=== PATIENT | female | born 1960 | race Caucasian/White ===

== ENCOUNTER 2018-01-30 15:20 | Inpatient (IN) | payer MEDICARE, MEDICAID ==
--- NOTE | 2018-01-30 15:42 | ED Physician Chart ---
ED Chief Complaint/HPI - Patient Information Date Seen:: 01/30/18 Time Seen:: 15:30 Chief Complaint:: AMS History of Present Illness:: onset x 2 days of AMS with abnormal lab tests this am; no report of trauma, H/As , neck pain, C/P, SOB, Abd. Pain, A/N/V/D/C, fever, chills, or urinary s/s Allergies:: Allergies Allergy/AdvReac Type Severity Reaction Status Date / Time No Known Allergies Allergy Verified 01/30/18 15:37 Historian:: Patient, EMS Review:: Nurse's Note Reviewed, Old Chart Reviewed, EMS run form Reviewed ED Review of Systems - Review of Systems General/Constitutional: No fever, No chills, No weight loss, No weakness, No diaphoresis, No edema, No loss of appetite Skin: No skin lesions, No rash, No bruising Head: No headache, No light-headedness Eyes: No loss of vision, No pain, No diplopia ENT: No earache, No nasal drainage, No sore throat, No tinnitus Neck: No neck pain, No swelling, No thyromegaly, No stiffness, No mass noted Cardio Vascular: No chest pain, No palpitations, No PND, No orthopnea, No edema Pulmonary: No SOB, No cough, No sputum, No wheezing GI: No nausea, No vomiting, No diarrhea, No pain, No melena, No hematochezia, No constipation, No hematemesis G/U: No dysuria, No frequency, No hematuria, No nacturia Kit Assembler: No vaginal discharge, No abnormal vaginal bleed, No contraction Musculoskeletal: No bone or joint pain, No back pain, No muscle pain Endocrine: No polyuria, No polydipsia Psychiatric: No prior psych history, No depression, No anxiety, No suicidal ideation, No homicidal ideation, No auditory hallucination, No visual hallucination Hematopoietic: No bruising, No lymphadenopathy Allergic/Immuno: No urticaria, No angioedema Neurological: No syncope, No focal symptoms, No weakness, No paresthesia, No headache, No seizure, No dizziness, Confusion, No vertigo ED Past Medical History - Past Medical History Obtainable: Yes Past Medical History: HTN, CAD, Asthma/COPD, CVA/TIA, Dyslipidemia, PUD/GERD, Arthritis, Dementia Family History: Diabetes Melitus, HTN Social History: Non Smoker, No Alcohol, No Drug Use, Single, Care Facility Surgical History: PEG/GTube Psychiatricy History: Dementia Medication: Reviewed ED Physical Exam - Physical Examination General/Constitutional: Awake, Well-developed, well-nourished, Alert, No distress, GCS 15, Non-toxic appearing, Ambulatory Head: Atraumatic Eyes: Lids, conjuctiva normal, PERRL, EOMI Skin: Nl inspection, No rash, No skin lesions, No ecchymosis, Well hydrated, No lymphadenopathy Other Skin comments:: + Cellulitis with gangrene ENMT: External ears, nose nl, TM canals nl, Nasal exam nl, Lips, teeth, gums nl , Oropharynx nl, Tonsils nl Neck: Nontender, Full ROM w/o pain, No JVD, No nuchal rigidity, No bruit, No mass, No stridor Respiratory: Nl effort/Exclusion, Clear to Auscultation, No Wheeze/Rhonchi/Rales Cardio Vascular: RRR, No murmur, gallop, rubs, NL S1 S2, Carotid/Femoral/Distal pulses equal bilaterally GI: No tenderness/rebounding/guarding, No organomegaly, No hernia, Normal BS's, Nondistended, No mass/bruits, No McBurney tenderness : No CVA tenderness Extremities: No tenderness or effusion, Full ROM, normal strength in all extremities, No edema, Normal digits & nails Neuro/Psych: Alert/oriented, DTR's symmetric, Normal sensory exam, Normal motor strength, Judgement/insight normal, Mood normal, Normal gait, No focal deficits Misc: Normal back, No paraspinal tenderness ED Septic Shock - . Is Septic Shock (SBP<90, OR Lactate>4 mmol\L) present?: No
[2018-01-30 16:22] LABS: % BASOPHILS 1.5 % (0.0-2.0); % EOSINOPHILS 0.9 % (0.0-5.0); % LYMPHOCYTES 15.9 % (20.0-50.0); % MONOCYTES 5.5 % (2.0-10.0); % NEUTROPHILS 76.2 % (40.0-80.0); BASOPHILE ABSOLUTE 0.1 Th/cumm (0-0.2); HEMATOCRIT 23.4 % (41.0-60); LYMPHOCYTE ABSOLUTE 0.7 Th/cmm (1.5-3.0); MEAN CELL VOLUME 79.9 fl (81-100); MEAN CORPUSCULAR HEMOGLOBIN 25.7 pg (27.0-31.0); MEAN CORPUSCULAR HGB CONC 32.2 pg (28.0-36.0); MEAN PLATELET VOLUME 6.7 fl; MONOCYTE ABSOLUTE 0.2 Th/cmm (0.3-1.0); NEUTROPHILE ABSOLUTE 3.4 Th/cmm (1.8-8.0); PLATELET COUNT 310 Th/cmm (150-400); RED BLOOD COUNT 2.92 Mil/cmm (3.80-5.10); RED CELL DISTRIBUTION WIDTH 21.1 % (11.5-20.0); WHITE BLOOD COUNT 4.4 Th/cmm (4.8-10.8)
[2018-01-30 16:30] LABS: INR 1.06 (0.5-1.4)
[2018-01-30 17:09] LABS: TROP I 0.02 ng/mL (0.01-0.05)
[2018-01-30 17:21] LABS: ALB/GLOB RATIO 0.7 (1.0-1.8); ALBUMIN 2.5 gm/dL (3.7-5.3); ALKALINE PHOSPHATASE 109 U/L (34-104); ANION GAP 5.6 (7.0-16.0); BILIRUBIN,TOTAL 0.7 mg/dL (0.3-1.0); BUN - UREA NITROGEN 12 mg/dL (7-25); CALCIUM SERUM 8.4 mg/dL (8.6-10.3); CARBON DIOXIDE 40.5 mEq/L (21.0-31.0); CHLORIDE 94 mEq/L (98-107); CREATININE - SERUM 0.3 mg/dL (0.6-1.2); CREATININE KINASE 39 U/L (30-223); GFR AFRICAN-AMERICAN > 60.0 ml/min (>90); GFR NON AFRICAN-AMERICAN > 60.0 ml/min; GLUCOSE 85 mg/dL (70-105); POTASSIUM SERUM 3.1 mEq/L (3.5-5.1); SGOT 19 U/L (13-39); SGPT/ALT 26 U/L (7-52); SODIUM SERUM 137 mEq/L (136-145); TOTAL PROTEIN,SERUM 6.3 gm/dL (6.0-8.3)
[2018-01-30 17:25] LABS: HEMOGLOBIN 7.5 gm/dL (12-16)
[2018-01-30] MEDS ORDERED: Potassium Chloride Elixir 20 mEq /15 mL UDC GT ONE (18:03)
[2018-01-30] MEDS ORDERED: Potassium Chloride Elixir 20 mEq /15 mL UDC ONE (18:17)
[2018-01-30 18:23] LABS: URINE MICROSCOPIC INDICATED? YES; URINE SOURCE MIDSTREAM
[2018-01-30 18:32] LABS: URINE BILIRUBIN NEGATIVE (NEGATIVE); URINE BLOOD NEGATIVE (NEGATIVE); URINE GLUCOSE (UA) NEGATIVE (NEGATIVE); URINE KETONE NEGATIVE (NEGATIVE); URINE LEUKOCYTE ESTERASE NEGATIVE (NEGATIVE); URINE NITRATE NEGATIVE (NEGATIVE); URINE PH 8.5 (4.6 - 8.0); URINE PROTEIN NEGATIVE (NEGATIVE); URINE UROBILINOGEN >=8.0 E.U./dL (0.2 - 1.0)
[2018-01-30 19:00] LABS: URINE CLARITY CLEAR (CLEAR); URINE COLOR YELLOW
[2018-01-30 19:03] LABS: URINE BACTERIA NONE SEEN /hpf (NONE SEEN); URINE EPITHELIAL CELLS NONE SEEN /lpf (FEW); URINE RBC NONE SEEN /hpf (0-5); URINE WBC NONE SEEN /hpf (0-5)
[2018-01-30] MEDS ORDERED: Albuterol/Ipratropium Neb 3 ML AERS HHN PRN (21:11)
[2018-01-30] MEDS ORDERED: Acetaminophen 500 MG TAB PO PRN ×2 (21:16→22:03)
[2018-01-30] MEDS ORDERED: ONDANSETRON HCL GT PRN (22:03)
[2018-01-30] MEDS ORDERED: Magnesium Hydroxide (MOM) 30 mL UDC GT PRN (22:03)
[2018-01-30] MEDS ORDERED: Hydrocodone/APAP 10 mg/325 mg Tab GT PRN (22:03)
[2018-01-30] MEDS ORDERED: Acetaminophen 500 MG TAB GT PRN (22:03)
[2018-01-30] MEDS ORDERED: Lactulose 10 Gm/15 mL 30mL UDC PO PRN (22:03)
[2018-01-30 23:15] LABS: WHITE BLOOD COUNT 4.3 Th/cmm (4.8-10.8)
[2018-01-30] MEDS: Albuterol/Ipratropium Neb 3 ML AERS HHN SCH (23:18)
[2018-01-30 23:20] LABS: HEMATOCRIT 23.3 % (41.0-60); MEAN CORPUSCULAR HEMOGLOBIN 26.4 pg (27.0-31.0); MEAN PLATELET VOLUME 6.6 fl; PLATELET COUNT 324 Th/cmm (150-400); RED BLOOD COUNT 2.92 Mil/cmm (3.80-5.10); RED CELL DISTRIBUTION WIDTH 21.7 % (11.5-20.0)
[2018-01-30 23:22] LABS: HEMOGLOBIN 7.7 gm/dL (12-16); MANUAL DIFF REQUIRED? YES
[2018-01-30] MEDS: Hydrocodone/APAP 10 mg/325 mg Tab GT PRN (23:41)
[2018-01-31] MEDS: Chlorhexidine Gluconate 0.12% 480mL Bottle MM SCH ×3 (00:03→21:45)
[2018-01-31] MEDS: Albuterol/Ipratropium Neb 3 ML AERS HHN SCH ×4 (01:00→18:35)
[2018-01-31 03:05] LABS: BAND NEUTROPHILE 3 % (0-10); EOSINOPHIL 1 % (0-5); LYMPHOCYTE 10 % (20-50); MONOCYTE 6 % (2-10); NEUTROPHILS 80 % (40-80); PLATELET ESTIMATE ADEQUATE (NORMAL); TOTAL CELLS COUNTED 100
[2018-01-31 03:06] LABS: HYPOCHROMIA 1+; OVALOCYTES 1+
[2018-01-31 04:14] VITALS: BP 126/64
[2018-01-31] MEDS ORDERED: Pneumococcal Vaccine 0.5 mL Vial IM ONE (04:42)
[2018-01-31 07:19] LABS: ALB/GLOB RATIO 0.6 (1.0-1.8); ALBUMIN 2.4 gm/dL (3.7-5.3); ALKALINE PHOSPHATASE 105 U/L (34-104); ANION GAP 7.6 (7.0-16.0); BILIRUBIN,TOTAL 0.7 mg/dL (0.3-1.0); BUN - UREA NITROGEN 15 mg/dL (7-25); CALCIUM SERUM 8.4 mg/dL (8.6-10.3); CARBON DIOXIDE 38.1 mEq/L (21.0-31.0); CHLORIDE 93 mEq/L (98-107); CREATININE - SERUM 0.3 mg/dL (0.6-1.2); GFR AFRICAN-AMERICAN > 60.0 ml/min (>90); GFR NON AFRICAN-AMERICAN > 60.0 ml/min; GLUCOSE 104 mg/dL (70-105); POTASSIUM SERUM 3.7 mEq/L (3.5-5.1); SGOT 16 U/L (13-39); SGPT/ALT 23 U/L (7-52); SODIUM SERUM 135 mEq/L (136-145); TOTAL PROTEIN,SERUM 6.2 gm/dL (6.0-8.3)
[2018-01-31 07:34] LABS: % BASOPHILS 0.5 % (0.0-2.0); % LYMPHOCYTES 25.7 % (20.0-50.0); % NEUTROPHILS 66.8 % (40.0-80.0); HEMATOCRIT 22.6 % (41.0-60); HEMOGLOBIN 8.1 gm/dL (12-16); LYMPHOCYTE ABSOLUTE 1.2 Th/cmm (1.5-3.0); MEAN CELL VOLUME 85.5 fl (81-100); MEAN CORPUSCULAR HEMOGLOBIN 30.5 pg (27.0-31.0); MEAN CORPUSCULAR HGB CONC 35.7 pg (28.0-36.0); MEAN PLATELET VOLUME 7.2 fl; MONOCYTE ABSOLUTE 0.3 Th/cmm (0.3-1.0); NEUTROPHILE ABSOLUTE 3.2 Th/cmm (1.8-8.0); PLATELET COUNT 343 Th/cmm (150-400); RED BLOOD COUNT 2.64 Mil/cmm (3.80-5.10); RED CELL DISTRIBUTION WIDTH 22.3 % (11.5-20.0); WHITE BLOOD COUNT 4.7 Th/cmm (4.8-10.8)
--- NOTE | 2018-01-31 07:47 | Diagnostic Imaging Report ---
CHEST X-RAY: AP view INDICATION: pain COMPARISON: None FINDINGS: Chronic lung changes are seen with superimposed bilateral infiltrates greatest along the right mid lung zone. Small effusions are noted. Heart size is at the upper limits of normal. Tracheostomy tube is noted. Postsurgical changes of the neck are noted. Degenerative changes spine are noted with mild scoliosis. Old right sixth rib fracture is noted. IMPRESSION: Chronic lung changes with superimposed diffuse infiltrates, greatest along the right midlung with small bilateral effusions. Borderline prominent heart.
[2018-01-31] MEDS: Hydrocodone/APAP 10 mg/325 mg Tab GT PRN ×2 (08:30→18:41)
[2018-01-31] MEDS ORDERED: Fleet Enema 135 mL RC PRN (08:49)
[2018-01-31] MEDS ORDERED: Albuterol/Ipratropium Neb 3 ML AERS HHN SCH (09:00)
[2018-01-31] MEDS ORDERED: Ascorbic Acid 500 mg/5 mL UDC GT SCH (09:00)
[2018-01-31] MEDS ORDERED: [UNRECOGNIZED DRUG - OTHER] RC SCH (09:00)
[2018-01-31] MEDS: Pantoprazole 40 mg EC Tab PO SCH (10:01)
[2018-01-31] MEDS: Multivitamin w/ Minerals 15 mL UDC GT SCH (10:01)
[2018-01-31] MEDS: POLYETHYLENE GLYCOL 3350 17 GM PACK GT SCH (10:02)
--- NOTE | 2018-01-31 14:41 | Internal Medicine Prog Note ---
Internal Medicine Subjective - Subjective Service Date: 01/31/18 ([facility] DICTATED [id number]) Internal Medicine Objective - Results Result Diagrams: 01/31/18 06:00 01/31/18 06:00 Recent Labs: Laboratory Last Values WBC 4.7 Th/cmm (4.8-10.8) L 01/31/18 06:00 RBC 2.64 Mil/cmm (3.80-5.10) L 01/31/18 06:00 Hgb 8.1 gm/dL (12-16) L 01/31/18 06:00 Hct 22.6 % (41.0-60) L 01/31/18 06:00 MCV 85.5 fl (81-100) 01/31/18 06:00 MCH 30.5 pg (27.0-31.0) 01/31/18 06:00 MCHC Differential 35.7 pg (28.0-36.0) 01/31/18 06:00 RDW 22.3 % (11.5-20.0) H 01/31/18 06:00 Plt Count 343 Th/cmm (150-400) 01/31/18 06:00 MPV 7.2 fl 01/31/18 06:00 Neutrophils % 66.8 % (40.0-80.0) 01/31/18 06:00 Band Neutrophils % 3 % (0-10) 01/30/18 23:10 Lymphocytes % 25.7 % (20.0-50.0) 01/31/18 06:00 Monocytes % 6.0 % (2.0-10.0) 01/31/18 06:00 Eosinophils % 1.0 % (0.0-5.0) 01/31/18 06:00 Basophils % 0.5 % (0.0-2.0) 01/31/18 06:00 Neutrophils (Manual) 80 % (40-80) 01/30/18 23:10 Lymphocytes 10 % (20-50) L 01/30/18 23:10 Monocytes 6 % (2-10) 01/30/18 23:10 Eosinophils 1 % (0-5) 01/30/18 23:10 Hypochromia 1+ 01/30/18 23:10 Platelet Estimate ADEQUATE (NORMAL) 01/30/18 23:10 Ovalocytes 1+ 01/30/18 23:10 PT 11.0 SECONDS (9.5-11.5) 01/30/18 16:06 INR 1.06 (0.5-1.4) 01/30/18 16:06 PTT (Actin FS) 31.0 SECONDS (26.0-38.0) 01/30/18 16:06 Sodium 135 mEq/L (136-145) L 01/31/18 06:00 Potassium 3.7 mEq/L (3.5-5.1) 01/31/18 06:00 Chloride 93 mEq/L (98-107) L 01/31/18 06:00 Carbon Dioxide 38.1 mEq/L (21.0-31.0) H 01/31/18 06:00 Anion Gap 7.6 (7.0-16.0) 01/31/18 06:00 BUN 15 mg/dL (7-25) 01/31/18 06:00 Creatinine 0.3 mg/dL (0.6-1.2) L 01/31/18 06:00 Est GFR ( Amer) > 60.0 ml/min (>90) 01/31/18 06:00 Est GFR (Non-Af Amer) > 60.0 ml/min 01/31/18 06:00 BUN/Creatinine Ratio 50.0 01/31/18 06:00 Glucose 104 mg/dL (70-105) 01/31/18 06:00 Whole Bld Lactic Acid 0.86 mmol/L (0.60-1.99) 01/30/18 16:06 Calcium 8.4 mg/dL (8.6-10.3) L 01/31/18 06:00 Total Bilirubin 0.7 mg/dL (0.3-1.0) 01/31/18 06:00 AST 16 U/L (13-39) 01/31/18 06:00 ALT 23 U/L (7-52) 01/31/18 06:00 Alkaline Phosphatase 105 U/L (34-104) H 01/31/18 06:00 Creatine Kinase 39 U/L (30-223) 01/30/18 16:06 Troponin I 0.02 ng/mL (0.01-0.05) 01/30/18 16:06 Total Protein 6.2 gm/dL (6.0-8.3) 01/31/18 06:00 Albumin 2.4 gm/dL (3.7-5.3) L 01/31/18 06:00 Globulin 3.8 gm/dL 01/31/18 06:00 Albumin/Globulin Ratio 0.6 (1.0-1.8) L 01/31/18 06:00 Urine Source MIDSTREAM 01/30/18 18:13 Urine Color YELLOW 01/30/18 18:13 Urine Clarity CLEAR (CLEAR) 01/30/18 18:13 Urine pH 8.5 (4.6 - 8.0) 01/30/18 18:13 Ur Specific [place] 1.010 (1.005-1.030) 01/30/18 18:13 Urine Protein NEGATIVE mg/dL (NEGATIVE) 01/30/18 18:13 Urine Glucose (UA) NEGATIVE mg/dL (NEGATIVE) 01/30/18 18:13 Urine Ketones NEGATIVE mg/dL (NEGATIVE) 01/30/18 18:13 Urine Blood NEGATIVE (NEGATIVE) 01/30/18 18:13 Urine Nitrate NEGATIVE (NEGATIVE) 01/30/18 18:13 Urine Bilirubin NEGATIVE (NEGATIVE) 01/30/18 18:13 Urine Urobilinogen >=8.0 E.U./dL (0.2 - 1.0) H 01/30/18 18:13 Ur Leukocyte Esterase NEGATIVE (NEGATIVE) 01/30/18 18:13 Urine RBC NONE SEEN /hpf (0-5) 01/30/18 18:13 Urine WBC NONE SEEN /hpf (0-5) 01/30/18 18:13 Ur Epithelial Cells NONE SEEN /lpf (FEW) 01/30/18 18:13 Urine Bacteria NONE SEEN /hpf (NONE SEEN) 01/30/18 18:13 Blood Type O POSITIVE 01/30/18 16:06 Antibody Screen NEGATIVE 01/30/18 16:06 Crossmatch See Detail 01/30/18 16:06 - Physical Exam Vitals and I&O: Vital Signs Temp 98.4 F 01/31/18 11:58 Pulse 84 01/31/18 13:49 Resp 19 01/31/18 13:49 BP 95/60 01/31/18 11:58 Pulse Ox 94 01/31/18 13:49 Intake & Output 01/30/18 01/31/18 01/31/18 18:59 06:59 18:59 Intake Total 550 Balance 550 Weight (lbs) 126 lb Intake: Tube Feeding 350 Other 200 Other: # Voids 3 # Bowel Movements 0 Stool Characteristics Soft Weight Source Bedscale Active Medications: Current Medications Acetaminophen (Tylenol Extra Strength) 500 mg PO Q6H PRN PRN Reason: Pain (Mild)/Fever Above 101 Stop: 03/31/18 21:15 Acetaminophen (Tylenol Extra Strength) 500 mg GT Q6H PRN PRN Reason: Pain (Mild) Stop: 03/31/18 22:02 Acetaminophen (Tylenol Extra Strength) 500 mg PO Q6HR PRN PRN Reason: Fever > 101 Stop: 03/31/18 22:02 Acetaminophen/Hydrocodone Bitart ([place] 10 Mg/325 Mg) 1 tab GT Q6H PRN PRN Reason: Pain (Moderate) Stop: 03/31/18 21:14 Last Admin: 01/30/18 23:41 Dose: 1 tab Albuterol/Ipratropium (Duoneb Neb) 3 ml HHN Q6HRT COUNTS INCLUDE 234 BEDS AT THE [facility] Stop: 04/01/18 00:00 Last Admin: 01/31/18 13:49 Dose: 3 ml Albuterol/Ipratropium (Duoneb Neb) 3 ml HHN Q2H PRN PRN Reason: Wheezing Stop: 03/31/18 21:10 Albuterol/Ipratropium (Duoneb Neb) 3 ml HHN QIDRT COUNTS INCLUDE 234 BEDS AT THE [facility] Stop: 04/01/18 08:59 Ascorbic Acid (Vitamin C) 500 mg GT DAILY COUNTS INCLUDE 234 BEDS AT THE [facility] Stop: 04/01/18 08:59 Last Admin: 01/31/18 10:01 Dose: 500 mg Bisacodyl (Dulcolax 10 Mg Supp) 10 mg RC Q6H PRN PRN Reason: Constipation Stop: 03/31/18 22:02 Calcium Carbonate (Os-Vidal) 500 mg GT Q6H PRN PRN Reason: GI Upset Stop: 03/31/18 22:02 Last Admin: 01/31/18 10:01 Dose: 500 mg Chlorhexidine Gluconate (Peridex) 15 ml MM Q12H COUNTS INCLUDE 234 BEDS AT THE [facility] Stop: 03/31/18 21:59 Last Admin: 01/31/18 10:02 Dose: 15 ml Docusate Sodium (Colace) 100 mg PO BID PRN PRN Reason: Constipation Stop: 03/31/18 22:02 Lactulose (Cephulac) 20 gm PO DAILY PRN PRN Reason: Constipation Stop: 03/31/18 22:02 Magnesium Hydroxide (Milk Of Magnesia) 30 ml GT DAILY PRN PRN Reason: Constipation Stop: 03/31/18 22:02 Methadone HCl (Methadone) 10 mg PO DAILY MADHURI Stop: 04/01/18 11:14 Metoclopramide HCl (Reglan) 5 mg GT Q6H MADHURI Stop: 03/31/18 21:14 Last Admin: 01/31/18 09:59 Dose: 5 mg Multivitamins/Minerals (Theragran M) 15 ml GT DAILY MADHURI Stop: 04/01/18 08:59 Last Admin: 01/31/18 10:01 Dose: 15 ml Nitroglycerin (Nitrostat) 0.4 mg SL Q5MIN PRN PRN Reason: Chest Pain Stop: 03/31/18 22:02 Ondansetron HCl (Zofran Odt) 4 mg PO Q6H PRN PRN Reason: NAUSEA Stop: 04/01/18 08:47 Pantoprazole Sodium (Protonix) 40 mg PO DAILY MADHURI Stop: 04/01/18 08:59 Last Admin: 01/31/18 10:01 Dose: 40 mg Polyethylene Glycol (Miralax) 17 gm GT DAILY MADHURI Stop: 04/01/18 08:59 Last Admin: 01/31/18 10:02 Dose: 17 gm Sodium Phosphate (Fleet Enema) 135 ml RC DAILY PRN PRN Reason: CONSTIPATION Stop: 04/01/18 08:48 Zinc Sulfate (Zinc Sulfate) 220 mg GT DAILY MADHURI Stop: 04/01/18 08:59 Last Admin: 01/31/18 10:00 Dose: 220 mg Zolpidem Tartrate (Ambien) 5 mg GT HS PRN PRN Reason: Insomnia Stop: 03/31/18 21:11 Last Admin: 01/31/18 02:06 Dose: 5 mg Zolpidem Tartrate (Ambien) 5 mg GT HS PRN PRN Reason: Insomnia Stop: 03/31/18 22:02
--- NOTE | 2018-01-31 16:20 | History & Physical ---
ADMIT DATE: 01/30/2018 CHIEF COMPLAINT: Low hemoglobin and hematocrit. HISTORY OF PRESENT ILLNESS: This is a 57-year-old female who is a subacute resident who was admitted to the Telemetry Unit due to abnormal lab results. In the ER, patient was found to have a hemoglobin of 7.5, hematocrit 23.4. The patient was not transfused. The patient's H and H improved. The patient denies any fevers or any chills or any dizziness. PAST MEDICAL HISTORY: Acute respiratory failure, hypertension, CAD, asthma, COPD, history of CVA, TIA, dyslipidemia, GERD, arthritis, dementia. FAMILY HISTORY: Noncontributory. SOCIAL HISTORY: The patient is a subacute resident. SURGICAL HISTORY: PEG and tracheostomy. MEDICATIONS: Please see medication sheet. REVIEW OF SYSTEMS: GENERAL: Denies any fevers and chills. CARDIOVASCULAR: Denies chest pain. RESPIRATORY: Denies shortness of breath. GASTROINTESTINAL: Denies nausea, vomiting, abdominal pain. GENITOURINARY: Denies increased frequency or dysuria. NEUROLOGIC: No headaches, seizures, or syncope. All other systems are reviewed and are negative. PHYSICAL EXAMINATION: GENERAL: An elderly female, awake, alert, in no apparent distress. VITAL SIGNS: Temperature 99.4, heart rate 66, blood pressure 95/60, respirations 17, O2 99%. HEENT: Head; normocephalic, atraumatic. NECK: Supple. No mass. LUNGS: Rhonchi bilaterally. HEART: . ABDOMEN: Soft, nontender. LABORATORY DATA: WBC 4.7, H and H of 8.1 and 22.6, platelet of 343. Sodium 135, potassium 3.7, chloride 93, BUN 15, creatinine 0.3. ASSESSMENT: Anemia, acute respiratory failure, hypertension, coronary artery disease, dyslipidemia, gastroesophageal reflux disease, dementia. PLAN: We will get pulmonology on the case. Monitor the patient's H and H closely. We will get GI to see the patient. We will continue to follow this patient. JOB# [id number]
--- NOTE | 2018-01-31 17:07 | Consultation ---
DATE OF CONSULTATION: 01/31/2018 PATIENT OF: Dr. Kearns. Thank you very much Dr. Kearns for this consultation. HISTORY OF PRESENT ILLNESS: This is a 57-year-old female known to me from last admission to [facility]. The patient has history of pharyngeal cancer status post tracheostomy and history of COPD. The patient was treated for pneumonia, respiratory failure, ____ weaned off the ventilator. She did have swallow evaluation, but did not pass, so now she is in jail on trach collar, speaking valve, and on G-tube feeding. The patient was admitted for anemia and which has improved today up to 8.1. The patient denies any shortness of breath, no congestion, able to talk with a speaking valve through the trach T-bar. SOCIAL HISTORY: Smoking for many years, quit just recently after surgery. REVIEW OF SYSTEMS: GENERAL: Some weakness. No fatigue. CARDIOVASCULAR: No chest pain, no palpitation. RESPIRATORY: No shortness of breath. GASTROINTESTINAL: No nausea, no vomiting. PHYSICAL EXAMINATION: GENERAL: Awake, alert, not in acute distress. VITAL SIGNS: Temperature 97.8, pulse 70, respiration 20, blood pressure 94/54, and O2 saturation 100%. HEENT: Atraumatic, normocephalic. Pupils are equal and reactive to light and accommodation. Ears, nose and throat normal. NECK: Supple. No JVD. CHEST: There are good breath sounds, few rhonchi. HEART: Regular rate and rhythm. No murmurs. ABDOMEN: Soft. No tenderness. EXTREMITIES: No edema. LABORATORY DATA: WBC is 4.7, hemoglobin 8.1, hematocrit 22.6, and platelets 343. Sodium 135, potassium 3.7, BUN is 15, and creatinine 0.3. The chest x-ray showed some chronic COPD changes and has little bit of an infiltrate. IMPRESSION: 1. This is a 57-year-old female with chronic respiratory failure. 2. Chronic obstructive pulmonary disease. 3. Pharyngeal cancer, status post tracheostomy. 4. Anemia. PLAN: 1. Continue tracheostomy care. 2. Nebulizer. 3. Might benefit from a followup CT at one point for further evaluation. Thank you very much. We will follow the patient with you. JOB# [id number]
[2018-01-31 21:52] LABS: ABSOLUTE RETICULOCYTE 97.7 Th/cmm; CORRECTED RETICULOCYTE COUNT 1.9 % (0.5-1.5); HEMATOCRIT 22.6 % (33.0-45.0); RBC RETICULOCYTE COUNT 2.64 Mil/cmm; RETICULOCYTES % COUNTED 3.7 % (0.5-1.5)
[2018-02-01] MEDS: Albuterol/Ipratropium Neb 3 ML AERS HHN SCH ×4 (00:16→19:39)
[2018-02-01 06:53] LABS: % BASOPHILS 1.4 % (0.0-2.0); % EOSINOPHILS 1.1 % (0.0-5.0); % LYMPHOCYTES 27.2 % (20.0-50.0); % MONOCYTES 5.3 % (2.0-10.0); BASOPHILE ABSOLUTE 0.1 Th/cumm (0-0.2); HEMATOCRIT 22.8 % (41.0-60); MEAN CELL VOLUME 82.9 fl (81-100); MEAN CORPUSCULAR HEMOGLOBIN 27.6 pg (27.0-31.0); MEAN CORPUSCULAR HGB CONC 33.3 pg (28.0-36.0); MEAN PLATELET VOLUME 7.4 fl; MONOCYTE ABSOLUTE 0.2 Th/cmm (0.3-1.0); NEUTROPHILE ABSOLUTE 2.5 Th/cmm (1.8-8.0); PLATELET COUNT 347 Th/cmm (150-400); RED BLOOD COUNT 2.75 Mil/cmm (3.80-5.10); RED CELL DISTRIBUTION WIDTH 22.1 % (11.5-20.0); WHITE BLOOD COUNT 3.8 Th/cmm (4.8-10.8)
[2018-02-01 07:02] LABS: HEMOGLOBIN 7.6 gm/dL (12-16)
[2018-02-01 07:10] LABS: ALB/GLOB RATIO 0.6 (1.0-1.8); ALBUMIN 2.4 gm/dL (3.7-5.3); ALKALINE PHOSPHATASE 99 U/L (34-104); ANION GAP 9.5 (7.0-16.0); BILIRUBIN,TOTAL 0.6 mg/dL (0.3-1.0); BUN - UREA NITROGEN 17 mg/dL (7-25); CALCIUM SERUM 8.5 mg/dL (8.6-10.3); CARBON DIOXIDE 33.3 mEq/L (21.0-31.0); CHLORIDE 95 mEq/L (98-107); CREATININE - SERUM 0.3 mg/dL (0.6-1.2); GFR AFRICAN-AMERICAN > 60.0 ml/min (>90); GFR NON AFRICAN-AMERICAN > 60.0 ml/min; GLUCOSE 71 mg/dL (70-105); POTASSIUM SERUM 3.8 mEq/L (3.5-5.1); SGOT 18 U/L (13-39); SGPT/ALT 21 U/L (7-52); SODIUM SERUM 134 mEq/L (136-145); TOTAL PROTEIN,SERUM 6.5 gm/dL (6.0-8.3)
--- NOTE | 2018-02-01 07:37 | Diagnostic Imaging Report ---
CT Chest without IV contrast HISTORY: Mass COMPARISON: Chest x-ray performed on 01/30/2018. Technique: Axial images were obtained from the base of the neck to the upper abdomen without IV contrast. Reconstructions were made. Total DLP 201 CTD I 4.9 Findings: Exam is limited due to lack of IV contrast. A tracheostomy tube is noted. No definite evidence of mediastinal lymphadenopathy. Mild atherosclerotic vascular disease is noted. Heart size is normal.. No pericardial effusion identified. No evidence of an aortic aneurysm. Chronic COPD changes are seen throughout the lungs with multifocal bilateral pulmonary infiltrates and severe left lower lobe consolidative changes and air bronchograms. Small effusions are noted bilaterally. The upper abdomen demonstrates a partially visualized distended gallbladder. There appears to be ascites. Anasarca is noted. G-tube is noted. Degenerative changes of the spine are noted. IMPRESSION: Diffuse bilateral pulmonary infiltrates/pneumonia with severe left lower lobe consolidative changes and air bronchograms. Small bilateral effusions. COPD lung changes. Mild atherosclerotic vascular disease Anasarca. Partially visualized ascites. Distended gallbladder, consider follow-up ultrasound G-tube noted.
[2018-02-01 08:11] LABS: IRON LC 25 ug/dL (27-159); TIBC (LC) 117 ug/dL (250-450); UIBC 92 ug/dL (131-425)
[2018-02-01] MEDS: Pantoprazole 40 mg EC Tab PO SCH (08:51)
[2018-02-01] MEDS: POLYETHYLENE GLYCOL 3350 17 GM PACK GT SCH (08:51)
[2018-02-01] MEDS: Hydrocodone/APAP 10 mg/325 mg Tab GT PRN ×2 (10:35→23:32)
[2018-02-01] MEDS: Multivitamin w/ Minerals 15 mL UDC GT SCH (11:13)
[2018-02-01] MEDS: Chlorhexidine Gluconate 0.12% 480mL Bottle MM SCH ×2 (12:56→21:02)
[2018-02-01 16:18] LABS: HEMATOCRIT 25.6 % (41.0-60); HEMOGLOBIN 8.3 gm/dL (12-16)
[2018-02-02] MEDS: Albuterol/Ipratropium Neb 3 ML AERS HHN SCH ×3 (02:21→11:47)
[2018-02-02 05:10] LABS: FOLIC ACID 9.8 ng/mL (>3.0)
--- NOTE | 2018-02-02 08:26 | Consultation ---
DATE OF CONSULTATION: 01/31/2018 REASON FOR CONSULTATION: Anemia and dysphagia. HISTORY OF PRESENT ILLNESS: This consult was obtained through the courtesy of Dr. Kearns for this 57-year-old, lives in subacute unit, transferred to the hospital because of severe anemia. GI consult was called in for further evaluation. The patient denies any abdominal pain. No nausea, vomiting, diarrhea, constipation, overt GI bleed. She has a G-tube for a couple of years. She had GI workup in the form of endoscopy and colonoscopy 2 years ago. PAST MEDICAL HISTORY: Respiratory failure, status post tracheostomy, hypertension, COPD, CVA, TIA, hyperlipidemia, and arthritis. PAST SURGICAL HISTORY: She had tracheostomy. She has a G-tube done endoscopically. SOCIAL HISTORY: Ex-smoker. FAMILY HISTORY: Noncontributory. ALLERGIES: No known drug allergies. MEDICATIONS: The patient is on Tylenol, albuterol, DuoNeb, vitamin C, Colace, Oscal, lactulose, milk of magnesium, methadone, Reglan, Theragran, Bactroban, Nitrostat, Zofran, Protonix, MiraLax, enemas, zinc, and Ambien. REVIEW OF SYSTEMS: As stated above. No overt GI bleeding. No weight loss. PHYSICAL EXAMINATION: GENERAL: The patient is awake, oriented to self, place, and time, in moderate distress secondary to being on a vent. VITAL SIGNS: Blood pressure is 133/107, heart rate was 85, respiratory rate was 18, and temperature was 98.4. HEAD AND NECK: Pupils reactive to light. Extraocular muscles intact. Sclerae are anicteric, conjunctivae pale. Oral cavity, no lesion. Neck showed tracheostomy. Neck supple. LUNGS: Showed bilateral rhonchi. CARDIOVASCULAR: Regular rate and rhythm. No murmur or gallop. ABDOMEN: Soft, positive bowel sounds. There is a G-tube in place. EXTREMITIES: Lower extremities, no edema. CENTRAL NERVOUS SYSTEM: The patient is cachectic looking, emaciated. LABORATORY DATA: Hemoglobin 7.5, went up to 8.1; hematocrit 22.6; and white count 3.7. Iron is 25, TIBC is 117, saturation 21%, and ferritin is 918. IMPRESSION: A 57-year-old with dysphagia and severe anemia. ASSESSMENT AND PLAN: 1. Severe anemia. This seems to be anemia of chronic disease. There is no overt gastrointestinal bleeding. The patient declined GI workup for now, so we will await stool studies. We will check also B12 and folic acid and if there is occult blood positive stools, overt bleeding, she will consider endoscopy. So meanwhile, continue current management, transfuse as needed. 2. Dysphagia. Continue tube feeding. The patient is tolerating it and further recommendations to follow. Other medical problems such as hypertension, cerebrovascular accident, respiratory failure, dysphagia, etc., as per Dr. Kearns. Thank you, Dr. Kearns for allowing me to participate in the care of the patient. If you have any further questions, please let me know. JOB# [id number]
--- NOTE | 2018-02-02 08:38 | GI Progress Note ---
Subjective - Review of Systems Subjective: DENIES GI BLEEDING Objective - Results Result Diagrams: 02/01/18 16:15 02/01/18 06:10 Recent Labs: Laboratory Last Values WBC 3.8 Th/cmm (4.8-10.8) L 02/01/18 06:10 RBC 2.75 Mil/cmm (3.80-5.10) L 02/01/18 06:10 Hgb 8.3 gm/dL (12-16) L 02/01/18 16:15 Hct 25.6 % (41.0-60) L 02/01/18 16:15 MCV 82.9 fl (81-100) 02/01/18 06:10 MCH 27.6 pg (27.0-31.0) 02/01/18 06:10 MCHC Differential 33.3 pg (28.0-36.0) 02/01/18 06:10 RDW 22.1 % (11.5-20.0) H 02/01/18 06:10 Plt Count 347 Th/cmm (150-400) 02/01/18 06:10 MPV 7.4 fl 02/01/18 06:10 Neutrophils % 65.0 % (40.0-80.0) 02/01/18 06:10 Band Neutrophils % 3 % (0-10) 01/30/18 23:10 Lymphocytes % 27.2 % (20.0-50.0) 02/01/18 06:10 Monocytes % 5.3 % (2.0-10.0) 02/01/18 06:10 Eosinophils % 1.1 % (0.0-5.0) 02/01/18 06:10 Basophils % 1.4 % (0.0-2.0) 02/01/18 06:10 Neutrophils (Manual) 80 % (40-80) 01/30/18 23:10 Lymphocytes 10 % (20-50) L 01/30/18 23:10 Monocytes 6 % (2-10) 01/30/18 23:10 Eosinophils 1 % (0-5) 01/30/18 23:10 Hypochromia 1+ 01/30/18 23:10 Platelet Estimate ADEQUATE (NORMAL) 01/30/18 23:10 Ovalocytes 1+ 01/30/18 23:10 Total Retics Counted 3.7 % (0.5-1.5) H 01/31/18 06:00 Absolute Retic 97.7 Th/cmm 01/31/18 06:00 Corrected Retic Count 1.9 % (0.5-1.5) H 01/31/18 06:00 PT 11.0 SECONDS (9.5-11.5) 01/30/18 16:06 INR 1.06 (0.5-1.4) 01/30/18 16:06 PTT (Actin FS) 31.0 SECONDS (26.0-38.0) 01/30/18 16:06 Sodium 134 mEq/L (136-145) L 02/01/18 06:10 Potassium 3.8 mEq/L (3.5-5.1) 02/01/18 06:10 Chloride 95 mEq/L (98-107) L 02/01/18 06:10 Carbon Dioxide 33.3 mEq/L (21.0-31.0) H 02/01/18 06:10 Anion Gap 9.5 (7.0-16.0) 02/01/18 06:10 BUN 17 mg/dL (7-25) 02/01/18 06:10 Creatinine 0.3 mg/dL (0.6-1.2) L 02/01/18 06:10 Est GFR ( Amer) > 60.0 ml/min (>90) 02/01/18 06:10 Est GFR (Non-Af Amer) > 60.0 ml/min 02/01/18 06:10 BUN/Creatinine Ratio 56.7 02/01/18 06:10 Glucose 71 mg/dL (70-105) 02/01/18 06:10 Whole Bld Lactic Acid 0.86 mmol/L (0.60-1.99) 01/30/18 16:06 Calcium 8.5 mg/dL (8.6-10.3) L 02/01/18 06:10 Iron 25 ug/dL (27-159) L 01/31/18 06:00 TIBC 117 ug/dL (250-450) L 01/31/18 06:00 Iron Saturation 21 % (15-55) 01/31/18 06:00 Unsaturated IBC 92 ug/dL (131-425) L 01/31/18 06:00 Ferritin 918 ng/mL (15-150) H 01/31/18 06:00 Total Bilirubin 0.6 mg/dL (0.3-1.0) 02/01/18 06:10 AST 18 U/L (13-39) 02/01/18 06:10 ALT 21 U/L (7-52) 02/01/18 06:10 Alkaline Phosphatase 99 U/L (34-104) 02/01/18 06:10 Creatine Kinase 39 U/L (30-223) 01/30/18 16:06 Troponin I 0.02 ng/mL (0.01-0.05) 01/30/18 16:06 Total Protein 6.5 gm/dL (6.0-8.3) 02/01/18 06:10 Albumin 2.4 gm/dL (3.7-5.3) L 02/01/18 06:10 Globulin 4.1 gm/dL 02/01/18 06:10 Albumin/Globulin Ratio 0.6 (1.0-1.8) L 02/01/18 06:10 Vitamin B12 957 pg/mL (232-1245) 01/31/18 06:00 Folic Acid 9.8 ng/mL (>3.0) 01/31/18 06:00 Urine Source MID[place] 01/30/18 18:13 Urine Color YELLOW 01/30/18 18:13 Urine Clarity CLEAR (CLEAR) 01/30/18 18:13 Urine pH 8.5 (4.6 - 8.0) 01/30/18 18:13 Ur Specific [place] 1.010 (1.005-1.030) 01/30/18 18:13 Urine Protein NEGATIVE mg/dL (NEGATIVE) 01/30/18 18:13 Urine Glucose (UA) NEGATIVE mg/dL (NEGATIVE) 01/30/18 18:13 Urine Ketones NEGATIVE mg/dL (NEGATIVE) 01/30/18 18:13 Urine Blood NEGATIVE (NEGATIVE) 01/30/18 18:13 Urine Nitrate NEGATIVE (NEGATIVE) 01/30/18 18:13 Urine Bilirubin NEGATIVE (NEGATIVE) 01/30/18 18:13 Urine Urobilinogen >=8.0 E.U./dL (0.2 - 1.0) H 01/30/18 18:13 Ur Leukocyte Esterase NEGATIVE (NEGATIVE) 01/30/18 18:13 Urine RBC NONE SEEN /hpf (0-5) 01/30/18 18:13 Urine WBC NONE SEEN /hpf (0-5) 01/30/18 18:13 Ur Epithelial Cells NONE SEEN /lpf (FEW) 01/30/18 18:13 Urine Bacteria NONE SEEN /hpf (NONE SEEN) 01/30/18 18:13 Blood Type O POSITIVE 01/30/18 16:06 Antibody Screen NEGATIVE 01/30/18 16:06 Crossmatch See Detail 01/30/18 16:06 - Physical Exam Vitals and I&O: Vital Signs Temp 98.2 F 02/02/18 04:00 Pulse 75 02/02/18 07:22 Resp 16 02/02/18 07:22 BP 110/77 02/02/18 04:00 Pulse Ox 94 02/02/18 07:22 Intake & Output 02/01/18 02/02/18 02/02/18 18:59 06:59 18:59 Intake Total 50 240 Balance 50 240 Weight (lbs) 57.153 kg 56.716 kg Intake: Intake, IV Amount 50 Cefepime 1 gm In Dextrose 50 5% 50 ml @ 100 mls/hr IV Q12H [facility] Rx#:[id number] Oral 240 Other: # Voids 3 3 # Bowel Movements 0 Weight Source Estimated Bedscale Active Medications: Current Medications Acetaminophen (Tylenol Extra Strength) 500 mg PO Q6H PRN PRN Reason: Pain (Mild)/Fever Above 101 Stop: 03/31/18 21:15 Acetaminophen (Tylenol Extra Strength) 500 mg GT Q6H PRN PRN Reason: Pain (Mild) Stop: 03/31/18 22:02 Acetaminophen (Tylenol Extra Strength) 500 mg PO Q6HR PRN PRN Reason: Fever > 101 Stop: 03/31/18 22:02 Acetaminophen/Hydrocodone Bitart ([place] 10 Mg/325 Mg) 1 tab GT Q6H PRN PRN Reason: Pain (Moderate) Stop: 03/31/18 21:14 Last Admin: 02/01/18 23:32 Dose: 1 tab Albuterol/Ipratropium (Duoneb Neb) 3 ml HHN Q6HRT MADHURI Stop: 04/01/18 00:00 Last Admin: 02/02/18 07:18 Dose: 3 ml Albuterol/Ipratropium (Duoneb Neb) 3 ml HHN Q2H PRN PRN Reason: Wheezing Stop: 03/31/18 21:10 Ascorbic Acid (Vitamin C) 500 mg GT DAILY MADHURI Stop: 04/02/18 12:25 Last Admin: 02/01/18 12:56 Dose: 500 mg Bisacodyl (Dulcolax 10 Mg Supp) 10 mg RC Q6H PRN PRN Reason: Constipation Stop: 03/31/18 22:02 Calcium Carbonate (Os-[place]) 500 mg GT Q6H PRN PRN Reason: GI Upset Stop: 03/31/18 22:02 Last Admin: 01/31/18 10:01 Dose: 500 mg [place] Oil/[place] Balsam/Trypsin (Venelex) 1 appl TP DAILY MADHURI Stop: 04/03/18 08:59 Chlorhexidine Gluconate (Peridex) 15 ml MM Q12H MADHURI Stop: 03/31/18 21:59 Last Admin: 02/01/18 21:02 Dose: 15 ml Docusate Sodium (Colace) 100 mg PO BID PRN PRN Reason: Constipation Stop: 03/31/18 22:02 Cefepime HCl 1 gm/ Dextrose 50 mls @ 100 mls/hr IV Q12H MADHURI Stop: 04/02/18 16:59 Last Admin: 02/02/18 05:02 Dose: 100 mls/hr Lactulose (Cephulac) 20 gm PO DAILY PRN PRN Reason: Constipation Stop: 03/31/18 22:02 Magnesium Hydroxide (Milk Of Magnesia) 30 ml GT DAILY PRN PRN Reason: Constipation Stop: 03/31/18 22:02 Methadone HCl (Methadone) 10 mg PO DAILY MADHURI Stop: 04/01/18 11:14 Last Admin: 02/01/18 08:51 Dose: 10 mg Metoclopramide HCl (Reglan) 5 mg GT Q6H MADHURI Stop: 03/31/18 21:14 Last Admin: 02/02/18 03:43 Dose: 5 mg Mupirocin (Bactroban Oint) 1 appl NS Q12HR MADHURI Stop: 02/05/18 21:01 Last Admin: 02/01/18 20:59 Dose: 1 appl Nitroglycerin (Nitrostat) 0.4 mg SL Q5MIN PRN PRN Reason: Chest Pain Stop: 03/31/18 22:02 Ondansetron HCl (Zofran Odt) 4 mg PO Q6H PRN PRN Reason: NAUSEA Stop: 04/01/18 08:47 Pantoprazole Sodium (Protonix) 40 mg PO DAILY MADHURI Stop: 04/01/18 08:59 Last Admin: 02/01/18 08:51 Dose: 40 mg Polyethylene Glycol (Miralax) 17 gm GT DAILY MADHURI Stop: 04/01/18 08:59 Last Admin: 02/01/18 08:51 Dose: 17 gm Sodium Phosphate (Fleet Enema) 135 ml RC DAILY PRN PRN Reason: CONSTIPATION Stop: 04/01/18 08:48 Zinc Sulfate (Zinc Sulfate) 220 mg GT DAILY MADHURI Stop: 04/01/18 08:59 Last Admin: 02/01/18 08:51 Dose: 220 mg Zolpidem Tartrate (Ambien) 5 mg GT HS PRN PRN Reason: Insomnia Stop: 03/31/18 21:11 Last Admin: 01/31/18 02:06 Dose: 5 mg Zolpidem Tartrate (Ambien) 5 mg GT HS PRN PRN Reason: Insomnia Stop: 03/31/18 22:02 Assessment/Plan - Assessment Assessment: 57 YO FEMALE WITH ANEMIA NO OVERT GI BLEEDING HAS G TUBE - BETTINA TUBE FEEDS 1.CONT SUPP CARE AND TUBE FEEDS 2.CHECK STOOL OB
[2018-02-02] MEDS ORDERED: Venelex 60gm Tube TP SCH (09:00)
[2018-02-02] MEDS ORDERED: Multivitamin w/ Minerals Tab GT SCH (09:00)
[2018-02-02] MEDS: POLYETHYLENE GLYCOL 3350 17 GM PACK GT SCH ×2 (09:36→10:01)
[2018-02-02] MEDS: Pantoprazole 40 mg EC Tab PO SCH (09:36)
[2018-02-02] MEDS: Hydrocodone/APAP 10 mg/325 mg Tab GT PRN (09:45)
[2018-02-02] MEDS: Chlorhexidine Gluconate 0.12% 480mL Bottle MM SCH (10:01)
--- NOTE | 2018-02-02 17:18 | Progress Notes ---
DATE: 02/02/2018 SUBJECTIVE: The patient was seen in her room lying on the bed. Per patient, she is feeling better. She denies any pain or discomfort at this time and tolerating tube feeding. Denies any bleeding. Otherwise, the patient appears to be in no acute distress. OBJECTIVE: VITAL SIGNS: Temperature 97.2, heart rate 65, blood pressure 117/51, respiration of 18, 99% on 8 liters. HEENT: Head is atraumatic and normocephalic. Eyes: Bilateral conjunctivae are clear. Bilateral pupils equal, round and reactive. NECK: Supple. No JVD. The patient has a tracheostomy. CARDIOVASCULAR: S1 and S2, without murmur. PULMONARY: Fine scattered rhonchi noted. GASTROINTESTINAL: Soft and nontender without guarding. Positive bowel sounds. MUSCULOSKELETAL: No clubbing. No cyanosis noted. ASSESSMENT: 1. Anemia. 2. Dysphagia. 3. Chronic respiratory failure. 4. Osteoarthritis. 5. Insomnia. 6. Hyperlipidemia. 7. Coronary artery disease. 8. Gastroesophageal reflux disease. PLAN: We will continue to monitor the patient's hemoglobin level and we are still pending to check for the stool OB. We will follow up with the alkylation operator. Treatment plans were discussed with the patient's nurse. Treatment plans were discussed with Dr. Kearns. JOB# [id number]
== END 2018-02-02 16:28 | DRG 871 ==
LOC: ER 15:20 → TELE 17:56
PROVIDERS: ADMIT Internal Medicine; ATTEND Internal Medicine
DX: A41.9 Sepsis, unspecified organism (principal); J96.20 Acute and chronic respiratory failure, unspecified whether with hypoxia or hypercapnia; E41 Nutritional marasmus; L03.90 Cellulitis, unspecified; D64.9 Anemia, unspecified; I10 Essential (primary) hypertension; I25.10 Atherosclerotic heart disease of native coronary artery without angina pectoris; R13.10 Dysphagia, unspecified; M19.90 Unspecified osteoarthritis, unspecified site; G47.00 Insomnia, unspecified; I25.9 Chronic ischemic heart disease, unspecified; E78.5 Hyperlipidemia, unspecified; C14.0 Malignant neoplasm of pharynx, unspecified; K21.9 Gastro-esophageal reflux disease without esophagitis; F03.90 Unspecified dementia, unspecified severity, without behavioral disturbance, psychotic disturbance, mood disturbance, and anxiety; J44.9 Chronic obstructive pulmonary disease, unspecified; Z86.73 Personal history of transient ischemic attack (TIA), and cerebral infarction without residual deficits; Z85.819 Personal history of malignant neoplasm of unspecified site of lip, oral cavity, and pharynx; Z93.1 Gastrostomy status; Z68.20 Body mass index [BMI] 20.0-20.9, adult; Z83.3 Family history of diabetes mellitus; Z82.49 Family history of ischemic heart disease and other diseases of the circulatory system; Z93.0 Tracheostomy status; Z87.891 Personal history of nicotine dependence
CPT/HCPCS: 36415-UA; 71045-TC; 71250-TC; 80053-TC; 81001-TC; 82550-TC; 82607-90; 82728-90; 82746-90; 83010-90; 83540-90; 83550-90; 83605; 84484-TC; 85007-TC; 85014-TC; 85018-TC; 85025-TC; 85027-TC; 85044-TC; 85610-TC; 85730-TC; 86850-TC; 86900-TC; 86901-TC; 86922-TC; 87070; 93005; 94640; 94664; 94760; J0692; J3370; J7040; Q0162; Z7610

== ENCOUNTER 2018-04-07 11:32 | Inpatient (IN) | payer MEDICARE, MEDICAID ==
--- NOTE | 2018-04-07 11:54 | ED Physician Chart ---
ED Chief Complaint/HPI - Patient Information Date Seen:: 04/07/18 Time Seen:: 11:49 Chief Complaint:: abn labs potassium 2.9 History of Present Illness:: 57 yr old female from [facility] non verbal anoxic encepalopathy full code vent dependent g-tube miller fever congestion possible pneumonia sepsis Allergies:: Allergies Allergy/AdvReac Type Severity Reaction Status Date / Time No Known Allergies Allergy Verified 01/30/18 15:37 Historian:: EMS, Medical Records Review:: EMS run form Reviewed ED Review of Systems - Review of Systems General/Constitutional: Fever Skin: Skin lesions (pt non verbal unable to give hx) ED Past Medical History - Past Medical History Obtainable: No (acute resp failure anoxix encepalopaty persistent hypokalemia anemia uti fu) Past Medical History: HTN, Asthma/COPD, Other (acute resp failure with trach uti funguria hx of cardiopulmonary arrest anoxic encephalopathypersistent hypokalemia anemia) Family Medical History - Family Member Mother History Unknown: Yes Hx Family Hypertension: Yes Hx Family Diabetes: Yes ED Physical Exam - Physical Examination Other Gen/Cons comments:: cachectic muscle wasted eyes open continuosly with upward gaze not moving not responding to any stimuli Head: Atraumatic ENMT: Lips, teeth, gums nl Other Respiratory comments:: vent dependant Cardio Vascular: RRR, No murmur, gallop, rubs, NL S1 S2 GI: No organomegaly, No hernia, Nondistended, No mass/bruits Extremities: No edema Misc: Normal back Other:: decubiti sacral area rt ankle ED Assessment - Assessment General Assessment: vent dependent fever sepsis hypokalemia anemia anoxic encephalopathy ED Septic Shock - . Is Septic Shock (SBP<90, OR Lactate>4 mmol\L) present?: No
[2018-04-07 12:46] LABS: HEMATOCRIT 28.3 % (41.0-60); HEMOGLOBIN 9.8 gm/dL (12-16); LYMPHOCYTE ABSOLUTE 0.3 Th/cmm (1.5-3.0); MANUAL DIFF REQUIRED? YES; MEAN CELL VOLUME 91.9 fl (81-100); MEAN CORPUSCULAR HGB CONC 34.8 pg (28.0-36.0); MEAN PLATELET VOLUME 7.7 fl; MONOCYTE ABSOLUTE 0.3 Th/cmm (0.3-1.0); NEUTROPHILE ABSOLUTE 7.6 Th/cmm (1.8-8.0); PLATELET COUNT 226 Th/cmm (150-400); RED BLOOD COUNT 3.08 Mil/cmm (3.80-5.10); RED CELL DISTRIBUTION WIDTH 16.5 % (11.5-20.0); WHITE BLOOD COUNT 8.2 Th/cmm (4.8-10.8)
[2018-04-07 12:48] LABS: URINE MICROSCOPIC INDICATED? YES; URINE SOURCE FOLEY PORT
[2018-04-07 12:59] LABS: URINE BILIRUBIN NEGATIVE (NEGATIVE); URINE BLOOD LARGE (NEGATIVE); URINE GLUCOSE (UA) NEGATIVE (NEGATIVE); URINE KETONE NEGATIVE (NEGATIVE); URINE LEUKOCYTE ESTERASE MODERATE (NEGATIVE); URINE NITRATE POSITIVE (NEGATIVE); URINE PH 6.5 (4.6 - 8.0); URINE PROTEIN 30 mg/dL (NEGATIVE)
[2018-04-07 13:00] LABS: URINE CLARITY CLOUDY (CLEAR); URINE COLOR YELLOW
[2018-04-07 13:02] LABS: INR 1.21 (0.5-1.4); PROTHROMBIN TIME (TEST) 12.7 SECONDS (9.5-11.5)
[2018-04-07 13:06] LABS: ALB/GLOB RATIO 0.9 (1.0-1.8); ALKALINE PHOSPHATASE 131 U/L (34-104); ANION GAP 11.5 (7.0-16.0); BILIRUBIN,TOTAL 0.6 mg/dL (0.3-1.0); BUN - UREA NITROGEN 49 mg/dL (7-25); CALCIUM SERUM 9.1 mg/dL (8.6-10.3); CARBON DIOXIDE 28.9 mEq/L (21.0-31.0); CHLORIDE 110 mEq/L (98-107); CREATININE - SERUM 0.3 mg/dL (0.6-1.2); GFR AFRICAN-AMERICAN > 60.0 ml/min (>90); GFR NON AFRICAN-AMERICAN > 60.0 ml/min; GLUCOSE 126 mg/dL (70-105); SGOT 12 U/L (13-39); SGPT/ALT 29 U/L (7-52); TOTAL PROTEIN,SERUM 6.4 gm/dL (6.0-8.3)
[2018-04-07 13:10] LABS: URINE BACTERIA MODERATE /hpf (NONE SEEN); URINE EPITHELIAL CELLS MODERATE /lpf (FEW); URINE WBC 50-100 /hpf (0-5)
[2018-04-07 13:12] LABS: POTASSIUM SERUM 2.4 mEq/L (3.5-5.1); SODIUM SERUM 148 mEq/L (136-145)
[2018-04-07] MEDS ORDERED: Potassium Chloride Elixir 20 mEq /15 mL UDC ONE (13:17)
[2018-04-07] MEDS ORDERED: Potassium Chloride 20 mEq ER Tab PO ONE ×3 (13:19→13:24)
[2018-04-07 13:28] LABS: BAND NEUTROPHILE 2 % (0-10); LYMPHOCYTE 3 % (20-50); MONOCYTE 4 % (2-10); NEUTROPHILS 91 % (40-80); PLATELET ESTIMATE ADEQUATE (NORMAL); TOTAL CELLS COUNTED 100
[2018-04-07] MEDS ORDERED: Piperacillin Sodium/Tazobact 3.375 gm Vial IV ONE (22:01)
--- NOTE | 2018-04-07 23:34 | Consultation ---
Consult Note - Consult Note Service Date: 04/07/18 Referring Physician: Fanny Kearns Consult Note: PHYSICIAN Consultation Note: Date of Admission: 04/07/18 Purpose of Consultation: Sepsis Lactic acidosis. Chief Complaint: Patient SOCT MENA was admitted to location Intensive Care Unit with HYPOKALEMIA,SEPSIS. History of Present Illness: 57 year female with a past medical history of vent dependent respiratory failure , hypertension, carotid disease, asthma, COPD, history of CVA, dyslipidemia, GERD, arthritis, dementia brought in from a nursing facility for fever and chest congestion. On initial evaluation, her temperature was 100.9F and WBC count was 8200. Patient was admitted to ICU and ID consult was called for antibiotic management. Patient's lactic acid was also elevated. It was 2.38, it came down to 1.39. Past Medical History: vent dependent respiratory failure, hypertension, carotid disease, asthma, COPD, history of CVA, dyslipidemia, GERD, arthritis, dementia Allergies Allergy/AdvReac Type Severity Reaction Status Date / Time No Known Allergies Allergy Verified 01/30/18 15:37 Vital Signs Temp 98.9 F 04/07/18 16:00 Pulse 97 04/07/18 23:23 Resp 22 04/07/18 18:10 BP 92/65 04/07/18 18:10 Pulse Ox 98 04/07/18 23:23 Intake & Output 04/07/18 04/07/18 04/08/18 06:59 18:59 06:59 Weight (lbs) 52.163 kg Other: Weight Source Estimated Laboratory Results - last 24 hr 04/07/18 04/07/18 04/07/18 12:42 12:42 12:42 WBC 8.2 RBC 3.08 L Hgb 9.8 L Hct 28.3 L MCV 91.9 MCH 32.0 H MCHC Differential 34.8 RDW 16.5 Plt Count 226 MPV 7.7 Band Neutrophils % 2 Neutrophils (Manual) 91 H Lymphocytes 3 L Monocytes 4 Platelet Estimate ADEQUATE PT 12.7 H INR 1.21 PTT (Actin FS) 27.2 Sodium 148 H D Potassium 2.4 L* Chloride 110 H Carbon Dioxide 28.9 Anion Gap 11.5 BUN 49 H Creatinine 0.3 L Est GFR ( Amer) > 60.0 Est GFR (Non-Af Amer) > 60.0 BUN/Creatinine Ratio 163.3 Glucose 126 H Whole Bld Lactic Acid Calcium 9.1 Total Bilirubin 0.6 AST 12 L ALT 29 Alkaline Phosphatase 131 H Troponin I Total Protein 6.4 Albumin 3.0 L Globulin 3.4 Albumin/Globulin Ratio 0.9 L Urine Source Urine Color Urine Clarity Urine pH Ur Specific [place] Urine Protein Urine Glucose (UA) Urine Ketones Urine Blood Urine Nitrate Urine Bilirubin Urine Urobilinogen Ur Leukocyte Esterase Urine RBC Urine WBC Ur Epithelial Cells Calcium Oxalate Crystal Urine Bacteria Urine Mucus 04/07/18 04/07/18 04/07/18 12:42 12:45 15:06 WBC RBC Hgb Hct MCV MCH MCHC Differential RDW Plt Count MPV Band Neutrophils % Neutrophils (Manual) Lymphocytes Monocytes Platelet Estimate PT INR PTT (Actin FS) Sodium Potassium Chloride Carbon Dioxide Anion Gap BUN Creatinine Est GFR ( Amer) Est GFR (Non-Af Amer) BUN/Creatinine Ratio Glucose Whole Bld Lactic Acid 2.38 H* Calcium Total Bilirubin AST ALT Alkaline Phosphatase Troponin I 0.05 Total Protein Albumin Globulin Albumin/Globulin Ratio Urine Source [place] Urine Color YELLOW Urine Clarity CLOUDY H Urine pH 6.5 Ur Specific [place] 1.020 Urine Protein 30 H Urine Glucose (UA) NEGATIVE Urine Ketones NEGATIVE Urine Blood LARGE H Urine Nitrate POSITIVE H Urine Bilirubin NEGATIVE Urine Urobilinogen 1.0 Ur Leukocyte Esterase MODERATE H Urine RBC 10-25 H Urine WBC 50-100 H Ur Epithelial Cells MODERATE Calcium Oxalate Crystal FEW Urine Bacteria MODERATE H Urine Mucus FEW 04/07/18 17:45 WBC RBC Hgb Hct MCV MCH MCHC Differential RDW Plt Count MPV Band Neutrophils % Neutrophils (Manual) Lymphocytes Monocytes Platelet Estimate PT INR PTT (Actin FS) Sodium Potassium Chloride Carbon Dioxide Anion Gap BUN Creatinine Est GFR ( Amer) Est GFR (Non-Af Amer) BUN/Creatinine Ratio Glucose Whole Bld Lactic Acid 1.39 Calcium Total Bilirubin AST ALT Alkaline Phosphatase Troponin I Total Protein Albumin Globulin Albumin/Globulin Ratio Urine Source Urine Color Urine Clarity Urine pH Ur Specific [place] Urine Protein Urine Glucose (UA) Urine Ketones Urine Blood Urine Nitrate Urine Bilirubin Urine Urobilinogen Ur Leukocyte Esterase Urine RBC Urine WBC Ur Epithelial Cells Calcium Oxalate Crystal Urine Bacteria Urine Mucus Home Medication Medication Instructions Recorded Type Albuterol/Ipratropium Neb [Duoneb 1 vial HHN Q6H 01/30/18 History Neb] Ondansetron HCl 1 tab GT Q6H PRN 01/30/18 History Zinc Sulfate 1 cap GT DAILY 01/30/18 History Amino Acids/Protein Hydrolys 30 ml PO DAILY 04/07/18 History [Pro-Stat Sugar Free 887 ml] Amlodipine Besylate 5 mg PO DAILY 04/07/18 History Balsam [place] Oil [Venelex 30 gm TP DAILY 04/07/18 History Ointment] Clonidine HCl [Catapres] 0.1 mg PO Q6H PRN 04/07/18 History Collagenase Clostridium Hist. 1 appl TP DAILY 04/07/18 History [Santyl] Famotidine [Pepcid] 20 mg PO Q12H 04/07/18 History Spironolactone 25 mg GT DAILY 04/07/18 History Current Medications Generic Name Dose Route Start Last Admin Trade Name Freq PRN Reason Stop Dose Admin Albuterol/Ipratropium 3 ml 04/07/18 19:00 Duoneb Neb HHN 06/06/18 18:59 Q6HRT MADHURI Amlodipine Besylate 5 mg 04/08/18 09:00 Norvasc PO 06/07/18 08:59 DAILY MADHURI [place] Oil/[place] Balsam/Trypsin 1 appl 04/08/18 09:00 Venelex TP 06/07/18 08:59 DAILY MADHURI Chlorhexidine Gluconate 15 ml 04/07/18 20:00 Peridex MM 06/06/18 19:59 0800,2000 MADHURI Piperacillin Sod/Tazobactam 100 mls @ 200 mls/hr 04/07/18 21:00 04/07/18 22: 28 Sod 3.375 gm/ Sodium Chloride IV 06/06/18 20:59 200 mls/hr Q6H MADHURI Administration Miscellaneous 1 ea 04/07/18 17:41 Zosyn Iv Per Pharmacy MC 06/06/18 17:40 PRN PRN PROTOCOL Miscellaneous 30 ml 04/08/18 09:00 Amino Acids/Protein Hydrolys [Pro-Stat Sugar Free Liquid] PO 06/07/18 08:59 DAILY MADHURI Morphine Sulfate 1 mg 04/07/18 18:24 Morphine IVP 06/06/18 18:23 Q4HR PRN Severe Pain Review of Systems: A 12 point ROS was reviewed with the pertinent positive and negatives noted in the HPI. Social History Smoking Status Former smoker Lives at the Nursing facilty. Physical Exam: General: Comfortable, on the ventilator, status post extremity. HEENT: Head: Normocytic, atraumatic. Oral cavity: Moist, pink tongue. Eyes: Pallor is present icterus. PERRLA. Neck: Tracheostomy site has yellow frothy the secretion. Cardio: S1 and S2 within normal limits regular rhythm. Respiratory: Vesicular breath sound, no crackles no wheezing. Abdominal: Soft, nontender, nondistended bowel sounds present. G-tube site is clear Genital/Urinary: Extremities: No cyanosis, no clubbing, no edema. Neurological: Alert and awake. Assessment: 1. Sepsis, lactic acidosis. 2. Pneumonia. 3. Vent dependent respiratory failure. 4. Dysphagia. Plan: Start Zosyn. Sepsis workup. Thank you, Dr Kearns for involving me in taking care of this patient. Ran Xie Devesh N., M.D. [id number]
[2018-04-08] MEDS: Albuterol/Ipratropium Neb 3 ML AERS HHN SCH ×4 (00:49→18:33)
--- NOTE | 2018-04-08 02:07 | History & Physical ---
ADMIT DATE: HISTORY OF PRESENT ILLNESS: The patient is very well known to me. An unfortunate 57-year-old female patient known to have end-stage COPD, ____ anoxic encephalopathy, history of G-tube and Culp catheter as well. The patient developed fever, shortness of breath ____ white count was elevated, had infiltrate and was sent to [facility] Emergency Room where she was reviewed by ER doctor and was admitted. The patient unable to give any history. PAST MEDICAL HISTORY: Included history of persistent hypokalemia, UTI, respiratory failure, asthma, COPD and status post cardiopulmonary arrest in the past. PHYSICAL EXAMINATION: GENERAL: The patient looks very cachectic. Opens her eyes, but does not respond. HEAD: Atraumatic. HEENT: Normal. NECK: Supple, nontender. LUNGS: Bilateral rhonchi. CARDIOVASCULAR SYSTEM: S1, S2 heard. ABDOMEN: Soft. Bowel sounds are heard. CENTRAL NERVOUS SYSTEM: Decreased sensorium. DIAGNOSES: Pneumonia, acute respiratory failure, ventilator-dependent respiratory failure, status post trach, status post PEG, anoxic encephalopathy, anemia, history of chronic obstructive pulmonary disease. PLAN: The patient is going to get antibiotics, treat her hypokalemia, treat her infection, treat her pneumonia. I will have pulmonary doctor, Dr. Mayes, and ID doctor, Dr. Tong, see the patient. I will follow the patient. JOB# [id number]
[2018-04-08 04:38] LABS: ANION GAP 9.5 (7.0-16.0); BUN - UREA NITROGEN 48 mg/dL (7-25); CALCIUM SERUM 9.1 mg/dL (8.6-10.3); CHLORIDE 113 mEq/L (98-107); CREATININE - SERUM 0.3 mg/dL (0.6-1.2); GFR AFRICAN-AMERICAN > 60.0 ml/min (>90); GFR NON AFRICAN-AMERICAN > 60.0 ml/min; GLUCOSE 175 mg/dL (70-105); POTASSIUM SERUM 3.5 mEq/L (3.5-5.1); SODIUM SERUM 148 mEq/L (136-145)
[2018-04-08 04:41] LABS: HEMATOCRIT 27.3 % (41.0-60); HEMOGLOBIN 9.3 gm/dL (12-16); MEAN CELL VOLUME 93.5 fl (81-100); MEAN CORPUSCULAR HEMOGLOBIN 31.9 pg (27.0-31.0); MEAN CORPUSCULAR HGB CONC 34.1 pg (28.0-36.0); MEAN PLATELET VOLUME 8.8 fl; PLATELET COUNT 220 Th/cmm (150-400); RED BLOOD COUNT 2.92 Mil/cmm (3.80-5.10); RED CELL DISTRIBUTION WIDTH 16.7 % (11.5-20.0)
[2018-04-08 04:46] LABS: MANUAL DIFF REQUIRED? YES; WHITE BLOOD COUNT 6.3 Th/cmm (4.8-10.8)
[2018-04-08 05:30] LABS: BAND NEUTROPHILE 2 % (0-10); EOSINOPHIL 1 % (0-5); LYMPHOCYTE 7 % (20-50); MONOCYTE 6 % (2-10); NEUTROPHILS 84 % (40-80); PLATELET ESTIMATE ADEQUATE (NORMAL); TOTAL CELLS COUNTED 100
[2018-04-08] MEDS ORDERED: Piperacillin Sodium/Tazobact 3.375 gm Vial IV ONE (06:21)
[2018-04-08] MEDS: Morphine Sulfate 2 mg/mL 1mL Syr IVP PRN ×2 (08:20→14:07)
--- NOTE | 2018-04-08 08:23 | Diagnostic Imaging Report ---
CHEST X-RAY: AP view INDICATION: Respiratory failure COMPARISON: 01/30/2018 FINDINGS: Tracheostomy tube is stable. COPD lung changes are seen with bibasal pleural thickening versus small effusions. Improving right mid lung infiltrates are noted. Hazy left lung infiltrates are noted. Skinfolds are seen along left hemithorax. No definite pneumothorax identified. Heart size is normal. Degenerative changes of the spine are noted with scoliosis. Postsurgical changes of the base of the neck are noted. Old right rib fractures are noted. IMPRESSION: COPD lung changes Improving right midlung infiltrates. Persistent hazy left lung infiltrates. Small bilateral pleural effusions versus bibasilar pleural thickening.
[2018-04-08] MEDS: Chlorhexidine Gluconate 0.12% 15mL Mouthwash MM SCH ×3 (08:27→23:17)
[2018-04-08] MEDS: Venelex 60gm Tube TP SCH (08:46)
[2018-04-08] MEDS ORDERED: Non-Formulary Item 1 EA (Amino Acids/Protein Hydrolys [Pro-Stat Sugar Free Liquid] 30 ML) PO SCH (09:00)
--- NOTE | 2018-04-08 15:23 | General Progress Note ---
Subjective - Review of Systems Service Date: 04/08/18 Subjective: awake and alert no distress Objective - Results Result Diagrams: 04/08/18 04:05 04/08/18 04:05 Recent Labs: Laboratory Last Values WBC 6.3 Th/cmm (4.8-10.8) D 04/08/18 04:05 RBC 2.92 Mil/cmm (3.80-5.10) L 04/08/18 04:05 Hgb 9.3 gm/dL (12-16) L 04/08/18 04:05 Hct 27.3 % (41.0-60) L 04/08/18 04:05 MCV 93.5 fl (81-100) 04/08/18 04:05 MCH 31.9 pg (27.0-31.0) H 04/08/18 04:05 MCHC Differential 34.1 pg (28.0-36.0) 04/08/18 04:05 RDW 16.7 % (11.5-20.0) 04/08/18 04:05 Plt Count 220 Th/cmm (150-400) 04/08/18 04:05 MPV 8.8 fl 04/08/18 04:05 Band Neutrophils % 2 % (0-10) 04/08/18 04:05 Neutrophils (Manual) 84 % (40-80) H 04/08/18 04:05 Lymphocytes 7 % (20-50) L 04/08/18 04:05 Monocytes 6 % (2-10) 04/08/18 04:05 Eosinophils 1 % (0-5) 04/08/18 04:05 Platelet Estimate ADEQUATE (NORMAL) 04/08/18 04:05 PT 12.7 SECONDS (9.5-11.5) H 04/07/18 12:42 INR 1.21 (0.5-1.4) 04/07/18 12:42 PTT (Actin FS) 27.2 SECONDS (26.0-38.0) 04/07/18 12:42 Sodium 148 mEq/L (136-145) H 04/08/18 04:05 Potassium 3.5 mEq/L (3.5-5.1) 04/08/18 04:05 Chloride 113 mEq/L (98-107) H 04/08/18 04:05 Carbon Dioxide 29.0 mEq/L (21.0-31.0) 04/08/18 04:05 Anion Gap 9.5 (7.0-16.0) 04/08/18 04:05 BUN 48 mg/dL (7-25) H 04/08/18 04:05 Creatinine 0.3 mg/dL (0.6-1.2) L 04/08/18 04:05 Est GFR ( Amer) > 60.0 ml/min (>90) 04/08/18 04:05 Est GFR (Non-Af Amer) > 60.0 ml/min 04/08/18 04:05 BUN/Creatinine Ratio 160.0 04/08/18 04:05 Glucose 175 mg/dL (70-105) H 04/08/18 04:05 Whole Bld Lactic Acid 1.39 mmol/L (0.60-1.99) 04/07/18 17:45 Calcium 9.1 mg/dL (8.6-10.3) 04/08/18 04:05 Total Bilirubin 0.6 mg/dL (0.3-1.0) 04/07/18 12:42 AST 12 U/L (13-39) L 04/07/18 12:42 ALT 29 U/L (7-52) 04/07/18 12:42 Alkaline Phosphatase 131 U/L (34-104) H 04/07/18 12:42 Troponin I 0.05 ng/mL (0.01-0.05) 04/07/18 12:42 Total Protein 6.4 gm/dL (6.0-8.3) 04/07/18 12:42 Albumin 3.0 gm/dL (3.7-5.3) L 04/07/18 12:42 Globulin 3.4 gm/dL 04/07/18 12:42 Albumin/Globulin Ratio 0.9 (1.0-1.8) L 04/07/18 12:42 Urine Source [place] 04/07/18 12:45 Urine Color YELLOW 04/07/18 12:45 Urine Clarity CLOUDY (CLEAR) H 04/07/18 12:45 Urine pH 6.5 (4.6 - 8.0) 04/07/18 12:45 Ur Specific [place] 1.020 (1.005-1.030) 04/07/18 12:45 Urine Protein 30 mg/dL (NEGATIVE) H 04/07/18 12:45 Urine Glucose (UA) NEGATIVE mg/dL (NEGATIVE) 04/07/18 12:45 Urine Ketones NEGATIVE mg/dL (NEGATIVE) 04/07/18 12:45 Urine Blood LARGE (NEGATIVE) H 04/07/18 12:45 Urine Nitrate POSITIVE (NEGATIVE) H 04/07/18 12:45 Urine Bilirubin NEGATIVE (NEGATIVE) 04/07/18 12:45 Urine Urobilinogen 1.0 E.U./dL (0.2 - 1.0) 04/07/18 12:45 Ur Leukocyte Esterase MODERATE (NEGATIVE) H 04/07/18 12:45 Urine RBC 10-25 /hpf (0-5) H 04/07/18 12:45 Urine WBC 50-100 /hpf (0-5) H 04/07/18 12:45 Ur Epithelial Cells MODERATE /lpf (FEW) 04/07/18 12:45 Calcium Oxalate Crystal FEW /hpf 04/07/18 12:45 Urine Bacteria MODERATE /hpf (NONE SEEN) H 04/07/18 12:45 Urine Mucus FEW /lpf (FEW) 04/07/18 12:45 - Physical Exam Vitals and I&O: Vital Signs Temp 98.8 F 04/08/18 15:00 Pulse 96 04/08/18 15:00 Resp 28 04/08/18 15:00 BP 117/77 04/08/18 15:00 Pulse Ox 100 04/08/18 15:00 Intake & Output 04/07/18 04/08/18 04/08/18 18:59 06:59 18:59 Intake Total 880 50 Output Total 550 Balance 330 50 Weight (lbs) 52.163 kg 44.452 kg Intake: Intake, IV Amount 100 50 Piperacillin Sodium/ 100 Tazobact 3.375 gm In Sodium Chloride 0.9% 100 ml @ 200 mls/hr IV Q6H [facility] Rx#:[id number] Piperacillin Sodium/ 50 Tazobact 3.375 gm In Sodium Chloride 0.9% 50 ml @ 100 mls/hr IV Q6HR [facility] Rx#:[id number] Tube Feeding 660 Other 120 Output: Urine 550 Other: Weight Source Estimated Bedscale Active Medications: Current Medications Albuterol/Ipratropium (Duoneb Neb) 3 ml HHN Q6HRT [facility] Stop: 06/06/18 18:59 Last Admin: 04/08/18 13:13 Dose: 3 ml Amlodipine Besylate (Norvasc) 5 mg PO DAILY [facility] Stop: 06/07/18 08:59 Last Admin: 04/08/18 08:27 Dose: 5 mg [place] Oil/[place] Balsam/Trypsin (Venelex) 1 appl TP DAILY [facility] Stop: 06/07/18 08:59 Last Admin: 04/08/18 08:46 Dose: 1 appl Chlorhexidine Gluconate (Peridex) 15 ml MM 08,1999 [facility] Stop: 06/06/18 19:59 Last Admin: 04/08/18 08:27 Dose: 15 ml Piperacillin Sod/Tazobactam (Sod 3.375 gm/ Sodium Chloride) 50 mls @ 100 mls/ hr IV Q6HR [facility] Stop: 06/07/18 11:59 Last Infusion: 04/08/18 11:40 Dose: Infused Miscellaneous (Zosyn Iv Per Pharmacy) 1 ea MC PRN PRN PRN Reason: PROTOCOL Stop: 06/06/18 17:40 Morphine Sulfate (Morphine) 1 mg IVP Q4HR PRN PRN Reason: Severe Pain Stop: 06/06/18 18:23 Last Admin: 04/08/18 14:07 Dose: 1 mg General: Alert, No acute distress HEENT: no Atraumatic, no PERRLA, no 6, no EOMI, no 7, no Mucous membr. moist/ pink, no Other, no 8, no 9, no 10, no 11, no 12, no 13, no 14, no 15, no 16, no 22, no 17, no 23, no 18, no 24, no 19, no 20, no 21 Neck: no Supple, no JVD, no Thyromegaly, no +2 carotid pulse wo bruit, no LAD, no Other Cardiovascular: Normal S1 Lungs: Clear to auscultation - Procedures Procedures: Procedures Procedure Code Date RESPIRATORY VENTILATION, LESS THAN 24 CONSECUTIVE HOURS [id number] 04/07/18 Assessment/Plan - Problem List Patient Problems: All Active Problems ABNORMAL LABORATORY RESULTS (Acute) Nutritional Asmnt/Malnutr-PDOC - Dietary Evaluation Malnutrition Findings (Please click <Entered> for more info): Nutritional Asmnt/Malnutrition Start: 04/08/18 14: 07 Text: Status: Complete Freq: Protocol: Document 04/08/18 14:07 ULISES (Rec: 04/08/18 14:34 [email or web address]) Nutritional Asmnt/Malnutrition Patient General Information Nutritional Screening High Risk Diagnosis hypokalemia, sepsis Pertinent Medical Hx/Surgical Hx persistent hypokalemia, UTI, resp failure, asthma, COPD, s/ p cardiopulmonary arrest Subjective Information Pt seen on vent via trach. Verified tube feeding Isosource HN running at 55ml/ hr at time of visit (Isosource 1.5 1000ml bag currently not in stock). Per RN, pt tolerated TF well. Current Diet Order/ Nutrition Support Isosource 1.5 55ml/hr x 20hr Pertinent Medications zosyn, piperacillin Pertinent Labs 04/08 Na 148, K 3.5 (improved), Cl 113, BUN 49, Cr 0.3, glucose 175 (increasing) 04/07 Na 148, K 2.4, BUN 24, Cr 0.3, glucose 126 Nutritional Hx/Data Height 1.68 m Height (Calculated Centimeters) 167.6 Current Weight (lbs) 44.452 kg Weight (Calculated Kilograms) 44.5 Weight (Calculated Grams) 56113.1 [place] Body Weight 130 Body Mass Index (BMI) 15.7 Weight Status Underweight GI Symptoms GI Symptoms None Last BM not indicated Difficult in: None Skin Integrity/Comment: pressure ulcer to left lateral foot and sacrum, pressure area reddened to right foot Estimated Nutritional Goals BEE in Kcals: Using Current wt Calories/Kcals/Kg 27-32 based on IBW 59kg Kcals Calculated 9698-5030 Protein: Using Current wt Protein g/k.1-1.3 Protein Calculated 65-77 Fluid: ml 1350-1575ml (1ml/kcal) Nutritional Problem 1. Problem Problem altered nutrition related labs Etiology electrolyte imbalance, endocrine dysfunction Signs/Symptoms: Na 148, Cl 113, BUN 49, glucose 175 Intervention/Recommendation Comments 1. Contionue with current TF regimen (found Isosource 1.5 8oz carton available). It provides 1650kcal, 74g protien and 855ml free water. If glucose continue high, will consider Diabetisource. 2. Recommend adding Sadi BID via TF to help P/U wound healing. 3. Monitor TF rate, tolerance, wt, skin integrity and labs 4. F/U as high risk in 2-3 days, 04/10-04/11 Expected Outcomes/Goals Expected Outcomes/Goals 1. Pt to meet at least 75% of nutritional needs via nutrition support with tolerance 2. Wt stability, wound to heal , labs to approach WNL.
[2018-04-09] MEDS: Albuterol/Ipratropium Neb 3 ML AERS HHN SCH ×4 (00:54→18:17)
[2018-04-09 04:19] LABS: % BASOPHILS 0.1 % (0.0-2.0); MEAN CORPUSCULAR HGB CONC 33.9 pg (28.0-36.0); MONOCYTE ABSOLUTE 0.3 Th/cmm (0.3-1.0); RED CELL DISTRIBUTION WIDTH 16.6 % (11.5-20.0)
[2018-04-09 04:30] LABS: % EOSINOPHILS 0.2 % (0.0-5.0); % LYMPHOCYTES 12.2 % (20.0-50.0); % NEUTROPHILS 80.5 % (40.0-80.0); HEMATOCRIT 24.8 % (41.0-60); HEMOGLOBIN 8.4 gm/dL (12-16); LYMPHOCYTE ABSOLUTE 0.4 Th/cmm (1.5-3.0); MEAN CORPUSCULAR HEMOGLOBIN 31.5 pg (27.0-31.0); MEAN PLATELET VOLUME 8.5 fl; NEUTROPHILE ABSOLUTE 2.9 Th/cmm (1.8-8.0); PLATELET COUNT 198 Th/cmm (150-400); RED BLOOD COUNT 2.67 Mil/cmm (3.80-5.10)
[2018-04-09 04:41] LABS: WHITE BLOOD COUNT 3.6 Th/cmm (4.8-10.8)
[2018-04-09 04:46] LABS: ANION GAP 9.7 (7.0-16.0); BUN - UREA NITROGEN 46 mg/dL (7-25); CALCIUM SERUM 8.9 mg/dL (8.6-10.3); CARBON DIOXIDE 30.3 mEq/L (21.0-31.0); CHLORIDE 114 mEq/L (98-107); CREATININE - SERUM 0.2 mg/dL (0.6-1.2); GFR AFRICAN-AMERICAN > 60.0 ml/min (>90); GFR NON AFRICAN-AMERICAN > 60.0 ml/min; GLUCOSE 105 mg/dL (70-105); SODIUM SERUM 151 mEq/L (136-145)
[2018-04-09] MEDS ORDERED: Potassium Chloride 40 MEQ, Lidocaine 1% 20mL Vial 25 MG in Sodium Chloride 0.9% 250 ML IV ONE (06:57)
[2018-04-09] MEDS: KCL 20mEq/100mL Premix 20 MEQ/100 ML PIGGYBACK IV SCH ×2 (08:50→14:23)
[2018-04-09] MEDS: Venelex 60gm Tube TP SCH (08:51)
[2018-04-09] MEDS: Chlorhexidine Gluconate 0.12% 15mL Mouthwash MM SCH ×2 (08:51→21:23)
[2018-04-09] MEDS: Dextrose 5% 1,000 ML IV SCH (14:22)
[2018-04-09 16:54] LABS: EOSINOPHIL SMEAR SOURCE URINE; EOSINOPHILS SMEAR COUNT NONE SEEN (NONE SEEN)
--- NOTE | 2018-04-09 19:30 | Consultation ---
DATE OF CONSULTATION: 04/08/2018 REFERRING PHYSICIAN: Dr. Kearns Thank you very much for this consultation. HISTORY OF PRESENT ILLNESS: This is a 57-year-old female who has history of COPD, history of lung cancer. The patient apparently had undergone an episode of cardiopulmonary arrest last month and required to be intubated. The patient ended up with the tracheostomy, ventilator dependent, G-tube dependent. The patient was transferred for fever and leukocytosis as well as having persistent hypokalemia as well. SOCIAL HISTORY: History of smoking in the past, quit recently. REVIEW OF SYSTEMS: Unable to obtain because of the patient's condition. PHYSICAL EXAMINATION: GENERAL: The patient is on a vent, cachectic, not responsive. VITAL SIGNS: Temperature 98.3, pulse 93, respiration is 23, blood pressure 116/78, and saturation 98%. HEENT: Atraumatic, normocephalic. Pupils are equal to light and accommodation. Ears, nose, and throat normal. NECK: Supple. No JVD. CHEST: There are a few rhonchi in bases, fair air entry bilaterally. HEART: Regular rate and rhythm. ABDOMEN: Soft, nontender. EXTREMITIES: No edema. LABORATORY DATA: WBC 6.3, hemoglobin 9.3, hematocrit 27.3, platelets 220. Sodium is 140, potassium 3.5, BUN is 48, creatinine 0.3. UA is cloudy with large blood and positive nitrite and leukocyte esterase and wbc's. Chest x-ray showed COPD changes, ____ left side, with some nodule in the right upper lobe area. IMPRESSION: A 57-year-old female with; 1. [id number] respiratory failure. 2. Pneumonia. 3. Urinary tract infection. 4. Chronic obstructive pulmonary disease. 5. Hypokalemia. PLAN: 1. IV antibiotics. 2. IV fluids. 3. Nebulizer treatment. 4. Ventilator support. 5. Follow up chest x-ray. I will follow the patient with you. Thank you very much for this consultation. JOB# [id number]
--- NOTE | 2018-04-09 22:28 | General Progress Note ---
Subjective - Review of Systems Service Date: 04/09/18 Subjective: on vent no distress Objective - Results Result Diagrams: 04/09/18 04:10 04/09/18 04:10 Recent Labs: Laboratory Last Values WBC 3.6 Th/cmm (4.8-10.8) L 04/09/18 04:10 RBC 2.67 Mil/cmm (3.80-5.10) L 04/09/18 04:10 Hgb 8.4 gm/dL (12-16) L 04/09/18 04:10 Hct 24.8 % (41.0-60) L 04/09/18 04:10 MCV 93.0 fl (81-100) 04/09/18 04:10 MCH 31.5 pg (27.0-31.0) H 04/09/18 04:10 MCHC Differential 33.9 pg (28.0-36.0) 04/09/18 04:10 RDW 16.6 % (11.5-20.0) 04/09/18 04:10 Plt Count 198 Th/cmm (150-400) 04/09/18 04:10 MPV 8.5 fl 04/09/18 04:10 Neutrophils % 80.5 % (40.0-80.0) H 04/09/18 04:10 Band Neutrophils % 2 % (0-10) 04/08/18 04:05 Lymphocytes % 12.2 % (20.0-50.0) L 04/09/18 04:10 Monocytes % 7.0 % (2.0-10.0) 04/09/18 04:10 Eosinophils % 0.2 % (0.0-5.0) 04/09/18 04:10 Basophils % 0.1 % (0.0-2.0) 04/09/18 04:10 Neutrophils (Manual) 84 % (40-80) H 04/08/18 04:05 Lymphocytes 7 % (20-50) L 04/08/18 04:05 Monocytes 6 % (2-10) 04/08/18 04:05 Eosinophils 1 % (0-5) 04/08/18 04:05 Platelet Estimate ADEQUATE (NORMAL) 04/08/18 04:05 Eos Smear Source URINE 04/09/18 15:20 Eos Smear Total Cells NONE SEEN (NONE SEEN) 04/09/18 15:20 PT 12.7 SECONDS (9.5-11.5) H 04/07/18 12:42 INR 1.21 (0.5-1.4) 04/07/18 12:42 PTT (Actin FS) 27.2 SECONDS (26.0-38.0) 04/07/18 12:42 Sodium 151 mEq/L (136-145) H 04/09/18 04:10 Potassium 3.0 mEq/L (3.5-5.1) L 04/09/18 04:10 Chloride 114 mEq/L (98-107) H 04/09/18 04:10 Carbon Dioxide 30.3 mEq/L (21.0-31.0) 04/09/18 04:10 Anion Gap 9.7 (7.0-16.0) 04/09/18 04:10 BUN 46 mg/dL (7-25) H 04/09/18 04:10 Creatinine 0.2 mg/dL (0.6-1.2) L 04/09/18 04:10 Est GFR ( Amer) > 60.0 ml/min (>90) 04/09/18 04:10 Est GFR (Non-Af Amer) > 60.0 ml/min 04/09/18 04:10 BUN/Creatinine Ratio 230.0 04/09/18 04:10 Glucose 105 mg/dL (70-105) 04/09/18 04:10 Whole Bld Lactic Acid 1.39 mmol/L (0.60-1.99) 04/07/18 17:45 Calcium 8.9 mg/dL (8.6-10.3) 04/09/18 04:10 Total Bilirubin 0.6 mg/dL (0.3-1.0) 04/07/18 12:42 AST 12 U/L (13-39) L 04/07/18 12:42 ALT 29 U/L (7-52) 04/07/18 12:42 Alkaline Phosphatase 131 U/L (34-104) H 04/07/18 12:42 Troponin I 0.05 ng/mL (0.01-0.05) 04/07/18 12:42 Total Protein 6.4 gm/dL (6.0-8.3) 04/07/18 12:42 Albumin 3.0 gm/dL (3.7-5.3) L 04/07/18 12:42 Globulin 3.4 gm/dL 04/07/18 12:42 Albumin/Globulin Ratio 0.9 (1.0-1.8) L 04/07/18 12:42 Urine Source [place] 04/07/18 12:45 Urine Color YELLOW 04/07/18 12:45 Urine Clarity CLOUDY (CLEAR) H 04/07/18 12:45 Urine pH 6.5 (4.6 - 8.0) 04/07/18 12:45 Ur Specific [place] 1.020 (1.005-1.030) 04/07/18 12:45 Urine Protein 30 mg/dL (NEGATIVE) H 04/07/18 12:45 Urine Glucose (UA) NEGATIVE mg/dL (NEGATIVE) 04/07/18 12:45 Urine Ketones NEGATIVE mg/dL (NEGATIVE) 04/07/18 12:45 Urine Blood LARGE (NEGATIVE) H 04/07/18 12:45 Urine Nitrate POSITIVE (NEGATIVE) H 04/07/18 12:45 Urine Bilirubin NEGATIVE (NEGATIVE) 04/07/18 12:45 Urine Urobilinogen 1.0 E.U./dL (0.2 - 1.0) 04/07/18 12:45 Ur Leukocyte Esterase MODERATE (NEGATIVE) H 04/07/18 12:45 Urine RBC 10-25 /hpf (0-5) H 04/07/18 12:45 Urine WBC 50-100 /hpf (0-5) H 04/07/18 12:45 Ur Epithelial Cells MODERATE /lpf (FEW) 04/07/18 12:45 Calcium Oxalate Crystal FEW /hpf 04/07/18 12:45 Urine Bacteria MODERATE /hpf (NONE SEEN) H 04/07/18 12:45 Urine Mucus FEW /lpf (FEW) 04/07/18 12:45 Ur Random Sodium 40 mmol/L 04/09/18 15:20 Urine Creatinine 38.0 mg/dl (28.0-217.0) 04/09/18 15:20 - Physical Exam Vitals and I&O: Vital Signs Temp 99 F 04/09/18 19:00 Pulse 80 04/09/18 22:00 Resp 19 04/09/18 22:00 BP 107/74 04/09/18 22:00 Pulse Ox 100 04/09/18 22:00 Intake & Output 04/09/18 04/09/18 04/10/18 06:59 18:59 06:59 Intake Total 590 890 Output Total 350 395 Balance 240 495 Weight (lbs) 44.452 kg 44.452 kg Intake: Intake, IV Amount 100 200 KCL 20mEq/100mL Premix 20 100 meq In 100 ml @ 50 mls/ hr IV Q2H [facility] Rx#: [id number] Piperacillin Sodium/ 100 100 Tazobact 3.375 gm In Sodium Chloride 0.9% 50 ml @ 100 mls/hr IV Q6HR [facility] Rx#:[id number] Tube Feeding 440 660 Other 50 30 Output: Urine 350 395 Other: # Bowel Movements 1 Stool Characteristics Soft Weight Source Bedscale Bedscale Active Medications: Current Medications Albuterol/Ipratropium (Duoneb Neb) 3 ml HHN Q6HRT [facility] Stop: 06/06/18 18:59 Last Admin: 04/09/18 18:17 Dose: 3 ml [place] Oil/[place] Balsam/Trypsin (Venelex) 1 appl TP DAILY [facility] Stop: 06/07/18 08:59 Last Admin: 04/09/18 08:51 Dose: 1 appl Chlorhexidine Gluconate (Peridex) 15 ml MM 799,1999 [facility] Stop: 06/06/18 19:59 Last Admin: 04/09/18 21:23 Dose: 15 ml Piperacillin Sod/Tazobactam (Sod 3.375 gm/ Sodium Chloride) 50 mls @ 100 mls/ hr IV Q6HR [facility] Stop: 06/07/18 11:59 Last Infusion: 04/09/18 18:36 Dose: Infused Dextrose (D5w) 1,000 mls @ 100 mls/hr IV .Q10H [facility] Stop: 06/08/18 14:05 Last Admin: 04/09/18 14:22 Dose: 100 mls/hr Miscellaneous (Zosyn Iv Per Pharmacy) 1 ea MC PRN PRN PRN Reason: PROTOCOL Stop: 06/06/18 17:40 Morphine Sulfate (Morphine) 1 mg IVP Q4HR PRN PRN Reason: Severe Pain Stop: 06/06/18 18:23 Last Admin: 04/08/18 14:07 Dose: 1 mg General: Alert, No acute distress HEENT: no Atraumatic, no PERRLA, no 6, no EOMI, no 7, no Mucous membr. moist/ pink, no Other, no 8, no 9, no 10, no 11, no 12, no 13, no 14, no 15, no 16, no 22, no 17, no 23, no 18, no 24, no 19, no 20, no 21 Neck: no Supple, no JVD, no Thyromegaly, no +2 carotid pulse wo bruit, no LAD, no Other Cardiovascular: Normal S1 Lungs: Clear to auscultation - Procedures Procedures: Procedures Procedure Code Date RESPIRATORY VENTILATION, LESS THAN 24 CONSECUTIVE HOURS [id number] 04/07/18 Assessment/Plan - Problem List Patient Problems: All Active Problems ABNORMAL LABORATORY RESULTS (Acute) - Assessment Assessment: Sepsis, lactic acidosis. Pneumonia. Vent dependent respiratory failure. Dysphagia. - Plan Plan: ivabx as per id ventilator support cpm Nutritional Asmnt/Malnutr-PDOC - Dietary Evaluation Malnutrition Findings (Please click <Entered> for more info): Nutritional Asmnt/Malnutrition Start: 04/08/18 14: 07 Text: Status: Complete Freq: Protocol: Document 04/08/18 14:07 [email or web address] (Rec: 04/08/18 14:34 [email or web address]) Nutritional Asmnt/Malnutrition Patient General Information Nutritional Screening High Risk Diagnosis hypokalemia, sepsis Pertinent Medical Hx/Surgical Hx persistent hypokalemia, UTI, resp failure, asthma, COPD, s/ p cardiopulmonary arrest Subjective Information Pt seen on vent via trach. Verified tube feeding Isosource HN running at 55ml/ hr at time of visit (Isosource 1.5 1000ml bag currently not in stock). Per RN, pt tolerated TF well. Current Diet Order/ Nutrition Support Isosource 1.5 55ml/hr x 20hr Pertinent Medications zosyn, piperacillin Pertinent Labs 04/08 Na 148, K 3.5 (improved), Cl 113, BUN 49, Cr 0.3, glucose 175 (increasing) 04/07 Na 148, K 2.4, BUN 24, Cr 0.3, glucose 126 Nutritional Hx/Data Height 1.68 m Height (Calculated Centimeters) 167.6 Current Weight (lbs) 44.452 kg Weight (Calculated Kilograms) 44.5 Weight (Calculated Grams) 09634.1 [place] Body Weight 130 Body Mass Index (BMI) 15.7 Weight Status Underweight GI Symptoms GI Symptoms None Last BM not indicated Difficult in: None Skin Integrity/Comment: pressure ulcer to left lateral foot and sacrum, pressure area reddened to right foot Estimated Nutritional Goals BEE in Kcals: Using Current wt Calories/Kcals/Kg 27-32 based on IBW 59kg Kcals Calculated 7869-5673 Protein: Using Current wt Protein g/k.1-1.3 Protein Calculated 65-77 Fluid: ml 1350-1575ml (1ml/kcal) Nutritional Problem 1. Problem Problem altered nutrition related labs Etiology electrolyte imbalance, endocrine dysfunction Signs/Symptoms: Na 148, Cl 113, BUN 49, glucose 175 Intervention/Recommendation Comments 1. Contionue with current TF regimen (found Isosource 1.5 8oz carton available). It provides 1650kcal, 74g protien and 855ml free water. If glucose continue high, will consider Diabetisource. 2. Recommend adding Sadi BID via TF to help P/U wound healing. 3. Monitor TF rate, tolerance, wt, skin integrity and labs 4. F/U as high risk in 2-3 days, 04/10-04/11 Expected Outcomes/Goals Expected Outcomes/Goals 1. Pt to meet at least 75% of nutritional needs via nutrition support with tolerance 2. Wt stability, wound to heal , labs to approach WNL.
--- NOTE | 2018-04-09 22:31 | Infectious Disease Prog Note ---
Infectious Disease Subjective - Review of Systems Service Date: 04/08/18 Infectious Disease Objective - Results Result Diagrams: 04/09/18 04:10 04/09/18 04:10 Recent Labs: Laboratory Last Values WBC 3.6 Th/cmm (4.8-10.8) L 04/09/18 04:10 RBC 2.67 Mil/cmm (3.80-5.10) L 04/09/18 04:10 Hgb 8.4 gm/dL (12-16) L 04/09/18 04:10 Hct 24.8 % (41.0-60) L 04/09/18 04:10 MCV 93.0 fl (81-100) 04/09/18 04:10 MCH 31.5 pg (27.0-31.0) H 04/09/18 04:10 MCHC Differential 33.9 pg (28.0-36.0) 04/09/18 04:10 RDW 16.6 % (11.5-20.0) 04/09/18 04:10 Plt Count 198 Th/cmm (150-400) 04/09/18 04:10 MPV 8.5 fl 04/09/18 04:10 Neutrophils % 80.5 % (40.0-80.0) H 04/09/18 04:10 Band Neutrophils % 2 % (0-10) 04/08/18 04:05 Lymphocytes % 12.2 % (20.0-50.0) L 04/09/18 04:10 Monocytes % 7.0 % (2.0-10.0) 04/09/18 04:10 Eosinophils % 0.2 % (0.0-5.0) 04/09/18 04:10 Basophils % 0.1 % (0.0-2.0) 04/09/18 04:10 Neutrophils (Manual) 84 % (40-80) H 04/08/18 04:05 Lymphocytes 7 % (20-50) L 04/08/18 04:05 Monocytes 6 % (2-10) 04/08/18 04:05 Eosinophils 1 % (0-5) 04/08/18 04:05 Platelet Estimate ADEQUATE (NORMAL) 04/08/18 04:05 Eos Smear Source URINE 04/09/18 15:20 Eos Smear Total Cells NONE SEEN (NONE SEEN) 04/09/18 15:20 PT 12.7 SECONDS (9.5-11.5) H 04/07/18 12:42 INR 1.21 (0.5-1.4) 04/07/18 12:42 PTT (Actin FS) 27.2 SECONDS (26.0-38.0) 04/07/18 12:42 Sodium 151 mEq/L (136-145) H 04/09/18 04:10 Potassium 3.0 mEq/L (3.5-5.1) L 04/09/18 04:10 Chloride 114 mEq/L (98-107) H 04/09/18 04:10 Carbon Dioxide 30.3 mEq/L (21.0-31.0) 04/09/18 04:10 Anion Gap 9.7 (7.0-16.0) 04/09/18 04:10 BUN 46 mg/dL (7-25) H 04/09/18 04:10 Creatinine 0.2 mg/dL (0.6-1.2) L 04/09/18 04:10 Est GFR ( Amer) > 60.0 ml/min (>90) 04/09/18 04:10 Est GFR (Non-Af Amer) > 60.0 ml/min 04/09/18 04:10 BUN/Creatinine Ratio 230.0 04/09/18 04:10 Glucose 105 mg/dL (70-105) 04/09/18 04:10 Whole Bld Lactic Acid 1.39 mmol/L (0.60-1.99) 04/07/18 17:45 Calcium 8.9 mg/dL (8.6-10.3) 04/09/18 04:10 Total Bilirubin 0.6 mg/dL (0.3-1.0) 04/07/18 12:42 AST 12 U/L (13-39) L 04/07/18 12:42 ALT 29 U/L (7-52) 04/07/18 12:42 Alkaline Phosphatase 131 U/L (34-104) H 04/07/18 12:42 Troponin I 0.05 ng/mL (0.01-0.05) 04/07/18 12:42 Total Protein 6.4 gm/dL (6.0-8.3) 04/07/18 12:42 Albumin 3.0 gm/dL (3.7-5.3) L 04/07/18 12:42 Globulin 3.4 gm/dL 04/07/18 12:42 Albumin/Globulin Ratio 0.9 (1.0-1.8) L 04/07/18 12:42 Urine Source [place] 04/07/18 12:45 Urine Color YELLOW 04/07/18 12:45 Urine Clarity CLOUDY (CLEAR) H 04/07/18 12:45 Urine pH 6.5 (4.6 - 8.0) 04/07/18 12:45 Ur Specific [place] 1.020 (1.005-1.030) 04/07/18 12:45 Urine Protein 30 mg/dL (NEGATIVE) H 04/07/18 12:45 Urine Glucose (UA) NEGATIVE mg/dL (NEGATIVE) 04/07/18 12:45 Urine Ketones NEGATIVE mg/dL (NEGATIVE) 04/07/18 12:45 Urine Blood LARGE (NEGATIVE) H 04/07/18 12:45 Urine Nitrate POSITIVE (NEGATIVE) H 04/07/18 12:45 Urine Bilirubin NEGATIVE (NEGATIVE) 04/07/18 12:45 Urine Urobilinogen 1.0 E.U./dL (0.2 - 1.0) 04/07/18 12:45 Ur Leukocyte Esterase MODERATE (NEGATIVE) H 04/07/18 12:45 Urine RBC 10-25 /hpf (0-5) H 04/07/18 12:45 Urine WBC 50-100 /hpf (0-5) H 04/07/18 12:45 Ur Epithelial Cells MODERATE /lpf (FEW) 04/07/18 12:45 Calcium Oxalate Crystal FEW /hpf 04/07/18 12:45 Urine Bacteria MODERATE /hpf (NONE SEEN) H 04/07/18 12:45 Urine Mucus FEW /lpf (FEW) 04/07/18 12:45 Ur Random Sodium 40 mmol/L 04/09/18 15:20 Urine Creatinine 38.0 mg/dl (28.0-217.0) 04/09/18 15:20 - Physical Exam Vitals and I&O: Vital Signs Temp 99 F 04/09/18 19:00 Pulse 80 04/09/18 22:00 Resp 19 04/09/18 22:00 BP 107/74 04/09/18 22:00 Pulse Ox 100 04/09/18 22:00 Intake & Output 04/09/18 04/09/18 04/10/18 06:59 18:59 06:59 Intake Total 590 890 Output Total 350 395 Balance 240 495 Weight (lbs) 44.452 kg 44.452 kg Intake: Intake, IV Amount 100 200 KCL 20mEq/100mL Premix 20 100 meq In 100 ml @ 50 mls/ hr IV Q2H [facility] Rx#: [id number] Piperacillin Sodium/ 100 100 Tazobact 3.375 gm In Sodium Chloride 0.9% 50 ml @ 100 mls/hr IV Q6HR [facility] Rx#:[id number] Tube Feeding 440 660 Other 50 30 Output: Urine 350 395 Other: # Bowel Movements 1 Stool Characteristics Soft Weight Source Bedscale Bedscale Active Medications: Current Medications Albuterol/Ipratropium (Duoneb Neb) 3 ml HHN Q6HRT [facility] Stop: 06/06/18 18:59 Last Admin: 04/09/18 18:17 Dose: 3 ml [place] Oil/[place] Balsam/Trypsin (Venelex) 1 appl TP DAILY [facility] Stop: 06/07/18 08:59 Last Admin: 04/09/18 08:51 Dose: 1 appl Chlorhexidine Gluconate (Peridex) 15 ml MM 08,1999 [facility] Stop: 06/06/18 19:59 Last Admin: 04/09/18 21:23 Dose: 15 ml Piperacillin Sod/Tazobactam (Sod 3.375 gm/ Sodium Chloride) 50 mls @ 100 mls/ hr IV Q6HR [facility] Stop: 06/07/18 11:59 Last Infusion: 04/09/18 18:36 Dose: Infused Dextrose (D5w) 1,000 mls @ 100 mls/hr IV .Q10H [facility] Stop: 06/08/18 14:05 Last Admin: 04/09/18 14:22 Dose: 100 mls/hr Miscellaneous (Zosyn Iv Per Pharmacy) 1 ea MC PRN PRN PRN Reason: PROTOCOL Stop: 06/06/18 17:40 Morphine Sulfate (Morphine) 1 mg IVP Q4HR PRN PRN Reason: Severe Pain Stop: 06/06/18 18:23 Last Admin: 04/08/18 14:07 Dose: 1 mg General: no acute distress, well developed, well nourished HEENT: atraumatic, normocephalic, PERRLA, EOMI Neck: supple, tracheostomy Cardiovascular: S1S2, regular Lungs: clear to auscultation bilaterally, clear to percussion Abdomen: soft, no tender, no distended Extremities: no cyanosis, no clubbing, no edema Neurological: awake, alert - Procedures Procedures: Procedures Procedure Code Date RESPIRATORY VENTILATION, LESS THAN 24 CONSECUTIVE HOURS [id number] 04/07/18 Infectious Disease Assmt/Plan - Problem List Patient Problems: All Active Problems ABNORMAL LABORATORY RESULTS (Acute) Nutritional Asmnt/Malnutr-PDOC - Dietary Evaluation Malnutrition Findings (Please click <Entered> for more info): Nutritional Asmnt/Malnutrition Start: 04/08/18 14: 07 Text: Status: Complete Freq: Protocol: Document 04/08/18 14:07 [email or web address] (Rec: 04/08/18 14:34 LCHENG [email or web address]) Nutritional Asmnt/Malnutrition Patient General Information Nutritional Screening High Risk Diagnosis hypokalemia, sepsis Pertinent Medical Hx/Surgical Hx persistent hypokalemia, UTI, resp failure, asthma, COPD, s/ p cardiopulmonary arrest Subjective Information Pt seen on vent via trach. Verified tube feeding Isosource HN running at 55ml/ hr at time of visit (Isosource 1.5 1000ml bag currently not in stock). Per RN, pt tolerated TF well. Current Diet Order/ Nutrition Support Isosource 1.5 55ml/hr x 20hr Pertinent Medications zosyn, piperacillin Pertinent Labs 04/08 Na 148, K 3.5 (improved), Cl 113, BUN 49, Cr 0.3, glucose 175 (increasing) 04/07 Na 148, K 2.4, BUN 24, Cr 0.3, glucose 126 Nutritional Hx/Data Height 1.68 m Height (Calculated Centimeters) 167.6 Current Weight (lbs) 44.452 kg Weight (Calculated Kilograms) 44.5 Weight (Calculated Grams) 90441.1 [place] Body Weight 130 Body Mass Index (BMI) 15.7 Weight Status Underweight GI Symptoms GI Symptoms None Last BM not indicated Difficult in: None Skin Integrity/Comment: pressure ulcer to left lateral foot and sacrum, pressure area reddened to right foot Estimated Nutritional Goals BEE in Kcals: Using Current wt Calories/Kcals/Kg 27-32 based on IBW 59kg Kcals Calculated 4192-1186 Protein: Using Current wt Protein g/k.1-1.3 Protein Calculated 65-77 Fluid: ml 1350-1575ml (1ml/kcal) Nutritional Problem 1. Problem Problem altered nutrition related labs Etiology electrolyte imbalance, endocrine dysfunction Signs/Symptoms: Na 148, Cl 113, BUN 49, glucose 175 Intervention/Recommendation Comments 1. Contionue with current TF regimen (found Isosource 1.5 8oz carton available). It provides 1650kcal, 74g protien and 855ml free water. If glucose continue high, will consider Diabetisource. 2. Recommend adding Sadi BID via TF to help P/U wound healing. 3. Monitor TF rate, tolerance, wt, skin integrity and labs 4. F/U as high risk in 2-3 days, 04/10-04/11 Expected Outcomes/Goals Expected Outcomes/Goals 1. Pt to meet at least 75% of nutritional needs via nutrition support with tolerance 2. Wt stability, wound to heal , labs to approach WNL.
[2018-04-10] MEDS: Albuterol/Ipratropium Neb 3 ML AERS HHN SCH ×3 (00:52→14:02)
[2018-04-10] MEDS: Dextrose 5% 1,000 ML IV SCH ×2 (02:33→11:11)
[2018-04-10 04:34] LABS: % BASOPHILS 0.3 % (0.0-2.0); % EOSINOPHILS 0.3 % (0.0-5.0); % LYMPHOCYTES 8.6 % (20.0-50.0); % MONOCYTES 5.4 % (2.0-10.0); % NEUTROPHILS 85.4 % (40.0-80.0); HEMATOCRIT 24.9 % (41.0-60); HEMOGLOBIN 8.6 gm/dL (12-16); LYMPHOCYTE ABSOLUTE 0.5 Th/cmm (1.5-3.0); MEAN CELL VOLUME 93.2 fl (81-100); MEAN CORPUSCULAR HEMOGLOBIN 32.1 pg (27.0-31.0); MEAN CORPUSCULAR HGB CONC 34.4 pg (28.0-36.0); MEAN PLATELET VOLUME 7.7 fl; MONOCYTE ABSOLUTE 0.3 Th/cmm (0.3-1.0); NEUTROPHILE ABSOLUTE 5.1 Th/cmm (1.8-8.0); PLATELET COUNT 176 Th/cmm (150-400); RED BLOOD COUNT 2.67 Mil/cmm (3.80-5.10); RED CELL DISTRIBUTION WIDTH 16.2 % (11.5-20.0); WHITE BLOOD COUNT 5.9 Th/cmm (4.8-10.8)
[2018-04-10] MEDS: Morphine Sulfate 2 mg/mL 1mL Syr IVP PRN ×3 (05:12→16:15)
[2018-04-10 06:04] LABS: ALB/GLOB RATIO 0.9 (1.0-1.8); ALBUMIN 2.6 gm/dL (3.7-5.3); ALKALINE PHOSPHATASE 100 U/L (34-104); ANION GAP 9.1 (7.0-16.0); BILIRUBIN,TOTAL 0.5 mg/dL (0.3-1.0); BUN - UREA NITROGEN 42 mg/dL (7-25); CALCIUM SERUM 8.6 mg/dL (8.6-10.3); CARBON DIOXIDE 28.6 mEq/L (21.0-31.0); CHLORIDE 111 mEq/L (98-107); CREATININE - SERUM 0.2 mg/dL (0.6-1.2); GFR AFRICAN-AMERICAN > 60.0 ml/min (>90); GFR NON AFRICAN-AMERICAN > 60.0 ml/min; GLUCOSE 118 mg/dL (70-105); MAGNESIUM 2.2 mg/dL (1.9-2.7); PHOSPHOROUS 2.3 mg/dL (2.5-5.0); SGOT 13 U/L (13-39); SGPT/ALT 33 U/L (7-52); SODIUM SERUM 146 mEq/L (136-145); TOTAL PROTEIN,SERUM 5.6 gm/dL (6.0-8.3); URIC ACID 2.4 mg/dL (2.3-6.6)
[2018-04-10 06:10] LABS: POTASSIUM SERUM 2.7 mEq/L (3.5-5.1)
[2018-04-10] MEDS ORDERED: Potassium Chloride Elixir 20 mEq /15 mL UDC GT ONE (06:12)
[2018-04-10] MEDS: Chlorhexidine Gluconate 0.12% 15mL Mouthwash MM SCH (08:27)
[2018-04-10] MEDS: Venelex 60gm Tube TP SCH (08:27)
--- NOTE | 2018-04-10 08:45 | Consultation ---
DATE OF CONSULTATION: 04/09/2018 REASON FOR CONSULTATION: Worsening kidney function, electrolyte imbalance and fluid management. HISTORY OF PRESENT ILLNESS: This is a 57-year-old female with past medical history of respiratory failure, vent dependent, who was transferred to Emergency Room because of abnormal labs. A few hours prior to admission, labs drawn at [facility] revealed sodium of 148, potassium of 2.4. She was then brought to the Emergency Room. Her temperature was 100.9 degrees with a lactic acid of 2.38. Her urinalysis was suggestive of UTI. Chest x-ray revealed bilateral infiltrates. Her sodium level was 148 with potassium of 2.4. Her BUN/creatinine were 49/0.3. Her sodium gradually increased to 151 with a BUN/creatinine of 46/0.2. She did not have any history of nausea and vomiting, diarrhea, fever, chills, abdominal pain, shortness of breath or chest pain. PAST MEDICAL HISTORY: 1. Respiratory failure, vent dependent. 2. Anoxic encephalopathy. 3. Respiratory failure secondary to COPD/bronchial asthma. 4. History of cardiopulmonary arrest. 5. Status post CVA. 6. GERD. 7. DJD. 8. Alzheimer's dementia. 9. Anemia of chronic disease. 10. Moderate malnutrition. CURRENT MEDICATIONS: She is currently on albuterol/ipratropium, amlodipine, chlorhexidine, clonidine, morphine sulfate, Zosyn. ALLERGIES: No known drug allergies. SOCIAL AND FAMILY HISTORY: I was not able to obtain directly from the patient because she remains nonverbal. REVIEW OF SYSTEMS: Again, I was not able to decipher directly from the patient because of the same reason. PHYSICAL EXAMINATION: GENERAL: The patient remains stuporous on a ventilator, but comfortable. VITAL SIGNS: Blood pressure 102/70, pulse 80, temperature 99.4 degrees. SKIN: Poor turgor, warm. No rash. No jaundice appreciated. HEENT: Head normocephalic, atraumatic. Eyes, unable to assess her extraocular muscles. Pupils are equal, round, reactive to light and accommodates. Anicteric sclerae. Pale conjunctivae. Nose, midline nasal septum. Mouth; dry mucosa, adequate dentition. NECK: Supple, no adenopathy, no thyromegaly, no bruits. Trachea palpated in the midline. CHEST AND CARDIOVASCULAR SYSTEM: S1 and S2. No rub, murmur nor gallop appreciated. Point of maximal impulse fifth intercostal space, left midclavicular line. No abdominal or femoral bruits appreciated. LUNGS: Equal expansion, no use of accessory muscles. No supraclavicular retractions, few rhonchi, but no rales nor wheezes appreciated. BREASTS: Symmetrical without any discharge. ABDOMEN: Flat, soft, positive for bowel sounds. No bruits either diastolic or systolic. RECTAL: Deferred. GENITOURINARY: Normal-appearing female genitalia with indwelling Culp catheter. MUSCULOSKELETAL: No effusions present in her joints, but unable to assess her range of motion. EXTREMITIES: She has no evidence of edema in her lower extremities. She does have some dressing on the dorsum of both feet. She also has evidence of bilateral hand edema, left greater than right. NEUROLOGIC: As mentioned, the patient is stuporous, so I was not able to pursue further my neuro exam. LABORATORY DATA: Labs did reveal sodium 151, potassium 3, chloride 114, bicarb is 30, BUN 46, creatinine 0.2, glucose 105, calcium is 8.9. White count 3.6, hemoglobin 8.4, hematocrit 34.8, platelets 198, polys 80.5%. ASSESSMENT AND PLAN: 1. Acute kidney injury. MDRD GFR greater than 60 mL per minute. Based on her lab results, she had developed prerenal azotemia. She may have some gastrostomy tube feeding; however, this may not be enough to replenish both sensible and insensible fluid losses. This is supported by the fact that she continues to have hypernatremia. Physical exam showed poor skin turgor with dry oral mucosa. These are all suggestive of underlying dehydration. Her prerenal azotemia eventually progressed to acute tubular injury. 2. Hypokalemia, etiology at this point is unknown. 3. Hypernatremia more likely due to dehydration where you have an increase in free water loss compared to sodium. 4. Sepsis secondary to complicated urinary tract infection and possibly bilateral ventilator-associated pneumonia. 5. Respiratory failure, ventilator dependent. 6. Respiratory failure secondary to chronic obstructive pulmonary disease and bronchial asthma. 7. Functional quadriplegia. 8. Anoxic encephalopathy. 9. History of cardiopulmonary arrest. 10. Status post cerebrovascular accident. 11. Gastroesophageal reflux disease. 12. Degenerative joint disease. 13. Alzheimer's dementia. 14. Anemia of chronic disease. 15. Moderate malnutrition. PLAN: 1. Urine sodium and osmolarity. 2. Urine microalbumin to creatinine ratio. 3. Urine C and S. 4. Urinalysis. 5. Electrolytes, TSH and BNP level. 6. Start the patient on D5W. 7. Discontinue Norvasc because blood pressure is persistently on the low side. Thank you Dr. Kearns for this consult. We will follow the patient closely with you. JOB# [id number]
[2018-04-10 11:23] LABS: CREATININEURINE 24.3 mg/dl
[2018-04-10 11:24] LABS: MICROALBUMIN RANDOM RUINE 21.2
--- NOTE | 2018-04-10 12:58 | General Progress Note ---
Subjective - Review of Systems Service Date: 04/10/18 Subjective: sleeping, on vent Objective - Results Result Diagrams: 04/10/18 04:20 04/10/18 04:20 Recent Labs: Laboratory Last Values WBC 5.9 Th/cmm (4.8-10.8) 04/10/18 04:20 RBC 2.67 Mil/cmm (3.80-5.10) L 04/10/18 04:20 Hgb 8.6 gm/dL (12-16) L 04/10/18 04:20 Hct 24.9 % (41.0-60) L 04/10/18 04:20 MCV 93.2 fl (81-100) 04/10/18 04:20 MCH 32.1 pg (27.0-31.0) H 04/10/18 04:20 MCHC Differential 34.4 pg (28.0-36.0) 04/10/18 04:20 RDW 16.2 % (11.5-20.0) 04/10/18 04:20 Plt Count 176 Th/cmm (150-400) 04/10/18 04:20 MPV 7.7 fl 04/10/18 04:20 Neutrophils % 85.4 % (40.0-80.0) H 04/10/18 04:20 Band Neutrophils % 2 % (0-10) 04/08/18 04:05 Lymphocytes % 8.6 % (20.0-50.0) L 04/10/18 04:20 Monocytes % 5.4 % (2.0-10.0) 04/10/18 04:20 Eosinophils % 0.3 % (0.0-5.0) 04/10/18 04:20 Basophils % 0.3 % (0.0-2.0) 04/10/18 04:20 Neutrophils (Manual) 84 % (40-80) H 04/08/18 04:05 Lymphocytes 7 % (20-50) L 04/08/18 04:05 Monocytes 6 % (2-10) 04/08/18 04:05 Eosinophils 1 % (0-5) 04/08/18 04:05 Platelet Estimate ADEQUATE (NORMAL) 04/08/18 04:05 Eos Smear Source URINE 04/09/18 15:20 Eos Smear Total Cells NONE SEEN (NONE SEEN) 04/09/18 15:20 PT 12.7 SECONDS (9.5-11.5) H 04/07/18 12:42 INR 1.21 (0.5-1.4) 04/07/18 12:42 PTT (Actin FS) 27.2 SECONDS (26.0-38.0) 04/07/18 12:42 Sodium 146 mEq/L (136-145) H 04/10/18 04:20 Potassium 2.7 mEq/L (3.5-5.1) L* 04/10/18 04:20 Chloride 111 mEq/L (98-107) H 04/10/18 04:20 Carbon Dioxide 28.6 mEq/L (21.0-31.0) 04/10/18 04:20 Anion Gap 9.1 (7.0-16.0) 04/10/18 04:20 BUN 42 mg/dL (7-25) H 04/10/18 04:20 Creatinine 0.2 mg/dL (0.6-1.2) L 04/10/18 04:20 Est GFR ( Amer) > 60.0 ml/min (>90) 04/10/18 04:20 Est GFR (Non-Af Amer) > 60.0 ml/min 04/10/18 04:20 BUN/Creatinine Ratio 210.0 04/10/18 04:20 Glucose 118 mg/dL (70-105) H 04/10/18 04:20 Whole Bld Lactic Acid 1.39 mmol/L (0.60-1.99) 04/07/18 17:45 Uric Acid 2.4 mg/dL (2.3-6.6) 04/10/18 04:20 Calcium 8.6 mg/dL (8.6-10.3) 04/10/18 04:20 Phosphorus 2.3 mg/dL (2.5-5.0) L 04/10/18 04:20 Magnesium 2.2 mg/dL (1.9-2.7) 04/10/18 04:20 Total Bilirubin 0.5 mg/dL (0.3-1.0) 04/10/18 04:20 AST 13 U/L (13-39) 04/10/18 04:20 ALT 33 U/L (7-52) 04/10/18 04:20 Alkaline Phosphatase 100 U/L (34-104) 04/10/18 04:20 Troponin I 0.05 ng/mL (0.01-0.05) 04/07/18 12:42 B-Natriuretic Peptide 95.4 pg/mL (5.0-100.0) 04/10/18 04:20 Total Protein 5.6 gm/dL (6.0-8.3) L 04/10/18 04:20 Albumin 2.6 gm/dL (3.7-5.3) L 04/10/18 04:20 Globulin 3.0 gm/dL 04/10/18 04:20 Albumin/Globulin Ratio 0.9 (1.0-1.8) L 04/10/18 04:20 TSH 2.71 uIU/ml (0.34-5.60) 04/10/18 04:20 Urine Source [place] 04/07/18 12:45 Urine Color YELLOW 04/07/18 12:45 Urine Clarity CLOUDY (CLEAR) H 04/07/18 12:45 Urine pH 6.5 (4.6 - 8.0) 04/07/18 12:45 Ur Specific [place] 1.020 (1.005-1.030) 04/07/18 12:45 Urine Protein 30 mg/dL (NEGATIVE) H 04/07/18 12:45 Urine Glucose (UA) NEGATIVE mg/dL (NEGATIVE) 04/07/18 12:45 Urine Ketones NEGATIVE mg/dL (NEGATIVE) 04/07/18 12:45 Urine Blood LARGE (NEGATIVE) H 04/07/18 12:45 Urine Nitrate POSITIVE (NEGATIVE) H 04/07/18 12:45 Urine Bilirubin NEGATIVE (NEGATIVE) 04/07/18 12:45 Urine Urobilinogen 1.0 E.U./dL (0.2 - 1.0) 04/07/18 12:45 Ur Leukocyte Esterase MODERATE (NEGATIVE) H 04/07/18 12:45 Urine RBC 10-25 /hpf (0-5) H 04/07/18 12:45 Urine WBC 50-100 /hpf (0-5) H 04/07/18 12:45 Ur Epithelial Cells MODERATE /lpf (FEW) 04/07/18 12:45 Calcium Oxalate Crystal FEW /hpf 04/07/18 12:45 Urine Bacteria MODERATE /hpf (NONE SEEN) H 04/07/18 12:45 Urine Mucus FEW /lpf (FEW) 04/07/18 12:45 Ur Random Sodium 40 mmol/L 04/09/18 15:20 Urine Creatinine 24.3 mg/dl 04/09/18 18:05 Urine Microalbumin 21.2 04/09/18 18:05 Microalb/Creat Ratio 87.2 04/09/18 18:05 - Physical Exam Vitals and I&O: Vital Signs Temp 98.9 F 04/10/18 12:00 Pulse 75 04/10/18 12:00 Resp 23 04/10/18 12:00 BP 95/57 04/10/18 12:00 Pulse Ox 99 04/10/18 12:00 Intake & Output 04/09/18 04/10/18 04/10/18 18:59 06:59 18:59 Intake Total 890 1590 913.333 Output Total 395 350 Balance 495 1240 913.333 Weight (lbs) 44.452 kg 45.359 kg Intake: Intake, IV Amount 200 1100 913.333 Dextrose 5% 1,000 ml @ 1000 863.333 100 mls/hr IV .Q10H [facility] Rx#:[id number] KCL 20mEq/100mL Premix 20 100 meq In 100 ml @ 50 mls/ hr IV Q2H [facility] Rx#: [id number] Piperacillin Sodium/ 100 100 50 Tazobact 3.375 gm In Sodium Chloride 0.9% 50 ml @ 100 mls/hr IV Q6HR [facility] Rx#:[id number] Tube Feeding 660 440 Other 30 50 Output: Urine 395 350 Other: # Bowel Movements 1 1 Stool Characteristics Soft Soft Soft Liquid Brown Weight Source Bedscale Patient stated Active Medications: Current Medications Albuterol/Ipratropium (Duoneb Neb) 3 ml HHN Q6HRT [facility] Stop: 06/06/18 18:59 Last Admin: 04/10/18 06:22 Dose: 3 ml [place] Oil/[place] Balsam/Trypsin (Venelex) 1 appl TP DAILY [facility] Stop: 06/07/18 08:59 Last Admin: 04/10/18 08:27 Dose: 1 appl Chlorhexidine Gluconate (Peridex) 15 ml MM 799,1999 [facility] Stop: 06/06/18 19:59 Last Admin: 04/10/18 08:27 Dose: 15 ml Piperacillin Sod/Tazobactam (Sod 3.375 gm/ Sodium Chloride) 50 mls @ 100 mls/ hr IV Q6HR [facility] Stop: 06/07/18 11:59 Last Infusion: 04/10/18 11:45 Dose: Infused Dextrose (D5w) 1,000 mls @ 100 mls/hr IV .Q10H [facility] Stop: 06/08/18 14:05 Last Admin: 04/10/18 11:11 Dose: 100 mls/hr Miscellaneous (Zosyn Iv Per Pharmacy) 1 ea MC PRN PRN PRN Reason: PROTOCOL Stop: 06/06/18 17:40 Morphine Sulfate (Morphine) 1 mg IVP Q4HR PRN PRN Reason: Severe Pain Stop: 06/06/18 18:23 Last Admin: 04/10/18 11:14 Dose: 1 mg General: Alert, No acute distress HEENT: Atraumatic, Mucous membr. moist/pink, no PERRLA, no EOMI, no Other Neck: Supple, +2 carotid pulse wo bruit, no JVD, no Thyromegaly, no LAD, no Other Cardiovascular: Regular rate, Normal S1, Normal S2 Lungs: Clear to auscultation Abdomen: Bowel sounds, Soft Extremities: Edema, Other (B/L hands) Neurological: Sensation intact Skin: no Rash Psych/Mental Status: Mood NL - Procedures Procedures: Procedures Procedure Code Date RESPIRATORY VENTILATION, LESS THAN 24 CONSECUTIVE HOURS [id number] 04/07/18 Assessment/Plan - Problem List Patient Problems: All Active Problems ABNORMAL LABORATORY RESULTS (Acute) - Assessment Assessment: HOA Hypokalemia Hypernatremia Sepsis 2/2 Cx UTI RFVD RF 2/2 COPD Functional Quadriplegia Anoxic Enceph Anemia of CD - Plan Plan: Lab - Result Diagrams 04/10/18 04:20 04/10/18 04:20 Current Medications Albuterol/Ipratropium (Duoneb Neb) 3 ml HHN Q6HRT [facility] Stop: 06/06/18 18:59 Last Admin: 04/10/18 06:22 Dose: 3 ml [place] Oil/[place] Balsam/Trypsin (Venelex) 1 appl TP DAILY [facility] Stop: 06/07/18 08:59 Last Admin: 04/10/18 08:27 Dose: 1 appl Chlorhexidine Gluconate (Peridex) 15 ml MM 799,1999 [facility] Stop: 06/06/18 19:59 Last Admin: 04/10/18 08:27 Dose: 15 ml Piperacillin Sod/Tazobactam (Sod 3.375 gm/ Sodium Chloride) 50 mls @ 100 mls/ hr IV Q6HR [facility] Stop: 06/07/18 11:59 Last Infusion: 04/10/18 11:45 Dose: Infused Dextrose (D5w) 1,000 mls @ 100 mls/hr IV .Q10H [facility] Stop: 06/08/18 14:05 Last Admin: 04/10/18 11:11 Dose: 100 mls/hr Miscellaneous (Zosyn Iv Per Pharmacy) 1 ea MC PRN PRN PRN Reason: PROTOCOL Stop: 06/06/18 17:40 Morphine Sulfate (Morphine) 1 mg IVP Q4HR PRN PRN Reason: Severe Pain Stop: 06/06/18 18:23 Last Admin: 04/10/18 11:14 Dose: 1 mg Lab - Result Diagrams 04/10/18 04:20 04/10/18 04:20 Na down to 146 Kidney fnc continues to improve FENa 0.14% sugestive of pre renal etio BNP 95, continue D5W replace K, P04 Nutritional Asmnt/Malnutr-PDOC - Dietary Evaluation Malnutrition Findings (Please click <Entered> for more info): Nutritional Asmnt/Malnutrition Start: 04/08/18 14: 07 Text: Status: Complete Freq: Protocol: Document 04/08/18 14:07 ULISES (Rec: 04/08/18 14:34 LCKISHAN [email or web address]) Nutritional Asmnt/Malnutrition Patient General Information Nutritional Screening High Risk Diagnosis hypokalemia, sepsis Pertinent Medical Hx/Surgical Hx persistent hypokalemia, UTI, resp failure, asthma, COPD, s/ p cardiopulmonary arrest Subjective Information Pt seen on vent via trach. Verified tube feeding Isosource HN running at 55ml/ hr at time of visit (Isosource 1.5 1000ml bag currently not in stock). Per RN, pt tolerated TF well. Current Diet Order/ Nutrition Support Isosource 1.5 55ml/hr x 20hr Pertinent Medications zosyn, piperacillin Pertinent Labs 04/08 Na 148, K 3.5 (improved), Cl 113, BUN 49, Cr 0.3, glucose 175 (increasing) 04/07 Na 148, K 2.4, BUN 24, Cr 0.3, glucose 126 Nutritional Hx/Data Height 1.68 m Height (Calculated Centimeters) 167.6 Current Weight (lbs) 44.452 kg Weight (Calculated Kilograms) 44.5 Weight (Calculated Grams) 02876.1 [place] Body Weight 130 Body Mass Index (BMI) 15.7 Weight Status Underweight GI Symptoms GI Symptoms None Last BM not indicated Difficult in: None Skin Integrity/Comment: pressure ulcer to left lateral foot and sacrum, pressure area reddened to right foot Estimated Nutritional Goals BEE in Kcals: Using Current wt Calories/Kcals/Kg 27-32 based on IBW 59kg Kcals Calculated 1711-2226 Protein: Using Current wt Protein g/k.1-1.3 Protein Calculated 65-77 Fluid: ml 1350-1575ml (1ml/kcal) Nutritional Problem 1. Problem Problem altered nutrition related labs Etiology electrolyte imbalance, endocrine dysfunction Signs/Symptoms: Na 148, Cl 113, BUN 49, glucose 175 Intervention/Recommendation Comments 1. Contionue with current TF regimen (found Isosource 1.5 8oz carton available). It provides 1650kcal, 74g protien and 855ml free water. If glucose continue high, will consider Diabetisource. 2. Recommend adding Sadi BID via TF to help P/U wound healing. 3. Monitor TF rate, tolerance, wt, skin integrity and labs 4. F/U as high risk in 2-3 days, 04/10-04/11 Expected Outcomes/Goals Expected Outcomes/Goals 1. Pt to meet at least 75% of nutritional needs via nutrition support with tolerance 2. Wt stability, wound to heal , labs to approach WNL.
[2018-04-10] MEDS ORDERED: Potassium Phosphate 20 MMOLE in Sodium Chloride 0.9% 250 ML IV ONE (14:30)
--- NOTE | 2018-04-10 14:32 | General Progress Note ---
Subjective - Review of Systems Events since last encounter: on vent no distress Subjective: on vent no distress Objective - Results Result Diagrams: 04/10/18 04:20 04/10/18 04:20 Recent Labs: Laboratory Last Values WBC 5.9 Th/cmm (4.8-10.8) 04/10/18 04:20 RBC 2.67 Mil/cmm (3.80-5.10) L 04/10/18 04:20 Hgb 8.6 gm/dL (12-16) L 04/10/18 04:20 Hct 24.9 % (41.0-60) L 04/10/18 04:20 MCV 93.2 fl (81-100) 04/10/18 04:20 MCH 32.1 pg (27.0-31.0) H 04/10/18 04:20 MCHC Differential 34.4 pg (28.0-36.0) 04/10/18 04:20 RDW 16.2 % (11.5-20.0) 04/10/18 04:20 Plt Count 176 Th/cmm (150-400) 04/10/18 04:20 MPV 7.7 fl 04/10/18 04:20 Neutrophils % 85.4 % (40.0-80.0) H 04/10/18 04:20 Band Neutrophils % 2 % (0-10) 04/08/18 04:05 Lymphocytes % 8.6 % (20.0-50.0) L 04/10/18 04:20 Monocytes % 5.4 % (2.0-10.0) 04/10/18 04:20 Eosinophils % 0.3 % (0.0-5.0) 04/10/18 04:20 Basophils % 0.3 % (0.0-2.0) 04/10/18 04:20 Neutrophils (Manual) 84 % (40-80) H 04/08/18 04:05 Lymphocytes 7 % (20-50) L 04/08/18 04:05 Monocytes 6 % (2-10) 04/08/18 04:05 Eosinophils 1 % (0-5) 04/08/18 04:05 Platelet Estimate ADEQUATE (NORMAL) 04/08/18 04:05 Eos Smear Source URINE 04/09/18 15:20 Eos Smear Total Cells NONE SEEN (NONE SEEN) 04/09/18 15:20 PT 12.7 SECONDS (9.5-11.5) H 04/07/18 12:42 INR 1.21 (0.5-1.4) 04/07/18 12:42 PTT (Actin FS) 27.2 SECONDS (26.0-38.0) 04/07/18 12:42 Sodium 146 mEq/L (136-145) H 04/10/18 04:20 Potassium 2.7 mEq/L (3.5-5.1) L* 04/10/18 04:20 Chloride 111 mEq/L (98-107) H 04/10/18 04:20 Carbon Dioxide 28.6 mEq/L (21.0-31.0) 04/10/18 04:20 Anion Gap 9.1 (7.0-16.0) 04/10/18 04:20 BUN 42 mg/dL (7-25) H 04/10/18 04:20 Creatinine 0.2 mg/dL (0.6-1.2) L 04/10/18 04:20 Est GFR ( Amer) > 60.0 ml/min (>90) 04/10/18 04:20 Est GFR (Non-Af Amer) > 60.0 ml/min 04/10/18 04:20 BUN/Creatinine Ratio 210.0 04/10/18 04:20 Glucose 118 mg/dL (70-105) H 04/10/18 04:20 Whole Bld Lactic Acid 1.39 mmol/L (0.60-1.99) 04/07/18 17:45 Uric Acid 2.4 mg/dL (2.3-6.6) 04/10/18 04:20 Calcium 8.6 mg/dL (8.6-10.3) 04/10/18 04:20 Phosphorus 2.3 mg/dL (2.5-5.0) L 04/10/18 04:20 Magnesium 2.2 mg/dL (1.9-2.7) 04/10/18 04:20 Total Bilirubin 0.5 mg/dL (0.3-1.0) 04/10/18 04:20 AST 13 U/L (13-39) 04/10/18 04:20 ALT 33 U/L (7-52) 04/10/18 04:20 Alkaline Phosphatase 100 U/L (34-104) 04/10/18 04:20 Troponin I 0.05 ng/mL (0.01-0.05) 04/07/18 12:42 B-Natriuretic Peptide 95.4 pg/mL (5.0-100.0) 04/10/18 04:20 Total Protein 5.6 gm/dL (6.0-8.3) L 04/10/18 04:20 Albumin 2.6 gm/dL (3.7-5.3) L 04/10/18 04:20 Globulin 3.0 gm/dL 04/10/18 04:20 Albumin/Globulin Ratio 0.9 (1.0-1.8) L 04/10/18 04:20 TSH 2.71 uIU/ml (0.34-5.60) 04/10/18 04:20 Urine Source KENN[place]Y [place] 04/07/18 12:45 Urine Color YELLOW 04/07/18 12:45 Urine Clarity CLOUDY (CLEAR) H 04/07/18 12:45 Urine pH 6.5 (4.6 - 8.0) 04/07/18 12:45 Ur Specific Royal 1.020 (1.005-1.030) 04/07/18 12:45 Urine Protein 30 mg/dL (NEGATIVE) H 04/07/18 12:45 Urine Glucose (UA) NEGATIVE mg/dL (NEGATIVE) 04/07/18 12:45 Urine Ketones NEGATIVE mg/dL (NEGATIVE) 04/07/18 12:45 Urine Blood LARGE (NEGATIVE) H 04/07/18 12:45 Urine Nitrate POSITIVE (NEGATIVE) H 04/07/18 12:45 Urine Bilirubin NEGATIVE (NEGATIVE) 04/07/18 12:45 Urine Urobilinogen 1.0 E.U./dL (0.2 - 1.0) 04/07/18 12:45 Ur Leukocyte Esterase MODERATE (NEGATIVE) H 04/07/18 12:45 Urine RBC 10-25 /hpf (0-5) H 04/07/18 12:45 Urine WBC 50-100 /hpf (0-5) H 04/07/18 12:45 Ur Epithelial Cells MODERATE /lpf (FEW) 04/07/18 12:45 Calcium Oxalate Crystal FEW /hpf 04/07/18 12:45 Urine Bacteria MODERATE /hpf (NONE SEEN) H 04/07/18 12:45 Urine Mucus FEW /lpf (FEW) 04/07/18 12:45 Ur Random Sodium 40 mmol/L 04/09/18 15:20 Urine Creatinine 24.3 mg/dl 04/09/18 18:05 Urine Microalbumin 21.2 04/09/18 18:05 Microalb/Creat Ratio 87.2 04/09/18 18:05 - Physical Exam Vitals and I&O: Vital Signs Temp 98.9 F 04/10/18 14:00 Pulse 88 04/10/18 14:02 Resp 19 04/10/18 14:00 BP 112/75 04/10/18 14:00 Pulse Ox 100 04/10/18 14:02 Intake & Output 04/09/18 04/10/18 04/10/18 18:59 06:59 18:59 Intake Total 890 1590 913.333 Output Total 395 350 Balance 495 1240 913.333 Weight (lbs) 44.452 kg 45.359 kg Intake: Intake, IV Amount 200 1100 913.333 Dextrose 5% 1,000 ml @ 1000 863.333 100 mls/hr IV .Q10H MADHURI Rx#:[id number] KCL 20mEq/100mL Premix 20 100 meq In 100 ml @ 50 mls/ hr IV Q2H MADHURI Rx#: [id number] Piperacillin Sodium/ 100 100 50 Tazobact 3.375 gm In Sodium Chloride 0.9% 50 ml @ 100 mls/hr IV Q6HR MADHURI Rx#:[id number] Tube Feeding 660 440 Other 30 50 Output: Urine 395 350 Other: # Bowel Movements 1 1 Stool Characteristics Soft Soft Soft Liquid Brown Weight Source Bedscale Patient stated Active Medications: Current Medications Albuterol/Ipratropium (Duoneb Neb) 3 ml HHN Q6HRT MADHURI Stop: 06/06/18 18:59 Last Admin: 04/10/18 14:02 Dose: 3 ml Comins Oil/Malagasy Balsam/Trypsin (Venelex) 1 appl TP DAILY MADHURI Stop: 06/07/18 08:59 Last Admin: 04/10/18 08:27 Dose: 1 appl Chlorhexidine Gluconate (Peridex) 15 ml MM 799,1999 MADHURI Stop: 06/06/18 19:59 Last Admin: 04/10/18 08:27 Dose: 15 ml Piperacillin Sod/Tazobactam (Sod 3.375 gm/ Sodium Chloride) 50 mls @ 100 mls/ hr IV Q6HR MADHURI Stop: 06/07/18 11:59 Last Infusion: 04/10/18 11:45 Dose: Infused Dextrose (D5w) 1,000 mls @ 100 mls/hr IV .Q10H MADHURI Stop: 06/08/18 14:05 Last Admin: 04/10/18 11:11 Dose: 100 mls/hr Potassium Phosphate 20 mmole/ (Sodium Chloride) 256.6667 mls @ 42.5 mls/hr IV X1 ONE Stop: 04/10/18 20:32 Last Admin: 04/10/18 14:00 Dose: 42.5 mls/hr Miscellaneous (Zosyn Iv Per Pharmacy) 1 ea MC PRN PRN PRN Reason: PROTOCOL Stop: 06/06/18 17:40 Morphine Sulfate (Morphine) 1 mg IVP Q4HR PRN PRN Reason: Severe Pain Stop: 06/06/18 18:23 Last Admin: 04/10/18 11:14 Dose: 1 mg General: Alert, No acute distress HEENT: Atraumatic, Mucous membr. moist/pink, no PERRLA, no EOMI, no Other Neck: Supple, +2 carotid pulse wo bruit, no JVD, no Thyromegaly, no LAD, no Other Cardiovascular: Regular rate, Normal S1, Normal S2 Lungs: Clear to auscultation Abdomen: Bowel sounds, Soft Extremities: Edema, Other (B/L hands) Neurological: Sensation intact Skin: no Rash Psych/Mental Status: Mood NL - Procedures Procedures: Procedures Procedure Code Date RESPIRATORY VENTILATION, LESS THAN 24 CONSECUTIVE HOURS [id number] 04/07/18 Assessment/Plan - Problem List Patient Problems: All Active Problems ABNORMAL LABORATORY RESULTS (Acute) - Assessment Assessment: Sepsis, lactic acidosis. Pneumonia. Vent dependent respiratory failure. Dysphagia. - Plan Plan: ivabx as per id ventilator support cpm Nutritional Asmnt/Malnutr-PDOC - Dietary Evaluation Malnutrition Findings (Please click <Entered> for more info): Nutritional Asmnt/Malnutrition Start: 04/08/18 14: 07 Text: Status: Complete Freq: Protocol: Document 04/08/18 14:07 ANMOL (Rec: 04/08/18 14:34 [facility] [email or web address]) Nutritional Asmnt/Malnutrition Patient General Information Nutritional Screening High Risk Diagnosis hypokalemia, sepsis Pertinent Medical Hx/Surgical Hx persistent hypokalemia, UTI, resp failure, asthma, COPD, s/ p cardiopulmonary arrest Subjective Information Pt seen on vent via trach. Verified tube feeding Isosource HN running at 55ml/ hr at time of visit (Isosource 1.5 1000ml bag currently not in stock). Per RN, pt tolerated TF well. Current Diet Order/ Nutrition Support Isosource 1.5 55ml/hr x 20hr Pertinent Medications zosyn, piperacillin Pertinent Labs 04/08 Na 148, K 3.5 (improved), Cl 113, BUN 49, Cr 0.3, glucose 175 (increasing) 04/07 Na 148, K 2.4, BUN 24, Cr 0.3, glucose 126 Nutritional Hx/Data Height 1.68 m Height (Calculated Centimeters) 167.6 Current Weight (lbs) 44.452 kg Weight (Calculated Kilograms) 44.5 Weight (Calculated Grams) 02807.1 [place] Body Weight 130 Body Mass Index (BMI) 15.7 Weight Status Underweight GI Symptoms GI Symptoms None Last BM not indicated Difficult in: None Skin Integrity/Comment: pressure ulcer to left lateral foot and sacrum, pressure area reddened to right foot Estimated Nutritional Goals BEE in Kcals: Using Current wt Calories/Kcals/Kg 27-32 based on IBW 59kg Kcals Calculated 5306-6799 Protein: Using Current wt Protein g/k.1-1.3 Protein Calculated 65-77 Fluid: ml 1350-1575ml (1ml/kcal) Nutritional Problem 1. Problem Problem altered nutrition related labs Etiology electrolyte imbalance, endocrine dysfunction Signs/Symptoms: Na 148, Cl 113, BUN 49, glucose 175 Intervention/Recommendation Comments 1. Contionue with current TF regimen (found Isosource 1.5 8oz carton available). It provides 1650kcal, 74g protien and 855ml free water. If glucose continue high, will consider Diabetisource. 2. Recommend adding Sadi BID via TF to help P/U wound healing. 3. Monitor TF rate, tolerance, wt, skin integrity and labs 4. F/U as high risk in 2-3 days, 04/10-04/11 Expected Outcomes/Goals Expected Outcomes/Goals 1. Pt to meet at least 75% of nutritional needs via nutrition support with tolerance 2. Wt stability, wound to heal , labs to approach WNL.
== END 2018-04-10 18:15 | DRG 871 ==
LOC: ER 11:32 → ICU 15:03
PROVIDERS: ADMIT Internal Medicine; ATTEND Internal Medicine
PROC: 5A1935Z Respiratory Ventilation, Less than 24 Consecutive Hours (ICD-10-PCS; principal; 2018-04-07)
DX: A41.9 Sepsis, unspecified organism (principal); J18.9 Pneumonia, unspecified organism; J96.20 Acute and chronic respiratory failure, unspecified whether with hypoxia or hypercapnia; R53.2 Functional quadriplegia; G93.1 Anoxic brain damage, not elsewhere classified; Z99.11 Dependence on respirator [ventilator] status; N39.0 Urinary tract infection, site not specified; J44.0 Chronic obstructive pulmonary disease with (acute) lower respiratory infection; N17.9 Acute kidney failure, unspecified; E87.0 Hyperosmolality and hypernatremia; E44.0 Moderate protein-calorie malnutrition; E87.6 Hypokalemia; R13.10 Dysphagia, unspecified; Z93.0 Tracheostomy status; I10 Essential (primary) hypertension; Z82.49 Family history of ischemic heart disease and other diseases of the circulatory system; Z83.3 Family history of diabetes mellitus; L89.159 Pressure ulcer of sacral region, unspecified stage; L89.519 Pressure ulcer of right ankle, unspecified stage; K21.9 Gastro-esophageal reflux disease without esophagitis; M19.90 Unspecified osteoarthritis, unspecified site; Z86.73 Personal history of transient ischemic attack (TIA), and cerebral infarction without residual deficits; G30.9 Alzheimer's disease, unspecified; F02.80 Dementia in other diseases classified elsewhere, unspecified severity, without behavioral disturbance, psychotic disturbance, mood disturbance, and anxiety; D63.8 Anemia in other chronic diseases classified elsewhere
CPT/HCPCS: 36415-UA; 71045-TC; 80048-TC; 80053-TC; 81001-TC; 81015-TC; 82043-90; 82570-TC; 83605; 83735-TC; 83880-TC; 83935-90; 84100-TC; 84300-TC; 84443-TC; 84484-TC; 84550-TC; 85007-TC; 85025-TC; 85027-TC; 85610-TC; 87070; 87086-90; 90799; 94002; 94003; 94640; 96374; J0696; J2270; J2543; J3480; J7040; J7070; Z7610

== ENCOUNTER 2018-11-17 14:48 | Inpatient (IN) | payer MEDICARE, MEDICAID ==
[2018-11-17 15:18] LABS: HEMATOCRIT 30.3 % (41.0-60); HEMOGLOBIN 10.2 gm/dL (12-16); MEAN CELL VOLUME 91.3 fl (81-100); MEAN CORPUSCULAR HEMOGLOBIN 30.7 pg (27.0-31.0); MEAN CORPUSCULAR HGB CONC 33.6 pg (28.0-36.0); MEAN PLATELET VOLUME 7.3 fl; PLATELET COUNT 374 Th/cmm (150-400); RED BLOOD COUNT 3.32 Mil/cmm (3.80-5.10); RED CELL DISTRIBUTION WIDTH 14.2 % (11.5-20.0); WHITE BLOOD COUNT 7.9 Th/cmm (4.8-10.8)
[2018-11-17 15:29] LABS: INR 1.11 (0.5-1.4); PROTHROMBIN TIME (TEST) 11.4 SECONDS (9.5-11.5)
[2018-11-17 15:34] LABS: ALB/GLOB RATIO 0.7 (1.0-1.8); ALBUMIN 3.3 gm/dL (3.7-5.3); ALKALINE PHOSPHATASE 148 U/L (34-104); ANION GAP 11.3 (7.0-16.0); BILIRUBIN,TOTAL 0.6 mg/dL (0.3-1.0); BUN - UREA NITROGEN 24 mg/dL (7-25); CARBON DIOXIDE 29.9 mEq/L (21.0-31.0); CHLORIDE 99 mEq/L (98-107); CHOLESTEROL 106 mg/dL (<200); CREATININE - SERUM 0.5 mg/dL (0.6-1.2); CREATININE KINASE 33 U/L (30-223); GFR AFRICAN-AMERICAN > 60.0 ml/min (>90); GFR NON AFRICAN-AMERICAN > 60.0 ml/min; GLUCOSE 95 mg/dL (70-105); HDL -HIGH DENSITY LIPOPROTEIN 21 mg/dL (23-92); POTASSIUM SERUM 4.2 mEq/L (3.5-5.1); SGOT 14 U/L (13-39); SGPT/ALT 29 U/L (7-52); SODIUM SERUM 136 mEq/L (136-145); TOTAL PROTEIN,SERUM 7.8 gm/dL (6.0-8.3); TRIGLYCERIDES 152 mg/dL (<150)
[2018-11-17 16:05] LABS: BAND NEUTROPHILE 0 % (0-10); BASOPHIL 0 % (0-3); EOSINOPHIL 2 % (0-5); LYMPHOCYTE 8 % (20-50); MONOCYTE 5 % (2-10); NEUTROPHILS 85 % (40-80)
[2018-11-17] MEDS ORDERED: cefTRIAXone 1 GM in Sodium Chloride 0.9% 50 ML IV ONE (16:55)
--- NOTE | 2018-11-17 17:02 | ED Physician Chart ---
ED Chief Complaint/HPI - Patient Information Date Seen:: 11/17/18 Time Seen:: 15:00 Chief Complaint:: Syncope History of Present Illness:: onset x 2 days of syncope resulting in a fall with abnormal labs reported today ; no report of H/As, neck pain, C/P, SOB, Abd. Pain, A/N/V/D/C, fever, chills, or urinary s/s; pt's last tetanus shot: < 5 years; UTD; pt is 10 years post- menopausal Allergies:: Allergies Allergy/AdvReac Type Severity Reaction Status Date / Time No Known Allergies Allergy Verified 01/30/18 15:37 Vitals:: Vital Signs - 8 hr 11/17/18 14:59 Temp 98.8 F HR 67 RR 20 BP 103/58 O2 Sat % 98 Historian:: Patient, EMS Review:: Nurse's Note Reviewed, Old Chart Reviewed, EMS run form Reviewed ED Review of Systems - Review of Systems General/Constitutional: Fever, No chills, No weight loss, Weakness, No diaphoresis, No edema, No loss of appetite Skin: No skin lesions, No rash, No bruising Head: No headache, No light-headedness Eyes: No loss of vision, No pain, No diplopia ENT: No earache, Nasal drainage, No sore throat, No tinnitus Neck: No neck pain, No swelling, No thyromegaly, No stiffness, No mass noted Cardio Vascular: No chest pain, No palpitations, No PND, No orthopnea, No edema Pulmonary: SOB, Cough, No sputum, Wheezing GI: No nausea, No vomiting, No diarrhea, No pain, No melena, No hematochezia, No constipation, No hematemesis G/U: No dysuria, No frequency, No hematuria, No nacturia Manager Business Information: No vaginal discharge, No abnormal vaginal bleed, No contraction Musculoskeletal: No bone or joint pain, No back pain, No muscle pain Endocrine: No polyuria, No polydipsia Psychiatric: No prior psych history, No depression, No anxiety, No suicidal ideation, No homicidal ideation, No auditory hallucination, No visual hallucination Hematopoietic: No bruising, No lymphadenopathy Allergic/Immuno: No urticaria, No angioedema Neurological: Syncope, No focal symptoms, Weakness, No paresthesia, No headache , No seizure, No dizziness, Confusion, No vertigo ED Past Medical History - Past Medical History Obtainable: Yes Past Medical History: HTN, Asthma/COPD, Dyslipidemia, Arthritis, Dementia Family History: HTN Social History: Non Smoker, No Alcohol, No Drug Use, Single, Care Facility Surgical History: other (Tracheostomy) Psychiatricy History: Dementia Medication: Reviewed Family Medical History - Family Member Mother History Unknown: Yes Hx Family Hypertension: Yes Hx Family Diabetes: Yes ED Physical Exam - Physical Examination General/Constitutional: Awake, Well-developed, well-nourished, Alert, No distress, GCS 15, Non-toxic appearing, Ambulatory Head: Atraumatic Eyes: Lids, conjuctiva normal, PERRL, EOMI Skin: Nl inspection, No rash, No skin lesions, No ecchymosis, Well hydrated, No lymphadenopathy ENMT: External ears, nose nl, TM canals nl, Nasal exam nl, Lips, teeth, gums nl , Oropharynx nl, Tonsils nl Neck: Nontender, Full ROM w/o pain, No JVD, No nuchal rigidity, No bruit, No mass, No stridor Respiratory: Nl effort/Exclusion, Clear to Auscultation, No Wheeze/Rhonchi/Rales Cardio Vascular: RRR, No murmur, gallop, rubs, NL S1 S2, Carotid/Femoral/Distal pulses equal bilaterally GI: No tenderness/rebounding/guarding, No organomegaly, No hernia, Normal BS's, Nondistended, No mass/bruits, No McBurney tenderness, Rectum exam nl : No CVA tenderness Extremities: No tenderness or effusion, Full ROM, normal strength in all extremities, No edema, Normal digits & nails Neuro/Psych: Alert/oriented, DTR's symmetric, Normal sensory exam, Normal motor strength, Judgement/insight normal, Mood normal, Normal gait, No focal deficits Misc: Normal back, No paraspinal tenderness ED Labs/Radiology/EKG Results - Lab Results Results: Laboratory Tests 11/17/18 11/17/18 11/17/18 15:07 15:07 15:07 WBC 7.9 RBC 3.32 L Hgb 10.2 L Hct 30.3 L MCV 91.3 MCH 30.7 MCHC Differential 33.6 RDW 14.2 Plt Count 374 MPV 7.3 Add Manual Diff YES Band Neutrophils % 0 Neutrophils (Manual) 85 H Lymphocytes 8 L Monocytes 5 Eosinophils 2 Basophils 0 PT 11.4 INR 1.11 Sodium 136 Potassium 4.2 Chloride 99 Carbon Dioxide 29.9 Anion Gap 11.3 BUN 24 Creatinine 0.5 L Est GFR ( Amer) > 60.0 Est GFR (Non-Af Amer) > 60.0 BUN/Creatinine Ratio 48.0 Glucose 95 Calcium 10.0 Total Bilirubin 0.6 AST 14 ALT 29 Alkaline Phosphatase 148 H Creatine Kinase 33 Troponin I B-Natriuretic Peptide Total Protein 7.8 Albumin 3.3 L Globulin 4.5 Albumin/Globulin Ratio 0.7 L Triglycerides 152 H Cholesterol 106 LDL Cholesterol Direct 68 L HDL Cholesterol 21 L 11/17/18 11/17/18 15:07 15:07 WBC RBC Hgb Hct MCV MCH MCHC Differential RDW Plt Count MPV Add Manual Diff Band Neutrophils % Neutrophils (Manual) Lymphocytes Monocytes Eosinophils Basophils PT INR Sodium Potassium Chloride Carbon Dioxide Anion Gap BUN Creatinine Est GFR ( Amer) Est GFR (Non-Af Amer) BUN/Creatinine Ratio Glucose Calcium Total Bilirubin AST ALT Alkaline Phosphatase Creatine Kinase Troponin I 0.01 B-Natriuretic Peptide 73.4 Total Protein Albumin Globulin Albumin/Globulin Ratio Triglycerides Cholesterol LDL Cholesterol Direct HDL Cholesterol Comments:: Reviewed - Radiology Results Comments:: + Sinusitis; DJD - EKG Interpretations EKG Time:: 14:57 Rate & Rhythm: 68; NSR Comments:: old ASMI; non-specific st-t changes ED Septic Shock - . Is Septic Shock (SBP<90, OR Lactate>4 mmol\L) present?: No - <6hrs of presentation: Vital Signs: Vital Signs - 8 hr 11/17/18 14:59 Temp 98.8 F HR 67 RR 20 BP 103/58 O2 Sat % 98 ED Reassessment (Disposition) - Reassessment Reassessment Condition:: Improved - Diagnosis Diagnosis:: Syncope; Fall; Osteoarthritis; Sinusitis; Anemia; Hypoalbuminemia; Hyperlipidemia - Aftercare/Follow up Instructions Aftercare/Follow-Up Instructions:: Counseled pt regarding lab results/diagnosis & need follow up, Counseled pt & family regarding lab results/diagnosis & need follow up - Patient Disposition Discharge/Transfer:: Acute Care w/in this hosp Accepting Physician:: Dr. Kearns Time Called:: [phone] Time Responded:: 16:45 Admitted to:: Telemetry Spoke to:: Dr. Kearns Admitting Medical Physician:: Dr. Kearns Condition at Disposition:: Stable, Improved
[2018-11-17 19:06] VITALS: BP 106/63
--- NOTE | 2018-11-18 08:21 | Diagnostic Imaging Report ---
CT scan of the brain without intravenous contrast HISTORY: Headache, trauma Total DLP equals 603 CTDI equals 33.3 Axial sections were obtained from the base of the skull the vertex. There is a normal ventricular system size for age. Mild prominence of cerebral sulci and subarachnoid consistent reflect a degree of atrophy. Hypodensity is noted within the supratentorial white matter regions without mass effect. Findings may be associated with chronic small vessel ischemic disease. No acute parenchymal abnormalities. No intracerebral hemorrhage. No mass effect or shift of midline structures. No extra-axial masses or abnormal fluid collections. There is complete opacification of the visualized portion of the left maxillary sinus. Mild mucosal thickening noted within the left ethmoid and sphenoid sinus regions. Findings consistent with inflammatory change. There is fluid within the mastoid air cells bilaterally also consistent with inflammatory change. IMPRESSION: 1. No definite acute intracerebral abnormalities 2. Mild cerebral atrophy 3. Hypodensity within the supratentorial white matter regions. The findings may be associated with chronic small vessel ischemic disease. If indicated, a follow-up MRI exam would provide additional assessment and evaluation. 4. Complete opacification of the visualized portion of the left maxillary sinus with evidence of mucosal thickening in the left ethmoid and sphenoid sinus regions. Evidence of fluid within the mastoid air cells bilaterally. Changes consistent with an inflammatory etiology.
--- NOTE | 2018-11-18 08:25 | Diagnostic Imaging Report ---
CT scan cervical spine HISTORY: Pain, trauma Total DLP equals 228 CTDI equals 12.1 Axial sections were obtained to the cervical spine. Additional sagittal and coronal reformatted images are provided. The exam demonstrates relatively severe degenerative changes with hypertrophic spur formation noted about the endplates of C5, C6, and C7. Narrowing of the C5-6 interspace. Spur formation results in a mild extradural indentation on the anterior spinal canal at C5-6. No acute abnormalities. No fractures. The prevertebral soft tissues appear normal. Extensive atherosclerotic vascular changes are seen. Metallic densities noted in the right neck area. Surgical clips noted in the right paratracheal area. IMPRESSION: 1. No acute bony abnormalities 2. Degenerative changes most pronounced at C5-6 3. Atherosclerotic vascular changes 4. Surgical changes along with additional metallic densities within the right neck area.
--- NOTE | 2018-11-18 08:31 | Diagnostic Imaging Report ---
Portable chest x-ray HISTORY: Pain Compared with prior exam of April 07, 2018, the overall heart size appears normal. There is generalized accentuation of the interstitial lung markings unchanged from the prior study. No acute focal processes are seen. Tracheostomy noted. Surgical changes seen within the soft tissues of the neck. IMPRESSION: 1. Generalized accentuation of the interstitial lung markings which appear chronic and unchanged from April 07, 2018.
[2018-11-18] MEDS: D5-0.45NS 1,000 ML IV SCH (09:02)
[2018-11-18] MEDS: Metoclopramide 5 mg/mL 2mL Vial IVP PRN ×2 (09:11→16:51)
--- NOTE | 2018-11-18 09:34 | Diagnostic Imaging Report ---
KUB abdominal film (portable) HISTORY: Pain There is a nonspecific gas pattern of nondilated bowel. Balloontipped catheter projects over the stomach. No free intraperitoneal air. IMPRESSION: Nonspecific bowel gas pattern
[2018-11-18 09:58] LABS: AMYLASE SERUM 11 U/L (29-103); LIPASE 12 U/L (11-82)
[2018-11-18] MEDS ORDERED: IOHEXOL 300mgI/mL 100 ML VIAL PO ONE (10:20)
[2018-11-18] MEDS ORDERED: Diatrizoate Meglumine/Diatri 30 mL Sol PO ONE (10:20)
[2018-11-18 13:52] LABS: % BASOPHILS 0.5 % (0.0-2.0); % EOSINOPHILS 2.5 % (0.0-5.0); % LYMPHOCYTES 11.6 % (20.0-50.0); % NEUTROPHILS 79.4 % (40.0-80.0); EOSINOPHILE ABSOLUTE 0.2 Th/cmm (0.1-0.4); HEMATOCRIT 29.9 % (41.0-60); HEMOGLOBIN 10.3 gm/dL (12-16); MEAN CELL VOLUME 92.1 fl (81-100); MEAN CORPUSCULAR HEMOGLOBIN 31.6 pg (27.0-31.0); MEAN CORPUSCULAR HGB CONC 34.3 pg (28.0-36.0); MONOCYTE ABSOLUTE 0.5 Th/cmm (0.3-1.0); PLATELET COUNT 367 Th/cmm (150-400); RED BLOOD COUNT 3.25 Mil/cmm (3.80-5.10); RED CELL DISTRIBUTION WIDTH 14.5 % (11.5-20.0); WHITE BLOOD COUNT 8.7 Th/cmm (4.8-10.8)
[2018-11-18] MEDS ORDERED: Heparin 25,000 Units In D5W 25,000 UNITS/250 ML BAG IV PRN (14:00)
[2018-11-18] MEDS ORDERED: Docusate Sodium 100 mg/10 mL UD GT PRN (16:38)
[2018-11-18] MEDS ORDERED: Albuterol Nebulizer 2.5mg/3mL HHN PRN (16:38)
[2018-11-18] MEDS ORDERED: CHLORHEXIDINE PO SCH (16:45)
--- NOTE | 2018-11-18 18:13 | History & Physical ---
ADMIT DATE: 11/17/2018 HISTORY OF PRESENT ILLNESS: The patient is well known to me. The patient is known to have a history of end-stage emphysema. She is status post trach, status post PEG, and also has a history of several sepsis and septic shock in the past. Apparently, the patient is at [facility]. They called me. The patient has fell down, hit her head and she was little confused and was sent to Emergency Room, [facility] evaluated for syncope and the patient has prior history of hypertension, asthma, COPD, arthritis, dementia, and hyperlipidemia, was admitted for a concussion, syncope, history of fall, history of osteoarthritis, anemia, hypoalbuminemia, malnutrition, hyperlipidemia. PHYSICAL EXAMINATION: GENERAL: Awake, alert, not in no acute distress. VITAL SIGNS: Stable. HEAD: Normal. ENT: Normal. LUNGS: Bilateral rales. CARDIOVASCULAR SYSTEM: S1, S2 heard. ABDOMEN: Soft. Bowel sounds are heard. CENTRAL NERVOUS SYSTEM: Slightly decreased sensorium. LABORATORY DATA: Hemoglobin 10.2, hematocrit was okay. Electrolytes were okay. EKG showed normal sinus rhythm, nonspecific ST-T changes. Vital signs are stable. Heart rate of 67, respiratory rate 20, blood pressure is 103/58. DIAGNOSES: Syncopal episode, rule out cardiac arrhythmia, history of fall, history of head trauma with several compression, osteoarthritis, sinusitis, anemia, hypoalbuminemia, hyperlipidemia, malnutrition, and dementia. PLAN: The patient is being admitted. I will go ahead and I will have Dr. Mayes for Pulmonary see the patient. Dr. Kimball, for Neuro see the patient and I will follow the patient. I will have neuro checks as well as breathing treatment. JOB# [id number]
[2018-11-18] MEDS: Chlorhexidine Gluconate 0.12% 15mL Mouthwash MM SCH (18:47)
[2018-11-18] MEDS: Albuterol/Ipratropium Neb 3 ML AERS HHN SCH ×2 (18:51→22:23)
[2018-11-18] MEDS: Nitrofurantoin, Macrocrystals 50 mg Cap GT SCH (20:55)
[2018-11-19] MEDS: Nitrofurantoin, Macrocrystals 50 mg Cap GT SCH ×4 (00:38→19:09)
[2018-11-19] MEDS: Albuterol/Ipratropium Neb 3 ML AERS HHN SCH ×6 (02:23→23:58)
--- NOTE | 2018-11-19 02:41 | Consultation ---
DATE OF CONSULTATION: 11/18/2018 INFECTIOUS DISEASE CONSULTATION REFERRING PHYSICIAN: Dr. Kearns. REASON FOR CONSULTATION: Sacral wound. HISTORY OF PRESENT ILLNESS: The patient is a 58-year-old female with a past medical history of hypertension, respiratory failure on T-bar oxygen, coronary artery disease, asthma, COPD, history of CVA, dyslipidemia, GERD, arthritis, dementia, brought in from nursing facility for witness fall. The patient hit her head and got confused. She was brought to the ER for further evaluation and management. On initial evaluation, the patient's temperature was 98.8 degree Fahrenheit and WBC count was 7900. Chest x-ray, chronic changes. No new infiltrate. The patient found to have sacral decubitus ulcer, stage 4 and ID consult was called for further evaluation. PAST MEDICAL HISTORY: As mentioned above. The patient has a history of respiratory failure on T-bar oxygen, COPD, asthma, hypertension, arthritis, dementia, dyslipidemia, chronic sacral decubitus ulcer. ALLERGIES: NKDA. MEDICATIONS: See medication reconciliation sheet. ANTIBIOTICS: Include colistin nebulizer, nitrofurantoin. SOCIAL HISTORY: The patient lives in a nursing facility. No history of smoking, alcohol or drug use. FAMILY HISTORY: Hypertension. SOCIAL HISTORY: The patient has no smoking, no alcohol, no drug use. The patient is single and lives at care facility. FAMILY HISTORY: Hypertension. REVIEW OF SYSTEMS: GENERAL: The patient has no fever, no chills, no weight loss, no weakness. Bedridden. HEENT: No diplopia, no photophobia, no sore throat. RESPIRATORY: No cough, no shortness of breath. The patient is on T-bar oxygen. CARDIOVASCULAR: No chest pain or palpitation. GASTROINTESTINAL: No nausea, no vomiting, no diarrhea, no constipation. GENITOURINARY: No dysuria. NEUROLOGIC: No headache, no dizziness, no focal weakness. SKIN: The patient has sacral decubitus ulcer, stage 4. PHYSICAL EXAMINATION: VITAL SIGNS: Currently shows temperature is 97.9, pulse 87, respirations 17, blood pressure 108/72. GENERAL: The patient is comfortable lying in bed, not in acute distress. HEENT: Head is normocephalic, atraumatic. Oral cavity moist and pink. NECK: Supple. No JVD. Trach site is clear. CHEST: Bilateral breath sounds. Crackles present. HEART: S1, S2 within normal limits. Regular rhythm. No murmur, no gallop. ABDOMEN: Soft, nontender, nondistended. Bowel sounds present. G-tube site is clear. EXTREMITIES: No cyanosis, no clubbing, no edema. NEUROLOGIC: Alert, awake. BACK: The patient has sacral stage 4 ulcer with no slough very clean base. No discharge, well defined border. No surrounding erythema, no induration. LABORATORY DATA: WBC count 8700, hemoglobin 10.3, platelets are 367,000, neutrophil is 79.4%. Sodium 136, potassium 4.2, chloride 99, bicarbonate is 29.9, BUN is 24, creatinine 0.5, glucose is 95. Chest x-ray showed chronic interstitial changes. IMPRESSION: 1. Sacral decubitus ulcer, stage 4. No sign of infection. 2. Chronic obstructive pulmonary disease. 3. Respiratory failure on T-bar oxygen. 4. May have history of urinary tract infection as the patient receiving nitrofurantoin. 5. Acinetobacter baumannii complex colonization. 6. History of cerebrovascular accident. 7. Carotid disease. 8. Protein-calorie malnutrition. 9. History of fall. PLAN AND RECOMMENDATIONS: We will continue wound care. Discontinue colistin nebulizer and check the urine culture. If it is negative, may discontinue nitrofurantoin also. Thank you, Dr. Kearns for involving me in taking care of this patient. JOB# [id number]
--- NOTE | 2018-11-19 03:36 | Consultation ---
DATE OF CONSULTATION: 11/18/2018 NEUROLOGY CONSULT HISTORY OF PRESENT ILLNESS: The patient is 58 years old. The patient admitted because of passing out. The patient is lying in bed. She has a tracheostomy, T-Bar. G-tube. Reason unclear to me from the records. The patient is awake, alert. She will interact with gestures. She seems to follow instructions. She will move upper extremity, no movement of the lower extremities. PAST MEDICAL HISTORY: Hypertension, asthma, COPD, dyslipidemia, arthritis, dementia. SURGERIES: Tracheostomy, G-tube. MEDICATIONS: As per reconciliation. Here, the patient on lorazepam p.r.n. REVIEW OF SYSTEMS: The patient lying in bed. Tracheostomy T-Bar. Moving upper extremity. No moving of the lower extremity. There is a lot of atrophy of the lower extremities. No seizures here noted. No episode of passing out here. No chest pain. PHYSICAL EXAMINATION: VITAL SIGNS: Temperature 99.0, blood pressure 94/58, pulse is 90. NECK: Supple. No neck bruits. Bilateral crepitations. ABDOMEN: Soft. G-tube. NEUROLOGIC: The patient is awake, alert. She will interact with gestures. Follows instructions. She will open and close her eyes. EXTREMITIES: The patient lift both arms up. Good strength about 4/5. Legs, really no movement, lot of atrophy of the legs. Reflexes about 1 upper extremity, absent in the knees and ankles. ASSESSMENT: 1. Loss of consciousness, syncope. 2. The patient with respiratory failure, chronic. 3. Dysphagia. 4. Paraplegia. 5. Dementia. 6. Hypertension. 7. Asthma. 8. Chronic obstructive pulmonary disease. PLAN: CT scan of the head, carotid Doppler studies. JOB# [id number]
--- NOTE | 2018-11-19 03:53 | Consultation ---
DATE OF CONSULTATION: 11/18/2018 INPATIENT GASTROINTESTINAL CONSULTATION REFERRING PHYSICIAN: Dr. Kearns. REASON FOR CONSULTATION: Generalized abdominal pain. HISTORY OF PRESENT ILLNESS: A 58-year-old female who came to the hospital initially because of a syncopal event and a fall. The patient has some nausea, but no vomiting. Has heartburn, has abdominal pain, diffuse. Denies diarrhea or constipation. Denies melena, hematochezia, hematemesis, or coffee ground emesis. PAST MEDICAL HISTORY: Hypertension, asthma, COPD, hyperlipidemia, arthritis, dementia. PAST SURGICAL HISTORY: Tracheostomy and PEG tube placement. FAMILY HISTORY: Noncontributory. SOCIAL HISTORY: No tobacco, alcohol or IV drug usage. ALLERGIES: None. CURRENT MEDICATIONS: Ativan, Reglan, Protonix. REVIEW OF SYSTEMS: Ten point review of system was performed and was notable for the nausea, abdominal pain, and syncope. All the systems were otherwise negative. PHYSICAL EXAMINATION: VITAL SIGNS: Temperature 98.3, breathing 20, pulse of 92, blood pressure 97/64, satting 98%. GENERAL: In no apparent distress, thin. EYES: Anicteric. Normal conjunctivae. HEENT: Normocephalic, atraumatic. Moist mucous membranes. NECK: Soft, supple. CHEST: Clear, normal effort. CARDIOVASCULAR: Regular rate and rhythm. ABDOMEN: Soft, nondistended, mildly tender. No rebound, no guarding, G-tube. SKIN: Warm, dry. EXTREMITIES: Reveal no cyanosis. PSYCHOLOGICAL: Awake and alert. KUB was nonspecific gas pattern. LABORATORY DATA: Show white count 7.9, hemoglobin 10.2, platelets of 374. INR 1.11, creatinine 0.5, total bilirubin 0.6, AST 14, ALT 19, alkaline phosphatase 148, lipase 12, amylase 211. IMPRESSION: A 58-year-old female with generalized abdominal pain of unclear etiology, could be due to constipation versus gastroesophageal reflux disease, gastritis, dyspepsia, ileus, etc. There is no imaging tests so far, so we will order a CT scan. The LFTs are only showing elevated alkaline phosphatase, which could be from liver or nonhepatic source. Amylase and lipase being normal and makes pancreatitis less likely. PLAN: 1. Check a CT abdomen and pelvis. 2. Check GGT to determine the origin of the alkaline phosphatase. 3. Continue Protonix. 4. Additional ____ to follow. Thank you for allowing me to participate. Please call me if any questions. JOB# [id number]
[2018-11-19 04:10] LABS: URINE SOURCE FOLEY PORT
[2018-11-19] MEDS: Hydrocodone/APAP 10 mg/325 mg Tab GT PRN (04:16)
[2018-11-19 04:18] LABS: URINE BILIRUBIN NEGATIVE (NEGATIVE); URINE BLOOD TRACE (NEGATIVE); URINE GLUCOSE (UA) NEGATIVE (NEGATIVE); URINE KETONE NEGATIVE (NEGATIVE); URINE LEUKOCYTE ESTERASE NEGATIVE (NEGATIVE); URINE MICROSCOPIC INDICATED? YES; URINE NITRATE NEGATIVE (NEGATIVE); URINE PROTEIN NEGATIVE (NEGATIVE)
[2018-11-19] MEDS: D5-0.45NS 1,000 ML IV SCH (04:22)
[2018-11-19 04:50] LABS: URINE COLOR YELLOW
[2018-11-19 04:51] LABS: URINE BACTERIA NONE SEEN /hpf (NONE SEEN); URINE CLARITY CLEAR (CLEAR); URINE EPITHELIAL CELLS RARE /lpf (FEW); URINE RBC 0-2 /hpf (0-5); URINE WBC 0-2 /hpf (0-5)
[2018-11-19 04:55] LABS: URINE OTHER CRYSTALS MODERATE /hpf
[2018-11-19] MEDS: Budesonide 0.5 Mg/2 mL Ud HHN SCH ×2 (06:43→19:40)
--- NOTE | 2018-11-19 08:19 | Consultation ---
DATE OF CONSULTATION: 11/18/[address] Kearns for this consultation. HISTORY OF PRESENT ILLNESS: This is a 58-year-old female with history of chronic respiratory failure, history of advanced emphysema, dysphagia, status post sepsis, assisted resident, tracheostomy. She presented with this fall and confusion, brought in and admitted for further treatment and management. The patient has a significant amount of secretions from the tracheostomy, not in distress, she is very weak. OTHER PAST MEDICAL HISTORY: As above. SOCIAL HISTORY: History of smoking in the past. REVIEW OF SYSTEMS: Unable to obtain because of the patient's condition. PHYSICAL EXAMINATION: GENERAL: The patient is arousable, not in any acute distress. VITAL SIGNS: Temperature is 98.2, pulse 79, respiration is 18, blood pressure 100/58, saturation 98%. HEENT: Atraumatic, normocephalic. Pupils reactive to light and accommodation. Ears, nose, and throat normal. NECK: Supple. No JVD. CHEST: There are few rhonchi in bases. HEART: Regular rate and rhythm. ABDOMEN: Soft. EXTREMITIES: No edema. LABORATORY DATA: WBC is 8.7, hemoglobin 10.3, hematocrit 29.9, platelets 367. Sodium 136, potassium 4.2, BUN 24, creatinine 0.5. Chest x-ray showed infiltrate in the right side and some chronic changes. IMPRESSION: 1. This is a 58-year-old female with some chronic respiratory failure. 2. Acute bronchitis. 3. Early pneumonia. 4. Chronic obstructive pulmonary disease. 5. Dysphagia. 6. Dementia. PLAN: 1. Continue nebulized treatment. 2. Antibiotics. 3. Supportive care. 4. Sputum cultures. 5. Follow up chest x-ray. I will follow the patient with you. Thank you very much for this consultation. JOB# [id number]
[2018-11-19 08:27] LABS: HEMATOCRIT 27.8 % (41.0-60); HEMOGLOBIN 9.2 gm/dL (12-16); MEAN CELL VOLUME 91.9 fl (81-100); MEAN CORPUSCULAR HEMOGLOBIN 30.4 pg (27.0-31.0); MEAN CORPUSCULAR HGB CONC 33.1 pg (28.0-36.0); PLATELET COUNT 335 Th/cmm (150-400); RED BLOOD COUNT 3.02 Mil/cmm (3.80-5.10); RED CELL DISTRIBUTION WIDTH 14.1 % (11.5-20.0)
[2018-11-19 08:48] LABS: ALB/GLOB RATIO 0.8 (1.0-1.8); ALKALINE PHOSPHATASE 130 U/L (34-104); ANION GAP 11.3 (7.0-16.0); BILIRUBIN,TOTAL 0.3 mg/dL (0.3-1.0); BUN - UREA NITROGEN 19 mg/dL (7-25); CALCIUM SERUM 9.5 mg/dL (8.6-10.3); CARBON DIOXIDE 28.4 mEq/L (21.0-31.0); CHLORIDE 104 mEq/L (98-107); CREATININE - SERUM 0.5 mg/dL (0.6-1.2); GFR AFRICAN-AMERICAN > 60.0 ml/min (>90); GFR NON AFRICAN-AMERICAN > 60.0 ml/min; GLUCOSE 130 mg/dL (70-105); POTASSIUM SERUM 4.7 mEq/L (3.5-5.1); SGOT 12 U/L (13-39); SGPT/ALT 20 U/L (7-52); SODIUM SERUM 139 mEq/L (136-145); TOTAL PROTEIN,SERUM 6.9 gm/dL (6.0-8.3)
[2018-11-19 08:57] LABS: BAND NEUTROPHILE 2 % (0-10); BASOPHIL 0 % (0-3); EOSINOPHIL 6 % (0-5); LYMPHOCYTE 28 % (20-50); MONOCYTE 9 % (2-10); NEUTROPHILS 55 % (40-80)
[2018-11-19] MEDS: Multivitamin w/ Minerals 15 mL UDC GT SCH (09:09)
[2018-11-19] MEDS: Magnesium Hydroxide (MOM) 30 mL UDC GT SCH (09:10)
--- NOTE | 2018-11-19 09:23 | Diagnostic Imaging Report ---
CT abdomen and pelvis with intravenous contrast Indication: Abdominal pain, G-tube placement Comparison: None, Technique: Axial images were obtained from the lung bases to the bilateral proximal femurs without IV and enteric contrast. Multiplanar reconstructions were made. total DLP: 322, CTDI6.5 FINDINGS: Exam is limited due to motion. Chronic emphysematous changes bases are seen with left basal consolidation and trace left pleural fluid. Minimal right basal passive atelectasis is also noted. No obvious focal hepatic lesions. No focal splenic lesions. The pancreas is suboptimally visualized on this exam. The Adrenal glands also poorly visualized. No evidence of hydronephrosis or focal renal lesions. Culp catheter seen within collapsed urinary bladder with probable tiny air pocket. A percutaneous gastric feeding tube is noted with generalized gas filled loops of bowel. There is progression of oral contrast to the large bowel without evidence of obstruction. No obvious leak is identified. Appendix is not visualized. There may be trace fluid in the free fluid in the pelvis. No free air. Degenerative changes of the spine and pelvis are noted with probable scoliosis. Mild atherosclerosis noted. IMPRESSION: Percutaneous gastric feeding tube noted. There is enteric contrast opacification of the stomach and small and large bowel loops without evidence of obstruction. No gross leak identified. Gas-filled loops of bowel are noted which may be due to a mild ileus. Questionable trace free fluid in the pelvis. Culp catheter within collapsed in the bladder. Tiny air pocket in the urinary bladder cannot be excluded, significance doubtful. Left lower lobe consolidation/pneumonia and trace left effusion. Mild atherosclerosis. Cachexia.
[2018-11-19] MEDS: Chlorhexidine Gluconate 0.12% 15mL Mouthwash MM SCH ×2 (09:24→17:30)
[2018-11-19] MEDS ORDERED: IOHEXOL 300mgI/mL 100 ML VIAL PO ONE (11:17)
--- NOTE | 2018-11-19 13:26 | Infectious Disease Prog Note ---
Infectious Disease Subjective - Review of Systems Service Date: 11/19/18 Infectious Disease Objective - Results Result Diagrams: 11/19/18 08:18 11/19/18 08:18 Recent Labs: Laboratory Last Values WBC 4.0 Th/cmm (4.8-10.8) L D 11/19/18 08:18 RBC 3.02 Mil/cmm (3.80-5.10) L 11/19/18 08:18 Hgb 9.2 gm/dL (12-16) L 11/19/18 08:18 Hct 27.8 % (41.0-60) L 11/19/18 08:18 MCV 91.9 fl (81-100) 11/19/18 08:18 MCH 30.4 pg (27.0-31.0) 11/19/18 08:18 MCHC Differential 33.1 pg (28.0-36.0) 11/19/18 08:18 RDW 14.1 % (11.5-20.0) 11/19/18 08:18 Plt Count 335 Th/cmm (150-400) 11/19/18 08:18 MPV 7.0 fl 11/19/18 08:18 Add Manual Diff YES 11/19/18 08:18 Neutrophils % 79.4 % (40.0-80.0) 11/18/18 09:06 Band Neutrophils % 2 % (0-10) 11/19/18 08:18 Lymphocytes % 11.6 % (20.0-50.0) L 11/18/18 09:06 Monocytes % 6.0 % (2.0-10.0) 11/18/18 09:06 Eosinophils % 2.5 % (0.0-5.0) 11/18/18 09:06 Basophils % 0.5 % (0.0-2.0) 11/18/18 09:06 Neutrophils (Manual) 55 % (40-80) 11/19/18 08:18 Lymphocytes 28 % (20-50) 11/19/18 08:18 Monocytes 9 % (2-10) 11/19/18 08:18 Eosinophils 6 % (0-5) H 11/19/18 08:18 Basophils 0 % (0-3) 11/19/18 08:18 PT 11.4 SECONDS (9.5-11.5) 11/17/18 15:07 INR 1.11 (0.5-1.4) 11/17/18 15:07 Sodium 139 mEq/L (136-145) 11/19/18 08:18 Potassium 4.7 mEq/L (3.5-5.1) 11/19/18 08:18 Chloride 104 mEq/L (98-107) 11/19/18 08:18 Carbon Dioxide 28.4 mEq/L (21.0-31.0) 11/19/18 08:18 Anion Gap 11.3 (7.0-16.0) 11/19/18 08:18 BUN 19 mg/dL (7-25) 11/19/18 08:18 Creatinine 0.5 mg/dL (0.6-1.2) L 11/19/18 08:18 Est GFR ( Amer) > 60.0 ml/min (>90) 11/19/18 08:18 Est GFR (Non-Af Amer) > 60.0 ml/min 11/19/18 08:18 BUN/Creatinine Ratio 38.0 11/19/18 08:18 Glucose 130 mg/dL (70-105) H 11/19/18 08:18 Calcium 9.5 mg/dL (8.6-10.3) 11/19/18 08:18 Total Bilirubin 0.3 mg/dL (0.3-1.0) 11/19/18 08:18 GGTP 24 IU/L (0-60) 11/18/18 09:06 AST 12 U/L (13-39) L 11/19/18 08:18 ALT 20 U/L (7-52) 11/19/18 08:18 Alkaline Phosphatase 130 U/L (34-104) H 11/19/18 08:18 Creatine Kinase 33 U/L (30-223) 11/17/18 15:07 Troponin I 0.01 ng/mL (0.01-0.05) 11/17/18 15:07 B-Natriuretic Peptide 73.4 pg/mL (5.0-100.0) 11/17/18 15:07 Total Protein 6.9 gm/dL (6.0-8.3) 11/19/18 08:18 Albumin 3.0 gm/dL (3.7-5.3) L 11/19/18 08:18 Globulin 3.9 gm/dL 11/19/18 08:18 Albumin/Globulin Ratio 0.8 (1.0-1.8) L 11/19/18 08:18 Triglycerides 152 mg/dL (<150) H 11/17/18 15:07 Cholesterol 106 mg/dL (<200) 11/17/18 15:07 LDL Cholesterol Direct 68 mg/dL (75-193) L 11/17/18 15:07 HDL Cholesterol 21 mg/dL (23-92) L 11/17/18 15:07 Amylase 11 U/L (29-103) L 11/18/18 09:06 Lipase 12 U/L (11-82) 11/18/18 09:06 Urine Source [place] 11/19/18 04:00 Urine Color YELLOW 11/19/18 04:00 Urine Clarity CLEAR (CLEAR) 11/19/18 04:00 Urine pH 8.0 (4.6 - 8.0) 11/19/18 04:00 Ur Specific [place] 1.010 (1.005-1.030) 11/19/18 04:00 Urine Protein NEGATIVE mg/dL (NEGATIVE) 11/19/18 04:00 Urine Glucose (UA) NEGATIVE mg/dL (NEGATIVE) 11/19/18 04:00 Urine Ketones NEGATIVE mg/dL (NEGATIVE) 11/19/18 04:00 Urine Blood TRACE (NEGATIVE) 11/19/18 04:00 Urine Nitrate NEGATIVE (NEGATIVE) 11/19/18 04:00 Urine Bilirubin NEGATIVE (NEGATIVE) 11/19/18 04:00 Urine Urobilinogen 1.0 E.U./dL (0.2 - 1.0) 11/19/18 04:00 Ur Leukocyte Esterase NEGATIVE (NEGATIVE) 11/19/18 04:00 Urine RBC 0-2 /hpf (0-5) 11/19/18 04:00 Urine WBC 0-2 /hpf (0-5) 11/19/18 04:00 Ur Epithelial Cells RARE /lpf (FEW) 11/19/18 04:00 Other Crystals MODERATE /hpf 11/19/18 04:00 Urine Bacteria NONE SEEN /hpf (NONE SEEN) 11/19/18 04:00 Other Casts /LPF (NONE SEEN) 11/19/18 04:00 - Physical Exam Vitals and I&O: Vital Signs Temp 96.8 F 11/19/18 11:47 Pulse 75 11/19/18 11:47 Resp 18 11/19/18 11:47 BP 100/71 11/19/18 11:47 Pulse Ox 95 11/19/18 11:47 Intake & Output 11/18/18 11/19/18 11/19/18 18:59 06:59 18:59 Intake Total 700 1966.667 Output Total 350 Balance 350 1966.667 Weight (lbs) 43.545 kg 43.545 kg 43.545 kg Intake: Intake, IV Amount 966.667 D5-0.45NS 1,000 ml @ 50 966.667 mls/hr IV .Q20H [facility] Rx#: [id number] Tube Feeding 500 600 Other 200 400 Output: Urine 350 Other: # Bowel Movements 0 Weight Source Bedscale Bedscale Bedscale Active Medications: Current Medications Acetaminophen/Hydrocodone Bitart ([place] 10 Mg/325 Mg) 1 tab GT Q6H PRN PRN Reason: Pain (Moderate) Stop: 01/17/19 16:37 Last Admin: 11/19/18 04:16 Dose: 1 tab Albuterol Sulfate (Albuterol 2.5mg/3ml Neb Ud) 2.5 mg HHN Q2H PRN PRN Reason: Shortness of Breath Stop: 01/17/19 16:37 Albuterol/Ipratropium (Duoneb Neb) 3 ml HHN Q4HRT [facility] Stop: 01/17/19 18:59 Last Admin: 11/19/18 10:38 Dose: 3 ml Ascorbic Acid (Vitamin C) 500 mg GT Q12HR [facility] Stop: 01/17/19 20:59 Last Admin: 11/19/18 09:09 Dose: 500 mg Budesonide (Pulmicort) 0.5 mg HHN BIDRT [facility] Stop: 01/18/19 06:59 Last Admin: 11/19/18 06:43 Dose: 0.5 mg Carvedilol (Coreg) 6.25 mg GT Q12H [facility] Stop: 01/17/19 16:44 Last Admin: 11/19/18 04:16 Dose: 6.25 mg [place] Oil/Libyan Balsam/Trypsin (Venelex) 1 appl TP MWF@DAILY [facility] Stop: 01/19/19 08:59 Chlorhexidine Gluconate (Peridex) 15 ml MM BID [facility] Stop: 01/17/19 16:59 Last Admin: 11/19/18 09:24 Dose: Not Given Diphenhydramine HCl (Benadryl) 25 mg GT Q8H PRN PRN Reason: Itching Stop: 01/17/19 16:37 Last Admin: 11/18/18 20:54 Dose: 25 mg Docusate Sodium (Colace) 200 mg GT Q12H PRN PRN Reason: Stool softener Dextrose/Sodium Chloride (D5-0.45ns) 1,000 mls @ 50 mls/hr IV .Q20H [facility] Stop: 01/17/19 08:51 Last Admin: 11/19/18 04:22 Dose: 50 mls/hr Lorazepam (Ativan) 1 mg IVP Q4HR PRN; Protocol PRN Reason: Agitation Stop: 01/17/19 03:19 Last Admin: 11/19/18 00:39 Dose: 1 mg Lorazepam (Ativan) 1 mg GT Q6H PRN; Protocol PRN Reason: Anxiety Stop: 01/17/19 16:37 Last Admin: 11/19/18 06:21 Dose: 1 mg Magnesium Hydroxide (Milk Of Magnesia) 30 ml GT DAILY [facility] Stop: 01/18/19 08:59 Last Admin: 11/19/18 09:10 Dose: 30 ml Magnesium Oxide (Mag-Oxide) 400 mg GT BID [facility] Stop: 01/17/19 16:59 Last Admin: 11/19/18 09:10 Dose: 400 mg Metoclopramide HCl (Reglan) 10 mg IVP Q8HR PRN PRN Reason: Abdominal Pain Stop: 01/17/19 08:47 Last Admin: 11/18/18 16:51 Dose: 10 mg Multivitamins/Minerals (Theragran M) 15 ml GT DAILY [facility] Stop: 01/18/19 08:59 Last Admin: 11/19/18 09:09 Dose: 15 ml Nitrofurantoin Macrocrystals (Macrodantin) 100 mg GT Q6HRT [facility] Stop: 01/17/19 18:59 Last Admin: 11/19/18 12:37 Dose: 100 mg Nystatin/Triamcinolone Acetonide (Mycolog Ii Cream) appl TP Q12H [facility] Stop: 01/17/19 16:44 Pantoprazole Sodium (Protonix) 40 mg IVP DAILY [facility] Stop: 01/17/19 08:59 Last Admin: 11/19/18 09:10 Dose: 40 mg Zinc Sulfate (Zinc Sulfate) 220 mg GT DAILY [facility] Stop: 01/18/19 08:59 Last Admin: 11/19/18 09:10 Dose: 220 mg - Procedures Procedures: Procedures Procedure Code Date RESPIRATORY VENTILATION, LESS THAN 24 CONSECUTIVE HOURS [id number] 04/07/18 Infectious Disease Assmt/Plan - Assessment Assessment: 1. Sacral decubitus ulcer, stage 4. No sign of infection. 2. Chronic obstructive pulmonary disease. 3. Respiratory failure on T-bar oxygen. 4. May have history of urinary tract infection as the patient receiving nitrofurantoin. 5. Acinetobacter baumannii complex colonization. 6. History of cerebrovascular accident. 7. Carotid disease. 8. Protein-calorie malnutrition. 9. History of fall. - Plan Plan: dc nitrofurantoin Nutritional Asmnt/Malnutr-PDOC - Dietary Evaluation Malnutrition Findings (Please click <Entered> for more info): Nutritional Asmnt/Malnutrition Start: 11/18/18 14: 42 Text: Status: Complete Freq: Protocol: Document 11/18/18 14:43 [email or web address] (Rec: 11/18/18 15:03 [email or web address]) Nutritional Asmnt/Malnutrition Patient General Information Nutritional Screening High Risk Consult Diagnosis syncope/fall Pertinent Medical Hx/Surgical Hx HTN, asthma/COPD, dyslipidemia , arthritis, dementia, tracheostomy Subjective Information 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 Pt was seen in bed at time of visit, trach to vent. Jevity 1.2 was running at 54ml/hr. Pt appeared fat and muscle wasting. Current Diet Order/ Nutrition Support jevity 1.2 54ml/hr x 20hrs, providing 1296kcal and 60g protein Pertinent Medications d5-0.45ns, reglan, protonix Pertinent Labs 11/17 cr 0.5, alb 3.3, triglycerides 152, LDL 68, HDL 21 Nutritional Hx/Data Height 1.63 m Height (Calculated Centimeters) 162.6 Current Weight (lbs) 43.545 kg Weight (Calculated Kilograms) 43.5 Weight (Calculated Grams) 75924.9 Welch Body Weight 120 Body Mass Index (BMI) 16.5 Weight Status Underweight GI Symptoms GI Symptoms None Last BM not indicated Difficult in: None Food Allergies No Usual diet at home per pt chart, Jevity 1.5 at 54 ml/hr for 20hr to provide 1620kcal/day at care facility Skin Integrity/Comment: rash to left hand, reddened left foot, discoloration to lower legs, ulceration to coccyx Estimated Nutritional Goals BEE in Kcals: Using Current wt Calories/Kcals/Kg 30-35 Kcals Calculated 1602-7098 Protein: Using Current wt Protein g/k.2-1.4 Protein Calculated 52-61 Fluid: ml 3890-2667 (1ml/kcal) Nutritional Problem 2. Problem Problem increased energy needs Etiology muscle wasting and wound healing Signs/Symptoms: BMI 16.5, stage 4 coccyx wound 1. Problem Problem inadequate energy/protein intake Etiology increased metabolic demand for wound healing Signs/Symptoms: stage 4 coccyx wound Malnutrition Alert Body Fat Depletion (Severe) Mod to Severe Depletion Muscle Mass (Severe) Mod to Severe Depletion Is there a minimum of two criteria Yes selected? Query Text:Check all the applicable criteria. A minimum of two criteria are recommended for diagnosis of either severe or non-severe malnutrition. Malnutrition Related to Morbid Obesity Malnutrition related to morbid obesity No Intervention/Recommendation Comments 1. Recommend Jevity 1.2 at 54ml/hr continuous, providing 1555kcal, 72g protein, 1045ml free water, meeting 100% of nutritional needs. Tried to reach RN about the TF recommendaction but not available at this time. Will follow up again. 2. Monitor TF rate, tolerance, wt, skin integrity and labs 3. F/U as high risk in 2-3 days Expected Outcomes/Goals Expected Outcomes/Goals 1. Pt to meet at least 90% of nutritional needs via nutrition support 2. Wt stability, skin to remain intact, labs to approach WNL. Reviewed by Tiffanie Guaman RD
--- NOTE | 2018-11-19 13:27 | Infectious Disease Prog Note ---
Infectious Disease Subjective - Review of Systems Service Date: 11/19/18 Subjective: There is no new change, no fever,. On t bar oxygen. Infectious Disease Objective - Results Result Diagrams: 11/19/18 08:18 11/19/18 08:18 Recent Labs: Laboratory Last Values WBC 4.0 Th/cmm (4.8-10.8) L D 11/19/18 08:18 RBC 3.02 Mil/cmm (3.80-5.10) L 11/19/18 08:18 Hgb 9.2 gm/dL (12-16) L 11/19/18 08:18 Hct 27.8 % (41.0-60) L 11/19/18 08:18 MCV 91.9 fl (81-100) 11/19/18 08:18 MCH 30.4 pg (27.0-31.0) 11/19/18 08:18 MCHC Differential 33.1 pg (28.0-36.0) 11/19/18 08:18 RDW 14.1 % (11.5-20.0) 11/19/18 08:18 Plt Count 335 Th/cmm (150-400) 11/19/18 08:18 MPV 7.0 fl 11/19/18 08:18 Add Manual Diff YES 11/19/18 08:18 Neutrophils % 79.4 % (40.0-80.0) 11/18/18 09:06 Band Neutrophils % 2 % (0-10) 11/19/18 08:18 Lymphocytes % 11.6 % (20.0-50.0) L 11/18/18 09:06 Monocytes % 6.0 % (2.0-10.0) 11/18/18 09:06 Eosinophils % 2.5 % (0.0-5.0) 11/18/18 09:06 Basophils % 0.5 % (0.0-2.0) 11/18/18 09:06 Neutrophils (Manual) 55 % (40-80) 11/19/18 08:18 Lymphocytes 28 % (20-50) 11/19/18 08:18 Monocytes 9 % (2-10) 11/19/18 08:18 Eosinophils 6 % (0-5) H 11/19/18 08:18 Basophils 0 % (0-3) 11/19/18 08:18 PT 11.4 SECONDS (9.5-11.5) 11/17/18 15:07 INR 1.11 (0.5-1.4) 11/17/18 15:07 Sodium 139 mEq/L (136-145) 11/19/18 08:18 Potassium 4.7 mEq/L (3.5-5.1) 11/19/18 08:18 Chloride 104 mEq/L (98-107) 11/19/18 08:18 Carbon Dioxide 28.4 mEq/L (21.0-31.0) 11/19/18 08:18 Anion Gap 11.3 (7.0-16.0) 11/19/18 08:18 BUN 19 mg/dL (7-25) 11/19/18 08:18 Creatinine 0.5 mg/dL (0.6-1.2) L 11/19/18 08:18 Est GFR ( Amer) > 60.0 ml/min (>90) 11/19/18 08:18 Est GFR (Non-Af Amer) > 60.0 ml/min 11/19/18 08:18 BUN/Creatinine Ratio 38.0 11/19/18 08:18 Glucose 130 mg/dL (70-105) H 11/19/18 08:18 Calcium 9.5 mg/dL (8.6-10.3) 11/19/18 08:18 Total Bilirubin 0.3 mg/dL (0.3-1.0) 11/19/18 08:18 GGTP 24 IU/L (0-60) 11/18/18 09:06 AST 12 U/L (13-39) L 11/19/18 08:18 ALT 20 U/L (7-52) 11/19/18 08:18 Alkaline Phosphatase 130 U/L (34-104) H 11/19/18 08:18 Creatine Kinase 33 U/L (30-223) 11/17/18 15:07 Troponin I 0.01 ng/mL (0.01-0.05) 11/17/18 15:07 B-Natriuretic Peptide 73.4 pg/mL (5.0-100.0) 11/17/18 15:07 Total Protein 6.9 gm/dL (6.0-8.3) 11/19/18 08:18 Albumin 3.0 gm/dL (3.7-5.3) L 11/19/18 08:18 Globulin 3.9 gm/dL 11/19/18 08:18 Albumin/Globulin Ratio 0.8 (1.0-1.8) L 11/19/18 08:18 Triglycerides 152 mg/dL (<150) H 11/17/18 15:07 Cholesterol 106 mg/dL (<200) 11/17/18 15:07 LDL Cholesterol Direct 68 mg/dL (75-193) L 11/17/18 15:07 HDL Cholesterol 21 mg/dL (23-92) L 11/17/18 15:07 Amylase 11 U/L (29-103) L 11/18/18 09:06 Lipase 12 U/L (11-82) 11/18/18 09:06 Urine Source [place] 11/19/18 04:00 Urine Color YELLOW 11/19/18 04:00 Urine Clarity CLEAR (CLEAR) 11/19/18 04:00 Urine pH 8.0 (4.6 - 8.0) 11/19/18 04:00 Ur Specific [place] 1.010 (1.005-1.030) 11/19/18 04:00 Urine Protein NEGATIVE mg/dL (NEGATIVE) 11/19/18 04:00 Urine Glucose (UA) NEGATIVE mg/dL (NEGATIVE) 11/19/18 04:00 Urine Ketones NEGATIVE mg/dL (NEGATIVE) 11/19/18 04:00 Urine Blood TRACE (NEGATIVE) 11/19/18 04:00 Urine Nitrate NEGATIVE (NEGATIVE) 11/19/18 04:00 Urine Bilirubin NEGATIVE (NEGATIVE) 11/19/18 04:00 Urine Urobilinogen 1.0 E.U./dL (0.2 - 1.0) 11/19/18 04:00 Ur Leukocyte Esterase NEGATIVE (NEGATIVE) 11/19/18 04:00 Urine RBC 0-2 /hpf (0-5) 11/19/18 04:00 Urine WBC 0-2 /hpf (0-5) 11/19/18 04:00 Ur Epithelial Cells RARE /lpf (FEW) 11/19/18 04:00 Other Crystals MODERATE /hpf 11/19/18 04:00 Urine Bacteria NONE SEEN /hpf (NONE SEEN) 11/19/18 04:00 Other Casts /LPF (NONE SEEN) 11/19/18 04:00 - Physical Exam Vitals and I&O: Vital Signs Temp 96.8 F 11/19/18 11:47 Pulse 75 11/19/18 11:47 Resp 18 11/19/18 11:47 BP 100/71 11/19/18 11:47 Pulse Ox 95 11/19/18 11:47 Intake & Output 11/18/18 11/19/18 11/19/18 18:59 06:59 18:59 Intake Total 700 1966.667 Output Total 350 Balance 350 1966.667 Weight (lbs) 43.545 kg 43.545 kg 43.545 kg Intake: Intake, IV Amount 966.667 D5-0.45NS 1,000 ml @ 50 966.667 mls/hr IV .Q20H [facility] Rx#: [id number] Tube Feeding 500 600 Other 200 400 Output: Urine 350 Other: # Bowel Movements 0 Weight Source Bedscale Bedscale Bedscale Active Medications: Current Medications Acetaminophen/Hydrocodone Bitart ([place] 10 Mg/325 Mg) 1 tab GT Q6H PRN PRN Reason: Pain (Moderate) Stop: 01/17/19 16:37 Last Admin: 11/19/18 04:16 Dose: 1 tab Albuterol Sulfate (Albuterol 2.5mg/3ml Neb Ud) 2.5 mg HHN Q2H PRN PRN Reason: Shortness of Breath Stop: 01/17/19 16:37 Albuterol/Ipratropium (Duoneb Neb) 3 ml HHN Q4HRT [facility] Stop: 01/17/19 18:59 Last Admin: 11/19/18 10:38 Dose: 3 ml Ascorbic Acid (Vitamin C) 500 mg GT Q12HR [facility] Stop: 01/17/19 20:59 Last Admin: 11/19/18 09:09 Dose: 500 mg Budesonide (Pulmicort) 0.5 mg HHN BIDRT [facility] Stop: 01/18/19 06:59 Last Admin: 11/19/18 06:43 Dose: 0.5 mg Carvedilol (Coreg) 6.25 mg GT Q12H [facility] Stop: 01/17/19 16:44 Last Admin: 11/19/18 04:16 Dose: 6.25 mg [place] Oil/[place] Balsam/Trypsin (Venelex) 1 appl TP MWF@DAILY [facility] Stop: 01/19/19 08:59 Chlorhexidine Gluconate (Peridex) 15 ml MM BID [facility] Stop: 01/17/19 16:59 Last Admin: 11/19/18 09:24 Dose: Not Given Diphenhydramine HCl (Benadryl) 25 mg GT Q8H PRN PRN Reason: Itching Stop: 01/17/19 16:37 Last Admin: 11/18/18 20:54 Dose: 25 mg Docusate Sodium (Colace) 200 mg GT Q12H PRN PRN Reason: Stool softener Dextrose/Sodium Chloride (D5-0.45ns) 1,000 mls @ 50 mls/hr IV .Q20H [facility] Stop: 01/17/19 08:51 Last Admin: 11/19/18 04:22 Dose: 50 mls/hr Lorazepam (Ativan) 1 mg IVP Q4HR PRN; Protocol PRN Reason: Agitation Stop: 01/17/19 03:19 Last Admin: 11/19/18 00:39 Dose: 1 mg Lorazepam (Ativan) 1 mg GT Q6H PRN; Protocol PRN Reason: Anxiety Stop: 01/17/19 16:37 Last Admin: 11/19/18 06:21 Dose: 1 mg Magnesium Hydroxide (Milk Of Magnesia) 30 ml GT DAILY [facility] Stop: 01/18/19 08:59 Last Admin: 11/19/18 09:10 Dose: 30 ml Magnesium Oxide (Mag-Oxide) 400 mg GT BID [facility] Stop: 01/17/19 16:59 Last Admin: 11/19/18 09:10 Dose: 400 mg Metoclopramide HCl (Reglan) 10 mg IVP Q8HR PRN PRN Reason: Abdominal Pain Stop: 01/17/19 08:47 Last Admin: 11/18/18 16:51 Dose: 10 mg Multivitamins/Minerals (Theragran M) 15 ml GT DAILY [facility] Stop: 01/18/19 08:59 Last Admin: 11/19/18 09:09 Dose: 15 ml Nitrofurantoin Macrocrystals (Macrodantin) 100 mg GT Q6HRT [facility] Stop: 01/17/19 18:59 Last Admin: 11/19/18 12:37 Dose: 100 mg Nystatin/Triamcinolone Acetonide (Mycolog Ii Cream) appl TP Q12H [facility] Stop: 01/17/19 16:44 Pantoprazole Sodium (Protonix) 40 mg IVP DAILY [facility] Stop: 01/17/19 08:59 Last Admin: 11/19/18 09:10 Dose: 40 mg Zinc Sulfate (Zinc Sulfate) 220 mg GT DAILY [facility] Stop: 01/18/19 08:59 Last Admin: 11/19/18 09:10 Dose: 220 mg General: no acute distress, well developed, well nourished HEENT: atraumatic, normocephalic, PERRLA, EOMI Neck: supple, tracheostomy, no thyromegaly, no lymphadenopathy Cardiovascular: S1S2, regular Lungs: clear to auscultation bilaterally, clear to percussion Abdomen: soft, no tender, no distended Extremities: no cyanosis, no clubbing, no edema Neurological: awake, alert, oriented Skin: intact - Procedures Procedures: Procedures Procedure Code Date RESPIRATORY VENTILATION, LESS THAN 24 CONSECUTIVE HOURS [id number] 04/07/18 Infectious Disease Assmt/Plan - Assessment Assessment: 1. Sacral decubitus ulcer, stage 4. No sign of infection. 2. Chronic obstructive pulmonary disease. 3. Respiratory failure on T-bar oxygen. 4. May have history of urinary tract infection as the patient receiving nitrofurantoin. UA is clear. 5. Acinetobacter baumannii complex colonization. 6. History of cerebrovascular accident. 7. Carotid disease. 8. Protein-calorie malnutrition. 9. History of fall. - Plan Plan: dc nitrofurantoin Nutritional Asmnt/Malnutr-PDOC - Dietary Evaluation Malnutrition Findings (Please click <Entered> for more info): Nutritional Asmnt/Malnutrition Start: 11/18/18 14: 42 Text: Status: Complete Freq: Protocol: Document 11/18/18 14:43 [email or web address] (Rec: 11/18/18 15:03 [email or web address]) Nutritional Asmnt/Malnutrition Patient General Information Nutritional Screening High Risk Consult Diagnosis syncope/fall Pertinent Medical Hx/Surgical Hx HTN, asthma/COPD, dyslipidemia , arthritis, dementia, tracheostomy Subjective Information 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 Pt was seen in bed at time of visit, trach to vent. [facility] 1.2 was running at 54ml/hr. Pt appeared fat and muscle wasting. Current Diet Order/ Nutrition Support jevity 1.2 54ml/hr x 20hrs, providing 1296kcal and 60g protein Pertinent Medications d5-0.45ns, reglan, protonix Pertinent Labs 11/17 cr 0.5, alb 3.3, triglycerides 152, LDL 68, HDL 21 Nutritional Hx/Data Height 1.63 m Height (Calculated Centimeters) 162.6 Current Weight (lbs) 43.545 kg Weight (Calculated Kilograms) 43.5 Weight (Calculated Grams) 92521.9 [place] Body Weight 120 Body Mass Index (BMI) 16.5 Weight Status Underweight GI Symptoms GI Symptoms None Last BM not indicated Difficult in: None Food Allergies No Usual diet at home per pt chart, Jevity 1.5 at 54 ml/hr for 20hr to provide 1620kcal/day at care facility Skin Integrity/Comment: rash to left hand, reddened left foot, discoloration to lower legs, ulceration to coccyx Estimated Nutritional Goals BEE in Kcals: Using Current wt Calories/Kcals/Kg 30-35 Kcals Calculated 3416-8309 Protein: Using Current wt Protein g/k.2-1.4 Protein Calculated 52-61 Fluid: ml 6725-4897 (1ml/kcal) Nutritional Problem 2. Problem Problem increased energy needs Etiology muscle wasting and wound healing Signs/Symptoms: BMI 16.5, stage 4 coccyx wound 1. Problem Problem inadequate energy/protein intake Etiology increased metabolic demand for wound healing Signs/Symptoms: stage 4 coccyx wound Malnutrition Alert Body Fat Depletion (Severe) Mod to Severe Depletion Muscle Mass (Severe) Mod to Severe Depletion Is there a minimum of two criteria Yes selected? Query Text:Check all the applicable criteria. A minimum of two criteria are recommended for diagnosis of either severe or non-severe malnutrition. Malnutrition Related to Morbid Obesity Malnutrition related to morbid obesity No Intervention/Recommendation Comments 1. Recommend Jevity 1.2 at 54ml/hr continuous, providing 1555kcal, 72g protein, 1045ml free water, meeting 100% of nutritional needs. Tried to reach RN about the TF recommendaction but not available at this time. Will follow up again. 2. Monitor TF rate, tolerance, wt, skin integrity and labs 3. F/U as high risk in 2-3 days Expected Outcomes/Goals Expected Outcomes/Goals 1. Pt to meet at least 90% of nutritional needs via nutrition support 2. Wt stability, skin to remain intact, labs to approach WNL. Reviewed by Tiffanie Guaman RD
--- NOTE | 2018-11-19 13:47 | GI Progress Note ---
Subjective - Review of Systems Subjective: STILL HAS UPPER ABD PAIN Objective - Results Result Diagrams: 11/19/18 08:18 11/19/18 08:18 Recent Labs: Laboratory Last Values WBC 4.0 Th/cmm (4.8-10.8) L D 11/19/18 08:18 RBC 3.02 Mil/cmm (3.80-5.10) L 11/19/18 08:18 Hgb 9.2 gm/dL (12-16) L 11/19/18 08:18 Hct 27.8 % (41.0-60) L 11/19/18 08:18 MCV 91.9 fl (81-100) 11/19/18 08:18 MCH 30.4 pg (27.0-31.0) 11/19/18 08:18 MCHC Differential 33.1 pg (28.0-36.0) 11/19/18 08:18 RDW 14.1 % (11.5-20.0) 11/19/18 08:18 Plt Count 335 Th/cmm (150-400) 11/19/18 08:18 MPV 7.0 fl 11/19/18 08:18 Add Manual Diff YES 11/19/18 08:18 Neutrophils % 79.4 % (40.0-80.0) 11/18/18 09:06 Band Neutrophils % 2 % (0-10) 11/19/18 08:18 Lymphocytes % 11.6 % (20.0-50.0) L 11/18/18 09:06 Monocytes % 6.0 % (2.0-10.0) 11/18/18 09:06 Eosinophils % 2.5 % (0.0-5.0) 11/18/18 09:06 Basophils % 0.5 % (0.0-2.0) 11/18/18 09:06 Neutrophils (Manual) 55 % (40-80) 11/19/18 08:18 Lymphocytes 28 % (20-50) 11/19/18 08:18 Monocytes 9 % (2-10) 11/19/18 08:18 Eosinophils 6 % (0-5) H 11/19/18 08:18 Basophils 0 % (0-3) 11/19/18 08:18 PT 11.4 SECONDS (9.5-11.5) 11/17/18 15:07 INR 1.11 (0.5-1.4) 11/17/18 15:07 Sodium 139 mEq/L (136-145) 11/19/18 08:18 Potassium 4.7 mEq/L (3.5-5.1) 11/19/18 08:18 Chloride 104 mEq/L (98-107) 11/19/18 08:18 Carbon Dioxide 28.4 mEq/L (21.0-31.0) 11/19/18 08:18 Anion Gap 11.3 (7.0-16.0) 11/19/18 08:18 BUN 19 mg/dL (7-25) 11/19/18 08:18 Creatinine 0.5 mg/dL (0.6-1.2) L 11/19/18 08:18 Est GFR ( Amer) > 60.0 ml/min (>90) 11/19/18 08:18 Est GFR (Non-Af Amer) > 60.0 ml/min 11/19/18 08:18 BUN/Creatinine Ratio 38.0 11/19/18 08:18 Glucose 130 mg/dL (70-105) H 11/19/18 08:18 Calcium 9.5 mg/dL (8.6-10.3) 11/19/18 08:18 Total Bilirubin 0.3 mg/dL (0.3-1.0) 11/19/18 08:18 GGTP 24 IU/L (0-60) 11/18/18 09:06 AST 12 U/L (13-39) L 11/19/18 08:18 ALT 20 U/L (7-52) 11/19/18 08:18 Alkaline Phosphatase 130 U/L (34-104) H 11/19/18 08:18 Creatine Kinase 33 U/L (30-223) 11/17/18 15:07 Troponin I 0.01 ng/mL (0.01-0.05) 11/17/18 15:07 B-Natriuretic Peptide 73.4 pg/mL (5.0-100.0) 11/17/18 15:07 Total Protein 6.9 gm/dL (6.0-8.3) 11/19/18 08:18 Albumin 3.0 gm/dL (3.7-5.3) L 11/19/18 08:18 Globulin 3.9 gm/dL 11/19/18 08:18 Albumin/Globulin Ratio 0.8 (1.0-1.8) L 11/19/18 08:18 Triglycerides 152 mg/dL (<150) H 11/17/18 15:07 Cholesterol 106 mg/dL (<200) 11/17/18 15:07 LDL Cholesterol Direct 68 mg/dL (75-193) L 11/17/18 15:07 HDL Cholesterol 21 mg/dL (23-92) L 11/17/18 15:07 Amylase 11 U/L (29-103) L 11/18/18 09:06 Lipase 12 U/L (11-82) 11/18/18 09:06 Urine Source [place] 11/19/18 04:00 Urine Color YELLOW 11/19/18 04:00 Urine Clarity CLEAR (CLEAR) 11/19/18 04:00 Urine pH 8.0 (4.6 - 8.0) 11/19/18 04:00 Ur Specific [place] 1.010 (1.005-1.030) 11/19/18 04:00 Urine Protein NEGATIVE mg/dL (NEGATIVE) 11/19/18 04:00 Urine Glucose (UA) NEGATIVE mg/dL (NEGATIVE) 11/19/18 04:00 Urine Ketones NEGATIVE mg/dL (NEGATIVE) 11/19/18 04:00 Urine Blood TRACE (NEGATIVE) 11/19/18 04:00 Urine Nitrate NEGATIVE (NEGATIVE) 11/19/18 04:00 Urine Bilirubin NEGATIVE (NEGATIVE) 11/19/18 04:00 Urine Urobilinogen 1.0 E.U./dL (0.2 - 1.0) 11/19/18 04:00 Ur Leukocyte Esterase NEGATIVE (NEGATIVE) 11/19/18 04:00 Urine RBC 0-2 /hpf (0-5) 11/19/18 04:00 Urine WBC 0-2 /hpf (0-5) 11/19/18 04:00 Ur Epithelial Cells RARE /lpf (FEW) 11/19/18 04:00 Other Crystals MODERATE /hpf 11/19/18 04:00 Urine Bacteria NONE SEEN /hpf (NONE SEEN) 11/19/18 04:00 Other Casts /LPF (NONE SEEN) 11/19/18 04:00 - Physical Exam Vitals and I&O: Vital Signs Temp 96.8 F 11/19/18 11:47 Pulse 75 11/19/18 11:47 Resp 18 11/19/18 11:47 BP 100/71 11/19/18 11:47 Pulse Ox 95 11/19/18 11:47 Intake & Output 11/18/18 11/19/18 11/19/18 18:59 06:59 18:59 Intake Total 700 1966.667 Output Total 350 Balance 350 1966.667 Weight (lbs) 43.545 kg 43.545 kg 43.545 kg Intake: Intake, IV Amount 966.667 D5-0.45NS 1,000 ml @ 50 966.667 mls/hr IV .Q20H [facility] Rx#: [id number] Tube Feeding 500 600 Other 200 400 Output: Urine 350 Other: # Bowel Movements 0 Weight Source Bedscale Bedscale Bedscale Active Medications: Current Medications Acetaminophen/Hydrocodone Bitart ([place] 10 Mg/325 Mg) 1 tab GT Q6H PRN PRN Reason: Pain (Moderate) Stop: 01/17/19 16:37 Last Admin: 11/19/18 04:16 Dose: 1 tab Albuterol Sulfate (Albuterol 2.5mg/3ml Neb Ud) 2.5 mg HHN Q2H PRN PRN Reason: Shortness of Breath Stop: 01/17/19 16:37 Albuterol/Ipratropium (Duoneb Neb) 3 ml HHN Q4HRT [facility] Stop: 01/17/19 18:59 Last Admin: 11/19/18 10:38 Dose: 3 ml Ascorbic Acid (Vitamin C) 500 mg GT Q12HR [facility] Stop: 01/17/19 20:59 Last Admin: 11/19/18 09:09 Dose: 500 mg Budesonide (Pulmicort) 0.5 mg HHN BIDRT [facility] Stop: 01/18/19 06:59 Last Admin: 11/19/18 06:43 Dose: 0.5 mg Carvedilol (Coreg) 6.25 mg GT Q12H [facility] Stop: 01/17/19 16:44 Last Admin: 11/19/18 04:16 Dose: 6.25 mg [place] Oil/[place] Balsam/Trypsin (Venelex) 1 appl TP MWF@DAILY [facility] Stop: 01/19/19 08:59 Chlorhexidine Gluconate (Peridex) 15 ml MM BID [facility] Stop: 01/17/19 16:59 Last Admin: 11/19/18 09:24 Dose: Not Given Diphenhydramine HCl (Benadryl) 25 mg GT Q8H PRN PRN Reason: Itching Stop: 01/17/19 16:37 Last Admin: 11/18/18 20:54 Dose: 25 mg Docusate Sodium (Colace) 200 mg GT Q12H PRN PRN Reason: Stool softener Dextrose/Sodium Chloride (D5-0.45ns) 1,000 mls @ 50 mls/hr IV .Q20H [facility] Stop: 01/17/19 08:51 Last Admin: 11/19/18 04:22 Dose: 50 mls/hr Lorazepam (Ativan) 1 mg IVP Q4HR PRN; Protocol PRN Reason: Agitation Stop: 01/17/19 03:19 Last Admin: 11/19/18 00:39 Dose: 1 mg Lorazepam (Ativan) 1 mg GT Q6H PRN; Protocol PRN Reason: Anxiety Stop: 01/17/19 16:37 Last Admin: 11/19/18 06:21 Dose: 1 mg Magnesium Hydroxide (Milk Of Magnesia) 30 ml GT DAILY [facility] Stop: 01/18/19 08:59 Last Admin: 11/19/18 09:10 Dose: 30 ml Magnesium Oxide (Mag-Oxide) 400 mg GT BID [facility] Stop: 01/17/19 16:59 Last Admin: 11/19/18 09:10 Dose: 400 mg Metoclopramide HCl (Reglan) 10 mg IVP Q8HR PRN PRN Reason: Abdominal Pain Stop: 01/17/19 08:47 Last Admin: 11/18/18 16:51 Dose: 10 mg Multivitamins/Minerals (Theragran M) 15 ml GT DAILY [facility] Stop: 01/18/19 08:59 Last Admin: 11/19/18 09:09 Dose: 15 ml Nitrofurantoin Macrocrystals (Macrodantin) 100 mg GT Q6HRT [facility] Stop: 01/17/19 18:59 Last Admin: 11/19/18 12:37 Dose: 100 mg Nystatin/Triamcinolone Acetonide (Mycolog Ii Cream) appl TP Q12H [facility] Stop: 01/17/19 16:44 Pantoprazole Sodium (Protonix) 40 mg IVP DAILY [facility] Stop: 01/17/19 08:59 Last Admin: 11/19/18 09:10 Dose: 40 mg Zinc Sulfate (Zinc Sulfate) 220 mg GT DAILY [facility] Stop: 01/18/19 08:59 Last Admin: 11/19/18 09:10 Dose: 220 mg - Procedures Procedures: Procedures Procedure Code Date RESPIRATORY VENTILATION, LESS THAN 24 CONSECUTIVE HOURS [id number] 04/07/18 Assessment/Plan - Assessment Assessment: 58 YO FEMALE WITH UPPER ABD PAIN WHICH COULD BE DUE TO PNEUMONIA CT SHOWED ILEUS AND GT ALK PHOS ELEVATED WITH NORMAL GGT SUGGEST NO HEPATIC SOURCE 1.OFFERED PT EGD TO EVALUATE THE UPPER ABD PAIN AND SHE REFUSED; SHE UNDERSTANDS THAT FAILURE TO HAVE PROPER WORK UP COULD LEAD TO MISSED DIAGNOSIS, CANCER, CURE, TREATMENT OPPORTUNITY LEADING TO EARLY AND UNFORSEABLE DISABILITY 2.CONT PROTONIX 3.TREAT PNA
--- NOTE | 2018-11-19 17:23 | Internal Medicine Prog Note ---
Internal Medicine Subjective - Subjective Service Date: 11/19/18 (on tbar) Patient seen and examined:: with staff Patient is:: awake Per staff patient has:: tolerating meds Internal Medicine Objective - Results Result Diagrams: 11/19/18 08:18 11/19/18 08:18 Recent Labs: Laboratory Last Values WBC 4.0 Th/cmm (4.8-10.8) L D 11/19/18 08:18 RBC 3.02 Mil/cmm (3.80-5.10) L 11/19/18 08:18 Hgb 9.2 gm/dL (12-16) L 11/19/18 08:18 Hct 27.8 % (41.0-60) L 11/19/18 08:18 MCV 91.9 fl (81-100) 11/19/18 08:18 MCH 30.4 pg (27.0-31.0) 11/19/18 08:18 MCHC Differential 33.1 pg (28.0-36.0) 11/19/18 08:18 RDW 14.1 % (11.5-20.0) 11/19/18 08:18 Plt Count 335 Th/cmm (150-400) 11/19/18 08:18 MPV 7.0 fl 11/19/18 08:18 Add Manual Diff YES 11/19/18 08:18 Neutrophils % 79.4 % (40.0-80.0) 11/18/18 09:06 Band Neutrophils % 2 % (0-10) 11/19/18 08:18 Lymphocytes % 11.6 % (20.0-50.0) L 11/18/18 09:06 Monocytes % 6.0 % (2.0-10.0) 11/18/18 09:06 Eosinophils % 2.5 % (0.0-5.0) 11/18/18 09:06 Basophils % 0.5 % (0.0-2.0) 11/18/18 09:06 Neutrophils (Manual) 55 % (40-80) 11/19/18 08:18 Lymphocytes 28 % (20-50) 11/19/18 08:18 Monocytes 9 % (2-10) 11/19/18 08:18 Eosinophils 6 % (0-5) H 11/19/18 08:18 Basophils 0 % (0-3) 11/19/18 08:18 PT 11.4 SECONDS (9.5-11.5) 11/17/18 15:07 INR 1.11 (0.5-1.4) 11/17/18 15:07 Sodium 139 mEq/L (136-145) 11/19/18 08:18 Potassium 4.7 mEq/L (3.5-5.1) 11/19/18 08:18 Chloride 104 mEq/L (98-107) 11/19/18 08:18 Carbon Dioxide 28.4 mEq/L (21.0-31.0) 11/19/18 08:18 Anion Gap 11.3 (7.0-16.0) 11/19/18 08:18 BUN 19 mg/dL (7-25) 11/19/18 08:18 Creatinine 0.5 mg/dL (0.6-1.2) L 11/19/18 08:18 Est GFR ( Amer) > 60.0 ml/min (>90) 11/19/18 08:18 Est GFR (Non-Af Amer) > 60.0 ml/min 11/19/18 08:18 BUN/Creatinine Ratio 38.0 11/19/18 08:18 Glucose 130 mg/dL (70-105) H 11/19/18 08:18 Calcium 9.5 mg/dL (8.6-10.3) 11/19/18 08:18 Total Bilirubin 0.3 mg/dL (0.3-1.0) 11/19/18 08:18 GGTP 24 IU/L (0-60) 11/18/18 09:06 AST 12 U/L (13-39) L 11/19/18 08:18 ALT 20 U/L (7-52) 11/19/18 08:18 Alkaline Phosphatase 130 U/L (34-104) H 11/19/18 08:18 Creatine Kinase 33 U/L (30-223) 11/17/18 15:07 Troponin I 0.01 ng/mL (0.01-0.05) 11/17/18 15:07 B-Natriuretic Peptide 73.4 pg/mL (5.0-100.0) 11/17/18 15:07 Total Protein 6.9 gm/dL (6.0-8.3) 11/19/18 08:18 Albumin 3.0 gm/dL (3.7-5.3) L 11/19/18 08:18 Globulin 3.9 gm/dL 11/19/18 08:18 Albumin/Globulin Ratio 0.8 (1.0-1.8) L 11/19/18 08:18 Triglycerides 152 mg/dL (<150) H 11/17/18 15:07 Cholesterol 106 mg/dL (<200) 11/17/18 15:07 LDL Cholesterol Direct 68 mg/dL (75-193) L 11/17/18 15:07 HDL Cholesterol 21 mg/dL (23-92) L 11/17/18 15:07 Amylase 11 U/L (29-103) L 11/18/18 09:06 Lipase 12 U/L (11-82) 11/18/18 09:06 Urine Source [place] 11/19/18 04:00 Urine Color YELLOW 11/19/18 04:00 Urine Clarity CLEAR (CLEAR) 11/19/18 04:00 Urine pH 8.0 (4.6 - 8.0) 11/19/18 04:00 Ur Specific [place] 1.010 (1.005-1.030) 11/19/18 04:00 Urine Protein NEGATIVE mg/dL (NEGATIVE) 11/19/18 04:00 Urine Glucose (UA) NEGATIVE mg/dL (NEGATIVE) 11/19/18 04:00 Urine Ketones NEGATIVE mg/dL (NEGATIVE) 11/19/18 04:00 Urine Blood TRACE (NEGATIVE) 11/19/18 04:00 Urine Nitrate NEGATIVE (NEGATIVE) 11/19/18 04:00 Urine Bilirubin NEGATIVE (NEGATIVE) 11/19/18 04:00 Urine Urobilinogen 1.0 E.U./dL (0.2 - 1.0) 11/19/18 04:00 Ur Leukocyte Esterase NEGATIVE (NEGATIVE) 11/19/18 04:00 Urine RBC 0-2 /hpf (0-5) 11/19/18 04:00 Urine WBC 0-2 /hpf (0-5) 11/19/18 04:00 Ur Epithelial Cells RARE /lpf (FEW) 11/19/18 04:00 Other Crystals MODERATE /hpf 11/19/18 04:00 Urine Bacteria NONE SEEN /hpf (NONE SEEN) 11/19/18 04:00 Other Casts /LPF (NONE SEEN) 11/19/18 04:00 - Physical Exam Vitals and I&O: Vital Signs Temp 97.4 F 11/19/18 15:44 Pulse 71 11/19/18 15:44 Resp 18 11/19/18 15:44 BP 107/68 11/19/18 15:44 Pulse Ox 96 11/19/18 15:44 Intake & Output 11/18/18 11/19/18 11/19/18 18:59 06:59 18:59 Intake Total 700 1966.667 Output Total 350 Balance 350 1966.667 Weight (lbs) 96 lb 96 lb 96 lb Intake: Intake, IV Amount 966.667 D5-0.45NS 1,000 ml @ 50 966.667 mls/hr IV .Q20H [facility] Rx#: [id number] Tube Feeding 500 600 Other 200 400 Output: Urine 350 Other: # Bowel Movements 0 Weight Source Bedscale Bedscale Bedscale Active Medications: Current Medications Acetaminophen/Hydrocodone Bitart ([place] 10 Mg/325 Mg) 1 tab GT Q6H PRN PRN Reason: Pain (Moderate) Stop: 01/17/19 16:37 Last Admin: 11/19/18 04:16 Dose: 1 tab Albuterol Sulfate (Albuterol 2.5mg/3ml Neb Ud) 2.5 mg HHN Q2H PRN PRN Reason: Shortness of Breath Stop: 01/17/19 16:37 Albuterol/Ipratropium (Duoneb Neb) 3 ml HHN Q4HRT [facility] Stop: 01/17/19 18:59 Last Admin: 11/19/18 14:03 Dose: 3 ml Ascorbic Acid (Vitamin C) 500 mg GT Q12HR [facility] Stop: 01/17/19 20:59 Last Admin: 11/19/18 09:09 Dose: 500 mg Budesonide (Pulmicort) 0.5 mg HHN BIDRT [facility] Stop: 01/18/19 06:59 Last Admin: 11/19/18 06:43 Dose: 0.5 mg Carvedilol (Coreg) 6.25 mg GT Q12H [facility] Stop: 01/17/19 16:44 Last Admin: 11/19/18 04:16 Dose: 6.25 mg [place] Oil/[place] Balsam/Trypsin (Venelex) 1 appl TP DAILY [facility] Stop: 01/19/19 08:59 Chlorhexidine Gluconate (Peridex) 15 ml MM BID [facility] Stop: 01/17/19 16:59 Last Admin: 11/19/18 09:24 Dose: Not Given Diphenhydramine HCl (Benadryl) 25 mg GT Q8H PRN PRN Reason: Itching Stop: 01/17/19 16:37 Last Admin: 11/18/18 20:54 Dose: 25 mg Docusate Sodium (Colace) 200 mg GT Q12H PRN PRN Reason: Stool softener Dextrose/Sodium Chloride (D5-0.45ns) 1,000 mls @ 50 mls/hr IV .Q20H [facility] Stop: 01/17/19 08:51 Last Admin: 11/19/18 04:22 Dose: 50 mls/hr Lorazepam (Ativan) 1 mg IVP Q4HR PRN; Protocol PRN Reason: Agitation Stop: 01/17/19 03:19 Last Admin: 11/19/18 00:39 Dose: 1 mg Lorazepam (Ativan) 1 mg GT Q6H PRN; Protocol PRN Reason: Anxiety Stop: 01/17/19 16:37 Last Admin: 11/19/18 06:21 Dose: 1 mg Magnesium Hydroxide (Milk Of Magnesia) 30 ml GT DAILY [facility] Stop: 01/18/19 08:59 Last Admin: 11/19/18 09:10 Dose: 30 ml Magnesium Oxide (Mag-Oxide) 400 mg GT BID [facility] Stop: 01/17/19 16:59 Last Admin: 11/19/18 09:10 Dose: 400 mg Metoclopramide HCl (Reglan) 10 mg IVP Q8HR PRN PRN Reason: Abdominal Pain Stop: 01/17/19 08:47 Last Admin: 11/18/18 16:51 Dose: 10 mg Multivitamins/Minerals (Theragran M) 15 ml GT DAILY [facility] Stop: 01/18/19 08:59 Last Admin: 11/19/18 09:09 Dose: 15 ml Nitrofurantoin Macrocrystals (Macrodantin) 100 mg GT Q6HRT [facility] Stop: 01/17/19 18:59 Last Admin: 11/19/18 12:37 Dose: 100 mg Nystatin/Triamcinolone Acetonide (Mycolog Ii Cream) appl TP Q12H [facility] Stop: 01/17/19 16:44 Pantoprazole Sodium (Protonix) 40 mg IVP DAILY [facility] Stop: 01/17/19 08:59 Last Admin: 11/19/18 09:10 Dose: 40 mg Zinc Sulfate (Zinc Sulfate) 220 mg GT DAILY [facility] Stop: 01/18/19 08:59 Last Admin: 11/19/18 09:10 Dose: 220 mg General: weak, alert HEENT: NC/AT, PERRLA Neck: + trach Lungs: ronchi Cardiovascular: RRR, Normal S1, Normal S2 Abdomen: soft, non-tender, non-distended Extremities: excoriation - Procedures Procedures: Procedures Procedure Code Date RESPIRATORY VENTILATION, LESS THAN 24 CONSECUTIVE HOURS [id number] 04/07/18 Internal Medicine Assmt/Plan - Assessment Assessment: acute on chronic resp failure copd acute uti hx cva hx fall - Plan Plan: may need ltac eval will follow pulm/ID am labs Nutritional Asmnt/Malnutr-PDOC - Dietary Evaluation Malnutrition Findings (Please click <Entered> for more info): Nutritional Asmnt/Malnutrition Start: 11/18/18 14: 42 Text: Status: Complete Freq: Protocol: Document 11/18/18 14:43 [email or web address] (Rec: 11/18/18 15:03 [email or web address]) Nutritional Asmnt/Malnutrition Patient General Information Nutritional Screening High Risk Consult Diagnosis syncope/fall Pertinent Medical Hx/Surgical Hx HTN, asthma/COPD, dyslipidemia , arthritis, dementia, tracheostomy Subjective Information 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 Pt was seen in bed at time of visit, trach to vent. Jevity 1.2 was running at 54ml/hr. Pt appeared fat and muscle wasting. Current Diet Order/ Nutrition Support jevity 1.2 54ml/hr x 20hrs, providing 1296kcal and 60g protein Pertinent Medications d5-0.45ns, reglan, protonix Pertinent Labs 11/17 cr 0.5, alb 3.3, triglycerides 152, LDL 68, HDL 21 Nutritional Hx/Data Height 5 ft 4 in Height (Calculated Centimeters) 162.6 Current Weight (lbs) 96 lb Weight (Calculated Kilograms) 43.5 Weight (Calculated Grams) 58367.9 [place] Body Weight 120 Body Mass Index (BMI) 16.5 Weight Status Underweight GI Symptoms GI Symptoms None Last BM not indicated Difficult in: None Food Allergies No Usual diet at home per pt chart, Jevity 1.5 at 54 ml/hr for 20hr to provide 1620kcal/day at care facility Skin Integrity/Comment: rash to left hand, reddened left foot, discoloration to lower legs, ulceration to coccyx Estimated Nutritional Goals BEE in Kcals: Using Current wt Calories/Kcals/Kg 30-35 Kcals Calculated 3454-8944 Protein: Using Current wt Protein g/k.2-1.4 Protein Calculated 52-61 Fluid: ml 8519-0631 (1ml/kcal) Nutritional Problem 2. Problem Problem increased energy needs Etiology muscle wasting and wound healing Signs/Symptoms: BMI 16.5, stage 4 coccyx wound 1. Problem Problem inadequate energy/protein intake Etiology increased metabolic demand for wound healing Signs/Symptoms: stage 4 coccyx wound Malnutrition Alert Body Fat Depletion (Severe) Mod to Severe Depletion Muscle Mass (Severe) Mod to Severe Depletion Is there a minimum of two criteria Yes selected? Query Text:Check all the applicable criteria. A minimum of two criteria are recommended for diagnosis of either severe or non-severe malnutrition. Malnutrition Related to Morbid Obesity Malnutrition related to morbid obesity No Intervention/Recommendation Comments 1. Recommend Jevity 1.2 at 54ml/hr continuous, providing 1555kcal, 72g protein, 1045ml free water, meeting 100% of nutritional needs. Tried to reach RN about the TF recommendaction but not available at this time. Will follow up again. 2. Monitor TF rate, tolerance, wt, skin integrity and labs 3. F/U as high risk in 2-3 days Expected Outcomes/Goals Expected Outcomes/Goals 1. Pt to meet at least 90% of nutritional needs via nutrition support 2. Wt stability, skin to remain intact, labs to approach WNL. Reviewed by Tiffanie Guaman RD
--- NOTE | 2018-11-19 20:40 | Progress Notes ---
DATE: 11/19/2018 SUBJECTIVE: The patient lying in bed, tracheostomy vent. Awake, alert, will interact with gestures. Follows instruction. No seizures. OBJECTIVE: VITAL SIGNS: Temperature 97.2, blood pressure 110/80, pulse is 70. NECK: Supple. No neck bruits. CARDIOVASCULAR: Heart sounds S1, S2. LUNGS: Clear. NEUROLOGIC: The patient is awake. The patient follows instructions. Tracheostomy vent. He lifts both arms up. Very weak in the lower extremities with essentially lot of atrophy in the legs. ASSESSMENT: 1. Loss of consciousness, syncope. 2. Respiratory failure, [id number]. 3. Dysphagia. 4. Paraplegia. 5. Dementia. 6. Hypertension. 7. Asthma. PLAN: 1. The patient's CT scan of the head and carotid Doppler studies. CT scan done on 11/17/2018 shows a hypodense supratentorial consistent with small vessel disease roughly. 2. Carotid Doppler is pending. JOB# [id number]
[2018-11-20] MEDS: Nitrofurantoin, Macrocrystals 50 mg Cap GT SCH (01:03)
[2018-11-20] MEDS: D5-0.45NS 1,000 ML IV SCH ×2 (02:16→21:06)
[2018-11-20] MEDS: Albuterol/Ipratropium Neb 3 ML AERS HHN SCH ×6 (02:36→23:26)
[2018-11-20 06:25] LABS: % BASOPHILS 0.4 % (0.0-2.0); % EOSINOPHILS 3.3 % (0.0-5.0); % LYMPHOCYTES 17.9 % (20.0-50.0); % MONOCYTES 8.4 % (2.0-10.0); EOSINOPHILE ABSOLUTE 0.2 Th/cmm (0.1-0.4); HEMATOCRIT 30.4 % (41.0-60); HEMOGLOBIN 10.3 gm/dL (12-16); MEAN CELL VOLUME 92.2 fl (81-100); MEAN CORPUSCULAR HEMOGLOBIN 31.2 pg (27.0-31.0); MEAN CORPUSCULAR HGB CONC 33.9 pg (28.0-36.0); MEAN PLATELET VOLUME 7.4 fl; MONOCYTE ABSOLUTE 0.5 Th/cmm (0.3-1.0); PLATELET COUNT 352 Th/cmm (150-400); RED CELL DISTRIBUTION WIDTH 14.1 % (11.5-20.0)
[2018-11-20 06:40] LABS: WHITE BLOOD COUNT 5.7 Th/cmm (4.8-10.8)
[2018-11-20 06:51] LABS: ANION GAP 11.4 (7.0-16.0); BUN - UREA NITROGEN 18 mg/dL (7-25); CALCIUM SERUM 9.5 mg/dL (8.6-10.3); CARBON DIOXIDE 29.6 mEq/L (21.0-31.0); CHLORIDE 102 mEq/L (98-107); CREATININE - SERUM 0.4 mg/dL (0.6-1.2); GFR AFRICAN-AMERICAN > 60.0 ml/min (>90); GFR NON AFRICAN-AMERICAN > 60.0 ml/min; GLUCOSE 97 mg/dL (70-105); SODIUM SERUM 139 mEq/L (136-145)
[2018-11-20] MEDS: Budesonide 0.5 Mg/2 mL Ud HHN SCH ×2 (07:19→19:38)
[2018-11-20] MEDS: Venelex 60gm Tube TP SCH (08:59)
[2018-11-20] MEDS ORDERED: Venelex 60gm Tube TP SCH ×2 (09:00)
[2018-11-20] MEDS: Chlorhexidine Gluconate 0.12% 15mL Mouthwash MM SCH ×2 (09:12→17:00)
--- NOTE | 2018-11-20 11:58 | GI Progress Note ---
Subjective - Review of Systems Subjective: DENIES ABD PAIN Objective - Results Result Diagrams: 11/20/18 05:50 11/20/18 05:50 Recent Labs: Laboratory Last Values WBC 5.7 Th/cmm (4.8-10.8) D 11/20/18 05:50 RBC 3.30 Mil/cmm (3.80-5.10) L 11/20/18 05:50 Hgb 10.3 gm/dL (12-16) L 11/20/18 05:50 Hct 30.4 % (41.0-60) L 11/20/18 05:50 MCV 92.2 fl (81-100) 11/20/18 05:50 MCH 31.2 pg (27.0-31.0) H 11/20/18 05:50 MCHC Differential 33.9 pg (28.0-36.0) 11/20/18 05:50 RDW 14.1 % (11.5-20.0) 11/20/18 05:50 Plt Count 352 Th/cmm (150-400) 11/20/18 05:50 MPV 7.4 fl 11/20/18 05:50 Add Manual Diff YES 11/19/18 08:18 Neutrophils % 70.0 % (40.0-80.0) 11/20/18 05:50 Band Neutrophils % 2 % (0-10) 11/19/18 08:18 Lymphocytes % 17.9 % (20.0-50.0) L 11/20/18 05:50 Monocytes % 8.4 % (2.0-10.0) 11/20/18 05:50 Eosinophils % 3.3 % (0.0-5.0) 11/20/18 05:50 Basophils % 0.4 % (0.0-2.0) 11/20/18 05:50 Neutrophils (Manual) 55 % (40-80) 11/19/18 08:18 Lymphocytes 28 % (20-50) 11/19/18 08:18 Monocytes 9 % (2-10) 11/19/18 08:18 Eosinophils 6 % (0-5) H 11/19/18 08:18 Basophils 0 % (0-3) 11/19/18 08:18 PT 11.4 SECONDS (9.5-11.5) 11/17/18 15:07 INR 1.11 (0.5-1.4) 11/17/18 15:07 Sodium 139 mEq/L (136-145) 11/20/18 05:50 Potassium 4.0 mEq/L (3.5-5.1) 11/20/18 05:50 Chloride 102 mEq/L (98-107) 11/20/18 05:50 Carbon Dioxide 29.6 mEq/L (21.0-31.0) 11/20/18 05:50 Anion Gap 11.4 (7.0-16.0) 11/20/18 05:50 BUN 18 mg/dL (7-25) 11/20/18 05:50 Creatinine 0.4 mg/dL (0.6-1.2) L 11/20/18 05:50 Est GFR ( Amer) > 60.0 ml/min (>90) 11/20/18 05:50 Est GFR (Non-Af Amer) > 60.0 ml/min 11/20/18 05:50 BUN/Creatinine Ratio 45.0 11/20/18 05:50 Glucose 97 mg/dL (70-105) 11/20/18 05:50 Calcium 9.5 mg/dL (8.6-10.3) 11/20/18 05:50 Total Bilirubin 0.3 mg/dL (0.3-1.0) 11/19/18 08:18 GGTP 24 IU/L (0-60) 11/18/18 09:06 AST 12 U/L (13-39) L 11/19/18 08:18 ALT 20 U/L (7-52) 11/19/18 08:18 Alkaline Phosphatase 130 U/L (34-104) H 11/19/18 08:18 Creatine Kinase 33 U/L (30-223) 11/17/18 15:07 Troponin I 0.01 ng/mL (0.01-0.05) 11/17/18 15:07 B-Natriuretic Peptide 73.4 pg/mL (5.0-100.0) 11/17/18 15:07 Total Protein 6.9 gm/dL (6.0-8.3) 11/19/18 08:18 Albumin 3.0 gm/dL (3.7-5.3) L 11/19/18 08:18 Globulin 3.9 gm/dL 11/19/18 08:18 Albumin/Globulin Ratio 0.8 (1.0-1.8) L 11/19/18 08:18 Triglycerides 152 mg/dL (<150) H 11/17/18 15:07 Cholesterol 106 mg/dL (<200) 11/17/18 15:07 LDL Cholesterol Direct 68 mg/dL (75-193) L 11/17/18 15:07 HDL Cholesterol 21 mg/dL (23-92) L 11/17/18 15:07 Amylase 11 U/L (29-103) L 11/18/18 09:06 Lipase 12 U/L (11-82) 11/18/18 09:06 Urine Source [place] 11/19/18 04:00 Urine Color YELLOW 11/19/18 04:00 Urine Clarity CLEAR (CLEAR) 11/19/18 04:00 Urine pH 8.0 (4.6 - 8.0) 11/19/18 04:00 Ur Specific [place] 1.010 (1.005-1.030) 11/19/18 04:00 Urine Protein NEGATIVE mg/dL (NEGATIVE) 11/19/18 04:00 Urine Glucose (UA) NEGATIVE mg/dL (NEGATIVE) 11/19/18 04:00 Urine Ketones NEGATIVE mg/dL (NEGATIVE) 11/19/18 04:00 Urine Blood TRACE (NEGATIVE) 11/19/18 04:00 Urine Nitrate NEGATIVE (NEGATIVE) 11/19/18 04:00 Urine Bilirubin NEGATIVE (NEGATIVE) 11/19/18 04:00 Urine Urobilinogen 1.0 E.U./dL (0.2 - 1.0) 11/19/18 04:00 Ur Leukocyte Esterase NEGATIVE (NEGATIVE) 11/19/18 04:00 Urine RBC 0-2 /hpf (0-5) 11/19/18 04:00 Urine WBC 0-2 /hpf (0-5) 11/19/18 04:00 Ur Epithelial Cells RARE /lpf (FEW) 11/19/18 04:00 Other Crystals MODERATE /hpf 11/19/18 04:00 Urine Bacteria NONE SEEN /hpf (NONE SEEN) 11/19/18 04:00 Other Casts /LPF (NONE SEEN) 11/19/18 04:00 - Physical Exam Vitals and I&O: Vital Signs Temp 98.5 F 11/20/18 08:00 Pulse 82 11/20/18 10:47 Resp 20 11/20/18 10:47 BP 120/83 11/20/18 08:00 Pulse Ox 97 11/20/18 10:47 Intake & Output 11/19/18 11/20/18 11/20/18 18:59 06:59 18:59 Intake Total 1248 1000 Output Total 600 Balance 648 1000 Weight (lbs) 43.545 kg 43.545 kg Intake: Intake, IV Amount 1000 D5-0.45NS 1,000 ml @ 50 1000 mls/hr IV .Q20H [facility] Rx#: [id number] Tube Feeding 648 Other 600 Output: Urine 600 Other: # Bowel Movements 0 Weight Source Bedscale Bedscale Active Medications: Current Medications Acetaminophen/Hydrocodone Bitart ([place] 10 Mg/325 Mg) 1 tab GT Q6H PRN PRN Reason: Pain (Moderate) Stop: 01/17/19 16:37 Last Admin: 11/19/18 04:16 Dose: 1 tab Albuterol Sulfate (Albuterol 2.5mg/3ml Neb Ud) 2.5 mg HHN Q2H PRN PRN Reason: Shortness of Breath Stop: 01/17/19 16:37 Albuterol/Ipratropium (Duoneb Neb) 3 ml HHN Q4HRT [facility] Stop: 01/17/19 18:59 Last Admin: 11/20/18 10:47 Dose: 3 ml Ascorbic Acid (Vitamin C) 500 mg GT Q12HR [facility] Stop: 01/17/19 20:59 Last Admin: 11/20/18 09:04 Dose: Not Given Budesonide (Pulmicort) 0.5 mg HHN BIDRT [facility] Stop: 01/18/19 06:59 Last Admin: 11/20/18 07:19 Dose: 0.5 mg Carvedilol (Coreg) 6.25 mg GT Q12H [facility] Stop: 01/17/19 16:44 Last Admin: 11/20/18 04:24 Dose: Not Given [place] Oil/[place] Balsam/Trypsin (Venelex) 1 appl TP DAILY [facility] Stop: 01/19/19 08:59 Last Admin: 11/20/18 08:59 Dose: 1 appl Chlorhexidine Gluconate (Peridex) 15 ml MM BID [facility] Stop: 01/17/19 16:59 Last Admin: 11/20/18 09:12 Dose: 15 ml Diphenhydramine HCl (Benadryl) 25 mg GT Q8H PRN PRN Reason: Itching Stop: 01/17/19 16:37 Last Admin: 11/18/18 20:54 Dose: 25 mg Docusate Sodium (Colace) 200 mg GT Q12H PRN PRN Reason: Stool softener Dextrose/Sodium Chloride (D5-0.45ns) 1,000 mls @ 50 mls/hr IV .Q20H [facility] Stop: 01/17/19 08:51 Last Admin: 11/20/18 02:16 Dose: 50 mls/hr Lorazepam (Ativan) 1 mg IVP Q4HR PRN; Protocol PRN Reason: Agitation Stop: 01/17/19 03:19 Last Admin: 11/20/18 03:42 Dose: 1 mg Lorazepam (Ativan) 1 mg GT Q6H PRN; Protocol PRN Reason: Anxiety Stop: 01/17/19 16:37 Last Admin: 11/19/18 20:25 Dose: 1 mg Magnesium Hydroxide (Milk Of Magnesia) 30 ml GT DAILY [facility] Stop: 01/18/19 08:59 Last Admin: 11/19/18 09:10 Dose: 30 ml Magnesium Oxide (Mag-Oxide) 400 mg GT BID [facility] Stop: 01/17/19 16:59 Last Admin: 11/20/18 09:04 Dose: Not Given Metoclopramide HCl (Reglan) 10 mg IVP Q8HR PRN PRN Reason: Abdominal Pain Stop: 01/17/19 08:47 Last Admin: 11/18/18 16:51 Dose: 10 mg Multivitamins/Minerals (Theragran M) 15 ml GT DAILY [facility] Stop: 01/18/19 08:59 Last Admin: 11/19/18 09:09 Dose: 15 ml Nystatin/Triamcinolone Acetonide (Mycolog Ii Cream) appl TP Q12H [facility] Stop: 01/17/19 16:44 Pantoprazole Sodium (Protonix) 40 mg IVP DAILY [facility] Stop: 01/17/19 08:59 Last Admin: 11/20/18 08:33 Dose: 40 mg Zinc Sulfate (Zinc Sulfate) 220 mg GT DAILY [facility] Stop: 01/18/19 08:59 Last Admin: 11/19/18 09:10 Dose: 220 mg - Procedures Procedures: Procedures Procedure Code Date RESPIRATORY VENTILATION, LESS THAN 24 CONSECUTIVE HOURS [id number] 04/07/18 Assessment/Plan - Assessment Assessment: 58 YO FEMALE WITH UPPER ABD PAIN WHICH COULD BE DUE TO PNEUMONIA CT SHOWED ILEUS AND GT ALK PHOS ELEVATED WITH NORMAL GGT SUGGEST NON HEPATIC SOURCE 1.OFFERED PT EGD TO EVALUATE THE UPPER ABD PAIN AND SHE REFUSED; SHE UNDERSTANDS THAT FAILURE TO HAVE PROPER WORK UP COULD LEAD TO MISSED DIAGNOSIS, CANCER, CURE, TREATMENT OPPORTUNITY LEADING TO EARLY AND UNFORSEABLE DISABILITY 2.CONT PROTONIX 3.VALERIA PENDING
[2018-11-20] MEDS: Multivitamin w/ Minerals 15 mL UDC GT SCH (15:28)
[2018-11-20] MEDS: Magnesium Hydroxide (MOM) 30 mL UDC GT SCH (15:30)
--- NOTE | 2018-11-20 16:03 | Internal Medicine Prog Note ---
Internal Medicine Subjective - Subjective Patient seen and examined:: chart reviewed Patient is:: awake, other (alert, lying in bed, on vent. via trach., will intertact with gestures) Per staff patient has:: tolerating meds Internal Medicine Objective - Results Result Diagrams: 11/20/18 05:50 11/20/18 05:50 Recent Labs: Laboratory Last Values WBC 5.7 Th/cmm (4.8-10.8) D 11/20/18 05:50 RBC 3.30 Mil/cmm (3.80-5.10) L 11/20/18 05:50 Hgb 10.3 gm/dL (12-16) L 11/20/18 05:50 Hct 30.4 % (41.0-60) L 11/20/18 05:50 MCV 92.2 fl (81-100) 11/20/18 05:50 MCH 31.2 pg (27.0-31.0) H 11/20/18 05:50 MCHC Differential 33.9 pg (28.0-36.0) 11/20/18 05:50 RDW 14.1 % (11.5-20.0) 11/20/18 05:50 Plt Count 352 Th/cmm (150-400) 11/20/18 05:50 MPV 7.4 fl 11/20/18 05:50 Add Manual Diff YES 11/19/18 08:18 Neutrophils % 70.0 % (40.0-80.0) 11/20/18 05:50 Band Neutrophils % 2 % (0-10) 11/19/18 08:18 Lymphocytes % 17.9 % (20.0-50.0) L 11/20/18 05:50 Monocytes % 8.4 % (2.0-10.0) 11/20/18 05:50 Eosinophils % 3.3 % (0.0-5.0) 11/20/18 05:50 Basophils % 0.4 % (0.0-2.0) 11/20/18 05:50 Neutrophils (Manual) 55 % (40-80) 11/19/18 08:18 Lymphocytes 28 % (20-50) 11/19/18 08:18 Monocytes 9 % (2-10) 11/19/18 08:18 Eosinophils 6 % (0-5) H 11/19/18 08:18 Basophils 0 % (0-3) 11/19/18 08:18 PT 11.4 SECONDS (9.5-11.5) 11/17/18 15:07 INR 1.11 (0.5-1.4) 11/17/18 15:07 Sodium 139 mEq/L (136-145) 11/20/18 05:50 Potassium 4.0 mEq/L (3.5-5.1) 11/20/18 05:50 Chloride 102 mEq/L (98-107) 11/20/18 05:50 Carbon Dioxide 29.6 mEq/L (21.0-31.0) 11/20/18 05:50 Anion Gap 11.4 (7.0-16.0) 11/20/18 05:50 BUN 18 mg/dL (7-25) 11/20/18 05:50 Creatinine 0.4 mg/dL (0.6-1.2) L 11/20/18 05:50 Est GFR ( Amer) > 60.0 ml/min (>90) 11/20/18 05:50 Est GFR (Non-Af Amer) > 60.0 ml/min 11/20/18 05:50 BUN/Creatinine Ratio 45.0 11/20/18 05:50 Glucose 97 mg/dL (70-105) 11/20/18 05:50 Calcium 9.5 mg/dL (8.6-10.3) 11/20/18 05:50 Total Bilirubin 0.3 mg/dL (0.3-1.0) 11/19/18 08:18 GGTP 24 IU/L (0-60) 11/18/18 09:06 AST 12 U/L (13-39) L 11/19/18 08:18 ALT 20 U/L (7-52) 11/19/18 08:18 Alkaline Phosphatase 130 U/L (34-104) H 11/19/18 08:18 Creatine Kinase 33 U/L (30-223) 11/17/18 15:07 Troponin I 0.01 ng/mL (0.01-0.05) 11/17/18 15:07 B-Natriuretic Peptide 73.4 pg/mL (5.0-100.0) 11/17/18 15:07 Total Protein 6.9 gm/dL (6.0-8.3) 11/19/18 08:18 Albumin 3.0 gm/dL (3.7-5.3) L 11/19/18 08:18 Globulin 3.9 gm/dL 11/19/18 08:18 Albumin/Globulin Ratio 0.8 (1.0-1.8) L 11/19/18 08:18 Triglycerides 152 mg/dL (<150) H 11/17/18 15:07 Cholesterol 106 mg/dL (<200) 11/17/18 15:07 LDL Cholesterol Direct 68 mg/dL (75-193) L 11/17/18 15:07 HDL Cholesterol 21 mg/dL (23-92) L 11/17/18 15:07 Amylase 11 U/L (29-103) L 11/18/18 09:06 Lipase 12 U/L (11-82) 11/18/18 09:06 Urine Source [place] 11/19/18 04:00 Urine Color YELLOW 11/19/18 04:00 Urine Clarity CLEAR (CLEAR) 11/19/18 04:00 Urine pH 8.0 (4.6 - 8.0) 11/19/18 04:00 Ur Specific [place] 1.010 (1.005-1.030) 11/19/18 04:00 Urine Protein NEGATIVE mg/dL (NEGATIVE) 11/19/18 04:00 Urine Glucose (UA) NEGATIVE mg/dL (NEGATIVE) 11/19/18 04:00 Urine Ketones NEGATIVE mg/dL (NEGATIVE) 11/19/18 04:00 Urine Blood TRACE (NEGATIVE) 11/19/18 04:00 Urine Nitrate NEGATIVE (NEGATIVE) 11/19/18 04:00 Urine Bilirubin NEGATIVE (NEGATIVE) 11/19/18 04:00 Urine Urobilinogen 1.0 E.U./dL (0.2 - 1.0) 11/19/18 04:00 Ur Leukocyte Esterase NEGATIVE (NEGATIVE) 11/19/18 04:00 Urine RBC 0-2 /hpf (0-5) 11/19/18 04:00 Urine WBC 0-2 /hpf (0-5) 11/19/18 04:00 Ur Epithelial Cells RARE /lpf (FEW) 11/19/18 04:00 Other Crystals MODERATE /hpf 11/19/18 04:00 Urine Bacteria NONE SEEN /hpf (NONE SEEN) 11/19/18 04:00 Other Casts /LPF (NONE SEEN) 11/19/18 04:00 - Physical Exam Vitals and I&O: Vital Signs Temp 97.9 F 11/20/18 12:00 Pulse 85 11/20/18 15:30 Resp 20 11/20/18 15:30 BP 122/75 11/20/18 12:00 Pulse Ox 97 11/20/18 15:30 Intake & Output 11/19/18 11/20/18 11/20/18 18:59 06:59 18:59 Intake Total 1248 1000 Output Total 600 Balance 648 1000 Weight (lbs) 43.545 kg 43.545 kg Intake: Intake, IV Amount 1000 D5-0.45NS 1,000 ml @ 50 1000 mls/hr IV .Q20H [facility] Rx#: [id number] Tube Feeding 648 Other 600 Output: Urine 600 Other: # Bowel Movements 0 Weight Source Bedscale Bedscale Active Medications: Current Medications Acetaminophen/Hydrocodone Bitart ([place] 10 Mg/325 Mg) 1 tab GT Q6H PRN PRN Reason: Pain (Moderate) Stop: 01/17/19 16:37 Last Admin: 11/19/18 04:16 Dose: 1 tab Albuterol Sulfate (Albuterol 2.5mg/3ml Neb Ud) 2.5 mg HHN Q2H PRN PRN Reason: Shortness of Breath Stop: 01/17/19 16:37 Albuterol/Ipratropium (Duoneb Neb) 3 ml HHN Q4HRT [facility] Stop: 01/17/19 18:59 Last Admin: 11/20/18 15:30 Dose: 3 ml Ascorbic Acid (Vitamin C) 500 mg GT Q12HR [facility] Stop: 01/17/19 20:59 Last Admin: 11/20/18 09:04 Dose: Not Given Budesonide (Pulmicort) 0.5 mg HHN BIDRT [facility] Stop: 01/18/19 06:59 Last Admin: 11/20/18 07:19 Dose: 0.5 mg Carvedilol (Coreg) 6.25 mg GT Q12H [facility] Stop: 01/17/19 16:44 Last Admin: 11/20/18 04:24 Dose: Not Given [place] Oil/[place] Balsam/Trypsin (Venelex) 1 appl TP DAILY [facility] Stop: 01/19/19 08:59 Last Admin: 11/20/18 08:59 Dose: 1 appl Chlorhexidine Gluconate (Peridex) 15 ml MM BID [facility] Stop: 01/17/19 16:59 Last Admin: 11/20/18 09:12 Dose: 15 ml Diphenhydramine HCl (Benadryl) 25 mg GT Q8H PRN PRN Reason: Itching Stop: 01/17/19 16:37 Last Admin: 11/18/18 20:54 Dose: 25 mg Docusate Sodium (Colace) 200 mg GT Q12H PRN PRN Reason: Stool softener Dextrose/Sodium Chloride (D5-0.45ns) 1,000 mls @ 50 mls/hr IV .Q20H [facility] Stop: 01/17/19 08:51 Last Admin: 11/20/18 02:16 Dose: 50 mls/hr Lorazepam (Ativan) 1 mg IVP Q4HR PRN; Protocol PRN Reason: Agitation Stop: 01/17/19 03:19 Last Admin: 11/20/18 15:19 Dose: 1 mg Lorazepam (Ativan) 1 mg GT Q6H PRN; Protocol PRN Reason: Anxiety Stop: 01/17/19 16:37 Last Admin: 11/20/18 15:28 Dose: 1 mg Magnesium Hydroxide (Milk Of Magnesia) 30 ml GT DAILY [facility] Stop: 01/18/19 08:59 Last Admin: 11/20/18 15:30 Dose: 30 ml Magnesium Oxide (Mag-Oxide) 400 mg GT BID [facility] Stop: 01/17/19 16:59 Last Admin: 11/20/18 09:04 Dose: Not Given Metoclopramide HCl (Reglan) 10 mg IVP Q8HR PRN PRN Reason: Abdominal Pain Stop: 01/17/19 08:47 Last Admin: 11/18/18 16:51 Dose: 10 mg Multivitamins/Minerals (Theragran M) 15 ml GT DAILY [facility] Stop: 01/18/19 08:59 Last Admin: 11/20/18 15:28 Dose: 15 ml Nystatin/Triamcinolone Acetonide (Mycolog Ii Cream) appl TP Q12H [facility] Stop: 01/17/19 16:44 Pantoprazole Sodium (Protonix) 40 mg IVP DAILY [facility] Stop: 01/17/19 08:59 Last Admin: 11/20/18 08:33 Dose: 40 mg Zinc Sulfate (Zinc Sulfate) 220 mg GT DAILY [facility] Stop: 01/18/19 08:59 Last Admin: 11/20/18 15:28 Dose: 220 mg General: weak, alert HEENT: NC/AT, PERRLA Neck: + trach Lungs: ronchi Cardiovascular: RRR, Normal S1, Normal S2 Abdomen: soft, non-tender, non-distended Extremities: excoriation - Procedures Procedures: Procedures Procedure Code Date RESPIRATORY VENTILATION, LESS THAN 24 CONSECUTIVE HOURS [id number] 04/07/18 Internal Medicine Assmt/Plan - Assessment Assessment: loss of consciousness, syncope resp. failure, acute on chronic dysphagia paraplegia dementia acute uti HTN asthma upper abd pain due to pna? CT showed ileus and GT h/o cva h/o fall - Plan Plan: pulm. support vitals labs as per order sheet f/u with consultants may need itac. eval. Nutritional Asmnt/Malnutr-PDOC - Dietary Evaluation Malnutrition Findings (Please click <Entered> for more info): Nutritional Asmnt/Malnutrition Start: 11/18/18 14: 42 Text: Status: Complete Freq: Protocol: Document 11/18/18 14:43 [email or web address] (Rec: 11/18/18 15:03 [email or web address]) Nutritional Asmnt/Malnutrition Patient General Information Nutritional Screening High Risk Consult Diagnosis syncope/fall Pertinent Medical Hx/Surgical Hx HTN, asthma/COPD, dyslipidemia , arthritis, dementia, tracheostomy Subjective Information 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 Pt was seen in bed at time of visit, trach to vent. Jevity 1.2 was running at 54ml/hr. Pt appeared fat and muscle wasting. Current Diet Order/ Nutrition Support jevity 1.2 54ml/hr x 20hrs, providing 1296kcal and 60g protein Pertinent Medications d5-0.45ns, reglan, protonix Pertinent Labs 11/17 cr 0.5, alb 3.3, triglycerides 152, LDL 68, HDL 21 Nutritional Hx/Data Height 1.63 m Height (Calculated Centimeters) 162.6 Current Weight (lbs) 43.545 kg Weight (Calculated Kilograms) 43.5 Weight (Calculated Grams) 15016.9 [place] Body Weight 120 Body Mass Index (BMI) 16.5 Weight Status Underweight GI Symptoms GI Symptoms None Last BM not indicated Difficult in: None Food Allergies No Usual diet at home per pt chart, Jevity 1.5 at 54 ml/hr for 20hr to provide 1620kcal/day at care facility Skin Integrity/Comment: rash to left hand, reddened left foot, discoloration to lower legs, ulceration to coccyx Estimated Nutritional Goals BEE in Kcals: Using Current wt Calories/Kcals/Kg 30-35 Kcals Calculated 0923-2606 Protein: Using Current wt Protein g/k.2-1.4 Protein Calculated 52-61 Fluid: ml 9138-8874 (1ml/kcal) Nutritional Problem 2. Problem Problem increased energy needs Etiology muscle wasting and wound healing Signs/Symptoms: BMI 16.5, stage 4 coccyx wound 1. Problem Problem inadequate energy/protein intake Etiology increased metabolic demand for wound healing Signs/Symptoms: stage 4 coccyx wound Malnutrition Alert Body Fat Depletion (Severe) Mod to Severe Depletion Muscle Mass (Severe) Mod to Severe Depletion Is there a minimum of two criteria Yes selected? Query Text:Check all the applicable criteria. A minimum of two criteria are recommended for diagnosis of either severe or non-severe malnutrition. Malnutrition Related to Morbid Obesity Malnutrition related to morbid obesity No Intervention/Recommendation Comments 1. Recommend Jevity 1.2 at 54ml/hr continuous, providing 1555kcal, 72g protein, 1045ml free water, meeting 100% of nutritional needs. Tried to reach RN about the TF recommendaction but not available at this time. Will follow up again. 2. Monitor TF rate, tolerance, wt, skin integrity and labs 3. F/U as high risk in 2-3 days Expected Outcomes/Goals Expected Outcomes/Goals 1. Pt to meet at least 90% of nutritional needs via nutrition support 2. Wt stability, skin to remain intact, labs to approach WNL. Reviewed by Tiffanie Guaman RD
[2018-11-21] MEDS: Albuterol/Ipratropium Neb 3 ML AERS HHN SCH ×4 (02:35→14:57)
[2018-11-21] MEDS: Budesonide 0.5 Mg/2 mL Ud HHN SCH (07:10)
[2018-11-21] MEDS: Magnesium Hydroxide (MOM) 30 mL UDC GT SCH (08:58)
[2018-11-21] MEDS: Multivitamin w/ Minerals 15 mL UDC GT SCH (08:58)
[2018-11-21] MEDS: Venelex 60gm Tube TP SCH (08:59)
[2018-11-21] MEDS: Chlorhexidine Gluconate 0.12% 15mL Mouthwash MM SCH ×2 (08:59→16:59)
[2018-11-21] MEDS: Hydrocodone/APAP 10 mg/325 mg Tab GT PRN (09:27)
--- NOTE | 2018-11-21 10:07 | Diagnostic Imaging Report ---
Abdominal ultrasound HISTORY: Pain, abnormal liver function test No focal hepatic lesions are seen. The gallbladder appears normal. No calculi are seen. Common bile duct measures 6 mm in diameter. Incomplete visualization of the pancreas. The right kidney appears normal. The left kidney is normal in size. A subcentimeter sonolucent lesion noted in the lower pole consistent with a cyst. No hydronephrosis. The spleen is normal in size. Evidence of atherosclerotic calcification seen in the aorta. No other definite retroperitoneal or intra-abdominal abnormalities. IMPRESSION: 1. Findings consistent with a subcentimeter left renal cyst 2. Evidence of atherosclerotic vascular changes
--- NOTE | 2018-11-21 10:57 | Infectious Disease Prog Note ---
Infectious Disease Subjective - Review of Systems Service Date: 11/21/18 Subjective: There is no new change, no fever,. On t bar oxygen. Infectious Disease Objective - Results Result Diagrams: 11/20/18 05:50 11/20/18 05:50 Recent Labs: Laboratory Last Values WBC 5.7 Th/cmm (4.8-10.8) D 11/20/18 05:50 RBC 3.30 Mil/cmm (3.80-5.10) L 11/20/18 05:50 Hgb 10.3 gm/dL (12-16) L 11/20/18 05:50 Hct 30.4 % (41.0-60) L 11/20/18 05:50 MCV 92.2 fl (81-100) 11/20/18 05:50 MCH 31.2 pg (27.0-31.0) H 11/20/18 05:50 MCHC Differential 33.9 pg (28.0-36.0) 11/20/18 05:50 RDW 14.1 % (11.5-20.0) 11/20/18 05:50 Plt Count 352 Th/cmm (150-400) 11/20/18 05:50 MPV 7.4 fl 11/20/18 05:50 Add Manual Diff YES 11/19/18 08:18 Neutrophils % 70.0 % (40.0-80.0) 11/20/18 05:50 Band Neutrophils % 2 % (0-10) 11/19/18 08:18 Lymphocytes % 17.9 % (20.0-50.0) L 11/20/18 05:50 Monocytes % 8.4 % (2.0-10.0) 11/20/18 05:50 Eosinophils % 3.3 % (0.0-5.0) 11/20/18 05:50 Basophils % 0.4 % (0.0-2.0) 11/20/18 05:50 Neutrophils (Manual) 55 % (40-80) 11/19/18 08:18 Lymphocytes 28 % (20-50) 11/19/18 08:18 Monocytes 9 % (2-10) 11/19/18 08:18 Eosinophils 6 % (0-5) H 11/19/18 08:18 Basophils 0 % (0-3) 11/19/18 08:18 PT 11.4 SECONDS (9.5-11.5) 11/17/18 15:07 INR 1.11 (0.5-1.4) 11/17/18 15:07 Sodium 139 mEq/L (136-145) 11/20/18 05:50 Potassium 4.0 mEq/L (3.5-5.1) 11/20/18 05:50 Chloride 102 mEq/L (98-107) 11/20/18 05:50 Carbon Dioxide 29.6 mEq/L (21.0-31.0) 11/20/18 05:50 Anion Gap 11.4 (7.0-16.0) 11/20/18 05:50 BUN 18 mg/dL (7-25) 11/20/18 05:50 Creatinine 0.4 mg/dL (0.6-1.2) L 11/20/18 05:50 Est GFR ( Amer) > 60.0 ml/min (>90) 11/20/18 05:50 Est GFR (Non-Af Amer) > 60.0 ml/min 11/20/18 05:50 BUN/Creatinine Ratio 45.0 11/20/18 05:50 Glucose 97 mg/dL (70-105) 11/20/18 05:50 Calcium 9.5 mg/dL (8.6-10.3) 11/20/18 05:50 Total Bilirubin 0.3 mg/dL (0.3-1.0) 11/19/18 08:18 GGTP 24 IU/L (0-60) 11/18/18 09:06 AST 12 U/L (13-39) L 11/19/18 08:18 ALT 20 U/L (7-52) 11/19/18 08:18 Alkaline Phosphatase 130 U/L (34-104) H 11/19/18 08:18 Creatine Kinase 33 U/L (30-223) 11/17/18 15:07 Troponin I 0.01 ng/mL (0.01-0.05) 11/17/18 15:07 B-Natriuretic Peptide 73.4 pg/mL (5.0-100.0) 11/17/18 15:07 Total Protein 6.9 gm/dL (6.0-8.3) 11/19/18 08:18 Albumin 3.0 gm/dL (3.7-5.3) L 11/19/18 08:18 Globulin 3.9 gm/dL 11/19/18 08:18 Albumin/Globulin Ratio 0.8 (1.0-1.8) L 11/19/18 08:18 Triglycerides 152 mg/dL (<150) H 11/17/18 15:07 Cholesterol 106 mg/dL (<200) 11/17/18 15:07 LDL Cholesterol Direct 68 mg/dL (75-193) L 11/17/18 15:07 HDL Cholesterol 21 mg/dL (23-92) L 11/17/18 15:07 Amylase 11 U/L (29-103) L 11/18/18 09:06 Lipase 12 U/L (11-82) 11/18/18 09:06 Urine Source [place] 11/19/18 04:00 Urine Color YELLOW 11/19/18 04:00 Urine Clarity CLEAR (CLEAR) 11/19/18 04:00 Urine pH 8.0 (4.6 - 8.0) 11/19/18 04:00 Ur Specific [place] 1.010 (1.005-1.030) 11/19/18 04:00 Urine Protein NEGATIVE mg/dL (NEGATIVE) 11/19/18 04:00 Urine Glucose (UA) NEGATIVE mg/dL (NEGATIVE) 11/19/18 04:00 Urine Ketones NEGATIVE mg/dL (NEGATIVE) 11/19/18 04:00 Urine Blood TRACE (NEGATIVE) 11/19/18 04:00 Urine Nitrate NEGATIVE (NEGATIVE) 11/19/18 04:00 Urine Bilirubin NEGATIVE (NEGATIVE) 11/19/18 04:00 Urine Urobilinogen 1.0 E.U./dL (0.2 - 1.0) 11/19/18 04:00 Ur Leukocyte Esterase NEGATIVE (NEGATIVE) 11/19/18 04:00 Urine RBC 0-2 /hpf (0-5) 11/19/18 04:00 Urine WBC 0-2 /hpf (0-5) 11/19/18 04:00 Ur Epithelial Cells RARE /lpf (FEW) 11/19/18 04:00 Other Crystals MODERATE /hpf 11/19/18 04:00 Urine Bacteria NONE SEEN /hpf (NONE SEEN) 11/19/18 04:00 Other Casts /LPF (NONE SEEN) 11/19/18 04:00 - Physical Exam Vitals and I&O: Vital Signs Temp 97.5 F 11/21/18 08:00 Pulse 79 11/21/18 10:33 Resp 20 11/21/18 10:33 BP 98/69 11/21/18 08:00 Pulse Ox 98 11/21/18 10:33 Intake & Output 11/20/18 11/21/18 11/21/18 18:59 06:59 18:59 Intake Total 497 1441.667 Output Total 900 600 Balance -403 841.667 Weight (lbs) 43.545 kg 44.089 kg Intake: Intake, IV Amount 941.667 D5-0.45NS 1,000 ml @ 50 941.667 mls/hr IV .Q20H [facility] Rx#: [id number] Tube Feeding 297 500 Other 200 Output: Urine 900 600 Other: # Bowel Movements 0 0 Stool Characteristics Soft Formed Weight Source Bedscale Bedscale Active Medications: Current Medications Acetaminophen/Hydrocodone Bitart ([place] 10 Mg/325 Mg) 1 tab GT Q6H PRN PRN Reason: Pain (Moderate) Stop: 01/17/19 16:37 Last Admin: 11/21/18 09:27 Dose: 1 tab Albuterol Sulfate (Albuterol 2.5mg/3ml Neb Ud) 2.5 mg HHN Q2H PRN PRN Reason: Shortness of Breath Stop: 01/17/19 16:37 Albuterol/Ipratropium (Duoneb Neb) 3 ml HHN Q4HRT [facility] Stop: 01/17/19 18:59 Last Admin: 11/21/18 10:33 Dose: 3 ml Ascorbic Acid (Vitamin C) 500 mg GT Q12HR [facility] Stop: 01/17/19 20:59 Last Admin: 11/21/18 08:58 Dose: 500 mg Budesonide (Pulmicort) 0.5 mg HHN BIDRT [facility] Stop: 01/18/19 06:59 Last Admin: 11/21/18 07:10 Dose: 0.5 mg Carvedilol (Coreg) 6.25 mg GT Q12H [facility] Stop: 01/17/19 16:44 Last Admin: 11/21/18 04:36 Dose: 6.25 mg [place] Oil/[place] Balsam/Trypsin (Venelex) 1 appl TP DAILY [facility] Stop: 01/19/19 08:59 Last Admin: 11/21/18 08:59 Dose: 1 appl Chlorhexidine Gluconate (Peridex) 15 ml MM BID [facility] Stop: 01/17/19 16:59 Last Admin: 11/21/18 08:59 Dose: 15 ml Diphenhydramine HCl (Benadryl) 25 mg GT Q8H PRN PRN Reason: Itching Stop: 01/17/19 16:37 Last Admin: 11/18/18 20:54 Dose: 25 mg Docusate Sodium (Colace) 200 mg GT Q12H PRN PRN Reason: Stool softener Dextrose/Sodium Chloride (D5-0.45ns) 1,000 mls @ 50 mls/hr IV .Q20H [facility] Stop: 01/17/19 08:51 Last Admin: 11/20/18 21:06 Dose: 50 mls/hr Lorazepam (Ativan) 1 mg IVP Q4HR PRN; Protocol PRN Reason: Agitation Stop: 01/17/19 03:19 Last Admin: 11/20/18 15:19 Dose: 1 mg Lorazepam (Ativan) 1 mg GT Q6H PRN; Protocol PRN Reason: Anxiety Stop: 01/17/19 16:37 Last Admin: 11/20/18 15:28 Dose: 1 mg Magnesium Hydroxide (Milk Of Magnesia) 30 ml GT DAILY [facility] Stop: 01/18/19 08:59 Last Admin: 11/21/18 08:58 Dose: 30 ml Magnesium Oxide (Mag-Oxide) 400 mg GT BID [facility] Stop: 01/17/19 16:59 Last Admin: 11/21/18 08:58 Dose: 400 mg Metoclopramide HCl (Reglan) 10 mg IVP Q8HR PRN PRN Reason: Abdominal Pain Stop: 01/17/19 08:47 Last Admin: 11/18/18 16:51 Dose: 10 mg Multivitamins/Minerals (Theragran M) 15 ml GT DAILY [facility] Stop: 01/18/19 08:59 Last Admin: 11/21/18 08:58 Dose: 15 ml Nystatin/Triamcinolone Acetonide (Mycolog Ii Cream) 1 appl TP BID [facility] Stop: 01/20/19 08:59 Last Admin: 11/21/18 09:51 Dose: 1 appl Pantoprazole Sodium (Protonix) 40 mg IVP DAILY [facility] Stop: 01/17/19 08:59 Last Admin: 11/21/18 08:58 Dose: 40 mg Zinc Sulfate (Zinc Sulfate) 220 mg GT DAILY [facility] Stop: 01/18/19 08:59 Last Admin: 11/21/18 08:58 Dose: 220 mg General: no acute distress, well developed, well nourished HEENT: atraumatic, normocephalic, PERRLA, EOMI Neck: supple, no thyromegaly Cardiovascular: S1S2, regular Lungs: clear to auscultation bilaterally, clear to percussion Abdomen: soft, no tender, no distended Extremities: no cyanosis, no clubbing, no edema Neurological: awake, alert, oriented Skin: intact - Procedures Procedures: Procedures Procedure Code Date RESPIRATORY VENTILATION, LESS THAN 24 CONSECUTIVE HOURS [id number] 04/07/18 Infectious Disease Assmt/Plan - Assessment Assessment: 1. Pneumonia (on CT A/P), and recent history of Acinetobacter in sputum, currently sputum cs is growing GNR. 2. Sacral decubitus ulcer, stage 4. No sign of infection. 3. Respiratory failure on T-bar oxygen. 4. Chronic obstructive pulmonary disease. 5. H/o Acinetobacter baumannii complex colonization. 6. History of cerebrovascular accident. 7. Carotid disease. 8. Protein-calorie malnutrition. 9. History of fall. 10. May have history of urinary tract infection as the patient receiving nitrofurantoin. UA is clear. - Plan Plan: Start Colistin IV. Nutritional Asmnt/Malnutr-PDOC - Dietary Evaluation Malnutrition Findings (Please click <Entered> for more info): Nutritional Asmnt/Malnutrition Start: 11/18/18 14: 42 Text: Status: Complete Freq: Protocol: Document 11/18/18 14:43 [email or web address] (Rec: 11/18/18 15:03 [email or web address] AMBER) Nutritional Asmnt/Malnutrition Patient General Information Nutritional Screening High Risk Consult Diagnosis syncope/fall Pertinent Medical Hx/Surgical Hx HTN, asthma/COPD, dyslipidemia , arthritis, dementia, tracheostomy Subjective Information 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 Pt was seen in bed at time of visit, trach to vent. [employer] 1.2 was running at 54ml/hr. Pt appeared fat and muscle wasting. Current Diet Order/ Nutrition Support jevity 1.2 54ml/hr x 20hrs, providing 1296kcal and 60g protein Pertinent Medications d5-0.45ns, reglan, protonix Pertinent Labs 11/17 cr 0.5, alb 3.3, triglycerides 152, LDL 68, HDL 21 Nutritional Hx/Data Height 1.63 m Height (Calculated Centimeters) 162.6 Current Weight (lbs) 43.545 kg Weight (Calculated Kilograms) 43.5 Weight (Calculated Grams) 10745.9 [place] Body Weight 120 Body Mass Index (BMI) 16.5 Weight Status Underweight GI Symptoms GI Symptoms None Last BM not indicated Difficult in: None Food Allergies No Usual diet at home per pt chart, Jevity 1.5 at 54 ml/hr for 20hr to provide 1620kcal/day at care facility Skin Integrity/Comment: rash to left hand, reddened left foot, discoloration to lower legs, ulceration to coccyx Estimated Nutritional Goals BEE in Kcals: Using Current wt Calories/Kcals/Kg 30-35 Kcals Calculated 4810-1682 Protein: Using Current wt Protein g/k.2-1.4 Protein Calculated 52-61 Fluid: ml 3857-4810 (1ml/kcal) Nutritional Problem 2. Problem Problem increased energy needs Etiology muscle wasting and wound healing Signs/Symptoms: BMI 16.5, stage 4 coccyx wound 1. Problem Problem inadequate energy/protein intake Etiology increased metabolic demand for wound healing Signs/Symptoms: stage 4 coccyx wound Malnutrition Alert Body Fat Depletion (Severe) Mod to Severe Depletion Muscle Mass (Severe) Mod to Severe Depletion Is there a minimum of two criteria Yes selected? Query Text:Check all the applicable criteria. A minimum of two criteria are recommended for diagnosis of either severe or non-severe malnutrition. Malnutrition Related to Morbid Obesity Malnutrition related to morbid obesity No Intervention/Recommendation Comments 1. Recommend Jevity 1.2 at 54ml/hr continuous, providing 1555kcal, 72g protein, 1045ml free water, meeting 100% of nutritional needs. Tried to reach RN about the TF recommendaction but not available at this time. Will follow up again. 2. Monitor TF rate, tolerance, wt, skin integrity and labs 3. F/U as high risk in 2-3 days Expected Outcomes/Goals Expected Outcomes/Goals 1. Pt to meet at least 90% of nutritional needs via nutrition support 2. Wt stability, skin to remain intact, labs to approach WNL. Reviewed by Tiffanie Guaman RD
--- NOTE | 2018-11-21 11:05 | Infectious Disease Prog Note ---
Infectious Disease Subjective - Review of Systems Service Date: 11/21/18 Subjective: There is no new change, no fever,. On t bar oxygen. Infectious Disease Objective - Results Result Diagrams: 11/20/18 05:50 11/20/18 05:50 Recent Labs: Laboratory Last Values WBC 5.7 Th/cmm (4.8-10.8) D 11/20/18 05:50 RBC 3.30 Mil/cmm (3.80-5.10) L 11/20/18 05:50 Hgb 10.3 gm/dL (12-16) L 11/20/18 05:50 Hct 30.4 % (41.0-60) L 11/20/18 05:50 MCV 92.2 fl (81-100) 11/20/18 05:50 MCH 31.2 pg (27.0-31.0) H 11/20/18 05:50 MCHC Differential 33.9 pg (28.0-36.0) 11/20/18 05:50 RDW 14.1 % (11.5-20.0) 11/20/18 05:50 Plt Count 352 Th/cmm (150-400) 11/20/18 05:50 MPV 7.4 fl 11/20/18 05:50 Add Manual Diff YES 11/19/18 08:18 Neutrophils % 70.0 % (40.0-80.0) 11/20/18 05:50 Band Neutrophils % 2 % (0-10) 11/19/18 08:18 Lymphocytes % 17.9 % (20.0-50.0) L 11/20/18 05:50 Monocytes % 8.4 % (2.0-10.0) 11/20/18 05:50 Eosinophils % 3.3 % (0.0-5.0) 11/20/18 05:50 Basophils % 0.4 % (0.0-2.0) 11/20/18 05:50 Neutrophils (Manual) 55 % (40-80) 11/19/18 08:18 Lymphocytes 28 % (20-50) 11/19/18 08:18 Monocytes 9 % (2-10) 11/19/18 08:18 Eosinophils 6 % (0-5) H 11/19/18 08:18 Basophils 0 % (0-3) 11/19/18 08:18 PT 11.4 SECONDS (9.5-11.5) 11/17/18 15:07 INR 1.11 (0.5-1.4) 11/17/18 15:07 Sodium 139 mEq/L (136-145) 11/20/18 05:50 Potassium 4.0 mEq/L (3.5-5.1) 11/20/18 05:50 Chloride 102 mEq/L (98-107) 11/20/18 05:50 Carbon Dioxide 29.6 mEq/L (21.0-31.0) 11/20/18 05:50 Anion Gap 11.4 (7.0-16.0) 11/20/18 05:50 BUN 18 mg/dL (7-25) 11/20/18 05:50 Creatinine 0.4 mg/dL (0.6-1.2) L 11/20/18 05:50 Est GFR ( Amer) > 60.0 ml/min (>90) 11/20/18 05:50 Est GFR (Non-Af Amer) > 60.0 ml/min 11/20/18 05:50 BUN/Creatinine Ratio 45.0 11/20/18 05:50 Glucose 97 mg/dL (70-105) 11/20/18 05:50 Calcium 9.5 mg/dL (8.6-10.3) 11/20/18 05:50 Total Bilirubin 0.3 mg/dL (0.3-1.0) 11/19/18 08:18 GGTP 24 IU/L (0-60) 11/18/18 09:06 AST 12 U/L (13-39) L 11/19/18 08:18 ALT 20 U/L (7-52) 11/19/18 08:18 Alkaline Phosphatase 130 U/L (34-104) H 11/19/18 08:18 Creatine Kinase 33 U/L (30-223) 11/17/18 15:07 Troponin I 0.01 ng/mL (0.01-0.05) 11/17/18 15:07 B-Natriuretic Peptide 73.4 pg/mL (5.0-100.0) 11/17/18 15:07 Total Protein 6.9 gm/dL (6.0-8.3) 11/19/18 08:18 Albumin 3.0 gm/dL (3.7-5.3) L 11/19/18 08:18 Globulin 3.9 gm/dL 11/19/18 08:18 Albumin/Globulin Ratio 0.8 (1.0-1.8) L 11/19/18 08:18 Triglycerides 152 mg/dL (<150) H 11/17/18 15:07 Cholesterol 106 mg/dL (<200) 11/17/18 15:07 LDL Cholesterol Direct 68 mg/dL (75-193) L 11/17/18 15:07 HDL Cholesterol 21 mg/dL (23-92) L 11/17/18 15:07 Amylase 11 U/L (29-103) L 11/18/18 09:06 Lipase 12 U/L (11-82) 11/18/18 09:06 Urine Source [place] 11/19/18 04:00 Urine Color YELLOW 11/19/18 04:00 Urine Clarity CLEAR (CLEAR) 11/19/18 04:00 Urine pH 8.0 (4.6 - 8.0) 11/19/18 04:00 Ur Specific [place] 1.010 (1.005-1.030) 11/19/18 04:00 Urine Protein NEGATIVE mg/dL (NEGATIVE) 11/19/18 04:00 Urine Glucose (UA) NEGATIVE mg/dL (NEGATIVE) 11/19/18 04:00 Urine Ketones NEGATIVE mg/dL (NEGATIVE) 11/19/18 04:00 Urine Blood TRACE (NEGATIVE) 11/19/18 04:00 Urine Nitrate NEGATIVE (NEGATIVE) 11/19/18 04:00 Urine Bilirubin NEGATIVE (NEGATIVE) 11/19/18 04:00 Urine Urobilinogen 1.0 E.U./dL (0.2 - 1.0) 11/19/18 04:00 Ur Leukocyte Esterase NEGATIVE (NEGATIVE) 11/19/18 04:00 Urine RBC 0-2 /hpf (0-5) 11/19/18 04:00 Urine WBC 0-2 /hpf (0-5) 11/19/18 04:00 Ur Epithelial Cells RARE /lpf (FEW) 11/19/18 04:00 Other Crystals MODERATE /hpf 11/19/18 04:00 Urine Bacteria NONE SEEN /hpf (NONE SEEN) 11/19/18 04:00 Other Casts /LPF (NONE SEEN) 11/19/18 04:00 - Physical Exam Vitals and I&O: Vital Signs Temp 97.5 F 11/21/18 08:00 Pulse 79 11/21/18 10:33 Resp 20 11/21/18 10:33 BP 98/69 11/21/18 08:00 Pulse Ox 98 11/21/18 10:33 Intake & Output 11/20/18 11/21/18 11/21/18 18:59 06:59 18:59 Intake Total 497 1441.667 Output Total 900 600 Balance -403 841.667 Weight (lbs) 43.545 kg 44.089 kg Intake: Intake, IV Amount 941.667 D5-0.45NS 1,000 ml @ 50 941.667 mls/hr IV .Q20H [facility] Rx#: [id number] Tube Feeding 297 500 Other 200 Output: Urine 900 600 Other: # Bowel Movements 0 0 Stool Characteristics Soft Formed Weight Source Bedscale Bedscale Active Medications: Current Medications Acetaminophen/Hydrocodone Bitart ([place] 10 Mg/325 Mg) 1 tab GT Q6H PRN PRN Reason: Pain (Moderate) Stop: 01/17/19 16:37 Last Admin: 11/21/18 09:27 Dose: 1 tab Albuterol Sulfate (Albuterol 2.5mg/3ml Neb Ud) 2.5 mg HHN Q2H PRN PRN Reason: Shortness of Breath Stop: 01/17/19 16:37 Albuterol/Ipratropium (Duoneb Neb) 3 ml HHN Q4HRT [facility] Stop: 01/17/19 18:59 Last Admin: 11/21/18 10:33 Dose: 3 ml Ascorbic Acid (Vitamin C) 500 mg GT Q12HR [facility] Stop: 01/17/19 20:59 Last Admin: 11/21/18 08:58 Dose: 500 mg Budesonide (Pulmicort) 0.5 mg HHN BIDRT [facility] Stop: 01/18/19 06:59 Last Admin: 11/21/18 07:10 Dose: 0.5 mg Carvedilol (Coreg) 6.25 mg GT Q12H [facility] Stop: 01/17/19 16:44 Last Admin: 11/21/18 04:36 Dose: 6.25 mg [place] Oil/[place] Balsam/Trypsin (Venelex) 1 appl TP DAILY [facility] Stop: 01/19/19 08:59 Last Admin: 11/21/18 08:59 Dose: 1 appl Chlorhexidine Gluconate (Peridex) 15 ml MM BID [facility] Stop: 01/17/19 16:59 Last Admin: 11/21/18 08:59 Dose: 15 ml Diphenhydramine HCl (Benadryl) 25 mg GT Q8H PRN PRN Reason: Itching Stop: 01/17/19 16:37 Last Admin: 11/18/18 20:54 Dose: 25 mg Docusate Sodium (Colace) 200 mg GT Q12H PRN PRN Reason: Stool softener Dextrose/Sodium Chloride (D5-0.45ns) 1,000 mls @ 50 mls/hr IV .Q20H [facility] Stop: 01/17/19 08:51 Last Admin: 11/20/18 21:06 Dose: 50 mls/hr Colistimethate Sodium 150 mg/ (Sodium Chloride) 100 mls @ 100 mls/hr IV Q12HR [facility] Stop: 01/20/19 20:59 Lorazepam (Ativan) 1 mg IVP Q4HR PRN; Protocol PRN Reason: Agitation Stop: 01/17/19 03:19 Last Admin: 11/20/18 15:19 Dose: 1 mg Lorazepam (Ativan) 1 mg GT Q6H PRN; Protocol PRN Reason: Anxiety Stop: 01/17/19 16:37 Last Admin: 11/20/18 15:28 Dose: 1 mg Magnesium Hydroxide (Milk Of Magnesia) 30 ml GT DAILY [facility] Stop: 01/18/19 08:59 Last Admin: 11/21/18 08:58 Dose: 30 ml Magnesium Oxide (Mag-Oxide) 400 mg GT BID [facility] Stop: 01/17/19 16:59 Last Admin: 11/21/18 08:58 Dose: 400 mg Metoclopramide HCl (Reglan) 10 mg IVP Q8HR PRN PRN Reason: Abdominal Pain Stop: 01/17/19 08:47 Last Admin: 11/18/18 16:51 Dose: 10 mg Multivitamins/Minerals (Theragran M) 15 ml GT DAILY [facility] Stop: 01/18/19 08:59 Last Admin: 11/21/18 08:58 Dose: 15 ml Nystatin/Triamcinolone Acetonide (Mycolog Ii Cream) 1 appl TP BID [facility] Stop: 01/20/19 08:59 Last Admin: 11/21/18 09:51 Dose: 1 appl Pantoprazole Sodium (Protonix) 40 mg IVP DAILY [facility] Stop: 01/17/19 08:59 Last Admin: 11/21/18 08:58 Dose: 40 mg Zinc Sulfate (Zinc Sulfate) 220 mg GT DAILY [facility] Stop: 01/18/19 08:59 Last Admin: 11/21/18 08:58 Dose: 220 mg General: no acute distress, cachectic HEENT: atraumatic, normocephalic, PERRLA, EOMI Neck: supple, tracheostomy Cardiovascular: S1S2, regular Lungs: clear to auscultation bilaterally, clear to percussion Abdomen: soft, no tender, no distended, no rebound Extremities: no cyanosis, no clubbing, no edema Neurological: awake, alert Skin: other (sacral wound) - Procedures Procedures: Procedures Procedure Code Date RESPIRATORY VENTILATION, LESS THAN 24 CONSECUTIVE HOURS 4E0995Y 04/07/18 Infectious Disease Assmt/Plan - Assessment Assessment: 1. Pneumonia (on CT A/P), and recent history of Acinetobacter in sputum, currently sputum cs is growing GNR. 2. Sacral decubitus ulcer, stage 4. No sign of infection. 3. Respiratory failure on T-bar oxygen. 4. Chronic obstructive pulmonary disease. 5. H/o Acinetobacter baumannii complex colonization. 6. History of cerebrovascular accident. 7. Carotid disease. 8. Protein-calorie malnutrition. 9. History of fall. 10. May have history of urinary tract infection as the patient receiving nitrofurantoin. UA is clear. - Plan Plan: Start Colistin IV. Nutritional Asmnt/Malnutr-PDOC - Dietary Evaluation Malnutrition Findings (Please click <Entered> for more info): Nutritional Asmnt/Malnutrition Start: 11/18/18 14: 42 Text: Status: Complete Freq: Protocol: Document 11/18/18 14:43 [email or web address] (Rec: 11/18/18 15:03 [email or web address]) Nutritional Asmnt/Malnutrition Patient General Information Nutritional Screening High Risk Consult Diagnosis syncope/fall Pertinent Medical Hx/Surgical Hx HTN, asthma/COPD, dyslipidemia , arthritis, dementia, tracheostomy Subjective Information 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 Pt was seen in bed at time of visit, trach to vent. Jevity 1.2 was running at 54ml/hr. Pt appeared fat and muscle wasting. Current Diet Order/ Nutrition Support jevity 1.2 54ml/hr x 20hrs, providing 1296kcal and 60g protein Pertinent Medications d5-0.45ns, reglan, protonix Pertinent Labs 11/17 cr 0.5, alb 3.3, triglycerides 152, LDL 68, HDL 21 Nutritional Hx/Data Height 1.63 m Height (Calculated Centimeters) 162.6 Current Weight (lbs) 43.545 kg Weight (Calculated Kilograms) 43.5 Weight (Calculated Grams) 83611.9 [place] Body Weight 120 Body Mass Index (BMI) 16.5 Weight Status Underweight GI Symptoms GI Symptoms None Last BM not indicated Difficult in: None Food Allergies No Usual diet at home per pt chart, Jevity 1.5 at 54 ml/hr for 20hr to provide 1620kcal/day at care facility Skin Integrity/Comment: rash to left hand, reddened left foot, discoloration to lower legs, ulceration to coccyx Estimated Nutritional Goals BEE in Kcals: Using Current wt Calories/Kcals/Kg 30-35 Kcals Calculated 0293-1579 Protein: Using Current wt Protein g/k.2-1.4 Protein Calculated 52-61 Fluid: ml 2931-4800 (1ml/kcal) Nutritional Problem 2. Problem Problem increased energy needs Etiology muscle wasting and wound healing Signs/Symptoms: BMI 16.5, stage 4 coccyx wound 1. Problem Problem inadequate energy/protein intake Etiology increased metabolic demand for wound healing Signs/Symptoms: stage 4 coccyx wound Malnutrition Alert Body Fat Depletion (Severe) Mod to Severe Depletion Muscle Mass (Severe) Mod to Severe Depletion Is there a minimum of two criteria Yes selected? Query Text:Check all the applicable criteria. A minimum of two criteria are recommended for diagnosis of either severe or non-severe malnutrition. Malnutrition Related to Morbid Obesity Malnutrition related to morbid obesity No Intervention/Recommendation Comments 1. Recommend Jevity 1.2 at 54ml/hr continuous, providing 1555kcal, 72g protein, 1045ml free water, meeting 100% of nutritional needs. Tried to reach RN about the TF recommendaction but not available at this time. Will follow up again. 2. Monitor TF rate, tolerance, wt, skin integrity and labs 3. F/U as high risk in 2-3 days Expected Outcomes/Goals Expected Outcomes/Goals 1. Pt to meet at least 90% of nutritional needs via nutrition support 2. Wt stability, skin to remain intact, labs to approach WNL. Reviewed by Tiffanie Guaman RD
--- NOTE | 2018-11-21 12:59 | GI Progress Note ---
Subjective - Review of Systems Subjective: DENIES ABD PAIN Objective - Results Result Diagrams: 11/20/18 05:50 11/20/18 05:50 Recent Labs: Laboratory Last Values WBC 5.7 Th/cmm (4.8-10.8) D 11/20/18 05:50 RBC 3.30 Mil/cmm (3.80-5.10) L 11/20/18 05:50 Hgb 10.3 gm/dL (12-16) L 11/20/18 05:50 Hct 30.4 % (41.0-60) L 11/20/18 05:50 MCV 92.2 fl (81-100) 11/20/18 05:50 MCH 31.2 pg (27.0-31.0) H 11/20/18 05:50 MCHC Differential 33.9 pg (28.0-36.0) 11/20/18 05:50 RDW 14.1 % (11.5-20.0) 11/20/18 05:50 Plt Count 352 Th/cmm (150-400) 11/20/18 05:50 MPV 7.4 fl 11/20/18 05:50 Add Manual Diff YES 11/19/18 08:18 Neutrophils % 70.0 % (40.0-80.0) 11/20/18 05:50 Band Neutrophils % 2 % (0-10) 11/19/18 08:18 Lymphocytes % 17.9 % (20.0-50.0) L 11/20/18 05:50 Monocytes % 8.4 % (2.0-10.0) 11/20/18 05:50 Eosinophils % 3.3 % (0.0-5.0) 11/20/18 05:50 Basophils % 0.4 % (0.0-2.0) 11/20/18 05:50 Neutrophils (Manual) 55 % (40-80) 11/19/18 08:18 Lymphocytes 28 % (20-50) 11/19/18 08:18 Monocytes 9 % (2-10) 11/19/18 08:18 Eosinophils 6 % (0-5) H 11/19/18 08:18 Basophils 0 % (0-3) 11/19/18 08:18 PT 11.4 SECONDS (9.5-11.5) 11/17/18 15:07 INR 1.11 (0.5-1.4) 11/17/18 15:07 Sodium 139 mEq/L (136-145) 11/20/18 05:50 Potassium 4.0 mEq/L (3.5-5.1) 11/20/18 05:50 Chloride 102 mEq/L (98-107) 11/20/18 05:50 Carbon Dioxide 29.6 mEq/L (21.0-31.0) 11/20/18 05:50 Anion Gap 11.4 (7.0-16.0) 11/20/18 05:50 BUN 18 mg/dL (7-25) 11/20/18 05:50 Creatinine 0.4 mg/dL (0.6-1.2) L 11/20/18 05:50 Est GFR ( Amer) > 60.0 ml/min (>90) 11/20/18 05:50 Est GFR (Non-Af Amer) > 60.0 ml/min 11/20/18 05:50 BUN/Creatinine Ratio 45.0 11/20/18 05:50 Glucose 97 mg/dL (70-105) 11/20/18 05:50 Calcium 9.5 mg/dL (8.6-10.3) 11/20/18 05:50 Total Bilirubin 0.3 mg/dL (0.3-1.0) 11/19/18 08:18 GGTP 24 IU/L (0-60) 11/18/18 09:06 AST 12 U/L (13-39) L 11/19/18 08:18 ALT 20 U/L (7-52) 11/19/18 08:18 Alkaline Phosphatase 130 U/L (34-104) H 11/19/18 08:18 Creatine Kinase 33 U/L (30-223) 11/17/18 15:07 Troponin I 0.01 ng/mL (0.01-0.05) 11/17/18 15:07 B-Natriuretic Peptide 73.4 pg/mL (5.0-100.0) 11/17/18 15:07 Total Protein 6.9 gm/dL (6.0-8.3) 11/19/18 08:18 Albumin 3.0 gm/dL (3.7-5.3) L 11/19/18 08:18 Globulin 3.9 gm/dL 11/19/18 08:18 Albumin/Globulin Ratio 0.8 (1.0-1.8) L 11/19/18 08:18 Triglycerides 152 mg/dL (<150) H 11/17/18 15:07 Cholesterol 106 mg/dL (<200) 11/17/18 15:07 LDL Cholesterol Direct 68 mg/dL (75-193) L 11/17/18 15:07 HDL Cholesterol 21 mg/dL (23-92) L 11/17/18 15:07 Amylase 11 U/L (29-103) L 11/18/18 09:06 Lipase 12 U/L (11-82) 11/18/18 09:06 Urine Source [place] 11/19/18 04:00 Urine Color YELLOW 11/19/18 04:00 Urine Clarity CLEAR (CLEAR) 11/19/18 04:00 Urine pH 8.0 (4.6 - 8.0) 11/19/18 04:00 Ur Specific [place] 1.010 (1.005-1.030) 11/19/18 04:00 Urine Protein NEGATIVE mg/dL (NEGATIVE) 11/19/18 04:00 Urine Glucose (UA) NEGATIVE mg/dL (NEGATIVE) 11/19/18 04:00 Urine Ketones NEGATIVE mg/dL (NEGATIVE) 11/19/18 04:00 Urine Blood TRACE (NEGATIVE) 11/19/18 04:00 Urine Nitrate NEGATIVE (NEGATIVE) 11/19/18 04:00 Urine Bilirubin NEGATIVE (NEGATIVE) 11/19/18 04:00 Urine Urobilinogen 1.0 E.U./dL (0.2 - 1.0) 11/19/18 04:00 Ur Leukocyte Esterase NEGATIVE (NEGATIVE) 11/19/18 04:00 Urine RBC 0-2 /hpf (0-5) 11/19/18 04:00 Urine WBC 0-2 /hpf (0-5) 11/19/18 04:00 Ur Epithelial Cells RARE /lpf (FEW) 11/19/18 04:00 Other Crystals MODERATE /hpf 11/19/18 04:00 Urine Bacteria NONE SEEN /hpf (NONE SEEN) 11/19/18 04:00 Other Casts /LPF (NONE SEEN) 11/19/18 04:00 - Physical Exam Vitals and I&O: Vital Signs Temp 98.4 F 11/21/18 12:00 Pulse 81 11/21/18 12:00 Resp 19 11/21/18 12:00 BP 102/68 11/21/18 12:00 Pulse Ox 93 11/21/18 12:00 Intake & Output 11/20/18 11/21/18 11/21/18 18:59 06:59 18:59 Intake Total 497 1441.667 Output Total 900 600 Balance -403 841.667 Weight (lbs) 43.545 kg 44.089 kg Intake: Intake, IV Amount 941.667 D5-0.45NS 1,000 ml @ 50 941.667 mls/hr IV .Q20H [facility] Rx#: [id number] Tube Feeding 297 500 Other 200 Output: Urine 900 600 Other: # Bowel Movements 0 0 Stool Characteristics Soft Formed Weight Source Bedscale Bedscale Active Medications: Current Medications Acetaminophen/Hydrocodone Bitart ([place] 10 Mg/325 Mg) 1 tab GT Q6H PRN PRN Reason: Pain (Moderate) Stop: 01/17/19 16:37 Last Admin: 11/21/18 09:27 Dose: 1 tab Albuterol Sulfate (Albuterol 2.5mg/3ml Neb Ud) 2.5 mg HHN Q2H PRN PRN Reason: Shortness of Breath Stop: 01/17/19 16:37 Albuterol/Ipratropium (Duoneb Neb) 3 ml HHN Q4HRT [facility] Stop: 01/17/19 18:59 Last Admin: 11/21/18 10:33 Dose: 3 ml Ascorbic Acid (Vitamin C) 500 mg GT Q12HR [facility] Stop: 01/17/19 20:59 Last Admin: 11/21/18 08:58 Dose: 500 mg Budesonide (Pulmicort) 0.5 mg HHN BIDRT [facility] Stop: 01/18/19 06:59 Last Admin: 11/21/18 07:10 Dose: 0.5 mg Carvedilol (Coreg) 6.25 mg GT Q12H [facility] Stop: 01/17/19 16:44 Last Admin: 11/21/18 04:36 Dose: 6.25 mg [place] Oil/[place]izen [place] Balsam/Trypsin (Venelex) 1 appl TP DAILY [facility] Stop: 01/19/19 08:59 Last Admin: 11/21/18 08:59 Dose: 1 appl Chlorhexidine Gluconate (Peridex) 15 ml MM BID [facility] Stop: 01/17/19 16:59 Last Admin: 11/21/18 08:59 Dose: 15 ml Diphenhydramine HCl (Benadryl) 25 mg GT Q8H PRN PRN Reason: Itching Stop: 01/17/19 16:37 Last Admin: 11/18/18 20:54 Dose: 25 mg Docusate Sodium (Colace) 200 mg GT Q12H PRN PRN Reason: Stool softener Dextrose/Sodium Chloride (D5-0.45ns) 1,000 mls @ 50 mls/hr IV .Q20H [facility] Stop: 01/17/19 08:51 Last Admin: 11/20/18 21:06 Dose: 50 mls/hr Colistimethate Sodium 150 mg/ (Sodium Chloride) 100 mls @ 100 mls/hr IV Q12HR [facility] Stop: 01/20/19 20:59 Lorazepam (Ativan) 1 mg IVP Q4HR PRN; Protocol PRN Reason: Agitation Stop: 01/17/19 03:19 Last Admin: 11/20/18 15:19 Dose: 1 mg Lorazepam (Ativan) 1 mg GT Q6H PRN; Protocol PRN Reason: Anxiety Stop: 01/17/19 16:37 Last Admin: 11/20/18 15:28 Dose: 1 mg Magnesium Hydroxide (Milk Of Magnesia) 30 ml GT DAILY [facility] Stop: 01/18/19 08:59 Last Admin: 11/21/18 08:58 Dose: 30 ml Magnesium Oxide (Mag-Oxide) 400 mg GT BID [facility] Stop: 01/17/19 16:59 Last Admin: 11/21/18 08:58 Dose: 400 mg Metoclopramide HCl (Reglan) 10 mg IVP Q8HR PRN PRN Reason: Abdominal Pain Stop: 01/17/19 08:47 Last Admin: 11/18/18 16:51 Dose: 10 mg Multivitamins/Minerals (Theragran M) 15 ml GT DAILY [facility] Stop: 01/18/19 08:59 Last Admin: 11/21/18 08:58 Dose: 15 ml Nystatin/Triamcinolone Acetonide (Mycolog Ii Cream) 1 appl TP BID [facility] Stop: 01/20/19 08:59 Last Admin: 11/21/18 09:51 Dose: 1 appl Pantoprazole Sodium (Protonix) 40 mg IVP DAILY [facility] Stop: 01/17/19 08:59 Last Admin: 11/21/18 08:58 Dose: 40 mg Zinc Sulfate (Zinc Sulfate) 220 mg GT DAILY [facility] Stop: 01/18/19 08:59 Last Admin: 11/21/18 08:58 Dose: 220 mg - Procedures Procedures: Procedures Procedure Code Date RESPIRATORY VENTILATION, LESS THAN 24 CONSECUTIVE HOURS [id number] 04/07/18 Assessment/Plan - Assessment Assessment: 58 YO FEMALE WITH UPPER ABD PAIN WHICH COULD BE DUE TO PNEUMONIA CT SHOWED ILEUS AND GT ALK PHOS ELEVATED WITH NORMAL GGT SUGGEST NON HEPATIC SOURCE VALERIA UNREMARKABLE 1.OFFERED PT EGD TO EVALUATE THE UPPER ABD PAIN AND SHE REFUSED; SHE UNDERSTANDS THAT FAILURE TO HAVE PROPER WORK UP COULD LEAD TO MISSED DIAGNOSIS, CANCER, CURE, TREATMENT OPPORTUNITY LEADING TO EARLY AND UNFORSEABLE DISABILITY 2.CONT PROTONIX 3.CONT SUPP CARE 4.WILL SEE NEEDED; CALL IF QUESTIONS
--- NOTE | 2018-11-21 14:06 | Diagnostic Imaging Report ---
Bilateral carotid Doppler ultrasound exam HISTORY: Syncope Sonographic sector images were obtained through the carotid bifurcation regions bilaterally. Associated Doppler data was obtained. The exam the right side demonstrates mild intimal thickening in the common carotid artery. No significant focal atherosclerotic plaque is seen. Antegrade vertebral artery flow. Velocities and flow ratios are normal (ICC/CCA equals 1.2). The exam of the left side demonstrates generalized intimal thickening through the common carotid artery. No significant focal plaque. Antegrade vertebral artery flow. Velocities and flow ratios are normal (ICC/CCA equals 0.8). IMPRESSION: 1. No evidence of hemodynamically significant atherosclerotic vascular disease
--- NOTE | 2018-11-21 18:43 | Progress Notes ---
DATE: 11/20/2018 SUBJECTIVE: The patient is in bed, awake, tracheostomy vent. Moving upper extremity and actually even moving lower extremity today more. No loss of consciousness. The patient has no seizures. OBJECTIVE: VITAL SIGNS: Temperature 98.5, blood pressure 114/75, pulse rate 85. NECK: Supple. No neck bruits. HEART: Sounds S1, S2. LUNGS: Clear. NEUROLOGIC: The patient is awake. The patient will follow instructions. She will squeeze with the right hand and left. Moving lower extremity somewhat more, but very . Reflexes 1. ASSESSMENT: 1. Loss of consciousness, syncope. 2. Respiratory failure, acute on chronic. 3. Dysphagia 4. Paraplegia. 5. Dementia. 6. Hypertension. 7. Asthma. DIAGNOSTIC DATA: The patient CT scan of the head, hypodense supratentorial consistent with small vessel disease. The patient's carotid Doppler is pending. PLAN: Carotid Doppler. JOB# [id number]
--- NOTE | 2018-11-21 19:16 | Internal Medicine Prog Note ---
Internal Medicine Subjective - Subjective Service Date: 11/21/18 Patient is:: awake, other (alert, lying in bed, on vent. via trach., will intertact with gestures) Per staff patient has:: tolerating meds Internal Medicine Objective - Results Result Diagrams: 11/20/18 05:50 11/20/18 05:50 Recent Labs: Laboratory Last Values WBC 5.7 Th/cmm (4.8-10.8) D 11/20/18 05:50 RBC 3.30 Mil/cmm (3.80-5.10) L 11/20/18 05:50 Hgb 10.3 gm/dL (12-16) L 11/20/18 05:50 Hct 30.4 % (41.0-60) L 11/20/18 05:50 MCV 92.2 fl (81-100) 11/20/18 05:50 MCH 31.2 pg (27.0-31.0) H 11/20/18 05:50 MCHC Differential 33.9 pg (28.0-36.0) 11/20/18 05:50 RDW 14.1 % (11.5-20.0) 11/20/18 05:50 Plt Count 352 Th/cmm (150-400) 11/20/18 05:50 MPV 7.4 fl 11/20/18 05:50 Add Manual Diff YES 11/19/18 08:18 Neutrophils % 70.0 % (40.0-80.0) 11/20/18 05:50 Band Neutrophils % 2 % (0-10) 11/19/18 08:18 Lymphocytes % 17.9 % (20.0-50.0) L 11/20/18 05:50 Monocytes % 8.4 % (2.0-10.0) 11/20/18 05:50 Eosinophils % 3.3 % (0.0-5.0) 11/20/18 05:50 Basophils % 0.4 % (0.0-2.0) 11/20/18 05:50 Neutrophils (Manual) 55 % (40-80) 11/19/18 08:18 Lymphocytes 28 % (20-50) 11/19/18 08:18 Monocytes 9 % (2-10) 11/19/18 08:18 Eosinophils 6 % (0-5) H 11/19/18 08:18 Basophils 0 % (0-3) 11/19/18 08:18 PT 11.4 SECONDS (9.5-11.5) 11/17/18 15:07 INR 1.11 (0.5-1.4) 11/17/18 15:07 Sodium 139 mEq/L (136-145) 11/20/18 05:50 Potassium 4.0 mEq/L (3.5-5.1) 11/20/18 05:50 Chloride 102 mEq/L (98-107) 11/20/18 05:50 Carbon Dioxide 29.6 mEq/L (21.0-31.0) 11/20/18 05:50 Anion Gap 11.4 (7.0-16.0) 11/20/18 05:50 BUN 18 mg/dL (7-25) 11/20/18 05:50 Creatinine 0.4 mg/dL (0.6-1.2) L 11/20/18 05:50 Est GFR ( Amer) > 60.0 ml/min (>90) 11/20/18 05:50 Est GFR (Non-Af Amer) > 60.0 ml/min 11/20/18 05:50 BUN/Creatinine Ratio 45.0 11/20/18 05:50 Glucose 97 mg/dL (70-105) 11/20/18 05:50 Calcium 9.5 mg/dL (8.6-10.3) 11/20/18 05:50 Total Bilirubin 0.3 mg/dL (0.3-1.0) 11/19/18 08:18 GGTP 24 IU/L (0-60) 11/18/18 09:06 AST 12 U/L (13-39) L 11/19/18 08:18 ALT 20 U/L (7-52) 11/19/18 08:18 Alkaline Phosphatase 130 U/L (34-104) H 11/19/18 08:18 Creatine Kinase 33 U/L (30-223) 11/17/18 15:07 Troponin I 0.01 ng/mL (0.01-0.05) 11/17/18 15:07 B-Natriuretic Peptide 73.4 pg/mL (5.0-100.0) 11/17/18 15:07 Total Protein 6.9 gm/dL (6.0-8.3) 11/19/18 08:18 Albumin 3.0 gm/dL (3.7-5.3) L 11/19/18 08:18 Globulin 3.9 gm/dL 11/19/18 08:18 Albumin/Globulin Ratio 0.8 (1.0-1.8) L 11/19/18 08:18 Triglycerides 152 mg/dL (<150) H 11/17/18 15:07 Cholesterol 106 mg/dL (<200) 11/17/18 15:07 LDL Cholesterol Direct 68 mg/dL (75-193) L 11/17/18 15:07 HDL Cholesterol 21 mg/dL (23-92) L 11/17/18 15:07 Amylase 11 U/L (29-103) L 11/18/18 09:06 Lipase 12 U/L (11-82) 11/18/18 09:06 Urine Source [place] 11/19/18 04:00 Urine Color YELLOW 11/19/18 04:00 Urine Clarity CLEAR (CLEAR) 11/19/18 04:00 Urine pH 8.0 (4.6 - 8.0) 11/19/18 04:00 Ur Specific [place] 1.010 (1.005-1.030) 11/19/18 04:00 Urine Protein NEGATIVE mg/dL (NEGATIVE) 11/19/18 04:00 Urine Glucose (UA) NEGATIVE mg/dL (NEGATIVE) 11/19/18 04:00 Urine Ketones NEGATIVE mg/dL (NEGATIVE) 11/19/18 04:00 Urine Blood TRACE (NEGATIVE) 11/19/18 04:00 Urine Nitrate NEGATIVE (NEGATIVE) 11/19/18 04:00 Urine Bilirubin NEGATIVE (NEGATIVE) 11/19/18 04:00 Urine Urobilinogen 1.0 E.U./dL (0.2 - 1.0) 11/19/18 04:00 Ur Leukocyte Esterase NEGATIVE (NEGATIVE) 11/19/18 04:00 Urine RBC 0-2 /hpf (0-5) 11/19/18 04:00 Urine WBC 0-2 /hpf (0-5) 11/19/18 04:00 Ur Epithelial Cells RARE /lpf (FEW) 11/19/18 04:00 Other Crystals MODERATE /hpf 11/19/18 04:00 Urine Bacteria NONE SEEN /hpf (NONE SEEN) 11/19/18 04:00 Other Casts /LPF (NONE SEEN) 11/19/18 04:00 - Physical Exam Vitals and I&O: Vital Signs Temp 97.9 F 11/21/18 16:36 Pulse 65 11/21/18 16:36 Resp 18 11/21/18 16:36 BP 105/68 11/21/18 16:36 Pulse Ox 99 11/21/18 16:36 Intake & Output 11/21/18 11/21/18 11/22/18 06:59 18:59 06:59 Intake Total 4476.399 4337 Output Total 600 800 Balance 841.667 200 Weight (lbs) 97 lb 3.2 oz 97 lb 3.2 oz Intake: Intake, IV Amount 941.667 D5-0.45NS 1,000 ml @ 50 941.667 mls/hr IV .Q20H [facility] Rx#: [id number] Tube Feeding 500 600 Other 400 Output: Urine 600 800 Other: # Bowel Movements 0 2 Stool Characteristics Soft Formed Weight Source Bedscale Bedscale Active Medications: Current Medications Acetaminophen/Hydrocodone Bitart ([place] 10 Mg/325 Mg) 1 tab GT Q6H PRN PRN Reason: Pain (Moderate) Stop: 01/17/19 16:37 Last Admin: 11/21/18 09:27 Dose: 1 tab Albuterol Sulfate (Albuterol 2.5mg/3ml Neb Ud) 2.5 mg HHN Q2H PRN PRN Reason: Shortness of Breath Stop: 01/17/19 16:37 Albuterol/Ipratropium (Duoneb Neb) 3 ml HHN Q4HRT [facility] Stop: 01/17/19 18:59 Last Admin: 11/21/18 14:57 Dose: 3 ml Ascorbic Acid (Vitamin C) 500 mg GT Q12HR [facility] Stop: 01/17/19 20:59 Last Admin: 11/21/18 08:58 Dose: 500 mg Budesonide (Pulmicort) 0.5 mg HHN BIDRT [facility] Stop: 01/18/19 06:59 Last Admin: 11/21/18 07:10 Dose: 0.5 mg Carvedilol (Coreg) 6.25 mg GT Q12H [facility] Stop: 01/17/19 16:44 Last Admin: 11/21/18 16:19 Dose: Not Given [place] Oil/[place] Balsam/Trypsin (Venelex) 1 appl TP DAILY [facility] Stop: 01/19/19 08:59 Last Admin: 11/21/18 08:59 Dose: 1 appl Chlorhexidine Gluconate (Peridex) 15 ml MM BID [facility] Stop: 01/17/19 16:59 Last Admin: 11/21/18 16:59 Dose: 15 ml Diphenhydramine HCl (Benadryl) 25 mg GT Q8H PRN PRN Reason: Itching Stop: 01/17/19 16:37 Last Admin: 11/18/18 20:54 Dose: 25 mg Docusate Sodium (Colace) 200 mg GT Q12H PRN PRN Reason: Stool softener Dextrose/Sodium Chloride (D5-0.45ns) 1,000 mls @ 50 mls/hr IV .Q20H [facility] Stop: 01/17/19 08:51 Last Admin: 11/20/18 21:06 Dose: 50 mls/hr Meropenem 1 gm/ Sodium (Chloride) 100 mls @ 100 mls/hr IV Q8H [facility] Stop: 01/20/19 20:59 Lorazepam (Ativan) 1 mg IVP Q4HR PRN; Protocol PRN Reason: Agitation Stop: 01/17/19 03:19 Last Admin: 11/21/18 16:58 Dose: 1 mg Lorazepam (Ativan) 1 mg GT Q6H PRN; Protocol PRN Reason: Anxiety Stop: 01/17/19 16:37 Last Admin: 11/21/18 17:52 Dose: 1 mg Magnesium Hydroxide (Milk Of Magnesia) 30 ml GT DAILY [facility] Stop: 01/18/19 08:59 Last Admin: 11/21/18 08:58 Dose: 30 ml Magnesium Oxide (Mag-Oxide) 400 mg GT BID [facility] Stop: 01/17/19 16:59 Last Admin: 11/21/18 16:59 Dose: 400 mg Metoclopramide HCl (Reglan) 10 mg IVP Q8HR PRN PRN Reason: Abdominal Pain Stop: 01/17/19 08:47 Last Admin: 11/18/18 16:51 Dose: 10 mg Multivitamins/Minerals (Theragran M) 15 ml GT DAILY [facility] Stop: 01/18/19 08:59 Last Admin: 11/21/18 08:58 Dose: 15 ml Nystatin/Triamcinolone Acetonide (Mycolog Ii Cream) 1 appl TP BID [facility] Stop: 01/20/19 08:59 Last Admin: 11/21/18 16:59 Dose: 1 appl Pantoprazole Sodium (Protonix) 40 mg IVP DAILY [facility] Stop: 01/17/19 08:59 Last Admin: 11/21/18 08:58 Dose: 40 mg Zinc Sulfate (Zinc Sulfate) 220 mg GT DAILY [facility] Stop: 01/18/19 08:59 Last Admin: 11/21/18 08:58 Dose: 220 mg General: weak, alert HEENT: NC/AT, PERRLA Neck: + trach Lungs: ronchi Cardiovascular: RRR, Normal S1, Normal S2 Abdomen: soft, non-tender, non-distended Extremities: excoriation - Procedures Procedures: Procedures Procedure Code Date RESPIRATORY VENTILATION, LESS THAN 24 CONSECUTIVE HOURS [id number] 04/07/18 Internal Medicine Assmt/Plan - Assessment Assessment: acute on chronic resp failure copd acute uti hx cva hx fall - Plan Plan: may need ltac eval will follow pulm/ID am labs Nutritional Asmnt/Malnutr-PDOC - Dietary Evaluation Malnutrition Findings (Please click <Entered> for more info): Nutritional Asmnt/Malnutrition Start: 11/18/18 14: 42 Text: Status: Complete Freq: Protocol: Document 11/18/18 14:43 [email or web address] (Rec: 11/18/18 15:03 [email or web address]) Nutritional Asmnt/Malnutrition Patient General Information Nutritional Screening High Risk Consult Diagnosis syncope/fall Pertinent Medical Hx/Surgical Hx HTN, asthma/COPD, dyslipidemia , arthritis, dementia, tracheostomy Subjective Information 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 Pt was seen in bed at time of visit, trach to vent. Jevity 1.2 was running at 54ml/hr. Pt appeared fat and muscle wasting. Current Diet Order/ Nutrition Support jevity 1.2 54ml/hr x 20hrs, providing 1296kcal and 60g protein Pertinent Medications d5-0.45ns, reglan, protonix Pertinent Labs 11/17 cr 0.5, alb 3.3, triglycerides 152, LDL 68, HDL 21 Nutritional Hx/Data Height 5 ft 4 in Height (Calculated Centimeters) 162.6 Current Weight (lbs) 96 lb Weight (Calculated Kilograms) 43.5 Weight (Calculated Grams) 86224.9 [place] Body Weight 120 Body Mass Index (BMI) 16.5 Weight Status Underweight GI Symptoms GI Symptoms None Last BM not indicated Difficult in: None Food Allergies No Usual diet at home per pt chart, Jevity 1.5 at 54 ml/hr for 20hr to provide 1620kcal/day at care facility Skin Integrity/Comment: rash to left hand, reddened left foot, discoloration to lower legs, ulceration to coccyx Estimated Nutritional Goals BEE in Kcals: Using Current wt Calories/Kcals/Kg 30-35 Kcals Calculated 8494-6336 Protein: Using Current wt Protein g/k.2-1.4 Protein Calculated 52-61 Fluid: ml 1600-7879 (1ml/kcal) Nutritional Problem 2. Problem Problem increased energy needs Etiology muscle wasting and wound healing Signs/Symptoms: BMI 16.5, stage 4 coccyx wound 1. Problem Problem inadequate energy/protein intake Etiology increased metabolic demand for wound healing Signs/Symptoms: stage 4 coccyx wound Malnutrition Alert Body Fat Depletion (Severe) Mod to Severe Depletion Muscle Mass (Severe) Mod to Severe Depletion Is there a minimum of two criteria Yes selected? Query Text:Check all the applicable criteria. A minimum of two criteria are recommended for diagnosis of either severe or non-severe malnutrition. Malnutrition Related to Morbid Obesity Malnutrition related to morbid obesity No Intervention/Recommendation Comments 1. Recommend Jevity 1.2 at 54ml/hr continuous, providing 1555kcal, 72g protein, 1045ml free water, meeting 100% of nutritional needs. Tried to reach RN about the TF recommendaction but not available at this time. Will follow up again. 2. Monitor TF rate, tolerance, wt, skin integrity and labs 3. F/U as high risk in 2-3 days Expected Outcomes/Goals Expected Outcomes/Goals 1. Pt to meet at least 90% of nutritional needs via nutrition support 2. Wt stability, skin to remain intact, labs to approach WNL. Reviewed by Tiffanie Guaman RD
[2018-11-21] MEDS ORDERED: Meropenem 1 GM in Sodium Chloride 0.9% 100 ML IV SCH (21:00)
--- NOTE | 2018-11-25 17:24 | Discharge Summary ---
DATE OF DISCHARGE: 11/21/2018 HISTORY AND HOSPITAL COURSE: The patient was admitted on 11/17/2018 and the patient was discharged 11/21/2018 and is to continue with ____. The patient is very well known to me. The patient is status post trach and PEG. Apparently, the patient had episodes of desaturation, also history of several falls, syncopal episodes and for those reasons, she was admitted at [facility] and the patient had a CAT scan, was seen by Dr. Kimball and seen by Pulmonary doctor, Dr. Mayes and ID doctor. The patient was given antibiotics and the patient was observed. CAT scan negative. Neurologically, the patient improved. The patient with the final diagnoses of: 1. Syncopal episode, etiology weakness. 2. History of hypertension, asthma, chronic obstructive pulmonary disease, arthritis, dementia, hyperlipidemia, status post trach ____. The patient was in stable condition on 11/21/2017 and the patient was discharged to ____ where I will follow the patient. MEDICATIONS: See the reconciliation sheet. ACTIVITY: As tolerated. ____. JOB# [id number]
== END 2018-11-21 19:43 | DRG 871 ==
LOC: ER 14:48 → MSI 18:00 → TELE 18:41
PROVIDERS: ADMIT Internal Medicine; ATTEND Internal Medicine
DX: A41.9 Sepsis, unspecified organism (principal); J18.9 Pneumonia, unspecified organism; L89.154 Pressure ulcer of sacral region, stage 4; E41 Nutritional marasmus; J96.20 Acute and chronic respiratory failure, unspecified whether with hypoxia or hypercapnia; R53.2 Functional quadriplegia; E46 Unspecified protein-calorie malnutrition; Z68.1 Body mass index [BMI] 19.9 or less, adult; J44.0 Chronic obstructive pulmonary disease with (acute) lower respiratory infection; K56.7 Ileus, unspecified; N39.0 Urinary tract infection, site not specified; R13.10 Dysphagia, unspecified; F03.90 Unspecified dementia, unspecified severity, without behavioral disturbance, psychotic disturbance, mood disturbance, and anxiety; R53.1 Weakness; W18.30XA Fall on same level, unspecified, initial encounter; I10 Essential (primary) hypertension; E78.5 Hyperlipidemia, unspecified; M19.90 Unspecified osteoarthritis, unspecified site; J32.9 Chronic sinusitis, unspecified; D64.9 Anemia, unspecified; J20.9 Acute bronchitis, unspecified; I25.10 Atherosclerotic heart disease of native coronary artery without angina pectoris; K21.9 Gastro-esophageal reflux disease without esophagitis; Y93.89 Activity, other specified; Y92.89 Other specified places as the place of occurrence of the external cause; Y99.8 Other external cause status; Z82.49 Family history of ischemic heart disease and other diseases of the circulatory system; Z93.0 Tracheostomy status; Z83.3 Family history of diabetes mellitus
CPT/HCPCS: 36415-UA; 70450-TC; 71045-TC; 72125-TC; 74000-TC; 76700-TC; 80048-TC; 80053-TC; 80061-TC; 81001-TC; 82150-TC; 82550-TC; 82977-90; 83690-TC; 83880-TC; 84484-TC; 85007-TC; 85025-TC; 85610-TC; 87070; 87086-90; 93005; 93880-TC; 94640; 94760; C9113; J0696; J0770; J2060; J2185; J2765; Q9967; Z7610

== ENCOUNTER 2019-01-23 01:14 | Inpatient (IN) | payer MEDICARE, MEDICAID ==
[2019-01-23 02:08] LABS: % EOSINOPHILS 4.7 % (0.0-5.0); % LYMPHOCYTES 25.6 % (20.0-50.0); % MONOCYTES 7.1 % (2.0-10.0); % NEUTROPHILS 61.6 % (40.0-80.0); EOSINOPHILE ABSOLUTE 0.2 Th/cmm (0.1-0.4); HEMATOCRIT 24.2 % (41.0-60); HEMOGLOBIN 8.1 gm/dL (12-16); LYMPHOCYTE ABSOLUTE 0.9 Th/cmm (1.5-3.0); MEAN CELL VOLUME 95.3 fl (81-100); MEAN CORPUSCULAR HEMOGLOBIN 31.8 pg (27.0-31.0); MEAN CORPUSCULAR HGB CONC 33.3 pg (28.0-36.0); MEAN PLATELET VOLUME 7.4 fl; MONOCYTE ABSOLUTE 0.3 Th/cmm (0.3-1.0); NEUTROPHILE ABSOLUTE 2.2 Th/cmm (1.8-8.0); PLATELET COUNT 229 Th/cmm (150-400); RED BLOOD COUNT 2.54 Mil/cmm (3.80-5.10); RED CELL DISTRIBUTION WIDTH 15.6 % (11.5-20.0)
[2019-01-23 02:12] LABS: WHITE BLOOD COUNT 3.6 Th/cmm (4.8-10.8)
[2019-01-23 02:21] LABS: INR 0.97 (0.5-1.4); PROTHROMBIN TIME (TEST) 10.1 SECONDS (9.5-11.5)
--- NOTE | 2019-01-23 02:22 | ED Physician Chart ---
ED Chief Complaint/HPI - Patient Information Date Seen:: 01/23/19 Time Seen:: 01:15 Chief Complaint:: Fall History of Present Illness:: onset x one hour [employer] of syncope resulting in a fall; no report of H/As, neck pain, C/P, SOB, Abd. Pain, A/N/V/D/C, fever, chills, or urinary s/s; pt's last tetanus shot: > 5 years Allergies:: Allergies Allergy/AdvReac Type Severity Reaction Status Date / Time No Known Allergies Allergy Verified 01/02/19 13:30 Vitals:: Vital Signs - 8 hr 01/23/19 01:14 Temp 98.2 F HR 75 RR 18 BP 146/85 O2 Sat % 98 Historian:: Patient, EMS Review:: Old Chart Reviewed, EMS run form Reviewed ED Review of Systems - Review of Systems General/Constitutional: No fever, No chills, No weight loss, No weakness, No diaphoresis, No edema, No loss of appetite Skin: No skin lesions, No rash, No bruising Head: No headache, No light-headedness Eyes: No loss of vision, No pain, No diplopia ENT: No earache, No nasal drainage, No sore throat, No tinnitus Neck: No neck pain, No swelling, No thyromegaly, No stiffness, No mass noted Cardio Vascular: No chest pain, No palpitations, No PND, No orthopnea, No edema Pulmonary: No SOB, No cough, No sputum, No wheezing GI: No nausea, No vomiting, No diarrhea, No pain, No melena, No hematochezia, No constipation, No hematemesis G/U: No dysuria, No frequency, No hematuria, No nacturia Web Producer: No vaginal discharge, No abnormal vaginal bleed, No contraction Musculoskeletal: No bone or joint pain, No back pain, No muscle pain Endocrine: No polyuria, No polydipsia Psychiatric: No prior psych history, No depression, No anxiety, No suicidal ideation, No homicidal ideation, No auditory hallucination, No visual hallucination Hematopoietic: No bruising, No lymphadenopathy Allergic/Immuno: No urticaria, No angioedema Neurological: Syncope, No focal symptoms, Weakness, No paresthesia, No headache , No seizure, Dizziness, Confusion, Vertigo ED Past Medical History - Past Medical History Obtainable: Yes Past Medical History: HTN, DM, CAD, Asthma/COPD, Dyslipidemia, PUD/GERD Family History: Diabetes Melitus, HTN Social History: Non Smoker, No Alcohol, No Drug Use, Single, Care Facility Surgical History: PEG/GTube Psychiatricy History: None Medication: Reviewed Family Medical History - Family Member Mother History Unknown: Yes Ethnicity: Unknown Living Status: Unknown Hx Family Cancer: No Hx Family Coronary Artery Disease: No Hx Family Congestive Heart Failure: No Hx Family Hypertension: Yes Hx Family Stroke: No Hx Family Diabetes: Yes Hx Family Seizures: No Hx Family Dementia: No Hx Family AIDS: No Hx Family HIV: No Hx Family COPD: No Hx Family Hepatitis: No Hx Family Psychiatric Problems: No Hx Family Tuberculosis: No ED Physical Exam - Physical Examination General/Constitutional: Awake, Well-developed, well-nourished, Alert, No distress, GCS 15, Non-toxic appearing, Ambulatory Head: Atraumatic Eyes: Lids, conjuctiva normal, PERRL, EOMI Skin: Nl inspection, No rash, No skin lesions, No ecchymosis, Well hydrated, No lymphadenopathy Other Skin comments:: scattered contusions and abrasions; no FBs; + Ulcers ENMT: External ears, nose nl, TM canals nl, Nasal exam nl, Lips, teeth, gums nl , Oropharynx nl, Tonsils nl Neck: Nontender, Full ROM w/o pain, No JVD, No nuchal rigidity, No bruit, No mass, No stridor Other Neck comments:: supple; no meningeal signs; no cervical tenderness; no bruits Respiratory: Nl effort/Exclusion, Clear to Auscultation, No Wheeze/Rhonchi/Rales Cardio Vascular: RRR, No murmur, gallop, rubs, NL S1 S2, Carotid/Femoral/Distal pulses equal bilaterally GI: No tenderness/rebounding/guarding, No organomegaly, No hernia, Normal BS's, Nondistended, No mass/bruits, No McBurney tenderness Other GI comments:: no pulsatile masses : No CVA tenderness Extremities: No tenderness or effusion, Full ROM, normal strength in all extremities, No edema, Normal digits & nails Neuro/Psych: Alert/oriented, DTR's symmetric, Normal sensory exam, Normal motor strength, Judgement/insight normal, Mood normal, Normal gait, No focal deficits Misc: Normal back, No paraspinal tenderness ED Labs/Radiology/EKG Results - Lab Results Results: Laboratory Tests 01/23/19 02:00 WBC 3.6 L RBC 2.54 L Hgb 8.1 L Hct 24.2 L MCV 95.3 MCH 31.8 H MCHC Differential 33.3 RDW 15.6 Plt Count 229 MPV 7.4 Neutrophils % 61.6 Lymphocytes % 25.6 Monocytes % 7.1 Eosinophils % 4.7 Basophils % 1.0 Comments:: Reviewed - Radiology Results Comments:: NAD - EKG Interpretations EKG Time:: 02:07 Rate & Rhythm: 68; JR Comments:: non-specific st-t changes ED Septic Shock - . Is Septic Shock (SBP<90, OR Lactate>4 mmol\L) present?: No - <6hrs of presentation: Vital Signs: Vital Signs - 8 hr 01/23/19 01:14 Temp 98.2 F HR 75 RR 18 BP 146/85 O2 Sat % 98 ED Reassessment (Disposition) - Reassessment Reassessment Condition:: Improved - Diagnosis Diagnosis:: Leukopenia; Anemia; Fall; Syncope; HTN; DM; Contusions; Abrasions; Ulcers
[2019-01-23 02:24] LABS: ALB/GLOB RATIO 0.8 (1.0-1.8); ALBUMIN 2.9 gm/dL (3.7-5.3); ALKALINE PHOSPHATASE 135 U/L (34-104); ANION GAP 11.8 (7.0-16.0); BILIRUBIN,TOTAL 0.4 mg/dL (0.3-1.0); BUN - UREA NITROGEN 15 mg/dL (7-25); CALCIUM SERUM 8.9 mg/dL (8.6-10.3); CARBON DIOXIDE 28.2 mEq/L (21.0-31.0); CHLORIDE 102 mEq/L (98-107); CHOLESTEROL 107 mg/dL (<200); CREATININE - SERUM 0.4 mg/dL (0.6-1.2); CREATININE KINASE 36 U/L (30-223); GFR AFRICAN-AMERICAN > 60.0 ml/min (>90); GFR NON AFRICAN-AMERICAN > 60.0 ml/min; GLUCOSE 73 mg/dL (70-105); HDL -HIGH DENSITY LIPOPROTEIN 29 mg/dL (23-92); SGOT 18 U/L (13-39); SGPT/ALT 40 U/L (7-52); SODIUM SERUM 138 mEq/L (136-145); TOTAL PROTEIN,SERUM 6.5 gm/dL (6.0-8.3); TRIGLYCERIDES 120 mg/dL (<150)
[2019-01-23 04:06] LABS: URINE SOURCE CATH
[2019-01-23 04:07] LABS: URINE BILIRUBIN NEGATIVE (NEGATIVE); URINE BLOOD NEGATIVE (NEGATIVE); URINE GLUCOSE (UA) NEGATIVE (NEGATIVE); URINE KETONE NEGATIVE (NEGATIVE); URINE LEUKOCYTE ESTERASE NEGATIVE (NEGATIVE); URINE NITRATE NEGATIVE (NEGATIVE); URINE PROTEIN NEGATIVE (NEGATIVE); URINE UROBILINOGEN 0.2 E.U./dL (0.2 - 1.0)
[2019-01-23 04:17] LABS: URINE CLARITY CLEAR (CLEAR); URINE COLOR YELLOW; URINE MICROSCOPIC INDICATED? NO
--- NOTE | 2019-01-23 09:00 | Diagnostic Imaging Report ---
Exam: Portable chest x-ray HISTORY: Status post fall Portable supine examination of chest at the 0 350 reviewed. The study demonstrates no acute pulmonic infiltrates or effusions. Left-sided PICC line terminates in left axillary vein. Mediastinal structures midline the aortic arch calcified. IMPRESSION: No acute disease.
--- NOTE | 2019-01-23 09:52 | Diagnostic Imaging Report ---
Exam: CT examination of brain. HISTORY: Status post fall Total DLP equals 611 CTDI equals 31.7 Findings: Multiple contiguous thin section of brain were obtained from the base of skull to the vertex without administration of contrast material, correlated with the prior exam of 11/17/2018. The study demonstrates again atrophy with periventricular ischemic white matter changes of long-standing etiology. The findings are more prominent the patient's age group. There is no evidence for hemorrhage midline shift or edema. Opacification mastoid air cells Mild mucosal thickening max is sinuses and left sphenoid sinus. Atherosclerotic vascular calcifications. IMPRESSION: Atrophy, particularly ischemic white changes The findings unchanged upper prior examination 11/17/2018.
--- NOTE | 2019-01-23 09:57 | Diagnostic Imaging Report ---
Exam: Right shoulder joint HISTORY: Pain Findings: Multiple views of right shoulder joint demonstrate no evidence of fracture dislocation. Acromioclavicular joint is intact . IMPRESSION: unremarkable examination right shoulder joint.
--- NOTE | 2019-01-23 09:58 | Diagnostic Imaging Report ---
Exam: Left shoulder joint HISTORY: Pain Findings: Multiple views of left shoulder joint demonstrate no evidence for acute fracture dislocation. Acromion clinically joint is intact. IMPRESSION: Essentially unremarkable examination left shoulder joint.
--- NOTE | 2019-01-23 10:03 | Diagnostic Imaging Report ---
Pelvis (single view) HISTORY: Pain No acute abnormalities are seen. No definite fractures. Hip joints appear normal. The femoral heads are seen normal contours. Degenerative changes noted in the lower lumbar spine. IMPRESSION: 1. Limited exam associated with a single view 2. No definite acute abnormalities
[2019-01-23] MEDS: Azithromycin 500 MG in Sodium Chloride 0.9% 250 ML IV SCH (10:13)
--- NOTE | 2019-01-23 10:25 | Diagnostic Imaging Report ---
CT scan cervical spine HISTORY: Pain, trauma Total DLP equals 330 CTDI equals 22.0 Axial sections are obtained to the cervical spine. Additional sagittal and coronal reformatted images are provided. Exam is limited due to patient motion artifact. There are degenerative changes with hypertrophic spur formation noted about the endplates of all vertebrae. Findings most pronounced at C5-6 and C6-7. Narrowing of the C5-6 and C6-7 interspaces. No acute abnormalities. No fractures identified. Surgical clips noted in the anterior soft tissues of the neck. There is deformity of the airway. IMPRESSION: 1. No acute bony abnormalities 2. Degenerative changes 3. Surgical changes and marked deformity about the airway with
[2019-01-23] MEDS: cefTRIAXone 1 GM in Sodium Chloride 0.9% 50 ML IV SCH (10:43)
[2019-01-23] MEDS ORDERED: Docusate Sodium 100 mg/10 mL UD GT PRN (13:10)
[2019-01-23] MEDS ORDERED: Fleet Enema 135 mL RC PRN (13:10)
[2019-01-23] MEDS ORDERED: GLUCAGON HCl 1 MG KIT IM PRN (13:10)
[2019-01-23] MEDS ORDERED: Magnesium Hydroxide (MOM) 30 mL UDC GT PRN (13:10)
[2019-01-23] MEDS ORDERED: Maalox 30 mL Cup GT PRN (13:10)
[2019-01-23] MEDS ORDERED: Albuterol Nebulizer 2.5mg/3mL HHN PRN (13:10)
--- NOTE | 2019-01-23 13:34 | History & Physical ---
ADMIT DATE: 01/23/2019 COVERING FOR: Dr. Kearns. CHIEF COMPLAINT: Status post fall. HISTORY OF PRESENT ILLNESS: This is a 58-year-old female who is a prison resident, admitted to the telemetry unit due to status post fall. No reports of any fevers at the prison. The patient was just recently discharged from this hospital. PAST MEDICAL HISTORY: Chronic respiratory failure, hypertension, diabetes, CAD, COPD, dyslipidemia, GERD. FAMILY HISTORY: Noncontributory. SOCIAL HISTORY: The patient is a subacute resident, requiring 24-hour nursing care. PAST SURGICAL HISTORY: PEG and tracheostomy. MEDICATIONS: See medication list. REVIEW OF SYSTEMS: Reviewed. PHYSICAL EXAMINATION: GENERAL: Thin female, awake, alert, no apparent distress. VITAL SIGNS: Temperature 99.2, heart rate 60, blood pressure 126/79, respirations 22. HEENT: Head is normocephalic, atraumatic. NECK: Old tracheostomy site in place. HEART: Regular rate and rhythm. No murmurs, no gallops. ABDOMEN: Soft, nontender, nondistended. LABORATORY DATA: WBC 3.6, H and H 8.1 and 24.2, platelets of 229. Sodium 138, potassium 4.2, chloride 102, BUN 15, creatinine 0.4. DIAGNOSTIC STUDIES: The patient had a shoulder x-ray; impression is no acute fractures. ASSESSMENT: Status post fall; possible syncope; acute respiratory failure, currently stable, status post decannulation; hypertension; diabetes; coronary artery disease; asthma; chronic obstructive pulmonary disease; dyslipidemia; gastroesophageal reflux disease. PLAN: The patient to be admitted to the telemetry unit. We will get ID and pulmonology consult. Treat the patient with IV Zithromax and vancomycin as per ID. AM labs will be ordered. We will continue to monitor this patient. JOB# [id number]
[2019-01-23] MEDS: Albuterol Nebulizer 2.5mg/3mL HHN SCH ×2 (15:29→20:26)
[2019-01-23] MEDS ORDERED: MAGNESIUM OXIDE 400 MG GT SCH (17:00)
[2019-01-23] MEDS: Budesonide 0.5 Mg/2 mL Ud HHN SCH (20:26)
[2019-01-23] MEDS: INSULIN LISPRO SLIDING SCALE 100 UNITS/ML UNIT SUBQ SCH (21:56)
--- NOTE | 2019-01-24 04:50 | Consultation ---
DATE OF CONSULTATION: 01/23/2019 INFECTIOUS DISEASE CONSULTATION REFERRING PHYSICIAN: Dr. Kearns. REASON FOR CONSULTATION: Management of lumbar osteomyelitis SVA. HISTORY OF PRESENT ILLNESS: The patient is a 58-year-old with past medical history of dementia, dysphagia, protein-calorie malnutrition, failure to thrive, history of pneumonitis, throat cancer, anemia, ____ recently admitted for G-tube placement. During the admission for CT scan of the abdomen and pelvis revealed lumbar osteomyelitis and diskitis. MRI of the head confirmed osteomyelitis of the lumbar spine. The patient was also found to have blood culture growing MRSA. The patient was discharged on Vancomycin IV. The patient comes back in with a syncopal episode today and admitted to the hospital. On initial evaluation, the patient's temperature was 98.2 degree Fahrenheit. Blood cultures are done. The patient is ____. SOCIAL HISTORY: The patient will start vancomycin, Rocephin and Zithromax. ALLERGIES: NKDA. MEDICATIONS: As per medication reconciliation sheet. Antibiotic feliciano, the patient is on Rocephin, and azithromycin. REVIEW OF SYSTEMS: The patient is a poor historian. No fever. PHYSICAL EXAMINATION: VITAL SIGNS: Shows temperature is 98.2, pulse 60, respiration 22, and blood pressure 126/79. GENERAL: The patient is comfortable, cachectic. HEENT: Head is normocephalic, atraumatic. Oral cavity moist, pink tongue. NECK: Supple. No JVD, no bruit. Trachea midline. CHEST: Bilateral breath sounds. No crackles or wheezing. HEART: S1, S2 within normal limits. Regular rhythm. No murmur, no gallop. ABDOMEN: Soft, nontender, nondistended. Bowel sounds present. EXTREMITIES: No cyanosis, no clubbing, no edema. NEUROLOGIC: Alert, awake. LABORATORY DATA: Current lab shows WBC count is 3600, hemoglobin 8.1, hematocrit 34.2, platelets are 229,000, neutrophils 61.6%. Sodium 138, potassium 4.1, chloride 102, bicarbonate is 28, BUN is 15, creatinine 0.4. IMPRESSION: 1. Vertebral lumbar osteomyelitis, diskitis. 2. Vertebral osteomyelitis with diskitis. 3. Fecal impaction. 4. Syncope. 5. Consider neurological consultation. RECOMMENDATIONS: Continue vancomycin IV for 6 weeks total. Blood cultures. Thank you, Dr. Kearns for involving me in taking care of this patient. JOB# [id number]
[2019-01-24 06:36] LABS: % BASOPHILS 1.1 % (0.0-2.0); % EOSINOPHILS 3.8 % (0.0-5.0); % LYMPHOCYTES 34.8 % (20.0-50.0); % MONOCYTES 7.3 % (2.0-10.0); EOSINOPHILE ABSOLUTE 0.1 Th/cmm (0.1-0.4); HEMATOCRIT 29.8 % (41.0-60); HEMOGLOBIN 9.9 gm/dL (12-16); LYMPHOCYTE ABSOLUTE 1.2 Th/cmm (1.5-3.0); MEAN CELL VOLUME 95.1 fl (81-100); MEAN CORPUSCULAR HEMOGLOBIN 31.5 pg (27.0-31.0); MEAN CORPUSCULAR HGB CONC 33.1 pg (28.0-36.0); MEAN PLATELET VOLUME 7.5 fl; MONOCYTE ABSOLUTE 0.2 Th/cmm (0.3-1.0); NEUTROPHILE ABSOLUTE 1.9 Th/cmm (1.8-8.0); PLATELET COUNT 250 Th/cmm (150-400); RED BLOOD COUNT 3.14 Mil/cmm (3.80-5.10); RED CELL DISTRIBUTION WIDTH 15.3 % (11.5-20.0)
[2019-01-24 06:51] LABS: ANION GAP 10.7 (7.0-16.0); BUN - UREA NITROGEN 17 mg/dL (7-25); CALCIUM SERUM 9.4 mg/dL (8.6-10.3); CARBON DIOXIDE 28.6 mEq/L (21.0-31.0); CHLORIDE 104 mEq/L (98-107); CREATININE - SERUM 0.4 mg/dL (0.6-1.2); GFR AFRICAN-AMERICAN > 60.0 ml/min (>90); GFR NON AFRICAN-AMERICAN > 60.0 ml/min; GLUCOSE 99 mg/dL (70-105); POTASSIUM SERUM 4.3 mEq/L (3.5-5.1); SODIUM SERUM 139 mEq/L (136-145)
[2019-01-24 07:24] LABS: WHITE BLOOD COUNT 3.4 Th/cmm (4.8-10.8)
[2019-01-24] MEDS: Albuterol Nebulizer 2.5mg/3mL HHN SCH ×4 (07:48→19:21)
[2019-01-24] MEDS: Budesonide 0.5 Mg/2 mL Ud HHN SCH ×3 (07:48→19:21)
[2019-01-24] MEDS: Multivitamin w/ Minerals Tab GT SCH (08:47)
[2019-01-24] MEDS: Lactobacillus Rhamnosus GG 15 Billion CFU CAP.SPRINK PO SCH (08:47)
[2019-01-24] MEDS: Ferrous Sulfate 325 MG TAB PO SCH (08:47)
[2019-01-24] MEDS: cefTRIAXone 1 GM in Sodium Chloride 0.9% 50 ML IV SCH (08:47)
[2019-01-24] MEDS: Venelex 60gm Tube TP SCH (09:12)
[2019-01-24] MEDS: INSULIN LISPRO SLIDING SCALE 100 UNITS/ML UNIT SUBQ SCH ×2 (09:13→21:29)
[2019-01-24] MEDS: Azithromycin 500 MG in Sodium Chloride 0.9% 250 ML IV SCH (09:50)
--- NOTE | 2019-01-24 12:14 | Internal Medicine Prog Note ---
Internal Medicine Subjective - Subjective Service Date: 01/24/19 Patient seen and examined:: with staff, chart reviewed Patient is:: awake, talking, other (S/p Fall.) Patient Complaints of:: other (respiratory failure, stable, s/p decannulation.) Per staff patient has:: no adverse event Internal Medicine Objective - Results Result Diagrams: 01/24/19 06:10 01/24/19 06:10 Recent Labs: Laboratory Last Values WBC 3.4 Th/cmm (4.8-10.8) L 01/24/19 06:10 RBC 3.14 Mil/cmm (3.80-5.10) L 01/24/19 06:10 Hgb 9.9 gm/dL (12-16) L 01/24/19 06:10 Hct 29.8 % (41.0-60) L 01/24/19 06:10 MCV 95.1 fl (81-100) 01/24/19 06:10 MCH 31.5 pg (27.0-31.0) H 01/24/19 06:10 MCHC Differential 33.1 pg (28.0-36.0) 01/24/19 06:10 RDW 15.3 % (11.5-20.0) 01/24/19 06:10 Plt Count 250 Th/cmm (150-400) 01/24/19 06:10 MPV 7.5 fl 01/24/19 06:10 Neutrophils % 53.0 % (40.0-80.0) 01/24/19 06:10 Lymphocytes % 34.8 % (20.0-50.0) 01/24/19 06:10 Monocytes % 7.3 % (2.0-10.0) 01/24/19 06:10 Eosinophils % 3.8 % (0.0-5.0) 01/24/19 06:10 Basophils % 1.1 % (0.0-2.0) 01/24/19 06:10 PT 10.1 SECONDS (9.5-11.5) 01/23/19 02:00 INR 0.97 (0.5-1.4) 01/23/19 02:00 Sodium 139 mEq/L (136-145) 01/24/19 06:10 Potassium 4.3 mEq/L (3.5-5.1) 01/24/19 06:10 Chloride 104 mEq/L (98-107) 01/24/19 06:10 Carbon Dioxide 28.6 mEq/L (21.0-31.0) 01/24/19 06:10 Anion Gap 10.7 (7.0-16.0) 01/24/19 06:10 BUN 17 mg/dL (7-25) 01/24/19 06:10 Creatinine 0.4 mg/dL (0.6-1.2) L 01/24/19 06:10 Est GFR ( Amer) > 60.0 ml/min (>90) 01/24/19 06:10 Est GFR (Non-Af Amer) > 60.0 ml/min 01/24/19 06:10 BUN/Creatinine Ratio 42.5 01/24/19 06:10 Glucose 99 mg/dL (70-105) 01/24/19 06:10 POC Glucose 83 MG/DL (70 - 105) 01/24/19 09:10 Whole Bld Lactic Acid 1.42 mmol/L (0.60-1.99) 01/23/19 02:00 Calcium 9.4 mg/dL (8.6-10.3) 01/24/19 06:10 Total Bilirubin 0.4 mg/dL (0.3-1.0) 01/23/19 02:00 AST 18 U/L (13-39) 01/23/19 02:00 ALT 40 U/L (7-52) 01/23/19 02:00 Alkaline Phosphatase 135 U/L (34-104) H 01/23/19 02:00 Creatine Kinase 36 U/L (30-223) 01/23/19 02:00 Troponin I < 0.01 ng/mL (0.01-0.05) L 01/23/19 02:00 B-Natriuretic Peptide 215.0 pg/mL (5.0-100.0) H 01/23/19 02:00 Total Protein 6.5 gm/dL (6.0-8.3) 01/23/19 02:00 Albumin 2.9 gm/dL (3.7-5.3) L 01/23/19 02:00 Globulin 3.6 gm/dL 01/23/19 02:00 Albumin/Globulin Ratio 0.8 (1.0-1.8) L 01/23/19 02:00 Triglycerides 120 mg/dL (<150) 01/23/19 02:00 Cholesterol 107 mg/dL (<200) 01/23/19 02:00 LDL Cholesterol Direct 66 mg/dL (75-193) L 01/23/19 02:00 HDL Cholesterol 29 mg/dL (23-92) 01/23/19 02:00 Urine Source CATH 01/23/19 02:20 Urine Color YELLOW 01/23/19 02:20 Urine Clarity CLEAR (CLEAR) 01/23/19 02:20 Urine pH 7.0 (4.6 - 8.0) 01/23/19 02:20 Ur Specific [place] 1.010 (1.005-1.030) 01/23/19 02:20 Urine Protein NEGATIVE mg/dL (NEGATIVE) 01/23/19 02:20 Urine Glucose (UA) NEGATIVE mg/dL (NEGATIVE) 01/23/19 02:20 Urine Ketones NEGATIVE mg/dL (NEGATIVE) 01/23/19 02:20 Urine Blood NEGATIVE (NEGATIVE) 01/23/19 02:20 Urine Nitrate NEGATIVE (NEGATIVE) 01/23/19 02:20 Urine Bilirubin NEGATIVE (NEGATIVE) 01/23/19 02:20 Urine Urobilinogen 0.2 E.U./dL (0.2 - 1.0) 01/23/19 02:20 Ur Leukocyte Esterase NEGATIVE (NEGATIVE) 01/23/19 02:20 - Physical Exam Vitals and I&O: Vital Signs Temp 97.6 F 01/24/19 08:00 Pulse 90 01/24/19 11:15 Resp 18 01/24/19 11:15 BP 122/71 01/24/19 08:00 Pulse Ox 95 01/24/19 11:15 Intake & Output 01/23/19 01/24/19 01/24/19 18:59 06:59 18:59 Intake Total 660 1020 Output Total 0 Balance 660 1020 Weight (lbs) 41.277 kg 41.277 kg Intake: Intake, IV Amount 300 Azithromycin 500 mg In 250 Sodium Chloride 0.9% 250 ml @ 250 mls/hr IV Q24HR [facility] Rx#:[id number] cefTRIAXone 1 gm In 50 Sodium Chloride 0.9% 50 ml @ 100 mls/hr IV Q24HR [facility] Rx#:[id number] Tube Feeding 360 720 Albumin 300 Output: Stool 0 Other: # Voids 2 2 # Bowel Movements 0 Stool Characteristics Soft Soft Soft Weight Source Bedscale Bedscale Active Medications: Current Medications Acetaminophen (Tylenol) 650 mg GT Q6H PRN PRN Reason: mild pain Stop: 03/24/19 13:09 Last Admin: 01/23/19 22:20 Dose: 650 mg Al Hydrox/Mg Hydrox/Simethicone (Maalox) 30 ml GT Q6HR PRN PRN Reason: Abdominal Pain Stop: 03/24/19 13:09 Albuterol Sulfate (Albuterol 2.5mg/3ml Neb Ud) 2.5 mg HHN Q2HR PRN PRN Reason: Shortness of Breath Stop: 03/24/19 13:09 Albuterol Sulfate (Albuterol 2.5mg/3ml Neb Ud) 2.5 mg HHN [id number] [facility] Stop: 03/24/19 14:59 Last Admin: 01/24/19 11:15 Dose: 2.5 mg Ascorbic Acid (Vitamin C) 500 mg GT Q12HR [facility] Stop: 03/24/19 20:59 Last Admin: 01/24/19 08:47 Dose: 500 mg Bisacodyl (Dulcolax 10 Mg Supp) 10 mg RC DAILY PRN PRN Reason: Constipation Stop: 03/24/19 13:09 Budesonide (Pulmicort) 0.5 mg HHN BID [facility] Stop: 03/24/19 16:59 Last Admin: 01/24/19 11:17 Dose: Not Given Carvedilol (Coreg) 6.25 mg GT Q12H [facility] Stop: 03/24/19 13:14 Last Admin: 01/24/19 00:53 Dose: 6.25 mg [place] Oil/Cymraes Balsam/Trypsin (Venelex) 1 appl TP DAILY [facility] Stop: 03/25/19 08:59 Last Admin: 01/24/19 09:12 Dose: 1 appl Dextrose (Glutose 40%) 18.75 gm PO UD PRN PRN Reason: Blood Glucose less than 70 Stop: 03/24/19 13:09 Docusate Sodium (Colace) 200 mg GT Q12H PRN PRN Reason: Constipation Stop: 03/24/19 13:09 Ferrous Sulfate (Iron) 325 mg PO DAILY [facility] Stop: 03/25/19 08:59 Last Admin: 01/24/19 08:47 Dose: 325 mg Glucagon (Glucagen) 1 mg IM PRN PRN PRN Reason: Blood Glucose less than 70 Stop: 03/24/19 13:09 Heparin Sodium (Porcine) (Heparin) 5,000 units SUBQ Q12H [facility] Stop: 03/24/19 13:14 Last Admin: 01/24/19 00:54 Dose: 5,000 units Azithromycin 500 mg/ Sodium (Chloride) 250 mls @ 250 mls/hr IV Q24HR [facility] Stop: 03/24/19 09:44 Last Admin: 01/24/19 09:50 Dose: 250 mls/hr Ceftriaxone Sodium 1 gm/ (Sodium Chloride) 50 mls @ 100 mls/hr IV Q24HR [facility] Stop: 03/24/19 09:44 Last Admin: 01/24/19 08:47 Dose: 100 mls/hr Vancomycin HCl 1 gm/ Sodium (Chloride) 250 mls @ 165 mls/hr IV Q24H [facility] Stop: 03/24/19 12:59 Last Admin: 01/23/19 12:35 Dose: 165 mls/hr Insulin Human Lispro (Humalog Insulin Sliding Scale) 0 units SUBQ Q12HR [facility]; Protocol Stop: 03/24/19 20:59 Last Admin: 01/24/19 09:13 Dose: Not Given Lactobacillus Rhamnosus (Culturelle 15b) 1 each PO DAILY [facility] Stop: 03/25/19 08:59 Last Admin: 01/24/19 08:47 Dose: 1 each Lorazepam (Ativan) 1 mg GT Q6H PRN; Protocol PRN Reason: Anxiety Stop: 03/24/19 13:09 Last Admin: 01/24/19 00:54 Dose: 1 mg Magnesium Hydroxide (Milk Of Magnesia) 30 ml GT HS PRN PRN Reason: Constipation Stop: 03/24/19 13:09 Miscellaneous (Vancomycin Iv Per Pharmacy) 1 ea MC PRN PRN PRN Reason: PROTOCOL Stop: 03/24/19 10:40 Pantoprazole Sodium (Protonix) 40 mg IVP DAILY [facility] Stop: 03/25/19 08:59 Last Admin: 01/24/19 08:47 Dose: 40 mg Sodium Phosphate (Fleet Enema) 135 ml RC Q48HR PRN PRN Reason: Constipation Stop: 03/24/19 13:09 Physical Exam: 58 y/o female patient recently had a fall, possible syncope. General: weak, alert HEENT: NC/AT Neck: + trach Lungs: other (Respiratory failure, stable.) Cardiovascular: RRR, Normal S1 Abdomen: +GT Extremities: clear Neurological: muscle weakness, unsteady - Procedures Procedures: Procedures Procedure Code Date INSERTION OF FEEDING DEVICE INTO STOMACH, PERC APPROACH [id number] 01/02/19 INSERTION OF INFUSION DEVICE INTO R LOW ARM, PERC APPROACH [id number] 01/02/19 INTRODUCTION OF NUTRITIONAL INTO PERIPH VEIN, PERC APPROACH [id number] 01/02/19 RESPIRATORY VENTILATION, LESS THAN 24 CONSECUTIVE HOURS [id number] 04/07/18 Internal Medicine Assmt/Plan - Assessment Assessment: S/p fall. Chronic Respiratory Failure. Hypertension. Diabetes. CAD. Copd. Dyslipidemia. Gerd. S/p trach and PEG.
[2019-01-24] MEDS ORDERED: Probiotic Screen MC PRN (14:20)
--- NOTE | 2019-01-24 14:33 | Consultation ---
DATE OF CONSULTATION: 01/23/2019 PULMONARY CONSULTATION REFERRING PHYSICIAN: Kacey Kearns M.D. Thank you very much for this consultation. HISTORY OF PRESENT ILLNESS: This is a 58-year-old female known to me from previous admission, history of advanced COPD, lung cancer, who presented with fall. She was admitted for treatment and management, has a history of severe chronic respiratory failure, had a tracheostomy which apparently was removed recently. SOCIAL HISTORY: Smoking in the past. REVIEW OF SYSTEMS: GENERAL: Some weakness and fatigue. CARDIOVASCULAR: No chest pain or palpations. RESPIRATORY: Shortness of breath. GASTROINTESTINAL: No nausea or vomiting. PHYSICAL EXAMINATION: GENERAL: Awake, alert, not in acute distress. VITAL SIGNS: Temperature 98.2, pulse is 81, respiration 18, blood pressure 104/75, saturation 93% on room air. HEENT: Atraumatic, normocephalic. Pupils equal and reactive to light and accommodation. Ears, nose and throat normal. NECK: Tracheostomy site is still open. CHEST: Good breath sounds. No wheezing or crackles. HEART: Regular rate and rhythm. ABDOMEN: Soft. EXTREMITIES: No edema. LABORATORY DATA: WBC 3.6, hemoglobin 8.1, hematocrit 24.2, platelets of 229. Sodium 138, potassium 4.0, BUN 15, creatinine 0.4. Chest x-ray was clear, no active disease. IMPRESSION: 1. Chronic respiratory failure. 2. Chronic obstructive pulmonary disease. 3. Status post fall. PLAN: Continue nebulizer, continue to observe and hopefully can be discharged back to nursing facility soon. Thank you very much for this consultation. We will follow the patient with you. JOB# [id number]
[2019-01-25] MEDS: Albuterol Nebulizer 2.5mg/3mL HHN SCH ×4 (07:16→19:03)
[2019-01-25] MEDS: Budesonide 0.5 Mg/2 mL Ud HHN SCH ×2 (09:07→19:04)
[2019-01-25] MEDS: Lactobacillus Rhamnosus GG 15 Billion CFU CAP.SPRINK PO SCH (09:33)
[2019-01-25] MEDS: Multivitamin w/ Minerals Tab GT SCH (09:33)
[2019-01-25] MEDS: Ferrous Sulfate 325 MG TAB PO SCH (09:33)
[2019-01-25] MEDS: cefTRIAXone 1 GM in Sodium Chloride 0.9% 50 ML IV SCH (09:34)
[2019-01-25] MEDS: INSULIN LISPRO SLIDING SCALE 100 UNITS/ML UNIT SUBQ SCH ×2 (09:57→22:56)
[2019-01-25] MEDS: Venelex 60gm Tube TP SCH (09:58)
[2019-01-25] MEDS: Azithromycin 500 MG in Sodium Chloride 0.9% 250 ML IV SCH (10:52)
--- NOTE | 2019-01-25 13:11 | Progress Notes ---
DATE: 01/24/2019 SUBJECTIVE: The patient appears to be doing okay. OBJECTIVE: GENERAL: No distress. VITAL SIGNS: Temperature 97.6, pulse 69, respirations 20, blood pressure 135/70, saturation 99%. CHEST: Good breath sounds. No wheezing or crackles. HEART: Regular rhythm. ABDOMEN: Soft. EXTREMITIES: No edema. LABORATORY DATA: WBC is 3.4, hemoglobin 9.9, hematocrit 29.8, platelets 250. Sodium is 139, potassium 4.3, BUN 17, creatinine 0.4. IMPRESSION: 1. Respiratory failure. 2. Pneumonia. 3. Dysphagia. 4. Chronic obstructive pulmonary disease. PLAN: Continue nebulizer treatment, antibiotics, supportive care and discharge planning. [facility]# [id number]
--- NOTE | 2019-01-25 14:50 | Internal Medicine Prog Note ---
Internal Medicine Subjective - Subjective Service Date: 01/25/19 Patient is:: awake, talking, other (S/p Fall.) Patient Complaints of:: other (respiratory failure, stable, s/p decannulation.) Per staff patient has:: no adverse event Internal Medicine Objective - Results Result Diagrams: 01/24/19 06:10 01/24/19 06:10 Recent Labs: Laboratory Last Values WBC 3.4 Th/cmm (4.8-10.8) L 01/24/19 06:10 RBC 3.14 Mil/cmm (3.80-5.10) L 01/24/19 06:10 Hgb 9.9 gm/dL (12-16) L 01/24/19 06:10 Hct 29.8 % (41.0-60) L 01/24/19 06:10 MCV 95.1 fl (81-100) 01/24/19 06:10 MCH 31.5 pg (27.0-31.0) H 01/24/19 06:10 MCHC Differential 33.1 pg (28.0-36.0) 01/24/19 06:10 RDW 15.3 % (11.5-20.0) 01/24/19 06:10 Plt Count 250 Th/cmm (150-400) 01/24/19 06:10 MPV 7.5 fl 01/24/19 06:10 Neutrophils % 53.0 % (40.0-80.0) 01/24/19 06:10 Lymphocytes % 34.8 % (20.0-50.0) 01/24/19 06:10 Monocytes % 7.3 % (2.0-10.0) 01/24/19 06:10 Eosinophils % 3.8 % (0.0-5.0) 01/24/19 06:10 Basophils % 1.1 % (0.0-2.0) 01/24/19 06:10 PT 10.1 SECONDS (9.5-11.5) 01/23/19 02:00 INR 0.97 (0.5-1.4) 01/23/19 02:00 Sodium 139 mEq/L (136-145) 01/24/19 06:10 Potassium 4.3 mEq/L (3.5-5.1) 01/24/19 06:10 Chloride 104 mEq/L (98-107) 01/24/19 06:10 Carbon Dioxide 28.6 mEq/L (21.0-31.0) 01/24/19 06:10 Anion Gap 10.7 (7.0-16.0) 01/24/19 06:10 BUN 17 mg/dL (7-25) 01/24/19 06:10 Creatinine 0.4 mg/dL (0.6-1.2) L 01/24/19 06:10 Est GFR ( Amer) > 60.0 ml/min (>90) 01/24/19 06:10 Est GFR (Non-Af Amer) > 60.0 ml/min 01/24/19 06:10 BUN/Creatinine Ratio 42.5 01/24/19 06:10 Glucose 99 mg/dL (70-105) 01/24/19 06:10 POC Glucose 92 MG/DL (70 - 105) 01/25/19 09:54 Whole Bld Lactic Acid 1.42 mmol/L (0.60-1.99) 01/23/19 02:00 Calcium 9.4 mg/dL (8.6-10.3) 01/24/19 06:10 Total Bilirubin 0.4 mg/dL (0.3-1.0) 01/23/19 02:00 AST 18 U/L (13-39) 01/23/19 02:00 ALT 40 U/L (7-52) 01/23/19 02:00 Alkaline Phosphatase 135 U/L (34-104) H 01/23/19 02:00 Creatine Kinase 36 U/L (30-223) 01/23/19 02:00 Troponin I < 0.01 ng/mL (0.01-0.05) L 01/23/19 02:00 B-Natriuretic Peptide 215.0 pg/mL (5.0-100.0) H 01/23/19 02:00 Total Protein 6.5 gm/dL (6.0-8.3) 01/23/19 02:00 Albumin 2.9 gm/dL (3.7-5.3) L 01/23/19 02:00 Globulin 3.6 gm/dL 01/23/19 02:00 Albumin/Globulin Ratio 0.8 (1.0-1.8) L 01/23/19 02:00 Triglycerides 120 mg/dL (<150) 01/23/19 02:00 Cholesterol 107 mg/dL (<200) 01/23/19 02:00 LDL Cholesterol Direct 66 mg/dL (75-193) L 01/23/19 02:00 HDL Cholesterol 29 mg/dL (23-92) 01/23/19 02:00 Urine Source CATH 01/23/19 02:20 Urine Color YELLOW 01/23/19 02:20 Urine Clarity CLEAR (CLEAR) 01/23/19 02:20 Urine pH 7.0 (4.6 - 8.0) 01/23/19 02:20 Ur Specific [place] 1.010 (1.005-1.030) 01/23/19 02:20 Urine Protein NEGATIVE mg/dL (NEGATIVE) 01/23/19 02:20 Urine Glucose (UA) NEGATIVE mg/dL (NEGATIVE) 01/23/19 02:20 Urine Ketones NEGATIVE mg/dL (NEGATIVE) 01/23/19 02:20 Urine Blood NEGATIVE (NEGATIVE) 01/23/19 02:20 Urine Nitrate NEGATIVE (NEGATIVE) 01/23/19 02:20 Urine Bilirubin NEGATIVE (NEGATIVE) 01/23/19 02:20 Urine Urobilinogen 0.2 E.U./dL (0.2 - 1.0) 01/23/19 02:20 Ur Leukocyte Esterase NEGATIVE (NEGATIVE) 01/23/19 02:20 - Physical Exam Vitals and I&O: Vital Signs Temp 97.3 F 01/25/19 11:24 Pulse 62 01/25/19 13:49 Resp 18 01/25/19 14:00 BP 124/71 01/25/19 13:49 Pulse Ox 96 01/25/19 11:24 Intake & Output 01/24/19 01/25/19 01/25/19 18:59 06:59 18:59 Intake Total 300 970 Balance 300 970 Weight (lbs) 91 lb 91 lb Intake: Intake, IV Amount 300 250 Azithromycin 500 mg In 250 Sodium Chloride 0.9% 250 ml @ 250 mls/hr IV Q24HR [facility] Rx#:[id number] Vancomycin HCl 0.75 gm In 250 Sodium Chloride 0.9% 250 ml @ 165 mls/hr IV Q12H [facility] Rx#:[id number] cefTRIAXone 1 gm In 50 Sodium Chloride 0.9% 50 ml @ 100 mls/hr IV Q24HR [facility] Rx#:[id number] Tube Feeding 720 Other: # Voids 3 2 Stool Characteristics Soft Soft Soft Weight Source Bedscale Bedscale Active Medications: Current Medications Acetaminophen (Tylenol) 650 mg GT Q6H PRN PRN Reason: mild pain Stop: 03/24/19 13:09 Last Admin: 01/23/19 22:20 Dose: 650 mg Al Hydrox/Mg Hydrox/Simethicone (Maalox) 30 ml GT Q6HR PRN PRN Reason: Abdominal Pain Stop: 03/24/19 13:09 Albuterol Sulfate (Albuterol 2.5mg/3ml Neb Ud) 2.5 mg HHN Q2HR PRN PRN Reason: Shortness of Breath Stop: 03/24/19 13:09 Albuterol Sulfate (Albuterol 2.5mg/3ml Neb Ud) 2.5 mg HHN [id number] Stop: 03/24/19 14:59 Last Admin: 01/25/19 11:07 Dose: 2.5 mg Ascorbic Acid (Vitamin C) 500 mg GT Q12HR [facility] Stop: 03/24/19 20:59 Last Admin: 01/25/19 09:34 Dose: 500 mg Bisacodyl (Dulcolax 10 Mg Supp) 10 mg RC DAILY PRN PRN Reason: Constipation Stop: 03/24/19 13:09 Budesonide (Pulmicort) 0.5 mg HHN BID [facility] Stop: 03/24/19 16:59 Last Admin: 01/25/19 09:07 Dose: 0.5 mg Carvedilol (Coreg) 6.25 mg GT Q12H [facility] Stop: 03/24/19 13:14 Last Admin: 01/25/19 13:49 Dose: 6.25 mg [place] Oil/[place] Balsam/Trypsin (Venelex) 1 appl TP DAILY [facility] Stop: 03/25/19 08:59 Last Admin: 01/25/19 09:58 Dose: 1 appl Dextrose (Glutose 40%) 18.75 gm PO UD PRN PRN Reason: Blood Glucose less than 70 Stop: 03/24/19 13:09 Docusate Sodium (Colace) 200 mg GT Q12H PRN PRN Reason: Constipation Stop: 03/24/19 13:09 Ferrous Sulfate (Iron) 325 mg PO DAILY [facility] Stop: 03/25/19 08:59 Last Admin: 01/25/19 09:33 Dose: 325 mg Glucagon (Glucagen) 1 mg IM PRN PRN PRN Reason: Blood Glucose less than 70 Stop: 03/24/19 13:09 Heparin Sodium (Porcine) (Heparin) 5,000 units SUBQ Q12H [facility] Stop: 03/24/19 13:14 Last Admin: 01/25/19 13:49 Dose: 5,000 units Azithromycin 500 mg/ Sodium (Chloride) 250 mls @ 250 mls/hr IV Q24HR [facility] Stop: 03/24/19 09:44 Last Admin: 01/25/19 10:52 Dose: 250 mls/hr Ceftriaxone Sodium 1 gm/ (Sodium Chloride) 50 mls @ 100 mls/hr IV Q24HR [facility] Stop: 03/24/19 09:44 Last Admin: 01/25/19 09:34 Dose: 100 mls/hr Vancomycin HCl 0.75 gm/ Sodium (Chloride) 250 mls @ 165 mls/hr IV Q12H [facility] Stop: 03/26/19 00:59 Last Admin: 01/25/19 13:49 Dose: 165 mls/hr Insulin Human Lispro (Humalog Insulin Sliding Scale) 0 units SUBQ Q12HR [facility]; Protocol Stop: 03/24/19 20:59 Last Admin: 01/25/19 09:57 Dose: Not Given Lactobacillus Rhamnosus (Culturelle 15b) 1 each PO DAILY [facility] Stop: 03/25/19 08:59 Last Admin: 01/25/19 09:33 Dose: 1 each Lorazepam (Ativan) 1 mg GT Q6H PRN; Protocol PRN Reason: Anxiety Stop: 03/24/19 13:09 Last Admin: 01/25/19 05:53 Dose: 1 mg Magnesium Hydroxide (Milk Of Magnesia) 30 ml GT HS PRN PRN Reason: Constipation Stop: 03/24/19 13:09 Miscellaneous (Vancomycin Iv Per Pharmacy) 1 ea MC PRN PRN PRN Reason: PROTOCOL Stop: 03/24/19 10:40 Miscellaneous (Probiotic Screen) 1 ea MC PRN PRN PRN Reason: PROTOCOL Stop: 03/25/19 14:19 Pantoprazole Sodium (Protonix) 40 mg IVP DAILY [facility] Stop: 03/25/19 08:59 Last Admin: 01/25/19 09:33 Dose: 40 mg Sodium Phosphate (Fleet Enema) 135 ml RC Q48HR PRN PRN Reason: Constipation Stop: 03/24/19 13:09 General: weak, alert HEENT: NC/AT Neck: + trach Lungs: other (Respiratory failure, stable.) Cardiovascular: RRR, Normal S1 Abdomen: +GT Extremities: clear Neurological: muscle weakness, unsteady - Procedures Procedures: Procedures Procedure Code Date INSERTION OF FEEDING DEVICE INTO STOMACH, PERC APPROACH [id number] 01/02/19 INSERTION OF INFUSION DEVICE INTO R LOW ARM, PERC APPROACH [id number] 01/02/19 INTRODUCTION OF NUTRITIONAL INTO PERIPH VEIN, PERC APPROACH [id number] 01/02/19 RESPIRATORY VENTILATION, LESS THAN 24 CONSECUTIVE HOURS [id number] 04/07/18 Internal Medicine Assmt/Plan - Assessment Assessment: S/p fall. Chronic Respiratory Failure. Hypertension. Diabetes. CAD. Copd. Dyslipidemia. Gerd. S/p trach and PEG. - Plan Plan: placement issues am labs continue current plan of care Nutritional Asmnt/Malnutr-PDOC - Dietary Evaluation Malnutrition Findings (Please click <Entered> for more info): Nutritional Asmnt/Malnutrition Start: 01/24/19 17: 26 Text: Status: Complete Freq: Protocol: Document 01/24/19 17:27 LCHENG (Rec: 01/24/19 17:49 [id number]) Nutritional Asmnt/Malnutrition Patient General Information Nutritional Screening High Risk Consult Diagnosis falls and weakness Pertinent Medical Hx/Surgical Hx HTN, DM, CAD, asthma/COPD, dyslipidemia, PUD/GERD, PEG/ Gtube Subjective Information Pt seen resting in bed at time of visit. Spoke with RN yesterday regarding TF regimen . Current Diet Order/ Nutrition Support Jevity 1.2 at 60ml/hr x 20hr Pertinent Medications vitC, colace, iron, heparin, humalog, culturelle Pertinent Labs 01/24 Cr 0.4, Glucose 99, POC 67-83 Nutritional Hx/Data Height 5 ft 4 in Height (Calculated Centimeters) 162.6 Current Weight (lbs) 91 lb Weight (Calculated Kilograms) 41.3 Weight (Calculated Grams) 34155.9 [place] Body Weight 120 Body Mass Index (BMI) 15.6 Weight Status Underweight GI Symptoms GI Symptoms None Last BM none Difficult in: None Estimated Nutritional Goals Calories/Kcals/Kg 25-30 IBW 55kg Kcals Calculated 2897-2913 Protein g/k-1.2 Protein Calculated 55-66 Fluid: ml 1265-1485ml (1ml/kcal) Nutritional Problem No current Nutrition Prob Problem N/A Intervention/Recommendation Comments 1. Continue with current TF regimen Jevity 1.2 at 60ml/hr x 20hr. It provides 1440kcal, 67g protein, 968ml free water, meeting 100% of nutritional needs 2. Monitor TF rate, tolerance, wt, skin integrity and labs 3. F/U as low risk in 7 days Expected Outcomes/Goals Expected Outcomes/Goals 1. Pt to meet at least 90% of nutritional needs via nutrition support with tolerance 2. Wt stability, skin to remain intact, labs to approach WNL.
[2019-01-25] MEDS: D5-0.45NS 1,000 ML IV SCH (22:11)
--- NOTE | 2019-01-25 22:47 | Infectious Disease Prog Note ---
Infectious Disease Subjective - Review of Systems Service Date: 01/25/19 Subjective: There is no new change, no fever. Infectious Disease Objective - Results Result Diagrams: 01/24/19 06:10 01/24/19 06:10 Recent Labs: Laboratory Last Values WBC 3.4 Th/cmm (4.8-10.8) L 01/24/19 06:10 RBC 3.14 Mil/cmm (3.80-5.10) L 01/24/19 06:10 Hgb 9.9 gm/dL (12-16) L 01/24/19 06:10 Hct 29.8 % (41.0-60) L 01/24/19 06:10 MCV 95.1 fl (81-100) 01/24/19 06:10 MCH 31.5 pg (27.0-31.0) H 01/24/19 06:10 MCHC Differential 33.1 pg (28.0-36.0) 01/24/19 06:10 RDW 15.3 % (11.5-20.0) 01/24/19 06:10 Plt Count 250 Th/cmm (150-400) 01/24/19 06:10 MPV 7.5 fl 01/24/19 06:10 Neutrophils % 53.0 % (40.0-80.0) 01/24/19 06:10 Lymphocytes % 34.8 % (20.0-50.0) 01/24/19 06:10 Monocytes % 7.3 % (2.0-10.0) 01/24/19 06:10 Eosinophils % 3.8 % (0.0-5.0) 01/24/19 06:10 Basophils % 1.1 % (0.0-2.0) 01/24/19 06:10 PT 10.1 SECONDS (9.5-11.5) 01/23/19 02:00 INR 0.97 (0.5-1.4) 01/23/19 02:00 Sodium 139 mEq/L (136-145) 01/24/19 06:10 Potassium 4.3 mEq/L (3.5-5.1) 01/24/19 06:10 Chloride 104 mEq/L (98-107) 01/24/19 06:10 Carbon Dioxide 28.6 mEq/L (21.0-31.0) 01/24/19 06:10 Anion Gap 10.7 (7.0-16.0) 01/24/19 06:10 BUN 17 mg/dL (7-25) 01/24/19 06:10 Creatinine 0.4 mg/dL (0.6-1.2) L 01/24/19 06:10 Est GFR ( Amer) > 60.0 ml/min (>90) 01/24/19 06:10 Est GFR (Non-Af Amer) > 60.0 ml/min 01/24/19 06:10 BUN/Creatinine Ratio 42.5 01/24/19 06:10 Glucose 99 mg/dL (70-105) 01/24/19 06:10 POC Glucose 92 MG/DL (70 - 105) 01/25/19 09:54 Whole Bld Lactic Acid 1.42 mmol/L (0.60-1.99) 01/23/19 02:00 Calcium 9.4 mg/dL (8.6-10.3) 01/24/19 06:10 Total Bilirubin 0.4 mg/dL (0.3-1.0) 01/23/19 02:00 AST 18 U/L (13-39) 01/23/19 02:00 ALT 40 U/L (7-52) 01/23/19 02:00 Alkaline Phosphatase 135 U/L (34-104) H 01/23/19 02:00 Creatine Kinase 36 U/L (30-223) 01/23/19 02:00 Troponin I < 0.01 ng/mL (0.01-0.05) L 01/23/19 02:00 B-Natriuretic Peptide 215.0 pg/mL (5.0-100.0) H 01/23/19 02:00 Total Protein 6.5 gm/dL (6.0-8.3) 01/23/19 02:00 Albumin 2.9 gm/dL (3.7-5.3) L 01/23/19 02:00 Globulin 3.6 gm/dL 01/23/19 02:00 Albumin/Globulin Ratio 0.8 (1.0-1.8) L 01/23/19 02:00 Triglycerides 120 mg/dL (<150) 01/23/19 02:00 Cholesterol 107 mg/dL (<200) 01/23/19 02:00 LDL Cholesterol Direct 66 mg/dL (75-193) L 01/23/19 02:00 HDL Cholesterol 29 mg/dL (23-92) 01/23/19 02:00 Urine Source CATH 01/23/19 02:20 Urine Color YELLOW 01/23/19 02:20 Urine Clarity CLEAR (CLEAR) 01/23/19 02:20 Urine pH 7.0 (4.6 - 8.0) 01/23/19 02:20 Ur Specific [place] 1.010 (1.005-1.030) 01/23/19 02:20 Urine Protein NEGATIVE mg/dL (NEGATIVE) 01/23/19 02:20 Urine Glucose (UA) NEGATIVE mg/dL (NEGATIVE) 01/23/19 02:20 Urine Ketones NEGATIVE mg/dL (NEGATIVE) 01/23/19 02:20 Urine Blood NEGATIVE (NEGATIVE) 01/23/19 02:20 Urine Nitrate NEGATIVE (NEGATIVE) 01/23/19 02:20 Urine Bilirubin NEGATIVE (NEGATIVE) 01/23/19 02:20 Urine Urobilinogen 0.2 E.U./dL (0.2 - 1.0) 01/23/19 02:20 Ur Leukocyte Esterase NEGATIVE (NEGATIVE) 01/23/19 02:20 - Physical Exam Vitals and I&O: Vital Signs Temp 98 F 01/25/19 19:59 Pulse 64 01/25/19 19:59 Resp 18 01/25/19 19:59 BP 130/82 01/25/19 19:59 Pulse Ox 96 01/25/19 19:59 Intake & Output 01/25/19 01/25/19 01/26/19 06:59 18:59 06:59 Intake Total 970 600 Balance 970 600 Weight (lbs) 41.277 kg 41.277 kg Intake: Intake, IV Amount 250 Vancomycin HCl 0.75 gm In 250 Sodium Chloride 0.9% 250 ml @ 165 mls/hr IV Q12H [facility] Rx#:[id number] Tube Feeding 720 600 Other: # Voids 2 2 # Bowel Movements 0 Stool Characteristics Soft Soft Weight Source Bedscale Bedscale Active Medications: Current Medications Acetaminophen (Tylenol) 650 mg GT Q6H PRN PRN Reason: mild pain Stop: 03/24/19 13:09 Last Admin: 03/28/19 22:20 Dose: 650 mg Al Hydrox/Mg Hydrox/Simethicone (Maalox) 30 ml GT Q6HR PRN PRN Reason: Abdominal Pain Stop: 03/24/19 13:09 Albuterol Sulfate (Albuterol 2.5mg/3ml Neb Ud) 2.5 mg HHN Q2HR PRN PRN Reason: Shortness of Breath Stop: 03/24/19 13:09 Albuterol Sulfate (Albuterol 2.5mg/3ml Neb Ud) 2.5 mg HHN [id number] [facility] Stop: 03/24/19 14:59 Last Admin: 01/25/19 19:03 Dose: 2.5 mg Ascorbic Acid (Vitamin C) 500 mg GT Q12HR [facility] Stop: 03/24/19 20:59 Last Admin: 01/25/19 21:50 Dose: Not Given Bisacodyl (Dulcolax 10 Mg Supp) 10 mg RC DAILY PRN PRN Reason: Constipation Stop: 03/24/19 13:09 Budesonide (Pulmicort) 0.5 mg HHN BID [facility] Stop: 03/24/19 16:59 Last Admin: 01/25/19 19:04 Dose: 0.5 mg Carvedilol (Coreg) 6.25 mg GT Q12H [facility] Stop: 03/24/19 13:14 Last Admin: 01/25/19 13:49 Dose: 6.25 mg [place] Oil/[place] Balsam/Trypsin (Venelex) 1 appl TP DAILY [facility] Stop: 03/25/19 08:59 Last Admin: 01/25/19 09:58 Dose: 1 appl Dextrose (Glutose 40%) 18.75 gm PO UD PRN PRN Reason: Blood Glucose less than 70 Stop: 03/24/19 13:09 Docusate Sodium (Colace) 200 mg GT Q12H PRN PRN Reason: Constipation Stop: 03/24/19 13:09 Ferrous Sulfate (Iron) 325 mg PO DAILY [facility] Stop: 03/25/19 08:59 Last Admin: 01/25/19 09:33 Dose: 325 mg Glucagon (Glucagen) 1 mg IM PRN PRN PRN Reason: Blood Glucose less than 70 Stop: 03/24/19 13:09 Heparin Sodium (Porcine) (Heparin) 5,000 units SUBQ Q12H [facility] Stop: 03/24/19 13:14 Last Admin: 01/25/19 13:49 Dose: 5,000 units Azithromycin 500 mg/ Sodium (Chloride) 250 mls @ 250 mls/hr IV Q24HR [facility] Stop: 03/24/19 09:44 Last Admin: 01/25/19 10:52 Dose: 250 mls/hr Ceftriaxone Sodium 1 gm/ (Sodium Chloride) 50 mls @ 100 mls/hr IV Q24HR [facility] Stop: 03/24/19 09:44 Last Admin: 01/25/19 09:34 Dose: 100 mls/hr Vancomycin HCl 0.75 gm/ Sodium (Chloride) 250 mls @ 165 mls/hr IV Q12H [facility] Stop: 03/26/19 00:59 Last Admin: 01/25/19 13:49 Dose: 165 mls/hr Dextrose/Sodium Chloride (D5-0.45ns) 1,000 mls @ 50 mls/hr IV .Q20H [facility] Stop: 03/26/19 22:14 Last Admin: 01/25/19 22:11 Dose: 50 mls/hr Insulin Human Lispro (Humalog Insulin Sliding Scale) 0 units SUBQ Q12HR [facility]; Protocol Stop: 03/24/19 20:59 Last Admin: 01/25/19 09:57 Dose: Not Given Lactobacillus Rhamnosus (Culturelle 15b) 1 each PO DAILY [facility] Stop: 03/25/19 08:59 Last Admin: 01/25/19 09:33 Dose: 1 each Lorazepam (Ativan) 1 mg GT Q6H PRN; Protocol PRN Reason: Anxiety Stop: 03/24/19 13:09 Last Admin: 01/25/19 05:53 Dose: 1 mg Magnesium Hydroxide (Milk Of Magnesia) 30 ml GT HS PRN PRN Reason: Constipation Stop: 03/24/19 13:09 Miscellaneous (Vancomycin Iv Per Pharmacy) 1 ea [facility] PRN PRN PRN Reason: PROTOCOL Stop: 03/24/19 10:40 Miscellaneous (Probiotic Screen) 1 ea MC PRN PRN PRN Reason: PROTOCOL Stop: 03/25/19 14:19 Pantoprazole Sodium (Protonix) 40 mg IVP DAILY [facility] Stop: 03/25/19 08:59 Last Admin: 01/25/19 09:33 Dose: 40 mg Sodium Phosphate (Fleet Enema) 135 ml RC Q48HR PRN PRN Reason: Constipation Stop: 03/24/19 13:09 General: no acute distress, cachectic HEENT: atraumatic, normocephalic, PERRLA, EOMI Neck: supple, no thyromegaly, no lymphadenopathy Cardiovascular: S1S2, regular Lungs: clear to auscultation bilaterally, clear to percussion Abdomen: soft, no tender, no distended Extremities: no cyanosis, no clubbing, no edema Neurological: awake, alert - Procedures Procedures: Procedures Procedure Code Date INSERTION OF FEEDING DEVICE INTO STOMACH, PERC APPROACH [id number] 01/02/19 INSERTION OF INFUSION DEVICE INTO R LOW ARM, PERC APPROACH [id number] 01/02/19 INTRODUCTION OF NUTRITIONAL INTO PERIPH VEIN, PERC APPROACH [id number] 01/02/19 RESPIRATORY VENTILATION, LESS THAN 24 CONSECUTIVE HOURS [id number] 04/07/18 Infectious Disease Assmt/Plan - Assessment Assessment: 1. MRSA sepsis. treated 2. discitis/osteomyelitis of lumbar spine. 3. Dementia. 4. Dysphagia requiring G-tube placement, but she has pulled out G-tube 3 times already. 5. Dementia. 6. Protein-calorie malnutrition and failure to thrive. 7. Psychosis. 8. Chronic obstructive pulmonary disease. 9. Leukopenia. - Plan Plan: Continue vanco iv for 6 to 8 weeks with trough level 12 - 20. MRI after 2 weeks. Nutritional Asmnt/Malnutr-PDOC - Dietary Evaluation Malnutrition Findings (Please click <Entered> for more info): Nutritional Asmnt/Malnutrition Start: 01/24/19 17: 26 Text: Status: Complete Freq: Protocol: Document 01/24/19 17:27 LCHENG (Rec: 01/24/19 17:49 [email or web address]) Nutritional Asmnt/Malnutrition Patient General Information Nutritional Screening High Risk Consult Diagnosis falls and weakness Pertinent Medical Hx/Surgical Hx HTN, DM, CAD, asthma/COPD, dyslipidemia, PUD/GERD, PEG/ Gtube Subjective Information Pt seen resting in bed at time of visit. Spoke with RN yesterday regarding TF regimen . Current Diet Order/ Nutrition Support Jevity 1.2 at 60ml/hr x 20hr Pertinent Medications vitC, colace, iron, heparin, humalog, culturelle Pertinent Labs 01/24 Cr 0.4, Glucose 99, POC 67-83 Nutritional Hx/Data Height 1.63 m Height (Calculated Centimeters) 162.6 Current Weight (lbs) 41.277 kg Weight (Calculated Kilograms) 41.3 Weight (Calculated Grams) 59997.9 [place] Body Weight 120 Body Mass Index (BMI) 15.6 Weight Status Underweight GI Symptoms GI Symptoms None Last BM none Difficult in: None Estimated Nutritional Goals Calories/Kcals/Kg 25-30 IBW 55kg Kcals Calculated 8931-5012 Protein g/k-1.2 Protein Calculated 55-66 Fluid: ml 1265-1485ml (1ml/kcal) Nutritional Problem No current Nutrition Prob Problem N/A Intervention/Recommendation Comments 1. Continue with current TF regimen Jevity 1.2 at 60ml/hr x 20hr. It provides 1440kcal, 67g protein, 968ml free water, meeting 100% of nutritional needs 2. Monitor TF rate, tolerance, wt, skin integrity and labs 3. F/U as low risk in 7 days Expected Outcomes/Goals Expected Outcomes/Goals 1. Pt to meet at least 90% of nutritional needs via nutrition support with tolerance 2. Wt stability, skin to remain intact, labs to approach WNL.
[2019-01-26 06:12] LABS: ANION GAP 12.8 (7.0-16.0); BUN - UREA NITROGEN 15 mg/dL (7-25); CALCIUM SERUM 9.1 mg/dL (8.6-10.3); CARBON DIOXIDE 23.4 mEq/L (21.0-31.0); CHLORIDE 106 mEq/L (98-107); CREATININE - SERUM 0.3 mg/dL (0.6-1.2); GFR AFRICAN-AMERICAN > 60.0 ml/min (>90); GFR NON AFRICAN-AMERICAN > 60.0 ml/min; GLUCOSE 79 mg/dL (70-105); POTASSIUM SERUM 4.2 mEq/L (3.5-5.1); SODIUM SERUM 138 mEq/L (136-145)
[2019-01-26 06:13] LABS: % BASOPHILS 0.5 % (0.0-2.0); % EOSINOPHILS 2.5 % (0.0-5.0); % LYMPHOCYTES 22.3 % (20.0-50.0); % NEUTROPHILS 66.7 % (40.0-80.0); EOSINOPHILE ABSOLUTE 0.1 Th/cmm (0.1-0.4); HEMATOCRIT 30.6 % (41.0-60); HEMOGLOBIN 10.2 gm/dL (12-16); MEAN CELL VOLUME 95.1 fl (81-100); MEAN CORPUSCULAR HEMOGLOBIN 31.7 pg (27.0-31.0); MEAN CORPUSCULAR HGB CONC 33.3 pg (28.0-36.0); MEAN PLATELET VOLUME 7.7 fl; MONOCYTE ABSOLUTE 0.4 Th/cmm (0.3-1.0); PLATELET COUNT 234 Th/cmm (150-400); RED BLOOD COUNT 3.22 Mil/cmm (3.80-5.10); WHITE BLOOD COUNT 4.5 Th/cmm (4.8-10.8)
[2019-01-26] MEDS: Albuterol Nebulizer 2.5mg/3mL HHN SCH ×4 (07:10→19:08)
[2019-01-26] MEDS: Budesonide 0.5 Mg/2 mL Ud HHN SCH ×2 (07:24→19:08)
--- NOTE | 2019-01-26 08:15 | Diagnostic Imaging Report ---
Upper GI (Limited) HISTORY: Gastrostomy tube placement Water-soluble contrast was instilled into gastrostomy tube. The exam demonstrates opacification of the gastric lumen. Flow contrast into the small bowel. IMPRESSION: 1. Confirmation of gastrostomy tube within the gastric lumen.
[2019-01-26] MEDS: Ferrous Sulfate 325 MG TAB PO SCH (08:50)
[2019-01-26] MEDS: Venelex 60gm Tube TP SCH (08:50)
[2019-01-26] MEDS: Lactobacillus Rhamnosus GG 15 Billion CFU CAP.SPRINK PO SCH (08:50)
[2019-01-26] MEDS: Multivitamin w/ Minerals Tab GT SCH (08:51)
[2019-01-26] MEDS: Azithromycin 500 MG in Sodium Chloride 0.9% 250 ML IV SCH (09:25)
[2019-01-26] MEDS: cefTRIAXone 1 GM in Sodium Chloride 0.9% 50 ML IV SCH (09:25)
[2019-01-26] MEDS: INSULIN LISPRO SLIDING SCALE 100 UNITS/ML UNIT SUBQ SCH ×2 (11:07→21:34)
--- NOTE | 2019-01-26 12:16 | Internal Medicine Prog Note ---
Internal Medicine Subjective - Subjective Patient seen and examined:: chart reviewed Patient is:: awake, other (S/p Fall. no events) Patient Complaints of:: other (respiratory failure, stable, s/p decannulation.) Per staff patient has:: no adverse event Internal Medicine Objective - Results Result Diagrams: 01/26/19 05:40 01/26/19 05:40 Recent Labs: Laboratory Last Values WBC 4.5 Th/cmm (4.8-10.8) L 01/26/19 05:40 RBC 3.22 Mil/cmm (3.80-5.10) L 01/26/19 05:40 Hgb 10.2 gm/dL (12-16) L 01/26/19 05:40 Hct 30.6 % (41.0-60) L 01/26/19 05:40 MCV 95.1 fl (81-100) 01/26/19 05:40 MCH 31.7 pg (27.0-31.0) H 01/26/19 05:40 MCHC Differential 33.3 pg (28.0-36.0) 01/26/19 05:40 RDW 15.0 % (11.5-20.0) 01/26/19 05:40 Plt Count 234 Th/cmm (150-400) 01/26/19 05:40 MPV 7.7 fl 01/26/19 05:40 Neutrophils % 66.7 % (40.0-80.0) 01/26/19 05:40 Lymphocytes % 22.3 % (20.0-50.0) 01/26/19 05:40 Monocytes % 8.0 % (2.0-10.0) 01/26/19 05:40 Eosinophils % 2.5 % (0.0-5.0) 01/26/19 05:40 Basophils % 0.5 % (0.0-2.0) 01/26/19 05:40 PT 10.1 SECONDS (9.5-11.5) 01/23/19 02:00 INR 0.97 (0.5-1.4) 01/23/19 02:00 Sodium 138 mEq/L (136-145) 01/26/19 05:40 Potassium 4.2 mEq/L (3.5-5.1) 01/26/19 05:40 Chloride 106 mEq/L (98-107) 01/26/19 05:40 Carbon Dioxide 23.4 mEq/L (21.0-31.0) 01/26/19 05:40 Anion Gap 12.8 (7.0-16.0) 01/26/19 05:40 BUN 15 mg/dL (7-25) 01/26/19 05:40 Creatinine 0.3 mg/dL (0.6-1.2) L 01/26/19 05:40 Est GFR ( Amer) > 60.0 ml/min (>90) 01/26/19 05:40 Est GFR (Non-Af Amer) > 60.0 ml/min 01/26/19 05:40 BUN/Creatinine Ratio 50.0 01/26/19 05:40 Glucose 79 mg/dL (70-105) 01/26/19 05:40 POC Glucose 108 MG/DL (70 - 105) H 01/26/19 10:38 Whole Bld Lactic Acid 1.42 mmol/L (0.60-1.99) 01/23/19 02:00 Calcium 9.1 mg/dL (8.6-10.3) 01/26/19 05:40 Total Bilirubin 0.4 mg/dL (0.3-1.0) 01/23/19 02:00 AST 18 U/L (13-39) 01/23/19 02:00 ALT 40 U/L (7-52) 01/23/19 02:00 Alkaline Phosphatase 135 U/L (34-104) H 01/23/19 02:00 Creatine Kinase 36 U/L (30-223) 01/23/19 02:00 Troponin I < 0.01 ng/mL (0.01-0.05) L 01/23/19 02:00 B-Natriuretic Peptide 215.0 pg/mL (5.0-100.0) H 01/23/19 02:00 Total Protein 6.5 gm/dL (6.0-8.3) 01/23/19 02:00 Albumin 2.9 gm/dL (3.7-5.3) L 01/23/19 02:00 Globulin 3.6 gm/dL 01/23/19 02:00 Albumin/Globulin Ratio 0.8 (1.0-1.8) L 01/23/19 02:00 Triglycerides 120 mg/dL (<150) 01/23/19 02:00 Cholesterol 107 mg/dL (<200) 01/23/19 02:00 LDL Cholesterol Direct 66 mg/dL (75-193) L 01/23/19 02:00 HDL Cholesterol 29 mg/dL (23-92) 01/23/19 02:00 Urine Source CATH 01/23/19 02:20 Urine Color YELLOW 01/23/19 02:20 Urine Clarity CLEAR (CLEAR) 01/23/19 02:20 Urine pH 7.0 (4.6 - 8.0) 01/23/19 02:20 Ur Specific [place] 1.010 (1.005-1.030) 01/23/19 02:20 Urine Protein NEGATIVE mg/dL (NEGATIVE) 01/23/19 02:20 Urine Glucose (UA) NEGATIVE mg/dL (NEGATIVE) 01/23/19 02:20 Urine Ketones NEGATIVE mg/dL (NEGATIVE) 01/23/19 02:20 Urine Blood NEGATIVE (NEGATIVE) 01/23/19 02:20 Urine Nitrate NEGATIVE (NEGATIVE) 01/23/19 02:20 Urine Bilirubin NEGATIVE (NEGATIVE) 01/23/19 02:20 Urine Urobilinogen 0.2 E.U./dL (0.2 - 1.0) 01/23/19 02:20 Ur Leukocyte Esterase NEGATIVE (NEGATIVE) 01/23/19 02:20 - Physical Exam Vitals and I&O: Vital Signs Temp 97.8 F 01/26/19 08:00 Pulse 71 01/26/19 10:57 Resp 18 01/26/19 10:57 BP 153/76 01/26/19 08:00 Pulse Ox 96 01/26/19 10:57 Intake & Output 01/25/19 01/26/19 01/26/19 18:59 06:59 18:59 Intake Total 1150 250 Balance 1150 250 Weight (lbs) 41.277 kg 41.277 kg Intake: Intake, IV Amount 550 250 Azithromycin 500 mg In 250 Sodium Chloride 0.9% 250 ml @ 250 mls/hr IV Q24HR [facility] Rx#:[id number] Vancomycin HCl 0.75 gm In 250 250 Sodium Chloride 0.9% 250 ml @ 165 mls/hr IV Q12H [facility] Rx#:[id number] 1 gm In 50 Sodium Chloride 0.9% 50 ml @ 100 mls/hr IV Q24HR [facility] Rx#:[id number] Tube Feeding 600 Other: # Voids 2 2 # Bowel Movements 0 Stool Characteristics Soft Soft Weight Source Bedscale Bedscale Active Medications: Current Medications Acetaminophen (Tylenol) 650 mg GT Q6H PRN PRN Reason: mild pain Stop: 03/24/19 13:09 Last Admin: 01/23/19 22:20 Dose: 650 mg Al Hydrox/Mg Hydrox/Simethicone (Maalox) 30 ml GT Q6HR PRN PRN Reason: Abdominal Pain Stop: 03/24/19 13:09 Albuterol Sulfate (Albuterol 2.5mg/3ml Neb Ud) 2.5 mg HHN Q2HR PRN PRN Reason: Shortness of Breath Stop: 03/24/19 13:09 Albuterol Sulfate (Albuterol 2.5mg/3ml Neb Ud) 2.5 mg HHN [id number] [facility] Stop: 03/24/19 14:59 Last Admin: 01/26/19 10:54 Dose: 2.5 mg Ascorbic Acid (Vitamin C) 500 mg GT Q12HR [facility] Stop: 03/24/19 20:59 Last Admin: 01/26/19 08:50 Dose: 500 mg Bisacodyl (Dulcolax 10 Mg Supp) 10 mg RC DAILY PRN PRN Reason: Constipation Stop: 03/24/19 13:09 Budesonide (Pulmicort) 0.5 mg HHN BID [facility] Stop: 03/24/19 16:59 Last Admin: 01/26/19 07:24 Dose: 0.5 mg Carvedilol (Coreg) 6.25 mg GT Q12H [facility] Stop: 03/24/19 13:14 Last Admin: 01/26/19 01:23 Dose: Not Given [place] Oil/[place] Balsam/Trypsin (Venelex) 1 appl TP DAILY [facility] Stop: 03/25/19 08:59 Last Admin: 01/26/19 08:50 Dose: 1 appl Dextrose (Glutose 40%) 18.75 gm PO UD PRN PRN Reason: Blood Glucose less than 70 Stop: 03/24/19 13:09 Docusate Sodium (Colace) 200 mg GT Q12H PRN PRN Reason: Constipation Stop: 03/24/19 13:09 Ferrous Sulfate (Iron) 325 mg PO DAILY [facility] Stop: 03/25/19 08:59 Last Admin: 01/26/19 08:50 Dose: 325 mg Glucagon (Glucagen) 1 mg IM PRN PRN PRN Reason: Blood Glucose less than 70 Stop: 03/24/19 13:09 Heparin Sodium (Porcine) (Heparin) 5,000 units SUBQ Q12H [facility] Stop: 03/24/19 13:14 Last Admin: 01/26/19 01:10 Dose: 5,000 units Azithromycin 500 mg/ Sodium (Chloride) 250 mls @ 250 mls/hr IV Q24HR [facility] Stop: 03/24/19 09:44 Last Admin: 01/26/19 09:25 Dose: 250 mls/hr Ceftriaxone Sodium 1 gm/ (Sodium Chloride) 50 mls @ 100 mls/hr IV Q24HR [facility] Stop: 03/24/19 09:44 Last Admin: 01/26/19 09:25 Dose: 100 mls/hr Vancomycin HCl 0.75 gm/ Sodium (Chloride) 250 mls @ 165 mls/hr IV Q12H [facility] Stop: 03/26/19 00:59 Last Infusion: 01/26/19 02:57 Dose: Infused Dextrose/Sodium Chloride (D5-0.45ns) 1,000 mls @ 50 mls/hr IV .Q20H [facility] Stop: 03/26/19 22:14 Last Admin: 01/25/19 22:11 Dose: 50 mls/hr Insulin Human Lispro (Humalog Insulin Sliding Scale) 0 units SUBQ Q12HR [facility]; Protocol Stop: 03/24/19 20:59 Last Admin: 01/26/19 11:07 Dose: Not Given Lactobacillus Rhamnosus (Culturelle 15b) 1 each PO DAILY [facility] Stop: 03/25/19 08:59 Last Admin: 01/26/19 08:50 Dose: 1 each Lorazepam (Ativan) 1 mg GT Q6H PRN; Protocol PRN Reason: Anxiety Stop: 03/24/19 13:09 Last Admin: 01/25/19 05:53 Dose: 1 mg Magnesium Hydroxide (Milk Of Magnesia) 30 ml GT HS PRN PRN Reason: Constipation Stop: 03/24/19 13:09 Miscellaneous (Vancomycin Iv Per Pharmacy) 1 ea MC PRN PRN PRN Reason: PROTOCOL Stop: 03/24/19 10:40 Miscellaneous (Probiotic Screen) 1 ea PRN PRN PRN Reason: PROTOCOL Stop: 03/25/19 14:19 Pantoprazole Sodium (Protonix) 40 mg IVP DAILY [facility] Stop: 03/25/19 08:59 Last Admin: 01/26/19 08:51 Dose: 40 mg Sodium Phosphate (Fleet Enema) 135 ml RC Q48HR PRN PRN Reason: Constipation Stop: 03/24/19 13:09 Physical Exam: 58 y/o female patient recently had a fall, possible syncope. General: weak, alert HEENT: NC/AT Neck: + trach Lungs: other (Respiratory failure, stable.) Cardiovascular: RRR, Normal S1 Abdomen: +GT Extremities: clear Neurological: muscle weakness, unsteady - Procedures Procedures: Procedures Procedure Code Date INSERTION OF FEEDING DEVICE INTO STOMACH, PERC APPROACH [id number] 01/02/19 INSERTION OF INFUSION DEVICE INTO R LOW ARM, PERC APPROACH [id number] 01/02/19 INTRODUCTION OF NUTRITIONAL INTO PERIPH VEIN, PERC APPROACH [id number] 01/02/19 RESPIRATORY VENTILATION, LESS THAN 24 CONSECUTIVE HOURS [id number] 04/07/18 Internal Medicine Assmt/Plan - Assessment Assessment: S/p fall. Chronic Respiratory Failure. Hypertension. Diabetes. CAD. Copd. Dyslipidemia. Gerd. S/p trach and PEG. Nutritional Asmnt/Malnutr-PDOC - Dietary Evaluation Malnutrition Findings (Please click <Entered> for more info): Nutritional Asmnt/Malnutrition Start: 01/24/19 17: 26 Text: Status: Complete Freq: Protocol: Document 01/24/19 17:27 LCHENG (Rec: 01/24/19 17:49 [email or web address]) Nutritional Asmnt/Malnutrition Patient General Information Nutritional Screening High Risk Consult Diagnosis falls and weakness Pertinent Medical Hx/Surgical Hx HTN, DM, CAD, asthma/COPD, dyslipidemia, PUD/GERD, PEG/ Gtube Subjective Information Pt seen resting in bed at time of visit. Spoke with RN yesterday regarding TF regimen . Current Diet Order/ Nutrition Support Jevity 1.2 at 60ml/hr x 20hr Pertinent Medications vitC, colace, iron, heparin, humalog, culturelle Pertinent Labs 01/24 Cr 0.4, Glucose 99, POC 67-83 Nutritional Hx/Data Height 1.63 m Height (Calculated Centimeters) 162.6 Current Weight (lbs) 41.277 kg Weight (Calculated Kilograms) 41.3 Weight (Calculated Grams) 07926.9 [place] Body Weight 120 Body Mass Index (BMI) 15.6 Weight Status Underweight GI Symptoms GI Symptoms None Last BM none Difficult in: None Estimated Nutritional Goals Calories/Kcals/Kg 25-30 IBW 55kg Kcals Calculated 3875-1542 Protein g/k-1.2 Protein Calculated 55-66 Fluid: ml 1265-1485ml (1ml/kcal) Nutritional Problem No current Nutrition Prob Problem N/A Intervention/Recommendation Comments 1. Continue with current TF regimen Jevity 1.2 at 60ml/hr x 20hr. It provides 1440kcal, 67g protein, 968ml free water, meeting 100% of nutritional needs 2. Monitor TF rate, tolerance, wt, skin integrity and labs 3. F/U as low risk in 7 days Expected Outcomes/Goals Expected Outcomes/Goals 1. Pt to meet at least 90% of nutritional needs via nutrition support with tolerance 2. Wt stability, skin to remain intact, labs to approach WNL.
[2019-01-27] MEDS: D5-0.45NS 1,000 ML IV SCH (06:50)
[2019-01-27 06:55] LABS: % BASOPHILS 0.8 % (0.0-2.0); % EOSINOPHILS 1.5 % (0.0-5.0); % LYMPHOCYTES 16.6 % (20.0-50.0); % MONOCYTES 7.4 % (2.0-10.0); % NEUTROPHILS 73.7 % (40.0-80.0); EOSINOPHILE ABSOLUTE 0.1 Th/cmm (0.1-0.4); HEMATOCRIT 28.5 % (41.0-60); HEMOGLOBIN 9.6 gm/dL (12-16); LYMPHOCYTE ABSOLUTE 0.9 Th/cmm (1.5-3.0); MEAN CELL VOLUME 94.7 fl (81-100); MEAN CORPUSCULAR HGB CONC 33.8 pg (28.0-36.0); MEAN PLATELET VOLUME 8.1 fl; MONOCYTE ABSOLUTE 0.4 Th/cmm (0.3-1.0); NEUTROPHILE ABSOLUTE 4.2 Th/cmm (1.8-8.0); PLATELET COUNT 250 Th/cmm (150-400); RED BLOOD COUNT 3.01 Mil/cmm (3.80-5.10); RED CELL DISTRIBUTION WIDTH 14.9 % (11.5-20.0); WHITE BLOOD COUNT 5.6 Th/cmm (4.8-10.8)
[2019-01-27] MEDS: Albuterol Nebulizer 2.5mg/3mL HHN SCH ×4 (07:10→19:15)
[2019-01-27 07:13] LABS: ALB/GLOB RATIO 0.8 (1.0-1.8); ALBUMIN 2.8 gm/dL (3.7-5.3); ALKALINE PHOSPHATASE 129 U/L (34-104); ANION GAP 11.6 (7.0-16.0); BILIRUBIN,TOTAL 0.3 mg/dL (0.3-1.0); BUN - UREA NITROGEN 14 mg/dL (7-25); CARBON DIOXIDE 27.2 mEq/L (21.0-31.0); CHLORIDE 105 mEq/L (98-107); CREATININE - SERUM 0.3 mg/dL (0.6-1.2); GFR AFRICAN-AMERICAN > 60.0 ml/min (>90); GFR NON AFRICAN-AMERICAN > 60.0 ml/min; GLUCOSE 107 mg/dL (70-105); POTASSIUM SERUM 3.8 mEq/L (3.5-5.1); SGOT 24 U/L (13-39); SGPT/ALT 37 U/L (7-52); SODIUM SERUM 140 mEq/L (136-145); TOTAL PROTEIN,SERUM 6.5 gm/dL (6.0-8.3)
[2019-01-27] MEDS: Budesonide 0.5 Mg/2 mL Ud HHN SCH ×3 (08:44→19:22)
[2019-01-27] MEDS: Venelex 60gm Tube TP SCH (09:14)
[2019-01-27] MEDS: Lactobacillus Rhamnosus GG 15 Billion CFU CAP.SPRINK PO SCH (09:14)
[2019-01-27] MEDS: Ferrous Sulfate 325 MG TAB PO SCH (09:14)
[2019-01-27] MEDS: Multivitamin w/ Minerals Tab GT SCH (09:14)
[2019-01-27] MEDS: INSULIN LISPRO SLIDING SCALE 100 UNITS/ML UNIT SUBQ SCH ×2 (09:19→21:45)
--- NOTE | 2019-01-27 09:23 | Progress Notes ---
DATE: 01/26/2019 PULMONARY PROGRESS NOTE SUBJECTIVE: The patient appears to be doing okay. OBJECTIVE: GENERAL: No distress. VITAL SIGNS: Temperature is 97.3, pulse 67, respiration 18, blood pressure 128/72, saturation 99%. CHEST: Good breath sounds. No wheezing or crackles. HEART: Regular rate and rhythm. ABDOMEN: Soft. No tenderness. EXTREMITIES: There is no edema. LABORATORY AND DIAGNOSTIC DATA: WBC is 4.5, hemoglobin 10.2, hematocrit 30.6, platelets are 234. Sodium 138, potassium 4.2, BUN 17, creatinine 0.3. IMPRESSION: 1. Respiratory failure. 2. Pneumonia. 3. Dysphagia and weakness. 4. Chronic obstructive pulmonary disease. PLAN: Continue nebulizer treatment, pulmonary toilet, supportive care and nutritional support. JOB# [id number]
[2019-01-27] MEDS: cefTRIAXone 1 GM in Sodium Chloride 0.9% 50 ML IV SCH (09:47)
[2019-01-27] MEDS: Azithromycin 500 MG in Sodium Chloride 0.9% 250 ML IV SCH (09:47)
--- NOTE | 2019-01-27 10:08 | Internal Medicine Prog Note ---
Internal Medicine Subjective - Subjective Service Date: 01/27/19 Patient seen and examined:: chart reviewed Patient is:: awake, in bed Patient Complaints of:: other (generalized pain (3) , respiratory failure, stable, s/p decannulation.) Per staff patient has:: no adverse event Internal Medicine Objective - Results Result Diagrams: 01/27/19 06:00 01/27/19 06:00 Recent Labs: Laboratory Last Values WBC 5.6 Th/cmm (4.8-10.8) 01/27/19 06:00 RBC 3.01 Mil/cmm (3.80-5.10) L 01/27/19 06:00 Hgb 9.6 gm/dL (12-16) L 01/27/19 06:00 Hct 28.5 % (41.0-60) L 01/27/19 06:00 MCV 94.7 fl (81-100) 01/27/19 06:00 MCH 32.0 pg (27.0-31.0) H 01/27/19 06:00 MCHC Differential 33.8 pg (28.0-36.0) 01/27/19 06:00 RDW 14.9 % (11.5-20.0) 01/27/19 06:00 Plt Count 250 Th/cmm (150-400) 01/27/19 06:00 MPV 8.1 fl 01/27/19 06:00 Neutrophils % 73.7 % (40.0-80.0) 01/27/19 06:00 Lymphocytes % 16.6 % (20.0-50.0) L 01/27/19 06:00 Monocytes % 7.4 % (2.0-10.0) 01/27/19 06:00 Eosinophils % 1.5 % (0.0-5.0) 01/27/19 06:00 Basophils % 0.8 % (0.0-2.0) 01/27/19 06:00 PT 10.1 SECONDS (9.5-11.5) 01/23/19 02:00 INR 0.97 (0.5-1.4) 01/23/19 02:00 Sodium 140 mEq/L (136-145) 01/27/19 06:00 Potassium 3.8 mEq/L (3.5-5.1) 01/27/19 06:00 Chloride 105 mEq/L (98-107) 01/27/19 06:00 Carbon Dioxide 27.2 mEq/L (21.0-31.0) 01/27/19 06:00 Anion Gap 11.6 (7.0-16.0) 01/27/19 06:00 BUN 14 mg/dL (7-25) 01/27/19 06:00 Creatinine 0.3 mg/dL (0.6-1.2) L 01/27/19 06:00 Est GFR ( Amer) > 60.0 ml/min (>90) 01/27/19 06:00 Est GFR (Non-Af Amer) > 60.0 ml/min 01/27/19 06:00 BUN/Creatinine Ratio 46.7 01/27/19 06:00 Glucose 107 mg/dL (70-105) H 01/27/19 06:00 POC Glucose 105 MG/DL (70 - 105) 01/27/19 09:16 Whole Bld Lactic Acid 1.42 mmol/L (0.60-1.99) 01/23/19 02:00 Calcium 9.0 mg/dL (8.6-10.3) 01/27/19 06:00 Total Bilirubin 0.3 mg/dL (0.3-1.0) 01/27/19 06:00 AST 24 U/L (13-39) 01/27/19 06:00 ALT 37 U/L (7-52) 01/27/19 06:00 Alkaline Phosphatase 129 U/L (34-104) H 01/27/19 06:00 Creatine Kinase 36 U/L (30-223) 01/23/19 02:00 Troponin I < 0.01 ng/mL (0.01-0.05) L 01/23/19 02:00 B-Natriuretic Peptide 215.0 pg/mL (5.0-100.0) H 01/23/19 02:00 Total Protein 6.5 gm/dL (6.0-8.3) 01/27/19 06:00 Albumin 2.8 gm/dL (3.7-5.3) L 01/27/19 06:00 Globulin 3.7 gm/dL 01/27/19 06:00 Albumin/Globulin Ratio 0.8 (1.0-1.8) L 01/27/19 06:00 Triglycerides 120 mg/dL (<150) 01/23/19 02:00 Cholesterol 107 mg/dL (<200) 01/23/19 02:00 LDL Cholesterol Direct 66 mg/dL (75-193) L 01/23/19 02:00 HDL Cholesterol 29 mg/dL (23-92) 01/23/19 02:00 Urine Source CATH 01/23/19 02:20 Urine Color YELLOW 01/23/19 02:20 Urine Clarity CLEAR (CLEAR) 01/23/19 02:20 Urine pH 7.0 (4.6 - 8.0) 01/23/19 02:20 Ur Specific [place] 1.010 (1.005-1.030) 01/23/19 02:20 Urine Protein NEGATIVE mg/dL (NEGATIVE) 01/23/19 02:20 Urine Glucose (UA) NEGATIVE mg/dL (NEGATIVE) 01/23/19 02:20 Urine Ketones NEGATIVE mg/dL (NEGATIVE) 01/23/19 02:20 Urine Blood NEGATIVE (NEGATIVE) 01/23/19 02:20 Urine Nitrate NEGATIVE (NEGATIVE) 01/23/19 02:20 Urine Bilirubin NEGATIVE (NEGATIVE) 01/23/19 02:20 Urine Urobilinogen 0.2 E.U./dL (0.2 - 1.0) 01/23/19 02:20 Ur Leukocyte Esterase NEGATIVE (NEGATIVE) 01/23/19 02:20 Vancomycin Trough 17.1 ug/mL (5-10) H 01/26/19 12:05 - Physical Exam Vitals and I&O: Vital Signs Temp 97.3 F 01/27/19 08:00 Pulse 82 01/27/19 08:44 Resp 18 01/27/19 08:44 BP 128/82 01/27/19 08:00 Pulse Ox 95 01/27/19 08:44 Intake & Output 01/26/19 01/27/19 01/27/19 18:59 06:59 18:59 Intake Total 2089 1029 Balance 2089 1029 Weight (lbs) 41.277 kg 41.277 kg Intake: Intake, IV Amount 1550 250 Azithromycin 500 mg In 250 Sodium Chloride 0.9% 250 ml @ 250 mls/hr IV Q24HR [facility] Rx#:[id number] D5-0.45NS 1,000 ml @ 50 1000 mls/hr IV .Q20H [facility] Rx#: [id number] Vancomycin HCl 0.75 gm In 250 250 Sodium Chloride 0.9% 250 ml @ 165 mls/hr IV Q12H [facility] Rx#:[id number] cefTRIAXone 1 gm In 50 Sodium Chloride 0.9% 50 ml @ 100 mls/hr IV Q24HR [facility] Rx#:[id number] Tube Feeding 540 780 Other: # Voids 2 2 Stool Characteristics Soft Soft Weight Source Bedscale Bedscale Active Medications: Current Medications Acetaminophen (Tylenol) 650 mg GT Q6H PRN PRN Reason: mild pain Stop: 03/24/19 13:09 Last Admin: 01/27/19 09:14 Dose: 650 mg Al Hydrox/Mg Hydrox/Simethicone (Maalox) 30 ml GT Q6HR PRN PRN Reason: Abdominal Pain Stop: 03/24/19 13:09 Albuterol Sulfate (Albuterol 2.5mg/3ml Neb Ud) 2.5 mg HHN Q2HR PRN PRN Reason: Shortness of Breath Stop: 03/24/19 13:09 Albuterol Sulfate (Albuterol 2.5mg/3ml Neb Ud) 2.5 mg HHN [id number] [facility] Stop: 03/24/19 14:59 Last Admin: 01/27/19 07:10 Dose: 2.5 mg Ascorbic Acid (Vitamin C) 500 mg GT Q12HR [facility] Stop: 03/24/19 20:59 Last Admin: 01/27/19 09:13 Dose: 500 mg Bisacodyl (Dulcolax 10 Mg Supp) 10 mg RC DAILY PRN PRN Reason: Constipation Stop: 03/24/19 13:09 Budesonide (Pulmicort) 0.5 mg HHN BID [facility] Stop: 03/24/19 16:59 Last Admin: 01/27/19 08:44 Dose: 0.5 mg Carvedilol (Coreg) 6.25 mg GT Q12H [facility] Stop: 03/24/19 13:14 Last Admin: 01/27/19 01:40 Dose: 6.25 mg [place] Oil/[place] Balsam/Trypsin (Venelex) 1 appl TP DAILY [facility] Stop: 03/25/19 08:59 Last Admin: 01/27/19 09:14 Dose: 1 appl Dextrose (Glutose 40%) 18.75 gm PO UD PRN PRN Reason: Blood Glucose less than 70 Stop: 03/24/19 13:09 Docusate Sodium (Colace) 200 mg GT Q12H PRN PRN Reason: Constipation Stop: 03/24/19 13:09 Ferrous Sulfate (Iron) 325 mg PO DAILY [facility] Stop: 03/25/19 08:59 Last Admin: 01/27/19 09:14 Dose: 325 mg Glucagon (Glucagen) 1 mg IM PRN PRN PRN Reason: Blood Glucose less than 70 Stop: 03/24/19 13:09 Heparin Sodium (Porcine) (Heparin) 5,000 units SUBQ Q12H [facility] Stop: 03/24/19 13:14 Last Admin: 01/27/19 01:39 Dose: 5,000 units Azithromycin 500 mg/ Sodium (Chloride) 250 mls @ 250 mls/hr IV Q24HR [facility] Stop: 03/24/19 09:44 Last Admin: 01/27/19 09:47 Dose: 250 mls/hr Ceftriaxone Sodium 1 gm/ (Sodium Chloride) 50 mls @ 100 mls/hr IV Q24HR [facility] Stop: 03/24/19 09:44 Last Admin: 01/27/19 09:47 Dose: 100 mls/hr Vancomycin HCl 0.75 gm/ Sodium (Chloride) 250 mls @ 165 mls/hr IV Q12H [facility] Stop: 03/26/19 00:59 Last Infusion: 01/27/19 03:30 Dose: Infused Dextrose/Sodium Chloride (D5-0.45ns) 1,000 mls @ 50 mls/hr IV .Q20H [facility] Stop: 03/26/19 22:14 Last Admin: 01/27/19 06:50 Dose: 50 mls/hr Insulin Human Lispro (Humalog Insulin Sliding Scale) 0 units SUBQ Q12HR [facility]; Protocol Stop: 03/24/19 20:59 Last Admin: 01/27/19 09:19 Dose: Not Given Lactobacillus Rhamnosus (Culturelle 15b) 1 each PO DAILY [facility] Stop: 03/25/19 08:59 Last Admin: 01/27/19 09:14 Dose: 1 each Lorazepam (Ativan) 1 mg GT Q6H PRN; Protocol PRN Reason: Anxiety Stop: 03/24/19 13:09 Last Admin: 01/27/19 06:49 Dose: 1 mg Magnesium Hydroxide (Milk Of Magnesia) 30 ml GT HS PRN PRN Reason: Constipation Stop: 03/24/19 13:09 Miscellaneous (Vancomycin Iv Per Pharmacy) 1 ea MC PRN PRN PRN Reason: PROTOCOL Stop: 03/24/19 10:40 Miscellaneous (Probiotic Screen) 1 ea MC PRN PRN PRN Reason: PROTOCOL Stop: 03/25/19 14:19 Pantoprazole Sodium (Protonix) 40 mg IVP DAILY [facility] Stop: 03/25/19 08:59 Last Admin: 01/27/19 09:14 Dose: 40 mg Sodium Phosphate (Fleet Enema) 135 ml RC Q48HR PRN PRN Reason: Constipation Stop: 03/24/19 13:09 Physical Exam: 58 y/o female patient recently had a fall, possible syncope. General: weak, alert HEENT: NC/AT Neck: + trach Lungs: other (Respiratory failure, stable.) Cardiovascular: RRR, Normal S1 Abdomen: +GT Extremities: clear Neurological: muscle weakness, unsteady - Procedures Procedures: Procedures Procedure Code Date INSERTION OF FEEDING DEVICE INTO STOMACH, PERC APPROACH [id number] 01/02/19 INSERTION OF INFUSION DEVICE INTO R LOW ARM, PERC APPROACH [id number] 01/02/19 INTRODUCTION OF NUTRITIONAL INTO PERIPH VEIN, PERC APPROACH [id number] 01/02/19 RESPIRATORY VENTILATION, LESS THAN 24 CONSECUTIVE HOURS [id number] 04/07/18 Internal Medicine Assmt/Plan - Assessment Assessment: S/p fall. Chronic Respiratory Failure. Hypertension. Diabetes. CAD. Copd. Dyslipidemia. Gerd. S/p trach and PEG. Nutritional Asmnt/Malnutr-PDOC - Dietary Evaluation Malnutrition Findings (Please click <Entered> for more info): Nutritional Asmnt/Malnutrition Start: 01/24/19 17: 26 Text: Status: Complete Freq: Protocol: Document 01/24/19 17:27 LCANMOLG (Rec: 01/24/19 17:49 [email or web address]) Nutritional Asmnt/Malnutrition Patient General Information Nutritional Screening High Risk Consult Diagnosis falls and weakness Pertinent Medical Hx/Surgical Hx HTN, DM, CAD, asthma/COPD, dyslipidemia, PUD/GERD, PEG/ Gtube Subjective Information Pt seen resting in bed at time of visit. Spoke with RN yesterday regarding TF regimen . Current Diet Order/ Nutrition Support Jevity 1.2 at 60ml/hr x 20hr Pertinent Medications vitC, colace, iron, heparin, humalog, culturelle Pertinent Labs 01/24 Cr 0.4, Glucose 99, POC 67-83 Nutritional Hx/Data Height 1.63 m Height (Calculated Centimeters) 162.6 Current Weight (lbs) 41.277 kg Weight (Calculated Kilograms) 41.3 Weight (Calculated Grams) 82594.9 [place] Body Weight 120 Body Mass Index (BMI) 15.6 Weight Status Underweight GI Symptoms GI Symptoms None Last BM none Difficult in: None Estimated Nutritional Goals Calories/Kcals/Kg 25-30 IBW 55kg Kcals Calculated 4521-9576 Protein g/k-1.2 Protein Calculated 55-66 Fluid: ml 1265-1485ml (1ml/kcal) Nutritional Problem No current Nutrition Prob Problem N/A Intervention/Recommendation Comments 1. Continue with current TF regimen Jevity 1.2 at 60ml/hr x 20hr. It provides 1440kcal, 67g protein, 968ml free water, meeting 100% of nutritional needs 2. Monitor TF rate, tolerance, wt, skin integrity and labs 3. F/U as low risk in 7 days Expected Outcomes/Goals Expected Outcomes/Goals 1. Pt to meet at least 90% of nutritional needs via nutrition support with tolerance 2. Wt stability, skin to remain intact, labs to approach WNL.
[2019-01-28] MEDS: Budesonide 0.5 Mg/2 mL Ud HHN SCH ×3 (07:08→18:56)
[2019-01-28] MEDS: Albuterol Nebulizer 2.5mg/3mL HHN SCH ×4 (07:08→19:00)
--- NOTE | 2019-01-28 07:10 | Infectious Disease Prog Note ---
Infectious Disease Subjective - Review of Systems Service Date: 01/28/19 Subjective: There is no new change, no fever. Infectious Disease Objective - Results Result Diagrams: 01/27/19 06:00 01/27/19 06:00 Recent Labs: Laboratory Last Values WBC 5.6 Th/cmm (4.8-10.8) 01/27/19 06:00 RBC 3.01 Mil/cmm (3.80-5.10) L 01/27/19 06:00 Hgb 9.6 gm/dL (12-16) L 01/27/19 06:00 Hct 28.5 % (41.0-60) L 01/27/19 06:00 MCV 94.7 fl (81-100) 01/27/19 06:00 MCH 32.0 pg (27.0-31.0) H 01/27/19 06:00 MCHC Differential 33.8 pg (28.0-36.0) 01/27/19 06:00 RDW 14.9 % (11.5-20.0) 01/27/19 06:00 Plt Count 250 Th/cmm (150-400) 01/27/19 06:00 MPV 8.1 fl 01/27/19 06:00 Neutrophils % 73.7 % (40.0-80.0) 01/27/19 06:00 Lymphocytes % 16.6 % (20.0-50.0) L 01/27/19 06:00 Monocytes % 7.4 % (2.0-10.0) 01/27/19 06:00 Eosinophils % 1.5 % (0.0-5.0) 01/27/19 06:00 Basophils % 0.8 % (0.0-2.0) 01/27/19 06:00 PT 10.1 SECONDS (9.5-11.5) 01/23/19 02:00 INR 0.97 (0.5-1.4) 01/23/19 02:00 Sodium 140 mEq/L (136-145) 01/27/19 06:00 Potassium 3.8 mEq/L (3.5-5.1) 01/27/19 06:00 Chloride 105 mEq/L (98-107) 01/27/19 06:00 Carbon Dioxide 27.2 mEq/L (21.0-31.0) 01/27/19 06:00 Anion Gap 11.6 (7.0-16.0) 01/27/19 06:00 BUN 14 mg/dL (7-25) 01/27/19 06:00 Creatinine 0.3 mg/dL (0.6-1.2) L 01/27/19 06:00 Est GFR ( Amer) > 60.0 ml/min (>90) 01/27/19 06:00 Est GFR (Non-Af Amer) > 60.0 ml/min 01/27/19 06:00 BUN/Creatinine Ratio 46.7 01/27/19 06:00 Glucose 107 mg/dL (70-105) H 01/27/19 06:00 POC Glucose 80 MG/DL (70 - 105) 01/27/19 21:58 Whole Bld Lactic Acid 1.42 mmol/L (0.60-1.99) 01/23/19 02:00 Calcium 9.0 mg/dL (8.6-10.3) 01/27/19 06:00 Total Bilirubin 0.3 mg/dL (0.3-1.0) 01/27/19 06:00 AST 24 U/L (13-39) 01/27/19 06:00 ALT 37 U/L (7-52) 01/27/19 06:00 Alkaline Phosphatase 129 U/L (34-104) H 01/27/19 06:00 Creatine Kinase 36 U/L (30-223) 01/23/19 02:00 Troponin I < 0.01 ng/mL (0.01-0.05) L 01/23/19 02:00 B-Natriuretic Peptide 215.0 pg/mL (5.0-100.0) H 01/23/19 02:00 Total Protein 6.5 gm/dL (6.0-8.3) 01/27/19 06:00 Albumin 2.8 gm/dL (3.7-5.3) L 01/27/19 06:00 Globulin 3.7 gm/dL 01/27/19 06:00 Albumin/Globulin Ratio 0.8 (1.0-1.8) L 01/27/19 06:00 Triglycerides 120 mg/dL (<150) 01/23/19 02:00 Cholesterol 107 mg/dL (<200) 01/23/19 02:00 LDL Cholesterol Direct 66 mg/dL (75-193) L 01/23/19 02:00 HDL Cholesterol 29 mg/dL (23-92) 01/23/19 02:00 Urine Source CATH 01/23/19 02:20 Urine Color YELLOW 01/23/19 02:20 Urine Clarity CLEAR (CLEAR) 01/23/19 02:20 Urine pH 7.0 (4.6 - 8.0) 01/23/19 02:20 Ur Specific [place] 1.010 (1.005-1.030) 01/23/19 02:20 Urine Protein NEGATIVE mg/dL (NEGATIVE) 01/23/19 02:20 Urine Glucose (UA) NEGATIVE mg/dL (NEGATIVE) 01/23/19 02:20 Urine Ketones NEGATIVE mg/dL (NEGATIVE) 01/23/19 02:20 Urine Blood NEGATIVE (NEGATIVE) 01/23/19 02:20 Urine Nitrate NEGATIVE (NEGATIVE) 01/23/19 02:20 Urine Bilirubin NEGATIVE (NEGATIVE) 01/23/19 02:20 Urine Urobilinogen 0.2 E.U./dL (0.2 - 1.0) 01/23/19 02:20 Ur Leukocyte Esterase NEGATIVE (NEGATIVE) 01/23/19 02:20 Vancomycin Trough 17.1 ug/mL (5-10) H 01/26/19 12:05 - Physical Exam Vitals and I&O: Vital Signs Temp 98.3 F 01/28/19 04:00 Pulse 61 01/28/19 04:00 Resp 18 01/28/19 06:00 BP 130/74 01/28/19 04:00 Pulse Ox 99 01/28/19 04:00 Intake & Output 01/27/19 01/28/19 01/28/19 18:59 06:59 18:59 Intake Total 880 720 Balance 880 720 Weight (lbs) 41.957 kg 41.73 kg Intake: Intake, IV Amount 250 Vancomycin HCl 0.75 gm In 250 Sodium Chloride 0.9% 250 ml @ 165 mls/hr IV Q12H [facility] Rx#:[id number] Oral 0 0 Tube Feeding 360 720 Other 270 Other: # Voids 3 4 # Bowel Movements 1 0 Stool Characteristics Soft Soft Brown Brown Black Black Weight Source Bedscale Bedscale Active Medications: Current Medications Acetaminophen (Tylenol) 650 mg GT Q6H PRN PRN Reason: mild pain Stop: 03/24/19 13:09 Last Admin: 01/27/19 23:15 Dose: 650 mg Al Hydrox/Mg Hydrox/Simethicone (Maalox) 30 ml GT Q6HR PRN PRN Reason: Abdominal Pain Stop: 03/24/19 13:09 Albuterol Sulfate (Albuterol 2.5mg/3ml Neb Ud) 2.5 mg HHN Q2HR PRN PRN Reason: Shortness of Breath Stop: 03/24/19 13:09 Albuterol Sulfate (Albuterol 2.5mg/3ml Neb Ud) 2.5 mg HHN [id number] [facility] Stop: 03/24/19 14:59 Last Admin: 01/27/19 19:15 Dose: 2.5 mg Ascorbic Acid (Vitamin C) 500 mg GT Q12HR [facility] Stop: 03/24/19 20:59 Last Admin: 01/28/19 01:41 Dose: 500 mg Bisacodyl (Dulcolax 10 Mg Supp) 10 mg RC DAILY PRN PRN Reason: Constipation Stop: 03/24/19 13:09 Budesonide (Pulmicort) 0.5 mg HHN BID [facility] Stop: 03/24/19 16:59 Last Admin: 01/27/19 19:20 Dose: 0.5 mg Carvedilol (Coreg) 6.25 mg GT Q12H [facility] Stop: 03/24/19 13:14 Last Admin: 01/28/19 01:17 Dose: 6.25 mg [place] Oil/[place] Balsam/Trypsin (Venelex) 1 appl TP DAILY [facility] Stop: 03/25/19 08:59 Last Admin: 01/27/19 09:14 Dose: 1 appl Dextrose (Glutose 40%) 18.75 gm PO UD PRN PRN Reason: Blood Glucose less than 70 Stop: 03/24/19 13:09 Docusate Sodium (Colace) 200 mg GT Q12H PRN PRN Reason: Constipation Stop: 03/24/19 13:09 Ferrous Sulfate (Iron) 325 mg PO DAILY [facility] Stop: 03/25/19 08:59 Last Admin: 01/27/19 09:14 Dose: 325 mg Glucagon (Glucagen) 1 mg IM PRN PRN PRN Reason: Blood Glucose less than 70 Stop: 03/24/19 13:09 Heparin Sodium (Porcine) (Heparin) 5,000 units SUBQ Q12H [facility] Stop: 03/24/19 13:14 Last Admin: 01/28/19 01:16 Dose: 5,000 units Azithromycin 500 mg/ Sodium (Chloride) 250 mls @ 250 mls/hr IV Q24HR [facility] Stop: 03/24/19 09:44 Last Admin: 01/27/19 09:47 Dose: 250 mls/hr Ceftriaxone Sodium 1 gm/ (Sodium Chloride) 50 mls @ 100 mls/hr IV Q24HR [facility] Stop: 03/24/19 09:44 Last Admin: 01/27/19 09:47 Dose: 100 mls/hr Vancomycin HCl 0.75 gm/ Sodium (Chloride) 250 mls @ 165 mls/hr IV Q12H [facility] Stop: 03/26/19 00:59 Last Admin: 01/28/19 01:17 Dose: 165 mls/hr Dextrose/Sodium Chloride (D5-0.45ns) 1,000 mls @ 50 mls/hr IV .Q20H [facility] Stop: 03/26/19 22:14 Last Admin: 01/27/19 06:50 Dose: 50 mls/hr Insulin Human Lispro (Humalog Insulin Sliding Scale) 0 units SUBQ Q12HR [facility]; Protocol Stop: 03/24/19 20:59 Last Admin: 01/27/19 21:45 Dose: Not Given Lactobacillus Rhamnosus (Culturelle 15b) 1 each PO DAILY [facility] Stop: 03/25/19 08:59 Last Admin: 01/27/19 09:14 Dose: 1 each Lorazepam (Ativan) 1 mg GT Q6H PRN; Protocol PRN Reason: Anxiety Stop: 03/24/19 13:09 Last Admin: 01/27/19 15:54 Dose: 1 mg Magnesium Hydroxide (Milk Of Magnesia) 30 ml GT HS PRN PRN Reason: Constipation Stop: 03/24/19 13:09 Miscellaneous (Vancomycin Iv Per Pharmacy) 1 ea MC PRN PRN PRN Reason: PROTOCOL Stop: 03/24/19 10:40 Miscellaneous (Probiotic Screen) 1 ea MC PRN PRN PRN Reason: PROTOCOL Stop: 03/25/19 14:19 Pantoprazole Sodium (Protonix) 40 mg IVP DAILY [facility] Stop: 03/25/19 08:59 Last Admin: 01/27/19 09:14 Dose: 40 mg Sodium Phosphate (Fleet Enema) 135 ml RC Q48HR PRN PRN Reason: Constipation Stop: 03/24/19 13:09 General: no acute distress, cachectic HEENT: atraumatic, normocephalic, PERRLA, EOMI Neck: supple, no thyromegaly, no lymphadenopathy Cardiovascular: S1S2, regular Lungs: clear to auscultation bilaterally, clear to percussion Abdomen: soft, no tender, no distended, no mass, no hepatomegaly, no splenomegaly, no ascites Extremities: no cyanosis, no clubbing, no edema Neurological: awake, alert, other (confused.) - Procedures Procedures: Procedures Procedure Code Date INSERTION OF FEEDING DEVICE INTO STOMACH, PERC APPROACH [id number] 01/02/19 INSERTION OF INFUSION DEVICE INTO R LOW ARM, PERC APPROACH [id number] 01/02/19 INTRODUCTION OF NUTRITIONAL INTO PERIPH VEIN, PERC APPROACH [id number] 01/02/19 RESPIRATORY VENTILATION, LESS THAN 24 CONSECUTIVE HOURS [id number] 04/07/18 Infectious Disease Assmt/Plan - Assessment Assessment: 1. MRSA sepsis. treated 2. discitis/osteomyelitis of lumbar spine. 3. Dementia. 4. Dysphagia requiring G-tube placement, but she has pulled out G-tube 3 times already. 5. Dementia. 6. Protein-calorie malnutrition and failure to thrive. 7. Psychosis. 8. Chronic obstructive pulmonary disease. 9. Leukopenia. - Plan Plan: Continue vanco iv for 6 to 8 weeks with trough level 12 - 20. MRI after 2 weeks. Nutritional Asmnt/Malnutr-PDOC - Dietary Evaluation Malnutrition Findings (Please click <Entered> for more info): Nutritional Asmnt/Malnutrition Start: 01/24/19 17: 26 Text: Status: Complete Freq: Protocol: Document 01/24/19 17:27 LCANMOLG (Rec: 01/24/19 17:49 [email or web address]) Nutritional Asmnt/Malnutrition Patient General Information Nutritional Screening High Risk Consult Diagnosis falls and weakness Pertinent Medical Hx/Surgical Hx HTN, DM, CAD, asthma/COPD, dyslipidemia, PUD/GERD, PEG/ Gtube Subjective Information Pt seen resting in bed at time of visit. Spoke with RN yesterday regarding TF regimen . Current Diet Order/ Nutrition Support Jevity 1.2 at 60ml/hr x 20hr Pertinent Medications vitC, colace, iron, heparin, humalog, culturelle Pertinent Labs 01/24 Cr 0.4, Glucose 99, POC 67-83 Nutritional Hx/Data Height 1.63 m Height (Calculated Centimeters) 162.6 Current Weight (lbs) 41.277 kg Weight (Calculated Kilograms) 41.3 Weight (Calculated Grams) 06961.9 [place] Body Weight 120 Body Mass Index (BMI) 15.6 Weight Status Underweight GI Symptoms GI Symptoms None Last BM none Difficult in: None Estimated Nutritional Goals Calories/Kcals/Kg 25-30 IBW 55kg Kcals Calculated 7207-6222 Protein g/k-1.2 Protein Calculated 55-66 Fluid: ml 1265-1485ml (1ml/kcal) Nutritional Problem No current Nutrition Prob Problem N/A Intervention/Recommendation Comments 1. Continue with current TF regimen Jevity 1.2 at 60ml/hr x 20hr. It provides 1440kcal, 67g protein, 968ml free water, meeting 100% of nutritional needs 2. Monitor TF rate, tolerance, wt, skin integrity and labs 3. F/U as low risk in 7 days Expected Outcomes/Goals Expected Outcomes/Goals 1. Pt to meet at least 90% of nutritional needs via nutrition support with tolerance 2. Wt stability, skin to remain intact, labs to approach WNL.
[2019-01-28] MEDS: cefTRIAXone 1 GM in Sodium Chloride 0.9% 50 ML IV SCH (09:25)
[2019-01-28] MEDS: Lactobacillus Rhamnosus GG 15 Billion CFU CAP.SPRINK PO SCH (09:25)
[2019-01-28] MEDS: Ferrous Sulfate 325 MG TAB PO SCH (09:25)
[2019-01-28] MEDS: Multivitamin w/ Minerals Tab GT SCH (09:25)
[2019-01-28] MEDS: Azithromycin 500 MG in Sodium Chloride 0.9% 250 ML IV SCH (09:26)
[2019-01-28] MEDS: Venelex 60gm Tube TP SCH (09:27)
[2019-01-28] MEDS: D5-0.45NS 1,000 ML IV SCH (09:33)
[2019-01-28] MEDS: INSULIN LISPRO SLIDING SCALE 100 UNITS/ML UNIT SUBQ SCH ×2 (10:36→21:25)
--- NOTE | 2019-01-28 16:13 | Progress Notes ---
DATE: 01/27/2019 SUBJECTIVE: The patient is doing well. No distress. OBJECTIVE: VITAL SIGNS: Temperature 97.3, pulse 70, respirations 18, blood pressure 126/74, saturation is 94%. CHEST: Good breath sounds, no wheezing, no crackles. HEART: Regular rate and rhythm. No murmurs. ABDOMEN: Soft. EXTREMITIES: No edema. LABORATORY DATA: WBC is 5.6, hemoglobin 9.6. Sodium 140, potassium 3.8, BUN is 14, creatinine 0.3. IMPRESSION: 1. Respiratory failure. 2. Chronic obstructive pulmonary disease. 3. Weakness. 4. Status post tracheostomy and decannulation. PLAN: 1. Continue nebulizer. 2. Supportive care and discharge planning. JOB# [id number]
--- NOTE | 2019-01-28 16:46 | Internal Medicine Prog Note ---
Internal Medicine Subjective - Subjective Service Date: 01/28/19 Patient is:: awake, in bed Patient Complaints of:: other Per staff patient has:: no adverse event Internal Medicine Objective - Results Result Diagrams: 01/27/19 06:00 01/27/19 06:00 Recent Labs: Laboratory Last Values WBC 5.6 Th/cmm (4.8-10.8) 01/27/19 06:00 RBC 3.01 Mil/cmm (3.80-5.10) L 01/27/19 06:00 Hgb 9.6 gm/dL (12-16) L 01/27/19 06:00 Hct 28.5 % (41.0-60) L 01/27/19 06:00 MCV 94.7 fl (81-100) 01/27/19 06:00 MCH 32.0 pg (27.0-31.0) H 01/27/19 06:00 MCHC Differential 33.8 pg (28.0-36.0) 01/27/19 06:00 RDW 14.9 % (11.5-20.0) 01/27/19 06:00 Plt Count 250 Th/cmm (150-400) 01/27/19 06:00 MPV 8.1 fl 01/27/19 06:00 Neutrophils % 73.7 % (40.0-80.0) 01/27/19 06:00 Lymphocytes % 16.6 % (20.0-50.0) L 01/27/19 06:00 Monocytes % 7.4 % (2.0-10.0) 01/27/19 06:00 Eosinophils % 1.5 % (0.0-5.0) 01/27/19 06:00 Basophils % 0.8 % (0.0-2.0) 01/27/19 06:00 PT 10.1 SECONDS (9.5-11.5) 01/23/19 02:00 INR 0.97 (0.5-1.4) 01/23/19 02:00 Sodium 140 mEq/L (136-145) 01/27/19 06:00 Potassium 3.8 mEq/L (3.5-5.1) 01/27/19 06:00 Chloride 105 mEq/L (98-107) 01/27/19 06:00 Carbon Dioxide 27.2 mEq/L (21.0-31.0) 01/27/19 06:00 Anion Gap 11.6 (7.0-16.0) 01/27/19 06:00 BUN 14 mg/dL (7-25) 01/27/19 06:00 Creatinine 0.3 mg/dL (0.6-1.2) L 01/27/19 06:00 Est GFR ( Amer) > 60.0 ml/min (>90) 01/27/19 06:00 Est GFR (Non-Af Amer) > 60.0 ml/min 01/27/19 06:00 BUN/Creatinine Ratio 46.7 01/27/19 06:00 Glucose 107 mg/dL (70-105) H 01/27/19 06:00 POC Glucose 104 MG/DL (70 - 105) 01/28/19 09:42 Whole Bld Lactic Acid 1.42 mmol/L (0.60-1.99) 01/23/19 02:00 Calcium 9.0 mg/dL (8.6-10.3) 01/27/19 06:00 Total Bilirubin 0.3 mg/dL (0.3-1.0) 01/27/19 06:00 AST 24 U/L (13-39) 01/27/19 06:00 ALT 37 U/L (7-52) 01/27/19 06:00 Alkaline Phosphatase 129 U/L (34-104) H 01/27/19 06:00 Creatine Kinase 36 U/L (30-223) 01/23/19 02:00 Troponin I < 0.01 ng/mL (0.01-0.05) L 01/23/19 02:00 B-Natriuretic Peptide 215.0 pg/mL (5.0-100.0) H 01/23/19 02:00 Total Protein 6.5 gm/dL (6.0-8.3) 01/27/19 06:00 Albumin 2.8 gm/dL (3.7-5.3) L 01/27/19 06:00 Globulin 3.7 gm/dL 01/27/19 06:00 Albumin/Globulin Ratio 0.8 (1.0-1.8) L 01/27/19 06:00 Triglycerides 120 mg/dL (<150) 01/23/19 02:00 Cholesterol 107 mg/dL (<200) 01/23/19 02:00 LDL Cholesterol Direct 66 mg/dL (75-193) L 01/23/19 02:00 HDL Cholesterol 29 mg/dL (23-92) 01/23/19 02:00 Urine Source CATH 01/23/19 02:20 Urine Color YELLOW 01/23/19 02:20 Urine Clarity CLEAR (CLEAR) 01/23/19 02:20 Urine pH 7.0 (4.6 - 8.0) 01/23/19 02:20 Ur Specific [place] 1.010 (1.005-1.030) 01/23/19 02:20 Urine Protein NEGATIVE mg/dL (NEGATIVE) 01/23/19 02:20 Urine Glucose (UA) NEGATIVE mg/dL (NEGATIVE) 01/23/19 02:20 Urine Ketones NEGATIVE mg/dL (NEGATIVE) 01/23/19 02:20 Urine Blood NEGATIVE (NEGATIVE) 01/23/19 02:20 Urine Nitrate NEGATIVE (NEGATIVE) 01/23/19 02:20 Urine Bilirubin NEGATIVE (NEGATIVE) 01/23/19 02:20 Urine Urobilinogen 0.2 E.U./dL (0.2 - 1.0) 01/23/19 02:20 Ur Leukocyte Esterase NEGATIVE (NEGATIVE) 01/23/19 02:20 Vancomycin Trough 17.1 ug/mL (5-10) H 01/26/19 12:05 - Physical Exam Vitals and I&O: Vital Signs Temp 97.8 F 01/28/19 15:59 Pulse 69 01/28/19 16:23 Resp 18 01/28/19 16:23 BP 138/87 01/28/19 15:59 Pulse Ox 100 01/28/19 15:59 Intake & Output 01/27/19 01/28/19 01/28/19 18:59 06:59 18:59 Intake Total 1180 1250 1200 Balance 1180 1250 1200 Weight (lbs) 92 lb 8 oz 92 lb Intake: Intake, IV Amount 550 1250 Azithromycin 500 mg In 250 Sodium Chloride 0.9% 250 ml @ 250 mls/hr IV Q24HR [facility] Rx#:[id number] D5-0.45NS 1,000 ml @ 50 1000 mls/hr IV .Q20H [facility] Rx#: [id number] Vancomycin HCl 0.75 gm In 250 250 Sodium Chloride 0.9% 250 ml @ 165 mls/hr IV Q12H [facility] Rx#:[id number] cefTRIAXone 1 gm In 50 Sodium Chloride 0.9% 50 ml @ 100 mls/hr IV Q24HR [facility] Rx#:[id number] Oral 0 0 Tube Feeding 360 960 Other 270 240 Other: # Voids 3 4 # Bowel Movements 1 0 Stool Characteristics Soft Soft Soft Brown Brown Brown Black Black Black Weight Source Bedscale Bedscale Active Medications: Current Medications Acetaminophen (Tylenol) 650 mg GT Q6H PRN PRN Reason: mild pain Stop: 03/24/19 13:09 Last Admin: 01/28/19 09:25 Dose: 650 mg Al Hydrox/Mg Hydrox/Simethicone (Maalox) 30 ml GT Q6HR PRN PRN Reason: Abdominal Pain Stop: 03/24/19 13:09 Albuterol Sulfate (Albuterol 2.5mg/3ml Neb Ud) 2.5 mg HHN Q2HR PRN PRN Reason: Shortness of Breath Stop: 03/24/19 13:09 Albuterol Sulfate (Albuterol 2.5mg/3ml Neb Ud) 2.5 mg HHN [id number] [facility] Stop: 03/24/19 14:59 Last Admin: 01/28/19 14:01 Dose: 2.5 mg Ascorbic Acid (Vitamin C) 500 mg GT Q12HR [facility] Stop: 03/24/19 20:59 Last Admin: 01/28/19 09:25 Dose: 500 mg Bisacodyl (Dulcolax 10 Mg Supp) 10 mg RC DAILY PRN PRN Reason: Constipation Stop: 03/24/19 13:09 Budesonide (Pulmicort) 0.5 mg HHN BID [facility] Stop: 03/24/19 16:59 Last Admin: 01/28/19 07:08 Dose: 0.5 mg Carvedilol (Coreg) 6.25 mg GT Q12H [facility] Stop: 03/24/19 13:14 Last Admin: 01/28/19 12:57 Dose: 6.25 mg [place] Oil/Honduran Balsam/Trypsin (Venelex) 1 appl TP DAILY [facility] Stop: 03/25/19 08:59 Last Admin: 01/28/19 09:27 Dose: 1 appl Dextrose (Glutose 40%) 18.75 gm PO UD PRN PRN Reason: Blood Glucose less than 70 Stop: 03/24/19 13:09 Docusate Sodium (Colace) 200 mg GT Q12H PRN PRN Reason: Constipation Stop: 03/24/19 13:09 Ferrous Sulfate (Iron) 325 mg PO DAILY [facility] Stop: 03/25/19 08:59 Last Admin: 01/28/19 09:25 Dose: 325 mg Glucagon (Glucagen) 1 mg IM PRN PRN PRN Reason: Blood Glucose less than 70 Stop: 03/24/19 13:09 Heparin Sodium (Porcine) (Heparin) 5,000 units SUBQ Q12H [facility] Stop: 03/24/19 13:14 Last Admin: 01/28/19 12:57 Dose: 5,000 units Azithromycin 500 mg/ Sodium (Chloride) 250 mls @ 250 mls/hr IV Q24HR [facility] Stop: 03/24/19 09:44 Last Admin: 01/28/19 09:26 Dose: 250 mls/hr Ceftriaxone Sodium 1 gm/ (Sodium Chloride) 50 mls @ 100 mls/hr IV Q24HR [facility] Stop: 03/24/19 09:44 Last Admin: 01/28/19 09:25 Dose: 100 mls/hr Vancomycin HCl 0.75 gm/ Sodium (Chloride) 250 mls @ 165 mls/hr IV Q12H [facility] Stop: 03/26/19 00:59 Last Admin: 01/28/19 12:58 Dose: 165 mls/hr Dextrose/Sodium Chloride (D5-0.45ns) 1,000 mls @ 50 mls/hr IV .Q20H [facility] Stop: 03/26/19 22:14 Last Admin: 01/28/19 09:33 Dose: 50 mls/hr Insulin Human Lispro (Humalog Insulin Sliding Scale) 0 units SUBQ Q12HR [facility]; Protocol Stop: 03/24/19 20:59 Last Admin: 01/28/19 10:36 Dose: Not Given Lactobacillus Rhamnosus (Culturelle 15b) 1 each PO DAILY [facility] Stop: 03/25/19 08:59 Last Admin: 01/28/19 09:25 Dose: 1 each Lorazepam (Ativan) 1 mg GT Q6H PRN; Protocol PRN Reason: Anxiety Stop: 03/24/19 13:09 Last Admin: 01/28/19 09:48 Dose: 1 mg Magnesium Hydroxide (Milk Of Magnesia) 30 ml GT HS PRN PRN Reason: Constipation Stop: 03/24/19 13:09 Miscellaneous (Vancomycin Iv Per Pharmacy) 1 ea MC PRN PRN PRN Reason: PROTOCOL Stop: 03/24/19 10:40 Miscellaneous (Probiotic Screen) 1 ea MC PRN PRN PRN Reason: PROTOCOL Stop: 03/25/19 14:19 Pantoprazole Sodium (Protonix) 40 mg IVP DAILY [facility] Stop: 03/25/19 08:59 Last Admin: 01/28/19 09:25 Dose: 40 mg Sodium Phosphate (Fleet Enema) 135 ml RC Q48HR PRN PRN Reason: Constipation Stop: 03/24/19 13:09 General: weak, alert HEENT: NC/AT Neck: + trach Lungs: other (Respiratory failure, stable.) Cardiovascular: RRR, Normal S1 Abdomen: +GT Extremities: clear Neurological: muscle weakness, unsteady - Procedures Procedures: Procedures Procedure Code Date INSERTION OF FEEDING DEVICE INTO STOMACH, PERC APPROACH [id number] 01/02/19 INSERTION OF INFUSION DEVICE INTO R LOW ARM, PERC APPROACH [id number] 01/02/19 INTRODUCTION OF NUTRITIONAL INTO PERIPH VEIN, PERC APPROACH [id number] 01/02/19 RESPIRATORY VENTILATION, LESS THAN 24 CONSECUTIVE HOURS [id number] 04/07/18 Internal Medicine Assmt/Plan - Assessment Assessment: S/p fall. Chronic Respiratory Failure. Hypertension. Diabetes. CAD. Copd. Dyslipidemia. Gerd. S/p trach and PEG. - Plan Plan: placement issues am labs continue current plan of care Nutritional Asmnt/Malnutr-PDOC - Dietary Evaluation Malnutrition Findings (Please click <Entered> for more info): Nutritional Asmnt/Malnutrition Start: 01/24/19 17: 26 Text: Status: Complete Freq: Protocol: Document 01/24/19 17:27 [email or web address] (Rec: 01/24/19 17:49 [email or web address]) Nutritional Asmnt/Malnutrition Patient General Information Nutritional Screening High Risk Consult Diagnosis falls and weakness Pertinent Medical Hx/Surgical Hx HTN, DM, CAD, asthma/COPD, dyslipidemia, PUD/GERD, PEG/ Gtube Subjective Information Pt seen resting in bed at time of visit. Spoke with RN yesterday regarding TF regimen . Current Diet Order/ Nutrition Support Jevity 1.2 at 60ml/hr x 20hr Pertinent Medications vitC, colace, iron, heparin, humalog, culturelle Pertinent Labs 01/24 Cr 0.4, Glucose 99, POC 67-83 Nutritional Hx/Data Height 5 ft 4 in Height (Calculated Centimeters) 162.6 Current Weight (lbs) 91 lb Weight (Calculated Kilograms) 41.3 Weight (Calculated Grams) 60406.9 [place] Body Weight 120 Body Mass Index (BMI) 15.6 Weight Status Underweight GI Symptoms GI Symptoms None Last BM none Difficult in: None Estimated Nutritional Goals Calories/Kcals/Kg 25-30 IBW 55kg Kcals Calculated 2940-8127 Protein g/k-1.2 Protein Calculated 55-66 Fluid: ml 1265-1485ml (1ml/kcal) Nutritional Problem No current Nutrition Prob Problem N/A Intervention/Recommendation Comments 1. Continue with current TF regimen Jevity 1.2 at 60ml/hr x 20hr. It provides 1440kcal, 67g protein, 968ml free water, meeting 100% of nutritional needs 2. Monitor TF rate, tolerance, wt, skin integrity and labs 3. F/U as low risk in 7 days Expected Outcomes/Goals Expected Outcomes/Goals 1. Pt to meet at least 90% of nutritional needs via nutrition support with tolerance 2. Wt stability, skin to remain intact, labs to approach WNL.
[2019-01-29 05:57] LABS: % EOSINOPHILS 2.6 % (0.0-5.0); % LYMPHOCYTES 23.6 % (20.0-50.0); % MONOCYTES 9.2 % (2.0-10.0); % NEUTROPHILS 63.6 % (40.0-80.0); EOSINOPHILE ABSOLUTE 0.1 Th/cmm (0.1-0.4); HEMATOCRIT 29.6 % (41.0-60); HEMOGLOBIN 10.1 gm/dL (12-16); MEAN CELL VOLUME 94.4 fl (81-100); MEAN CORPUSCULAR HEMOGLOBIN 32.3 pg (27.0-31.0); MEAN CORPUSCULAR HGB CONC 34.2 pg (28.0-36.0); MEAN PLATELET VOLUME 7.5 fl; MONOCYTE ABSOLUTE 0.4 Th/cmm (0.3-1.0); NEUTROPHILE ABSOLUTE 2.6 Th/cmm (1.8-8.0); PLATELET COUNT 268 Th/cmm (150-400); RED BLOOD COUNT 3.14 Mil/cmm (3.80-5.10); RED CELL DISTRIBUTION WIDTH 15.3 % (11.5-20.0); WHITE BLOOD COUNT 4.1 Th/cmm (4.8-10.8)
[2019-01-29 06:11] LABS: ANION GAP 11.6 (7.0-16.0); BUN - UREA NITROGEN 11 mg/dL (7-25); CARBON DIOXIDE 27.3 mEq/L (21.0-31.0); CHLORIDE 104 mEq/L (98-107); CREATININE - SERUM 0.3 mg/dL (0.6-1.2); GFR AFRICAN-AMERICAN > 60.0 ml/min (>90); GFR NON AFRICAN-AMERICAN > 60.0 ml/min; GLUCOSE 104 mg/dL (70-105); SODIUM SERUM 140 mEq/L (136-145)
[2019-01-29 06:16] LABS: POTASSIUM SERUM 2.9 mEq/L (3.5-5.1)
[2019-01-29] MEDS: Budesonide 0.5 Mg/2 mL Ud HHN SCH (07:10)
[2019-01-29] MEDS: Albuterol Nebulizer 2.5mg/3mL HHN SCH ×4 (07:10→19:20)
[2019-01-29] MEDS ORDERED: Potassium Chloride Elixir 20 mEq /15 mL UDC GT ONE (07:15)
[2019-01-29] MEDS: Ferrous Sulfate 325 MG TAB PO SCH (08:30)
[2019-01-29] MEDS: Lactobacillus Rhamnosus GG 15 Billion CFU CAP.SPRINK PO SCH (08:30)
[2019-01-29] MEDS: Venelex 60gm Tube TP SCH (08:30)
[2019-01-29] MEDS: Multivitamin w/ Minerals Tab GT SCH (08:31)
[2019-01-29] MEDS: cefTRIAXone 1 GM in Sodium Chloride 0.9% 50 ML IV SCH (08:44)
[2019-01-29] MEDS: INSULIN LISPRO SLIDING SCALE 100 UNITS/ML UNIT SUBQ SCH ×2 (08:46→21:50)
--- NOTE | 2019-01-29 08:53 | Internal Medicine Prog Note ---
Internal Medicine Subjective - Subjective Service Date: 01/29/19 Patient seen and examined:: chart reviewed Patient is:: awake, in bed, confused (oriented x person only) Patient Complaints of:: other Per staff patient has:: no adverse event Internal Medicine Objective - Results Result Diagrams: 01/29/19 05:40 01/29/19 05:40 Recent Labs: Laboratory Last Values WBC 4.1 Th/cmm (4.8-10.8) L 01/29/19 05:40 RBC 3.14 Mil/cmm (3.80-5.10) L 01/29/19 05:40 Hgb 10.1 gm/dL (12-16) L 01/29/19 05:40 Hct 29.6 % (41.0-60) L 01/29/19 05:40 MCV 94.4 fl (81-100) 01/29/19 05:40 MCH 32.3 pg (27.0-31.0) H 01/29/19 05:40 MCHC Differential 34.2 pg (28.0-36.0) 01/29/19 05:40 RDW 15.3 % (11.5-20.0) 01/29/19 05:40 Plt Count 268 Th/cmm (150-400) 01/29/19 05:40 MPV 7.5 fl 01/29/19 05:40 Neutrophils % 63.6 % (40.0-80.0) 01/29/19 05:40 Lymphocytes % 23.6 % (20.0-50.0) 01/29/19 05:40 Monocytes % 9.2 % (2.0-10.0) 01/29/19 05:40 Eosinophils % 2.6 % (0.0-5.0) 01/29/19 05:40 Basophils % 1.0 % (0.0-2.0) 01/29/19 05:40 PT 10.1 SECONDS (9.5-11.5) 01/23/19 02:00 INR 0.97 (0.5-1.4) 01/23/19 02:00 Sodium 140 mEq/L (136-145) 01/29/19 05:40 Potassium 2.9 mEq/L (3.5-5.1) L* 01/29/19 05:40 Chloride 104 mEq/L (98-107) 01/29/19 05:40 Carbon Dioxide 27.3 mEq/L (21.0-31.0) 01/29/19 05:40 Anion Gap 11.6 (7.0-16.0) 01/29/19 05:40 BUN 11 mg/dL (7-25) 01/29/19 05:40 Creatinine 0.3 mg/dL (0.6-1.2) L 01/29/19 05:40 Est GFR ( Amer) > 60.0 ml/min (>90) 01/29/19 05:40 Est GFR (Non-Af Amer) > 60.0 ml/min 01/29/19 05:40 BUN/Creatinine Ratio 36.7 01/29/19 05:40 Glucose 104 mg/dL (70-105) 01/29/19 05:40 POC Glucose 93 MG/DL (70 - 105) 01/29/19 08:23 Whole Bld Lactic Acid 1.42 mmol/L (0.60-1.99) 01/23/19 02:00 Calcium 9.0 mg/dL (8.6-10.3) 01/29/19 05:40 Total Bilirubin 0.3 mg/dL (0.3-1.0) 01/27/19 06:00 AST 24 U/L (13-39) 01/27/19 06:00 ALT 37 U/L (7-52) 01/27/19 06:00 Alkaline Phosphatase 129 U/L (34-104) H 01/27/19 06:00 Creatine Kinase 36 U/L (30-223) 01/23/19 02:00 Troponin I < 0.01 ng/mL (0.01-0.05) L 01/23/19 02:00 B-Natriuretic Peptide 215.0 pg/mL (5.0-100.0) H 01/23/19 02:00 Total Protein 6.5 gm/dL (6.0-8.3) 01/27/19 06:00 Albumin 2.8 gm/dL (3.7-5.3) L 01/27/19 06:00 Globulin 3.7 gm/dL 01/27/19 06:00 Albumin/Globulin Ratio 0.8 (1.0-1.8) L 01/27/19 06:00 Triglycerides 120 mg/dL (<150) 01/23/19 02:00 Cholesterol 107 mg/dL (<200) 01/23/19 02:00 LDL Cholesterol Direct 66 mg/dL (75-193) L 01/23/19 02:00 HDL Cholesterol 29 mg/dL (23-92) 01/23/19 02:00 Urine Source CATH 01/23/19 02:20 Urine Color YELLOW 01/23/19 02:20 Urine Clarity CLEAR (CLEAR) 01/23/19 02:20 Urine pH 7.0 (4.6 - 8.0) 01/23/19 02:20 Ur Specific [place] 1.010 (1.005-1.030) 01/23/19 02:20 Urine Protein NEGATIVE mg/dL (NEGATIVE) 01/23/19 02:20 Urine Glucose (UA) NEGATIVE mg/dL (NEGATIVE) 01/23/19 02:20 Urine Ketones NEGATIVE mg/dL (NEGATIVE) 01/23/19 02:20 Urine Blood NEGATIVE (NEGATIVE) 01/23/19 02:20 Urine Nitrate NEGATIVE (NEGATIVE) 01/23/19 02:20 Urine Bilirubin NEGATIVE (NEGATIVE) 01/23/19 02:20 Urine Urobilinogen 0.2 E.U./dL (0.2 - 1.0) 01/23/19 02:20 Ur Leukocyte Esterase NEGATIVE (NEGATIVE) 01/23/19 02:20 Vancomycin Trough 17.1 ug/mL (5-10) H 01/26/19 12:05 - Physical Exam Vitals and I&O: Vital Signs Temp 98.2 F 01/29/19 08:00 Pulse 67 01/29/19 08:00 Resp 19 01/29/19 08:00 BP 147/83 01/29/19 08:00 Pulse Ox 97 01/29/19 08:00 Intake & Output 01/28/19 01/29/19 01/29/19 18:59 06:59 18:59 Intake Total 1500 0 Balance 1500 0 Weight (lbs) 41.73 kg 41.73 kg Intake: Intake, IV Amount 300 Vancomycin HCl 0.75 gm In 250 Sodium Chloride 0.9% 250 ml @ 165 mls/hr IV Q12H [facility] Rx#:[id number] cefTRIAXone 1 gm In 50 Sodium Chloride 0.9% 50 ml @ 100 mls/hr IV Q24HR [facility] Rx#:[id number] Oral 0 0 Tube Feeding 960 Other 240 Other: # Voids 4 # Bowel Movements 0 0 Stool Characteristics Soft Soft Brown Brown Black Black Weight Source Bedscale Bedscale Active Medications: Current Medications Acetaminophen (Tylenol) 650 mg GT Q6H PRN PRN Reason: mild pain Stop: 03/24/19 13:09 Last Admin: 01/28/19 21:59 Dose: 650 mg Al Hydrox/Mg Hydrox/Simethicone (Maalox) 30 ml GT Q6HR PRN PRN Reason: Abdominal Pain Stop: 03/24/19 13:09 Albuterol Sulfate (Albuterol 2.5mg/3ml Neb Ud) 2.5 mg HHN Q2HR PRN PRN Reason: Shortness of Breath Stop: 03/24/19 13:09 Albuterol Sulfate (Albuterol 2.5mg/3ml Neb Ud) 2.5 mg HHN [id number] [facility] Stop: 03/24/19 14:59 Last Admin: 01/29/19 07:10 Dose: 2.5 mg Ascorbic Acid (Vitamin C) 500 mg GT Q12HR [facility] Stop: 03/24/19 20:59 Last Admin: 01/29/19 08:30 Dose: 500 mg Bisacodyl (Dulcolax 10 Mg Supp) 10 mg RC DAILY PRN PRN Reason: Constipation Stop: 03/24/19 13:09 Budesonide (Pulmicort) 0.5 mg HHN BID [facility] Stop: 03/24/19 16:59 Last Admin: 01/29/19 07:10 Dose: 0.5 mg Carvedilol (Coreg) 6.25 mg GT Q12H [facility] Stop: 03/24/19 13:14 Last Admin: 01/29/19 01:36 Dose: 6.25 mg [place] Oil/[place] Balsam/Trypsin (Venelex) 1 appl TP DAILY [facility] Stop: 03/25/19 08:59 Last Admin: 01/29/19 08:30 Dose: 1 appl Dextrose (Glutose 40%) 18.75 gm PO UD PRN PRN Reason: Blood Glucose less than 70 Stop: 03/24/19 13:09 Docusate Sodium (Colace) 200 mg GT Q12H PRN PRN Reason: Constipation Stop: 03/24/19 13:09 Ferrous Sulfate (Iron) 325 mg PO DAILY [facility] Stop: 03/25/19 08:59 Last Admin: 01/29/19 08:30 Dose: 325 mg Glucagon (Glucagen) 1 mg IM PRN PRN PRN Reason: Blood Glucose less than 70 Stop: 03/24/19 13:09 Heparin Sodium (Porcine) (Heparin) 5,000 units SUBQ Q12H [facility] Stop: 03/24/19 13:14 Last Admin: 01/29/19 01:36 Dose: 5,000 units Azithromycin 500 mg/ Sodium (Chloride) 250 mls @ 250 mls/hr IV Q24HR [facility] Stop: 03/24/19 09:44 Last Admin: 01/28/19 09:26 Dose: 250 mls/hr Ceftriaxone Sodium 1 gm/ (Sodium Chloride) 50 mls @ 100 mls/hr IV Q24HR [facility] Stop: 03/24/19 09:44 Last Admin: 01/29/19 08:44 Dose: 100 mls/hr Vancomycin HCl 0.75 gm/ Sodium (Chloride) 250 mls @ 165 mls/hr IV Q12H [facility] Stop: 03/26/19 00:59 Last Admin: 01/29/19 01:36 Dose: 165 mls/hr Dextrose/Sodium Chloride (D5-0.45ns) 1,000 mls @ 50 mls/hr IV .Q20H [facility] Stop: 03/26/19 22:14 Last Admin: 01/28/19 09:33 Dose: 50 mls/hr Insulin Human Lispro (Humalog Insulin Sliding Scale) 0 units SUBQ Q12HR [facility]; Protocol Stop: 03/24/19 20:59 Last Admin: 01/29/19 08:46 Dose: Not Given Lactobacillus Rhamnosus (Culturelle 15b) 1 each PO DAILY [facility] Stop: 03/25/19 08:59 Last Admin: 01/29/19 08:30 Dose: 1 each Lorazepam (Ativan) 1 mg GT Q6H PRN; Protocol PRN Reason: Anxiety Stop: 03/24/19 13:09 Last Admin: 01/28/19 22:03 Dose: 1 mg Magnesium Hydroxide (Milk Of Magnesia) 30 ml GT HS PRN PRN Reason: Constipation Stop: 03/24/19 13:09 Miscellaneous (Vancomycin Iv Per Pharmacy) 1 ea MC PRN PRN PRN Reason: PROTOCOL Stop: 03/24/19 10:40 Miscellaneous (Probiotic Screen) 1 ea PRN PRN PRN Reason: PROTOCOL Stop: 03/25/19 14:19 Pantoprazole Sodium (Protonix) 40 mg IVP DAILY [facility] Stop: 03/25/19 08:59 Last Admin: 01/29/19 08:30 Dose: 40 mg Sodium Phosphate (Fleet Enema) 135 ml RC Q48HR PRN PRN Reason: Constipation Stop: 03/24/19 13:09 Physical Exam: 58 y/o female patient recently had a fall, possible syncope. General: weak, alert HEENT: NC/AT Neck: + trach Lungs: other (Respiratory failure, stable.) Cardiovascular: RRR, Normal S1 Abdomen: +GT Extremities: clear Neurological: muscle weakness, unsteady - Procedures Procedures: Procedures Procedure Code Date INSERTION OF FEEDING DEVICE INTO STOMACH, PERC APPROACH [id number] 01/02/19 INSERTION OF INFUSION DEVICE INTO R LOW ARM, PERC APPROACH [id number] 01/02/19 INTRODUCTION OF NUTRITIONAL INTO PERIPH VEIN, PERC APPROACH [id number] 01/02/19 RESPIRATORY VENTILATION, LESS THAN 24 CONSECUTIVE HOURS [id number] 04/07/18 Internal Medicine Assmt/Plan - Assessment Assessment: S/p fall. Chronic Respiratory Failure. Hypertension. Diabetes. CAD. Copd. Dyslipidemia. Gerd. S/p trach and PEG. Nutritional Asmnt/Malnutr-PDOC - Dietary Evaluation Malnutrition Findings (Please click <Entered> for more info): Nutritional Asmnt/Malnutrition Start: 01/24/19 17: 26 Text: Status: Complete Freq: Protocol: Document 01/24/19 17:27 [email or web address] (Rec: 01/24/19 17:49 [email or web address]) Nutritional Asmnt/Malnutrition Patient General Information Nutritional Screening High Risk Consult Diagnosis falls and weakness Pertinent Medical Hx/Surgical Hx HTN, DM, CAD, asthma/COPD, dyslipidemia, PUD/GERD, PEG/ Gtube Subjective Information Pt seen resting in bed at time of visit. Spoke with RN yesterday regarding TF regimen . Current Diet Order/ Nutrition Support Jevity 1.2 at 60ml/hr x 20hr Pertinent Medications vitC, colace, iron, heparin, humalog, culturelle Pertinent Labs 01/24 Cr 0.4, Glucose 99, POC 67-83 Nutritional Hx/Data Height 1.63 m Height (Calculated Centimeters) 162.6 Current Weight (lbs) 41.277 kg Weight (Calculated Kilograms) 41.3 Weight (Calculated Grams) 55152.9 [place] Body Weight 120 Body Mass Index (BMI) 15.6 Weight Status Underweight GI Symptoms GI Symptoms None Last BM none Difficult in: None Estimated Nutritional Goals Calories/Kcals/Kg 25-30 IBW 55kg Kcals Calculated 0636-8399 Protein g/k-1.2 Protein Calculated 55-66 Fluid: ml 1265-1485ml (1ml/kcal) Nutritional Problem No current Nutrition Prob Problem N/A Intervention/Recommendation Comments 1. Continue with current TF regimen Jevity 1.2 at 60ml/hr x 20hr. It provides 1440kcal, 67g protein, 968ml free water, meeting 100% of nutritional needs 2. Monitor TF rate, tolerance, wt, skin integrity and labs 3. F/U as low risk in 7 days Expected Outcomes/Goals Expected Outcomes/Goals 1. Pt to meet at least 90% of nutritional needs via nutrition support with tolerance 2. Wt stability, skin to remain intact, labs to approach WNL.
[2019-01-29] MEDS: Azithromycin 500 MG in Sodium Chloride 0.9% 250 ML IV SCH (09:57)
--- NOTE | 2019-01-29 23:23 | Infectious Disease Prog Note ---
Infectious Disease Subjective - Review of Systems Service Date: 01/29/19 Subjective: There is no new change, no fever. Infectious Disease Objective - Results Result Diagrams: 01/29/19 05:40 01/29/19 05:40 Recent Labs: Laboratory Last Values WBC 4.1 Th/cmm (4.8-10.8) L 01/29/19 05:40 RBC 3.14 Mil/cmm (3.80-5.10) L 01/29/19 05:40 Hgb 10.1 gm/dL (12-16) L 01/29/19 05:40 Hct 29.6 % (41.0-60) L 01/29/19 05:40 MCV 94.4 fl (81-100) 01/29/19 05:40 MCH 32.3 pg (27.0-31.0) H 01/29/19 05:40 MCHC Differential 34.2 pg (28.0-36.0) 01/29/19 05:40 RDW 15.3 % (11.5-20.0) 01/29/19 05:40 Plt Count 268 Th/cmm (150-400) 01/29/19 05:40 MPV 7.5 fl 01/29/19 05:40 Neutrophils % 63.6 % (40.0-80.0) 01/29/19 05:40 Lymphocytes % 23.6 % (20.0-50.0) 01/29/19 05:40 Monocytes % 9.2 % (2.0-10.0) 01/29/19 05:40 Eosinophils % 2.6 % (0.0-5.0) 01/29/19 05:40 Basophils % 1.0 % (0.0-2.0) 01/29/19 05:40 PT 10.1 SECONDS (9.5-11.5) 01/23/19 02:00 INR 0.97 (0.5-1.4) 01/23/19 02:00 Sodium 140 mEq/L (136-145) 01/29/19 05:40 Potassium 2.9 mEq/L (3.5-5.1) L* 01/29/19 05:40 Chloride 104 mEq/L (98-107) 01/29/19 05:40 Carbon Dioxide 27.3 mEq/L (21.0-31.0) 01/29/19 05:40 Anion Gap 11.6 (7.0-16.0) 01/29/19 05:40 BUN 11 mg/dL (7-25) 01/29/19 05:40 Creatinine 0.3 mg/dL (0.6-1.2) L 01/29/19 05:40 Est GFR ( Amer) > 60.0 ml/min (>90) 01/29/19 05:40 Est GFR (Non-Af Amer) > 60.0 ml/min 01/29/19 05:40 BUN/Creatinine Ratio 36.7 01/29/19 05:40 Glucose 104 mg/dL (70-105) 01/29/19 05:40 POC Glucose 84 MG/DL (70 - 105) 01/29/19 21:53 Whole Bld Lactic Acid 1.42 mmol/L (0.60-1.99) 01/23/19 02:00 Calcium 9.0 mg/dL (8.6-10.3) 01/29/19 05:40 Total Bilirubin 0.3 mg/dL (0.3-1.0) 01/27/19 06:00 AST 24 U/L (13-39) 01/27/19 06:00 ALT 37 U/L (7-52) 01/27/19 06:00 Alkaline Phosphatase 129 U/L (34-104) H 01/27/19 06:00 Creatine Kinase 36 U/L (30-223) 01/23/19 02:00 Troponin I < 0.01 ng/mL (0.01-0.05) L 01/23/19 02:00 B-Natriuretic Peptide 215.0 pg/mL (5.0-100.0) H 01/23/19 02:00 Total Protein 6.5 gm/dL (6.0-8.3) 01/27/19 06:00 Albumin 2.8 gm/dL (3.7-5.3) L 01/27/19 06:00 Globulin 3.7 gm/dL 01/27/19 06:00 Albumin/Globulin Ratio 0.8 (1.0-1.8) L 01/27/19 06:00 Triglycerides 120 mg/dL (<150) 01/23/19 02:00 Cholesterol 107 mg/dL (<200) 01/23/19 02:00 LDL Cholesterol Direct 66 mg/dL (75-193) L 01/23/19 02:00 HDL Cholesterol 29 mg/dL (23-92) 01/23/19 02:00 Urine Source CATH 01/23/19 02:20 Urine Color YELLOW 01/23/19 02:20 Urine Clarity CLEAR (CLEAR) 01/23/19 02:20 Urine pH 7.0 (4.6 - 8.0) 01/23/19 02:20 Ur Specific [place] 1.010 (1.005-1.030) 01/23/19 02:20 Urine Protein NEGATIVE mg/dL (NEGATIVE) 01/23/19 02:20 Urine Glucose (UA) NEGATIVE mg/dL (NEGATIVE) 01/23/19 02:20 Urine Ketones NEGATIVE mg/dL (NEGATIVE) 01/23/19 02:20 Urine Blood NEGATIVE (NEGATIVE) 01/23/19 02:20 Urine Nitrate NEGATIVE (NEGATIVE) 01/23/19 02:20 Urine Bilirubin NEGATIVE (NEGATIVE) 01/23/19 02:20 Urine Urobilinogen 0.2 E.U./dL (0.2 - 1.0) 01/23/19 02:20 Ur Leukocyte Esterase NEGATIVE (NEGATIVE) 01/23/19 02:20 Vancomycin Trough 19.4 ug/mL (5-10) H 01/29/19 12:00 - Physical Exam Vitals and I&O: Vital Signs Temp 98.7 F 01/29/19 20:00 Pulse 59 01/29/19 20:00 Resp 19 01/29/19 20:00 BP 117/78 01/29/19 20:00 Pulse Ox 100 01/29/19 20:00 Intake & Output 01/29/19 01/29/19 01/30/19 06:59 18:59 06:59 Intake Total 250 340 Balance 250 340 Weight (lbs) 41.73 kg Intake: Intake, IV Amount 250 Vancomycin HCl 0.75 gm In 250 Sodium Chloride 0.9% 250 ml @ 165 mls/hr IV Q12H [facility] Rx#:[id number] Oral 0 Tube Feeding 240 Other 100 Other: # Voids 3 # Bowel Movements 1 Stool Characteristics Soft Soft Brown Brown Black Weight Source Bedscale Active Medications: Current Medications Acetaminophen (Tylenol) 650 mg GT Q6H PRN PRN Reason: mild pain Stop: 03/24/19 13:09 Last Admin: 01/28/19 21:59 Dose: 650 mg Al Hydrox/Mg Hydrox/Simethicone (Maalox) 30 ml GT Q6HR PRN PRN Reason: Abdominal Pain Stop: 03/24/19 13:09 Albuterol Sulfate (Albuterol 2.5mg/3ml Neb Ud) 2.5 mg HHN Q2HR PRN PRN Reason: Shortness of Breath Stop: 03/24/19 13:09 Albuterol Sulfate (Albuterol 2.5mg/3ml Neb Ud) 2.5 mg HHN [id number] [facility] Stop: 03/24/19 14:59 Last Admin: 01/29/19 19:20 Dose: 2.5 mg Ascorbic Acid (Vitamin C) 500 mg GT Q12HR [facility] Stop: 03/24/19 20:59 Last Admin: 01/29/19 21:44 Dose: 500 mg Bisacodyl (Dulcolax 10 Mg Supp) 10 mg RC DAILY PRN PRN Reason: Constipation Stop: 03/24/19 13:09 Budesonide (Pulmicort) 0.5 mg HHN BID [facility] Stop: 03/24/19 16:59 Last Admin: 01/29/19 07:10 Dose: 0.5 mg Carvedilol (Coreg) 6.25 mg GT Q12H [facility] Stop: 03/24/19 13:14 Last Admin: 01/29/19 12:37 Dose: 6.25 mg [place] Oil/[place] Balsam/Trypsin (Venelex) 1 appl TP DAILY [facility] Stop: 03/25/19 08:59 Last Admin: 01/29/19 08:30 Dose: 1 appl Dextrose (Glutose 40%) 18.75 gm PO UD PRN PRN Reason: Blood Glucose less than 70 Stop: 03/24/19 13:09 Docusate Sodium (Colace) 200 mg GT Q12H PRN PRN Reason: Constipation Stop: 03/24/19 13:09 Ferrous Sulfate (Iron) 325 mg PO DAILY [facility] Stop: 03/25/19 08:59 Last Admin: 01/29/19 08:30 Dose: 325 mg Glucagon (Glucagen) 1 mg IM PRN PRN PRN Reason: Blood Glucose less than 70 Stop: 03/24/19 13:09 Heparin Sodium (Porcine) (Heparin) 5,000 units SUBQ Q12H [facility] Stop: 03/24/19 13:14 Last Admin: 01/29/19 12:37 Dose: 5,000 units Azithromycin 500 mg/ Sodium (Chloride) 250 mls @ 250 mls/hr IV Q24HR [facility] Stop: 03/24/19 09:44 Last Admin: 01/29/19 09:57 Dose: 250 mls/hr Ceftriaxone Sodium 1 gm/ (Sodium Chloride) 50 mls @ 100 mls/hr IV Q24HR [facility] Stop: 03/24/19 09:44 Last Admin: 01/29/19 08:44 Dose: 100 mls/hr Vancomycin HCl 0.75 gm/ Sodium (Chloride) 250 mls @ 165 mls/hr IV Q12H [facility] Stop: 03/26/19 00:59 Last Admin: 01/29/19 12:32 Dose: 165 mls/hr Dextrose/Sodium Chloride (D5-0.45ns) 1,000 mls @ 50 mls/hr IV .Q20H [facility] Stop: 03/26/19 22:14 Last Admin: 01/28/19 09:33 Dose: 50 mls/hr Vancomycin HCl 750 mg/ Sodium (Chloride) 250 mls @ 165 mls/hr IV Q12H [facility] Stop: 03/31/19 05:59 Insulin Human Lispro (Humalog Insulin Sliding Scale) 0 units SUBQ Q12HR [facility]; Protocol Stop: 03/24/19 20:59 Last Admin: 01/29/19 08:46 Dose: Not Given Lactobacillus Rhamnosus (Culturelle 15b) 1 each PO DAILY [facility] Stop: 03/25/19 08:59 Last Admin: 01/29/19 08:30 Dose: 1 each Lorazepam (Ativan) 1 mg GT Q6H PRN; Protocol PRN Reason: Anxiety Stop: 03/24/19 13:09 Last Admin: 01/29/19 21:44 Dose: 1 mg Magnesium Hydroxide (Milk Of Magnesia) 30 ml GT HS PRN PRN Reason: Constipation Stop: 03/24/19 13:09 Miscellaneous (Vancomycin Iv Per Pharmacy) 1 ea PRN PRN PRN Reason: PROTOCOL Stop: 03/24/19 10:40 Miscellaneous (Probiotic Screen) 1 ea PRN PRN PRN Reason: PROTOCOL Stop: 03/25/19 14:19 Pantoprazole Sodium (Protonix) 40 mg IVP DAILY [facility] Stop: 03/25/19 08:59 Last Admin: 01/29/19 08:30 Dose: 40 mg Sodium Phosphate (Fleet Enema) 135 ml RC Q48HR PRN PRN Reason: Constipation Stop: 03/24/19 13:09 General: no acute distress, cachectic HEENT: atraumatic, normocephalic, PERRLA, EOMI, moist mucous membrane Neck: supple, no thyromegaly Cardiovascular: S1S2, regular Lungs: clear to auscultation bilaterally, clear to percussion Abdomen: soft, no tender, no distended Extremities: no cyanosis, no clubbing, no edema Neurological: awake, alert, oriented Skin: intact - Procedures Procedures: Procedures Procedure Code Date INSERTION OF FEEDING DEVICE INTO STOMACH, PERC APPROACH [id number] 01/02/19 INSERTION OF INFUSION DEVICE INTO R LOW ARM, PERC APPROACH [id number] 01/02/19 INTRODUCTION OF NUTRITIONAL INTO PERIPH VEIN, PERC APPROACH [id number] 01/02/19 RESPIRATORY VENTILATION, LESS THAN 24 CONSECUTIVE HOURS [id number] 04/07/18 Infectious Disease Assmt/Plan - Assessment Assessment: 1. MRSA sepsis. treated 2. discitis/osteomyelitis of lumbar spine. 3. Dementia. 4. Dysphagia requiring G-tube placement, but she has pulled out G-tube 3 times already. 5. Dementia. 6. Protein-calorie malnutrition and failure to thrive. 7. Psychosis. 8. Chronic obstructive pulmonary disease. 9. Leukopenia. - Plan Plan: Continue vanco iv for 6 to 8 weeks with trough level 12 - 20. MRI after 2 weeks. Nutritional Asmnt/Malnutr-PDOC - Dietary Evaluation Malnutrition Findings (Please click <Entered> for more info): Nutritional Asmnt/Malnutrition Start: 01/24/19 17: 26 Text: Status: Complete Freq: Protocol: Document 01/24/19 17:27 LCHENG (Rec: 01/24/19 17:49 [email or web address]) Nutritional Asmnt/Malnutrition Patient General Information Nutritional Screening High Risk Consult Diagnosis falls and weakness Pertinent Medical Hx/Surgical Hx HTN, DM, CAD, asthma/COPD, dyslipidemia, PUD/GERD, PEG/ Gtube Subjective Information Pt seen resting in bed at time of visit. Spoke with RN yesterday regarding TF regimen . Current Diet Order/ Nutrition Support Jevity 1.2 at 60ml/hr x 20hr Pertinent Medications vitC, colace, iron, heparin, humalog, culturelle Pertinent Labs 01/24 Cr 0.4, Glucose 99, POC 67-83 Nutritional Hx/Data Height 1.63 m Height (Calculated Centimeters) 162.6 Current Weight (lbs) 41.277 kg Weight (Calculated Kilograms) 41.3 Weight (Calculated Grams) 40815.9 [place] Body Weight 120 Body Mass Index (BMI) 15.6 Weight Status Underweight GI Symptoms GI Symptoms None Last BM none Difficult in: None Estimated Nutritional Goals Calories/Kcals/Kg 25-30 IBW 55kg Kcals Calculated 4547-5460 Protein g/k-1.2 Protein Calculated 55-66 Fluid: ml 1265-1485ml (1ml/kcal) Nutritional Problem No current Nutrition Prob Problem N/A Intervention/Recommendation Comments 1. Continue with current TF regimen Jevity 1.2 at 60ml/hr x 20hr. It provides 1440kcal, 67g protein, 968ml free water, meeting 100% of nutritional needs 2. Monitor TF rate, tolerance, wt, skin integrity and labs 3. F/U as low risk in 7 days Expected Outcomes/Goals Expected Outcomes/Goals 1. Pt to meet at least 90% of nutritional needs via nutrition support with tolerance 2. Wt stability, skin to remain intact, labs to approach WNL.
--- NOTE | 2019-01-30 03:22 | Progress Notes ---
DATE: 01/29/2019 SUBJECTIVE: The patient appears in no acute distress. OBJECTIVE: VITAL SIGNS: Temperature is 97.8, pulse 70, respiration 18, blood pressure 152/85, saturation 94%. CHEST: Good breath sounds. No wheezing or crackles. HEART: Regular rate and rhythm. ABDOMEN: Soft. EXTREMITIES: No edema. LABORATORY DATA: WBC is 4.1, hemoglobin 10.1, platelets 268. Sodium is 140, , 3.9, BUN 11, creatinine 0.3. ASSESSMENT: 1. Respiratory failure. 2. Pneumonia. 3. Weakness. 4. Dysphagia. 5. Chronic obstructive pulmonary disease. 6. Hypokalemia. PLAN: 1. Continue supportive care. 2. Replace potassium. 3. Nebulizer treatment. 4. Antibiotics. 4. Discharge planning. JOB# [id number]
[2019-01-30 06:15] LABS: % BASOPHILS 0.8 % (0.0-2.0); % EOSINOPHILS 2.5 % (0.0-5.0); % LYMPHOCYTES 18.6 % (20.0-50.0); % MONOCYTES 8.8 % (2.0-10.0); % NEUTROPHILS 69.3 % (40.0-80.0); EOSINOPHILE ABSOLUTE 0.1 Th/cmm (0.1-0.4); HEMATOCRIT 28.9 % (41.0-60); HEMOGLOBIN 9.8 gm/dL (12-16); MEAN CELL VOLUME 93.4 fl (81-100); MEAN CORPUSCULAR HEMOGLOBIN 31.7 pg (27.0-31.0); MEAN PLATELET VOLUME 7.3 fl; MONOCYTE ABSOLUTE 0.5 Th/cmm (0.3-1.0); NEUTROPHILE ABSOLUTE 3.9 Th/cmm (1.8-8.0); PLATELET COUNT 267 Th/cmm (150-400); RED CELL DISTRIBUTION WIDTH 15.1 % (11.5-20.0); WHITE BLOOD COUNT 5.5 Th/cmm (4.8-10.8)
[2019-01-30 06:33] LABS: ALB/GLOB RATIO 0.8 (1.0-1.8); ALBUMIN 2.8 gm/dL (3.7-5.3); ALKALINE PHOSPHATASE 110 U/L (34-104); BILIRUBIN,TOTAL 0.3 mg/dL (0.3-1.0); BUN - UREA NITROGEN 12 mg/dL (7-25); CALCIUM SERUM 8.8 mg/dL (8.6-10.3); CARBON DIOXIDE 28.4 mEq/L (21.0-31.0); CHLORIDE 104 mEq/L (98-107); CREATININE - SERUM 0.3 mg/dL (0.6-1.2); GFR AFRICAN-AMERICAN > 60.0 ml/min (>90); GFR NON AFRICAN-AMERICAN > 60.0 ml/min; GLUCOSE 111 mg/dL (70-105); POTASSIUM SERUM 3.4 mEq/L (3.5-5.1); SGOT 21 U/L (13-39); SGPT/ALT 31 U/L (7-52); SODIUM SERUM 139 mEq/L (136-145); TOTAL PROTEIN,SERUM 6.2 gm/dL (6.0-8.3)
[2019-01-30] MEDS: Budesonide 0.5 Mg/2 mL Ud HHN SCH ×2 (07:03→19:45)
[2019-01-30] MEDS ORDERED: Potassium Chloride Elixir 20 mEq /15 mL UDC GT ONE (08:55)
[2019-01-30] MEDS: Lactobacillus Rhamnosus GG 15 Billion CFU CAP.SPRINK PO SCH (09:18)
[2019-01-30] MEDS: Ferrous Sulfate 325 MG TAB PO SCH (09:18)
[2019-01-30] MEDS: Multivitamin w/ Minerals Tab GT SCH (09:18)
[2019-01-30] MEDS: Venelex 60gm Tube TP SCH (09:19)
[2019-01-30] MEDS: INSULIN LISPRO SLIDING SCALE 100 UNITS/ML UNIT SUBQ SCH ×2 (09:20→23:39)
[2019-01-30] MEDS: cefTRIAXone 1 GM in Sodium Chloride 0.9% 50 ML IV SCH (09:33)
[2019-01-30] MEDS: Azithromycin 500 MG in Sodium Chloride 0.9% 250 ML IV SCH (10:06)
[2019-01-30] MEDS: Albuterol Nebulizer 2.5mg/3mL HHN SCH ×4 (10:08→19:40)
--- NOTE | 2019-01-30 13:26 | Infectious Disease Prog Note ---
Infectious Disease Subjective - Review of Systems Service Date: 01/30/19 Subjective: There is no new change, no fever. Infectious Disease Objective - Results Result Diagrams: 01/30/19 05:45 01/30/19 05:45 Recent Labs: Laboratory Last Values WBC 5.5 Th/cmm (4.8-10.8) 01/30/19 05:45 RBC 3.10 Mil/cmm (3.80-5.10) L 01/30/19 05:45 Hgb 9.8 gm/dL (12-16) L 01/30/19 05:45 Hct 28.9 % (41.0-60) L 01/30/19 05:45 MCV 93.4 fl (81-100) 01/30/19 05:45 MCH 31.7 pg (27.0-31.0) H 01/30/19 05:45 MCHC Differential 34.0 pg (28.0-36.0) 01/30/19 05:45 RDW 15.1 % (11.5-20.0) 01/30/19 05:45 Plt Count 267 Th/cmm (150-400) 01/30/19 05:45 MPV 7.3 fl 01/30/19 05:45 Neutrophils % 69.3 % (40.0-80.0) 01/30/19 05:45 Lymphocytes % 18.6 % (20.0-50.0) L 01/30/19 05:45 Monocytes % 8.8 % (2.0-10.0) 01/30/19 05:45 Eosinophils % 2.5 % (0.0-5.0) 01/30/19 05:45 Basophils % 0.8 % (0.0-2.0) 01/30/19 05:45 PT 10.1 SECONDS (9.5-11.5) 01/23/19 02:00 INR 0.97 (0.5-1.4) 01/23/19 02:00 Sodium 139 mEq/L (136-145) 01/30/19 05:45 Potassium 3.4 mEq/L (3.5-5.1) L 01/30/19 05:45 Chloride 104 mEq/L (98-107) 01/30/19 05:45 Carbon Dioxide 28.4 mEq/L (21.0-31.0) 01/30/19 05:45 Anion Gap 10.0 (7.0-16.0) 01/30/19 05:45 BUN 12 mg/dL (7-25) 01/30/19 05:45 Creatinine 0.3 mg/dL (0.6-1.2) L 01/30/19 05:45 Est GFR ( Amer) > 60.0 ml/min (>90) 01/30/19 05:45 Est GFR (Non-Af Amer) > 60.0 ml/min 01/30/19 05:45 BUN/Creatinine Ratio 40.0 01/30/19 05:45 Glucose 111 mg/dL (70-105) H 01/30/19 05:45 POC Glucose 52 MG/DL (70 - 105) L 01/30/19 12:41 Whole Bld Lactic Acid 1.42 mmol/L (0.60-1.99) 01/23/19 02:00 Calcium 8.8 mg/dL (8.6-10.3) 01/30/19 05:45 Total Bilirubin 0.3 mg/dL (0.3-1.0) 01/30/19 05:45 AST 21 U/L (13-39) 01/30/19 05:45 ALT 31 U/L (7-52) 01/30/19 05:45 Alkaline Phosphatase 110 U/L (34-104) H 01/30/19 05:45 Creatine Kinase 36 U/L (30-223) 01/23/19 02:00 Troponin I < 0.01 ng/mL (0.01-0.05) L 01/23/19 02:00 B-Natriuretic Peptide 215.0 pg/mL (5.0-100.0) H 01/23/19 02:00 Total Protein 6.2 gm/dL (6.0-8.3) 01/30/19 05:45 Albumin 2.8 gm/dL (3.7-5.3) L 01/30/19 05:45 Globulin 3.4 gm/dL 01/30/19 05:45 Albumin/Globulin Ratio 0.8 (1.0-1.8) L 01/30/19 05:45 Triglycerides 120 mg/dL (<150) 01/23/19 02:00 Cholesterol 107 mg/dL (<200) 01/23/19 02:00 LDL Cholesterol Direct 66 mg/dL (75-193) L 01/23/19 02:00 HDL Cholesterol 29 mg/dL (23-92) 01/23/19 02:00 Urine Source CATH 01/23/19 02:20 Urine Color YELLOW 01/23/19 02:20 Urine Clarity CLEAR (CLEAR) 01/23/19 02:20 Urine pH 7.0 (4.6 - 8.0) 01/23/19 02:20 Ur Specific [place] 1.010 (1.005-1.030) 01/23/19 02:20 Urine Protein NEGATIVE mg/dL (NEGATIVE) 01/23/19 02:20 Urine Glucose (UA) NEGATIVE mg/dL (NEGATIVE) 01/23/19 02:20 Urine Ketones NEGATIVE mg/dL (NEGATIVE) 01/23/19 02:20 Urine Blood NEGATIVE (NEGATIVE) 01/23/19 02:20 Urine Nitrate NEGATIVE (NEGATIVE) 01/23/19 02:20 Urine Bilirubin NEGATIVE (NEGATIVE) 01/23/19 02:20 Urine Urobilinogen 0.2 E.U./dL (0.2 - 1.0) 01/23/19 02:20 Ur Leukocyte Esterase NEGATIVE (NEGATIVE) 01/23/19 02:20 Vancomycin Trough 19.4 ug/mL (5-10) H 01/29/19 12:00 - Physical Exam Vitals and I&O: Vital Signs Temp 97.8 F 01/30/19 12:00 Pulse 60 01/30/19 12:47 Resp 18 01/30/19 13:08 BP 132/80 01/30/19 12:47 Pulse Ox 100 01/30/19 11:41 Intake & Output 01/29/19 01/30/19 01/30/19 18:59 06:59 18:59 Intake Total 890 Balance 890 Weight (lbs) 41.73 kg Intake: Intake, IV Amount 550 Azithromycin 500 mg In 250 Sodium Chloride 0.9% 250 ml @ 250 mls/hr IV Q24HR [facility] Rx#:[id number] Vancomycin HCl 0.75 gm In 250 Sodium Chloride 0.9% 250 ml @ 165 mls/hr IV Q12H [facility] Rx#:[id number] 1 gm In 50 Sodium Chloride 0.9% 50 ml @ 100 mls/hr IV Q24HR [facility] Rx#:[id number] Oral 0 Tube Feeding 240 Other 100 Other: # Voids 3 # Bowel Movements 1 Stool Characteristics Soft Soft Soft Brown Brown Brown Weight Source Bedscale Active Medications: Current Medications Acetaminophen (Tylenol) 650 mg GT Q6H PRN PRN Reason: mild pain Stop: 03/24/19 13:09 Last Admin: 01/28/19 21:59 Dose: 650 mg Al Hydrox/Mg Hydrox/Simethicone (Maalox) 30 ml GT Q6HR PRN PRN Reason: Abdominal Pain Stop: 03/24/19 13:09 Albuterol Sulfate (Albuterol 2.5mg/3ml Neb Ud) 2.5 mg HHN Q2HR PRN PRN Reason: Shortness of Breath Stop: 03/24/19 13:09 Albuterol Sulfate (Albuterol 2.5mg/3ml Neb Ud) 2.5 mg HHN [id number] [facility] Stop: 03/24/19 14:59 Last Admin: 01/30/19 10:08 Dose: 2.5 mg Ascorbic Acid (Vitamin C) 500 mg GT Q12HR [facility] Stop: 03/24/19 20:59 Last Admin: 01/30/19 09:18 Dose: 500 mg Bisacodyl (Dulcolax 10 Mg Supp) 10 mg RC DAILY PRN PRN Reason: Constipation Stop: 03/24/19 13:09 Budesonide (Pulmicort) 0.5 mg HHN BID [facility] Stop: 03/24/19 16:59 Last Admin: 01/30/19 07:03 Dose: 0.5 mg Carvedilol (Coreg) 6.25 mg GT Q12H [facility] Stop: 03/24/19 13:14 Last Admin: 01/30/19 12:47 Dose: 6.25 mg [place] Oil/[place] Balsam/Trypsin (Venelex) 1 appl TP DAILY [facility] Stop: 03/25/19 08:59 Last Admin: 01/30/19 09:19 Dose: 1 appl Dextrose (Glutose 40%) 18.75 gm PO UD PRN PRN Reason: Blood Glucose less than 70 Stop: 03/24/19 13:09 Docusate Sodium (Colace) 200 mg GT Q12H PRN PRN Reason: Constipation Stop: 03/24/19 13:09 Ferrous Sulfate (Iron) 325 mg PO DAILY [facility] Stop: 03/25/19 08:59 Last Admin: 01/30/19 09:18 Dose: 325 mg Glucagon (Glucagen) 1 mg IM PRN PRN PRN Reason: Blood Glucose less than 70 Stop: 03/24/19 13:09 Heparin Sodium (Porcine) (Heparin) 5,000 units SUBQ Q12H [facility] Stop: 03/24/19 13:14 Last Admin: 01/30/19 12:47 Dose: 5,000 units Azithromycin 500 mg/ Sodium (Chloride) 250 mls @ 250 mls/hr IV Q24HR [facility] Stop: 03/24/19 09:44 Last Admin: 01/30/19 10:06 Dose: 250 mls/hr Ceftriaxone Sodium 1 gm/ (Sodium Chloride) 50 mls @ 100 mls/hr IV Q24HR [facility] Stop: 03/24/19 09:44 Last Admin: 01/30/19 09:33 Dose: 100 mls/hr Vancomycin HCl 0.75 gm/ Sodium (Chloride) 250 mls @ 165 mls/hr IV Q12H [facility] Stop: 03/26/19 00:59 Last Admin: 01/30/19 01:17 Dose: 165 mls/hr Dextrose/Sodium Chloride (D5-0.45ns) 1,000 mls @ 50 mls/hr IV .Q20H [facility] Stop: 03/26/19 22:14 Last Admin: 01/28/19 09:33 Dose: 50 mls/hr Insulin Human Lispro (Humalog Insulin Sliding Scale) 0 units SUBQ Q12HR [facility]; Protocol Stop: 03/24/19 20:59 Last Admin: 01/30/19 09:20 Dose: Not Given Lactobacillus Rhamnosus (Culturelle 15b) 1 each PO DAILY [facility] Stop: 03/25/19 08:59 Last Admin: 01/30/19 09:18 Dose: 1 each Lorazepam (Ativan) 1 mg GT Q6H PRN; Protocol PRN Reason: Anxiety Stop: 03/24/19 13:09 Last Admin: 01/29/19 21:44 Dose: 1 mg Magnesium Hydroxide (Milk Of Magnesia) 30 ml GT HS PRN PRN Reason: Constipation Stop: 03/24/19 13:09 Miscellaneous (Vancomycin Iv Per Pharmacy) 1 ea MC PRN PRN PRN Reason: PROTOCOL Stop: 03/24/19 10:40 Miscellaneous (Probiotic Screen) 1 ea MC PRN PRN PRN Reason: PROTOCOL Stop: 03/25/19 14:19 Pantoprazole Sodium (Protonix) 40 mg IVP DAILY [facility] Stop: 03/25/19 08:59 Last Admin: 01/30/19 09:00 Dose: 40 mg Sodium Phosphate (Fleet Enema) 135 ml RC Q48HR PRN PRN Reason: Constipation Stop: 03/24/19 13:09 General: no acute distress, cachectic HEENT: atraumatic, normocephalic, PERRLA, EOMI Neck: supple, no thyromegaly Cardiovascular: S1S2, regular Lungs: clear to auscultation bilaterally, clear to percussion Abdomen: soft, no tender, no distended, no rebound Extremities: no cyanosis, no clubbing, no edema Neurological: awake, alert, oriented Skin: intact - Procedures Procedures: Procedures Procedure Code Date INSERTION OF FEEDING DEVICE INTO STOMACH, PERC APPROACH [id number] 01/02/19 INSERTION OF INFUSION DEVICE INTO R LOW ARM, PERC APPROACH [id number] 01/02/19 INTRODUCTION OF NUTRITIONAL INTO PERIPH VEIN, PERC APPROACH [id number] 01/02/19 RESPIRATORY VENTILATION, LESS THAN 24 CONSECUTIVE HOURS [id number] 04/07/18 Infectious Disease Assmt/Plan - Assessment Assessment: 1. MRSA sepsis. treated 2. discitis/osteomyelitis of lumbar spine. 3. Dementia. 4. Dysphagia requiring G-tube placement, but she has pulled out G-tube 3 times already. 5. Dementia. 6. Protein-calorie malnutrition and failure to thrive. 7. Psychosis. 8. Chronic obstructive pulmonary disease. 9. Leukopenia. - Plan Plan: Continue vanco iv for 6 to 8 weeks with trough level 12 - 20. MRI after 1 weeks. Nutritional Asmnt/Malnutr-PDOC - Dietary Evaluation Malnutrition Findings (Please click <Entered> for more info): Nutritional Asmnt/Malnutrition Start: 01/24/19 17: 26 Text: Status: Complete Freq: Protocol: Document 01/24/19 17:27 LCHENG (Rec: 01/24/19 17:49 [email or web address] [email or web address]) Nutritional Asmnt/Malnutrition Patient General Information Nutritional Screening High Risk Consult Diagnosis falls and weakness Pertinent Medical Hx/Surgical Hx HTN, DM, CAD, asthma/COPD, dyslipidemia, PUD/GERD, PEG/ Gtube Subjective Information Pt seen resting in bed at time of visit. Spoke with RN yesterday regarding TF regimen . Current Diet Order/ Nutrition Support Jevity 1.2 at 60ml/hr x 20hr Pertinent Medications vitC, colace, iron, heparin, humalog, culturelle Pertinent Labs 01/24 Cr 0.4, Glucose 99, POC 67-83 Nutritional Hx/Data Height 1.63 m Height (Calculated Centimeters) 162.6 Current Weight (lbs) 41.277 kg Weight (Calculated Kilograms) 41.3 Weight (Calculated Grams) 66660.9 [place] Body Weight 120 Body Mass Index (BMI) 15.6 Weight Status Underweight GI Symptoms GI Symptoms None Last BM none Difficult in: None Estimated Nutritional Goals Calories/Kcals/Kg 25-30 IBW 55kg Kcals Calculated 2494-5546 Protein g/k-1.2 Protein Calculated 55-66 Fluid: ml 1265-1485ml (1ml/kcal) Nutritional Problem No current Nutrition Prob Problem N/A Intervention/Recommendation Comments 1. Continue with current TF regimen Jevity 1.2 at 60ml/hr x 20hr. It provides 1440kcal, 67g protein, 968ml free water, meeting 100% of nutritional needs 2. Monitor TF rate, tolerance, wt, skin integrity and labs 3. F/U as low risk in 7 days Expected Outcomes/Goals Expected Outcomes/Goals 1. Pt to meet at least 90% of nutritional needs via nutrition support with tolerance 2. Wt stability, skin to remain intact, labs to approach WNL.
[2019-01-30] MEDS: D5-0.45NS 1,000 ML IV SCH (13:33)
--- NOTE | 2019-01-30 18:35 | Internal Medicine Prog Note ---
Internal Medicine Subjective - Subjective Service Date: 01/30/19 Patient is:: awake, in bed, confused (oriented x person only) Patient Complaints of:: other Per staff patient has:: no adverse event Internal Medicine Objective - Results Result Diagrams: 01/30/19 05:45 01/30/19 05:45 Recent Labs: Laboratory Last Values WBC 5.5 Th/cmm (4.8-10.8) 01/30/19 05:45 RBC 3.10 Mil/cmm (3.80-5.10) L 01/30/19 05:45 Hgb 9.8 gm/dL (12-16) L 01/30/19 05:45 Hct 28.9 % (41.0-60) L 01/30/19 05:45 MCV 93.4 fl (81-100) 01/30/19 05:45 MCH 31.7 pg (27.0-31.0) H 01/30/19 05:45 MCHC Differential 34.0 pg (28.0-36.0) 01/30/19 05:45 RDW 15.1 % (11.5-20.0) 01/30/19 05:45 Plt Count 267 Th/cmm (150-400) 01/30/19 05:45 MPV 7.3 fl 01/30/19 05:45 Neutrophils % 69.3 % (40.0-80.0) 01/30/19 05:45 Lymphocytes % 18.6 % (20.0-50.0) L 01/30/19 05:45 Monocytes % 8.8 % (2.0-10.0) 01/30/19 05:45 Eosinophils % 2.5 % (0.0-5.0) 01/30/19 05:45 Basophils % 0.8 % (0.0-2.0) 01/30/19 05:45 PT 10.1 SECONDS (9.5-11.5) 01/23/19 02:00 INR 0.97 (0.5-1.4) 01/23/19 02:00 Sodium 139 mEq/L (136-145) 01/30/19 05:45 Potassium 3.4 mEq/L (3.5-5.1) L 01/30/19 05:45 Chloride 104 mEq/L (98-107) 01/30/19 05:45 Carbon Dioxide 28.4 mEq/L (21.0-31.0) 01/30/19 05:45 Anion Gap 10.0 (7.0-16.0) 01/30/19 05:45 BUN 12 mg/dL (7-25) 01/30/19 05:45 Creatinine 0.3 mg/dL (0.6-1.2) L 01/30/19 05:45 Est GFR ( Amer) > 60.0 ml/min (>90) 01/30/19 05:45 Est GFR (Non-Af Amer) > 60.0 ml/min 01/30/19 05:45 BUN/Creatinine Ratio 40.0 01/30/19 05:45 Glucose 111 mg/dL (70-105) H 01/30/19 05:45 POC Glucose 104 MG/DL (70 - 105) 01/30/19 17:05 Whole Bld Lactic Acid 1.42 mmol/L (0.60-1.99) 01/23/19 02:00 Calcium 8.8 mg/dL (8.6-10.3) 01/30/19 05:45 Total Bilirubin 0.3 mg/dL (0.3-1.0) 01/30/19 05:45 AST 21 U/L (13-39) 01/30/19 05:45 ALT 31 U/L (7-52) 01/30/19 05:45 Alkaline Phosphatase 110 U/L (34-104) H 01/30/19 05:45 Creatine Kinase 36 U/L (30-223) 01/23/19 02:00 Troponin I < 0.01 ng/mL (0.01-0.05) L 01/23/19 02:00 B-Natriuretic Peptide 215.0 pg/mL (5.0-100.0) H 01/23/19 02:00 Total Protein 6.2 gm/dL (6.0-8.3) 01/30/19 05:45 Albumin 2.8 gm/dL (3.7-5.3) L 01/30/19 05:45 Globulin 3.4 gm/dL 01/30/19 05:45 Albumin/Globulin Ratio 0.8 (1.0-1.8) L 01/30/19 05:45 Triglycerides 120 mg/dL (<150) 01/23/19 02:00 Cholesterol 107 mg/dL (<200) 01/23/19 02:00 LDL Cholesterol Direct 66 mg/dL (75-193) L 01/23/19 02:00 HDL Cholesterol 29 mg/dL (23-92) 01/23/19 02:00 Urine Source CATH 01/23/19 02:20 Urine Color YELLOW 01/23/19 02:20 Urine Clarity CLEAR (CLEAR) 01/23/19 02:20 Urine pH 7.0 (4.6 - 8.0) 01/23/19 02:20 Ur Specific [place] 1.010 (1.005-1.030) 01/23/19 02:20 Urine Protein NEGATIVE mg/dL (NEGATIVE) 01/23/19 02:20 Urine Glucose (UA) NEGATIVE mg/dL (NEGATIVE) 01/23/19 02:20 Urine Ketones NEGATIVE mg/dL (NEGATIVE) 01/23/19 02:20 Urine Blood NEGATIVE (NEGATIVE) 01/23/19 02:20 Urine Nitrate NEGATIVE (NEGATIVE) 01/23/19 02:20 Urine Bilirubin NEGATIVE (NEGATIVE) 01/23/19 02:20 Urine Urobilinogen 0.2 E.U./dL (0.2 - 1.0) 01/23/19 02:20 Ur Leukocyte Esterase NEGATIVE (NEGATIVE) 01/23/19 02:20 Vancomycin Trough 19.4 ug/mL (5-10) H 01/29/19 12:00 - Physical Exam Vitals and I&O: Vital Signs Temp 98 F 01/30/19 18:00 Pulse 72 01/30/19 18:00 Resp 18 01/30/19 18:00 BP 131/88 01/30/19 18:00 Pulse Ox 98 01/30/19 16:00 Intake & Output 01/29/19 01/30/19 01/30/19 18:59 06:59 18:59 Intake Total 890 250 240 Balance 890 250 240 Weight (lbs) 92 lb 92 lb Intake: Intake, IV Amount 550 250 Azithromycin 500 mg In 250 Sodium Chloride 0.9% 250 ml @ 250 mls/hr IV Q24HR [facility] Rx#:[id number] Vancomycin HCl 0.75 gm In 250 250 Sodium Chloride 0.9% 250 ml @ 165 mls/hr IV Q12H [facility] Rx#:[id number] cefTRIAXone 1 gm In 50 Sodium Chloride 0.9% 50 ml @ 100 mls/hr IV Q24HR [facility] Rx#:[id number] Oral 0 Tube Feeding 240 240 Other 100 Other: # Voids 3 3 # Bowel Movements 1 1 Stool Characteristics Soft Soft Soft Brown Brown Brown Weight Source Bedscale Bedscale Active Medications: Current Medications Acetaminophen (Tylenol) 650 mg GT Q6H PRN PRN Reason: mild pain Stop: 03/24/19 13:09 Last Admin: 01/28/19 21:59 Dose: 650 mg Al Hydrox/Mg Hydrox/Simethicone (Maalox) 30 ml GT Q6HR PRN PRN Reason: Abdominal Pain Stop: 03/24/19 13:09 Albuterol Sulfate (Albuterol 2.5mg/3ml Neb Ud) 2.5 mg HHN Q2HR PRN PRN Reason: Shortness of Breath Stop: 03/24/19 13:09 Albuterol Sulfate (Albuterol 2.5mg/3ml Neb Ud) 2.5 mg HHN [id number] [facility] Stop: 03/24/19 14:59 Last Admin: 01/30/19 14:18 Dose: 2.5 mg Ascorbic Acid (Vitamin C) 500 mg GT Q12HR [facility] Stop: 03/24/19 20:59 Last Admin: 01/30/19 09:18 Dose: 500 mg Bisacodyl (Dulcolax 10 Mg Supp) 10 mg RC DAILY PRN PRN Reason: Constipation Stop: 03/24/19 13:09 Budesonide (Pulmicort) 0.5 mg HHN BID [facility] Stop: 03/24/19 16:59 Last Admin: 01/30/19 07:03 Dose: 0.5 mg Carvedilol (Coreg) 6.25 mg GT Q12H [facility] Stop: 03/24/19 13:14 Last Admin: 01/30/19 12:47 Dose: 6.25 mg [place] Oil/[place]izen [place] Balsam/Trypsin (Venelex) 1 appl TP DAILY [facility] Stop: 03/25/19 08:59 Last Admin: 01/30/19 09:19 Dose: 1 appl Dextrose (Glutose 40%) 18.75 gm PO UD PRN PRN Reason: Blood Glucose less than 70 Stop: 03/24/19 13:09 Docusate Sodium (Colace) 200 mg GT Q12H PRN PRN Reason: Constipation Stop: 03/24/19 13:09 Ferrous Sulfate (Iron) 325 mg PO DAILY [facility] Stop: 03/25/19 08:59 Last Admin: 01/30/19 09:18 Dose: 325 mg Glucagon (Glucagen) 1 mg IM PRN PRN PRN Reason: Blood Glucose less than 70 Stop: 03/24/19 13:09 Heparin Sodium (Porcine) (Heparin) 5,000 units SUBQ Q12H [facility] Stop: 03/24/19 13:14 Last Admin: 01/30/19 12:47 Dose: 5,000 units Azithromycin 500 mg/ Sodium (Chloride) 250 mls @ 250 mls/hr IV Q24HR [facility] Stop: 03/24/19 09:44 Last Admin: 01/30/19 10:06 Dose: 250 mls/hr Ceftriaxone Sodium 1 gm/ (Sodium Chloride) 50 mls @ 100 mls/hr IV Q24HR [facility] Stop: 03/24/19 09:44 Last Admin: 01/30/19 09:33 Dose: 100 mls/hr Dextrose/Sodium Chloride (D5-0.45ns) 1,000 mls @ 50 mls/hr IV .Q20H [facility] Stop: 03/26/19 22:14 Last Admin: 01/30/19 13:33 Dose: 50 mls/hr Vancomycin HCl 750 mg/ Sodium (Chloride) 250 mls @ 165 mls/hr IV Q12H [facility] Stop: 04/01/19 05:59 Insulin Human Lispro (Humalog Insulin Sliding Scale) 0 units SUBQ Q12HR [facility]; Protocol Stop: 03/24/19 20:59 Last Admin: 01/30/19 09:20 Dose: Not Given Lactobacillus Rhamnosus (Culturelle 15b) 1 each PO DAILY [facility] Stop: 03/25/19 08:59 Last Admin: 01/30/19 09:18 Dose: 1 each Lorazepam (Ativan) 1 mg GT Q6H PRN; Protocol PRN Reason: Anxiety Stop: 03/24/19 13:09 Last Admin: 01/29/19 21:44 Dose: 1 mg Magnesium Hydroxide (Milk Of Magnesia) 30 ml GT HS PRN PRN Reason: Constipation Stop: 03/24/19 13:09 Miscellaneous (Vancomycin Iv Per Pharmacy) 1 ea MC PRN PRN PRN Reason: PROTOCOL Stop: 03/24/19 10:40 Miscellaneous (Probiotic Screen) 1 ea PRN PRN PRN Reason: PROTOCOL Stop: 03/25/19 14:19 Pantoprazole Sodium (Protonix) 40 mg IVP DAILY [facility] Stop: 03/25/19 08:59 Last Admin: 01/30/19 09:00 Dose: 40 mg Sodium Phosphate (Fleet Enema) 135 ml RC Q48HR PRN PRN Reason: Constipation Stop: 03/24/19 13:09 General: weak, alert HEENT: NC/AT Neck: + trach Lungs: other (Respiratory failure, stable.) Cardiovascular: RRR, Normal S1 Abdomen: +GT Extremities: clear Neurological: muscle weakness, unsteady - Procedures Procedures: Procedures Procedure Code Date INSERTION OF FEEDING DEVICE INTO STOMACH, PERC APPROACH [id number] 01/02/19 INSERTION OF INFUSION DEVICE INTO R LOW ARM, PERC APPROACH [id number] 01/02/19 INTRODUCTION OF NUTRITIONAL INTO PERIPH VEIN, PERC APPROACH [id number] 01/02/19 RESPIRATORY VENTILATION, LESS THAN 24 CONSECUTIVE HOURS [id number] 04/07/18 Internal Medicine Assmt/Plan - Assessment Assessment: S/p fall. Chronic Respiratory Failure. Hypertension. Diabetes. CAD. Copd. Dyslipidemia. Gerd. S/p trach and PEG. - Plan Plan: continue vanco as per ID placement issues am labs continue current plan of care Nutritional Asmnt/Malnutr-PDOC - Dietary Evaluation Malnutrition Findings (Please click <Entered> for more info): Nutritional Asmnt/Malnutrition Start: 01/24/19 17: 26 Text: Status: Complete Freq: Protocol: Document 01/24/19 17:27 LCHENG (Rec: 01/24/19 17:49 [email or web address]) Nutritional Asmnt/Malnutrition Patient General Information Nutritional Screening High Risk Consult Diagnosis falls and weakness Pertinent Medical Hx/Surgical Hx HTN, DM, CAD, asthma/COPD, dyslipidemia, PUD/GERD, PEG/ Gtube Subjective Information Pt seen resting in bed at time of visit. Spoke with RN yesterday regarding TF regimen . Current Diet Order/ Nutrition Support Jevity 1.2 at 60ml/hr x 20hr Pertinent Medications vitC, colace, iron, heparin, humalog, culturelle Pertinent Labs 01/24 Cr 0.4, Glucose 99, POC 67-83 Nutritional Hx/Data Height 5 ft 4 in Height (Calculated Centimeters) 162.6 Current Weight (lbs) 91 lb Weight (Calculated Kilograms) 41.3 Weight (Calculated Grams) [address]7828.9 [place] Body Weight 120 Body Mass Index (BMI) 15.6 Weight Status Underweight GI Symptoms GI Symptoms None Last BM none Difficult in: None Estimated Nutritional Goals Calories/Kcals/Kg 25-30 IBW 55kg Kcals Calculated 7278-7152 Protein g/k-1.2 Protein Calculated 55-66 Fluid: ml 1265-1485ml (1ml/kcal) Nutritional Problem No current Nutrition Prob Problem N/A Intervention/Recommendation Comments 1. Continue with current TF regimen Jevity 1.2 at 60ml/hr x 20hr. It provides 1440kcal, 67g protein, 968ml free water, meeting 100% of nutritional needs 2. Monitor TF rate, tolerance, wt, skin integrity and labs 3. F/U as low risk in 7 days Expected Outcomes/Goals Expected Outcomes/Goals 1. Pt to meet at least 90% of nutritional needs via nutrition support with tolerance 2. Wt stability, skin to remain intact, labs to approach WNL.
--- NOTE | 2019-01-31 04:32 | Progress Notes ---
DATE: 01/30/2019 PULMONARY PROGRESS NOTE SUBJECTIVE: The patient appears to be doing okay, comfortable, in no distress. OBJECTIVE: VITAL SIGNS: Temperature 98.4, pulse 54, respirations 18, blood pressure 124/77, and saturation 98% on room air. CHEST: Good breath sounds. No wheezing, no crackles. HEART: Regular rate and rhythm. ABDOMEN: Soft. EXTREMITIES: No edema. LABORATORY DATA: WBC is 5.5, hemoglobin 9.8, hematocrit 28.9, and platelets 267. Sodium is 139, potassium 3.4, BUN 12, and creatinine 0.3. IMPRESSION: 1. Respiratory failure. 2. Pneumonia. 3. Chronic obstructive pulmonary disease. 4. Weakness. 5. Dysphagia. PLAN: 1. Continue nebulizer treatment. 2. Antibiotics. 3. Pulmonary toilet. 4. Supportive care. 5. Discharge planning. JOB# [id number]
[2019-01-31 06:10] LABS: HEMATOCRIT 28.9 % (41.0-60); MEAN CELL VOLUME 93.8 fl (81-100); MEAN CORPUSCULAR HEMOGLOBIN 32.3 pg (27.0-31.0); MEAN CORPUSCULAR HGB CONC 34.4 pg (28.0-36.0); MEAN PLATELET VOLUME 8.3 fl; PLATELET COUNT 214 Th/cmm (150-400); RED BLOOD COUNT 3.08 Mil/cmm (3.80-5.10); RED CELL DISTRIBUTION WIDTH 15.1 % (11.5-20.0)
[2019-01-31 06:19] LABS: ANION GAP 10.2 (7.0-16.0); BUN - UREA NITROGEN 13 mg/dL (7-25); CALCIUM SERUM 9.1 mg/dL (8.6-10.3); CARBON DIOXIDE 28.7 mEq/L (21.0-31.0); CHLORIDE 105 mEq/L (98-107); CREATININE - SERUM 0.4 mg/dL (0.6-1.2); GFR AFRICAN-AMERICAN > 60.0 ml/min (>90); GFR NON AFRICAN-AMERICAN > 60.0 ml/min; GLUCOSE 104 mg/dL (70-105); POTASSIUM SERUM 3.9 mEq/L (3.5-5.1); SODIUM SERUM 140 mEq/L (136-145)
[2019-01-31] MEDS: Albuterol Nebulizer 2.5mg/3mL HHN SCH ×4 (07:23→18:50)
[2019-01-31] MEDS: Budesonide 0.5 Mg/2 mL Ud HHN SCH ×2 (07:23→18:51)
[2019-01-31 07:46] LABS: BAND NEUTROPHILE 0 % (0-10); BASOPHIL 0 % (0-3); EOSINOPHIL 1 % (0-5); LYMPHOCYTE 21 % (20-50); MONOCYTE 5 % (2-10); NEUTROPHILS 73 % (40-80)
[2019-01-31 07:47] LABS: WHITE BLOOD COUNT 5.2 Th/cmm (4.8-10.8)
[2019-01-31] MEDS: INSULIN LISPRO SLIDING SCALE 100 UNITS/ML UNIT SUBQ SCH ×2 (08:57→22:11)
[2019-01-31] MEDS: Azithromycin 500 MG in Sodium Chloride 0.9% 250 ML IV SCH (09:06)
[2019-01-31] MEDS: Venelex 60gm Tube TP SCH (09:07)
[2019-01-31] MEDS: Multivitamin w/ Minerals Tab GT SCH (09:07)
[2019-01-31] MEDS: Lactobacillus Rhamnosus GG 15 Billion CFU CAP.SPRINK PO SCH (09:07)
[2019-01-31] MEDS: Ferrous Sulfate 325 MG TAB PO SCH (09:07)
[2019-01-31] MEDS: cefTRIAXone 1 GM in Sodium Chloride 0.9% 50 ML IV SCH (10:13)
--- NOTE | 2019-01-31 14:07 | Internal Medicine Prog Note ---
Internal Medicine Subjective - Subjective Patient is:: awake, interactive, in bed, confused (oriented x person only) Patient Complaints of:: other Per staff patient has:: no adverse event Internal Medicine Objective - Results Result Diagrams: 01/31/19 05:15 01/31/19 05:15 Recent Labs: Laboratory Last Values WBC 5.2 Th/cmm (4.8-10.8) 01/31/19 05:15 RBC 3.08 Mil/cmm (3.80-5.10) L 01/31/19 05:15 Hgb 10.0 gm/dL (12-16) L 01/31/19 05:15 Hct 28.9 % (41.0-60) L 01/31/19 05:15 MCV 93.8 fl (81-100) 01/31/19 05:15 MCH 32.3 pg (27.0-31.0) H 01/31/19 05:15 MCHC Differential 34.4 pg (28.0-36.0) 01/31/19 05:15 RDW 15.1 % (11.5-20.0) 01/31/19 05:15 Plt Count 214 Th/cmm (150-400) 01/31/19 05:15 MPV 8.3 fl 01/31/19 05:15 Add Manual Diff YES 01/31/19 05:15 Neutrophils % 69.3 % (40.0-80.0) 01/30/19 05:45 Band Neutrophils % 0 % (0-10) 01/31/19 05:15 Lymphocytes % 18.6 % (20.0-50.0) L 01/30/19 05:45 Monocytes % 8.8 % (2.0-10.0) 01/30/19 05:45 Eosinophils % 2.5 % (0.0-5.0) 01/30/19 05:45 Basophils % 0.8 % (0.0-2.0) 01/30/19 05:45 Neutrophils (Manual) 73 % (40-80) 01/31/19 05:15 Lymphocytes 21 % (20-50) 01/31/19 05:15 Monocytes 5 % (2-10) 01/31/19 05:15 Eosinophils 1 % (0-5) 01/31/19 05:15 Basophils 0 % (0-3) 01/31/19 05:15 PT 10.1 SECONDS (9.5-11.5) 01/23/19 02:00 INR 0.97 (0.5-1.4) 01/23/19 02:00 Sodium 140 mEq/L (136-145) 01/31/19 05:15 Potassium 3.9 mEq/L (3.5-5.1) 01/31/19 05:15 Chloride 105 mEq/L (98-107) 01/31/19 05:15 Carbon Dioxide 28.7 mEq/L (21.0-31.0) 01/31/19 05:15 Anion Gap 10.2 (7.0-16.0) 01/31/19 05:15 BUN 13 mg/dL (7-25) 01/31/19 05:15 Creatinine 0.4 mg/dL (0.6-1.2) L 01/31/19 05:15 Est GFR ( Amer) > 60.0 ml/min (>90) 01/31/19 05:15 Est GFR (Non-Af Amer) > 60.0 ml/min 01/31/19 05:15 BUN/Creatinine Ratio 32.5 01/31/19 05:15 Glucose 104 mg/dL (70-105) 01/31/19 05:15 POC Glucose 50 MG/DL (70 - 105) L 01/31/19 08:51 Whole Bld Lactic Acid 1.42 mmol/L (0.60-1.99) 01/23/19 02:00 Calcium 9.1 mg/dL (8.6-10.3) 01/31/19 05:15 Total Bilirubin 0.3 mg/dL (0.3-1.0) 01/30/19 05:45 AST 21 U/L (13-39) 01/30/19 05:45 ALT 31 U/L (7-52) 01/30/19 05:45 Alkaline Phosphatase 110 U/L (34-104) H 01/30/19 05:45 Creatine Kinase 36 U/L (30-223) 01/23/19 02:00 Troponin I < 0.01 ng/mL (0.01-0.05) L 01/23/19 02:00 B-Natriuretic Peptide 215.0 pg/mL (5.0-100.0) H 01/23/19 02:00 Total Protein 6.2 gm/dL (6.0-8.3) 01/30/19 05:45 Albumin 2.8 gm/dL (3.7-5.3) L 01/30/19 05:45 Globulin 3.4 gm/dL 01/30/19 05:45 Albumin/Globulin Ratio 0.8 (1.0-1.8) L 01/30/19 05:45 Triglycerides 120 mg/dL (<150) 01/23/19 02:00 Cholesterol 107 mg/dL (<200) 01/23/19 02:00 LDL Cholesterol Direct 66 mg/dL (75-193) L 01/23/19 02:00 HDL Cholesterol 29 mg/dL (23-92) 01/23/19 02:00 Urine Source CATH 01/23/19 02:20 Urine Color YELLOW 01/23/19 02:20 Urine Clarity CLEAR (CLEAR) 01/23/19 02:20 Urine pH 7.0 (4.6 - 8.0) 01/23/19 02:20 Ur Specific [place] 1.010 (1.005-1.030) 01/23/19 02:20 Urine Protein NEGATIVE mg/dL (NEGATIVE) 01/23/19 02:20 Urine Glucose (UA) NEGATIVE mg/dL (NEGATIVE) 01/23/19 02:20 Urine Ketones NEGATIVE mg/dL (NEGATIVE) 01/23/19 02:20 Urine Blood NEGATIVE (NEGATIVE) 01/23/19 02:20 Urine Nitrate NEGATIVE (NEGATIVE) 01/23/19 02:20 Urine Bilirubin NEGATIVE (NEGATIVE) 01/23/19 02:20 Urine Urobilinogen 0.2 E.U./dL (0.2 - 1.0) 01/23/19 02:20 Ur Leukocyte Esterase NEGATIVE (NEGATIVE) 01/23/19 02:20 Vancomycin Trough 19.4 ug/mL (5-10) H 01/29/19 12:00 - Physical Exam Vitals and I&O: Vital Signs Temp 97 F 01/31/19 12:00 Pulse 61 01/31/19 12:00 Resp 20 01/31/19 12:00 BP 140/45 01/31/19 12:00 Pulse Ox 100 01/31/19 11:38 Intake & Output 01/30/19 01/31/1919 18:59 06:59 18:59 Intake Total 540 240 Balance 540 240 Weight (lbs) 41.73 kg 41.73 kg Intake: Intake, IV Amount 300 Azithromycin 500 mg In 250 Sodium Chloride 0.9% 250 ml @ 250 mls/hr IV Q24HR [facility] Rx#:[id number] cefTRIAXone 1 gm In 50 Sodium Chloride 0.9% 50 ml @ 100 mls/hr IV Q24HR [facility] Rx#:[id number] Tube Feeding 240 240 Other: # Voids 3 1 # Bowel Movements 1 1 Stool Characteristics Soft Soft Soft Brown Brown Brown Weight Source Bedscale Bedscale Active Medications: Current Medications Acetaminophen (Tylenol) 650 mg GT Q6H PRN PRN Reason: mild pain Stop: 03/24/19 13:09 Last Admin: 01/28/19 21:59 Dose: 650 mg Al Hydrox/Mg Hydrox/Simethicone (Maalox) 30 ml GT Q6HR PRN PRN Reason: Abdominal Pain Stop: 03/24/19 13:09 Albuterol Sulfate (Albuterol 2.5mg/3ml Neb Ud) 2.5 mg HHN Q2HR PRN PRN Reason: Shortness of Breath Stop: 03/24/19 13:09 Albuterol Sulfate (Albuterol 2.5mg/3ml Neb Ud) 2.5 mg HHN [id number] [facility] Stop: 03/24/19 14:59 Last Admin: 01/31/19 10:14 Dose: 2.5 mg Ascorbic Acid (Vitamin C) 500 mg GT Q12HR [facility] Stop: 03/24/19 20:59 Last Admin: 01/31/19 09:07 Dose: 500 mg Bisacodyl (Dulcolax 10 Mg Supp) 10 mg RC DAILY PRN PRN Reason: Constipation Stop: 03/24/19 13:09 Budesonide (Pulmicort) 0.5 mg HHN BID [facility] Stop: 03/24/19 16:59 Last Admin: 01/31/19 07:23 Dose: 0.5 mg Carvedilol (Coreg) 6.25 mg GT Q12H [facility] Stop: 03/24/19 13:14 Last Admin: 01/31/19 02:02 Dose: 6.25 mg [place] Oil/[place] Balsam/Trypsin (Venelex) 1 appl TP DAILY [facility] Stop: 03/25/19 08:59 Last Admin: 01/31/19 09:07 Dose: 1 appl Dextrose (Glutose 40%) 18.75 gm PO UD PRN PRN Reason: Blood Glucose less than 70 Stop: 03/24/19 13:09 Docusate Sodium (Colace) 200 mg GT Q12H PRN PRN Reason: Constipation Stop: 03/24/19 13:09 Ferrous Sulfate (Iron) 325 mg PO DAILY [facility] Stop: 03/25/19 08:59 Last Admin: 01/31/19 09:07 Dose: 325 mg Glucagon (Glucagen) 1 mg IM PRN PRN PRN Reason: Blood Glucose less than 70 Stop: 03/24/19 13:09 Heparin Sodium (Porcine) (Heparin) 5,000 units SUBQ Q12H [facility] Stop: 03/24/19 13:14 Last Admin: 01/31/19 02:02 Dose: 5,000 units Azithromycin 500 mg/ Sodium (Chloride) 250 mls @ 250 mls/hr IV Q24HR [facility] Stop: 03/24/19 09:44 Last Admin: 01/31/19 09:06 Dose: 250 mls/hr Ceftriaxone Sodium 1 gm/ (Sodium Chloride) 50 mls @ 100 mls/hr IV Q24HR [facility] Stop: 03/24/19 09:44 Last Admin: 01/31/19 10:13 Dose: 100 mls/hr Dextrose/Sodium Chloride (D5-0.45ns) 1,000 mls @ 50 mls/hr IV .Q20H [facility] Stop: 03/26/19 22:14 Last Admin: 01/30/19 13:33 Dose: 50 mls/hr Vancomycin HCl 750 mg/ Sodium (Chloride) 250 mls @ 165 mls/hr IV Q12H [facility] Stop: 04/01/19 05:59 Last Admin: 01/31/19 05:49 Dose: 165 mls/hr Insulin Human Lispro (Humalog Insulin Sliding Scale) 0 units SUBQ Q12HR [facility]; Protocol Stop: 03/24/19 20:59 Last Admin: 01/31/19 08:57 Dose: Not Given Lactobacillus Rhamnosus (Culturelle 15b) 1 each PO DAILY [facility] Stop: 03/25/19 08:59 Last Admin: 01/31/19 09:07 Dose: 1 each Lorazepam (Ativan) 1 mg GT Q6H [facility]; Protocol PRN Reason: Anxiety Stop: 03/24/19 13:09 Last Admin: 01/31/19 10:04 Dose: 1 mg Magnesium Hydroxide (Milk Of Magnesia) 30 ml GT HS PRN PRN Reason: Constipation Stop: 03/24/19 13:09 Miscellaneous (Vancomycin Iv Per Pharmacy) 1 ea MC PRN PRN PRN Reason: PROTOCOL Stop: 03/24/19 10:40 Miscellaneous (Probiotic Screen) 1 ea MC PRN PRN PRN Reason: PROTOCOL Stop: 03/25/19 14:19 Pantoprazole Sodium (Protonix) 40 mg IVP DAILY [facility] Stop: 03/25/19 08:59 Last Admin: 01/31/19 09:06 Dose: 40 mg Sodium Phosphate (Fleet Enema) 135 ml RC Q48HR PRN PRN Reason: Constipation Stop: 03/24/19 13:09 Physical Exam: 58 y/o female patient recently had a fall, possible syncope. General: weak, alert HEENT: NC/AT Neck: + trach Lungs: other (Respiratory failure, stable.) Cardiovascular: RRR, Normal S1 Abdomen: +GT Extremities: clear Neurological: muscle weakness, unsteady - Procedures Procedures: Procedures Procedure Code Date INSERTION OF FEEDING DEVICE INTO STOMACH, PERC APPROACH [id number] 01/02/19 INSERTION OF INFUSION DEVICE INTO R LOW ARM, PERC APPROACH [id number] 01/02/19 INTRODUCTION OF NUTRITIONAL INTO PERIPH VEIN, PERC APPROACH [id number] 01/02/19 RESPIRATORY VENTILATION, LESS THAN 24 CONSECUTIVE HOURS [id number] 04/07/18 Internal Medicine Assmt/Plan - Assessment Assessment: S/p fall. Chronic Respiratory Failure. Hypertension. Diabetes. CAD. Copd. Dyslipidemia. Gerd. S/p trach and PEG. Nutritional Asmnt/Malnutr-PDOC - Dietary Evaluation Malnutrition Findings (Please click <Entered> for more info): Nutritional Asmnt/Malnutrition Start: 01/24/19 17: 26 Text: Status: Complete Freq: Protocol: Document 01/24/19 17:27 LCHENG (Rec: 01/24/19 17:49 [email or web address]) Nutritional Asmnt/Malnutrition Patient General Information Nutritional Screening High Risk Consult Diagnosis falls and weakness Pertinent Medical Hx/Surgical Hx HTN, DM, CAD, asthma/COPD, dyslipidemia, PUD/GERD, PEG/ Gtube Subjective Information Pt seen resting in bed at time of visit. Spoke with RN yesterday regarding TF regimen . Current Diet Order/ Nutrition Support Jevity 1.2 at 60ml/hr x 20hr Pertinent Medications vitC, colace, iron, heparin, humalog, culturelle Pertinent Labs 01/24 Cr 0.4, Glucose 99, POC 67-83 Nutritional Hx/Data Height 1.63 m Height (Calculated Centimeters) 162.6 Current Weight (lbs) 41.277 kg Weight (Calculated Kilograms) 41.3 Weight (Calculated Grams) [address]65.[address] Body Weight 120 Body Mass Index (BMI) 15.6 Weight Status Underweight GI Symptoms GI Symptoms None Last BM none Difficult in: None Estimated Nutritional Goals Calories/Kcals/Kg 25-30 IBW 55kg Kcals Calculated 4388-5684 Protein g/k-1.2 Protein Calculated 55-66 Fluid: ml 1265-1485ml (1ml/kcal) Nutritional Problem No current Nutrition Prob Problem N/A Intervention/Recommendation Comments 1. Continue with current TF regimen Jevity 1.2 at 60ml/hr x 20hr. It provides 1440kcal, 67g protein, 968ml free water, meeting 100% of nutritional needs 2. Monitor TF rate, tolerance, wt, skin integrity and labs 3. F/U as low risk in 7 days Expected Outcomes/Goals Expected Outcomes/Goals 1. Pt to meet at least 90% of nutritional needs via nutrition support with tolerance 2. Wt stability, skin to remain intact, labs to approach WNL.
--- NOTE | 2019-02-01 00:54 | Infectious Disease Prog Note ---
Infectious Disease Subjective - Review of Systems Service Date: 01/31/19 Subjective: There is no new change, no fever. Infectious Disease Objective - Results Result Diagrams: 01/31/19 05:15 01/31/19 05:15 Recent Labs: Laboratory Last Values WBC 5.2 Th/cmm (4.8-10.8) 01/31/19 05:15 RBC 3.08 Mil/cmm (3.80-5.10) L 01/31/19 05:15 Hgb 10.0 gm/dL (12-16) L 01/31/19 05:15 Hct 28.9 % (41.0-60) L 01/31/19 05:15 MCV 93.8 fl (81-100) 01/31/19 05:15 MCH 32.3 pg (27.0-31.0) H 01/31/19 05:15 MCHC Differential 34.4 pg (28.0-36.0) 01/31/19 05:15 RDW 15.1 % (11.5-20.0) 01/31/19 05:15 Plt Count 214 Th/cmm (150-400) 01/31/19 05:15 MPV 8.3 fl 01/31/19 05:15 Add Manual Diff YES 01/31/19 05:15 Neutrophils % 69.3 % (40.0-80.0) 01/30/19 05:45 Band Neutrophils % 0 % (0-10) 01/31/19 05:15 Lymphocytes % 18.6 % (20.0-50.0) L 01/30/19 05:45 Monocytes % 8.8 % (2.0-10.0) 01/30/19 05:45 Eosinophils % 2.5 % (0.0-5.0) 01/30/19 05:45 Basophils % 0.8 % (0.0-2.0) 01/30/19 05:45 Neutrophils (Manual) 73 % (40-80) 01/31/19 05:15 Lymphocytes 21 % (20-50) 01/31/19 05:15 Monocytes 5 % (2-10) 01/31/19 05:15 Eosinophils 1 % (0-5) 01/31/19 05:15 Basophils 0 % (0-3) 01/31/19 05:15 PT 10.1 SECONDS (9.5-11.5) 01/23/19 02:00 INR 0.97 (0.5-1.4) 01/23/19 02:00 Sodium 140 mEq/L (136-145) 01/31/19 05:15 Potassium 3.9 mEq/L (3.5-5.1) 01/31/19 05:15 Chloride 105 mEq/L (98-107) 01/31/19 05:15 Carbon Dioxide 28.7 mEq/L (21.0-31.0) 01/31/19 05:15 Anion Gap 10.2 (7.0-16.0) 01/31/19 05:15 BUN 13 mg/dL (7-25) 01/31/19 05:15 Creatinine 0.4 mg/dL (0.6-1.2) L 01/31/19 05:15 Est GFR ( Amer) > 60.0 ml/min (>90) 01/31/19 05:15 Est GFR (Non-Af Amer) > 60.0 ml/min 01/31/19 05:15 BUN/Creatinine Ratio 32.5 01/31/19 05:15 Glucose 104 mg/dL (70-105) 01/31/19 05:15 POC Glucose 112 MG/DL (70 - 105) H 01/31/19 22:55 Whole Bld Lactic Acid 1.42 mmol/L (0.60-1.99) 01/23/19 02:00 Calcium 9.1 mg/dL (8.6-10.3) 01/31/19 05:15 Total Bilirubin 0.3 mg/dL (0.3-1.0) 01/30/19 05:45 AST 21 U/L (13-39) 01/30/19 05:45 ALT 31 U/L (7-52) 01/30/19 05:45 Alkaline Phosphatase 110 U/L (34-104) H 01/30/19 05:45 Creatine Kinase 36 U/L (30-223) 01/23/19 02:00 Troponin I < 0.01 ng/mL (0.01-0.05) L 01/23/19 02:00 B-Natriuretic Peptide 215.0 pg/mL (5.0-100.0) H 01/23/19 02:00 Total Protein 6.2 gm/dL (6.0-8.3) 01/30/19 05:45 Albumin 2.8 gm/dL (3.7-5.3) L 01/30/19 05:45 Globulin 3.4 gm/dL 01/30/19 05:45 Albumin/Globulin Ratio 0.8 (1.0-1.8) L 01/30/19 05:45 Triglycerides 120 mg/dL (<150) 01/23/19 02:00 Cholesterol 107 mg/dL (<200) 01/23/19 02:00 LDL Cholesterol Direct 66 mg/dL (75-193) L 01/23/19 02:00 HDL Cholesterol 29 mg/dL (23-92) 01/23/19 02:00 Urine Source CATH 01/23/19 02:20 Urine Color YELLOW 01/23/19 02:20 Urine Clarity CLEAR (CLEAR) 01/23/19 02:20 Urine pH 7.0 (4.6 - 8.0) 01/23/19 02:20 Ur Specific [place] 1.010 (1.005-1.030) 01/23/19 02:20 Urine Protein NEGATIVE mg/dL (NEGATIVE) 01/23/19 02:20 Urine Glucose (UA) NEGATIVE mg/dL (NEGATIVE) 01/23/19 02:20 Urine Ketones NEGATIVE mg/dL (NEGATIVE) 01/23/19 02:20 Urine Blood NEGATIVE (NEGATIVE) 01/23/19 02:20 Urine Nitrate NEGATIVE (NEGATIVE) 01/23/19 02:20 Urine Bilirubin NEGATIVE (NEGATIVE) 01/23/19 02:20 Urine Urobilinogen 0.2 E.U./dL (0.2 - 1.0) 01/23/19 02:20 Ur Leukocyte Esterase NEGATIVE (NEGATIVE) 01/23/19 02:20 Vancomycin Trough 19.4 ug/mL (5-10) H 01/29/19 12:00 - Physical Exam Vitals and I&O: Vital Signs Temp 98.3 F 02/01/19 00:04 Pulse 85 02/01/19 00:04 Resp 19 02/01/19 00:04 BP 128/71 02/01/19 00:04 Pulse Ox 96 02/01/19 00:04 Intake & Output 04/05/19 04/05/19 04/06/19 06:59 18:59 06:59 Intake Total 240 450 Balance 240 450 Weight (lbs) 41.73 kg 41.73 kg Intake: Intake, IV Amount 250 Vancomycin HCl 750 mg In 250 Sodium Chloride 0.9% 250 ml @ 165 mls/hr IV Q12H [facility] Rx#:[id number] Tube Feeding 240 200 Other: # Voids 1 3 # Bowel Movements 1 1 Stool Characteristics Soft Soft Soft Brown Brown Brown Weight Source Bedscale Bedscale Active Medications: Current Medications Acetaminophen (Tylenol) 650 mg GT Q6H PRN PRN Reason: mild pain Stop: 03/24/19 13:09 Last Admin: 01/28/19 21:59 Dose: 650 mg Al Hydrox/Mg Hydrox/Simethicone (Maalox) 30 ml GT Q6HR PRN PRN Reason: Abdominal Pain Stop: 03/24/19 13:09 Albuterol Sulfate (Albuterol 2.5mg/3ml Neb Ud) 2.5 mg HHN Q2HR PRN PRN Reason: Shortness of Breath Stop: 03/24/19 13:09 Albuterol Sulfate (Albuterol 2.5mg/3ml Neb Ud) 2.5 mg HHN [id number] [facility] Stop: 03/24/19 14:59 Last Admin: 01/31/19 18:50 Dose: 2.5 mg Ascorbic Acid (Vitamin C) 500 mg GT Q12HR [facility] Stop: 03/24/19 20:59 Last Admin: 01/31/19 21:41 Dose: 500 mg Bisacodyl (Dulcolax 10 Mg Supp) 10 mg RC DAILY PRN PRN Reason: Constipation Stop: 03/24/19 13:09 Budesonide (Pulmicort) 0.5 mg HHN BID [facility] Stop: 03/24/19 16:59 Last Admin: 01/31/19 18:51 Dose: 0.5 mg Carvedilol (Coreg) 6.25 mg GT Q12H [facility] Stop: 03/24/19 13:14 Last Admin: 01/31/19 13:30 Dose: Not Given [place] Oil/[place] Balsam/Trypsin (Venelex) 1 appl TP DAILY [facility] Stop: 03/25/19 08:59 Last Admin: 01/31/19 09:07 Dose: 1 appl Dextrose (Glutose 40%) 18.75 gm PO UD PRN PRN Reason: Blood Glucose less than 70 Stop: 03/24/19 13:09 Docusate Sodium (Colace) 200 mg GT Q12H PRN PRN Reason: Constipation Stop: 03/24/19 13:09 Ferrous Sulfate (Iron) 325 mg PO DAILY [facility] Stop: 03/25/19 08:59 Last Admin: 01/31/19 09:07 Dose: 325 mg Glucagon (Glucagen) 1 mg IM PRN PRN PRN Reason: Blood Glucose less than 70 Stop: 03/24/19 13:09 Heparin Sodium (Porcine) (Heparin) 5,000 units SUBQ Q12H [facility] Stop: 03/24/19 13:14 Last Admin: 01/31/19 14:09 Dose: 5,000 units Azithromycin 500 mg/ Sodium (Chloride) 250 mls @ 250 mls/hr IV Q24HR [facility] Stop: 03/24/19 09:44 Last Admin: 01/31/19 09:06 Dose: 250 mls/hr Ceftriaxone Sodium 1 gm/ (Sodium Chloride) 50 mls @ 100 mls/hr IV Q24HR [facility] Stop: 03/24/19 09:44 Last Admin: 01/31/19 10:13 Dose: 100 mls/hr Dextrose/Sodium Chloride (D5-0.45ns) 1,000 mls @ 50 mls/hr IV .Q20H [facility] Stop: 03/26/19 22:14 Last Admin: 01/30/19 13:33 Dose: 50 mls/hr Vancomycin HCl 750 mg/ Sodium (Chloride) 250 mls @ 165 mls/hr IV Q12H [facility] Stop: 04/01/19 05:59 Last Admin: 01/31/19 16:59 Dose: 165 mls/hr Insulin Human Lispro (Humalog Insulin Sliding Scale) 0 units SUBQ Q12HR [facility]; Protocol Stop: 03/24/19 20:59 Last Admin: 01/31/19 22:11 Dose: Not Given Lactobacillus Rhamnosus (Culturelle 15b) 1 each PO DAILY [facility] Stop: 03/25/19 08:59 Last Admin: 01/31/19 09:07 Dose: 1 each Lorazepam (Ativan) 1 mg GT Q6H PRN; Protocol PRN Reason: Anxiety Stop: 03/24/19 13:09 Last Admin: 01/31/19 16:47 Dose: 1 mg Magnesium Hydroxide (Milk Of Magnesia) 30 ml GT HS PRN PRN Reason: Constipation Stop: 03/24/19 13:09 Miscellaneous (Vancomycin Iv Per Pharmacy) 1 ea MC PRN PRN PRN Reason: PROTOCOL Stop: 03/24/19 10:40 Miscellaneous (Probiotic Screen) 1 ea MC PRN PRN PRN Reason: PROTOCOL Stop: 03/25/19 14:19 Pantoprazole Sodium (Protonix) 40 mg IVP DAILY [facility] Stop: 03/25/19 08:59 Last Admin: 01/31/19 09:06 Dose: 40 mg Sodium Phosphate (Fleet Enema) 135 ml RC Q48HR PRN PRN Reason: Constipation Stop: 03/24/19 13:09 General: no acute distress, well developed, well nourished HEENT: atraumatic, normocephalic, PERRLA, EOMI Neck: supple, no thyromegaly Cardiovascular: S1S2, regular Lungs: clear to auscultation bilaterally, clear to percussion Abdomen: soft, no tender, no distended, no mass, no rebound Extremities: no cyanosis, no clubbing, no edema Neurological: awake, alert Skin: intact - Procedures Procedures: Procedures Procedure Code Date INSERTION OF FEEDING DEVICE INTO STOMACH, PERC APPROACH [id number] 01/02/19 INSERTION OF INFUSION DEVICE INTO R LOW ARM, PERC APPROACH [id number] 01/02/19 INTRODUCTION OF NUTRITIONAL INTO PERIPH VEIN, PERC APPROACH [id number] 01/02/19 RESPIRATORY VENTILATION, LESS THAN 24 CONSECUTIVE HOURS [id number] 04/07/18 Infectious Disease Assmt/Plan - Assessment Assessment: 1. MRSA sepsis. treated 2. discitis/osteomyelitis of lumbar spine. 3. Dementia. 4. Dysphagia requiring G-tube placement, but she has pulled out G-tube 3 times already. 5. Dementia. 6. Protein-calorie malnutrition and failure to thrive. 7. Psychosis. 8. Chronic obstructive pulmonary disease. 9. Leukopenia. - Plan Plan: Continue vanco iv for 6 to 8 weeks with trough level 12 - 20. MRI in 1 weeks. Nutritional Asmnt/Malnutr-PDOC - Dietary Evaluation Malnutrition Findings (Please click <Entered> for more info): Nutritional Asmnt/Malnutrition Start: 01/24/19 17: 26 Text: Status: Complete Freq: Protocol: Document 01/24/19 17:27 LCHENG (Rec: 01/24/19 17:49 [id number] [id number]) Nutritional Asmnt/Malnutrition Patient General Information Nutritional Screening High Risk Consult Diagnosis falls and weakness Pertinent Medical Hx/Surgical Hx HTN, DM, CAD, asthma/COPD, dyslipidemia, PUD/GERD, PEG/ Gtube Subjective Information Pt seen resting in bed at time of visit. Spoke with RN yesterday regarding TF regimen . Current Diet Order/ Nutrition Support Jevity 1.2 at 60ml/hr x 20hr Pertinent Medications vitC, colace, iron, heparin, humalog, culturelle Pertinent Labs 01/24 Cr 0.4, Glucose 99, POC 67-83 Nutritional Hx/Data Height 1.63 m Height (Calculated Centimeters) 162.6 Current Weight (lbs) 41.277 kg Weight (Calculated Kilograms) 41.3 Weight (Calculated Grams) 24448.9 [place] Body Weight 120 Body Mass Index (BMI) 15.6 Weight Status Underweight GI Symptoms GI Symptoms None Last BM none Difficult in: None Estimated Nutritional Goals Calories/Kcals/Kg 25-30 IBW 55kg Kcals Calculated 9231-0885 Protein g/k-1.2 Protein Calculated 55-66 Fluid: ml 1265-1485ml (1ml/kcal) Nutritional Problem No current Nutrition Prob Problem N/A Intervention/Recommendation Comments 1. Continue with current TF regimen Jevity 1.2 at 60ml/hr x 20hr. It provides 1440kcal, 67g protein, 968ml free water, meeting 100% of nutritional needs 2. Monitor TF rate, tolerance, wt, skin integrity and labs 3. F/U as low risk in 7 days Expected Outcomes/Goals Expected Outcomes/Goals 1. Pt to meet at least 90% of nutritional needs via nutrition support with tolerance 2. Wt stability, skin to remain intact, labs to approach WNL.
[2019-02-01 06:34] LABS: ANION GAP 13.8 (7.0-16.0); BUN - UREA NITROGEN 15 mg/dL (7-25); CARBON DIOXIDE 23.9 mEq/L (21.0-31.0); CHLORIDE 105 mEq/L (98-107); CREATININE - SERUM 0.4 mg/dL (0.6-1.2); GFR AFRICAN-AMERICAN > 60.0 ml/min (>90); GFR NON AFRICAN-AMERICAN > 60.0 ml/min; GLUCOSE 103 mg/dL (70-105); POTASSIUM SERUM 3.7 mEq/L (3.5-5.1); SODIUM SERUM 139 mEq/L (136-145)
[2019-02-01] MEDS: Albuterol Nebulizer 2.5mg/3mL HHN SCH ×4 (06:44→18:39)
[2019-02-01] MEDS: Budesonide 0.5 Mg/2 mL Ud HHN SCH ×2 (06:50→18:39)
[2019-02-01] MEDS: Lactobacillus Rhamnosus GG 15 Billion CFU CAP.SPRINK PO SCH (09:19)
[2019-02-01] MEDS: Multivitamin w/ Minerals Tab GT SCH (09:19)
[2019-02-01] MEDS: Ferrous Sulfate 325 MG TAB PO SCH (09:19)
[2019-02-01] MEDS: INSULIN LISPRO SLIDING SCALE 100 UNITS/ML UNIT SUBQ SCH ×2 (09:19→21:10)
[2019-02-01] MEDS: cefTRIAXone 1 GM in Sodium Chloride 0.9% 50 ML IV SCH (09:23)
[2019-02-01] MEDS: Azithromycin 500 MG in Sodium Chloride 0.9% 250 ML IV SCH (10:31)
[2019-02-01] MEDS: D5-0.45NS 1,000 ML IV SCH (15:27)
[2019-02-01] MEDS: Venelex 60gm Tube TP SCH (16:45)
--- NOTE | 2019-02-01 19:36 | Progress Notes ---
DATE: 01/31/2019 PULMONARY PROGRESS NOTE SUBJECTIVE: The patient appears to be doing okay, comfortable, in no distress. OBJECTIVE: VITAL SIGNS: Temperature 98.7, pulse 53 to 80, respirations 20, blood pressure is 147/88, saturation 99%. CHEST: Good breath sounds. No wheezing. Few rhonchi. HEART: Regular rate and rhythm. ABDOMEN: Soft. EXTREMITIES: No edema. LABORATORY DATA: WBC 5.2, hemoglobin 10.0, hematocrit 28.9, platelets 214. Sodium is 140, potassium 3.9, BUN 13, creatinine 0.4. IMPRESSION: 1. 1. Respiratory failure. 2. 2. Pneumonia. 3. 3. Dysphagia. 4. 4. Weakness. 5. 5. Chronic obstructive pulmonary disease. 6. PLAN: Continue nebulizer treatment, pulmonary toilet and supportive care. Discharge plan in progress. JOB# [id number]
--- NOTE | 2019-02-01 23:29 | Progress Notes ---
DATE: 02/01/2019 SUBJECTIVE: The patient was seen in her room. The patient is a poor historian due to medical condition, appears to be confused and episodes of trying to get out from the bed. The patient currently on bilateral soft wrist restraints for safety. Otherwise, the patient appears to be in no acute distress. OBJECTIVE: VITAL SIGNS: Temperature 97.2, heart rate 81, blood pressure 127/72, respirations 18, and 99% on room air. HEENT: Head is atraumatic and normocephalic. Eyes: Bilateral conjunctivae are clear. Bilateral pupils are equally round and reactive. NECK: Supple. No JVD. The patient has a tracheostomy tube in place. CARDIOVASCULAR: S1 and S2, without murmur. PULMONARY: Clear to auscultation. GASTROINTESTINAL: Soft and nontender without guarding. Positive bowel sounds, positive gastrostomy tube in place. MUSCULOSKELETAL: No clubbing. No cyanosis noted. ASSESSMENT: 1. Respiratory failure. 2. Dysphagia. 3. Hypertension. 4. Diabetes. 5. Coronary artery disease. 6. Hyperlipidemia. PLAN: We will continue antibiotics and follow up us with the ID doctor. The patient has been on discharge planning pending for placement. Treatment plans were discussed with the patient's nurse. Treatment plans were discussed with Dr. Kearns. JOB# [id number]
[2019-02-02] MEDS: Budesonide 0.5 Mg/2 mL Ud HHN SCH (06:58)
[2019-02-02] MEDS: Albuterol Nebulizer 2.5mg/3mL HHN SCH ×4 (06:59→19:12)
[2019-02-02] MEDS: INSULIN LISPRO SLIDING SCALE 100 UNITS/ML UNIT SUBQ SCH ×2 (09:05→21:02)
[2019-02-02] MEDS: Multivitamin w/ Minerals Tab GT SCH (09:09)
[2019-02-02] MEDS: Ferrous Sulfate 325 MG TAB PO SCH (09:09)
[2019-02-02] MEDS: Lactobacillus Rhamnosus GG 15 Billion CFU CAP.SPRINK PO SCH (09:09)
[2019-02-02] MEDS: D5-0.45NS 1,000 ML IV SCH (09:25)
[2019-02-02] MEDS: cefTRIAXone 1 GM in Sodium Chloride 0.9% 50 ML IV SCH (10:45)
[2019-02-02] MEDS: Azithromycin 500 MG in Sodium Chloride 0.9% 250 ML IV SCH (11:27)
--- NOTE | 2019-02-02 13:50 | Internal Medicine Prog Note ---
Internal Medicine Subjective - Subjective Service Date: 02/02/19 Patient is:: awake, interactive, in bed, confused (oriented x person only) Patient Complaints of:: other Per staff patient has:: no adverse event Internal Medicine Objective - Results Result Diagrams: 01/31/19 05:15 02/01/19 05:30 Recent Labs: Laboratory Last Values WBC 5.2 Th/cmm (4.8-10.8) 01/31/19 05:15 RBC 3.08 Mil/cmm (3.80-5.10) L 01/31/19 05:15 Hgb 10.0 gm/dL (12-16) L 01/31/19 05:15 Hct 28.9 % (41.0-60) L 01/31/19 05:15 MCV 93.8 fl (81-100) 01/31/19 05:15 MCH 32.3 pg (27.0-31.0) H 01/31/19 05:15 MCHC Differential 34.4 pg (28.0-36.0) 01/31/19 05:15 RDW 15.1 % (11.5-20.0) 01/31/19 05:15 Plt Count 214 Th/cmm (150-400) 01/31/19 05:15 MPV 8.3 fl 01/31/19 05:15 Add Manual Diff YES 01/31/19 05:15 Neutrophils % 69.3 % (40.0-80.0) 01/30/19 05:45 Band Neutrophils % 0 % (0-10) 01/31/19 05:15 Lymphocytes % 18.6 % (20.0-50.0) L 01/30/19 05:45 Monocytes % 8.8 % (2.0-10.0) 01/30/19 05:45 Eosinophils % 2.5 % (0.0-5.0) 01/30/19 05:45 Basophils % 0.8 % (0.0-2.0) 01/30/19 05:45 Neutrophils (Manual) 73 % (40-80) 01/31/19 05:15 Lymphocytes 21 % (20-50) 01/31/19 05:15 Monocytes 5 % (2-10) 01/31/19 05:15 Eosinophils 1 % (0-5) 01/31/19 05:15 Basophils 0 % (0-3) 01/31/19 05:15 PT 10.1 SECONDS (9.5-11.5) 01/23/19 02:00 INR 0.97 (0.5-1.4) 01/23/19 02:00 Sodium 139 mEq/L (136-145) 02/01/19 05:30 Potassium 3.7 mEq/L (3.5-5.1) 02/01/19 05:30 Chloride 105 mEq/L (98-107) 02/01/19 05:30 Carbon Dioxide 23.9 mEq/L (21.0-31.0) 02/01/19 05:30 Anion Gap 13.8 (7.0-16.0) 02/01/19 05:30 BUN 15 mg/dL (7-25) 02/01/19 05:30 Creatinine 0.4 mg/dL (0.6-1.2) L 02/01/19 05:30 Est GFR ( Amer) > 60.0 ml/min (>90) 02/01/19 05:30 Est GFR (Non-Af Amer) > 60.0 ml/min 02/01/19 05:30 BUN/Creatinine Ratio 37.5 02/01/19 05:30 Glucose 103 mg/dL (70-105) 02/01/19 05:30 POC Glucose 89 MG/DL (70 - 105) 02/02/19 05:59 Whole Bld Lactic Acid 1.42 mmol/L (0.60-1.99) 01/23/19 02:00 Calcium 9.0 mg/dL (8.6-10.3) 02/01/19 05:30 Total Bilirubin 0.3 mg/dL (0.3-1.0) 01/30/19 05:45 AST 21 U/L (13-39) 01/30/19 05:45 ALT 31 U/L (7-52) 01/30/19 05:45 Alkaline Phosphatase 110 U/L (34-104) H 01/30/19 05:45 Creatine Kinase 36 U/L (30-223) 01/23/19 02:00 Troponin I < 0.01 ng/mL (0.01-0.05) L 01/23/19 02:00 B-Natriuretic Peptide 215.0 pg/mL (5.0-100.0) H 01/23/19 02:00 Total Protein 6.2 gm/dL (6.0-8.3) 01/30/19 05:45 Albumin 2.8 gm/dL (3.7-5.3) L 01/30/19 05:45 Globulin 3.4 gm/dL 01/30/19 05:45 Albumin/Globulin Ratio 0.8 (1.0-1.8) L 01/30/19 05:45 Triglycerides 120 mg/dL (<150) 01/23/19 02:00 Cholesterol 107 mg/dL (<200) 01/23/19 02:00 LDL Cholesterol Direct 66 mg/dL (75-193) L 01/23/19 02:00 HDL Cholesterol 29 mg/dL (23-92) 01/23/19 02:00 Urine Source CATH 01/23/19 02:20 Urine Color YELLOW 01/23/19 02:20 Urine Clarity CLEAR (CLEAR) 01/23/19 02:20 Urine pH 7.0 (4.6 - 8.0) 01/23/19 02:20 Ur Specific [place] 1.010 (1.005-1.030) 01/23/19 02:20 Urine Protein NEGATIVE mg/dL (NEGATIVE) 01/23/19 02:20 Urine Glucose (UA) NEGATIVE mg/dL (NEGATIVE) 01/23/19 02:20 Urine Ketones NEGATIVE mg/dL (NEGATIVE) 01/23/19 02:20 Urine Blood NEGATIVE (NEGATIVE) 01/23/19 02:20 Urine Nitrate NEGATIVE (NEGATIVE) 01/23/19 02:20 Urine Bilirubin NEGATIVE (NEGATIVE) 01/23/19 02:20 Urine Urobilinogen 0.2 E.U./dL (0.2 - 1.0) 01/23/19 02:20 Ur Leukocyte Esterase NEGATIVE (NEGATIVE) 01/23/19 02:20 Vancomycin Trough 17.1 ug/mL (5-10) H 02/01/19 05:30 - Physical Exam Vitals and I&O: Vital Signs Temp 98.3 F 02/02/19 08:00 Pulse 105 02/02/19 12:48 Resp 18 02/02/19 12:00 BP 144/92 02/02/19 12:48 Pulse Ox 97 02/02/19 10:58 Intake & Output 02/01/19 02/02/19 02/02/19 18:59 06:59 18:59 Intake Total 147 845 2393.333 Balance 455 632 6846.333 Weight (lbs) 92 lb 92 lb Intake: Intake, IV Amount 465 654 1314.333 Azithromycin 500 mg In 250 250 Sodium Chloride 0.9% 250 ml @ 250 mls/hr IV Q24HR [facility] Rx#:[id number] D5-0.45NS 1,000 ml @ 50 898.333 mls/hr IV .Q20H [facility] Rx#: [id number] Vancomycin HCl 750 mg In 250 250 Sodium Chloride 0.9% 250 ml @ 165 mls/hr IV Q12HR [facility] Rx#:[id number] cefTRIAXone 1 gm In 50 50 Sodium Chloride 0.9% 50 ml @ 100 mls/hr IV Q24HR [facility] Rx#:[id number] Tube Feeding 480 Other 200 Other: # Voids 3 3 # Bowel Movements 0 0 Weight Source Bedscale Bedscale Active Medications: Current Medications Acetaminophen (Tylenol) 650 mg GT Q6H PRN PRN Reason: mild pain Stop: 03/24/19 13:09 Last Admin: 01/28/19 21:59 Dose: 650 mg Al Hydrox/Mg Hydrox/Simethicone (Maalox) 30 ml GT Q6HR PRN PRN Reason: Abdominal Pain Stop: 03/24/19 13:09 Albuterol Sulfate (Albuterol 2.5mg/3ml Neb Ud) 2.5 mg HHN Q2HR PRN PRN Reason: Shortness of Breath Stop: 03/24/19 13:09 Albuterol Sulfate (Albuterol 2.5mg/3ml Neb Ud) 2.5 mg HHN [id number] [facility] Stop: 03/24/19 14:59 Last Admin: 02/02/19 10:53 Dose: 2.5 mg Ascorbic Acid (Vitamin C) 500 mg GT Q12HR [facility] Stop: 03/24/19 20:59 Last Admin: 02/02/19 09:09 Dose: 500 mg Bisacodyl (Dulcolax 10 Mg Supp) 10 mg RC DAILY PRN PRN Reason: Constipation Stop: 03/24/19 13:09 Budesonide (Pulmicort) 0.5 mg HHN BID [facility] Stop: 03/24/19 16:59 Last Admin: 02/02/19 06:58 Dose: 0.5 mg Carvedilol (Coreg) 6.25 mg GT Q12H [facility] Stop: 03/24/19 13:14 Last Admin: 02/02/19 12:48 Dose: 6.25 mg [place] Oil/[place] Balsam/Trypsin (Venelex) 1 appl TP DAILY [facility] Stop: 03/25/19 08:59 Last Admin: 02/01/19 16:45 Dose: Not Given Dextrose (Glutose 40%) 18.75 gm PO UD PRN PRN Reason: Blood Glucose less than 70 Stop: 03/24/19 13:09 Docusate Sodium (Colace) 200 mg GT Q12H PRN PRN Reason: Constipation Stop: 03/24/19 13:09 Ferrous Sulfate (Iron) 325 mg PO DAILY [facility] Stop: 03/25/19 08:59 Last Admin: 02/02/19 09:09 Dose: 325 mg Glucagon (Glucagen) 1 mg IM PRN PRN PRN Reason: Blood Glucose less than 70 Stop: 03/24/19 13:09 Heparin Sodium (Porcine) (Heparin) 5,000 units SUBQ Q12H [facility] Stop: 03/24/19 13:14 Last Admin: 02/02/19 12:49 Dose: 5,000 units Azithromycin 500 mg/ Sodium (Chloride) 250 mls @ 250 mls/hr IV Q24HR [facility] Stop: 03/24/19 09:44 Last Infusion: 02/02/19 12:27 Dose: Infused Ceftriaxone Sodium 1 gm/ (Sodium Chloride) 50 mls @ 100 mls/hr IV Q24HR [facility] Stop: 03/24/19 09:44 Last Infusion: 02/02/19 11:15 Dose: Infused Dextrose/Sodium Chloride (D5-0.45ns) 1,000 mls @ 50 mls/hr IV .Q20H [facility] Stop: 03/26/19 22:14 Last Admin: 02/02/19 09:25 Dose: 50 mls/hr Vancomycin HCl 750 mg/ Sodium (Chloride) 250 mls @ 165 mls/hr IV Q12HR [facility] Stop: 04/01/19 05:59 Last Infusion: 02/02/19 10:40 Dose: Infused Insulin Human Lispro (Humalog Insulin Sliding Scale) 0 units SUBQ Q12HR [facility]; Protocol Stop: 03/24/19 20:59 Last Admin: 02/02/19 09:05 Dose: Not Given Lactobacillus Rhamnosus (Culturelle 15b) 1 each PO DAILY [facility] Stop: 03/25/19 08:59 Last Admin: 02/02/19 09:09 Dose: 1 each Lorazepam (Ativan) 1 mg GT Q6H PRN; Protocol PRN Reason: Anxiety Stop: 03/24/19 13:09 Last Admin: 02/01/19 20:49 Dose: 1 mg Magnesium Hydroxide (Milk Of Magnesia) 30 ml GT HS PRN PRN Reason: Constipation Stop: 03/24/19 13:09 Miscellaneous (Vancomycin Iv Per Pharmacy) 1 ea MC PRN PRN PRN Reason: PROTOCOL Stop: 03/24/19 10:40 Miscellaneous (Probiotic Screen) 1 ea MC PRN PRN PRN Reason: PROTOCOL Stop: 03/25/19 14:19 Pantoprazole Sodium (Protonix) 40 mg IVP DAILY [facility] Stop: 03/25/19 08:59 Last Admin: 02/02/19 09:09 Dose: 40 mg Sodium Phosphate (Fleet Enema) 135 ml RC Q48HR PRN PRN Reason: Constipation Stop: 03/24/19 13:09 General: weak, alert HEENT: NC/AT Neck: + trach Lungs: other (Respiratory failure, stable.) Cardiovascular: RRR, Normal S1 Abdomen: +GT Extremities: clear Neurological: muscle weakness, unsteady - Procedures Procedures: Procedures Procedure Code Date INSERTION OF FEEDING DEVICE INTO STOMACH, PERC APPROACH [id number] 01/02/19 INSERTION OF INFUSION DEVICE INTO R LOW ARM, PERC APPROACH [id number] 01/02/19 INTRODUCTION OF NUTRITIONAL INTO PERIPH VEIN, PERC APPROACH [id number] 01/02/19 RESPIRATORY VENTILATION, LESS THAN 24 CONSECUTIVE HOURS [id number] 04/07/18 Internal Medicine Assmt/Plan - Assessment Assessment: S/p fall. Chronic Respiratory Failure. Hypertension. Diabetes. CAD. Copd. Dyslipidemia. Gerd. S/p trach and PEG. - Plan Plan: continue vanco as per ID placement issues am labs continue current plan of care Nutritional Asmnt/Malnutr-PDOC - Dietary Evaluation Malnutrition Findings (Please click <Entered> for more info): Nutritional Asmnt/Malnutrition Start: 01/24/19 17: 26 Text: Status: Complete Freq: Protocol: Document 01/24/19 17:27 LCHENG (Rec: 01/24/19 17:49 [email or web address]) Nutritional Asmnt/Malnutrition Patient General Information Nutritional Screening High Risk Consult Diagnosis falls and weakness Pertinent Medical Hx/Surgical Hx HTN, DM, CAD, asthma/COPD, dyslipidemia, PUD/GERD, PEG/ Gtube Subjective Information Pt seen resting in bed at time of visit. Spoke with RN yesterday regarding TF regimen . Current Diet Order/ Nutrition Support Jevity 1.2 at 60ml/hr x 20hr Pertinent Medications vitC, colace, iron, heparin, humalog, culturelle Pertinent Labs 01/24 Cr 0.4, Glucose 99, POC 67-83 Nutritional Hx/Data Height 5 ft 4 in Height (Calculated Centimeters) 162.6 Current Weight (lbs) 91 lb Weight (Calculated Kilograms) 41.3 Weight (Calculated Grams) 23604.9 [place] Body Weight 120 Body Mass Index (BMI) 15.6 Weight Status Underweight GI Symptoms GI Symptoms None Last BM none Difficult in: None Estimated Nutritional Goals Calories/Kcals/Kg 25-30 IBW 55kg Kcals Calculated 4522-4631 Protein g/k-1.2 Protein Calculated 55-66 Fluid: ml 1265-1485ml (1ml/kcal) Nutritional Problem No current Nutrition Prob Problem N/A Intervention/Recommendation Comments 1. Continue with current TF regimen Jevity 1.2 at 60ml/hr x 20hr. It provides 1440kcal, 67g protein, 968ml free water, meeting 100% of nutritional needs 2. Monitor TF rate, tolerance, wt, skin integrity and labs 3. F/U as low risk in 7 days Expected Outcomes/Goals Expected Outcomes/Goals 1. Pt to meet at least 90% of nutritional needs via nutrition support with tolerance 2. Wt stability, skin to remain intact, labs to approach WNL.
[2019-02-02] MEDS: Venelex 60gm Tube TP SCH (19:18)
--- NOTE | 2019-02-02 21:49 | Infectious Disease Prog Note ---
Infectious Disease Subjective - Review of Systems Service Date: 02/02/19 Subjective: There is no new change, no fever. Infectious Disease Objective - Results Result Diagrams: 01/31/19 05:15 02/01/19 05:30 Recent Labs: Laboratory Last Values WBC 5.2 Th/cmm (4.8-10.8) 01/31/19 05:15 RBC 3.08 Mil/cmm (3.80-5.10) L 01/31/19 05:15 Hgb 10.0 gm/dL (12-16) L 01/31/19 05:15 Hct 28.9 % (41.0-60) L 01/31/19 05:15 MCV 93.8 fl (81-100) 01/31/19 05:15 MCH 32.3 pg (27.0-31.0) H 01/31/19 05:15 MCHC Differential 34.4 pg (28.0-36.0) 01/31/19 05:15 RDW 15.1 % (11.5-20.0) 01/31/19 05:15 Plt Count 214 Th/cmm (150-400) 01/31/19 05:15 MPV 8.3 fl 01/31/19 05:15 Add Manual Diff YES 01/31/19 05:15 Neutrophils % 69.3 % (40.0-80.0) 01/30/19 05:45 Band Neutrophils % 0 % (0-10) 01/31/19 05:15 Lymphocytes % 18.6 % (20.0-50.0) L 01/30/19 05:45 Monocytes % 8.8 % (2.0-10.0) 01/30/19 05:45 Eosinophils % 2.5 % (0.0-5.0) 01/30/19 05:45 Basophils % 0.8 % (0.0-2.0) 01/30/19 05:45 Neutrophils (Manual) 73 % (40-80) 01/31/19 05:15 Lymphocytes 21 % (20-50) 01/31/19 05:15 Monocytes 5 % (2-10) 01/31/19 05:15 Eosinophils 1 % (0-5) 01/31/19 05:15 Basophils 0 % (0-3) 01/31/19 05:15 PT 10.1 SECONDS (9.5-11.5) 01/23/19 02:00 INR 0.97 (0.5-1.4) 01/23/19 02:00 Sodium 139 mEq/L (136-145) 02/01/19 05:30 Potassium 3.7 mEq/L (3.5-5.1) 02/01/19 05:30 Chloride 105 mEq/L (98-107) 02/01/19 05:30 Carbon Dioxide 23.9 mEq/L (21.0-31.0) 02/01/19 05:30 Anion Gap 13.8 (7.0-16.0) 02/01/19 05:30 BUN 15 mg/dL (7-25) 02/01/19 05:30 Creatinine 0.4 mg/dL (0.6-1.2) L 02/01/19 05:30 Est GFR ( Amer) > 60.0 ml/min (>90) 02/01/19 05:30 Est GFR (Non-Af Amer) > 60.0 ml/min 02/01/19 05:30 BUN/Creatinine Ratio 37.5 02/01/19 05:30 Glucose 103 mg/dL (70-105) 02/01/19 05:30 POC Glucose 89 MG/DL (70 - 105) 02/02/19 05:59 Whole Bld Lactic Acid 1.42 mmol/L (0.60-1.99) 01/23/19 02:00 Calcium 9.0 mg/dL (8.6-10.3) 02/01/19 05:30 Total Bilirubin 0.3 mg/dL (0.3-1.0) 01/30/19 05:45 AST 21 U/L (13-39) 01/30/19 05:45 ALT 31 U/L (7-52) 01/30/19 05:45 Alkaline Phosphatase 110 U/L (34-104) H 01/30/19 05:45 Creatine Kinase 36 U/L (30-223) 01/23/19 02:00 Troponin I < 0.01 ng/mL (0.01-0.05) L 01/23/19 02:00 B-Natriuretic Peptide 215.0 pg/mL (5.0-100.0) H 01/23/19 02:00 Total Protein 6.2 gm/dL (6.0-8.3) 01/30/19 05:45 Albumin 2.8 gm/dL (3.7-5.3) L 01/30/19 05:45 Globulin 3.4 gm/dL 01/30/19 05:45 Albumin/Globulin Ratio 0.8 (1.0-1.8) L 01/30/19 05:45 Triglycerides 120 mg/dL (<150) 01/23/19 02:00 Cholesterol 107 mg/dL (<200) 01/23/19 02:00 LDL Cholesterol Direct 66 mg/dL (75-193) L 01/23/19 02:00 HDL Cholesterol 29 mg/dL (23-92) 01/23/19 02:00 Urine Source CATH 01/23/19 02:20 Urine Color YELLOW 01/23/19 02:20 Urine Clarity CLEAR (CLEAR) 01/23/19 02:20 Urine pH 7.0 (4.6 - 8.0) 01/23/19 02:20 Ur Specific [place] 1.010 (1.005-1.030) 01/23/19 02:20 Urine Protein NEGATIVE mg/dL (NEGATIVE) 01/23/19 02:20 Urine Glucose (UA) NEGATIVE mg/dL (NEGATIVE) 01/23/19 02:20 Urine Ketones NEGATIVE mg/dL (NEGATIVE) 01/23/19 02:20 Urine Blood NEGATIVE (NEGATIVE) 01/23/19 02:20 Urine Nitrate NEGATIVE (NEGATIVE) 01/23/19 02:20 Urine Bilirubin NEGATIVE (NEGATIVE) 01/23/19 02:20 Urine Urobilinogen 0.2 E.U./dL (0.2 - 1.0) 01/23/19 02:20 Ur Leukocyte Esterase NEGATIVE (NEGATIVE) 01/23/19 02:20 Vancomycin Trough 17.1 ug/mL (5-10) H 02/01/19 05:30 - Physical Exam Vitals and I&O: Vital Signs Temp 98.8 F 02/02/19 20:00 Pulse 68 02/02/19 20:00 Resp 18 02/02/19 20:00 BP 137/78 02/02/19 20:00 Pulse Ox 97 02/02/19 20:00 Intake & Output 02/02/19 02/02/19 02/03/19 06:59 18:59 06:59 Intake Total 450 1448.333 Balance 450 1448.333 Weight (lbs) 41.73 kg 41.73 kg Intake: Intake, IV Amount 250 1448.333 Azithromycin 500 mg In 250 Sodium Chloride 0.9% 250 ml @ 250 mls/hr IV Q24HR [facility] Rx#:[id number] D5-0.45NS 1,000 ml @ 50 898.333 mls/hr IV .Q20H [facility] Rx#: [id number] Vancomycin HCl 750 mg In 250 250 Sodium Chloride 0.9% 250 ml @ 165 mls/hr IV Q12HR [facility] Rx#:[id number] cefTRIAXone 1 gm In 50 Sodium Chloride 0.9% 50 ml @ 100 mls/hr IV Q24HR [facility] Rx#:[id number] Other 200 Other: # Voids 3 3 # Bowel Movements 0 0 Weight Source Bedscale Bedscale Active Medications: Current Medications Acetaminophen (Tylenol) 650 mg GT Q6H PRN PRN Reason: mild pain Stop: 03/24/19 13:09 Last Admin: 01/28/19 21:59 Dose: 650 mg Al Hydrox/Mg Hydrox/Simethicone (Maalox) 30 ml GT Q6HR PRN PRN Reason: Abdominal Pain Stop: 03/24/19 13:09 Last Admin: 02/02/19 19:21 Dose: 30 ml Albuterol Sulfate (Albuterol 2.5mg/3ml Neb Ud) 2.5 mg HHN Q2HR PRN PRN Reason: Shortness of Breath Stop: 03/24/19 13:09 Albuterol Sulfate (Albuterol 2.5mg/3ml Neb Ud) 2.5 mg HHN [id number] [facility] Stop: 03/24/19 14:59 Last Admin: 02/02/19 19:12 Dose: 2.5 mg Ascorbic Acid (Vitamin C) 500 mg GT Q12HR [facility] Stop: 03/24/19 20:59 Last Admin: 02/02/19 20:54 Dose: 500 mg Bisacodyl (Dulcolax 10 Mg Supp) 10 mg RC DAILY PRN PRN Reason: Constipation Stop: 03/24/19 13:09 Budesonide (Pulmicort) 0.5 mg HHN BID [facility] Stop: 03/24/19 16:59 Last Admin: 02/02/19 06:58 Dose: 0.5 mg Carvedilol (Coreg) 6.25 mg GT Q12H [facility] Stop: 03/24/19 13:14 Last Admin: 02/02/19 12:48 Dose: 6.25 mg [place] Oil/[place] Balsam/Trypsin (Venelex) 1 appl TP DAILY [facility] Stop: 03/25/19 08:59 Last Admin: 02/02/19 19:18 Dose: 1 appl Dextrose (Glutose 40%) 18.75 gm PO UD PRN PRN Reason: Blood Glucose less than 70 Stop: 03/24/19 13:09 Docusate Sodium (Colace) 200 mg GT Q12H PRN PRN Reason: Constipation Stop: 03/24/19 13:09 Ferrous Sulfate (Iron) 325 mg PO DAILY [facility] Stop: 03/25/19 08:59 Last Admin: 02/02/19 09:09 Dose: 325 mg Glucagon (Glucagen) 1 mg IM PRN PRN PRN Reason: Blood Glucose less than 70 Stop: 03/24/19 13:09 Heparin Sodium (Porcine) (Heparin) 5,000 units SUBQ Q12H [facility] Stop: 03/24/19 13:14 Last Admin: 02/02/19 12:49 Dose: 5,000 units Azithromycin 500 mg/ Sodium (Chloride) 250 mls @ 250 mls/hr IV Q24HR [facility] Stop: 03/24/19 09:44 Last Infusion: 02/02/19 12:27 Dose: Infused Ceftriaxone Sodium 1 gm/ (Sodium Chloride) 50 mls @ 100 mls/hr IV Q24HR [facility] Stop: 03/24/19 09:44 Last Infusion: 02/02/19 11:15 Dose: Infused Dextrose/Sodium Chloride (D5-0.45ns) 1,000 mls @ 50 mls/hr IV .Q20H [facility] Stop: 03/26/19 22:14 Last Admin: 02/02/19 09:25 Dose: 50 mls/hr Vancomycin HCl 750 mg/ Sodium (Chloride) 250 mls @ 165 mls/hr IV Q12HR [facility] Stop: 04/01/19 05:59 Last Admin: 02/02/19 20:54 Dose: 165 mls/hr Insulin Human Lispro (Humalog Insulin Sliding Scale) 0 units SUBQ Q12HR [facility]; Protocol Stop: 03/24/19 20:59 Last Admin: 02/02/19 21:02 Dose: Not Given Lactobacillus Rhamnosus (Culturelle 15b) 1 each PO DAILY [facility] Stop: 03/25/19 08:59 Last Admin: 02/02/19 09:09 Dose: 1 each Lorazepam (Ativan) 1 mg GT Q6H PRN; Protocol PRN Reason: Anxiety Stop: 03/24/19 13:09 Last Admin: 02/01/19 20:49 Dose: 1 mg Magnesium Hydroxide (Milk Of Magnesia) 30 ml GT HS PRN PRN Reason: Constipation Stop: 03/24/19 13:09 Miscellaneous (Vancomycin Iv Per Pharmacy) 1 ea MC PRN PRN PRN Reason: PROTOCOL Stop: 03/24/19 10:40 Miscellaneous (Probiotic Screen) 1 ea MC PRN PRN PRN Reason: PROTOCOL Stop: 03/25/19 14:19 Pantoprazole Sodium (Protonix) 40 mg IVP DAILY [facility] Stop: 03/25/19 08:59 Last Admin: 02/02/19 09:09 Dose: 40 mg Sodium Phosphate (Fleet Enema) 135 ml RC Q48HR PRN PRN Reason: Constipation Stop: 03/24/19 13:09 General: no acute distress, cachectic HEENT: atraumatic, normocephalic, PERRLA Neck: supple, no thyromegaly Cardiovascular: S1S2, regular Lungs: clear to auscultation bilaterally, clear to percussion Abdomen: soft, no tender, no distended Extremities: no cyanosis, no clubbing, no edema Neurological: awake, other (confused.) - Procedures Procedures: Procedures Procedure Code Date INSERTION OF FEEDING DEVICE INTO STOMACH, PERC APPROACH [id number] 01/02/19 INSERTION OF INFUSION DEVICE INTO R LOW ARM, PERC APPROACH [id number] 01/02/19 INTRODUCTION OF NUTRITIONAL INTO PERIPH VEIN, PERC APPROACH [id number] 01/02/19 RESPIRATORY VENTILATION, LESS THAN 24 CONSECUTIVE HOURS [id number] 04/07/18 Infectious Disease Assmt/Plan - Assessment Assessment: 1. MRSA sepsis. treated 2. discitis/osteomyelitis of lumbar spine. 3. Dementia. 4. Dysphagia requiring G-tube placement, but she has pulled out G-tube 3 times already. 5. Dementia. 6. Protein-calorie malnutrition and failure to thrive. 7. Psychosis. 8. Chronic obstructive pulmonary disease. 9. Leukopenia. - Plan Plan: Continue vanco iv for 6 to 8 weeks with trough level 12 - 20. MRI in 1 weeks. Nutritional Asmnt/Malnutr-PDOC - Dietary Evaluation Malnutrition Findings (Please click <Entered> for more info): Nutritional Asmnt/Malnutrition Start: 01/24/19 17: 26 Text: Status: Complete Freq: Protocol: Document 01/24/19 17:27 [email or web address] (Rec: 01/24/19 17:49 [email or web address]) Nutritional Asmnt/Malnutrition Patient General Information Nutritional Screening High Risk Consult Diagnosis falls and weakness Pertinent Medical Hx/Surgical Hx HTN, DM, CAD, asthma/COPD, dyslipidemia, PUD/GERD, PEG/ Gtube Subjective Information Pt seen resting in bed at time of visit. Spoke with RN yesterday regarding TF regimen . Current Diet Order/ Nutrition Support Jevity 1.2 at 60ml/hr x 20hr Pertinent Medications vitC, colace, iron, heparin, humalog, culturelle Pertinent Labs 01/24 Cr 0.4, Glucose 99, POC 67-83 Nutritional Hx/Data Height 1.63 m Height (Calculated Centimeters) 162.6 Current Weight (lbs) 41.277 kg Weight (Calculated Kilograms) 41.3 Weight (Calculated Grams) [address].9 [place] Body Weight 120 Body Mass Index (BMI) 15.6 Weight Status Underweight GI Symptoms GI Symptoms None Last BM none Difficult in: None Estimated Nutritional Goals Calories/Kcals/Kg 25-30 IBW 55kg Kcals Calculated 3893-7942 Protein g/k-1.2 Protein Calculated 55-66 Fluid: ml 1265-1485ml (1ml/kcal) Nutritional Problem No current Nutrition Prob Problem N/A Intervention/Recommendation Comments 1. Continue with current TF regimen Jevity 1.2 at 60ml/hr x 20hr. It provides 1440kcal, 67g protein, 968ml free water, meeting 100% of nutritional needs 2. Monitor TF rate, tolerance, wt, skin integrity and labs 3. F/U as low risk in 7 days Expected Outcomes/Goals Expected Outcomes/Goals 1. Pt to meet at least 90% of nutritional needs via nutrition support with tolerance 2. Wt stability, skin to remain intact, labs to approach WNL.
--- NOTE | 2019-02-03 03:46 | Progress Notes ---
DATE: 02/02/2019 PULMONARY PROGRESS NOTE SUBJECTIVE: The patient appears to be doing okay, comfortable, in no distress. PHYSICAL EXAMINATION: VITAL SIGNS: Temperature is 98.3, pulse 70, respiration 18, blood pressure is 144/90 and saturation 97%. HEENT: Atraumatic and normocephalic. Pupils react to light and accommodation. Ears, nose and throat normal. NECK: Supple. No JVD. CHEST: There are few rhonchi bilaterally. HEART: Regular rate and rhythm. ABDOMEN: Soft. EXTREMITIES: No edema. LABORATORY DATA: Sodium 137, potassium 3.9, BUN 15 and creatinine 0.4. IMPRESSION: 1. Respiratory failure. 2. Chronic obstructive pulmonary disease. 3. Pneumonia. 4. Weakness. 5. Dysphagia. PLAN: Continue nebulized treatments and supportive care. Follow up chest x-ray and discharge planning in progress. JOB# [id number]
[2019-02-03] MEDS: D5-0.45NS 1,000 ML IV SCH (04:39)
[2019-02-03 06:42] LABS: % BASOPHILS 1.9 % (0.0-2.0); % EOSINOPHILS 2.4 % (0.0-5.0); % LYMPHOCYTES 16.3 % (20.0-50.0); % MONOCYTES 7.2 % (2.0-10.0); % NEUTROPHILS 72.2 % (40.0-80.0); BASOPHILE ABSOLUTE 0.1 Th/cumm (0-0.2); EOSINOPHILE ABSOLUTE 0.1 Th/cmm (0.1-0.4); HEMATOCRIT 28.6 % (41.0-60); HEMOGLOBIN 9.8 gm/dL (12-16); LYMPHOCYTE ABSOLUTE 0.9 Th/cmm (1.5-3.0); MEAN CORPUSCULAR HEMOGLOBIN 32.3 pg (27.0-31.0); MEAN CORPUSCULAR HGB CONC 34.3 pg (28.0-36.0); MEAN PLATELET VOLUME 7.7 fl; MONOCYTE ABSOLUTE 0.4 Th/cmm (0.3-1.0); NEUTROPHILE ABSOLUTE 3.8 Th/cmm (1.8-8.0); PLATELET COUNT 264 Th/cmm (150-400); RED BLOOD COUNT 3.04 Mil/cmm (3.80-5.10); RED CELL DISTRIBUTION WIDTH 15.1 % (11.5-20.0); WHITE BLOOD COUNT 5.3 Th/cmm (4.8-10.8)
[2019-02-03] MEDS: Albuterol Nebulizer 2.5mg/3mL HHN SCH ×4 (07:05→19:49)
[2019-02-03] MEDS: Budesonide 0.5 Mg/2 mL Ud HHN SCH ×2 (07:10→19:49)
[2019-02-03 07:14] LABS: ANION GAP 9.2 (7.0-16.0); BUN - UREA NITROGEN 12 mg/dL (7-25); CALCIUM SERUM 8.9 mg/dL (8.6-10.3); CARBON DIOXIDE 29.6 mEq/L (21.0-31.0); CHLORIDE 102 mEq/L (98-107); CREATININE - SERUM 0.3 mg/dL (0.6-1.2); GFR AFRICAN-AMERICAN > 60.0 ml/min (>90); GFR NON AFRICAN-AMERICAN > 60.0 ml/min; GLUCOSE 105 mg/dL (70-105); SODIUM SERUM 138 mEq/L (136-145)
[2019-02-03 07:52] LABS: POTASSIUM SERUM 2.8 mEq/L (3.5-5.1)
[2019-02-03] MEDS: Multivitamin w/ Minerals Tab GT SCH (08:54)
[2019-02-03] MEDS: Ferrous Sulfate 325 MG TAB PO SCH (08:54)
[2019-02-03] MEDS: Lactobacillus Rhamnosus GG 15 Billion CFU CAP.SPRINK PO SCH (08:54)
[2019-02-03] MEDS: INSULIN LISPRO SLIDING SCALE 100 UNITS/ML UNIT SUBQ SCH ×2 (09:24→21:58)
[2019-02-03] MEDS: Venelex 60gm Tube TP SCH (09:26)
[2019-02-03] MEDS ORDERED: Potassium Chloride 20 mEq ER Tab PO ONE (12:25)
--- NOTE | 2019-02-03 12:25 | Internal Medicine Prog Note ---
Internal Medicine Subjective - Subjective Service Date: 02/03/19 Patient is:: awake, interactive, in bed, confused (oriented x person only) Patient Complaints of:: other Per staff patient has:: no adverse event Internal Medicine Objective - Results Result Diagrams: 02/03/19 06:00 02/03/19 06:00 Recent Labs: Laboratory Last Values WBC 5.3 Th/cmm (4.8-10.8) 02/03/19 06:00 RBC 3.04 Mil/cmm (3.80-5.10) L 02/03/19 06:00 Hgb 9.8 gm/dL (12-16) L 02/03/19 06:00 Hct 28.6 % (41.0-60) L 02/03/19 06:00 MCV 94.0 fl (81-100) 02/03/19 06:00 MCH 32.3 pg (27.0-31.0) H 02/03/19 06:00 MCHC Differential 34.3 pg (28.0-36.0) 02/03/19 06:00 RDW 15.1 % (11.5-20.0) 02/03/19 06:00 Plt Count 264 Th/cmm (150-400) 02/03/19 06:00 MPV 7.7 fl 02/03/19 06:00 Add Manual Diff YES 01/31/19 05:15 Neutrophils % 72.2 % (40.0-80.0) 02/03/19 06:00 Band Neutrophils % 0 % (0-10) 01/31/19 05:15 Lymphocytes % 16.3 % (20.0-50.0) L 02/03/19 06:00 Monocytes % 7.2 % (2.0-10.0) 02/03/19 06:00 Eosinophils % 2.4 % (0.0-5.0) 02/03/19 06:00 Basophils % 1.9 % (0.0-2.0) 02/03/19 06:00 Neutrophils (Manual) 73 % (40-80) 01/31/19 05:15 Lymphocytes 21 % (20-50) 01/31/19 05:15 Monocytes 5 % (2-10) 01/31/19 05:15 Eosinophils 1 % (0-5) 01/31/19 05:15 Basophils 0 % (0-3) 01/31/19 05:15 PT 10.1 SECONDS (9.5-11.5) 01/23/19 02:00 INR 0.97 (0.5-1.4) 01/23/19 02:00 Sodium 138 mEq/L (136-145) 02/03/19 06:00 Potassium 2.8 mEq/L (3.5-5.1) L* 02/03/19 06:00 Chloride 102 mEq/L (98-107) 02/03/19 06:00 Carbon Dioxide 29.6 mEq/L (21.0-31.0) 02/03/19 06:00 Anion Gap 9.2 (7.0-16.0) 02/03/19 06:00 BUN 12 mg/dL (7-25) 02/03/19 06:00 Creatinine 0.3 mg/dL (0.6-1.2) L 02/03/19 06:00 Est GFR ( Amer) > 60.0 ml/min (>90) 02/03/19 06:00 Est GFR (Non-Af Amer) > 60.0 ml/min 02/03/19 06:00 BUN/Creatinine Ratio 40.0 02/03/19 06:00 Glucose 105 mg/dL (70-105) 02/03/19 06:00 POC Glucose 116 MG/DL (70 - 105) H 02/03/19 09:16 Whole Bld Lactic Acid 1.42 mmol/L (0.60-1.99) 01/23/19 02:00 Calcium 8.9 mg/dL (8.6-10.3) 02/03/19 06:00 Total Bilirubin 0.3 mg/dL (0.3-1.0) 01/30/19 05:45 AST 21 U/L (13-39) 01/30/19 05:45 ALT 31 U/L (7-52) 01/30/19 05:45 Alkaline Phosphatase 110 U/L (34-104) H 01/30/19 05:45 Creatine Kinase 36 U/L (30-223) 01/23/19 02:00 Troponin I < 0.01 ng/mL (0.01-0.05) L 01/23/19 02:00 B-Natriuretic Peptide 215.0 pg/mL (5.0-100.0) H 01/23/19 02:00 Total Protein 6.2 gm/dL (6.0-8.3) 01/30/19 05:45 Albumin 2.8 gm/dL (3.7-5.3) L 01/30/19 05:45 Globulin 3.4 gm/dL 01/30/19 05:45 Albumin/Globulin Ratio 0.8 (1.0-1.8) L 01/30/19 05:45 Triglycerides 120 mg/dL (<150) 01/23/19 02:00 Cholesterol 107 mg/dL (<200) 01/23/19 02:00 LDL Cholesterol Direct 66 mg/dL (75-193) L 01/23/19 02:00 HDL Cholesterol 29 mg/dL (23-92) 01/23/19 02:00 Urine Source CATH 01/23/19 02:20 Urine Color YELLOW 01/23/19 02:20 Urine Clarity CLEAR (CLEAR) 01/23/19 02:20 Urine pH 7.0 (4.6 - 8.0) 01/23/19 02:20 Ur Specific [place] 1.010 (1.005-1.030) 01/23/19 02:20 Urine Protein NEGATIVE mg/dL (NEGATIVE) 01/23/19 02:20 Urine Glucose (UA) NEGATIVE mg/dL (NEGATIVE) 01/23/19 02:20 Urine Ketones NEGATIVE mg/dL (NEGATIVE) 01/23/19 02:20 Urine Blood NEGATIVE (NEGATIVE) 01/23/19 02:20 Urine Nitrate NEGATIVE (NEGATIVE) 01/23/19 02:20 Urine Bilirubin NEGATIVE (NEGATIVE) 01/23/19 02:20 Urine Urobilinogen 0.2 E.U./dL (0.2 - 1.0) 01/23/19 02:20 Ur Leukocyte Esterase NEGATIVE (NEGATIVE) 01/23/19 02:20 Vancomycin Trough 17.1 ug/mL (5-10) H 02/01/19 05:30 - Physical Exam Vitals and I&O: Vital Signs Temp 97.3 F 02/03/19 11:19 Pulse 72 02/03/19 11:23 Resp 18 02/03/19 11:23 BP 155/81 02/03/19 11:19 Pulse Ox 94 02/03/19 11:23 Intake & Output 02/02/19 02/03/19 02/03/19 18:59 06:59 18:59 Intake Total 7727.402 7464.667 Balance 0585.401 8795.667 Weight (lbs) 92 lb 92 lb Intake: Intake, IV Amount 7611.743 1563.667 Azithromycin 500 mg In 250 Sodium Chloride 0.9% 250 ml @ 250 mls/hr IV Q24HR [facility] Rx#:[id number] D5-0.45NS 1,000 ml @ 50 898.333 961.667 mls/hr IV .Q20H [facility] Rx#: [id number] Vancomycin HCl 750 mg In 250 250 Sodium Chloride 0.9% 250 ml @ 165 mls/hr IV Q12HR [facility] Rx#:[id number] cefTRIAXone 1 gm In 50 Sodium Chloride 0.9% 50 ml @ 100 mls/hr IV Q24HR [facility] Rx#:[id number] Tube Feeding 720 Other: # Voids 3 2 # Bowel Movements 0 Weight Source Bedscale Bedscale Active Medications: Current Medications Acetaminophen (Tylenol) 650 mg GT Q6H PRN PRN Reason: mild pain Stop: 03/24/19 13:09 Last Admin: 01/28/19 21:59 Dose: 650 mg Al Hydrox/Mg Hydrox/Simethicone (Maalox) 30 ml GT Q6HR PRN PRN Reason: Abdominal Pain Stop: 03/24/19 13:09 Last Admin: 02/02/19 19:21 Dose: 30 ml Albuterol Sulfate (Albuterol 2.5mg/3ml Neb Ud) 2.5 mg HHN Q2HR PRN PRN Reason: Shortness of Breath Stop: 03/24/19 13:09 Albuterol Sulfate (Albuterol 2.5mg/3ml Neb Ud) 2.5 mg HHN [id number] [facility] Stop: 03/24/19 14:59 Last Admin: 02/03/19 11:23 Dose: 2.5 mg Ascorbic Acid (Vitamin C) 500 mg GT Q12HR [facility] Stop: 03/24/19 20:59 Last Admin: 02/03/19 08:54 Dose: 500 mg Bisacodyl (Dulcolax 10 Mg Supp) 10 mg RC DAILY PRN PRN Reason: Constipation Stop: 03/24/19 13:09 Budesonide (Pulmicort) 0.5 mg HHN BID [facility] Stop: 03/24/19 16:59 Last Admin: 02/03/19 07:10 Dose: 0.5 mg Carvedilol (Coreg) 6.25 mg GT Q12H [facility] Stop: 03/24/19 13:14 Last Admin: 02/03/19 01:56 Dose: 6.25 mg [place] Oil/[place]izen [place] Balsam/Trypsin (Venelex) 1 appl TP DAILY [facility] Stop: 03/25/19 08:59 Last Admin: 02/03/19 09:26 Dose: 1 appl Dextrose (Glutose 40%) 18.75 gm PO UD PRN PRN Reason: Blood Glucose less than 70 Stop: 03/24/19 13:09 Docusate Sodium (Colace) 200 mg GT Q12H PRN PRN Reason: Constipation Stop: 03/24/19 13:09 Ferrous Sulfate (Iron) 325 mg PO DAILY [facility] Stop: 03/25/19 08:59 Last Admin: 02/03/19 08:54 Dose: 325 mg Glucagon (Glucagen) 1 mg IM PRN PRN PRN Reason: Blood Glucose less than 70 Stop: 03/24/19 13:09 Heparin Sodium (Porcine) (Heparin) 5,000 units SUBQ Q12H [facility] Stop: 03/24/19 13:14 Last Admin: 02/03/19 01:55 Dose: 5,000 units Dextrose/Sodium Chloride (D5-0.45ns) 1,000 mls @ 50 mls/hr IV .Q20H [facility] Stop: 03/26/19 22:14 Last Admin: 02/03/19 04:39 Dose: 50 mls/hr Vancomycin HCl 750 mg/ Sodium (Chloride) 250 mls @ 165 mls/hr IV Q12HR [facility] Stop: 04/01/19 05:59 Last Admin: 02/03/19 08:54 Dose: 165 mls/hr Insulin Human Lispro (Humalog Insulin Sliding Scale) 0 units SUBQ Q12HR [facility]; Protocol Stop: 03/24/19 20:59 Last Admin: 02/03/19 09:24 Dose: Not Given Lactobacillus Rhamnosus (Culturelle 15b) 1 each PO DAILY [facility] Stop: 03/25/19 08:59 Last Admin: 02/03/19 08:54 Dose: 1 each Lorazepam (Ativan) 1 mg GT Q6H PRN; Protocol PRN Reason: Anxiety Stop: 03/24/19 13:09 Last Admin: 02/03/19 04:39 Dose: 1 mg Magnesium Hydroxide (Milk Of Magnesia) 30 ml GT HS PRN PRN Reason: Constipation Stop: 03/24/19 13:09 Miscellaneous (Vancomycin Iv Per Pharmacy) 1 ea MC PRN PRN PRN Reason: PROTOCOL Stop: 03/24/19 10:40 Miscellaneous (Probiotic Screen) 1 ea MC PRN PRN PRN Reason: PROTOCOL Stop: 03/25/19 14:19 Pantoprazole Sodium (Protonix) 40 mg IVP DAILY [facility] Stop: 03/25/19 08:59 Last Admin: 02/03/19 08:55 Dose: 40 mg Sodium Phosphate (Fleet Enema) 135 ml RC Q48HR PRN PRN Reason: Constipation Stop: 03/24/19 13:09 General: weak, alert HEENT: NC/AT Neck: + trach Lungs: other (Respiratory failure, stable.) Cardiovascular: RRR, Normal S1 Abdomen: +GT Extremities: clear Neurological: muscle weakness, unsteady - Procedures Procedures: Procedures Procedure Code Date INSERTION OF FEEDING DEVICE INTO STOMACH, PERC APPROACH [id number] 01/02/19 INSERTION OF INFUSION DEVICE INTO R LOW ARM, PERC APPROACH [id number] 01/02/19 INTRODUCTION OF NUTRITIONAL INTO PERIPH VEIN, PERC APPROACH [id number] 01/02/19 RESPIRATORY VENTILATION, LESS THAN 24 CONSECUTIVE HOURS [id number] 04/07/18 Internal Medicine Assmt/Plan - Assessment Assessment: S/p fall. Chronic Respiratory Failure. Hypertension. Diabetes. CAD. Copd. Dyslipidemia. Gerd. S/p trach and PEG. - Plan Plan: continue vanco as per ID placement issues am labs continue current plan of care Nutritional Asmnt/Malnutr-PDOC - Dietary Evaluation Malnutrition Findings (Please click <Entered> for more info): Nutritional Asmnt/Malnutrition Start: 01/24/19 17: 26 Text: Status: Complete Freq: Protocol: Document 01/24/19 17:27 [email or web address] (Rec: 01/24/19 17:49 [email or web address]) Nutritional Asmnt/Malnutrition Patient General Information Nutritional Screening High Risk Consult Diagnosis falls and weakness Pertinent Medical Hx/Surgical Hx HTN, DM, CAD, asthma/COPD, dyslipidemia, PUD/GERD, PEG/ Gtube Subjective Information Pt seen resting in bed at time of visit. Spoke with RN yesterday regarding TF regimen . Current Diet Order/ Nutrition Support Jevity 1.2 at 60ml/hr x 20hr Pertinent Medications vitC, colace, iron, heparin, humalog, culturelle Pertinent Labs 01/24 Cr 0.4, Glucose 99, POC 67-83 Nutritional Hx/Data Height 5 ft 4 in Height (Calculated Centimeters) 162.6 Current Weight (lbs) 91 lb Weight (Calculated Kilograms) 41.3 Weight (Calculated Grams) [address].9 [place] Body Weight 120 Body Mass Index (BMI) 15.6 Weight Status Underweight GI Symptoms GI Symptoms None Last BM none Difficult in: None Estimated Nutritional Goals Calories/Kcals/Kg 25-30 IBW 55kg Kcals Calculated 9709-0126 Protein g/k-1.2 Protein Calculated 55-66 Fluid: ml 1265-1485ml (1ml/kcal) Nutritional Problem No current Nutrition Prob Problem N/A Intervention/Recommendation Comments 1. Continue with current TF regimen Jevity 1.2 at 60ml/hr x 20hr. It provides 1440kcal, 67g protein, 968ml free water, meeting 100% of nutritional needs 2. Monitor TF rate, tolerance, wt, skin integrity and labs 3. F/U as low risk in 7 days Expected Outcomes/Goals Expected Outcomes/Goals 1. Pt to meet at least 90% of nutritional needs via nutrition support with tolerance 2. Wt stability, skin to remain intact, labs to approach WNL.
--- NOTE | 2019-02-03 12:58 | Diagnostic Imaging Report ---
Portable chest x-ray HISTORY: Shortness of breath The overall heart size appears normal. Accentuation of the interstitial markings within the right lower lobe which appears chronic. Improved visualization of the left lower lobe since the prior exam of January 15, 2019. No definite acute focal processes are seen. No hilar or mediastinal abnormalities. Vascular catheter tip is seen in the left axillary region. IMPRESSION: 1. Pulmonary parenchymal changes in the right lower lobe which appear chronic. No other focal or acute abnormalities.
[2019-02-03] MEDS: KCL 20mEq/100mL Premix 20 MEQ/100 ML PIGGYBACK IV SCH ×2 (12:59→15:22)
[2019-02-04 06:16] LABS: % BASOPHILS 1.1 % (0.0-2.0); % EOSINOPHILS 2.9 % (0.0-5.0); % LYMPHOCYTES 26.3 % (20.0-50.0); % MONOCYTES 8.7 % (2.0-10.0); EOSINOPHILE ABSOLUTE 0.1 Th/cmm (0.1-0.4); HEMATOCRIT 28.4 % (41.0-60); HEMOGLOBIN 9.7 gm/dL (12-16); MEAN CELL VOLUME 95.5 fl (81-100); MEAN CORPUSCULAR HEMOGLOBIN 32.5 pg (27.0-31.0); MEAN PLATELET VOLUME 7.6 fl; MONOCYTE ABSOLUTE 0.3 Th/cmm (0.3-1.0); NEUTROPHILE ABSOLUTE 2.4 Th/cmm (1.8-8.0); PLATELET COUNT 248 Th/cmm (150-400); RED BLOOD COUNT 2.98 Mil/cmm (3.80-5.10); RED CELL DISTRIBUTION WIDTH 15.4 % (11.5-20.0)
[2019-02-04 06:20] LABS: WHITE BLOOD COUNT 3.8 Th/cmm (4.8-10.8)
[2019-02-04] MEDS: Budesonide 0.5 Mg/2 mL Ud HHN SCH ×2 (07:10→18:43)
[2019-02-04] MEDS: Albuterol Nebulizer 2.5mg/3mL HHN SCH ×4 (07:10→18:43)
[2019-02-04] MEDS: D5-0.45NS 1,000 ML IV SCH (09:34)
[2019-02-04] MEDS: Lactobacillus Rhamnosus GG 15 Billion CFU CAP.SPRINK PO SCH (09:34)
[2019-02-04] MEDS: Multivitamin w/ Minerals Tab GT SCH (09:34)
[2019-02-04] MEDS: Ferrous Sulfate 325 MG TAB PO SCH (09:34)
[2019-02-04] MEDS: Venelex 60gm Tube TP SCH (09:35)
[2019-02-04] MEDS: INSULIN LISPRO SLIDING SCALE 100 UNITS/ML UNIT SUBQ SCH ×2 (09:58→23:24)
[2019-02-04 11:14] LABS: ANION GAP 11.2 (7.0-16.0); BUN - UREA NITROGEN 12 mg/dL (7-25); CALCIUM SERUM 8.9 mg/dL (8.6-10.3); CARBON DIOXIDE 28.3 mEq/L (21.0-31.0); CHLORIDE 104 mEq/L (98-107); CREATININE - SERUM 0.4 mg/dL (0.6-1.2); GFR AFRICAN-AMERICAN > 60.0 ml/min (>90); GFR NON AFRICAN-AMERICAN > 60.0 ml/min; GLUCOSE 114 mg/dL (70-105); POTASSIUM SERUM 3.5 mEq/L (3.5-5.1); SODIUM SERUM 140 mEq/L (136-145)
[2019-02-05] MEDS: Albuterol Nebulizer 2.5mg/3mL HHN SCH ×4 (08:04→18:42)
[2019-02-05] MEDS: Budesonide 0.5 Mg/2 mL Ud HHN SCH ×2 (08:05→18:41)
--- NOTE | 2019-02-05 08:20 | Infectious Disease Prog Note ---
Infectious Disease Subjective - Review of Systems Service Date: 02/05/19 Subjective: There is no new change, no fever. Infectious Disease Objective - Results Result Diagrams: 02/04/19 05:35 02/04/19 05:35 Recent Labs: Laboratory Last Values WBC 3.8 Th/cmm (4.8-10.8) L 02/04/19 05:35 RBC 2.98 Mil/cmm (3.80-5.10) L 02/04/19 05:35 Hgb 9.7 gm/dL (12-16) L 02/04/19 05:35 Hct 28.4 % (41.0-60) L 02/04/19 05:35 MCV 95.5 fl (81-100) 02/04/19 05:35 MCH 32.5 pg (27.0-31.0) H 02/04/19 05:35 MCHC Differential 34.0 pg (28.0-36.0) 02/04/19 05:35 RDW 15.4 % (11.5-20.0) 02/04/19 05:35 Plt Count 248 Th/cmm (150-400) 02/04/19 05:35 MPV 7.6 fl 02/04/19 05:35 Add Manual Diff YES 01/31/19 05:15 Neutrophils % 61.0 % (40.0-80.0) 02/04/19 05:35 Band Neutrophils % 0 % (0-10) 01/31/19 05:15 Lymphocytes % 26.3 % (20.0-50.0) 02/04/19 05:35 Monocytes % 8.7 % (2.0-10.0) 02/04/19 05:35 Eosinophils % 2.9 % (0.0-5.0) 02/04/19 05:35 Basophils % 1.1 % (0.0-2.0) 02/04/19 05:35 Neutrophils (Manual) 73 % (40-80) 01/31/19 05:15 Lymphocytes 21 % (20-50) 01/31/19 05:15 Monocytes 5 % (2-10) 01/31/19 05:15 Eosinophils 1 % (0-5) 01/31/19 05:15 Basophils 0 % (0-3) 01/31/19 05:15 PT 10.1 SECONDS (9.5-11.5) 01/23/19 02:00 INR 0.97 (0.5-1.4) 01/23/19 02:00 Sodium 140 mEq/L (136-145) 02/04/19 05:35 Potassium 3.5 mEq/L (3.5-5.1) 02/04/19 05:35 Chloride 104 mEq/L (98-107) 02/04/19 05:35 Carbon Dioxide 28.3 mEq/L (21.0-31.0) 02/04/19 05:35 Anion Gap 11.2 (7.0-16.0) 02/04/19 05:35 BUN 12 mg/dL (7-25) 02/04/19 05:35 Creatinine 0.4 mg/dL (0.6-1.2) L 02/04/19 05:35 Est GFR ( Amer) > 60.0 ml/min (>90) 02/04/19 05:35 Est GFR (Non-Af Amer) > 60.0 ml/min 02/04/19 05:35 BUN/Creatinine Ratio 30.0 02/04/19 05:35 Glucose 114 mg/dL (70-105) H 02/04/19 05:35 POC Glucose 86 MG/DL (70 - 105) 02/04/19 21:39 Whole Bld Lactic Acid 1.42 mmol/L (0.60-1.99) 01/23/19 02:00 Calcium 8.9 mg/dL (8.6-10.3) 02/04/19 05:35 Total Bilirubin 0.3 mg/dL (0.3-1.0) 01/30/19 05:45 AST 21 U/L (13-39) 01/30/19 05:45 ALT 31 U/L (7-52) 01/30/19 05:45 Alkaline Phosphatase 110 U/L (34-104) H 01/30/19 05:45 Creatine Kinase 36 U/L (30-223) 01/23/19 02:00 Troponin I < 0.01 ng/mL (0.01-0.05) L 01/23/19 02:00 B-Natriuretic Peptide 372.0 pg/mL (5.0-100.0) H 02/04/19 05:35 Total Protein 6.2 gm/dL (6.0-8.3) 01/30/19 05:45 Albumin 2.8 gm/dL (3.7-5.3) L 01/30/19 05:45 Globulin 3.4 gm/dL 01/30/19 05:45 Albumin/Globulin Ratio 0.8 (1.0-1.8) L 01/30/19 05:45 Triglycerides 120 mg/dL (<150) 01/23/19 02:00 Cholesterol 107 mg/dL (<200) 01/23/19 02:00 LDL Cholesterol Direct 66 mg/dL (75-193) L 01/23/19 02:00 HDL Cholesterol 29 mg/dL (23-92) 01/23/19 02:00 Urine Source CATH 01/23/19 02:20 Urine Color YELLOW 01/23/19 02:20 Urine Clarity CLEAR (CLEAR) 01/23/19 02:20 Urine pH 7.0 (4.6 - 8.0) 01/23/19 02:20 Ur Specific [place] 1.010 (1.005-1.030) 01/23/19 02:20 Urine Protein NEGATIVE mg/dL (NEGATIVE) 01/23/19 02:20 Urine Glucose (UA) NEGATIVE mg/dL (NEGATIVE) 01/23/19 02:20 Urine Ketones NEGATIVE mg/dL (NEGATIVE) 01/23/19 02:20 Urine Blood NEGATIVE (NEGATIVE) 01/23/19 02:20 Urine Nitrate NEGATIVE (NEGATIVE) 01/23/19 02:20 Urine Bilirubin NEGATIVE (NEGATIVE) 01/23/19 02:20 Urine Urobilinogen 0.2 E.U./dL (0.2 - 1.0) 01/23/19 02:20 Ur Leukocyte Esterase NEGATIVE (NEGATIVE) 01/23/19 02:20 Vancomycin Trough 17.1 ug/mL (5-10) H 02/01/19 05:30 - Physical Exam Vitals and I&O: Vital Signs Temp 98 F 02/05/19 07:53 Pulse 86 02/05/19 08:05 Resp 18 02/05/19 08:05 BP 131/86 02/05/19 07:53 Pulse Ox 96 02/05/19 08:05 Intake & Output 02/04/19 02/05/19 02/05/19 18:59 06:59 18:59 Intake Total 250 Balance 250 Intake: Intake, IV Amount 250 Vancomycin HCl 750 mg In 250 Sodium Chloride 0.9% 250 ml @ 165 mls/hr IV Q12HR [facility] Rx#:[id number] Active Medications: Current Medications Acetaminophen (Tylenol) 650 mg GT Q6H PRN PRN Reason: mild pain Stop: 03/24/19 13:09 Last Admin: 01/28/19 21:59 Dose: 650 mg Al Hydrox/Mg Hydrox/Simethicone (Maalox) 30 ml GT Q6HR PRN PRN Reason: Abdominal Pain Stop: 03/24/19 13:09 Last Admin: 02/02/19 19:21 Dose: 30 ml Albuterol Sulfate (Albuterol 2.5mg/3ml Neb Ud) 2.5 mg HHN Q2HR PRN PRN Reason: Shortness of Breath Stop: 03/24/19 13:09 Albuterol Sulfate (Albuterol 2.5mg/3ml Neb Ud) 2.5 mg HHN [id number] [facility] Stop: 03/24/19 14:59 Last Admin: 02/05/19 08:04 Dose: 2.5 mg Ascorbic Acid (Vitamin C) 500 mg GT Q12HR [facility] Stop: 03/24/19 20:59 Last Admin: 02/04/19 23:11 Dose: 500 mg Bisacodyl (Dulcolax 10 Mg Supp) 10 mg RC DAILY PRN PRN Reason: Constipation Stop: 03/24/19 13:09 Budesonide (Pulmicort) 0.5 mg HHN BID [facility] Stop: 03/24/19 16:59 Last Admin: 02/05/19 08:05 Dose: 0.5 mg Carvedilol (Coreg) 6.25 mg GT Q12H [facility] Stop: 03/24/19 13:14 Last Admin: 02/05/19 00:27 Dose: 6.25 mg [place] Oil/[place] Balsam/Trypsin (Venelex) 1 appl TP DAILY [facility] Stop: 03/25/19 08:59 Last Admin: 02/04/19 09:35 Dose: 1 appl Dextrose (Glutose 40%) 18.75 gm PO UD PRN PRN Reason: Blood Glucose less than 70 Stop: 03/24/19 13:09 Docusate Sodium (Colace) 200 mg GT Q12H PRN PRN Reason: Constipation Stop: 03/24/19 13:09 Ferrous Sulfate (Iron) 325 mg PO DAILY [facility] Stop: 03/25/19 08:59 Last Admin: 02/04/19 09:34 Dose: 325 mg Glucagon (Glucagen) 1 mg IM PRN PRN PRN Reason: Blood Glucose less than 70 Stop: 03/24/19 13:09 Heparin Sodium (Porcine) (Heparin) 5,000 units SUBQ Q12H [facility] Stop: 03/24/19 13:14 Last Admin: 02/05/19 00:27 Dose: 5,000 units Dextrose/Sodium Chloride (D5-0.45ns) 1,000 mls @ 50 mls/hr IV .Q20H [facility] Stop: 03/26/19 22:14 Last Admin: 02/04/19 09:34 Dose: 50 mls/hr Vancomycin HCl 750 mg/ Sodium (Chloride) 250 mls @ 165 mls/hr IV Q12HR [facility] Stop: 04/01/19 05:59 Last Admin: 02/04/19 23:11 Dose: 165 mls/hr Insulin Human Lispro (Humalog Insulin Sliding Scale) 0 units SUBQ Q12HR [facility]; Protocol Stop: 03/24/19 20:59 Last Admin: 02/04/19 23:24 Dose: Not Given Lactobacillus Rhamnosus (Culturelle 15b) 1 each PO DAILY [facility] Stop: 03/25/19 08:59 Last Admin: 02/04/19 09:34 Dose: 1 each Lorazepam (Ativan) 1 mg GT Q6H PRN; Protocol PRN Reason: Anxiety Stop: 03/24/19 13:09 Last Admin: 02/04/19 23:13 Dose: 1 mg Magnesium Hydroxide (Milk Of Magnesia) 30 ml GT HS PRN PRN Reason: Constipation Stop: 03/24/19 13:09 Miscellaneous (Vancomycin Iv Per Pharmacy) 1 ea MC PRN PRN PRN Reason: PROTOCOL Stop: 03/24/19 10:40 Miscellaneous (Probiotic Screen) 1 ea MC PRN PRN PRN Reason: PROTOCOL Stop: 03/25/19 14:19 Pantoprazole Sodium (Protonix) 40 mg IVP DAILY [facility] Stop: 03/25/19 08:59 Last Admin: 02/04/19 09:35 Dose: 40 mg Sodium Phosphate (Fleet Enema) 135 ml RC Q48HR PRN PRN Reason: Constipation Stop: 03/24/19 13:09 General: no acute distress, cachectic HEENT: atraumatic, normocephalic, PERRLA Neck: supple, no thyromegaly Cardiovascular: S1S2, regular Lungs: clear to auscultation bilaterally, clear to percussion Abdomen: soft, no tender, no distended, no hepatomegaly Extremities: no cyanosis, no clubbing Neurological: awake, alert Skin: intact - Procedures Procedures: Procedures Procedure Code Date INSERTION OF FEEDING DEVICE INTO STOMACH, PERC APPROACH [id number] 01/02/19 INSERTION OF INFUSION DEVICE INTO R LOW ARM, PERC APPROACH [id number] 01/02/19 INTRODUCTION OF NUTRITIONAL INTO PERIPH VEIN, PERC APPROACH [id number] 01/02/19 RESPIRATORY VENTILATION, LESS THAN 24 CONSECUTIVE HOURS [id number] 04/07/18 Infectious Disease Assmt/Plan - Assessment Assessment: 1. MRSA sepsis. treated 2. discitis/osteomyelitis of lumbar spine. 3. Dementia. 4. Dysphagia requiring G-tube placement, but she has pulled out G-tube 3 times already. 5. Dementia. 6. Protein-calorie malnutrition and failure to thrive. 7. Psychosis. 8. Chronic obstructive pulmonary disease. 9. Leukopenia. - Plan Plan: Continue vanco iv for 6 to 8 weeks with trough level 12 - 20. MRI of LS spine to see the response to the therapy. Nutritional Asmnt/Malnutr-PDOC - Dietary Evaluation Malnutrition Findings (Please click <Entered> for more info): Nutritional Asmnt/Malnutrition Start: 01/24/19 17: 26 Text: Status: Complete Freq: Protocol: Document 01/24/19 17:27 LCHENG (Rec: 01/24/19 17:49 [email or web address]) Nutritional Asmnt/Malnutrition Patient General Information Nutritional Screening High Risk Consult Diagnosis falls and weakness Pertinent Medical Hx/Surgical Hx HTN, DM, CAD, asthma/COPD, dyslipidemia, PUD/GERD, PEG/ Gtube Subjective Information Pt seen resting in bed at time of visit. Spoke with RN yesterday regarding TF regimen . Current Diet Order/ Nutrition Support Jevity 1.2 at 60ml/hr x 20hr Pertinent Medications vitC, colace, iron, heparin, humalog, culturelle Pertinent Labs 01/24 Cr 0.4, Glucose 99, POC 67-83 Nutritional Hx/Data Height 1.63 m Height (Calculated Centimeters) 162.6 Current Weight (lbs) 41.277 kg Weight (Calculated Kilograms) 41.3 Weight (Calculated Grams) 37028.9 [place] Body Weight 120 Body Mass Index (BMI) 15.6 Weight Status Underweight GI Symptoms GI Symptoms None Last BM none Difficult in: None Estimated Nutritional Goals Calories/Kcals/Kg 25-30 IBW 55kg Kcals Calculated 0335-5204 Protein g/k-1.2 Protein Calculated 55-66 Fluid: ml 1265-1485ml (1ml/kcal) Nutritional Problem No current Nutrition Prob Problem N/A Intervention/Recommendation Comments 1. Continue with current TF regimen Jevity 1.2 at 60ml/hr x 20hr. It provides 1440kcal, 67g protein, 968ml free water, meeting 100% of nutritional needs 2. Monitor TF rate, tolerance, wt, skin integrity and labs 3. F/U as low risk in 7 days Expected Outcomes/Goals Expected Outcomes/Goals 1. Pt to meet at least 90% of nutritional needs via nutrition support with tolerance 2. Wt stability, skin to remain intact, labs to approach WNL.
--- NOTE | 2019-02-05 09:27 | Progress Notes ---
DATE: 02/04/2019 SUBJECTIVE: The patient appears to be doing okay, comfortable, in no distress. OBJECTIVE: VITAL SIGNS: Temperature is 97.4, pulse 82, blood pressure is 112/66, respirations 18, saturation 98%. CHEST: Good breath sounds. No wheezing, no crackles. HEART: Regular rate and rhythm. No murmurs. ABDOMEN: Soft. No tenderness. EXTREMITIES: No edema. LABORATORY DATA: WBC is 3.9, hemoglobin 9.7, hematocrit 28.4, platelets 248. Sodium 140, potassium 3.5, BUN is 12, creatinine 0.4. BNP was 372. IMPRESSION: 1. Respiratory failure. 2. Pneumonia. 3. Dysphagia. 4. Weakness. 5. Status post tracheostomy. 6. Dysphagia. PLAN: 1. Continue nebulizer treatment. 2. Antibiotics. 3. Supportive care. 4. Pulmicort. 5. Awaiting discharge planning and placement. JOB# [id number]
[2019-02-05] MEDS: Lactobacillus Rhamnosus GG 15 Billion CFU CAP.SPRINK PO SCH (10:10)
[2019-02-05] MEDS: Multivitamin w/ Minerals Tab GT SCH (10:10)
[2019-02-05] MEDS: Ferrous Sulfate 325 MG TAB PO SCH (10:10)
[2019-02-05] MEDS: Venelex 60gm Tube TP SCH (10:14)
[2019-02-05] MEDS: INSULIN LISPRO SLIDING SCALE 100 UNITS/ML UNIT SUBQ SCH ×2 (10:23→23:17)
--- NOTE | 2019-02-05 11:22 | Internal Medicine Prog Note ---
Internal Medicine Subjective - Subjective Service Date: 02/04/19 Patient seen and examined:: with staff Patient is:: awake, interactive, in bed, confused (oriented x person only) Patient Complaints of:: other (Remains on nebulizer treatment.) Per staff patient has:: no adverse event, no episodes of fall Internal Medicine Objective - Results Result Diagrams: 02/04/19 05:35 02/04/19 05:35 Recent Labs: Laboratory Last Values WBC 3.8 Th/cmm (4.8-10.8) L 02/04/19 05:35 RBC 2.98 Mil/cmm (3.80-5.10) L 02/04/19 05:35 Hgb 9.7 gm/dL (12-16) L 02/04/19 05:35 Hct 28.4 % (41.0-60) L 02/04/19 05:35 MCV 95.5 fl (81-100) 02/04/19 05:35 MCH 32.5 pg (27.0-31.0) H 02/04/19 05:35 MCHC Differential 34.0 pg (28.0-36.0) 02/04/19 05:35 RDW 15.4 % (11.5-20.0) 02/04/19 05:35 Plt Count 248 Th/cmm (150-400) 02/04/19 05:35 MPV 7.6 fl 02/04/19 05:35 Add Manual Diff YES 01/31/19 05:15 Neutrophils % 61.0 % (40.0-80.0) 02/04/19 05:35 Band Neutrophils % 0 % (0-10) 01/31/19 05:15 Lymphocytes % 26.3 % (20.0-50.0) 02/04/19 05:35 Monocytes % 8.7 % (2.0-10.0) 02/04/19 05:35 Eosinophils % 2.9 % (0.0-5.0) 02/04/19 05:35 Basophils % 1.1 % (0.0-2.0) 02/04/19 05:35 Neutrophils (Manual) 73 % (40-80) 01/31/19 05:15 Lymphocytes 21 % (20-50) 01/31/19 05:15 Monocytes 5 % (2-10) 01/31/19 05:15 Eosinophils 1 % (0-5) 01/31/19 05:15 Basophils 0 % (0-3) 01/31/19 05:15 PT 10.1 SECONDS (9.5-11.5) 01/23/19 02:00 INR 0.97 (0.5-1.4) 01/23/19 02:00 Sodium 140 mEq/L (136-145) 02/04/19 05:35 Potassium 3.5 mEq/L (3.5-5.1) 02/04/19 05:35 Chloride 104 mEq/L (98-107) 02/04/19 05:35 Carbon Dioxide 28.3 mEq/L (21.0-31.0) 02/04/19 05:35 Anion Gap 11.2 (7.0-16.0) 02/04/19 05:35 BUN 12 mg/dL (7-25) 02/04/19 05:35 Creatinine 0.4 mg/dL (0.6-1.2) L 02/04/19 05:35 Est GFR ( Amer) > 60.0 ml/min (>90) 02/04/19 05:35 Est GFR (Non-Af Amer) > 60.0 ml/min 02/04/19 05:35 BUN/Creatinine Ratio 30.0 02/04/19 05:35 Glucose 114 mg/dL (70-105) H 02/04/19 05:35 POC Glucose 96 MG/DL (70 - 105) 02/05/19 10:20 Whole Bld Lactic Acid 1.42 mmol/L (0.60-1.99) 01/23/19 02:00 Calcium 8.9 mg/dL (8.6-10.3) 02/04/19 05:35 Total Bilirubin 0.3 mg/dL (0.3-1.0) 01/30/19 05:45 AST 21 U/L (13-39) 01/30/19 05:45 ALT 31 U/L (7-52) 01/30/19 05:45 Alkaline Phosphatase 110 U/L (34-104) H 01/30/19 05:45 Creatine Kinase 36 U/L (30-223) 01/23/19 02:00 Troponin I < 0.01 ng/mL (0.01-0.05) L 01/23/19 02:00 B-Natriuretic Peptide 372.0 pg/mL (5.0-100.0) H 02/04/19 05:35 Total Protein 6.2 gm/dL (6.0-8.3) 01/30/19 05:45 Albumin 2.8 gm/dL (3.7-5.3) L 01/30/19 05:45 Globulin 3.4 gm/dL 01/30/19 05:45 Albumin/Globulin Ratio 0.8 (1.0-1.8) L 01/30/19 05:45 Triglycerides 120 mg/dL (<150) 01/23/19 02:00 Cholesterol 107 mg/dL (<200) 01/23/19 02:00 LDL Cholesterol Direct 66 mg/dL (75-193) L 01/23/19 02:00 HDL Cholesterol 29 mg/dL (23-92) 01/23/19 02:00 Urine Source CATH 01/23/19 02:20 Urine Color YELLOW 01/23/19 02:20 Urine Clarity CLEAR (CLEAR) 01/23/19 02:20 Urine pH 7.0 (4.6 - 8.0) 01/23/19 02:20 Ur Specific [place] 1.010 (1.005-1.030) 01/23/19 02:20 Urine Protein NEGATIVE mg/dL (NEGATIVE) 01/23/19 02:20 Urine Glucose (UA) NEGATIVE mg/dL (NEGATIVE) 01/23/19 02:20 Urine Ketones NEGATIVE mg/dL (NEGATIVE) 01/23/19 02:20 Urine Blood NEGATIVE (NEGATIVE) 01/23/19 02:20 Urine Nitrate NEGATIVE (NEGATIVE) 01/23/19 02:20 Urine Bilirubin NEGATIVE (NEGATIVE) 01/23/19 02:20 Urine Urobilinogen 0.2 E.U./dL (0.2 - 1.0) 01/23/19 02:20 Ur Leukocyte Esterase NEGATIVE (NEGATIVE) 01/23/19 02:20 Vancomycin Trough 21.1 ug/mL (5-10) H 02/05/19 08:20 - Physical Exam Vitals and I&O: Vital Signs Temp 98 F 02/05/19 07:53 Pulse 90 02/05/19 10:43 Resp 18 02/05/19 10:43 BP 131/86 02/05/19 07:53 Pulse Ox 95 02/05/19 10:43 Intake & Output 02/04/19 02/05/19 02/05/19 18:59 06:59 18:59 Intake Total 250 250 Balance 250 250 Intake: Intake, IV Amount 250 250 Vancomycin HCl 750 mg In 250 250 Sodium Chloride 0.9% 250 ml @ 165 mls/hr IV Q12HR [facility] Rx#:[id number] Active Medications: Current Medications Acetaminophen (Tylenol) 650 mg GT Q6H PRN PRN Reason: mild pain Stop: 03/24/19 13:09 Last Admin: 02/05/19 10:08 Dose: 650 mg Al Hydrox/Mg Hydrox/Simethicone (Maalox) 30 ml GT Q6HR PRN PRN Reason: Abdominal Pain Stop: 03/24/19 13:09 Last Admin: 02/02/19 19:21 Dose: 30 ml Albuterol Sulfate (Albuterol 2.5mg/3ml Neb Ud) 2.5 mg HHN Q2HR PRN PRN Reason: Shortness of Breath Stop: 03/24/19 13:09 Albuterol Sulfate (Albuterol 2.5mg/3ml Neb Ud) 2.5 mg HHN [id number] [facility] Stop: 03/24/19 14:59 Last Admin: 02/05/19 10:43 Dose: 2.5 mg Ascorbic Acid (Vitamin C) 500 mg GT Q12HR [facility] Stop: 03/24/19 20:59 Last Admin: 02/05/19 10:09 Dose: 500 mg Bisacodyl (Dulcolax 10 Mg Supp) 10 mg RC DAILY PRN PRN Reason: Constipation Stop: 03/24/19 13:09 Budesonide (Pulmicort) 0.5 mg HHN BID [facility] Stop: 03/24/19 16:59 Last Admin: 02/05/19 08:05 Dose: 0.5 mg Carvedilol (Coreg) 6.25 mg GT Q12H [facility] Stop: 03/24/19 13:14 Last Admin: 02/05/19 00:27 Dose: 6.25 mg [place] Oil/[place] Balsam/Trypsin (Venelex) 1 appl TP DAILY [facility] Stop: 03/25/19 08:59 Last Admin: 02/05/19 10:14 Dose: 1 appl Dextrose (Glutose 40%) 18.75 gm PO UD PRN PRN Reason: Blood Glucose less than 70 Stop: 03/24/19 13:09 Docusate Sodium (Colace) 200 mg GT Q12H PRN PRN Reason: Constipation Stop: 03/24/19 13:09 Ferrous Sulfate (Iron) 325 mg PO DAILY [facility] Stop: 03/25/19 08:59 Last Admin: 02/05/19 10:10 Dose: 325 mg Glucagon (Glucagen) 1 mg IM PRN PRN PRN Reason: Blood Glucose less than 70 Stop: 03/24/19 13:09 Heparin Sodium (Porcine) (Heparin) 5,000 units SUBQ Q12H [facility] Stop: 03/24/19 13:14 Last Admin: 02/05/19 00:27 Dose: 5,000 units Dextrose/Sodium Chloride (D5-0.45ns) 1,000 mls @ 50 mls/hr IV .Q20H [facility] Stop: 03/26/19 22:14 Last Admin: 02/04/19 09:34 Dose: 50 mls/hr Vancomycin HCl 750 mg/ Sodium (Chloride) 250 mls @ 165 mls/hr IV Q12HR [facility] Stop: 04/01/19 05:59 Last Admin: 02/05/19 10:12 Dose: 165 mls/hr Insulin Human Lispro (Humalog Insulin Sliding Scale) 0 units SUBQ Q12HR [facility]; Protocol Stop: 03/24/19 20:59 Last Admin: 02/05/19 10:23 Dose: Not Given Lactobacillus Rhamnosus (Culturelle 15b) 1 each PO DAILY [facility] Stop: 03/25/19 08:59 Last Admin: 02/05/19 10:10 Dose: 1 each Lorazepam (Ativan) 1 mg GT Q6H PRN; Protocol PRN Reason: Anxiety Stop: 03/24/19 13:09 Last Admin: 02/05/19 10:09 Dose: 1 mg Magnesium Hydroxide (Milk Of Magnesia) 30 ml GT HS PRN PRN Reason: Constipation Stop: 03/24/19 13:09 Miscellaneous (Vancomycin Iv Per Pharmacy) 1 ea MC PRN PRN PRN Reason: PROTOCOL Stop: 03/24/19 10:40 Miscellaneous (Probiotic Screen) 1 ea MC PRN PRN PRN Reason: PROTOCOL Stop: 03/25/19 14:19 Pantoprazole Sodium (Protonix) 40 mg IVP DAILY [facility] Stop: 03/25/19 08:59 Last Admin: 02/05/19 10:10 Dose: 40 mg Sodium Phosphate (Fleet Enema) 135 ml RC Q48HR PRN PRN Reason: Constipation Stop: 03/24/19 13:09 Physical Exam: 58 y/o female patient recently had a fall, possible syncope. patient has weakness and dysphagia. General: weak, alert HEENT: NC/AT Neck: + trach Lungs: other (Respiratory failure, stable.) Cardiovascular: RRR, Normal S1 Abdomen: +GT Extremities: clear Neurological: muscle weakness, unsteady - Procedures Procedures: Procedures Procedure Code Date INSERTION OF FEEDING DEVICE INTO STOMACH, PERC APPROACH [id number] 01/02/19 INSERTION OF INFUSION DEVICE INTO R LOW ARM, PERC APPROACH [id number] 01/02/19 INTRODUCTION OF NUTRITIONAL INTO PERIPH VEIN, PERC APPROACH [id number] 01/02/19 RESPIRATORY VENTILATION, LESS THAN 24 CONSECUTIVE HOURS [id number] 04/07/18 Internal Medicine Assmt/Plan - Assessment Assessment: S/p fall. Chronic Respiratory Failure. Pneumonia. Weakness. Hypertension. Diabetes. CAD. Copd. Dyslipidemia. Gerd. S/p trach and PEG. - Plan Plan: Continuation of care Continue present antibiotics and meds as directed Fall precaution. Continue nebulizer treatment and pulmonary support. Aspiration precaution. Supportive care. Discharge planning/awaiting placement. Continue present care management. Nutritional Asmnt/Malnutr-PDOC - Dietary Evaluation Malnutrition Findings (Please click <Entered> for more info): Nutritional Asmnt/Malnutrition Start: 01/24/19 17: 26 Text: Status: Complete Freq: Protocol: Document 01/24/19 17:27 LCHENG (Rec: 01/24/19 17:49 LCHENG [email or web address]) Nutritional Asmnt/Malnutrition Patient General Information Nutritional Screening High Risk Consult Diagnosis falls and weakness Pertinent Medical Hx/Surgical Hx HTN, DM, CAD, asthma/COPD, dyslipidemia, PUD/GERD, PEG/ Gtube Subjective Information Pt seen resting in bed at time of visit. Spoke with RN yesterday regarding TF regimen . Current Diet Order/ Nutrition Support Jevity 1.2 at 60ml/hr x 20hr Pertinent Medications vitC, colace, iron, heparin, humalog, culturelle Pertinent Labs 01/24 Cr 0.4, Glucose 99, POC 67-83 Nutritional Hx/Data Height 1.63 m Height (Calculated Centimeters) 162.6 Current Weight (lbs) 41.277 kg Weight (Calculated Kilograms) 41.3 Weight (Calculated Grams) 92451.9 [place] Body Weight 120 Body Mass Index (BMI) 15.6 Weight Status Underweight GI Symptoms GI Symptoms None Last BM none Difficult in: None Estimated Nutritional Goals Calories/Kcals/Kg 25-30 IBW 55kg Kcals Calculated 0397-9558 Protein g/k-1.2 Protein Calculated 55-66 Fluid: ml 1265-1485ml (1ml/kcal) Nutritional Problem No current Nutrition Prob Problem N/A Intervention/Recommendation Comments 1. Continue with current TF regimen Jevity 1.2 at 60ml/hr x 20hr. It provides 1440kcal, 67g protein, 968ml free water, meeting 100% of nutritional needs 2. Monitor TF rate, tolerance, wt, skin integrity and labs 3. F/U as low risk in 7 days Expected Outcomes/Goals Expected Outcomes/Goals 1. Pt to meet at least 90% of nutritional needs via nutrition support with tolerance 2. Wt stability, skin to remain intact, labs to approach WNL.
--- NOTE | 2019-02-05 14:44 | Internal Medicine Prog Note ---
Internal Medicine Subjective - Subjective Service Date: 02/05/19 Patient is:: awake, interactive, in bed, confused (oriented x person only) Patient Complaints of:: other (Remains on nebulizer treatment.) Per staff patient has:: no adverse event, no episodes of fall Internal Medicine Objective - Results Result Diagrams: 02/04/19 05:35 02/04/19 05:35 Recent Labs: Laboratory Last Values WBC 3.8 Th/cmm (4.8-10.8) L 02/04/19 05:35 RBC 2.98 Mil/cmm (3.80-5.10) L 02/04/19 05:35 Hgb 9.7 gm/dL (12-16) L 02/04/19 05:35 Hct 28.4 % (41.0-60) L 02/04/19 05:35 MCV 95.5 fl (81-100) 02/04/19 05:35 MCH 32.5 pg (27.0-31.0) H 02/04/19 05:35 MCHC Differential 34.0 pg (28.0-36.0) 02/04/19 05:35 RDW 15.4 % (11.5-20.0) 02/04/19 05:35 Plt Count 248 Th/cmm (150-400) 02/04/19 05:35 MPV 7.6 fl 02/04/19 05:35 Add Manual Diff YES 01/31/19 05:15 Neutrophils % 61.0 % (40.0-80.0) 02/04/19 05:35 Band Neutrophils % 0 % (0-10) 01/31/19 05:15 Lymphocytes % 26.3 % (20.0-50.0) 02/04/19 05:35 Monocytes % 8.7 % (2.0-10.0) 02/04/19 05:35 Eosinophils % 2.9 % (0.0-5.0) 02/04/19 05:35 Basophils % 1.1 % (0.0-2.0) 02/04/19 05:35 Neutrophils (Manual) 73 % (40-80) 01/31/19 05:15 Lymphocytes 21 % (20-50) 01/31/19 05:15 Monocytes 5 % (2-10) 01/31/19 05:15 Eosinophils 1 % (0-5) 01/31/19 05:15 Basophils 0 % (0-3) 01/31/19 05:15 PT 10.1 SECONDS (9.5-11.5) 01/23/19 02:00 INR 0.97 (0.5-1.4) 01/23/19 02:00 Sodium 140 mEq/L (136-145) 02/04/19 05:35 Potassium 3.5 mEq/L (3.5-5.1) 02/04/19 05:35 Chloride 104 mEq/L (98-107) 02/04/19 05:35 Carbon Dioxide 28.3 mEq/L (21.0-31.0) 02/04/19 05:35 Anion Gap 11.2 (7.0-16.0) 02/04/19 05:35 BUN 12 mg/dL (7-25) 02/04/19 05:35 Creatinine 0.4 mg/dL (0.6-1.2) L 02/04/19 05:35 Est GFR ( Amer) > 60.0 ml/min (>90) 02/04/19 05:35 Est GFR (Non-Af Amer) > 60.0 ml/min 02/04/19 05:35 BUN/Creatinine Ratio 30.0 02/04/19 05:35 Glucose 114 mg/dL (70-105) H 02/04/19 05:35 POC Glucose 96 MG/DL (70 - 105) 02/05/19 10:20 Whole Bld Lactic Acid 1.42 mmol/L (0.60-1.99) 01/23/19 02:00 Calcium 8.9 mg/dL (8.6-10.3) 02/04/19 05:35 Total Bilirubin 0.3 mg/dL (0.3-1.0) 01/30/19 05:45 AST 21 U/L (13-39) 01/30/19 05:45 ALT 31 U/L (7-52) 01/30/19 05:45 Alkaline Phosphatase 110 U/L (34-104) H 01/30/19 05:45 Creatine Kinase 36 U/L (30-223) 01/23/19 02:00 Troponin I < 0.01 ng/mL (0.01-0.05) L 01/23/19 02:00 B-Natriuretic Peptide 372.0 pg/mL (5.0-100.0) H 02/04/19 05:35 Total Protein 6.2 gm/dL (6.0-8.3) 01/30/19 05:45 Albumin 2.8 gm/dL (3.7-5.3) L 01/30/19 05:45 Globulin 3.4 gm/dL 01/30/19 05:45 Albumin/Globulin Ratio 0.8 (1.0-1.8) L 01/30/19 05:45 Triglycerides 120 mg/dL (<150) 01/23/19 02:00 Cholesterol 107 mg/dL (<200) 01/23/19 02:00 LDL Cholesterol Direct 66 mg/dL (75-193) L 01/23/19 02:00 HDL Cholesterol 29 mg/dL (23-92) 01/23/19 02:00 Urine Source CATH 01/23/19 02:20 Urine Color YELLOW 01/23/19 02:20 Urine Clarity CLEAR (CLEAR) 01/23/19 02:20 Urine pH 7.0 (4.6 - 8.0) 01/23/19 02:20 Ur Specific [place] 1.010 (1.005-1.030) 01/23/19 02:20 Urine Protein NEGATIVE mg/dL (NEGATIVE) 01/23/19 02:20 Urine Glucose (UA) NEGATIVE mg/dL (NEGATIVE) 01/23/19 02:20 Urine Ketones NEGATIVE mg/dL (NEGATIVE) 01/23/19 02:20 Urine Blood NEGATIVE (NEGATIVE) 01/23/19 02:20 Urine Nitrate NEGATIVE (NEGATIVE) 01/23/19 02:20 Urine Bilirubin NEGATIVE (NEGATIVE) 01/23/19 02:20 Urine Urobilinogen 0.2 E.U./dL (0.2 - 1.0) 01/23/19 02:20 Ur Leukocyte Esterase NEGATIVE (NEGATIVE) 01/23/19 02:20 Vancomycin Trough 21.1 ug/mL (5-10) H 02/05/19 08:20 - Physical Exam Vitals and I&O: Vital Signs Temp 98.3 F 02/05/19 11:36 Pulse 89 02/05/19 14:06 Resp 18 02/05/19 14:06 BP 150/90 02/05/19 13:23 Pulse Ox 95 02/05/19 14:06 Intake & Output 02/04/19 02/05/19 02/05/19 18:59 06:59 18:59 Intake Total 250 250 Balance 250 250 Intake: Intake, IV Amount 250 250 Vancomycin HCl 750 mg In 250 250 Sodium Chloride 0.9% 250 ml @ 165 mls/hr IV Q12HR [facility] Rx#:[id number] Active Medications: Current Medications Acetaminophen (Tylenol) 650 mg GT Q6H PRN PRN Reason: mild pain Stop: 03/24/19 13:09 Last Admin: 02/05/19 10:08 Dose: 650 mg Al Hydrox/Mg Hydrox/Simethicone (Maalox) 30 ml GT Q6HR PRN PRN Reason: Abdominal Pain Stop: 03/24/19 13:09 Last Admin: 02/02/19 19:21 Dose: 30 ml Albuterol Sulfate (Albuterol 2.5mg/3ml Neb Ud) 2.5 mg HHN Q2HR PRN PRN Reason: Shortness of Breath Stop: 03/24/19 13:09 Albuterol Sulfate (Albuterol 2.5mg/3ml Neb Ud) 2.5 mg HHN [id number] [facility] Stop: 03/24/19 14:59 Last Admin: 02/05/19 14:06 Dose: 2.5 mg Ascorbic Acid (Vitamin C) 500 mg GT Q12HR [facility] Stop: 03/24/19 20:59 Last Admin: 02/05/19 10:09 Dose: 500 mg Bisacodyl (Dulcolax 10 Mg Supp) 10 mg RC DAILY PRN PRN Reason: Constipation Stop: 03/24/19 13:09 Budesonide (Pulmicort) 0.5 mg HHN BID [facility] Stop: 03/24/19 16:59 Last Admin: 02/05/19 08:05 Dose: 0.5 mg Carvedilol (Coreg) 6.25 mg GT Q12H [facility] Stop: 03/24/19 13:14 Last Admin: 02/05/19 13:23 Dose: 6.25 mg [place] Oil/[place] Balsam/Trypsin (Venelex) 1 appl TP DAILY [facility] Stop: 03/25/19 08:59 Last Admin: 02/05/19 10:14 Dose: 1 appl Dextrose (Glutose 40%) 18.75 gm PO UD PRN PRN Reason: Blood Glucose less than 70 Stop: 03/24/19 13:09 Docusate Sodium (Colace) 200 mg GT Q12H PRN PRN Reason: Constipation Stop: 03/24/19 13:09 Ferrous Sulfate (Iron) 325 mg PO DAILY [facility] Stop: 03/25/19 08:59 Last Admin: 02/05/19 10:10 Dose: 325 mg Glucagon (Glucagen) 1 mg IM PRN PRN PRN Reason: Blood Glucose less than 70 Stop: 03/24/19 13:09 Heparin Sodium (Porcine) (Heparin) 5,000 units SUBQ Q12H [facility] Stop: 03/24/19 13:14 Last Admin: 02/05/19 13:22 Dose: 5,000 units Dextrose/Sodium Chloride (D5-0.45ns) 1,000 mls @ 50 mls/hr IV .Q20H [facility] Stop: 03/26/19 22:14 Last Admin: 02/04/19 09:34 Dose: 50 mls/hr Vancomycin HCl 750 mg/ Sodium (Chloride) 250 mls @ 165 mls/hr IV Q12HR [facility] Stop: 04/01/19 05:59 Last Admin: 02/05/19 10:12 Dose: 165 mls/hr Insulin Human Lispro (Humalog Insulin Sliding Scale) 0 units SUBQ Q12HR [facility]; Protocol Stop: 03/24/19 20:59 Last Admin: 02/05/19 10:23 Dose: Not Given Lactobacillus Rhamnosus (Culturelle 15b) 1 each PO DAILY [facility] Stop: 03/25/19 08:59 Last Admin: 02/05/19 10:10 Dose: 1 each Lorazepam (Ativan) 1 mg GT Q6H PRN; Protocol PRN Reason: Anxiety Stop: 03/24/19 13:09 Last Admin: 02/05/19 10:09 Dose: 1 mg Magnesium Hydroxide (Milk Of Magnesia) 30 ml GT HS PRN PRN Reason: Constipation Stop: 03/24/19 13:09 Miscellaneous (Vancomycin Iv Per Pharmacy) 1 ea MC PRN PRN PRN Reason: PROTOCOL Stop: 03/24/19 10:40 Miscellaneous (Probiotic Screen) 1 ea MC PRN PRN PRN Reason: PROTOCOL Stop: 05/28/19 14:19 Pantoprazole Sodium (Protonix) 40 mg IVP DAILY [facility] Stop: 03/25/19 08:59 Last Admin: 02/05/19 10:10 Dose: 40 mg Sodium Phosphate (Fleet Enema) 135 ml RC Q48HR PRN PRN Reason: Constipation Stop: 03/24/19 13:09 General: weak, alert HEENT: NC/AT Neck: + trach Lungs: other (Respiratory failure, stable.) Cardiovascular: RRR, Normal S1 Abdomen: +GT Extremities: clear Neurological: muscle weakness, unsteady - Procedures Procedures: Procedures Procedure Code Date INSERTION OF FEEDING DEVICE INTO STOMACH, PERC APPROACH [id number] 01/02/19 INSERTION OF INFUSION DEVICE INTO R LOW ARM, PERC APPROACH [id number] 01/02/19 INTRODUCTION OF NUTRITIONAL INTO PERIPH VEIN, PERC APPROACH [id number] 01/02/19 RESPIRATORY VENTILATION, LESS THAN 24 CONSECUTIVE HOURS [id number] 04/07/18 Internal Medicine Assmt/Plan - Assessment Assessment: S/p fall. Chronic Respiratory Failure. Hypertension. Diabetes. CAD. Copd. Dyslipidemia. Gerd. S/p trach and PEG. - Plan Plan: continue vanco as per ID placement issues am labs continue current plan of care Nutritional Asmnt/Malnutr-PDOC - Dietary Evaluation Malnutrition Findings (Please click <Entered> for more info): Nutritional Asmnt/Malnutrition Start: 01/24/19 17: 26 Text: Status: Complete Freq: Protocol: Document 01/24/19 17:27 LCHENG (Rec: 01/24/19 17:49 [email or web address]) Nutritional Asmnt/Malnutrition Patient General Information Nutritional Screening High Risk Consult Diagnosis falls and weakness Pertinent Medical Hx/Surgical Hx HTN, DM, CAD, asthma/COPD, dyslipidemia, PUD/GERD, PEG/ Gtube Subjective Information Pt seen resting in bed at time of visit. Spoke with RN yesterday regarding TF regimen . Current Diet Order/ Nutrition Support Jevity 1.2 at 60ml/hr x 20hr Pertinent Medications vitC, colace, iron, heparin, humalog, culturelle Pertinent Labs 01/24 Cr 0.4, Glucose 99, POC 67-83 Nutritional Hx/Data Height 5 ft 4 in Height (Calculated Centimeters) 162.6 Current Weight (lbs) 91 lb Weight (Calculated Kilograms) 41.3 Weight (Calculated Grams) 91751.9 [place] Body Weight 120 Body Mass Index (BMI) 15.6 Weight Status Underweight GI Symptoms GI Symptoms None Last BM none Difficult in: None Estimated Nutritional Goals Calories/Kcals/Kg 25-30 IBW 55kg Kcals Calculated 1160-1501 Protein g/k-1.2 Protein Calculated 55-66 Fluid: ml 1265-1485ml (1ml/kcal) Nutritional Problem No current Nutrition Prob Problem N/A Intervention/Recommendation Comments 1. Continue with current TF regimen Jevity 1.2 at 60ml/hr x 20hr. It provides 1440kcal, 67g protein, 968ml free water, meeting 100% of nutritional needs 2. Monitor TF rate, tolerance, wt, skin integrity and labs 3. F/U as low risk in 7 days Expected Outcomes/Goals Expected Outcomes/Goals 1. Pt to meet at least 90% of nutritional needs via nutrition support with tolerance 2. Wt stability, skin to remain intact, labs to approach WNL.
[2019-02-06] MEDS: Albuterol Nebulizer 2.5mg/3mL HHN SCH ×4 (07:15→19:02)
[2019-02-06] MEDS: Budesonide 0.5 Mg/2 mL Ud HHN SCH ×2 (07:15→19:01)
[2019-02-06] MEDS: Lactobacillus Rhamnosus GG 15 Billion CFU CAP.SPRINK PO SCH (08:57)
[2019-02-06] MEDS: Multivitamin w/ Minerals Tab GT SCH (08:57)
[2019-02-06] MEDS: Ferrous Sulfate 325 MG TAB PO SCH (08:57)
--- NOTE | 2019-02-06 09:58 | Progress Notes ---
DATE: 02/05/2019 SUBJECTIVE: The patient appears to be doing okay, in no distress. OBJECTIVE: VITAL SIGNS: Temperature is 98.3, pulse 80, respiration 18, blood pressure 150/90, saturation 98%. CHEST: Good breath sounds. No wheezing. Few rhonchi. HEART: Regular rate and rhythm. ABDOMEN: Soft. EXTREMITIES: No edema. LABORATORY DATA: WBC 3.8, hemoglobin 9.7, platelets 248. Sodium 140, potassium 3.5, BUN is 12, creatinine 0.4. IMPRESSION: 1. Respiratory failure. 2. Chronic obstructive pulmonary disease. 3. Weakness. 4. Status post tracheostomy. PLAN: 1. Continue supportive care. 2. Nebulizer treatment. 3. Oxygen supplementation. 4. Awaiting discharge planning in progress. JOB# [id number]
[2019-02-06] MEDS: INSULIN LISPRO SLIDING SCALE 100 UNITS/ML UNIT SUBQ SCH ×2 (09:59→21:00)
--- NOTE | 2019-02-06 13:24 | Infectious Disease Prog Note ---
Infectious Disease Subjective - Review of Systems Service Date: 02/06/19 Subjective: There is no new change, no fever. Infectious Disease Objective - Results Result Diagrams: 02/04/19 05:35 02/04/19 05:35 Recent Labs: Laboratory Last Values WBC 3.8 Th/cmm (4.8-10.8) L 02/04/19 05:35 RBC 2.98 Mil/cmm (3.80-5.10) L 02/04/19 05:35 Hgb 9.7 gm/dL (12-16) L 02/04/19 05:35 Hct 28.4 % (41.0-60) L 02/04/19 05:35 MCV 95.5 fl (81-100) 02/04/19 05:35 MCH 32.5 pg (27.0-31.0) H 02/04/19 05:35 MCHC Differential 34.0 pg (28.0-36.0) 02/04/19 05:35 RDW 15.4 % (11.5-20.0) 02/04/19 05:35 Plt Count 248 Th/cmm (150-400) 02/04/19 05:35 MPV 7.6 fl 02/04/19 05:35 Add Manual Diff YES 01/31/19 05:15 Neutrophils % 61.0 % (40.0-80.0) 02/04/19 05:35 Band Neutrophils % 0 % (0-10) 01/31/19 05:15 Lymphocytes % 26.3 % (20.0-50.0) 02/04/19 05:35 Monocytes % 8.7 % (2.0-10.0) 02/04/19 05:35 Eosinophils % 2.9 % (0.0-5.0) 02/04/19 05:35 Basophils % 1.1 % (0.0-2.0) 02/04/19 05:35 Neutrophils (Manual) 73 % (40-80) 01/31/19 05:15 Lymphocytes 21 % (20-50) 01/31/19 05:15 Monocytes 5 % (2-10) 01/31/19 05:15 Eosinophils 1 % (0-5) 01/31/19 05:15 Basophils 0 % (0-3) 01/31/19 05:15 PT 10.1 SECONDS (9.5-11.5) 01/23/19 02:00 INR 0.97 (0.5-1.4) 01/23/19 02:00 Sodium 140 mEq/L (136-145) 02/04/19 05:35 Potassium 3.5 mEq/L (3.5-5.1) 02/04/19 05:35 Chloride 104 mEq/L (98-107) 02/04/19 05:35 Carbon Dioxide 28.3 mEq/L (21.0-31.0) 02/04/19 05:35 Anion Gap 11.2 (7.0-16.0) 02/04/19 05:35 BUN 12 mg/dL (7-25) 02/04/19 05:35 Creatinine 0.4 mg/dL (0.6-1.2) L 02/04/19 05:35 Est GFR ( Amer) > 60.0 ml/min (>90) 02/04/19 05:35 Est GFR (Non-Af Amer) > 60.0 ml/min 02/04/19 05:35 BUN/Creatinine Ratio 30.0 02/04/19 05:35 Glucose 114 mg/dL (70-105) H 02/04/19 05:35 POC Glucose 69 MG/DL (70 - 105) L 02/06/19 09:05 Whole Bld Lactic Acid 1.42 mmol/L (0.60-1.99) 01/23/19 02:00 Calcium 8.9 mg/dL (8.6-10.3) 02/04/19 05:35 Total Bilirubin 0.3 mg/dL (0.3-1.0) 01/30/19 05:45 AST 21 U/L (13-39) 01/30/19 05:45 ALT 31 U/L (7-52) 01/30/19 05:45 Alkaline Phosphatase 110 U/L (34-104) H 01/30/19 05:45 Creatine Kinase 36 U/L (30-223) 01/23/19 02:00 Troponin I < 0.01 ng/mL (0.01-0.05) L 01/23/19 02:00 B-Natriuretic Peptide 372.0 pg/mL (5.0-100.0) H 02/04/19 05:35 Total Protein 6.2 gm/dL (6.0-8.3) 01/30/19 05:45 Albumin 2.8 gm/dL (3.7-5.3) L 01/30/19 05:45 Globulin 3.4 gm/dL 01/30/19 05:45 Albumin/Globulin Ratio 0.8 (1.0-1.8) L 01/30/19 05:45 Triglycerides 120 mg/dL (<150) 01/23/19 02:00 Cholesterol 107 mg/dL (<200) 01/23/19 02:00 LDL Cholesterol Direct 66 mg/dL (75-193) L 01/23/19 02:00 HDL Cholesterol 29 mg/dL (23-92) 01/23/19 02:00 Urine Source CATH 01/23/19 02:20 Urine Color YELLOW 01/23/19 02:20 Urine Clarity CLEAR (CLEAR) 01/23/19 02:20 Urine pH 7.0 (4.6 - 8.0) 01/23/19 02:20 Ur Specific [place] 1.010 (1.005-1.030) 01/23/19 02:20 Urine Protein NEGATIVE mg/dL (NEGATIVE) 01/23/19 02:20 Urine Glucose (UA) NEGATIVE mg/dL (NEGATIVE) 01/23/19 02:20 Urine Ketones NEGATIVE mg/dL (NEGATIVE) 01/23/19 02:20 Urine Blood NEGATIVE (NEGATIVE) 01/23/19 02:20 Urine Nitrate NEGATIVE (NEGATIVE) 01/23/19 02:20 Urine Bilirubin NEGATIVE (NEGATIVE) 01/23/19 02:20 Urine Urobilinogen 0.2 E.U./dL (0.2 - 1.0) 01/23/19 02:20 Ur Leukocyte Esterase NEGATIVE (NEGATIVE) 01/23/19 02:20 Vancomycin Trough 21.1 ug/mL (5-10) H 02/05/19 08:20 - Physical Exam Vitals and I&O: Vital Signs Temp 97.0 F 02/06/19 12:22 Pulse 70 02/06/19 12:22 Resp 18 02/06/19 12:22 BP 128/82 02/06/19 12:22 Pulse Ox 98 02/06/19 12:22 Intake & Output 02/05/19 02/06/19 02/06/19 18:59 06:59 18:59 Intake Total 250 1170 Output Total 3 Balance 250 1167 Weight (lbs) 50.258 kg Intake: Intake, IV Amount 250 250 Vancomycin HCl 750 mg In 250 250 Sodium Chloride 0.9% 250 ml @ 165 mls/hr IV Q12HR [facility] Rx#:[id number] Oral 0 Tube Feeding 420 Other 500 Output: Urine 3 Other: # Voids 4 # Bowel Movements 0 Weight Source Bedscale Active Medications: Current Medications Acetaminophen (Tylenol) 650 mg GT Q6H PRN PRN Reason: mild pain Stop: 03/24/19 13:09 Last Admin: 02/05/19 10:08 Dose: 650 mg Al Hydrox/Mg Hydrox/Simethicone (Maalox) 30 ml GT Q6HR PRN PRN Reason: Abdominal Pain Stop: 03/24/19 13:09 Last Admin: 02/02/19 19:21 Dose: 30 ml Albuterol Sulfate (Albuterol 2.5mg/3ml Neb Ud) 2.5 mg HHN Q2HR PRN PRN Reason: Shortness of Breath Stop: 03/24/19 13:09 Albuterol Sulfate (Albuterol 2.5mg/3ml Neb Ud) 2.5 mg HHN [id number] [facility] Stop: 03/24/19 14:59 Last Admin: 02/06/19 10:50 Dose: 2.5 mg Ascorbic Acid (Vitamin C) 500 mg GT Q12HR [facility] Stop: 03/24/19 20:59 Last Admin: 02/06/19 08:57 Dose: 500 mg Bisacodyl (Dulcolax 10 Mg Supp) 10 mg RC DAILY PRN PRN Reason: Constipation Stop: 03/24/19 13:09 Budesonide (Pulmicort) 0.5 mg HHN BID [facility] Stop: 03/24/19 16:59 Last Admin: 02/06/19 07:15 Dose: 0.5 mg Carvedilol (Coreg) 6.25 mg GT Q12H [facility] Stop: 03/24/19 13:14 Last Admin: 02/06/19 02:36 Dose: 6.25 mg [place] Oil/[place] Balsam/Trypsin (Venelex) 1 appl TP DAILY [facility] Stop: 03/25/19 08:59 Last Admin: 02/05/19 10:14 Dose: 1 appl Dextrose (Glutose 40%) 18.75 gm PO UD PRN PRN Reason: Blood Glucose less than 70 Stop: 03/24/19 13:09 Docusate Sodium (Colace) 200 mg GT Q12H PRN PRN Reason: Constipation Stop: 03/24/19 13:09 Ferrous Sulfate (Iron) 325 mg PO DAILY [facility] Stop: 03/25/19 08:59 Last Admin: 02/06/19 08:57 Dose: 325 mg Glucagon (Glucagen) 1 mg IM PRN PRN PRN Reason: Blood Glucose less than 70 Stop: 03/24/19 13:09 Heparin Sodium (Porcine) (Heparin) 5,000 units SUBQ Q12H [facility] Stop: 03/24/19 13:14 Last Admin: 02/06/19 02:46 Dose: 5,000 units Dextrose/Sodium Chloride (D5-0.45ns) 1,000 mls @ 50 mls/hr IV .Q20H [facility] Stop: 03/26/19 22:14 Last Admin: 02/04/19 09:34 Dose: 50 mls/hr Vancomycin HCl 750 mg/ Sodium (Chloride) 250 mls @ 165 mls/hr IV Q12HR [facility] Stop: 04/01/19 05:59 Last Admin: 02/06/19 10:14 Dose: 165 mls/hr Insulin Human Lispro (Humalog Insulin Sliding Scale) 0 units SUBQ Q12HR [facility]; Protocol Stop: 03/24/19 20:59 Last Admin: 02/06/19 09:59 Dose: Not Given Lactobacillus Rhamnosus (Culturelle 15b) 1 each PO DAILY [facility] Stop: 03/25/19 08:59 Last Admin: 02/06/19 08:57 Dose: 1 each Lorazepam (Ativan) 1 mg GT Q6H PRN; Protocol PRN Reason: Anxiety Stop: 03/24/19 13:09 Last Admin: 02/05/19 10:09 Dose: 1 mg Magnesium Hydroxide (Milk Of Magnesia) 30 ml GT HS PRN PRN Reason: Constipation Stop: 03/24/19 13:09 Miscellaneous (Probiotic Screen) 1 ea MC PRN PRN PRN Reason: PROTOCOL Stop: 03/25/19 14:19 Pantoprazole Sodium (Protonix) 40 mg IVP DAILY [facility] Stop: 03/25/19 08:59 Last Admin: 02/06/19 08:57 Dose: 40 mg Sodium Phosphate (Fleet Enema) 135 ml RC Q48HR PRN PRN Reason: Constipation Stop: 03/24/19 13:09 General: no acute distress, well developed, well nourished HEENT: atraumatic, normocephalic, PERRLA, EOMI Neck: supple, no thyromegaly Cardiovascular: S1S2, regular Lungs: clear to auscultation bilaterally, clear to percussion Abdomen: soft, no tender, no distended Extremities: no cyanosis, no clubbing, no edema Neurological: awake Skin: intact - Procedures Procedures: Procedures Procedure Code Date INSERTION OF FEEDING DEVICE INTO STOMACH, PERC APPROACH [id number] 01/02/19 INSERTION OF INFUSION DEVICE INTO R LOW ARM, PERC APPROACH [id number] 01/02/19 INTRODUCTION OF NUTRITIONAL INTO PERIPH VEIN, PERC APPROACH [id number] 01/02/19 RESPIRATORY VENTILATION, LESS THAN 24 CONSECUTIVE HOURS [id number] 04/07/18 Infectious Disease Assmt/Plan - Assessment Assessment: 1. MRSA sepsis. treated 2. discitis/osteomyelitis of lumbar spine. 3. Dementia. 4. Dysphagia requiring G-tube placement, but she has pulled out G-tube 3 times already. 5. Dementia. 6. Protein-calorie malnutrition and failure to thrive. 7. Psychosis. 8. Chronic obstructive pulmonary disease. 9. Leukopenia. - Plan Plan: Continue vanco iv for 6 to 8 weeks with trough level 12 - 20. MRI of LS spine to see the response to the therapy. MIRTA Harris, [employer], but it was cancelled. Nutritional Asmnt/Malnutr-PDOC - Dietary Evaluation Malnutrition Findings (Please click <Entered> for more info): Nutritional Asmnt/Malnutrition Start: 01/24/19 17: 26 Text: Status: Complete Freq: Protocol: Document 01/24/19 17:27 LCHENG (Rec: 01/24/19 17:49 [email or web address]) Nutritional Asmnt/Malnutrition Patient General Information Nutritional Screening High Risk Consult Diagnosis falls and weakness Pertinent Medical Hx/Surgical Hx HTN, DM, CAD, asthma/COPD, dyslipidemia, PUD/GERD, PEG/ Gtube Subjective Information Pt seen resting in bed at time of visit. Spoke with RN yesterday regarding TF regimen . Current Diet Order/ Nutrition Support Jevity 1.2 at 60ml/hr x 20hr Pertinent Medications vitC, colace, iron, heparin, humalog, culturelle Pertinent Labs 01/24 Cr 0.4, Glucose 99, POC 67-83 Nutritional Hx/Data Height 1.63 m Height (Calculated Centimeters) 162.6 Current Weight (lbs) 41.277 kg Weight (Calculated Kilograms) 41.3 Weight (Calculated Grams) 13703.9 [place] Body Weight 120 Body Mass Index (BMI) 15.6 Weight Status Underweight GI Symptoms GI Symptoms None Last BM none Difficult in: None Estimated Nutritional Goals Calories/Kcals/Kg 25-30 IBW 55kg Kcals Calculated 1571-2448 Protein g/k-1.2 Protein Calculated 55-66 Fluid: ml 1265-1485ml (1ml/kcal) Nutritional Problem No current Nutrition Prob Problem N/A Intervention/Recommendation Comments 1. Continue with current TF regimen Jevity 1.2 at 60ml/hr x 20hr. It provides 1440kcal, 67g protein, 968ml free water, meeting 100% of nutritional needs 2. Monitor TF rate, tolerance, wt, skin integrity and labs 3. F/U as low risk in 7 days Expected Outcomes/Goals Expected Outcomes/Goals 1. Pt to meet at least 90% of nutritional needs via nutrition support with tolerance 2. Wt stability, skin to remain intact, labs to approach WNL.
[2019-02-06] MEDS: D5-0.45NS 1,000 ML IV SCH (16:41)
[2019-02-06] MEDS: Venelex 60gm Tube TP SCH (16:42)
--- NOTE | 2019-02-06 22:26 | Internal Medicine Prog Note ---
Internal Medicine Subjective - Subjective Service Date: 02/06/19 Patient is:: awake, interactive, in bed, confused (oriented x person only) Patient Complaints of:: other (Remains on nebulizer treatment.) Per staff patient has:: no adverse event, no episodes of fall Internal Medicine Objective - Results Result Diagrams: 02/04/19 05:35 02/04/19 05:35 Recent Labs: Laboratory Last Values WBC 3.8 Th/cmm (4.8-10.8) L 02/04/19 05:35 RBC 2.98 Mil/cmm (3.80-5.10) L 02/04/19 05:35 Hgb 9.7 gm/dL (12-16) L 02/04/19 05:35 Hct 28.4 % (41.0-60) L 02/04/19 05:35 MCV 95.5 fl (81-100) 02/04/19 05:35 MCH 32.5 pg (27.0-31.0) H 02/04/19 05:35 MCHC Differential 34.0 pg (28.0-36.0) 02/04/19 05:35 RDW 15.4 % (11.5-20.0) 02/04/19 05:35 Plt Count 248 Th/cmm (150-400) 02/04/19 05:35 MPV 7.6 fl 02/04/19 05:35 Add Manual Diff YES 01/31/19 05:15 Neutrophils % 61.0 % (40.0-80.0) 02/04/19 05:35 Band Neutrophils % 0 % (0-10) 01/31/19 05:15 Lymphocytes % 26.3 % (20.0-50.0) 02/04/19 05:35 Monocytes % 8.7 % (2.0-10.0) 02/04/19 05:35 Eosinophils % 2.9 % (0.0-5.0) 02/04/19 05:35 Basophils % 1.1 % (0.0-2.0) 02/04/19 05:35 Neutrophils (Manual) 73 % (40-80) 01/31/19 05:15 Lymphocytes 21 % (20-50) 01/31/19 05:15 Monocytes 5 % (2-10) 01/31/19 05:15 Eosinophils 1 % (0-5) 01/31/19 05:15 Basophils 0 % (0-3) 01/31/19 05:15 PT 10.1 SECONDS (9.5-11.5) 01/23/19 02:00 INR 0.97 (0.5-1.4) 01/23/19 02:00 Sodium 140 mEq/L (136-145) 02/04/19 05:35 Potassium 3.5 mEq/L (3.5-5.1) 02/04/19 05:35 Chloride 104 mEq/L (98-107) 02/04/19 05:35 Carbon Dioxide 28.3 mEq/L (21.0-31.0) 02/04/19 05:35 Anion Gap 11.2 (7.0-16.0) 02/04/19 05:35 BUN 12 mg/dL (7-25) 02/04/19 05:35 Creatinine 0.4 mg/dL (0.6-1.2) L 02/04/19 05:35 Est GFR ( Amer) > 60.0 ml/min (>90) 02/04/19 05:35 Est GFR (Non-Af Amer) > 60.0 ml/min 02/04/19 05:35 BUN/Creatinine Ratio 30.0 02/04/19 05:35 Glucose 114 mg/dL (70-105) H 02/04/19 05:35 POC Glucose 87 MG/DL (70 - 105) 02/06/19 19:03 Whole Bld Lactic Acid 1.42 mmol/L (0.60-1.99) 01/23/19 02:00 Calcium 8.9 mg/dL (8.6-10.3) 02/04/19 05:35 Total Bilirubin 0.3 mg/dL (0.3-1.0) 01/30/19 05:45 AST 21 U/L (13-39) 01/30/19 05:45 ALT 31 U/L (7-52) 01/30/19 05:45 Alkaline Phosphatase 110 U/L (34-104) H 01/30/19 05:45 Creatine Kinase 36 U/L (30-223) 01/23/19 02:00 Troponin I < 0.01 ng/mL (0.01-0.05) L 01/23/19 02:00 B-Natriuretic Peptide 372.0 pg/mL (5.0-100.0) H 02/04/19 05:35 Total Protein 6.2 gm/dL (6.0-8.3) 01/30/19 05:45 Albumin 2.8 gm/dL (3.7-5.3) L 01/30/19 05:45 Globulin 3.4 gm/dL 01/30/19 05:45 Albumin/Globulin Ratio 0.8 (1.0-1.8) L 01/30/19 05:45 Triglycerides 120 mg/dL (<150) 01/23/19 02:00 Cholesterol 107 mg/dL (<200) 01/23/19 02:00 LDL Cholesterol Direct 66 mg/dL (75-193) L 01/23/19 02:00 HDL Cholesterol 29 mg/dL (23-92) 01/23/19 02:00 Urine Source CATH 01/23/19 02:20 Urine Color YELLOW 01/23/19 02:20 Urine Clarity CLEAR (CLEAR) 01/23/19 02:20 Urine pH 7.0 (4.6 - 8.0) 01/23/19 02:20 Ur Specific [place] 1.010 (1.005-1.030) 01/23/19 02:20 Urine Protein NEGATIVE mg/dL (NEGATIVE) 01/23/19 02:20 Urine Glucose (UA) NEGATIVE mg/dL (NEGATIVE) 01/23/19 02:20 Urine Ketones NEGATIVE mg/dL (NEGATIVE) 01/23/19 02:20 Urine Blood NEGATIVE (NEGATIVE) 01/23/19 02:20 Urine Nitrate NEGATIVE (NEGATIVE) 01/23/19 02:20 Urine Bilirubin NEGATIVE (NEGATIVE) 01/23/19 02:20 Urine Urobilinogen 0.2 E.U./dL (0.2 - 1.0) 01/23/19 02:20 Ur Leukocyte Esterase NEGATIVE (NEGATIVE) 01/23/19 02:20 Vancomycin Trough 21.1 ug/mL (5-10) H 02/05/19 08:20 - Physical Exam Vitals and I&O: Vital Signs Temp 98.6 F 02/06/19 20:00 Pulse 63 02/06/19 20:00 Resp 18 02/06/19 20:00 BP 147/78 02/06/19 20:00 Pulse Ox 100 02/06/19 20:00 Intake & Output 02/06/19 02/06/19 02/07/19 06:59 18:59 06:59 Intake Total 1170 730 Output Total 3 Balance 1167 730 Weight (lbs) 50.258 kg 50.258 kg Intake: Intake, IV Amount 250 250 Vancomycin HCl 750 mg In 250 250 Sodium Chloride 0.9% 250 ml @ 165 mls/hr IV Q12HR [facility] Rx#:[id number] Oral 0 Tube Feeding 420 480 Other 500 Output: Urine 3 Other: # Voids 4 3 # Bowel Movements 0 2 Weight Source Bedscale Bedscale Active Medications: Current Medications Acetaminophen (Tylenol) 650 mg GT Q6H PRN PRN Reason: mild pain Stop: 03/24/19 13:09 Last Admin: 02/05/19 10:08 Dose: 650 mg Al Hydrox/Mg Hydrox/Simethicone (Maalox) 30 ml GT Q6HR PRN PRN Reason: Abdominal Pain Stop: 03/24/19 13:09 Last Admin: 02/02/19 19:21 Dose: 30 ml Albuterol Sulfate (Albuterol 2.5mg/3ml Neb Ud) 2.5 mg HHN Q2HR PRN PRN Reason: Shortness of Breath Stop: 03/24/19 13:09 Albuterol Sulfate (Albuterol 2.5mg/3ml Neb Ud) 2.5 mg HHN [id number] [facility] Stop: 03/24/19 14:59 Last Admin: 02/06/19 19:02 Dose: 2.5 mg Ascorbic Acid (Vitamin C) 500 mg GT Q12HR [facility] Stop: 03/24/19 20:59 Last Admin: 02/06/19 21:58 Dose: 500 mg Bisacodyl (Dulcolax 10 Mg Supp) 10 mg RC DAILY PRN PRN Reason: Constipation Stop: 03/24/19 13:09 Budesonide (Pulmicort) 0.5 mg HHN BID [facility] Stop: 03/24/19 16:59 Last Admin: 02/06/19 19:01 Dose: 0.5 mg Carvedilol (Coreg) 6.25 mg GT Q12H [facility] Stop: 03/24/19 13:14 Last Admin: 02/06/19 14:58 Dose: Not Given [place] Oil/[place] Balsam/Trypsin (Venelex) 1 appl TP DAILY [facility] Stop: 03/25/19 08:59 Last Admin: 02/06/19 16:42 Dose: 1 appl Dextrose (Glutose 40%) 18.75 gm PO UD PRN PRN Reason: Blood Glucose less than 70 Stop: 03/24/19 13:09 Docusate Sodium (Colace) 200 mg GT Q12H PRN PRN Reason: Constipation Stop: 03/24/19 13:09 Ferrous Sulfate (Iron) 325 mg PO DAILY [facility] Stop: 03/25/19 08:59 Last Admin: 02/06/19 08:57 Dose: 325 mg Glucagon (Glucagen) 1 mg IM PRN PRN PRN Reason: Blood Glucose less than 70 Stop: 03/24/19 13:09 Dextrose/Sodium Chloride (D5-0.45ns) 1,000 mls @ 50 mls/hr IV .Q20H [facility] Stop: 03/26/19 22:14 Last Admin: 02/06/19 16:41 Dose: 50 mls/hr Vancomycin HCl 750 mg/ Sodium (Chloride) 250 mls @ 165 mls/hr IV Q12HR [facility] Stop: 04/01/19 05:59 Last Admin: 02/06/19 21:58 Dose: 165 mls/hr Insulin Human Lispro (Humalog Insulin Sliding Scale) 0 units SUBQ Q12HR [facility]; Protocol Stop: 03/24/19 20:59 Last Admin: 02/06/19 09:59 Dose: Not Given Lactobacillus Rhamnosus (Culturelle 15b) 1 each PO DAILY [facility] Stop: 03/25/19 08:59 Last Admin: 02/06/19 08:57 Dose: 1 each Magnesium Hydroxide (Milk Of Magnesia) 30 ml GT HS PRN PRN Reason: Constipation Stop: 03/24/19 13:09 Miscellaneous (Probiotic Screen) 1 ea MC PRN PRN PRN Reason: PROTOCOL Stop: 03/25/19 14:19 Pantoprazole Sodium (Protonix) 40 mg IVP DAILY [facility] Stop: 03/25/19 08:59 Last Admin: 02/06/19 08:57 Dose: 40 mg Sodium Phosphate (Fleet Enema) 135 ml RC Q48HR PRN PRN Reason: Constipation Stop: 03/24/19 13:09 Physical Exam: 58 y/o female patient recently had a fall, possible syncope. patient has weakness and dysphagia. General: weak, alert HEENT: NC/AT Neck: + trach Lungs: other (Respiratory failure, stable.) Cardiovascular: RRR, Normal S1 Abdomen: +GT Extremities: clear Neurological: muscle weakness, unsteady - Procedures Procedures: Procedures Procedure Code Date INSERTION OF FEEDING DEVICE INTO STOMACH, PERC APPROACH [id number] 01/02/19 INSERTION OF INFUSION DEVICE INTO R LOW ARM, PERC APPROACH [id number] 01/02/19 INTRODUCTION OF NUTRITIONAL INTO PERIPH VEIN, PERC APPROACH [id number] 01/02/19 RESPIRATORY VENTILATION, LESS THAN 24 CONSECUTIVE HOURS [id number] 04/07/18 Internal Medicine Assmt/Plan - Assessment Assessment: S/p fall. Chronic Respiratory Failure. Pneumonia. Weakness. Hypertension. Diabetes. CAD. Copd. Dyslipidemia. Gerd. S/p trach and PEG. - Plan Plan: Continuation of care Continue present antibiotics and meds as directed Fall precaution. Continue nebulizer treatment and pulmonary support. Aspiration precaution. Supportive care. Discharge planning/awaiting placement. Continue present care management. Nutritional Asmnt/Malnutr-PDOC - Dietary Evaluation Malnutrition Findings (Please click <Entered> for more info): Nutritional Asmnt/Malnutrition Start: 01/24/19 17: 26 Text: Status: Complete Freq: Protocol: Document 01/24/19 17:27 LCHENG (Rec: 01/24/19 17:49 [email or web address]) Nutritional Asmnt/Malnutrition Patient General Information Nutritional Screening High Risk Consult Diagnosis falls and weakness Pertinent Medical Hx/Surgical Hx HTN, DM, CAD, asthma/COPD, dyslipidemia, PUD/GERD, PEG/ Gtube Subjective Information Pt seen resting in bed at time of visit. Spoke with RN yesterday regarding TF regimen . Current Diet Order/ Nutrition Support Jevity 1.2 at 60ml/hr x 20hr Pertinent Medications vitC, colace, iron, heparin, humalog, culturelle Pertinent Labs 01/24 Cr 0.4, Glucose 99, POC 67-83 Nutritional Hx/Data Height 1.63 m Height (Calculated Centimeters) 162.6 Current Weight (lbs) 41.277 kg Weight (Calculated Kilograms) 41.3 Weight (Calculated Grams) 57932.9 [place] Body Weight 120 Body Mass Index (BMI) 15.6 Weight Status Underweight GI Symptoms GI Symptoms None Last BM none Difficult in: None Estimated Nutritional Goals Calories/Kcals/Kg 25-30 IBW 55kg Kcals Calculated 6344-0086 Protein g/k-1.2 Protein Calculated 55-66 Fluid: ml 1265-1485ml (1ml/kcal) Nutritional Problem No current Nutrition Prob Problem N/A Intervention/Recommendation Comments 1. Continue with current TF regimen Jevity 1.2 at 60ml/hr x 20hr. It provides 1440kcal, 67g protein, 968ml free water, meeting 100% of nutritional needs 2. Monitor TF rate, tolerance, wt, skin integrity and labs 3. F/U as low risk in 7 days Expected Outcomes/Goals Expected Outcomes/Goals 1. Pt to meet at least 90% of nutritional needs via nutrition support with tolerance 2. Wt stability, skin to remain intact, labs to approach WNL.
--- NOTE | 2019-02-07 04:20 | Progress Notes ---
DATE: 02/06/2019 SUBJECTIVE: The patient appears to be doing okay, in no distress. OBJECTIVE: VITAL SIGNS: Temperature is 97.0, pulse 74, respirations 20, blood pressure 114/73, saturation is 97%. CHEST: Good breath sounds, no wheezing, no crackles. HEART: Regular rate and rhythm. ABDOMEN: Soft. EXTREMITIES: No edema. IMPRESSION: 1. Respiratory failure. 2. Chronic obstructive pulmonary disease. 3. Weakness. 4. Malnutrition. PLAN: 1. Continue supportive care. 2. Nebulizer treatment. 3. Tracheostomy site care. 4. Pulmicort nebulizer. 5. Discharge planning in progress. JOB# [id number]
[2019-02-07] MEDS: Budesonide 0.5 Mg/2 mL Ud HHN SCH ×2 (07:10→20:00)
[2019-02-07] MEDS: Albuterol Nebulizer 2.5mg/3mL HHN SCH ×4 (07:10→19:59)
[2019-02-07] MEDS: INSULIN LISPRO SLIDING SCALE 100 UNITS/ML UNIT SUBQ SCH ×2 (08:36→22:28)
[2019-02-07] MEDS: Ferrous Sulfate 325 MG TAB PO SCH (10:49)
[2019-02-07] MEDS: Lactobacillus Rhamnosus GG 15 Billion CFU CAP.SPRINK PO SCH (10:49)
[2019-02-07] MEDS: Multivitamin w/ Minerals Tab GT SCH (10:49)
[2019-02-07] MEDS: Venelex 60gm Tube TP SCH (11:06)
--- NOTE | 2019-02-07 14:52 | Internal Medicine Prog Note ---
Internal Medicine Subjective - Subjective Service Date: 02/07/19 Patient seen and examined:: with staff Patient is:: awake, interactive, in bed, confused (oriented x person only) Patient Complaints of:: other (Remains on nebulizer treatment.) Per staff patient has:: no adverse event, no episodes of fall Internal Medicine Objective - Results Result Diagrams: 02/04/19 05:35 02/04/19 05:35 Recent Labs: Laboratory Last Values WBC 3.8 Th/cmm (4.8-10.8) L 02/04/19 05:35 RBC 2.98 Mil/cmm (3.80-5.10) L 02/04/19 05:35 Hgb 9.7 gm/dL (12-16) L 02/04/19 05:35 Hct 28.4 % (41.0-60) L 02/04/19 05:35 MCV 95.5 fl (81-100) 02/04/19 05:35 MCH 32.5 pg (27.0-31.0) H 02/04/19 05:35 MCHC Differential 34.0 pg (28.0-36.0) 02/04/19 05:35 RDW 15.4 % (11.5-20.0) 02/04/19 05:35 Plt Count 248 Th/cmm (150-400) 02/04/19 05:35 MPV 7.6 fl 02/04/19 05:35 Add Manual Diff YES 01/31/19 05:15 Neutrophils % 61.0 % (40.0-80.0) 02/04/19 05:35 Band Neutrophils % 0 % (0-10) 01/31/19 05:15 Lymphocytes % 26.3 % (20.0-50.0) 02/04/19 05:35 Monocytes % 8.7 % (2.0-10.0) 02/04/19 05:35 Eosinophils % 2.9 % (0.0-5.0) 02/04/19 05:35 Basophils % 1.1 % (0.0-2.0) 02/04/19 05:35 Neutrophils (Manual) 73 % (40-80) 01/31/19 05:15 Lymphocytes 21 % (20-50) 01/31/19 05:15 Monocytes 5 % (2-10) 01/31/19 05:15 Eosinophils 1 % (0-5) 01/31/19 05:15 Basophils 0 % (0-3) 01/31/19 05:15 PT 10.1 SECONDS (9.5-11.5) 01/23/19 02:00 INR 0.97 (0.5-1.4) 01/23/19 02:00 Sodium 140 mEq/L (136-145) 02/04/19 05:35 Potassium 3.5 mEq/L (3.5-5.1) 02/04/19 05:35 Chloride 104 mEq/L (98-107) 02/04/19 05:35 Carbon Dioxide 28.3 mEq/L (21.0-31.0) 02/04/19 05:35 Anion Gap 11.2 (7.0-16.0) 02/04/19 05:35 BUN 12 mg/dL (7-25) 02/04/19 05:35 Creatinine 0.4 mg/dL (0.6-1.2) L 02/04/19 05:35 Est GFR ( Amer) > 60.0 ml/min (>90) 02/04/19 05:35 Est GFR (Non-Af Amer) > 60.0 ml/min 02/04/19 05:35 BUN/Creatinine Ratio 30.0 02/04/19 05:35 Glucose 114 mg/dL (70-105) H 02/04/19 05:35 POC Glucose 99 MG/DL (70 - 105) 02/07/19 08:33 Whole Bld Lactic Acid 1.42 mmol/L (0.60-1.99) 01/23/19 02:00 Calcium 8.9 mg/dL (8.6-10.3) 02/04/19 05:35 Total Bilirubin 0.3 mg/dL (0.3-1.0) 01/30/19 05:45 AST 21 U/L (13-39) 01/30/19 05:45 ALT 31 U/L (7-52) 01/30/19 05:45 Alkaline Phosphatase 110 U/L (34-104) H 01/30/19 05:45 Creatine Kinase 36 U/L (30-223) 01/23/19 02:00 Troponin I < 0.01 ng/mL (0.01-0.05) L 01/23/19 02:00 B-Natriuretic Peptide 372.0 pg/mL (5.0-100.0) H 02/04/19 05:35 Total Protein 6.2 gm/dL (6.0-8.3) 01/30/19 05:45 Albumin 2.8 gm/dL (3.7-5.3) L 01/30/19 05:45 Globulin 3.4 gm/dL 01/30/19 05:45 Albumin/Globulin Ratio 0.8 (1.0-1.8) L 01/30/19 05:45 Triglycerides 120 mg/dL (<150) 01/23/19 02:00 Cholesterol 107 mg/dL (<200) 01/23/19 02:00 LDL Cholesterol Direct 66 mg/dL (75-193) L 01/23/19 02:00 HDL Cholesterol 29 mg/dL (23-92) 01/23/19 02:00 Urine Source CATH 01/23/19 02:20 Urine Color YELLOW 01/23/19 02:20 Urine Clarity CLEAR (CLEAR) 01/23/19 02:20 Urine pH 7.0 (4.6 - 8.0) 01/23/19 02:20 Ur Specific [place] 1.010 (1.005-1.030) 01/23/19 02:20 Urine Protein NEGATIVE mg/dL (NEGATIVE) 01/23/19 02:20 Urine Glucose (UA) NEGATIVE mg/dL (NEGATIVE) 01/23/19 02:20 Urine Ketones NEGATIVE mg/dL (NEGATIVE) 01/23/19 02:20 Urine Blood NEGATIVE (NEGATIVE) 01/23/19 02:20 Urine Nitrate NEGATIVE (NEGATIVE) 01/23/19 02:20 Urine Bilirubin NEGATIVE (NEGATIVE) 01/23/19 02:20 Urine Urobilinogen 0.2 E.U./dL (0.2 - 1.0) 01/23/19 02:20 Ur Leukocyte Esterase NEGATIVE (NEGATIVE) 01/23/19 02:20 Vancomycin Trough 21.1 ug/mL (5-10) H 02/05/19 08:20 - Physical Exam Vitals and I&O: Vital Signs Temp 97.6 F 02/07/19 12:12 Pulse 90 02/07/19 14:49 Resp 20 02/07/19 14:49 BP 128/80 02/07/19 14:13 Pulse Ox 98 02/07/19 14:49 Intake & Output 02/06/19 02/07/19 02/07/19 18:59 06:59 18:59 Intake Total 730 1270 Balance 730 1270 Weight (lbs) 50.258 kg 38.329 kg Intake: Intake, IV Amount 250 250 Vancomycin HCl 750 mg In 250 250 Sodium Chloride 0.9% 250 ml @ 165 mls/hr IV Q12HR [facility] Rx#:[id number] Oral 0 Tube Feeding 480 720 Other 300 Other: # Voids 3 3 # Bowel Movements 2 0 Weight Source Bedscale Bedscale Active Medications: Current Medications Acetaminophen (Tylenol) 650 mg GT Q6H PRN PRN Reason: mild pain Stop: 03/24/19 13:09 Last Admin: 02/07/19 04:36 Dose: 650 mg Al Hydrox/Mg Hydrox/Simethicone (Maalox) 30 ml GT Q6HR PRN PRN Reason: Abdominal Pain Stop: 03/24/19 13:09 Last Admin: 02/02/19 19:21 Dose: 30 ml Albuterol Sulfate (Albuterol 2.5mg/3ml Neb Ud) 2.5 mg HHN Q2HR PRN PRN Reason: Shortness of Breath Stop: 03/24/19 13:09 Albuterol Sulfate (Albuterol 2.5mg/3ml Neb Ud) 2.5 mg HHN [id number] [facility] Stop: 03/24/19 14:59 Last Admin: 02/07/19 14:49 Dose: 2.5 mg Ascorbic Acid (Vitamin C) 500 mg GT Q12HR [facility] Stop: 03/24/19 20:59 Last Admin: 02/07/19 10:49 Dose: 500 mg Bisacodyl (Dulcolax 10 Mg Supp) 10 mg RC DAILY PRN PRN Reason: Constipation Stop: 03/24/19 13:09 Budesonide (Pulmicort) 0.5 mg HHN BID [facility] Stop: 03/24/19 16:59 Last Admin: 02/07/19 07:10 Dose: 0.5 mg Carvedilol (Coreg) 6.25 mg GT Q12H [facility] Stop: 03/24/19 13:14 Last Admin: 02/07/19 14:13 Dose: Not Given [place] Oil/[place] Balsam/Trypsin (Venelex) 1 appl TP DAILY [facility] Stop: 03/25/19 08:59 Last Admin: 02/07/19 11:06 Dose: 1 appl Dextrose (Glutose 40%) 18.75 gm PO UD PRN PRN Reason: Blood Glucose less than 70 Stop: 03/24/19 13:09 Docusate Sodium (Colace) 200 mg GT Q12H PRN PRN Reason: Constipation Stop: 03/24/19 13:09 Ferrous Sulfate (Iron) 325 mg PO DAILY [facility] Stop: 03/25/19 08:59 Last Admin: 02/07/19 10:49 Dose: 325 mg Glucagon (Glucagen) 1 mg IM PRN PRN PRN Reason: Blood Glucose less than 70 Stop: 03/24/19 13:09 Dextrose/Sodium Chloride (D5-0.45ns) 1,000 mls @ 50 mls/hr IV .Q20H [facility] Stop: 03/26/19 22:14 Last Admin: 02/06/19 16:41 Dose: 50 mls/hr Vancomycin HCl 1 gm/ Sodium (Chloride) 250 mls @ 165 mls/hr IV Q18H [facility] Stop: 04/08/19 15:59 Insulin Human Lispro (Humalog Insulin Sliding Scale) 0 units SUBQ Q12HR [facility]; Protocol Stop: 03/24/19 20:59 Last Admin: 02/07/19 08:36 Dose: Not Given Lactobacillus Rhamnosus (Culturelle 15b) 1 each PO DAILY [facility] Stop: 03/25/19 08:59 Last Admin: 02/07/19 10:49 Dose: 1 each Magnesium Hydroxide (Milk Of Magnesia) 30 ml GT HS PRN PRN Reason: Constipation Stop: 03/24/19 13:09 Miscellaneous (Probiotic Screen) 1 ea MC PRN PRN PRN Reason: PROTOCOL Stop: 03/25/19 14:19 Pantoprazole Sodium (Protonix) 40 mg IVP DAILY [facility] Stop: 03/25/19 08:59 Last Admin: 02/07/19 10:50 Dose: 40 mg Sodium Phosphate (Fleet Enema) 135 ml RC Q48HR PRN PRN Reason: Constipation Stop: 03/24/19 13:09 Physical Exam: 58 y/o female patient recently had a fall, possible syncope. patient has weakness and dysphagia. General: weak, alert HEENT: NC/AT Neck: + trach Lungs: other (Respiratory failure, stable.) Cardiovascular: RRR, Normal S1 Abdomen: +GT Extremities: clear Neurological: muscle weakness, unsteady - Procedures Procedures: Procedures Procedure Code Date INSERTION OF FEEDING DEVICE INTO STOMACH, PERC APPROACH [id number] 01/02/19 INSERTION OF INFUSION DEVICE INTO R LOW ARM, PERC APPROACH [id number] 01/02/19 INTRODUCTION OF NUTRITIONAL INTO PERIPH VEIN, PERC APPROACH [id number] 01/02/19 RESPIRATORY VENTILATION, LESS THAN 24 CONSECUTIVE HOURS [id number] 04/07/18 Internal Medicine Assmt/Plan - Assessment Assessment: S/p fall. Chronic Respiratory Failure. Pneumonia. Weakness. Hypertension. Diabetes. CAD. Copd. Dyslipidemia. Gerd. S/p trach and PEG. - Plan Plan: Continuation of care Continue present antibiotics and meds as directed Fall precaution. Continue nebulizer treatment and pulmonary support. Aspiration precaution. Supportive care. Discharge planning/awaiting placement. Continue present care management. Nutritional Asmnt/Malnutr-PDOC - Dietary Evaluation Malnutrition Findings (Please click <Entered> for more info): Nutritional Asmnt/Malnutrition Start: 01/24/19 17: 26 Text: Status: Complete Freq: Protocol: Document 01/24/19 17:27 LCHENG (Rec: 01/24/19 17:49 [email or web address]) Nutritional Asmnt/Malnutrition Patient General Information Nutritional Screening High Risk Consult Diagnosis falls and weakness Pertinent Medical Hx/Surgical Hx HTN, DM, CAD, asthma/COPD, dyslipidemia, PUD/GERD, PEG/ Gtube Subjective Information Pt seen resting in bed at time of visit. Spoke with RN yesterday regarding TF regimen . Current Diet Order/ Nutrition Support Jevity 1.2 at 60ml/hr x 20hr Pertinent Medications vitC, colace, iron, heparin, humalog, culturelle Pertinent Labs 01/24 Cr 0.4, Glucose 99, POC 67-83 Nutritional Hx/Data Height 1.63 m Height (Calculated Centimeters) 162.6 Current Weight (lbs) 41.277 kg Weight (Calculated Kilograms) 41.3 Weight (Calculated Grams) 50914.9 [place] Body Weight 120 Body Mass Index (BMI) 15.6 Weight Status Underweight GI Symptoms GI Symptoms None Last BM none Difficult in: None Estimated Nutritional Goals Calories/Kcals/Kg 25-30 IBW 55kg Kcals Calculated 6947-6489 Protein g/k-1.2 Protein Calculated 55-66 Fluid: ml 1265-1485ml (1ml/kcal) Nutritional Problem No current Nutrition Prob Problem N/A Intervention/Recommendation Comments 1. Continue with current TF regimen Jevity 1.2 at 60ml/hr x 20hr. It provides 1440kcal, 67g protein, 968ml free water, meeting 100% of nutritional needs 2. Monitor TF rate, tolerance, wt, skin integrity and labs 3. F/U as low risk in 7 days Expected Outcomes/Goals Expected Outcomes/Goals 1. Pt to meet at least 90% of nutritional needs via nutrition support with tolerance 2. Wt stability, skin to remain intact, labs to approach WNL.
[2019-02-08] MEDS: D5-0.45NS 1,000 ML IV SCH (01:17)
[2019-02-08] MEDS: Budesonide 0.5 Mg/2 mL Ud HHN SCH ×2 (06:40→20:03)
[2019-02-08] MEDS: Albuterol Nebulizer 2.5mg/3mL HHN SCH ×4 (06:40→20:04)
[2019-02-08] MEDS: INSULIN LISPRO SLIDING SCALE 100 UNITS/ML UNIT SUBQ SCH ×2 (08:54→23:42)
[2019-02-08 09:20] LABS: ANION GAP 11.8 (7.0-16.0); BUN - UREA NITROGEN 18 mg/dL (7-25); CARBON DIOXIDE 28.9 mEq/L (21.0-31.0); CHLORIDE 106 mEq/L (98-107); CREATININE - SERUM 0.4 mg/dL (0.6-1.2); GFR AFRICAN-AMERICAN > 60.0 ml/min (>90); GFR NON AFRICAN-AMERICAN > 60.0 ml/min; GLUCOSE 109 mg/dL (70-105); POTASSIUM SERUM 4.7 mEq/L (3.5-5.1); SODIUM SERUM 142 mEq/L (136-145)
[2019-02-08] MEDS: Multivitamin w/ Minerals Tab GT SCH (09:27)
[2019-02-08] MEDS: Ferrous Sulfate 325 MG TAB PO SCH (09:27)
[2019-02-08] MEDS: Lactobacillus Rhamnosus GG 15 Billion CFU CAP.SPRINK PO SCH (09:27)
[2019-02-08] MEDS: Venelex 60gm Tube TP SCH (11:13)
--- NOTE | 2019-02-08 13:21 | Progress Notes ---
DATE: 02/07/2019 PULMONARY PROGRESS NOTE SUBJECTIVE: The patient appears to be doing okay, comfortable, in no distress. OBJECTIVE: VITAL SIGNS: Temperature 98.9, pulse 50 to 90, blood pressure 120/76, saturation 98%. CHEST: Good breath sounds. No wheezing. No crackles. HEART: Regular rate and rhythm. ABDOMEN: Soft. EXTREMITIES: No edema. IMPRESSION: 1. Respiratory failure. 2. Pneumonia. 3. Dysphagia. 4. Chronic obstructive pulmonary disease. 5. Weakness. PLAN: 1. Continue nebulized treatment. 2. Pulmonary toilet. 3. Supportive care, oxygen supplementation and discharge planning in progress. JOB# [id number]
--- NOTE | 2019-02-09 04:00 | Progress Notes ---
DATE: 02/08/2019 SUBJECTIVE: The patient appears to doing okay, in no distress. OBJECTIVE: VITAL SIGNS: Temperature 97.6, pulse 52, respirations 16, blood pressure 148/86, saturation 100%. CHEST: Good breath sounds. No wheezing or crackles. HEART: Regular rate and rhythm. No murmurs. ABDOMEN: Soft. No tenderness. EXTREMITIES: No edema. LABORATORY DATA: Sodium 140, potassium 4.7, BUN is 18, creatinine 0.4. IMPRESSION: 1. Respiratory failure. 2. Status post pneumonia. 3. Chronic obstructive pulmonary disease. 4. Status post tracheostomy. PLAN: 1. Continue supportive care. 2. Nebulizer treatment. 3. Tracheostomy site stoma care and discharge planning in progress. Awaiting placement. JOB# [id number]
[2019-02-09] MEDS: Albuterol Nebulizer 2.5mg/3mL HHN SCH ×4 (06:29→19:15)
[2019-02-09] MEDS: Budesonide 0.5 Mg/2 mL Ud HHN SCH ×2 (06:30→19:15)
[2019-02-09] MEDS: Ferrous Sulfate 325 MG TAB PO SCH (08:29)
[2019-02-09] MEDS: Multivitamin w/ Minerals Tab GT SCH (08:30)
[2019-02-09] MEDS: Lactobacillus Rhamnosus GG 15 Billion CFU CAP.SPRINK PO SCH (08:30)
[2019-02-09] MEDS: Venelex 60gm Tube TP SCH (08:30)
[2019-02-09] MEDS: INSULIN LISPRO SLIDING SCALE 100 UNITS/ML UNIT SUBQ SCH ×2 (09:53→21:00)
--- NOTE | 2019-02-09 11:50 | Internal Medicine Prog Note ---
Internal Medicine Subjective - Subjective Patient seen and examined:: chart reviewed Patient is:: awake, in bed, confused (patient doing okay, in no distress) Patient Complaints of:: other (Remains on nebulizer treatment.) Per staff patient has:: no adverse event, no episodes of fall Internal Medicine Objective - Results Result Diagrams: 02/04/19 05:35 02/08/19 08:53 Recent Labs: Laboratory Last Values WBC 3.8 Th/cmm (4.8-10.8) L 02/04/19 05:35 RBC 2.98 Mil/cmm (3.80-5.10) L 02/04/19 05:35 Hgb 9.7 gm/dL (12-16) L 02/04/19 05:35 Hct 28.4 % (41.0-60) L 02/04/19 05:35 MCV 95.5 fl (81-100) 02/04/19 05:35 MCH 32.5 pg (27.0-31.0) H 02/04/19 05:35 MCHC Differential 34.0 pg (28.0-36.0) 02/04/19 05:35 RDW 15.4 % (11.5-20.0) 02/04/19 05:35 Plt Count 248 Th/cmm (150-400) 02/04/19 05:35 MPV 7.6 fl 02/04/19 05:35 Add Manual Diff YES 01/31/19 05:15 Neutrophils % 61.0 % (40.0-80.0) 02/04/19 05:35 Band Neutrophils % 0 % (0-10) 01/31/19 05:15 Lymphocytes % 26.3 % (20.0-50.0) 02/04/19 05:35 Monocytes % 8.7 % (2.0-10.0) 02/04/19 05:35 Eosinophils % 2.9 % (0.0-5.0) 02/04/19 05:35 Basophils % 1.1 % (0.0-2.0) 02/04/19 05:35 Neutrophils (Manual) 73 % (40-80) 01/31/19 05:15 Lymphocytes 21 % (20-50) 01/31/19 05:15 Monocytes 5 % (2-10) 01/31/19 05:15 Eosinophils 1 % (0-5) 01/31/19 05:15 Basophils 0 % (0-3) 01/31/19 05:15 PT 10.1 SECONDS (9.5-11.5) 01/23/19 02:00 INR 0.97 (0.5-1.4) 01/23/19 02:00 Sodium 142 mEq/L (136-145) 02/08/19 08:53 Potassium 4.7 mEq/L (3.5-5.1) 02/08/19 08:53 Chloride 106 mEq/L (98-107) 02/08/19 08:53 Carbon Dioxide 28.9 mEq/L (21.0-31.0) 02/08/19 08:53 Anion Gap 11.8 (7.0-16.0) 02/08/19 08:53 BUN 18 mg/dL (7-25) 02/08/19 08:53 Creatinine 0.4 mg/dL (0.6-1.2) L 02/08/19 08:53 Est GFR ( Amer) > 60.0 ml/min (>90) 02/08/19 08:53 Est GFR (Non-Af Amer) > 60.0 ml/min 02/08/19 08:53 BUN/Creatinine Ratio 45.0 02/08/19 08:53 Glucose 109 mg/dL (70-105) H 02/08/19 08:53 POC Glucose 69 MG/DL (70 - 105) L 02/09/19 11:09 Whole Bld Lactic Acid 1.42 mmol/L (0.60-1.99) 01/23/19 02:00 Calcium 9.0 mg/dL (8.6-10.3) 02/08/19 08:53 Total Bilirubin 0.3 mg/dL (0.3-1.0) 01/30/19 05:45 AST 21 U/L (13-39) 01/30/19 05:45 ALT 31 U/L (7-52) 01/30/19 05:45 Alkaline Phosphatase 110 U/L (34-104) H 01/30/19 05:45 Creatine Kinase 36 U/L (30-223) 01/23/19 02:00 Troponin I < 0.01 ng/mL (0.01-0.05) L 01/23/19 02:00 B-Natriuretic Peptide 372.0 pg/mL (5.0-100.0) H 02/04/19 05:35 Total Protein 6.2 gm/dL (6.0-8.3) 01/30/19 05:45 Albumin 2.8 gm/dL (3.7-5.3) L 01/30/19 05:45 Globulin 3.4 gm/dL 01/30/19 05:45 Albumin/Globulin Ratio 0.8 (1.0-1.8) L 01/30/19 05:45 Triglycerides 120 mg/dL (<150) 01/23/19 02:00 Cholesterol 107 mg/dL (<200) 01/23/19 02:00 LDL Cholesterol Direct 66 mg/dL (75-193) L 01/23/19 02:00 HDL Cholesterol 29 mg/dL (23-92) 01/23/19 02:00 Urine Source CATH 01/23/19 02:20 Urine Color YELLOW 01/23/19 02:20 Urine Clarity CLEAR (CLEAR) 01/23/19 02:20 Urine pH 7.0 (4.6 - 8.0) 01/23/19 02:20 Ur Specific [place] 1.010 (1.005-1.030) 01/23/19 02:20 Urine Protein NEGATIVE mg/dL (NEGATIVE) 01/23/19 02:20 Urine Glucose (UA) NEGATIVE mg/dL (NEGATIVE) 01/23/19 02:20 Urine Ketones NEGATIVE mg/dL (NEGATIVE) 01/23/19 02:20 Urine Blood NEGATIVE (NEGATIVE) 01/23/19 02:20 Urine Nitrate NEGATIVE (NEGATIVE) 01/23/19 02:20 Urine Bilirubin NEGATIVE (NEGATIVE) 01/23/19 02:20 Urine Urobilinogen 0.2 E.U./dL (0.2 - 1.0) 01/23/19 02:20 Ur Leukocyte Esterase NEGATIVE (NEGATIVE) 01/23/19 02:20 Vancomycin Trough 19.5 ug/mL (5-10) H 02/08/19 08:53 - Physical Exam Vitals and I&O: Vital Signs Temp 97.6 F 02/09/19 08:00 Pulse 59 02/09/19 10:35 Resp 20 02/09/19 10:35 BP 164/99 02/09/19 08:00 Pulse Ox 97 02/09/19 10:35 Intake & Output 02/08/19 02/09/19 02/09/19 18:59 06:59 18:59 Intake Total 460 495 Balance 460 495 Weight (lbs) 41.322 kg 41.322 kg Intake: Intake, IV Amount 250 Vancomycin HCl 1 gm In 250 Sodium Chloride 0.9% 250 ml @ 165 mls/hr IV Q18H [facility] Rx#:[id number] Tube Feeding 210 420 Other 75 Other: # Voids 2 1 # Bowel Movements 1 0 Weight Source Bedscale Bedscale Active Medications: Current Medications Acetaminophen (Tylenol) 650 mg GT Q6H PRN PRN Reason: mild pain Stop: 03/24/19 13:09 Last Admin: 02/07/19 22:07 Dose: 650 mg Al Hydrox/Mg Hydrox/Simethicone (Maalox) 30 ml GT Q6HR PRN PRN Reason: Abdominal Pain Stop: 03/24/19 13:09 Last Admin: 02/02/19 19:21 Dose: 30 ml Albuterol Sulfate (Albuterol 2.5mg/3ml Neb Ud) 2.5 mg HHN Q2HR PRN PRN Reason: Shortness of Breath Stop: 03/24/19 13:09 Albuterol Sulfate (Albuterol 2.5mg/3ml Neb Ud) 2.5 mg HHN [id number] [facility] Stop: 03/24/19 14:59 Last Admin: 02/09/19 10:33 Dose: 2.5 mg Ascorbic Acid (Vitamin C) 500 mg GT Q12HR [facility] Stop: 03/24/19 20:59 Last Admin: 02/09/19 08:29 Dose: 500 mg Bisacodyl (Dulcolax 10 Mg Supp) 10 mg RC DAILY PRN PRN Reason: Constipation Stop: 03/24/19 13:09 Budesonide (Pulmicort) 0.5 mg HHN BID [facility] Stop: 03/24/19 16:59 Last Admin: 02/09/19 06:30 Dose: 0.5 mg Carvedilol (Coreg) 6.25 mg GT Q12H [facility] Stop: 03/24/19 13:14 Last Admin: 02/09/19 04:57 Dose: Not Given [place] Oil/[place] Balsam/Trypsin (Venelex) 1 appl TP DAILY [facility] Stop: 03/25/19 08:59 Last Admin: 02/09/19 08:30 Dose: 1 appl Dextrose (Glutose 40%) 18.75 gm PO UD PRN PRN Reason: Blood Glucose less than 70 Stop: 03/24/19 13:09 Last Admin: 02/09/19 09:44 Dose: 18.75 gm Docusate Sodium (Colace) 200 mg GT Q12H PRN PRN Reason: Constipation Stop: 03/24/19 13:09 Last Admin: 02/07/19 22:29 Dose: 200 mg Ferrous Sulfate (Iron) 325 mg PO DAILY [facility] Stop: 03/25/19 08:59 Last Admin: 02/09/19 08:29 Dose: 325 mg Glucagon (Glucagen) 1 mg IM PRN PRN PRN Reason: Blood Glucose less than 70 Stop: 03/24/19 13:09 Heparin Sodium (Porcine) (Heparin) 5,000 units SUBQ Q12HR [facility] Stop: 04/08/19 20:59 Last Admin: 02/09/19 08:30 Dose: 5,000 units Dextrose/Sodium Chloride (D5-0.45ns) 1,000 mls @ 50 mls/hr IV .Q20H [facility] Stop: 03/26/19 22:14 Last Admin: 02/08/19 01:17 Dose: 50 mls/hr Vancomycin HCl 1 gm/ Sodium (Chloride) 250 mls @ 165 mls/hr IV Q18H [facility] Stop: 04/08/19 15:59 Last Admin: 02/09/19 05:11 Dose: 165 mls/hr Insulin Human Lispro (Humalog Insulin Sliding Scale) 0 units SUBQ Q12HR [facility]; Protocol Stop: 03/24/19 20:59 Last Admin: 02/09/19 09:53 Dose: Not Given Lactobacillus Rhamnosus (Culturelle 15b) 1 each PO DAILY [facility] Stop: 03/25/19 08:59 Last Admin: 02/09/19 08:30 Dose: 1 each Lorazepam (Ativan) 1 mg GT Q6HR PRN; Protocol PRN Reason: Anxiety Stop: 04/08/19 19:37 Last Admin: 02/09/19 05:11 Dose: 1 mg Magnesium Hydroxide (Milk Of Magnesia) 30 ml GT HS PRN PRN Reason: Constipation Stop: 03/24/19 13:09 Miscellaneous (Probiotic Screen) 1 ea MC PRN PRN PRN Reason: PROTOCOL Stop: 03/25/19 14:19 Pantoprazole Sodium (Protonix) 40 mg IVP DAILY [facility] Stop: 03/25/19 08:59 Last Admin: 02/09/19 08:30 Dose: 40 mg Sodium Phosphate (Fleet Enema) 135 ml RC Q48HR PRN PRN Reason: Constipation Stop: 03/24/19 13:09 Physical Exam: 58 y/o female patient recently had a fall, possible syncope. patient has weakness and dysphagia. General: weak, alert HEENT: NC/AT Neck: + trach Lungs: other (Respiratory failure, stable.) Cardiovascular: RRR, Normal S1 Abdomen: +GT Extremities: clear Neurological: muscle weakness, unsteady - Procedures Procedures: Procedures Procedure Code Date INSERTION OF FEEDING DEVICE INTO STOMACH, PERC APPROACH [id number] 01/02/19 INSERTION OF INFUSION DEVICE INTO R LOW ARM, PERC APPROACH [id number] 01/02/19 INTRODUCTION OF NUTRITIONAL INTO PERIPH VEIN, PERC APPROACH [id number] 01/02/19 RESPIRATORY VENTILATION, LESS THAN 24 CONSECUTIVE HOURS [id number] 04/07/18 Internal Medicine Assmt/Plan - Assessment Assessment: S/p fall. Chronic Respiratory Failure. Pneumonia. Weakness. Hypertension. Diabetes. CAD. Copd. Dyslipidemia. Gerd. S/p trach and PEG. - Plan Plan: CPM Fall precaution. Continue nebulizer treatment and pulmonary support. Aspiration precaution. Supportive care. Discharge planning/awaiting placement. Continue present care management. Nutritional Asmnt/Malnutr-PDOC - Dietary Evaluation Malnutrition Findings (Please click <Entered> for more info): Nutritional Asmnt/Malnutrition Start: 01/24/19 17: 26 Text: Status: Complete Freq: Protocol: Document 01/24/19 17:27 LCHENG (Rec: 01/24/19 17:49 [email or web address]) Nutritional Asmnt/Malnutrition Patient General Information Nutritional Screening High Risk Consult Diagnosis falls and weakness Pertinent Medical Hx/Surgical Hx HTN, DM, CAD, asthma/COPD, dyslipidemia, PUD/GERD, PEG/ Gtube Subjective Information Pt seen resting in bed at time of visit. Spoke with RN yesterday regarding TF regimen . Current Diet Order/ Nutrition Support Jevity 1.2 at 60ml/hr x 20hr Pertinent Medications vitC, colace, iron, heparin, humalog, culturelle Pertinent Labs 01/24 Cr 0.4, Glucose 99, POC 67-83 Nutritional Hx/Data Height 1.63 m Height (Calculated Centimeters) 162.6 Current Weight (lbs) 41.277 kg Weight (Calculated Kilograms) 41.3 Weight (Calculated Grams) 64956.9 [place] Body Weight 120 Body Mass Index (BMI) 15.6 Weight Status Underweight GI Symptoms GI Symptoms None Last BM none Difficult in: None Estimated Nutritional Goals Calories/Kcals/Kg 25-30 IBW 55kg Kcals Calculated 9546-8552 Protein g/k-1.2 Protein Calculated 55-66 Fluid: ml 1265-1485ml (1ml/kcal) Nutritional Problem No current Nutrition Prob Problem N/A Intervention/Recommendation Comments 1. Continue with current TF regimen Jevity 1.2 at 60ml/hr x 20hr. It provides 1440kcal, 67g protein, 968ml free water, meeting 100% of nutritional needs 2. Monitor TF rate, tolerance, wt, skin integrity and labs 3. F/U as low risk in 7 days Expected Outcomes/Goals Expected Outcomes/Goals 1. Pt to meet at least 90% of nutritional needs via nutrition support with tolerance 2. Wt stability, skin to remain intact, labs to approach WNL.
--- NOTE | 2019-02-09 19:17 | Infectious Disease Prog Note ---
Infectious Disease Subjective - Review of Systems Service Date: 02/09/19 Subjective: There is no new change, no fever. MRI was not done as patient was very agitated at the [facility]. Infectious Disease Objective - Results Result Diagrams: 02/04/19 05:35 02/08/19 08:53 Recent Labs: Laboratory Last Values WBC 3.8 Th/cmm (4.8-10.8) L 02/04/19 05:35 RBC 2.98 Mil/cmm (3.80-5.10) L 02/04/19 05:35 Hgb 9.7 gm/dL (12-16) L 02/04/19 05:35 Hct 28.4 % (41.0-60) L 02/04/19 05:35 MCV 95.5 fl (81-100) 02/04/19 05:35 MCH 32.5 pg (27.0-31.0) H 02/04/19 05:35 MCHC Differential 34.0 pg (28.0-36.0) 02/04/19 05:35 RDW 15.4 % (11.5-20.0) 02/04/19 05:35 Plt Count 248 Th/cmm (150-400) 02/04/19 05:35 MPV 7.6 fl 02/04/19 05:35 Add Manual Diff YES 01/31/19 05:15 Neutrophils % 61.0 % (40.0-80.0) 02/04/19 05:35 Band Neutrophils % 0 % (0-10) 01/31/19 05:15 Lymphocytes % 26.3 % (20.0-50.0) 02/04/19 05:35 Monocytes % 8.7 % (2.0-10.0) 02/04/19 05:35 Eosinophils % 2.9 % (0.0-5.0) 02/04/19 05:35 Basophils % 1.1 % (0.0-2.0) 02/04/19 05:35 Neutrophils (Manual) 73 % (40-80) 01/31/19 05:15 Lymphocytes 21 % (20-50) 01/31/19 05:15 Monocytes 5 % (2-10) 01/31/19 05:15 Eosinophils 1 % (0-5) 01/31/19 05:15 Basophils 0 % (0-3) 01/31/19 05:15 PT 10.1 SECONDS (9.5-11.5) 01/23/19 02:00 INR 0.97 (0.5-1.4) 01/23/19 02:00 Sodium 142 mEq/L (136-145) 02/08/19 08:53 Potassium 4.7 mEq/L (3.5-5.1) 02/08/19 08:53 Chloride 106 mEq/L (98-107) 02/08/19 08:53 Carbon Dioxide 28.9 mEq/L (21.0-31.0) 02/08/19 08:53 Anion Gap 11.8 (7.0-16.0) 02/08/19 08:53 BUN 18 mg/dL (7-25) 02/08/19 08:53 Creatinine 0.4 mg/dL (0.6-1.2) L 02/08/19 08:53 Est GFR ( Amer) > 60.0 ml/min (>90) 02/08/19 08:53 Est GFR (Non-Af Amer) > 60.0 ml/min 02/08/19 08:53 BUN/Creatinine Ratio 45.0 02/08/19 08:53 Glucose 109 mg/dL (70-105) H 02/08/19 08:53 POC Glucose 69 MG/DL (70 - 105) L 02/09/19 11:09 Whole Bld Lactic Acid 1.42 mmol/L (0.60-1.99) 01/23/19 02:00 Calcium 9.0 mg/dL (8.6-10.3) 02/08/19 08:53 Total Bilirubin 0.3 mg/dL (0.3-1.0) 01/30/19 05:45 AST 21 U/L (13-39) 01/30/19 05:45 ALT 31 U/L (7-52) 01/30/19 05:45 Alkaline Phosphatase 110 U/L (34-104) H 01/30/19 05:45 Creatine Kinase 36 U/L (30-223) 01/23/19 02:00 Troponin I < 0.01 ng/mL (0.01-0.05) L 01/23/19 02:00 B-Natriuretic Peptide 372.0 pg/mL (5.0-100.0) H 02/04/19 05:35 Total Protein 6.2 gm/dL (6.0-8.3) 01/30/19 05:45 Albumin 2.8 gm/dL (3.7-5.3) L 01/30/19 05:45 Globulin 3.4 gm/dL 01/30/19 05:45 Albumin/Globulin Ratio 0.8 (1.0-1.8) L 01/30/19 05:45 Triglycerides 120 mg/dL (<150) 01/23/19 02:00 Cholesterol 107 mg/dL (<200) 01/23/19 02:00 LDL Cholesterol Direct 66 mg/dL (75-193) L 01/23/19 02:00 HDL Cholesterol 29 mg/dL (23-92) 01/23/19 02:00 Urine Source CATH 01/23/19 02:20 Urine Color YELLOW 01/23/19 02:20 Urine Clarity CLEAR (CLEAR) 01/23/19 02:20 Urine pH 7.0 (4.6 - 8.0) 01/23/19 02:20 Ur Specific [place] 1.010 (1.005-1.030) 01/23/19 02:20 Urine Protein NEGATIVE mg/dL (NEGATIVE) 01/23/19 02:20 Urine Glucose (UA) NEGATIVE mg/dL (NEGATIVE) 01/23/19 02:20 Urine Ketones NEGATIVE mg/dL (NEGATIVE) 01/23/19 02:20 Urine Blood NEGATIVE (NEGATIVE) 01/23/19 02:20 Urine Nitrate NEGATIVE (NEGATIVE) 01/23/19 02:20 Urine Bilirubin NEGATIVE (NEGATIVE) 01/23/19 02:20 Urine Urobilinogen 0.2 E.U./dL (0.2 - 1.0) 01/23/19 02:20 Ur Leukocyte Esterase NEGATIVE (NEGATIVE) 01/23/19 02:20 Vancomycin Trough 19.5 ug/mL (5-10) H 02/08/19 08:53 - Physical Exam Vitals and I&O: Vital Signs Temp 97.4 F 02/09/19 17:02 Pulse 60 02/09/19 17:02 Resp 20 02/09/19 17:02 BP 151/81 02/09/19 17:02 Pulse Ox 98 02/09/19 16:00 Intake & Output 02/09/19 02/09/19 02/10/19 06:59 18:59 06:59 Intake Total 495 Balance 495 Weight (lbs) 41.322 kg 41.322 kg Intake: Tube Feeding 420 Other 75 Other: # Voids 1 2 # Bowel Movements 0 1 Weight Source Bedscale Bedscale Active Medications: Current Medications Acetaminophen (Tylenol) 650 mg GT Q6H PRN PRN Reason: mild pain Stop: 03/24/19 13:09 Last Admin: 02/07/19 22:07 Dose: 650 mg Al Hydrox/Mg Hydrox/Simethicone (Maalox) 30 ml GT Q6HR PRN PRN Reason: Abdominal Pain Stop: 03/24/19 13:09 Last Admin: 02/02/19 19:21 Dose: 30 ml Albuterol Sulfate (Albuterol 2.5mg/3ml Neb Ud) 2.5 mg HHN Q2HR PRN PRN Reason: Shortness of Breath Stop: 03/24/19 13:09 Albuterol Sulfate (Albuterol 2.5mg/3ml Neb Ud) 2.5 mg HHN [id number] [facility] Stop: 03/24/19 14:59 Last Admin: 02/09/19 19:15 Dose: 2.5 mg Ascorbic Acid (Vitamin C) 500 mg GT Q12HR [facility] Stop: 03/24/19 20:59 Last Admin: 02/09/19 08:29 Dose: 500 mg Bisacodyl (Dulcolax 10 Mg Supp) 10 mg RC DAILY PRN PRN Reason: Constipation Stop: 03/24/19 13:09 Budesonide (Pulmicort) 0.5 mg HHN BID [facility] Stop: 03/24/19 16:59 Last Admin: 02/09/19 19:15 Dose: 0.5 mg Carvedilol (Coreg) 6.25 mg GT Q12H [facility] Stop: 03/24/19 13:14 Last Admin: 02/09/19 13:03 Dose: Not Given [place] Oil/[place] Balsam/Trypsin (Venelex) 1 appl TP DAILY [facility] Stop: 03/25/19 08:59 Last Admin: 02/09/19 08:30 Dose: 1 appl Dextrose (Glutose 40%) 18.75 gm PO UD PRN PRN Reason: Blood Glucose less than 70 Stop: 03/24/19 13:09 Last Admin: 02/09/19 09:44 Dose: 18.75 gm Docusate Sodium (Colace) 200 mg GT Q12H PRN PRN Reason: Constipation Stop: 03/24/19 13:09 Last Admin: 02/07/19 22:29 Dose: 200 mg Ferrous Sulfate (Iron) 325 mg PO DAILY [facility] Stop: 03/25/19 08:59 Last Admin: 02/09/19 08:29 Dose: 325 mg Glucagon (Glucagen) 1 mg IM PRN PRN PRN Reason: Blood Glucose less than 70 Stop: 03/24/19 13:09 Heparin Sodium (Porcine) (Heparin) 5,000 units SUBQ Q12HR [facility] Stop: 04/08/19 20:59 Last Admin: 02/09/19 08:30 Dose: 5,000 units Dextrose/Sodium Chloride (D5-0.45ns) 1,000 mls @ 50 mls/hr IV .Q20H [facility] Stop: 03/26/19 22:14 Last Admin: 02/08/19 01:17 Dose: 50 mls/hr Vancomycin HCl 1 gm/ Sodium (Chloride) 250 mls @ 165 mls/hr IV Q18H [facility] Stop: 04/08/19 15:59 Last Admin: 02/09/19 05:11 Dose: 165 mls/hr Insulin Human Lispro (Humalog Insulin Sliding Scale) 0 units SUBQ Q12HR [facility]; Protocol Stop: 03/24/19 20:59 Last Admin: 02/09/19 09:53 Dose: Not Given Lactobacillus Rhamnosus (Culturelle 15b) 1 each PO DAILY [facility] Stop: 03/25/19 08:59 Last Admin: 02/09/19 08:30 Dose: 1 each Lorazepam (Ativan) 1 mg GT Q6HR PRN; Protocol PRN Reason: Anxiety Stop: 04/08/19 19:37 Last Admin: 02/09/19 05:11 Dose: 1 mg Magnesium Hydroxide (Milk Of Magnesia) 30 ml GT HS PRN PRN Reason: Constipation Stop: 03/24/19 13:09 Miscellaneous (Probiotic Screen) 1 ea MC PRN PRN PRN Reason: PROTOCOL Stop: 03/25/19 14:19 Pantoprazole Sodium (Protonix) 40 mg IVP DAILY [facility] Stop: 03/25/19 08:59 Last Admin: 02/09/19 08:30 Dose: 40 mg Sodium Phosphate (Fleet Enema) 135 ml RC Q48HR PRN PRN Reason: Constipation Stop: 03/24/19 13:09 General: no acute distress, cachectic HEENT: atraumatic, normocephalic, PERRLA, EOMI Neck: supple, no thyromegaly Cardiovascular: S1S2, regular Lungs: clear to auscultation bilaterally, clear to percussion Abdomen: soft, no tender, no distended, no mass, no rebound, no guarding Extremities: no cyanosis, no clubbing, no edema Neurological: other (Confuused.) - Procedures Procedures: Procedures Procedure Code Date INSERTION OF FEEDING DEVICE INTO STOMACH, PERC APPROACH [id number] 01/02/19 INSERTION OF INFUSION DEVICE INTO R LOW ARM, PERC APPROACH [id number] 01/02/19 INTRODUCTION OF NUTRITIONAL INTO PERIPH VEIN, PERC APPROACH [id number] 01/02/19 RESPIRATORY VENTILATION, LESS THAN 24 CONSECUTIVE HOURS [id number] 04/07/18 Infectious Disease Assmt/Plan - Assessment Assessment: 1. MRSA sepsis. treated 2. discitis/osteomyelitis of lumbar spine. 3. Dementia. 4. Dysphagia requiring G-tube placement, but she has pulled out G-tube 3 times already. 5. Dementia. 6. Protein-calorie malnutrition and failure to thrive. 7. Psychosis. 8. Chronic obstructive pulmonary disease. 9. Leukopenia. - Plan Plan: Continue vanco iv for 6 to 8 weeks with trough level 12 - 20. Nutritional Asmnt/Malnutr-PDOC - Dietary Evaluation Malnutrition Findings (Please click <Entered> for more info): Nutritional Asmnt/Malnutrition Start: 01/24/19 17: 26 Text: Status: Complete Freq: Protocol: Document 01/24/19 17:27 LCHENG (Rec: 01/24/19 17:49 [email or web address]) Nutritional Asmnt/Malnutrition Patient General Information Nutritional Screening High Risk Consult Diagnosis falls and weakness Pertinent Medical Hx/Surgical Hx HTN, DM, CAD, asthma/COPD, dyslipidemia, PUD/GERD, PEG/ Gtube Subjective Information Pt seen resting in bed at time of visit. Spoke with RN yesterday regarding TF regimen . Current Diet Order/ Nutrition Support Jevity 1.2 at 60ml/hr x 20hr Pertinent Medications vitC, colace, iron, heparin, humalog, culturelle Pertinent Labs 01/24 Cr 0.4, Glucose 99, POC 67-83 Nutritional Hx/Data Height 1.63 m Height (Calculated Centimeters) 162.6 Current Weight (lbs) 41.277 kg Weight (Calculated Kilograms) 41.3 Weight (Calculated Grams) 58668.9 [place] Body Weight 120 Body Mass Index (BMI) 15.6 Weight Status Underweight GI Symptoms GI Symptoms None Last BM none Difficult in: None Estimated Nutritional Goals Calories/Kcals/Kg 25-30 IBW 55kg Kcals Calculated 7613-5331 Protein g/k-1.2 Protein Calculated 55-66 Fluid: ml 1265-1485ml (1ml/kcal) Nutritional Problem No current Nutrition Prob Problem N/A Intervention/Recommendation Comments 1. Continue with current TF regimen Jevity 1.2 at 60ml/hr x 20hr. It provides 1440kcal, 67g protein, 968ml free water, meeting 100% of nutritional needs 2. Monitor TF rate, tolerance, wt, skin integrity and labs 3. F/U as low risk in 7 days Expected Outcomes/Goals Expected Outcomes/Goals 1. Pt to meet at least 90% of nutritional needs via nutrition support with tolerance 2. Wt stability, skin to remain intact, labs to approach WNL.
[2019-02-10] MEDS: Albuterol Nebulizer 2.5mg/3mL HHN SCH ×4 (07:14→19:18)
[2019-02-10] MEDS: Budesonide 0.5 Mg/2 mL Ud HHN SCH ×2 (07:24→19:18)
[2019-02-10] MEDS: Multivitamin w/ Minerals Tab GT SCH (09:47)
[2019-02-10] MEDS: Lactobacillus Rhamnosus GG 15 Billion CFU CAP.SPRINK PO SCH (09:48)
[2019-02-10] MEDS: Ferrous Sulfate 325 MG TAB PO SCH (09:48)
--- NOTE | 2019-02-10 10:55 | Internal Medicine Prog Note ---
Internal Medicine Subjective - Subjective Service Date: 02/10/19 Patient seen and examined:: with staff Patient is:: awake, in bed, confused (Easily agitated.) Patient Complaints of:: other (Remains on nebulizer treatment.) Per staff patient has:: no adverse event, no episodes of fall Internal Medicine Objective - Results Result Diagrams: 02/04/19 05:35 02/08/19 08:53 Recent Labs: Laboratory Last Values WBC 3.8 Th/cmm (4.8-10.8) L 02/04/19 05:35 RBC 2.98 Mil/cmm (3.80-5.10) L 02/04/19 05:35 Hgb 9.7 gm/dL (12-16) L 02/04/19 05:35 Hct 28.4 % (41.0-60) L 02/04/19 05:35 MCV 95.5 fl (81-100) 02/04/19 05:35 MCH 32.5 pg (27.0-31.0) H 02/04/19 05:35 MCHC Differential 34.0 pg (28.0-36.0) 02/04/19 05:35 RDW 15.4 % (11.5-20.0) 02/04/19 05:35 Plt Count 248 Th/cmm (150-400) 02/04/19 05:35 MPV 7.6 fl 02/04/19 05:35 Add Manual Diff YES 01/31/19 05:15 Neutrophils % 61.0 % (40.0-80.0) 02/04/19 05:35 Band Neutrophils % 0 % (0-10) 01/31/19 05:15 Lymphocytes % 26.3 % (20.0-50.0) 02/04/19 05:35 Monocytes % 8.7 % (2.0-10.0) 02/04/19 05:35 Eosinophils % 2.9 % (0.0-5.0) 02/04/19 05:35 Basophils % 1.1 % (0.0-2.0) 02/04/19 05:35 Neutrophils (Manual) 73 % (40-80) 01/31/19 05:15 Lymphocytes 21 % (20-50) 01/31/19 05:15 Monocytes 5 % (2-10) 01/31/19 05:15 Eosinophils 1 % (0-5) 01/31/19 05:15 Basophils 0 % (0-3) 01/31/19 05:15 PT 10.1 SECONDS (9.5-11.5) 01/23/19 02:00 INR 0.97 (0.5-1.4) 01/23/19 02:00 Sodium 142 mEq/L (136-145) 02/08/19 08:53 Potassium 4.7 mEq/L (3.5-5.1) 02/08/19 08:53 Chloride 106 mEq/L (98-107) 02/08/19 08:53 Carbon Dioxide 28.9 mEq/L (21.0-31.0) 02/08/19 08:53 Anion Gap 11.8 (7.0-16.0) 02/08/19 08:53 BUN 18 mg/dL (7-25) 02/08/19 08:53 Creatinine 0.4 mg/dL (0.6-1.2) L 02/08/19 08:53 Est GFR ( Amer) > 60.0 ml/min (>90) 02/08/19 08:53 Est GFR (Non-Af Amer) > 60.0 ml/min 02/08/19 08:53 BUN/Creatinine Ratio 45.0 02/08/19 08:53 Glucose 109 mg/dL (70-105) H 02/08/19 08:53 POC Glucose 69 MG/DL (70 - 105) L 02/09/19 11:09 Whole Bld Lactic Acid 1.42 mmol/L (0.60-1.99) 01/23/19 02:00 Calcium 9.0 mg/dL (8.6-10.3) 02/08/19 08:53 Total Bilirubin 0.3 mg/dL (0.3-1.0) 01/30/19 05:45 AST 21 U/L (13-39) 01/30/19 05:45 ALT 31 U/L (7-52) 01/30/19 05:45 Alkaline Phosphatase 110 U/L (34-104) H 01/30/19 05:45 Creatine Kinase 36 U/L (30-223) 01/23/19 02:00 Troponin I < 0.01 ng/mL (0.01-0.05) L 01/23/19 02:00 B-Natriuretic Peptide 372.0 pg/mL (5.0-100.0) H 02/04/19 05:35 Total Protein 6.2 gm/dL (6.0-8.3) 01/30/19 05:45 Albumin 2.8 gm/dL (3.7-5.3) L 01/30/19 05:45 Globulin 3.4 gm/dL 01/30/19 05:45 Albumin/Globulin Ratio 0.8 (1.0-1.8) L 01/30/19 05:45 Triglycerides 120 mg/dL (<150) 01/23/19 02:00 Cholesterol 107 mg/dL (<200) 01/23/19 02:00 LDL Cholesterol Direct 66 mg/dL (75-193) L 01/23/19 02:00 HDL Cholesterol 29 mg/dL (23-92) 01/23/19 02:00 Urine Source CATH 01/23/19 02:20 Urine Color YELLOW 01/23/19 02:20 Urine Clarity CLEAR (CLEAR) 01/23/19 02:20 Urine pH 7.0 (4.6 - 8.0) 01/23/19 02:20 Ur Specific [place] 1.010 (1.005-1.030) 01/23/19 02:20 Urine Protein NEGATIVE mg/dL (NEGATIVE) 01/23/19 02:20 Urine Glucose (UA) NEGATIVE mg/dL (NEGATIVE) 01/23/19 02:20 Urine Ketones NEGATIVE mg/dL (NEGATIVE) 01/23/19 02:20 Urine Blood NEGATIVE (NEGATIVE) 01/23/19 02:20 Urine Nitrate NEGATIVE (NEGATIVE) 01/23/19 02:20 Urine Bilirubin NEGATIVE (NEGATIVE) 01/23/19 02:20 Urine Urobilinogen 0.2 E.U./dL (0.2 - 1.0) 01/23/19 02:20 Ur Leukocyte Esterase NEGATIVE (NEGATIVE) 01/23/19 02:20 Vancomycin Trough 19.5 ug/mL (5-10) H 02/08/19 08:53 - Physical Exam Vitals and I&O: Vital Signs Temp 97.5 F 02/10/19 08:00 Pulse 56 02/10/19 08:00 Resp 18 02/10/19 08:00 BP 137/85 02/10/19 08:00 Pulse Ox 100 02/10/19 08:00 Intake & Output 02/09/19 02/10/19 02/10/19 18:59 06:59 18:59 Intake Total 720 Balance 720 Weight (lbs) 41.322 kg 40.823 kg Intake: Tube Feeding 720 Other: # Voids 2 2 # Bowel Movements 1 0 Weight Source Bedscale Patient stated Active Medications: Current Medications Acetaminophen (Tylenol) 650 mg GT Q6H PRN PRN Reason: mild pain Stop: 03/24/19 13:09 Last Admin: 02/07/19 22:07 Dose: 650 mg Al Hydrox/Mg Hydrox/Simethicone (Maalox) 30 ml GT Q6HR PRN PRN Reason: Abdominal Pain Stop: 03/24/19 13:09 Last Admin: 02/02/19 19:21 Dose: 30 ml Albuterol Sulfate (Albuterol 2.5mg/3ml Neb Ud) 2.5 mg HHN Q2HR PRN PRN Reason: Shortness of Breath Stop: 03/24/19 13:09 Albuterol Sulfate (Albuterol 2.5mg/3ml Neb Ud) 2.5 mg HHN [id number] MADHURI Stop: 03/24/19 14:59 Last Admin: 02/10/19 07:14 Dose: 2.5 mg Ascorbic Acid (Vitamin C) 500 mg GT Q12HR MADHURI Stop: 03/24/19 20:59 Last Admin: 02/10/19 09:48 Dose: 500 mg Bisacodyl (Dulcolax 10 Mg Supp) 10 mg RC DAILY PRN PRN Reason: Constipation Stop: 03/24/19 13:09 Budesonide (Pulmicort) 0.5 mg HHN BID MADHURI Stop: 03/24/19 16:59 Last Admin: 02/10/19 07:24 Dose: 0.5 mg Carvedilol (Coreg) 6.25 mg GT Q12H MADHURI Stop: 03/24/19 13:14 Last Admin: 02/10/19 03:31 Dose: 6.25 mg [place] Oil/[place] Balsam/Trypsin (Venelex) 1 appl TP DAILY MADHURI Stop: 03/25/19 08:59 Last Admin: 02/09/19 08:30 Dose: 1 appl Dextrose (Glutose 40%) 18.75 gm PO UD PRN PRN Reason: Blood Glucose less than 70 Stop: 03/24/19 13:09 Last Admin: 02/09/19 09:44 Dose: 18.75 gm Docusate Sodium (Colace) 200 mg GT Q12H PRN PRN Reason: Constipation Stop: 03/24/19 13:09 Last Admin: 02/07/19 22:29 Dose: 200 mg Ferrous Sulfate (Iron) 325 mg PO DAILY MADHURI Stop: 03/25/19 08:59 Last Admin: 02/10/19 09:48 Dose: 325 mg Glucagon (Glucagen) 1 mg IM PRN PRN PRN Reason: Blood Glucose less than 70 Stop: 03/24/19 13:09 Heparin Sodium (Porcine) (Heparin) 5,000 units SUBQ Q12HR MADHURI Stop: 04/08/19 20:59 Last Admin: 02/10/19 09:49 Dose: 5,000 units Dextrose/Sodium Chloride (D5-0.45ns) 1,000 mls @ 50 mls/hr IV .Q20H [facility] Stop: 03/26/19 22:14 Last Admin: 02/08/19 01:17 Dose: 50 mls/hr Vancomycin HCl 1 gm/ Sodium (Chloride) 250 mls @ 165 mls/hr IV Q18H MADHURI Stop: 04/08/19 15:59 Last Admin: 02/09/19 23:11 Dose: 165 mls/hr Insulin Human Lispro (Humalog Insulin Sliding Scale) 0 units SUBQ Q12HR MADHURI; Protocol Stop: 03/24/19 20:59 Last Admin: 02/09/19 21:00 Dose: Not Given Lactobacillus Rhamnosus (Culturelle 15b) 1 each PO DAILY [facility] Stop: 03/25/19 08:59 Last Admin: 02/10/19 09:48 Dose: 1 each Lorazepam (Ativan) 1 mg GT Q6HR PRN; Protocol PRN Reason: Anxiety Stop: 04/08/19 19:37 Last Admin: 02/10/19 05:32 Dose: 1 mg Magnesium Hydroxide (Milk Of Magnesia) 30 ml GT HS PRN PRN Reason: Constipation Stop: 03/24/19 13:09 Miscellaneous (Probiotic Screen) 1 ea MC PRN PRN PRN Reason: PROTOCOL Stop: 03/25/19 14:19 Pantoprazole Sodium (Protonix) 40 mg IVP DAILY MADHURI Stop: 03/25/19 08:59 Last Admin: 02/09/19 08:30 Dose: 40 mg Sodium Phosphate (Fleet Enema) 135 ml RC Q48HR PRN PRN Reason: Constipation Stop: 03/24/19 13:09 Physical Exam: 58 y/o female patient recently had a fall, possible syncope. patient has weakness and dysphagia. General: weak, alert HEENT: NC/AT Neck: + trach Lungs: other (Respiratory failure, stable.) Cardiovascular: RRR, Normal S1 Abdomen: +GT Extremities: clear Neurological: muscle weakness, unsteady - Procedures Procedures: Procedures Procedure Code Date INSERTION OF FEEDING DEVICE INTO STOMACH, PERC APPROACH [id number] 01/02/19 INSERTION OF INFUSION DEVICE INTO R LOW ARM, PERC APPROACH [id number] 01/02/19 INTRODUCTION OF NUTRITIONAL INTO PERIPH VEIN, PERC APPROACH [id number] 01/02/19 RESPIRATORY VENTILATION, LESS THAN 24 CONSECUTIVE HOURS [id number] 04/07/18 Internal Medicine Assmt/Plan - Assessment Assessment: S/p fall. Confused. Chronic Respiratory Failure. Pneumonia. Weakness. Hypertension. Diabetes. CAD. Copd. Dyslipidemia. Gerd. S/p trach and PEG. - Plan Plan: CPM Fall precaution. Continue nebulizer treatment and pulmonary support. Aspiration precaution. Supportive care. Discharge planning/awaiting placement. Continue present care management. Nutritional Asmnt/Malnutr-PDOC - Dietary Evaluation Malnutrition Findings (Please click <Entered> for more info): Nutritional Asmnt/Malnutrition Start: 01/24/19 17: 26 Text: Status: Complete Freq: Protocol: Document 01/24/19 17:27 LCHENG (Rec: 01/24/19 17:49 [email or web address]) Nutritional Asmnt/Malnutrition Patient General Information Nutritional Screening High Risk Consult Diagnosis falls and weakness Pertinent Medical Hx/Surgical Hx HTN, DM, CAD, asthma/COPD, dyslipidemia, PUD/GERD, PEG/ Gtube Subjective Information Pt seen resting in bed at time of visit. Spoke with RN yesterday regarding TF regimen . Current Diet Order/ Nutrition Support Jevity 1.2 at 60ml/hr x 20hr Pertinent Medications vitC, colace, iron, heparin, humalog, culturelle Pertinent Labs 01/24 Cr 0.4, Glucose 99, POC 67-83 Nutritional Hx/Data Height 1.63 m Height (Calculated Centimeters) 162.6 Current Weight (lbs) 41.277 kg Weight (Calculated Kilograms) 41.3 Weight (Calculated Grams) 19152.9 [place] Body Weight 120 Body Mass Index (BMI) 15.6 Weight Status Underweight GI Symptoms GI Symptoms None Last BM none Difficult in: None Estimated Nutritional Goals Calories/Kcals/Kg 25-30 IBW 55kg Kcals Calculated 0408-4181 Protein g/k-1.2 Protein Calculated 55-66 Fluid: ml 1265-1485ml (1ml/kcal) Nutritional Problem No current Nutrition Prob Problem N/A Intervention/Recommendation Comments 1. Continue with current TF regimen Jevity 1.2 at 60ml/hr x 20hr. It provides 1440kcal, 67g protein, 968ml free water, meeting 100% of nutritional needs 2. Monitor TF rate, tolerance, wt, skin integrity and labs 3. F/U as low risk in 7 days Expected Outcomes/Goals Expected Outcomes/Goals 1. Pt to meet at least 90% of nutritional needs via nutrition support with tolerance 2. Wt stability, skin to remain intact, labs to approach WNL.
[2019-02-10] MEDS: Venelex 60gm Tube TP SCH (11:10)
[2019-02-10] MEDS: INSULIN LISPRO SLIDING SCALE 100 UNITS/ML UNIT SUBQ SCH (11:10)
--- NOTE | 2019-02-10 11:38 | Infectious Disease Prog Note ---
Infectious Disease Subjective - Review of Systems Service Date: 02/10/19 Subjective: There is no new change, no fever. MRI was not done as patient was very agitated at the [facility]. Infectious Disease Objective - Results Result Diagrams: 02/04/19 05:35 02/08/19 08:53 Recent Labs: Laboratory Last Values WBC 3.8 Th/cmm (4.8-10.8) L 02/04/19 05:35 RBC 2.98 Mil/cmm (3.80-5.10) L 02/04/19 05:35 Hgb 9.7 gm/dL (12-16) L 02/04/19 05:35 Hct 28.4 % (41.0-60) L 02/04/19 05:35 MCV 95.5 fl (81-100) 02/04/19 05:35 MCH 32.5 pg (27.0-31.0) H 02/04/19 05:35 MCHC Differential 34.0 pg (28.0-36.0) 02/04/19 05:35 RDW 15.4 % (11.5-20.0) 02/04/19 05:35 Plt Count 248 Th/cmm (150-400) 02/04/19 05:35 MPV 7.6 fl 02/04/19 05:35 Add Manual Diff YES 01/31/19 05:15 Neutrophils % 61.0 % (40.0-80.0) 02/04/19 05:35 Band Neutrophils % 0 % (0-10) 01/31/19 05:15 Lymphocytes % 26.3 % (20.0-50.0) 02/04/19 05:35 Monocytes % 8.7 % (2.0-10.0) 02/04/19 05:35 Eosinophils % 2.9 % (0.0-5.0) 02/04/19 05:35 Basophils % 1.1 % (0.0-2.0) 02/04/19 05:35 Neutrophils (Manual) 73 % (40-80) 01/31/19 05:15 Lymphocytes 21 % (20-50) 01/31/19 05:15 Monocytes 5 % (2-10) 01/31/19 05:15 Eosinophils 1 % (0-5) 01/31/19 05:15 Basophils 0 % (0-3) 01/31/19 05:15 PT 10.1 SECONDS (9.5-11.5) 01/23/19 02:00 INR 0.97 (0.5-1.4) 01/23/19 02:00 Sodium 142 mEq/L (136-145) 02/08/19 08:53 Potassium 4.7 mEq/L (3.5-5.1) 02/08/19 08:53 Chloride 106 mEq/L (98-107) 02/08/19 08:53 Carbon Dioxide 28.9 mEq/L (21.0-31.0) 02/08/19 08:53 Anion Gap 11.8 (7.0-16.0) 02/08/19 08:53 BUN 18 mg/dL (7-25) 02/08/19 08:53 Creatinine 0.4 mg/dL (0.6-1.2) L 02/08/19 08:53 Est GFR ( Amer) > 60.0 ml/min (>90) 02/08/19 08:53 Est GFR (Non-Af Amer) > 60.0 ml/min 02/08/19 08:53 BUN/Creatinine Ratio 45.0 02/08/19 08:53 Glucose 109 mg/dL (70-105) H 02/08/19 08:53 POC Glucose 69 MG/DL (70 - 105) L 02/09/19 11:09 Whole Bld Lactic Acid 1.42 mmol/L (0.60-1.99) 01/23/19 02:00 Calcium 9.0 mg/dL (8.6-10.3) 02/08/19 08:53 Total Bilirubin 0.3 mg/dL (0.3-1.0) 01/30/19 05:45 AST 21 U/L (13-39) 01/30/19 05:45 ALT 31 U/L (7-52) 01/30/19 05:45 Alkaline Phosphatase 110 U/L (34-104) H 01/30/19 05:45 Creatine Kinase 36 U/L (30-223) 01/23/19 02:00 Troponin I < 0.01 ng/mL (0.01-0.05) L 01/23/19 02:00 B-Natriuretic Peptide 372.0 pg/mL (5.0-100.0) H 02/04/19 05:35 Total Protein 6.2 gm/dL (6.0-8.3) 01/30/19 05:45 Albumin 2.8 gm/dL (3.7-5.3) L 01/30/19 05:45 Globulin 3.4 gm/dL 01/30/19 05:45 Albumin/Globulin Ratio 0.8 (1.0-1.8) L 01/30/19 05:45 Triglycerides 120 mg/dL (<150) 01/23/19 02:00 Cholesterol 107 mg/dL (<200) 01/23/19 02:00 LDL Cholesterol Direct 66 mg/dL (75-193) L 01/23/19 02:00 HDL Cholesterol 29 mg/dL (23-92) 01/23/19 02:00 Urine Source CATH 01/23/19 02:20 Urine Color YELLOW 01/23/19 02:20 Urine Clarity CLEAR (CLEAR) 01/23/19 02:20 Urine pH 7.0 (4.6 - 8.0) 01/23/19 02:20 Ur Specific [place] 1.010 (1.005-1.030) 01/23/19 02:20 Urine Protein NEGATIVE mg/dL (NEGATIVE) 01/23/19 02:20 Urine Glucose (UA) NEGATIVE mg/dL (NEGATIVE) 01/23/19 02:20 Urine Ketones NEGATIVE mg/dL (NEGATIVE) 01/23/19 02:20 Urine Blood NEGATIVE (NEGATIVE) 01/23/19 02:20 Urine Nitrate NEGATIVE (NEGATIVE) 01/23/19 02:20 Urine Bilirubin NEGATIVE (NEGATIVE) 01/23/19 02:20 Urine Urobilinogen 0.2 E.U./dL (0.2 - 1.0) 01/23/19 02:20 Ur Leukocyte Esterase NEGATIVE (NEGATIVE) 01/23/19 02:20 Vancomycin Trough 19.5 ug/mL (5-10) H 02/08/19 08:53 - Physical Exam Vitals and I&O: Vital Signs Temp 97.6 F 02/10/19 10:00 Pulse 60 02/10/19 11:15 Resp 18 02/10/19 11:15 BP 136/74 02/10/19 10:00 Pulse Ox 100 02/10/19 11:15 Intake & Output 02/09/19 02/10/19 02/10/19 18:59 06:59 18:59 Intake Total 720 Balance 720 Weight (lbs) 41.322 kg 40.823 kg Intake: Tube Feeding 720 Other: # Voids 2 2 # Bowel Movements 1 0 Weight Source Bedscale Patient stated Active Medications: Current Medications Acetaminophen (Tylenol) 650 mg GT Q6H PRN PRN Reason: mild pain Stop: 03/24/19 13:09 Last Admin: 02/07/19 22:07 Dose: 650 mg Al Hydrox/Mg Hydrox/Simethicone (Maalox) 30 ml GT Q6HR PRN PRN Reason: Abdominal Pain Stop: 03/24/19 13:09 Last Admin: 02/02/19 19:21 Dose: 30 ml Albuterol Sulfate (Albuterol 2.5mg/3ml Neb Ud) 2.5 mg HHN Q2HR PRN PRN Reason: Shortness of Breath Stop: 03/24/19 13:09 Albuterol Sulfate (Albuterol 2.5mg/3ml Neb Ud) 2.5 mg HHN [id number] [facility] Stop: 03/24/19 14:59 Last Admin: 02/10/19 11:14 Dose: 2.5 mg Ascorbic Acid (Vitamin C) 500 mg GT Q12HR [facility] Stop: 03/24/19 20:59 Last Admin: 02/10/19 09:48 Dose: 500 mg Bisacodyl (Dulcolax 10 Mg Supp) 10 mg RC DAILY PRN PRN Reason: Constipation Stop: 03/24/19 13:09 Budesonide (Pulmicort) 0.5 mg HHN BID [facility] Stop: 03/24/19 16:59 Last Admin: 02/10/19 07:24 Dose: 0.5 mg Carvedilol (Coreg) 6.25 mg GT Q12H MADHURI Stop: 03/24/19 13:14 Last Admin: 02/10/19 03:31 Dose: 6.25 mg [place] Oil/[place] Balsam/Trypsin (Venelex) 1 appl TP DAILY [facility] Stop: 03/25/19 08:59 Last Admin: 02/10/19 11:10 Dose: 1 appl Dextrose (Glutose 40%) 18.75 gm PO UD PRN PRN Reason: Blood Glucose less than 70 Stop: 03/24/19 13:09 Last Admin: 02/09/19 09:44 Dose: 18.75 gm Docusate Sodium (Colace) 200 mg GT Q12H PRN PRN Reason: Constipation Stop: 03/24/19 13:09 Last Admin: 02/07/19 22:29 Dose: 200 mg Ferrous Sulfate (Iron) 325 mg PO DAILY MADHURI Stop: 03/25/19 08:59 Last Admin: 02/10/19 09:48 Dose: 325 mg Glucagon (Glucagen) 1 mg IM PRN PRN PRN Reason: Blood Glucose less than 70 Stop: 03/24/19 13:09 Heparin Sodium (Porcine) (Heparin) 5,000 units SUBQ Q12HR [facility] Stop: 04/08/19 20:59 Last Admin: 02/10/19 09:49 Dose: 5,000 units Dextrose/Sodium Chloride (D5-0.45ns) 1,000 mls @ 50 mls/hr IV .Q20H [facility] Stop: 03/26/19 22:14 Last Admin: 02/08/19 01:17 Dose: 50 mls/hr Vancomycin HCl 1 gm/ Sodium (Chloride) 250 mls @ 165 mls/hr IV Q18H [facility] Stop: 04/08/19 15:59 Last Admin: 02/09/19 23:11 Dose: 165 mls/hr Insulin Human Lispro (Humalog Insulin Sliding Scale) 0 units SUBQ Q12HR MADHURI; Protocol Stop: 03/24/19 20:59 Last Admin: 02/10/19 11:10 Dose: Not Given Lactobacillus Rhamnosus (Culturelle 15b) 1 each PO DAILY [facility] Stop: 03/25/19 08:59 Last Admin: 02/10/19 09:48 Dose: 1 each Lorazepam (Ativan) 1 mg GT Q6HR PRN; Protocol PRN Reason: Anxiety Stop: 04/08/19 19:37 Last Admin: 02/10/19 05:32 Dose: 1 mg Magnesium Hydroxide (Milk Of Magnesia) 30 ml GT HS PRN PRN Reason: Constipation Stop: 03/24/19 13:09 Miscellaneous (Probiotic Screen) 1 ea MC PRN PRN PRN Reason: PROTOCOL Stop: 03/25/19 14:19 Pantoprazole Sodium (Protonix) 40 mg IVP DAILY [facility] Stop: 03/25/19 08:59 Last Admin: 02/09/19 08:30 Dose: 40 mg Sodium Phosphate (Fleet Enema) 135 ml RC Q48HR PRN PRN Reason: Constipation Stop: 03/24/19 13:09 General: no acute distress, cachectic HEENT: atraumatic, normocephalic, PERRLA Neck: supple, no thyromegaly Cardiovascular: S1S2, regular Lungs: clear to auscultation bilaterally, clear to percussion Abdomen: soft, no tender, no rebound Extremities: no cyanosis, no clubbing, no edema Neurological: awake, alert, other (Confused) Skin: intact - Procedures Procedures: Procedures Procedure Code Date INSERTION OF FEEDING DEVICE INTO STOMACH, PERC APPROACH [id number] 01/02/19 INSERTION OF INFUSION DEVICE INTO R LOW ARM, PERC APPROACH [id number] 01/02/19 INTRODUCTION OF NUTRITIONAL INTO PERIPH VEIN, PERC APPROACH [id number] 01/02/19 RESPIRATORY VENTILATION, LESS THAN 24 CONSECUTIVE HOURS [id number] 04/07/18 Infectious Disease Assmt/Plan - Assessment Assessment: 1. MRSA sepsis. treated 2. discitis/osteomyelitis of lumbar spine. 3. Dementia. 4. Dysphagia requiring G-tube placement, but she has pulled out G-tube 3 times already. 5. Dementia. 6. Protein-calorie malnutrition and failure to thrive. 7. Psychosis. 8. Chronic obstructive pulmonary disease. 9. Leukopenia. - Plan Plan: Continue vanco iv for 6 to 8 weeks with trough level 12 - 20. ( End date: 02/2019). Nutritional Asmnt/Malnutr-PDOC - Dietary Evaluation Malnutrition Findings (Please click <Entered> for more info): Nutritional Asmnt/Malnutrition Start: 01/24/19 17: 26 Text: Status: Complete Freq: Protocol: Document 01/24/19 17:27 LCHENG (Rec: 01/24/19 17:49 [email or web address]) Nutritional Asmnt/Malnutrition Patient General Information Nutritional Screening High Risk Consult Diagnosis falls and weakness Pertinent Medical Hx/Surgical Hx HTN, DM, CAD, asthma/COPD, dyslipidemia, PUD/GERD, PEG/ Gtube Subjective Information Pt seen resting in bed at time of visit. Spoke with RN yesterday regarding TF regimen . Current Diet Order/ Nutrition Support Jevity 1.2 at 60ml/hr x 20hr Pertinent Medications vitC, colace, iron, heparin, humalog, culturelle Pertinent Labs 01/24 Cr 0.4, Glucose 99, POC 67-83 Nutritional Hx/Data Height 1.63 m Height (Calculated Centimeters) 162.6 Current Weight (lbs) 41.277 kg Weight (Calculated Kilograms) 41.3 Weight (Calculated Grams) 62088.9 [place] Body Weight 120 Body Mass Index (BMI) 15.6 Weight Status Underweight GI Symptoms GI Symptoms None Last BM none Difficult in: None Estimated Nutritional Goals Calories/Kcals/Kg 25-30 IBW 55kg Kcals Calculated 3473-1971 Protein g/k-1.2 Protein Calculated 55-66 Fluid: ml 1265-1485ml (1ml/kcal) Nutritional Problem No current Nutrition Prob Problem N/A Intervention/Recommendation Comments 1. Continue with current TF regimen Jevity 1.2 at 60ml/hr x 20hr. It provides 1440kcal, 67g protein, 968ml free water, meeting 100% of nutritional needs 2. Monitor TF rate, tolerance, wt, skin integrity and labs 3. F/U as low risk in 7 days Expected Outcomes/Goals Expected Outcomes/Goals 1. Pt to meet at least 90% of nutritional needs via nutrition support with tolerance 2. Wt stability, skin to remain intact, labs to approach WNL.
[2019-02-10] MEDS: D5-0.45NS 1,000 ML IV SCH (13:54)
[2019-02-11] MEDS: Albuterol Nebulizer 2.5mg/3mL HHN SCH ×4 (07:02→19:22)
[2019-02-11] MEDS: Budesonide 0.5 Mg/2 mL Ud HHN SCH ×2 (07:02→19:22)
[2019-02-11 09:33] LABS: ANION GAP 9.7 (7.0-16.0); BUN - UREA NITROGEN 15 mg/dL (7-25); CARBON DIOXIDE 29.6 mEq/L (21.0-31.0); CHLORIDE 104 mEq/L (98-107); CREATININE - SERUM 0.5 mg/dL (0.6-1.2); GFR AFRICAN-AMERICAN > 60.0 ml/min (>90); GFR NON AFRICAN-AMERICAN > 60.0 ml/min; GLUCOSE 128 mg/dL (70-105); POTASSIUM SERUM 3.3 mEq/L (3.5-5.1); SODIUM SERUM 140 mEq/L (136-145)
[2019-02-11] MEDS: Multivitamin w/ Minerals Tab GT SCH (09:48)
[2019-02-11] MEDS: Lactobacillus Rhamnosus GG 15 Billion CFU CAP.SPRINK PO SCH (09:48)
[2019-02-11] MEDS: Ferrous Sulfate 325 MG TAB PO SCH (09:48)
[2019-02-11] MEDS: D5-0.45NS 1,000 ML IV SCH (11:31)
--- NOTE | 2019-02-11 11:45 | Infectious Disease Prog Note ---
Infectious Disease Subjective - Review of Systems Service Date: 02/11/19 Subjective: There is no new change, no fever. Infectious Disease Objective - Results Result Diagrams: 02/04/19 05:35 02/11/19 09:00 Recent Labs: Laboratory Last Values WBC 3.8 Th/cmm (4.8-10.8) L 02/04/19 05:35 RBC 2.98 Mil/cmm (3.80-5.10) L 02/04/19 05:35 Hgb 9.7 gm/dL (12-16) L 02/04/19 05:35 Hct 28.4 % (41.0-60) L 02/04/19 05:35 MCV 95.5 fl (81-100) 02/04/19 05:35 MCH 32.5 pg (27.0-31.0) H 02/04/19 05:35 MCHC Differential 34.0 pg (28.0-36.0) 02/04/19 05:35 RDW 15.4 % (11.5-20.0) 02/04/19 05:35 Plt Count 248 Th/cmm (150-400) 02/04/19 05:35 MPV 7.6 fl 02/04/19 05:35 Add Manual Diff YES 01/31/19 05:15 Neutrophils % 61.0 % (40.0-80.0) 02/04/19 05:35 Band Neutrophils % 0 % (0-10) 01/31/19 05:15 Lymphocytes % 26.3 % (20.0-50.0) 02/04/19 05:35 Monocytes % 8.7 % (2.0-10.0) 02/04/19 05:35 Eosinophils % 2.9 % (0.0-5.0) 02/04/19 05:35 Basophils % 1.1 % (0.0-2.0) 02/04/19 05:35 Neutrophils (Manual) 73 % (40-80) 01/31/19 05:15 Lymphocytes 21 % (20-50) 01/31/19 05:15 Monocytes 5 % (2-10) 01/31/19 05:15 Eosinophils 1 % (0-5) 01/31/19 05:15 Basophils 0 % (0-3) 01/31/19 05:15 PT 10.1 SECONDS (9.5-11.5) 01/23/19 02:00 INR 0.97 (0.5-1.4) 01/23/19 02:00 Sodium 140 mEq/L (136-145) 02/11/19 09:00 Potassium 3.3 mEq/L (3.5-5.1) L 02/11/19 09:00 Chloride 104 mEq/L (98-107) 02/11/19 09:00 Carbon Dioxide 29.6 mEq/L (21.0-31.0) 02/11/19 09:00 Anion Gap 9.7 (7.0-16.0) 02/11/19 09:00 BUN 15 mg/dL (7-25) 02/11/19 09:00 Creatinine 0.5 mg/dL (0.6-1.2) L 02/11/19 09:00 Est GFR ( Amer) > 60.0 ml/min (>90) 02/11/19 09:00 Est GFR (Non-Af Amer) > 60.0 ml/min 02/11/19 09:00 BUN/Creatinine Ratio 30.0 02/11/19 09:00 Glucose 128 mg/dL (70-105) H 02/11/19 09:00 POC Glucose 100 MG/DL (70 - 105) 02/10/19 20:28 Whole Bld Lactic Acid 1.42 mmol/L (0.60-1.99) 01/23/19 02:00 Calcium 9.0 mg/dL (8.6-10.3) 02/11/19 09:00 Total Bilirubin 0.3 mg/dL (0.3-1.0) 01/30/19 05:45 AST 21 U/L (13-39) 01/30/19 05:45 ALT 31 U/L (7-52) 01/30/19 05:45 Alkaline Phosphatase 110 U/L (34-104) H 01/30/19 05:45 Creatine Kinase 36 U/L (30-223) 01/23/19 02:00 Troponin I < 0.01 ng/mL (0.01-0.05) L 01/23/19 02:00 B-Natriuretic Peptide 372.0 pg/mL (5.0-100.0) H 02/04/19 05:35 Total Protein 6.2 gm/dL (6.0-8.3) 01/30/19 05:45 Albumin 2.8 gm/dL (3.7-5.3) L 01/30/19 05:45 Globulin 3.4 gm/dL 01/30/19 05:45 Albumin/Globulin Ratio 0.8 (1.0-1.8) L 01/30/19 05:45 Triglycerides 120 mg/dL (<150) 01/23/19 02:00 Cholesterol 107 mg/dL (<200) 01/23/19 02:00 LDL Cholesterol Direct 66 mg/dL (75-193) L 01/23/19 02:00 HDL Cholesterol 29 mg/dL (23-92) 01/23/19 02:00 Urine Source CATH 01/23/19 02:20 Urine Color YELLOW 01/23/19 02:20 Urine Clarity CLEAR (CLEAR) 01/23/19 02:20 Urine pH 7.0 (4.6 - 8.0) 01/23/19 02:20 Ur Specific [place] 1.010 (1.005-1.030) 01/23/19 02:20 Urine Protein NEGATIVE mg/dL (NEGATIVE) 01/23/19 02:20 Urine Glucose (UA) NEGATIVE mg/dL (NEGATIVE) 01/23/19 02:20 Urine Ketones NEGATIVE mg/dL (NEGATIVE) 01/23/19 02:20 Urine Blood NEGATIVE (NEGATIVE) 01/23/19 02:20 Urine Nitrate NEGATIVE (NEGATIVE) 01/23/19 02:20 Urine Bilirubin NEGATIVE (NEGATIVE) 01/23/19 02:20 Urine Urobilinogen 0.2 E.U./dL (0.2 - 1.0) 01/23/19 02:20 Ur Leukocyte Esterase NEGATIVE (NEGATIVE) 01/23/19 02:20 Vancomycin Trough 19.8 ug/mL (5-10) H 02/11/19 09:00 - Physical Exam Vitals and I&O: Vital Signs Temp 98 F 02/11/19 11:39 Pulse 57 02/11/19 11:39 Resp 18 02/11/19 11:39 BP 146/75 02/11/19 11:39 Pulse Ox 98 02/11/19 11:39 Intake & Output 02/10/19 02/11/19 02/11/19 18:59 06:59 18:59 Intake Total 970 1000 Balance 970 1000 Weight (lbs) 40.37 kg Intake: Intake, IV Amount 250 1000 D5-0.45NS 1,000 ml @ 50 1000 mls/hr IV .Q20H [facility] Rx#: [id number] Vancomycin HCl 1 gm In 250 Sodium Chloride 0.9% 250 ml @ 165 mls/hr IV Q18H [facility] Rx#:[id number] Tube Feeding 720 Other: # Voids 2 # Bowel Movements 0 Weight Source Bedscale Active Medications: Current Medications Acetaminophen (Tylenol) 650 mg GT Q6H PRN PRN Reason: mild pain Stop: 03/24/19 13:09 Last Admin: 02/07/19 22:07 Dose: 650 mg Al Hydrox/Mg Hydrox/Simethicone (Maalox) 30 ml GT Q6HR PRN PRN Reason: Abdominal Pain Stop: 03/24/19 13:09 Last Admin: 02/02/19 19:21 Dose: 30 ml Albuterol Sulfate (Albuterol 2.5mg/3ml Neb Ud) 2.5 mg HHN Q2HR PRN PRN Reason: Shortness of Breath Stop: 03/24/19 13:09 Albuterol Sulfate (Albuterol 2.5mg/3ml Neb Ud) 2.5 mg HHN [id number] [facility] Stop: 03/24/19 14:59 Last Admin: 02/11/19 10:59 Dose: 2.5 mg Ascorbic Acid (Vitamin C) 500 mg GT Q12HR [facility] Stop: 03/24/19 20:59 Last Admin: 02/11/19 09:48 Dose: 500 mg Bisacodyl (Dulcolax 10 Mg Supp) 10 mg RC DAILY PRN PRN Reason: Constipation Stop: 03/24/19 13:09 Budesonide (Pulmicort) 0.5 mg HHN BID [facility] Stop: 03/24/19 16:59 Last Admin: 02/11/19 07:02 Dose: 0.5 mg Carvedilol (Coreg) 6.25 mg GT Q12H [facility] Stop: 03/24/19 13:14 Last Admin: 02/11/19 03:40 Dose: 6.25 mg [place] Oil/[place] Balsam/Trypsin (Venelex) 1 appl TP DAILY [facility] Stop: 03/25/19 08:59 Last Admin: 02/10/19 11:10 Dose: 1 appl Dextrose (Glutose 40%) 18.75 gm PO UD PRN PRN Reason: Blood Glucose less than 70 Stop: 03/24/19 13:09 Last Admin: 02/09/19 09:44 Dose: 18.75 gm Docusate Sodium (Colace) 200 mg GT Q12H PRN PRN Reason: Constipation Stop: 03/24/19 13:09 Last Admin: 02/07/19 22:29 Dose: 200 mg Ferrous Sulfate (Iron) 325 mg PO DAILY [facility] Stop: 03/25/19 08:59 Last Admin: 02/11/19 09:48 Dose: 325 mg Glucagon (Glucagen) 1 mg IM PRN PRN PRN Reason: Blood Glucose less than 70 Stop: 03/24/19 13:09 Heparin Sodium (Porcine) (Heparin) 5,000 units SUBQ Q12HR [facility] Stop: 04/08/19 20:59 Last Admin: 02/11/19 09:48 Dose: 5,000 units Dextrose/Sodium Chloride (D5-0.45ns) 1,000 mls @ 50 mls/hr IV .Q20H [facility] Stop: 03/26/19 22:14 Last Admin: 02/11/19 11:31 Dose: 50 mls/hr Vancomycin HCl 1 gm/ Sodium (Chloride) 250 mls @ 165 mls/hr IV Q18H [facility] Stop: 04/08/19 15:59 Last Admin: 02/11/19 11:27 Dose: 165 mls/hr Lactobacillus Rhamnosus (Culturelle 15b) 1 each PO DAILY [facility] Stop: 03/25/19 08:59 Last Admin: 02/11/19 09:48 Dose: 1 each Lorazepam (Ativan) 1 mg GT Q6HR PRN; Protocol PRN Reason: Anxiety Stop: 04/08/19 19:37 Last Admin: 02/11/19 09:48 Dose: 1 mg Magnesium Hydroxide (Milk Of Magnesia) 30 ml GT HS PRN PRN Reason: Constipation Stop: 03/24/19 13:09 Miscellaneous (Probiotic Screen) 1 ea MC PRN PRN PRN Reason: PROTOCOL Stop: 03/25/19 14:19 Pantoprazole Sodium (Protonix) 40 mg IVP DAILY [facility] Stop: 03/25/19 08:59 Last Admin: 02/11/19 09:48 Dose: 40 mg Sodium Phosphate (Fleet Enema) 135 ml RC Q48HR PRN PRN Reason: Constipation Stop: 03/24/19 13:09 General: no acute distress, cachectic HEENT: atraumatic, normocephalic, PERRLA, EOMI Neck: supple, no thyromegaly, no lymphadenopathy, no rigid Cardiovascular: S1S2, regular Lungs: clear to auscultation bilaterally, clear to percussion Abdomen: soft, no tender, no distended, no hepatomegaly Extremities: no cyanosis, no clubbing, no edema Neurological: awake, alert, other (confused) Skin: intact - Procedures Procedures: Procedures Procedure Code Date INSERTION OF FEEDING DEVICE INTO STOMACH, PERC APPROACH [id number] 01/02/19 INSERTION OF INFUSION DEVICE INTO R LOW ARM, PERC APPROACH [id number] 01/02/19 INTRODUCTION OF NUTRITIONAL INTO PERIPH VEIN, PERC APPROACH [id number] 01/02/19 RESPIRATORY VENTILATION, LESS THAN 24 CONSECUTIVE HOURS [id number] 04/07/18 Infectious Disease Assmt/Plan - Assessment Assessment: 1. MRSA sepsis. treated 2. discitis/osteomyelitis of lumbar spine. 3. Dementia. 4. Dysphagia requiring G-tube placement, but she has pulled out G-tube 3 times already. 5. Dementia. 6. Protein-calorie malnutrition and failure to thrive. 7. Psychosis. 8. Chronic obstructive pulmonary disease. 9. Leukopenia. - Plan Plan: Continue vanco iv for 8 weeks with trough level 12 - 20. ( End date: 2018). Nutritional Asmnt/Malnutr-PDOC - Dietary Evaluation Malnutrition Findings (Please click <Entered> for more info): Nutritional Asmnt/Malnutrition Start: 01/24/19 17: 26 Text: Status: Complete Freq: Protocol: Document 01/24/19 17:27 MARLYG (Rec: 01/24/19 17:49 [email or web address]) Nutritional Asmnt/Malnutrition Patient General Information Nutritional Screening High Risk Consult Diagnosis falls and weakness Pertinent Medical Hx/Surgical Hx HTN, DM, CAD, asthma/COPD, dyslipidemia, PUD/GERD, PEG/ Gtube Subjective Information Pt seen resting in bed at time of visit. Spoke with RN yesterday regarding TF regimen . Current Diet Order/ Nutrition Support Jevity 1.2 at 60ml/hr x 20hr Pertinent Medications vitC, colace, iron, heparin, humalog, culturelle Pertinent Labs 01/24 Cr 0.4, Glucose 99, POC 67-83 Nutritional Hx/Data Height 1.63 m Height (Calculated Centimeters) 162.6 Current Weight (lbs) 41.277 kg Weight (Calculated Kilograms) 41.3 Weight (Calculated Grams) 42551.9 [place] Body Weight 120 Body Mass Index (BMI) 15.6 Weight Status Underweight GI Symptoms GI Symptoms None Last BM none Difficult in: None Estimated Nutritional Goals Calories/Kcals/Kg 25-30 IBW 55kg Kcals Calculated 2710-4865 Protein g/k-1.2 Protein Calculated 55-66 Fluid: ml 1265-1485ml (1ml/kcal) Nutritional Problem No current Nutrition Prob Problem N/A Intervention/Recommendation Comments 1. Continue with current TF regimen Jevity 1.2 at 60ml/hr x 20hr. It provides 1440kcal, 67g protein, 968ml free water, meeting 100% of nutritional needs 2. Monitor TF rate, tolerance, wt, skin integrity and labs 3. F/U as low risk in 7 days Expected Outcomes/Goals Expected Outcomes/Goals 1. Pt to meet at least 90% of nutritional needs via nutrition support with tolerance 2. Wt stability, skin to remain intact, labs to approach WNL.
[2019-02-11 12:07] LABS: HEMATOCRIT 32.6 % (41.0-60); HEMOGLOBIN 10.9 gm/dL (12-16); MEAN CORPUSCULAR HEMOGLOBIN 32.9 pg (27.0-31.0); MEAN CORPUSCULAR HGB CONC 33.6 pg (28.0-36.0); RED BLOOD COUNT 3.33 Mil/cmm (3.80-5.10); WHITE BLOOD COUNT 4.6 Th/cmm (4.8-10.8)
[2019-02-11 12:08] LABS: MEAN PLATELET VOLUME 8.6 fl; PLATELET COUNT 181 Th/cmm (150-400); RED CELL DISTRIBUTION WIDTH 15.7 % (11.5-20.0)
[2019-02-11 12:10] LABS: EOSINOPHIL 2.7 % (0-5); LYMPHOCYTE 17.1 % (20-50); MONOCYTE 7.9 % (2-10); NEUTROPHILS 71.5 % (40-80)
[2019-02-11 12:11] LABS: BAND NEUTROPHILE 0 % (0-10); BASOPHIL 0.8 % (0-3)
[2019-02-12] MEDS: D5-0.45NS 1,000 ML IV SCH (04:09)
[2019-02-12] MEDS: Albuterol Nebulizer 2.5mg/3mL HHN SCH ×3 (07:23→14:28)
[2019-02-12] MEDS: Budesonide 0.5 Mg/2 mL Ud HHN SCH (07:23)
[2019-02-12] MEDS: Multivitamin w/ Minerals Tab GT SCH (09:48)
[2019-02-12] MEDS: Ferrous Sulfate 325 MG TAB PO SCH (09:48)
[2019-02-12] MEDS: Lactobacillus Rhamnosus GG 15 Billion CFU CAP.SPRINK PO SCH (09:48)
[2019-02-12] MEDS: Venelex 60gm Tube TP SCH (09:48)
--- NOTE | 2019-02-12 11:23 | Internal Medicine Prog Note ---
Internal Medicine Subjective - Subjective Service Date: 02/12/19 Patient seen and examined:: with staff, chart reviewed Patient is:: awake, in bed, confused (Easily agitated.) Patient Complaints of:: other (Remains on nebulizer treatment.) Per staff patient has:: no adverse event, no episodes of fall, other (Dysphagia reuiring G-tube placement, but she has pulled out G-tube 3 times already.) Internal Medicine Objective - Results Result Diagrams: 02/11/19 09:00 02/11/19 09:00 Recent Labs: Laboratory Last Values WBC 4.6 Th/cmm (4.8-10.8) L 02/11/19 09:00 RBC 3.33 Mil/cmm (3.80-5.10) L 02/11/19 09:00 Hgb 10.9 gm/dL (12-16) L 02/11/19 09:00 Hct 32.6 % (41.0-60) L 02/11/19 09:00 MCV 98.0 fl (81-100) 02/11/19 09:00 MCH 32.9 pg (27.0-31.0) H 02/11/19 09:00 MCHC Differential 33.6 pg (28.0-36.0) 02/11/19 09:00 RDW 15.7 % (11.5-20.0) 02/11/19 09:00 Plt Count 181 Th/cmm (150-400) 02/11/19 09:00 MPV 8.6 fl 02/11/19 09:00 Add Manual Diff YES 02/11/19 09:00 Neutrophils % 61.0 % (40.0-80.0) 02/04/19 05:35 Band Neutrophils % 0 % (0-10) 02/11/19 09:00 Lymphocytes % 26.3 % (20.0-50.0) 02/04/19 05:35 Monocytes % 8.7 % (2.0-10.0) 02/04/19 05:35 Eosinophils % 2.9 % (0.0-5.0) 02/04/19 05:35 Basophils % 1.1 % (0.0-2.0) 02/04/19 05:35 Neutrophils (Manual) 71.5 % (40-80) 02/11/19 09:00 Lymphocytes 17.1 % (20-50) L 02/11/19 09:00 Monocytes 7.9 % (2-10) 02/11/19 09:00 Eosinophils 2.7 % (0-5) 02/11/19 09:00 Basophils 0.8 % (0-3) 02/11/19 09:00 PT 10.1 SECONDS (9.5-11.5) 01/23/19 02:00 INR 0.97 (0.5-1.4) 01/23/19 02:00 Sodium 140 mEq/L (136-145) 02/11/19 09:00 Potassium 3.3 mEq/L (3.5-5.1) L 02/11/19 09:00 Chloride 104 mEq/L (98-107) 02/11/19 09:00 Carbon Dioxide 29.6 mEq/L (21.0-31.0) 02/11/19 09:00 Anion Gap 9.7 (7.0-16.0) 02/11/19 09:00 BUN 15 mg/dL (7-25) 02/11/19 09:00 Creatinine 0.5 mg/dL (0.6-1.2) L 02/11/19 09:00 Est GFR ( Amer) > 60.0 ml/min (>90) 02/11/19 09:00 Est GFR (Non-Af Amer) > 60.0 ml/min 02/11/19 09:00 BUN/Creatinine Ratio 30.0 02/11/19 09:00 Glucose 128 mg/dL (70-105) H 02/11/19 09:00 POC Glucose 100 MG/DL (70 - 105) 02/10/19 20:28 Whole Bld Lactic Acid 1.42 mmol/L (0.60-1.99) 01/23/19 02:00 Calcium 9.0 mg/dL (8.6-10.3) 02/11/19 09:00 Total Bilirubin 0.3 mg/dL (0.3-1.0) 01/30/19 05:45 AST 21 U/L (13-39) 01/30/19 05:45 ALT 31 U/L (7-52) 01/30/19 05:45 Alkaline Phosphatase 110 U/L (34-104) H 01/30/19 05:45 Creatine Kinase 36 U/L (30-223) 01/23/19 02:00 Troponin I < 0.01 ng/mL (0.01-0.05) L 01/23/19 02:00 B-Natriuretic Peptide 372.0 pg/mL (5.0-100.0) H 02/04/19 05:35 Total Protein 6.2 gm/dL (6.0-8.3) 01/30/19 05:45 Albumin 2.8 gm/dL (3.7-5.3) L 01/30/19 05:45 Globulin 3.4 gm/dL 01/30/19 05:45 Albumin/Globulin Ratio 0.8 (1.0-1.8) L 01/30/19 05:45 Triglycerides 120 mg/dL (<150) 01/23/19 02:00 Cholesterol 107 mg/dL (<200) 01/23/19 02:00 LDL Cholesterol Direct 66 mg/dL (75-193) L 01/23/19 02:00 HDL Cholesterol 29 mg/dL (23-92) 01/23/19 02:00 Urine Source CATH 01/23/19 02:20 Urine Color YELLOW 01/23/19 02:20 Urine Clarity CLEAR (CLEAR) 01/23/19 02:20 Urine pH 7.0 (4.6 - 8.0) 01/23/19 02:20 Ur Specific [place] 1.010 (1.005-1.030) 01/23/19 02:20 Urine Protein NEGATIVE mg/dL (NEGATIVE) 01/23/19 02:20 Urine Glucose (UA) NEGATIVE mg/dL (NEGATIVE) 01/23/19 02:20 Urine Ketones NEGATIVE mg/dL (NEGATIVE) 01/23/19 02:20 Urine Blood NEGATIVE (NEGATIVE) 01/23/19 02:20 Urine Nitrate NEGATIVE (NEGATIVE) 01/23/19 02:20 Urine Bilirubin NEGATIVE (NEGATIVE) 01/23/19 02:20 Urine Urobilinogen 0.2 E.U./dL (0.2 - 1.0) 01/23/19 02:20 Ur Leukocyte Esterase NEGATIVE (NEGATIVE) 01/23/19 02:20 Vancomycin Trough 19.8 ug/mL (5-10) H 02/11/19 09:00 - Physical Exam Vitals and I&O: Vital Signs Temp 96.7 F 02/12/19 07:42 Pulse 67 02/12/19 10:17 Resp 18 02/12/19 10:17 BP 138/64 02/12/19 07:42 Pulse Ox 94 02/12/19 10:17 Intake & Output 02/11/19 02/12/19 02/12/19 18:59 06:59 18:59 Intake Total 1250 831.667 Balance 1250 831.667 Weight (lbs) 40.37 kg 40.37 kg Intake: Intake, IV Amount 1250 831.667 D5-0.45NS 1,000 ml @ 50 1000 831.667 mls/hr IV .Q20H [facility] Rx#: [id number] Vancomycin HCl 1 gm In 250 Sodium Chloride 0.9% 250 ml @ 165 mls/hr IV Q18H [facility] Rx#:[id number] Other: # Voids 3 3 # Bowel Movements 1 2 Stool Characteristics Soft Liquid Brown Weight Source Bedscale Bedscale Active Medications: Current Medications Acetaminophen (Tylenol) 650 mg GT Q6H PRN PRN Reason: mild pain Stop: 03/24/19 13:09 Last Admin: 02/07/19 22:07 Dose: 650 mg Al Hydrox/Mg Hydrox/Simethicone (Maalox) 30 ml GT Q6HR PRN PRN Reason: Abdominal Pain Stop: 03/24/19 13:09 Last Admin: 02/02/19 19:21 Dose: 30 ml Albuterol Sulfate (Albuterol 2.5mg/3ml Neb Ud) 2.5 mg HHN Q2HR PRN PRN Reason: Shortness of Breath Stop: 03/24/19 13:09 Albuterol Sulfate (Albuterol 2.5mg/3ml Neb Ud) 2.5 mg HHN [id number] [facility] Stop: 03/24/19 14:59 Last Admin: 02/12/19 10:16 Dose: 2.5 mg Ascorbic Acid (Vitamin C) 500 mg GT Q12HR [facility] Stop: 03/24/19 20:59 Last Admin: 02/12/19 09:48 Dose: 500 mg Bisacodyl (Dulcolax 10 Mg Supp) 10 mg RC DAILY PRN PRN Reason: Constipation Stop: 03/24/19 13:09 Budesonide (Pulmicort) 0.5 mg HHN BID [facility] Stop: 03/24/19 16:59 Last Admin: 02/12/19 07:23 Dose: 0.5 mg Carvedilol (Coreg) 6.25 mg GT Q12H [facility] Stop: 03/24/19 13:14 Last Admin: 02/12/19 01:28 Dose: 6.25 mg [place] Oil/[place] Balsam/Trypsin (Venelex) 1 appl TP DAILY [facility] Stop: 03/25/19 08:59 Last Admin: 02/12/19 09:48 Dose: 1 appl Dextrose (Glutose 40%) 18.75 gm PO UD PRN PRN Reason: Blood Glucose less than 70 Stop: 03/24/19 13:09 Last Admin: 02/09/19 09:44 Dose: 18.75 gm Docusate Sodium (Colace) 200 mg GT Q12H PRN PRN Reason: Constipation Stop: 03/24/19 13:09 Last Admin: 02/07/19 22:29 Dose: 200 mg Ferrous Sulfate (Iron) 325 mg PO DAILY [facility] Stop: 03/25/19 08:59 Last Admin: 02/12/19 09:48 Dose: 325 mg Glucagon (Glucagen) 1 mg IM PRN PRN PRN Reason: Blood Glucose less than 70 Stop: 03/24/19 13:09 Heparin Sodium (Porcine) (Heparin) 5,000 units SUBQ Q12HR [facility] Stop: 04/08/19 20:59 Last Admin: 02/12/19 10:05 Dose: Not Given Dextrose/Sodium Chloride (D5-0.45ns) 1,000 mls @ 50 mls/hr IV .Q20H [facility] Stop: 03/26/19 22:14 Last Admin: 02/12/19 04:09 Dose: 50 mls/hr Vancomycin HCl 1 gm/ Sodium (Chloride) 250 mls @ 165 mls/hr IV Q18H [facility] Stop: 04/08/19 15:59 Last Admin: 02/12/19 04:07 Dose: 165 mls/hr Lactobacillus Rhamnosus (Culturelle 15b) 1 each PO DAILY [facility] Stop: 03/25/19 08:59 Last Admin: 02/12/19 09:48 Dose: 1 each Lorazepam (Ativan) 1 mg GT Q6HR PRN; Protocol PRN Reason: Anxiety Stop: 04/08/19 19:37 Last Admin: 02/12/19 01:29 Dose: 1 mg Magnesium Hydroxide (Milk Of Magnesia) 30 ml GT HS PRN PRN Reason: Constipation Stop: 03/24/19 13:09 Miscellaneous (Probiotic Screen) 1 ea MC PRN PRN PRN Reason: PROTOCOL Stop: 03/25/19 14:19 Pantoprazole Sodium (Protonix) 40 mg IVP DAILY [facility] Stop: 03/25/19 08:59 Last Admin: 02/12/19 10:05 Dose: Not Given Sodium Phosphate (Fleet Enema) 135 ml RC Q48HR PRN PRN Reason: Constipation Stop: 03/24/19 13:09 Physical Exam: 58 y/o female patient history of recurrent falls. patient has weakness and dysphagia. General: weak, alert HEENT: NC/AT Neck: + trach Lungs: other (Respiratory failure, stable.) Cardiovascular: RRR, Normal S1 Abdomen: +GT Extremities: clear Neurological: muscle weakness, unsteady - Procedures Procedures: Procedures Procedure Code Date INSERTION OF FEEDING DEVICE INTO STOMACH, PERC APPROACH [id number] 01/02/19 INSERTION OF INFUSION DEVICE INTO R LOW ARM, PERC APPROACH [id number] 01/02/19 INTRODUCTION OF NUTRITIONAL INTO PERIPH VEIN, PERC APPROACH [id number] 01/02/19 RESPIRATORY VENTILATION, LESS THAN 24 CONSECUTIVE HOURS [id number] 04/07/18 Internal Medicine Assmt/Plan - Assessment Assessment: S/p fall. Confused. Chronic Respiratory Failure. Pneumonia. Weakness. Hypertension. Diabetes. CAD. Copd. Dyslipidemia. Gerd. S/p trach and PEG. - Plan Plan: CPM Fall precaution. Continue nebulizer treatment and pulmonary support. G-tube placement required, pt. keeps pulling it out. Aspiration precaution. Supportive care. Discharge planning/awaiting placement. Continue present care management. Nutritional Asmnt/Malnutr-PDOC - Dietary Evaluation Malnutrition Findings (Please click <Entered> for more info): Nutritional Asmnt/Malnutrition Start: 01/24/19 17: 26 Text: Status: Complete Freq: Protocol: Document 01/24/19 17:27 LCHENG (Rec: 01/24/19 17:49 ANMOL [email or web address]) Nutritional Asmnt/Malnutrition Patient General Information Nutritional Screening High Risk Consult Diagnosis falls and weakness Pertinent Medical Hx/Surgical Hx HTN, DM, CAD, asthma/COPD, dyslipidemia, PUD/GERD, PEG/ Gtube Subjective Information Pt seen resting in bed at time of visit. Spoke with RN yesterday regarding TF regimen . Current Diet Order/ Nutrition Support Jevity 1.2 at 60ml/hr x 20hr Pertinent Medications vitC, colace, iron, heparin, humalog, culturelle Pertinent Labs 01/24 Cr 0.4, Glucose 99, POC 67-83 Nutritional Hx/Data Height 1.63 m Height (Calculated Centimeters) 162.6 Current Weight (lbs) 41.277 kg Weight (Calculated Kilograms) 41.3 Weight (Calculated Grams) 91324.9 [place] Body Weight 120 Body Mass Index (BMI) 15.6 Weight Status Underweight GI Symptoms GI Symptoms None Last BM none Difficult in: None Estimated Nutritional Goals Calories/Kcals/Kg 25-30 IBW 55kg Kcals Calculated 0006-4247 Protein g/k-1.2 Protein Calculated 55-66 Fluid: ml 1265-1485ml (1ml/kcal) Nutritional Problem No current Nutrition Prob Problem N/A Intervention/Recommendation Comments 1. Continue with current TF regimen Jevity 1.2 at 60ml/hr x 20hr. It provides 1440kcal, 67g protein, 968ml free water, meeting 100% of nutritional needs 2. Monitor TF rate, tolerance, wt, skin integrity and labs 3. F/U as low risk in 7 days Expected Outcomes/Goals Expected Outcomes/Goals 1. Pt to meet at least 90% of nutritional needs via nutrition support with tolerance 2. Wt stability, skin to remain intact, labs to approach WNL.
--- NOTE | 2019-02-12 14:46 | Progress Notes ---
DATE: 02/11/2019 SUBJECTIVE: The patient appears to be doing okay. No distress. OBJECTIVE: VITAL SIGNS: Temperature 98.2, pulse 76, respiration 18, blood pressure 151/ , and saturation 99%. CHEST: Good breath sounds. No wheezing. Few rhonchi heard. HEART: Regular rate. ABDOMEN: Soft. EXTREMITIES: No edema. LABORATORY DATA: WBC is 4.6, hemoglobin 10.5, platelets 181. Sodium 140, potassium 3.3, BUN is 15, creatinine 0.5. ASSESSMENT: 1. Respiratory failure. 2. Status post tracheostomy. 3. Chronic obstructive pulmonary disease. 4. Weakness. 5. Dysphagia. PLAN: 1. Continue supportive care. 2. Pulmonary toilet. 3. Discharge planning in progress. JOB# [id number]
== END 2019-02-12 18:28 | DRG 871 ==
LOC: ER 01:14 → MSI 05:22 → TELE 07:55 → MSI 02-05 14:29
PROVIDERS: ADMIT Internal Medicine; ATTEND Internal Medicine
DX: A41.02 Sepsis due to Methicillin resistant Staphylococcus aureus (principal); J18.9 Pneumonia, unspecified organism; J96.20 Acute and chronic respiratory failure, unspecified whether with hypoxia or hypercapnia; E46 Unspecified protein-calorie malnutrition; Z68.1 Body mass index [BMI] 19.9 or less, adult; J44.0 Chronic obstructive pulmonary disease with (acute) lower respiratory infection; M46.26 Osteomyelitis of vertebra, lumbar region; D72.819 Decreased white blood cell count, unspecified; R29.6 Repeated falls; K56.41 Fecal impaction; R62.7 Adult failure to thrive; R55 Syncope and collapse; I25.10 Atherosclerotic heart disease of native coronary artery without angina pectoris; I10 Essential (primary) hypertension; W18.39XA Other fall on same level, initial encounter; Y93.89 Activity, other specified; Y92.128 Other place in nursing home as the place of occurrence of the external cause; Y99.8 Other external cause status; E11.9 Type 2 diabetes mellitus without complications; E78.5 Hyperlipidemia, unspecified; K21.9 Gastro-esophageal reflux disease without esophagitis; R13.10 Dysphagia, unspecified; E87.6 Hypokalemia; Z93.0 Tracheostomy status; F03.90 Unspecified dementia, unspecified severity, without behavioral disturbance, psychotic disturbance, mood disturbance, and anxiety; F29 Unspecified psychosis not due to a substance or known physiological condition
CPT/HCPCS: 36415-UA; 70450-TC; 71045-TC; 72125-TC; 72170-TC; 73030-TC-LT; 73030-TC-RT; 80048-TC; 80053-TC; 80061-TC; 80202-TC; 81003-TC; 82550-TC; 82948-90; 83605; 83880-TC; 84484-TC; 85007-TC; 85025-TC; 85610-TC; 93005; 94640; 94760; C9113; J0456; J0696; J1644; J2060; J3370; J3480; J7040; J7613; X7704; Z7610

== ENCOUNTER 2019-02-15 22:06 | Inpatient (IN) | payer MEDICARE, MEDICAID ==
--- NOTE | 2019-02-15 22:44 | ED Physician Chart ---
ED Chief Complaint/HPI - Patient Information Date Seen:: 02/15/19 Time Seen:: 22:28 Chief Complaint:: needs a pic line placement History of Present Illness:: this is a chronically ill 58 yo female sent from the custodial for hospitalization and treatment for a chronic infection. she is also very uncooperative and combative. Allergies:: Allergies Allergy/AdvReac Type Severity Reaction Status Date / Time No Known Allergies Allergy Verified 02/15/19 22:14 Vitals:: Vital Signs - 8 hr 02/15/19 22:07 Temp 98.1 F HR 67 RR 18 BP 141/74 O2 Sat % 96 Historian:: Medical Records Review:: Nurse's Note Reviewed, Old Chart Reviewed, Transfer documents Reviewed ED Review of Systems - Review of Systems General/Constitutional: No fever, No chills, No weight loss, No weakness, No diaphoresis, No edema, No loss of appetite, Other (this patient is unable to give a review of systems.) Skin: No skin lesions, No rash, No bruising Head: No headache, No light-headedness Eyes: No loss of vision, No pain, No diplopia ENT: No earache, No nasal drainage, No sore throat, No tinnitus Neck: No neck pain, No swelling, No thyromegaly, No stiffness, No mass noted Cardio Vascular: No chest pain, No palpitations, No PND, No orthopnea, No edema Pulmonary: No SOB, No cough, No sputum, No wheezing GI: No nausea, No vomiting, No diarrhea, No pain, No melena, No hematochezia, No constipation, No hematemesis G/U: No dysuria, No frequency, No hematuria Musculoskeletal: No bone or joint pain, No back pain, No muscle pain Endocrine: No polyuria, No polydipsia Psychiatric: No prior psych history, No depression, No anxiety, No suicidal ideation Hematopoietic: No bruising, No lymphadenopathy Allergic/Immuno: No urticaria, No angioedema Neurological: No syncope, No focal symptoms, No weakness, No paresthesia, No headache, No seizure, No dizziness, No confusion, No vertigo ED Past Medical History - Past Medical History Past Medical History: HTN, Asthma/COPD, PUD/GERD, Other (osteomylitis, anemia) Family History: None Social History: Non Smoker, No Alcohol, No Drug Use, Care Facility Surgical History: PEG/GTube Psychiatricy History: Schizophrenia, Bipolar Family Medical History - Family Member Mother History Unknown: Yes Ethnicity: Unknown Living Status: Unknown Hx Family Cancer: No Hx Family Coronary Artery Disease: No Hx Family Congestive Heart Failure: No Hx Family Hypertension: Yes Hx Family Stroke: No Hx Family Diabetes: Yes Hx Family Seizures: No Hx Family Dementia: No Hx Family AIDS: No Hx Family HIV: No Hx Family COPD: No Hx Family Hepatitis: No Hx Family Psychiatric Problems: No Hx Family Tuberculosis: No ED Physical Exam - Physical Examination General/Constitutional: Awake, Well-developed, well-nourished, Alert, No distress, GCS 15, Non-toxic appearing, Ambulatory Other Gen/Cons comments:: non verbal fighting and combative with extreme cachexia. Head: Atraumatic Eyes: Lids, conjuctiva normal, PERRL, EOMI Skin: Nl inspection, No rash, No skin lesions, No ecchymosis, Well hydrated, No lymphadenopathy ENMT: External ears, nose nl, Nasal exam nl, Lips, teeth, gums nl Neck: Nontender, Full ROM w/o pain, No JVD, No nuchal rigidity, No bruit, No mass, No stridor Respiratory: Nl effort/Exclusion, Clear to Auscultation, No Wheeze/Rhonchi/Rales Cardio Vascular: RRR, No murmur, gallop, rubs, NL S1 S2 GI: No tenderness/rebounding/guarding, No organomegaly, No hernia, Normal BS's, Nondistended, No mass/bruits, No McBurney tenderness Other GI comments:: g-tube in place : No CVA tenderness Extremities: No tenderness or effusion, Full ROM, normal strength in all extremities, No edema, Normal digits & nails Other Extremities comments:: ALL FOUR EXTREMITIES HAVE SEVERE MUSCLE WASTING WITH THE LEFT LOWER EXTREMITY BONE TENDERNESS. Neuro/Psych: Alert/oriented, DTR's symmetric, Normal sensory exam, Normal motor strength, Judgement/insight normal, Mood normal, Normal gait, No focal deficits Other Neuro/Psych comments:: IN THE POSITION WITH SPASTIC CONTRACTURES Misc: Normal back, No paraspinal tenderness ED Assessment - Assessment General Assessment: BACK AND LEG OSTEO ED Septic Shock - . Is Septic Shock (SBP<90, OR Lactate>4 mmol\L) present?: No - <6hrs of presentation: Vital Signs: Vital Signs - 8 hr 02/15/19 22:07 Temp 98.1 F HR 67 RR 18 BP 141/74 O2 Sat % 96 ED Reassessment (Disposition) - Reassessment Reassessment Condition:: Unchanged - Diagnosis Diagnosis:: BONE INFECTION OF THE BACK AND LEFT LEG ANEMIA DEMENTIA - Patient Disposition Discharge/Transfer:: Acute Care w/in this hosp Admitted to:: Med/Surg Admitting Medical Physician:: Fanny Kearns Condition at Disposition:: Unchanged
[2019-02-15] MEDS ORDERED: Haloperidol Lactate 5 mg/mL 1mL Vial IM STA (23:03)
[2019-02-16 00:10] LABS: INR 1.13 (0.5-1.4); PROTHROMBIN TIME (TEST) 11.6 SECONDS (9.5-11.5)
[2019-02-16 00:16] LABS: % EOSINOPHILS 4.9 % (0.0-5.0); % MONOCYTES 7.4 % (2.0-10.0); % NEUTROPHILS 57.7 % (40.0-80.0); EOSINOPHILE ABSOLUTE 0.2 Th/cmm (0.1-0.4); HEMATOCRIT 33.3 % (41.0-60); HEMOGLOBIN 11.3 gm/dL (12-16); LYMPHOCYTE ABSOLUTE 1.1 Th/cmm (1.5-3.0); MEAN CELL VOLUME 94.9 fl (81-100); MEAN CORPUSCULAR HEMOGLOBIN 32.1 pg (27.0-31.0); MEAN CORPUSCULAR HGB CONC 33.8 pg (28.0-36.0); MONOCYTE ABSOLUTE 0.3 Th/cmm (0.3-1.0); NEUTROPHILE ABSOLUTE 2.1 Th/cmm (1.8-8.0); PLATELET COUNT 190 Th/cmm (150-400); RED BLOOD COUNT 3.51 Mil/cmm (3.80-5.10); RED CELL DISTRIBUTION WIDTH 14.6 % (11.5-20.0)
[2019-02-16 00:26] LABS: ALBUMIN 3.3 gm/dL (3.7-5.3); ALKALINE PHOSPHATASE 114 U/L (34-104); ANION GAP 12.8 (7.0-16.0); BILIRUBIN,TOTAL 0.6 mg/dL (0.3-1.0); BUN - UREA NITROGEN 18 mg/dL (7-25); CALCIUM SERUM 9.2 mg/dL (8.6-10.3); CARBON DIOXIDE 31.3 mEq/L (21.0-31.0); CHLORIDE 102 mEq/L (98-107); CREATININE - SERUM 0.5 mg/dL (0.6-1.2); GFR AFRICAN-AMERICAN > 60.0 ml/min (>90); GFR NON AFRICAN-AMERICAN > 60.0 ml/min; GLUCOSE 77 mg/dL (70-105); POTASSIUM SERUM 3.1 mEq/L (3.5-5.1); SGOT 26 U/L (13-39); SGPT/ALT 40 U/L (7-52); SODIUM SERUM 143 mEq/L (136-145); TOTAL PROTEIN,SERUM 6.5 gm/dL (6.0-8.3)
[2019-02-16 00:35] LABS: WHITE BLOOD COUNT 3.7 Th/cmm (4.8-10.8)
[2019-02-16] MEDS ORDERED: Potassium Chloride Elixir 20 mEq /15 mL UDC PO ONE (01:01)
[2019-02-16] MEDS ORDERED: Potassium Chloride Elixir 20 mEq /15 mL UDC ONE (01:07)
[2019-02-16] MEDS ORDERED: Magnesium Hydroxide (MOM) 30 mL UDC GT PRN (18:43)
[2019-02-16] MEDS ORDERED: Albuterol Nebulizer 2.5mg/3mL HHN PRN (18:43)
[2019-02-16] MEDS ORDERED: Maalox 30 mL Cup GT PRN (18:43)
[2019-02-16] MEDS: Albuterol Nebulizer 2.5mg/3mL HHN SCH (19:19)
[2019-02-16] MEDS ORDERED: Fleet Enema 135 mL RC PRN (20:15)
[2019-02-16] MEDS ORDERED: VANCOMYCIN HCL 500 MG IV SCH (20:15)
[2019-02-16] MEDS ORDERED: Morphine Sulfate 2 mg/mL 1mL Syr IVP PRN (20:23)
--- NOTE | 2019-02-16 20:24 | History & Physical ---
ADMIT DATE: 02/16/2019 HISTORY OF PRESENT ILLNESS: The patient is very well known to me. The patient has been here a couple of occasions. The patient is known to have history of COPD, history of laryngeal CA, status post trach, status post PEG and the patient has malnutrition. The patient has diskitis and osteomyelitis for which she was getting vancomycin IV. Apparently, she pulled out her PICC line and she was sent over here to do the PICC line and the patient complains of weakness, tremors, very agitated and anxious. PAST MEDICAL HISTORY: As enumerated above. PAST SURGICAL HISTORY: As enumerated above. The patient is losing a lot of weight, history of COPD, asthma, history of peptic ulcer disease, osteomyelitis and anemia. PHYSICAL EXAMINATION: GENERAL: The patient is very, very malnourished. HEAD: Normal. ENT: Normal. LUNGS: Bilaterally decreased. CARDIOVASCULAR SYSTEM: S1, S2 heard. ABDOMEN: Soft. Bowel sounds are heard. The patient is skin and bones. DIAGNOSES: Diskitis, osteomyelitis, anemia, malnutrition, status post trach collar. The patient is status post percutaneous endoscopic gastrostomy. PLAN: The patient is going to get the PICC line and we will continue on IV antibiotic, vancomycin. I will have Dr. Pancho Tong, ID doctor, consult. I will follow with the patient. JOB# [id number]
[2019-02-16] MEDS: INSULIN LISPRO SLIDING SCALE 100 UNITS/ML UNIT SUBQ SCH (22:04)
[2019-02-16] MEDS: Heparin Sod 5,000Units/ML 5,000 UNITS/ML VIAL SUBQ SCH (22:08)
[2019-02-16] MEDS: Morphine Sulfate 2 mg/mL 1mL Syr IVP PRN (22:38)
[2019-02-17] MEDS: Vancomycin HCl 500 MG in Sodium Chloride 0.9% 100 ML IV SCH ×4 (01:13→21:00)
[2019-02-17 05:09] LABS: % BASOPHILS 0.8 % (0.0-2.0); % EOSINOPHILS 2.6 % (0.0-5.0); % LYMPHOCYTES 17.9 % (20.0-50.0); % MONOCYTES 7.6 % (2.0-10.0); % NEUTROPHILS 71.1 % (40.0-80.0); EOSINOPHILE ABSOLUTE 0.1 Th/cmm (0.1-0.4); HEMATOCRIT 34.3 % (41.0-60); HEMOGLOBIN 11.6 gm/dL (12-16); MEAN CELL VOLUME 95.1 fl (81-100); MEAN CORPUSCULAR HEMOGLOBIN 32.3 pg (27.0-31.0); MEAN CORPUSCULAR HGB CONC 33.9 pg (28.0-36.0); MEAN PLATELET VOLUME 8.2 fl; MONOCYTE ABSOLUTE 0.4 Th/cmm (0.3-1.0); PLATELET COUNT 193 Th/cmm (150-400); RED BLOOD COUNT 3.61 Mil/cmm (3.80-5.10); RED CELL DISTRIBUTION WIDTH 14.4 % (11.5-20.0); WHITE BLOOD COUNT 5.5 Th/cmm (4.8-10.8)
[2019-02-17 05:33] LABS: ANION GAP 10.4 (7.0-16.0); BUN - UREA NITROGEN 19 mg/dL (7-25); CALCIUM SERUM 9.2 mg/dL (8.6-10.3); CHLORIDE 101 mEq/L (98-107); CREATININE - SERUM 0.5 mg/dL (0.6-1.2); GFR AFRICAN-AMERICAN > 60.0 ml/min (>90); GFR NON AFRICAN-AMERICAN > 60.0 ml/min; GLUCOSE 94 mg/dL (70-105); POTASSIUM SERUM 3.4 mEq/L (3.5-5.1); SODIUM SERUM 138 mEq/L (136-145)
[2019-02-17] MEDS: Morphine Sulfate 2 mg/mL 1mL Syr IVP PRN (06:08)
[2019-02-17] MEDS: Albuterol Nebulizer 2.5mg/3mL HHN SCH ×4 (07:26→18:47)
[2019-02-17] MEDS: Budesonide 0.5 Mg/2 mL Ud HHN SCH ×2 (07:30→18:47)
[2019-02-17] MEDS: Venelex 60gm Tube TP SCH (09:30)
[2019-02-17] MEDS: Multivitamin w/ Minerals Tab GT SCH (09:48)
[2019-02-17] MEDS: Lactobacillus Rhamnosus GG 15 Billion CFU CAP.SPRINK GT SCH (09:48)
[2019-02-17] MEDS: INSULIN LISPRO SLIDING SCALE 100 UNITS/ML UNIT SUBQ SCH (09:53)
[2019-02-17] MEDS: Heparin Sod 5,000Units/ML 5,000 UNITS/ML VIAL SUBQ SCH ×2 (09:54→22:00)
--- NOTE | 2019-02-17 12:03 | Consultation ---
Consult Note - Consult Note Service Date: 02/17/19 Referring Physician: Fanny Kearns Consult Note: PHYSICIAN Consultation Note: Date of Admission: 02/16/19 Purpose of Consultation: Chief Complaint: Patient SCOT MENA was admitted to [facility] with OSTEOMYELITIS,CENTRAL LINE PLACEMENT. History of Present Illness: 58 year old female with history of osteomyelitis of lumbar vertebrae receiving treatment, psychosis, brought to the Ed for noncooperation and aggressive behaviour. Mid line was placed in and ID consult was called for antibiotic management. Past Medical History: Anemia, dementia, dysphagia, Protein calorie malnutrition. Diagnoses ANEMIA, UNSPECIFIED (02/16/19) UNSPECIFIED PROTEIN-CALORIE MALNUTRITION (02/16/19) DISCITIS, UNSPECIFIED, SITE UNSPECIFIED (02/16/19) OSTEOMYELITIS, UNSPECIFIED (02/16/19) WEAKNESS (02/16/19) Allergies Allergy/AdvReac Type Severity Reaction Status Date / Time No Known Allergies Allergy Verified 02/15/19 22:14 Vital Signs Temp 98 F 02/17/19 11:43 Pulse 70 02/17/19 11:43 Resp 20 02/17/19 11:43 BP 151/95 02/17/19 11:43 Pulse Ox 98 02/17/19 11:43 Intake & Output 02/16/19 02/17/19 02/17/19 18:59 06:59 18:59 Intake Total 920 1020 Balance 920 1020 Weight (lbs) 36.423 kg 36.741 kg 36.741 kg Intake: Intake, IV Amount 100 Vancomycin HCl 500 mg In 100 Sodium Chloride 0.9% 100 ml @ 100 mls/hr IV Q8HR [facility] Rx#:[id number] Tube Feeding 720 720 Other 200 200 Other: # Voids 3 3 # Bowel Movements 0 0 Stool Characteristics Soft Formed Weight Source Bedscale Bedscale Bedscale Laboratory Results - last 24 hr 02/16/19 02/16/19 02/17/19 21:15 22:03 00:44 WBC RBC Hgb Hct MCV MCH MCHC Differential RDW Plt Count MPV Neutrophils % Lymphocytes % Monocytes % Eosinophils % Basophils % Sodium Potassium Chloride Carbon Dioxide Anion Gap BUN Creatinine Est GFR ( Amer) Est GFR (Non-Af Amer) BUN/Creatinine Ratio Glucose POC Glucose 54 L 71 Calcium Random Vancomycin 4.7 L 02/17/19 02/17/19 02/17/19 04:35 04:35 06:14 WBC 5.5 RBC 3.61 L Hgb 11.6 L Hct 34.3 L MCV 95.1 MCH 32.3 H MCHC Differential 33.9 RDW 14.4 Plt Count 193 MPV 8.2 Neutrophils % 71.1 Lymphocytes % 17.9 L Monocytes % 7.6 Eosinophils % 2.6 Basophils % 0.8 Sodium 138 Potassium 3.4 L Chloride 101 Carbon Dioxide 30.0 Anion Gap 10.4 BUN 19 Creatinine 0.5 L Est GFR ( Amer) > 60.0 Est GFR (Non-Af Amer) > 60.0 BUN/Creatinine Ratio 38.0 Glucose 94 POC Glucose 71 Calcium 9.2 Random Vancomycin Home Medication Medication Instructions Recorded Type Albuterol Nebulizer 2.5mg/3mL 2.5 mg NEB Q2H PRN 11/17/18 History [Albuterol Neb UD*] Ascorbic Acid [Vitamin C] 500 mg GT Q12HR 11/17/18 History Carvedilol [Coreg] 6.25 mg GT Q12H 11/17/18 History Docusate Sodium [Colace] 200 mg GT Q12H PRN 11/17/18 History Lorazepam [Ativan] 1 mg GT Q6H PRN 11/17/18 History Magnesium Oxide 400 mg GT BID 11/17/18 History Multivitamin w/ Minerals 1 tab GT DAILY 11/17/18 History [Theragran M] Budesonide [Pulmicort] 0.5 mg HHN BID 01/02/19 History Ferrous Sulfate [Iron] 7.5 ml GT DAILY 01/02/19 History Pantoprazole [Protonix] 40 mg GT DAILY 01/02/19 History Acetaminophen [Tylenol] 650 mg GT Q6H PRN tab 01/17/19 Rx Albuterol Nebulizer 2.5mg/3mL 2.5 mg HHN Q2HR PRN each 01/17/19 Rx [Albuterol Neb UD*] Albuterol Nebulizer 2.5mg/3mL 2.5 mg HHN [id number] each 01/17/19 Rx [Albuterol Neb UD*] Balsam [place] Oil [Venelex] 1 appl TP DAILY appl 01/17/19 Rx GLUCAGON HCl [Glucagen] 1 mg IM PRN PRN kit 01/17/19 Rx Heparin Sodium [Heparin*] 5,000 units SUBQ Q12H vial 01/17/19 Rx Vancomycin HCl [Vancomycin] 500 mg IV Q8H vial 01/17/19 Rx Bisacodyl [Dulcolax 10 Mg Supp] 10 mg RC DAILY PRN 01/23/19 History Fleet Enema 135 ml RC Q48HR PRN 01/23/19 History Insulin Lispro Sliding Scale See Protocol SUBQ Q12HR 01/23/19 History [humaLOG INSULIN SLIDING SCALE] Magnesium Hydroxide [Milk of 30 ml GT HS PRN 01/23/19 History Magnesia] Lactobacillus Rhamnosus GG 15B 1 each GT DAILY 02/15/19 History [Culturelle 15B] Mag Hydrox/Al Hydrox/Simeth 30 ml GT Q6HR PRN 02/15/19 History [[place] 355 ml] Current Medications Generic Name Dose Route Start Last Admin Trade Name Freq PRN Reason Stop Dose Admin Acetaminophen 650 mg 02/16/19 18:43 Tylenol GT 04/17/19 18:42 Q6H PRN mild pain Acetaminophen/Hydrocodone Bitart 1 tab 02/16/19 20:21 [place] 10 Mg/325 Mg PO 04/17/19 20:20 Q6H PRN Pain (Moderate) Al Hydrox/Mg Hydrox/Simethicone 30 ml 02/16/19 18:43 Maalox GT 04/17/19 18:42 Q6HR PRN GI DISTRESS Albuterol Sulfate 2.5 mg 02/16/19 18:43 Albuterol 2.5mg/3ml Neb Ud HHN 04/17/19 18:42 Q2HR PRN Shortness of Breath Albuterol Sulfate 2.5 mg 02/16/19 19:00 02/17/19 11:15 Albuterol 2.5mg/3ml Neb Ud HHN 04/17/19 18:59 2.5 mg [id number] MADHURI Administration Ascorbic Acid 500 mg 02/16/19 21:00 02/17/19 09:48 Vitamin C GT 04/17/19 20:59 500 mg Q12HR MADHURI Administration Bisacodyl 10 mg 02/16/19 20:15 Dulcolax 10 Mg Supp RC 04/17/19 20:14 DAILY PRN Constipation Budesonide 0.5 mg 02/17/19 07:00 02/17/19 07:30 Pulmicort HHN 04/18/19 06:59 0.5 mg BIDRT MADHURI Administration Carvedilol 6.25 mg 02/16/19 22:00 02/17/19 09:48 Coreg GT 04/17/19 21:59 6.25 mg Q12H MADHURI Administration [place] Oil/[place]iss Balsam/Trypsin 1 appl 02/17/19 09:00 02/17/19 09:30 Venelex TP 04/18/19 08:59 1 appl DAILY MADHURI Administration Docusate Sodium 200 mg 02/16/19 20:15 Colace GT 04/17/19 20:14 Q12H PRN Constipation Glucagon 1 mg 02/16/19 20:15 Glucagen IM 04/17/19 20:14 PRN PRN Blood Glucose less than 70 Heparin Sodium (Porcine) 5,000 units 02/16/19 22:00 02/17/19 09:54 Heparin SUBQ 04/17/19 21:59 5,000 units Q12H MADHURI Administration Vancomycin HCl 500 mg/ Sodium 100 mls @ 100 mls/hr 02/17/19 00:00 02/17/19 06 :05 Chloride IV 04/18/19 00:00 100 mls/hr Q8HR MADHURI Administration Insulin Human Lispro 0 units 02/16/19 21:00 02/17/19 09:53 Humalog Insulin Sliding Scale SUBQ 04/17/19 20:59 Not Given Q12HR MADHURI Protocol Lactobacillus Rhamnosus 1 each 02/17/19 09:00 02/17/19 09:48 Culturelle 15b GT 04/18/19 08:59 1 each DAILY MADHURI Administration Lorazepam 1 mg 02/16/19 02:50 02/16/19 20:21 Ativan IM 04/17/19 02:49 1 mg Q6HR PRN Administration Agitation Protocol Magnesium Hydroxide 30 ml 02/16/19 18:43 Milk Of Magnesia GT 04/17/19 18:42 HS PRN Constipation Magnesium Oxide 400 mg 02/17/19 09:00 02/17/19 09:48 Mag-Oxide GT 04/18/19 08:59 400 mg BID MADHURI Administration Miscellaneous 1 ea 02/17/19 09:00 Vancomycin Iv Per Pharmacy 04/18/19 08:59 DAILY MADHURI Morphine Sulfate 2 mg 02/16/19 20:24 02/17/19 06:08 Morphine IVP 04/17/19 20:22 2 mg Q4HR PRN Administration Pain (Severe) Sodium Phosphate 135 ml 02/16/19 20:15 Fleet Enema RC 04/17/19 20:14 Q48HR PRN Constipation Review of Systems: Poor historian. Social History lives at SNF, no history of smoking, alcohol or drug use. Family Medical History Not known. Physical Exam: General: comfortable, cachectic. not in distress. HEENT: HEADL NC NT. ORAL CAVITY: Moist, pink tongue. EYES: Pallor present, no icterus. Pupil PERRLA. Neck: Supple, no JVD, no Carotid bruit. No use of accessory neck muscle use. Cardio: S1 and S2 WNL. No murmur, no gallop. Respiratory: CTAP Abdominal: Soft NT ND BS present. Genital/Urinary: deferred Extremities: NCCE Neurological: Alert and awake. Assessment: 1. MRSA sepsis. treated 2. discitis/osteomyelitis of lumbar spine. 3. Dementia. 4. Dysphagia requiring G-tube placement, but she has pulled out G-tube 3 times already. 5. Dementia. 6. Protein-calorie malnutrition and failure to thrive. 7. Psychosis. 8. Chronic obstructive pulmonary disease. 9. Leukopenia. Plan: Continue vanco iv to keep trough level 12 - 20. ( End date: 04/02/2019). Thank you, Dr Kearns for invovling me in taking care of this patient. Signed, Pancho Tong M.D. 158
--- NOTE | 2019-02-17 20:17 | Internal Medicine Prog Note ---
Internal Medicine Subjective - Subjective Service Date: 02/17/19 Patient seen and examined:: with staff Patient is:: awake, agitated, other (combative.) Patient Complaints of:: other (Weight loss.) Per staff patient has:: no adverse event, no episodes of fall, agitated, combative Internal Medicine Objective - Results Result Diagrams: 02/17/19 04:35 02/17/19 04:35 Recent Labs: Laboratory Last Values WBC 5.5 Th/cmm (4.8-10.8) 02/17/19 04:35 RBC 3.61 Mil/cmm (3.80-5.10) L 02/17/19 04:35 Hgb 11.6 gm/dL (12-16) L 02/17/19 04:35 Hct 34.3 % (41.0-60) L 02/17/19 04:35 MCV 95.1 fl (81-100) 02/17/19 04:35 MCH 32.3 pg (27.0-31.0) H 02/17/19 04:35 MCHC Differential 33.9 pg (28.0-36.0) 02/17/19 04:35 RDW 14.4 % (11.5-20.0) 02/17/19 04:35 Plt Count 193 Th/cmm (150-400) 02/17/19 04:35 MPV 8.2 fl 02/17/19 04:35 Neutrophils % 71.1 % (40.0-80.0) 02/17/19 04:35 Lymphocytes % 17.9 % (20.0-50.0) L 02/17/19 04:35 Monocytes % 7.6 % (2.0-10.0) 02/17/19 04:35 Eosinophils % 2.6 % (0.0-5.0) 02/17/19 04:35 Basophils % 0.8 % (0.0-2.0) 02/17/19 04:35 PT 11.6 SECONDS (9.5-11.5) H 02/15/19 23:40 INR 1.13 (0.5-1.4) 02/15/19 23:40 PTT (Actin FS) 44.0 SECONDS (26.0-38.0) H 02/15/19 23:40 Sodium 138 mEq/L (136-145) 02/17/19 04:35 Potassium 3.4 mEq/L (3.5-5.1) L 02/17/19 04:35 Chloride 101 mEq/L (98-107) 02/17/19 04:35 Carbon Dioxide 30.0 mEq/L (21.0-31.0) 02/17/19 04:35 Anion Gap 10.4 (7.0-16.0) 02/17/19 04:35 BUN 19 mg/dL (7-25) 02/17/19 04:35 Creatinine 0.5 mg/dL (0.6-1.2) L 02/17/19 04:35 Est GFR ( Amer) > 60.0 ml/min (>90) 02/17/19 04:35 Est GFR (Non-Af Amer) > 60.0 ml/min 02/17/19 04:35 BUN/Creatinine Ratio 38.0 02/17/19 04:35 Glucose 94 mg/dL (70-105) 02/17/19 04:35 POC Glucose 71 MG/DL (70 - 105) 02/17/19 06:14 Whole Bld Lactic Acid 0.56 mmol/L (0.60-1.99) L 02/16/19 00:00 Calcium 9.2 mg/dL (8.6-10.3) 02/17/19 04:35 Total Bilirubin 0.6 mg/dL (0.3-1.0) 02/15/19 23:40 AST 26 U/L (13-39) 02/15/19 23:40 ALT 40 U/L (7-52) 02/15/19 23:40 Alkaline Phosphatase 114 U/L (34-104) H 02/15/19 23:40 Troponin I 0.01 ng/mL (0.01-0.05) 02/15/19 23:40 Total Protein 6.5 gm/dL (6.0-8.3) 02/15/19 23:40 Albumin 3.3 gm/dL (3.7-5.3) L 02/15/19 23:40 Globulin 3.2 gm/dL 02/15/19 23:40 Albumin/Globulin Ratio 1.0 (1.0-1.8) 02/15/19 23:40 TSH 4.06 uIU/ml (0.34-5.60) 02/15/19 23:40 Random Vancomycin 4.7 ug/mL (5.0-40.0) L 02/16/19 21:15 - Physical Exam Vitals and I&O: Vital Signs Temp 98.2 F 02/17/19 15:40 Pulse 72 02/17/19 15:40 Resp 18 02/17/19 18:47 BP 138/87 02/17/19 15:40 Pulse Ox 97 02/17/19 15:40 Intake & Output 02/17/19 02/17/19 02/18/19 06:59 18:59 06:59 Intake Total 1020 100 Balance 1020 100 Weight (lbs) 36.741 kg 36.741 kg Intake: Intake, IV Amount 100 100 Vancomycin HCl 500 mg In 100 100 Sodium Chloride 0.9% 100 ml @ 100 mls/hr IV Q8HR [facility] Rx#:[id number] Tube Feeding 720 Other 200 Other: # Voids 3 # Bowel Movements 0 Weight Source Bedscale Bedscale Active Medications: Current Medications Acetaminophen (Tylenol) 650 mg GT Q6H PRN PRN Reason: mild pain Stop: 04/17/19 18:42 Acetaminophen/Hydrocodone Bitart ([place] 10 Mg/325 Mg) 1 tab PO Q6H PRN PRN Reason: Pain (Moderate) Stop: 04/17/19 20:20 Al Hydrox/Mg Hydrox/Simethicone (Maalox) 30 ml GT Q6HR PRN PRN Reason: GI DISTRESS Stop: 04/17/19 18:42 Albuterol Sulfate (Albuterol 2.5mg/3ml Neb Ud) 2.5 mg HHN Q2HR PRN PRN Reason: Shortness of Breath Stop: 04/17/19 18:42 Albuterol Sulfate (Albuterol 2.5mg/3ml Neb Ud) 2.5 mg HHN [id number] [facility] Stop: 04/17/19 18:59 Last Admin: 02/17/19 18:47 Dose: 2.5 mg Ascorbic Acid (Vitamin C) 500 mg GT Q12HR [facility] Stop: 04/17/19 20:59 Last Admin: 02/17/19 09:48 Dose: 500 mg Bisacodyl (Dulcolax 10 Mg Supp) 10 mg RC DAILY PRN PRN Reason: Constipation Stop: 04/17/19 20:14 Budesonide (Pulmicort) 0.5 mg HHN BIDRT MADHURI Stop: 04/18/19 06:59 Last Admin: 02/17/19 18:47 Dose: 0.5 mg Carvedilol (Coreg) 6.25 mg GT Q12H MADHURI Stop: 04/17/19 21:59 Last Admin: 02/17/19 09:48 Dose: 6.25 mg [place] Oil/[place] Balsam/Trypsin (Venelex) 1 appl TP DAILY MADHURI Stop: 04/18/19 08:59 Last Admin: 02/17/19 09:30 Dose: 1 appl Docusate Sodium (Colace) 200 mg GT Q12H PRN PRN Reason: Constipation Stop: 04/17/19 20:14 Glucagon (Glucagen) 1 mg IM PRN PRN PRN Reason: Blood Glucose less than 70 Stop: 04/17/19 20:14 Heparin Sodium (Porcine) (Heparin) 5,000 units SUBQ Q12H MADHURI Stop: 04/17/19 21:59 Last Admin: 02/17/19 09:54 Dose: 5,000 units Vancomycin HCl 500 mg/ Sodium (Chloride) 100 mls @ 100 mls/hr IV Q8HR MADHURI Stop: 04/18/19 00:00 Last Admin: 02/17/19 13:50 Dose: 100 mls/hr Insulin Human Lispro (Humalog Insulin Sliding Scale) 0 units SUBQ Q12HR MADHURI; Protocol Stop: 04/17/19 20:59 Last Admin: 02/17/19 09:53 Dose: Not Given Lactobacillus Rhamnosus (Culturelle 15b) 1 each GT DAILY MADHURI Stop: 04/18/19 08:59 Last Admin: 02/17/19 09:48 Dose: 1 each Lorazepam (Ativan) 1 mg IM Q6HR PRN; Protocol PRN Reason: Agitation Stop: 04/17/19 02:49 Last Admin: 02/16/19 20:21 Dose: 1 mg Magnesium Hydroxide (Milk Of Magnesia) 30 ml GT HS PRN PRN Reason: Constipation Stop: 04/17/19 18:42 Magnesium Oxide (Mag-Oxide) 400 mg GT BID MADHURI Stop: 04/18/19 08:59 Last Admin: 02/17/19 16:51 Dose: 400 mg Miscellaneous (Vancomycin Iv Per Pharmacy) 1 ea MC DAILY MADHURI Stop: 04/18/19 08:59 Morphine Sulfate (Morphine) 2 mg IVP Q4HR PRN PRN Reason: Pain (Severe) Stop: 04/17/19 20:22 Last Admin: 02/17/19 06:08 Dose: 2 mg Sodium Phosphate (Fleet Enema) 135 ml RC Q48HR PRN PRN Reason: Constipation Stop: 04/17/19 20:14 Physical Exam: 58 y/ female patient has been very combative and uncooperative. General: weak, demented HEENT: NC/AT, PERRLA Neck: Supple, No JVD Lungs: CTAB Cardiovascular: RRR, Normal S1 Abdomen: soft, non-tender Extremities: clear Neurological: no change - Procedures Procedures: Procedures Procedure Code Date INSERTION OF FEEDING DEVICE INTO STOMACH, PERC APPROACH [id number] 01/02/19 INSERTION OF INFUSION DEVICE INTO R LOW ARM, PERC APPROACH [id number] 01/02/19 INTRODUCTION OF NUTRITIONAL INTO PERIPH VEIN, PERC APPROACH [id number] 01/02/19 RESPIRATORY VENTILATION, LESS THAN 24 CONSECUTIVE HOURS [id number] 04/07/18 Internal Medicine Assmt/Plan - Assessment Assessment: Diskitis. Osteomyelitis. Anemia. Malnutrition. S/p Trach collar. S/p Percutaneous Endoscopic gastrostomy. Combative. - Plan Plan: Continuation of care Continue present meds as directed Monitor Vitals, Labs and Pain management Fall precaution Continue present care management Nutritional Asmnt/Malnutr-PDOC - Dietary Evaluation Malnutrition Findings (Please click <Entered> for more info): Nutritional Asmnt/Malnutrition Start: 02/17/19 17: 23 Text: Status: Complete Freq: Protocol: Document 02/17/19 17:23 LCHENG (Rec: 02/17/19 17:28 [email or web address] [id number]) Nutritional Asmnt/Malnutrition Patient General Information Nutritional Screening High Risk Consult Diagnosis osteomyelitis, central line placement Pertinent Medical Hx/Surgical Hx HTN, asthma/COPD, PUD/GERd, osteomylitis, anemia, PEG/ Gtube, schizophrenia, bipolar Subjective Information Consult received for ricky 12 and open wound. Pt seen resting in bed at time of visit. TF off at this time. Current Diet Order/ Nutrition Support Glucerna 1.2 at 60ml/hr x 20hr Pertinent Medications vit C, colace, heperin, humalog, culturelle, mag-oxide , vancomycin Pertinent Labs 02/17 K 3.4, Cr 0.5, glucose 94 Nutritional Hx/Data Height 1.65 m Height (Calculated Centimeters) 165.1 Current Weight (lbs) 36.741 kg Weight (Calculated Kilograms) 36.7 Weight (Calculated Grams) 57114.0 [place] Body Weight 125 Body Mass Index (BMI) 13.4 Weight Status Underweight GI Symptoms GI Symptoms None Last BM none Difficult in: None Skin Integrity/Comment: left foot and bilat arms bruises pressure area Complex - Includes bone to sacrum, skin tear to right foot ricky 12 Estimated Nutritional Goals Calories/Kcals/Kg 25-30 Kcals Calculated 5859-9870 Protein g/k.2-1.4 Protein Calculated 68-80 Fluid: ml 1425-1710ml (1ml/kcal) Nutritional Problem 1. Problem Problem increased nutrition needs Etiology impaired skin integrity Signs/Symptoms: open wound to sacrum Intervention/Recommendation Comments 1. Continue with current TF regimen with Glucerna 1.2 at 60ml/hr x 20hr. It provides 1440kcal, 72g protein, 966ml free water, meeting 100% of nutritional needs. Add Sadi BID for wound healing. 2. Monitor TF rate, tolerance, wt, skin integrity and labs 3. F/U as high risk in 2-3 days Expected Outcomes/Goals Expected Outcomes/Goals 1. Pt to meet at least 90% of nutritional needs via nutrition support with tolerance 2. Wt stability, skin to remain intact, labs to approach WNL.
[2019-02-18] MEDS: INSULIN LISPRO SLIDING SCALE 100 UNITS/ML UNIT SUBQ SCH ×3 (01:22→20:44)
[2019-02-18] MEDS: Vancomycin HCl 500 MG in Sodium Chloride 0.9% 100 ML IV SCH ×3 (04:33→20:26)
[2019-02-18] MEDS: Albuterol Nebulizer 2.5mg/3mL HHN SCH ×4 (07:26→19:44)
[2019-02-18] MEDS: Budesonide 0.5 Mg/2 mL Ud HHN SCH ×2 (07:32→19:44)
[2019-02-18] MEDS: Multivitamin w/ Minerals Tab GT SCH (09:08)
[2019-02-18] MEDS: Lactobacillus Rhamnosus GG 15 Billion CFU CAP.SPRINK GT SCH (09:08)
[2019-02-18] MEDS: Heparin Sod 5,000Units/ML 5,000 UNITS/ML VIAL SUBQ SCH ×2 (09:09→21:20)
--- NOTE | 2019-02-18 11:54 | Infectious Disease Prog Note ---
Infectious Disease Subjective - Review of Systems Service Date: 02/18/19 Subjective: There is no new change, no fever./ Infectious Disease Objective - Results Result Diagrams: 02/17/19 04:35 02/17/19 04:35 Recent Labs: Laboratory Last Values WBC 5.5 Th/cmm (4.8-10.8) 02/17/19 04:35 RBC 3.61 Mil/cmm (3.80-5.10) L 02/17/19 04:35 Hgb 11.6 gm/dL (12-16) L 02/17/19 04:35 Hct 34.3 % (41.0-60) L 02/17/19 04:35 MCV 95.1 fl (81-100) 02/17/19 04:35 MCH 32.3 pg (27.0-31.0) H 02/17/19 04:35 MCHC Differential 33.9 pg (28.0-36.0) 02/17/19 04:35 RDW 14.4 % (11.5-20.0) 02/17/19 04:35 Plt Count 193 Th/cmm (150-400) 02/17/19 04:35 MPV 8.2 fl 02/17/19 04:35 Neutrophils % 71.1 % (40.0-80.0) 02/17/19 04:35 Lymphocytes % 17.9 % (20.0-50.0) L 02/17/19 04:35 Monocytes % 7.6 % (2.0-10.0) 02/17/19 04:35 Eosinophils % 2.6 % (0.0-5.0) 02/17/19 04:35 Basophils % 0.8 % (0.0-2.0) 02/17/19 04:35 PT 11.6 SECONDS (9.5-11.5) H 02/15/19 23:40 INR 1.13 (0.5-1.4) 02/15/19 23:40 PTT (Actin FS) 44.0 SECONDS (26.0-38.0) H 02/15/19 23:40 Sodium 138 mEq/L (136-145) 02/17/19 04:35 Potassium 3.4 mEq/L (3.5-5.1) L 02/17/19 04:35 Chloride 101 mEq/L (98-107) 02/17/19 04:35 Carbon Dioxide 30.0 mEq/L (21.0-31.0) 02/17/19 04:35 Anion Gap 10.4 (7.0-16.0) 02/17/19 04:35 BUN 19 mg/dL (7-25) 02/17/19 04:35 Creatinine 0.5 mg/dL (0.6-1.2) L 02/17/19 04:35 Est GFR ( Amer) > 60.0 ml/min (>90) 02/17/19 04:35 Est GFR (Non-Af Amer) > 60.0 ml/min 02/17/19 04:35 BUN/Creatinine Ratio 38.0 02/17/19 04:35 Glucose 94 mg/dL (70-105) 02/17/19 04:35 POC Glucose 89 MG/DL (70 - 105) 02/18/19 09:45 Whole Bld Lactic Acid 0.56 mmol/L (0.60-1.99) L 02/16/19 00:00 Calcium 9.2 mg/dL (8.6-10.3) 02/17/19 04:35 Total Bilirubin 0.6 mg/dL (0.3-1.0) 02/15/19 23:40 AST 26 U/L (13-39) 02/15/19 23:40 ALT 40 U/L (7-52) 02/15/19 23:40 Alkaline Phosphatase 114 U/L (34-104) H 02/15/19 23:40 Troponin I 0.01 ng/mL (0.01-0.05) 02/15/19 23:40 Total Protein 6.5 gm/dL (6.0-8.3) 02/15/19 23:40 Albumin 3.3 gm/dL (3.7-5.3) L 02/15/19 23:40 Globulin 3.2 gm/dL 02/15/19 23:40 Albumin/Globulin Ratio 1.0 (1.0-1.8) 02/15/19 23:40 TSH 4.06 uIU/ml (0.34-5.60) 02/15/19 23:40 Vancomycin Trough 19.5 ug/mL (5-10) H 02/18/19 06:00 Random Vancomycin 4.7 ug/mL (5.0-40.0) L 02/16/19 21:15 - Physical Exam Vitals and I&O: Vital Signs Temp 97.1 F 02/18/19 09:00 Pulse 72 02/18/19 11:36 Resp 18 02/18/19 11:50 BP 137/90 02/18/19 09:08 Pulse Ox 98 02/18/19 11:36 Intake & Output 02/17/19 02/18/19 02/18/19 18:59 06:59 18:59 Intake Total 200 1200 Balance 200 1200 Weight (lbs) 36.741 kg 36.741 kg Intake: Intake, IV Amount 200 100 Vancomycin HCl 500 mg In 200 100 Sodium Chloride 0.9% 100 ml @ 100 mls/hr IV Q8HR [facility] Rx#:[id number] Tube Feeding 860 Other 240 Other: # Voids 4 # Bowel Movements 2 Stool Characteristics Soft Weight Source Bedscale Estimated Active Medications: Current Medications Acetaminophen (Tylenol) 650 mg GT Q6H PRN PRN Reason: mild pain Stop: 04/17/19 18:42 Last Admin: 02/18/19 09:07 Dose: 650 mg Acetaminophen/Hydrocodone Bitart ([place] 10 Mg/325 Mg) 1 tab PO Q6H PRN PRN Reason: Pain (Moderate) Stop: 04/17/19 20:20 Al Hydrox/Mg Hydrox/Simethicone (Maalox) 30 ml GT Q6HR PRN PRN Reason: GI DISTRESS Stop: 04/17/19 18:42 Albuterol Sulfate (Albuterol 2.5mg/3ml Neb Ud) 2.5 mg HHN Q2HR PRN PRN Reason: Shortness of Breath Stop: 04/17/19 18:42 Albuterol Sulfate (Albuterol 2.5mg/3ml Neb Ud) 2.5 mg HHN [id number] [facility] Stop: 04/17/19 18:59 Last Admin: 02/18/19 11:36 Dose: 2.5 mg Ascorbic Acid (Vitamin C) 500 mg GT Q12HR [facility] Stop: 04/17/19 20:59 Last Admin: 02/18/19 09:08 Dose: 500 mg Bisacodyl (Dulcolax 10 Mg Supp) 10 mg RC DAILY PRN PRN Reason: Constipation Stop: 04/17/19 20:14 Budesonide (Pulmicort) 0.5 mg HHN BIDRT MADHURI Stop: 04/18/19 06:59 Last Admin: 02/18/19 07:32 Dose: 0.5 mg Carvedilol (Coreg) 6.25 mg GT Q12H MADHURI Stop: 04/17/19 21:59 Last Admin: 02/18/19 09:08 Dose: 6.25 mg [place] Oil/[place] Balsam/Trypsin (Venelex) 1 appl TP DAILY MADHURI Stop: 04/18/19 08:59 Last Admin: 02/17/19 09:30 Dose: 1 appl Docusate Sodium (Colace) 200 mg GT Q12H PRN PRN Reason: Constipation Stop: 04/17/19 20:14 Glucagon (Glucagen) 1 mg IM PRN PRN PRN Reason: Blood Glucose less than 70 Stop: 04/17/19 20:14 Heparin Sodium (Porcine) (Heparin) 5,000 units SUBQ Q12H MADHURI Stop: 04/17/19 21:59 Last Admin: 02/18/19 09:09 Dose: 5,000 units Vancomycin HCl 500 mg/ Sodium (Chloride) 100 mls @ 100 mls/hr IV Q8HR MADHURI Stop: 04/18/19 00:00 Last Admin: 02/18/19 04:33 Dose: 100 mls/hr Insulin Human Lispro (Humalog Insulin Sliding Scale) 0 units SUBQ Q12HR MADHURI; Protocol Stop: 04/17/19 20:59 Last Admin: 02/18/19 09:57 Dose: Not Given Lactobacillus Rhamnosus (Culturelle 15b) 1 each GT DAILY MADHURI Stop: 04/18/19 08:59 Last Admin: 02/18/19 09:08 Dose: 1 each Lorazepam (Ativan) 1 mg IM Q6HR PRN; Protocol PRN Reason: Agitation Stop: 04/17/19 02:49 Last Admin: 02/17/19 23:56 Dose: 1 mg Magnesium Hydroxide (Milk Of Magnesia) 30 ml GT HS PRN PRN Reason: Constipation Stop: 04/17/19 18:42 Magnesium Oxide (Mag-Oxide) 400 mg GT BID MADHURI Stop: 04/18/19 08:59 Last Admin: 04/23/19 09:08 Dose: 400 mg Miscellaneous (Vancomycin Iv Per Pharmacy) 1 ea MC DAILY MADHURI Stop: 04/18/19 08:59 Morphine Sulfate (Morphine) 2 mg IVP Q4HR PRN PRN Reason: Pain (Severe) Stop: 04/17/19 20:22 Last Admin: 02/17/19 06:08 Dose: 2 mg Sodium Phosphate (Fleet Enema) 135 ml RC Q48HR PRN PRN Reason: Constipation Stop: 04/17/19 20:14 General: no acute distress, cachectic HEENT: atraumatic, normocephalic, PERRLA, EOMI Neck: supple, no thyromegaly Cardiovascular: S1S2, regular Lungs: clear to auscultation bilaterally, clear to percussion Abdomen: soft, bowel sounds, no tender, no distended - Procedures Procedures: Procedures Procedure Code Date INSERTION OF FEEDING DEVICE INTO STOMACH, PERC APPROACH [id number] 01/02/19 INSERTION OF INFUSION DEVICE INTO R LOW ARM, PERC APPROACH [id number] 01/02/19 INTRODUCTION OF NUTRITIONAL INTO PERIPH VEIN, PERC APPROACH [id number] 01/02/19 RESPIRATORY VENTILATION, LESS THAN 24 CONSECUTIVE HOURS [id number] 04/07/18 Infectious Disease Assmt/Plan - Assessment Assessment: 1. MRSA sepsis. treated 2. discitis/osteomyelitis of lumbar spine. 3. Dementia. 4. Dysphagia requiring G-tube placement, but she has pulled out G-tube 3 times already. 5. Dementia. 6. Protein-calorie malnutrition and failure to thrive. 7. Psychosis. 8. Chronic obstructive pulmonary disease. 9. Leukopenia. - Plan Plan: Continue vanco iv to keep trough level 12 - 20. ( End date: 04/02/2019). Nutritional Asmnt/Malnutr-PDOC - Dietary Evaluation Malnutrition Findings (Please click <Entered> for more info): Nutritional Asmnt/Malnutrition Start: 02/17/19 17: 23 Text: Status: Complete Freq: Protocol: Document 02/17/19 17:23 LCHENG (Rec: 02/17/19 17:28 [email or web address]) Nutritional Asmnt/Malnutrition Patient General Information Nutritional Screening High Risk Consult Diagnosis osteomyelitis, central line placement Pertinent Medical Hx/Surgical Hx HTN, asthma/COPD, PUD/GERd, osteomylitis, anemia, PEG/ Gtube, schizophrenia, bipolar Subjective Information Consult received for ricky 12 and open wound. Pt seen resting in bed at time of visit. TF off at this time. Current Diet Order/ Nutrition Support Glucerna 1.2 at 60ml/hr x 20hr Pertinent Medications vit C, colace, heperin, humalog, culturelle, mag-oxide , vancomycin Pertinent Labs 02/17 K 3.4, Cr 0.5, glucose 94 Nutritional Hx/Data Height 1.65 m Height (Calculated Centimeters) 165.1 Current Weight (lbs) 36.741 kg Weight (Calculated Kilograms) 36.7 Weight (Calculated Grams) 33849.0 [place] Body Weight 125 Body Mass Index (BMI) 13.4 Weight Status Underweight GI Symptoms GI Symptoms None Last BM none Difficult in: None Skin Integrity/Comment: left foot and bilat arms bruises pressure area Complex - Includes bone to sacrum, skin tear to right foot ricky 12 Estimated Nutritional Goals Calories/Kcals/Kg 25-30 Kcals Calculated 2182-2289 Protein g/k.2-1.4 Protein Calculated 68-80 Fluid: ml 1425-1710ml (1ml/kcal) Nutritional Problem 1. Problem Problem increased nutrition needs Etiology impaired skin integrity Signs/Symptoms: open wound to sacrum Intervention/Recommendation Comments 1. Continue with current TF regimen with Glucerna 1.2 at 60ml/hr x 20hr. It provides 1440kcal, 72g protein, 966ml free water, meeting 100% of nutritional needs. Add Sadi BID for wound healing. 2. Monitor TF rate, tolerance, wt, skin integrity and labs 3. F/U as high risk in 2-3 days Expected Outcomes/Goals Expected Outcomes/Goals 1. Pt to meet at least 90% of nutritional needs via nutrition support with tolerance 2. Wt stability, skin to remain intact, labs to approach WNL.
[2019-02-18] MEDS: Venelex 60gm Tube TP SCH (12:56)
[2019-02-19] MEDS: Vancomycin HCl 500 MG in Sodium Chloride 0.9% 100 ML IV SCH ×4 (04:21→21:07)
[2019-02-19 05:34] LABS: % BASOPHILS 0.6 % (0.0-2.0); % EOSINOPHILS 2.3 % (0.0-5.0); % LYMPHOCYTES 20.3 % (20.0-50.0); % MONOCYTES 6.9 % (2.0-10.0); % NEUTROPHILS 69.9 % (40.0-80.0); EOSINOPHILE ABSOLUTE 0.1 Th/cmm (0.1-0.4); HEMATOCRIT 32.7 % (41.0-60); HEMOGLOBIN 11.1 gm/dL (12-16); LYMPHOCYTE ABSOLUTE 1.2 Th/cmm (1.5-3.0); MEAN CORPUSCULAR HEMOGLOBIN 32.3 pg (27.0-31.0); MEAN PLATELET VOLUME 8.5 fl; MONOCYTE ABSOLUTE 0.4 Th/cmm (0.3-1.0); PLATELET COUNT 180 Th/cmm (150-400); RED BLOOD COUNT 3.44 Mil/cmm (3.80-5.10); RED CELL DISTRIBUTION WIDTH 14.2 % (11.5-20.0); WHITE BLOOD COUNT 5.7 Th/cmm (4.8-10.8)
[2019-02-19 05:42] LABS: BUN - UREA NITROGEN 19 mg/dL (7-25); CALCIUM SERUM 9.3 mg/dL (8.6-10.3); CARBON DIOXIDE 30.5 mEq/L (21.0-31.0); CHLORIDE 103 mEq/L (98-107); CREATININE - SERUM 0.6 mg/dL (0.6-1.2); GFR AFRICAN-AMERICAN > 60.0 ml/min (>90); GFR NON AFRICAN-AMERICAN > 60.0 ml/min; GLUCOSE 88 mg/dL (70-105); POTASSIUM SERUM 3.5 mEq/L (3.5-5.1); SODIUM SERUM 142 mEq/L (136-145)
[2019-02-19] MEDS: Budesonide 0.5 Mg/2 mL Ud HHN SCH ×2 (07:29→19:47)
[2019-02-19] MEDS: Albuterol Nebulizer 2.5mg/3mL HHN SCH ×4 (07:29→19:47)
[2019-02-19] MEDS: Venelex 60gm Tube TP SCH (10:22)
[2019-02-19] MEDS: Multivitamin w/ Minerals Tab GT SCH (10:22)
[2019-02-19] MEDS: Heparin Sod 5,000Units/ML 5,000 UNITS/ML VIAL SUBQ SCH ×2 (10:22→21:11)
[2019-02-19] MEDS: Lactobacillus Rhamnosus GG 15 Billion CFU CAP.SPRINK GT SCH (10:23)
[2019-02-19] MEDS: INSULIN LISPRO SLIDING SCALE 100 UNITS/ML UNIT SUBQ SCH ×2 (11:15→21:59)
--- NOTE | 2019-02-19 16:40 | Internal Medicine Prog Note ---
Internal Medicine Subjective - Subjective Patient seen and examined:: chart reviewed (HB low 11.1) Patient is:: awake, agitated, other (combative.) Patient Complaints of:: other (Weight loss.) Per staff patient has:: no adverse event, no episodes of fall, agitated, combative Internal Medicine Objective - Results Result Diagrams: 02/19/19 04:45 02/19/19 04:45 Recent Labs: Laboratory Last Values WBC 5.7 Th/cmm (4.8-10.8) 02/19/19 04:45 RBC 3.44 Mil/cmm (3.80-5.10) L 02/19/19 04:45 Hgb 11.1 gm/dL (12-16) L 02/19/19 04:45 Hct 32.7 % (41.0-60) L 02/19/19 04:45 MCV 95.0 fl (81-100) 02/19/19 04:45 MCH 32.3 pg (27.0-31.0) H 02/19/19 04:45 MCHC Differential 34.0 pg (28.0-36.0) 02/19/19 04:45 RDW 14.2 % (11.5-20.0) 02/19/19 04:45 Plt Count 180 Th/cmm (150-400) 02/19/19 04:45 MPV 8.5 fl 02/19/19 04:45 Neutrophils % 69.9 % (40.0-80.0) 02/19/19 04:45 Lymphocytes % 20.3 % (20.0-50.0) 02/19/19 04:45 Monocytes % 6.9 % (2.0-10.0) 02/19/19 04:45 Eosinophils % 2.3 % (0.0-5.0) 02/19/19 04:45 Basophils % 0.6 % (0.0-2.0) 02/19/19 04:45 PT 11.6 SECONDS (9.5-11.5) H 02/15/19 23:40 INR 1.13 (0.5-1.4) 02/15/19 23:40 PTT (Actin FS) 44.0 SECONDS (26.0-38.0) H 02/15/19 23:40 Sodium 142 mEq/L (136-145) 02/19/19 04:45 Potassium 3.5 mEq/L (3.5-5.1) 02/19/19 04:45 Chloride 103 mEq/L (98-107) 02/19/19 04:45 Carbon Dioxide 30.5 mEq/L (21.0-31.0) 02/19/19 04:45 Anion Gap 12.0 (7.0-16.0) 02/19/19 04:45 BUN 19 mg/dL (7-25) 02/19/19 04:45 Creatinine 0.6 mg/dL (0.6-1.2) 02/19/19 04:45 Est GFR ( Amer) > 60.0 ml/min (>90) 02/19/19 04:45 Est GFR (Non-Af Amer) > 60.0 ml/min 02/19/19 04:45 BUN/Creatinine Ratio 31.7 02/19/19 04:45 Glucose 88 mg/dL (70-105) 02/19/19 04:45 POC Glucose 104 MG/DL (70 - 105) 02/18/19 20:41 Whole Bld Lactic Acid 0.56 mmol/L (0.60-1.99) L 02/16/19 00:00 Calcium 9.3 mg/dL (8.6-10.3) 02/19/19 04:45 Total Bilirubin 0.6 mg/dL (0.3-1.0) 02/15/19 23:40 AST 26 U/L (13-39) 02/15/19 23:40 ALT 40 U/L (7-52) 02/15/19 23:40 Alkaline Phosphatase 114 U/L (34-104) H 02/15/19 23:40 Troponin I 0.01 ng/mL (0.01-0.05) 02/15/19 23:40 Total Protein 6.5 gm/dL (6.0-8.3) 02/15/19 23:40 Albumin 3.3 gm/dL (3.7-5.3) L 02/15/19 23:40 Globulin 3.2 gm/dL 02/15/19 23:40 Albumin/Globulin Ratio 1.0 (1.0-1.8) 02/15/19 23:40 TSH 4.06 uIU/ml (0.34-5.60) 02/15/19 23:40 Vancomycin Trough 19.5 ug/mL (5-10) H 02/18/19 06:00 Random Vancomycin 4.7 ug/mL (5.0-40.0) L 02/16/19 21:15 - Physical Exam Vitals and I&O: Vital Signs Temp 98.6 F 02/19/19 15:48 Pulse 70 02/19/19 15:48 Resp 18 02/19/19 15:48 BP 140/94 02/19/19 15:48 Pulse Ox 92 02/19/19 15:48 Intake & Output 02/18/19 02/19/19 02/19/19 18:59 06:59 18:59 Intake Total 820 800 Balance 820 800 Weight (lbs) 42.456 kg 42.184 kg Intake: Intake, IV Amount 100 100 Vancomycin HCl 500 mg In 100 100 Sodium Chloride 0.9% 100 ml @ 100 mls/hr IV Q8HR [facility] Rx#:[id number] Tube Feeding 700 TPN/PPN 720 Other: # Voids 3 # Bowel Movements 0 Weight Source Bedscale Bedscale Active Medications: Current Medications Acetaminophen (Tylenol) 650 mg GT Q6H PRN PRN Reason: mild pain Stop: 04/17/19 18:42 Last Admin: 02/18/19 18:06 Dose: 650 mg Acetaminophen/Hydrocodone Bitart ([place] 10 Mg/325 Mg) 1 tab PO Q6H PRN PRN Reason: Pain (Moderate) Stop: 04/17/19 20:20 Al Hydrox/Mg Hydrox/Simethicone (Maalox) 30 ml GT Q6HR PRN PRN Reason: GI DISTRESS Stop: 04/17/19 18:42 Albuterol Sulfate (Albuterol 2.5mg/3ml Neb Ud) 2.5 mg HHN Q2HR PRN PRN Reason: Shortness of Breath Stop: 04/17/19 18:42 Albuterol Sulfate (Albuterol 2.5mg/3ml Neb Ud) 2.5 mg HHN [id number] [facility] Stop: 04/17/19 18:59 Last Admin: 02/19/19 15:45 Dose: 2.5 mg Ascorbic Acid (Vitamin C) 500 mg GT Q12HR MADHURI Stop: 04/17/19 20:59 Last Admin: 02/19/19 11:15 Dose: 500 mg Bisacodyl (Dulcolax 10 Mg Supp) 10 mg RC DAILY PRN PRN Reason: Constipation Stop: 04/17/19 20:14 Budesonide (Pulmicort) 0.5 mg HHN BIDRT MADHURI Stop: 04/18/19 06:59 Last Admin: 02/19/19 07:29 Dose: 0.5 mg Carvedilol (Coreg) 6.25 mg GT Q12H MADH[facility] Stop: 04/17/19 21:59 Last Admin: 02/19/19 10:23 Dose: 6.25 mg [place] Oil/[place] Balsam/Trypsin (Venelex) 1 appl TP DAILY MADHURI Stop: 04/18/19 08:59 Last Admin: 02/19/19 10:22 Dose: 1 appl Docusate Sodium (Colace) 200 mg GT Q12H PRN PRN Reason: Constipation Stop: 04/17/19 20:14 Glucagon (Glucagen) 1 mg IM PRN PRN PRN Reason: Blood Glucose less than 70 Stop: 04/17/19 20:14 Heparin Sodium (Porcine) (Heparin) 5,000 units SUBQ Q12H MADH[facility] Stop: 04/17/19 21:59 Last Admin: 02/19/19 10:22 Dose: 5,000 units Vancomycin HCl 500 mg/ Sodium (Chloride) 100 mls @ 100 mls/hr IV Q8HR [facility]AD[facility] Stop: 04/18/19 00:00 Last Admin: 02/19/19 14:17 Dose: Not Given Insulin Human Lispro (Humalog Insulin Sliding Scale) 0 units SUBQ Q12HR MADHURI; Protocol Stop: 04/17/19 20:59 Last Admin: 02/19/19 11:15 Dose: Not Given Lactobacillus Rhamnosus (Culturelle 15b) 1 each GT DAILY MADHURI Stop: 04/18/19 08:59 Last Admin: 02/19/19 10:23 Dose: 1 each Lorazepam (Ativan) 1 mg IM Q6HR PRN; Protocol PRN Reason: Agitation Stop: 04/17/19 02:49 Last Admin: 02/17/19 23:56 Dose: 1 mg Magnesium Hydroxide (Milk Of Magnesia) 30 ml GT HS PRN PRN Reason: Constipation Stop: 04/17/19 18:42 Magnesium Oxide (Mag-Oxide) 400 mg GT BID MADHURI Stop: 04/18/19 08:59 Last Admin: 02/19/19 10:22 Dose: 400 mg Miscellaneous (Vancomycin Iv Per Pharmacy) 1 ea MC DAILY MADHURI Stop: 04/18/19 08:59 Morphine Sulfate (Morphine) 2 mg IVP Q4HR PRN PRN Reason: Pain (Severe) Stop: 04/17/19 20:22 Last Admin: 02/17/19 06:08 Dose: 2 mg Sodium Phosphate (Fleet Enema) 135 ml RC Q48HR PRN PRN Reason: Constipation Stop: 04/17/19 20:14 Physical Exam: 58 y/ female patient has been very combative and uncooperative. General: weak, demented HEENT: NC/AT, PERRLA Neck: Supple, No JVD Lungs: CTAB Cardiovascular: RRR, Normal S1 Abdomen: soft, non-tender Extremities: clear Neurological: no change - Procedures Procedures: Procedures Procedure Code Date INSERTION OF FEEDING DEVICE INTO STOMACH, PERC APPROACH [id number] 01/02/19 INSERTION OF INFUSION DEVICE INTO R LOW ARM, PERC APPROACH [id number] 01/02/19 INTRODUCTION OF NUTRITIONAL INTO PERIPH VEIN, PERC APPROACH [id number] 01/02/19 RESPIRATORY VENTILATION, LESS THAN 24 CONSECUTIVE HOURS [id number] 04/07/18 Internal Medicine Assmt/Plan - Assessment Assessment: Diskitis. Osteomyelitis. Anemia. Malnutrition. S/p Trach collar. S/p Percutaneous Endoscopic gastrostomy. Combative. - Plan Plan: Continuation of care Continue present meds as directed Monitor Vitals, Labs and Pain management Fall precaution Continue present care management Nutritional Asmnt/Malnutr-PDOC - Dietary Evaluation Malnutrition Findings (Please click <Entered> for more info): Nutritional Asmnt/Malnutrition Start: 02/17/19 17: 23 Text: Status: Complete Freq: Protocol: Document 02/17/19 17:23 LCHENG (Rec: 02/17/19 17:28 [email or web address]) Nutritional Asmnt/Malnutrition Patient General Information Nutritional Screening High Risk Consult Diagnosis osteomyelitis, central line placement Pertinent Medical Hx/Surgical Hx HTN, asthma/COPD, PUD/GERd, osteomylitis, anemia, PEG/ Gtube, schizophrenia, bipolar Subjective Information Consult received for ricky 12 and open wound. Pt seen resting in bed at time of visit. TF off at this time. Current Diet Order/ Nutrition Support Glucerna 1.2 at 60ml/hr x 20hr Pertinent Medications vit C, colace, heperin, humalog, culturelle, mag-oxide , vancomycin Pertinent Labs 02/17 K 3.4, Cr 0.5, glucose 94 Nutritional Hx/Data Height 1.65 m Height (Calculated Centimeters) 165.1 Current Weight (lbs) 36.741 kg Weight (Calculated Kilograms) 36.7 Weight (Calculated Grams) 73418.0 [place] Body Weight 125 Body Mass Index (BMI) 13.4 Weight Status Underweight GI Symptoms GI Symptoms None Last BM none Difficult in: None Skin Integrity/Comment: left foot and bilat arms bruises pressure area Complex - Includes bone to sacrum, skin tear to right foot ricky 12 Estimated Nutritional Goals Calories/Kcals/Kg 25-30 Kcals Calculated 7636-7791 Protein g/k.2-1.4 Protein Calculated 68-80 Fluid: ml 1425-1710ml (1ml/kcal) Nutritional Problem 1. Problem Problem increased nutrition needs Etiology impaired skin integrity Signs/Symptoms: open wound to sacrum Intervention/Recommendation Comments 1. Continue with current TF regimen with Glucerna 1.2 at 60ml/hr x 20hr. It provides 1440kcal, 72g protein, 966ml free water, meeting 100% of nutritional needs. Add Sadi BID for wound healing. 2. Monitor TF rate, tolerance, wt, skin integrity and labs 3. F/U as high risk in 2-3 days Expected Outcomes/Goals Expected Outcomes/Goals 1. Pt to meet at least 90% of nutritional needs via nutrition support with tolerance 2. Wt stability, skin to remain intact, labs to approach WNL.
--- NOTE | 2019-02-20 01:24 | Infectious Disease Prog Note ---
Infectious Disease Subjective - Review of Systems Service Date: 02/19/19 Subjective: There is no new change, no fever./ Infectious Disease Objective - Results Result Diagrams: 02/19/19 04:45 02/19/19 04:45 Recent Labs: Laboratory Last Values WBC 5.7 Th/cmm (4.8-10.8) 02/19/19 04:45 RBC 3.44 Mil/cmm (3.80-5.10) L 02/19/19 04:45 Hgb 11.1 gm/dL (12-16) L 02/19/19 04:45 Hct 32.7 % (41.0-60) L 02/19/19 04:45 MCV 95.0 fl (81-100) 02/19/19 04:45 MCH 32.3 pg (27.0-31.0) H 02/19/19 04:45 MCHC Differential 34.0 pg (28.0-36.0) 02/19/19 04:45 RDW 14.2 % (11.5-20.0) 02/19/19 04:45 Plt Count 180 Th/cmm (150-400) 02/19/19 04:45 MPV 8.5 fl 02/19/19 04:45 Neutrophils % 69.9 % (40.0-80.0) 02/19/19 04:45 Lymphocytes % 20.3 % (20.0-50.0) 02/19/19 04:45 Monocytes % 6.9 % (2.0-10.0) 02/19/19 04:45 Eosinophils % 2.3 % (0.0-5.0) 02/19/19 04:45 Basophils % 0.6 % (0.0-2.0) 02/19/19 04:45 PT 11.6 SECONDS (9.5-11.5) H 02/15/19 23:40 INR 1.13 (0.5-1.4) 02/15/19 23:40 PTT (Actin FS) 44.0 SECONDS (26.0-38.0) H 02/15/19 23:40 Sodium 142 mEq/L (136-145) 02/19/19 04:45 Potassium 3.5 mEq/L (3.5-5.1) 02/19/19 04:45 Chloride 103 mEq/L (98-107) 02/19/19 04:45 Carbon Dioxide 30.5 mEq/L (21.0-31.0) 02/19/19 04:45 Anion Gap 12.0 (7.0-16.0) 02/19/19 04:45 BUN 19 mg/dL (7-25) 02/19/19 04:45 Creatinine 0.6 mg/dL (0.6-1.2) 02/19/19 04:45 Est GFR ( Amer) > 60.0 ml/min (>90) 02/19/19 04:45 Est GFR (Non-Af Amer) > 60.0 ml/min 02/19/19 04:45 BUN/Creatinine Ratio 31.7 02/19/19 04:45 Glucose 88 mg/dL (70-105) 02/19/19 04:45 POC Glucose 98 MG/DL (70 - 105) 02/19/19 21:00 Whole Bld Lactic Acid 0.56 mmol/L (0.60-1.99) L 02/16/19 00:00 Calcium 9.3 mg/dL (8.6-10.3) 02/19/19 04:45 Total Bilirubin 0.6 mg/dL (0.3-1.0) 02/15/19 23:40 AST 26 U/L (13-39) 02/15/19 23:40 ALT 40 U/L (7-52) 02/15/19 23:40 Alkaline Phosphatase 114 U/L (34-104) H 02/15/19 23:40 Troponin I 0.01 ng/mL (0.01-0.05) 02/15/19 23:40 Total Protein 6.5 gm/dL (6.0-8.3) 02/15/19 23:40 Albumin 3.3 gm/dL (3.7-5.3) L 02/15/19 23:40 Globulin 3.2 gm/dL 02/15/19 23:40 Albumin/Globulin Ratio 1.0 (1.0-1.8) 02/15/19 23:40 TSH 4.06 uIU/ml (0.34-5.60) 02/15/19 23:40 Vancomycin Trough 19.5 ug/mL (5-10) H 02/18/19 06:00 Random Vancomycin 4.7 ug/mL (5.0-40.0) L 02/16/19 21:15 - Physical Exam Vitals and I&O: Vital Signs Temp 98.8 F 02/20/19 01:00 Pulse 70 02/20/19 01:00 Resp 19 02/20/19 01:00 BP 153/90 02/20/19 01:00 Pulse Ox 94 02/20/19 00:00 Intake & Output 02/19/19 02/19/19 02/20/19 06:59 18:59 06:59 Intake Total 900 480 100 Balance 900 480 100 Weight (lbs) 42.184 kg 42.184 kg Intake: Intake, IV Amount 200 100 Vancomycin HCl 500 mg In 200 100 Sodium Chloride 0.9% 100 ml @ 100 mls/hr IV Q8HR [facility] Rx#:[id number] Tube Feeding 700 480 Other: # Voids 3 # Bowel Movements 0 2 Weight Source Bedscale Bedscale Active Medications: Current Medications Acetaminophen (Tylenol) 650 mg GT Q6H PRN PRN Reason: mild pain Stop: 04/17/19 18:42 Last Admin: 02/18/19 18:06 Dose: 650 mg Acetaminophen/Hydrocodone Bitart ([place] 10 Mg/325 Mg) 1 tab PO Q6H PRN PRN Reason: Pain (Moderate) Stop: 04/17/19 20:20 Al Hydrox/Mg Hydrox/Simethicone (Maalox) 30 ml GT Q6HR PRN PRN Reason: GI DISTRESS Stop: 04/17/19 18:42 Albuterol Sulfate (Albuterol 2.5mg/3ml Neb Ud) 2.5 mg HHN Q2HR PRN PRN Reason: Shortness of Breath Stop: 04/17/19 18:42 Albuterol Sulfate (Albuterol 2.5mg/3ml Neb Ud) 2.5 mg HHN [id number] MADHURI Stop: 04/17/19 18:59 Last Admin: 02/19/19 19:47 Dose: 2.5 mg Ascorbic Acid (Vitamin C) 500 mg GT Q12HR MADHURI Stop: 04/17/19 20:59 Last Admin: 02/19/19 21:10 Dose: 500 mg Bisacodyl (Dulcolax 10 Mg Supp) 10 mg RC DAILY PRN PRN Reason: Constipation Stop: 04/17/19 20:14 Budesonide (Pulmicort) 0.5 mg HHN BIDRT MADHURI Stop: 04/18/19 06:59 Last Admin: 02/19/19 19:47 Dose: 0.5 mg Carvedilol (Coreg) 6.25 mg GT Q12H MADHURI Stop: 04/17/19 21:59 Last Admin: 02/19/19 21:09 Dose: 6.25 mg [place] Oil/[place] Balsam/Trypsin (Venelex) 1 appl TP DAILY MADHURI Stop: 04/18/19 08:59 Last Admin: 02/19/19 10:22 Dose: 1 appl Docusate Sodium (Colace) 200 mg GT Q12H PRN PRN Reason: Constipation Stop: 04/17/19 20:14 Glucagon (Glucagen) 1 mg IM PRN PRN PRN Reason: Blood Glucose less than 70 Stop: 04/17/19 20:14 Heparin Sodium (Porcine) (Heparin) 5,000 units SUBQ Q12H MADHURI Stop: 04/17/19 21:59 Last Admin: 02/19/19 21:11 Dose: 5,000 units Vancomycin HCl 500 mg/ Sodium (Chloride) 100 mls @ 100 mls/hr IV Q8HR MADHURI Stop: 04/18/19 00:00 Last Admin: 02/19/19 21:07 Dose: 100 mls/hr Insulin Human Lispro (Humalog Insulin Sliding Scale) 0 units SUBQ Q12HR MADHURI; Protocol Stop: 04/17/19 20:59 Last Admin: 02/19/19 21:59 Dose: Not Given Lactobacillus Rhamnosus (Culturelle 15b) 1 each GT DAILY MADHURI Stop: 04/18/19 08:59 Last Admin: 02/19/19 10:23 Dose: 1 each Lorazepam (Ativan) 1 mg IM Q6HR PRN; Protocol PRN Reason: Agitation Stop: 04/17/19 02:49 Last Admin: 02/17/19 23:56 Dose: 1 mg Magnesium Hydroxide (Milk Of Magnesia) 30 ml GT HS PRN PRN Reason: Constipation Stop: 04/17/19 18:42 Magnesium Oxide (Mag-Oxide) 400 mg GT BID MADHURI Stop: 04/18/19 08:59 Last Admin: 02/19/19 17:56 Dose: 400 mg Miscellaneous (Vancomycin Iv Per Pharmacy) 1 ea MC DAILY MADHURI Stop: 04/18/19 08:59 Morphine Sulfate (Morphine) 2 mg IVP Q4HR PRN PRN Reason: Pain (Severe) Stop: 04/17/19 20:22 Last Admin: 02/17/19 06:08 Dose: 2 mg Sodium Phosphate (Fleet Enema) 135 ml RC Q48HR PRN PRN Reason: Constipation Stop: 04/17/19 20:14 General: no acute distress, cachectic HEENT: atraumatic, normocephalic, PERRLA, EOMI Neck: supple, no thyromegaly Cardiovascular: S1S2, regular Lungs: clear to auscultation bilaterally, clear to percussion Abdomen: soft, no tender, no distended Extremities: no cyanosis, no clubbing, no edema Neurological: awake, alert Skin: intact - Procedures Procedures: Procedures Procedure Code Date INSERTION OF FEEDING DEVICE INTO STOMACH, PERC APPROACH [id number] 01/02/19 INSERTION OF INFUSION DEVICE INTO R LOW ARM, PERC APPROACH [id number] 01/02/19 INTRODUCTION OF NUTRITIONAL INTO PERIPH VEIN, PERC APPROACH [id number] 01/02/19 RESPIRATORY VENTILATION, LESS THAN 24 CONSECUTIVE HOURS [id number] 04/07/18 Infectious Disease Assmt/Plan - Assessment Assessment: 1. MRSA sepsis. treated 2. discitis/osteomyelitis of lumbar spine. 3. Dementia. 4. Dysphagia requiring G-tube placement, but she has pulled out G-tube 3 times already. 5. Dementia. 6. Protein-calorie malnutrition and failure to thrive. 7. Psychosis. 8. Chronic obstructive pulmonary disease. 9. Leukopenia. - Plan Plan: Continue vanco iv to keep trough level 12 - 20. ( End date: 04/02/2019). Nutritional Asmnt/Malnutr-PDOC - Dietary Evaluation Malnutrition Findings (Please click <Entered> for more info): Nutritional Asmnt/Malnutrition Start: 02/17/19 17: 23 Text: Status: Complete Freq: Protocol: Document 02/17/19 17:23 LCHENG (Rec: 02/17/19 17:28 [email or web address] [email or web address]) Nutritional Asmnt/Malnutrition Patient General Information Nutritional Screening High Risk Consult Diagnosis osteomyelitis, central line placement Pertinent Medical Hx/Surgical Hx HTN, asthma/COPD, PUD/GERd, osteomylitis, anemia, PEG/ Gtube, schizophrenia, bipolar Subjective Information Consult received for rciky 12 and open wound. Pt seen resting in bed at time of visit. TF off at this time. Current Diet Order/ Nutrition Support Glucerna 1.2 at 60ml/hr x 20hr Pertinent Medications vit C, colace, heperin, humalog, culturelle, mag-oxide , vancomycin Pertinent Labs 02/17 K 3.4, Cr 0.5, glucose 94 Nutritional Hx/Data Height 1.65 m Height (Calculated Centimeters) 165.1 Current Weight (lbs) 36.741 kg Weight (Calculated Kilograms) 36.7 Weight (Calculated Grams) 21824.0 [place] Body Weight 125 Body Mass Index (BMI) 13.4 Weight Status Underweight GI Symptoms GI Symptoms None Last BM none Difficult in: None Skin Integrity/Comment: left foot and bilat arms bruises pressure area Complex - Includes bone to sacrum, skin tear to right foot ricky 12 Estimated Nutritional Goals Calories/Kcals/Kg 25-30 Kcals Calculated 4167-4631 Protein g/k.2-1.4 Protein Calculated 68-80 Fluid: ml 1425-1710ml (1ml/kcal) Nutritional Problem 1. Problem Problem increased nutrition needs Etiology impaired skin integrity Signs/Symptoms: open wound to sacrum Intervention/Recommendation Comments 1. Continue with current TF regimen with Glucerna 1.2 at 60ml/hr x 20hr. It provides 1440kcal, 72g protein, 966ml free water, meeting 100% of nutritional needs. Add Sadi BID for wound healing. 2. Monitor TF rate, tolerance, wt, skin integrity and labs 3. F/U as high risk in 2-3 days Expected Outcomes/Goals Expected Outcomes/Goals 1. Pt to meet at least 90% of nutritional needs via nutrition support with tolerance 2. Wt stability, skin to remain intact, labs to approach WNL.
[2019-02-20] MEDS: Albuterol Nebulizer 2.5mg/3mL HHN SCH ×4 (06:41→18:38)
[2019-02-20] MEDS: Budesonide 0.5 Mg/2 mL Ud HHN SCH ×2 (06:51→18:38)
[2019-02-20] MEDS: Vancomycin HCl 500 MG in Sodium Chloride 0.9% 100 ML IV SCH ×3 (07:05→22:33)
[2019-02-20] MEDS: INSULIN LISPRO SLIDING SCALE 100 UNITS/ML UNIT SUBQ SCH ×2 (09:04→21:32)
[2019-02-20] MEDS: Lactobacillus Rhamnosus GG 15 Billion CFU CAP.SPRINK GT SCH (09:08)
[2019-02-20] MEDS: Multivitamin w/ Minerals Tab GT SCH (09:08)
[2019-02-20] MEDS: Venelex 60gm Tube TP SCH (09:09)
[2019-02-20] MEDS: Heparin Sod 5,000Units/ML 5,000 UNITS/ML VIAL SUBQ SCH ×2 (09:13→21:50)
--- NOTE | 2019-02-20 12:02 | Internal Medicine Prog Note ---
Internal Medicine Subjective - Subjective Service Date: 02/20/19 Patient is:: awake, interactive Patient Complaints of:: other Per staff patient has:: no adverse event, no episodes of fall Internal Medicine Objective - Results Result Diagrams: 02/19/19 04:45 02/19/19 04:45 Recent Labs: Laboratory Last Values WBC 5.7 Th/cmm (4.8-10.8) 02/19/19 04:45 RBC 3.44 Mil/cmm (3.80-5.10) L 02/19/19 04:45 Hgb 11.1 gm/dL (12-16) L 02/19/19 04:45 Hct 32.7 % (41.0-60) L 02/19/19 04:45 MCV 95.0 fl (81-100) 02/19/19 04:45 MCH 32.3 pg (27.0-31.0) H 02/19/19 04:45 MCHC Differential 34.0 pg (28.0-36.0) 02/19/19 04:45 RDW 14.2 % (11.5-20.0) 02/19/19 04:45 Plt Count 180 Th/cmm (150-400) 02/19/19 04:45 MPV 8.5 fl 02/19/19 04:45 Neutrophils % 69.9 % (40.0-80.0) 02/19/19 04:45 Lymphocytes % 20.3 % (20.0-50.0) 02/19/19 04:45 Monocytes % 6.9 % (2.0-10.0) 02/19/19 04:45 Eosinophils % 2.3 % (0.0-5.0) 02/19/19 04:45 Basophils % 0.6 % (0.0-2.0) 02/19/19 04:45 PT 11.6 SECONDS (9.5-11.5) H 02/15/19 23:40 INR 1.13 (0.5-1.4) 02/15/19 23:40 PTT (Actin FS) 44.0 SECONDS (26.0-38.0) H 02/15/19 23:40 Sodium 142 mEq/L (136-145) 02/19/19 04:45 Potassium 3.5 mEq/L (3.5-5.1) 02/19/19 04:45 Chloride 103 mEq/L (98-107) 02/19/19 04:45 Carbon Dioxide 30.5 mEq/L (21.0-31.0) 02/19/19 04:45 Anion Gap 12.0 (7.0-16.0) 02/19/19 04:45 BUN 19 mg/dL (7-25) 02/19/19 04:45 Creatinine 0.6 mg/dL (0.6-1.2) 02/19/19 04:45 Est GFR ( Amer) > 60.0 ml/min (>90) 02/19/19 04:45 Est GFR (Non-Af Amer) > 60.0 ml/min 02/19/19 04:45 BUN/Creatinine Ratio 31.7 02/19/19 04:45 Glucose 88 mg/dL (70-105) 02/19/19 04:45 POC Glucose 98 MG/DL (70 - 105) 02/19/19 21:00 Whole Bld Lactic Acid 0.56 mmol/L (0.60-1.99) L 02/16/19 00:00 Calcium 9.3 mg/dL (8.6-10.3) 02/19/19 04:45 Total Bilirubin 0.6 mg/dL (0.3-1.0) 02/15/19 23:40 AST 26 U/L (13-39) 02/15/19 23:40 ALT 40 U/L (7-52) 02/15/19 23:40 Alkaline Phosphatase 114 U/L (34-104) H 02/15/19 23:40 Troponin I 0.01 ng/mL (0.01-0.05) 02/15/19 23:40 Total Protein 6.5 gm/dL (6.0-8.3) 02/15/19 23:40 Albumin 3.3 gm/dL (3.7-5.3) L 02/15/19 23:40 Globulin 3.2 gm/dL 02/15/19 23:40 Albumin/Globulin Ratio 1.0 (1.0-1.8) 02/15/19 23:40 TSH 4.06 uIU/ml (0.34-5.60) 02/15/19 23:40 Vancomycin Trough 19.5 ug/mL (5-10) H 02/18/19 06:00 Random Vancomycin 4.7 ug/mL (5.0-40.0) L 02/16/19 21:15 - Physical Exam Vitals and I&O: Vital Signs Temp 96.6 F 02/20/19 08:00 Pulse 68 02/20/19 09:13 Resp 20 02/20/19 08:00 BP 146/86 02/20/19 09:13 Pulse Ox 97 02/20/19 08:00 Intake & Output 02/19/19 02/20/19 02/20/19 18:59 06:59 18:59 Intake Total 480 680 Balance 480 680 Weight (lbs) 93 lb 94 lb Intake: Intake, IV Amount 200 Vancomycin HCl 500 mg In 200 Sodium Chloride 0.9% 100 ml @ 100 mls/hr IV Q8HR [facility] Rx#:[id number] Tube Feeding 480 480 Other: # Voids 3 4 # Bowel Movements 2 2 Weight Source Bedscale Bedscale Active Medications: Current Medications Acetaminophen (Tylenol) 650 mg GT Q6H PRN PRN Reason: mild pain Stop: 04/17/19 18:42 Last Admin: 02/18/19 18:06 Dose: 650 mg Acetaminophen/Hydrocodone Bitart ([place] 10 Mg/325 Mg) 1 tab PO Q6H PRN PRN Reason: Pain (Moderate) Stop: 04/17/19 20:20 Al Hydrox/Mg Hydrox/Simethicone (Maalox) 30 ml GT Q6HR PRN PRN Reason: GI DISTRESS Stop: 04/17/19 18:42 Albuterol Sulfate (Albuterol 2.5mg/3ml Neb Ud) 2.5 mg HHN Q2HR PRN PRN Reason: Shortness of Breath Stop: 04/17/19 18:42 Albuterol Sulfate (Albuterol 2.5mg/3ml Neb Ud) 2.5 mg HHN [id number] [facility] Stop: 04/17/19 18:59 Last Admin: 02/20/19 11:48 Dose: 2.5 mg Ascorbic Acid (Vitamin C) 500 mg GT Q12HR [facility] Stop: 04/17/19 20:59 Last Admin: 02/20/19 09:08 Dose: 500 mg Bisacodyl (Dulcolax 10 Mg Supp) 10 mg RC DAILY PRN PRN Reason: Constipation Stop: 04/17/19 20:14 Budesonide (Pulmicort) 0.5 mg HHN BIDRT MADHURI Stop: 04/18/19 06:59 Last Admin: 02/20/19 06:51 Dose: 0.5 mg Carvedilol (Coreg) 6.25 mg GT Q12H MADHURI Stop: 04/17/19 21:59 Last Admin: 02/20/19 09:13 Dose: 6.25 mg [place] Oil/[place] Balsam/Trypsin (Venelex) 1 appl TP DAILY MADHURI Stop: 04/18/19 08:59 Last Admin: 02/20/19 09:09 Dose: Not Given Docusate Sodium (Colace) 200 mg GT Q12H PRN PRN Reason: Constipation Stop: 04/17/19 20:14 Glucagon (Glucagen) 1 mg IM PRN PRN PRN Reason: Blood Glucose less than 70 Stop: 04/17/19 20:14 Heparin Sodium (Porcine) (Heparin) 5,000 units SUBQ Q12H MADHURI Stop: 04/17/19 21:59 Last Admin: 02/20/19 09:13 Dose: 5,000 units Vancomycin HCl 500 mg/ Sodium (Chloride) 100 mls @ 100 mls/hr IV Q8HR MADHURI Stop: 04/18/19 00:00 Last Admin: 02/20/19 07:05 Dose: 100 mls/hr Insulin Human Lispro (Humalog Insulin Sliding Scale) 0 units SUBQ Q12HR MADHURI; Protocol Stop: 04/17/19 20:59 Last Admin: 02/20/19 09:04 Dose: Not Given Lactobacillus Rhamnosus (Culturelle 15b) 1 each GT DAILY MADHURI Stop: 04/18/19 08:59 Last Admin: 02/20/19 09:08 Dose: 1 each Lorazepam (Ativan) 1 mg IM Q6HR PRN; Protocol PRN Reason: Agitation Stop: 04/17/19 02:49 Last Admin: 02/17/19 23:56 Dose: 1 mg Magnesium Hydroxide (Milk Of Magnesia) 30 ml GT HS PRN PRN Reason: Constipation Stop: 04/17/19 18:42 Magnesium Oxide (Mag-Oxide) 400 mg GT BID MADHURI Stop: 04/18/19 08:59 Last Admin: 02/20/19 09:08 Dose: 400 mg Miscellaneous (Vancomycin Iv Per Pharmacy) 1 ea MC DAILY MADHURI Stop: 04/18/19 08:59 Morphine Sulfate (Morphine) 2 mg IVP Q4HR PRN PRN Reason: Pain (Severe) Stop: 04/17/19 20:22 Last Admin: 02/17/19 06:08 Dose: 2 mg Sodium Phosphate (Fleet Enema) 135 ml RC Q48HR PRN PRN Reason: Constipation Stop: 04/17/19 20:14 General: weak, demented HEENT: NC/AT, PERRLA Neck: Supple, No JVD Lungs: CTAB Cardiovascular: RRR, Normal S1 Abdomen: soft, non-tender Extremities: clear Neurological: no change - Procedures Procedures: Procedures Procedure Code Date INSERTION OF FEEDING DEVICE INTO STOMACH, PERC APPROACH [id number] 01/02/19 INSERTION OF INFUSION DEVICE INTO R LOW ARM, PERC APPROACH [id number] 01/02/19 INTRODUCTION OF NUTRITIONAL INTO PERIPH VEIN, PERC APPROACH [id number] 01/02/19 RESPIRATORY VENTILATION, LESS THAN 24 CONSECUTIVE HOURS [id number] 04/07/18 Internal Medicine Assmt/Plan - Assessment Assessment: OSTEOMYELITIS OF LUMBAR SPINE MRSA SEPSIS DYSPHAGIA DEMENTIA MODERATE PROTEIN CALORIE MALNUTRITION COPD S/P DECCANULATION - Plan Plan: cotinue ivabx as per id am labs placement issues Nutritional Asmnt/Malnutr-PDOC - Dietary Evaluation Malnutrition Findings (Please click <Entered> for more info): Nutritional Asmnt/Malnutrition Start: 02/17/19 17: 23 Text: Status: Complete Freq: Protocol: Document 02/17/19 17:23 LCHENG (Rec: 02/17/19 17:28 LCHENG [email or web address]) Nutritional Asmnt/Malnutrition Patient General Information Nutritional Screening High Risk Consult Diagnosis osteomyelitis, central line placement Pertinent Medical Hx/Surgical Hx HTN, asthma/COPD, PUD/GERd, osteomylitis, anemia, PEG/ Gtube, schizophrenia, bipolar Subjective Information Consult received for ricky 12 and open wound. Pt seen resting in bed at time of visit. TF off at this time. Current Diet Order/ Nutrition Support Glucerna 1.2 at 60ml/hr x 20hr Pertinent Medications vit C, colace, heperin, humalog, culturelle, mag-oxide , vancomycin Pertinent Labs 02/17 K 3.4, Cr 0.5, glucose 94 Nutritional Hx/Data Height 5 ft 5 in Height (Calculated Centimeters) 165.1 Current Weight (lbs) 81 lb Weight (Calculated Kilograms) 36.7 Weight (Calculated Grams) 89913.0 [place] Body Weight 125 Body Mass Index (BMI) 13.4 Weight Status Underweight GI Symptoms GI Symptoms None Last BM none Difficult in: None Skin Integrity/Comment: left foot and bilat arms bruises pressure area Complex - Includes bone to sacrum, skin tear to right foot ricky 12 Estimated Nutritional Goals Calories/Kcals/Kg 25-30 Kcals Calculated 5096-4035 Protein g/k.2-1.4 Protein Calculated 68-80 Fluid: ml 1425-1710ml (1ml/kcal) Nutritional Problem 1. Problem Problem increased nutrition needs Etiology impaired skin integrity Signs/Symptoms: open wound to sacrum Intervention/Recommendation Comments 1. Continue with current TF regimen with Glucerna 1.2 at 60ml/hr x 20hr. It provides 1440kcal, 72g protein, 966ml free water, meeting 100% of nutritional needs. Add Sadi BID for wound healing. 2. Monitor TF rate, tolerance, wt, skin integrity and labs 3. F/U as high risk in 2-3 days Expected Outcomes/Goals Expected Outcomes/Goals 1. Pt to meet at least 90% of nutritional needs via nutrition support with tolerance 2. Wt stability, skin to remain intact, labs to approach WNL.
--- NOTE | 2019-02-20 14:15 | Infectious Disease Prog Note ---
Infectious Disease Subjective - Review of Systems Service Date: 02/20/19 Subjective: There is no new change, no fever./ Infectious Disease Objective - Results Result Diagrams: 02/19/19 04:45 02/19/19 04:45 Recent Labs: Laboratory Last Values WBC 5.7 Th/cmm (4.8-10.8) 02/19/19 04:45 RBC 3.44 Mil/cmm (3.80-5.10) L 02/19/19 04:45 Hgb 11.1 gm/dL (12-16) L 02/19/19 04:45 Hct 32.7 % (41.0-60) L 02/19/19 04:45 MCV 95.0 fl (81-100) 02/19/19 04:45 MCH 32.3 pg (27.0-31.0) H 02/19/19 04:45 MCHC Differential 34.0 pg (28.0-36.0) 02/19/19 04:45 RDW 14.2 % (11.5-20.0) 02/19/19 04:45 Plt Count 180 Th/cmm (150-400) 02/19/19 04:45 MPV 8.5 fl 02/19/19 04:45 Neutrophils % 69.9 % (40.0-80.0) 02/19/19 04:45 Lymphocytes % 20.3 % (20.0-50.0) 02/19/19 04:45 Monocytes % 6.9 % (2.0-10.0) 02/19/19 04:45 Eosinophils % 2.3 % (0.0-5.0) 02/19/19 04:45 Basophils % 0.6 % (0.0-2.0) 02/19/19 04:45 PT 11.6 SECONDS (9.5-11.5) H 02/15/19 23:40 INR 1.13 (0.5-1.4) 02/15/19 23:40 PTT (Actin FS) 44.0 SECONDS (26.0-38.0) H 02/15/19 23:40 Sodium 142 mEq/L (136-145) 02/19/19 04:45 Potassium 3.5 mEq/L (3.5-5.1) 02/19/19 04:45 Chloride 103 mEq/L (98-107) 02/19/19 04:45 Carbon Dioxide 30.5 mEq/L (21.0-31.0) 02/19/19 04:45 Anion Gap 12.0 (7.0-16.0) 02/19/19 04:45 BUN 19 mg/dL (7-25) 02/19/19 04:45 Creatinine 0.6 mg/dL (0.6-1.2) 02/19/19 04:45 Est GFR ( Amer) > 60.0 ml/min (>90) 02/19/19 04:45 Est GFR (Non-Af Amer) > 60.0 ml/min 02/19/19 04:45 BUN/Creatinine Ratio 31.7 02/19/19 04:45 Glucose 88 mg/dL (70-105) 02/19/19 04:45 POC Glucose 98 MG/DL (70 - 105) 02/19/19 21:00 Whole Bld Lactic Acid 0.56 mmol/L (0.60-1.99) L 02/16/19 00:00 Calcium 9.3 mg/dL (8.6-10.3) 02/19/19 04:45 Total Bilirubin 0.6 mg/dL (0.3-1.0) 02/15/19 23:40 AST 26 U/L (13-39) 02/15/19 23:40 ALT 40 U/L (7-52) 02/15/19 23:40 Alkaline Phosphatase 114 U/L (34-104) H 02/15/19 23:40 Troponin I 0.01 ng/mL (0.01-0.05) 02/15/19 23:40 Total Protein 6.5 gm/dL (6.0-8.3) 02/15/19 23:40 Albumin 3.3 gm/dL (3.7-5.3) L 02/15/19 23:40 Globulin 3.2 gm/dL 02/15/19 23:40 Albumin/Globulin Ratio 1.0 (1.0-1.8) 02/15/19 23:40 TSH 4.06 uIU/ml (0.34-5.60) 02/15/19 23:40 Vancomycin Trough 19.5 ug/mL (5-10) H 02/18/19 06:00 Random Vancomycin 4.7 ug/mL (5.0-40.0) L 02/16/19 21:15 - Physical Exam Vitals and I&O: Vital Signs Temp 96.6 F 02/20/19 08:00 Pulse 69 02/20/19 11:48 Resp 18 02/20/19 11:48 BP 146/86 02/20/19 09:13 Pulse Ox 97 02/20/19 11:48 Intake & Output 02/19/19 02/20/19 02/20/19 18:59 06:59 18:59 Intake Total 480 680 100 Balance 480 680 100 Weight (lbs) 42.184 kg 42.638 kg Intake: Intake, IV Amount 200 100 Vancomycin HCl 500 mg In 200 100 Sodium Chloride 0.9% 100 ml @ 100 mls/hr IV Q8HR [facility] Rx#:[id number] Tube Feeding 480 480 Other: # Voids 3 4 # Bowel Movements 2 2 Weight Source Bedscale Bedscale Active Medications: Current Medications Acetaminophen (Tylenol) 650 mg GT Q6H PRN PRN Reason: mild pain Stop: 04/17/19 18:42 Last Admin: 02/18/19 18:06 Dose: 650 mg Acetaminophen/Hydrocodone Bitart ([place] 10 Mg/325 Mg) 1 tab PO Q6H PRN PRN Reason: Pain (Moderate) Stop: 04/17/19 20:20 Al Hydrox/Mg Hydrox/Simethicone (Maalox) 30 ml GT Q6HR PRN PRN Reason: GI DISTRESS Stop: 04/17/19 18:42 Albuterol Sulfate (Albuterol 2.5mg/3ml Neb Ud) 2.5 mg HHN Q2HR PRN PRN Reason: Shortness of Breath Stop: 04/17/19 18:42 Albuterol Sulfate (Albuterol 2.5mg/3ml Neb Ud) 2.5 mg HHN [id number] [facility] Stop: 04/17/19 18:59 Last Admin: 02/20/19 11:48 Dose: 2.5 mg Ascorbic Acid (Vitamin C) 500 mg GT Q12HR MADH[facility] Stop: 04/17/19 20:59 Last Admin: 02/20/19 09:08 Dose: 500 mg Bisacodyl (Dulcolax 10 Mg Supp) 10 mg RC DAILY PRN PRN Reason: Constipation Stop: 04/17/19 20:14 Budesonide (Pulmicort) 0.5 mg HHN BIDRT MADHURI Stop: 04/18/19 06:59 Last Admin: 02/20/19 06:51 Dose: 0.5 mg Carvedilol (Coreg) 6.25 mg GT Q12H MADHURI Stop: 04/17/19 21:59 Last Admin: 02/20/19 09:13 Dose: 6.25 mg [place] Oil/[place] Balsam/Trypsin (Venelex) 1 appl TP DAILY MADHURI Stop: 04/18/19 08:59 Last Admin: 02/20/19 09:09 Dose: Not Given Docusate Sodium (Colace) 200 mg GT Q12H PRN PRN Reason: Constipation Stop: 04/17/19 20:14 Glucagon (Glucagen) 1 mg IM PRN PRN PRN Reason: Blood Glucose less than 70 Stop: 04/17/19 20:14 Heparin Sodium (Porcine) (Heparin) 5,000 units SUBQ Q12H [facility]ADH[facility] Stop: 04/17/19 21:59 Last Admin: 02/20/19 09:13 Dose: 5,000 units Vancomycin HCl 500 mg/ Sodium (Chloride) 100 mls @ 100 mls/hr IV Q8HR MADH[facility] Stop: 04/18/19 00:00 Last Admin: 02/20/19 13:50 Dose: 100 mls/hr Insulin Human Lispro (Humalog Insulin Sliding Scale) 0 units SUBQ Q12HR MADH[facility]; Protocol Stop: 04/17/19 20:59 Last Admin: 02/20/19 09:04 Dose: Not Given Lactobacillus Rhamnosus (Culturelle 15b) 1 each GT DAILY MADHURI Stop: 04/18/19 08:59 Last Admin: 02/20/19 09:08 Dose: 1 each Lorazepam (Ativan) 1 mg IM Q6HR PRN; Protocol PRN Reason: Agitation Stop: 04/17/19 02:49 Last Admin: 02/17/19 23:56 Dose: 1 mg Magnesium Hydroxide (Milk Of Magnesia) 30 ml GT HS PRN PRN Reason: Constipation Stop: 04/17/19 18:42 Magnesium Oxide (Mag-Oxide) 400 mg GT BID MADHURI Stop: 04/18/19 08:59 Last Admin: 02/20/19 09:08 Dose: 400 mg Miscellaneous (Vancomycin Iv Per Pharmacy) 1 ea MC DAILY MADHURI Stop: 04/18/19 08:59 Morphine Sulfate (Morphine) 2 mg IVP Q4HR PRN PRN Reason: Pain (Severe) Stop: 04/17/19 20:22 Last Admin: 02/17/19 06:08 Dose: 2 mg Sodium Phosphate (Fleet Enema) 135 ml RC Q48HR PRN PRN Reason: Constipation Stop: 04/17/19 20:14 General: no acute distress, cachectic HEENT: atraumatic, normocephalic, PERRLA Neck: supple, no thyromegaly Cardiovascular: S1S2, regular Lungs: clear to auscultation bilaterally, clear to percussion Abdomen: soft, no tender, no distended Extremities: no cyanosis, no clubbing, no edema Neurological: other (confused.) - Procedures Procedures: Procedures Procedure Code Date INSERTION OF FEEDING DEVICE INTO STOMACH, PERC APPROACH [id number] 01/02/19 INSERTION OF INFUSION DEVICE INTO R LOW ARM, PERC APPROACH [id number] 01/02/19 INTRODUCTION OF NUTRITIONAL INTO PERIPH VEIN, PERC APPROACH [id number] 01/02/19 RESPIRATORY VENTILATION, LESS THAN 24 CONSECUTIVE HOURS [id number] 04/07/18 Infectious Disease Assmt/Plan - Assessment Assessment: 1. MRSA sepsis. treated 2. discitis/osteomyelitis of lumbar spine. 3. Dementia. 4. Dysphagia requiring G-tube placement, but she has pulled out G-tube 3 times already. 5. Dementia. 6. Protein-calorie malnutrition and failure to thrive. 7. Psychosis. 8. Chronic obstructive pulmonary disease. 9. Leukopenia. - Plan Plan: Continue vanco iv to keep trough level 12 - 20. ( End date: 04/02/2019). Nutritional Asmnt/Malnutr-PDOC - Dietary Evaluation Malnutrition Findings (Please click <Entered> for more info): Nutritional Asmnt/Malnutrition Start: 02/17/19 17: 23 Text: Status: Complete Freq: Protocol: Document 02/17/19 17:23 LCHENG (Rec: 02/17/19 17:28 [email or web address]) Nutritional Asmnt/Malnutrition Patient General Information Nutritional Screening High Risk Consult Diagnosis osteomyelitis, central line placement Pertinent Medical Hx/Surgical Hx HTN, asthma/COPD, PUD/GERd, osteomylitis, anemia, PEG/ Gtube, schizophrenia, bipolar Subjective Information Consult received for ricky 12 and open wound. Pt seen resting in bed at time of visit. TF off at this time. Current Diet Order/ Nutrition Support Glucerna 1.2 at 60ml/hr x 20hr Pertinent Medications vit C, colace, heperin, humalog, culturelle, mag-oxide , vancomycin Pertinent Labs 02/17 K 3.4, Cr 0.5, glucose 94 Nutritional Hx/Data Height 1.65 m Height (Calculated Centimeters) 165.1 Current Weight (lbs) 36.741 kg Weight (Calculated Kilograms) 36.7 Weight (Calculated Grams) 14905.0 [place] Body Weight 125 Body Mass Index (BMI) 13.4 Weight Status Underweight GI Symptoms GI Symptoms None Last BM none Difficult in: None Skin Integrity/Comment: left foot and bilat arms bruises pressure area Complex - Includes bone to sacrum, skin tear to right foot ricky 12 Estimated Nutritional Goals Calories/Kcals/Kg 25-30 Kcals Calculated 5290-7981 Protein g/k.2-1.4 Protein Calculated 68-80 Fluid: ml 1425-1710ml (1ml/kcal) Nutritional Problem 1. Problem Problem increased nutrition needs Etiology impaired skin integrity Signs/Symptoms: open wound to sacrum Intervention/Recommendation Comments 1. Continue with current TF regimen with Glucerna 1.2 at 60ml/hr x 20hr. It provides 1440kcal, 72g protein, 966ml free water, meeting 100% of nutritional needs. Add Sadi BID for wound healing. 2. Monitor TF rate, tolerance, wt, skin integrity and labs 3. F/U as high risk in 2-3 days Expected Outcomes/Goals Expected Outcomes/Goals 1. Pt to meet at least 90% of nutritional needs via nutrition support with tolerance 2. Wt stability, skin to remain intact, labs to approach WNL.
[2019-02-20] MEDS: Hydrocodone/APAP 10 mg/325 mg Tab PO PRN (21:26)
[2019-02-21] MEDS: Vancomycin HCl 500 MG in Sodium Chloride 0.9% 100 ML IV SCH ×3 (04:50→22:44)
[2019-02-21 06:42] LABS: % BASOPHILS 0.7 % (0.0-2.0); % EOSINOPHILS 2.2 % (0.0-5.0); % LYMPHOCYTES 25.9 % (20.0-50.0); % MONOCYTES 12.8 % (2.0-10.0); % NEUTROPHILS 58.4 % (40.0-80.0); EOSINOPHILE ABSOLUTE 0.1 Th/cmm (0.1-0.4); HEMATOCRIT 34.1 % (41.0-60); HEMOGLOBIN 11.6 gm/dL (12-16); LYMPHOCYTE ABSOLUTE 1.5 Th/cmm (1.5-3.0); MEAN CELL VOLUME 95.8 fl (81-100); MEAN CORPUSCULAR HEMOGLOBIN 32.5 pg (27.0-31.0); MEAN CORPUSCULAR HGB CONC 33.9 pg (28.0-36.0); MEAN PLATELET VOLUME 8.1 fl; MONOCYTE ABSOLUTE 0.7 Th/cmm (0.3-1.0); NEUTROPHILE ABSOLUTE 3.4 Th/cmm (1.8-8.0); PLATELET COUNT 176 Th/cmm (150-400); RED BLOOD COUNT 3.56 Mil/cmm (3.80-5.10); RED CELL DISTRIBUTION WIDTH 13.7 % (11.5-20.0); WHITE BLOOD COUNT 5.7 Th/cmm (4.8-10.8)
[2019-02-21 07:04] LABS: ANION GAP 11.5 (7.0-16.0); BUN - UREA NITROGEN 22 mg/dL (7-25); CALCIUM SERUM 9.2 mg/dL (8.6-10.3); CARBON DIOXIDE 29.9 mEq/L (21.0-31.0); CHLORIDE 104 mEq/L (98-107); CREATININE - SERUM 0.5 mg/dL (0.6-1.2); GFR AFRICAN-AMERICAN > 60.0 ml/min (>90); GFR NON AFRICAN-AMERICAN > 60.0 ml/min; GLUCOSE 79 mg/dL (70-105); POTASSIUM SERUM 3.4 mEq/L (3.5-5.1); SODIUM SERUM 142 mEq/L (136-145)
[2019-02-21] MEDS: Albuterol Nebulizer 2.5mg/3mL HHN SCH ×4 (07:25→19:35)
[2019-02-21] MEDS: Budesonide 0.5 Mg/2 mL Ud HHN SCH ×2 (07:25→19:35)
[2019-02-21] MEDS: Lactobacillus Rhamnosus GG 15 Billion CFU CAP.SPRINK GT SCH (09:31)
[2019-02-21] MEDS: Multivitamin w/ Minerals Tab GT SCH (09:31)
[2019-02-21] MEDS: INSULIN LISPRO SLIDING SCALE 100 UNITS/ML UNIT SUBQ SCH ×2 (09:32→21:04)
[2019-02-21] MEDS: Venelex 60gm Tube TP SCH (09:32)
[2019-02-21] MEDS: Heparin Sod 5,000Units/ML 5,000 UNITS/ML VIAL SUBQ SCH ×2 (10:00→21:11)
--- NOTE | 2019-02-21 10:03 | Infectious Disease Prog Note ---
Infectious Disease Subjective - Review of Systems Service Date: 02/21/19 Subjective: There is no new change, no fever./ Infectious Disease Objective - Results Result Diagrams: 02/21/19 06:10 02/21/19 06:10 Recent Labs: Laboratory Last Values WBC 5.7 Th/cmm (4.8-10.8) 02/21/19 06:10 RBC 3.56 Mil/cmm (3.80-5.10) L 02/21/19 06:10 Hgb 11.6 gm/dL (12-16) L 02/21/19 06:10 Hct 34.1 % (41.0-60) L 02/21/19 06:10 MCV 95.8 fl (81-100) 02/21/19 06:10 MCH 32.5 pg (27.0-31.0) H 02/21/19 06:10 MCHC Differential 33.9 pg (28.0-36.0) 02/21/19 06:10 RDW 13.7 % (11.5-20.0) 02/21/19 06:10 Plt Count 176 Th/cmm (150-400) 02/21/19 06:10 MPV 8.1 fl 02/21/19 06:10 Neutrophils % 58.4 % (40.0-80.0) 02/21/19 06:10 Lymphocytes % 25.9 % (20.0-50.0) 02/21/19 06:10 Monocytes % 12.8 % (2.0-10.0) H 02/21/19 06:10 Eosinophils % 2.2 % (0.0-5.0) 02/21/19 06:10 Basophils % 0.7 % (0.0-2.0) 02/21/19 06:10 PT 11.6 SECONDS (9.5-11.5) H 02/15/19 23:40 INR 1.13 (0.5-1.4) 02/15/19 23:40 PTT (Actin FS) 44.0 SECONDS (26.0-38.0) H 02/15/19 23:40 Sodium 142 mEq/L (136-145) 02/21/19 06:10 Potassium 3.4 mEq/L (3.5-5.1) L 02/21/19 06:10 Chloride 104 mEq/L (98-107) 02/21/19 06:10 Carbon Dioxide 29.9 mEq/L (21.0-31.0) 02/21/19 06:10 Anion Gap 11.5 (7.0-16.0) 02/21/19 06:10 BUN 22 mg/dL (7-25) 02/21/19 06:10 Creatinine 0.5 mg/dL (0.6-1.2) L 02/21/19 06:10 Est GFR ( Amer) > 60.0 ml/min (>90) 02/21/19 06:10 Est GFR (Non-Af Amer) > 60.0 ml/min 02/21/19 06:10 BUN/Creatinine Ratio 44.0 02/21/19 06:10 Glucose 79 mg/dL (70-105) 02/21/19 06:10 POC Glucose 79 MG/DL (70 - 105) 02/20/19 21:31 Whole Bld Lactic Acid 0.56 mmol/L (0.60-1.99) L 02/16/19 00:00 Calcium 9.2 mg/dL (8.6-10.3) 02/21/19 06:10 Total Bilirubin 0.6 mg/dL (0.3-1.0) 02/15/19 23:40 AST 26 U/L (13-39) 02/15/19 23:40 ALT 40 U/L (7-52) 02/15/19 23:40 Alkaline Phosphatase 114 U/L (34-104) H 02/15/19 23:40 Troponin I 0.01 ng/mL (0.01-0.05) 02/15/19 23:40 Total Protein 6.5 gm/dL (6.0-8.3) 02/15/19 23:40 Albumin 3.3 gm/dL (3.7-5.3) L 02/15/19 23:40 Globulin 3.2 gm/dL 02/15/19 23:40 Albumin/Globulin Ratio 1.0 (1.0-1.8) 02/15/19 23:40 TSH 4.06 uIU/ml (0.34-5.60) 02/15/19 23:40 Vancomycin Trough 19.5 ug/mL (5-10) H 02/18/19 06:00 Random Vancomycin 4.7 ug/mL (5.0-40.0) L 02/16/19 21:15 - Physical Exam Vitals and I&O: Vital Signs Temp 98.0 F 02/21/19 04:00 Pulse 55 02/21/19 09:37 Resp 19 02/21/19 04:00 BP 144/92 02/21/19 09:37 Pulse Ox 96 02/21/19 04:00 Intake & Output 02/20/19 02/21/19 02/21/19 18:59 06:59 18:59 Intake Total 200 100 Balance 200 100 Weight (lbs) 42.638 kg Intake: Intake, IV Amount 200 100 Vancomycin HCl 500 mg In 200 100 Sodium Chloride 0.9% 100 ml @ 100 mls/hr IV Q8HR [facility] Rx#:[id number] Other: # Voids 3 # Bowel Movements 1 Weight Source Bedscale Active Medications: Current Medications Acetaminophen (Tylenol) 650 mg GT Q6H PRN PRN Reason: mild pain Stop: 04/17/19 18:42 Last Admin: 02/18/19 18:06 Dose: 650 mg Acetaminophen/Hydrocodone Bitart ([place] 10 Mg/325 Mg) 1 tab PO Q6H PRN PRN Reason: Pain (Moderate) Stop: 04/17/19 20:20 Last Admin: 02/20/19 21:26 Dose: 1 tab Al Hydrox/Mg Hydrox/Simethicone (Maalox) 30 ml GT Q6HR PRN PRN Reason: GI DISTRESS Stop: 04/17/19 18:42 Albuterol Sulfate (Albuterol 2.5mg/3ml Neb Ud) 2.5 mg HHN Q2HR PRN PRN Reason: Shortness of Breath Stop: 04/17/19 18:42 Albuterol Sulfate (Albuterol 2.5mg/3ml Neb Ud) 2.5 mg HHN [id number] [facility] Stop: 04/17/19 18:59 Last Admin: 02/21/19 07:25 Dose: 2.5 mg Ascorbic Acid (Vitamin C) 500 mg GT Q12HR [facility] Stop: 04/17/19 20:59 Last Admin: 02/21/19 09:31 Dose: 500 mg Bisacodyl (Dulcolax 10 Mg Supp) 10 mg RC DAILY PRN PRN Reason: Constipation Stop: 04/17/19 20:14 Budesonide (Pulmicort) 0.5 mg HHN BIDRT MADHURI Stop: 04/18/19 06:59 Last Admin: 02/21/19 07:25 Dose: 0.5 mg Carvedilol (Coreg) 6.25 mg GT Q12H [facility]AD[facility] Stop: 04/17/19 21:59 Last Admin: 02/21/19 09:37 Dose: Not Given [place] Oil/[place] Balsam/Trypsin (Venelex) 1 appl TP DAILY MADHURI Stop: 04/18/19 08:59 Last Admin: 02/21/19 09:32 Dose: 1 appl Docusate Sodium (Colace) 200 mg GT Q12H PRN PRN Reason: Constipation Stop: 04/17/19 20:14 Glucagon (Glucagen) 1 mg IM PRN PRN PRN Reason: Blood Glucose less than 70 Stop: 04/17/19 20:14 Heparin Sodium (Porcine) (Heparin) 5,000 units SUBQ Q12H [facility] Stop: 04/17/19 21:59 Last Admin: 02/20/19 21:50 Dose: 5,000 units Vancomycin HCl 500 mg/ Sodium (Chloride) 100 mls @ 100 mls/hr IV Q8HR [facility] Stop: 04/18/19 00:00 Last Admin: 02/21/19 04:50 Dose: 100 mls/hr Insulin Human Lispro (Humalog Insulin Sliding Scale) 0 units SUBQ Q12HR [facility]AD[facility]; Protocol Stop: 04/17/19 20:59 Last Admin: 02/21/19 09:32 Dose: Not Given Lactobacillus Rhamnosus (Culturelle 15b) 1 each GT DAILY MADHURI Stop: 04/18/19 08:59 Last Admin: 02/21/19 09:31 Dose: 1 each Lorazepam (Ativan) 1 mg IM Q6HR PRN; Protocol PRN Reason: Agitation Stop: 04/17/19 02:49 Last Admin: 02/17/19 23:56 Dose: 1 mg Magnesium Hydroxide (Milk Of Magnesia) 30 ml GT HS PRN PRN Reason: Constipation Stop: 04/17/19 18:42 Magnesium Oxide (Mag-Oxide) 400 mg GT BID MADHURI Stop: 04/18/19 08:59 Last Admin: 02/21/19 09:31 Dose: 400 mg Miscellaneous (Vancomycin Iv Per Pharmacy) 1 ea MC DAILY MADHURI Stop: 04/18/19 08:59 Morphine Sulfate (Morphine) 2 mg IVP Q4HR PRN PRN Reason: Pain (Severe) Stop: 04/17/19 20:22 Last Admin: 02/17/19 06:08 Dose: 2 mg Sodium Phosphate (Fleet Enema) 135 ml RC Q48HR PRN PRN Reason: Constipation Stop: 04/17/19 20:14 General: no acute distress, cachectic HEENT: atraumatic, normocephalic, PERRLA, EOMI Neck: supple, no thyromegaly Cardiovascular: S1S2, regular Lungs: clear to auscultation bilaterally, clear to percussion Abdomen: soft, no tender, no distended Extremities: no cyanosis, no clubbing, no edema Neurological: awake, other (Confused.) - Procedures Procedures: Procedures Procedure Code Date INSERTION OF FEEDING DEVICE INTO STOMACH, PERC APPROACH [id number] 01/02/19 INSERTION OF INFUSION DEVICE INTO R LOW ARM, PERC APPROACH [id number] 01/02/19 INTRODUCTION OF NUTRITIONAL INTO PERIPH VEIN, PERC APPROACH [id number] 01/02/19 RESPIRATORY VENTILATION, LESS THAN 24 CONSECUTIVE HOURS [id number] 04/07/18 Infectious Disease Assmt/Plan - Assessment Assessment: 1. MRSA sepsis. treated 2. discitis/osteomyelitis of lumbar spine. 3. Dementia. 4. Dysphagia requiring G-tube placement, but she has pulled out G-tube 3 times already. 5. Dementia. 6. Protein-calorie malnutrition and failure to thrive. 7. Psychosis. 8. Chronic obstructive pulmonary disease. 9. Leukopenia. improved. - Plan Plan: Continue vanco iv to keep trough level 12 - 20. ( End date: 03/02/2019). corrected date Nutritional Asmnt/Malnutr-PDOC - Dietary Evaluation Malnutrition Findings (Please click <Entered> for more info): Nutritional Asmnt/Malnutrition Start: 02/17/19 17: 23 Text: Status: Complete Freq: Protocol: Document 02/17/19 17:23 LCHENG (Rec: 02/17/19 17:28 [email or web address]) Nutritional Asmnt/Malnutrition Patient General Information Nutritional Screening High Risk Consult Diagnosis osteomyelitis, central line placement Pertinent Medical Hx/Surgical Hx HTN, asthma/COPD, PUD/GERd, osteomylitis, anemia, PEG/ Gtube, schizophrenia, bipolar Subjective Information Consult received for ricky 12 and open wound. Pt seen resting in bed at time of visit. TF off at this time. Current Diet Order/ Nutrition Support Glucerna 1.2 at 60ml/hr x 20hr Pertinent Medications vit C, colace, heperin, humalog, culturelle, mag-oxide , vancomycin Pertinent Labs 02/17 K 3.4, Cr 0.5, glucose 94 Nutritional Hx/Data Height 1.65 m Height (Calculated Centimeters) 165.1 Current Weight (lbs) 36.741 kg Weight (Calculated Kilograms) 36.7 Weight (Calculated Grams) 05968.0 [place] Body Weight 125 Body Mass Index (BMI) 13.4 Weight Status Underweight GI Symptoms GI Symptoms None Last BM none Difficult in: None Skin Integrity/Comment: left foot and bilat arms bruises pressure area Complex - Includes bone to sacrum, skin tear to right foot ricky 12 Estimated Nutritional Goals Calories/Kcals/Kg 25-30 Kcals Calculated 4456-5572 Protein g/k.2-1.4 Protein Calculated 68-80 Fluid: ml 1425-1710ml (1ml/kcal) Nutritional Problem 1. Problem Problem increased nutrition needs Etiology impaired skin integrity Signs/Symptoms: open wound to sacrum Intervention/Recommendation Comments 1. Continue with current TF regimen with Glucerna 1.2 at 60ml/hr x 20hr. It provides 1440kcal, 72g protein, 966ml free water, meeting 100% of nutritional needs. Add Sadi BID for wound healing. 2. Monitor TF rate, tolerance, wt, skin integrity and labs 3. F/U as high risk in 2-3 days Expected Outcomes/Goals Expected Outcomes/Goals 1. Pt to meet at least 90% of nutritional needs via nutrition support with tolerance 2. Wt stability, skin to remain intact, labs to approach WNL.
--- NOTE | 2019-02-21 12:05 | Internal Medicine Prog Note ---
Internal Medicine Subjective - Subjective Patient seen and examined:: chart reviewed (pt. stable, no acute changes, on antibiotics, pain well controlled ) Patient is:: awake, interactive, confused Patient Complaints of:: other Per staff patient has:: no adverse event, no episodes of fall Internal Medicine Objective - Results Result Diagrams: 02/21/19 06:10 02/21/19 06:10 Recent Labs: Laboratory Last Values WBC 5.7 Th/cmm (4.8-10.8) 02/21/19 06:10 RBC 3.56 Mil/cmm (3.80-5.10) L 02/21/19 06:10 Hgb 11.6 gm/dL (12-16) L 02/21/19 06:10 Hct 34.1 % (41.0-60) L 02/21/19 06:10 MCV 95.8 fl (81-100) 02/21/19 06:10 MCH 32.5 pg (27.0-31.0) H 02/21/19 06:10 MCHC Differential 33.9 pg (28.0-36.0) 02/21/19 06:10 RDW 13.7 % (11.5-20.0) 02/21/19 06:10 Plt Count 176 Th/cmm (150-400) 02/21/19 06:10 MPV 8.1 fl 02/21/19 06:10 Neutrophils % 58.4 % (40.0-80.0) 02/21/19 06:10 Lymphocytes % 25.9 % (20.0-50.0) 02/21/19 06:10 Monocytes % 12.8 % (2.0-10.0) H 02/21/19 06:10 Eosinophils % 2.2 % (0.0-5.0) 02/21/19 06:10 Basophils % 0.7 % (0.0-2.0) 02/21/19 06:10 PT 11.6 SECONDS (9.5-11.5) H 02/15/19 23:40 INR 1.13 (0.5-1.4) 02/15/19 23:40 PTT (Actin FS) 44.0 SECONDS (26.0-38.0) H 02/15/19 23:40 Sodium 142 mEq/L (136-145) 02/21/19 06:10 Potassium 3.4 mEq/L (3.5-5.1) L 02/21/19 06:10 Chloride 104 mEq/L (98-107) 02/21/19 06:10 Carbon Dioxide 29.9 mEq/L (21.0-31.0) 02/21/19 06:10 Anion Gap 11.5 (7.0-16.0) 02/21/19 06:10 BUN 22 mg/dL (7-25) 02/21/19 06:10 Creatinine 0.5 mg/dL (0.6-1.2) L 02/21/19 06:10 Est GFR ( Amer) > 60.0 ml/min (>90) 02/21/19 06:10 Est GFR (Non-Af Amer) > 60.0 ml/min 02/21/19 06:10 BUN/Creatinine Ratio 44.0 02/21/19 06:10 Glucose 79 mg/dL (70-105) 02/21/19 06:10 POC Glucose 79 MG/DL (70 - 105) 02/20/19 21:31 Whole Bld Lactic Acid 0.56 mmol/L (0.60-1.99) L 02/16/19 00:00 Calcium 9.2 mg/dL (8.6-10.3) 02/21/19 06:10 Total Bilirubin 0.6 mg/dL (0.3-1.0) 02/15/19 23:40 AST 26 U/L (13-39) 02/15/19 23:40 ALT 40 U/L (7-52) 02/15/19 23:40 Alkaline Phosphatase 114 U/L (34-104) H 02/15/19 23:40 Troponin I 0.01 ng/mL (0.01-0.05) 02/15/19 23:40 Total Protein 6.5 gm/dL (6.0-8.3) 02/15/19 23:40 Albumin 3.3 gm/dL (3.7-5.3) L 02/15/19 23:40 Globulin 3.2 gm/dL 02/15/19 23:40 Albumin/Globulin Ratio 1.0 (1.0-1.8) 02/15/19 23:40 TSH 4.06 uIU/ml (0.34-5.60) 02/15/19 23:40 Vancomycin Trough 19.5 ug/mL (5-10) H 02/18/19 06:00 Random Vancomycin 4.7 ug/mL (5.0-40.0) L 02/16/19 21:15 - Physical Exam Vitals and I&O: Vital Signs Temp 98.0 F 02/21/19 04:00 Pulse 72 02/21/19 11:50 Resp 20 02/21/19 11:50 BP 144/92 02/21/19 09:37 Pulse Ox 97 02/21/19 11:50 Intake & Output 02/20/19 02/21/19 02/21/19 18:59 06:59 18:59 Intake Total 200 100 Balance 200 100 Weight (lbs) 42.638 kg Intake: Intake, IV Amount 200 100 Vancomycin HCl 500 mg In 200 100 Sodium Chloride 0.9% 100 ml @ 100 mls/hr IV Q8HR [facility] Rx#:[id number] Other: # Voids 3 # Bowel Movements 1 Weight Source Bedscale Active Medications: Current Medications Acetaminophen (Tylenol) 650 mg GT Q6H PRN PRN Reason: mild pain Stop: 04/17/19 18:42 Last Admin: 02/18/19 18:06 Dose: 650 mg Acetaminophen/Hydrocodone Bitart ([place] 10 Mg/325 Mg) 1 tab PO Q6H PRN PRN Reason: Pain (Moderate) Stop: 04/17/19 20:20 Last Admin: 02/20/19 21:26 Dose: 1 tab Al Hydrox/Mg Hydrox/Simethicone (Maalox) 30 ml GT Q6HR PRN PRN Reason: GI DISTRESS Stop: 04/17/19 18:42 Albuterol Sulfate (Albuterol 2.5mg/3ml Neb Ud) 2.5 mg HHN Q2HR PRN PRN Reason: Shortness of Breath Stop: 04/17/19 18:42 Albuterol Sulfate (Albuterol 2.5mg/3ml Neb Ud) 2.5 mg HHN [id number] [facility] Stop: 04/17/19 18:59 Last Admin: 02/21/19 11:48 Dose: 2.5 mg Ascorbic Acid (Vitamin C) 500 mg GT Q12HR [facility] Stop: 04/17/19 20:59 Last Admin: 02/21/19 09:31 Dose: 500 mg Bisacodyl (Dulcolax 10 Mg Supp) 10 mg RC DAILY PRN PRN Reason: Constipation Stop: 04/17/19 20:14 Budesonide (Pulmicort) 0.5 mg HHN BIDRT [facility] Stop: 04/18/19 06:59 Last Admin: 02/21/19 07:25 Dose: 0.5 mg Carvedilol (Coreg) 6.25 mg GT Q12H [facility] Stop: 04/17/19 21:59 Last Admin: 02/21/19 09:37 Dose: Not Given [place] Oil/[place] Balsam/Trypsin (Venelex) 1 appl TP DAILY [facility] Stop: 04/18/19 08:59 Last Admin: 02/21/19 09:32 Dose: 1 appl Docusate Sodium (Colace) 200 mg GT Q12H PRN PRN Reason: Constipation Stop: 04/17/19 20:14 Glucagon (Glucagen) 1 mg IM PRN PRN PRN Reason: Blood Glucose less than 70 Stop: 04/17/19 20:14 Heparin Sodium (Porcine) (Heparin) 5,000 units SUBQ Q12H [facility] Stop: 04/17/19 21:59 Last Admin: 02/20/19 21:50 Dose: 5,000 units Vancomycin HCl 500 mg/ Sodium (Chloride) 100 mls @ 100 mls/hr IV Q8HR [facility] Stop: 04/18/19 00:00 Last Admin: 02/21/19 04:50 Dose: 100 mls/hr Insulin Human Lispro (Humalog Insulin Sliding Scale) 0 units SUBQ Q12HR [facility]; Protocol Stop: 04/17/19 20:59 Last Admin: 02/21/19 09:32 Dose: Not Given Lactobacillus Rhamnosus (Culturelle 15b) 1 each GT DAILY [facility] Stop: 04/18/19 08:59 Last Admin: 02/21/19 09:31 Dose: 1 each Lorazepam (Ativan) 1 mg IM Q6HR PRN; Protocol PRN Reason: Agitation Stop: 04/17/19 02:49 Last Admin: 02/17/19 23:56 Dose: 1 mg Magnesium Hydroxide (Milk Of Magnesia) 30 ml GT HS PRN PRN Reason: Constipation Stop: 04/17/19 18:42 Magnesium Oxide (Mag-Oxide) 400 mg GT BID [facility] Stop: 04/18/19 08:59 Last Admin: 02/21/19 09:31 Dose: 400 mg Miscellaneous (Vancomycin Iv Per Pharmacy) 1 ea MC DAILY [facility] Stop: 04/18/19 08:59 Morphine Sulfate (Morphine) 2 mg IVP Q4HR PRN PRN Reason: Pain (Severe) Stop: 04/17/19 20:22 Last Admin: 02/17/19 06:08 Dose: 2 mg Sodium Phosphate (Fleet Enema) 135 ml RC Q48HR PRN PRN Reason: Constipation Stop: 04/17/19 20:14 Physical Exam: 58 y/ female patient has been very combative and uncooperative. General: weak, demented HEENT: NC/AT, PERRLA Neck: Supple, No JVD Lungs: CTAB Cardiovascular: RRR, Normal S1 Abdomen: soft, non-tender Extremities: clear Neurological: no change - Procedures Procedures: Procedures Procedure Code Date INSERTION OF FEEDING DEVICE INTO STOMACH, PERC APPROACH [id number] 01/02/19 INSERTION OF INFUSION DEVICE INTO R LOW ARM, PERC APPROACH [id number] 01/02/19 INTRODUCTION OF NUTRITIONAL INTO PERIPH VEIN, PERC APPROACH [id number] 01/02/19 RESPIRATORY VENTILATION, LESS THAN 24 CONSECUTIVE HOURS [id number] 04/07/18 Internal Medicine Assmt/Plan - Assessment Assessment: MRSA sepsis, treated Diskitis. Osteomyelitis of lumbar spine Anemia. Malnutrition. S/p Trach collar. S/p Percutaneous Endoscopic gastrostomy. Combative dementia Dysphagia psychosis h/o copd protein-calorie malnutrition failure to thrive - Plan Plan: Continuation of care On antibiotics as per ID Continue present meds as directed Monitor Vitals, Labs and Pain management Fall precaution Continue present care management Nutritional Asmnt/Malnutr-PDOC - Dietary Evaluation Malnutrition Findings (Please click <Entered> for more info): Nutritional Asmnt/Malnutrition Start: 02/17/19 17: 23 Text: Status: Complete Freq: Protocol: Document 02/17/19 17:23 LCHENG (Rec: 02/17/19 17:28 [email or web address]) Nutritional Asmnt/Malnutrition Patient General Information Nutritional Screening High Risk Consult Diagnosis osteomyelitis, central line placement Pertinent Medical Hx/Surgical Hx HTN, asthma/COPD, PUD/GERd, osteomylitis, anemia, PEG/ Gtube, schizophrenia, bipolar Subjective Information Consult received for ricky 12 and open wound. Pt seen resting in bed at time of visit. TF off at this time. Current Diet Order/ Nutrition Support Glucerna 1.2 at 60ml/hr x 20hr Pertinent Medications vit C, colace, heperin, humalog, culturelle, mag-oxide , vancomycin Pertinent Labs 02/17 K 3.4, Cr 0.5, glucose 94 Nutritional Hx/Data Height 1.65 m Height (Calculated Centimeters) 165.1 Current Weight (lbs) 36.741 kg Weight (Calculated Kilograms) 36.7 Weight (Calculated Grams) 69194.0 [place] Body Weight 125 Body Mass Index (BMI) 13.4 Weight Status Underweight GI Symptoms GI Symptoms None Last BM none Difficult in: None Skin Integrity/Comment: left foot and bilat arms bruises pressure area Complex - Includes bone to sacrum, skin tear to right foot ricky 12 Estimated Nutritional Goals Calories/Kcals/Kg 25-30 Kcals Calculated 3023-4426 Protein g/k.2-1.4 Protein Calculated 68-80 Fluid: ml 1425-1710ml (1ml/kcal) Nutritional Problem 1. Problem Problem increased nutrition needs Etiology impaired skin integrity Signs/Symptoms: open wound to sacrum Intervention/Recommendation Comments 1. Continue with current TF regimen with Glucerna 1.2 at 60ml/hr x 20hr. It provides 1440kcal, 72g protein, 966ml free water, meeting 100% of nutritional needs. Add Sadi BID for wound healing. 2. Monitor TF rate, tolerance, wt, skin integrity and labs 3. F/U as high risk in 2-3 days Expected Outcomes/Goals Expected Outcomes/Goals 1. Pt to meet at least 90% of nutritional needs via nutrition support with tolerance 2. Wt stability, skin to remain intact, labs to approach WNL.
[2019-02-21] MEDS: Hydrocodone/APAP 10 mg/325 mg Tab PO PRN ×2 (16:29→22:57)
[2019-02-22] MEDS: Vancomycin HCl 500 MG in Sodium Chloride 0.9% 100 ML IV SCH ×3 (04:47→21:16)
[2019-02-22] MEDS: Albuterol Nebulizer 2.5mg/3mL HHN SCH ×4 (07:40→19:39)
[2019-02-22] MEDS: Budesonide 0.5 Mg/2 mL Ud HHN SCH ×2 (07:52→19:39)
[2019-02-22] MEDS: Multivitamin w/ Minerals Tab GT SCH (08:58)
[2019-02-22] MEDS: Lactobacillus Rhamnosus GG 15 Billion CFU CAP.SPRINK GT SCH (08:58)
[2019-02-22] MEDS: INSULIN LISPRO SLIDING SCALE 100 UNITS/ML UNIT SUBQ SCH ×2 (08:59→22:57)
[2019-02-22] MEDS: Venelex 60gm Tube TP SCH (09:03)
[2019-02-22] MEDS: Heparin Sod 5,000Units/ML 5,000 UNITS/ML VIAL SUBQ SCH ×2 (10:51→21:29)
--- NOTE | 2019-02-22 19:50 | Progress Notes ---
DATE: 02/22/2019 SUBJECTIVE: The patient was seen in her room. The patient appears to be confused, poor historian. Otherwise, the patient is in no acute distress. OBJECTIVE: VITAL SIGNS: Temperature 98.4, heart rate 79, blood pressure 137/62, respirations 18, 96% on room air. HEENT: Head is atraumatic and normocephalic. Eyes: Bilateral conjunctivae are clear. Bilateral pupils are equally round and reactive. NECK: Supple. No JVD. CARDIOVASCULAR: S1 and S2 without murmur. PULMONARY: Decreased breath sounds. GASTROINTESTINAL: Soft and nontender without guarding. Positive bowel sounds. MUSCULOSKELETAL: No clubbing. No cyanosis noted. ASSESSMENT: 1. Osteomyelitis of the spine. 2. Dementia. 3. Psychosis. 4. Chronic obstructive pulmonary disease. PLAN: We will continue current treatment. We will continue current antibiotics and follow up with the ID doctor. We will monitor the patient's behavior. Treatment plans were discussed with the patient's nurse. Treatment plans were discussed with Dr. Kearns. JOB# [id number]
[2019-02-22] MEDS: Hydrocodone/APAP 10 mg/325 mg Tab PO PRN (21:50)
[2019-02-23] MEDS: Vancomycin HCl 500 MG in Sodium Chloride 0.9% 100 ML IV SCH ×3 (04:05→20:14)
[2019-02-23] MEDS: Albuterol Nebulizer 2.5mg/3mL HHN SCH ×4 (07:20→19:42)
[2019-02-23] MEDS: Budesonide 0.5 Mg/2 mL Ud HHN SCH ×2 (07:27→19:42)
[2019-02-23] MEDS: Heparin Sod 5,000Units/ML 5,000 UNITS/ML VIAL SUBQ SCH ×2 (09:31→20:30)
[2019-02-23] MEDS: Lactobacillus Rhamnosus GG 15 Billion CFU CAP.SPRINK GT SCH (09:32)
[2019-02-23] MEDS: Multivitamin w/ Minerals Tab GT SCH (09:32)
[2019-02-23] MEDS: Venelex 60gm Tube TP SCH (09:33)
[2019-02-23] MEDS: INSULIN LISPRO SLIDING SCALE 100 UNITS/ML UNIT SUBQ SCH ×2 (09:42→21:26)
--- NOTE | 2019-02-23 10:31 | Internal Medicine Prog Note ---
Internal Medicine Subjective - Subjective Patient seen and examined:: chart reviewed Patient is:: awake, interactive, confused, other (still very confused, but in no distress) Patient Complaints of:: other Per staff patient has:: no adverse event, no episodes of fall Internal Medicine Objective - Results Result Diagrams: 02/21/19 06:10 02/21/19 06:10 Recent Labs: Laboratory Last Values WBC 5.7 Th/cmm (4.8-10.8) 02/21/19 06:10 RBC 3.56 Mil/cmm (3.80-5.10) L 02/21/19 06:10 Hgb 11.6 gm/dL (12-16) L 02/21/19 06:10 Hct 34.1 % (41.0-60) L 02/21/19 06:10 MCV 95.8 fl (81-100) 02/21/19 06:10 MCH 32.5 pg (27.0-31.0) H 02/21/19 06:10 MCHC Differential 33.9 pg (28.0-36.0) 02/21/19 06:10 RDW 13.7 % (11.5-20.0) 02/21/19 06:10 Plt Count 176 Th/cmm (150-400) 02/21/19 06:10 MPV 8.1 fl 02/21/19 06:10 Neutrophils % 58.4 % (40.0-80.0) 02/21/19 06:10 Lymphocytes % 25.9 % (20.0-50.0) 02/21/19 06:10 Monocytes % 12.8 % (2.0-10.0) H 02/21/19 06:10 Eosinophils % 2.2 % (0.0-5.0) 02/21/19 06:10 Basophils % 0.7 % (0.0-2.0) 02/21/19 06:10 PT 11.6 SECONDS (9.5-11.5) H 02/15/19 23:40 INR 1.13 (0.5-1.4) 02/15/19 23:40 PTT (Actin FS) 44.0 SECONDS (26.0-38.0) H 02/15/19 23:40 Sodium 142 mEq/L (136-145) 02/21/19 06:10 Potassium 3.4 mEq/L (3.5-5.1) L 02/21/19 06:10 Chloride 104 mEq/L (98-107) 02/21/19 06:10 Carbon Dioxide 29.9 mEq/L (21.0-31.0) 02/21/19 06:10 Anion Gap 11.5 (7.0-16.0) 02/21/19 06:10 BUN 22 mg/dL (7-25) 02/21/19 06:10 Creatinine 0.5 mg/dL (0.6-1.2) L 02/21/19 06:10 Est GFR ( Amer) > 60.0 ml/min (>90) 02/21/19 06:10 Est GFR (Non-Af Amer) > 60.0 ml/min 02/21/19 06:10 BUN/Creatinine Ratio 44.0 02/21/19 06:10 Glucose 79 mg/dL (70-105) 02/21/19 06:10 POC Glucose 92 MG/DL (70 - 105) 02/23/19 09:41 Whole Bld Lactic Acid 0.56 mmol/L (0.60-1.99) L 02/16/19 00:00 Calcium 9.2 mg/dL (8.6-10.3) 02/21/19 06:10 Total Bilirubin 0.6 mg/dL (0.3-1.0) 02/15/19 23:40 AST 26 U/L (13-39) 02/15/19 23:40 ALT 40 U/L (7-52) 02/15/19 23:40 Alkaline Phosphatase 114 U/L (34-104) H 02/15/19 23:40 Troponin I 0.01 ng/mL (0.01-0.05) 02/15/19 23:40 Total Protein 6.5 gm/dL (6.0-8.3) 02/15/19 23:40 Albumin 3.3 gm/dL (3.7-5.3) L 02/15/19 23:40 Globulin 3.2 gm/dL 02/15/19 23:40 Albumin/Globulin Ratio 1.0 (1.0-1.8) 02/15/19 23:40 TSH 4.06 uIU/ml (0.34-5.60) 02/15/19 23:40 Vancomycin Trough 19.4 ug/mL (5-10) H 02/21/19 20:00 Random Vancomycin 4.7 ug/mL (5.0-40.0) L 02/16/19 21:15 - Physical Exam Vitals and I&O: Vital Signs Temp 98.5 F 02/23/19 09:00 Pulse 65 02/23/19 09:33 Resp 18 02/23/19 09:00 BP 128/81 02/23/19 09:33 Pulse Ox 98 02/23/19 08:00 Intake & Output 02/22/19 02/23/19 02/23/19 18:59 06:59 18:59 Intake Total 300 300 Balance 300 300 Weight (lbs) 42.638 kg 42.638 kg Intake: Intake, IV Amount 100 100 Vancomycin HCl 500 mg In 100 100 Sodium Chloride 0.9% 100 ml @ 100 mls/hr IV Q8HR [facility] Rx#:[id number] Tube Feeding 200 200 Other: Weight Source Bedscale Bedscale Active Medications: Current Medications Acetaminophen (Tylenol) 650 mg GT Q6H PRN PRN Reason: mild pain Stop: 04/17/19 18:42 Last Admin: 02/18/19 18:06 Dose: 650 mg Acetaminophen/Hydrocodone Bitart ([place] 10 Mg/325 Mg) 1 tab PO Q6H PRN PRN Reason: Pain (Moderate) Stop: 04/17/19 20:20 Last Admin: 02/22/19 21:50 Dose: 1 tab Al Hydrox/Mg Hydrox/Simethicone (Maalox) 30 ml GT Q6HR PRN PRN Reason: GI DISTRESS Stop: 04/17/19 18:42 Albuterol Sulfate (Albuterol 2.5mg/3ml Neb Ud) 2.5 mg HHN Q2HR PRN PRN Reason: Shortness of Breath Stop: 04/17/19 18:42 Albuterol Sulfate (Albuterol 2.5mg/3ml Neb Ud) 2.5 mg HHN [id number] [facility] Stop: 04/17/19 18:59 Last Admin: 02/23/19 07:20 Dose: 2.5 mg Ascorbic Acid (Vitamin C) 500 mg GT Q12HR [facility] Stop: 04/17/19 20:59 Last Admin: 02/23/19 09:33 Dose: 500 mg Bisacodyl (Dulcolax 10 Mg Supp) 10 mg RC DAILY PRN PRN Reason: Constipation Stop: 04/17/19 20:14 Budesonide (Pulmicort) 0.5 mg HHN BIDRT [facility] Stop: 04/18/19 06:59 Last Admin: 02/23/19 07:27 Dose: 0.5 mg Carvedilol (Coreg) 6.25 mg GT Q12H [facility] Stop: 04/17/19 21:59 Last Admin: 02/23/19 09:33 Dose: 6.25 mg [place] Oil/[place] Balsam/Trypsin (Venelex) 1 appl TP DAILY [facility] Stop: 04/18/19 08:59 Last Admin: 02/23/19 09:33 Dose: 1 appl Docusate Sodium (Colace) 200 mg GT Q12H PRN PRN Reason: Constipation Stop: 04/17/19 20:14 Glucagon (Glucagen) 1 mg IM PRN PRN PRN Reason: Blood Glucose less than 70 Stop: 04/17/19 20:14 Heparin Sodium (Porcine) (Heparin) 5,000 units SUBQ Q12H [facility] Stop: 04/17/19 21:59 Last Admin: 02/23/19 09:31 Dose: 5,000 units Vancomycin HCl 500 mg/ Sodium (Chloride) 100 mls @ 100 mls/hr IV Q8HR [facility] Stop: 04/18/19 00:00 Last Admin: 02/23/19 04:05 Dose: 100 mls/hr Insulin Human Lispro (Humalog Insulin Sliding Scale) 0 units SUBQ Q12HR [facility]; Protocol Stop: 04/17/19 20:59 Last Admin: 02/23/19 09:42 Dose: Not Given Lactobacillus Rhamnosus (Culturelle 15b) 1 each GT DAILY [facility] Stop: 04/18/19 08:59 Last Admin: 02/23/19 09:32 Dose: 1 each Lorazepam (Ativan) 1 mg IM Q6HR PRN; Protocol PRN Reason: Agitation Stop: 04/17/19 02:49 Last Admin: 02/23/19 04:08 Dose: 1 mg Magnesium Hydroxide (Milk Of Magnesia) 30 ml GT HS PRN PRN Reason: Constipation Stop: 04/17/19 18:42 Magnesium Oxide (Mag-Oxide) 400 mg GT BID [facility] Stop: 04/18/19 08:59 Last Admin: 02/23/19 09:32 Dose: 400 mg Miscellaneous (Vancomycin Iv Per Pharmacy) 1 ea [facility] DAILY [facility] Stop: 04/18/19 08:59 Morphine Sulfate (Morphine) 2 mg IVP Q4HR PRN PRN Reason: Pain (Severe) Stop: 04/17/19 20:22 Last Admin: 02/17/19 06:08 Dose: 2 mg Sodium Phosphate (Fleet Enema) 135 ml RC Q48HR PRN PRN Reason: Constipation Stop: 04/17/19 20:14 Physical Exam: 58 y/ female patient has been very combative and uncooperative. General: weak, demented, other (confused) HEENT: NC/AT, PERRLA Neck: Supple, No JVD Lungs: CTAB Cardiovascular: RRR, Normal S1 Abdomen: soft, non-tender Extremities: clear Neurological: no change - Procedures Procedures: Procedures Procedure Code Date INSERTION OF FEEDING DEVICE INTO STOMACH, PERC APPROACH [id number] 01/02/19 INSERTION OF INFUSION DEVICE INTO R LOW ARM, PERC APPROACH [id number] 01/02/19 INTRODUCTION OF NUTRITIONAL INTO PERIPH VEIN, PERC APPROACH [id number] 01/02/19 RESPIRATORY VENTILATION, LESS THAN 24 CONSECUTIVE HOURS [id number] 04/07/18 Internal Medicine Assmt/Plan - Assessment Assessment: MRSA sepsis, treated Diskitis. Osteomyelitis of lumbar spine Anemia. Malnutrition. S/p Trach collar. S/p Percutaneous Endoscopic gastrostomy. Combative dementia Dysphagia psychosis h/o copd protein-calorie malnutrition failure to thrive - Plan Plan: Continuation of care On antibiotics as per ID Continue present meds as directed Monitor Vitals, Labs and Pain management Fall precaution Continue present care management Nutritional Asmnt/Malnutr-PDOC - Dietary Evaluation Malnutrition Findings (Please click <Entered> for more info): Nutritional Asmnt/Malnutrition Start: 02/17/19 17: 23 Text: Status: Complete Freq: Protocol: Document 02/17/19 17:23 LCHENG (Rec: 02/17/19 17:28 [email or web address]) Nutritional Asmnt/Malnutrition Patient General Information Nutritional Screening High Risk Consult Diagnosis osteomyelitis, central line placement Pertinent Medical Hx/Surgical Hx HTN, asthma/COPD, PUD/GERd, osteomylitis, anemia, PEG/ Gtube, schizophrenia, bipolar Subjective Information Consult received for ricky 12 and open wound. Pt seen resting in bed at time of visit. TF off at this time. Current Diet Order/ Nutrition Support Glucerna 1.2 at 60ml/hr x 20hr Pertinent Medications vit C, colace, heperin, humalog, culturelle, mag-oxide , vancomycin Pertinent Labs 02/17 K 3.4, Cr 0.5, glucose 94 Nutritional Hx/Data Height 1.65 m Height (Calculated Centimeters) 165.1 Current Weight (lbs) 36.741 kg Weight (Calculated Kilograms) 36.7 Weight (Calculated Grams) 34113.0 [place] Body Weight 125 Body Mass Index (BMI) 13.4 Weight Status Underweight GI Symptoms GI Symptoms None Last BM none Difficult in: None Skin Integrity/Comment: left foot and bilat arms bruises pressure area Complex - Includes bone to sacrum, skin tear to right foot ricky 12 Estimated Nutritional Goals Calories/Kcals/Kg 25-30 Kcals Calculated 3495-8673 Protein g/k.2-1.4 Protein Calculated 68-80 Fluid: ml 1425-1710ml (1ml/kcal) Nutritional Problem 1. Problem Problem increased nutrition needs Etiology impaired skin integrity Signs/Symptoms: open wound to sacrum Intervention/Recommendation Comments 1. Continue with current TF regimen with Glucerna 1.2 at 60ml/hr x 20hr. It provides 1440kcal, 72g protein, 966ml free water, meeting 100% of nutritional needs. Add Sadi BID for wound healing. 2. Monitor TF rate, tolerance, wt, skin integrity and labs 3. F/U as high risk in 2-3 days Expected Outcomes/Goals Expected Outcomes/Goals 1. Pt to meet at least 90% of nutritional needs via nutrition support with tolerance 2. Wt stability, skin to remain intact, labs to approach WNL.
[2019-02-23] MEDS: Hydrocodone/APAP 10 mg/325 mg Tab PO PRN ×2 (13:15→23:22)
--- NOTE | 2019-02-24 01:42 | Infectious Disease Prog Note ---
Infectious Disease Subjective - Review of Systems Service Date: 02/23/19 Subjective: There is no new change, no fever./ Infectious Disease Objective - Results Result Diagrams: 02/21/19 06:10 02/21/19 06:10 Recent Labs: Laboratory Last Values WBC 5.7 Th/cmm (4.8-10.8) 02/21/19 06:10 RBC 3.56 Mil/cmm (3.80-5.10) L 02/21/19 06:10 Hgb 11.6 gm/dL (12-16) L 02/21/19 06:10 Hct 34.1 % (41.0-60) L 02/21/19 06:10 MCV 95.8 fl (81-100) 02/21/19 06:10 MCH 32.5 pg (27.0-31.0) H 02/21/19 06:10 MCHC Differential 33.9 pg (28.0-36.0) 02/21/19 06:10 RDW 13.7 % (11.5-20.0) 02/21/19 06:10 Plt Count 176 Th/cmm (150-400) 02/21/19 06:10 MPV 8.1 fl 02/21/19 06:10 Neutrophils % 58.4 % (40.0-80.0) 02/21/19 06:10 Lymphocytes % 25.9 % (20.0-50.0) 02/21/19 06:10 Monocytes % 12.8 % (2.0-10.0) H 02/21/19 06:10 Eosinophils % 2.2 % (0.0-5.0) 02/21/19 06:10 Basophils % 0.7 % (0.0-2.0) 02/21/19 06:10 PT 11.6 SECONDS (9.5-11.5) H 02/15/19 23:40 INR 1.13 (0.5-1.4) 02/15/19 23:40 PTT (Actin FS) 44.0 SECONDS (26.0-38.0) H 02/15/19 23:40 Sodium 142 mEq/L (136-145) 02/21/19 06:10 Potassium 3.4 mEq/L (3.5-5.1) L 02/21/19 06:10 Chloride 104 mEq/L (98-107) 02/21/19 06:10 Carbon Dioxide 29.9 mEq/L (21.0-31.0) 02/21/19 06:10 Anion Gap 11.5 (7.0-16.0) 02/21/19 06:10 BUN 22 mg/dL (7-25) 02/21/19 06:10 Creatinine 0.5 mg/dL (0.6-1.2) L 02/21/19 06:10 Est GFR ( Amer) > 60.0 ml/min (>90) 02/21/19 06:10 Est GFR (Non-Af Amer) > 60.0 ml/min 02/21/19 06:10 BUN/Creatinine Ratio 44.0 02/21/19 06:10 Glucose 79 mg/dL (70-105) 02/21/19 06:10 POC Glucose 92 MG/DL (70 - 105) 02/23/19 09:41 Whole Bld Lactic Acid 0.56 mmol/L (0.60-1.99) L 02/16/19 00:00 Calcium 9.2 mg/dL (8.6-10.3) 02/21/19 06:10 Total Bilirubin 0.6 mg/dL (0.3-1.0) 02/15/19 23:40 AST 26 U/L (13-39) 02/15/19 23:40 ALT 40 U/L (7-52) 02/15/19 23:40 Alkaline Phosphatase 114 U/L (34-104) H 02/15/19 23:40 Troponin I 0.01 ng/mL (0.01-0.05) 02/15/19 23:40 Total Protein 6.5 gm/dL (6.0-8.3) 02/15/19 23:40 Albumin 3.3 gm/dL (3.7-5.3) L 02/15/19 23:40 Globulin 3.2 gm/dL 02/15/19 23:40 Albumin/Globulin Ratio 1.0 (1.0-1.8) 02/15/19 23:40 TSH 4.06 uIU/ml (0.34-5.60) 02/15/19 23:40 Vancomycin Trough 19.4 ug/mL (5-10) H 02/21/19 20:00 Random Vancomycin 4.7 ug/mL (5.0-40.0) L 02/16/19 21:15 - Physical Exam Vitals and I&O: Vital Signs Temp 98.2 F 02/24/19 01:00 Pulse 64 02/24/19 01:00 Resp 17 02/24/19 01:00 BP 129/72 02/24/19 01:00 Pulse Ox 98 02/24/19 00:00 Intake & Output 02/23/19 02/23/19 02/24/19 06:59 18:59 06:59 Intake Total 400 360 Balance 400 360 Weight (lbs) 42.638 kg 42.638 kg Intake: Intake, IV Amount 200 100 Vancomycin HCl 500 mg In 200 100 Sodium Chloride 0.9% 100 ml @ 100 mls/hr IV Q8HR [facility] Rx#:[id number] Tube Feeding 200 260 Other: # Voids 3 # Bowel Movements 0 Weight Source Bedscale Bedscale Active Medications: Current Medications Acetaminophen (Tylenol) 650 mg GT Q6H PRN PRN Reason: mild pain Stop: 04/17/19 18:42 Last Admin: 02/18/19 18:06 Dose: 650 mg Acetaminophen/Hydrocodone Bitart ([place] 10 Mg/325 Mg) 1 tab PO Q6H PRN PRN Reason: Pain (Moderate) Stop: 04/17/19 20:20 Last Admin: 02/23/19 23:22 Dose: 1 tab Al Hydrox/Mg Hydrox/Simethicone (Maalox) 30 ml GT Q6HR PRN PRN Reason: GI DISTRESS Stop: 04/17/19 18:42 Albuterol Sulfate (Albuterol 2.5mg/3ml Neb Ud) 2.5 mg HHN Q2HR PRN PRN Reason: Shortness of Breath Stop: 04/17/19 18:42 Albuterol Sulfate (Albuterol 2.5mg/3ml Neb Ud) 2.5 mg HHN [id number] [facility] Stop: 04/17/19 18:59 Last Admin: 02/23/19 19:42 Dose: 2.5 mg Ascorbic Acid (Vitamin C) 500 mg GT Q12HR [facility] Stop: 04/17/19 20:59 Last Admin: 02/23/19 20:30 Dose: 500 mg Bisacodyl (Dulcolax 10 Mg Supp) 10 mg RC DAILY PRN PRN Reason: Constipation Stop: 04/17/19 20:14 Budesonide (Pulmicort) 0.5 mg HHN BIDRT [facility] Stop: 04/18/19 06:59 Last Admin: 02/23/19 19:42 Dose: 0.5 mg Carvedilol (Coreg) 6.25 mg GT Q12H [facility] Stop: 04/17/19 21:59 Last Admin: 02/23/19 20:31 Dose: 6.25 mg [place] Oil/[place] Balsam/Trypsin (Venelex) 1 appl TP DAILY [facility] Stop: 04/18/19 08:59 Last Admin: 02/23/19 09:33 Dose: 1 appl Docusate Sodium (Colace) 200 mg GT Q12H PRN PRN Reason: Constipation Stop: 04/17/19 20:14 Glucagon (Glucagen) 1 mg IM PRN PRN PRN Reason: Blood Glucose less than 70 Stop: 04/17/19 20:14 Heparin Sodium (Porcine) (Heparin) 5,000 units SUBQ Q12H [facility] Stop: 04/17/19 21:59 Last Admin: 02/23/19 20:30 Dose: 5,000 units Vancomycin HCl 500 mg/ Sodium (Chloride) 100 mls @ 100 mls/hr IV Q8HR [facility] Stop: 04/18/19 00:00 Last Admin: 02/23/19 20:14 Dose: 100 mls/hr Insulin Human Lispro (Humalog Insulin Sliding Scale) 0 units SUBQ Q12HR [facility]; Protocol Stop: 04/17/19 20:59 Last Admin: 02/23/19 21:26 Dose: Not Given Lactobacillus Rhamnosus (Culturelle 15b) 1 each GT DAILY [facility] Stop: 04/18/19 08:59 Last Admin: 02/23/19 09:32 Dose: 1 each Lorazepam (Ativan) 1 mg IM Q6HR PRN; Protocol PRN Reason: Agitation Stop: 04/17/19 02:49 Last Admin: 02/23/19 23:21 Dose: 1 mg Magnesium Hydroxide (Milk Of Magnesia) 30 ml GT HS PRN PRN Reason: Constipation Stop: 04/17/19 18:42 Magnesium Oxide (Mag-Oxide) 400 mg GT BID [facility] Stop: 04/18/19 08:59 Last Admin: 02/23/19 16:09 Dose: 400 mg Miscellaneous (Vancomycin Iv Per Pharmacy) 1 ea MC DAILY [facility] Stop: 04/18/19 08:59 Morphine Sulfate (Morphine) 2 mg IVP Q4HR PRN PRN Reason: Pain (Severe) Stop: 04/17/19 20:22 Last Admin: 02/17/19 06:08 Dose: 2 mg Sodium Phosphate (Fleet Enema) 135 ml RC Q48HR PRN PRN Reason: Constipation Stop: 04/17/19 20:14 General: no acute distress, cachectic HEENT: atraumatic, normocephalic, PERRLA, EOMI Neck: supple, no thyromegaly Cardiovascular: S1S2, regular Lungs: clear to auscultation bilaterally, clear to percussion Abdomen: soft, no tender, no distended Extremities: no cyanosis, no clubbing, no edema Neurological: awake, alert, oriented Skin: intact - Procedures Procedures: Procedures Procedure Code Date INSERTION OF FEEDING DEVICE INTO STOMACH, PERC APPROACH [id number] 01/02/19 INSERTION OF INFUSION DEVICE INTO R LOW ARM, PERC APPROACH [id number] 01/02/19 INTRODUCTION OF NUTRITIONAL INTO PERIPH VEIN, PERC APPROACH [id number] 01/02/19 RESPIRATORY VENTILATION, LESS THAN 24 CONSECUTIVE HOURS [id number] 04/07/18 Infectious Disease Assmt/Plan - Assessment Assessment: 1. MRSA sepsis. treated 2. discitis/osteomyelitis of lumbar spine. 3. Dementia. 4. Dysphagia requiring G-tube placement, but she has pulled out G-tube 3 times already. 5. Dementia. 6. Protein-calorie malnutrition and failure to thrive. 7. Psychosis. 8. Chronic obstructive pulmonary disease. 9. Leukopenia. improved. - Plan Plan: Continue vanco iv to keep trough level 12 - 20. ( End date: 03/02/2019). corrected date Nutritional Asmnt/Malnutr-PDOC - Dietary Evaluation Malnutrition Findings (Please click <Entered> for more info): Nutritional Asmnt/Malnutrition Start: 02/17/19 17: 23 Text: Status: Complete Freq: Protocol: Document 02/17/19 17:23 LCHENG (Rec: 02/17/19 17:28 [email or web address]) Nutritional Asmnt/Malnutrition Patient General Information Nutritional Screening High Risk Consult Diagnosis osteomyelitis, central line placement Pertinent Medical Hx/Surgical Hx HTN, asthma/COPD, PUD/GERd, osteomylitis, anemia, PEG/ Gtube, schizophrenia, bipolar Subjective Information Consult received for ricky 12 and open wound. Pt seen resting in bed at time of visit. TF off at this time. Current Diet Order/ Nutrition Support Glucerna 1.2 at 60ml/hr x 20hr Pertinent Medications vit C, colace, heperin, humalog, culturelle, mag-oxide , vancomycin Pertinent Labs 02/17 K 3.4, Cr 0.5, glucose 94 Nutritional Hx/Data Height 1.65 m Height (Calculated Centimeters) 165.1 Current Weight (lbs) 36.741 kg Weight (Calculated Kilograms) 36.7 Weight (Calculated Grams) 39308.0 [place] Body Weight 125 Body Mass Index (BMI) 13.4 Weight Status Underweight GI Symptoms GI Symptoms None Last BM none Difficult in: None Skin Integrity/Comment: left foot and bilat arms bruises pressure area Complex - Includes bone to sacrum, skin tear to right foot ricky 12 Estimated Nutritional Goals Calories/Kcals/Kg 25-30 Kcals Calculated 9757-5276 Protein g/k.2-1.4 Protein Calculated 68-80 Fluid: ml 1425-1710ml (1ml/kcal) Nutritional Problem 1. Problem Problem increased nutrition needs Etiology impaired skin integrity Signs/Symptoms: open wound to sacrum Intervention/Recommendation Comments 1. Continue with current TF regimen with Glucerna 1.2 at 60ml/hr x 20hr. It provides 1440kcal, 72g protein, 966ml free water, meeting 100% of nutritional needs. Add Sadi BID for wound healing. 2. Monitor TF rate, tolerance, wt, skin integrity and labs 3. F/U as high risk in 2-3 days Expected Outcomes/Goals Expected Outcomes/Goals 1. Pt to meet at least 90% of nutritional needs via nutrition support with tolerance 2. Wt stability, skin to remain intact, labs to approach WNL.
[2019-02-24] MEDS: Vancomycin HCl 500 MG in Sodium Chloride 0.9% 100 ML IV SCH ×3 (04:26→20:51)
[2019-02-24 05:30] LABS: % BASOPHILS 0.3 % (0.0-2.0); % EOSINOPHILS 2.9 % (0.0-5.0); % NEUTROPHILS 76.8 % (40.0-80.0); EOSINOPHILE ABSOLUTE 0.2 Th/cmm (0.1-0.4); HEMATOCRIT 34.4 % (41.0-60); HEMOGLOBIN 11.7 gm/dL (12-16); LYMPHOCYTE ABSOLUTE 0.7 Th/cmm (1.5-3.0); MEAN CELL VOLUME 95.1 fl (81-100); MEAN CORPUSCULAR HEMOGLOBIN 32.2 pg (27.0-31.0); MEAN CORPUSCULAR HGB CONC 33.9 pg (28.0-36.0); MONOCYTE ABSOLUTE 0.3 Th/cmm (0.3-1.0); PLATELET COUNT 171 Th/cmm (150-400); RED BLOOD COUNT 3.62 Mil/cmm (3.80-5.10); RED CELL DISTRIBUTION WIDTH 13.8 % (11.5-20.0); WHITE BLOOD COUNT 5.2 Th/cmm (4.8-10.8)
[2019-02-24 05:47] LABS: ANION GAP 11.9 (7.0-16.0); BUN - UREA NITROGEN 21 mg/dL (7-25); CALCIUM SERUM 9.2 mg/dL (8.6-10.3); CARBON DIOXIDE 28.9 mEq/L (21.0-31.0); CHLORIDE 103 mEq/L (98-107); CREATININE - SERUM 0.4 mg/dL (0.6-1.2); GFR AFRICAN-AMERICAN > 60.0 ml/min (>90); GFR NON AFRICAN-AMERICAN > 60.0 ml/min; GLUCOSE 88 mg/dL (70-105); POTASSIUM SERUM 3.8 mEq/L (3.5-5.1); SODIUM SERUM 140 mEq/L (136-145)
[2019-02-24] MEDS: Albuterol Nebulizer 2.5mg/3mL HHN SCH ×4 (07:32→19:32)
[2019-02-24] MEDS: Budesonide 0.5 Mg/2 mL Ud HHN SCH ×2 (07:43→19:32)
[2019-02-24] MEDS: Lactobacillus Rhamnosus GG 15 Billion CFU CAP.SPRINK GT SCH (08:56)
[2019-02-24] MEDS: Multivitamin w/ Minerals Tab GT SCH (08:56)
[2019-02-24] MEDS: Venelex 60gm Tube TP SCH (08:58)
[2019-02-24] MEDS: Heparin Sod 5,000Units/ML 5,000 UNITS/ML VIAL SUBQ SCH ×2 (09:01→21:04)
[2019-02-24] MEDS: INSULIN LISPRO SLIDING SCALE 100 UNITS/ML UNIT SUBQ SCH ×2 (09:08→21:13)
--- NOTE | 2019-02-24 10:36 | Internal Medicine Prog Note ---
Internal Medicine Subjective - Subjective Service Date: 02/24/19 Patient seen and examined:: with staff Patient is:: awake, interactive, confused, other (still dis-oriented but in no distress) Patient Complaints of:: other Per staff patient has:: no adverse event, no episodes of fall Internal Medicine Objective - Results Result Diagrams: 02/24/19 04:35 02/24/19 04:35 Recent Labs: Laboratory Last Values WBC 5.2 Th/cmm (4.8-10.8) 02/24/19 04:35 RBC 3.62 Mil/cmm (3.80-5.10) L 02/24/19 04:35 Hgb 11.7 gm/dL (12-16) L 02/24/19 04:35 Hct 34.4 % (41.0-60) L 02/24/19 04:35 MCV 95.1 fl (81-100) 02/24/19 04:35 MCH 32.2 pg (27.0-31.0) H 02/24/19 04:35 MCHC Differential 33.9 pg (28.0-36.0) 02/24/19 04:35 RDW 13.8 % (11.5-20.0) 02/24/19 04:35 Plt Count 171 Th/cmm (150-400) 02/24/19 04:35 MPV 8.0 fl 02/24/19 04:35 Neutrophils % 76.8 % (40.0-80.0) 02/24/19 04:35 Lymphocytes % 14.0 % (20.0-50.0) L 02/24/19 04:35 Monocytes % 6.0 % (2.0-10.0) 02/24/19 04:35 Eosinophils % 2.9 % (0.0-5.0) 02/24/19 04:35 Basophils % 0.3 % (0.0-2.0) 02/24/19 04:35 PT 11.6 SECONDS (9.5-11.5) H 02/15/19 23:40 INR 1.13 (0.5-1.4) 02/15/19 23:40 PTT (Actin FS) 44.0 SECONDS (26.0-38.0) H 02/15/19 23:40 Sodium 140 mEq/L (136-145) 02/24/19 04:35 Potassium 3.8 mEq/L (3.5-5.1) 02/24/19 04:35 Chloride 103 mEq/L (98-107) 02/24/19 04:35 Carbon Dioxide 28.9 mEq/L (21.0-31.0) 02/24/19 04:35 Anion Gap 11.9 (7.0-16.0) 02/24/19 04:35 BUN 21 mg/dL (7-25) 02/24/19 04:35 Creatinine 0.4 mg/dL (0.6-1.2) L 02/24/19 04:35 Est GFR ( Amer) > 60.0 ml/min (>90) 02/24/19 04:35 Est GFR (Non-Af Amer) > 60.0 ml/min 02/24/19 04:35 BUN/Creatinine Ratio 52.5 02/24/19 04:35 Glucose 88 mg/dL (70-105) 02/24/19 04:35 POC Glucose 76 MG/DL (70 - 105) 02/24/19 09:07 Whole Bld Lactic Acid 0.56 mmol/L (0.60-1.99) L 02/16/19 00:00 Calcium 9.2 mg/dL (8.6-10.3) 02/24/19 04:35 Total Bilirubin 0.6 mg/dL (0.3-1.0) 02/15/19 23:40 AST 26 U/L (13-39) 02/15/19 23:40 ALT 40 U/L (7-52) 02/15/19 23:40 Alkaline Phosphatase 114 U/L (34-104) H 02/15/19 23:40 Troponin I 0.01 ng/mL (0.01-0.05) 02/15/19 23:40 Total Protein 6.5 gm/dL (6.0-8.3) 02/15/19 23:40 Albumin 3.3 gm/dL (3.7-5.3) L 02/15/19 23:40 Globulin 3.2 gm/dL 02/15/19 23:40 Albumin/Globulin Ratio 1.0 (1.0-1.8) 02/15/19 23:40 TSH 4.06 uIU/ml (0.34-5.60) 02/15/19 23:40 Vancomycin Trough 19.4 ug/mL (5-10) H 02/21/19 20:00 Random Vancomycin 4.7 ug/mL (5.0-40.0) L 02/16/19 21:15 - Physical Exam Vitals and I&O: Vital Signs Temp 96.5 F 02/24/19 07:49 Pulse 70 02/24/19 09:01 Resp 18 02/24/19 08:00 BP 157/87 02/24/19 09:01 Pulse Ox 96 02/24/19 07:49 Intake & Output 02/23/19 02/24/19 02/24/19 18:59 06:59 18:59 Intake Total 360 100 Balance 360 100 Weight (lbs) 42.638 kg Intake: Intake, IV Amount 100 100 Vancomycin HCl 500 mg In 100 100 Sodium Chloride 0.9% 100 ml @ 100 mls/hr IV Q8HR [facility] Rx#:[id number] Tube Feeding 260 Other: # Voids 3 # Bowel Movements 0 Weight Source Bedscale Active Medications: Current Medications Acetaminophen (Tylenol) 650 mg GT Q6H PRN PRN Reason: mild pain Stop: 04/17/19 18:42 Last Admin: 02/24/19 09:00 Dose: 650 mg Al Hydrox/Mg Hydrox/Simethicone (Maalox) 30 ml GT Q6HR PRN PRN Reason: GI DISTRESS Stop: 04/17/19 18:42 Albuterol Sulfate (Albuterol 2.5mg/3ml Neb Ud) 2.5 mg HHN Q2HR PRN PRN Reason: Shortness of Breath Stop: 04/17/19 18:42 Albuterol Sulfate (Albuterol 2.5mg/3ml Neb Ud) 2.5 mg HHN [id number] [facility] Stop: 04/17/19 18:59 Last Admin: 02/24/19 07:32 Dose: 2.5 mg Ascorbic Acid (Vitamin C) 500 mg GT Q12HR [facility] Stop: 04/17/19 20:59 Last Admin: 02/24/19 08:56 Dose: 500 mg Bisacodyl (Dulcolax 10 Mg Supp) 10 mg RC DAILY PRN PRN Reason: Constipation Stop: 04/17/19 20:14 Budesonide (Pulmicort) 0.5 mg HHN BIDRT [facility] Stop: 04/18/19 06:59 Last Admin: 02/24/19 07:43 Dose: 0.5 mg Carvedilol (Coreg) 6.25 mg GT Q12H [facility] Stop: 04/17/19 21:59 Last Admin: 02/24/19 09:01 Dose: 6.25 mg [place] Oil/[place] Balsam/Trypsin (Venelex) 1 appl TP DAILY [facility] Stop: 04/18/19 08:59 Last Admin: 02/24/19 08:58 Dose: 1 appl Docusate Sodium (Colace) 200 mg GT Q12H PRN PRN Reason: Constipation Stop: 04/17/19 20:14 Glucagon (Glucagen) 1 mg IM PRN PRN PRN Reason: Blood Glucose less than 70 Stop: 04/17/19 20:14 Heparin Sodium (Porcine) (Heparin) 5,000 units SUBQ Q12H [facility] Stop: 04/17/19 21:59 Last Admin: 02/24/19 09:01 Dose: 5,000 units Vancomycin HCl 500 mg/ Sodium (Chloride) 100 mls @ 100 mls/hr IV Q8HR [facility] Stop: 04/18/19 00:00 Last Admin: 02/24/19 04:26 Dose: 100 mls/hr Insulin Human Lispro (Humalog Insulin Sliding Scale) 0 units SUBQ Q12HR [facility]; Protocol Stop: 04/17/19 20:59 Last Admin: 02/24/19 09:08 Dose: Not Given Lactobacillus Rhamnosus (Culturelle 15b) 1 each GT DAILY [facility] Stop: 04/18/19 08:59 Last Admin: 02/24/19 08:56 Dose: 1 each Lorazepam (Ativan) 1 mg IM Q6HR PRN; Protocol PRN Reason: Agitation Stop: 04/17/19 02:49 Last Admin: 02/23/19 23:21 Dose: 1 mg Magnesium Hydroxide (Milk Of Magnesia) 30 ml GT HS PRN PRN Reason: Constipation Stop: 04/17/19 18:42 Magnesium Oxide (Mag-Oxide) 400 mg GT BID [facility] Stop: 04/18/19 08:59 Last Admin: 02/24/19 08:56 Dose: 400 mg Miscellaneous (Vancomycin Iv Per Pharmacy) 1 ea MC DAILY [facility] Stop: 04/18/19 08:59 Sodium Phosphate (Fleet Enema) 135 ml RC Q48HR PRN PRN Reason: Constipation Stop: 04/17/19 20:14 Physical Exam: 58 y/o female patient is still combative and uncooperative. General: weak, demented, other (confused) HEENT: NC/AT, PERRLA Neck: Supple, No JVD Lungs: CTAB Cardiovascular: RRR, Normal S1 Abdomen: soft, non-tender Extremities: clear Neurological: no change - Procedures Procedures: Procedures Procedure Code Date INSERTION OF FEEDING DEVICE INTO STOMACH, PERC APPROACH [id number] 01/02/19 INSERTION OF INFUSION DEVICE INTO R LOW ARM, PERC APPROACH [id number] 01/02/19 INTRODUCTION OF NUTRITIONAL INTO PERIPH VEIN, PERC APPROACH [id number] 01/02/19 RESPIRATORY VENTILATION, LESS THAN 24 CONSECUTIVE HOURS [id number] 04/07/18 Internal Medicine Assmt/Plan - Assessment Assessment: MRSA sepsis, treated Diskitis. Osteomyelitis of lumbar spine Anemia. Malnutrition. S/p Trach collar. S/p Percutaneous Endoscopic gastrostomy. Combative Dementia Dysphagia Psychosis H/o copd Protein-calorie malnutrition Failure to thrive - Plan Plan: Continuation of care On antibiotics as per ID Continue present meds as directed Monitor Vitals, Labs and Pain management Fall precaution Continue present care management Nutritional Asmnt/Malnutr-PDOC - Dietary Evaluation Malnutrition Findings (Please click <Entered> for more info): Nutritional Asmnt/Malnutrition Start: 02/17/19 17: 23 Text: Status: Complete Freq: Protocol: Document 02/17/19 17:23 LCHENG (Rec: 02/17/19 17:28 [email or web address]) Nutritional Asmnt/Malnutrition Patient General Information Nutritional Screening High Risk Consult Diagnosis osteomyelitis, central line placement Pertinent Medical Hx/Surgical Hx HTN, asthma/COPD, PUD/GERd, osteomylitis, anemia, PEG/ Gtube, schizophrenia, bipolar Subjective Information Consult received for ricky 12 and open wound. Pt seen resting in bed at time of visit. TF off at this time. Current Diet Order/ Nutrition Support Glucerna 1.2 at 60ml/hr x 20hr Pertinent Medications vit C, colace, heperin, humalog, culturelle, mag-oxide , vancomycin Pertinent Labs 02/17 K 3.4, Cr 0.5, glucose 94 Nutritional Hx/Data Height 1.65 m Height (Calculated Centimeters) 165.1 Current Weight (lbs) 36.741 kg Weight (Calculated Kilograms) 36.7 Weight (Calculated Grams) 93502.0 [place] Body Weight 125 Body Mass Index (BMI) 13.4 Weight Status Underweight GI Symptoms GI Symptoms None Last BM none Difficult in: None Skin Integrity/Comment: left foot and bilat arms bruises pressure area Complex - Includes bone to sacrum, skin tear to right foot ricky 12 Estimated Nutritional Goals Calories/Kcals/Kg 25-30 Kcals Calculated 9473-0866 Protein g/k.2-1.4 Protein Calculated 68-80 Fluid: ml 1425-1710ml (1ml/kcal) Nutritional Problem 1. Problem Problem increased nutrition needs Etiology impaired skin integrity Signs/Symptoms: open wound to sacrum Intervention/Recommendation Comments 1. Continue with current TF regimen with Glucerna 1.2 at 60ml/hr x 20hr. It provides 1440kcal, 72g protein, 966ml free water, meeting 100% of nutritional needs. Add Sadi BID for wound healing. 2. Monitor TF rate, tolerance, wt, skin integrity and labs 3. F/U as high risk in 2-3 days Expected Outcomes/Goals Expected Outcomes/Goals 1. Pt to meet at least 90% of nutritional needs via nutrition support with tolerance 2. Wt stability, skin to remain intact, labs to approach WNL.
[2019-02-25] MEDS: Vancomycin HCl 500 MG in Sodium Chloride 0.9% 100 ML IV SCH ×3 (05:10→21:13)
[2019-02-25] MEDS: Albuterol Nebulizer 2.5mg/3mL HHN SCH ×4 (07:03→19:03)
[2019-02-25] MEDS: Budesonide 0.5 Mg/2 mL Ud HHN SCH ×2 (07:03→19:03)
[2019-02-25] MEDS: Lactobacillus Rhamnosus GG 15 Billion CFU CAP.SPRINK GT SCH (08:50)
[2019-02-25] MEDS: Multivitamin w/ Minerals Tab GT SCH (08:50)
[2019-02-25] MEDS: INSULIN LISPRO SLIDING SCALE 100 UNITS/ML UNIT SUBQ SCH ×2 (08:51→22:58)
[2019-02-25] MEDS: Venelex 60gm Tube TP SCH (08:51)
[2019-02-25] MEDS: Heparin Sod 5,000Units/ML 5,000 UNITS/ML VIAL SUBQ SCH ×2 (09:00→21:14)
--- NOTE | 2019-02-25 09:32 | Infectious Disease Prog Note ---
Infectious Disease Subjective - Review of Systems Service Date: 02/25/19 Subjective: There is no new change, no fever./ Infectious Disease Objective - Results Result Diagrams: 02/24/19 04:35 02/24/19 04:35 Recent Labs: Laboratory Last Values WBC 5.2 Th/cmm (4.8-10.8) 02/24/19 04:35 RBC 3.62 Mil/cmm (3.80-5.10) L 02/24/19 04:35 Hgb 11.7 gm/dL (12-16) L 02/24/19 04:35 Hct 34.4 % (41.0-60) L 02/24/19 04:35 MCV 95.1 fl (81-100) 02/24/19 04:35 MCH 32.2 pg (27.0-31.0) H 02/24/19 04:35 MCHC Differential 33.9 pg (28.0-36.0) 02/24/19 04:35 RDW 13.8 % (11.5-20.0) 02/24/19 04:35 Plt Count 171 Th/cmm (150-400) 02/24/19 04:35 MPV 8.0 fl 02/24/19 04:35 Neutrophils % 76.8 % (40.0-80.0) 02/24/19 04:35 Lymphocytes % 14.0 % (20.0-50.0) L 02/24/19 04:35 Monocytes % 6.0 % (2.0-10.0) 02/24/19 04:35 Eosinophils % 2.9 % (0.0-5.0) 02/24/19 04:35 Basophils % 0.3 % (0.0-2.0) 02/24/19 04:35 PT 11.6 SECONDS (9.5-11.5) H 02/15/19 23:40 INR 1.13 (0.5-1.4) 02/15/19 23:40 PTT (Actin FS) 44.0 SECONDS (26.0-38.0) H 02/15/19 23:40 Sodium 140 mEq/L (136-145) 02/24/19 04:35 Potassium 3.8 mEq/L (3.5-5.1) 02/24/19 04:35 Chloride 103 mEq/L (98-107) 02/24/19 04:35 Carbon Dioxide 28.9 mEq/L (21.0-31.0) 02/24/19 04:35 Anion Gap 11.9 (7.0-16.0) 02/24/19 04:35 BUN 21 mg/dL (7-25) 02/24/19 04:35 Creatinine 0.4 mg/dL (0.6-1.2) L 02/24/19 04:35 Est GFR ( Amer) > 60.0 ml/min (>90) 02/24/19 04:35 Est GFR (Non-Af Amer) > 60.0 ml/min 02/24/19 04:35 BUN/Creatinine Ratio 52.5 02/24/19 04:35 Glucose 88 mg/dL (70-105) 02/24/19 04:35 POC Glucose 66 MG/DL (70 - 105) L 02/25/19 08:48 Whole Bld Lactic Acid 0.56 mmol/L (0.60-1.99) L 02/16/19 00:00 Calcium 9.2 mg/dL (8.6-10.3) 02/24/19 04:35 Total Bilirubin 0.6 mg/dL (0.3-1.0) 02/15/19 23:40 AST 26 U/L (13-39) 02/15/19 23:40 ALT 40 U/L (7-52) 02/15/19 23:40 Alkaline Phosphatase 114 U/L (34-104) H 02/15/19 23:40 Troponin I 0.01 ng/mL (0.01-0.05) 02/15/19 23:40 Total Protein 6.5 gm/dL (6.0-8.3) 02/15/19 23:40 Albumin 3.3 gm/dL (3.7-5.3) L 02/15/19 23:40 Globulin 3.2 gm/dL 02/15/19 23:40 Albumin/Globulin Ratio 1.0 (1.0-1.8) 02/15/19 23:40 TSH 4.06 uIU/ml (0.34-5.60) 02/15/19 23:40 Vancomycin Trough 19.4 ug/mL (5-10) H 02/21/19 20:00 Random Vancomycin 4.7 ug/mL (5.0-40.0) L 02/16/19 21:15 - Physical Exam Vitals and I&O: Vital Signs Temp 96.5 F 02/25/19 09:00 Pulse 71 02/25/19 09:00 Resp 18 02/25/19 09:00 BP 164/96 02/25/19 09:00 Pulse Ox 96 02/25/19 08:00 Intake & Output 02/24/19 02/25/19 02/25/19 18:59 06:59 18:59 Intake Total 600 100 Balance 600 100 Weight (lbs) 42.638 kg Intake: Intake, IV Amount 100 100 Vancomycin HCl 500 mg In 100 100 Sodium Chloride 0.9% 100 ml @ 100 mls/hr IV Q8HR [facility] Rx#:[id number] Tube Feeding 500 Other: # Voids 2 # Bowel Movements 0 Weight Source Bedscale Active Medications: Current Medications Acetaminophen (Tylenol) 650 mg GT Q6H PRN PRN Reason: mild pain Stop: 04/17/19 18:42 Last Admin: 02/24/19 09:00 Dose: 650 mg Al Hydrox/Mg Hydrox/Simethicone (Maalox) 30 ml GT Q6HR PRN PRN Reason: GI DISTRESS Stop: 04/17/19 18:42 Albuterol Sulfate (Albuterol 2.5mg/3ml Neb Ud) 2.5 mg HHN Q2HR PRN PRN Reason: Shortness of Breath Stop: 04/17/19 18:42 Albuterol Sulfate (Albuterol 2.5mg/3ml Neb Ud) 2.5 mg HHN [id number] [facility] Stop: 04/17/19 18:59 Last Admin: 02/25/19 07:03 Dose: 2.5 mg Ascorbic Acid (Vitamin C) 500 mg GT Q12HR [facility] Stop: 04/17/19 20:59 Last Admin: 02/25/19 08:50 Dose: 500 mg Bisacodyl (Dulcolax 10 Mg Supp) 10 mg RC DAILY PRN PRN Reason: Constipation Stop: 04/17/19 20:14 Budesonide (Pulmicort) 0.5 mg HHN BIDRT [facility] Stop: 04/18/19 06:59 Last Admin: 02/25/19 07:03 Dose: 0.5 mg Carvedilol (Coreg) 6.25 mg GT Q12H [facility] Stop: 04/17/19 21:59 Last Admin: 02/25/19 09:00 Dose: 6.25 mg [place] Oil/[place] Balsam/Trypsin (Venelex) 1 appl TP DAILY [facility] Stop: 04/18/19 08:59 Last Admin: 02/25/19 08:51 Dose: 1 appl Docusate Sodium (Colace) 200 mg GT Q12H PRN PRN Reason: Constipation Stop: 04/17/19 20:14 Glucagon (Glucagen) 1 mg IM PRN PRN PRN Reason: Blood Glucose less than 70 Stop: 04/17/19 20:14 Heparin Sodium (Porcine) (Heparin) 5,000 units SUBQ Q12H [facility] Stop: 04/17/19 21:59 Last Admin: 02/25/19 09:00 Dose: Not Given Vancomycin HCl 500 mg/ Sodium (Chloride) 100 mls @ 100 mls/hr IV Q8HR [facility] Stop: 04/18/19 00:00 Last Admin: 02/25/19 05:10 Dose: 100 mls/hr Insulin Human Lispro (Humalog Insulin Sliding Scale) 0 units SUBQ Q12HR [facility]; Protocol Stop: 04/17/19 20:59 Last Admin: 02/25/19 08:51 Dose: Not Given Lactobacillus Rhamnosus (Culturelle 15b) 1 each GT DAILY [facility] Stop: 04/18/19 08:59 Last Admin: 02/25/19 08:50 Dose: 1 each Lorazepam (Ativan) 1 mg IM Q6HR PRN; Protocol PRN Reason: Agitation Stop: 04/17/19 02:49 Last Admin: 02/25/19 08:24 Dose: 1 mg Magnesium Hydroxide (Milk Of Magnesia) 30 ml GT HS PRN PRN Reason: Constipation Stop: 04/17/19 18:42 Magnesium Oxide (Mag-Oxide) 400 mg GT BID [facility] Stop: 04/18/19 08:59 Last Admin: 02/25/19 08:50 Dose: 400 mg Miscellaneous (Vancomycin Iv Per Pharmacy) 1 ea MC DAILY [facility] Stop: 04/18/19 08:59 Sodium Phosphate (Fleet Enema) 135 ml RC Q48HR PRN PRN Reason: Constipation Stop: 04/17/19 20:14 General: no acute distress, well developed, well nourished HEENT: atraumatic, normocephalic, PERRLA, EOMI Neck: supple, no thyromegaly Cardiovascular: S1S2, regular Lungs: clear to auscultation bilaterally, clear to percussion Abdomen: soft, no tender, no distended Extremities: no cyanosis, no clubbing Neurological: awake, alert Skin: intact - Procedures Procedures: Procedures Procedure Code Date INSERTION OF FEEDING DEVICE INTO STOMACH, PERC APPROACH [id number] 01/02/19 INSERTION OF INFUSION DEVICE INTO R LOW ARM, PERC APPROACH [id number] 01/02/19 INTRODUCTION OF NUTRITIONAL INTO PERIPH VEIN, PERC APPROACH 7G0146B 01/02/19 RESPIRATORY VENTILATION, LESS THAN 24 CONSECUTIVE HOURS [id number] 04/07/18 Infectious Disease Assmt/Plan - Assessment Assessment: 1. MRSA sepsis. treated 2. discitis/osteomyelitis of lumbar spine. 3. Dementia. 4. Dysphagia requiring G-tube placement, but she has pulled out G-tube 3 times already. 5. Dementia. 6. Protein-calorie malnutrition and failure to thrive. 7. Psychosis. 8. Chronic obstructive pulmonary disease. 9. Leukopenia. improved. - Plan Plan: Continue vanco iv to keep trough level 12 - 20. may dc antibiotic on discharge or in next 5 days. ( End date: 03/02/2019). corrected date Nutritional Asmnt/Malnutr-PDOC - Dietary Evaluation Malnutrition Findings (Please click <Entered> for more info): Nutritional Asmnt/Malnutrition Start: 02/17/19 17: 23 Text: Status: Complete Freq: Protocol: Document 02/17/19 17:23 LCHENG (Rec: 02/17/19 17:28 [email or web address] [email or web address]) Nutritional Asmnt/Malnutrition Patient General Information Nutritional Screening High Risk Consult Diagnosis osteomyelitis, central line placement Pertinent Medical Hx/Surgical Hx HTN, asthma/COPD, PUD/GERd, osteomylitis, anemia, PEG/ Gtube, schizophrenia, bipolar Subjective Information Consult received for ricky 12 and open wound. Pt seen resting in bed at time of visit. TF off at this time. Current Diet Order/ Nutrition Support Glucerna 1.2 at 60ml/hr x 20hr Pertinent Medications vit C, colace, heperin, humalog, culturelle, mag-oxide , vancomycin Pertinent Labs 02/17 K 3.4, Cr 0.5, glucose 94 Nutritional Hx/Data Height 1.65 m Height (Calculated Centimeters) 165.1 Current Weight (lbs) 36.741 kg Weight (Calculated Kilograms) 36.7 Weight (Calculated Grams) 40318.0 [place] Body Weight 125 Body Mass Index (BMI) 13.4 Weight Status Underweight GI Symptoms GI Symptoms None Last BM none Difficult in: None Skin Integrity/Comment: left foot and bilat arms bruises pressure area Complex - Includes bone to sacrum, skin tear to right foot ricky 12 Estimated Nutritional Goals Calories/Kcals/Kg 25-30 Kcals Calculated 5069-4637 Protein g/k.2-1.4 Protein Calculated 68-80 Fluid: ml 1425-1710ml (1ml/kcal) Nutritional Problem 1. Problem Problem increased nutrition needs Etiology impaired skin integrity Signs/Symptoms: open wound to sacrum Intervention/Recommendation Comments 1. Continue with current TF regimen with Glucerna 1.2 at 60ml/hr x 20hr. It provides 1440kcal, 72g protein, 966ml free water, meeting 100% of nutritional needs. Add Sadi BID for wound healing. 2. Monitor TF rate, tolerance, wt, skin integrity and labs 3. F/U as high risk in 2-3 days Expected Outcomes/Goals Expected Outcomes/Goals 1. Pt to meet at least 90% of nutritional needs via nutrition support with tolerance 2. Wt stability, skin to remain intact, labs to approach WNL.
--- NOTE | 2019-02-25 13:31 | Internal Medicine Prog Note ---
Internal Medicine Subjective - Subjective Service Date: 02/25/19 Patient is:: awake, interactive, confused, other (still dis-oriented but in no distress) Patient Complaints of:: other Per staff patient has:: no adverse event, no episodes of fall Internal Medicine Objective - Results Result Diagrams: 02/24/19 04:35 02/24/19 04:35 Recent Labs: Laboratory Last Values WBC 5.2 Th/cmm (4.8-10.8) 02/24/19 04:35 RBC 3.62 Mil/cmm (3.80-5.10) L 02/24/19 04:35 Hgb 11.7 gm/dL (12-16) L 02/24/19 04:35 Hct 34.4 % (41.0-60) L 02/24/19 04:35 MCV 95.1 fl (81-100) 02/24/19 04:35 MCH 32.2 pg (27.0-31.0) H 02/24/19 04:35 MCHC Differential 33.9 pg (28.0-36.0) 02/24/19 04:35 RDW 13.8 % (11.5-20.0) 02/24/19 04:35 Plt Count 171 Th/cmm (150-400) 02/24/19 04:35 MPV 8.0 fl 02/24/19 04:35 Neutrophils % 76.8 % (40.0-80.0) 02/24/19 04:35 Lymphocytes % 14.0 % (20.0-50.0) L 02/24/19 04:35 Monocytes % 6.0 % (2.0-10.0) 02/24/19 04:35 Eosinophils % 2.9 % (0.0-5.0) 02/24/19 04:35 Basophils % 0.3 % (0.0-2.0) 02/24/19 04:35 PT 11.6 SECONDS (9.5-11.5) H 02/15/19 23:40 INR 1.13 (0.5-1.4) 02/15/19 23:40 PTT (Actin FS) 44.0 SECONDS (26.0-38.0) H 02/15/19 23:40 Sodium 140 mEq/L (136-145) 02/24/19 04:35 Potassium 3.8 mEq/L (3.5-5.1) 02/24/19 04:35 Chloride 103 mEq/L (98-107) 02/24/19 04:35 Carbon Dioxide 28.9 mEq/L (21.0-31.0) 02/24/19 04:35 Anion Gap 11.9 (7.0-16.0) 02/24/19 04:35 BUN 21 mg/dL (7-25) 02/24/19 04:35 Creatinine 0.4 mg/dL (0.6-1.2) L 02/24/19 04:35 Est GFR ( Amer) > 60.0 ml/min (>90) 02/24/19 04:35 Est GFR (Non-Af Amer) > 60.0 ml/min 02/24/19 04:35 BUN/Creatinine Ratio 52.5 02/24/19 04:35 Glucose 88 mg/dL (70-105) 02/24/19 04:35 POC Glucose 66 MG/DL (70 - 105) L 02/25/19 08:48 Whole Bld Lactic Acid 0.56 mmol/L (0.60-1.99) L 02/16/19 00:00 Calcium 9.2 mg/dL (8.6-10.3) 02/24/19 04:35 Total Bilirubin 0.6 mg/dL (0.3-1.0) 02/15/19 23:40 AST 26 U/L (13-39) 02/15/19 23:40 ALT 40 U/L (7-52) 02/15/19 23:40 Alkaline Phosphatase 114 U/L (34-104) H 02/15/19 23:40 Troponin I 0.01 ng/mL (0.01-0.05) 02/15/19 23:40 Total Protein 6.5 gm/dL (6.0-8.3) 02/15/19 23:40 Albumin 3.3 gm/dL (3.7-5.3) L 02/15/19 23:40 Globulin 3.2 gm/dL 02/15/19 23:40 Albumin/Globulin Ratio 1.0 (1.0-1.8) 02/15/19 23:40 TSH 4.06 uIU/ml (0.34-5.60) 02/15/19 23:40 Vancomycin Trough 19.4 ug/mL (5-10) H 02/21/19 20:00 Random Vancomycin 4.7 ug/mL (5.0-40.0) L 02/16/19 21:15 - Physical Exam Vitals and I&O: Vital Signs Temp 97.1 F 02/25/19 12:00 Pulse 60 02/25/19 13:25 Resp 18 02/25/19 12:00 BP 182/103 02/25/19 13:25 Pulse Ox 97 02/25/19 12:00 Intake & Output 02/24/19 02/25/19 02/25/19 18:59 06:59 18:59 Intake Total 600 200 Balance 600 200 Weight (lbs) 94 lb Intake: Intake, IV Amount 100 200 Vancomycin HCl 500 mg In 100 200 Sodium Chloride 0.9% 100 ml @ 100 mls/hr IV Q8HR [facility] Rx#:[id number] Tube Feeding 500 Other: # Voids 2 # Bowel Movements 0 Weight Source Bedscale Active Medications: Current Medications Acetaminophen (Tylenol) 650 mg GT Q6H PRN PRN Reason: mild pain Stop: 04/17/19 18:42 Last Admin: 02/25/19 11:55 Dose: 650 mg Al Hydrox/Mg Hydrox/Simethicone (Maalox) 30 ml GT Q6HR PRN PRN Reason: GI DISTRESS Stop: 04/17/19 18:42 Albuterol Sulfate (Albuterol 2.5mg/3ml Neb Ud) 2.5 mg HHN Q2HR PRN PRN Reason: Shortness of Breath Stop: 04/17/19 18:42 Albuterol Sulfate (Albuterol 2.5mg/3ml Neb Ud) 2.5 mg HHN [id number] [facility] Stop: 04/17/19 18:59 Last Admin: 02/25/19 10:53 Dose: 2.5 mg Ascorbic Acid (Vitamin C) 500 mg GT Q12HR [facility] Stop: 04/17/19 20:59 Last Admin: 02/25/19 08:50 Dose: 500 mg Bisacodyl (Dulcolax 10 Mg Supp) 10 mg RC DAILY PRN PRN Reason: Constipation Stop: 04/17/19 20:14 Budesonide (Pulmicort) 0.5 mg HHN BIDRT [facility] Stop: 04/18/19 06:59 Last Admin: 02/25/19 07:03 Dose: 0.5 mg Carvedilol (Coreg) 6.25 mg GT Q12H [facility] Stop: 04/17/19 21:59 Last Admin: 02/25/19 09:00 Dose: 6.25 mg [place] Oil/[place] Balsam/Trypsin (Venelex) 1 appl TP DAILY [facility] Stop: 04/18/19 08:59 Last Admin: 02/25/19 08:51 Dose: 1 appl Docusate Sodium (Colace) 200 mg GT Q12H PRN PRN Reason: Constipation Stop: 04/17/19 20:14 Enalapril Maleate (Vasotec) 2.5 mg PO BID [facility] Stop: 04/26/19 12:24 Last Admin: 02/25/19 13:25 Dose: 2.5 mg Glucagon (Glucagen) 1 mg IM PRN PRN PRN Reason: Blood Glucose less than 70 Stop: 04/17/19 20:14 Heparin Sodium (Porcine) (Heparin) 5,000 units SUBQ Q12H [facility] Stop: 04/17/19 21:59 Last Admin: 02/25/19 09:00 Dose: Not Given Vancomycin HCl 500 mg/ Sodium (Chloride) 100 mls @ 100 mls/hr IV Q8HR [facility] Stop: 04/18/19 00:00 Last Admin: 02/25/19 12:30 Dose: 100 mls/hr Insulin Human Lispro (Humalog Insulin Sliding Scale) 0 units SUBQ Q12HR [facility]; Protocol Stop: 04/17/19 20:59 Last Admin: 02/25/19 08:51 Dose: Not Given Lactobacillus Rhamnosus (Culturelle 15b) 1 each GT DAILY [facility] Stop: 04/18/19 08:59 Last Admin: 02/25/19 08:50 Dose: 1 each Lorazepam (Ativan) 1 mg IM Q6HR PRN; Protocol PRN Reason: Agitation Stop: 04/17/19 02:49 Last Admin: 02/25/19 08:24 Dose: 1 mg Magnesium Hydroxide (Milk Of Magnesia) 30 ml GT HS PRN PRN Reason: Constipation Stop: 04/17/19 18:42 Magnesium Oxide (Mag-Oxide) 400 mg GT BID [facility] Stop: 04/18/19 08:59 Last Admin: 02/25/19 08:50 Dose: 400 mg Miscellaneous (Vancomycin Iv Per Pharmacy) 1 ea MC DAILY [facility] Stop: 04/18/19 08:59 Sodium Phosphate (Fleet Enema) 135 ml RC Q48HR PRN PRN Reason: Constipation Stop: 04/17/19 20:14 General: weak, demented, other (confused) HEENT: NC/AT, PERRLA Neck: Supple, No JVD Lungs: CTAB Cardiovascular: RRR, Normal S1 Abdomen: soft, non-tender Extremities: clear Neurological: no change - Procedures Procedures: Procedures Procedure Code Date INSERTION OF FEEDING DEVICE INTO STOMACH, PERC APPROACH [id number] 01/02/19 INSERTION OF INFUSION DEVICE INTO R LOW ARM, PERC APPROACH [id number] 01/02/19 INTRODUCTION OF NUTRITIONAL INTO PERIPH VEIN, PERC APPROACH [id number] 01/02/19 RESPIRATORY VENTILATION, LESS THAN 24 CONSECUTIVE HOURS [id number] 04/07/18 Internal Medicine Assmt/Plan - Assessment Assessment: OSTEOMYELITIS OF LUMBAR SPINE MRSA SEPSIS DYSPHAGIA DEMENTIA MODERATE PROTEIN CALORIE MALNUTRITION COPD S/P DECCANULATION - Plan Plan: cotinue ivabx as per id am labs placement issues Nutritional Asmnt/Malnutr-PDOC - Dietary Evaluation Malnutrition Findings (Please click <Entered> for more info): Nutritional Asmnt/Malnutrition Start: 02/17/19 17: 23 Text: Status: Complete Freq: Protocol: Document 02/17/19 17:23 LCHENG (Rec: 02/17/19 17:28 LCHENG [email or web address]) Nutritional Asmnt/Malnutrition Patient General Information Nutritional Screening High Risk Consult Diagnosis osteomyelitis, central line placement Pertinent Medical Hx/Surgical Hx HTN, asthma/COPD, PUD/GERd, osteomylitis, anemia, PEG/ Gtube, schizophrenia, bipolar Subjective Information Consult received for ricky 12 and open wound. Pt seen resting in bed at time of visit. TF off at this time. Current Diet Order/ Nutrition Support Glucerna 1.2 at 60ml/hr x 20hr Pertinent Medications vit C, colace, heperin, humalog, culturelle, mag-oxide , vancomycin Pertinent Labs 02/17 K 3.4, Cr 0.5, glucose 94 Nutritional Hx/Data Height 5 ft 5 in Height (Calculated Centimeters) 165.1 Current Weight (lbs) 81 lb Weight (Calculated Kilograms) 36.7 Weight (Calculated Grams) 44046.0 [place] Body Weight 125 Body Mass Index (BMI) 13.4 Weight Status Underweight GI Symptoms GI Symptoms None Last BM none Difficult in: None Skin Integrity/Comment: left foot and bilat arms bruises pressure area Complex - Includes bone to sacrum, skin tear to right foot ricky 12 Estimated Nutritional Goals Calories/Kcals/Kg 25-30 Kcals Calculated 8975-6777 Protein g/k.2-1.4 Protein Calculated 68-80 Fluid: ml 1425-1710ml (1ml/kcal) Nutritional Problem 1. Problem Problem increased nutrition needs Etiology impaired skin integrity Signs/Symptoms: open wound to sacrum Intervention/Recommendation Comments 1. Continue with current TF regimen with Glucerna 1.2 at 60ml/hr x 20hr. It provides 1440kcal, 72g protein, 966ml free water, meeting 100% of nutritional needs. Add Sadi BID for wound healing. 2. Monitor TF rate, tolerance, wt, skin integrity and labs 3. F/U as high risk in 2-3 days Expected Outcomes/Goals Expected Outcomes/Goals 1. Pt to meet at least 90% of nutritional needs via nutrition support with tolerance 2. Wt stability, skin to remain intact, labs to approach WNL.
[2019-02-26 05:22] LABS: ANION GAP 13.7 (7.0-16.0); BUN - UREA NITROGEN 18 mg/dL (7-25); CALCIUM SERUM 9.1 mg/dL (8.6-10.3); CARBON DIOXIDE 25.2 mEq/L (21.0-31.0); CHLORIDE 104 mEq/L (98-107); CREATININE - SERUM 0.4 mg/dL (0.6-1.2); GFR AFRICAN-AMERICAN > 60.0 ml/min (>90); GFR NON AFRICAN-AMERICAN > 60.0 ml/min; GLUCOSE 103 mg/dL (70-105); POTASSIUM SERUM 3.9 mEq/L (3.5-5.1); SODIUM SERUM 139 mEq/L (136-145)
[2019-02-26] MEDS: Vancomycin HCl 500 MG in Sodium Chloride 0.9% 100 ML IV SCH (05:43)
[2019-02-26] MEDS: Albuterol Nebulizer 2.5mg/3mL HHN SCH ×4 (07:16→18:17)
[2019-02-26] MEDS: Budesonide 0.5 Mg/2 mL Ud HHN SCH ×2 (07:16→18:17)
[2019-02-26] MEDS: INSULIN LISPRO SLIDING SCALE 100 UNITS/ML UNIT SUBQ SCH ×2 (09:30→22:45)
[2019-02-26] MEDS: Multivitamin w/ Minerals Tab GT SCH (09:37)
[2019-02-26] MEDS: Lactobacillus Rhamnosus GG 15 Billion CFU CAP.SPRINK GT SCH (09:38)
[2019-02-26] MEDS: Heparin Sod 5,000Units/ML 5,000 UNITS/ML VIAL SUBQ SCH ×3 (09:40→22:01)
--- NOTE | 2019-02-26 10:39 | Internal Medicine Prog Note ---
Internal Medicine Subjective - Subjective Service Date: 02/26/19 Patient seen and examined:: with staff, chart reviewed Patient is:: awake, interactive, confused, other (still dis-oriented, hx of Dementia, in no distress) Patient Complaints of:: other (copd.) Per staff patient has:: no adverse event, no episodes of fall Internal Medicine Objective - Results Result Diagrams: 02/24/19 04:35 02/26/19 04:40 Recent Labs: Laboratory Last Values WBC 5.2 Th/cmm (4.8-10.8) 02/24/19 04:35 RBC 3.62 Mil/cmm (3.80-5.10) L 02/24/19 04:35 Hgb 11.7 gm/dL (12-16) L 02/24/19 04:35 Hct 34.4 % (41.0-60) L 02/24/19 04:35 MCV 95.1 fl (81-100) 02/24/19 04:35 MCH 32.2 pg (27.0-31.0) H 02/24/19 04:35 MCHC Differential 33.9 pg (28.0-36.0) 02/24/19 04:35 RDW 13.8 % (11.5-20.0) 02/24/19 04:35 Plt Count 171 Th/cmm (150-400) 02/24/19 04:35 MPV 8.0 fl 02/24/19 04:35 Neutrophils % 76.8 % (40.0-80.0) 02/24/19 04:35 Lymphocytes % 14.0 % (20.0-50.0) L 02/24/19 04:35 Monocytes % 6.0 % (2.0-10.0) 02/24/19 04:35 Eosinophils % 2.9 % (0.0-5.0) 02/24/19 04:35 Basophils % 0.3 % (0.0-2.0) 02/24/19 04:35 PT 11.6 SECONDS (9.5-11.5) H 02/15/19 23:40 INR 1.13 (0.5-1.4) 02/15/19 23:40 PTT (Actin FS) 44.0 SECONDS (26.0-38.0) H 02/15/19 23:40 Sodium 139 mEq/L (136-145) 02/26/19 04:40 Potassium 3.9 mEq/L (3.5-5.1) 02/26/19 04:40 Chloride 104 mEq/L (98-107) 02/26/19 04:40 Carbon Dioxide 25.2 mEq/L (21.0-31.0) 02/26/19 04:40 Anion Gap 13.7 (7.0-16.0) 02/26/19 04:40 BUN 18 mg/dL (7-25) 02/26/19 04:40 Creatinine 0.4 mg/dL (0.6-1.2) L 02/26/19 04:40 Est GFR ( Amer) > 60.0 ml/min (>90) 02/26/19 04:40 Est GFR (Non-Af Amer) > 60.0 ml/min 02/26/19 04:40 BUN/Creatinine Ratio 45.0 02/26/19 04:40 Glucose 103 mg/dL (70-105) 02/26/19 04:40 POC Glucose 98 MG/DL (70 - 105) 02/26/19 09:51 Whole Bld Lactic Acid 0.56 mmol/L (0.60-1.99) L 02/16/19 00:00 Calcium 9.1 mg/dL (8.6-10.3) 02/26/19 04:40 Total Bilirubin 0.6 mg/dL (0.3-1.0) 02/15/19 23:40 AST 26 U/L (13-39) 02/15/19 23:40 ALT 40 U/L (7-52) 02/15/19 23:40 Alkaline Phosphatase 114 U/L (34-104) H 02/15/19 23:40 Troponin I 0.01 ng/mL (0.01-0.05) 02/15/19 23:40 Total Protein 6.5 gm/dL (6.0-8.3) 02/15/19 23:40 Albumin 3.3 gm/dL (3.7-5.3) L 02/15/19 23:40 Globulin 3.2 gm/dL 02/15/19 23:40 Albumin/Globulin Ratio 1.0 (1.0-1.8) 02/15/19 23:40 TSH 4.06 uIU/ml (0.34-5.60) 02/15/19 23:40 Vancomycin Trough 24.1 ug/mL (5-10) H 02/26/19 04:40 Random Vancomycin 4.7 ug/mL (5.0-40.0) L 02/16/19 21:15 - Physical Exam Vitals and I&O: Vital Signs Temp 97.5 F 02/26/19 09:13 Pulse 111 02/26/19 09:38 Resp 18 02/26/19 09:13 BP 134/95 02/26/19 09:38 Pulse Ox 100 02/26/19 09:13 Intake & Output 02/25/19 02/26/19 02/26/19 18:59 06:59 18:59 Intake Total 700 100 Balance 700 100 Weight (lbs) 42.638 kg Intake: Intake, IV Amount 100 100 Vancomycin HCl 500 mg In 100 100 Sodium Chloride 0.9% 100 ml @ 100 mls/hr IV Q8HR [facility] Rx#:[id number] Tube Feeding 600 Other: # Voids 3 # Bowel Movements 0 Weight Source Bedscale Active Medications: Current Medications Acetaminophen (Tylenol) 650 mg GT Q6H PRN PRN Reason: mild pain Stop: 04/17/19 18:42 Last Admin: 02/25/19 11:55 Dose: 650 mg Al Hydrox/Mg Hydrox/Simethicone (Maalox) 30 ml GT Q6HR PRN PRN Reason: GI DISTRESS Stop: 04/17/19 18:42 Albuterol Sulfate (Albuterol 2.5mg/3ml Neb Ud) 2.5 mg HHN Q2HR PRN PRN Reason: Shortness of Breath Stop: 04/17/19 18:42 Albuterol Sulfate (Albuterol 2.5mg/3ml Neb Ud) 2.5 mg HHN [id number] [facility] Stop: 04/17/19 18:59 Last Admin: 02/26/19 07:16 Dose: 2.5 mg Ascorbic Acid (Vitamin C) 500 mg GT Q12HR [facility] Stop: 04/17/19 20:59 Last Admin: 02/26/19 09:38 Dose: 500 mg Bisacodyl (Dulcolax 10 Mg Supp) 10 mg RC DAILY PRN PRN Reason: Constipation Stop: 04/17/19 20:14 Budesonide (Pulmicort) 0.5 mg HHN BIDRT [facility] Stop: 04/18/19 06:59 Last Admin: 02/26/19 07:16 Dose: 0.5 mg Carvedilol (Coreg) 6.25 mg GT Q12H [facility] Stop: 04/17/19 21:59 Last Admin: 02/26/19 09:38 Dose: 6.25 mg [place] Oil/[place] Balsam/Trypsin (Venelex) 1 appl TP DAILY [facility] Stop: 04/18/19 08:59 Last Admin: 02/25/19 08:51 Dose: 1 appl Docusate Sodium (Colace) 200 mg GT Q12H PRN PRN Reason: Constipation Stop: 04/17/19 20:14 Enalapril Maleate (Vasotec) 2.5 mg PO BID [facility] Stop: 04/26/19 12:24 Last Admin: 02/26/19 09:37 Dose: 2.5 mg Glucagon (Glucagen) 1 mg IM PRN PRN PRN Reason: Blood Glucose less than 70 Stop: 04/17/19 20:14 Heparin Sodium (Porcine) (Heparin) 5,000 units SUBQ Q12H [facility] Stop: 04/17/19 21:59 Last Admin: 02/26/19 09:40 Dose: 5,000 units Vancomycin HCl 750 mg/ Sodium (Chloride) 250 mls @ 165 mls/hr IV Q12H [facility] Stop: 04/27/19 16:59 Insulin Human Lispro (Humalog Insulin Sliding Scale) 0 units SUBQ Q12HR [facility]; Protocol Stop: 04/17/19 20:59 Last Admin: 02/25/19 22:58 Dose: Not Given Lactobacillus Rhamnosus (Culturelle 15b) 1 each GT DAILY [facility] Stop: 04/18/19 08:59 Last Admin: 02/26/19 09:38 Dose: 1 each Lorazepam (Ativan) 1 mg IM Q6HR PRN; Protocol PRN Reason: Agitation Stop: 04/17/19 02:49 Last Admin: 02/25/19 21:14 Dose: 1 mg Magnesium Hydroxide (Milk Of Magnesia) 30 ml GT HS PRN PRN Reason: Constipation Stop: 04/17/19 18:42 Magnesium Oxide (Mag-Oxide) 400 mg GT BID [facility] Stop: 04/18/19 08:59 Last Admin: 02/26/19 09:37 Dose: 400 mg Miscellaneous (Vancomycin Iv Per Pharmacy) 1 ea MC DAILY [facility] Stop: 04/18/19 08:59 Sodium Phosphate (Fleet Enema) 135 ml RC Q48HR PRN PRN Reason: Constipation Stop: 04/17/19 20:14 Physical Exam: 58 y/o female patient is still combative and uncooperative. Patient has Dysphagia, Requiring G-tube placement, has pulled out G-tube x 3 times already. General: weak, demented, other (very confused.) HEENT: NC/AT, PERRLA Neck: Supple, No JVD Lungs: CTAB, other (Hx of COPD.) Cardiovascular: RRR, Normal S1 Abdomen: soft, non-tender Extremities: clear Neurological: no change - Procedures Procedures: Procedures Procedure Code Date INSERTION OF FEEDING DEVICE INTO STOMACH, PERC APPROACH [id number] 01/02/19 INSERTION OF INFUSION DEVICE INTO R LOW ARM, PERC APPROACH [id number] 01/02/19 INTRODUCTION OF NUTRITIONAL INTO PERIPH VEIN, PERC APPROACH 2S6205B 01/02/19 RESPIRATORY VENTILATION, LESS THAN 24 CONSECUTIVE HOURS [id number] 04/07/18 Internal Medicine Assmt/Plan - Assessment Assessment: MRSA sepsis, treated Diskitis. Osteomyelitis of lumbar spine Anemia. Malnutrition. S/p Trach collar. S/p Percutaneous Endoscopic gastrostomy. Combative Dementia Dysphagia, Requiring G-tube placement, has pulled out g-tube x 3 times already. Psychosis H/o Copd Protein-calorie malnutrition Failure to thrive - Plan Plan: Continuation of care On antibiotics as per ID Continue present meds as directed Monitor Vitals, Labs and Pain management Fall precaution Continue present care management Nutritional Asmnt/Malnutr-PDOC - Dietary Evaluation Malnutrition Findings (Please click <Entered> for more info): Nutritional Asmnt/Malnutrition Start: 02/17/19 17: 23 Text: Status: Complete Freq: Protocol: Document 02/17/19 17:23 LCHENG (Rec: 02/17/19 17:28 [email or web address]) Nutritional Asmnt/Malnutrition Patient General Information Nutritional Screening High Risk Consult Diagnosis osteomyelitis, central line placement Pertinent Medical Hx/Surgical Hx HTN, asthma/COPD, PUD/GERd, osteomylitis, anemia, PEG/ Gtube, schizophrenia, bipolar Subjective Information Consult received for ricky 12 and open wound. Pt seen resting in bed at time of visit. TF off at this time. Current Diet Order/ Nutrition Support Glucerna 1.2 at 60ml/hr x 20hr Pertinent Medications vit C, colace, heperin, humalog, culturelle, mag-oxide , vancomycin Pertinent Labs 02/17 K 3.4, Cr 0.5, glucose 94 Nutritional Hx/Data Height 1.65 m Height (Calculated Centimeters) 165.1 Current Weight (lbs) 36.741 kg Weight (Calculated Kilograms) 36.7 Weight (Calculated Grams) 62567.0 [place] Body Weight 125 Body Mass Index (BMI) 13.4 Weight Status Underweight GI Symptoms GI Symptoms None Last BM none Difficult in: None Skin Integrity/Comment: left foot and bilat arms bruises pressure area Complex - Includes bone to sacrum, skin tear to right foot ricky 12 Estimated Nutritional Goals Calories/Kcals/Kg 25-30 Kcals Calculated 5046-8112 Protein g/k.2-1.4 Protein Calculated 68-80 Fluid: ml 1425-1710ml (1ml/kcal) Nutritional Problem 1. Problem Problem increased nutrition needs Etiology impaired skin integrity Signs/Symptoms: open wound to sacrum Intervention/Recommendation Comments 1. Continue with current TF regimen with Glucerna 1.2 at 60ml/hr x 20hr. It provides 1440kcal, 72g protein, 966ml free water, meeting 100% of nutritional needs. Add Sadi BID for wound healing. 2. Monitor TF rate, tolerance, wt, skin integrity and labs 3. F/U as high risk in 2-3 days Expected Outcomes/Goals Expected Outcomes/Goals 1. Pt to meet at least 90% of nutritional needs via nutrition support with tolerance 2. Wt stability, skin to remain intact, labs to approach WNL.
[2019-02-26] MEDS: Venelex 60gm Tube TP SCH (11:10)
--- NOTE | 2019-02-26 13:11 | General Progress Note ---
Subjective - Review of Systems Service Date: 02/26/19 Subjective: Patient exam aimed discussed with the nurse chart reviewed patient's clinically unchanged Objective - Results Result Diagrams: 02/24/19 04:35 02/26/19 04:40 Recent Labs: Laboratory Last Values WBC 5.2 Th/cmm (4.8-10.8) 02/24/19 04:35 RBC 3.62 Mil/cmm (3.80-5.10) L 02/24/19 04:35 Hgb 11.7 gm/dL (12-16) L 02/24/19 04:35 Hct 34.4 % (41.0-60) L 02/24/19 04:35 MCV 95.1 fl (81-100) 02/24/19 04:35 MCH 32.2 pg (27.0-31.0) H 02/24/19 04:35 MCHC Differential 33.9 pg (28.0-36.0) 02/24/19 04:35 RDW 13.8 % (11.5-20.0) 02/24/19 04:35 Plt Count 171 Th/cmm (150-400) 02/24/19 04:35 MPV 8.0 fl 02/24/19 04:35 Neutrophils % 76.8 % (40.0-80.0) 02/24/19 04:35 Lymphocytes % 14.0 % (20.0-50.0) L 02/24/19 04:35 Monocytes % 6.0 % (2.0-10.0) 02/24/19 04:35 Eosinophils % 2.9 % (0.0-5.0) 02/24/19 04:35 Basophils % 0.3 % (0.0-2.0) 02/24/19 04:35 PT 11.6 SECONDS (9.5-11.5) H 02/15/19 23:40 INR 1.13 (0.5-1.4) 02/15/19 23:40 PTT (Actin FS) 44.0 SECONDS (26.0-38.0) H 02/15/19 23:40 Sodium 139 mEq/L (136-145) 02/26/19 04:40 Potassium 3.9 mEq/L (3.5-5.1) 02/26/19 04:40 Chloride 104 mEq/L (98-107) 02/26/19 04:40 Carbon Dioxide 25.2 mEq/L (21.0-31.0) 02/26/19 04:40 Anion Gap 13.7 (7.0-16.0) 02/26/19 04:40 BUN 18 mg/dL (7-25) 02/26/19 04:40 Creatinine 0.4 mg/dL (0.6-1.2) L 02/26/19 04:40 Est GFR ( Amer) > 60.0 ml/min (>90) 02/26/19 04:40 Est GFR (Non-Af Amer) > 60.0 ml/min 02/26/19 04:40 BUN/Creatinine Ratio 45.0 02/26/19 04:40 Glucose 103 mg/dL (70-105) 02/26/19 04:40 POC Glucose 98 MG/DL (70 - 105) 02/26/19 09:51 Whole Bld Lactic Acid 0.56 mmol/L (0.60-1.99) L 02/16/19 00:00 Calcium 9.1 mg/dL (8.6-10.3) 02/26/19 04:40 Total Bilirubin 0.6 mg/dL (0.3-1.0) 02/15/19 23:40 AST 26 U/L (13-39) 02/15/19 23:40 ALT 40 U/L (7-52) 02/15/19 23:40 Alkaline Phosphatase 114 U/L (34-104) H 02/15/19 23:40 Troponin I 0.01 ng/mL (0.01-0.05) 02/15/19 23:40 Total Protein 6.5 gm/dL (6.0-8.3) 02/15/19 23:40 Albumin 3.3 gm/dL (3.7-5.3) L 02/15/19 23:40 Globulin 3.2 gm/dL 02/15/19 23:40 Albumin/Globulin Ratio 1.0 (1.0-1.8) 02/15/19 23:40 TSH 4.06 uIU/ml (0.34-5.60) 02/15/19 23:40 Vancomycin Trough 24.1 ug/mL (5-10) H 02/26/19 04:40 Random Vancomycin 4.7 ug/mL (5.0-40.0) L 02/16/19 21:15 - Physical Exam Vitals and I&O: Vital Signs Temp 97.5 F 02/26/19 09:13 Pulse 77 02/26/19 10:42 Resp 18 02/26/19 10:42 BP 134/95 02/26/19 09:38 Pulse Ox 99 02/26/19 10:42 Intake & Output 02/25/19 02/26/19 02/26/19 18:59 06:59 18:59 Intake Total 700 100 Balance 700 100 Weight (lbs) 42.638 kg Intake: Intake, IV Amount 100 100 Vancomycin HCl 500 mg In 100 100 Sodium Chloride 0.9% 100 ml @ 100 mls/hr IV Q8HR [facility] Rx#:[id number] Tube Feeding 600 Other: # Voids 3 # Bowel Movements 0 Weight Source Bedscale Active Medications: Current Medications Acetaminophen (Tylenol) 650 mg GT Q6H PRN PRN Reason: mild pain Stop: 04/17/19 18:42 Last Admin: 02/25/19 11:55 Dose: 650 mg Al Hydrox/Mg Hydrox/Simethicone (Maalox) 30 ml GT Q6HR PRN PRN Reason: GI DISTRESS Stop: 04/17/19 18:42 Albuterol Sulfate (Albuterol 2.5mg/3ml Neb Ud) 2.5 mg HHN Q2HR PRN PRN Reason: Shortness of Breath Stop: 04/17/19 18:42 Albuterol Sulfate (Albuterol 2.5mg/3ml Neb Ud) 2.5 mg HHN [id number] [facility] Stop: 04/17/19 18:59 Last Admin: 02/26/19 10:42 Dose: 2.5 mg Ascorbic Acid (Vitamin C) 500 mg GT Q12HR [facility] Stop: 04/17/19 20:59 Last Admin: 02/26/19 09:38 Dose: 500 mg Bisacodyl (Dulcolax 10 Mg Supp) 10 mg RC DAILY PRN PRN Reason: Constipation Stop: 04/17/19 20:14 Budesonide (Pulmicort) 0.5 mg HHN BIDRT [facility] Stop: 04/18/19 06:59 Last Admin: 02/26/19 07:16 Dose: 0.5 mg Carvedilol (Coreg) 6.25 mg GT Q12H [facility] Stop: 04/17/19 21:59 Last Admin: 02/26/19 09:38 Dose: 6.25 mg [place] Oil/[place] Balsam/Trypsin (Venelex) 1 appl TP DAILY [facility] Stop: 04/18/19 08:59 Last Admin: 02/26/19 11:10 Dose: 1 appl Docusate Sodium (Colace) 200 mg GT Q12H PRN PRN Reason: Constipation Stop: 04/17/19 20:14 Enalapril Maleate (Vasotec) 2.5 mg PO BID [facility] Stop: 04/26/19 12:24 Last Admin: 02/26/19 09:37 Dose: 2.5 mg Glucagon (Glucagen) 1 mg IM PRN PRN PRN Reason: Blood Glucose less than 70 Stop: 04/17/19 20:14 Heparin Sodium (Porcine) (Heparin) 5,000 units SUBQ Q12H [facility] Stop: 04/17/19 21:59 Last Admin: 02/26/19 09:40 Dose: 5,000 units Vancomycin HCl 750 mg/ Sodium (Chloride) 250 mls @ 165 mls/hr IV Q12H [facility] Stop: 04/27/19 16:59 Insulin Human Lispro (Humalog Insulin Sliding Scale) 0 units SUBQ Q12HR [facility]; Protocol Stop: 04/17/19 20:59 Last Admin: 02/26/19 09:30 Dose: Not Given Lactobacillus Rhamnosus (Culturelle 15b) 1 each GT DAILY [facility] Stop: 04/18/19 08:59 Last Admin: 02/26/19 09:38 Dose: 1 each Lorazepam (Ativan) 1 mg IM Q6HR PRN; Protocol PRN Reason: Agitation Stop: 04/17/19 02:49 Last Admin: 02/25/19 21:14 Dose: 1 mg Magnesium Hydroxide (Milk Of Magnesia) 30 ml GT HS PRN PRN Reason: Constipation Stop: 04/17/19 18:42 Magnesium Oxide (Mag-Oxide) 400 mg GT BID [facility] Stop: 04/18/19 08:59 Last Admin: 02/26/19 09:37 Dose: 400 mg Miscellaneous (Vancomycin Iv Per Pharmacy) 1 ea MC DAILY [facility] Stop: 04/18/19 08:59 Sodium Phosphate (Fleet Enema) 135 ml RC Q48HR PRN PRN Reason: Constipation Stop: 04/17/19 20:14 General: No acute distress HEENT: Mucous membr. moist/pink Neck: Supple, JVD, +2 carotid pulse wo bruit (flat) Cardiovascular: Regular rate, Normal S1, Normal S2, Systolic murmurs Lungs: Clear to auscultation, Normal air movement Abdomen: Bowel sounds, Soft, Other (G-tube) - Procedures Procedures: Procedures Procedure Code Date INSERTION OF FEEDING DEVICE INTO STOMACH, PERC APPROACH [id number] 01/02/19 INSERTION OF INFUSION DEVICE INTO R LOW ARM, PERC APPROACH [id number] 01/02/19 INTRODUCTION OF NUTRITIONAL INTO PERIPH VEIN, PERC APPROACH [id number] 01/02/19 RESPIRATORY VENTILATION, LESS THAN 24 CONSECUTIVE HOURS [id number] 04/07/18 Assessment/Plan - Assessment Assessment: Uncontrolled hypertension MRSA sepsis Osteomyelitis of the lumbosacral spine Discitis lumbosacral spine Dementia Dysphagia with PEG placement Protein calorie malnutrition Psychosis COPD - Plan Plan: Continue antihypertensive treatment continue antibiotics Nutritional Asmnt/Malnutr-PDOC - Dietary Evaluation Malnutrition Findings (Please click <Entered> for more info): Nutritional Asmnt/Malnutrition Start: 02/17/19 17: 23 Text: Status: Complete Freq: Protocol: Document 02/17/19 17:23 LCHENG (Rec: 02/17/19 17:28 [email or web address]) Nutritional Asmnt/Malnutrition Patient General Information Nutritional Screening High Risk Consult Diagnosis osteomyelitis, central line placement Pertinent Medical Hx/Surgical Hx HTN, asthma/COPD, PUD/GERd, osteomylitis, anemia, PEG/ Gtube, schizophrenia, bipolar Subjective Information Consult received for ricky 12 and open wound. Pt seen resting in bed at time of visit. TF off at this time. Current Diet Order/ Nutrition Support Glucerna 1.2 at 60ml/hr x 20hr Pertinent Medications vit C, colace, heperin, humalog, culturelle, mag-oxide , vancomycin Pertinent Labs 02/17 K 3.4, Cr 0.5, glucose 94 Nutritional Hx/Data Height 1.65 m Height (Calculated Centimeters) 165.1 Current Weight (lbs) 36.741 kg Weight (Calculated Kilograms) 36.7 Weight (Calculated Grams) 05366.0 [place] Body Weight 125 Body Mass Index (BMI) 13.4 Weight Status Underweight GI Symptoms GI Symptoms None Last BM none Difficult in: None Skin Integrity/Comment: left foot and bilat arms bruises pressure area Complex - Includes bone to sacrum, skin tear to right foot ricky 12 Estimated Nutritional Goals Calories/Kcals/Kg 25-30 Kcals Calculated 3205-7201 Protein g/k.2-1.4 Protein Calculated 68-80 Fluid: ml 1425-1710ml (1ml/kcal) Nutritional Problem 1. Problem Problem increased nutrition needs Etiology impaired skin integrity Signs/Symptoms: open wound to sacrum Intervention/Recommendation Comments 1. Continue with current TF regimen with Glucerna 1.2 at 60ml/hr x 20hr. It provides 1440kcal, 72g protein, 966ml free water, meeting 100% of nutritional needs. Add Sadi BID for wound healing. 2. Monitor TF rate, tolerance, wt, skin integrity and labs 3. F/U as high risk in 2-3 days Expected Outcomes/Goals Expected Outcomes/Goals 1. Pt to meet at least 90% of nutritional needs via nutrition support with tolerance 2. Wt stability, skin to remain intact, labs to approach WNL.
[2019-02-26] MEDS ORDERED: Dextrose 50% 50 mL Abboject IVP ONE (22:36)
--- NOTE | 2019-02-26 23:26 | Consultation ---
DATE OF CONSULTATION: 02/26/2019 DATE OF SERVICE: 02/26/2019 HISTORY OF PRESENT ILLNESS: This is a 58-year-old male patient with sepsis as well as diskitis and osteomyelitis of the lumbosacral spine. The patient had uncontrolled hypertension and hence Cardiology consult is requested. PAST MEDICAL HISTORY: Hypertension, MRSA sepsis, diskitis, lumbosacral spine, osteomyelitis of the lumbosacral spine, dementia, dysphagia with PEG placement, protein-calorie malnutrition, psychosis, COPD. FAMILY HISTORY: Unremarkable. SOCIAL HISTORY: No history of smoking, alcohol abuse. ALLERGIES: No known allergies. PHYSICAL EXAMINATION: VITAL SIGNS: Blood pressure 124/95 at the present time, before it was 160/90. HEAD: Normocephalic. No lumps or bumps. EYES: Pupils equal, reactive to light. Fundi show AV nicking, sclerae white, conjunctivae pink. NECK: Carotid 2+. Normal upstroke. JVD flat. Thyroid not palpable. Lymph nodes not palpable. CHEST: Shows increased AP diameter. No kyphosis or scoliosis. LUNGS: Bilateral bronchovesicular breath sounds. HEART: PMI fifth intercostal space with lateral to midclavicular line. S1, S2. No S3, S4, soft systolic murmur. ABDOMEN: Soft. Liver, spleen not palpable. No organomegaly. Bowel sounds active. NEUROLOGIC: No focal neurological deficit. The patient has contractures. The patient has a G-tube and neck collar for tracheostomy. CLINICAL IMPRESSION: Uncontrolled hypertension, MRSA sepsis, diskitis of the lumbosacral spine, osteomyelitis of lumbosacral spine, dementia, dysphagia with PEG placement, protein-calorie malnutrition, psychosis, chronic obstructive pulmonary disease. PLAN: The patient is cachectic. Antihypertensive treatment. Echocardiogram. Continue IV antibiotics with vancomycin. [facility]# [id number]
[2019-02-27] MEDS: Albuterol Nebulizer 2.5mg/3mL HHN SCH ×4 (06:55→19:26)
[2019-02-27] MEDS: Budesonide 0.5 Mg/2 mL Ud HHN SCH ×2 (06:55→19:24)
[2019-02-27] MEDS: Lactobacillus Rhamnosus GG 15 Billion CFU CAP.SPRINK GT SCH (08:26)
[2019-02-27] MEDS: Multivitamin w/ Minerals Tab GT SCH (08:26)
[2019-02-27] MEDS: INSULIN LISPRO SLIDING SCALE 100 UNITS/ML UNIT SUBQ SCH ×2 (09:24→23:13)
[2019-02-27 09:37] LABS: % BASOPHILS 0.6 % (0.0-2.0); % EOSINOPHILS 1.3 % (0.0-5.0); % LYMPHOCYTES 10.9 % (20.0-50.0); % MONOCYTES 6.2 % (2.0-10.0); EOSINOPHILE ABSOLUTE 0.1 Th/cmm (0.1-0.4); HEMATOCRIT 36.6 % (41.0-60); HEMOGLOBIN 12.5 gm/dL (12-16); LYMPHOCYTE ABSOLUTE 0.8 Th/cmm (1.5-3.0); MEAN CELL VOLUME 94.8 fl (81-100); MEAN CORPUSCULAR HEMOGLOBIN 32.3 pg (27.0-31.0); MEAN CORPUSCULAR HGB CONC 34.1 pg (28.0-36.0); MEAN PLATELET VOLUME 7.4 fl; MONOCYTE ABSOLUTE 0.5 Th/cmm (0.3-1.0); NEUTROPHILE ABSOLUTE 6.2 Th/cmm (1.8-8.0); PLATELET COUNT 244 Th/cmm (150-400); RED BLOOD COUNT 3.86 Mil/cmm (3.80-5.10); RED CELL DISTRIBUTION WIDTH 13.3 % (11.5-20.0); WHITE BLOOD COUNT 7.6 Th/cmm (4.8-10.8)
[2019-02-27] MEDS: Venelex 60gm Tube TP SCH (09:42)
[2019-02-27] MEDS: Heparin Sod 5,000Units/ML 5,000 UNITS/ML VIAL SUBQ SCH ×3 (09:42→22:23)
[2019-02-27 09:58] LABS: ALBUMIN 3.6 gm/dL (3.7-5.3); ALKALINE PHOSPHATASE 97 U/L (34-104); ANION GAP 13.4 (7.0-16.0); BILIRUBIN,TOTAL 0.7 mg/dL (0.3-1.0); BUN - UREA NITROGEN 19 mg/dL (7-25); CALCIUM SERUM 9.5 mg/dL (8.6-10.3); CARBON DIOXIDE 26.8 mEq/L (21.0-31.0); CHLORIDE 103 mEq/L (98-107); CREATININE - SERUM 0.5 mg/dL (0.6-1.2); GFR AFRICAN-AMERICAN > 60.0 ml/min (>90); GFR NON AFRICAN-AMERICAN > 60.0 ml/min; GLUCOSE 90 mg/dL (70-105); POTASSIUM SERUM 3.2 mEq/L (3.5-5.1); SGOT 23 U/L (13-39); SGPT/ALT 27 U/L (7-52); SODIUM SERUM 140 mEq/L (136-145); TOTAL PROTEIN,SERUM 7.3 gm/dL (6.0-8.3)
[2019-02-27] MEDS ORDERED: Potassium Chloride Elixir 20 mEq /15 mL UDC GT ONE (11:06)
--- NOTE | 2019-02-27 12:38 | General Progress Note ---
Subjective - Review of Systems Events since last encounter: No back pain Subjective: Patient exam aimed discussed with the nurse chart reviewed patient's clinically unchanged Objective - Results Result Diagrams: 02/27/19 09:30 02/27/19 09:30 Recent Labs: Laboratory Last Values WBC 7.6 Th/cmm (4.8-10.8) 02/27/19 09:30 RBC 3.86 Mil/cmm (3.80-5.10) 02/27/19 09:30 Hgb 12.5 gm/dL (12-16) 02/27/19 09:30 Hct 36.6 % (41.0-60) L 02/27/19 09:30 MCV 94.8 fl (81-100) 02/27/19 09:30 MCH 32.3 pg (27.0-31.0) H 02/27/19 09:30 MCHC Differential 34.1 pg (28.0-36.0) 02/27/19 09:30 RDW 13.3 % (11.5-20.0) 02/27/19 09:30 Plt Count 244 Th/cmm (150-400) 02/27/19 09:30 MPV 7.4 fl 02/27/19 09:30 Neutrophils % 81.0 % (40.0-80.0) H 02/27/19 09:30 Lymphocytes % 10.9 % (20.0-50.0) L 02/27/19 09:30 Monocytes % 6.2 % (2.0-10.0) 02/27/19 09:30 Eosinophils % 1.3 % (0.0-5.0) 02/27/19 09:30 Basophils % 0.6 % (0.0-2.0) 02/27/19 09:30 PT 11.6 SECONDS (9.5-11.5) H 02/15/19 23:40 INR 1.13 (0.5-1.4) 02/15/19 23:40 PTT (Actin FS) 44.0 SECONDS (26.0-38.0) H 02/15/19 23:40 Sodium 140 mEq/L (136-145) 02/27/19 09:30 Potassium 3.2 mEq/L (3.5-5.1) L 02/27/19 09:30 Chloride 103 mEq/L (98-107) 02/27/19 09:30 Carbon Dioxide 26.8 mEq/L (21.0-31.0) 02/27/19 09:30 Anion Gap 13.4 (7.0-16.0) 02/27/19 09:30 BUN 19 mg/dL (7-25) 02/27/19 09:30 Creatinine 0.5 mg/dL (0.6-1.2) L 02/27/19 09:30 Est GFR ( Amer) > 60.0 ml/min (>90) 02/27/19 09:30 Est GFR (Non-Af Amer) > 60.0 ml/min 02/27/19 09:30 BUN/Creatinine Ratio 38.0 02/27/19 09:30 Glucose 90 mg/dL (70-105) 02/27/19 09:30 POC Glucose 83 MG/DL (70 - 105) 02/27/19 09:14 Whole Bld Lactic Acid 0.56 mmol/L (0.60-1.99) L 02/16/19 00:00 Calcium 9.5 mg/dL (8.6-10.3) 02/27/19 09:30 Total Bilirubin 0.7 mg/dL (0.3-1.0) 02/27/19 09:30 AST 23 U/L (13-39) 02/27/19 09:30 ALT 27 U/L (7-52) 02/27/19 09:30 Alkaline Phosphatase 97 U/L (34-104) 02/27/19 09:30 Troponin I 0.01 ng/mL (0.01-0.05) 02/15/19 23:40 Total Protein 7.3 gm/dL (6.0-8.3) 02/27/19 09:30 Albumin 3.6 gm/dL (3.7-5.3) L 02/27/19 09:30 Globulin 3.7 gm/dL 02/27/19 09:30 Albumin/Globulin Ratio 1.0 (1.0-1.8) 02/27/19 09:30 TSH 4.06 uIU/ml (0.34-5.60) 02/15/19 23:40 Vancomycin Trough 24.1 ug/mL (5-10) H 02/26/19 04:40 Random Vancomycin 4.7 ug/mL (5.0-40.0) L 02/16/19 21:15 - Physical Exam Vitals and I&O: Vital Signs Temp 97.3 F 02/27/19 11:52 Pulse 62 02/27/19 11:52 Resp 18 02/27/19 11:52 BP 129/71 02/27/19 11:52 Pulse Ox 95 02/27/19 11:52 Intake & Output 02/26/19 02/27/19 02/27/19 18:59 06:59 18:59 Intake Total 500 250 Balance 500 250 Weight (lbs) 42.638 kg Intake: Intake, IV Amount 250 Vancomycin HCl 750 mg In 250 Sodium Chloride 0.9% 250 ml @ 165 mls/hr IV Q12H [facility] Rx#:[id number] Tube Feeding 500 Other: # Voids 3 # Bowel Movements 1 Weight Source Bedscale Active Medications: Current Medications Acetaminophen (Tylenol) 650 mg GT Q6H PRN PRN Reason: mild pain Stop: 04/17/19 18:42 Last Admin: 02/25/19 11:55 Dose: 650 mg Al Hydrox/Mg Hydrox/Simethicone (Maalox) 30 ml GT Q6HR PRN PRN Reason: GI DISTRESS Stop: 04/17/19 18:42 Albuterol Sulfate (Albuterol 2.5mg/3ml Neb Ud) 2.5 mg HHN Q2HR PRN PRN Reason: Shortness of Breath Stop: 04/17/19 18:42 Albuterol Sulfate (Albuterol 2.5mg/3ml Neb Ud) 2.5 mg HHN [id number] [facility] Stop: 04/17/19 18:59 Last Admin: 02/27/19 10:32 Dose: 2.5 mg Ascorbic Acid (Vitamin C) 500 mg GT Q12HR [facility] Stop: 04/17/19 20:59 Last Admin: 02/27/19 08:26 Dose: 500 mg Bisacodyl (Dulcolax 10 Mg Supp) 10 mg RC DAILY PRN PRN Reason: Constipation Stop: 04/17/19 20:14 Budesonide (Pulmicort) 0.5 mg HHN BIDRT [facility] Stop: 04/18/19 06:59 Last Admin: 02/27/19 06:55 Dose: 0.5 mg Carvedilol (Coreg) 6.25 mg GT Q12H [facility] Stop: 04/17/19 21:59 Last Admin: 02/27/19 09:09 Dose: 6.25 mg [place] Oil/[place]ij[place] Balsam/Trypsin (Venelex) 1 appl TP DAILY [facility] Stop: 04/18/19 08:59 Last Admin: 02/27/19 09:42 Dose: 1 appl Docusate Sodium (Colace) 200 mg GT Q12H PRN PRN Reason: Constipation Stop: 04/17/19 20:14 Enalapril Maleate (Vasotec) 2.5 mg PO BID [facility] Stop: 04/26/19 12:24 Last Admin: 02/27/19 08:26 Dose: 2.5 mg Glucagon (Glucagen) 1 mg IM PRN PRN PRN Reason: Blood Glucose less than 70 Stop: 04/17/19 20:14 Heparin Sodium (Porcine) (Heparin) 5,000 units SUBQ Q12H [facility] Stop: 04/17/19 21:59 Last Admin: 02/27/19 09:42 Dose: 5,000 units Vancomycin HCl 750 mg/ Sodium (Chloride) 250 mls @ 165 mls/hr IV Q12H [facility] Stop: 04/27/19 16:59 Last Admin: 02/27/19 05:00 Dose: 165 mls/hr Insulin Human Lispro (Humalog Insulin Sliding Scale) 0 units SUBQ Q12HR [facility]; Protocol Stop: 04/17/19 20:59 Last Admin: 02/27/19 09:24 Dose: Not Given Lactobacillus Rhamnosus (Culturelle 15b) 1 each GT DAILY [facility] Stop: 04/18/19 08:59 Last Admin: 02/27/19 08:26 Dose: 1 each Lorazepam (Ativan) 1 mg IM Q6HR PRN; Protocol PRN Reason: Agitation Stop: 04/17/19 02:49 Last Admin: 02/26/19 21:23 Dose: 1 mg Magnesium Hydroxide (Milk Of Magnesia) 30 ml GT HS PRN PRN Reason: Constipation Stop: 04/17/19 18:42 Magnesium Oxide (Mag-Oxide) 400 mg GT BID [facility] Stop: 04/18/19 08:59 Last Admin: 02/27/19 08:26 Dose: 400 mg Miscellaneous (Vancomycin Iv Per Pharmacy) 1 ea MC DAILY [facility] Stop: 04/18/19 08:59 Ondansetron HCl (Zofran) 4 mg IV Q6H PRN PRN Reason: Nausea / Vomiting Stop: 04/28/19 06:20 Sodium Phosphate (Fleet Enema) 135 ml RC Q48HR PRN PRN Reason: Constipation Stop: 04/17/19 20:14 General: No acute distress HEENT: Mucous membr. moist/pink Neck: Supple, JVD, +2 carotid pulse wo bruit (flat) Cardiovascular: Regular rate, Normal S1, Normal S2, Systolic murmurs Lungs: Clear to auscultation, Normal air movement Abdomen: Bowel sounds, Soft, Other (G-tube) - Procedures Procedures: Procedures Procedure Code Date INSERTION OF FEEDING DEVICE INTO STOMACH, PERC APPROACH [id number] 01/02/19 INSERTION OF INFUSION DEVICE INTO R LOW ARM, PERC APPROACH [id number] 01/02/19 INTRODUCTION OF NUTRITIONAL INTO PERIPH VEIN, PERC APPROACH [id number] 01/02/19 RESPIRATORY VENTILATION, LESS THAN 24 CONSECUTIVE HOURS [id number] 04/07/18 Assessment/Plan - Assessment Assessment: Uncontrolled hypertension MRSA sepsis Osteomyelitis of the lumbosacral spine Discitis lumbosacral spine Dementia Dysphagia with PEG placement Protein calorie malnutrition Psychosis COPD - Plan Plan: Continue antihypertensive treatment continue antibiotics Nutritional Asmnt/Malnutr-PDOC - Dietary Evaluation Malnutrition Findings (Please click <Entered> for more info): Nutritional Asmnt/Malnutrition Start: 02/17/19 17: 23 Text: Status: Complete Freq: Protocol: Document 02/17/19 17:23 LCHENG (Rec: 02/17/19 17:28 [email or web address]) Nutritional Asmnt/Malnutrition Patient General Information Nutritional Screening High Risk Consult Diagnosis osteomyelitis, central line placement Pertinent Medical Hx/Surgical Hx HTN, asthma/COPD, PUD/GERd, osteomylitis, anemia, PEG/ Gtube, schizophrenia, bipolar Subjective Information Consult received for ricky 12 and open wound. Pt seen resting in bed at time of visit. TF off at this time. Current Diet Order/ Nutrition Support Glucerna 1.2 at 60ml/hr x 20hr Pertinent Medications vit C, colace, heperin, humalog, culturelle, mag-oxide , vancomycin Pertinent Labs 02/17 K 3.4, Cr 0.5, glucose 94 Nutritional Hx/Data Height 1.65 m Height (Calculated Centimeters) 165.1 Current Weight (lbs) 36.741 kg Weight (Calculated Kilograms) 36.7 Weight (Calculated Grams) 79653.0 [place] Body Weight 125 Body Mass Index (BMI) 13.4 Weight Status Underweight GI Symptoms GI Symptoms None Last BM none Difficult in: None Skin Integrity/Comment: left foot and bilat arms bruises pressure area Complex - Includes bone to sacrum, skin tear to right foot ricky 12 Estimated Nutritional Goals Calories/Kcals/Kg 25-30 Kcals Calculated 9799-1830 Protein g/k.2-1.4 Protein Calculated 68-80 Fluid: ml 1425-1710ml (1ml/kcal) Nutritional Problem 1. Problem Problem increased nutrition needs Etiology impaired skin integrity Signs/Symptoms: open wound to sacrum Intervention/Recommendation Comments 1. Continue with current TF regimen with Glucerna 1.2 at 60ml/hr x 20hr. It provides 1440kcal, 72g protein, 966ml free water, meeting 100% of nutritional needs. Add Sadi BID for wound healing. 2. Monitor TF rate, tolerance, wt, skin integrity and labs 3. F/U as high risk in 2-3 days Expected Outcomes/Goals Expected Outcomes/Goals 1. Pt to meet at least 90% of nutritional needs via nutrition support with tolerance 2. Wt stability, skin to remain intact, labs to approach WNL.
[2019-02-27] MEDS: GLUCAGON HCl 1 MG KIT IM PRN (21:45)
[2019-02-28 05:17] LABS: % BASOPHILS 0.6 % (0.0-2.0); % EOSINOPHILS 1.4 % (0.0-5.0); % LYMPHOCYTES 19.4 % (20.0-50.0); % MONOCYTES 5.8 % (2.0-10.0); % NEUTROPHILS 72.8 % (40.0-80.0); EOSINOPHILE ABSOLUTE 0.1 Th/cmm (0.1-0.4); HEMATOCRIT 34.5 % (41.0-60); HEMOGLOBIN 11.7 gm/dL (12-16); LYMPHOCYTE ABSOLUTE 1.3 Th/cmm (1.5-3.0); MEAN CELL VOLUME 95.1 fl (81-100); MEAN CORPUSCULAR HEMOGLOBIN 32.2 pg (27.0-31.0); MEAN CORPUSCULAR HGB CONC 33.8 pg (28.0-36.0); MEAN PLATELET VOLUME 7.7 fl; MONOCYTE ABSOLUTE 0.4 Th/cmm (0.3-1.0); NEUTROPHILE ABSOLUTE 4.8 Th/cmm (1.8-8.0); PLATELET COUNT 266 Th/cmm (150-400); RED BLOOD COUNT 3.62 Mil/cmm (3.80-5.10); RED CELL DISTRIBUTION WIDTH 13.3 % (11.5-20.0); WHITE BLOOD COUNT 6.6 Th/cmm (4.8-10.8)
[2019-02-28 05:53] LABS: BUN - UREA NITROGEN 24 mg/dL (7-25); CALCIUM SERUM 9.4 mg/dL (8.6-10.3); CARBON DIOXIDE 24.9 mEq/L (21.0-31.0); CHLORIDE 105 mEq/L (98-107); CREATININE - SERUM 0.4 mg/dL (0.6-1.2); GFR AFRICAN-AMERICAN > 60.0 ml/min (>90); GFR NON AFRICAN-AMERICAN > 60.0 ml/min; GLUCOSE 69 mg/dL (70-105); POTASSIUM SERUM 3.9 mEq/L (3.5-5.1); SODIUM SERUM 139 mEq/L (136-145)
[2019-02-28] MEDS: Albuterol Nebulizer 2.5mg/3mL HHN SCH ×4 (07:44→19:51)
[2019-02-28] MEDS: Budesonide 0.5 Mg/2 mL Ud HHN SCH ×2 (07:52→19:51)
[2019-02-28] MEDS: Heparin Sod 5,000Units/ML 5,000 UNITS/ML VIAL SUBQ SCH ×2 (09:43→21:11)
[2019-02-28] MEDS: Lactobacillus Rhamnosus GG 15 Billion CFU CAP.SPRINK GT SCH (09:55)
[2019-02-28] MEDS: Multivitamin w/ Minerals Tab GT SCH (09:55)
[2019-02-28] MEDS: INSULIN LISPRO SLIDING SCALE 100 UNITS/ML UNIT SUBQ SCH ×2 (09:56→22:28)
--- NOTE | 2019-02-28 11:14 | Infectious Disease Prog Note ---
Infectious Disease Subjective - Review of Systems Service Date: 02/28/19 Subjective: There is no new change, no fever./ Infectious Disease Objective - Results Result Diagrams: 02/28/19 04:25 02/28/19 04:25 Recent Labs: Laboratory Last Values WBC 6.6 Th/cmm (4.8-10.8) 02/28/19 04:25 RBC 3.62 Mil/cmm (3.80-5.10) L 02/28/19 04:25 Hgb 11.7 gm/dL (12-16) L 02/28/19 04:25 Hct 34.5 % (41.0-60) L 02/28/19 04:25 MCV 95.1 fl (81-100) 02/28/19 04:25 MCH 32.2 pg (27.0-31.0) H 02/28/19 04:25 MCHC Differential 33.8 pg (28.0-36.0) 02/28/19 04:25 RDW 13.3 % (11.5-20.0) 02/28/19 04:25 Plt Count 266 Th/cmm (150-400) 02/28/19 04:25 MPV 7.7 fl 02/28/19 04:25 Neutrophils % 72.8 % (40.0-80.0) 02/28/19 04:25 Lymphocytes % 19.4 % (20.0-50.0) L 02/28/19 04:25 Monocytes % 5.8 % (2.0-10.0) 02/28/19 04:25 Eosinophils % 1.4 % (0.0-5.0) 02/28/19 04:25 Basophils % 0.6 % (0.0-2.0) 02/28/19 04:25 PT 11.6 SECONDS (9.5-11.5) H 02/15/19 23:40 INR 1.13 (0.5-1.4) 02/15/19 23:40 PTT (Actin FS) 44.0 SECONDS (26.0-38.0) H 02/15/19 23:40 Sodium 139 mEq/L (136-145) 02/28/19 04:25 Potassium 3.9 mEq/L (3.5-5.1) 02/28/19 04:25 Chloride 105 mEq/L (98-107) 02/28/19 04:25 Carbon Dioxide 24.9 mEq/L (21.0-31.0) 02/28/19 04:25 Anion Gap 13.0 (7.0-16.0) 02/28/19 04:25 BUN 24 mg/dL (7-25) 02/28/19 04:25 Creatinine 0.4 mg/dL (0.6-1.2) L 02/28/19 04:25 Est GFR ( Amer) > 60.0 ml/min (>90) 02/28/19 04:25 Est GFR (Non-Af Amer) > 60.0 ml/min 02/28/19 04:25 BUN/Creatinine Ratio 60.0 02/28/19 04:25 Glucose 69 mg/dL (70-105) L 02/28/19 04:25 POC Glucose 148 MG/DL (70 - 105) H 02/27/19 23:05 Whole Bld Lactic Acid 0.56 mmol/L (0.60-1.99) L 02/16/19 00:00 Calcium 9.4 mg/dL (8.6-10.3) 02/28/19 04:25 Total Bilirubin 0.7 mg/dL (0.3-1.0) 02/27/19 09:30 AST 23 U/L (13-39) 02/27/19 09:30 ALT 27 U/L (7-52) 02/27/19 09:30 Alkaline Phosphatase 97 U/L (34-104) 02/27/19 09:30 Troponin I 0.01 ng/mL (0.01-0.05) 02/15/19 23:40 Total Protein 7.3 gm/dL (6.0-8.3) 02/27/19 09:30 Albumin 3.6 gm/dL (3.7-5.3) L 02/27/19 09:30 Globulin 3.7 gm/dL 02/27/19 09:30 Albumin/Globulin Ratio 1.0 (1.0-1.8) 02/27/19 09:30 TSH 4.06 uIU/ml (0.34-5.60) 02/15/19 23:40 Vancomycin Trough 23.8 ug/mL (5-10) H 02/28/19 04:25 Random Vancomycin 4.7 ug/mL (5.0-40.0) L 02/16/19 21:15 - Physical Exam Vitals and I&O: Vital Signs Temp 97.3 F 02/28/19 04:00 Pulse 76 02/28/19 09:55 Resp 18 02/28/19 07:53 BP 137/78 02/28/19 09:55 Pulse Ox 98 02/28/19 07:53 Intake & Output 02/27/19 02/28/19 02/28/19 18:59 06:59 18:59 Intake Total 650 1930 Output Total 2 Balance 650 1928 Weight (lbs) 42.638 kg 42.638 kg Intake: Intake, IV Amount 250 Vancomycin HCl 750 mg In 250 Sodium Chloride 0.9% 250 ml @ 165 mls/hr IV Q12H [facility] Rx#:[id number] Tube Feeding 400 1200 TPN/PPN 480 Other 250 Output: Urine 2 Other: # Voids 3 2 # Bowel Movements 0 Weight Source Bedscale Bedscale Active Medications: Current Medications Acetaminophen (Tylenol) 650 mg GT Q6H PRN PRN Reason: mild pain Stop: 04/17/19 18:42 Last Admin: 02/25/19 11:55 Dose: 650 mg Al Hydrox/Mg Hydrox/Simethicone (Maalox) 30 ml GT Q6HR PRN PRN Reason: GI DISTRESS Stop: 04/17/19 18:42 Albuterol Sulfate (Albuterol 2.5mg/3ml Neb Ud) 2.5 mg HHN Q2HR PRN PRN Reason: Shortness of Breath Stop: 04/17/19 18:42 Albuterol Sulfate (Albuterol 2.5mg/3ml Neb Ud) 2.5 mg HHN [id number] [facility] Stop: 04/17/19 18:59 Last Admin: 02/28/19 07:44 Dose: 2.5 mg Ascorbic Acid (Vitamin C) 500 mg GT Q12HR [facility] Stop: 04/17/19 20:59 Last Admin: 02/28/19 09:56 Dose: 500 mg Bisacodyl (Dulcolax 10 Mg Supp) 10 mg RC DAILY PRN PRN Reason: Constipation Stop: 04/17/19 20:14 Budesonide (Pulmicort) 0.5 mg HHN BIDRT [facility] Stop: 04/18/19 06:59 Last Admin: 02/28/19 07:52 Dose: 0.5 mg Carvedilol (Coreg) 6.25 mg GT Q12H [facility] Stop: 04/17/19 21:59 Last Admin: 02/27/19 22:02 Dose: 6.25 mg [place] Oil/[place] Balsam/Trypsin (Venelex) 1 appl TP DAILY [facility] Stop: 04/18/19 08:59 Last Admin: 02/27/19 09:42 Dose: 1 appl Docusate Sodium (Colace) 200 mg GT Q12H PRN PRN Reason: Constipation Stop: 04/17/19 20:14 Enalapril Maleate (Vasotec) 2.5 mg PO BID [facility] Stop: 04/26/19 12:24 Last Admin: 02/28/19 09:55 Dose: 2.5 mg Glucagon (Glucagen) 1 mg IM PRN PRN PRN Reason: Blood Glucose less than 70 Stop: 04/17/19 20:14 Last Admin: 02/27/19 21:45 Dose: 1 mg Heparin Sodium (Porcine) (Heparin) 5,000 units SUBQ Q12H [facility] Stop: 04/17/19 21:59 Last Admin: 02/27/19 22:23 Dose: 5,000 units Vancomycin HCl 500 mg/ Sodium (Chloride) 100 mls @ 100 mls/hr IV Q12H [facility] Stop: 04/29/19 22:59 Insulin Human Lispro (Humalog Insulin Sliding Scale) 0 units SUBQ Q12HR [facility]; Protocol Stop: 04/17/19 20:59 Last Admin: 02/28/19 09:56 Dose: Not Given Lactobacillus Rhamnosus (Culturelle 15b) 1 each GT DAILY [facility] Stop: 04/18/19 08:59 Last Admin: 02/28/19 09:55 Dose: 1 each Lorazepam (Ativan) 1 mg IM Q6HR PRN; Protocol PRN Reason: Agitation Stop: 04/17/19 02:49 Last Admin: 02/26/19 21:23 Dose: 1 mg Magnesium Hydroxide (Milk Of Magnesia) 30 ml GT HS PRN PRN Reason: Constipation Stop: 04/17/19 18:42 Magnesium Oxide (Mag-Oxide) 400 mg GT BID [facility] Stop: 04/18/19 08:59 Last Admin: 02/28/19 09:50 Dose: 400 mg Miscellaneous (Vancomycin Iv Per Pharmacy) 1 ea MC DAILY [facility] Stop: 04/18/19 08:59 Ondansetron HCl (Zofran) 4 mg IV Q6H PRN PRN Reason: Nausea / Vomiting Stop: 04/28/19 06:20 Sodium Phosphate (Fleet Enema) 135 ml RC Q48HR PRN PRN Reason: Constipation Stop: 04/17/19 20:14 General: no acute distress, cachectic HEENT: atraumatic, normocephalic, PERRLA, EOMI Neck: supple, no thyromegaly Cardiovascular: S1S2, regular Lungs: clear to auscultation bilaterally, clear to percussion Abdomen: soft, no tender, no distended Extremities: no cyanosis, no clubbing, no edema Neurological: awake, alert Skin: intact - Procedures Procedures: Procedures Procedure Code Date INSERTION OF FEEDING DEVICE INTO STOMACH, PERC APPROACH [id number] 01/02/19 INSERTION OF INFUSION DEVICE INTO R LOW ARM, PERC APPROACH [id number] 01/02/19 INTRODUCTION OF NUTRITIONAL INTO PERIPH VEIN, PERC APPROACH [id number] 01/02/19 RESPIRATORY VENTILATION, LESS THAN 24 CONSECUTIVE HOURS [id number] 04/07/18 Infectious Disease Assmt/Plan - Assessment Assessment: 1. MRSA sepsis. treated 2. discitis/osteomyelitis of lumbar spine. 3. Dementia. 4. Dysphagia requiring G-tube placement, but she has pulled out G-tube 3 times already. 5. Dementia. 6. Protein-calorie malnutrition and failure to thrive. 7. Psychosis. 8. Chronic obstructive pulmonary disease. 9. Leukopenia. improved. - Plan Plan: Continue vanco iv to keep trough level 12 - 20. may dc antibiotic on discharge or in next 5 days. ( End date: 03/02/2019). corrected date Nutritional Asmnt/Malnutr-PDOC - Dietary Evaluation Malnutrition Findings (Please click <Entered> for more info): Nutritional Asmnt/Malnutrition Start: 02/17/19 17: 23 Text: Status: Complete Freq: Protocol: Document 02/17/19 17:23 LCHENG (Rec: 02/17/19 17:28 [email or web address]) Nutritional Asmnt/Malnutrition Patient General Information Nutritional Screening High Risk Consult Diagnosis osteomyelitis, central line placement Pertinent Medical Hx/Surgical Hx HTN, asthma/COPD, PUD/GERd, osteomylitis, anemia, PEG/ Gtube, schizophrenia, bipolar Subjective Information Consult received for ricky 12 and open wound. Pt seen resting in bed at time of visit. TF off at this time. Current Diet Order/ Nutrition Support Glucerna 1.2 at 60ml/hr x 20hr Pertinent Medications vit C, colace, heperin, humalog, culturelle, mag-oxide , vancomycin Pertinent Labs 02/17 K 3.4, Cr 0.5, glucose 94 Nutritional Hx/Data Height 1.65 m Height (Calculated Centimeters) 165.1 Current Weight (lbs) 36.741 kg Weight (Calculated Kilograms) 36.7 Weight (Calculated Grams) 48885.0 [place] Body Weight 125 Body Mass Index (BMI) 13.4 Weight Status Underweight GI Symptoms GI Symptoms None Last BM none Difficult in: None Skin Integrity/Comment: left foot and bilat arms bruises pressure area Complex - Includes bone to sacrum, skin tear to right foot ricky 12 Estimated Nutritional Goals Calories/Kcals/Kg 25-30 Kcals Calculated 8774-8093 Protein g/k.2-1.4 Protein Calculated 68-80 Fluid: ml 1425-1710ml (1ml/kcal) Nutritional Problem 1. Problem Problem increased nutrition needs Etiology impaired skin integrity Signs/Symptoms: open wound to sacrum Intervention/Recommendation Comments 1. Continue with current TF regimen with Glucerna 1.2 at 60ml/hr x 20hr. It provides 1440kcal, 72g protein, 966ml free water, meeting 100% of nutritional needs. Add Sadi BID for wound healing. 2. Monitor TF rate, tolerance, wt, skin integrity and labs 3. F/U as high risk in 2-3 days Expected Outcomes/Goals Expected Outcomes/Goals 1. Pt to meet at least 90% of nutritional needs via nutrition support with tolerance 2. Wt stability, skin to remain intact, labs to approach WNL.
[2019-02-28] MEDS: Venelex 60gm Tube TP SCH (13:50)
--- NOTE | 2019-02-28 14:11 | General Progress Note ---
Subjective - Review of Systems Service Date: 02/28/19 Subjective: Patient exam aimed discussed with the nurse chart reviewed patient's clinically unchanged Objective - Results Result Diagrams: 02/28/19 04:25 02/28/19 04:25 Recent Labs: Laboratory Last Values WBC 6.6 Th/cmm (4.8-10.8) 02/28/19 04:25 RBC 3.62 Mil/cmm (3.80-5.10) L 02/28/19 04:25 Hgb 11.7 gm/dL (12-16) L 02/28/19 04:25 Hct 34.5 % (41.0-60) L 02/28/19 04:25 MCV 95.1 fl (81-100) 02/28/19 04:25 MCH 32.2 pg (27.0-31.0) H 02/28/19 04:25 MCHC Differential 33.8 pg (28.0-36.0) 02/28/19 04:25 RDW 13.3 % (11.5-20.0) 02/28/19 04:25 Plt Count 266 Th/cmm (150-400) 02/28/19 04:25 MPV 7.7 fl 02/28/19 04:25 Neutrophils % 72.8 % (40.0-80.0) 02/28/19 04:25 Lymphocytes % 19.4 % (20.0-50.0) L 02/28/19 04:25 Monocytes % 5.8 % (2.0-10.0) 02/28/19 04:25 Eosinophils % 1.4 % (0.0-5.0) 02/28/19 04:25 Basophils % 0.6 % (0.0-2.0) 02/28/19 04:25 PT 11.6 SECONDS (9.5-11.5) H 02/15/19 23:40 INR 1.13 (0.5-1.4) 02/15/19 23:40 PTT (Actin FS) 44.0 SECONDS (26.0-38.0) H 02/15/19 23:40 Sodium 139 mEq/L (136-145) 02/28/19 04:25 Potassium 3.9 mEq/L (3.5-5.1) 02/28/19 04:25 Chloride 105 mEq/L (98-107) 02/28/19 04:25 Carbon Dioxide 24.9 mEq/L (21.0-31.0) 02/28/19 04:25 Anion Gap 13.0 (7.0-16.0) 02/28/19 04:25 BUN 24 mg/dL (7-25) 02/28/19 04:25 Creatinine 0.4 mg/dL (0.6-1.2) L 02/28/19 04:25 Est GFR ( Amer) > 60.0 ml/min (>90) 02/28/19 04:25 Est GFR (Non-Af Amer) > 60.0 ml/min 02/28/19 04:25 BUN/Creatinine Ratio 60.0 02/28/19 04:25 Glucose 69 mg/dL (70-105) L 02/28/19 04:25 POC Glucose 148 MG/DL (70 - 105) H 02/27/19 23:05 Whole Bld Lactic Acid 0.56 mmol/L (0.60-1.99) L 02/16/19 00:00 Calcium 9.4 mg/dL (8.6-10.3) 02/28/19 04:25 Total Bilirubin 0.7 mg/dL (0.3-1.0) 02/27/19 09:30 AST 23 U/L (13-39) 02/27/19 09:30 ALT 27 U/L (7-52) 02/27/19 09:30 Alkaline Phosphatase 97 U/L (34-104) 02/27/19 09:30 Troponin I 0.01 ng/mL (0.01-0.05) 02/15/19 23:40 Total Protein 7.3 gm/dL (6.0-8.3) 02/27/19 09:30 Albumin 3.6 gm/dL (3.7-5.3) L 02/27/19 09:30 Globulin 3.7 gm/dL 02/27/19 09:30 Albumin/Globulin Ratio 1.0 (1.0-1.8) 02/27/19 09:30 TSH 4.06 uIU/ml (0.34-5.60) 02/15/19 23:40 Vancomycin Trough 23.8 ug/mL (5-10) H 02/28/19 04:25 Random Vancomycin 4.7 ug/mL (5.0-40.0) L 02/16/19 21:15 - Physical Exam Vitals and I&O: Vital Signs Temp 97.3 F 02/28/19 04:00 Pulse 64 02/28/19 13:42 Resp 18 02/28/19 11:56 BP 120/72 02/28/19 13:42 Pulse Ox 98 02/28/19 11:56 Intake & Output 02/27/19 02/28/19 02/28/19 18:59 06:59 18:59 Intake Total 650 1930 Output Total 2 Balance 650 1928 Weight (lbs) 42.638 kg 42.638 kg Intake: Intake, IV Amount 250 Vancomycin HCl 750 mg In 250 Sodium Chloride 0.9% 250 ml @ 165 mls/hr IV Q12H [facility] Rx#:[id number] Tube Feeding 400 1200 TPN/PPN 480 Other 250 Output: Urine 2 Other: # Voids 3 2 # Bowel Movements 0 Weight Source Bedscale Bedscale Active Medications: Current Medications Acetaminophen (Tylenol) 650 mg GT Q6H PRN PRN Reason: mild pain Stop: 04/17/19 18:42 Last Admin: 02/25/19 11:55 Dose: 650 mg Al Hydrox/Mg Hydrox/Simethicone (Maalox) 30 ml GT Q6HR PRN PRN Reason: GI DISTRESS Stop: 04/17/19 18:42 Albuterol Sulfate (Albuterol 2.5mg/3ml Neb Ud) 2.5 mg HHN Q2HR PRN PRN Reason: Shortness of Breath Stop: 04/17/19 18:42 Albuterol Sulfate (Albuterol 2.5mg/3ml Neb Ud) 2.5 mg HHN [id number] [facility] Stop: 04/17/19 18:59 Last Admin: 02/28/19 11:56 Dose: 2.5 mg Ascorbic Acid (Vitamin C) 500 mg GT Q12HR [facility] Stop: 04/17/19 20:59 Last Admin: 02/28/19 09:56 Dose: 500 mg Bisacodyl (Dulcolax 10 Mg Supp) 10 mg RC DAILY PRN PRN Reason: Constipation Stop: 04/17/19 20:14 Budesonide (Pulmicort) 0.5 mg HHN BIDRT [facility] Stop: 04/18/19 06:59 Last Admin: 02/28/19 07:52 Dose: 0.5 mg Carvedilol (Coreg) 6.25 mg GT Q12H [facility] Stop: 04/17/19 21:59 Last Admin: 02/28/19 13:42 Dose: 6.25 mg [place] Oil/[place] Balsam/Trypsin (Venelex) 1 appl TP DAILY [facility] Stop: 04/18/19 08:59 Last Admin: 02/28/19 13:50 Dose: 1 appl Docusate Sodium (Colace) 200 mg GT Q12H PRN PRN Reason: Constipation Stop: 04/17/19 20:14 Enalapril Maleate (Vasotec) 2.5 mg PO BID [facility] Stop: 04/26/19 12:24 Last Admin: 02/28/19 09:55 Dose: 2.5 mg Glucagon (Glucagen) 1 mg IM PRN PRN PRN Reason: Blood Glucose less than 70 Stop: 04/17/19 20:14 Last Admin: 02/27/19 21:45 Dose: 1 mg Heparin Sodium (Porcine) (Heparin) 5,000 units SUBQ Q12H [facility] Stop: 04/17/19 21:59 Last Admin: 02/28/19 09:43 Dose: 5,000 units Vancomycin HCl 500 mg/ Sodium (Chloride) 100 mls @ 100 mls/hr IV Q12H [facility] Stop: 04/29/19 22:59 Insulin Human Lispro (Humalog Insulin Sliding Scale) 0 units SUBQ Q12HR [facility]; Protocol Stop: 04/17/19 20:59 Last Admin: 02/28/19 09:56 Dose: Not Given Lactobacillus Rhamnosus (Culturelle 15b) 1 each GT DAILY [facility] Stop: 04/18/19 08:59 Last Admin: 02/28/19 09:55 Dose: 1 each Lorazepam (Ativan) 1 mg IM Q6HR PRN; Protocol PRN Reason: Agitation Stop: 04/17/19 02:49 Last Admin: 02/28/19 13:07 Dose: 1 mg Magnesium Hydroxide (Milk Of Magnesia) 30 ml GT HS PRN PRN Reason: Constipation Stop: 04/17/19 18:42 Magnesium Oxide (Mag-Oxide) 400 mg GT BID [facility] Stop: 04/18/19 08:59 Last Admin: 02/28/19 09:50 Dose: 400 mg Miscellaneous (Vancomycin Iv Per Pharmacy) 1 ea MC DAILY [facility] Stop: 04/18/19 08:59 Ondansetron HCl (Zofran) 4 mg IV Q6H PRN PRN Reason: Nausea / Vomiting Stop: 04/28/19 06:20 Sodium Phosphate (Fleet Enema) 135 ml RC Q48HR PRN PRN Reason: Constipation Stop: 04/17/19 20:14 General: No acute distress HEENT: Mucous membr. moist/pink Neck: Supple, JVD, +2 carotid pulse wo bruit (flat) Cardiovascular: Regular rate, Normal S1, Normal S2, Systolic murmurs Lungs: Clear to auscultation, Normal air movement Abdomen: Bowel sounds, Soft, Other (G-tube) - Procedures Procedures: Procedures Procedure Code Date INSERTION OF FEEDING DEVICE INTO STOMACH, PERC APPROACH [id number] 01/02/19 INSERTION OF INFUSION DEVICE INTO R LOW ARM, PERC APPROACH [id number] 01/02/19 INTRODUCTION OF NUTRITIONAL INTO PERIPH VEIN, PERC APPROACH [id number] 01/02/19 RESPIRATORY VENTILATION, LESS THAN 24 CONSECUTIVE HOURS [id number] 04/07/18 Assessment/Plan - Assessment Assessment: Uncontrolled hypertension MRSA sepsis Osteomyelitis of the lumbosacral spine Discitis lumbosacral spine Dementia Dysphagia with PEG placement Protein calorie malnutrition Psychosis COPD - Plan Plan: Continue antihypertensive treatment continue antibiotics Nutritional Asmnt/Malnutr-PDOC - Dietary Evaluation Malnutrition Findings (Please click <Entered> for more info): Nutritional Asmnt/Malnutrition Start: 02/17/19 17: 23 Text: Status: Complete Freq: Protocol: Document 02/17/19 17:23 LCHENG (Rec: 02/17/19 17:28 [email or web address]) Nutritional Asmnt/Malnutrition Patient General Information Nutritional Screening High Risk Consult Diagnosis osteomyelitis, central line placement Pertinent Medical Hx/Surgical Hx HTN, asthma/COPD, PUD/GERd, osteomylitis, anemia, PEG/ Gtube, schizophrenia, bipolar Subjective Information Consult received for ricky 12 and open wound. Pt seen resting in bed at time of visit. TF off at this time. Current Diet Order/ Nutrition Support Glucerna 1.2 at 60ml/hr x 20hr Pertinent Medications vit C, colace, heperin, humalog, culturelle, mag-oxide , vancomycin Pertinent Labs 02/17 K 3.4, Cr 0.5, glucose 94 Nutritional Hx/Data Height 1.65 m Height (Calculated Centimeters) 165.1 Current Weight (lbs) 36.741 kg Weight (Calculated Kilograms) 36.7 Weight (Calculated Grams) 50770.0 [place] Body Weight 125 Body Mass Index (BMI) 13.4 Weight Status Underweight GI Symptoms GI Symptoms None Last BM none Difficult in: None Skin Integrity/Comment: left foot and bilat arms bruises pressure area Complex - Includes bone to sacrum, skin tear to right foot ricky 12 Estimated Nutritional Goals Calories/Kcals/Kg 25-30 Kcals Calculated 3582-8571 Protein g/k.2-1.4 Protein Calculated 68-80 Fluid: ml 1425-1710ml (1ml/kcal) Nutritional Problem 1. Problem Problem increased nutrition needs Etiology impaired skin integrity Signs/Symptoms: open wound to sacrum Intervention/Recommendation Comments 1. Continue with current TF regimen with Glucerna 1.2 at 60ml/hr x 20hr. It provides 1440kcal, 72g protein, 966ml free water, meeting 100% of nutritional needs. Add Sadi BID for wound healing. 2. Monitor TF rate, tolerance, wt, skin integrity and labs 3. F/U as high risk in 2-3 days Expected Outcomes/Goals Expected Outcomes/Goals 1. Pt to meet at least 90% of nutritional needs via nutrition support with tolerance 2. Wt stability, skin to remain intact, labs to approach WNL.
--- NOTE | 2019-02-28 15:02 | Internal Medicine Prog Note ---
Internal Medicine Subjective - Subjective Service Date: 02/28/19 Patient seen and examined:: with staff Patient is:: awake, interactive, confused, other (very confused. hx of Dementia , in no distress) Patient Complaints of:: other (copd.) Per staff patient has:: no adverse event, no episodes of fall Internal Medicine Objective - Results Result Diagrams: 02/28/19 04:25 02/28/19 04:25 Recent Labs: Laboratory Last Values WBC 6.6 Th/cmm (4.8-10.8) 02/28/19 04:25 RBC 3.62 Mil/cmm (3.80-5.10) L 02/28/19 04:25 Hgb 11.7 gm/dL (12-16) L 02/28/19 04:25 Hct 34.5 % (41.0-60) L 02/28/19 04:25 MCV 95.1 fl (81-100) 02/28/19 04:25 MCH 32.2 pg (27.0-31.0) H 02/28/19 04:25 MCHC Differential 33.8 pg (28.0-36.0) 02/28/19 04:25 RDW 13.3 % (11.5-20.0) 02/28/19 04:25 Plt Count 266 Th/cmm (150-400) 02/28/19 04:25 MPV 7.7 fl 02/28/19 04:25 Neutrophils % 72.8 % (40.0-80.0) 02/28/19 04:25 Lymphocytes % 19.4 % (20.0-50.0) L 02/28/19 04:25 Monocytes % 5.8 % (2.0-10.0) 02/28/19 04:25 Eosinophils % 1.4 % (0.0-5.0) 02/28/19 04:25 Basophils % 0.6 % (0.0-2.0) 02/28/19 04:25 PT 11.6 SECONDS (9.5-11.5) H 02/15/19 23:40 INR 1.13 (0.5-1.4) 02/15/19 23:40 PTT (Actin FS) 44.0 SECONDS (26.0-38.0) H 02/15/19 23:40 Sodium 139 mEq/L (136-145) 02/28/19 04:25 Potassium 3.9 mEq/L (3.5-5.1) 02/28/19 04:25 Chloride 105 mEq/L (98-107) 02/28/19 04:25 Carbon Dioxide 24.9 mEq/L (21.0-31.0) 02/28/19 04:25 Anion Gap 13.0 (7.0-16.0) 02/28/19 04:25 BUN 24 mg/dL (7-25) 02/28/19 04:25 Creatinine 0.4 mg/dL (0.6-1.2) L 02/28/19 04:25 Est GFR ( Amer) > 60.0 ml/min (>90) 02/28/19 04:25 Est GFR (Non-Af Amer) > 60.0 ml/min 02/28/19 04:25 BUN/Creatinine Ratio 60.0 02/28/19 04:25 Glucose 69 mg/dL (70-105) L 02/28/19 04:25 POC Glucose 148 MG/DL (70 - 105) H 02/27/19 23:05 Whole Bld Lactic Acid 0.56 mmol/L (0.60-1.99) L 02/16/19 00:00 Calcium 9.4 mg/dL (8.6-10.3) 02/28/19 04:25 Total Bilirubin 0.7 mg/dL (0.3-1.0) 02/27/19 09:30 AST 23 U/L (13-39) 02/27/19 09:30 ALT 27 U/L (7-52) 02/27/19 09:30 Alkaline Phosphatase 97 U/L (34-104) 02/27/19 09:30 Troponin I 0.01 ng/mL (0.01-0.05) 02/15/19 23:40 Total Protein 7.3 gm/dL (6.0-8.3) 02/27/19 09:30 Albumin 3.6 gm/dL (3.7-5.3) L 02/27/19 09:30 Globulin 3.7 gm/dL 02/27/19 09:30 Albumin/Globulin Ratio 1.0 (1.0-1.8) 02/27/19 09:30 TSH 4.06 uIU/ml (0.34-5.60) 02/15/19 23:40 Vancomycin Trough 23.8 ug/mL (5-10) H 02/28/19 04:25 Random Vancomycin 4.7 ug/mL (5.0-40.0) L 02/16/19 21:15 - Physical Exam Vitals and I&O: Vital Signs Temp 97.3 F 02/28/19 04:00 Pulse 64 02/28/19 13:42 Resp 18 02/28/19 11:56 BP 120/72 02/28/19 13:42 Pulse Ox 98 02/28/19 11:56 Intake & Output 02/27/19 02/28/19 02/28/19 18:59 06:59 18:59 Intake Total 650 1930 Output Total 2 Balance 650 1928 Weight (lbs) 42.638 kg 42.638 kg Intake: Intake, IV Amount 250 Vancomycin HCl 750 mg In 250 Sodium Chloride 0.9% 250 ml @ 165 mls/hr IV Q12H [facility] Rx#:[id number] Tube Feeding 400 1200 TPN/PPN 480 Other 250 Output: Urine 2 Other: # Voids 3 2 # Bowel Movements 0 Weight Source Bedscale Bedscale Active Medications: Current Medications Acetaminophen (Tylenol) 650 mg GT Q6H PRN PRN Reason: mild pain Stop: 04/17/19 18:42 Last Admin: 02/25/19 11:55 Dose: 650 mg Al Hydrox/Mg Hydrox/Simethicone (Maalox) 30 ml GT Q6HR PRN PRN Reason: GI DISTRESS Stop: 04/17/19 18:42 Albuterol Sulfate (Albuterol 2.5mg/3ml Neb Ud) 2.5 mg HHN Q2HR PRN PRN Reason: Shortness of Breath Stop: 04/17/19 18:42 Albuterol Sulfate (Albuterol 2.5mg/3ml Neb Ud) 2.5 mg HHN [id number] [facility] Stop: 04/17/19 18:59 Last Admin: 02/28/19 11:56 Dose: 2.5 mg Ascorbic Acid (Vitamin C) 500 mg GT Q12HR [facility] Stop: 04/17/19 20:59 Last Admin: 02/28/19 09:56 Dose: 500 mg Bisacodyl (Dulcolax 10 Mg Supp) 10 mg RC DAILY PRN PRN Reason: Constipation Stop: 04/17/19 20:14 Budesonide (Pulmicort) 0.5 mg HHN BIDRT [facility] Stop: 04/18/19 06:59 Last Admin: 02/28/19 07:52 Dose: 0.5 mg Carvedilol (Coreg) 6.25 mg GT Q12H [facility] Stop: 04/17/19 21:59 Last Admin: 02/28/19 13:42 Dose: 6.25 mg [place] Oil/[place] Balsam/Trypsin (Venelex) 1 appl TP DAILY [facility] Stop: 04/18/19 08:59 Last Admin: 02/28/19 13:50 Dose: 1 appl Docusate Sodium (Colace) 200 mg GT Q12H PRN PRN Reason: Constipation Stop: 04/17/19 20:14 Enalapril Maleate (Vasotec) 2.5 mg PO BID [facility] Stop: 04/26/19 12:24 Last Admin: 02/28/19 09:55 Dose: 2.5 mg Glucagon (Glucagen) 1 mg IM PRN PRN PRN Reason: Blood Glucose less than 70 Stop: 04/17/19 20:14 Last Admin: 02/27/19 21:45 Dose: 1 mg Heparin Sodium (Porcine) (Heparin) 5,000 units SUBQ Q12H [facility] Stop: 04/17/19 21:59 Last Admin: 02/28/19 09:43 Dose: 5,000 units Vancomycin HCl 500 mg/ Sodium (Chloride) 100 mls @ 100 mls/hr IV Q12H [facility] Stop: 04/29/19 22:59 Insulin Human Lispro (Humalog Insulin Sliding Scale) 0 units SUBQ Q12HR [facility]; Protocol Stop: 04/17/19 20:59 Last Admin: 02/28/19 09:56 Dose: Not Given Lactobacillus Rhamnosus (Culturelle 15b) 1 each GT DAILY [facility] Stop: 04/18/19 08:59 Last Admin: 02/28/19 09:55 Dose: 1 each Lorazepam (Ativan) 1 mg IM Q6HR PRN; Protocol PRN Reason: Agitation Stop: 04/17/19 02:49 Last Admin: 02/28/19 13:07 Dose: 1 mg Magnesium Hydroxide (Milk Of Magnesia) 30 ml GT HS PRN PRN Reason: Constipation Stop: 04/17/19 18:42 Magnesium Oxide (Mag-Oxide) 400 mg GT BID [facility] Stop: 04/18/19 08:59 Last Admin: 02/28/19 09:50 Dose: 400 mg Miscellaneous (Vancomycin Iv Per Pharmacy) 1 ea MC DAILY [facility] Stop: 04/18/19 08:59 Ondansetron HCl (Zofran) 4 mg IV Q6H PRN PRN Reason: Nausea / Vomiting Stop: 04/28/19 06:20 Sodium Phosphate (Fleet Enema) 135 ml RC Q48HR PRN PRN Reason: Constipation Stop: 04/17/19 20:14 Physical Exam: 58 y/o female patient is still combative and uncooperative. Patient has Dysphagia, Requiring G-tube placement, has pulled out G-tube x 3 times already, we will continue to monitor her. General: weak, demented, other (very confused.) HEENT: NC/AT, PERRLA Neck: Supple, No JVD Lungs: CTAB, other (Hx of COPD.) Cardiovascular: RRR, Normal S1 Abdomen: soft, non-tender Extremities: clear Neurological: no change, disorganized - Procedures Procedures: Procedures Procedure Code Date INSERTION OF FEEDING DEVICE INTO STOMACH, PERC APPROACH [id number] 01/02/19 INSERTION OF INFUSION DEVICE INTO R LOW ARM, PERC APPROACH [id number] 01/02/19 INTRODUCTION OF NUTRITIONAL INTO PERIPH VEIN, PERC APPROACH [id number] 01/02/19 RESPIRATORY VENTILATION, LESS THAN 24 CONSECUTIVE HOURS [id number] 04/07/18 Internal Medicine Assmt/Plan - Assessment Assessment: MRSA sepsis, treated Diskitis. Osteomyelitis of lumbar spine Anemia. Malnutrition. S/p Trach collar. S/p Percutaneous Endoscopic gastrostomy. Combative Dementia Dysphagia, Requiring G-tube placement, has pulled out g-tube x 3 times already. Psychosis H/o Copd Protein-calorie malnutrition Failure to thrive - Plan Plan: Continuation of care On antibiotics as per ID Continue present meds as directed Monitor Vitals, Labs and Pain management Fall precaution Continue present care management Nutritional Asmnt/Malnutr-PDOC - Dietary Evaluation Malnutrition Findings (Please click <Entered> for more info): Nutritional Asmnt/Malnutrition Start: 02/17/19 17: 23 Text: Status: Complete Freq: Protocol: Document 02/17/19 17:23 LCHENG (Rec: 02/17/19 17:28 ANMOLG [email or web address]) Nutritional Asmnt/Malnutrition Patient General Information Nutritional Screening High Risk Consult Diagnosis osteomyelitis, central line placement Pertinent Medical Hx/Surgical Hx HTN, asthma/COPD, PUD/GERd, osteomylitis, anemia, PEG/ Gtube, schizophrenia, bipolar Subjective Information Consult received for ricky 12 and open wound. Pt seen resting in bed at time of visit. TF off at this time. Current Diet Order/ Nutrition Support Glucerna 1.2 at 60ml/hr x 20hr Pertinent Medications vit C, colace, heperin, humalog, culturelle, mag-oxide , vancomycin Pertinent Labs 02/17 K 3.4, Cr 0.5, glucose 94 Nutritional Hx/Data Height 1.65 m Height (Calculated Centimeters) 165.1 Current Weight (lbs) 36.741 kg Weight (Calculated Kilograms) 36.7 Weight (Calculated Grams) 17900.0 [place] Body Weight 125 Body Mass Index (BMI) 13.4 Weight Status Underweight GI Symptoms GI Symptoms None Last BM none Difficult in: None Skin Integrity/Comment: left foot and bilat arms bruises pressure area Complex - Includes bone to sacrum, skin tear to right foot ricky 12 Estimated Nutritional Goals Calories/Kcals/Kg 25-30 Kcals Calculated 0675-4421 Protein g/k.2-1.4 Protein Calculated 68-80 Fluid: ml 1425-1710ml (1ml/kcal) Nutritional Problem 1. Problem Problem increased nutrition needs Etiology impaired skin integrity Signs/Symptoms: open wound to sacrum Intervention/Recommendation Comments 1. Continue with current TF regimen with Glucerna 1.2 at 60ml/hr x 20hr. It provides 1440kcal, 72g protein, 966ml free water, meeting 100% of nutritional needs. Add Sadi BID for wound healing. 2. Monitor TF rate, tolerance, wt, skin integrity and labs 3. F/U as high risk in 2-3 days Expected Outcomes/Goals Expected Outcomes/Goals 1. Pt to meet at least 90% of nutritional needs via nutrition support with tolerance 2. Wt stability, skin to remain intact, labs to approach WNL.
[2019-02-28] MEDS: GLUCAGON HCl 1 MG KIT IM PRN (21:12)
[2019-02-28] MEDS: Vancomycin HCl 500 MG in Sodium Chloride 0.9% 100 ML IV SCH (22:28)
[2019-03-01] MEDS: Albuterol Nebulizer 2.5mg/3mL HHN SCH ×4 (07:48→18:57)
[2019-03-01] MEDS: Budesonide 0.5 Mg/2 mL Ud HHN SCH ×2 (07:52→18:57)
[2019-03-01] MEDS: Multivitamin w/ Minerals Tab GT SCH (09:09)
[2019-03-01] MEDS: Lactobacillus Rhamnosus GG 15 Billion CFU CAP.SPRINK GT SCH (09:09)
[2019-03-01] MEDS: Venelex 60gm Tube TP SCH (09:14)
[2019-03-01] MEDS: Heparin Sod 5,000Units/ML 5,000 UNITS/ML VIAL SUBQ SCH ×2 (09:15→22:37)
[2019-03-01] MEDS: INSULIN LISPRO SLIDING SCALE 100 UNITS/ML UNIT SUBQ SCH ×2 (10:01→21:13)
[2019-03-01] MEDS: Vancomycin HCl 500 MG in Sodium Chloride 0.9% 100 ML IV SCH ×2 (11:32→23:04)
[2019-03-02] MEDS: Albuterol Nebulizer 2.5mg/3mL HHN SCH ×4 (07:18→18:33)
[2019-03-02] MEDS: Budesonide 0.5 Mg/2 mL Ud HHN SCH ×2 (07:23→18:33)
[2019-03-02] MEDS: Lactobacillus Rhamnosus GG 15 Billion CFU CAP.SPRINK GT SCH (09:46)
[2019-03-02] MEDS: Multivitamin w/ Minerals Tab GT SCH (09:46)
[2019-03-02] MEDS: Heparin Sod 5,000Units/ML 5,000 UNITS/ML VIAL SUBQ SCH ×2 (09:47→22:55)
[2019-03-02] MEDS: INSULIN LISPRO SLIDING SCALE 100 UNITS/ML UNIT SUBQ SCH ×2 (10:08→22:10)
[2019-03-02] MEDS: Vancomycin HCl 500 MG in Sodium Chloride 0.9% 100 ML IV SCH ×2 (10:54→22:55)
--- NOTE | 2019-03-02 12:08 | Internal Medicine Prog Note ---
Internal Medicine Subjective - Subjective Patient seen and examined:: chart reviewed Patient is:: awake, interactive, confused, other (very confuse in no distress) Patient Complaints of:: other (copd.) Per staff patient has:: no adverse event, no episodes of fall Internal Medicine Objective - Results Result Diagrams: 02/28/19 04:25 02/28/19 04:25 Recent Labs: Laboratory Last Values WBC 6.6 Th/cmm (4.8-10.8) 02/28/19 04:25 RBC 3.62 Mil/cmm (3.80-5.10) L 02/28/19 04:25 Hgb 11.7 gm/dL (12-16) L 02/28/19 04:25 Hct 34.5 % (41.0-60) L 02/28/19 04:25 MCV 95.1 fl (81-100) 02/28/19 04:25 MCH 32.2 pg (27.0-31.0) H 02/28/19 04:25 MCHC Differential 33.8 pg (28.0-36.0) 02/28/19 04:25 RDW 13.3 % (11.5-20.0) 02/28/19 04:25 Plt Count 266 Th/cmm (150-400) 02/28/19 04:25 MPV 7.7 fl 02/28/19 04:25 Neutrophils % 72.8 % (40.0-80.0) 02/28/19 04:25 Lymphocytes % 19.4 % (20.0-50.0) L 02/28/19 04:25 Monocytes % 5.8 % (2.0-10.0) 02/28/19 04:25 Eosinophils % 1.4 % (0.0-5.0) 02/28/19 04:25 Basophils % 0.6 % (0.0-2.0) 02/28/19 04:25 PT 11.6 SECONDS (9.5-11.5) H 02/15/19 23:40 INR 1.13 (0.5-1.4) 02/15/19 23:40 PTT (Actin FS) 44.0 SECONDS (26.0-38.0) H 02/15/19 23:40 Sodium 139 mEq/L (136-145) 02/28/19 04:25 Potassium 3.9 mEq/L (3.5-5.1) 02/28/19 04:25 Chloride 105 mEq/L (98-107) 02/28/19 04:25 Carbon Dioxide 24.9 mEq/L (21.0-31.0) 02/28/19 04:25 Anion Gap 13.0 (7.0-16.0) 02/28/19 04:25 BUN 24 mg/dL (7-25) 02/28/19 04:25 Creatinine 0.4 mg/dL (0.6-1.2) L 02/28/19 04:25 Est GFR ( Amer) > 60.0 ml/min (>90) 02/28/19 04:25 Est GFR (Non-Af Amer) > 60.0 ml/min 02/28/19 04:25 BUN/Creatinine Ratio 60.0 02/28/19 04:25 Glucose 69 mg/dL (70-105) L 02/28/19 04:25 POC Glucose 211 MG/DL (70 - 105) H 03/01/19 20:24 Whole Bld Lactic Acid 0.56 mmol/L (0.60-1.99) L 02/16/19 00:00 Calcium 9.4 mg/dL (8.6-10.3) 02/28/19 04:25 Total Bilirubin 0.7 mg/dL (0.3-1.0) 02/27/19 09:30 AST 23 U/L (13-39) 02/27/19 09:30 ALT 27 U/L (7-52) 02/27/19 09:30 Alkaline Phosphatase 97 U/L (34-104) 02/27/19 09:30 Troponin I 0.01 ng/mL (0.01-0.05) 02/15/19 23:40 Total Protein 7.3 gm/dL (6.0-8.3) 02/27/19 09:30 Albumin 3.6 gm/dL (3.7-5.3) L 02/27/19 09:30 Globulin 3.7 gm/dL 02/27/19 09:30 Albumin/Globulin Ratio 1.0 (1.0-1.8) 02/27/19 09:30 TSH 4.06 uIU/ml (0.34-5.60) 02/15/19 23:40 Vancomycin Trough 17.7 ug/mL (5-10) H 03/02/19 10:00 Random Vancomycin 4.7 ug/mL (5.0-40.0) L 02/16/19 21:15 - Physical Exam Vitals and I&O: Vital Signs Temp 97.6 F 03/02/19 07:43 Pulse 82 03/02/19 11:25 Resp 18 03/02/19 11:25 BP 132/82 03/02/19 09:47 Pulse Ox 96 03/02/19 11:25 Intake & Output 03/01/19 03/02/19 03/02/19 18:59 06:59 18:59 Intake Total 820 1050 Balance 820 1050 Weight (lbs) 43.091 kg 43.091 kg Intake: Intake, IV Amount 100 100 Vancomycin HCl 500 mg In 100 100 Sodium Chloride 0.9% 100 ml @ 100 mls/hr IV Q12H COUNTS INCLUDE 234 BEDS AT THE [facility] Rx#:[id number] Tube Feeding 720 700 Other 250 Other: # Voids 3 3 # Bowel Movements 0 2 Weight Source Bedscale Bedscale Active Medications: Current Medications Acetaminophen (Tylenol) 650 mg GT Q6H PRN PRN Reason: mild pain Stop: 04/17/19 18:42 Last Admin: 03/01/19 06:56 Dose: 650 mg Al Hydrox/Mg Hydrox/Simethicone (Maalox) 30 ml GT Q6HR PRN PRN Reason: GI DISTRESS Stop: 04/17/19 18:42 Albuterol Sulfate (Albuterol 2.5mg/3ml Neb Ud) 2.5 mg HHN Q2HR PRN PRN Reason: Shortness of Breath Stop: 04/17/19 18:42 Albuterol Sulfate (Albuterol 2.5mg/3ml Neb Ud) 2.5 mg HHN [id number] COUNTS INCLUDE 234 BEDS AT THE [facility] Stop: 04/17/19 18:59 Last Admin: 03/02/19 11:25 Dose: 2.5 mg Ascorbic Acid (Vitamin C) 500 mg GT Q12HR MADHURI Stop: 04/17/19 20:59 Last Admin: 03/02/19 09:46 Dose: 500 mg Bisacodyl (Dulcolax 10 Mg Supp) 10 mg RC DAILY PRN PRN Reason: Constipation Stop: 04/17/19 20:14 Budesonide (Pulmicort) 0.5 mg HHN BIDRT MADHURI Stop: 04/18/19 06:59 Last Admin: 03/02/19 07:23 Dose: 0.5 mg Carvedilol (Coreg) 6.25 mg GT Q12H MADHURI Stop: 04/17/19 21:59 Last Admin: 03/02/19 09:47 Dose: 6.25 mg [place] Oil/[place] Balsam/Trypsin (Venelex) 1 appl TP DAILY MADHURI Stop: 04/18/19 08:59 Last Admin: 03/01/19 09:14 Dose: 1 appl Docusate Sodium (Colace) 200 mg GT Q12H PRN PRN Reason: Constipation Stop: 04/17/19 20:14 Enalapril Maleate (Vasotec) 2.5 mg PO BID COUNTS INCLUDE 234 BEDS AT THE [facility] Stop: 04/26/19 12:24 Last Admin: 03/02/19 09:46 Dose: 2.5 mg Glucagon (Glucagen) 1 mg IM PRN PRN PRN Reason: Blood Glucose less than 70 Stop: 04/17/19 20:14 Last Admin: 02/28/19 21:12 Dose: 1 mg Heparin Sodium (Porcine) (Heparin) 5,000 units SUBQ Q12H COUNTS INCLUDE 234 BEDS AT THE [facility] Stop: 04/17/19 21:59 Last Admin: 03/02/19 09:47 Dose: 5,000 units Vancomycin HCl 500 mg/ Sodium (Chloride) 100 mls @ 100 mls/hr IV Q12H COUNTS INCLUDE 234 BEDS AT THE [facility] Stop: 04/29/19 22:59 Last Admin: 03/02/19 10:54 Dose: 100 mls/hr Insulin Human Lispro (Humalog Insulin Sliding Scale) 0 units SUBQ Q12HR MADHURI; Protocol Stop: 04/17/19 20:59 Last Admin: 03/02/19 10:08 Dose: Not Given Lactobacillus Rhamnosus (Culturelle 15b) 1 each GT DAILY COUNTS INCLUDE 234 BEDS AT THE [facility] Stop: 04/18/19 08:59 Last Admin: 03/02/19 09:46 Dose: 1 each Lorazepam (Ativan) 1 mg IM Q6HR PRN; Protocol PRN Reason: Agitation Stop: 04/17/19 02:49 Last Admin: 03/01/19 14:21 Dose: 1 mg Magnesium Hydroxide (Milk Of Magnesia) 30 ml GT HS PRN PRN Reason: Constipation Stop: 04/17/19 18:42 Magnesium Oxide (Mag-Oxide) 400 mg GT BID MADHURI Stop: 04/18/19 08:59 Last Admin: 03/02/19 09:46 Dose: 400 mg Miscellaneous (Vancomycin Iv Per Pharmacy) 1 ea MC DAILY MADHURI Stop: 04/18/19 08:59 Ondansetron HCl (Zofran) 4 mg IV Q6H PRN PRN Reason: Nausea / Vomiting Stop: 04/28/19 06:20 Sodium Phosphate (Fleet Enema) 135 ml RC Q48HR PRN PRN Reason: Constipation Stop: 04/17/19 20:14 Physical Exam: 58 y/o female patient is still combative and uncooperative. Patient has Dysphagia, Requiring G-tube placement, has pulled out G-tube x 3 times already, we will continue to monitor her. General: weak, demented, other (very confused.) HEENT: NC/AT, PERRLA Neck: Supple, No JVD Lungs: CTAB, other (Hx of COPD.) Cardiovascular: RRR, Normal S1 Abdomen: soft, non-tender Extremities: clear Neurological: no change, disorganized - Procedures Procedures: Procedures Procedure Code Date INSERTION OF FEEDING DEVICE INTO STOMACH, PERC APPROACH [id number] 01/02/19 INSERTION OF INFUSION DEVICE INTO R LOW ARM, PERC APPROACH [id number] 01/02/19 INTRODUCTION OF NUTRITIONAL INTO PERIPH VEIN, PERC APPROACH [id number] 01/02/19 RESPIRATORY VENTILATION, LESS THAN 24 CONSECUTIVE HOURS [id number] 04/07/18 Internal Medicine Assmt/Plan - Assessment Assessment: MRSA sepsis, treated Diskitis. Osteomyelitis of lumbar spine Anemia. Malnutrition. S/p Trach collar. S/p Percutaneous Endoscopic gastrostomy. Combative Dementia Dysphagia, Requiring G-tube placement, has pulled out g-tube x 3 times already. Psychosis H/o Copd Protein-calorie malnutrition Failure to thrive - Plan Plan: Continuation of care On antibiotics as per ID Continue present meds as directed Monitor Vitals, Labs and Pain management Fall precaution Continue present care management Nutritional Asmnt/Malnutr-PDOC - Dietary Evaluation Malnutrition Findings (Please click <Entered> for more info): Nutritional Asmnt/Malnutrition Start: 02/17/19 17: 23 Text: Status: Complete Freq: Protocol: Document 02/17/19 17:23 LCHENG (Rec: 02/17/19 17:28 [email or web address]) Nutritional Asmnt/Malnutrition Patient General Information Nutritional Screening High Risk Consult Diagnosis osteomyelitis, central line placement Pertinent Medical Hx/Surgical Hx HTN, asthma/COPD, PUD/GERd, osteomylitis, anemia, PEG/ Gtube, schizophrenia, bipolar Subjective Information Consult received for ricky 12 and open wound. Pt seen resting in bed at time of visit. TF off at this time. Current Diet Order/ Nutrition Support Glucerna 1.2 at 60ml/hr x 20hr Pertinent Medications vit C, colace, heperin, humalog, culturelle, mag-oxide , vancomycin Pertinent Labs 02/17 K 3.4, Cr 0.5, glucose 94 Nutritional Hx/Data Height 1.65 m Height (Calculated Centimeters) 165.1 Current Weight (lbs) 36.741 kg Weight (Calculated Kilograms) 36.7 Weight (Calculated Grams) 06811.0 [place] Body Weight 125 Body Mass Index (BMI) 13.4 Weight Status Underweight GI Symptoms GI Symptoms None Last BM none Difficult in: None Skin Integrity/Comment: left foot and bilat arms bruises pressure area Complex - Includes bone to sacrum, skin tear to right foot ricky 12 Estimated Nutritional Goals Calories/Kcals/Kg 25-30 Kcals Calculated 0975-4861 Protein g/k.2-1.4 Protein Calculated 68-80 Fluid: ml 1425-1710ml (1ml/kcal) Nutritional Problem 1. Problem Problem increased nutrition needs Etiology impaired skin integrity Signs/Symptoms: open wound to sacrum Intervention/Recommendation Comments 1. Continue with current TF regimen with Glucerna 1.2 at 60ml/hr x 20hr. It provides 1440kcal, 72g protein, 966ml free water, meeting 100% of nutritional needs. Add Sadi BID for wound healing. 2. Monitor TF rate, tolerance, wt, skin integrity and labs 3. F/U as high risk in 2-3 days Expected Outcomes/Goals Expected Outcomes/Goals 1. Pt to meet at least 90% of nutritional needs via nutrition support with tolerance 2. Wt stability, skin to remain intact, labs to approach WNL.
[2019-03-02] MEDS: Venelex 60gm Tube TP SCH (12:44)
--- NOTE | 2019-03-03 02:11 | Infectious Disease Prog Note ---
Infectious Disease Subjective - Review of Systems Service Date: 03/03/19 Subjective: There is no new change, no fever./ Infectious Disease Objective - Results Result Diagrams: 02/28/19 04:25 02/28/19 04:25 Recent Labs: Laboratory Last Values WBC 6.6 Th/cmm (4.8-10.8) 02/28/19 04:25 RBC 3.62 Mil/cmm (3.80-5.10) L 02/28/19 04:25 Hgb 11.7 gm/dL (12-16) L 02/28/19 04:25 Hct 34.5 % (41.0-60) L 02/28/19 04:25 MCV 95.1 fl (81-100) 02/28/19 04:25 MCH 32.2 pg (27.0-31.0) H 02/28/19 04:25 MCHC Differential 33.8 pg (28.0-36.0) 02/28/19 04:25 RDW 13.3 % (11.5-20.0) 02/28/19 04:25 Plt Count 266 Th/cmm (150-400) 02/28/19 04:25 MPV 7.7 fl 02/28/19 04:25 Neutrophils % 72.8 % (40.0-80.0) 02/28/19 04:25 Lymphocytes % 19.4 % (20.0-50.0) L 02/28/19 04:25 Monocytes % 5.8 % (2.0-10.0) 02/28/19 04:25 Eosinophils % 1.4 % (0.0-5.0) 02/28/19 04:25 Basophils % 0.6 % (0.0-2.0) 02/28/19 04:25 PT 11.6 SECONDS (9.5-11.5) H 02/15/19 23:40 INR 1.13 (0.5-1.4) 02/15/19 23:40 PTT (Actin FS) 44.0 SECONDS (26.0-38.0) H 02/15/19 23:40 Sodium 139 mEq/L (136-145) 02/28/19 04:25 Potassium 3.9 mEq/L (3.5-5.1) 02/28/19 04:25 Chloride 105 mEq/L (98-107) 02/28/19 04:25 Carbon Dioxide 24.9 mEq/L (21.0-31.0) 02/28/19 04:25 Anion Gap 13.0 (7.0-16.0) 02/28/19 04:25 BUN 24 mg/dL (7-25) 02/28/19 04:25 Creatinine 0.4 mg/dL (0.6-1.2) L 02/28/19 04:25 Est GFR ( Amer) > 60.0 ml/min (>90) 02/28/19 04:25 Est GFR (Non-Af Amer) > 60.0 ml/min 02/28/19 04:25 BUN/Creatinine Ratio 60.0 02/28/19 04:25 Glucose 69 mg/dL (70-105) L 02/28/19 04:25 POC Glucose 81 MG/DL (70 - 105) 03/02/19 22:53 Whole Bld Lactic Acid 0.56 mmol/L (0.60-1.99) L 02/16/19 00:00 Calcium 9.4 mg/dL (8.6-10.3) 02/28/19 04:25 Total Bilirubin 0.7 mg/dL (0.3-1.0) 02/27/19 09:30 AST 23 U/L (13-39) 02/27/19 09:30 ALT 27 U/L (7-52) 02/27/19 09:30 Alkaline Phosphatase 97 U/L (34-104) 02/27/19 09:30 Troponin I 0.01 ng/mL (0.01-0.05) 02/15/19 23:40 Total Protein 7.3 gm/dL (6.0-8.3) 02/27/19 09:30 Albumin 3.6 gm/dL (3.7-5.3) L 02/27/19 09:30 Globulin 3.7 gm/dL 02/27/19 09:30 Albumin/Globulin Ratio 1.0 (1.0-1.8) 02/27/19 09:30 TSH 4.06 uIU/ml (0.34-5.60) 02/15/19 23:40 Vancomycin Trough 17.7 ug/mL (5-10) H 03/02/19 10:00 Random Vancomycin 4.7 ug/mL (5.0-40.0) L 02/16/19 21:15 - Physical Exam Vitals and I&O: Vital Signs Temp 98 F 03/03/19 00:00 Pulse 67 03/03/19 00:00 Resp 18 03/03/19 00:00 BP 143/86 03/03/19 00:00 Pulse Ox 93 03/03/19 00:00 Intake & Output 03/02/19 03/02/19 03/03/19 06:59 18:59 06:59 Intake Total 1050 820 Balance 1050 820 Weight (lbs) 43.091 kg 44.906 kg Intake: Intake, IV Amount 100 100 Vancomycin HCl 500 mg In 100 100 Sodium Chloride 0.9% 100 ml @ 100 mls/hr IV Q12H [facility] Rx#:[id number] Tube Feeding 700 720 Other 250 Other: # Voids 3 3 # Bowel Movements 2 0 Weight Source Bedscale Bedscale Active Medications: Current Medications Acetaminophen (Tylenol) 650 mg GT Q6H PRN PRN Reason: mild pain Stop: 04/17/19 18:42 Last Admin: 03/02/19 22:57 Dose: 650 mg Al Hydrox/Mg Hydrox/Simethicone (Maalox) 30 ml GT Q6HR PRN PRN Reason: GI DISTRESS Stop: 04/17/19 18:42 Albuterol Sulfate (Albuterol 2.5mg/3ml Neb Ud) 2.5 mg HHN Q2HR PRN PRN Reason: Shortness of Breath Stop: 04/17/19 18:42 Albuterol Sulfate (Albuterol 2.5mg/3ml Neb Ud) 2.5 mg HHN [id number] [facility] Stop: 04/17/19 18:59 Last Admin: 03/02/19 18:33 Dose: 2.5 mg Ascorbic Acid (Vitamin C) 500 mg GT Q12HR [facility] Stop: 04/17/19 20:59 Last Admin: 03/02/19 22:55 Dose: 500 mg Bisacodyl (Dulcolax 10 Mg Supp) 10 mg RC DAILY PRN PRN Reason: Constipation Stop: 04/17/19 20:14 Budesonide (Pulmicort) 0.5 mg HHN BIDRT [facility] Stop: 04/18/19 06:59 Last Admin: 03/02/19 18:33 Dose: 0.5 mg Carvedilol (Coreg) 6.25 mg GT Q12H MADHURI Stop: 04/17/19 21:59 Last Admin: 03/02/19 22:56 Dose: 6.25 mg [place] Oil/[place] Balsam/Trypsin (Venelex) 1 appl TP DAILY MADHURI Stop: 04/18/19 08:59 Last Admin: 03/02/19 12:44 Dose: 1 appl Docusate Sodium (Colace) 200 mg GT Q12H PRN PRN Reason: Constipation Stop: 04/17/19 20:14 Enalapril Maleate (Vasotec) 2.5 mg PO BID [facility] Stop: 04/26/19 12:24 Last Admin: 03/02/19 17:57 Dose: 2.5 mg Glucagon (Glucagen) 1 mg IM PRN PRN PRN Reason: Blood Glucose less than 70 Stop: 04/17/19 20:14 Last Admin: 02/28/19 21:12 Dose: 1 mg Heparin Sodium (Porcine) (Heparin) 5,000 units SUBQ Q12H MADHURI Stop: 04/17/19 21:59 Last Admin: 03/02/19 22:55 Dose: 5,000 units Vancomycin HCl 500 mg/ Sodium (Chloride) 100 mls @ 100 mls/hr IV Q12H MADHURI Stop: 04/29/19 22:59 Last Admin: 03/02/19 22:55 Dose: 100 mls/hr Insulin Human Lispro (Humalog Insulin Sliding Scale) 0 units SUBQ Q12HR MADHURI; Protocol Stop: 04/17/19 20:59 Last Admin: 03/02/19 10:08 Dose: Not Given Lactobacillus Rhamnosus (Culturelle 15b) 1 each GT DAILY MADHURI Stop: 04/18/19 08:59 Last Admin: 03/02/19 09:46 Dose: 1 each Lorazepam (Ativan) 1 mg IM Q6HR PRN; Protocol PRN Reason: Agitation Stop: 04/17/19 02:49 Last Admin: 03/01/19 14:21 Dose: 1 mg Magnesium Hydroxide (Milk Of Magnesia) 30 ml GT HS PRN PRN Reason: Constipation Stop: 04/17/19 18:42 Magnesium Oxide (Mag-Oxide) 400 mg GT BID MADHURI Stop: 04/18/19 08:59 Last Admin: 03/02/19 17:57 Dose: 400 mg Miscellaneous (Vancomycin Iv Per Pharmacy) 1 ea MC DAILY MADHURI Stop: 04/18/19 08:59 Ondansetron HCl (Zofran) 4 mg IV Q6H PRN PRN Reason: Nausea / Vomiting Stop: 04/28/19 06:20 Sodium Phosphate (Fleet Enema) 135 ml RC Q48HR PRN PRN Reason: Constipation Stop: 04/17/19 20:14 General: no acute distress, cachectic HEENT: atraumatic, normocephalic, PERRLA Neck: supple, no thyromegaly, no lymphadenopathy Cardiovascular: S1S2, regular Lungs: clear to auscultation bilaterally, clear to percussion Abdomen: soft, no tender Extremities: no cyanosis, no clubbing, no edema Neurological: awake, alert Skin: intact - Procedures Procedures: Procedures Procedure Code Date INSERTION OF FEEDING DEVICE INTO STOMACH, PERC APPROACH [id number] 01/02/19 INSERTION OF INFUSION DEVICE INTO R LOW ARM, PERC APPROACH [id number] 01/02/19 INTRODUCTION OF NUTRITIONAL INTO PERIPH VEIN, PERC APPROACH [id number] 01/02/19 RESPIRATORY VENTILATION, LESS THAN 24 CONSECUTIVE HOURS [id number] 04/07/18 Infectious Disease Assmt/Plan - Assessment Assessment: 1. MRSA sepsis. treated 2. discitis/osteomyelitis of lumbar spine. 3. Dementia. 4. Dysphagia requiring G-tube placement, but she has pulled out G-tube 3 times already. 5. Dementia. 6. Protein-calorie malnutrition and failure to thrive. 7. Psychosis. 8. Chronic obstructive pulmonary disease. 9. Leukopenia. improved. - Plan Plan: teto mckeeo iv. Nutritional Asmnt/Malnutr-PDOC - Dietary Evaluation Malnutrition Findings (Please click <Entered> for more info): Nutritional Asmnt/Malnutrition Start: 02/17/19 17: 23 Text: Status: Complete Freq: Protocol: Document 02/17/19 17:23 LCHENG (Rec: 02/17/19 17:28 [email or web address]) Nutritional Asmnt/Malnutrition Patient General Information Nutritional Screening High Risk Consult Diagnosis osteomyelitis, central line placement Pertinent Medical Hx/Surgical Hx HTN, asthma/COPD, PUD/GERd, osteomylitis, anemia, PEG/ Gtube, schizophrenia, bipolar Subjective Information Consult received for ricky 12 and open wound. Pt seen resting in bed at time of visit. TF off at this time. Current Diet Order/ Nutrition Support Glucerna 1.2 at 60ml/hr x 20hr Pertinent Medications vit C, colace, heperin, humalog, culturelle, mag-oxide , vancomycin Pertinent Labs 02/17 K 3.4, Cr 0.5, glucose 94 Nutritional Hx/Data Height 1.65 m Height (Calculated Centimeters) 165.1 Current Weight (lbs) 36.741 kg Weight (Calculated Kilograms) 36.7 Weight (Calculated Grams) 42786.0 [place] Body Weight 125 Body Mass Index (BMI) 13.4 Weight Status Underweight GI Symptoms GI Symptoms None Last BM none Difficult in: None Skin Integrity/Comment: left foot and bilat arms bruises pressure area Complex - Includes bone to sacrum, skin tear to right foot ricky 12 Estimated Nutritional Goals Calories/Kcals/Kg 25-30 Kcals Calculated 8087-5241 Protein g/k.2-1.4 Protein Calculated 68-80 Fluid: ml 1425-1710ml (1ml/kcal) Nutritional Problem 1. Problem Problem increased nutrition needs Etiology impaired skin integrity Signs/Symptoms: open wound to sacrum Intervention/Recommendation Comments 1. Continue with current TF regimen with Glucerna 1.2 at 60ml/hr x 20hr. It provides 1440kcal, 72g protein, 966ml free water, meeting 100% of nutritional needs. Add Sadi BID for wound healing. 2. Monitor TF rate, tolerance, wt, skin integrity and labs 3. F/U as high risk in 2-3 days Expected Outcomes/Goals Expected Outcomes/Goals 1. Pt to meet at least 90% of nutritional needs via nutrition support with tolerance 2. Wt stability, skin to remain intact, labs to approach WNL.
--- NOTE | 2019-03-03 04:30 | Progress Notes ---
DATE: 03/02/2019 HISTORY OF PRESENT ILLNESS: This is a 58-year-old female who was seen and examined. The patient's status remained the same. There were no new problems, call to me today. PHYSICAL EXAMINATION: VITAL SIGNS: Remains stable. SKIN: Normal. HEAD: Normocephalic. EYES: Conjunctivae were pink. There is no icterus in the eyes. Pupils reacting to light. NECK: There was no increased jugular venous distention, no thyromegaly, no lymphadenopathy. Carotids equal both sides. CHEST: Bilaterally symmetrical. Moves well. RESPIRATION: Respiratory movements equal both sides. Trachea is central. There is note to percussion, breath sound, few scattered rales. CARDIOVASCULAR SYSTEM: PMI not well localized. There is no pulsation or thrill. No parasternal heave. S1 normal, S2 physiologic. There were no S3, no rub. ABDOMEN: Soft, no tenderness, no rigidity, no guarding, or organomegaly. Bowel sounds normal. PEG in place. No calf tenderness. Peripheral pulses diminished. IMPRESSION: Hypertension, methicillin-resistant Staphylococcus aureus sepsis, osteomyelitis of the lumbosacral spine, diskitis of lumbosacral spine and dysphagia with status post PEG, protein-calorie malnutrition, chronic obstructive pulmonary disease, psychosis, dementia. Suggest to continue present management. We will be following. JOB# [id number]
[2019-03-03] MEDS: Budesonide 0.5 Mg/2 mL Ud HHN SCH ×2 (07:01→19:10)
[2019-03-03] MEDS: Albuterol Nebulizer 2.5mg/3mL HHN SCH ×4 (07:01→19:10)
[2019-03-03] MEDS: INSULIN LISPRO SLIDING SCALE 100 UNITS/ML UNIT SUBQ SCH ×2 (09:27→21:33)
[2019-03-03] MEDS: Lactobacillus Rhamnosus GG 15 Billion CFU CAP.SPRINK GT SCH (09:41)
[2019-03-03] MEDS: Multivitamin w/ Minerals Tab GT SCH (09:41)
[2019-03-03] MEDS: Heparin Sod 5,000Units/ML 5,000 UNITS/ML VIAL SUBQ SCH (09:41)
[2019-03-03] MEDS: Venelex 60gm Tube TP SCH (09:42)
--- NOTE | 2019-03-03 12:22 | Internal Medicine Prog Note ---
Internal Medicine Subjective - Subjective Service Date: 03/03/19 Patient seen and examined:: with staff Patient is:: awake, interactive, confused, other (Disoriented, in no distress) Patient Complaints of:: other (copd.) Per staff patient has:: no adverse event, no episodes of fall Internal Medicine Objective - Results Result Diagrams: 02/28/19 04:25 02/28/19 04:25 Recent Labs: Laboratory Last Values WBC 6.6 Th/cmm (4.8-10.8) 02/28/19 04:25 RBC 3.62 Mil/cmm (3.80-5.10) L 02/28/19 04:25 Hgb 11.7 gm/dL (12-16) L 02/28/19 04:25 Hct 34.5 % (41.0-60) L 02/28/19 04:25 MCV 95.1 fl (81-100) 02/28/19 04:25 MCH 32.2 pg (27.0-31.0) H 02/28/19 04:25 MCHC Differential 33.8 pg (28.0-36.0) 02/28/19 04:25 RDW 13.3 % (11.5-20.0) 02/28/19 04:25 Plt Count 266 Th/cmm (150-400) 02/28/19 04:25 MPV 7.7 fl 02/28/19 04:25 Neutrophils % 72.8 % (40.0-80.0) 02/28/19 04:25 Lymphocytes % 19.4 % (20.0-50.0) L 02/28/19 04:25 Monocytes % 5.8 % (2.0-10.0) 02/28/19 04:25 Eosinophils % 1.4 % (0.0-5.0) 02/28/19 04:25 Basophils % 0.6 % (0.0-2.0) 02/28/19 04:25 PT 11.6 SECONDS (9.5-11.5) H 02/15/19 23:40 INR 1.13 (0.5-1.4) 02/15/19 23:40 PTT (Actin FS) 44.0 SECONDS (26.0-38.0) H 02/15/19 23:40 Sodium 139 mEq/L (136-145) 02/28/19 04:25 Potassium 3.9 mEq/L (3.5-5.1) 02/28/19 04:25 Chloride 105 mEq/L (98-107) 02/28/19 04:25 Carbon Dioxide 24.9 mEq/L (21.0-31.0) 02/28/19 04:25 Anion Gap 13.0 (7.0-16.0) 02/28/19 04:25 BUN 24 mg/dL (7-25) 02/28/19 04:25 Creatinine 0.4 mg/dL (0.6-1.2) L 02/28/19 04:25 Est GFR ( Amer) > 60.0 ml/min (>90) 02/28/19 04:25 Est GFR (Non-Af Amer) > 60.0 ml/min 02/28/19 04:25 BUN/Creatinine Ratio 60.0 02/28/19 04:25 Glucose 69 mg/dL (70-105) L 02/28/19 04:25 POC Glucose 81 MG/DL (70 - 105) 03/02/19 22:53 Whole Bld Lactic Acid 0.56 mmol/L (0.60-1.99) L 02/16/19 00:00 Calcium 9.4 mg/dL (8.6-10.3) 02/28/19 04:25 Total Bilirubin 0.7 mg/dL (0.3-1.0) 02/27/19 09:30 AST 23 U/L (13-39) 02/27/19 09:30 ALT 27 U/L (7-52) 02/27/19 09:30 Alkaline Phosphatase 97 U/L (34-104) 02/27/19 09:30 Troponin I 0.01 ng/mL (0.01-0.05) 02/15/19 23:40 Total Protein 7.3 gm/dL (6.0-8.3) 02/27/19 09:30 Albumin 3.6 gm/dL (3.7-5.3) L 02/27/19 09:30 Globulin 3.7 gm/dL 02/27/19 09:30 Albumin/Globulin Ratio 1.0 (1.0-1.8) 02/27/19 09:30 TSH 4.06 uIU/ml (0.34-5.60) 02/15/19 23:40 Vancomycin Trough 17.7 ug/mL (5-10) H 03/02/19 10:00 Random Vancomycin 4.7 ug/mL (5.0-40.0) L 02/16/19 21:15 - Physical Exam Vitals and I&O: Vital Signs Temp 99 F 03/03/19 11:51 Pulse 52 03/03/19 11:51 Resp 16 03/03/19 11:51 BP 148/81 03/03/19 11:51 Pulse Ox 94 03/03/19 11:51 Intake & Output 03/02/19 03/03/19 03/03/19 18:59 06:59 18:59 Intake Total 820 Balance 820 Weight (lbs) 44.906 kg 46.992 kg Intake: Intake, IV Amount 100 Vancomycin HCl 500 mg In 100 Sodium Chloride 0.9% 100 ml @ 100 mls/hr IV Q12H [facility] [place] Rx#:[id number] Tube Feeding 720 Other: # Voids 3 2 # Bowel Movements 0 2 Weight Source Bedscale Bedscale Active Medications: Current Medications Acetaminophen (Tylenol) 650 mg GT Q6H PRN PRN Reason: mild pain Stop: 04/17/19 18:42 Last Admin: 03/02/19 22:57 Dose: 650 mg Al Hydrox/Mg Hydrox/Simethicone (Maalox) 30 ml GT Q6HR PRN PRN Reason: GI DISTRESS Stop: 04/17/19 18:42 Albuterol Sulfate (Albuterol 2.5mg/3ml Neb Ud) 2.5 mg HHN Q2HR PRN PRN Reason: Shortness of Breath Stop: 04/17/19 18:42 Albuterol Sulfate (Albuterol 2.5mg/3ml Neb Ud) 2.5 mg HHN [id number] [facility] [place] Stop: 04/17/19 18:59 Last Admin: 03/03/19 11:13 Dose: 2.5 mg Ascorbic Acid (Vitamin C) 500 mg GT Q12HR [facility] Stop: 04/17/19 20:59 Last Admin: 03/03/19 09:41 Dose: 500 mg Bisacodyl (Dulcolax 10 Mg Supp) 10 mg RC DAILY PRN PRN Reason: Constipation Stop: 04/17/19 20:14 Budesonide (Pulmicort) 0.5 mg HHN BIDRT [facility] Stop: 04/18/19 06:59 Last Admin: 03/03/19 07:01 Dose: 0.5 mg Carvedilol (Coreg) 6.25 mg GT Q12H [facility] Stop: 04/17/19 21:59 Last Admin: 03/03/19 09:41 Dose: 6.25 mg [place] Oil/[place] Balsam/Trypsin (Venelex) 1 appl TP DAILY [facility] Stop: 04/18/19 08:59 Last Admin: 03/03/19 09:42 Dose: 1 appl Docusate Sodium (Colace) 200 mg GT Q12H PRN PRN Reason: Constipation Stop: 04/17/19 20:14 Enalapril Maleate (Vasotec) 2.5 mg PO BID [facility] [place] Stop: 04/26/19 12:24 Last Admin: 03/03/19 09:43 Dose: Not Given Glucagon (Glucagen) 1 mg IM PRN PRN PRN Reason: Blood Glucose less than 70 Stop: 04/17/19 20:14 Last Admin: 02/28/19 21:12 Dose: 1 mg Heparin Sodium (Porcine) (Heparin) 5,000 units SUBQ Q12H [facility] Stop: 04/17/19 21:59 Last Admin: 03/03/19 09:41 Dose: 5,000 units Insulin Human Lispro (Humalog Insulin Sliding Scale) 0 units SUBQ Q12HR [facility] [place]; Protocol Stop: 04/17/19 20:59 Last Admin: 03/02/19 22:10 Dose: Not Given Lactobacillus Rhamnosus (Culturelle 15b) 1 each GT DAILY [facility] Stop: 04/18/19 08:59 Last Admin: 03/03/19 09:41 Dose: 1 each Lorazepam (Ativan) 1 mg IM Q6HR PRN; Protocol PRN Reason: Agitation Stop: 04/17/19 02:49 Last Admin: 03/01/19 14:21 Dose: 1 mg Magnesium Hydroxide (Milk Of Magnesia) 30 ml GT HS PRN PRN Reason: Constipation Stop: 04/17/19 18:42 Magnesium Oxide (Mag-Oxide) 400 mg GT BID [facility] Stop: 04/18/19 08:59 Last Admin: 03/03/19 09:41 Dose: 400 mg Ondansetron HCl (Zofran) 4 mg IV Q6H PRN PRN Reason: Nausea / Vomiting Stop: 04/28/19 06:20 Sodium Phosphate (Fleet Enema) 135 ml RC Q48HR PRN PRN Reason: Constipation Stop: 04/17/19 20:14 Physical Exam: 58 y/o female patient is still combative and uncooperative. Patient has Dysphagia, Requiring G-tube placement, has pulled out G-tube x 3 times already, we will continue to monitor her and continue present management. General: weak, demented, other (very confused.) HEENT: NC/AT, PERRLA Neck: Supple, No JVD Lungs: CTAB, other (Hx of COPD.) Cardiovascular: RRR, Normal S1 Abdomen: soft, non-tender Extremities: clear Neurological: no change, disorganized, other (psychosis.) - Procedures Procedures: Procedures Procedure Code Date INSERTION OF FEEDING DEVICE INTO STOMACH, PERC APPROACH [id number] 01/02/19 INSERTION OF INFUSION DEVICE INTO R LOW ARM, PERC APPROACH [id number] 01/02/19 INTRODUCTION OF NUTRITIONAL INTO PERIPH VEIN, PERC APPROACH [id number] 01/02/19 RESPIRATORY VENTILATION, LESS THAN 24 CONSECUTIVE HOURS [id number] 04/07/18 Internal Medicine Assmt/Plan - Assessment Assessment: Hypertension. MRSA sepsis, treated Diskitis. Osteomyelitis of lumbar spine Anemia. Protein Malnutrition. S/p Trach collar. S/p Percutaneous Endoscopic gastrostomy. Combative Dementia Dysphagia, Requiring G-tube placement, has pulled out g-tube x 3 times already. Psychosis Chronic Copd Protein-calorie malnutrition Failure to thrive - Plan Plan: Continuation of care On antibiotics as per ID Continue present meds as directed Monitor Vitals, Labs and Pain management Fall precaution Continue present care management Nutritional Asmnt/Malnutr-PDOC - Dietary Evaluation Malnutrition Findings (Please click <Entered> for more info): Nutritional Asmnt/Malnutrition Start: 02/17/19 17: 23 Text: Status: Complete Freq: Protocol: Document 02/17/19 17:23 LCHENG (Rec: 02/17/19 17:28 [email or web address]) Nutritional Asmnt/Malnutrition Patient General Information Nutritional Screening High Risk Consult Diagnosis osteomyelitis, central line placement Pertinent Medical Hx/Surgical Hx HTN, asthma/COPD, PUD/GERd, osteomylitis, anemia, PEG/ Gtube, schizophrenia, bipolar Subjective Information Consult received for ricky 12 and open wound. Pt seen resting in bed at time of visit. TF off at this time. Current Diet Order/ Nutrition Support Glucerna 1.2 at 60ml/hr x 20hr Pertinent Medications vit C, colace, heperin, humalog, culturelle, mag-oxide , vancomycin Pertinent Labs 02/17 K 3.4, Cr 0.5, glucose 94 Nutritional Hx/Data Height 1.65 m Height (Calculated Centimeters) 165.1 Current Weight (lbs) 36.741 kg Weight (Calculated Kilograms) 36.7 Weight (Calculated Grams) 05949.0 [place] Body Weight 125 Body Mass Index (BMI) 13.4 Weight Status Underweight GI Symptoms GI Symptoms None Last BM none Difficult in: None Skin Integrity/Comment: left foot and bilat arms bruises pressure area Complex - Includes bone to sacrum, skin tear to right foot ricky 12 Estimated Nutritional Goals Calories/Kcals/Kg 25-30 Kcals Calculated 2891-7334 Protein g/k.2-1.4 Protein Calculated 68-80 Fluid: ml 1425-1710ml (1ml/kcal) Nutritional Problem 1. Problem Problem increased nutrition needs Etiology impaired skin integrity Signs/Symptoms: open wound to sacrum Intervention/Recommendation Comments 1. Continue with current TF regimen with Glucerna 1.2 at 60ml/hr x 20hr. It provides 1440kcal, 72g protein, 966ml free water, meeting 100% of nutritional needs. Add Sadi BID for wound healing. 2. Monitor TF rate, tolerance, wt, skin integrity and labs 3. F/U as high risk in 2-3 days Expected Outcomes/Goals Expected Outcomes/Goals 1. Pt to meet at least 90% of nutritional needs via nutrition support with tolerance 2. Wt stability, skin to remain intact, labs to approach WNL.
--- NOTE | 2019-03-03 12:37 | General Progress Note ---
Subjective - Review of Systems Service Date: 03/03/19 Subjective: Patient exam aimed discussed with the nurse chart reviewed patient's clinically unchanged Objective - Results Result Diagrams: 02/28/19 04:25 02/28/19 04:25 Recent Labs: Laboratory Last Values WBC 6.6 Th/cmm (4.8-10.8) 02/28/19 04:25 RBC 3.62 Mil/cmm (3.80-5.10) L 02/28/19 04:25 Hgb 11.7 gm/dL (12-16) L 02/28/19 04:25 Hct 34.5 % (41.0-60) L 02/28/19 04:25 MCV 95.1 fl (81-100) 02/28/19 04:25 MCH 32.2 pg (27.0-31.0) H 02/28/19 04:25 MCHC Differential 33.8 pg (28.0-36.0) 02/28/19 04:25 RDW 13.3 % (11.5-20.0) 02/28/19 04:25 Plt Count 266 Th/cmm (150-400) 02/28/19 04:25 MPV 7.7 fl 02/28/19 04:25 Neutrophils % 72.8 % (40.0-80.0) 02/28/19 04:25 Lymphocytes % 19.4 % (20.0-50.0) L 02/28/19 04:25 Monocytes % 5.8 % (2.0-10.0) 02/28/19 04:25 Eosinophils % 1.4 % (0.0-5.0) 02/28/19 04:25 Basophils % 0.6 % (0.0-2.0) 02/28/19 04:25 PT 11.6 SECONDS (9.5-11.5) H 02/15/19 23:40 INR 1.13 (0.5-1.4) 02/15/19 23:40 PTT (Actin FS) 44.0 SECONDS (26.0-38.0) H 02/15/19 23:40 Sodium 139 mEq/L (136-145) 02/28/19 04:25 Potassium 3.9 mEq/L (3.5-5.1) 02/28/19 04:25 Chloride 105 mEq/L (98-107) 02/28/19 04:25 Carbon Dioxide 24.9 mEq/L (21.0-31.0) 02/28/19 04:25 Anion Gap 13.0 (7.0-16.0) 02/28/19 04:25 BUN 24 mg/dL (7-25) 02/28/19 04:25 Creatinine 0.4 mg/dL (0.6-1.2) L 02/28/19 04:25 Est GFR ( Amer) > 60.0 ml/min (>90) 02/28/19 04:25 Est GFR (Non-Af Amer) > 60.0 ml/min 02/28/19 04:25 BUN/Creatinine Ratio 60.0 02/28/19 04:25 Glucose 69 mg/dL (70-105) L 02/28/19 04:25 POC Glucose 81 MG/DL (70 - 105) 03/02/19 22:53 Whole Bld Lactic Acid 0.56 mmol/L (0.60-1.99) L 02/16/19 00:00 Calcium 9.4 mg/dL (8.6-10.3) 02/28/19 04:25 Total Bilirubin 0.7 mg/dL (0.3-1.0) 02/27/19 09:30 AST 23 U/L (13-39) 02/27/19 09:30 ALT 27 U/L (7-52) 02/27/19 09:30 Alkaline Phosphatase 97 U/L (34-104) 02/27/19 09:30 Troponin I 0.01 ng/mL (0.01-0.05) 02/15/19 23:40 Total Protein 7.3 gm/dL (6.0-8.3) 02/27/19 09:30 Albumin 3.6 gm/dL (3.7-5.3) L 02/27/19 09:30 Globulin 3.7 gm/dL 02/27/19 09:30 Albumin/Globulin Ratio 1.0 (1.0-1.8) 02/27/19 09:30 TSH 4.06 uIU/ml (0.34-5.60) 02/15/19 23:40 Vancomycin Trough 17.7 ug/mL (5-10) H 03/02/19 10:00 Random Vancomycin 4.7 ug/mL (5.0-40.0) L 02/16/19 21:15 - Physical Exam Vitals and I&O: Vital Signs Temp 99 F 03/03/19 11:51 Pulse 52 03/03/19 11:51 Resp 16 03/03/19 11:51 BP 148/81 03/03/19 11:51 Pulse Ox 94 03/03/19 11:51 Intake & Output 03/02/19 03/03/19 03/03/19 18:59 06:59 18:59 Intake Total 820 Balance 820 Weight (lbs) 44.906 kg 46.992 kg Intake: Intake, IV Amount 100 Vancomycin HCl 500 mg In 100 Sodium Chloride 0.9% 100 ml @ 100 mls/hr IV Q12H [facility] Rx#:[id number] Tube Feeding 720 Other: # Voids 3 2 # Bowel Movements 0 2 Weight Source Bedscale Bedscale Active Medications: Current Medications Acetaminophen (Tylenol) 650 mg GT Q6H PRN PRN Reason: mild pain Stop: 04/17/19 18:42 Last Admin: 03/02/19 22:57 Dose: 650 mg Al Hydrox/Mg Hydrox/Simethicone (Maalox) 30 ml GT Q6HR PRN PRN Reason: GI DISTRESS Stop: 04/17/19 18:42 Albuterol Sulfate (Albuterol 2.5mg/3ml Neb Ud) 2.5 mg HHN Q2HR PRN PRN Reason: Shortness of Breath Stop: 04/17/19 18:42 Albuterol Sulfate (Albuterol 2.5mg/3ml Neb Ud) 2.5 mg HHN [id number] [facility] Stop: 04/17/19 18:59 Last Admin: 03/03/19 11:13 Dose: 2.5 mg Ascorbic Acid (Vitamin C) 500 mg GT Q12HR [facility] Stop: 04/17/19 20:59 Last Admin: 03/03/19 09:41 Dose: 500 mg Bisacodyl (Dulcolax 10 Mg Supp) 10 mg RC DAILY PRN PRN Reason: Constipation Stop: 04/17/19 20:14 Budesonide (Pulmicort) 0.5 mg HHN BIDRT [facility] Stop: 04/18/19 06:59 Last Admin: 03/03/19 07:01 Dose: 0.5 mg Carvedilol (Coreg) 6.25 mg GT Q12H [facility] Stop: 04/17/19 21:59 Last Admin: 03/03/19 09:41 Dose: 6.25 mg [place] Oil/[place] Balsam/Trypsin (Venelex) 1 appl TP DAILY [facility] Stop: 04/18/19 08:59 Last Admin: 03/03/19 09:42 Dose: 1 appl Docusate Sodium (Colace) 200 mg GT Q12H PRN PRN Reason: Constipation Stop: 04/17/19 20:14 Enalapril Maleate (Vasotec) 2.5 mg PO BID [facility] Stop: 04/26/19 12:24 Last Admin: 03/03/19 09:43 Dose: Not Given Glucagon (Glucagen) 1 mg IM PRN PRN PRN Reason: Blood Glucose less than 70 Stop: 04/17/19 20:14 Last Admin: 02/28/19 21:12 Dose: 1 mg Heparin Sodium (Porcine) (Heparin) 5,000 units SUBQ Q12H [facility] Stop: 04/17/19 21:59 Last Admin: 03/03/19 09:41 Dose: 5,000 units Insulin Human Lispro (Humalog Insulin Sliding Scale) 0 units SUBQ Q12HR [facility]; Protocol Stop: 04/17/19 20:59 Last Admin: 03/03/19 09:27 Dose: Not Given Lactobacillus Rhamnosus (Culturelle 15b) 1 each GT DAILY [facility] Stop: 04/18/19 08:59 Last Admin: 03/03/19 09:41 Dose: 1 each Lorazepam (Ativan) 1 mg IM Q6HR PRN; Protocol PRN Reason: Agitation Stop: 04/17/19 02:49 Last Admin: 03/01/19 14:21 Dose: 1 mg Magnesium Hydroxide (Milk Of Magnesia) 30 ml GT HS PRN PRN Reason: Constipation Stop: 04/17/19 18:42 Magnesium Oxide (Mag-Oxide) 400 mg GT BID [facility] Stop: 04/18/19 08:59 Last Admin: 03/03/19 09:41 Dose: 400 mg Ondansetron HCl (Zofran) 4 mg IV Q6H PRN PRN Reason: Nausea / Vomiting Stop: 04/28/19 06:20 Sodium Phosphate (Fleet Enema) 135 ml RC Q48HR PRN PRN Reason: Constipation Stop: 04/17/19 20:14 General: No acute distress HEENT: Mucous membr. moist/pink Neck: Supple, JVD, +2 carotid pulse wo bruit (flat) Cardiovascular: Regular rate, Normal S1, Normal S2, Systolic murmurs Lungs: Clear to auscultation, Normal air movement Abdomen: Bowel sounds, Soft, Other (G-tube) - Procedures Procedures: Procedures Procedure Code Date INSERTION OF FEEDING DEVICE INTO STOMACH, PERC APPROACH [id number] 01/02/19 INSERTION OF INFUSION DEVICE INTO R LOW ARM, PERC APPROACH [id number] 01/02/19 INTRODUCTION OF NUTRITIONAL INTO PERIPH VEIN, PERC APPROACH [id number] 01/02/19 RESPIRATORY VENTILATION, LESS THAN 24 CONSECUTIVE HOURS [id number] 04/07/18 Assessment/Plan - Assessment Assessment: Uncontrolled hypertension MRSA sepsis Osteomyelitis of the lumbosacral spine Discitis lumbosacral spine Dementia Dysphagia with PEG placement Protein calorie malnutrition Psychosis COPD - Plan Plan: Continue antihypertensive treatment continue antibiotics Nutritional Asmnt/Malnutr-PDOC - Dietary Evaluation Malnutrition Findings (Please click <Entered> for more info): Nutritional Asmnt/Malnutrition Start: 02/17/19 17: 23 Text: Status: Complete Freq: Protocol: Document 02/17/19 17:23 LCHENG (Rec: 02/17/19 17:28 [email or web address]) Nutritional Asmnt/Malnutrition Patient General Information Nutritional Screening High Risk Consult Diagnosis osteomyelitis, central line placement Pertinent Medical Hx/Surgical Hx HTN, asthma/COPD, PUD/GERd, osteomylitis, anemia, PEG/ Gtube, schizophrenia, bipolar Subjective Information Consult received for ricky 12 and open wound. Pt seen resting in bed at time of visit. TF off at this time. Current Diet Order/ Nutrition Support Glucerna 1.2 at 60ml/hr x 20hr Pertinent Medications vit C, colace, heperin, humalog, culturelle, mag-oxide , vancomycin Pertinent Labs 02/17 K 3.4, Cr 0.5, glucose 94 Nutritional Hx/Data Height 1.65 m Height (Calculated Centimeters) 165.1 Current Weight (lbs) 36.741 kg Weight (Calculated Kilograms) 36.7 Weight (Calculated Grams) 61734.0 [place] Body Weight 125 Body Mass Index (BMI) 13.4 Weight Status Underweight GI Symptoms GI Symptoms None Last BM none Difficult in: None Skin Integrity/Comment: left foot and bilat arms bruises pressure area Complex - Includes bone to sacrum, skin tear to right foot ricky 12 Estimated Nutritional Goals Calories/Kcals/Kg 25-30 Kcals Calculated 6487-2954 Protein g/k.2-1.4 Protein Calculated 68-80 Fluid: ml 1425-1710ml (1ml/kcal) Nutritional Problem 1. Problem Problem increased nutrition needs Etiology impaired skin integrity Signs/Symptoms: open wound to sacrum Intervention/Recommendation Comments 1. Continue with current TF regimen with Glucerna 1.2 at 60ml/hr x 20hr. It provides 1440kcal, 72g protein, 966ml free water, meeting 100% of nutritional needs. Add Sadi BID for wound healing. 2. Monitor TF rate, tolerance, wt, skin integrity and labs 3. F/U as high risk in 2-3 days Expected Outcomes/Goals Expected Outcomes/Goals 1. Pt to meet at least 90% of nutritional needs via nutrition support with tolerance 2. Wt stability, skin to remain intact, labs to approach WNL.
--- NOTE | 2019-03-03 14:29 | Infectious Disease Prog Note ---
Infectious Disease Subjective - Review of Systems Service Date: 03/03/19 Subjective: There is no new change, no fever./ Infectious Disease Objective - Results Result Diagrams: 02/28/19 04:25 02/28/19 04:25 Recent Labs: Laboratory Last Values WBC 6.6 Th/cmm (4.8-10.8) 02/28/19 04:25 RBC 3.62 Mil/cmm (3.80-5.10) L 02/28/19 04:25 Hgb 11.7 gm/dL (12-16) L 02/28/19 04:25 Hct 34.5 % (41.0-60) L 02/28/19 04:25 MCV 95.1 fl (81-100) 02/28/19 04:25 MCH 32.2 pg (27.0-31.0) H 02/28/19 04:25 MCHC Differential 33.8 pg (28.0-36.0) 02/28/19 04:25 RDW 13.3 % (11.5-20.0) 02/28/19 04:25 Plt Count 266 Th/cmm (150-400) 02/28/19 04:25 MPV 7.7 fl 02/28/19 04:25 Neutrophils % 72.8 % (40.0-80.0) 02/28/19 04:25 Lymphocytes % 19.4 % (20.0-50.0) L 02/28/19 04:25 Monocytes % 5.8 % (2.0-10.0) 02/28/19 04:25 Eosinophils % 1.4 % (0.0-5.0) 02/28/19 04:25 Basophils % 0.6 % (0.0-2.0) 02/28/19 04:25 PT 11.6 SECONDS (9.5-11.5) H 02/15/19 23:40 INR 1.13 (0.5-1.4) 02/15/19 23:40 PTT (Actin FS) 44.0 SECONDS (26.0-38.0) H 02/15/19 23:40 Sodium 139 mEq/L (136-145) 02/28/19 04:25 Potassium 3.9 mEq/L (3.5-5.1) 02/28/19 04:25 Chloride 105 mEq/L (98-107) 02/28/19 04:25 Carbon Dioxide 24.9 mEq/L (21.0-31.0) 02/28/19 04:25 Anion Gap 13.0 (7.0-16.0) 02/28/19 04:25 BUN 24 mg/dL (7-25) 02/28/19 04:25 Creatinine 0.4 mg/dL (0.6-1.2) L 02/28/19 04:25 Est GFR ( Amer) > 60.0 ml/min (>90) 02/28/19 04:25 Est GFR (Non-Af Amer) > 60.0 ml/min 02/28/19 04:25 BUN/Creatinine Ratio 60.0 02/28/19 04:25 Glucose 69 mg/dL (70-105) L 02/28/19 04:25 POC Glucose 81 MG/DL (70 - 105) 03/02/19 22:53 Whole Bld Lactic Acid 0.56 mmol/L (0.60-1.99) L 02/16/19 00:00 Calcium 9.4 mg/dL (8.6-10.3) 02/28/19 04:25 Total Bilirubin 0.7 mg/dL (0.3-1.0) 02/27/19 09:30 AST 23 U/L (13-39) 02/27/19 09:30 ALT 27 U/L (7-52) 02/27/19 09:30 Alkaline Phosphatase 97 U/L (34-104) 02/27/19 09:30 Troponin I 0.01 ng/mL (0.01-0.05) 02/15/19 23:40 Total Protein 7.3 gm/dL (6.0-8.3) 02/27/19 09:30 Albumin 3.6 gm/dL (3.7-5.3) L 02/27/19 09:30 Globulin 3.7 gm/dL 02/27/19 09:30 Albumin/Globulin Ratio 1.0 (1.0-1.8) 02/27/19 09:30 TSH 4.06 uIU/ml (0.34-5.60) 02/15/19 23:40 Vancomycin Trough 17.7 ug/mL (5-10) H 03/02/19 10:00 Random Vancomycin 4.7 ug/mL (5.0-40.0) L 02/16/19 21:15 - Physical Exam Vitals and I&O: Vital Signs Temp 99 F 03/03/19 11:51 Pulse 73 03/03/19 14:11 Resp 18 03/03/19 14:11 BP 148/81 03/03/19 11:51 Pulse Ox 94 03/03/19 14:11 Intake & Output 03/02/19 03/03/19 03/03/19 18:59 06:59 18:59 Intake Total 820 Balance 820 Weight (lbs) 44.906 kg 46.992 kg Intake: Intake, IV Amount 100 Vancomycin HCl 500 mg In 100 Sodium Chloride 0.9% 100 ml @ 100 mls/hr IV Q12H [facility] Rx#:[id number] Tube Feeding 720 Other: # Voids 3 2 # Bowel Movements 0 2 Weight Source Bedscale Bedscale Active Medications: Current Medications Acetaminophen (Tylenol) 650 mg GT Q6H PRN PRN Reason: mild pain Stop: 04/17/19 18:42 Last Admin: 03/02/19 22:57 Dose: 650 mg Al Hydrox/Mg Hydrox/Simethicone (Maalox) 30 ml GT Q6HR PRN PRN Reason: GI DISTRESS Stop: 04/17/19 18:42 Albuterol Sulfate (Albuterol 2.5mg/3ml Neb Ud) 2.5 mg HHN Q2HR PRN PRN Reason: Shortness of Breath Stop: 04/17/19 18:42 Albuterol Sulfate (Albuterol 2.5mg/3ml Neb Ud) 2.5 mg HHN [id number] [facility] Stop: 04/17/19 18:59 Last Admin: 03/03/19 14:11 Dose: 2.5 mg Ascorbic Acid (Vitamin C) 500 mg GT Q12HR [facility] Stop: 04/17/19 20:59 Last Admin: 03/03/19 09:41 Dose: 500 mg Bisacodyl (Dulcolax 10 Mg Supp) 10 mg RC DAILY PRN PRN Reason: Constipation Stop: 04/17/19 20:14 Budesonide (Pulmicort) 0.5 mg HHN BIDRT [facility] Stop: 04/18/19 06:59 Last Admin: 03/03/19 07:01 Dose: 0.5 mg Carvedilol (Coreg) 6.25 mg GT Q12H [facility] Stop: 04/17/19 21:59 Last Admin: 03/03/19 09:41 Dose: 6.25 mg [place] Oil/[place] Balsam/Trypsin (Venelex) 1 appl TP DAILY [facility] Stop: 04/18/19 08:59 Last Admin: 03/03/19 09:42 Dose: 1 appl Docusate Sodium (Colace) 200 mg GT Q12H PRN PRN Reason: Constipation Stop: 04/17/19 20:14 Enalapril Maleate (Vasotec) 2.5 mg PO BID [facility] Stop: 04/26/19 12:24 Last Admin: 03/03/19 09:43 Dose: Not Given Glucagon (Glucagen) 1 mg IM PRN PRN PRN Reason: Blood Glucose less than 70 Stop: 04/17/19 20:14 Last Admin: 02/28/19 21:12 Dose: 1 mg Heparin Sodium (Porcine) (Heparin) 5,000 units SUBQ Q12H [facility] Stop: 04/17/19 21:59 Last Admin: 03/03/19 09:41 Dose: 5,000 units Insulin Human Lispro (Humalog Insulin Sliding Scale) 0 units SUBQ Q12HR [facility]; Protocol Stop: 04/17/19 20:59 Last Admin: 03/03/19 09:27 Dose: Not Given Lactobacillus Rhamnosus (Culturelle 15b) 1 each GT DAILY [facility] Stop: 04/18/19 08:59 Last Admin: 03/03/19 09:41 Dose: 1 each Lorazepam (Ativan) 1 mg IM Q6HR PRN; Protocol PRN Reason: Agitation Stop: 04/17/19 02:49 Last Admin: 03/01/19 14:21 Dose: 1 mg Magnesium Hydroxide (Milk Of Magnesia) 30 ml GT HS PRN PRN Reason: Constipation Stop: 04/17/19 18:42 Magnesium Oxide (Mag-Oxide) 400 mg GT BID [facility] Stop: 04/18/19 08:59 Last Admin: 03/03/19 09:41 Dose: 400 mg Ondansetron HCl (Zofran) 4 mg IV Q6H PRN PRN Reason: Nausea / Vomiting Stop: 04/28/19 06:20 Sodium Phosphate (Fleet Enema) 135 ml RC Q48HR PRN PRN Reason: Constipation Stop: 04/17/19 20:14 General: no acute distress, well developed, well nourished HEENT: atraumatic, normocephalic, PERRLA Neck: supple, no thyromegaly Cardiovascular: S1S2, regular Lungs: clear to auscultation bilaterally, clear to percussion Abdomen: soft, bowel sounds, no tender, no distended, no rebound Extremities: no cyanosis, no clubbing, no edema Neurological: awake, alert, oriented Skin: intact - Procedures Procedures: Procedures Procedure Code Date INSERTION OF FEEDING DEVICE INTO STOMACH, PERC APPROACH [id number] 01/02/19 INSERTION OF INFUSION DEVICE INTO R LOW ARM, PERC APPROACH [id number] 01/02/19 INTRODUCTION OF NUTRITIONAL INTO PERIPH VEIN, PERC APPROACH [id number] 01/02/19 RESPIRATORY VENTILATION, LESS THAN 24 CONSECUTIVE HOURS [id number] 04/07/18 Infectious Disease Assmt/Plan - Assessment Assessment: 1. MRSA sepsis. treated 2. discitis/osteomyelitis of lumbar spine. 3. Dementia. 4. Dysphagia requiring G-tube placement, but she has pulled out G-tube 3 times already. 5. Dementia. 6. Protein-calorie malnutrition and failure to thrive. 7. Psychosis. 8. Chronic obstructive pulmonary disease. 9. Leukopenia. improved. - Plan Plan: Off antibiotics, dc plan. Nutritional Asmnt/Malnutr-PDOC - Dietary Evaluation Malnutrition Findings (Please click <Entered> for more info): Nutritional Asmnt/Malnutrition Start: 02/17/19 17: 23 Text: Status: Complete Freq: Protocol: Document 02/17/19 17:23 LCHENG (Rec: 02/17/19 17:28 [email or web address]) Nutritional Asmnt/Malnutrition Patient General Information Nutritional Screening High Risk Consult Diagnosis osteomyelitis, central line placement Pertinent Medical Hx/Surgical Hx HTN, asthma/COPD, PUD/GERd, osteomylitis, anemia, PEG/ Gtube, schizophrenia, bipolar Subjective Information Consult received for ricky 12 and open wound. Pt seen resting in bed at time of visit. TF off at this time. Current Diet Order/ Nutrition Support Glucerna 1.2 at 60ml/hr x 20hr Pertinent Medications vit C, colace, heperin, humalog, culturelle, mag-oxide , vancomycin Pertinent Labs 02/17 K 3.4, Cr 0.5, glucose 94 Nutritional Hx/Data Height 1.65 m Height (Calculated Centimeters) 165.1 Current Weight (lbs) 36.741 kg Weight (Calculated Kilograms) 36.7 Weight (Calculated Grams) 72933.0 [place] Body Weight 125 Body Mass Index (BMI) 13.4 Weight Status Underweight GI Symptoms GI Symptoms None Last BM none Difficult in: None Skin Integrity/Comment: left foot and bilat arms bruises pressure area Complex - Includes bone to sacrum, skin tear to right foot ricky 12 Estimated Nutritional Goals Calories/Kcals/Kg 25-30 Kcals Calculated 9062-3320 Protein g/k.2-1.4 Protein Calculated 68-80 Fluid: ml 1425-1710ml (1ml/kcal) Nutritional Problem 1. Problem Problem increased nutrition needs Etiology impaired skin integrity Signs/Symptoms: open wound to sacrum Intervention/Recommendation Comments 1. Continue with current TF regimen with Glucerna 1.2 at 60ml/hr x 20hr. It provides 1440kcal, 72g protein, 966ml free water, meeting 100% of nutritional needs. Add Sadi BID for wound healing. 2. Monitor TF rate, tolerance, wt, skin integrity and labs 3. F/U as high risk in 2-3 days Expected Outcomes/Goals Expected Outcomes/Goals 1. Pt to meet at least 90% of nutritional needs via nutrition support with tolerance 2. Wt stability, skin to remain intact, labs to approach WNL.
[2019-03-04] MEDS: Budesonide 0.5 Mg/2 mL Ud HHN SCH ×2 (07:29→19:10)
[2019-03-04] MEDS: Albuterol Nebulizer 2.5mg/3mL HHN SCH ×4 (07:29→19:10)
[2019-03-04] MEDS: Multivitamin w/ Minerals Tab GT SCH (08:52)
[2019-03-04] MEDS: Lactobacillus Rhamnosus GG 15 Billion CFU CAP.SPRINK GT SCH (08:52)
[2019-03-04] MEDS: Venelex 60gm Tube TP SCH (09:42)
[2019-03-04] MEDS: INSULIN LISPRO SLIDING SCALE 100 UNITS/ML UNIT SUBQ SCH (09:43)
--- NOTE | 2019-03-04 10:54 | General Progress Note ---
Subjective - Review of Systems Service Date: 03/04/19 Subjective: Patient exam aimed discussed with the nurse chart reviewed patient's clinically unchanged Objective - Results Result Diagrams: 02/28/19 04:25 02/28/19 04:25 Recent Labs: Laboratory Last Values WBC 6.6 Th/cmm (4.8-10.8) 02/28/19 04:25 RBC 3.62 Mil/cmm (3.80-5.10) L 02/28/19 04:25 Hgb 11.7 gm/dL (12-16) L 02/28/19 04:25 Hct 34.5 % (41.0-60) L 02/28/19 04:25 MCV 95.1 fl (81-100) 02/28/19 04:25 MCH 32.2 pg (27.0-31.0) H 02/28/19 04:25 MCHC Differential 33.8 pg (28.0-36.0) 02/28/19 04:25 RDW 13.3 % (11.5-20.0) 02/28/19 04:25 Plt Count 266 Th/cmm (150-400) 02/28/19 04:25 MPV 7.7 fl 02/28/19 04:25 Neutrophils % 72.8 % (40.0-80.0) 02/28/19 04:25 Lymphocytes % 19.4 % (20.0-50.0) L 02/28/19 04:25 Monocytes % 5.8 % (2.0-10.0) 02/28/19 04:25 Eosinophils % 1.4 % (0.0-5.0) 02/28/19 04:25 Basophils % 0.6 % (0.0-2.0) 02/28/19 04:25 PT 11.6 SECONDS (9.5-11.5) H 02/15/19 23:40 INR 1.13 (0.5-1.4) 02/15/19 23:40 PTT (Actin FS) 44.0 SECONDS (26.0-38.0) H 02/15/19 23:40 Sodium 139 mEq/L (136-145) 02/28/19 04:25 Potassium 3.9 mEq/L (3.5-5.1) 02/28/19 04:25 Chloride 105 mEq/L (98-107) 02/28/19 04:25 Carbon Dioxide 24.9 mEq/L (21.0-31.0) 02/28/19 04:25 Anion Gap 13.0 (7.0-16.0) 02/28/19 04:25 BUN 24 mg/dL (7-25) 02/28/19 04:25 Creatinine 0.4 mg/dL (0.6-1.2) L 02/28/19 04:25 Est GFR ( Amer) > 60.0 ml/min (>90) 02/28/19 04:25 Est GFR (Non-Af Amer) > 60.0 ml/min 02/28/19 04:25 BUN/Creatinine Ratio 60.0 02/28/19 04:25 Glucose 69 mg/dL (70-105) L 02/28/19 04:25 POC Glucose 105 MG/DL (70 - 105) 03/04/19 09:16 Whole Bld Lactic Acid 0.56 mmol/L (0.60-1.99) L 02/16/19 00:00 Calcium 9.4 mg/dL (8.6-10.3) 02/28/19 04:25 Total Bilirubin 0.7 mg/dL (0.3-1.0) 02/27/19 09:30 AST 23 U/L (13-39) 02/27/19 09:30 ALT 27 U/L (7-52) 02/27/19 09:30 Alkaline Phosphatase 97 U/L (34-104) 02/27/19 09:30 Troponin I 0.01 ng/mL (0.01-0.05) 02/15/19 23:40 Total Protein 7.3 gm/dL (6.0-8.3) 02/27/19 09:30 Albumin 3.6 gm/dL (3.7-5.3) L 02/27/19 09:30 Globulin 3.7 gm/dL 02/27/19 09:30 Albumin/Globulin Ratio 1.0 (1.0-1.8) 02/27/19 09:30 TSH 4.06 uIU/ml (0.34-5.60) 02/15/19 23:40 Vancomycin Trough 17.7 ug/mL (5-10) H 03/02/19 10:00 Random Vancomycin 4.7 ug/mL (5.0-40.0) L 02/16/19 21:15 - Physical Exam Vitals and I&O: Vital Signs Temp 97.9 F 03/04/19 08:00 Pulse 81 03/04/19 09:42 Resp 18 03/04/19 08:00 BP 164/68 03/04/19 09:42 Pulse Ox 93 03/04/19 08:00 Intake & Output 03/03/19 03/04/19 03/04/19 18:59 06:59 18:59 Intake Total 1440 580 Balance 1440 580 Weight (lbs) 44.906 kg 44.906 kg Intake: Tube Feeding 1440 580 Other: # Voids 4 2 # Bowel Movements 1 1 Weight Source Bedscale Bedscale Active Medications: Current Medications Acetaminophen (Tylenol) 650 mg GT Q6H PRN PRN Reason: mild pain Stop: 04/17/19 18:42 Last Admin: 03/03/19 21:19 Dose: 650 mg Al Hydrox/Mg Hydrox/Simethicone (Maalox) 30 ml GT Q6HR PRN PRN Reason: GI DISTRESS Stop: 04/17/19 18:42 Albuterol Sulfate (Albuterol 2.5mg/3ml Neb Ud) 2.5 mg HHN Q2HR PRN PRN Reason: Shortness of Breath Stop: 04/17/19 18:42 Albuterol Sulfate (Albuterol 2.5mg/3ml Neb Ud) 2.5 mg HHN [id number] [id number] Stop: 04/17/19 18:59 Last Admin: 03/04/19 07:29 Dose: 2.5 mg Ascorbic Acid (Vitamin C) 500 mg GT Q12HR [facility] Stop: 04/17/19 20:59 Last Admin: 03/04/19 08:52 Dose: 500 mg Bisacodyl (Dulcolax 10 Mg Supp) 10 mg RC DAILY PRN PRN Reason: Constipation Stop: 04/17/19 20:14 Budesonide (Pulmicort) 0.5 mg HHN BIDRT [facility] Stop: 04/18/19 06:59 Last Admin: 03/04/19 07:29 Dose: 0.5 mg Carvedilol (Coreg) 6.25 mg GT Q12H [facility] Stop: 04/17/19 21:59 Last Admin: 03/04/19 09:42 Dose: 6.25 mg [place] Oil/[place] Balsam/Trypsin (Venelex) 1 appl TP DAILY [facility] Stop: 04/18/19 08:59 Last Admin: 03/04/19 09:42 Dose: 1 appl Docusate Sodium (Colace) 200 mg GT Q12H PRN PRN Reason: Constipation Stop: 04/17/19 20:14 Enalapril Maleate (Vasotec) 2.5 mg PO BID [facility] Stop: 04/26/19 12:24 Last Admin: 03/04/19 08:52 Dose: 2.5 mg Glucagon (Glucagen) 1 mg IM PRN PRN PRN Reason: Blood Glucose less than 70 Stop: 04/17/19 20:14 Last Admin: 02/28/19 21:12 Dose: 1 mg Insulin Human Lispro (Humalog Insulin Sliding Scale) 0 units SUBQ Q12HR [facility]; Protocol Stop: 04/17/19 20:59 Last Admin: 03/04/19 09:43 Dose: Not Given Lactobacillus Rhamnosus (Culturelle 15b) 1 each GT DAILY [facility] Stop: 04/18/19 08:59 Last Admin: 03/04/19 08:52 Dose: 1 each Lorazepam (Ativan) 1 mg IM Q6HR PRN; Protocol PRN Reason: Agitation Stop: 04/17/19 02:49 Last Admin: 03/04/19 00:19 Dose: 1 mg Magnesium Hydroxide (Milk Of Magnesia) 30 ml GT HS PRN PRN Reason: Constipation Stop: 04/17/19 18:42 Magnesium Oxide (Mag-Oxide) 400 mg GT BID [facility] Stop: 04/18/19 08:59 Last Admin: 03/04/19 08:52 Dose: 400 mg Ondansetron HCl (Zofran) 4 mg IV Q6H PRN PRN Reason: Nausea / Vomiting Stop: 04/28/19 06:20 Sodium Phosphate (Fleet Enema) 135 ml RC Q48HR PRN PRN Reason: Constipation Stop: 04/17/19 20:14 General: No acute distress HEENT: Mucous membr. moist/pink Neck: Supple, JVD, +2 carotid pulse wo bruit (flat) Cardiovascular: Regular rate, Normal S1, Normal S2, Systolic murmurs Lungs: Clear to auscultation, Normal air movement Abdomen: Bowel sounds, Soft, Other (G-tube) - Procedures Procedures: Procedures Procedure Code Date INSERTION OF FEEDING DEVICE INTO STOMACH, PERC APPROACH [id number] 01/02/19 INSERTION OF INFUSION DEVICE INTO R LOW ARM, PERC APPROACH [id number] 01/02/19 INTRODUCTION OF NUTRITIONAL INTO PERIPH VEIN, PERC APPROACH [id number] 01/02/19 RESPIRATORY VENTILATION, LESS THAN 24 CONSECUTIVE HOURS [id number] 04/07/18 Assessment/Plan - Assessment Assessment: Uncontrolled hypertension MRSA sepsis Osteomyelitis of the lumbosacral spine Discitis lumbosacral spine Dementia Dysphagia with PEG placement Protein calorie malnutrition Psychosis COPD - Plan Plan: Continue antihypertensive treatment continue antibiotics Nutritional Asmnt/Malnutr-PDOC - Dietary Evaluation Malnutrition Findings (Please click <Entered> for more info): Nutritional Asmnt/Malnutrition Start: 02/17/19 17: 23 Text: Status: Complete Freq: Protocol: Document 02/17/19 17:23 [email or web address] (Rec: 02/17/19 17:28 [email or web address] [email or web address]) Nutritional Asmnt/Malnutrition Patient General Information Nutritional Screening High Risk Consult Diagnosis osteomyelitis, central line placement Pertinent Medical Hx/Surgical Hx HTN, asthma/COPD, PUD/GERd, osteomylitis, anemia, PEG/ Gtube, schizophrenia, bipolar Subjective Information Consult received for ricky [place] and open wound. Pt seen resting in bed at time of visit. TF off at this time. Current Diet Order/ Nutrition Support Glucerna 1.2 at 60ml/hr x 20hr Pertinent Medications vit C, colace, heperin, humalog, culturelle, mag-oxide , vancomycin Pertinent Labs 02/17 K 3.4, Cr 0.5, glucose 94 Nutritional Hx/Data Height 1.65 m Height (Calculated Centimeters) 165.1 Current Weight (lbs) 36.741 kg Weight (Calculated Kilograms) 36.7 Weight (Calculated Grams) 72055.0 [place] Body Weight 125 Body Mass Index (BMI) 13.4 Weight Status Underweight GI Symptoms GI Symptoms None Last BM none Difficult in: None Skin Integrity/Comment: left foot and bilat arms bruises pressure area Complex - Includes bone to sacrum, skin tear to right foot ricky 12 Estimated Nutritional Goals Calories/Kcals/Kg 25-30 Kcals Calculated 4247-1586 Protein g/k.2-1.4 Protein Calculated 68-80 Fluid: ml 1425-1710ml (1ml/kcal) Nutritional Problem 1. Problem Problem increased nutrition needs Etiology impaired skin integrity Signs/Symptoms: open wound to sacrum Intervention/Recommendation Comments 1. Continue with current TF regimen with Glucerna 1.2 at 60ml/hr x 20hr. It provides 1440kcal, 72g protein, 966ml free water, meeting 100% of nutritional needs. Add Sadi BID for wound healing. 2. Monitor TF rate, tolerance, wt, skin integrity and labs 3. F/U as high risk in 2-3 days Expected Outcomes/Goals Expected Outcomes/Goals 1. Pt to meet at least 90% of nutritional needs via nutrition support with tolerance 2. Wt stability, skin to remain intact, labs to approach WNL.
--- NOTE | 2019-03-04 14:31 | Internal Medicine Prog Note ---
Internal Medicine Subjective - Subjective Service Date: 03/04/19 Patient is:: awake, interactive, confused Patient Complaints of:: other (copd.) Per staff patient has:: no adverse event, no episodes of fall Internal Medicine Objective - Results Result Diagrams: 02/28/19 04:25 02/28/19 04:25 Recent Labs: Laboratory Last Values WBC 6.6 Th/cmm (4.8-10.8) 02/28/19 04:25 RBC 3.62 Mil/cmm (3.80-5.10) L 02/28/19 04:25 Hgb 11.7 gm/dL (12-16) L 02/28/19 04:25 Hct 34.5 % (41.0-60) L 02/28/19 04:25 MCV 95.1 fl (81-100) 02/28/19 04:25 MCH 32.2 pg (27.0-31.0) H 02/28/19 04:25 MCHC Differential 33.8 pg (28.0-36.0) 02/28/19 04:25 RDW 13.3 % (11.5-20.0) 02/28/19 04:25 Plt Count 266 Th/cmm (150-400) 02/28/19 04:25 MPV 7.7 fl 02/28/19 04:25 Neutrophils % 72.8 % (40.0-80.0) 02/28/19 04:25 Lymphocytes % 19.4 % (20.0-50.0) L 02/28/19 04:25 Monocytes % 5.8 % (2.0-10.0) 02/28/19 04:25 Eosinophils % 1.4 % (0.0-5.0) 02/28/19 04:25 Basophils % 0.6 % (0.0-2.0) 02/28/19 04:25 PT 11.6 SECONDS (9.5-11.5) H 02/15/19 23:40 INR 1.13 (0.5-1.4) 02/15/19 23:40 PTT (Actin FS) 44.0 SECONDS (26.0-38.0) H 02/15/19 23:40 Sodium 139 mEq/L (136-145) 02/28/19 04:25 Potassium 3.9 mEq/L (3.5-5.1) 02/28/19 04:25 Chloride 105 mEq/L (98-107) 02/28/19 04:25 Carbon Dioxide 24.9 mEq/L (21.0-31.0) 02/28/19 04:25 Anion Gap 13.0 (7.0-16.0) 02/28/19 04:25 BUN 24 mg/dL (7-25) 02/28/19 04:25 Creatinine 0.4 mg/dL (0.6-1.2) L 02/28/19 04:25 Est GFR ( Amer) > 60.0 ml/min (>90) 02/28/19 04:25 Est GFR (Non-Af Amer) > 60.0 ml/min 02/28/19 04:25 BUN/Creatinine Ratio 60.0 02/28/19 04:25 Glucose 69 mg/dL (70-105) L 02/28/19 04:25 POC Glucose 105 MG/DL (70 - 105) 03/04/19 09:16 Whole Bld Lactic Acid 0.56 mmol/L (0.60-1.99) L 02/16/19 00:00 Calcium 9.4 mg/dL (8.6-10.3) 02/28/19 04:25 Total Bilirubin 0.7 mg/dL (0.3-1.0) 02/27/19 09:30 AST 23 U/L (13-39) 02/27/19 09:30 ALT 27 U/L (7-52) 02/27/19 09:30 Alkaline Phosphatase 97 U/L (34-104) 02/27/19 09:30 Troponin I 0.01 ng/mL (0.01-0.05) 02/15/19 23:40 Total Protein 7.3 gm/dL (6.0-8.3) 02/27/19 09:30 Albumin 3.6 gm/dL (3.7-5.3) L 02/27/19 09:30 Globulin 3.7 gm/dL 02/27/19 09:30 Albumin/Globulin Ratio 1.0 (1.0-1.8) 02/27/19 09:30 TSH 4.06 uIU/ml (0.34-5.60) 04/20/19 23:40 Vancomycin Trough 17.7 ug/mL (5-10) H 03/02/19 10:00 Random Vancomycin 4.7 ug/mL (5.0-40.0) L 02/16/19 21:15 - Physical Exam Vitals and I&O: Vital Signs Temp 98.0 F 03/04/19 12:00 Pulse 73 03/04/19 14:09 Resp 17 03/04/19 14:09 BP 124/91 03/04/19 12:00 Pulse Ox 93 03/04/19 14:09 Intake & Output 03/03/19 03/04/19 03/04/19 18:59 06:59 18:59 Intake Total 1440 580 Balance 1440 580 Weight (lbs) 99 lb 99 lb Intake: Tube Feeding 1440 580 Other: # Voids 4 2 # Bowel Movements 1 1 Weight Source Bedscale Bedscale Active Medications: Current Medications Acetaminophen (Tylenol) 650 mg GT Q6H PRN PRN Reason: mild pain Stop: 04/17/19 18:42 Last Admin: 03/03/19 21:19 Dose: 650 mg Al Hydrox/Mg Hydrox/Simethicone (Maalox) 30 ml GT Q6HR PRN PRN Reason: GI DISTRESS Stop: 04/17/19 18:42 Albuterol Sulfate (Albuterol 2.5mg/3ml Neb Ud) 2.5 mg HHN Q2HR PRN PRN Reason: Shortness of Breath Stop: 04/17/19 18:42 Albuterol Sulfate (Albuterol 2.5mg/3ml Neb Ud) 2.5 mg HHN [id number] Stop: 04/17/19 18:59 Last Admin: 03/04/19 14:09 Dose: 2.5 mg Ascorbic Acid (Vitamin C) 500 mg GT Q12HR MADHURI Stop: 04/17/19 20:59 Last Admin: 03/04/19 08:52 Dose: 500 mg Bisacodyl (Dulcolax 10 Mg Supp) 10 mg RC DAILY PRN PRN Reason: Constipation Stop: 04/17/19 20:14 Budesonide (Pulmicort) 0.5 mg HHN BIDRT MADHURI Stop: 04/18/19 06:59 Last Admin: 03/04/19 07:29 Dose: 0.5 mg Carvedilol (Coreg) 6.25 mg GT Q12H MADHURI Stop: 04/17/19 21:59 Last Admin: 03/04/19 09:42 Dose: 6.25 mg [place] Oil/[place] Balsam/Trypsin (Venelex) 1 appl TP DAILY MADHURI Stop: 04/18/19 08:59 Last Admin: 03/04/19 09:42 Dose: 1 appl Docusate Sodium (Colace) 200 mg GT Q12H PRN PRN Reason: Constipation Stop: 04/17/19 20:14 Enalapril Maleate (Vasotec) 2.5 mg PO BID MADHURI Stop: 04/26/19 12:24 Last Admin: 03/04/19 08:52 Dose: 2.5 mg Glucagon (Glucagen) 1 mg IM PRN PRN PRN Reason: Blood Glucose less than 70 Stop: 04/17/19 20:14 Last Admin: 02/28/19 21:12 Dose: 1 mg Insulin Human Lispro (Humalog Insulin Sliding Scale) 0 units SUBQ Q12HR MADHURI; Protocol Stop: 04/17/19 20:59 Last Admin: 03/04/19 09:43 Dose: Not Given Lactobacillus Rhamnosus (Culturelle 15b) 1 each GT DAILY MADHURI Stop: 04/18/19 08:59 Last Admin: 03/04/19 08:52 Dose: 1 each Lorazepam (Ativan) 1 mg IM Q6HR PRN; Protocol PRN Reason: Agitation Stop: 04/17/19 02:49 Last Admin: 03/04/19 00:19 Dose: 1 mg Magnesium Hydroxide (Milk Of Magnesia) 30 ml GT HS PRN PRN Reason: Constipation Stop: 04/17/19 18:42 Magnesium Oxide (Mag-Oxide) 400 mg GT BID [facility] Stop: 04/18/19 08:59 Last Admin: 03/04/19 08:52 Dose: 400 mg Ondansetron HCl (Zofran) 4 mg IV Q6H PRN PRN Reason: Nausea / Vomiting Stop: 04/28/19 06:20 Sodium Phosphate (Fleet Enema) 135 ml RC Q48HR PRN PRN Reason: Constipation Stop: 04/17/19 20:14 General: weak, demented HEENT: NC/AT, PERRLA Neck: Supple, No JVD Lungs: CTAB Cardiovascular: RRR, Normal S1 Abdomen: soft, non-tender Extremities: clear Neurological: unable to follow command, other - Procedures Procedures: Procedures Procedure Code Date INSERTION OF FEEDING DEVICE INTO STOMACH, PERC APPROACH [id number] 01/02/19 INSERTION OF INFUSION DEVICE INTO R LOW ARM, PERC APPROACH [id number] 01/02/19 INTRODUCTION OF NUTRITIONAL INTO PERIPH VEIN, PERC APPROACH [id number] 01/02/19 RESPIRATORY VENTILATION, LESS THAN 24 CONSECUTIVE HOURS [id number] 04/07/18 Internal Medicine Assmt/Plan - Assessment Assessment: OSTEOMYELITIS OF LUMBAR SPINE MRSA SEPSIS DYSPHAGIA DEMENTIA MODERATE PROTEIN CALORIE MALNUTRITION COPD S/P DECCANULATION - Plan Plan: placement issues continue current plan of care Nutritional Asmnt/Malnutr-PDOC - Dietary Evaluation Malnutrition Findings (Please click <Entered> for more info): Nutritional Asmnt/Malnutrition Start: 02/17/19 17: 23 Text: Status: Complete Freq: Protocol: Document 02/17/19 17:23 LCHENG (Rec: 02/17/19 17:28 [email or web address]) Nutritional Asmnt/Malnutrition Patient General Information Nutritional Screening High Risk Consult Diagnosis osteomyelitis, central line placement Pertinent Medical Hx/Surgical Hx HTN, asthma/COPD, PUD/GERd, osteomylitis, anemia, PEG/ Gtube, schizophrenia, bipolar Subjective Information Consult received for ricky Canela and open wound. Pt seen resting in bed at time of visit. TF off at this time. Current Diet Order/ Nutrition Support Glucerna 1.2 at 60ml/hr x 20hr Pertinent Medications vit C, colace, heperin, humalog, culturelle, mag-oxide , vancomycin Pertinent Labs 02/17 K 3.4, Cr 0.5, glucose 94 Nutritional Hx/Data Height 5 ft 5 in Height (Calculated Centimeters) 165.1 Current Weight (lbs) 81 lb Weight (Calculated Kilograms) 36.7 Weight (Calculated Grams) 33708.0 [place] Body Weight 125 Body Mass Index (BMI) 13.4 Weight Status Underweight GI Symptoms GI Symptoms None Last BM none Difficult in: None Skin Integrity/Comment: left foot and bilat arms bruises pressure area Complex - Includes bone to sacrum, skin tear to right foot ricky 12 Estimated Nutritional Goals Calories/Kcals/Kg 25-30 Kcals Calculated 1627-0674 Protein g/k.2-1.4 Protein Calculated 68-80 Fluid: ml 1425-1710ml (1ml/kcal) Nutritional Problem 1. Problem Problem increased nutrition needs Etiology impaired skin integrity Signs/Symptoms: open wound to sacrum Intervention/Recommendation Comments 1. Continue with current TF regimen with Glucerna 1.2 at 60ml/hr x 20hr. It provides 1440kcal, 72g protein, 966ml free water, meeting 100% of nutritional needs. Add Sadi BID for wound healing. 2. Monitor TF rate, tolerance, wt, skin integrity and labs 3. F/U as high risk in 2-3 days Expected Outcomes/Goals Expected Outcomes/Goals 1. Pt to meet at least 90% of nutritional needs via nutrition support with tolerance 2. Wt stability, skin to remain intact, labs to approach WNL.
[2019-03-05] MEDS: Albuterol Nebulizer 2.5mg/3mL HHN SCH ×4 (07:10→18:18)
[2019-03-05] MEDS: Budesonide 0.5 Mg/2 mL Ud HHN SCH ×2 (07:10→18:18)
[2019-03-05 07:16] LABS: % BASOPHILS 0.5 % (0.0-2.0); % EOSINOPHILS 3.1 % (0.0-5.0); % LYMPHOCYTES 29.2 % (20.0-50.0); % MONOCYTES 9.7 % (2.0-10.0); % NEUTROPHILS 57.5 % (40.0-80.0); EOSINOPHILE ABSOLUTE 0.1 Th/cmm (0.1-0.4); HEMATOCRIT 35.3 % (41.0-60); HEMOGLOBIN 11.9 gm/dL (12-16); LYMPHOCYTE ABSOLUTE 1.1 Th/cmm (1.5-3.0); MEAN CORPUSCULAR HEMOGLOBIN 31.8 pg (27.0-31.0); MEAN CORPUSCULAR HGB CONC 33.8 pg (28.0-36.0); MEAN PLATELET VOLUME 7.5 fl; MONOCYTE ABSOLUTE 0.4 Th/cmm (0.3-1.0); NEUTROPHILE ABSOLUTE 2.2 Th/cmm (1.8-8.0); PLATELET COUNT 258 Th/cmm (150-400); RED BLOOD COUNT 3.76 Mil/cmm (3.80-5.10); RED CELL DISTRIBUTION WIDTH 13.3 % (11.5-20.0)
[2019-03-05 07:28] LABS: ANION GAP 12.1 (7.0-16.0); BUN - UREA NITROGEN 23 mg/dL (7-25); CALCIUM SERUM 9.7 mg/dL (8.6-10.3); CARBON DIOXIDE 29.5 mEq/L (21.0-31.0); CHLORIDE 104 mEq/L (98-107); CREATININE - SERUM 0.5 mg/dL (0.6-1.2); GFR AFRICAN-AMERICAN > 60.0 ml/min (>90); GFR NON AFRICAN-AMERICAN > 60.0 ml/min; GLUCOSE 91 mg/dL (70-105); POTASSIUM SERUM 3.6 mEq/L (3.5-5.1); SODIUM SERUM 142 mEq/L (136-145)
[2019-03-05 07:38] LABS: WHITE BLOOD COUNT 3.8 Th/cmm (4.8-10.8)
[2019-03-05] MEDS: Lactobacillus Rhamnosus GG 15 Billion CFU CAP.SPRINK GT SCH (08:41)
[2019-03-05] MEDS: Multivitamin w/ Minerals Tab GT SCH (08:41)
[2019-03-05] MEDS: Venelex 60gm Tube TP SCH (08:42)
--- NOTE | 2019-03-05 11:52 | Internal Medicine Prog Note ---
Internal Medicine Subjective - Subjective Service Date: 03/05/19 Patient seen and examined:: with staff Patient is:: awake, interactive, confused Patient Complaints of:: other (Hx of copd.) Per staff patient has:: no adverse event, no episodes of fall Internal Medicine Objective - Results Result Diagrams: 03/05/19 05:40 03/05/19 05:40 Recent Labs: Laboratory Last Values WBC 3.8 Th/cmm (4.8-10.8) L 03/05/19 05:40 RBC 3.76 Mil/cmm (3.80-5.10) L 03/05/19 05:40 Hgb 11.9 gm/dL (12-16) L 03/05/19 05:40 Hct 35.3 % (41.0-60) L 03/05/19 05:40 MCV 94.0 fl (81-100) 03/05/19 05:40 MCH 31.8 pg (27.0-31.0) H 03/05/19 05:40 MCHC Differential 33.8 pg (28.0-36.0) 03/05/19 05:40 RDW 13.3 % (11.5-20.0) 03/05/19 05:40 Plt Count 258 Th/cmm (150-400) 03/05/19 05:40 MPV 7.5 fl 03/05/19 05:40 Neutrophils % 57.5 % (40.0-80.0) 03/05/19 05:40 Lymphocytes % 29.2 % (20.0-50.0) 03/05/19 05:40 Monocytes % 9.7 % (2.0-10.0) 03/05/19 05:40 Eosinophils % 3.1 % (0.0-5.0) 03/05/19 05:40 Basophils % 0.5 % (0.0-2.0) 03/05/19 05:40 PT 11.6 SECONDS (9.5-11.5) H 02/15/19 23:40 INR 1.13 (0.5-1.4) 02/15/19 23:40 PTT (Actin FS) 44.0 SECONDS (26.0-38.0) H 02/15/19 23:40 Sodium 142 mEq/L (136-145) 03/05/19 05:40 Potassium 3.6 mEq/L (3.5-5.1) 03/05/19 05:40 Chloride 104 mEq/L (98-107) 03/05/19 05:40 Carbon Dioxide 29.5 mEq/L (21.0-31.0) 03/05/19 05:40 Anion Gap 12.1 (7.0-16.0) 03/05/19 05:40 BUN 23 mg/dL (7-25) 03/05/19 05:40 Creatinine 0.5 mg/dL (0.6-1.2) L 03/05/19 05:40 Est GFR ( Amer) > 60.0 ml/min (>90) 03/05/19 05:40 Est GFR (Non-Af Amer) > 60.0 ml/min 03/05/19 05:40 BUN/Creatinine Ratio 46.0 03/05/19 05:40 Glucose 91 mg/dL (70-105) 03/05/19 05:40 POC Glucose 105 MG/DL (70 - 105) 03/04/19 09:16 Whole Bld Lactic Acid 0.56 mmol/L (0.60-1.99) L 02/16/19 00:00 Calcium 9.7 mg/dL (8.6-10.3) 03/05/19 05:40 Total Bilirubin 0.7 mg/dL (0.3-1.0) 02/27/19 09:30 AST 23 U/L (13-39) 02/27/19 09:30 ALT 27 U/L (7-52) 02/27/19 09:30 Alkaline Phosphatase 97 U/L (34-104) 02/27/19 09:30 Troponin I 0.01 ng/mL (0.01-0.05) 02/15/19 23:40 Total Protein 7.3 gm/dL (6.0-8.3) 02/27/19 09:30 Albumin 3.6 gm/dL (3.7-5.3) L 02/27/19 09:30 Globulin 3.7 gm/dL 02/27/19 09:30 Albumin/Globulin Ratio 1.0 (1.0-1.8) 02/27/19 09:30 TSH 4.06 uIU/ml (0.34-5.60) 02/15/19 23:40 Vancomycin Trough 17.7 ug/mL (5-10) H 03/02/19 10:00 Random Vancomycin 4.7 ug/mL (5.0-40.0) L 02/16/19 21:15 - Physical Exam Vitals and I&O: Vital Signs Temp 97.8 F 03/05/19 11:45 Pulse 64 03/05/19 11:45 Resp 18 03/05/19 11:45 BP 118/69 03/05/19 11:45 Pulse Ox 92 03/05/19 11:45 Intake & Output 03/04/19 03/05/19 03/05/19 18:59 06:59 18:59 Intake Total 660 Balance 660 Weight (lbs) 44.906 kg 72.575 kg Intake: Tube Feeding 660 Other: # Voids 2 3 # Bowel Movements 1 1 Weight Source Bedscale Bedscale Active Medications: Current Medications Acetaminophen (Tylenol) 650 mg GT Q6H PRN PRN Reason: mild pain Stop: 04/17/19 18:42 Last Admin: 03/03/19 21:19 Dose: 650 mg Al Hydrox/Mg Hydrox/Simethicone (Maalox) 30 ml GT Q6HR PRN PRN Reason: GI DISTRESS Stop: 04/17/19 18:42 Albuterol Sulfate (Albuterol 2.5mg/3ml Neb Ud) 2.5 mg HHN Q2HR PRN PRN Reason: Shortness of Breath Stop: 04/17/19 18:42 Albuterol Sulfate (Albuterol 2.5mg/3ml Neb Ud) 2.5 mg HHN [id number] MADHURI Stop: 04/17/19 18:59 Last Admin: 03/05/19 10:49 Dose: 2.5 mg Ascorbic Acid (Vitamin C) 500 mg GT Q12HR MADHURI Stop: 04/17/19 20:59 Last Admin: 03/05/19 08:41 Dose: 500 mg Bisacodyl (Dulcolax 10 Mg Supp) 10 mg RC DAILY PRN PRN Reason: Constipation Stop: 04/17/19 20:14 Budesonide (Pulmicort) 0.5 mg HHN BIDRT MADHURI Stop: 04/18/19 06:59 Last Admin: 03/05/19 07:10 Dose: 0.5 mg Carvedilol (Coreg) 6.25 mg GT Q12H MADHURI Stop: 04/17/19 21:59 Last Admin: 03/05/19 08:59 Dose: 6.25 mg [place] Oil/[place] Balsam/Trypsin (Venelex) 1 appl TP DAILY MADHURI Stop: 04/18/19 08:59 Last Admin: 03/05/19 08:42 Dose: 1 appl Docusate Sodium (Colace) 200 mg GT Q12H PRN PRN Reason: Constipation Stop: 04/17/19 20:14 Enalapril Maleate (Vasotec) 2.5 mg PO BID MADHURI Stop: 04/26/19 12:24 Last Admin: 03/05/19 08:41 Dose: 2.5 mg Glucagon (Glucagen) 1 mg IM PRN PRN PRN Reason: Blood Glucose less than 70 Stop: 04/17/19 20:14 Last Admin: 02/28/19 21:12 Dose: 1 mg Lactobacillus Rhamnosus (Culturelle 15b) 1 each GT DAILY MADHURI Stop: 04/18/19 08:59 Last Admin: 03/05/19 08:41 Dose: 1 each Lorazepam (Ativan) 1 mg IM Q6HR PRN; Protocol PRN Reason: Agitation Stop: 04/17/19 02:49 Last Admin: 03/05/19 11:37 Dose: 1 mg Magnesium Hydroxide (Milk Of Magnesia) 30 ml GT HS PRN PRN Reason: Constipation Stop: 04/17/19 18:42 Magnesium Oxide (Mag-Oxide) 400 mg GT BID MADHURI Stop: 04/18/19 08:59 Last Admin: 03/05/19 08:41 Dose: 400 mg Ondansetron HCl (Zofran) 4 mg IV Q6H PRN PRN Reason: Nausea / Vomiting Stop: 04/28/19 06:20 Sodium Phosphate (Fleet Enema) 135 ml RC Q48HR PRN PRN Reason: Constipation Stop: 04/17/19 20:14 Physical Exam: 58 y/o female patient is agitated and dis-oriented. Patient has Dysphagia, Requiring G-tube placement, has pulled out G-tube x 3 times already, we will continue to monitor her and continue present management. General: weak, demented HEENT: NC/AT, PERRLA Neck: Supple, No JVD Lungs: CTAB Cardiovascular: RRR, Normal S1 Abdomen: soft, non-tender Extremities: clear Neurological: no change, unable to follow command, other - Procedures Procedures: Procedures Procedure Code Date INSERTION OF FEEDING DEVICE INTO STOMACH, PERC APPROACH [id number] 01/02/19 INSERTION OF INFUSION DEVICE INTO R LOW ARM, PERC APPROACH [id number] 01/02/19 INTRODUCTION OF NUTRITIONAL INTO PERIPH VEIN, PERC APPROACH [id number] 01/02/19 RESPIRATORY VENTILATION, LESS THAN 24 CONSECUTIVE HOURS [id number] 04/07/18 Internal Medicine Assmt/Plan - Assessment Assessment: Hypertension. MRSA sepsis, treated Diskitis. Osteomyelitis of lumbar spine Anemia. Protein Malnutrition. S/p Deccanulation. S/p Percutaneous Endoscopic gastrostomy. Combative Dementia Dysphagia, Requiring G-tube placement, has pulled out g-tube x 3 times already. Psychosis Chronic Copd Protein-calorie malnutrition Failure to thrive - Plan Plan: Continuation of care Continue present meds as directed Monitor Vitals, Labs and Pain management Fall precaution Continue present care management Nutritional Asmnt/Malnutr-PDOC - Dietary Evaluation Malnutrition Findings (Please click <Entered> for more info): Nutritional Asmnt/Malnutrition Start: 02/17/19 17: 23 Text: Status: Complete Freq: Protocol: Document 02/17/19 17:23 LCHENG (Rec: 02/17/19 17:28 [email or web address]) Nutritional Asmnt/Malnutrition Patient General Information Nutritional Screening High Risk Consult Diagnosis osteomyelitis, central line placement Pertinent Medical Hx/Surgical Hx HTN, asthma/COPD, PUD/GERd, osteomylitis, anemia, PEG/ Gtube, schizophrenia, bipolar Subjective Information Consult received for ricky 12 and open wound. Pt seen resting in bed at time of visit. TF off at this time. Current Diet Order/ Nutrition Support Glucerna 1.2 at 60ml/hr x 20hr Pertinent Medications vit C, colace, heperin, humalog, culturelle, mag-oxide , vancomycin Pertinent Labs 02/17 K 3.4, Cr 0.5, glucose 94 Nutritional Hx/Data Height 1.65 m Height (Calculated Centimeters) 165.1 Current Weight (lbs) 36.741 kg Weight (Calculated Kilograms) 36.7 Weight (Calculated Grams) 88016.0 [place] Body Weight 125 Body Mass Index (BMI) 13.4 Weight Status Underweight GI Symptoms GI Symptoms None Last BM none Difficult in: None Skin Integrity/Comment: left foot and bilat arms bruises pressure area Complex - Includes bone to sacrum, skin tear to right foot ricky 12 Estimated Nutritional Goals Calories/Kcals/Kg 25-30 Kcals Calculated 5108-6936 Protein g/k.2-1.4 Protein Calculated 68-80 Fluid: ml 1425-1710ml (1ml/kcal) Nutritional Problem 1. Problem Problem increased nutrition needs Etiology impaired skin integrity Signs/Symptoms: open wound to sacrum Intervention/Recommendation Comments 1. Continue with current TF regimen with Glucerna 1.2 at 60ml/hr x 20hr. It provides 1440kcal, 72g protein, 966ml free water, meeting 100% of nutritional needs. Add Said BID for wound healing. 2. Monitor TF rate, tolerance, wt, skin integrity and labs 3. F/U as high risk in 2-3 days Expected Outcomes/Goals Expected Outcomes/Goals 1. Pt to meet at least 90% of nutritional needs via nutrition support with tolerance 2. Wt stability, skin to remain intact, labs to approach WNL.
--- NOTE | 2019-03-05 13:50 | General Progress Note ---
Subjective - Review of Systems Service Date: 03/05/19 Subjective: Patient exam aimed discussed with the nurse chart reviewed patient's clinically unchanged Patient has swelling of the left upper extremity patient's IV site infiltrated in the same arm Objective - Results Result Diagrams: 03/05/19 05:40 03/05/19 05:40 Recent Labs: Laboratory Last Values WBC 3.8 Th/cmm (4.8-10.8) L 03/05/19 05:40 RBC 3.76 Mil/cmm (3.80-5.10) L 03/05/19 05:40 Hgb 11.9 gm/dL (12-16) L 03/05/19 05:40 Hct 35.3 % (41.0-60) L 03/05/19 05:40 MCV 94.0 fl (81-100) 03/05/19 05:40 MCH 31.8 pg (27.0-31.0) H 03/05/19 05:40 MCHC Differential 33.8 pg (28.0-36.0) 03/05/19 05:40 RDW 13.3 % (11.5-20.0) 03/05/19 05:40 Plt Count 258 Th/cmm (150-400) 03/05/19 05:40 MPV 7.5 fl 03/05/19 05:40 Neutrophils % 57.5 % (40.0-80.0) 03/05/19 05:40 Lymphocytes % 29.2 % (20.0-50.0) 03/05/19 05:40 Monocytes % 9.7 % (2.0-10.0) 03/05/19 05:40 Eosinophils % 3.1 % (0.0-5.0) 03/05/19 05:40 Basophils % 0.5 % (0.0-2.0) 03/05/19 05:40 PT 11.6 SECONDS (9.5-11.5) H 02/15/19 23:40 INR 1.13 (0.5-1.4) 02/15/19 23:40 PTT (Actin FS) 44.0 SECONDS (26.0-38.0) H 02/15/19 23:40 Sodium 142 mEq/L (136-145) 03/05/19 05:40 Potassium 3.6 mEq/L (3.5-5.1) 03/05/19 05:40 Chloride 104 mEq/L (98-107) 03/05/19 05:40 Carbon Dioxide 29.5 mEq/L (21.0-31.0) 03/05/19 05:40 Anion Gap 12.1 (7.0-16.0) 03/05/19 05:40 BUN 23 mg/dL (7-25) 03/05/19 05:40 Creatinine 0.5 mg/dL (0.6-1.2) L 03/05/19 05:40 Est GFR ( Amer) > 60.0 ml/min (>90) 03/05/19 05:40 Est GFR (Non-Af Amer) > 60.0 ml/min 03/05/19 05:40 BUN/Creatinine Ratio 46.0 03/05/19 05:40 Glucose 91 mg/dL (70-105) 03/05/19 05:40 POC Glucose 105 MG/DL (70 - 105) 03/04/19 09:16 Whole Bld Lactic Acid 0.56 mmol/L (0.60-1.99) L 02/16/19 00:00 Calcium 9.7 mg/dL (8.6-10.3) 03/05/19 05:40 Total Bilirubin 0.7 mg/dL (0.3-1.0) 02/27/19 09:30 AST 23 U/L (13-39) 02/27/19 09:30 ALT 27 U/L (7-52) 02/27/19 09:30 Alkaline Phosphatase 97 U/L (34-104) 02/27/19 09:30 Troponin I 0.01 ng/mL (0.01-0.05) 02/15/19 23:40 Total Protein 7.3 gm/dL (6.0-8.3) 02/27/19 09:30 Albumin 3.6 gm/dL (3.7-5.3) L 02/27/19 09:30 Globulin 3.7 gm/dL 02/27/19 09:30 Albumin/Globulin Ratio 1.0 (1.0-1.8) 02/27/19 09:30 TSH 4.06 uIU/ml (0.34-5.60) 02/15/19 23:40 Vancomycin Trough 17.7 ug/mL (5-10) H 03/02/19 10:00 Random Vancomycin 4.7 ug/mL (5.0-40.0) L 02/16/19 21:15 - Physical Exam Vitals and I&O: Vital Signs Temp 97.8 F 03/05/19 13:00 Pulse 64 03/05/19 13:00 Resp 18 03/05/19 13:00 BP 118/69 03/05/19 13:00 Pulse Ox 92 03/05/19 11:45 Intake & Output 03/04/19 03/05/19 03/05/19 18:59 06:59 18:59 Intake Total 660 Balance 660 Weight (lbs) 44.906 kg 72.575 kg Intake: Tube Feeding 660 Other: # Voids 2 3 # Bowel Movements 1 1 Weight Source Bedscale Bedscale Active Medications: Current Medications Acetaminophen (Tylenol) 650 mg GT Q6H PRN PRN Reason: mild pain Stop: 04/17/19 18:42 Last Admin: 03/03/19 21:19 Dose: 650 mg Al Hydrox/Mg Hydrox/Simethicone (Maalox) 30 ml GT Q6HR PRN PRN Reason: GI DISTRESS Stop: 04/17/19 18:42 Albuterol Sulfate (Albuterol 2.5mg/3ml Neb Ud) 2.5 mg HHN Q2HR PRN PRN Reason: Shortness of Breath Stop: 04/17/19 18:42 Albuterol Sulfate (Albuterol 2.5mg/3ml Neb Ud) 2.5 mg HHN [id number] [facility] Stop: 04/17/19 18:59 Last Admin: 03/05/19 10:49 Dose: 2.5 mg Ascorbic Acid (Vitamin C) 500 mg GT Q12HR [facility] Stop: 04/17/19 20:59 Last Admin: 03/05/19 08:41 Dose: 500 mg Bisacodyl (Dulcolax 10 Mg Supp) 10 mg RC DAILY PRN PRN Reason: Constipation Stop: 04/17/19 20:14 Budesonide (Pulmicort) 0.5 mg HHN BIDRT [facility] Stop: 04/18/19 06:59 Last Admin: 03/05/19 07:10 Dose: 0.5 mg Carvedilol (Coreg) 6.25 mg GT Q12H MADHURI Stop: 04/17/19 21:59 Last Admin: 03/05/19 08:59 Dose: 6.25 mg [place] Oil/[place] Balsam/Trypsin (Venelex) 1 appl TP DAILY MADHURI Stop: 04/18/19 08:59 Last Admin: 03/05/19 08:42 Dose: 1 appl Docusate Sodium (Colace) 200 mg GT Q12H PRN PRN Reason: Constipation Stop: 04/17/19 20:14 Enalapril Maleate (Vasotec) 2.5 mg PO BID MADHURI Stop: 04/26/19 12:24 Last Admin: 03/05/19 08:41 Dose: 2.5 mg Glucagon (Glucagen) 1 mg IM PRN PRN PRN Reason: Blood Glucose less than 70 Stop: 04/17/19 20:14 Last Admin: 02/28/19 21:12 Dose: 1 mg Lactobacillus Rhamnosus (Culturelle 15b) 1 each GT DAILY MADHURI Stop: 04/18/19 08:59 Last Admin: 03/05/19 08:41 Dose: 1 each Lorazepam (Ativan) 1 mg IM Q6HR PRN; Protocol PRN Reason: Agitation Stop: 04/17/19 02:49 Last Admin: 03/05/19 11:37 Dose: 1 mg Lorazepam (Ativan) 0.5 mg PO Q4HR PRN; Protocol PRN Reason: Agitation Stop: 05/04/19 12:08 Magnesium Hydroxide (Milk Of Magnesia) 30 ml GT HS PRN PRN Reason: Constipation Stop: 04/17/19 18:42 Magnesium Oxide (Mag-Oxide) 400 mg GT BID MADHURI Stop: 04/18/19 08:59 Last Admin: 03/05/19 08:41 Dose: 400 mg Mirtazapine (Remeron) 7.5 mg PO HS MADHURI; Protocol Stop: 05/04/19 20:59 Ondansetron HCl (Zofran) 4 mg IV Q6H PRN PRN Reason: Nausea / Vomiting Stop: 04/28/19 06:20 Sodium Phosphate (Fleet Enema) 135 ml RC Q48HR PRN PRN Reason: Constipation Stop: 04/17/19 20:14 General: No acute distress HEENT: Mucous membr. moist/pink Neck: Supple, JVD, +2 carotid pulse wo bruit (flat) Cardiovascular: Regular rate, Normal S1, Normal S2, Systolic murmurs Lungs: Clear to auscultation, Normal air movement Abdomen: Bowel sounds, Soft, Other (G-tube) - Procedures Procedures: Procedures Procedure Code Date INSERTION OF FEEDING DEVICE INTO STOMACH, PERC APPROACH [id number] 01/02/19 INSERTION OF INFUSION DEVICE INTO R LOW ARM, PERC APPROACH [id number] 01/02/19 INTRODUCTION OF NUTRITIONAL INTO PERIPH VEIN, PERC APPROACH [id number] 01/02/19 RESPIRATORY VENTILATION, LESS THAN 24 CONSECUTIVE HOURS [id number] 04/07/18 Assessment/Plan - Assessment Assessment: Uncontrolled hypertension MRSA sepsis Osteomyelitis of the lumbosacral spine Discitis lumbosacral spine Dementia Dysphagia with PEG placement Protein calorie malnutrition Psychosis COPD - Plan Plan: Continue antihypertensive treatment continue antibiotics Venous duplex study to rule out DVT Nutritional Asmnt/Malnutr-PDOC - Dietary Evaluation Malnutrition Findings (Please click <Entered> for more info): Nutritional Asmnt/Malnutrition Start: 02/17/19 17: 23 Text: Status: Complete Freq: Protocol: Document 02/17/19 17:23 LCHENG (Rec: 02/17/19 17:28 [email or web address] [email or web address]) Nutritional Asmnt/Malnutrition Patient General Information Nutritional Screening High Risk Consult Diagnosis osteomyelitis, central line placement Pertinent Medical Hx/Surgical Hx HTN, asthma/COPD, PUD/GERd, osteomylitis, anemia, PEG/ Gtube, schizophrenia, bipolar Subjective Information Consult received for ricky 12 and open wound. Pt seen resting in bed at time of visit. TF off at this time. Current Diet Order/ Nutrition Support Glucerna 1.2 at 60ml/hr x 20hr Pertinent Medications vit C, colace, heperin, humalog, culturelle, mag-oxide , vancomycin Pertinent Labs 02/17 K 3.4, Cr 0.5, glucose 94 Nutritional Hx/Data Height 1.65 m Height (Calculated Centimeters) 165.1 Current Weight (lbs) 36.741 kg Weight (Calculated Kilograms) 36.7 Weight (Calculated Grams) 58584.0 [place] Body Weight 125 Body Mass Index (BMI) 13.4 Weight Status Underweight GI Symptoms GI Symptoms None Last BM none Difficult in: None Skin Integrity/Comment: left foot and bilat arms bruises pressure area Complex - Includes bone to sacrum, skin tear to right foot ricky 12 Estimated Nutritional Goals Calories/Kcals/Kg 25-30 Kcals Calculated 2998-7882 Protein g/k.2-1.4 Protein Calculated 68-80 Fluid: ml 1425-1710ml (1ml/kcal) Nutritional Problem 1. Problem Problem increased nutrition needs Etiology impaired skin integrity Signs/Symptoms: open wound to sacrum Intervention/Recommendation Comments 1. Continue with current TF regimen with Glucerna 1.2 at 60ml/hr x 20hr. It provides 1440kcal, 72g protein, 966ml free water, meeting 100% of nutritional needs. Add Sadi BID for wound healing. 2. Monitor TF rate, tolerance, wt, skin integrity and labs 3. F/U as high risk in 2-3 days Expected Outcomes/Goals Expected Outcomes/Goals 1. Pt to meet at least 90% of nutritional needs via nutrition support with tolerance 2. Wt stability, skin to remain intact, labs to approach WNL.
--- NOTE | 2019-03-05 14:00 | Diagnostic Imaging Report ---
Right upper extremity Doppler venous ultrasound exam HISTORY: Swelling Sonographic sector images were obtained through the venous system of the right arm. Associated Doppler data was obtained. The exam demonstrates patency of the right internal jugular, axillary, brachial, basilic veins. No thrombus. Several low-level internal echoes seen within the subclavian vein. Exact significance uncertain. Normal compressibility. The right cephalic vein could not be well visualized due to lack of patient cooperation. IMPRESSION: 1. Several low-level intraluminal echoes in the region of the right subclavian vein. The finding is of questionable significance. If symptoms persist, a follow-up exam in several days may be helpful. 2. No other definite evidence of thrombophlebitis.
--- NOTE | 2019-03-05 21:39 | Consultation ---
DATE OF CONSULTATION: 03/05/2019 IDENTIFYING INFORMATION: The patient is a 58-year-old female. HISTORY OF PRESENT ILLNESS: The patient was admitted because of diskitis, osteomyelitis where she has been getting vancomycin IV, pulled her PICC line and she was sent over here to do the PICC line and the patient complained of weakness, tremors, very agitated and anxious. The patient is a poor historian, unable to talk. She was alert. She has a G-tube. Unable to participate in a meaningful conversation or make a safe plan for self-care. Basically, she is malnourished. The patient has a G-tube. They have been giving her medications intramuscular as she is hard to get her veins. PAST PSYCHIATRIC HISTORY: Unobtainable. The patient is not on any psychotropic medication besides Ativan. FAMILY HISTORY: Unobtainable. The patient came from a nursing facility. MEDICAL HISTORY: As per medical doctor. ALLERGIES: The patient has no known drug allergies. MENTAL STATUS EXAMINATION: The patient was appropriately dressed, not well groomed. She was alert, but unable to talk, unable to converse, unable to give any information, has been agitated, pulling her IVs, uncooperative as she needs to have an ultrasound, unable to test her memory and concentration. She would not answer if there is any suicidal ideation or homicidal ideation or paranoia. Insight and judgment is impaired. IMPRESSION: Mood disorder, not otherwise specified. MEDICAL DIAGNOSIS: As per medical doctor. PLAN: To continue with Ativan. I would add Remeron and that may help decrease her anxiety and help with her malnourish and appetite and I will follow up the patient with you. Thank you very much for allowing me to participate in the care of this most interesting lady. JOB# [id number]
[2019-03-06 07:12] LABS: % BASOPHILS 0.6 % (0.0-2.0); % EOSINOPHILS 2.4 % (0.0-5.0); % LYMPHOCYTES 16.1 % (20.0-50.0); % MONOCYTES 8.6 % (2.0-10.0); % NEUTROPHILS 72.3 % (40.0-80.0); EOSINOPHILE ABSOLUTE 0.1 Th/cmm (0.1-0.4); HEMATOCRIT 37.2 % (41.0-60); HEMOGLOBIN 12.5 gm/dL (12-16); LYMPHOCYTE ABSOLUTE 0.9 Th/cmm (1.5-3.0); MEAN CELL VOLUME 95.7 fl (81-100); MEAN CORPUSCULAR HEMOGLOBIN 32.1 pg (27.0-31.0); MEAN CORPUSCULAR HGB CONC 33.5 pg (28.0-36.0); MEAN PLATELET VOLUME 7.5 fl; MONOCYTE ABSOLUTE 0.5 Th/cmm (0.3-1.0); NEUTROPHILE ABSOLUTE 4.4 Th/cmm (1.8-8.0); PLATELET COUNT 266 Th/cmm (150-400); RED BLOOD COUNT 3.88 Mil/cmm (3.80-5.10); RED CELL DISTRIBUTION WIDTH 13.1 % (11.5-20.0); WHITE BLOOD COUNT 5.9 Th/cmm (4.8-10.8)
[2019-03-06 07:15] LABS: ALBUMIN 3.5 gm/dL (3.7-5.3); ALKALINE PHOSPHATASE 110 U/L (34-104); ANION GAP 12.1 (7.0-16.0); BILIRUBIN,TOTAL 0.5 mg/dL (0.3-1.0); BUN - UREA NITROGEN 29 mg/dL (7-25); CALCIUM SERUM 9.6 mg/dL (8.6-10.3); CARBON DIOXIDE 31.4 mEq/L (21.0-31.0); CHLORIDE 103 mEq/L (98-107); CREATININE - SERUM 0.5 mg/dL (0.6-1.2); GFR AFRICAN-AMERICAN > 60.0 ml/min (>90); GFR NON AFRICAN-AMERICAN > 60.0 ml/min; GLUCOSE 101 mg/dL (70-105); POTASSIUM SERUM 3.5 mEq/L (3.5-5.1); SGOT 28 U/L (13-39); SGPT/ALT 40 U/L (7-52); SODIUM SERUM 143 mEq/L (136-145); TOTAL PROTEIN,SERUM 6.9 gm/dL (6.0-8.3)
[2019-03-06] MEDS: Albuterol Nebulizer 2.5mg/3mL HHN SCH ×4 (08:06→18:52)
[2019-03-06] MEDS: Budesonide 0.5 Mg/2 mL Ud HHN SCH ×2 (08:06→18:52)
[2019-03-06] MEDS: Multivitamin w/ Minerals Tab GT SCH (08:53)
[2019-03-06] MEDS: Lactobacillus Rhamnosus GG 15 Billion CFU CAP.SPRINK GT SCH (08:53)
[2019-03-06] MEDS: Venelex 60gm Tube TP SCH (08:55)
--- NOTE | 2019-03-06 13:06 | General Progress Note ---
Subjective - Review of Systems Service Date: 03/06/19 Subjective: Patient exam aimed discussed with the nurse chart reviewed patient's clinically unchanged Patient has swelling of the left upper extremity patient's IV site infiltrated in the same arm Objective - Results Result Diagrams: 03/06/19 06:10 03/06/19 06:10 Recent Labs: Laboratory Last Values WBC 5.9 Th/cmm (4.8-10.8) 03/06/19 06:10 RBC 3.88 Mil/cmm (3.80-5.10) 03/06/19 06:10 Hgb 12.5 gm/dL (12-16) 03/06/19 06:10 Hct 37.2 % (41.0-60) L 03/06/19 06:10 MCV 95.7 fl (81-100) 03/06/19 06:10 MCH 32.1 pg (27.0-31.0) H 03/06/19 06:10 MCHC Differential 33.5 pg (28.0-36.0) 03/06/19 06:10 RDW 13.1 % (11.5-20.0) 03/06/19 06:10 Plt Count 266 Th/cmm (150-400) 03/06/19 06:10 MPV 7.5 fl 03/06/19 06:10 Neutrophils % 72.3 % (40.0-80.0) 03/06/19 06:10 Lymphocytes % 16.1 % (20.0-50.0) L 03/06/19 06:10 Monocytes % 8.6 % (2.0-10.0) 03/06/19 06:10 Eosinophils % 2.4 % (0.0-5.0) 03/06/19 06:10 Basophils % 0.6 % (0.0-2.0) 03/06/19 06:10 PT 11.6 SECONDS (9.5-11.5) H 02/15/19 23:40 INR 1.13 (0.5-1.4) 02/15/19 23:40 PTT (Actin FS) 44.0 SECONDS (26.0-38.0) H 02/15/19 23:40 Sodium 143 mEq/L (136-145) 03/06/19 06:10 Potassium 3.5 mEq/L (3.5-5.1) 03/06/19 06:10 Chloride 103 mEq/L (98-107) 03/06/19 06:10 Carbon Dioxide 31.4 mEq/L (21.0-31.0) H 03/06/19 06:10 Anion Gap 12.1 (7.0-16.0) 03/06/19 06:10 BUN 29 mg/dL (7-25) H 03/06/19 06:10 Creatinine 0.5 mg/dL (0.6-1.2) L 03/06/19 06:10 Est GFR ( Amer) > 60.0 ml/min (>90) 03/06/19 06:10 Est GFR (Non-Af Amer) > 60.0 ml/min 03/06/19 06:10 BUN/Creatinine Ratio 58.0 03/06/19 06:10 Glucose 101 mg/dL (70-105) 03/06/19 06:10 POC Glucose 105 MG/DL (70 - 105) 03/04/19 09:16 Whole Bld Lactic Acid 0.56 mmol/L (0.60-1.99) L 02/16/19 00:00 Calcium 9.6 mg/dL (8.6-10.3) 03/06/19 06:10 Total Bilirubin 0.5 mg/dL (0.3-1.0) 03/06/19 06:10 AST 28 U/L (13-39) 03/06/19 06:10 ALT 40 U/L (7-52) 03/06/19 06:10 Alkaline Phosphatase 110 U/L (34-104) H 03/06/19 06:10 Troponin I 0.01 ng/mL (0.01-0.05) 02/15/19 23:40 Total Protein 6.9 gm/dL (6.0-8.3) 03/06/19 06:10 Albumin 3.5 gm/dL (3.7-5.3) L 03/06/19 06:10 Globulin 3.4 gm/dL 03/06/19 06:10 Albumin/Globulin Ratio 1.0 (1.0-1.8) 03/06/19 06:10 TSH 4.06 uIU/ml (0.34-5.60) 02/15/19 23:40 Vancomycin Trough 17.7 ug/mL (5-10) H 03/02/19 10:00 Random Vancomycin 4.7 ug/mL (5.0-40.0) L 02/16/19 21:15 - Physical Exam Vitals and I&O: Vital Signs Temp 96.7 F 03/06/19 09:00 Pulse 79 03/06/19 11:07 Resp 20 03/06/19 11:07 BP 136/77 03/06/19 09:01 Pulse Ox 95 03/06/19 11:07 Intake & Output 03/05/19 03/06/19 03/06/19 18:59 06:59 18:59 Intake Total 1120 400 Balance 1120 400 Weight (lbs) 72.575 kg 43.001 kg Intake: Tube Feeding 720 400 Other 400 Other: # Voids 3 # Bowel Movements 0 0 Weight Source Bedscale Bedscale Active Medications: Current Medications Acetaminophen (Tylenol) 650 mg GT Q6H PRN PRN Reason: mild pain Stop: 04/17/19 18:42 Last Admin: 03/03/19 21:19 Dose: 650 mg Al Hydrox/Mg Hydrox/Simethicone (Maalox) 30 ml GT Q6HR PRN PRN Reason: GI DISTRESS Stop: 04/17/19 18:42 Albuterol Sulfate (Albuterol 2.5mg/3ml Neb Ud) 2.5 mg HHN Q2HR PRN PRN Reason: Shortness of Breath Stop: 04/17/19 18:42 Albuterol Sulfate (Albuterol 2.5mg/3ml Neb Ud) 2.5 mg HHN [id number] MADHURI Stop: 04/17/19 18:59 Last Admin: 03/06/19 11:06 Dose: 2.5 mg Ascorbic Acid (Vitamin C) 500 mg GT Q12HR MADHURI Stop: 04/17/19 20:59 Last Admin: 03/06/19 08:53 Dose: 500 mg Bisacodyl (Dulcolax 10 Mg Supp) 10 mg RC DAILY PRN PRN Reason: Constipation Stop: 04/17/19 20:14 Budesonide (Pulmicort) 0.5 mg HHN BIDRT MADHURI Stop: 04/18/19 06:59 Last Admin: 03/06/19 08:06 Dose: 0.5 mg Carvedilol (Coreg) 6.25 mg GT Q12H MADHURI Stop: 04/17/19 21:59 Last Admin: 03/06/19 09:01 Dose: 6.25 mg [place] Oil/[place] Balsam/Trypsin (Venelex) 1 appl TP DAILY MADHURI Stop: 04/18/19 08:59 Last Admin: 03/06/19 08:55 Dose: 1 appl Docusate Sodium (Colace) 200 mg GT Q12H PRN PRN Reason: Constipation Stop: 04/17/19 20:14 Enalapril Maleate (Vasotec) 2.5 mg PO BID MADHURI Stop: 04/26/19 12:24 Last Admin: 03/06/19 08:53 Dose: 2.5 mg Glucagon (Glucagen) 1 mg IM PRN PRN PRN Reason: Blood Glucose less than 70 Stop: 04/17/19 20:14 Last Admin: 02/28/19 21:12 Dose: 1 mg Lactobacillus Rhamnosus (Culturelle 15b) 1 each GT DAILY MADHURI Stop: 04/18/19 08:59 Last Admin: 03/06/19 08:53 Dose: 1 each Lorazepam (Ativan) 1 mg IM Q6HR PRN; Protocol PRN Reason: Agitation Stop: 04/17/19 02:49 Last Admin: 03/05/19 11:37 Dose: 1 mg Lorazepam (Ativan) 0.5 mg PO Q4HR PRN; Protocol PRN Reason: Agitation Stop: 05/04/19 12:08 Magnesium Hydroxide (Milk Of Magnesia) 30 ml GT HS PRN PRN Reason: Constipation Stop: 04/17/19 18:42 Magnesium Oxide (Mag-Oxide) 400 mg GT BID MADHURI Stop: 04/18/19 08:59 Last Admin: 03/06/19 08:53 Dose: 400 mg Mirtazapine (Remeron) 7.5 mg PO HS MADHURI; Protocol Stop: 05/04/19 20:59 Last Admin: 03/05/19 21:35 Dose: 7.5 mg Ondansetron HCl (Zofran) 4 mg IV Q6H PRN PRN Reason: Nausea / Vomiting Stop: 04/28/19 06:20 Sodium Phosphate (Fleet Enema) 135 ml RC Q48HR PRN PRN Reason: Constipation Stop: 04/17/19 20:14 General: No acute distress HEENT: Mucous membr. moist/pink Neck: Supple, JVD, +2 carotid pulse wo bruit (flat) Cardiovascular: Regular rate, Normal S1, Normal S2, Systolic murmurs Lungs: Clear to auscultation, Normal air movement Abdomen: Bowel sounds, Soft, Other (G-tube) - Procedures Procedures: Procedures Procedure Code Date INSERTION OF FEEDING DEVICE INTO STOMACH, PERC APPROACH [id number] 01/02/19 INSERTION OF INFUSION DEVICE INTO R LOW ARM, PERC APPROACH [id number] 01/02/19 INTRODUCTION OF NUTRITIONAL INTO PERIPH VEIN, PERC APPROACH [id number] 01/02/19 RESPIRATORY VENTILATION, LESS THAN 24 CONSECUTIVE HOURS [id number] 04/07/18 Assessment/Plan - Assessment Assessment: Uncontrolled hypertension MRSA sepsis Osteomyelitis of the lumbosacral spine Discitis lumbosacral spine Dementia Dysphagia with PEG placement Protein calorie malnutrition Psychosis COPD - Plan Plan: Continue antihypertensive treatment continue antibiotics Venous duplex study Nutritional Asmnt/Malnutr-PDOC - Dietary Evaluation Malnutrition Findings (Please click <Entered> for more info): Nutritional Asmnt/Malnutrition Start: 02/17/19 17: 23 Text: Status: Complete Freq: Protocol: Document 02/17/19 17:23 LCHENG (Rec: 02/17/19 17:28 LCHENG [email or web address]) Nutritional Asmnt/Malnutrition Patient General Information Nutritional Screening High Risk Consult Diagnosis osteomyelitis, central line placement Pertinent Medical Hx/Surgical Hx HTN, asthma/COPD, PUD/GERd, osteomylitis, anemia, PEG/ Gtube, schizophrenia, bipolar Subjective Information Consult received for ricky 12 and open wound. Pt seen resting in bed at time of visit. TF off at this time. Current Diet Order/ Nutrition Support Glucerna 1.2 at 60ml/hr x 20hr Pertinent Medications vit C, colace, heperin, humalog, culturelle, mag-oxide , vancomycin Pertinent Labs 02/17 K 3.4, Cr 0.5, glucose 94 Nutritional Hx/Data Height 1.65 m Height (Calculated Centimeters) 165.1 Current Weight (lbs) 36.741 kg Weight (Calculated Kilograms) 36.7 Weight (Calculated Grams) 18194.0 [place] Body Weight 125 Body Mass Index (BMI) 13.4 Weight Status Underweight GI Symptoms GI Symptoms None Last BM none Difficult in: None Skin Integrity/Comment: left foot and bilat arms bruises pressure area Complex - Includes bone to sacrum, skin tear to right foot ricky 12 Estimated Nutritional Goals Calories/Kcals/Kg 25-30 Kcals Calculated 3210-7074 Protein g/k.2-1.4 Protein Calculated 68-80 Fluid: ml 1425-1710ml (1ml/kcal) Nutritional Problem 1. Problem Problem increased nutrition needs Etiology impaired skin integrity Signs/Symptoms: open wound to sacrum Intervention/Recommendation Comments 1. Continue with current TF regimen with Glucerna 1.2 at 60ml/hr x 20hr. It provides 1440kcal, 72g protein, 966ml free water, meeting 100% of nutritional needs. Add Sadi BID for wound healing. 2. Monitor TF rate, tolerance, wt, skin integrity and labs 3. F/U as high risk in 2-3 days Expected Outcomes/Goals Expected Outcomes/Goals 1. Pt to meet at least 90% of nutritional needs via nutrition support with tolerance 2. Wt stability, skin to remain intact, labs to approach WNL.
--- NOTE | 2019-03-06 22:56 | Progress Notes ---
DATE: 03/06/2019 Case was discussed with staff of the patient, reviewed records. The patient today is calmer. She is sleeping better, eating better. She has a G-tube. She tolerated the medication, which I ordered for her, which is Remeron and Ativan with no side effects. Thank you very much for allowing me to participate in the care of this most interesting lady. [facility]# [phone] [id number]
[2019-03-07] MEDS: Budesonide 0.5 Mg/2 mL Ud HHN SCH ×2 (07:12→19:03)
[2019-03-07] MEDS: Albuterol Nebulizer 2.5mg/3mL HHN SCH ×4 (07:12→19:03)
[2019-03-07] MEDS: Multivitamin w/ Minerals Tab GT SCH (09:40)
[2019-03-07] MEDS: Lactobacillus Rhamnosus GG 15 Billion CFU CAP.SPRINK GT SCH (09:40)
[2019-03-07] MEDS: Venelex 60gm Tube TP SCH (09:44)
--- NOTE | 2019-03-07 13:33 | Internal Medicine Prog Note ---
Internal Medicine Subjective - Subjective Service Date: 03/07/19 Patient seen and examined:: with staff, chart reviewed Patient is:: awake, interactive, confused Patient Complaints of:: other (Hx of copd.) Per staff patient has:: no adverse event, no episodes of fall Internal Medicine Objective - Results Result Diagrams: 03/06/19 06:10 03/06/19 06:10 Recent Labs: Laboratory Last Values WBC 5.9 Th/cmm (4.8-10.8) 03/06/19 06:10 RBC 3.88 Mil/cmm (3.80-5.10) 03/06/19 06:10 Hgb 12.5 gm/dL (12-16) 03/06/19 06:10 Hct 37.2 % (41.0-60) L 03/06/19 06:10 MCV 95.7 fl (81-100) 03/06/19 06:10 MCH 32.1 pg (27.0-31.0) H 03/06/19 06:10 MCHC Differential 33.5 pg (28.0-36.0) 03/06/19 06:10 RDW 13.1 % (11.5-20.0) 03/06/19 06:10 Plt Count 266 Th/cmm (150-400) 03/06/19 06:10 MPV 7.5 fl 03/06/19 06:10 Neutrophils % 72.3 % (40.0-80.0) 03/06/19 06:10 Lymphocytes % 16.1 % (20.0-50.0) L 03/06/19 06:10 Monocytes % 8.6 % (2.0-10.0) 03/06/19 06:10 Eosinophils % 2.4 % (0.0-5.0) 03/06/19 06:10 Basophils % 0.6 % (0.0-2.0) 03/06/19 06:10 PT 11.6 SECONDS (9.5-11.5) H 02/15/19 23:40 INR 1.13 (0.5-1.4) 02/15/19 23:40 PTT (Actin FS) 44.0 SECONDS (26.0-38.0) H 02/15/19 23:40 Sodium 143 mEq/L (136-145) 03/06/19 06:10 Potassium 3.5 mEq/L (3.5-5.1) 03/06/19 06:10 Chloride 103 mEq/L (98-107) 03/06/19 06:10 Carbon Dioxide 31.4 mEq/L (21.0-31.0) H 03/06/19 06:10 Anion Gap 12.1 (7.0-16.0) 03/06/19 06:10 BUN 29 mg/dL (7-25) H 03/06/19 06:10 Creatinine 0.5 mg/dL (0.6-1.2) L 03/06/19 06:10 Est GFR ( Amer) > 60.0 ml/min (>90) 03/06/19 06:10 Est GFR (Non-Af Amer) > 60.0 ml/min 03/06/19 06:10 BUN/Creatinine Ratio 58.0 03/06/19 06:10 Glucose 101 mg/dL (70-105) 03/06/19 06:10 POC Glucose 105 MG/DL (70 - 105) 03/04/19 09:16 Whole Bld Lactic Acid 0.56 mmol/L (0.60-1.99) L 02/16/19 00:00 Calcium 9.6 mg/dL (8.6-10.3) 03/06/19 06:10 Total Bilirubin 0.5 mg/dL (0.3-1.0) 03/06/19 06:10 AST 28 U/L (13-39) 03/06/19 06:10 ALT 40 U/L (7-52) 03/06/19 06:10 Alkaline Phosphatase 110 U/L (34-104) H 03/06/19 06:10 Troponin I 0.01 ng/mL (0.01-0.05) 02/15/19 23:40 Total Protein 6.9 gm/dL (6.0-8.3) 03/06/19 06:10 Albumin 3.5 gm/dL (3.7-5.3) L 03/06/19 06:10 Globulin 3.4 gm/dL 03/06/19 06:10 Albumin/Globulin Ratio 1.0 (1.0-1.8) 03/06/19 06:10 TSH 4.06 uIU/ml (0.34-5.60) 02/15/19 23:40 Vancomycin Trough 17.7 ug/mL (5-10) H 03/02/19 10:00 Random Vancomycin 4.7 ug/mL (5.0-40.0) L 02/16/19 21:15 - Physical Exam Vitals and I&O: Vital Signs Temp 98.1 F 03/07/19 12:00 Pulse 65 03/07/19 12:02 Resp 18 03/07/19 12:02 BP 128/76 03/07/19 12:00 Pulse Ox 97 03/07/19 12:02 Intake & Output 03/06/19 03/07/19 03/07/19 18:59 06:59 18:59 Intake Total 1120 320 Balance 1120 320 Weight (lbs) 43.091 kg 43.091 kg Intake: Tube Feeding 720 320 Other 400 Other: # Voids 3 3 # Bowel Movements 0 1 Weight Source Bedscale Bedscale Active Medications: Current Medications Acetaminophen (Tylenol) 650 mg GT Q6H PRN PRN Reason: mild pain Stop: 04/17/19 18:42 Last Admin: 03/03/19 21:19 Dose: 650 mg Al Hydrox/Mg Hydrox/Simethicone (Maalox) 30 ml GT Q6HR PRN PRN Reason: GI DISTRESS Stop: 04/17/19 18:42 Albuterol Sulfate (Albuterol 2.5mg/3ml Neb Ud) 2.5 mg HHN Q2HR PRN PRN Reason: Shortness of Breath Stop: 04/17/19 18:42 Albuterol Sulfate (Albuterol 2.5mg/3ml Neb Ud) 2.5 mg HHN [id number] [facility] Stop: 04/17/19 18:59 Last Admin: 03/07/19 12:00 Dose: 2.5 mg Ascorbic Acid (Vitamin C) 500 mg GT Q12HR MADHURI Stop: 04/17/19 20:59 Last Admin: 03/07/19 09:40 Dose: 500 mg Bisacodyl (Dulcolax 10 Mg Supp) 10 mg RC DAILY PRN PRN Reason: Constipation Stop: 04/17/19 20:14 Budesonide (Pulmicort) 0.5 mg HHN BIDRT [facility] Stop: 04/18/19 06:59 Last Admin: 03/07/19 07:12 Dose: 0.5 mg Carvedilol (Coreg) 6.25 mg GT Q12H MADHURI Stop: 04/17/19 21:59 Last Admin: 03/07/19 09:39 Dose: 6.25 mg [place] Oil/[place] Balsam/Trypsin (Venelex) 1 appl TP DAILY MADHURI Stop: 04/18/19 08:59 Last Admin: 03/07/19 09:44 Dose: 1 appl Docusate Sodium (Colace) 200 mg GT Q12H PRN PRN Reason: Constipation Stop: 04/17/19 20:14 Enalapril Maleate (Vasotec) 2.5 mg PO BID MADHURI Stop: 04/26/19 12:24 Last Admin: 03/07/19 09:40 Dose: 2.5 mg Glucagon (Glucagen) 1 mg IM PRN PRN PRN Reason: Blood Glucose less than 70 Stop: 04/17/19 20:14 Last Admin: 02/28/19 21:12 Dose: 1 mg Lactobacillus Rhamnosus (Culturelle 15b) 1 each GT DAILY MADHURI Stop: 04/18/19 08:59 Last Admin: 03/07/19 09:40 Dose: 1 each Lorazepam (Ativan) 1 mg IM Q6HR PRN; Protocol PRN Reason: Agitation Stop: 04/17/19 02:49 Last Admin: 03/05/19 11:37 Dose: 1 mg Lorazepam (Ativan) 0.5 mg PO Q4HR PRN; Protocol PRN Reason: Agitation Stop: 05/04/19 12:08 Magnesium Hydroxide (Milk Of Magnesia) 30 ml GT HS PRN PRN Reason: Constipation Stop: 04/17/19 18:42 Magnesium Oxide (Mag-Oxide) 400 mg GT BID MADHURI Stop: 04/18/19 08:59 Last Admin: 03/07/19 09:40 Dose: 400 mg Mirtazapine (Remeron) 7.5 mg PO HS MADHURI; Protocol Stop: 05/04/19 20:59 Last Admin: 03/06/19 21:17 Dose: 7.5 mg Ondansetron HCl (Zofran) 4 mg IV Q6H PRN PRN Reason: Nausea / Vomiting Stop: 04/28/19 06:20 Sodium Phosphate (Fleet Enema) 135 ml RC Q48HR PRN PRN Reason: Constipation Stop: 04/17/19 20:14 Physical Exam: 58 y/o female patient is less agitated, sleeping better and doing better. General: weak, demented HEENT: NC/AT, PERRLA Neck: Supple, No JVD Lungs: CTAB Cardiovascular: RRR, Normal S1 Abdomen: soft, non-tender Extremities: clear Neurological: no change, unable to follow command, other - Procedures Procedures: Procedures Procedure Code Date INSERTION OF FEEDING DEVICE INTO STOMACH, PERC APPROACH [id number] 01/02/19 INSERTION OF INFUSION DEVICE INTO R LOW ARM, PERC APPROACH [id number] 01/02/19 INTRODUCTION OF NUTRITIONAL INTO PERIPH VEIN, PERC APPROACH [id number] 01/02/19 RESPIRATORY VENTILATION, LESS THAN 24 CONSECUTIVE HOURS [id number] 04/07/18 Internal Medicine Assmt/Plan - Assessment Assessment: Hypertension. MRSA sepsis, treated Diskitis. Osteomyelitis of lumbar spine Anemia. Protein Malnutrition. S/p Deccanulation. S/p Percutaneous Endoscopic gastrostomy. Less agitated Dementia Psychosis Chronic Copd Protein-calorie malnutrition Failure to thrive - Plan Plan: Continuation of care Continue present meds as directed Monitor Vitals, Labs and Pain management Fall precaution Continue present care management Nutritional Asmnt/Malnutr-PDOC - Dietary Evaluation Malnutrition Findings (Please click <Entered> for more info): Nutritional Asmnt/Malnutrition Start: 02/17/19 17: 23 Text: Status: Complete Freq: Protocol: Document 02/17/19 17:23 LCHENG (Rec: 02/17/19 17:28 [email or web address] [email or web address]) Nutritional Asmnt/Malnutrition Patient General Information Nutritional Screening High Risk Consult Diagnosis osteomyelitis, central line placement Pertinent Medical Hx/Surgical Hx HTN, asthma/COPD, PUD/GERd, osteomylitis, anemia, PEG/ Gtube, schizophrenia, bipolar Subjective Information Consult received for ricky 12 and open wound. Pt seen resting in bed at time of visit. TF off at this time. Current Diet Order/ Nutrition Support Glucerna 1.2 at 60ml/hr x 20hr Pertinent Medications vit C, colace, heperin, humalog, culturelle, mag-oxide , vancomycin Pertinent Labs 02/17 K 3.4, Cr 0.5, glucose 94 Nutritional Hx/Data Height 1.65 m Height (Calculated Centimeters) 165.1 Current Weight (lbs) 36.741 kg Weight (Calculated Kilograms) 36.7 Weight (Calculated Grams) 00710.0 [place] Body Weight 125 Body Mass Index (BMI) 13.4 Weight Status Underweight GI Symptoms GI Symptoms None Last BM none Difficult in: None Skin Integrity/Comment: left foot and bilat arms bruises pressure area Complex - Includes bone to sacrum, skin tear to right foot ricky 12 Estimated Nutritional Goals Calories/Kcals/Kg 25-30 Kcals Calculated 4878-6212 Protein g/k.2-1.4 Protein Calculated 68-80 Fluid: ml 1425-1710ml (1ml/kcal) Nutritional Problem 1. Problem Problem increased nutrition needs Etiology impaired skin integrity Signs/Symptoms: open wound to sacrum Intervention/Recommendation Comments 1. Continue with current TF regimen with Glucerna 1.2 at 60ml/hr x 20hr. It provides 1440kcal, 72g protein, 966ml free water, meeting 100% of nutritional needs. Add Sadi BID for wound healing. 2. Monitor TF rate, tolerance, wt, skin integrity and labs 3. F/U as high risk in 2-3 days Expected Outcomes/Goals Expected Outcomes/Goals 1. Pt to meet at least 90% of nutritional needs via nutrition support with tolerance 2. Wt stability, skin to remain intact, labs to approach WNL.
--- NOTE | 2019-03-07 14:51 | General Progress Note ---
Subjective - Review of Systems Service Date: 03/07/19 Subjective: Patient exam aimed discussed with the nurse chart reviewed patient's clinically unchanged Patient has swelling of the left upper extremity patient's IV site infiltrated in the same arm Objective - Results Result Diagrams: 03/06/19 06:10 03/06/19 06:10 Recent Labs: Laboratory Last Values WBC 5.9 Th/cmm (4.8-10.8) 03/06/19 06:10 RBC 3.88 Mil/cmm (3.80-5.10) 03/06/19 06:10 Hgb 12.5 gm/dL (12-16) 03/06/19 06:10 Hct 37.2 % (41.0-60) L 03/06/19 06:10 MCV 95.7 fl (81-100) 03/06/19 06:10 MCH 32.1 pg (27.0-31.0) H 03/06/19 06:10 MCHC Differential 33.5 pg (28.0-36.0) 03/06/19 06:10 RDW 13.1 % (11.5-20.0) 03/06/19 06:10 Plt Count 266 Th/cmm (150-400) 03/06/19 06:10 MPV 7.5 fl 03/06/19 06:10 Neutrophils % 72.3 % (40.0-80.0) 03/06/19 06:10 Lymphocytes % 16.1 % (20.0-50.0) L 03/06/19 06:10 Monocytes % 8.6 % (2.0-10.0) 03/06/19 06:10 Eosinophils % 2.4 % (0.0-5.0) 03/06/19 06:10 Basophils % 0.6 % (0.0-2.0) 03/06/19 06:10 PT 11.6 SECONDS (9.5-11.5) H 02/15/19 23:40 INR 1.13 (0.5-1.4) 02/15/19 23:40 PTT (Actin FS) 44.0 SECONDS (26.0-38.0) H 02/15/19 23:40 Sodium 143 mEq/L (136-145) 03/06/19 06:10 Potassium 3.5 mEq/L (3.5-5.1) 03/06/19 06:10 Chloride 103 mEq/L (98-107) 03/06/19 06:10 Carbon Dioxide 31.4 mEq/L (21.0-31.0) H 03/06/19 06:10 Anion Gap 12.1 (7.0-16.0) 03/06/19 06:10 BUN 29 mg/dL (7-25) H 03/06/19 06:10 Creatinine 0.5 mg/dL (0.6-1.2) L 03/06/19 06:10 Est GFR ( Amer) > 60.0 ml/min (>90) 03/06/19 06:10 Est GFR (Non-Af Amer) > 60.0 ml/min 03/06/19 06:10 BUN/Creatinine Ratio 58.0 03/06/19 06:10 Glucose 101 mg/dL (70-105) 03/06/19 06:10 POC Glucose 105 MG/DL (70 - 105) 03/04/19 09:16 Whole Bld Lactic Acid 0.56 mmol/L (0.60-1.99) L 02/16/19 00:00 Calcium 9.6 mg/dL (8.6-10.3) 03/06/19 06:10 Total Bilirubin 0.5 mg/dL (0.3-1.0) 03/06/19 06:10 AST 28 U/L (13-39) 03/06/19 06:10 ALT 40 U/L (7-52) 03/06/19 06:10 Alkaline Phosphatase 110 U/L (34-104) H 03/06/19 06:10 Troponin I 0.01 ng/mL (0.01-0.05) 02/15/19 23:40 Total Protein 6.9 gm/dL (6.0-8.3) 03/06/19 06:10 Albumin 3.5 gm/dL (3.7-5.3) L 03/06/19 06:10 Globulin 3.4 gm/dL 03/06/19 06:10 Albumin/Globulin Ratio 1.0 (1.0-1.8) 03/06/19 06:10 TSH 4.06 uIU/ml (0.34-5.60) 02/15/19 23:40 Vancomycin Trough 17.7 ug/mL (5-10) H 03/02/19 10:00 Random Vancomycin 4.7 ug/mL (5.0-40.0) L 02/16/19 21:15 - Physical Exam Vitals and I&O: Vital Signs Temp 98.1 F 03/07/19 13:00 Pulse 70 03/07/19 14:20 Resp 18 03/07/19 14:20 BP 128/76 03/07/19 13:00 Pulse Ox 97 03/07/19 14:20 Intake & Output 03/06/19 03/07/19 03/07/19 18:59 06:59 18:59 Intake Total 1120 320 Balance 1120 320 Weight (lbs) 43.091 kg 43.091 kg Intake: Tube Feeding 720 320 Other 400 Other: # Voids 3 3 # Bowel Movements 0 1 Weight Source Bedscale Bedscale Active Medications: Current Medications Acetaminophen (Tylenol) 650 mg GT Q6H PRN PRN Reason: mild pain Stop: 04/17/19 18:42 Last Admin: 03/03/19 21:19 Dose: 650 mg Al Hydrox/Mg Hydrox/Simethicone (Maalox) 30 ml GT Q6HR PRN PRN Reason: GI DISTRESS Stop: 04/17/19 18:42 Albuterol Sulfate (Albuterol 2.5mg/3ml Neb Ud) 2.5 mg HHN Q2HR PRN PRN Reason: Shortness of Breath Stop: 04/17/19 18:42 Albuterol Sulfate (Albuterol 2.5mg/3ml Neb Ud) 2.5 mg HHN [id number] MADHURI Stop: 04/17/19 18:59 Last Admin: 03/07/19 14:11 Dose: 2.5 mg Ascorbic Acid (Vitamin C) 500 mg GT Q12HR MADHURI Stop: 04/17/19 20:59 Last Admin: 03/07/19 09:40 Dose: 500 mg Bisacodyl (Dulcolax 10 Mg Supp) 10 mg RC DAILY PRN PRN Reason: Constipation Stop: 04/17/19 20:14 Budesonide (Pulmicort) 0.5 mg HHN BIDRT MADHURI Stop: 04/18/19 06:59 Last Admin: 03/07/19 07:12 Dose: 0.5 mg Carvedilol (Coreg) 6.25 mg GT Q12H MADHURI Stop: 04/17/19 21:59 Last Admin: 03/07/19 09:39 Dose: 6.25 mg [place] Oil/[place]aur[place] Balsam/Trypsin (Venelex) 1 appl TP DAILY MADHURI Stop: 04/18/19 08:59 Last Admin: 03/07/19 09:44 Dose: 1 appl Docusate Sodium (Colace) 200 mg GT Q12H PRN PRN Reason: Constipation Stop: 04/17/19 20:14 Enalapril Maleate (Vasotec) 2.5 mg PO BID MADHURI Stop: 04/26/19 12:24 Last Admin: 03/07/19 09:40 Dose: 2.5 mg Glucagon (Glucagen) 1 mg IM PRN PRN PRN Reason: Blood Glucose less than 70 Stop: 04/17/19 20:14 Last Admin: 02/28/19 21:12 Dose: 1 mg Lactobacillus Rhamnosus (Culturelle 15b) 1 each GT DAILY MADHURI Stop: 04/18/19 08:59 Last Admin: 03/07/19 09:40 Dose: 1 each Lorazepam (Ativan) 1 mg IM Q6HR PRN; Protocol PRN Reason: Agitation Stop: 04/17/19 02:49 Last Admin: 03/05/19 11:37 Dose: 1 mg Lorazepam (Ativan) 0.5 mg PO Q4HR PRN; Protocol PRN Reason: Agitation Stop: 05/04/19 12:08 Magnesium Hydroxide (Milk Of Magnesia) 30 ml GT HS PRN PRN Reason: Constipation Stop: 04/17/19 18:42 Magnesium Oxide (Mag-Oxide) 400 mg GT BID MADHURI Stop: 04/18/19 08:59 Last Admin: 03/07/19 09:40 Dose: 400 mg Mirtazapine (Remeron) 7.5 mg PO HS MADHURI; Protocol Stop: 05/04/19 20:59 Last Admin: 03/06/19 21:17 Dose: 7.5 mg Ondansetron HCl (Zofran) 4 mg IV Q6H PRN PRN Reason: Nausea / Vomiting Stop: 04/28/19 06:20 Sodium Phosphate (Fleet Enema) 135 ml RC Q48HR PRN PRN Reason: Constipation Stop: 04/17/19 20:14 General: No acute distress HEENT: Mucous membr. moist/pink Neck: Supple, JVD, +2 carotid pulse wo bruit (flat) Cardiovascular: Regular rate, Normal S1, Normal S2, Systolic murmurs Lungs: Clear to auscultation, Normal air movement Abdomen: Bowel sounds, Soft, Other (G-tube) - Procedures Procedures: Procedures Procedure Code Date INSERTION OF FEEDING DEVICE INTO STOMACH, PERC APPROACH [id number] 01/02/19 INSERTION OF INFUSION DEVICE INTO R LOW ARM, PERC APPROACH [id number] 01/02/19 INTRODUCTION OF NUTRITIONAL INTO PERIPH VEIN, PERC APPROACH [id number] 01/02/19 RESPIRATORY VENTILATION, LESS THAN 24 CONSECUTIVE HOURS [id number] 04/07/18 Assessment/Plan - Assessment Assessment: Uncontrolled hypertension MRSA sepsis Osteomyelitis of the lumbosacral spine Discitis lumbosacral spine Dementia Dysphagia with PEG placement Protein calorie malnutrition Psychosis COPD - Plan Plan: Continue antihypertensive treatment continue antibiotics Venous duplex study Nutritional Asmnt/Malnutr-PDOC - Dietary Evaluation Malnutrition Findings (Please click <Entered> for more info): Nutritional Asmnt/Malnutrition Start: 02/17/19 17: 23 Text: Status: Complete Freq: Protocol: Document 02/17/19 17:23 LCHENG (Rec: 02/17/19 17:28 LCHENG [email or web address]) Nutritional Asmnt/Malnutrition Patient General Information Nutritional Screening High Risk Consult Diagnosis osteomyelitis, central line placement Pertinent Medical Hx/Surgical Hx HTN, asthma/COPD, PUD/GERd, osteomylitis, anemia, PEG/ Gtube, schizophrenia, bipolar Subjective Information Consult received for ricky 12 and open wound. Pt seen resting in bed at time of visit. TF off at this time. Current Diet Order/ Nutrition Support Glucerna 1.2 at 60ml/hr x 20hr Pertinent Medications vit C, colace, heperin, humalog, culturelle, mag-oxide , vancomycin Pertinent Labs 02/17 K 3.4, Cr 0.5, glucose 94 Nutritional Hx/Data Height 1.65 m Height (Calculated Centimeters) 165.1 Current Weight (lbs) 36.741 kg Weight (Calculated Kilograms) 36.7 Weight (Calculated Grams) 58798.0 Veteran Body Weight 125 Body Mass Index (BMI) 13.4 Weight Status Underweight GI Symptoms GI Symptoms None Last BM none Difficult in: None Skin Integrity/Comment: left foot and bilat arms bruises pressure area Complex - Includes bone to sacrum, skin tear to right foot ricky 12 Estimated Nutritional Goals Calories/Kcals/Kg 25-30 Kcals Calculated 3018-3271 Protein g/k.2-1.4 Protein Calculated 68-80 Fluid: ml 1425-1710ml (1ml/kcal) Nutritional Problem 1. Problem Problem increased nutrition needs Etiology impaired skin integrity Signs/Symptoms: open wound to sacrum Intervention/Recommendation Comments 1. Continue with current TF regimen with Glucerna 1.2 at 60ml/hr x 20hr. It provides 1440kcal, 72g protein, 966ml free water, meeting 100% of nutritional needs. Add Sadi BID for wound healing. 2. Monitor TF rate, tolerance, wt, skin integrity and labs 3. F/U as high risk in 2-3 days Expected Outcomes/Goals Expected Outcomes/Goals 1. Pt to meet at least 90% of nutritional needs via nutrition support with tolerance 2. Wt stability, skin to remain intact, labs to approach WNL.
--- NOTE | 2019-03-08 01:15 | Progress Notes ---
DATE: 03/07/2019 Case was discussed with staff of the patient, reviewed records. The patient is nonverbal, has a G-tube. She is in general calmer. She is sleeping better, eating better. She has a G-tube to be fed from unable to verbalize any plan for self-care, unpredictable. She is compliant with the medication with no side effects. I initiated her on Remeron and the patient needs to follow up with the psychiatrist upon discharge. Thank you very much for allowing me to participate in the care of this most interesting lady. JOB# [id number]
[2019-03-08] MEDS: Budesonide 0.5 Mg/2 mL Ud HHN SCH ×2 (07:35→18:57)
[2019-03-08] MEDS: Albuterol Nebulizer 2.5mg/3mL HHN SCH ×4 (07:36→18:57)
[2019-03-08] MEDS: Lactobacillus Rhamnosus GG 15 Billion CFU CAP.SPRINK GT SCH (09:11)
[2019-03-08] MEDS: Multivitamin w/ Minerals Tab GT SCH (09:11)
[2019-03-08] MEDS: Venelex 60gm Tube TP SCH (09:12)
--- NOTE | 2019-03-08 14:14 | General Progress Note ---
Subjective - Review of Systems Service Date: 03/08/19 Subjective: Patient exam aimed discussed with the nurse chart reviewed patient's clinically unchanged Patient has swelling of the left upper extremity patient's IV site infiltrated in the same arm DVT Objective - Results Result Diagrams: 03/06/19 06:10 03/06/19 06:10 Recent Labs: Laboratory Last Values WBC 5.9 Th/cmm (4.8-10.8) 03/06/19 06:10 RBC 3.88 Mil/cmm (3.80-5.10) 03/06/19 06:10 Hgb 12.5 gm/dL (12-16) 03/06/19 06:10 Hct 37.2 % (41.0-60) L 03/06/19 06:10 MCV 95.7 fl (81-100) 03/06/19 06:10 MCH 32.1 pg (27.0-31.0) H 03/06/19 06:10 MCHC Differential 33.5 pg (28.0-36.0) 03/06/19 06:10 RDW 13.1 % (11.5-20.0) 03/06/19 06:10 Plt Count 266 Th/cmm (150-400) 03/06/19 06:10 MPV 7.5 fl 03/06/19 06:10 Neutrophils % 72.3 % (40.0-80.0) 03/06/19 06:10 Lymphocytes % 16.1 % (20.0-50.0) L 03/06/19 06:10 Monocytes % 8.6 % (2.0-10.0) 03/06/19 06:10 Eosinophils % 2.4 % (0.0-5.0) 03/06/19 06:10 Basophils % 0.6 % (0.0-2.0) 03/06/19 06:10 PT 11.6 SECONDS (9.5-11.5) H 02/15/19 23:40 INR 1.13 (0.5-1.4) 02/15/19 23:40 PTT (Actin FS) 44.0 SECONDS (26.0-38.0) H 02/15/19 23:40 Sodium 143 mEq/L (136-145) 03/06/19 06:10 Potassium 3.5 mEq/L (3.5-5.1) 03/06/19 06:10 Chloride 103 mEq/L (98-107) 03/06/19 06:10 Carbon Dioxide 31.4 mEq/L (21.0-31.0) H 03/06/19 06:10 Anion Gap 12.1 (7.0-16.0) 03/06/19 06:10 BUN 29 mg/dL (7-25) H 03/06/19 06:10 Creatinine 0.5 mg/dL (0.6-1.2) L 03/06/19 06:10 Est GFR ( Amer) > 60.0 ml/min (>90) 03/06/19 06:10 Est GFR (Non-Af Amer) > 60.0 ml/min 03/06/19 06:10 BUN/Creatinine Ratio 58.0 03/06/19 06:10 Glucose 101 mg/dL (70-105) 03/06/19 06:10 POC Glucose 105 MG/DL (70 - 105) 03/04/19 09:16 Whole Bld Lactic Acid 0.56 mmol/L (0.60-1.99) L 02/16/19 00:00 Calcium 9.6 mg/dL (8.6-10.3) 03/06/19 06:10 Total Bilirubin 0.5 mg/dL (0.3-1.0) 03/06/19 06:10 AST 28 U/L (13-39) 03/06/19 06:10 ALT 40 U/L (7-52) 03/06/19 06:10 Alkaline Phosphatase 110 U/L (34-104) H 03/06/19 06:10 Troponin I 0.01 ng/mL (0.01-0.05) 02/15/19 23:40 Total Protein 6.9 gm/dL (6.0-8.3) 03/06/19 06:10 Albumin 3.5 gm/dL (3.7-5.3) L 03/06/19 06:10 Globulin 3.4 gm/dL 03/06/19 06:10 Albumin/Globulin Ratio 1.0 (1.0-1.8) 03/06/19 06:10 TSH 4.06 uIU/ml (0.34-5.60) 02/15/19 23:40 Vancomycin Trough 17.7 ug/mL (5-10) H 03/02/19 10:00 Random Vancomycin 4.7 ug/mL (5.0-40.0) L 02/16/19 21:15 - Physical Exam Vitals and I&O: Vital Signs Temp 97.8 F 03/08/19 13:00 Pulse 68 03/08/19 13:00 Resp 18 03/08/19 13:00 BP 123/91 03/08/19 13:00 Pulse Ox 100 03/08/19 12:00 Intake & Output 03/07/19 03/08/19 03/08/19 18:59 06:59 18:59 Intake Total 1120 Output Total 2 Balance 1118 Weight (lbs) 43.091 kg Intake: Tube Feeding 720 Other 400 Output: Stool 2 Other: # Voids 2 # Bowel Movements 2 Weight Source Bedscale Active Medications: Current Medications Acetaminophen (Tylenol) 650 mg GT Q6H PRN PRN Reason: mild pain Stop: 04/17/19 18:42 Last Admin: 03/03/19 21:19 Dose: 650 mg Al Hydrox/Mg Hydrox/Simethicone (Maalox) 30 ml GT Q6HR PRN PRN Reason: GI DISTRESS Stop: 04/17/19 18:42 Albuterol Sulfate (Albuterol 2.5mg/3ml Neb Ud) 2.5 mg HHN Q2HR PRN PRN Reason: Shortness of Breath Stop: 04/17/19 18:42 Albuterol Sulfate (Albuterol 2.5mg/3ml Neb Ud) 2.5 mg HHN [id number] [facility] Stop: 04/17/19 18:59 Last Admin: 03/08/19 10:41 Dose: 2.5 mg Ascorbic Acid (Vitamin C) 500 mg GT Q12HR MADHURI Stop: 04/17/19 20:59 Last Admin: 03/08/19 09:11 Dose: 500 mg Bisacodyl (Dulcolax 10 Mg Supp) 10 mg RC DAILY PRN PRN Reason: Constipation Stop: 04/17/19 20:14 Budesonide (Pulmicort) 0.5 mg HHN BIDRT MADHURI Stop: 04/18/19 06:59 Last Admin: 03/08/19 07:35 Dose: 0.5 mg Carvedilol (Coreg) 6.25 mg GT Q12H MADHURI Stop: 04/17/19 21:59 Last Admin: 03/08/19 09:12 Dose: Not Given [place] Oil/[place] Balsam/Trypsin (Venelex) 1 appl TP DAILY MADHURI Stop: 04/18/19 08:59 Last Admin: 03/08/19 09:12 Dose: 1 appl Docusate Sodium (Colace) 200 mg GT Q12H PRN PRN Reason: Constipation Stop: 04/17/19 20:14 Enalapril Maleate (Vasotec) 2.5 mg PO BID MADHURI Stop: 04/26/19 12:24 Last Admin: 03/08/19 09:12 Dose: Not Given Glucagon (Glucagen) 1 mg IM PRN PRN PRN Reason: Blood Glucose less than 70 Stop: 04/17/19 20:14 Last Admin: 02/28/19 21:12 Dose: 1 mg Lactobacillus Rhamnosus (Culturelle 15b) 1 each GT DAILY MADHURI Stop: 04/18/19 08:59 Last Admin: 03/08/19 09:11 Dose: 1 each Lorazepam (Ativan) 1 mg IM Q6HR PRN; Protocol PRN Reason: Agitation Stop: 04/17/19 02:49 Last Admin: 03/05/19 11:37 Dose: 1 mg Lorazepam (Ativan) 0.5 mg PO Q4HR PRN; Protocol PRN Reason: Agitation Stop: 05/04/19 12:08 Magnesium Hydroxide (Milk Of Magnesia) 30 ml GT HS PRN PRN Reason: Constipation Stop: 04/17/19 18:42 Magnesium Oxide (Mag-Oxide) 400 mg GT BID MADHURI Stop: 04/18/19 08:59 Last Admin: 03/08/19 09:11 Dose: 400 mg Mirtazapine (Remeron) 7.5 mg PO HS MADHURI; Protocol Stop: 05/04/19 20:59 Last Admin: 03/07/19 22:26 Dose: 7.5 mg Ondansetron HCl (Zofran) 4 mg IV Q6H PRN PRN Reason: Nausea / Vomiting Stop: 04/28/19 06:20 Sodium Phosphate (Fleet Enema) 135 ml RC Q48HR PRN PRN Reason: Constipation Stop: 04/17/19 20:14 General: No acute distress HEENT: Mucous membr. moist/pink Neck: Supple, JVD, +2 carotid pulse wo bruit (flat) Cardiovascular: Regular rate, Normal S1, Normal S2, Systolic murmurs Lungs: Clear to auscultation, Normal air movement Abdomen: Bowel sounds, Soft, Other (G-tube) - Procedures Procedures: Procedures Procedure Code Date INSERTION OF FEEDING DEVICE INTO STOMACH, PERC APPROACH [id number] 01/02/19 INSERTION OF INFUSION DEVICE INTO R LOW ARM, PERC APPROACH [id number] 01/02/19 INTRODUCTION OF NUTRITIONAL INTO PERIPH VEIN, PERC APPROACH 4D0832N 01/02/19 RESPIRATORY VENTILATION, LESS THAN 24 CONSECUTIVE HOURS [id number] 04/07/18 Assessment/Plan - Assessment Assessment: Uncontrolled hypertension MRSA sepsis Osteomyelitis of the lumbosacral spine Discitis lumbosacral spine Dementia Dysphagia with PEG placement Protein calorie malnutrition Psychosis COPD DVT upper extremity - Plan Plan: Continue antihypertensive treatment continue antibiotics Venous duplex study Nutritional Asmnt/Malnutr-PDOC - Dietary Evaluation Malnutrition Findings (Please click <Entered> for more info): Nutritional Asmnt/Malnutrition Start: 02/17/19 17: 23 Text: Status: Complete Freq: Protocol: Document 02/17/19 17:23 LCHENG (Rec: 02/17/19 17:28 [email or web address] [email or web address]) Nutritional Asmnt/Malnutrition Patient General Information Nutritional Screening High Risk Consult Diagnosis osteomyelitis, central line placement Pertinent Medical Hx/Surgical Hx HTN, asthma/COPD, PUD/GERd, osteomylitis, anemia, PEG/ Gtube, schizophrenia, bipolar Subjective Information Consult received for ricky 12 and open wound. Pt seen resting in bed at time of visit. TF off at this time. Current Diet Order/ Nutrition Support Glucerna 1.2 at 60ml/hr x 20hr Pertinent Medications vit C, colace, heperin, humalog, culturelle, mag-oxide , vancomycin Pertinent Labs 02/17 K 3.4, Cr 0.5, glucose 94 Nutritional Hx/Data Height 1.65 m Height (Calculated Centimeters) 165.1 Current Weight (lbs) 36.741 kg Weight (Calculated Kilograms) 36.7 Weight (Calculated Grams) 72278.0 [place] Body Weight 125 Body Mass Index (BMI) 13.4 Weight Status Underweight GI Symptoms GI Symptoms None Last BM none Difficult in: None Skin Integrity/Comment: left foot and bilat arms bruises pressure area Complex - Includes bone to sacrum, skin tear to right foot ricky 12 Estimated Nutritional Goals Calories/Kcals/Kg 25-30 Kcals Calculated 6431-0983 Protein g/k.2-1.4 Protein Calculated 68-80 Fluid: ml 1425-1710ml (1ml/kcal) Nutritional Problem 1. Problem Problem increased nutrition needs Etiology impaired skin integrity Signs/Symptoms: open wound to sacrum Intervention/Recommendation Comments 1. Continue with current TF regimen with Glucerna 1.2 at 60ml/hr x 20hr. It provides 1440kcal, 72g protein, 966ml free water, meeting 100% of nutritional needs. Add Sadi BID for wound healing. 2. Monitor TF rate, tolerance, wt, skin integrity and labs 3. F/U as high risk in 2-3 days Expected Outcomes/Goals Expected Outcomes/Goals 1. Pt to meet at least 90% of nutritional needs via nutrition support with tolerance 2. Wt stability, skin to remain intact, labs to approach WNL.
[2019-03-09] MEDS: Budesonide 0.5 Mg/2 mL Ud HHN SCH ×2 (06:32→20:08)
[2019-03-09] MEDS: Albuterol Nebulizer 2.5mg/3mL HHN SCH ×4 (06:33→20:08)
[2019-03-09] MEDS: Lactobacillus Rhamnosus GG 15 Billion CFU CAP.SPRINK GT SCH (09:26)
[2019-03-09] MEDS: Multivitamin w/ Minerals Tab GT SCH (09:26)
[2019-03-09] MEDS: Venelex 60gm Tube TP SCH (09:27)
--- NOTE | 2019-03-09 10:02 | Internal Medicine Prog Note ---
Internal Medicine Subjective - Subjective Patient is:: awake, interactive, confused, other (swelling of the left upper extremity ) Patient Complaints of:: other (Hx of copd.) Per staff patient has:: no adverse event, no episodes of fall Internal Medicine Objective - Results Result Diagrams: 03/06/19 06:10 03/06/19 06:10 Recent Labs: Laboratory Last Values WBC 5.9 Th/cmm (4.8-10.8) 03/06/19 06:10 RBC 3.88 Mil/cmm (3.80-5.10) 03/06/19 06:10 Hgb 12.5 gm/dL (12-16) 03/06/19 06:10 Hct 37.2 % (41.0-60) L 03/06/19 06:10 MCV 95.7 fl (81-100) 03/06/19 06:10 MCH 32.1 pg (27.0-31.0) H 03/06/19 06:10 MCHC Differential 33.5 pg (28.0-36.0) 03/06/19 06:10 RDW 13.1 % (11.5-20.0) 03/06/19 06:10 Plt Count 266 Th/cmm (150-400) 03/06/19 06:10 MPV 7.5 fl 03/06/19 06:10 Neutrophils % 72.3 % (40.0-80.0) 03/06/19 06:10 Lymphocytes % 16.1 % (20.0-50.0) L 03/06/19 06:10 Monocytes % 8.6 % (2.0-10.0) 03/06/19 06:10 Eosinophils % 2.4 % (0.0-5.0) 03/06/19 06:10 Basophils % 0.6 % (0.0-2.0) 03/06/19 06:10 PT 11.6 SECONDS (9.5-11.5) H 02/15/19 23:40 INR 1.13 (0.5-1.4) 02/15/19 23:40 PTT (Actin FS) 44.0 SECONDS (26.0-38.0) H 02/15/19 23:40 Sodium 143 mEq/L (136-145) 03/06/19 06:10 Potassium 3.5 mEq/L (3.5-5.1) 03/06/19 06:10 Chloride 103 mEq/L (98-107) 03/06/19 06:10 Carbon Dioxide 31.4 mEq/L (21.0-31.0) H 03/06/19 06:10 Anion Gap 12.1 (7.0-16.0) 03/06/19 06:10 BUN 29 mg/dL (7-25) H 03/06/19 06:10 Creatinine 0.5 mg/dL (0.6-1.2) L 03/06/19 06:10 Est GFR ( Amer) > 60.0 ml/min (>90) 03/06/19 06:10 Est GFR (Non-Af Amer) > 60.0 ml/min 03/06/19 06:10 BUN/Creatinine Ratio 58.0 03/06/19 06:10 Glucose 101 mg/dL (70-105) 03/06/19 06:10 POC Glucose 105 MG/DL (70 - 105) 03/04/19 09:16 Whole Bld Lactic Acid 0.56 mmol/L (0.60-1.99) L 02/16/19 00:00 Calcium 9.6 mg/dL (8.6-10.3) 03/06/19 06:10 Total Bilirubin 0.5 mg/dL (0.3-1.0) 03/06/19 06:10 AST 28 U/L (13-39) 03/06/19 06:10 ALT 40 U/L (7-52) 03/06/19 06:10 Alkaline Phosphatase 110 U/L (34-104) H 03/06/19 06:10 Troponin I 0.01 ng/mL (0.01-0.05) 02/15/19 23:40 Total Protein 6.9 gm/dL (6.0-8.3) 03/06/19 06:10 Albumin 3.5 gm/dL (3.7-5.3) L 03/06/19 06:10 Globulin 3.4 gm/dL 03/06/19 06:10 Albumin/Globulin Ratio 1.0 (1.0-1.8) 03/06/19 06:10 TSH 4.06 uIU/ml (0.34-5.60) 02/15/19 23:40 Vancomycin Trough 17.7 ug/mL (5-10) H 03/02/19 10:00 Random Vancomycin 4.7 ug/mL (5.0-40.0) L 02/16/19 21:15 - Physical Exam Vitals and I&O: Vital Signs Temp 96.7 F 03/09/19 08:00 Pulse 60 03/09/19 09:42 Resp 18 03/09/19 08:00 BP 116/83 03/09/19 09:42 Pulse Ox 100 03/09/19 08:00 Intake & Output 03/08/19 03/09/19 03/09/19 18:59 06:59 18:59 Intake Total 1000 445 Balance 1000 445 Weight (lbs) 43.091 kg 43.091 kg 43.091 kg Intake: Tube Feeding 600 445 Other 400 Other: # Voids 3 2 # Bowel Movements 0 Weight Source Bedscale Bedscale Bedscale Active Medications: Current Medications Acetaminophen (Tylenol) 650 mg GT Q6H PRN PRN Reason: mild pain Stop: 04/17/19 18:42 Last Admin: 03/03/19 21:19 Dose: 650 mg Al Hydrox/Mg Hydrox/Simethicone (Maalox) 30 ml GT Q6HR PRN PRN Reason: GI DISTRESS Stop: 04/17/19 18:42 Albuterol Sulfate (Albuterol 2.5mg/3ml Neb Ud) 2.5 mg HHN Q2HR PRN PRN Reason: Shortness of Breath Stop: 04/17/19 18:42 Albuterol Sulfate (Albuterol 2.5mg/3ml Neb Ud) 2.5 mg HHN [id number] MADHURI Stop: 04/17/19 18:59 Last Admin: 03/09/19 06:33 Dose: 2.5 mg Ascorbic Acid (Vitamin C) 500 mg GT Q12HR MADHURI Stop: 04/17/19 20:59 Last Admin: 03/09/19 09:26 Dose: 500 mg Bisacodyl (Dulcolax 10 Mg Supp) 10 mg RC DAILY PRN PRN Reason: Constipation Stop: 04/17/19 20:14 Budesonide (Pulmicort) 0.5 mg HHN BIDRT MADHURI Stop: 04/18/19 06:59 Last Admin: 03/09/19 06:32 Dose: 0.5 mg Carvedilol (Coreg) 6.25 mg GT Q12H MADHURI Stop: 04/17/19 21:59 Last Admin: 03/09/19 09:42 Dose: Not Given [place] Oil/[place] Balsam/Trypsin (Venelex) 1 appl TP DAILY MADHURI Stop: 04/18/19 08:59 Last Admin: 03/09/19 09:27 Dose: 1 appl Docusate Sodium (Colace) 200 mg GT Q12H PRN PRN Reason: Constipation Stop: 04/17/19 20:14 Enalapril Maleate (Vasotec) 2.5 mg PO BID MADHURI Stop: 04/26/19 12:24 Last Admin: 03/09/19 09:27 Dose: Not Given Glucagon (Glucagen) 1 mg IM PRN PRN PRN Reason: Blood Glucose less than 70 Stop: 04/17/19 20:14 Last Admin: 02/28/19 21:12 Dose: 1 mg Lactobacillus Rhamnosus (Culturelle 15b) 1 each GT DAILY MADHURI Stop: 04/18/19 08:59 Last Admin: 03/09/19 09:26 Dose: 1 each Lorazepam (Ativan) 1 mg IM Q6HR PRN; Protocol PRN Reason: Agitation Stop: 04/17/19 02:49 Last Admin: 03/05/19 11:37 Dose: 1 mg Lorazepam (Ativan) 0.5 mg PO Q4HR PRN; Protocol PRN Reason: Agitation Stop: 05/04/19 12:08 Magnesium Hydroxide (Milk Of Magnesia) 30 ml GT HS PRN PRN Reason: Constipation Stop: 04/17/19 18:42 Magnesium Oxide (Mag-Oxide) 400 mg GT BID MADHURI Stop: 04/18/19 08:59 Last Admin: 03/09/19 09:26 Dose: 400 mg Mirtazapine (Remeron) 7.5 mg PO HS MADHURI; Protocol Stop: 05/04/19 20:59 Last Admin: 03/08/19 21:34 Dose: 7.5 mg Ondansetron HCl (Zofran) 4 mg IV Q6H PRN PRN Reason: Nausea / Vomiting Stop: 04/28/19 06:20 Sodium Phosphate (Fleet Enema) 135 ml RC Q48HR PRN PRN Reason: Constipation Stop: 04/17/19 20:14 Physical Exam: 58 y/o female patient is less agitated, sleeping better and doing better. General: weak, demented HEENT: NC/AT, PERRLA Neck: Supple, No JVD Lungs: CTAB Cardiovascular: RRR, Normal S1 Abdomen: soft, non-tender Extremities: clear Neurological: no change, unable to follow command, other - Procedures Procedures: Procedures Procedure Code Date INSERTION OF FEEDING DEVICE INTO STOMACH, PERC APPROACH [id number] 01/02/19 INSERTION OF INFUSION DEVICE INTO R LOW ARM, PERC APPROACH [id number] 01/02/19 INTRODUCTION OF NUTRITIONAL INTO PERIPH VEIN, PERC APPROACH [id number] 01/02/19 RESPIRATORY VENTILATION, LESS THAN 24 CONSECUTIVE HOURS [id number] 04/07/18 Internal Medicine Assmt/Plan - Assessment Assessment: Hypertension. MRSA sepsis, treated Diskitis. Osteomyelitis of lumbar spine Anemia. Protein Malnutrition. S/p Deccanulation. S/p Percutaneous Endoscopic gastrostomy. Less agitated Dementia Psychosis Chronic Copd Protein-calorie malnutrition Failure to thrive - Plan Plan: Continuation of care Continue present meds as directed Monitor Vitals, Labs and Pain management Fall precaution Continue present care management Nutritional Asmnt/Malnutr-PDOC - Dietary Evaluation Malnutrition Findings (Please click <Entered> for more info): Nutritional Asmnt/Malnutrition Start: 02/17/19 17: 23 Text: Status: Complete Freq: Protocol: Document 02/17/19 17:23 LCHENG (Rec: 02/17/19 17:28 LCHENG [email or web address]) Nutritional Asmnt/Malnutrition Patient General Information Nutritional Screening High Risk Consult Diagnosis osteomyelitis, central line placement Pertinent Medical Hx/Surgical Hx HTN, asthma/COPD, PUD/GERd, osteomylitis, anemia, PEG/ Gtube, schizophrenia, bipolar Subjective Information Consult received for ricky 12 and open wound. Pt seen resting in bed at time of visit. TF off at this time. Current Diet Order/ Nutrition Support Glucerna 1.2 at 60ml/hr x 20hr Pertinent Medications vit C, colace, heperin, humalog, culturelle, mag-oxide , vancomycin Pertinent Labs 02/17 K 3.4, Cr 0.5, glucose 94 Nutritional Hx/Data Height 1.65 m Height (Calculated Centimeters) 165.1 Current Weight (lbs) 36.741 kg Weight (Calculated Kilograms) 36.7 Weight (Calculated Grams) 17375.0 [place] Body Weight 125 Body Mass Index (BMI) 13.4 Weight Status Underweight GI Symptoms GI Symptoms None Last BM none Difficult in: None Skin Integrity/Comment: left foot and bilat arms bruises pressure area Complex - Includes bone to sacrum, skin tear to right foot ricky 12 Estimated Nutritional Goals Calories/Kcals/Kg 25-30 Kcals Calculated 4140-8909 Protein g/k.2-1.4 Protein Calculated 68-80 Fluid: ml 1425-1710ml (1ml/kcal) Nutritional Problem 1. Problem Problem increased nutrition needs Etiology impaired skin integrity Signs/Symptoms: open wound to sacrum Intervention/Recommendation Comments 1. Continue with current TF regimen with Glucerna 1.2 at 60ml/hr x 20hr. It provides 1440kcal, 72g protein, 966ml free water, meeting 100% of nutritional needs. Add Sadi BID for wound healing. 2. Monitor TF rate, tolerance, wt, skin integrity and labs 3. F/U as high risk in 2-3 days Expected Outcomes/Goals Expected Outcomes/Goals 1. Pt to meet at least 90% of nutritional needs via nutrition support with tolerance 2. Wt stability, skin to remain intact, labs to approach WNL.
--- NOTE | 2019-03-09 14:06 | General Progress Note ---
Subjective - Review of Systems Service Date: 03/09/19 Subjective: Patient exam aimed discussed with the nurse chart reviewed patient's clinically unchanged Patient has swelling of the left upper extremity patient's IV site infiltrated in the same arm DVT Objective - Results Result Diagrams: 03/06/19 06:10 03/06/19 06:10 Recent Labs: Laboratory Last Values WBC 5.9 Th/cmm (4.8-10.8) 03/06/19 06:10 RBC 3.88 Mil/cmm (3.80-5.10) 03/06/19 06:10 Hgb 12.5 gm/dL (12-16) 03/06/19 06:10 Hct 37.2 % (41.0-60) L 03/06/19 06:10 MCV 95.7 fl (81-100) 03/06/19 06:10 MCH 32.1 pg (27.0-31.0) H 03/06/19 06:10 MCHC Differential 33.5 pg (28.0-36.0) 03/06/19 06:10 RDW 13.1 % (11.5-20.0) 03/06/19 06:10 Plt Count 266 Th/cmm (150-400) 03/06/19 06:10 MPV 7.5 fl 03/06/19 06:10 Neutrophils % 72.3 % (40.0-80.0) 03/06/19 06:10 Lymphocytes % 16.1 % (20.0-50.0) L 03/06/19 06:10 Monocytes % 8.6 % (2.0-10.0) 03/06/19 06:10 Eosinophils % 2.4 % (0.0-5.0) 03/06/19 06:10 Basophils % 0.6 % (0.0-2.0) 03/06/19 06:10 PT 11.6 SECONDS (9.5-11.5) H 02/15/19 23:40 INR 1.13 (0.5-1.4) 02/15/19 23:40 PTT (Actin FS) 44.0 SECONDS (26.0-38.0) H 02/15/19 23:40 Sodium 143 mEq/L (136-145) 03/06/19 06:10 Potassium 3.5 mEq/L (3.5-5.1) 03/06/19 06:10 Chloride 103 mEq/L (98-107) 03/06/19 06:10 Carbon Dioxide 31.4 mEq/L (21.0-31.0) H 03/06/19 06:10 Anion Gap 12.1 (7.0-16.0) 03/06/19 06:10 BUN 29 mg/dL (7-25) H 03/06/19 06:10 Creatinine 0.5 mg/dL (0.6-1.2) L 03/06/19 06:10 Est GFR ( Amer) > 60.0 ml/min (>90) 03/06/19 06:10 Est GFR (Non-Af Amer) > 60.0 ml/min 03/06/19 06:10 BUN/Creatinine Ratio 58.0 03/06/19 06:10 Glucose 101 mg/dL (70-105) 03/06/19 06:10 POC Glucose 105 MG/DL (70 - 105) 03/04/19 09:16 Whole Bld Lactic Acid 0.56 mmol/L (0.60-1.99) L 02/16/19 00:00 Calcium 9.6 mg/dL (8.6-10.3) 03/06/19 06:10 Total Bilirubin 0.5 mg/dL (0.3-1.0) 03/06/19 06:10 AST 28 U/L (13-39) 03/06/19 06:10 ALT 40 U/L (7-52) 03/06/19 06:10 Alkaline Phosphatase 110 U/L (34-104) H 03/06/19 06:10 Troponin I 0.01 ng/mL (0.01-0.05) 02/15/19 23:40 Total Protein 6.9 gm/dL (6.0-8.3) 03/06/19 06:10 Albumin 3.5 gm/dL (3.7-5.3) L 03/06/19 06:10 Globulin 3.4 gm/dL 03/06/19 06:10 Albumin/Globulin Ratio 1.0 (1.0-1.8) 03/06/19 06:10 TSH 4.06 uIU/ml (0.34-5.60) 02/15/19 23:40 Vancomycin Trough 17.7 ug/mL (5-10) H 03/02/19 10:00 Random Vancomycin 4.7 ug/mL (5.0-40.0) L 02/16/19 21:15 - Physical Exam Vitals and I&O: Vital Signs Temp 96.7 F 03/09/19 13:28 Pulse 60 03/09/19 13:28 Resp 18 03/09/19 13:28 BP 115/83 03/09/19 13:28 Pulse Ox 92 03/09/19 12:00 Intake & Output 03/08/19 03/09/19 03/09/19 18:59 06:59 18:59 Intake Total 1000 445 Balance 1000 445 Weight (lbs) 43.091 kg 43.091 kg 43.091 kg Intake: Tube Feeding 600 445 Other 400 Other: # Voids 3 2 # Bowel Movements 0 Weight Source Bedscale Bedscale Bedscale Active Medications: Current Medications Acetaminophen (Tylenol) 650 mg GT Q6H PRN PRN Reason: mild pain Stop: 04/17/19 18:42 Last Admin: 03/03/19 21:19 Dose: 650 mg Al Hydrox/Mg Hydrox/Simethicone (Maalox) 30 ml GT Q6HR PRN PRN Reason: GI DISTRESS Stop: 04/17/19 18:42 Albuterol Sulfate (Albuterol 2.5mg/3ml Neb Ud) 2.5 mg HHN Q2HR PRN PRN Reason: Shortness of Breath Stop: 04/17/19 18:42 Albuterol Sulfate (Albuterol 2.5mg/3ml Neb Ud) 2.5 mg HHN [id number] MADHURI Stop: 04/17/19 18:59 Last Admin: 03/09/19 10:50 Dose: 2.5 mg Ascorbic Acid (Vitamin C) 500 mg GT Q12HR MADHURI Stop: 04/17/19 20:59 Last Admin: 03/09/19 09:26 Dose: 500 mg Bisacodyl (Dulcolax 10 Mg Supp) 10 mg RC DAILY PRN PRN Reason: Constipation Stop: 04/17/19 20:14 Budesonide (Pulmicort) 0.5 mg HHN BIDRT MADHURI Stop: 04/18/19 06:59 Last Admin: 03/09/19 06:32 Dose: 0.5 mg Carvedilol (Coreg) 6.25 mg GT Q12H MADHURI Stop: 04/17/19 21:59 Last Admin: 03/09/19 09:42 Dose: Not Given [place] Oil/[place] Balsam/Trypsin (Venelex) 1 appl TP DAILY MADHURI Stop: 04/18/19 08:59 Last Admin: 03/09/19 09:27 Dose: 1 appl Docusate Sodium (Colace) 200 mg GT Q12H PRN PRN Reason: Constipation Stop: 04/17/19 20:14 Enalapril Maleate (Vasotec) 2.5 mg PO BID MADHURI Stop: 04/26/19 12:24 Last Admin: 03/09/19 09:27 Dose: Not Given Glucagon (Glucagen) 1 mg IM PRN PRN PRN Reason: Blood Glucose less than 70 Stop: 04/17/19 20:14 Last Admin: 02/28/19 21:12 Dose: 1 mg Lactobacillus Rhamnosus (Culturelle 15b) 1 each GT DAILY MADHURI Stop: 04/18/19 08:59 Last Admin: 03/09/19 09:26 Dose: 1 each Lorazepam (Ativan) 1 mg IM Q6HR PRN; Protocol PRN Reason: Agitation Stop: 04/17/19 02:49 Last Admin: 03/05/19 11:37 Dose: 1 mg Lorazepam (Ativan) 0.5 mg PO Q4HR PRN; Protocol PRN Reason: Agitation Stop: 05/04/19 12:08 Magnesium Hydroxide (Milk Of Magnesia) 30 ml GT HS PRN PRN Reason: Constipation Stop: 04/17/19 18:42 Magnesium Oxide (Mag-Oxide) 400 mg GT BID MADHURI Stop: 04/18/19 08:59 Last Admin: 03/09/19 09:26 Dose: 400 mg Mirtazapine (Remeron) 7.5 mg PO HS MADHURI; Protocol Stop: 05/04/19 20:59 Last Admin: 03/08/19 21:34 Dose: 7.5 mg Ondansetron HCl (Zofran) 4 mg IV Q6H PRN PRN Reason: Nausea / Vomiting Stop: 04/28/19 06:20 Sodium Phosphate (Fleet Enema) 135 ml RC Q48HR PRN PRN Reason: Constipation Stop: 04/17/19 20:14 General: No acute distress HEENT: Mucous membr. moist/pink Neck: Supple, JVD, +2 carotid pulse wo bruit (flat) Cardiovascular: Regular rate, Normal S1, Normal S2, Systolic murmurs Lungs: Clear to auscultation, Normal air movement Abdomen: Bowel sounds, Soft, Other (G-tube) - Procedures Procedures: Procedures Procedure Code Date INSERTION OF FEEDING DEVICE INTO STOMACH, PERC APPROACH [id number] 01/02/19 INSERTION OF INFUSION DEVICE INTO R LOW ARM, PERC APPROACH [id number] 01/02/19 INTRODUCTION OF NUTRITIONAL INTO PERIPH VEIN, PERC APPROACH [id number] 01/02/19 RESPIRATORY VENTILATION, LESS THAN 24 CONSECUTIVE HOURS [id number] 04/07/18 Assessment/Plan - Assessment Assessment: Uncontrolled hypertension MRSA sepsis Osteomyelitis of the lumbosacral spine Discitis lumbosacral spine Dementia Dysphagia with PEG placement Protein calorie malnutrition Psychosis COPD DVT upper extremity - Plan Plan: Continue antihypertensive treatment continue antibiotics Venous duplex study Nutritional Asmnt/Malnutr-PDOC - Dietary Evaluation Malnutrition Findings (Please click <Entered> for more info): Nutritional Asmnt/Malnutrition Start: 02/17/19 17: 23 Text: Status: Complete Freq: Protocol: Document 02/17/19 17:23 LCHENG (Rec: 02/17/19 17:28 [email or web address]) Nutritional Asmnt/Malnutrition Patient General Information Nutritional Screening High Risk Consult Diagnosis osteomyelitis, central line placement Pertinent Medical Hx/Surgical Hx HTN, asthma/COPD, PUD/GERd, osteomylitis, anemia, PEG/ Gtube, schizophrenia, bipolar Subjective Information Consult received for ricky 12 and open wound. Pt seen resting in bed at time of visit. TF off at this time. Current Diet Order/ Nutrition Support Glucerna 1.2 at 60ml/hr x 20hr Pertinent Medications vit C, colace, heperin, humalog, culturelle, mag-oxide , vancomycin Pertinent Labs 02/17 K 3.4, Cr 0.5, glucose 94 Nutritional Hx/Data Height 1.65 m Height (Calculated Centimeters) 165.1 Current Weight (lbs) 36.741 kg Weight (Calculated Kilograms) 36.7 Weight (Calculated Grams) 31016.0 [place] Body Weight 125 Body Mass Index (BMI) 13.4 Weight Status Underweight GI Symptoms GI Symptoms None Last BM none Difficult in: None Skin Integrity/Comment: left foot and bilat arms bruises pressure area Complex - Includes bone to sacrum, skin tear to right foot ricky 12 Estimated Nutritional Goals Calories/Kcals/Kg 25-30 Kcals Calculated 5637-9417 Protein g/k.2-1.4 Protein Calculated 68-80 Fluid: ml 1425-1710ml (1ml/kcal) Nutritional Problem 1. Problem Problem increased nutrition needs Etiology impaired skin integrity Signs/Symptoms: open wound to sacrum Intervention/Recommendation Comments 1. Continue with current TF regimen with Glucerna 1.2 at 60ml/hr x 20hr. It provides 1440kcal, 72g protein, 966ml free water, meeting 100% of nutritional needs. Add Sadi BID for wound healing. 2. Monitor TF rate, tolerance, wt, skin integrity and labs 3. F/U as high risk in 2-3 days Expected Outcomes/Goals Expected Outcomes/Goals 1. Pt to meet at least 90% of nutritional needs via nutrition support with tolerance 2. Wt stability, skin to remain intact, labs to approach WNL.
[2019-03-10] MEDS: Albuterol Nebulizer 2.5mg/3mL HHN SCH ×4 (06:51→18:50)
[2019-03-10] MEDS: Budesonide 0.5 Mg/2 mL Ud HHN SCH ×2 (07:03→18:50)
[2019-03-10] MEDS: Lactobacillus Rhamnosus GG 15 Billion CFU CAP.SPRINK GT SCH (10:18)
[2019-03-10] MEDS: Docusate Sodium 100 mg/10 mL UD GT PRN (10:19)
[2019-03-10] MEDS: Multivitamin w/ Minerals Tab GT SCH (10:19)
--- NOTE | 2019-03-10 11:37 | Internal Medicine Prog Note ---
Internal Medicine Subjective - Subjective Service Date: 03/10/19 Patient seen and examined:: with staff, chart reviewed Patient is:: awake, interactive, confused, other (swelling of the left upper extremity ) Per staff patient has:: no adverse event, no episodes of fall Internal Medicine Objective - Results Result Diagrams: 03/06/19 06:10 03/06/19 06:10 Recent Labs: Laboratory Last Values WBC 5.9 Th/cmm (4.8-10.8) 03/06/19 06:10 RBC 3.88 Mil/cmm (3.80-5.10) 03/06/19 06:10 Hgb 12.5 gm/dL (12-16) 03/06/19 06:10 Hct 37.2 % (41.0-60) L 03/06/19 06:10 MCV 95.7 fl (81-100) 03/06/19 06:10 MCH 32.1 pg (27.0-31.0) H 03/06/19 06:10 MCHC Differential 33.5 pg (28.0-36.0) 03/06/19 06:10 RDW 13.1 % (11.5-20.0) 03/06/19 06:10 Plt Count 266 Th/cmm (150-400) 03/06/19 06:10 MPV 7.5 fl 03/06/19 06:10 Neutrophils % 72.3 % (40.0-80.0) 03/06/19 06:10 Lymphocytes % 16.1 % (20.0-50.0) L 03/06/19 06:10 Monocytes % 8.6 % (2.0-10.0) 03/06/19 06:10 Eosinophils % 2.4 % (0.0-5.0) 03/06/19 06:10 Basophils % 0.6 % (0.0-2.0) 03/06/19 06:10 PT 11.6 SECONDS (9.5-11.5) H 02/15/19 23:40 INR 1.13 (0.5-1.4) 02/15/19 23:40 PTT (Actin FS) 44.0 SECONDS (26.0-38.0) H 02/15/19 23:40 Sodium 143 mEq/L (136-145) 03/06/19 06:10 Potassium 3.5 mEq/L (3.5-5.1) 03/06/19 06:10 Chloride 103 mEq/L (98-107) 03/06/19 06:10 Carbon Dioxide 31.4 mEq/L (21.0-31.0) H 03/06/19 06:10 Anion Gap 12.1 (7.0-16.0) 03/06/19 06:10 BUN 29 mg/dL (7-25) H 03/06/19 06:10 Creatinine 0.5 mg/dL (0.6-1.2) L 03/06/19 06:10 Est GFR ( Amer) > 60.0 ml/min (>90) 03/06/19 06:10 Est GFR (Non-Af Amer) > 60.0 ml/min 03/06/19 06:10 BUN/Creatinine Ratio 58.0 03/06/19 06:10 Glucose 101 mg/dL (70-105) 03/06/19 06:10 POC Glucose 105 MG/DL (70 - 105) 03/04/19 09:16 Whole Bld Lactic Acid 0.56 mmol/L (0.60-1.99) L 02/16/19 00:00 Calcium 9.6 mg/dL (8.6-10.3) 03/06/19 06:10 Total Bilirubin 0.5 mg/dL (0.3-1.0) 03/06/19 06:10 AST 28 U/L (13-39) 03/06/19 06:10 ALT 40 U/L (7-52) 03/06/19 06:10 Alkaline Phosphatase 110 U/L (34-104) H 03/06/19 06:10 Troponin I 0.01 ng/mL (0.01-0.05) 02/15/19 23:40 Total Protein 6.9 gm/dL (6.0-8.3) 03/06/19 06:10 Albumin 3.5 gm/dL (3.7-5.3) L 03/06/19 06:10 Globulin 3.4 gm/dL 03/06/19 06:10 Albumin/Globulin Ratio 1.0 (1.0-1.8) 03/06/19 06:10 TSH 4.06 uIU/ml (0.34-5.60) 02/15/19 23:40 Vancomycin Trough 17.7 ug/mL (5-10) H 03/02/19 10:00 Random Vancomycin 4.7 ug/mL (5.0-40.0) L 02/16/19 21:15 - Physical Exam Vitals and I&O: Vital Signs Temp 97.7 F 03/10/19 07:42 Pulse 62 03/10/19 11:07 Resp 18 03/10/19 11:07 BP 143/81 03/10/19 10:19 Pulse Ox 97 03/10/19 11:07 Intake & Output 03/09/19 03/10/19 03/10/19 18:59 06:59 18:59 Intake Total 1120 650 Balance 1120 650 Weight (lbs) 43.091 kg 43.091 kg Intake: Tube Feeding 720 650 Other 400 Other: # Voids 3 2 Weight Source Bedscale Bedscale Active Medications: Current Medications Acetaminophen (Tylenol) 650 mg GT Q6H PRN PRN Reason: mild pain Stop: 04/17/19 18:42 Last Admin: 03/03/19 21:19 Dose: 650 mg Al Hydrox/Mg Hydrox/Simethicone (Maalox) 30 ml GT Q6HR PRN PRN Reason: GI DISTRESS Stop: 04/17/19 18:42 Albuterol Sulfate (Albuterol 2.5mg/3ml Neb Ud) 2.5 mg HHN Q2HR PRN PRN Reason: Shortness of Breath Stop: 04/17/19 18:42 Albuterol Sulfate (Albuterol 2.5mg/3ml Neb Ud) 2.5 mg HHN [id number] MADHURI Stop: 04/17/19 18:59 Last Admin: 03/10/19 11:07 Dose: 2.5 mg Ascorbic Acid (Vitamin C) 500 mg GT Q12HR MADHURI Stop: 04/17/19 20:59 Last Admin: 03/10/19 10:18 Dose: 500 mg Bisacodyl (Dulcolax 10 Mg Supp) 10 mg RC DAILY PRN PRN Reason: Constipation Stop: 04/17/19 20:14 Budesonide (Pulmicort) 0.5 mg HHN BIDRT MADHURI Stop: 04/18/19 06:59 Last Admin: 03/10/19 07:03 Dose: 0.5 mg Carvedilol (Coreg) 6.25 mg GT Q12H MADHURI Stop: 04/17/19 21:59 Last Admin: 03/10/19 10:19 Dose: 6.25 mg [place] Oil/[place] Balsam/Trypsin (Venelex) 1 appl TP DAILY MADHURI Stop: 04/18/19 08:59 Last Admin: 03/09/19 09:27 Dose: 1 appl Docusate Sodium (Colace) 200 mg GT Q12H PRN PRN Reason: Constipation Stop: 04/17/19 20:14 Last Admin: 03/10/19 10:19 Dose: 200 mg Enalapril Maleate (Vasotec) 2.5 mg PO BID MADHURI Stop: 04/26/19 12:24 Last Admin: 03/10/19 10:18 Dose: 2.5 mg Glucagon (Glucagen) 1 mg IM PRN PRN PRN Reason: Blood Glucose less than 70 Stop: 04/17/19 20:14 Last Admin: 02/28/19 21:12 Dose: 1 mg Lactobacillus Rhamnosus (Culturelle 15b) 1 each GT DAILY MADHURI Stop: 04/18/19 08:59 Last Admin: 03/10/19 10:18 Dose: 1 each Lorazepam (Ativan) 1 mg IM Q6HR PRN; Protocol PRN Reason: Agitation Stop: 04/17/19 02:49 Last Admin: 03/05/19 11:37 Dose: 1 mg Lorazepam (Ativan) 0.5 mg PO Q4HR PRN; Protocol PRN Reason: Agitation Stop: 05/04/19 12:08 Magnesium Hydroxide (Milk Of Magnesia) 30 ml GT HS PRN PRN Reason: Constipation Stop: 04/17/19 18:42 Magnesium Oxide (Mag-Oxide) 400 mg GT BID MADHURI Stop: 04/18/19 08:59 Last Admin: 03/10/19 10:19 Dose: 400 mg Mirtazapine (Remeron) 7.5 mg PO HS MADHURI; Protocol Stop: 05/04/19 20:59 Last Admin: 03/09/19 21:23 Dose: 7.5 mg Ondansetron HCl (Zofran) 4 mg IV Q6H PRN PRN Reason: Nausea / Vomiting Stop: 04/28/19 06:20 Sodium Phosphate (Fleet Enema) 135 ml RC Q48HR PRN PRN Reason: Constipation Stop: 04/17/19 20:14 Physical Exam: 58 y/o female patient has swelling of of the left upper extremity. General: weak, demented HEENT: NC/AT, PERRLA Neck: Supple, No JVD Lungs: CTAB Cardiovascular: RRR, Normal S1 Abdomen: soft, non-tender Extremities: edema Neurological: no change, unable to follow command, other - Procedures Procedures: Procedures Procedure Code Date INSERTION OF FEEDING DEVICE INTO STOMACH, PERC APPROACH [id number] 01/02/19 INSERTION OF INFUSION DEVICE INTO R LOW ARM, PERC APPROACH [id number] 01/02/19 INTRODUCTION OF NUTRITIONAL INTO PERIPH VEIN, PERC APPROACH [id number] 01/02/19 RESPIRATORY VENTILATION, LESS THAN 24 CONSECUTIVE HOURS [id number] 04/07/18 Internal Medicine Assmt/Plan - Assessment Assessment: Edema of Left upper extremity Hypertension. MRSA sepsis, treated Diskitis. Osteomyelitis of lumbar spine Anemia. Protein Malnutrition. S/p Deccanulation. S/p Percutaneous Endoscopic gastrostomy. Less agitated Dementia Psychosis Chronic Copd Protein-calorie malnutrition Failure to thrive - Plan Plan: Continuation of care Continue present meds as directed Monitor Pain Psych followup Monitor Vitals, Labs and Pain management Fall precaution Continue present care management Nutritional Asmnt/Malnutr-PDOC - Dietary Evaluation Malnutrition Findings (Please click <Entered> for more info): Nutritional Asmnt/Malnutrition Start: 02/17/19 17: 23 Text: Status: Complete Freq: Protocol: Document 02/17/19 17:23 LCHENG (Rec: 02/17/19 17:28 [email or web address]) Nutritional Asmnt/Malnutrition Patient General Information Nutritional Screening High Risk Consult Diagnosis osteomyelitis, central line placement Pertinent Medical Hx/Surgical Hx HTN, asthma/COPD, PUD/GERd, osteomylitis, anemia, PEG/ Gtube, schizophrenia, bipolar Subjective Information Consult received for ricky 12 and open wound. Pt seen resting in bed at time of visit. TF off at this time. Current Diet Order/ Nutrition Support Glucerna 1.2 at 60ml/hr x 20hr Pertinent Medications vit C, colace, heperin, humalog, culturelle, mag-oxide , vancomycin Pertinent Labs 02/17 K 3.4, Cr 0.5, glucose 94 Nutritional Hx/Data Height 1.65 m Height (Calculated Centimeters) 165.1 Current Weight (lbs) 36.741 kg Weight (Calculated Kilograms) 36.7 Weight (Calculated Grams) 27467.0 [place] Body Weight 125 Body Mass Index (BMI) 13.4 Weight Status Underweight GI Symptoms GI Symptoms None Last BM none Difficult in: None Skin Integrity/Comment: left foot and bilat arms bruises pressure area Complex - Includes bone to sacrum, skin tear to right foot ricky 12 Estimated Nutritional Goals Calories/Kcals/Kg 25-30 Kcals Calculated 2933-5791 Protein g/k.2-1.4 Protein Calculated 68-80 Fluid: ml 1425-1710ml (1ml/kcal) Nutritional Problem 1. Problem Problem increased nutrition needs Etiology impaired skin integrity Signs/Symptoms: open wound to sacrum Intervention/Recommendation Comments 1. Continue with current TF regimen with Glucerna 1.2 at 60ml/hr x 20hr. It provides 1440kcal, 72g protein, 966ml free water, meeting 100% of nutritional needs. Add Sadi BID for wound healing. 2. Monitor TF rate, tolerance, wt, skin integrity and labs 3. F/U as high risk in 2-3 days Expected Outcomes/Goals Expected Outcomes/Goals 1. Pt to meet at least 90% of nutritional needs via nutrition support with tolerance 2. Wt stability, skin to remain intact, labs to approach WNL.
--- NOTE | 2019-03-10 12:20 | General Progress Note ---
Subjective - Review of Systems Service Date: 03/10/19 Subjective: Patient exam aimed discussed with the nurse chart reviewed patient's clinically unchanged Patient has swelling of the left upper extremity patient's IV site infiltrated in the same arm DVT Objective - Results Result Diagrams: 03/06/19 06:10 03/06/19 06:10 Recent Labs: Laboratory Last Values WBC 5.9 Th/cmm (4.8-10.8) 03/06/19 06:10 RBC 3.88 Mil/cmm (3.80-5.10) 03/06/19 06:10 Hgb 12.5 gm/dL (12-16) 03/06/19 06:10 Hct 37.2 % (41.0-60) L 03/06/19 06:10 MCV 95.7 fl (81-100) 03/06/19 06:10 MCH 32.1 pg (27.0-31.0) H 03/06/19 06:10 MCHC Differential 33.5 pg (28.0-36.0) 03/06/19 06:10 RDW 13.1 % (11.5-20.0) 03/06/19 06:10 Plt Count 266 Th/cmm (150-400) 03/06/19 06:10 MPV 7.5 fl 03/06/19 06:10 Neutrophils % 72.3 % (40.0-80.0) 03/06/19 06:10 Lymphocytes % 16.1 % (20.0-50.0) L 03/06/19 06:10 Monocytes % 8.6 % (2.0-10.0) 03/06/19 06:10 Eosinophils % 2.4 % (0.0-5.0) 03/06/19 06:10 Basophils % 0.6 % (0.0-2.0) 03/06/19 06:10 PT 11.6 SECONDS (9.5-11.5) H 02/15/19 23:40 INR 1.13 (0.5-1.4) 02/15/19 23:40 PTT (Actin FS) 44.0 SECONDS (26.0-38.0) H 02/15/19 23:40 Sodium 143 mEq/L (136-145) 03/06/19 06:10 Potassium 3.5 mEq/L (3.5-5.1) 03/06/19 06:10 Chloride 103 mEq/L (98-107) 03/06/19 06:10 Carbon Dioxide 31.4 mEq/L (21.0-31.0) H 03/06/19 06:10 Anion Gap 12.1 (7.0-16.0) 03/06/19 06:10 BUN 29 mg/dL (7-25) H 03/06/19 06:10 Creatinine 0.5 mg/dL (0.6-1.2) L 03/06/19 06:10 Est GFR ( Amer) > 60.0 ml/min (>90) 03/06/19 06:10 Est GFR (Non-Af Amer) > 60.0 ml/min 03/06/19 06:10 BUN/Creatinine Ratio 58.0 03/06/19 06:10 Glucose 101 mg/dL (70-105) 03/06/19 06:10 POC Glucose 105 MG/DL (70 - 105) 03/04/19 09:16 Whole Bld Lactic Acid 0.56 mmol/L (0.60-1.99) L 02/16/19 00:00 Calcium 9.6 mg/dL (8.6-10.3) 03/06/19 06:10 Total Bilirubin 0.5 mg/dL (0.3-1.0) 03/06/19 06:10 AST 28 U/L (13-39) 03/06/19 06:10 ALT 40 U/L (7-52) 03/06/19 06:10 Alkaline Phosphatase 110 U/L (34-104) H 03/06/19 06:10 Troponin I 0.01 ng/mL (0.01-0.05) 02/15/19 23:40 Total Protein 6.9 gm/dL (6.0-8.3) 03/06/19 06:10 Albumin 3.5 gm/dL (3.7-5.3) L 03/06/19 06:10 Globulin 3.4 gm/dL 03/06/19 06:10 Albumin/Globulin Ratio 1.0 (1.0-1.8) 03/06/19 06:10 TSH 4.06 uIU/ml (0.34-5.60) 02/15/19 23:40 Vancomycin Trough 17.7 ug/mL (5-10) H 03/02/19 10:00 Random Vancomycin 4.7 ug/mL (5.0-40.0) L 02/16/19 21:15 - Physical Exam Vitals and I&O: Vital Signs Temp 97.7 F 03/10/19 11:43 Pulse 62 03/10/19 11:43 Resp 18 03/10/19 11:43 BP 138/89 03/10/19 11:43 Pulse Ox 97 03/10/19 11:43 Intake & Output 03/09/19 03/10/19 03/10/19 18:59 06:59 18:59 Intake Total 1120 650 Balance 1120 650 Weight (lbs) 43.091 kg 43.091 kg Intake: Tube Feeding 720 650 Other 400 Other: # Voids 3 2 Weight Source Bedscale Bedscale Active Medications: Current Medications Acetaminophen (Tylenol) 650 mg GT Q6H PRN PRN Reason: mild pain Stop: 04/17/19 18:42 Last Admin: 03/03/19 21:19 Dose: 650 mg Al Hydrox/Mg Hydrox/Simethicone (Maalox) 30 ml GT Q6HR PRN PRN Reason: GI DISTRESS Stop: 04/17/19 18:42 Albuterol Sulfate (Albuterol 2.5mg/3ml Neb Ud) 2.5 mg HHN Q2HR PRN PRN Reason: Shortness of Breath Stop: 04/17/19 18:42 Albuterol Sulfate (Albuterol 2.5mg/3ml Neb Ud) 2.5 mg HHN [id number] [facility] Stop: 04/17/19 18:59 Last Admin: 03/10/19 11:07 Dose: 2.5 mg Ascorbic Acid (Vitamin C) 500 mg GT Q12HR MADHURI Stop: 04/17/19 20:59 Last Admin: 03/10/19 10:18 Dose: 500 mg Bisacodyl (Dulcolax 10 Mg Supp) 10 mg RC DAILY PRN PRN Reason: Constipation Stop: 04/17/19 20:14 Budesonide (Pulmicort) 0.5 mg HHN BIDRT MADHURI Stop: 04/18/19 06:59 Last Admin: 03/10/19 07:03 Dose: 0.5 mg Carvedilol (Coreg) 6.25 mg GT Q12H MADHURI Stop: 04/17/19 21:59 Last Admin: 03/10/19 10:19 Dose: 6.25 mg [place] Oil/[place] Balsam/Trypsin (Venelex) 1 appl TP DAILY MADHURI Stop: 04/18/19 08:59 Last Admin: 03/09/19 09:27 Dose: 1 appl Docusate Sodium (Colace) 200 mg GT Q12H PRN PRN Reason: Constipation Stop: 04/17/19 20:14 Last Admin: 03/10/19 10:19 Dose: 200 mg Enalapril Maleate (Vasotec) 2.5 mg PO BID MADHURI Stop: 04/26/19 12:24 Last Admin: 03/10/19 10:18 Dose: 2.5 mg Glucagon (Glucagen) 1 mg IM PRN PRN PRN Reason: Blood Glucose less than 70 Stop: 04/17/19 20:14 Last Admin: 02/28/19 21:12 Dose: 1 mg Lactobacillus Rhamnosus (Culturelle 15b) 1 each GT DAILY MADHURI Stop: 04/18/19 08:59 Last Admin: 03/10/19 10:18 Dose: 1 each Lorazepam (Ativan) 1 mg IM Q6HR PRN; Protocol PRN Reason: Agitation Stop: 04/17/19 02:49 Last Admin: 03/05/19 11:37 Dose: 1 mg Lorazepam (Ativan) 0.5 mg PO Q4HR PRN; Protocol PRN Reason: Agitation Stop: 05/04/19 12:08 Magnesium Hydroxide (Milk Of Magnesia) 30 ml GT HS PRN PRN Reason: Constipation Stop: 04/17/19 18:42 Magnesium Oxide (Mag-Oxide) 400 mg GT BID MADHURI Stop: 04/18/19 08:59 Last Admin: 03/10/19 10:19 Dose: 400 mg Mirtazapine (Remeron) 7.5 mg PO HS MADHURI; Protocol Stop: 05/04/19 20:59 Last Admin: 03/09/19 21:23 Dose: 7.5 mg Ondansetron HCl (Zofran) 4 mg IV Q6H PRN PRN Reason: Nausea / Vomiting Stop: 04/28/19 06:20 Sodium Phosphate (Fleet Enema) 135 ml RC Q48HR PRN PRN Reason: Constipation Stop: 04/17/19 20:14 General: No acute distress HEENT: Mucous membr. moist/pink Neck: Supple, JVD, +2 carotid pulse wo bruit (flat) Cardiovascular: Regular rate, Normal S1, Normal S2, Systolic murmurs Lungs: Clear to auscultation, Normal air movement Abdomen: Bowel sounds, Soft, Other (G-tube) - Procedures Procedures: Procedures Procedure Code Date INSERTION OF FEEDING DEVICE INTO STOMACH, PERC APPROACH [id number] 01/02/19 INSERTION OF INFUSION DEVICE INTO R LOW ARM, PERC APPROACH [id number] 01/02/19 INTRODUCTION OF NUTRITIONAL INTO PERIPH VEIN, PERC APPROACH [id number] 01/02/19 RESPIRATORY VENTILATION, LESS THAN 24 CONSECUTIVE HOURS [id number] 04/07/18 Assessment/Plan - Assessment Assessment: Uncontrolled hypertension MRSA sepsis Osteomyelitis of the lumbosacral spine Discitis lumbosacral spine Dementia Dysphagia with PEG placement Protein calorie malnutrition Psychosis COPD DVT upper extremity - Plan Plan: Continue antihypertensive treatment continue antibiotics Venous duplex study Nutritional Asmnt/Malnutr-PDOC - Dietary Evaluation Malnutrition Findings (Please click <Entered> for more info): Nutritional Asmnt/Malnutrition Start: 02/17/19 17: 23 Text: Status: Complete Freq: Protocol: Document 02/17/19 17:23 LCHENG (Rec: 02/17/19 17:28 [email or web address] [email or web address]) Nutritional Asmnt/Malnutrition Patient General Information Nutritional Screening High Risk Consult Diagnosis osteomyelitis, central line placement Pertinent Medical Hx/Surgical Hx HTN, asthma/COPD, PUD/GERd, osteomylitis, anemia, PEG/ Gtube, schizophrenia, bipolar Subjective Information Consult received for ricky 12 and open wound. Pt seen resting in bed at time of visit. TF off at this time. Current Diet Order/ Nutrition Support Glucerna 1.2 at 60ml/hr x 20hr Pertinent Medications vit C, colace, heperin, humalog, culturelle, mag-oxide , vancomycin Pertinent Labs 02/17 K 3.4, Cr 0.5, glucose 94 Nutritional Hx/Data Height 1.65 m Height (Calculated Centimeters) 165.1 Current Weight (lbs) 36.741 kg Weight (Calculated Kilograms) 36.7 Weight (Calculated Grams) 68497.0 [place] Body Weight 125 Body Mass Index (BMI) 13.4 Weight Status Underweight GI Symptoms GI Symptoms None Last BM none Difficult in: None Skin Integrity/Comment: left foot and bilat arms bruises pressure area Complex - Includes bone to sacrum, skin tear to right foot ricky 12 Estimated Nutritional Goals Calories/Kcals/Kg 25-30 Kcals Calculated 8436-0595 Protein g/k.2-1.4 Protein Calculated 68-80 Fluid: ml 1425-1710ml (1ml/kcal) Nutritional Problem 1. Problem Problem increased nutrition needs Etiology impaired skin integrity Signs/Symptoms: open wound to sacrum Intervention/Recommendation Comments 1. Continue with current TF regimen with Glucerna 1.2 at 60ml/hr x 20hr. It provides 1440kcal, 72g protein, 966ml free water, meeting 100% of nutritional needs. Add Sadi BID for wound healing. 2. Monitor TF rate, tolerance, wt, skin integrity and labs 3. F/U as high risk in 2-3 days Expected Outcomes/Goals Expected Outcomes/Goals 1. Pt to meet at least 90% of nutritional needs via nutrition support with tolerance 2. Wt stability, skin to remain intact, labs to approach WNL.
[2019-03-10] MEDS: Venelex 60gm Tube TP SCH (17:49)
--- NOTE | 2019-03-11 01:14 | Progress Notes ---
DATE: 03/10/2019 SUMMARY: Case was discussed with staff of the patient and reviewed treatment plans and goals. The patient continues to be nonverbal. She is calm in general. She is sleeping better. She has a G-tube. She continues to be unable to participate in a meaningful conversation. She tolerated the Remeron with no side effects, no sedation, no nausea, and no acting out behavior. Thank you very much for allowing me to participate in the care of this most interesting lady. JOB# [id number]
[2019-03-11] MEDS: Albuterol Nebulizer 2.5mg/3mL HHN SCH ×4 (07:10→19:19)
[2019-03-11] MEDS: Budesonide 0.5 Mg/2 mL Ud HHN SCH ×2 (07:10→19:22)
[2019-03-11] MEDS: Lactobacillus Rhamnosus GG 15 Billion CFU CAP.SPRINK GT SCH (10:21)
[2019-03-11] MEDS: Docusate Sodium 100 mg/10 mL UD GT PRN (10:21)
[2019-03-11] MEDS: Multivitamin w/ Minerals Tab GT SCH (10:25)
--- NOTE | 2019-03-11 12:15 | General Progress Note ---
Subjective - Review of Systems Service Date: 03/11/19 Subjective: Patient exam aimed discussed with the nurse chart reviewed patient's clinically unchanged Patient has swelling of the left upper extremity patient's IV site infiltrated in the same arm DVT Objective - Results Result Diagrams: 03/06/19 06:10 03/06/19 06:10 Recent Labs: Laboratory Last Values WBC 5.9 Th/cmm (4.8-10.8) 03/06/19 06:10 RBC 3.88 Mil/cmm (3.80-5.10) 03/06/19 06:10 Hgb 12.5 gm/dL (12-16) 03/06/19 06:10 Hct 37.2 % (41.0-60) L 03/06/19 06:10 MCV 95.7 fl (81-100) 03/06/19 06:10 MCH 32.1 pg (27.0-31.0) H 03/06/19 06:10 MCHC Differential 33.5 pg (28.0-36.0) 03/06/19 06:10 RDW 13.1 % (11.5-20.0) 03/06/19 06:10 Plt Count 266 Th/cmm (150-400) 03/06/19 06:10 MPV 7.5 fl 03/06/19 06:10 Neutrophils % 72.3 % (40.0-80.0) 03/06/19 06:10 Lymphocytes % 16.1 % (20.0-50.0) L 03/06/19 06:10 Monocytes % 8.6 % (2.0-10.0) 03/06/19 06:10 Eosinophils % 2.4 % (0.0-5.0) 03/06/19 06:10 Basophils % 0.6 % (0.0-2.0) 03/06/19 06:10 PT 11.6 SECONDS (9.5-11.5) H 02/15/19 23:40 INR 1.13 (0.5-1.4) 02/15/19 23:40 PTT (Actin FS) 44.0 SECONDS (26.0-38.0) H 02/15/19 23:40 Sodium 143 mEq/L (136-145) 03/06/19 06:10 Potassium 3.5 mEq/L (3.5-5.1) 03/06/19 06:10 Chloride 103 mEq/L (98-107) 03/06/19 06:10 Carbon Dioxide 31.4 mEq/L (21.0-31.0) H 03/06/19 06:10 Anion Gap 12.1 (7.0-16.0) 03/06/19 06:10 BUN 29 mg/dL (7-25) H 03/06/19 06:10 Creatinine 0.5 mg/dL (0.6-1.2) L 03/06/19 06:10 Est GFR ( Amer) > 60.0 ml/min (>90) 03/06/19 06:10 Est GFR (Non-Af Amer) > 60.0 ml/min 03/06/19 06:10 BUN/Creatinine Ratio 58.0 03/06/19 06:10 Glucose 101 mg/dL (70-105) 03/06/19 06:10 POC Glucose 105 MG/DL (70 - 105) 03/04/19 09:16 Whole Bld Lactic Acid 0.56 mmol/L (0.60-1.99) L 02/16/19 00:00 Calcium 9.6 mg/dL (8.6-10.3) 03/06/19 06:10 Total Bilirubin 0.5 mg/dL (0.3-1.0) 03/06/19 06:10 AST 28 U/L (13-39) 03/06/19 06:10 ALT 40 U/L (7-52) 03/06/19 06:10 Alkaline Phosphatase 110 U/L (34-104) H 03/06/19 06:10 Troponin I 0.01 ng/mL (0.01-0.05) 02/15/19 23:40 Total Protein 6.9 gm/dL (6.0-8.3) 03/06/19 06:10 Albumin 3.5 gm/dL (3.7-5.3) L 03/06/19 06:10 Globulin 3.4 gm/dL 03/06/19 06:10 Albumin/Globulin Ratio 1.0 (1.0-1.8) 03/06/19 06:10 TSH 4.06 uIU/ml (0.34-5.60) 02/15/19 23:40 Vancomycin Trough 17.7 ug/mL (5-10) H 03/02/19 10:00 Random Vancomycin 4.7 ug/mL (5.0-40.0) L 02/16/19 21:15 - Physical Exam Vitals and I&O: Vital Signs Temp 97.8 F 03/11/19 12:00 Pulse 61 03/11/19 12:00 Resp 18 03/11/19 12:00 BP 138/86 03/11/19 12:00 Pulse Ox 92 03/11/19 12:00 Intake & Output 03/10/19 03/11/19 03/11/19 18:59 06:59 18:59 Intake Total 720 Balance 720 Weight (lbs) 43.091 kg Intake: Tube Feeding 720 Other: # Voids 4 # Bowel Movements 1 Weight Source Bedscale Active Medications: Current Medications Acetaminophen (Tylenol) 650 mg GT Q6H PRN PRN Reason: mild pain Stop: 04/17/19 18:42 Last Admin: 03/03/19 21:19 Dose: 650 mg Al Hydrox/Mg Hydrox/Simethicone (Maalox) 30 ml GT Q6HR PRN PRN Reason: GI DISTRESS Stop: 04/17/19 18:42 Albuterol Sulfate (Albuterol 2.5mg/3ml Neb Ud) 2.5 mg HHN Q2HR PRN PRN Reason: Shortness of Breath Stop: 04/17/19 18:42 Albuterol Sulfate (Albuterol 2.5mg/3ml Neb Ud) 2.5 mg HHN [id number] [facility] Stop: 04/17/19 18:59 Last Admin: 03/11/19 11:08 Dose: 2.5 mg Ascorbic Acid (Vitamin C) 500 mg GT Q12HR MADHURI Stop: 04/17/19 20:59 Last Admin: 03/11/19 10:21 Dose: 500 mg Bisacodyl (Dulcolax 10 Mg Supp) 10 mg RC DAILY PRN PRN Reason: Constipation Stop: 04/17/19 20:14 Budesonide (Pulmicort) 0.5 mg HHN BIDRT MADHURI Stop: 04/18/19 06:59 Last Admin: 03/11/19 07:10 Dose: 0.5 mg Carvedilol (Coreg) 6.25 mg GT Q12H MADHURI Stop: 04/17/19 21:59 Last Admin: 03/11/19 10:20 Dose: Not Given [place] Oil/[place] Balsam/Trypsin (Venelex) 1 appl TP DAILY MADHURI Stop: 04/18/19 08:59 Last Admin: 03/10/19 17:49 Dose: Not Given Docusate Sodium (Colace) 200 mg GT Q12H PRN PRN Reason: Constipation Stop: 04/17/19 20:14 Last Admin: 03/11/19 10:21 Dose: 200 mg Enalapril Maleate (Vasotec) 2.5 mg PO BID MADHURI Stop: 04/26/19 12:24 Last Admin: 03/11/19 10:21 Dose: 2.5 mg Glucagon (Glucagen) 1 mg IM PRN PRN PRN Reason: Blood Glucose less than 70 Stop: 04/17/19 20:14 Last Admin: 02/28/19 21:12 Dose: 1 mg Lactobacillus Rhamnosus (Culturelle 15b) 1 each GT DAILY MADHURI Stop: 04/18/19 08:59 Last Admin: 03/11/19 10:21 Dose: 1 each Lorazepam (Ativan) 1 mg IM Q6HR PRN; Protocol PRN Reason: Agitation Stop: 04/17/19 02:49 Last Admin: 03/05/19 11:37 Dose: 1 mg Lorazepam (Ativan) 0.5 mg PO Q4HR PRN; Protocol PRN Reason: Agitation Stop: 05/04/19 12:08 Magnesium Hydroxide (Milk Of Magnesia) 30 ml GT HS PRN PRN Reason: Constipation Stop: 04/17/19 18:42 Magnesium Oxide (Mag-Oxide) 400 mg GT BID MADHURI Stop: 04/18/19 08:59 Last Admin: 03/11/19 10:21 Dose: 400 mg Mirtazapine (Remeron) 7.5 mg PO HS MADHURI; Protocol Stop: 05/04/19 20:59 Last Admin: 03/10/19 20:38 Dose: 7.5 mg Ondansetron HCl (Zofran) 4 mg IV Q6H PRN PRN Reason: Nausea / Vomiting Stop: 04/28/19 06:20 Sodium Phosphate (Fleet Enema) 135 ml RC Q48HR PRN PRN Reason: Constipation Stop: 04/17/19 20:14 General: No acute distress HEENT: Mucous membr. moist/pink Neck: Supple, JVD, +2 carotid pulse wo bruit (flat) Cardiovascular: Regular rate, Normal S1, Normal S2, Systolic murmurs Lungs: Clear to auscultation, Normal air movement Abdomen: Bowel sounds, Soft, Other (G-tube) - Procedures Procedures: Procedures Procedure Code Date INSERTION OF FEEDING DEVICE INTO STOMACH, PERC APPROACH [id number] 01/02/19 INSERTION OF INFUSION DEVICE INTO R LOW ARM, PERC APPROACH [id number] 01/02/19 INTRODUCTION OF NUTRITIONAL INTO PERIPH VEIN, PERC APPROACH [id number] 01/02/19 RESPIRATORY VENTILATION, LESS THAN 24 CONSECUTIVE HOURS [id number] 04/07/18 Assessment/Plan - Assessment Assessment: Uncontrolled hypertension MRSA sepsis Osteomyelitis of the lumbosacral spine Discitis lumbosacral spine Dementia Dysphagia with PEG placement Protein calorie malnutrition Psychosis COPD DVT upper extremity - Plan Plan: Continue antihypertensive treatment continue antibiotics Venous duplex study Nutritional Asmnt/Malnutr-PDOC - Dietary Evaluation Malnutrition Findings (Please click <Entered> for more info): Nutritional Asmnt/Malnutrition Start: 02/17/19 17: 23 Text: Status: Complete Freq: Protocol: Document 02/17/19 17:23 LCHENG (Rec: 02/17/19 17:28 LCHENG [email or web address]) Nutritional Asmnt/Malnutrition Patient General Information Nutritional Screening High Risk Consult Diagnosis osteomyelitis, central line placement Pertinent Medical Hx/Surgical Hx HTN, asthma/COPD, PUD/GERd, osteomylitis, anemia, PEG/ Gtube, schizophrenia, bipolar Subjective Information Consult received for ricky 12 and open wound. Pt seen resting in bed at time of visit. TF off at this time. Current Diet Order/ Nutrition Support Glucerna 1.2 at 60ml/hr x 20hr Pertinent Medications vit C, colace, heperin, humalog, culturelle, mag-oxide , vancomycin Pertinent Labs 02/17 K 3.4, Cr 0.5, glucose 94 Nutritional Hx/Data Height 1.65 m Height (Calculated Centimeters) 165.1 Current Weight (lbs) 36.741 kg Weight (Calculated Kilograms) 36.7 Weight (Calculated Grams) 47149.0 [place] Body Weight 125 Body Mass Index (BMI) 13.4 Weight Status Underweight GI Symptoms GI Symptoms None Last BM none Difficult in: None Skin Integrity/Comment: left foot and bilat arms bruises pressure area Complex - Includes bone to sacrum, skin tear to right foot ricky 12 Estimated Nutritional Goals Calories/Kcals/Kg 25-30 Kcals Calculated 3889-8984 Protein g/k.2-1.4 Protein Calculated 68-80 Fluid: ml 1425-1710ml (1ml/kcal) Nutritional Problem 1. Problem Problem increased nutrition needs Etiology impaired skin integrity Signs/Symptoms: open wound to sacrum Intervention/Recommendation Comments 1. Continue with current TF regimen with Glucerna 1.2 at 60ml/hr x 20hr. It provides 1440kcal, 72g protein, 966ml free water, meeting 100% of nutritional needs. Add Sadi BID for wound healing. 2. Monitor TF rate, tolerance, wt, skin integrity and labs 3. F/U as high risk in 2-3 days Expected Outcomes/Goals Expected Outcomes/Goals 1. Pt to meet at least 90% of nutritional needs via nutrition support with tolerance 2. Wt stability, skin to remain intact, labs to approach WNL.
--- NOTE | 2019-03-11 13:05 | Progress Notes ---
DATE: 03/11/2019 SUBJECTIVE: Case was discussed with staff of the patient, reviewed records. The patient is nonverbal. She continues to have ____. She is redirectable. No acting out behavior, sleeping better, eating better. No side effects of her medications. No sedation, no nausea. Thank you very much for allowing me to participate in the care of this most interesting lady. [facility]# [id number]
[2019-03-11] MEDS: Venelex 60gm Tube TP SCH (17:38)
--- NOTE | 2019-03-11 23:12 | Internal Medicine Prog Note ---
Internal Medicine Subjective - Subjective Patient is:: awake, interactive, confused, other (swelling of the left upper extremity ) Patient Complaints of:: other (Hx of copd.) Per staff patient has:: no adverse event, no episodes of fall Internal Medicine Objective - Results Result Diagrams: 03/06/19 06:10 03/06/19 06:10 Recent Labs: Laboratory Last Values WBC 5.9 Th/cmm (4.8-10.8) 03/06/19 06:10 RBC 3.88 Mil/cmm (3.80-5.10) 03/06/19 06:10 Hgb 12.5 gm/dL (12-16) 03/06/19 06:10 Hct 37.2 % (41.0-60) L 03/06/19 06:10 MCV 95.7 fl (81-100) 03/06/19 06:10 MCH 32.1 pg (27.0-31.0) H 03/06/19 06:10 MCHC Differential 33.5 pg (28.0-36.0) 03/06/19 06:10 RDW 13.1 % (11.5-20.0) 03/06/19 06:10 Plt Count 266 Th/cmm (150-400) 03/06/19 06:10 MPV 7.5 fl 03/06/19 06:10 Neutrophils % 72.3 % (40.0-80.0) 03/06/19 06:10 Lymphocytes % 16.1 % (20.0-50.0) L 03/06/19 06:10 Monocytes % 8.6 % (2.0-10.0) 03/06/19 06:10 Eosinophils % 2.4 % (0.0-5.0) 03/06/19 06:10 Basophils % 0.6 % (0.0-2.0) 03/06/19 06:10 PT 11.6 SECONDS (9.5-11.5) H 02/15/19 23:40 INR 1.13 (0.5-1.4) 02/15/19 23:40 PTT (Actin FS) 44.0 SECONDS (26.0-38.0) H 02/15/19 23:40 Sodium 143 mEq/L (136-145) 03/06/19 06:10 Potassium 3.5 mEq/L (3.5-5.1) 03/06/19 06:10 Chloride 103 mEq/L (98-107) 03/06/19 06:10 Carbon Dioxide 31.4 mEq/L (21.0-31.0) H 03/06/19 06:10 Anion Gap 12.1 (7.0-16.0) 03/06/19 06:10 BUN 29 mg/dL (7-25) H 03/06/19 06:10 Creatinine 0.5 mg/dL (0.6-1.2) L 03/06/19 06:10 Est GFR ( Amer) > 60.0 ml/min (>90) 03/06/19 06:10 Est GFR (Non-Af Amer) > 60.0 ml/min 03/06/19 06:10 BUN/Creatinine Ratio 58.0 03/06/19 06:10 Glucose 101 mg/dL (70-105) 03/06/19 06:10 POC Glucose 105 MG/DL (70 - 105) 03/04/19 09:16 Whole Bld Lactic Acid 0.56 mmol/L (0.60-1.99) L 02/16/19 00:00 Calcium 9.6 mg/dL (8.6-10.3) 03/06/19 06:10 Total Bilirubin 0.5 mg/dL (0.3-1.0) 03/06/19 06:10 AST 28 U/L (13-39) 03/06/19 06:10 ALT 40 U/L (7-52) 03/06/19 06:10 Alkaline Phosphatase 110 U/L (34-104) H 03/06/19 06:10 Troponin I 0.01 ng/mL (0.01-0.05) 02/15/19 23:40 Total Protein 6.9 gm/dL (6.0-8.3) 03/06/19 06:10 Albumin 3.5 gm/dL (3.7-5.3) L 03/06/19 06:10 Globulin 3.4 gm/dL 03/06/19 06:10 Albumin/Globulin Ratio 1.0 (1.0-1.8) 03/06/19 06:10 TSH 4.06 uIU/ml (0.34-5.60) 02/15/19 23:40 Vancomycin Trough 17.7 ug/mL (5-10) H 03/02/19 10:00 Random Vancomycin 4.7 ug/mL (5.0-40.0) L 02/16/19 21:15 - Physical Exam Vitals and I&O: Vital Signs Temp 98.4 F 03/11/19 20:00 Pulse 66 03/11/19 21:10 Resp 19 03/11/19 20:00 BP 138/86 03/11/19 21:10 Pulse Ox 97 03/11/19 20:00 Intake & Output 03/11/19 03/11/19 03/12/19 06:59 18:59 06:59 Intake Total 720 Balance 720 Weight (lbs) 43.091 kg Intake: Tube Feeding 720 Other: # Voids 4 # Bowel Movements 1 Weight Source Bedscale Active Medications: Current Medications Acetaminophen (Tylenol) 650 mg GT Q6H PRN PRN Reason: mild pain Stop: 04/17/19 18:42 Last Admin: 03/03/19 21:19 Dose: 650 mg Al Hydrox/Mg Hydrox/Simethicone (Maalox) 30 ml GT Q6HR PRN PRN Reason: GI DISTRESS Stop: 04/17/19 18:42 Albuterol Sulfate (Albuterol 2.5mg/3ml Neb Ud) 2.5 mg HHN Q2HR PRN PRN Reason: Shortness of Breath Stop: 04/17/19 18:42 Albuterol Sulfate (Albuterol 2.5mg/3ml Neb Ud) 2.5 mg HHN [id number] [facility] Stop: 04/17/19 18:59 Last Admin: 03/11/19 19:19 Dose: 2.5 mg Ascorbic Acid (Vitamin C) 500 mg GT Q12HR MADHURI Stop: 04/17/19 20:59 Last Admin: 03/11/19 21:09 Dose: 500 mg Bisacodyl (Dulcolax 10 Mg Supp) 10 mg RC DAILY PRN PRN Reason: Constipation Stop: 04/17/19 20:14 Budesonide (Pulmicort) 0.5 mg HHN BIDRT MADHURI Stop: 04/18/19 06:59 Last Admin: 03/11/19 19:22 Dose: 0.5 mg Carvedilol (Coreg) 6.25 mg GT Q12H MADHURI Stop: 04/17/19 21:59 Last Admin: 03/11/19 21:10 Dose: 6.25 mg [place] Oil/[place] Balsam/Trypsin (Venelex) 1 appl TP DAILY MADHURI Stop: 04/18/19 08:59 Last Admin: 03/11/19 17:38 Dose: 1 appl Docusate Sodium (Colace) 200 mg GT Q12H PRN PRN Reason: Constipation Stop: 04/17/19 20:14 Last Admin: 03/11/19 10:21 Dose: 200 mg Enalapril Maleate (Vasotec) 2.5 mg PO BID MADHURI Stop: 04/26/19 12:24 Last Admin: 03/11/19 17:37 Dose: 2.5 mg Glucagon (Glucagen) 1 mg IM PRN PRN PRN Reason: Blood Glucose less than 70 Stop: 04/17/19 20:14 Last Admin: 02/28/19 21:12 Dose: 1 mg Lactobacillus Rhamnosus (Culturelle 15b) 1 each GT DAILY MADHURI Stop: 04/18/19 08:59 Last Admin: 03/11/19 10:21 Dose: 1 each Lorazepam (Ativan) 1 mg IM Q6HR PRN; Protocol PRN Reason: Agitation Stop: 04/17/19 02:49 Last Admin: 03/05/19 11:37 Dose: 1 mg Lorazepam (Ativan) 0.5 mg PO Q4HR PRN; Protocol PRN Reason: Agitation Stop: 05/04/19 12:08 Magnesium Hydroxide (Milk Of Magnesia) 30 ml GT HS PRN PRN Reason: Constipation Stop: 04/17/19 18:42 Magnesium Oxide (Mag-Oxide) 400 mg GT BID MADHURI Stop: 04/18/19 08:59 Last Admin: 03/11/19 17:37 Dose: 400 mg Mirtazapine (Remeron) 7.5 mg PO HS MADHURI; Protocol Stop: 05/04/19 20:59 Last Admin: 03/11/19 21:09 Dose: 7.5 mg Ondansetron HCl (Zofran) 4 mg IV Q6H PRN PRN Reason: Nausea / Vomiting Stop: 04/28/19 06:20 Sodium Phosphate (Fleet Enema) 135 ml RC Q48HR PRN PRN Reason: Constipation Stop: 04/17/19 20:14 Physical Exam: 58 y/o female patient has swelling of of the left upper extremity. General: weak, demented HEENT: NC/AT, PERRLA Neck: Supple, No JVD Lungs: CTAB Cardiovascular: RRR, Normal S1 Abdomen: soft, non-tender Extremities: edema Neurological: no change, unable to follow command, other - Procedures Procedures: Procedures Procedure Code Date INSERTION OF FEEDING DEVICE INTO STOMACH, PERC APPROACH [id number] 01/02/19 INSERTION OF INFUSION DEVICE INTO R LOW ARM, PERC APPROACH [id number] 01/02/19 INTRODUCTION OF NUTRITIONAL INTO PERIPH VEIN, PERC APPROACH [id number] 01/02/19 RESPIRATORY VENTILATION, LESS THAN 24 CONSECUTIVE HOURS [id number] 04/07/18 Internal Medicine Assmt/Plan - Assessment Assessment: Edema of Left upper extremity Hypertension. MRSA sepsis, treated Diskitis. Osteomyelitis of lumbar spine Anemia. Protein Malnutrition. S/p Deccanulation. S/p Percutaneous Endoscopic gastrostomy. Less agitated Dementia Psychosis Chronic Copd Protein-calorie malnutrition Failure to thrive - Plan Plan: Continuation of care Continue present meds as directed Monitor Pain Psych followup Monitor Vitals, Labs and Pain management Fall precaution Continue present care management Nutritional Asmnt/Malnutr-PDOC - Dietary Evaluation Malnutrition Findings (Please click <Entered> for more info): Nutritional Asmnt/Malnutrition Start: 02/17/19 17: 23 Text: Status: Complete Freq: Protocol: Document 02/17/19 17:23 LCHENG (Rec: 02/17/19 17:28 [email or web address]) Nutritional Asmnt/Malnutrition Patient General Information Nutritional Screening High Risk Consult Diagnosis osteomyelitis, central line placement Pertinent Medical Hx/Surgical Hx HTN, asthma/COPD, PUD/GERd, osteomylitis, anemia, PEG/ Gtube, schizophrenia, bipolar Subjective Information Consult received for ricky 12 and open wound. Pt seen resting in bed at time of visit. TF off at this time. Current Diet Order/ Nutrition Support Glucerna 1.2 at 60ml/hr x 20hr Pertinent Medications vit C, colace, heperin, humalog, culturelle, mag-oxide , vancomycin Pertinent Labs 02/17 K 3.4, Cr 0.5, glucose 94 Nutritional Hx/Data Height 1.65 m Height (Calculated Centimeters) 165.1 Current Weight (lbs) 36.741 kg Weight (Calculated Kilograms) 36.7 Weight (Calculated Grams) 01989.0 [place] Body Weight 125 Body Mass Index (BMI) 13.4 Weight Status Underweight GI Symptoms GI Symptoms None Last BM none Difficult in: None Skin Integrity/Comment: left foot and bilat arms bruises pressure area Complex - Includes bone to sacrum, skin tear to right foot ricky 12 Estimated Nutritional Goals Calories/Kcals/Kg 25-30 Kcals Calculated 1946-5715 Protein g/k.2-1.4 Protein Calculated 68-80 Fluid: ml 1425-1710ml (1ml/kcal) Nutritional Problem 1. Problem Problem increased nutrition needs Etiology impaired skin integrity Signs/Symptoms: open wound to sacrum Intervention/Recommendation Comments 1. Continue with current TF regimen with Glucerna 1.2 at 60ml/hr x 20hr. It provides 1440kcal, 72g protein, 966ml free water, meeting 100% of nutritional needs. Add Sadi BID for wound healing. 2. Monitor TF rate, tolerance, wt, skin integrity and labs 3. F/U as high risk in 2-3 days Expected Outcomes/Goals Expected Outcomes/Goals 1. Pt to meet at least 90% of nutritional needs via nutrition support with tolerance 2. Wt stability, skin to remain intact, labs to approach WNL.
[2019-03-12] MEDS: Albuterol Nebulizer 2.5mg/3mL HHN SCH ×4 (06:59→18:31)
[2019-03-12] MEDS: Budesonide 0.5 Mg/2 mL Ud HHN SCH ×2 (06:59→18:31)
[2019-03-12] MEDS: Multivitamin w/ Minerals Tab GT SCH (08:56)
[2019-03-12] MEDS: Lactobacillus Rhamnosus GG 15 Billion CFU CAP.SPRINK GT SCH (08:56)
[2019-03-12] MEDS: Venelex 60gm Tube TP SCH (08:57)
--- NOTE | 2019-03-12 14:17 | General Progress Note ---
Subjective - Review of Systems Service Date: 03/12/19 Subjective: Patient exam aimed discussed with the nurse chart reviewed patient's clinically unchanged Patient has swelling of the left upper extremity patient's IV site infiltrated in the same arm DVT Objective - Results Result Diagrams: 03/06/19 06:10 03/06/19 06:10 Recent Labs: Laboratory Last Values WBC 5.9 Th/cmm (4.8-10.8) 03/06/19 06:10 RBC 3.88 Mil/cmm (3.80-5.10) 03/06/19 06:10 Hgb 12.5 gm/dL (12-16) 03/06/19 06:10 Hct 37.2 % (41.0-60) L 03/06/19 06:10 MCV 95.7 fl (81-100) 03/06/19 06:10 MCH 32.1 pg (27.0-31.0) H 03/06/19 06:10 MCHC Differential 33.5 pg (28.0-36.0) 03/06/19 06:10 RDW 13.1 % (11.5-20.0) 03/06/19 06:10 Plt Count 266 Th/cmm (150-400) 03/06/19 06:10 MPV 7.5 fl 03/06/19 06:10 Neutrophils % 72.3 % (40.0-80.0) 03/06/19 06:10 Lymphocytes % 16.1 % (20.0-50.0) L 03/06/19 06:10 Monocytes % 8.6 % (2.0-10.0) 03/06/19 06:10 Eosinophils % 2.4 % (0.0-5.0) 03/06/19 06:10 Basophils % 0.6 % (0.0-2.0) 03/06/19 06:10 PT 11.6 SECONDS (9.5-11.5) H 02/15/19 23:40 INR 1.13 (0.5-1.4) 02/15/19 23:40 PTT (Actin FS) 44.0 SECONDS (26.0-38.0) H 02/15/19 23:40 Sodium 143 mEq/L (136-145) 03/06/19 06:10 Potassium 3.5 mEq/L (3.5-5.1) 03/06/19 06:10 Chloride 103 mEq/L (98-107) 03/06/19 06:10 Carbon Dioxide 31.4 mEq/L (21.0-31.0) H 03/06/19 06:10 Anion Gap 12.1 (7.0-16.0) 03/06/19 06:10 BUN 29 mg/dL (7-25) H 03/06/19 06:10 Creatinine 0.5 mg/dL (0.6-1.2) L 03/06/19 06:10 Est GFR ( Amer) > 60.0 ml/min (>90) 03/06/19 06:10 Est GFR (Non-Af Amer) > 60.0 ml/min 03/06/19 06:10 BUN/Creatinine Ratio 58.0 03/06/19 06:10 Glucose 101 mg/dL (70-105) 03/06/19 06:10 POC Glucose 105 MG/DL (70 - 105) 03/04/19 09:16 Whole Bld Lactic Acid 0.56 mmol/L (0.60-1.99) L 02/16/19 00:00 Calcium 9.6 mg/dL (8.6-10.3) 03/06/19 06:10 Total Bilirubin 0.5 mg/dL (0.3-1.0) 03/06/19 06:10 AST 28 U/L (13-39) 03/06/19 06:10 ALT 40 U/L (7-52) 03/06/19 06:10 Alkaline Phosphatase 110 U/L (34-104) H 03/06/19 06:10 Troponin I 0.01 ng/mL (0.01-0.05) 02/15/19 23:40 Total Protein 6.9 gm/dL (6.0-8.3) 03/06/19 06:10 Albumin 3.5 gm/dL (3.7-5.3) L 03/06/19 06:10 Globulin 3.4 gm/dL 03/06/19 06:10 Albumin/Globulin Ratio 1.0 (1.0-1.8) 03/06/19 06:10 TSH 4.06 uIU/ml (0.34-5.60) 02/15/19 23:40 Vancomycin Trough 17.7 ug/mL (5-10) H 03/02/19 10:00 Random Vancomycin 4.7 ug/mL (5.0-40.0) L 02/16/19 21:15 - Physical Exam Vitals and I&O: Vital Signs Temp 96.5 F 03/12/19 11:40 Pulse 66 03/12/19 13:59 Resp 18 03/12/19 13:59 BP 164/94 03/12/19 11:40 Pulse Ox 97 03/12/19 13:59 Intake & Output 03/11/19 03/12/19 03/12/19 18:59 06:59 18:59 Intake Total 720 Balance 720 Weight (lbs) 43.091 kg Intake: Tube Feeding 720 Other: # Voids 4 # Bowel Movements 1 Weight Source Bedscale Active Medications: Current Medications Acetaminophen (Tylenol) 650 mg GT Q6H PRN PRN Reason: mild pain Stop: 04/17/19 18:42 Last Admin: 03/03/19 21:19 Dose: 650 mg Al Hydrox/Mg Hydrox/Simethicone (Maalox) 30 ml GT Q6HR PRN PRN Reason: GI DISTRESS Stop: 04/17/19 18:42 Albuterol Sulfate (Albuterol 2.5mg/3ml Neb Ud) 2.5 mg HHN Q2HR PRN PRN Reason: Shortness of Breath Stop: 04/17/19 18:42 Albuterol Sulfate (Albuterol 2.5mg/3ml Neb Ud) 2.5 mg HHN S3OESSN [facility] Stop: 04/17/19 18:59 Last Admin: 03/12/19 13:59 Dose: 2.5 mg Ascorbic Acid (Vitamin C) 500 mg GT Q12HR MADHURI Stop: 04/17/19 20:59 Last Admin: 03/12/19 08:56 Dose: 500 mg Bisacodyl (Dulcolax 10 Mg Supp) 10 mg RC DAILY PRN PRN Reason: Constipation Stop: 04/17/19 20:14 Budesonide (Pulmicort) 0.5 mg HHN BIDRT MADHURI Stop: 04/18/19 06:59 Last Admin: 03/12/19 06:59 Dose: 0.5 mg Carvedilol (Coreg) 6.25 mg GT Q12H MADHURI Stop: 04/17/19 21:59 Last Admin: 03/12/19 09:20 Dose: Not Given [place] Oil/[place] Balsam/Trypsin (Venelex) 1 appl TP DAILY MADHURI Stop: 04/18/19 08:59 Last Admin: 03/12/19 08:57 Dose: 1 appl Docusate Sodium (Colace) 200 mg GT Q12H PRN PRN Reason: Constipation Stop: 04/17/19 20:14 Last Admin: 03/11/19 10:21 Dose: 200 mg Enalapril Maleate (Vasotec) 2.5 mg PO BID MADHURI Stop: 04/26/19 12:24 Last Admin: 03/12/19 09:19 Dose: 2.5 mg Glucagon (Glucagen) 1 mg IM PRN PRN PRN Reason: Blood Glucose less than 70 Stop: 04/17/19 20:14 Last Admin: 02/28/19 21:12 Dose: 1 mg Lactobacillus Rhamnosus (Culturelle 15b) 1 each GT DAILY MADHURI Stop: 04/18/19 08:59 Last Admin: 03/12/19 08:56 Dose: 1 each Lorazepam (Ativan) 1 mg IM Q6HR PRN; Protocol PRN Reason: Agitation Stop: 04/17/19 02:49 Last Admin: 03/05/19 11:37 Dose: 1 mg Lorazepam (Ativan) 0.5 mg PO Q4HR PRN; Protocol PRN Reason: Agitation Stop: 05/04/19 12:08 Magnesium Hydroxide (Milk Of Magnesia) 30 ml GT HS PRN PRN Reason: Constipation Stop: 04/17/19 18:42 Magnesium Oxide (Mag-Oxide) 400 mg GT BID MADHURI Stop: 04/18/19 08:59 Last Admin: 03/12/19 08:56 Dose: 400 mg Mirtazapine (Remeron) 7.5 mg PO HS MADHURI; Protocol Stop: 05/04/19 20:59 Last Admin: 03/11/19 21:09 Dose: 7.5 mg Ondansetron HCl (Zofran) 4 mg IV Q6H PRN PRN Reason: Nausea / Vomiting Stop: 04/28/19 06:20 Sodium Phosphate (Fleet Enema) 135 ml RC Q48HR PRN PRN Reason: Constipation Stop: 04/17/19 20:14 General: No acute distress HEENT: Mucous membr. moist/pink Neck: Supple, JVD, +2 carotid pulse wo bruit (flat) Cardiovascular: Regular rate, Normal S1, Normal S2, Systolic murmurs Lungs: Clear to auscultation, Normal air movement Abdomen: Bowel sounds, Soft, Other (G-tube) - Procedures Procedures: Procedures Procedure Code Date INSERTION OF FEEDING DEVICE INTO STOMACH, PERC APPROACH [id number] 01/02/19 INSERTION OF INFUSION DEVICE INTO R LOW ARM, PERC APPROACH [id number] 01/02/19 INTRODUCTION OF NUTRITIONAL INTO PERIPH VEIN, PERC APPROACH [id number] 01/02/19 RESPIRATORY VENTILATION, LESS THAN 24 CONSECUTIVE HOURS [id number] 04/07/18 Assessment/Plan - Assessment Assessment: Uncontrolled hypertension MRSA sepsis Osteomyelitis of the lumbosacral spine Discitis lumbosacral spine Dementia Dysphagia with PEG placement Protein calorie malnutrition Psychosis COPD DVT upper extremity - Plan Plan: Continue antihypertensive treatment continue antibiotics Venous duplex study Discharge planning Nutritional Asmnt/Malnutr-PDOC - Dietary Evaluation Malnutrition Findings (Please click <Entered> for more info): Nutritional Asmnt/Malnutrition Start: 02/17/19 17: 23 Text: Status: Complete Freq: Protocol: Document 02/17/19 17:23 LCHENG (Rec: 02/17/19 17:28 [email or web address]) Nutritional Asmnt/Malnutrition Patient General Information Nutritional Screening High Risk Consult Diagnosis osteomyelitis, central line placement Pertinent Medical Hx/Surgical Hx HTN, asthma/COPD, PUD/GERd, osteomylitis, anemia, PEG/ Gtube, schizophrenia, bipolar Subjective Information Consult received for ricky 12 and open wound. Pt seen resting in bed at time of visit. TF off at this time. Current Diet Order/ Nutrition Support Glucerna 1.2 at 60ml/hr x 20hr Pertinent Medications vit C, colace, heperin, humalog, culturelle, mag-oxide , vancomycin Pertinent Labs 02/17 K 3.4, Cr 0.5, glucose 94 Nutritional Hx/Data Height 1.65 m Height (Calculated Centimeters) 165.1 Current Weight (lbs) 36.741 kg Weight (Calculated Kilograms) 36.7 Weight (Calculated Grams) 76628.0 [place] Body Weight 125 Body Mass Index (BMI) 13.4 Weight Status Underweight GI Symptoms GI Symptoms None Last BM none Difficult in: None Skin Integrity/Comment: left foot and bilat arms bruises pressure area Complex - Includes bone to sacrum, skin tear to right foot ricky 12 Estimated Nutritional Goals Calories/Kcals/Kg 25-30 Kcals Calculated 4816-9110 Protein g/k.2-1.4 Protein Calculated 68-80 Fluid: ml 1425-1710ml (1ml/kcal) Nutritional Problem 1. Problem Problem increased nutrition needs Etiology impaired skin integrity Signs/Symptoms: open wound to sacrum Intervention/Recommendation Comments 1. Continue with current TF regimen with Glucerna 1.2 at 60ml/hr x 20hr. It provides 1440kcal, 72g protein, 966ml free water, meeting 100% of nutritional needs. Add Sadi BID for wound healing. 2. Monitor TF rate, tolerance, wt, skin integrity and labs 3. F/U as high risk in 2-3 days Expected Outcomes/Goals Expected Outcomes/Goals 1. Pt to meet at least 90% of nutritional needs via nutrition support with tolerance 2. Wt stability, skin to remain intact, labs to approach WNL.
--- NOTE | 2019-03-12 19:43 | Progress Notes ---
DATE: 03/12/2019 SUBJECTIVE: Case was discussed with staff of the patient, reviewed records. The patient has been calmer. She is still nonverbal. She sleeps well. She eats well. She denies any current intent to harm herself; however, she is not able to speak, but she is not acting anyway dangerous. She has not been hallucinating. No side effects with the medication, no sedation, and no nausea. She is on Remeron. Thank you very much for allowing me to participate in the care of this most interesting lady. JOB# [id number]
--- NOTE | 2019-03-12 20:36 | Internal Medicine Prog Note ---
Internal Medicine Subjective - Subjective Service Date: 03/12/19 Patient seen and examined:: with staff Patient is:: awake, interactive, confused, other (edema of the left upper extremity ) Patient Complaints of:: other (Hx of copd.) Per staff patient has:: no adverse event, no episodes of fall Internal Medicine Objective - Results Result Diagrams: 03/06/19 06:10 03/06/19 06:10 Recent Labs: Laboratory Last Values WBC 5.9 Th/cmm (4.8-10.8) 03/06/19 06:10 RBC 3.88 Mil/cmm (3.80-5.10) 03/06/19 06:10 Hgb 12.5 gm/dL (12-16) 03/06/19 06:10 Hct 37.2 % (41.0-60) L 03/06/19 06:10 MCV 95.7 fl (81-100) 03/06/19 06:10 MCH 32.1 pg (27.0-31.0) H 03/06/19 06:10 MCHC Differential 33.5 pg (28.0-36.0) 03/06/19 06:10 RDW 13.1 % (11.5-20.0) 03/06/19 06:10 Plt Count 266 Th/cmm (150-400) 03/06/19 06:10 MPV 7.5 fl 03/06/19 06:10 Neutrophils % 72.3 % (40.0-80.0) 03/06/19 06:10 Lymphocytes % 16.1 % (20.0-50.0) L 03/06/19 06:10 Monocytes % 8.6 % (2.0-10.0) 03/06/19 06:10 Eosinophils % 2.4 % (0.0-5.0) 03/06/19 06:10 Basophils % 0.6 % (0.0-2.0) 03/06/19 06:10 PT 11.6 SECONDS (9.5-11.5) H 02/15/19 23:40 INR 1.13 (0.5-1.4) 02/15/19 23:40 PTT (Actin FS) 44.0 SECONDS (26.0-38.0) H 02/15/19 23:40 Sodium 143 mEq/L (136-145) 03/06/19 06:10 Potassium 3.5 mEq/L (3.5-5.1) 03/06/19 06:10 Chloride 103 mEq/L (98-107) 03/06/19 06:10 Carbon Dioxide 31.4 mEq/L (21.0-31.0) H 03/06/19 06:10 Anion Gap 12.1 (7.0-16.0) 03/06/19 06:10 BUN 29 mg/dL (7-25) H 03/06/19 06:10 Creatinine 0.5 mg/dL (0.6-1.2) L 03/06/19 06:10 Est GFR ( Amer) > 60.0 ml/min (>90) 03/06/19 06:10 Est GFR (Non-Af Amer) > 60.0 ml/min 03/06/19 06:10 BUN/Creatinine Ratio 58.0 03/06/19 06:10 Glucose 101 mg/dL (70-105) 03/06/19 06:10 POC Glucose 105 MG/DL (70 - 105) 03/04/19 09:16 Whole Bld Lactic Acid 0.56 mmol/L (0.60-1.99) L 02/16/19 00:00 Calcium 9.6 mg/dL (8.6-10.3) 03/06/19 06:10 Total Bilirubin 0.5 mg/dL (0.3-1.0) 03/06/19 06:10 AST 28 U/L (13-39) 03/06/19 06:10 ALT 40 U/L (7-52) 03/06/19 06:10 Alkaline Phosphatase 110 U/L (34-104) H 03/06/19 06:10 Troponin I 0.01 ng/mL (0.01-0.05) 02/15/19 23:40 Total Protein 6.9 gm/dL (6.0-8.3) 03/06/19 06:10 Albumin 3.5 gm/dL (3.7-5.3) L 03/06/19 06:10 Globulin 3.4 gm/dL 03/06/19 06:10 Albumin/Globulin Ratio 1.0 (1.0-1.8) 03/06/19 06:10 TSH 4.06 uIU/ml (0.34-5.60) 02/15/19 23:40 Vancomycin Trough 17.7 ug/mL (5-10) H 03/02/19 10:00 Random Vancomycin 4.7 ug/mL (5.0-40.0) L 02/16/19 21:15 - Physical Exam Vitals and I&O: Vital Signs Temp 98.2 F 03/12/19 18:00 Pulse 63 03/12/19 18:37 Resp 18 03/12/19 18:37 BP 154/90 03/12/19 18:00 Pulse Ox 99 03/12/19 18:37 Intake & Output 03/12/19 03/12/19 03/13/19 06:59 18:59 06:59 Intake Total 720 Balance 720 Weight (lbs) 43.091 kg Intake: Tube Feeding 720 Other: # Voids 3 # Bowel Movements 1 Weight Source Bedscale Active Medications: Current Medications Acetaminophen (Tylenol) 650 mg GT Q6H PRN PRN Reason: mild pain Stop: 04/17/19 18:42 Last Admin: 03/03/19 21:19 Dose: 650 mg Al Hydrox/Mg Hydrox/Simethicone (Maalox) 30 ml GT Q6HR PRN PRN Reason: GI DISTRESS Stop: 04/17/19 18:42 Albuterol Sulfate (Albuterol 2.5mg/3ml Neb Ud) 2.5 mg HHN Q2HR PRN PRN Reason: Shortness of Breath Stop: 04/17/19 18:42 Albuterol Sulfate (Albuterol 2.5mg/3ml Neb Ud) 2.5 mg HHN [id number] MADHURI Stop: 04/17/19 18:59 Last Admin: 03/12/19 18:31 Dose: 2.5 mg Ascorbic Acid (Vitamin C) 500 mg GT Q12HR MADHURI Stop: 04/17/19 20:59 Last Admin: 03/12/19 08:56 Dose: 500 mg Bisacodyl (Dulcolax 10 Mg Supp) 10 mg RC DAILY PRN PRN Reason: Constipation Stop: 04/17/19 20:14 Budesonide (Pulmicort) 0.5 mg HHN BIDRT MADHURI Stop: 04/18/19 06:59 Last Admin: 03/12/19 18:31 Dose: 0.5 mg Carvedilol (Coreg) 6.25 mg GT Q12H MADHURI Stop: 04/17/19 21:59 Last Admin: 03/12/19 09:20 Dose: Not Given [place] Oil/[place] Balsam/Trypsin (Venelex) 1 appl TP DAILY MADHURI Stop: 04/18/19 08:59 Last Admin: 03/12/19 08:57 Dose: 1 appl Docusate Sodium (Colace) 200 mg GT Q12H PRN PRN Reason: Constipation Stop: 04/17/19 20:14 Last Admin: 03/11/19 10:21 Dose: 200 mg Enalapril Maleate (Vasotec) 2.5 mg PO BID MADHURI Stop: 04/26/19 12:24 Last Admin: 03/12/19 16:07 Dose: 2.5 mg Glucagon (Glucagen) 1 mg IM PRN PRN PRN Reason: Blood Glucose less than 70 Stop: 04/17/19 20:14 Last Admin: 02/28/19 21:12 Dose: 1 mg Lactobacillus Rhamnosus (Culturelle 15b) 1 each GT DAILY MADHURI Stop: 04/18/19 08:59 Last Admin: 03/12/19 08:56 Dose: 1 each Lorazepam (Ativan) 1 mg IM Q6HR PRN; Protocol PRN Reason: Agitation Stop: 04/17/19 02:49 Last Admin: 03/05/19 11:37 Dose: 1 mg Lorazepam (Ativan) 0.5 mg PO Q4HR PRN; Protocol PRN Reason: Agitation Stop: 05/04/19 12:08 Magnesium Hydroxide (Milk Of Magnesia) 30 ml GT HS PRN PRN Reason: Constipation Stop: 04/17/19 18:42 Magnesium Oxide (Mag-Oxide) 400 mg GT BID MADHURI Stop: 04/18/19 08:59 Last Admin: 03/12/19 16:03 Dose: 400 mg Mirtazapine (Remeron) 7.5 mg PO HS MADHURI; Protocol Stop: 05/04/19 20:59 Last Admin: 03/11/19 21:09 Dose: 7.5 mg Ondansetron HCl (Zofran) 4 mg IV Q6H PRN PRN Reason: Nausea / Vomiting Stop: 04/28/19 06:20 Sodium Phosphate (Fleet Enema) 135 ml RC Q48HR PRN PRN Reason: Constipation Stop: 04/17/19 20:14 Physical Exam: 58 y/o female patient has edema of of the left upper extremity. General: weak, demented HEENT: NC/AT, PERRLA Neck: Supple, No JVD Lungs: CTAB Cardiovascular: RRR, Normal S1 Abdomen: soft, non-tender Extremities: edema Neurological: no change, unable to follow command, other - Procedures Procedures: Procedures Procedure Code Date INSERTION OF FEEDING DEVICE INTO STOMACH, PERC APPROACH [id number] 01/02/19 INSERTION OF INFUSION DEVICE INTO R LOW ARM, PERC APPROACH [id number] 01/02/19 INTRODUCTION OF NUTRITIONAL INTO PERIPH VEIN, PERC APPROACH [id number] 01/02/19 RESPIRATORY VENTILATION, LESS THAN 24 CONSECUTIVE HOURS [id number] 04/07/18 Internal Medicine Assmt/Plan - Assessment Assessment: Edema of Left upper extremity Hypertension. MRSA sepsis, treated Diskitis. Osteomyelitis of lumbar spine Anemia. Protein Malnutrition. S/p Deccanulation. S/p Percutaneous Endoscopic gastrostomy. Less agitated Dementia Psychosis Chronic Copd Protein-calorie malnutrition Failure to thrive - Plan Plan: Continuation of care Continue present meds as directed Monitor Pain Psych followup Monitor Vitals, Labs and Pain management Fall precaution Continue present care management Nutritional Asmnt/Malnutr-PDOC - Dietary Evaluation Malnutrition Findings (Please click <Entered> for more info): Nutritional Asmnt/Malnutrition Start: 02/17/19 17: 23 Text: Status: Complete Freq: Protocol: Document 02/17/19 17:23 LCHENG (Rec: 02/17/19 17:28 [email or web address] [email or web address]) Nutritional Asmnt/Malnutrition Patient General Information Nutritional Screening High Risk Consult Diagnosis osteomyelitis, central line placement Pertinent Medical Hx/Surgical Hx HTN, asthma/COPD, PUD/GERd, osteomylitis, anemia, PEG/ Gtube, schizophrenia, bipolar Subjective Information Consult received for ricky 12 and open wound. Pt seen resting in bed at time of visit. TF off at this time. Current Diet Order/ Nutrition Support Glucerna 1.2 at 60ml/hr x 20hr Pertinent Medications vit C, colace, heperin, humalog, culturelle, mag-oxide , vancomycin Pertinent Labs 02/17 K 3.4, Cr 0.5, glucose 94 Nutritional Hx/Data Height 1.65 m Height (Calculated Centimeters) 165.1 Current Weight (lbs) 36.741 kg Weight (Calculated Kilograms) 36.7 Weight (Calculated Grams) 54923.0 [place] Body Weight 125 Body Mass Index (BMI) 13.4 Weight Status Underweight GI Symptoms GI Symptoms None Last BM none Difficult in: None Skin Integrity/Comment: left foot and bilat arms bruises pressure area Complex - Includes bone to sacrum, skin tear to right foot ricky 12 Estimated Nutritional Goals Calories/Kcals/Kg 25-30 Kcals Calculated 4119-8795 Protein g/k.2-1.4 Protein Calculated 68-80 Fluid: ml 1425-1710ml (1ml/kcal) Nutritional Problem 1. Problem Problem increased nutrition needs Etiology impaired skin integrity Signs/Symptoms: open wound to sacrum Intervention/Recommendation Comments 1. Continue with current TF regimen with Glucerna 1.2 at 60ml/hr x 20hr. It provides 1440kcal, 72g protein, 966ml free water, meeting 100% of nutritional needs. Add Sadi BID for wound healing. 2. Monitor TF rate, tolerance, wt, skin integrity and labs 3. F/U as high risk in 2-3 days Expected Outcomes/Goals Expected Outcomes/Goals 1. Pt to meet at least 90% of nutritional needs via nutrition support with tolerance 2. Wt stability, skin to remain intact, labs to approach WNL.
[2019-03-13] MEDS: Budesonide 0.5 Mg/2 mL Ud HHN SCH ×2 (07:10→18:31)
[2019-03-13] MEDS: Albuterol Nebulizer 2.5mg/3mL HHN SCH ×4 (07:10→18:31)
[2019-03-13] MEDS: Lactobacillus Rhamnosus GG 15 Billion CFU CAP.SPRINK GT SCH (08:27)
[2019-03-13] MEDS: Multivitamin w/ Minerals Tab GT SCH (08:28)
[2019-03-13] MEDS: Venelex 60gm Tube TP SCH (08:28)
--- NOTE | 2019-03-13 11:30 | General Progress Note ---
Subjective - Review of Systems Service Date: 03/13/19 Subjective: Patient exam aimed discussed with the nurse chart reviewed patient's clinically unchanged Patient has swelling of the left upper extremity patient's IV site infiltrated in the same arm DVT Objective - Results Result Diagrams: 03/06/19 06:10 03/06/19 06:10 Recent Labs: Laboratory Last Values WBC 5.9 Th/cmm (4.8-10.8) 03/06/19 06:10 RBC 3.88 Mil/cmm (3.80-5.10) 03/06/19 06:10 Hgb 12.5 gm/dL (12-16) 03/06/19 06:10 Hct 37.2 % (41.0-60) L 03/06/19 06:10 MCV 95.7 fl (81-100) 03/06/19 06:10 MCH 32.1 pg (27.0-31.0) H 03/06/19 06:10 MCHC Differential 33.5 pg (28.0-36.0) 03/06/19 06:10 RDW 13.1 % (11.5-20.0) 03/06/19 06:10 Plt Count 266 Th/cmm (150-400) 03/06/19 06:10 MPV 7.5 fl 03/06/19 06:10 Neutrophils % 72.3 % (40.0-80.0) 03/06/19 06:10 Lymphocytes % 16.1 % (20.0-50.0) L 03/06/19 06:10 Monocytes % 8.6 % (2.0-10.0) 03/06/19 06:10 Eosinophils % 2.4 % (0.0-5.0) 03/06/19 06:10 Basophils % 0.6 % (0.0-2.0) 03/06/19 06:10 PT 11.6 SECONDS (9.5-11.5) H 02/15/19 23:40 INR 1.13 (0.5-1.4) 02/15/19 23:40 PTT (Actin FS) 44.0 SECONDS (26.0-38.0) H 02/15/19 23:40 Sodium 143 mEq/L (136-145) 03/06/19 06:10 Potassium 3.5 mEq/L (3.5-5.1) 03/06/19 06:10 Chloride 103 mEq/L (98-107) 03/06/19 06:10 Carbon Dioxide 31.4 mEq/L (21.0-31.0) H 03/06/19 06:10 Anion Gap 12.1 (7.0-16.0) 03/06/19 06:10 BUN 29 mg/dL (7-25) H 03/06/19 06:10 Creatinine 0.5 mg/dL (0.6-1.2) L 03/06/19 06:10 Est GFR ( Amer) > 60.0 ml/min (>90) 03/06/19 06:10 Est GFR (Non-Af Amer) > 60.0 ml/min 03/06/19 06:10 BUN/Creatinine Ratio 58.0 03/06/19 06:10 Glucose 101 mg/dL (70-105) 03/06/19 06:10 POC Glucose 105 MG/DL (70 - 105) 03/04/19 09:16 Whole Bld Lactic Acid 0.56 mmol/L (0.60-1.99) L 02/16/19 00:00 Calcium 9.6 mg/dL (8.6-10.3) 03/06/19 06:10 Total Bilirubin 0.5 mg/dL (0.3-1.0) 03/06/19 06:10 AST 28 U/L (13-39) 03/06/19 06:10 ALT 40 U/L (7-52) 03/06/19 06:10 Alkaline Phosphatase 110 U/L (34-104) H 03/06/19 06:10 Troponin I 0.01 ng/mL (0.01-0.05) 02/15/19 23:40 Total Protein 6.9 gm/dL (6.0-8.3) 03/06/19 06:10 Albumin 3.5 gm/dL (3.7-5.3) L 03/06/19 06:10 Globulin 3.4 gm/dL 03/06/19 06:10 Albumin/Globulin Ratio 1.0 (1.0-1.8) 03/06/19 06:10 TSH 4.06 uIU/ml (0.34-5.60) 02/15/19 23:40 Vancomycin Trough 17.7 ug/mL (5-10) H 03/02/19 10:00 Random Vancomycin 4.7 ug/mL (5.0-40.0) L 02/16/19 21:15 - Physical Exam Vitals and I&O: Vital Signs Temp 97.2 F 03/13/19 10:00 Pulse 62 03/13/19 10:51 Resp 18 03/13/19 10:51 BP 135/80 03/13/19 10:13 Pulse Ox 97 03/13/19 10:51 Intake & Output 03/12/19 03/13/19 03/13/19 18:59 06:59 18:59 Intake Total 720 480 Balance 720 480 Weight (lbs) 43.091 kg 43.091 kg Intake: Tube Feeding 720 480 Other: # Voids 3 2 # Bowel Movements 1 Stool Characteristics Soft Brown Weight Source Bedscale Bedscale Active Medications: Current Medications Acetaminophen (Tylenol) 650 mg GT Q6H PRN PRN Reason: mild pain Stop: 04/17/19 18:42 Last Admin: 03/03/19 21:19 Dose: 650 mg Al Hydrox/Mg Hydrox/Simethicone (Maalox) 30 ml GT Q6HR PRN PRN Reason: GI DISTRESS Stop: 04/17/19 18:42 Albuterol Sulfate (Albuterol 2.5mg/3ml Neb Ud) 2.5 mg HHN Q2HR PRN PRN Reason: Shortness of Breath Stop: 04/17/19 18:42 Albuterol Sulfate (Albuterol 2.5mg/3ml Neb Ud) 2.5 mg HHN [id number] MADHURI Stop: 04/17/19 18:59 Last Admin: 03/13/19 10:51 Dose: 2.5 mg Ascorbic Acid (Vitamin C) 500 mg GT Q12HR MADHURI Stop: 04/17/19 20:59 Last Admin: 03/13/19 08:28 Dose: 500 mg Bisacodyl (Dulcolax 10 Mg Supp) 10 mg RC DAILY PRN PRN Reason: Constipation Stop: 04/17/19 20:14 Budesonide (Pulmicort) 0.5 mg HHN BIDRT MADHURI Stop: 04/18/19 06:59 Last Admin: 03/13/19 07:10 Dose: 0.5 mg Carvedilol (Coreg) 6.25 mg GT Q12H MADHURI Stop: 04/17/19 21:59 Last Admin: 03/13/19 10:13 Dose: 6.25 mg [place] Oil/[place] Balsam/Trypsin (Venelex) 1 appl TP DAILY MADHURI Stop: 04/18/19 08:59 Last Admin: 03/13/19 08:28 Dose: 1 appl Docusate Sodium (Colace) 200 mg GT Q12H PRN PRN Reason: Constipation Stop: 04/17/19 20:14 Last Admin: 03/11/19 10:21 Dose: 200 mg Enalapril Maleate (Vasotec) 2.5 mg PO BID MADHURI Stop: 04/26/19 12:24 Last Admin: 03/13/19 08:29 Dose: Not Given Glucagon (Glucagen) 1 mg IM PRN PRN PRN Reason: Blood Glucose less than 70 Stop: 04/17/19 20:14 Last Admin: 02/28/19 21:12 Dose: 1 mg Lactobacillus Rhamnosus (Culturelle 15b) 1 each GT DAILY MADHURI Stop: 04/18/19 08:59 Last Admin: 03/13/19 08:27 Dose: 1 each Lorazepam (Ativan) 1 mg IM Q6HR PRN; Protocol PRN Reason: Agitation Stop: 04/17/19 02:49 Last Admin: 03/05/19 11:37 Dose: 1 mg Lorazepam (Ativan) 0.5 mg PO Q4HR PRN; Protocol PRN Reason: Agitation Stop: 05/04/19 12:08 Magnesium Hydroxide (Milk Of Magnesia) 30 ml GT HS PRN PRN Reason: Constipation Stop: 04/17/19 18:42 Magnesium Oxide (Mag-Oxide) 400 mg GT BID MADHURI Stop: 04/18/19 08:59 Last Admin: 03/13/19 08:28 Dose: 400 mg Mirtazapine (Remeron) 7.5 mg PO HS MADHURI; Protocol Stop: 05/04/19 20:59 Last Admin: 03/12/19 21:26 Dose: 7.5 mg Ondansetron HCl (Zofran) 4 mg IV Q6H PRN PRN Reason: Nausea / Vomiting Stop: 04/28/19 06:20 Sodium Phosphate (Fleet Enema) 135 ml RC Q48HR PRN PRN Reason: Constipation Stop: 04/17/19 20:14 General: No acute distress HEENT: Mucous membr. moist/pink Neck: Supple, JVD, +2 carotid pulse wo bruit (flat) Cardiovascular: Regular rate, Normal S1, Normal S2, Systolic murmurs Lungs: Clear to auscultation, Normal air movement Abdomen: Bowel sounds, Soft, Other (G-tube) - Procedures Procedures: Procedures Procedure Code Date INSERTION OF FEEDING DEVICE INTO STOMACH, PERC APPROACH [id number] 01/02/19 INSERTION OF INFUSION DEVICE INTO R LOW ARM, PERC APPROACH [id number] 01/02/19 INTRODUCTION OF NUTRITIONAL INTO PERIPH VEIN, PERC APPROACH [id number] 01/02/19 RESPIRATORY VENTILATION, LESS THAN 24 CONSECUTIVE HOURS [id number] 04/07/18 Assessment/Plan - Assessment Assessment: Uncontrolled hypertension MRSA sepsis Osteomyelitis of the lumbosacral spine Discitis lumbosacral spine Dementia Dysphagia with PEG placement Protein calorie malnutrition Psychosis COPD DVT upper extremity - Plan Plan: Continue antihypertensive treatment continue antibiotics Venous duplex study Discharge planning Nutritional Asmnt/Malnutr-PDOC - Dietary Evaluation Malnutrition Findings (Please click <Entered> for more info): Nutritional Asmnt/Malnutrition Start: 02/17/19 17: 23 Text: Status: Complete Freq: Protocol: Document 02/17/19 17:23 LCHENG (Rec: 02/17/19 17:28 LCHENG [email or web address]) Nutritional Asmnt/Malnutrition Patient General Information Nutritional Screening High Risk Consult Diagnosis osteomyelitis, central line placement Pertinent Medical Hx/Surgical Hx HTN, asthma/COPD, PUD/GERd, osteomylitis, anemia, PEG/ Gtube, schizophrenia, bipolar Subjective Information Consult received for ricky 12 and open wound. Pt seen resting in bed at time of visit. TF off at this time. Current Diet Order/ Nutrition Support Glucerna 1.2 at 60ml/hr x 20hr Pertinent Medications vit C, colace, heperin, humalog, culturelle, mag-oxide , vancomycin Pertinent Labs 02/17 K 3.4, Cr 0.5, glucose 94 Nutritional Hx/Data Height 1.65 m Height (Calculated Centimeters) 165.1 Current Weight (lbs) 36.741 kg Weight (Calculated Kilograms) 36.7 Weight (Calculated Grams) 51495.0 [place] Body Weight 125 Body Mass Index (BMI) 13.4 Weight Status Underweight GI Symptoms GI Symptoms None Last BM none Difficult in: None Skin Integrity/Comment: left foot and bilat arms bruises pressure area Complex - Includes bone to sacrum, skin tear to right foot ricky 12 Estimated Nutritional Goals Calories/Kcals/Kg 25-30 Kcals Calculated 2559-6625 Protein g/k.2-1.4 Protein Calculated 68-80 Fluid: ml 1425-1710ml (1ml/kcal) Nutritional Problem 1. Problem Problem increased nutrition needs Etiology impaired skin integrity Signs/Symptoms: open wound to sacrum Intervention/Recommendation Comments 1. Continue with current TF regimen with Glucerna 1.2 at 60ml/hr x 20hr. It provides 1440kcal, 72g protein, 966ml free water, meeting 100% of nutritional needs. Add Sadi BID for wound healing. 2. Monitor TF rate, tolerance, wt, skin integrity and labs 3. F/U as high risk in 2-3 days Expected Outcomes/Goals Expected Outcomes/Goals 1. Pt to meet at least 90% of nutritional needs via nutrition support with tolerance 2. Wt stability, skin to remain intact, labs to approach WNL.
--- NOTE | 2019-03-13 18:57 | Internal Medicine Prog Note ---
Internal Medicine Subjective - Subjective Service Date: 03/13/19 Patient is:: awake, interactive, confused, other (edema of the left upper extremity ) Patient Complaints of:: other (Hx of copd.) Per staff patient has:: no adverse event, no episodes of fall Internal Medicine Objective - Results Result Diagrams: 03/06/19 06:10 03/06/19 06:10 Recent Labs: Laboratory Last Values WBC 5.9 Th/cmm (4.8-10.8) 03/06/19 06:10 RBC 3.88 Mil/cmm (3.80-5.10) 03/06/19 06:10 Hgb 12.5 gm/dL (12-16) 03/06/19 06:10 Hct 37.2 % (41.0-60) L 03/06/19 06:10 MCV 95.7 fl (81-100) 03/06/19 06:10 MCH 32.1 pg (27.0-31.0) H 03/06/19 06:10 MCHC Differential 33.5 pg (28.0-36.0) 03/06/19 06:10 RDW 13.1 % (11.5-20.0) 03/06/19 06:10 Plt Count 266 Th/cmm (150-400) 03/06/19 06:10 MPV 7.5 fl 03/06/19 06:10 Neutrophils % 72.3 % (40.0-80.0) 03/06/19 06:10 Lymphocytes % 16.1 % (20.0-50.0) L 03/06/19 06:10 Monocytes % 8.6 % (2.0-10.0) 03/06/19 06:10 Eosinophils % 2.4 % (0.0-5.0) 03/06/19 06:10 Basophils % 0.6 % (0.0-2.0) 03/06/19 06:10 PT 11.6 SECONDS (9.5-11.5) H 02/15/19 23:40 INR 1.13 (0.5-1.4) 02/15/19 23:40 PTT (Actin FS) 44.0 SECONDS (26.0-38.0) H 02/15/19 23:40 Sodium 143 mEq/L (136-145) 03/06/19 06:10 Potassium 3.5 mEq/L (3.5-5.1) 03/06/19 06:10 Chloride 103 mEq/L (98-107) 03/06/19 06:10 Carbon Dioxide 31.4 mEq/L (21.0-31.0) H 03/06/19 06:10 Anion Gap 12.1 (7.0-16.0) 03/06/19 06:10 BUN 29 mg/dL (7-25) H 03/06/19 06:10 Creatinine 0.5 mg/dL (0.6-1.2) L 03/06/19 06:10 Est GFR ( Amer) > 60.0 ml/min (>90) 03/06/19 06:10 Est GFR (Non-Af Amer) > 60.0 ml/min 03/06/19 06:10 BUN/Creatinine Ratio 58.0 03/06/19 06:10 Glucose 101 mg/dL (70-105) 03/06/19 06:10 POC Glucose 105 MG/DL (70 - 105) 03/04/19 09:16 Whole Bld Lactic Acid 0.56 mmol/L (0.60-1.99) L 02/16/19 00:00 Calcium 9.6 mg/dL (8.6-10.3) 03/06/19 06:10 Total Bilirubin 0.5 mg/dL (0.3-1.0) 03/06/19 06:10 AST 28 U/L (13-39) 03/06/19 06:10 ALT 40 U/L (7-52) 03/06/19 06:10 Alkaline Phosphatase 110 U/L (34-104) H 03/06/19 06:10 Troponin I 0.01 ng/mL (0.01-0.05) 02/15/19 23:40 Total Protein 6.9 gm/dL (6.0-8.3) 03/06/19 06:10 Albumin 3.5 gm/dL (3.7-5.3) L 03/06/19 06:10 Globulin 3.4 gm/dL 03/06/19 06:10 Albumin/Globulin Ratio 1.0 (1.0-1.8) 03/06/19 06:10 TSH 4.06 uIU/ml (0.34-5.60) 02/15/19 23:40 Vancomycin Trough 17.7 ug/mL (5-10) H 03/02/19 10:00 Random Vancomycin 4.7 ug/mL (5.0-40.0) L 02/16/19 21:15 - Physical Exam Vitals and I&O: Vital Signs Temp 97.0 F 03/13/19 16:08 Pulse 62 03/13/19 16:44 Resp 18 03/13/19 16:08 BP 134/84 03/13/19 16:44 Pulse Ox 99 03/13/19 16:08 Intake & Output 03/12/19 03/13/19 03/13/19 18:59 06:59 18:59 Intake Total 720 480 Balance 720 480 Weight (lbs) 95 lb 95 lb Intake: Tube Feeding 720 480 Other: # Voids 3 2 # Bowel Movements 1 Stool Characteristics Soft Brown Weight Source Bedscale Bedscale Active Medications: Current Medications Acetaminophen (Tylenol) 650 mg GT Q6H PRN PRN Reason: mild pain Stop: 04/17/19 18:42 Last Admin: 03/03/19 21:19 Dose: 650 mg Al Hydrox/Mg Hydrox/Simethicone (Maalox) 30 ml GT Q6HR PRN PRN Reason: GI DISTRESS Stop: 04/17/19 18:42 Albuterol Sulfate (Albuterol 2.5mg/3ml Neb Ud) 2.5 mg HHN Q2HR PRN PRN Reason: Shortness of Breath Stop: 04/17/19 18:42 Albuterol Sulfate (Albuterol 2.5mg/3ml Neb Ud) 2.5 mg HHN [id number] MADHURI Stop: 04/17/19 18:59 Last Admin: 03/13/19 18:31 Dose: 2.5 mg Ascorbic Acid (Vitamin C) 500 mg GT Q12HR MADHURI Stop: 04/17/19 20:59 Last Admin: 03/13/19 08:28 Dose: 500 mg Bisacodyl (Dulcolax 10 Mg Supp) 10 mg RC DAILY PRN PRN Reason: Constipation Stop: 04/17/19 20:14 Budesonide (Pulmicort) 0.5 mg HHN BIDRT MADHURI Stop: 04/18/19 06:59 Last Admin: 05/16/19 18:31 Dose: 0.5 mg Carvedilol (Coreg) 6.25 mg GT Q12H MADHURI Stop: 04/17/19 21:59 Last Admin: 03/13/19 10:13 Dose: 6.25 mg [place] Oil/[place] Balsam/Trypsin (Venelex) 1 appl TP DAILY MADHURI Stop: 04/18/19 08:59 Last Admin: 03/13/19 08:28 Dose: 1 appl Docusate Sodium (Colace) 200 mg GT Q12H PRN PRN Reason: Constipation Stop: 04/17/19 20:14 Last Admin: 03/11/19 10:21 Dose: 200 mg Enalapril Maleate (Vasotec) 2.5 mg PO BID MADHURI Stop: 04/26/19 12:24 Last Admin: 03/13/19 16:44 Dose: 2.5 mg Glucagon (Glucagen) 1 mg IM PRN PRN PRN Reason: Blood Glucose less than 70 Stop: 04/17/19 20:14 Last Admin: 02/28/19 21:12 Dose: 1 mg Lactobacillus Rhamnosus (Culturelle 15b) 1 each GT DAILY MADHURI Stop: 04/18/19 08:59 Last Admin: 03/13/19 08:27 Dose: 1 each Lorazepam (Ativan) 1 mg IM Q6HR PRN; Protocol PRN Reason: Agitation Stop: 04/17/19 02:49 Last Admin: 03/05/19 11:37 Dose: 1 mg Lorazepam (Ativan) 0.5 mg PO Q4HR PRN; Protocol PRN Reason: Agitation Stop: 05/04/19 12:08 Magnesium Hydroxide (Milk Of Magnesia) 30 ml GT HS PRN PRN Reason: Constipation Stop: 04/17/19 18:42 Magnesium Oxide (Mag-Oxide) 400 mg GT BID MADHURI Stop: 04/18/19 08:59 Last Admin: 03/13/19 16:45 Dose: 400 mg Mirtazapine (Remeron) 7.5 mg PO HS MADHURI; Protocol Stop: 05/04/19 20:59 Last Admin: 03/12/19 21:26 Dose: 7.5 mg Ondansetron HCl (Zofran) 4 mg IV Q6H PRN PRN Reason: Nausea / Vomiting Stop: 04/28/19 06:20 Sodium Phosphate (Fleet Enema) 135 ml RC Q48HR PRN PRN Reason: Constipation Stop: 04/17/19 20:14 General: weak, demented HEENT: NC/AT, PERRLA Neck: Supple, No JVD Lungs: CTAB Cardiovascular: RRR, Normal S1 Abdomen: soft, non-tender Extremities: edema Neurological: no change, unable to follow command, other - Procedures Procedures: Procedures Procedure Code Date INSERTION OF FEEDING DEVICE INTO STOMACH, PERC APPROACH [id number] 01/02/19 INSERTION OF INFUSION DEVICE INTO R LOW ARM, PERC APPROACH [id number] 01/02/19 INTRODUCTION OF NUTRITIONAL INTO PERIPH VEIN, PERC APPROACH [id number] 01/02/19 RESPIRATORY VENTILATION, LESS THAN 24 CONSECUTIVE HOURS [id number] 04/07/18 Internal Medicine Assmt/Plan - Assessment Assessment: OSTEOMYELITIS OF LUMBAR SPINE MRSA SEPSIS DYSPHAGIA DEMENTIA MODERATE PROTEIN CALORIE MALNUTRITION COPD S/P DECCANULATION - Plan Plan: placement issues continue current plan of care Nutritional Asmnt/Malnutr-PDOC - Dietary Evaluation Malnutrition Findings (Please click <Entered> for more info): Nutritional Asmnt/Malnutrition Start: 02/17/19 17: 23 Text: Status: Complete Freq: Protocol: Document 02/17/19 17:23 LCHENG (Rec: 02/17/19 17:28 [email or web address] [email or web address]) Nutritional Asmnt/Malnutrition Patient General Information Nutritional Screening High Risk Consult Diagnosis osteomyelitis, central line placement Pertinent Medical Hx/Surgical Hx HTN, asthma/COPD, PUD/GERd, osteomylitis, anemia, PEG/ Gtube, schizophrenia, bipolar Subjective Information Consult received for ricky 12 and open wound. Pt seen resting in bed at time of visit. TF off at this time. Current Diet Order/ Nutrition Support Glucerna 1.2 at 60ml/hr x 20hr Pertinent Medications vit C, colace, heperin, humalog, culturelle, mag-oxide , vancomycin Pertinent Labs 02/17 K 3.4, Cr 0.5, glucose 94 Nutritional Hx/Data Height 5 ft 5 in Height (Calculated Centimeters) 165.1 Current Weight (lbs) 81 lb Weight (Calculated Kilograms) 36.7 Weight (Calculated Grams) 97526.0 [place] Body Weight 125 Body Mass Index (BMI) 13.4 Weight Status Underweight GI Symptoms GI Symptoms None Last BM none Difficult in: None Skin Integrity/Comment: left foot and bilat arms bruises pressure area Complex - Includes bone to sacrum, skin tear to right foot ricky 12 Estimated Nutritional Goals Calories/Kcals/Kg 25-30 Kcals Calculated 7222-5576 Protein g/k.2-1.4 Protein Calculated 68-80 Fluid: ml 1425-1710ml (1ml/kcal) Nutritional Problem 1. Problem Problem increased nutrition needs Etiology impaired skin integrity Signs/Symptoms: open wound to sacrum Intervention/Recommendation Comments 1. Continue with current TF regimen with Glucerna 1.2 at 60ml/hr x 20hr. It provides 1440kcal, 72g protein, 966ml free water, meeting 100% of nutritional needs. Add Sadi BID for wound healing. 2. Monitor TF rate, tolerance, wt, skin integrity and labs 3. F/U as high risk in 2-3 days Expected Outcomes/Goals Expected Outcomes/Goals 1. Pt to meet at least 90% of nutritional needs via nutrition support with tolerance 2. Wt stability, skin to remain intact, labs to approach WNL.
--- NOTE | 2019-03-14 02:20 | Progress Notes ---
DATE: 03/13/2019 SUBJECTIVE: Case was discussed with staff of the patient, reviewed records. The patient has been behaving. She is sleeping well. She is eating well. She denies any intent to harm herself or anyone. She, however, is mostly nonverbal, but no such behavior, easier to redirect. No side effects with the medication, no sedation, no nausea. Thank you very much for allowing me to participate in the care of this most interesting lady. JOB# [id number]
[2019-03-14] MEDS: Albuterol Nebulizer 2.5mg/3mL HHN SCH ×4 (07:14→19:51)
[2019-03-14] MEDS: Budesonide 0.5 Mg/2 mL Ud HHN SCH ×2 (07:25→19:51)
[2019-03-14] MEDS: Lactobacillus Rhamnosus GG 15 Billion CFU CAP.SPRINK GT SCH (09:01)
[2019-03-14] MEDS: Multivitamin w/ Minerals Tab GT SCH (09:01)
[2019-03-14] MEDS: Venelex 60gm Tube TP SCH (09:02)
--- NOTE | 2019-03-14 13:05 | General Progress Note ---
Subjective - Review of Systems Service Date: 03/14/19 Subjective: Patient exam aimed discussed with the nurse chart reviewed patient's clinically unchanged Patient has swelling of the left upper extremity patient's IV site infiltrated in the same arm DVT Objective - Results Result Diagrams: 03/06/19 06:10 03/06/19 06:10 Recent Labs: Laboratory Last Values WBC 5.9 Th/cmm (4.8-10.8) 03/06/19 06:10 RBC 3.88 Mil/cmm (3.80-5.10) 03/06/19 06:10 Hgb 12.5 gm/dL (12-16) 03/06/19 06:10 Hct 37.2 % (41.0-60) L 03/06/19 06:10 MCV 95.7 fl (81-100) 03/06/19 06:10 MCH 32.1 pg (27.0-31.0) H 03/06/19 06:10 MCHC Differential 33.5 pg (28.0-36.0) 03/06/19 06:10 RDW 13.1 % (11.5-20.0) 03/06/19 06:10 Plt Count 266 Th/cmm (150-400) 03/06/19 06:10 MPV 7.5 fl 03/06/19 06:10 Neutrophils % 72.3 % (40.0-80.0) 03/06/19 06:10 Lymphocytes % 16.1 % (20.0-50.0) L 03/06/19 06:10 Monocytes % 8.6 % (2.0-10.0) 03/06/19 06:10 Eosinophils % 2.4 % (0.0-5.0) 03/06/19 06:10 Basophils % 0.6 % (0.0-2.0) 03/06/19 06:10 PT 11.6 SECONDS (9.5-11.5) H 02/15/19 23:40 INR 1.13 (0.5-1.4) 02/15/19 23:40 PTT (Actin FS) 44.0 SECONDS (26.0-38.0) H 02/15/19 23:40 Sodium 143 mEq/L (136-145) 03/06/19 06:10 Potassium 3.5 mEq/L (3.5-5.1) 03/06/19 06:10 Chloride 103 mEq/L (98-107) 03/06/19 06:10 Carbon Dioxide 31.4 mEq/L (21.0-31.0) H 03/06/19 06:10 Anion Gap 12.1 (7.0-16.0) 03/06/19 06:10 BUN 29 mg/dL (7-25) H 03/06/19 06:10 Creatinine 0.5 mg/dL (0.6-1.2) L 03/06/19 06:10 Est GFR ( Amer) > 60.0 ml/min (>90) 03/06/19 06:10 Est GFR (Non-Af Amer) > 60.0 ml/min 03/06/19 06:10 BUN/Creatinine Ratio 58.0 03/06/19 06:10 Glucose 101 mg/dL (70-105) 03/06/19 06:10 POC Glucose 105 MG/DL (70 - 105) 03/04/19 09:16 Whole Bld Lactic Acid 0.56 mmol/L (0.60-1.99) L 02/16/19 00:00 Calcium 9.6 mg/dL (8.6-10.3) 03/06/19 06:10 Total Bilirubin 0.5 mg/dL (0.3-1.0) 03/06/19 06:10 AST 28 U/L (13-39) 03/06/19 06:10 ALT 40 U/L (7-52) 03/06/19 06:10 Alkaline Phosphatase 110 U/L (34-104) H 03/06/19 06:10 Troponin I 0.01 ng/mL (0.01-0.05) 02/15/19 23:40 Total Protein 6.9 gm/dL (6.0-8.3) 03/06/19 06:10 Albumin 3.5 gm/dL (3.7-5.3) L 03/06/19 06:10 Globulin 3.4 gm/dL 03/06/19 06:10 Albumin/Globulin Ratio 1.0 (1.0-1.8) 03/06/19 06:10 TSH 4.06 uIU/ml (0.34-5.60) 02/15/19 23:40 Vancomycin Trough 17.7 ug/mL (5-10) H 03/02/19 10:00 Random Vancomycin 4.7 ug/mL (5.0-40.0) L 02/16/19 21:15 - Physical Exam Vitals and I&O: Vital Signs Temp 97.7 F 03/14/19 11:30 Pulse 60 03/14/19 11:45 Resp 18 03/14/19 11:45 BP 139/84 03/14/19 11:30 Pulse Ox 96 03/14/19 11:45 Intake & Output 03/13/19 03/14/19 03/14/19 18:59 06:59 18:59 Intake Total 720 1080 Balance 720 1080 Weight (lbs) 43.091 kg 43.091 kg Intake: Tube Feeding 720 1080 Other: # Voids 3 2 # Bowel Movements 1 1 Stool Characteristics Soft Soft Soft Brown Brown Brown Weight Source Bedscale Bedscale Active Medications: Current Medications Acetaminophen (Tylenol) 650 mg GT Q6H PRN PRN Reason: mild pain Stop: 04/17/19 18:42 Last Admin: 03/03/19 21:19 Dose: 650 mg Al Hydrox/Mg Hydrox/Simethicone (Maalox) 30 ml GT Q6HR PRN PRN Reason: GI DISTRESS Stop: 04/17/19 18:42 Albuterol Sulfate (Albuterol 2.5mg/3ml Neb Ud) 2.5 mg HHN Q2HR PRN PRN Reason: Shortness of Breath Stop: 04/17/19 18:42 Albuterol Sulfate (Albuterol 2.5mg/3ml Neb Ud) 2.5 mg HHN [id number] MADHURI Stop: 04/17/19 18:59 Last Admin: 03/14/19 11:45 Dose: 2.5 mg Ascorbic Acid (Vitamin C) 500 mg GT Q12HR MADHURI Stop: 04/17/19 20:59 Last Admin: 03/14/19 09:02 Dose: 500 mg Bisacodyl (Dulcolax 10 Mg Supp) 10 mg RC DAILY PRN PRN Reason: Constipation Stop: 04/17/19 20:14 Budesonide (Pulmicort) 0.5 mg HHN BIDRT MADHURI Stop: 04/18/19 06:59 Last Admin: 03/14/19 07:25 Dose: 0.5 mg Carvedilol (Coreg) 6.25 mg GT Q12H MADHURI Stop: 04/17/19 21:59 Last Admin: 03/14/19 09:01 Dose: 6.25 mg [place] Oil/[place] Balsam/Trypsin (Venelex) 1 appl TP DAILY MADHURI Stop: 04/18/19 08:59 Last Admin: 03/14/19 09:02 Dose: 1 appl Docusate Sodium (Colace) 200 mg GT Q12H PRN PRN Reason: Constipation Stop: 04/17/19 20:14 Last Admin: 03/11/19 10:21 Dose: 200 mg Enalapril Maleate (Vasotec) 2.5 mg PO BID MADHURI Stop: 04/26/19 12:24 Last Admin: 03/14/19 09:00 Dose: 2.5 mg Glucagon (Glucagen) 1 mg IM PRN PRN PRN Reason: Blood Glucose less than 70 Stop: 04/17/19 20:14 Last Admin: 02/28/19 21:12 Dose: 1 mg Lactobacillus Rhamnosus (Culturelle 15b) 1 each GT DAILY MADHURI Stop: 04/18/19 08:59 Last Admin: 03/14/19 09:01 Dose: 1 each Lorazepam (Ativan) 1 mg IM Q6HR PRN; Protocol PRN Reason: Agitation Stop: 04/17/19 02:49 Last Admin: 03/05/19 11:37 Dose: 1 mg Lorazepam (Ativan) 0.5 mg PO Q4HR PRN; Protocol PRN Reason: Agitation Stop: 05/04/19 12:08 Magnesium Hydroxide (Milk Of Magnesia) 30 ml GT HS PRN PRN Reason: Constipation Stop: 04/17/19 18:42 Magnesium Oxide (Mag-Oxide) 400 mg GT BID MADHURI Stop: 04/18/19 08:59 Last Admin: 03/14/19 09:01 Dose: 400 mg Mirtazapine (Remeron) 7.5 mg PO HS MADHURI; Protocol Stop: 05/04/19 20:59 Last Admin: 03/13/19 21:06 Dose: 7.5 mg Ondansetron HCl (Zofran) 4 mg IV Q6H PRN PRN Reason: Nausea / Vomiting Stop: 04/28/19 06:20 Sodium Phosphate (Fleet Enema) 135 ml RC Q48HR PRN PRN Reason: Constipation Stop: 04/17/19 20:14 General: No acute distress HEENT: Mucous membr. moist/pink Neck: Supple, JVD, +2 carotid pulse wo bruit (flat) Cardiovascular: Regular rate, Normal S1, Normal S2, Systolic murmurs Lungs: Clear to auscultation, Normal air movement Abdomen: Bowel sounds, Soft, Other (G-tube) - Procedures Procedures: Procedures Procedure Code Date INSERTION OF FEEDING DEVICE INTO STOMACH, PERC APPROACH [id number] 01/02/19 INSERTION OF INFUSION DEVICE INTO R LOW ARM, PERC APPROACH [id number] 01/02/19 INTRODUCTION OF NUTRITIONAL INTO PERIPH VEIN, PERC APPROACH [id number] 01/02/19 RESPIRATORY VENTILATION, LESS THAN 24 CONSECUTIVE HOURS [id number] 04/07/18 Assessment/Plan - Assessment Assessment: Uncontrolled hypertension MRSA sepsis Osteomyelitis of the lumbosacral spine Discitis lumbosacral spine Dementia Dysphagia with PEG placement Protein calorie malnutrition Psychosis COPD DVT upper extremity - Plan Plan: Continue antihypertensive treatment continue antibiotics Venous duplex study Discharge planning Nutritional Asmnt/Malnutr-PDOC - Dietary Evaluation Malnutrition Findings (Please click <Entered> for more info): Nutritional Asmnt/Malnutrition Start: 02/17/19 17: 23 Text: Status: Complete Freq: Protocol: Document 02/17/19 17:23 LCHENG (Rec: 02/17/19 17:28 LCHENG [email or web address]) Nutritional Asmnt/Malnutrition Patient General Information Nutritional Screening High Risk Consult Diagnosis osteomyelitis, central line placement Pertinent Medical Hx/Surgical Hx HTN, asthma/COPD, PUD/GERd, osteomylitis, anemia, PEG/ Gtube, schizophrenia, bipolar Subjective Information Consult received for ricky 12 and open wound. Pt seen resting in bed at time of visit. TF off at this time. Current Diet Order/ Nutrition Support Glucerna 1.2 at 60ml/hr x 20hr Pertinent Medications vit C, colace, heperin, humalog, culturelle, mag-oxide , vancomycin Pertinent Labs 02/17 K 3.4, Cr 0.5, glucose 94 Nutritional Hx/Data Height 1.65 m Height (Calculated Centimeters) 165.1 Current Weight (lbs) 36.741 kg Weight (Calculated Kilograms) 36.7 Weight (Calculated Grams) 01793.0 [place] Body Weight 125 Body Mass Index (BMI) 13.4 Weight Status Underweight GI Symptoms GI Symptoms None Last BM none Difficult in: None Skin Integrity/Comment: left foot and bilat arms bruises pressure area Complex - Includes bone to sacrum, skin tear to right foot ricky 12 Estimated Nutritional Goals Calories/Kcals/Kg 25-30 Kcals Calculated 6393-2625 Protein g/k.2-1.4 Protein Calculated 68-80 Fluid: ml 1425-1710ml (1ml/kcal) Nutritional Problem 1. Problem Problem increased nutrition needs Etiology impaired skin integrity Signs/Symptoms: open wound to sacrum Intervention/Recommendation Comments 1. Continue with current TF regimen with Glucerna 1.2 at 60ml/hr x 20hr. It provides 1440kcal, 72g protein, 966ml free water, meeting 100% of nutritional needs. Add Sadi BID for wound healing. 2. Monitor TF rate, tolerance, wt, skin integrity and labs 3. F/U as high risk in 2-3 days Expected Outcomes/Goals Expected Outcomes/Goals 1. Pt to meet at least 90% of nutritional needs via nutrition support with tolerance 2. Wt stability, skin to remain intact, labs to approach WNL.
--- NOTE | 2019-03-14 23:32 | Progress Notes ---
DATE: 03/14/2019 Case was discussed with staff of the patient, reviewed records. The patient continues to do the same. She is more easy to redirect. She is sleeping well, eating well. She reported no suicidal ideation. No homicidal ideation. No paranoia. She is unable to take that how her behavior is. She has been easier to redirect. No side effects with the medication. Thank you very much for allowing me to participate in the care of this most interesting lady. The patient needs follow up with a psychiatrist upon discharge. JOB# [id number]
[2019-03-15] MEDS: Albuterol Nebulizer 2.5mg/3mL HHN SCH ×4 (06:12→18:36)
[2019-03-15] MEDS: Budesonide 0.5 Mg/2 mL Ud HHN SCH ×2 (06:23→18:36)
[2019-03-15] MEDS: Lactobacillus Rhamnosus GG 15 Billion CFU CAP.SPRINK GT SCH (08:13)
[2019-03-15] MEDS: Multivitamin w/ Minerals Tab GT SCH (08:14)
[2019-03-15] MEDS: Venelex 60gm Tube TP SCH (08:15)
--- NOTE | 2019-03-15 11:21 | Internal Medicine Prog Note ---
Internal Medicine Subjective - Subjective Service Date: 03/15/19 Patient seen and examined:: with staff Patient is:: awake, interactive, confused, other (edema of the left upper extremity, dvt of upper extremity.) Patient Complaints of:: other (Hx of copd.) Per staff patient has:: no adverse event, no episodes of fall, confused Internal Medicine Objective - Results Result Diagrams: 03/06/19 06:10 03/06/19 06:10 Recent Labs: Laboratory Last Values WBC 5.9 Th/cmm (4.8-10.8) 03/06/19 06:10 RBC 3.88 Mil/cmm (3.80-5.10) 03/06/19 06:10 Hgb 12.5 gm/dL (12-16) 03/06/19 06:10 Hct 37.2 % (41.0-60) L 03/06/19 06:10 MCV 95.7 fl (81-100) 03/06/19 06:10 MCH 32.1 pg (27.0-31.0) H 03/06/19 06:10 MCHC Differential 33.5 pg (28.0-36.0) 03/06/19 06:10 RDW 13.1 % (11.5-20.0) 03/06/19 06:10 Plt Count 266 Th/cmm (150-400) 03/06/19 06:10 MPV 7.5 fl 03/06/19 06:10 Neutrophils % 72.3 % (40.0-80.0) 03/06/19 06:10 Lymphocytes % 16.1 % (20.0-50.0) L 03/06/19 06:10 Monocytes % 8.6 % (2.0-10.0) 03/06/19 06:10 Eosinophils % 2.4 % (0.0-5.0) 03/06/19 06:10 Basophils % 0.6 % (0.0-2.0) 03/06/19 06:10 PT 11.6 SECONDS (9.5-11.5) H 02/15/19 23:40 INR 1.13 (0.5-1.4) 02/15/19 23:40 PTT (Actin FS) 44.0 SECONDS (26.0-38.0) H 02/15/19 23:40 Sodium 143 mEq/L (136-145) 03/06/19 06:10 Potassium 3.5 mEq/L (3.5-5.1) 03/06/19 06:10 Chloride 103 mEq/L (98-107) 03/06/19 06:10 Carbon Dioxide 31.4 mEq/L (21.0-31.0) H 03/06/19 06:10 Anion Gap 12.1 (7.0-16.0) 03/06/19 06:10 BUN 29 mg/dL (7-25) H 03/06/19 06:10 Creatinine 0.5 mg/dL (0.6-1.2) L 03/06/19 06:10 Est GFR ( Amer) > 60.0 ml/min (>90) 03/06/19 06:10 Est GFR (Non-Af Amer) > 60.0 ml/min 03/06/19 06:10 BUN/Creatinine Ratio 58.0 03/06/19 06:10 Glucose 101 mg/dL (70-105) 03/06/19 06:10 POC Glucose 105 MG/DL (70 - 105) 03/04/19 09:16 Whole Bld Lactic Acid 0.56 mmol/L (0.60-1.99) L 02/16/19 00:00 Calcium 9.6 mg/dL (8.6-10.3) 03/06/19 06:10 Total Bilirubin 0.5 mg/dL (0.3-1.0) 03/06/19 06:10 AST 28 U/L (13-39) 03/06/19 06:10 ALT 40 U/L (7-52) 03/06/19 06:10 Alkaline Phosphatase 110 U/L (34-104) H 03/06/19 06:10 Troponin I 0.01 ng/mL (0.01-0.05) 02/15/19 23:40 Total Protein 6.9 gm/dL (6.0-8.3) 03/06/19 06:10 Albumin 3.5 gm/dL (3.7-5.3) L 03/06/19 06:10 Globulin 3.4 gm/dL 03/06/19 06:10 Albumin/Globulin Ratio 1.0 (1.0-1.8) 03/06/19 06:10 TSH 4.06 uIU/ml (0.34-5.60) 02/15/19 23:40 Vancomycin Trough 17.7 ug/mL (5-10) H 03/02/19 10:00 Random Vancomycin 4.7 ug/mL (5.0-40.0) L 02/16/19 21:15 - Physical Exam Vitals and I&O: Vital Signs Temp 97.3 F 03/15/19 07:00 Pulse 71 03/15/19 11:06 Resp 18 03/15/19 11:06 BP 135/83 03/15/19 09:32 Pulse Ox 96 03/15/19 11:06 Intake & Output 03/14/19 03/15/19 03/15/19 18:59 06:59 18:59 Intake Total 720 1080 Balance 720 1080 Weight (lbs) 45.495 kg 45.359 kg Intake: Tube Feeding 720 1080 Other: # Voids 2 2 # Bowel Movements 1 2 Stool Characteristics Soft Soft Soft Brown Brown [facility] Active Medications: Current Medications Acetaminophen (Tylenol) 650 mg GT Q6H PRN PRN Reason: mild pain Stop: 04/17/19 18:42 Last Admin: 03/03/19 21:19 Dose: 650 mg Al Hydrox/Mg Hydrox/Simethicone (Maalox) 30 ml GT Q6HR PRN PRN Reason: GI DISTRESS Stop: 04/17/19 18:42 Albuterol Sulfate (Albuterol 2.5mg/3ml Neb Ud) 2.5 mg HHN Q2HR PRN PRN Reason: Shortness of Breath Stop: 04/17/19 18:42 Albuterol Sulfate (Albuterol 2.5mg/3ml Neb Ud) 2.5 mg HHN [id number] MADHURI Stop: 04/17/19 18:59 Last Admin: 03/15/19 11:06 Dose: 2.5 mg Ascorbic Acid (Vitamin C) 500 mg GT Q12HR MADHURI Stop: 04/17/19 20:59 Last Admin: 03/15/19 08:14 Dose: 500 mg Bisacodyl (Dulcolax 10 Mg Supp) 10 mg RC DAILY PRN PRN Reason: Constipation Stop: 04/17/19 20:14 Budesonide (Pulmicort) 0.5 mg HHN BIDRT [facility] Stop: 04/18/19 06:59 Last Admin: 03/15/19 06:23 Dose: 0.5 mg Carvedilol (Coreg) 6.25 mg GT Q12H MADHURI Stop: 04/17/19 21:59 Last Admin: 03/15/19 09:32 Dose: 6.25 mg [place] Oil/[place] Balsam/Trypsin (Venelex) 1 appl TP DAILY MADHURI Stop: 04/18/19 08:59 Last Admin: 03/15/19 08:15 Dose: 1 appl Docusate Sodium (Colace) 200 mg GT Q12H PRN PRN Reason: Constipation Stop: 04/17/19 20:14 Last Admin: 03/11/19 10:21 Dose: 200 mg Enalapril Maleate (Vasotec) 2.5 mg PO BID MADHURI Stop: 04/26/19 12:24 Last Admin: 03/15/19 08:25 Dose: 2.5 mg Glucagon (Glucagen) 1 mg IM PRN PRN PRN Reason: Blood Glucose less than 70 Stop: 04/17/19 20:14 Last Admin: 02/28/19 21:12 Dose: 1 mg Lactobacillus Rhamnosus (Culturelle 15b) 1 each GT DAILY MADHURI Stop: 04/18/19 08:59 Last Admin: 03/15/19 08:13 Dose: 1 each Lorazepam (Ativan) 1 mg IM Q6HR PRN; Protocol PRN Reason: Agitation Stop: 04/17/19 02:49 Last Admin: 03/05/19 11:37 Dose: 1 mg Lorazepam (Ativan) 0.5 mg PO Q4HR PRN; Protocol PRN Reason: Agitation Stop: 05/04/19 12:08 Magnesium Hydroxide (Milk Of Magnesia) 30 ml GT HS PRN PRN Reason: Constipation Stop: 04/17/19 18:42 Magnesium Oxide (Mag-Oxide) 400 mg GT BID MADHURI Stop: 04/18/19 08:59 Last Admin: 03/15/19 08:14 Dose: 400 mg Mirtazapine (Remeron) 7.5 mg PO HS MADHURI; Protocol Stop: 05/04/19 20:59 Last Admin: 03/14/19 21:58 Dose: 7.5 mg Ondansetron HCl (Zofran) 4 mg IV Q6H PRN PRN Reason: Nausea / Vomiting Stop: 04/28/19 06:20 Sodium Phosphate (Fleet Enema) 135 ml RC Q48HR PRN PRN Reason: Constipation Stop: 04/17/19 20:14 Physical Exam: 58 y/o female patient has edema of of the left upper extremity, Dvt of upper extremity which patient is getting treatment for and has improved. General: weak, demented HEENT: NC/AT, PERRLA Neck: Supple, No JVD Lungs: CTAB Cardiovascular: RRR, Normal S1 Abdomen: soft, non-tender Extremities: edema Neurological: no change, unable to follow command, other - Procedures Procedures: Procedures Procedure Code Date INSERTION OF FEEDING DEVICE INTO STOMACH, PERC APPROACH [id number] 01/02/19 INSERTION OF INFUSION DEVICE INTO R LOW ARM, PERC APPROACH [id number] 01/02/19 INTRODUCTION OF NUTRITIONAL INTO PERIPH VEIN, PERC APPROACH [id number] 01/02/19 RESPIRATORY VENTILATION, LESS THAN 24 CONSECUTIVE HOURS [id number] 04/07/18 Internal Medicine Assmt/Plan - Assessment Assessment: Edema of Left upper extremity Hypertension. MRSA sepsis, treated Diskitis. Osteomyelitis of lumbar spine Anemia. Protein Malnutrition. S/p Deccanulation. S/p Percutaneous Endoscopic gastrostomy. Less agitated Dementia Psychosis Chronic Copd Protein-calorie malnutrition Failure to thrive DVT of upper extremity - Plan Plan: Continuation of care Continue present meds as directed Monitor Pain Psych followup Monitor Vitals, Labs and Pain management Fall precaution Continue present care management Nutritional Asmnt/Malnutr-PDOC - Dietary Evaluation Malnutrition Findings (Please click <Entered> for more info): Nutritional Asmnt/Malnutrition Start: 02/17/19 17: 23 Text: Status: Complete Freq: Protocol: Document 02/17/19 17:23 LCHENG (Rec: 02/17/19 17:28 [email or web address]) Nutritional Asmnt/Malnutrition Patient General Information Nutritional Screening High Risk Consult Diagnosis osteomyelitis, central line placement Pertinent Medical Hx/Surgical Hx HTN, asthma/COPD, PUD/GERd, osteomylitis, anemia, PEG/ Gtube, schizophrenia, bipolar Subjective Information Consult received for ricky 12 and open wound. Pt seen resting in bed at time of visit. TF off at this time. Current Diet Order/ Nutrition Support Glucerna 1.2 at 60ml/hr x 20hr Pertinent Medications vit C, colace, heperin, humalog, culturelle, mag-oxide , vancomycin Pertinent Labs 02/17 K 3.4, Cr 0.5, glucose 94 Nutritional Hx/Data Height 1.65 m Height (Calculated Centimeters) 165.1 Current Weight (lbs) 36.741 kg Weight (Calculated Kilograms) 36.7 Weight (Calculated Grams) 21417.0 [place] Body Weight 125 Body Mass Index (BMI) 13.4 Weight Status Underweight GI Symptoms GI Symptoms None Last BM none Difficult in: None Skin Integrity/Comment: left foot and bilat arms bruises pressure area Complex - Includes bone to sacrum, skin tear to right foot ricky 12 Estimated Nutritional Goals Calories/Kcals/Kg 25-30 Kcals Calculated 8516-9340 Protein g/k.2-1.4 Protein Calculated 68-80 Fluid: ml 1425-1710ml (1ml/kcal) Nutritional Problem 1. Problem Problem increased nutrition needs Etiology impaired skin integrity Signs/Symptoms: open wound to sacrum Intervention/Recommendation Comments 1. Continue with current TF regimen with Glucerna 1.2 at 60ml/hr x 20hr. It provides 1440kcal, 72g protein, 966ml free water, meeting 100% of nutritional needs. Add Sadi BID for wound healing. 2. Monitor TF rate, tolerance, wt, skin integrity and labs 3. F/U as high risk in 2-3 days Expected Outcomes/Goals Expected Outcomes/Goals 1. Pt to meet at least 90% of nutritional needs via nutrition support with tolerance 2. Wt stability, skin to remain intact, labs to approach WNL.
--- NOTE | 2019-03-16 04:45 | Progress Notes ---
DATE: 03/15/2019 SUBJECTIVE: This 58-year-old female was seen and examined. This is a patient who has been here with uncontrolled hypertension, MRSA sepsis, osteomyelitis of the lumbosacral spine, diskitis of the lumbosacral spine, dementia, dysphagia with placement of PEG, protein calorie malnutrition, COPD and DVT of the upper extremity. The patient has been doing stable. PHYSICAL EXAMINATION: VITAL SIGNS: On looking at the vital signs, heart rate was 74, blood pressure was 135/84, respiration 18 and temperature 98.4. SKIN: Normal. HEAD: Normocephalic. EYES: Conjunctivae were pink. There is no icterus in the eyes. Pupils are reacting to light. NECK: There was no increased jugular venous distention, no thyromegaly, no lymphadenopathy. Carotids equal both sides. CHEST: Bilaterally symmetrical. Moves well with respiration. Respiratory movements equal both sides. Trachea is central. There is note to percussion. Breath sounds, few basilar rales. CARDIOVASCULAR SYSTEM: PMI not well localized. There is no pulsation or thrill. No parasternal heave. S1 normal, S2 physiologic. There were no S3, no rub. ABDOMEN: Soft. Bowel sounds are present. PEG in place. IMPRESSION: Uncontrolled hypertension, MRSA sepsis, osteomyelitis of the lumbosacral spine, diskitis of the lumbosacral spine, dementia, status post PEG placement for dysphagia, protein-calorie malnutrition, COPD, psychosis and DVT of upper extremity. Suggest to continue present management. JOB# [id number]
[2019-03-16] MEDS: Albuterol Nebulizer 2.5mg/3mL HHN SCH ×4 (07:02→19:08)
[2019-03-16] MEDS: Budesonide 0.5 Mg/2 mL Ud HHN SCH ×2 (07:02→19:08)
[2019-03-16] MEDS: Lactobacillus Rhamnosus GG 15 Billion CFU CAP.SPRINK GT SCH (09:25)
[2019-03-16] MEDS: Multivitamin w/ Minerals Tab GT SCH (09:26)
[2019-03-16] MEDS: Venelex 60gm Tube TP SCH (09:27)
--- NOTE | 2019-03-16 21:12 | Infectious Disease Prog Note ---
Infectious Disease Subjective - Review of Systems Service Date: 03/16/19 Subjective: There is no new change, no fever./ Infectious Disease Objective - Results Result Diagrams: 03/06/19 06:10 03/06/19 06:10 Recent Labs: Laboratory Last Values WBC 5.9 Th/cmm (4.8-10.8) 03/06/19 06:10 RBC 3.88 Mil/cmm (3.80-5.10) 03/06/19 06:10 Hgb 12.5 gm/dL (12-16) 03/06/19 06:10 Hct 37.2 % (41.0-60) L 03/06/19 06:10 MCV 95.7 fl (81-100) 03/06/19 06:10 MCH 32.1 pg (27.0-31.0) H 03/06/19 06:10 MCHC Differential 33.5 pg (28.0-36.0) 03/06/19 06:10 RDW 13.1 % (11.5-20.0) 03/06/19 06:10 Plt Count 266 Th/cmm (150-400) 03/06/19 06:10 MPV 7.5 fl 03/06/19 06:10 Neutrophils % 72.3 % (40.0-80.0) 03/06/19 06:10 Lymphocytes % 16.1 % (20.0-50.0) L 03/06/19 06:10 Monocytes % 8.6 % (2.0-10.0) 03/06/19 06:10 Eosinophils % 2.4 % (0.0-5.0) 03/06/19 06:10 Basophils % 0.6 % (0.0-2.0) 03/06/19 06:10 PT 11.6 SECONDS (9.5-11.5) H 02/15/19 23:40 INR 1.13 (0.5-1.4) 02/15/19 23:40 PTT (Actin FS) 44.0 SECONDS (26.0-38.0) H 02/15/19 23:40 Sodium 143 mEq/L (136-145) 03/06/19 06:10 Potassium 3.5 mEq/L (3.5-5.1) 03/06/19 06:10 Chloride 103 mEq/L (98-107) 03/06/19 06:10 Carbon Dioxide 31.4 mEq/L (21.0-31.0) H 03/06/19 06:10 Anion Gap 12.1 (7.0-16.0) 03/06/19 06:10 BUN 29 mg/dL (7-25) H 03/06/19 06:10 Creatinine 0.5 mg/dL (0.6-1.2) L 03/06/19 06:10 Est GFR ( Amer) > 60.0 ml/min (>90) 03/06/19 06:10 Est GFR (Non-Af Amer) > 60.0 ml/min 03/06/19 06:10 BUN/Creatinine Ratio 58.0 03/06/19 06:10 Glucose 101 mg/dL (70-105) 03/06/19 06:10 POC Glucose 105 MG/DL (70 - 105) 03/04/19 09:16 Whole Bld Lactic Acid 0.56 mmol/L (0.60-1.99) L 02/16/19 00:00 Calcium 9.6 mg/dL (8.6-10.3) 03/06/19 06:10 Total Bilirubin 0.5 mg/dL (0.3-1.0) 03/06/19 06:10 AST 28 U/L (13-39) 03/06/19 06:10 ALT 40 U/L (7-52) 03/06/19 06:10 Alkaline Phosphatase 110 U/L (34-104) H 03/06/19 06:10 Troponin I 0.01 ng/mL (0.01-0.05) 02/15/19 23:40 Total Protein 6.9 gm/dL (6.0-8.3) 03/06/19 06:10 Albumin 3.5 gm/dL (3.7-5.3) L 03/06/19 06:10 Globulin 3.4 gm/dL 03/06/19 06:10 Albumin/Globulin Ratio 1.0 (1.0-1.8) 03/06/19 06:10 TSH 4.06 uIU/ml (0.34-5.60) 02/15/19 23:40 Vancomycin Trough 17.7 ug/mL (5-10) H 03/02/19 10:00 Random Vancomycin 4.7 ug/mL (5.0-40.0) L 02/16/19 21:15 - Physical Exam Vitals and I&O: Vital Signs Temp 98.2 F 03/16/19 20:00 Pulse 77 03/16/19 20:00 Resp 17 03/16/19 20:00 BP 124/87 03/16/19 20:00 Pulse Ox 100 03/16/19 20:00 Intake & Output 03/16/19 03/16/19 03/17/19 06:59 18:59 06:59 Intake Total 1660 Balance 1660 Weight (lbs) 44.633 kg 45.359 kg Intake: Oral 0 Tube Feeding 1060 Other 600 Other: # Voids 2 3 # Bowel Movements 1 Stool Characteristics Soft Soft Soft Brown Brown Brown Weight Source Bedscale Bedscale Active Medications: Current Medications Acetaminophen (Tylenol) 650 mg GT Q6H PRN PRN Reason: mild pain Stop: 04/17/19 18:42 Last Admin: 03/03/19 21:19 Dose: 650 mg Al Hydrox/Mg Hydrox/Simethicone (Maalox) 30 ml GT Q6HR PRN PRN Reason: GI DISTRESS Stop: 04/17/19 18:42 Albuterol Sulfate (Albuterol 2.5mg/3ml Neb Ud) 2.5 mg HHN Q2HR PRN PRN Reason: Shortness of Breath Stop: 04/17/19 18:42 Albuterol Sulfate (Albuterol 2.5mg/3ml Neb Ud) 2.5 mg HHN [id number] [facility] Stop: 04/17/19 18:59 Last Admin: 03/16/19 19:08 Dose: 2.5 mg Ascorbic Acid (Vitamin C) 500 mg GT Q12HR MADHURI Stop: 04/17/19 20:59 Last Admin: 03/16/19 20:36 Dose: 500 mg Bisacodyl (Dulcolax 10 Mg Supp) 10 mg RC DAILY PRN PRN Reason: Constipation Stop: 04/17/19 20:14 Budesonide (Pulmicort) 0.5 mg HHN BIDRT MADHURI Stop: 04/18/19 06:59 Last Admin: 03/16/19 19:08 Dose: 0.5 mg Carvedilol (Coreg) 6.25 mg GT Q12H MADHURI Stop: 06/20/19 21:59 Last Admin: 03/16/19 09:24 Dose: 6.25 mg [place] Oil/[place] Balsam/Trypsin (Venelex) 1 appl TP DAILY MADHURI Stop: 04/18/19 08:59 Last Admin: 03/16/19 09:27 Dose: 1 appl Docusate Sodium (Colace) 200 mg GT Q12H PRN PRN Reason: Constipation Stop: 04/17/19 20:14 Last Admin: 03/11/19 10:21 Dose: 200 mg Enalapril Maleate (Vasotec) 2.5 mg PO BID MADHURI Stop: 04/26/19 12:24 Last Admin: 03/16/19 16:40 Dose: 2.5 mg Glucagon (Glucagen) 1 mg IM PRN PRN PRN Reason: Blood Glucose less than 70 Stop: 04/17/19 20:14 Last Admin: 02/28/19 21:12 Dose: 1 mg Lactobacillus Rhamnosus (Culturelle 15b) 1 each GT DAILY MADHURI Stop: 04/18/19 08:59 Last Admin: 03/16/19 09:25 Dose: 1 each Lorazepam (Ativan) 1 mg IM Q6HR PRN; Protocol PRN Reason: Agitation Stop: 04/17/19 02:49 Last Admin: 03/05/19 11:37 Dose: 1 mg Lorazepam (Ativan) 0.5 mg PO Q4HR PRN; Protocol PRN Reason: Agitation Stop: 05/04/19 12:08 Magnesium Hydroxide (Milk Of Magnesia) 30 ml GT HS PRN PRN Reason: Constipation Stop: 04/17/19 18:42 Magnesium Oxide (Mag-Oxide) 400 mg GT BID MADHURI Stop: 04/18/19 08:59 Last Admin: 03/16/19 16:41 Dose: 400 mg Mirtazapine (Remeron) 7.5 mg PO HS MADHURI; Protocol Stop: 05/04/19 20:59 Last Admin: 03/16/19 20:35 Dose: 7.5 mg Ondansetron HCl (Zofran) 4 mg IV Q6H PRN PRN Reason: Nausea / Vomiting Stop: 04/28/19 06:20 Sodium Phosphate (Fleet Enema) 135 ml RC Q48HR PRN PRN Reason: Constipation Stop: 04/17/19 20:14 General: no acute distress, cachectic HEENT: atraumatic, normocephalic, PERRLA, EOMI Neck: supple, no thyromegaly, no lymphadenopathy Cardiovascular: S1S2, regular Lungs: clear to auscultation bilaterally, clear to percussion Abdomen: soft, no tender, no distended Extremities: no cyanosis, no clubbing, no edema Neurological: awake, alert Skin: intact - Procedures Procedures: Procedures Procedure Code Date INSERTION OF FEEDING DEVICE INTO STOMACH, PERC APPROACH [id number] 01/02/19 INSERTION OF INFUSION DEVICE INTO R LOW ARM, PERC APPROACH [id number] 01/02/19 INTRODUCTION OF NUTRITIONAL INTO PERIPH VEIN, PERC APPROACH [id number] 01/02/19 RESPIRATORY VENTILATION, LESS THAN 24 CONSECUTIVE HOURS [id number] 04/07/18 Infectious Disease Assmt/Plan - Assessment Assessment: 1. MRSA sepsis. treated 2. discitis/osteomyelitis of lumbar spine. 3. Dementia. 4. Dysphagia requiring G-tube placement, but she has pulled out G-tube 3 times already. 5. Dementia. 6. Protein-calorie malnutrition and failure to thrive. 7. Psychosis. 8. Chronic obstructive pulmonary disease. 9. Leukopenia. improved. - Plan Plan: Off antibiotics, dc plan. Nutritional Asmnt/Malnutr-PDOC - Dietary Evaluation Malnutrition Findings (Please click <Entered> for more info): Nutritional Asmnt/Malnutrition Start: 02/17/19 17: 23 Text: Status: Complete Freq: Protocol: Document 02/17/19 17:23 LCHENG (Rec: 02/17/19 17:28 ANMOLG [email or web address]) Nutritional Asmnt/Malnutrition Patient General Information Nutritional Screening High Risk Consult Diagnosis osteomyelitis, central line placement Pertinent Medical Hx/Surgical Hx HTN, asthma/COPD, PUD/GERd, osteomylitis, anemia, PEG/ Gtube, schizophrenia, bipolar Subjective Information Consult received for ricky 12 and open wound. Pt seen resting in bed at time of visit. TF off at this time. Current Diet Order/ Nutrition Support Glucerna 1.2 at 60ml/hr x 20hr Pertinent Medications vit C, colace, heperin, humalog, culturelle, mag-oxide , vancomycin Pertinent Labs 02/17 K 3.4, Cr 0.5, glucose 94 Nutritional Hx/Data Height 1.65 m Height (Calculated Centimeters) 165.1 Current Weight (lbs) 36.741 kg Weight (Calculated Kilograms) 36.7 Weight (Calculated Grams) 36698.0 [place] Body Weight 125 Body Mass Index (BMI) 13.4 Weight Status Underweight GI Symptoms GI Symptoms None Last BM none Difficult in: None Skin Integrity/Comment: left foot and bilat arms bruises pressure area Complex - Includes bone to sacrum, skin tear to right foot ricky 12 Estimated Nutritional Goals Calories/Kcals/Kg 25-30 Kcals Calculated 6397-7956 Protein g/k.2-1.4 Protein Calculated 68-80 Fluid: ml 1425-1710ml (1ml/kcal) Nutritional Problem 1. Problem Problem increased nutrition needs Etiology impaired skin integrity Signs/Symptoms: open wound to sacrum Intervention/Recommendation Comments 1. Continue with current TF regimen with Glucerna 1.2 at 60ml/hr x 20hr. It provides 1440kcal, 72g protein, 966ml free water, meeting 100% of nutritional needs. Add Sadi BID for wound healing. 2. Monitor TF rate, tolerance, wt, skin integrity and labs 3. F/U as high risk in 2-3 days Expected Outcomes/Goals Expected Outcomes/Goals 1. Pt to meet at least 90% of nutritional needs via nutrition support with tolerance 2. Wt stability, skin to remain intact, labs to approach WNL.
[2019-03-17] MEDS: Budesonide 0.5 Mg/2 mL Ud HHN SCH ×2 (06:54→19:45)
[2019-03-17] MEDS: Albuterol Nebulizer 2.5mg/3mL HHN SCH ×4 (06:55→19:45)
[2019-03-17] MEDS: Multivitamin w/ Minerals Tab GT SCH (09:07)
[2019-03-17] MEDS: Lactobacillus Rhamnosus GG 15 Billion CFU CAP.SPRINK GT SCH (09:07)
[2019-03-17] MEDS: Venelex 60gm Tube TP SCH (09:11)
--- NOTE | 2019-03-17 12:58 | General Progress Note ---
Subjective - Review of Systems Service Date: 03/17/19 Subjective: Patient exam aimed discussed with the nurse chart reviewed patient's clinically unchanged Patient has swelling of the left upper extremity patient's IV site infiltrated in the same arm DVT Objective - Results Result Diagrams: 03/06/19 06:10 03/06/19 06:10 Recent Labs: Laboratory Last Values WBC 5.9 Th/cmm (4.8-10.8) 03/06/19 06:10 RBC 3.88 Mil/cmm (3.80-5.10) 03/06/19 06:10 Hgb 12.5 gm/dL (12-16) 03/06/19 06:10 Hct 37.2 % (41.0-60) L 03/06/19 06:10 MCV 95.7 fl (81-100) 03/06/19 06:10 MCH 32.1 pg (27.0-31.0) H 03/06/19 06:10 MCHC Differential 33.5 pg (28.0-36.0) 03/06/19 06:10 RDW 13.1 % (11.5-20.0) 03/06/19 06:10 Plt Count 266 Th/cmm (150-400) 03/06/19 06:10 MPV 7.5 fl 03/06/19 06:10 Neutrophils % 72.3 % (40.0-80.0) 03/06/19 06:10 Lymphocytes % 16.1 % (20.0-50.0) L 03/06/19 06:10 Monocytes % 8.6 % (2.0-10.0) 03/06/19 06:10 Eosinophils % 2.4 % (0.0-5.0) 03/06/19 06:10 Basophils % 0.6 % (0.0-2.0) 03/06/19 06:10 PT 11.6 SECONDS (9.5-11.5) H 02/15/19 23:40 INR 1.13 (0.5-1.4) 02/15/19 23:40 PTT (Actin FS) 44.0 SECONDS (26.0-38.0) H 02/15/19 23:40 Sodium 143 mEq/L (136-145) 03/06/19 06:10 Potassium 3.5 mEq/L (3.5-5.1) 03/06/19 06:10 Chloride 103 mEq/L (98-107) 03/06/19 06:10 Carbon Dioxide 31.4 mEq/L (21.0-31.0) H 03/06/19 06:10 Anion Gap 12.1 (7.0-16.0) 03/06/19 06:10 BUN 29 mg/dL (7-25) H 03/06/19 06:10 Creatinine 0.5 mg/dL (0.6-1.2) L 03/06/19 06:10 Est GFR ( Amer) > 60.0 ml/min (>90) 03/06/19 06:10 Est GFR (Non-Af Amer) > 60.0 ml/min 03/06/19 06:10 BUN/Creatinine Ratio 58.0 03/06/19 06:10 Glucose 101 mg/dL (70-105) 03/06/19 06:10 POC Glucose 105 MG/DL (70 - 105) 03/04/19 09:16 Whole Bld Lactic Acid 0.56 mmol/L (0.60-1.99) L 02/16/19 00:00 Calcium 9.6 mg/dL (8.6-10.3) 03/06/19 06:10 Total Bilirubin 0.5 mg/dL (0.3-1.0) 03/06/19 06:10 AST 28 U/L (13-39) 03/06/19 06:10 ALT 40 U/L (7-52) 03/06/19 06:10 Alkaline Phosphatase 110 U/L (34-104) H 03/06/19 06:10 Troponin I 0.01 ng/mL (0.01-0.05) 02/15/19 23:40 Total Protein 6.9 gm/dL (6.0-8.3) 03/06/19 06:10 Albumin 3.5 gm/dL (3.7-5.3) L 03/06/19 06:10 Globulin 3.4 gm/dL 03/06/19 06:10 Albumin/Globulin Ratio 1.0 (1.0-1.8) 03/06/19 06:10 TSH 4.06 uIU/ml (0.34-5.60) 02/15/19 23:40 Vancomycin Trough 17.7 ug/mL (5-10) H 03/02/19 10:00 Random Vancomycin 4.7 ug/mL (5.0-40.0) L 02/16/19 21:15 - Physical Exam Vitals and I&O: Vital Signs Temp 97.4 F 03/17/19 11:18 Pulse 70 03/17/19 11:18 Resp 19 03/17/19 11:18 BP 146/85 03/17/19 11:18 Pulse Ox 91 03/17/19 10:38 Intake & Output 03/16/19 03/17/19 03/17/19 18:59 06:59 18:59 Intake Total 1660 Balance 1660 Weight (lbs) 45.359 kg 45.359 kg Intake: Oral 0 Tube Feeding 1060 Other 600 Other: # Voids 3 3 # Bowel Movements 1 Stool Characteristics Soft Soft Soft Brown Brown Brown Weight Source Bedscale Bedscale Active Medications: Current Medications Acetaminophen (Tylenol) 650 mg GT Q6H PRN PRN Reason: mild pain Stop: 04/17/19 18:42 Last Admin: 03/03/19 21:19 Dose: 650 mg Al Hydrox/Mg Hydrox/Simethicone (Maalox) 30 ml GT Q6HR PRN PRN Reason: GI DISTRESS Stop: 04/17/19 18:42 Albuterol Sulfate (Albuterol 2.5mg/3ml Neb Ud) 2.5 mg HHN Q2HR PRN PRN Reason: Shortness of Breath Stop: 04/17/19 18:42 Albuterol Sulfate (Albuterol 2.5mg/3ml Neb Ud) 2.5 mg HHN [id number] MADHURI Stop: 04/17/19 18:59 Last Admin: 03/17/19 10:32 Dose: 2.5 mg Ascorbic Acid (Vitamin C) 500 mg GT Q12HR MADHURI Stop: 04/17/19 20:59 Last Admin: 03/17/19 09:07 Dose: 500 mg Bisacodyl (Dulcolax 10 Mg Supp) 10 mg RC DAILY PRN PRN Reason: Constipation Stop: 04/17/19 20:14 Budesonide (Pulmicort) 0.5 mg HHN BIDRT MADHURI Stop: 04/18/19 06:59 Last Admin: 03/17/19 06:54 Dose: 0.5 mg Carvedilol (Coreg) 6.25 mg GT Q12H MADHURI Stop: 04/17/19 21:59 Last Admin: 03/17/19 10:49 Dose: 6.25 mg [place] Oil/[place] Balsam/Trypsin (Venelex) 1 appl TP DAILY MDAHURI Stop: 04/18/19 08:59 Last Admin: 03/17/19 09:11 Dose: 1 appl Docusate Sodium (Colace) 200 mg GT Q12H PRN PRN Reason: Constipation Stop: 04/17/19 20:14 Last Admin: 03/11/19 10:21 Dose: 200 mg Enalapril Maleate (Vasotec) 2.5 mg PO BID MADHURI Stop: 04/26/19 12:24 Last Admin: 03/17/19 09:08 Dose: 2.5 mg Glucagon (Glucagen) 1 mg IM PRN PRN PRN Reason: Blood Glucose less than 70 Stop: 04/17/19 20:14 Last Admin: 02/28/19 21:12 Dose: 1 mg Lactobacillus Rhamnosus (Culturelle 15b) 1 each GT DAILY MADHURI Stop: 04/18/19 08:59 Last Admin: 03/17/19 09:07 Dose: 1 each Lorazepam (Ativan) 0.5 mg PO Q4HR PRN; Protocol PRN Reason: Agitation Stop: 05/04/19 12:08 Magnesium Hydroxide (Milk Of Magnesia) 30 ml GT HS PRN PRN Reason: Constipation Stop: 04/17/19 18:42 Magnesium Oxide (Mag-Oxide) 400 mg GT BID MADHURI Stop: 04/18/19 08:59 Last Admin: 03/17/19 09:07 Dose: 400 mg Mirtazapine (Remeron) 7.5 mg PO HS MADHURI; Protocol Stop: 05/04/19 20:59 Last Admin: 03/16/19 20:35 Dose: 7.5 mg Ondansetron HCl (Zofran) 4 mg IV Q6H PRN PRN Reason: Nausea / Vomiting Stop: 04/28/19 06:20 Sodium Phosphate (Fleet Enema) 135 ml RC Q48HR PRN PRN Reason: Constipation Stop: 04/17/19 20:14 General: No acute distress HEENT: Mucous membr. moist/pink Neck: Supple, JVD, +2 carotid pulse wo bruit (flat) Cardiovascular: Regular rate, Normal S1, Normal S2, Systolic murmurs Lungs: Clear to auscultation, Normal air movement Abdomen: Bowel sounds, Soft, Other (G-tube) - Procedures Procedures: Procedures Procedure Code Date INSERTION OF FEEDING DEVICE INTO STOMACH, PERC APPROACH [id number] 01/02/19 INSERTION OF INFUSION DEVICE INTO R LOW ARM, PERC APPROACH [id number] 01/02/19 INTRODUCTION OF NUTRITIONAL INTO PERIPH VEIN, PERC APPROACH [id number] 01/02/19 RESPIRATORY VENTILATION, LESS THAN 24 CONSECUTIVE HOURS [id number] 04/07/18 Assessment/Plan - Assessment Assessment: Uncontrolled hypertension MRSA sepsis Osteomyelitis of the lumbosacral spine Discitis lumbosacral spine Dementia Dysphagia with PEG placement Protein calorie malnutrition Psychosis COPD DVT upper extremity - Plan Plan: Continue antihypertensive treatment continue antibiotics Venous duplex study Discharge planning Nutritional Asmnt/Malnutr-PDOC - Dietary Evaluation Malnutrition Findings (Please click <Entered> for more info): Nutritional Asmnt/Malnutrition Start: 02/17/19 17: 23 Text: Status: Complete Freq: Protocol: Document 02/17/19 17:23 LCHENG (Rec: 02/17/19 17:28 [email or web address]) Nutritional Asmnt/Malnutrition Patient General Information Nutritional Screening High Risk Consult Diagnosis osteomyelitis, central line placement Pertinent Medical Hx/Surgical Hx HTN, asthma/COPD, PUD/GERd, osteomylitis, anemia, PEG/ Gtube, schizophrenia, bipolar Subjective Information Consult received for ricky 12 and open wound. Pt seen resting in bed at time of visit. TF off at this time. Current Diet Order/ Nutrition Support Glucerna 1.2 at 60ml/hr x 20hr Pertinent Medications vit C, colace, heperin, humalog, culturelle, mag-oxide , vancomycin Pertinent Labs 02/17 K 3.4, Cr 0.5, glucose 94 Nutritional Hx/Data Height 1.65 m Height (Calculated Centimeters) 165.1 Current Weight (lbs) 36.741 kg Weight (Calculated Kilograms) 36.7 Weight (Calculated Grams) 64888.0 [place] Body Weight 125 Body Mass Index (BMI) 13.4 Weight Status Underweight GI Symptoms GI Symptoms None Last BM none Difficult in: None Skin Integrity/Comment: left foot and bilat arms bruises pressure area Complex - Includes bone to sacrum, skin tear to right foot ricky 12 Estimated Nutritional Goals Calories/Kcals/Kg 25-30 Kcals Calculated 8573-2834 Protein g/k.2-1.4 Protein Calculated 68-80 Fluid: ml 1425-1710ml (1ml/kcal) Nutritional Problem 1. Problem Problem increased nutrition needs Etiology impaired skin integrity Signs/Symptoms: open wound to sacrum Intervention/Recommendation Comments 1. Continue with current TF regimen with Glucerna 1.2 at 60ml/hr x 20hr. It provides 1440kcal, 72g protein, 966ml free water, meeting 100% of nutritional needs. Add Sadi BID for wound healing. 2. Monitor TF rate, tolerance, wt, skin integrity and labs 3. F/U as high risk in 2-3 days Expected Outcomes/Goals Expected Outcomes/Goals 1. Pt to meet at least 90% of nutritional needs via nutrition support with tolerance 2. Wt stability, skin to remain intact, labs to approach WNL.
[2019-03-18] MEDS: Albuterol Nebulizer 2.5mg/3mL HHN SCH ×4 (07:08→20:23)
[2019-03-18] MEDS: Budesonide 0.5 Mg/2 mL Ud HHN SCH ×2 (07:24→20:23)
[2019-03-18] MEDS: Multivitamin w/ Minerals Tab GT SCH (09:05)
[2019-03-18] MEDS: Lactobacillus Rhamnosus GG 15 Billion CFU CAP.SPRINK GT SCH (09:05)
[2019-03-18] MEDS: Venelex 60gm Tube TP SCH (09:06)
--- NOTE | 2019-03-18 11:50 | Internal Medicine Prog Note ---
Internal Medicine Subjective - Subjective Service Date: 03/18/19 Patient seen and examined:: without staff Patient is:: awake, interactive, confused, other (edema of the left upper extremity, dvt of upper extremity.) Patient Complaints of:: other (Hx of copd.) Per staff patient has:: no adverse event, no episodes of fall, confused Internal Medicine Objective - Results Result Diagrams: 03/06/19 06:10 03/06/19 06:10 Recent Labs: Laboratory Last Values WBC 5.9 Th/cmm (4.8-10.8) 03/06/19 06:10 RBC 3.88 Mil/cmm (3.80-5.10) 03/06/19 06:10 Hgb 12.5 gm/dL (12-16) 03/06/19 06:10 Hct 37.2 % (41.0-60) L 03/06/19 06:10 MCV 95.7 fl (81-100) 03/06/19 06:10 MCH 32.1 pg (27.0-31.0) H 03/06/19 06:10 MCHC Differential 33.5 pg (28.0-36.0) 03/06/19 06:10 RDW 13.1 % (11.5-20.0) 03/06/19 06:10 Plt Count 266 Th/cmm (150-400) 03/06/19 06:10 MPV 7.5 fl 03/06/19 06:10 Neutrophils % 72.3 % (40.0-80.0) 03/06/19 06:10 Lymphocytes % 16.1 % (20.0-50.0) L 03/06/19 06:10 Monocytes % 8.6 % (2.0-10.0) 03/06/19 06:10 Eosinophils % 2.4 % (0.0-5.0) 03/06/19 06:10 Basophils % 0.6 % (0.0-2.0) 03/06/19 06:10 PT 11.6 SECONDS (9.5-11.5) H 02/15/19 23:40 INR 1.13 (0.5-1.4) 02/15/19 23:40 PTT (Actin FS) 44.0 SECONDS (26.0-38.0) H 02/15/19 23:40 Sodium 143 mEq/L (136-145) 03/06/19 06:10 Potassium 3.5 mEq/L (3.5-5.1) 03/06/19 06:10 Chloride 103 mEq/L (98-107) 03/06/19 06:10 Carbon Dioxide 31.4 mEq/L (21.0-31.0) H 03/06/19 06:10 Anion Gap 12.1 (7.0-16.0) 03/06/19 06:10 BUN 29 mg/dL (7-25) H 03/06/19 06:10 Creatinine 0.5 mg/dL (0.6-1.2) L 03/06/19 06:10 Est GFR ( Amer) > 60.0 ml/min (>90) 03/06/19 06:10 Est GFR (Non-Af Amer) > 60.0 ml/min 03/06/19 06:10 BUN/Creatinine Ratio 58.0 03/06/19 06:10 Glucose 101 mg/dL (70-105) 03/06/19 06:10 POC Glucose 105 MG/DL (70 - 105) 03/04/19 09:16 Whole Bld Lactic Acid 0.56 mmol/L (0.60-1.99) L 02/16/19 00:00 Calcium 9.6 mg/dL (8.6-10.3) 03/06/19 06:10 Total Bilirubin 0.5 mg/dL (0.3-1.0) 03/06/19 06:10 AST 28 U/L (13-39) 03/06/19 06:10 ALT 40 U/L (7-52) 03/06/19 06:10 Alkaline Phosphatase 110 U/L (34-104) H 03/06/19 06:10 Troponin I 0.01 ng/mL (0.01-0.05) 02/15/19 23:40 Total Protein 6.9 gm/dL (6.0-8.3) 03/06/19 06:10 Albumin 3.5 gm/dL (3.7-5.3) L 03/06/19 06:10 Globulin 3.4 gm/dL 03/06/19 06:10 Albumin/Globulin Ratio 1.0 (1.0-1.8) 03/06/19 06:10 TSH 4.06 uIU/ml (0.34-5.60) 02/15/19 23:40 Vancomycin Trough 17.7 ug/mL (5-10) H 03/02/19 10:00 Random Vancomycin 4.7 ug/mL (5.0-40.0) L 02/16/19 21:15 - Physical Exam Vitals and I&O: Vital Signs Temp 97.8 F 03/18/19 11:49 Pulse 49 03/18/19 11:49 Resp 18 03/18/19 11:49 BP 118/86 03/18/19 11:49 Pulse Ox 99 03/18/19 11:47 Intake & Output 03/17/19 03/18/19 03/18/19 18:59 06:59 18:59 Intake Total 660 840 Output Total 1 2 Balance 659 838 Weight (lbs) 45.359 kg 43.545 kg Intake: Oral 0 Tube Feeding 660 540 Other 300 Output: Urine 2 Stool 1 0 Other: # Voids 3 1 # Bowel Movements 1 Stool Characteristics Soft Soft Brown Brown Weight Source Bedscale Bedscale Active Medications: Current Medications Acetaminophen (Tylenol) 650 mg GT Q6H PRN PRN Reason: mild pain Stop: 04/17/19 18:42 Last Admin: 03/03/19 21:19 Dose: 650 mg Al Hydrox/Mg Hydrox/Simethicone (Maalox) 30 ml GT Q6HR PRN PRN Reason: GI DISTRESS Stop: 04/17/19 18:42 Albuterol Sulfate (Albuterol 2.5mg/3ml Neb Ud) 2.5 mg HHN Q2HR PRN PRN Reason: Shortness of Breath Stop: 04/17/19 18:42 Albuterol Sulfate (Albuterol 2.5mg/3ml Neb Ud) 2.5 mg HHN [id number] MADHURI Stop: 04/17/19 18:59 Last Admin: 03/18/19 11:18 Dose: 2.5 mg Ascorbic Acid (Vitamin C) 500 mg GT Q12HR MADHURI Stop: 04/17/19 20:59 Last Admin: 03/18/19 09:05 Dose: 500 mg Bisacodyl (Dulcolax 10 Mg Supp) 10 mg RC DAILY PRN PRN Reason: Constipation Stop: 04/17/19 20:14 Budesonide (Pulmicort) 0.5 mg HHN BIDRT MADHURI Stop: 04/18/19 06:59 Last Admin: 03/18/19 07:24 Dose: 0.5 mg Carvedilol (Coreg) 6.25 mg GT Q12H MADHURI Stop: 04/17/19 21:59 Last Admin: 03/18/19 09:05 Dose: 6.25 mg [place] Oil/[place] Balsam/Trypsin (Venelex) 1 appl TP DAILY MADHURI Stop: 04/18/19 08:59 Last Admin: 03/18/19 09:06 Dose: 1 appl Docusate Sodium (Colace) 200 mg GT Q12H PRN PRN Reason: Constipation Stop: 04/17/19 20:14 Last Admin: 03/11/19 10:21 Dose: 200 mg Enalapril Maleate (Vasotec) 2.5 mg PO BID MADHURI Stop: 04/26/19 12:24 Last Admin: 03/18/19 09:05 Dose: 2.5 mg Glucagon (Glucagen) 1 mg IM PRN PRN PRN Reason: Blood Glucose less than 70 Stop: 04/17/19 20:14 Last Admin: 02/28/19 21:12 Dose: 1 mg Lactobacillus Rhamnosus (Culturelle 15b) 1 each GT DAILY MADHURI Stop: 04/18/19 08:59 Last Admin: 03/18/19 09:05 Dose: 1 each Lorazepam (Ativan) 0.5 mg PO Q4HR PRN; Protocol PRN Reason: Agitation Stop: 05/04/19 12:08 Last Admin: 03/18/19 01:46 Dose: 0.5 mg Magnesium Hydroxide (Milk Of Magnesia) 30 ml GT HS PRN PRN Reason: Constipation Stop: 04/17/19 18:42 Magnesium Oxide (Mag-Oxide) 400 mg GT BID MADHURI Stop: 04/18/19 08:59 Last Admin: 03/18/19 09:05 Dose: 400 mg Mirtazapine (Remeron) 7.5 mg PO HS MADHURI; Protocol Stop: 05/04/19 20:59 Last Admin: 03/17/19 21:48 Dose: 7.5 mg Ondansetron HCl (Zofran) 4 mg IV Q6H PRN PRN Reason: Nausea / Vomiting Stop: 04/28/19 06:20 Sodium Phosphate (Fleet Enema) 135 ml RC Q48HR PRN PRN Reason: Constipation Stop: 04/17/19 20:14 General: weak, demented HEENT: NC/AT, PERRLA Neck: Supple, No JVD Lungs: CTAB Cardiovascular: RRR, Normal S1 Abdomen: soft, non-tender Extremities: edema Neurological: no change, unable to follow command, other - Procedures Procedures: Procedures Procedure Code Date INSERTION OF FEEDING DEVICE INTO STOMACH, PERC APPROACH [id number] 01/02/19 INSERTION OF INFUSION DEVICE INTO R LOW ARM, PERC APPROACH [id number] 01/02/19 INTRODUCTION OF NUTRITIONAL INTO PERIPH VEIN, PERC APPROACH [id number] 01/02/19 RESPIRATORY VENTILATION, LESS THAN 24 CONSECUTIVE HOURS [id number] 04/07/18 Internal Medicine Assmt/Plan - Assessment Assessment: 1. MRSA sepsis. treated 2. discitis/osteomyelitis of lumbar spine. 3. Dementia. 4. Dysphagia requiring G-tube placement, but she has pulled out G-tube 3 times already. 5. Dementia. 6. Protein-calorie malnutrition and failure to thrive. 7. Psychosis. 8. Chronic obstructive pulmonary disease. 9. Leukopenia. improved. - Plan Plan: Off antibiotics, dc plan. Nutritional Asmnt/Malnutr-PDOC - Dietary Evaluation Malnutrition Findings (Please click <Entered> for more info): Nutritional Asmnt/Malnutrition Start: 02/17/19 17: 23 Text: Status: Complete Freq: Protocol: Document 02/17/19 17:23 LCHENG (Rec: 02/17/19 17:28 LCHENG [email or web address]) Nutritional Asmnt/Malnutrition Patient General Information Nutritional Screening High Risk Consult Diagnosis osteomyelitis, central line placement Pertinent Medical Hx/Surgical Hx HTN, asthma/COPD, PUD/GERd, osteomylitis, anemia, PEG/ Gtube, schizophrenia, bipolar Subjective Information Consult received for ricky 12 and open wound. Pt seen resting in bed at time of visit. TF off at this time. Current Diet Order/ Nutrition Support Glucerna 1.2 at 60ml/hr x 20hr Pertinent Medications vit C, colace, heperin, humalog, culturelle, mag-oxide , vancomycin Pertinent Labs 02/17 K 3.4, Cr 0.5, glucose 94 Nutritional Hx/Data Height 1.65 m Height (Calculated Centimeters) 165.1 Current Weight (lbs) 36.741 kg Weight (Calculated Kilograms) 36.7 Weight (Calculated Grams) 57052.0 [place] Body Weight 125 Body Mass Index (BMI) 13.4 Weight Status Underweight GI Symptoms GI Symptoms None Last BM none Difficult in: None Skin Integrity/Comment: left foot and bilat arms bruises pressure area Complex - Includes bone to sacrum, skin tear to right foot ricky 12 Estimated Nutritional Goals Calories/Kcals/Kg 25-30 Kcals Calculated 2941-2738 Protein g/k.2-1.4 Protein Calculated 68-80 Fluid: ml 1425-1710ml (1ml/kcal) Nutritional Problem 1. Problem Problem increased nutrition needs Etiology impaired skin integrity Signs/Symptoms: open wound to sacrum Intervention/Recommendation Comments 1. Continue with current TF regimen with Glucerna 1.2 at 60ml/hr x 20hr. It provides 1440kcal, 72g protein, 966ml free water, meeting 100% of nutritional needs. Add Sadi BID for wound healing. 2. Monitor TF rate, tolerance, wt, skin integrity and labs 3. F/U as high risk in 2-3 days Expected Outcomes/Goals Expected Outcomes/Goals 1. Pt to meet at least 90% of nutritional needs via nutrition support with tolerance 2. Wt stability, skin to remain intact, labs to approach WNL.
--- NOTE | 2019-03-18 13:52 | General Progress Note ---
Subjective - Review of Systems Service Date: 03/18/19 Subjective: Patient exam aimed discussed with the nurse chart reviewed patient's clinically unchanged Patient has swelling of the left upper extremity patient's IV site infiltrated in the same arm DVT Objective - Results Result Diagrams: 03/06/19 06:10 03/06/19 06:10 Recent Labs: Laboratory Last Values WBC 5.9 Th/cmm (4.8-10.8) 03/06/19 06:10 RBC 3.88 Mil/cmm (3.80-5.10) 03/06/19 06:10 Hgb 12.5 gm/dL (12-16) 03/06/19 06:10 Hct 37.2 % (41.0-60) L 03/06/19 06:10 MCV 95.7 fl (81-100) 03/06/19 06:10 MCH 32.1 pg (27.0-31.0) H 03/06/19 06:10 MCHC Differential 33.5 pg (28.0-36.0) 03/06/19 06:10 RDW 13.1 % (11.5-20.0) 03/06/19 06:10 Plt Count 266 Th/cmm (150-400) 03/06/19 06:10 MPV 7.5 fl 03/06/19 06:10 Neutrophils % 72.3 % (40.0-80.0) 03/06/19 06:10 Lymphocytes % 16.1 % (20.0-50.0) L 03/06/19 06:10 Monocytes % 8.6 % (2.0-10.0) 03/06/19 06:10 Eosinophils % 2.4 % (0.0-5.0) 03/06/19 06:10 Basophils % 0.6 % (0.0-2.0) 03/06/19 06:10 PT 11.6 SECONDS (9.5-11.5) H 02/15/19 23:40 INR 1.13 (0.5-1.4) 02/15/19 23:40 PTT (Actin FS) 44.0 SECONDS (26.0-38.0) H 02/15/19 23:40 Sodium 143 mEq/L (136-145) 03/06/19 06:10 Potassium 3.5 mEq/L (3.5-5.1) 03/06/19 06:10 Chloride 103 mEq/L (98-107) 03/06/19 06:10 Carbon Dioxide 31.4 mEq/L (21.0-31.0) H 03/06/19 06:10 Anion Gap 12.1 (7.0-16.0) 03/06/19 06:10 BUN 29 mg/dL (7-25) H 03/06/19 06:10 Creatinine 0.5 mg/dL (0.6-1.2) L 03/06/19 06:10 Est GFR ( Amer) > 60.0 ml/min (>90) 03/06/19 06:10 Est GFR (Non-Af Amer) > 60.0 ml/min 03/06/19 06:10 BUN/Creatinine Ratio 58.0 03/06/19 06:10 Glucose 101 mg/dL (70-105) 03/06/19 06:10 POC Glucose 105 MG/DL (70 - 105) 03/04/19 09:16 Whole Bld Lactic Acid 0.56 mmol/L (0.60-1.99) L 02/16/19 00:00 Calcium 9.6 mg/dL (8.6-10.3) 03/06/19 06:10 Total Bilirubin 0.5 mg/dL (0.3-1.0) 03/06/19 06:10 AST 28 U/L (13-39) 03/06/19 06:10 ALT 40 U/L (7-52) 03/06/19 06:10 Alkaline Phosphatase 110 U/L (34-104) H 03/06/19 06:10 Troponin I 0.01 ng/mL (0.01-0.05) 02/15/19 23:40 Total Protein 6.9 gm/dL (6.0-8.3) 03/06/19 06:10 Albumin 3.5 gm/dL (3.7-5.3) L 03/06/19 06:10 Globulin 3.4 gm/dL 03/06/19 06:10 Albumin/Globulin Ratio 1.0 (1.0-1.8) 03/06/19 06:10 TSH 4.06 uIU/ml (0.34-5.60) 02/15/19 23:40 Vancomycin Trough 17.7 ug/mL (5-10) H 03/02/19 10:00 Random Vancomycin 4.7 ug/mL (5.0-40.0) L 02/16/19 21:15 - Physical Exam Vitals and I&O: Vital Signs Temp 97.8 F 03/18/19 11:49 Pulse 49 03/18/19 11:49 Resp 18 03/18/19 11:49 BP 118/86 03/18/19 11:49 Pulse Ox 99 03/18/19 11:47 Intake & Output 03/17/19 03/18/19 03/18/19 18:59 06:59 18:59 Intake Total 660 840 Output Total 1 2 Balance 659 838 Weight (lbs) 45.359 kg 43.545 kg Intake: Oral 0 Tube Feeding 660 540 Other 300 Output: Urine 2 Stool 1 0 Other: # Voids 3 1 # Bowel Movements 1 Stool Characteristics Soft Soft Brown Brown Weight Source Bedscale Bedscale Active Medications: Current Medications Acetaminophen (Tylenol) 650 mg GT Q6H PRN PRN Reason: mild pain Stop: 04/17/19 18:42 Last Admin: 03/03/19 21:19 Dose: 650 mg Al Hydrox/Mg Hydrox/Simethicone (Maalox) 30 ml GT Q6HR PRN PRN Reason: GI DISTRESS Stop: 04/17/19 18:42 Albuterol Sulfate (Albuterol 2.5mg/3ml Neb Ud) 2.5 mg HHN Q2HR PRN PRN Reason: Shortness of Breath Stop: 04/17/19 18:42 Albuterol Sulfate (Albuterol 2.5mg/3ml Neb Ud) 2.5 mg HHN [id number] [facility] Stop: 04/17/19 18:59 Last Admin: 03/18/19 11:18 Dose: 2.5 mg Ascorbic Acid (Vitamin C) 500 mg GT Q12HR MADHURI Stop: 04/17/19 20:59 Last Admin: 03/18/19 09:05 Dose: 500 mg Bisacodyl (Dulcolax 10 Mg Supp) 10 mg RC DAILY PRN PRN Reason: Constipation Stop: 04/17/19 20:14 Budesonide (Pulmicort) 0.5 mg HHN BIDRT [facility] Stop: 04/18/19 06:59 Last Admin: 03/18/19 07:24 Dose: 0.5 mg Carvedilol (Coreg) 6.25 mg GT Q12H MADHURI Stop: 04/17/19 21:59 Last Admin: 03/18/19 09:05 Dose: 6.25 mg [place] Oil/[place] Balsam/Trypsin (Venelex) 1 appl TP DAILY MADHURI Stop: 04/18/19 08:59 Last Admin: 03/18/19 09:06 Dose: 1 appl Docusate Sodium (Colace) 200 mg GT Q12H PRN PRN Reason: Constipation Stop: 04/17/19 20:14 Last Admin: 03/11/19 10:21 Dose: 200 mg Enalapril Maleate (Vasotec) 2.5 mg PO BID [facility] Stop: 04/26/19 12:24 Last Admin: 03/18/19 09:05 Dose: 2.5 mg Glucagon (Glucagen) 1 mg IM PRN PRN PRN Reason: Blood Glucose less than 70 Stop: 04/17/19 20:14 Last Admin: 02/28/19 21:12 Dose: 1 mg Lactobacillus Rhamnosus (Culturelle 15b) 1 each GT DAILY MADHURI Stop: 04/18/19 08:59 Last Admin: 03/18/19 09:05 Dose: 1 each Lorazepam (Ativan) 0.5 mg PO Q4HR PRN; Protocol PRN Reason: Agitation Stop: 05/04/19 12:08 Last Admin: 03/18/19 01:46 Dose: 0.5 mg Magnesium Hydroxide (Milk Of Magnesia) 30 ml GT HS PRN PRN Reason: Constipation Stop: 04/17/19 18:42 Magnesium Oxide (Mag-Oxide) 400 mg GT BID MADHURI Stop: 04/18/19 08:59 Last Admin: 03/18/19 09:05 Dose: 400 mg Mirtazapine (Remeron) 7.5 mg PO HS MADHURI; Protocol Stop: 05/04/19 20:59 Last Admin: 03/17/19 21:48 Dose: 7.5 mg Ondansetron HCl (Zofran) 4 mg IV Q6H PRN PRN Reason: Nausea / Vomiting Stop: 04/28/19 06:20 Sodium Phosphate (Fleet Enema) 135 ml RC Q48HR PRN PRN Reason: Constipation Stop: 04/17/19 20:14 General: No acute distress HEENT: Mucous membr. moist/pink Neck: Supple, JVD, +2 carotid pulse wo bruit (flat) Cardiovascular: Regular rate, Normal S1, Normal S2, Systolic murmurs Lungs: Clear to auscultation, Normal air movement Abdomen: Bowel sounds, Soft, Other (G-tube) - Procedures Procedures: Procedures Procedure Code Date INSERTION OF FEEDING DEVICE INTO STOMACH, PERC APPROACH [id number] 01/02/19 INSERTION OF INFUSION DEVICE INTO R LOW ARM, PERC APPROACH [id number] 01/02/19 INTRODUCTION OF NUTRITIONAL INTO PERIPH VEIN, PERC APPROACH [id number] 01/02/19 RESPIRATORY VENTILATION, LESS THAN 24 CONSECUTIVE HOURS [id number] 04/07/18 Assessment/Plan - Assessment Assessment: Uncontrolled hypertension MRSA sepsis Osteomyelitis of the lumbosacral spine Discitis lumbosacral spine Dementia Dysphagia with PEG placement Protein calorie malnutrition Psychosis COPD DVT upper extremity - Plan Plan: Continue antihypertensive treatment continue antibiotics Venous duplex study Discharge planning Nutritional Asmnt/Malnutr-PDOC - Dietary Evaluation Malnutrition Findings (Please click <Entered> for more info): Nutritional Asmnt/Malnutrition Start: 02/17/19 17: 23 Text: Status: Complete Freq: Protocol: Document 02/17/19 17:23 LCHENG (Rec: 02/17/19 17:28 [email or web address]) Nutritional Asmnt/Malnutrition Patient General Information Nutritional Screening High Risk Consult Diagnosis osteomyelitis, central line placement Pertinent Medical Hx/Surgical Hx HTN, asthma/COPD, PUD/GERd, osteomylitis, anemia, PEG/ Gtube, schizophrenia, bipolar Subjective Information Consult received for ricky 12 and open wound. Pt seen resting in bed at time of visit. TF off at this time. Current Diet Order/ Nutrition Support Glucerna 1.2 at 60ml/hr x 20hr Pertinent Medications vit C, colace, heperin, humalog, culturelle, mag-oxide , vancomycin Pertinent Labs 02/17 K 3.4, Cr 0.5, glucose 94 Nutritional Hx/Data Height 1.65 m Height (Calculated Centimeters) 165.1 Current Weight (lbs) 36.741 kg Weight (Calculated Kilograms) 36.7 Weight (Calculated Grams) 82820.0 [place] Body Weight 125 Body Mass Index (BMI) 13.4 Weight Status Underweight GI Symptoms GI Symptoms None Last BM none Difficult in: None Skin Integrity/Comment: left foot and bilat arms bruises pressure area Complex - Includes bone to sacrum, skin tear to right foot ricky 12 Estimated Nutritional Goals Calories/Kcals/Kg 25-30 Kcals Calculated 3703-1704 Protein g/k.2-1.4 Protein Calculated 68-80 Fluid: ml 1425-1710ml (1ml/kcal) Nutritional Problem 1. Problem Problem increased nutrition needs Etiology impaired skin integrity Signs/Symptoms: open wound to sacrum Intervention/Recommendation Comments 1. Continue with current TF regimen with Glucerna 1.2 at 60ml/hr x 20hr. It provides 1440kcal, 72g protein, 966ml free water, meeting 100% of nutritional needs. Add Sadi BID for wound healing. 2. Monitor TF rate, tolerance, wt, skin integrity and labs 3. F/U as high risk in 2-3 days Expected Outcomes/Goals Expected Outcomes/Goals 1. Pt to meet at least 90% of nutritional needs via nutrition support with tolerance 2. Wt stability, skin to remain intact, labs to approach WNL.
--- NOTE | 2019-03-19 01:48 | Progress Notes ---
DATE: 03/18/2019 SUBJECTIVE: Case was discussed with staff of the patient, reviewed records. The patient continues to be confused, unable to talk. She continues to be medically not clear. She is awake into active, but confused. The patient with left upper extremity edema and deep thrombosis of the upper extremity with a history of COPD. The patient in general is responding better to redirection. She is sleeping better. She has a G-tube. No side effects with the medication, no sedation, and no nausea. Thank you very much for allowing me to participate in the care of this most interesting lady. JOB# [id number]
[2019-03-19] MEDS: Albuterol Nebulizer 2.5mg/3mL HHN SCH ×4 (06:40→18:25)
[2019-03-19] MEDS: Budesonide 0.5 Mg/2 mL Ud HHN SCH ×2 (06:40→18:25)
[2019-03-19] MEDS: Lactobacillus Rhamnosus GG 15 Billion CFU CAP.SPRINK GT SCH (08:59)
[2019-03-19] MEDS: Multivitamin w/ Minerals Tab GT SCH (09:00)
[2019-03-19] MEDS: Venelex 60gm Tube TP SCH (10:36)
--- NOTE | 2019-03-19 11:02 | Internal Medicine Prog Note ---
Internal Medicine Subjective - Subjective Service Date: 03/19/19 Patient seen and examined:: with staff Patient is:: awake, interactive, confused, other (edema of the left upper extremity, dvt of upper extremity.) Patient Complaints of:: other (Hx of copd.) Per staff patient has:: no adverse event, no episodes of fall, confused Internal Medicine Objective - Results Result Diagrams: 03/06/19 06:10 03/06/19 06:10 Recent Labs: Laboratory Last Values WBC 5.9 Th/cmm (4.8-10.8) 03/06/19 06:10 RBC 3.88 Mil/cmm (3.80-5.10) 03/06/19 06:10 Hgb 12.5 gm/dL (12-16) 03/06/19 06:10 Hct 37.2 % (41.0-60) L 03/06/19 06:10 MCV 95.7 fl (81-100) 03/06/19 06:10 MCH 32.1 pg (27.0-31.0) H 03/06/19 06:10 MCHC Differential 33.5 pg (28.0-36.0) 03/06/19 06:10 RDW 13.1 % (11.5-20.0) 03/06/19 06:10 Plt Count 266 Th/cmm (150-400) 03/06/19 06:10 MPV 7.5 fl 03/06/19 06:10 Neutrophils % 72.3 % (40.0-80.0) 03/06/19 06:10 Lymphocytes % 16.1 % (20.0-50.0) L 03/06/19 06:10 Monocytes % 8.6 % (2.0-10.0) 03/06/19 06:10 Eosinophils % 2.4 % (0.0-5.0) 03/06/19 06:10 Basophils % 0.6 % (0.0-2.0) 03/06/19 06:10 PT 11.6 SECONDS (9.5-11.5) H 02/15/19 23:40 INR 1.13 (0.5-1.4) 02/15/19 23:40 PTT (Actin FS) 44.0 SECONDS (26.0-38.0) H 02/15/19 23:40 Sodium 143 mEq/L (136-145) 03/06/19 06:10 Potassium 3.5 mEq/L (3.5-5.1) 03/06/19 06:10 Chloride 103 mEq/L (98-107) 03/06/19 06:10 Carbon Dioxide 31.4 mEq/L (21.0-31.0) H 03/06/19 06:10 Anion Gap 12.1 (7.0-16.0) 03/06/19 06:10 BUN 29 mg/dL (7-25) H 03/06/19 06:10 Creatinine 0.5 mg/dL (0.6-1.2) L 03/06/19 06:10 Est GFR ( Amer) > 60.0 ml/min (>90) 03/06/19 06:10 Est GFR (Non-Af Amer) > 60.0 ml/min 03/06/19 06:10 BUN/Creatinine Ratio 58.0 03/06/19 06:10 Glucose 101 mg/dL (70-105) 03/06/19 06:10 POC Glucose 105 MG/DL (70 - 105) 03/04/19 09:16 Whole Bld Lactic Acid 0.56 mmol/L (0.60-1.99) L 02/16/19 00:00 Calcium 9.6 mg/dL (8.6-10.3) 03/06/19 06:10 Total Bilirubin 0.5 mg/dL (0.3-1.0) 03/06/19 06:10 AST 28 U/L (13-39) 03/06/19 06:10 ALT 40 U/L (7-52) 03/06/19 06:10 Alkaline Phosphatase 110 U/L (34-104) H 03/06/19 06:10 Troponin I 0.01 ng/mL (0.01-0.05) 02/15/19 23:40 Total Protein 6.9 gm/dL (6.0-8.3) 03/06/19 06:10 Albumin 3.5 gm/dL (3.7-5.3) L 03/06/19 06:10 Globulin 3.4 gm/dL 03/06/19 06:10 Albumin/Globulin Ratio 1.0 (1.0-1.8) 03/06/19 06:10 TSH 4.06 uIU/ml (0.34-5.60) 02/15/19 23:40 Vancomycin Trough 17.7 ug/mL (5-10) H 03/02/19 10:00 Random Vancomycin 4.7 ug/mL (5.0-40.0) L 02/16/19 21:15 - Physical Exam Vitals and I&O: Vital Signs Temp 97.7 F 03/19/19 08:00 Pulse 75 03/19/19 10:13 Resp 18 03/19/19 10:13 BP 141/91 03/19/19 10:03 Pulse Ox 98 03/19/19 10:13 Intake & Output 03/18/19 03/19/19 03/19/19 18:59 06:59 18:59 Intake Total 600 Output Total 3 Balance 600 -3 Weight (lbs) 45.359 kg 45.359 kg Intake: Tube Feeding 600 Output: Urine 3 Other: # Voids 3 # Bowel Movements 0 Stool Characteristics Soft Soft Soft Brown Brown Brown Weight Source Bedscale Bedscale Active Medications: Current Medications Acetaminophen (Tylenol) 650 mg GT Q6H PRN PRN Reason: mild pain Stop: 04/17/19 18:42 Last Admin: 03/03/19 21:19 Dose: 650 mg Al Hydrox/Mg Hydrox/Simethicone (Maalox) 30 ml GT Q6HR PRN PRN Reason: GI DISTRESS Stop: 04/17/19 18:42 Albuterol Sulfate (Albuterol 2.5mg/3ml Neb Ud) 2.5 mg HHN Q2HR PRN PRN Reason: Shortness of Breath Stop: 04/17/19 18:42 Albuterol Sulfate (Albuterol 2.5mg/3ml Neb Ud) 2.5 mg HHN [id number] MADHURI Stop: 04/17/19 18:59 Last Admin: 03/19/19 10:13 Dose: 2.5 mg Ascorbic Acid (Vitamin C) 500 mg GT Q12HR MADHURI Stop: 04/17/19 20:59 Last Admin: 03/19/19 08:59 Dose: 500 mg Bisacodyl (Dulcolax 10 Mg Supp) 10 mg RC DAILY PRN PRN Reason: Constipation Stop: 04/17/19 20:14 Budesonide (Pulmicort) 0.5 mg HHN BIDRT MADHURI Stop: 04/18/19 06:59 Last Admin: 03/19/19 06:40 Dose: 0.5 mg Carvedilol (Coreg) 6.25 mg GT Q12H MADHURI Stop: 04/17/19 21:59 Last Admin: 03/19/19 10:03 Dose: 6.25 mg [place] Oil/[place] Balsam/Trypsin (Venelex) 1 appl TP DAILY MADHURI Stop: 04/18/19 08:59 Last Admin: 03/19/19 10:36 Dose: 1 appl Docusate Sodium (Colace) 200 mg GT Q12H PRN PRN Reason: Constipation Stop: 04/17/19 20:14 Last Admin: 03/11/19 10:21 Dose: 200 mg Enalapril Maleate (Vasotec) 2.5 mg PO BID MADHURI Stop: 04/26/19 12:24 Last Admin: 03/19/19 09:00 Dose: 2.5 mg Glucagon (Glucagen) 1 mg IM PRN PRN PRN Reason: Blood Glucose less than 70 Stop: 04/17/19 20:14 Last Admin: 02/28/19 21:12 Dose: 1 mg Lactobacillus Rhamnosus (Culturelle 15b) 1 each GT DAILY MADHURI Stop: 04/18/19 08:59 Last Admin: 03/19/19 08:59 Dose: 1 each Lorazepam (Ativan) 0.5 mg PO Q4HR PRN; Protocol PRN Reason: Agitation Stop: 05/04/19 12:08 Last Admin: 03/18/19 01:46 Dose: 0.5 mg Magnesium Hydroxide (Milk Of Magnesia) 30 ml GT HS PRN PRN Reason: Constipation Stop: 04/17/19 18:42 Magnesium Oxide (Mag-Oxide) 400 mg GT BID MADHURI Stop: 04/18/19 08:59 Last Admin: 03/19/19 08:59 Dose: 400 mg Mirtazapine (Remeron) 7.5 mg PO HS MADHURI; Protocol Stop: 05/04/19 20:59 Last Admin: 03/18/19 22:35 Dose: 7.5 mg Ondansetron HCl (Zofran) 4 mg IV Q6H PRN PRN Reason: Nausea / Vomiting Stop: 04/28/19 06:20 Sodium Phosphate (Fleet Enema) 135 ml RC Q48HR PRN PRN Reason: Constipation Stop: 04/17/19 20:14 Physical Exam: 58 y/o female patient is still having swelling of the left upper extremity, Dvt of upper extremity which patient is getting treatment for and has been improving. General: weak, demented HEENT: NC/AT, PERRLA Neck: Supple, No JVD Lungs: CTAB Cardiovascular: RRR, Normal S1 Abdomen: soft, non-tender Extremities: edema Neurological: no change, unable to follow command, other - Procedures Procedures: Procedures Procedure Code Date INSERTION OF FEEDING DEVICE INTO STOMACH, PERC APPROACH [id number] 01/02/19 INSERTION OF INFUSION DEVICE INTO R LOW ARM, PERC APPROACH [id number] 01/02/19 INTRODUCTION OF NUTRITIONAL INTO PERIPH VEIN, PERC APPROACH [id number] 01/02/19 RESPIRATORY VENTILATION, LESS THAN 24 CONSECUTIVE HOURS [id number] 04/07/18 Internal Medicine Assmt/Plan - Assessment Assessment: Edema of Left upper extremity Hypertension. MRSA sepsis, treated Diskitis. Osteomyelitis of lumbar spine Anemia. Protein Malnutrition. S/p Deccanulation. S/p Percutaneous Endoscopic gastrostomy. Less agitated Dementia Psychosis Chronic Copd Protein-calorie malnutrition Failure to thrive DVT of upper extremity - Plan Plan: Continuation of care Continue present meds as directed Monitor Pain Continue to follow up with Psych Monitor Vitals, Labs and Pain management Fall precaution Continue present care management Nutritional Asmnt/Malnutr-PDOC - Dietary Evaluation Malnutrition Findings (Please click <Entered> for more info): Nutritional Asmnt/Malnutrition Start: 02/17/19 17: 23 Text: Status: Complete Freq: Protocol: Document 02/17/19 17:23 LCHENG (Rec: 02/17/19 17:28 [email or web address]) Nutritional Asmnt/Malnutrition Patient General Information Nutritional Screening High Risk Consult Diagnosis osteomyelitis, central line placement Pertinent Medical Hx/Surgical Hx HTN, asthma/COPD, PUD/GERd, osteomylitis, anemia, PEG/ Gtube, schizophrenia, bipolar Subjective Information Consult received for ricky 12 and open wound. Pt seen resting in bed at time of visit. TF off at this time. Current Diet Order/ Nutrition Support Glucerna 1.2 at 60ml/hr x 20hr Pertinent Medications vit C, colace, heperin, humalog, culturelle, mag-oxide , vancomycin Pertinent Labs 02/17 K 3.4, Cr 0.5, glucose 94 Nutritional Hx/Data Height 1.65 m Height (Calculated Centimeters) 165.1 Current Weight (lbs) 36.741 kg Weight (Calculated Kilograms) 36.7 Weight (Calculated Grams) 45707.0 [place] Body Weight 125 Body Mass Index (BMI) 13.4 Weight Status Underweight GI Symptoms GI Symptoms None Last BM none Difficult in: None Skin Integrity/Comment: left foot and bilat arms bruises pressure area Complex - Includes bone to sacrum, skin tear to right foot ricky 12 Estimated Nutritional Goals Calories/Kcals/Kg 25-30 Kcals Calculated 5896-1178 Protein g/k.2-1.4 Protein Calculated 68-80 Fluid: ml 1425-1710ml (1ml/kcal) Nutritional Problem 1. Problem Problem increased nutrition needs Etiology impaired skin integrity Signs/Symptoms: open wound to sacrum Intervention/Recommendation Comments 1. Continue with current TF regimen with Glucerna 1.2 at 60ml/hr x 20hr. It provides 1440kcal, 72g protein, 966ml free water, meeting 100% of nutritional needs. Add Sadi BID for wound healing. 2. Monitor TF rate, tolerance, wt, skin integrity and labs 3. F/U as high risk in 2-3 days Expected Outcomes/Goals Expected Outcomes/Goals 1. Pt to meet at least 90% of nutritional needs via nutrition support with tolerance 2. Wt stability, skin to remain intact, labs to approach WNL.
--- NOTE | 2019-03-19 17:28 | General Progress Note ---
Subjective - Review of Systems Service Date: 03/19/19 Subjective: Patient exam aimed discussed with the nurse chart reviewed patient's clinically unchanged Patient has swelling of the left upper extremity patient's IV site infiltrated in the same arm DVT Objective - Results Result Diagrams: 03/06/19 06:10 03/06/19 06:10 Recent Labs: Laboratory Last Values WBC 5.9 Th/cmm (4.8-10.8) 03/06/19 06:10 RBC 3.88 Mil/cmm (3.80-5.10) 03/06/19 06:10 Hgb 12.5 gm/dL (12-16) 03/06/19 06:10 Hct 37.2 % (41.0-60) L 03/06/19 06:10 MCV 95.7 fl (81-100) 03/06/19 06:10 MCH 32.1 pg (27.0-31.0) H 03/06/19 06:10 MCHC Differential 33.5 pg (28.0-36.0) 03/06/19 06:10 RDW 13.1 % (11.5-20.0) 03/06/19 06:10 Plt Count 266 Th/cmm (150-400) 03/06/19 06:10 MPV 7.5 fl 03/06/19 06:10 Neutrophils % 72.3 % (40.0-80.0) 03/06/19 06:10 Lymphocytes % 16.1 % (20.0-50.0) L 03/06/19 06:10 Monocytes % 8.6 % (2.0-10.0) 03/06/19 06:10 Eosinophils % 2.4 % (0.0-5.0) 03/06/19 06:10 Basophils % 0.6 % (0.0-2.0) 03/06/19 06:10 PT 11.6 SECONDS (9.5-11.5) H 02/15/19 23:40 INR 1.13 (0.5-1.4) 02/15/19 23:40 PTT (Actin FS) 44.0 SECONDS (26.0-38.0) H 02/15/19 23:40 Sodium 143 mEq/L (136-145) 03/06/19 06:10 Potassium 3.5 mEq/L (3.5-5.1) 03/06/19 06:10 Chloride 103 mEq/L (98-107) 03/06/19 06:10 Carbon Dioxide 31.4 mEq/L (21.0-31.0) H 03/06/19 06:10 Anion Gap 12.1 (7.0-16.0) 03/06/19 06:10 BUN 29 mg/dL (7-25) H 03/06/19 06:10 Creatinine 0.5 mg/dL (0.6-1.2) L 03/06/19 06:10 Est GFR ( Amer) > 60.0 ml/min (>90) 03/06/19 06:10 Est GFR (Non-Af Amer) > 60.0 ml/min 03/06/19 06:10 BUN/Creatinine Ratio 58.0 03/06/19 06:10 Glucose 101 mg/dL (70-105) 03/06/19 06:10 POC Glucose 105 MG/DL (70 - 105) 03/04/19 09:16 Whole Bld Lactic Acid 0.56 mmol/L (0.60-1.99) L 02/16/19 00:00 Calcium 9.6 mg/dL (8.6-10.3) 03/06/19 06:10 Total Bilirubin 0.5 mg/dL (0.3-1.0) 03/06/19 06:10 AST 28 U/L (13-39) 03/06/19 06:10 ALT 40 U/L (7-52) 03/06/19 06:10 Alkaline Phosphatase 110 U/L (34-104) H 03/06/19 06:10 Troponin I 0.01 ng/mL (0.01-0.05) 02/15/19 23:40 Total Protein 6.9 gm/dL (6.0-8.3) 03/06/19 06:10 Albumin 3.5 gm/dL (3.7-5.3) L 03/06/19 06:10 Globulin 3.4 gm/dL 03/06/19 06:10 Albumin/Globulin Ratio 1.0 (1.0-1.8) 03/06/19 06:10 TSH 4.06 uIU/ml (0.34-5.60) 02/15/19 23:40 Vancomycin Trough 17.7 ug/mL (5-10) H 03/02/19 10:00 Random Vancomycin 4.7 ug/mL (5.0-40.0) L 02/16/19 21:15 - Physical Exam Vitals and I&O: Vital Signs Temp 98.1 F 03/19/19 15:47 Pulse 61 03/19/19 17:01 Resp 18 03/19/19 15:47 BP 131/71 03/19/19 17:01 Pulse Ox 97 03/19/19 15:47 Intake & Output 03/18/19 03/19/19 03/19/19 18:59 06:59 18:59 Intake Total 600 Output Total 3 Balance 600 -3 Weight (lbs) 45.359 kg 45.359 kg Intake: Tube Feeding 600 Output: Urine 3 Other: # Voids 3 # Bowel Movements 0 Stool Characteristics Soft Soft Soft Brown Brown Brown Weight Source Bedscale Bedscale Active Medications: Current Medications Acetaminophen (Tylenol) 650 mg GT Q6H PRN PRN Reason: mild pain Stop: 04/17/19 18:42 Last Admin: 03/03/19 21:19 Dose: 650 mg Al Hydrox/Mg Hydrox/Simethicone (Maalox) 30 ml GT Q6HR PRN PRN Reason: GI DISTRESS Stop: 04/17/19 18:42 Albuterol Sulfate (Albuterol 2.5mg/3ml Neb Ud) 2.5 mg HHN Q2HR PRN PRN Reason: Shortness of Breath Stop: 04/17/19 18:42 Albuterol Sulfate (Albuterol 2.5mg/3ml Neb Ud) 2.5 mg HHN [id number] MADHURI Stop: 04/17/19 18:59 Last Admin: 03/19/19 14:45 Dose: 2.5 mg Ascorbic Acid (Vitamin C) 500 mg GT Q12HR MADHURI Stop: 04/17/19 20:59 Last Admin: 03/19/19 08:59 Dose: 500 mg Bisacodyl (Dulcolax 10 Mg Supp) 10 mg RC DAILY PRN PRN Reason: Constipation Stop: 04/17/19 20:14 Budesonide (Pulmicort) 0.5 mg HHN BIDRT MADHURI Stop: 04/18/19 06:59 Last Admin: 03/19/19 06:40 Dose: 0.5 mg Carvedilol (Coreg) 6.25 mg GT Q12H MADHURI Stop: 04/17/19 21:59 Last Admin: 03/19/19 10:03 Dose: 6.25 mg [place] Oil/[place] Balsam/Trypsin (Venelex) 1 appl TP DAILY MADHURI Stop: 04/18/19 08:59 Last Admin: 03/19/19 10:36 Dose: 1 appl Docusate Sodium (Colace) 200 mg GT Q12H PRN PRN Reason: Constipation Stop: 04/17/19 20:14 Last Admin: 03/11/19 10:21 Dose: 200 mg Enalapril Maleate (Vasotec) 2.5 mg PO BID MADHURI Stop: 04/26/19 12:24 Last Admin: 03/19/19 17:01 Dose: 2.5 mg Glucagon (Glucagen) 1 mg IM PRN PRN PRN Reason: Blood Glucose less than 70 Stop: 04/17/19 20:14 Last Admin: 02/28/19 21:12 Dose: 1 mg Lactobacillus Rhamnosus (Culturelle 15b) 1 each GT DAILY MADHURI Stop: 04/18/19 08:59 Last Admin: 03/19/19 08:59 Dose: 1 each Lorazepam (Ativan) 0.5 mg PO Q4HR PRN; Protocol PRN Reason: Agitation Stop: 05/04/19 12:08 Last Admin: 03/18/19 01:46 Dose: 0.5 mg Magnesium Hydroxide (Milk Of Magnesia) 30 ml GT HS PRN PRN Reason: Constipation Stop: 04/17/19 18:42 Magnesium Oxide (Mag-Oxide) 400 mg GT BID MADHURI Stop: 04/18/19 08:59 Last Admin: 03/19/19 17:00 Dose: 400 mg Mirtazapine (Remeron) 7.5 mg PO HS MADHURI; Protocol Stop: 05/04/19 20:59 Last Admin: 03/18/19 22:35 Dose: 7.5 mg Ondansetron HCl (Zofran) 4 mg IV Q6H PRN PRN Reason: Nausea / Vomiting Stop: 04/28/19 06:20 Sodium Phosphate (Fleet Enema) 135 ml RC Q48HR PRN PRN Reason: Constipation Stop: 04/17/19 20:14 General: No acute distress HEENT: Mucous membr. moist/pink Neck: Supple, JVD, +2 carotid pulse wo bruit (flat) Cardiovascular: Regular rate, Normal S1, Normal S2, Systolic murmurs Lungs: Clear to auscultation, Normal air movement Abdomen: Bowel sounds, Soft, Other (G-tube) - Procedures Procedures: Procedures Procedure Code Date INSERTION OF FEEDING DEVICE INTO STOMACH, PERC APPROACH [id number] 01/02/19 INSERTION OF INFUSION DEVICE INTO R LOW ARM, PERC APPROACH [id number] 01/02/19 INTRODUCTION OF NUTRITIONAL INTO PERIPH VEIN, PERC APPROACH [id number] 01/02/19 RESPIRATORY VENTILATION, LESS THAN 24 CONSECUTIVE HOURS [id number] 04/07/18 Assessment/Plan - Assessment Assessment: Uncontrolled hypertension MRSA sepsis Osteomyelitis of the lumbosacral spine Discitis lumbosacral spine Dementia Dysphagia with PEG placement Protein calorie malnutrition Psychosis COPD DVT upper extremity - Plan Plan: Continue antihypertensive treatment continue antibiotics Venous duplex study Discharge planning Nutritional Asmnt/Malnutr-PDOC - Dietary Evaluation Malnutrition Findings (Please click <Entered> for more info): Nutritional Asmnt/Malnutrition Start: 02/17/19 17: 23 Text: Status: Complete Freq: Protocol: Document 02/17/19 17:23 LCHENG (Rec: 02/17/19 17:28 [email or web address]) Nutritional Asmnt/Malnutrition Patient General Information Nutritional Screening High Risk Consult Diagnosis osteomyelitis, central line placement Pertinent Medical Hx/Surgical Hx HTN, asthma/COPD, PUD/GERd, osteomylitis, anemia, PEG/ Gtube, schizophrenia, bipolar Subjective Information Consult received for ricky 12 and open wound. Pt seen resting in bed at time of visit. TF off at this time. Current Diet Order/ Nutrition Support Glucerna 1.2 at 60ml/hr x 20hr Pertinent Medications vit C, colace, heperin, humalog, culturelle, mag-oxide , vancomycin Pertinent Labs 02/17 K 3.4, Cr 0.5, glucose 94 Nutritional Hx/Data Height 1.65 m Height (Calculated Centimeters) 165.1 Current Weight (lbs) 36.741 kg Weight (Calculated Kilograms) 36.7 Weight (Calculated Grams) 66346.0 [place] Body Weight 125 Body Mass Index (BMI) 13.4 Weight Status Underweight GI Symptoms GI Symptoms None Last BM none Difficult in: None Skin Integrity/Comment: left foot and bilat arms bruises pressure area Complex - Includes bone to sacrum, skin tear to right foot ricky 12 Estimated Nutritional Goals Calories/Kcals/Kg 25-30 Kcals Calculated 6620-8486 Protein g/k.2-1.4 Protein Calculated 68-80 Fluid: ml 1425-1710ml (1ml/kcal) Nutritional Problem 1. Problem Problem increased nutrition needs Etiology impaired skin integrity Signs/Symptoms: open wound to sacrum Intervention/Recommendation Comments 1. Continue with current TF regimen with Glucerna 1.2 at 60ml/hr x 20hr. It provides 1440kcal, 72g protein, 966ml free water, meeting 100% of nutritional needs. Add Sadi BID for wound healing. 2. Monitor TF rate, tolerance, wt, skin integrity and labs 3. F/U as high risk in 2-3 days Expected Outcomes/Goals Expected Outcomes/Goals 1. Pt to meet at least 90% of nutritional needs via nutrition support with tolerance 2. Wt stability, skin to remain intact, labs to approach WNL.
--- NOTE | 2019-03-19 22:54 | Progress Notes ---
DATE: 03/19/2019 Case was discussed with staff of the patient, reviewed records. The patient continues to be nonverbal. She has a G-tube. She is unpredictable, but in general, she is responding well to redirection. Her episodes of agitation are decreasing. The patient needs follow up with the psychiatrist upon discharge. compliant with her medication, no side effects to the medication, no sedation, no nausea. Thank you very much for allowing me to participate in the care of this most interesting lady. JOB# [id number] MTDD
[2019-03-20] MEDS: Budesonide 0.5 Mg/2 mL Ud HHN SCH ×2 (07:03→18:27)
[2019-03-20] MEDS: Albuterol Nebulizer 2.5mg/3mL HHN SCH ×4 (07:03→18:27)
[2019-03-20] MEDS: Multivitamin w/ Minerals Tab GT SCH (08:49)
[2019-03-20] MEDS: Venelex 60gm Tube TP SCH (08:50)
[2019-03-20] MEDS: Lactobacillus Rhamnosus GG 15 Billion CFU CAP.SPRINK GT SCH (08:50)
--- NOTE | 2019-03-20 11:16 | General Progress Note ---
Subjective - Review of Systems Service Date: 03/20/19 Subjective: Patient exam aimed discussed with the nurse chart reviewed patient's clinically unchanged Patient has swelling of the left upper extremity patient's IV site infiltrated in the same arm DVT Objective - Results Result Diagrams: 03/06/19 06:10 03/06/19 06:10 Recent Labs: Laboratory Last Values WBC 5.9 Th/cmm (4.8-10.8) 03/06/19 06:10 RBC 3.88 Mil/cmm (3.80-5.10) 03/06/19 06:10 Hgb 12.5 gm/dL (12-16) 03/06/19 06:10 Hct 37.2 % (41.0-60) L 03/06/19 06:10 MCV 95.7 fl (81-100) 03/06/19 06:10 MCH 32.1 pg (27.0-31.0) H 03/06/19 06:10 MCHC Differential 33.5 pg (28.0-36.0) 03/06/19 06:10 RDW 13.1 % (11.5-20.0) 03/06/19 06:10 Plt Count 266 Th/cmm (150-400) 03/06/19 06:10 MPV 7.5 fl 03/06/19 06:10 Neutrophils % 72.3 % (40.0-80.0) 03/06/19 06:10 Lymphocytes % 16.1 % (20.0-50.0) L 03/06/19 06:10 Monocytes % 8.6 % (2.0-10.0) 03/06/19 06:10 Eosinophils % 2.4 % (0.0-5.0) 03/06/19 06:10 Basophils % 0.6 % (0.0-2.0) 03/06/19 06:10 PT 11.6 SECONDS (9.5-11.5) H 02/15/19 23:40 INR 1.13 (0.5-1.4) 02/15/19 23:40 PTT (Actin FS) 44.0 SECONDS (26.0-38.0) H 02/15/19 23:40 Sodium 143 mEq/L (136-145) 03/06/19 06:10 Potassium 3.5 mEq/L (3.5-5.1) 03/06/19 06:10 Chloride 103 mEq/L (98-107) 03/06/19 06:10 Carbon Dioxide 31.4 mEq/L (21.0-31.0) H 03/06/19 06:10 Anion Gap 12.1 (7.0-16.0) 03/06/19 06:10 BUN 29 mg/dL (7-25) H 03/06/19 06:10 Creatinine 0.5 mg/dL (0.6-1.2) L 03/06/19 06:10 Est GFR ( Amer) > 60.0 ml/min (>90) 03/06/19 06:10 Est GFR (Non-Af Amer) > 60.0 ml/min 03/06/19 06:10 BUN/Creatinine Ratio 58.0 03/06/19 06:10 Glucose 101 mg/dL (70-105) 03/06/19 06:10 POC Glucose 105 MG/DL (70 - 105) 03/04/19 09:16 Whole Bld Lactic Acid 0.56 mmol/L (0.60-1.99) L 02/16/19 00:00 Calcium 9.6 mg/dL (8.6-10.3) 03/06/19 06:10 Total Bilirubin 0.5 mg/dL (0.3-1.0) 03/06/19 06:10 AST 28 U/L (13-39) 03/06/19 06:10 ALT 40 U/L (7-52) 03/06/19 06:10 Alkaline Phosphatase 110 U/L (34-104) H 03/06/19 06:10 Troponin I 0.01 ng/mL (0.01-0.05) 02/15/19 23:40 Total Protein 6.9 gm/dL (6.0-8.3) 03/06/19 06:10 Albumin 3.5 gm/dL (3.7-5.3) L 03/06/19 06:10 Globulin 3.4 gm/dL 03/06/19 06:10 Albumin/Globulin Ratio 1.0 (1.0-1.8) 03/06/19 06:10 TSH 4.06 uIU/ml (0.34-5.60) 04/20/19 23:40 Vancomycin Trough 17.7 ug/mL (5-10) H 03/02/19 10:00 Random Vancomycin 4.7 ug/mL (5.0-40.0) L 02/16/19 21:15 - Physical Exam Vitals and I&O: Vital Signs Temp 97.1 F 03/20/19 08:00 Pulse 79 03/20/19 11:00 Resp 20 03/20/19 11:00 BP 114/74 03/20/19 09:28 Pulse Ox 97 03/20/19 11:00 Intake & Output 03/19/19 03/20/19 03/20/19 18:59 06:59 18:59 Intake Total 974 1260 Output Total 1 Balance 973 1260 Weight (lbs) 42.638 kg 42.638 kg Intake: Tube Feeding 474 810 Albumin 450 Other 500 Output: Stool 1 Other: # Voids 3 2 # Bowel Movements 1 Stool Characteristics Soft Soft Soft Brown Brown Brown Weight Source Bedscale Bedscale Active Medications: Current Medications Acetaminophen (Tylenol) 650 mg GT Q6H PRN PRN Reason: mild pain Stop: 04/17/19 18:42 Last Admin: 03/03/19 21:19 Dose: 650 mg Al Hydrox/Mg Hydrox/Simethicone (Maalox) 30 ml GT Q6HR PRN PRN Reason: GI DISTRESS Stop: 04/17/19 18:42 Albuterol Sulfate (Albuterol 2.5mg/3ml Neb Ud) 2.5 mg HHN Q2HR PRN PRN Reason: Shortness of Breath Stop: 04/17/19 18:42 Albuterol Sulfate (Albuterol 2.5mg/3ml Neb Ud) 2.5 mg HHN [id number] [facility] Stop: 04/17/19 18:59 Last Admin: 03/20/19 11:00 Dose: 2.5 mg Ascorbic Acid (Vitamin C) 500 mg GT Q12HR MADHURI Stop: 04/17/19 20:59 Last Admin: 03/20/19 08:49 Dose: 500 mg Bisacodyl (Dulcolax 10 Mg Supp) 10 mg RC DAILY PRN PRN Reason: Constipation Stop: 04/17/19 20:14 Budesonide (Pulmicort) 0.5 mg HHN BIDRT [facility] Stop: 04/18/19 06:59 Last Admin: 03/20/19 07:03 Dose: 0.5 mg Carvedilol (Coreg) 6.25 mg GT Q12H MADHURI Stop: 04/17/19 21:59 Last Admin: 03/20/19 09:28 Dose: 6.25 mg [place] Oil/[place] Balsam/Trypsin (Venelex) 1 appl TP DAILY MADHURI Stop: 04/18/19 08:59 Last Admin: 03/20/19 08:50 Dose: 1 appl Docusate Sodium (Colace) 200 mg GT Q12H PRN PRN Reason: Constipation Stop: 04/17/19 20:14 Last Admin: 03/11/19 10:21 Dose: 200 mg Enalapril Maleate (Vasotec) 2.5 mg PO BID MADHURI Stop: 04/26/19 12:24 Last Admin: 03/20/19 08:49 Dose: 2.5 mg Glucagon (Glucagen) 1 mg IM PRN PRN PRN Reason: Blood Glucose less than 70 Stop: 04/17/19 20:14 Last Admin: 02/28/19 21:12 Dose: 1 mg Lactobacillus Rhamnosus (Culturelle 15b) 1 each GT DAILY MADHURI Stop: 04/18/19 08:59 Last Admin: 03/20/19 08:50 Dose: 1 each Lorazepam (Ativan) 0.5 mg PO Q4HR PRN; Protocol PRN Reason: Agitation Stop: 05/04/19 12:08 Last Admin: 03/20/19 06:29 Dose: 0.5 mg Magnesium Hydroxide (Milk Of Magnesia) 30 ml GT HS PRN PRN Reason: Constipation Stop: 04/17/19 18:42 Magnesium Oxide (Mag-Oxide) 400 mg GT BID MADHURI Stop: 04/18/19 08:59 Last Admin: 03/20/19 08:49 Dose: 400 mg Mirtazapine (Remeron) 7.5 mg PO HS MADHURI; Protocol Stop: 05/04/19 20:59 Last Admin: 03/19/19 21:02 Dose: 7.5 mg Ondansetron HCl (Zofran) 4 mg IV Q6H PRN PRN Reason: Nausea / Vomiting Stop: 04/28/19 06:20 Sodium Phosphate (Fleet Enema) 135 ml RC Q48HR PRN PRN Reason: Constipation Stop: 04/17/19 20:14 General: No acute distress HEENT: Mucous membr. moist/pink Neck: Supple, JVD, +2 carotid pulse wo bruit (flat) Cardiovascular: Regular rate, Normal S1, Normal S2, Systolic murmurs Lungs: Clear to auscultation, Normal air movement Abdomen: Bowel sounds, Soft, Other (G-tube) - Procedures Procedures: Procedures Procedure Code Date INSERTION OF FEEDING DEVICE INTO STOMACH, PERC APPROACH [id number] 01/02/19 INSERTION OF INFUSION DEVICE INTO R LOW ARM, PERC APPROACH [id number] 01/02/19 INTRODUCTION OF NUTRITIONAL INTO PERIPH VEIN, PERC APPROACH [id number] 01/02/19 RESPIRATORY VENTILATION, LESS THAN 24 CONSECUTIVE HOURS [id number] 04/07/18 Assessment/Plan - Assessment Assessment: Uncontrolled hypertension MRSA sepsis Osteomyelitis of the lumbosacral spine Discitis lumbosacral spine Dementia Dysphagia with PEG placement Protein calorie malnutrition Psychosis COPD DVT upper extremity - Plan Plan: Continue antihypertensive treatment continue antibiotics Venous duplex study Discharge planning Nutritional Asmnt/Malnutr-PDOC - Dietary Evaluation Malnutrition Findings (Please click <Entered> for more info): Nutritional Asmnt/Malnutrition Start: 02/17/19 17: 23 Text: Status: Complete Freq: Protocol: Document 02/17/19 17:23 LCHENG (Rec: 02/17/19 17:28 [email or web address]) Nutritional Asmnt/Malnutrition Patient General Information Nutritional Screening High Risk Consult Diagnosis osteomyelitis, central line placement Pertinent Medical Hx/Surgical Hx HTN, asthma/COPD, PUD/GERd, osteomylitis, anemia, PEG/ Gtube, schizophrenia, bipolar Subjective Information Consult received for ricky 12 and open wound. Pt seen resting in bed at time of visit. TF off at this time. Current Diet Order/ Nutrition Support Glucerna 1.2 at 60ml/hr x 20hr Pertinent Medications vit C, colace, heperin, humalog, culturelle, mag-oxide , vancomycin Pertinent Labs 02/17 K 3.4, Cr 0.5, glucose 94 Nutritional Hx/Data Height 1.65 m Height (Calculated Centimeters) 165.1 Current Weight (lbs) 36.741 kg Weight (Calculated Kilograms) 36.7 Weight (Calculated Grams) 92728.0 [place] Body Weight 125 Body Mass Index (BMI) 13.4 Weight Status Underweight GI Symptoms GI Symptoms None Last BM none Difficult in: None Skin Integrity/Comment: left foot and bilat arms bruises pressure area Complex - Includes bone to sacrum, skin tear to right foot ricky 12 Estimated Nutritional Goals Calories/Kcals/Kg 25-30 Kcals Calculated 5804-4257 Protein g/k.2-1.4 Protein Calculated 68-80 Fluid: ml 1425-1710ml (1ml/kcal) Nutritional Problem 1. Problem Problem increased nutrition needs Etiology impaired skin integrity Signs/Symptoms: open wound to sacrum Intervention/Recommendation Comments 1. Continue with current TF regimen with Glucerna 1.2 at 60ml/hr x 20hr. It provides 1440kcal, 72g protein, 966ml free water, meeting 100% of nutritional needs. Add Sadi BID for wound healing. 2. Monitor TF rate, tolerance, wt, skin integrity and labs 3. F/U as high risk in 2-3 days Expected Outcomes/Goals Expected Outcomes/Goals 1. Pt to meet at least 90% of nutritional needs via nutrition support with tolerance 2. Wt stability, skin to remain intact, labs to approach WNL.
--- NOTE | 2019-03-20 18:24 | Internal Medicine Prog Note ---
Internal Medicine Subjective - Subjective Service Date: 03/20/19 Patient is:: awake, interactive, confused, other Per staff patient has:: no adverse event, no episodes of fall, confused Internal Medicine Objective - Results Result Diagrams: 03/06/19 06:10 03/06/19 06:10 Recent Labs: Laboratory Last Values WBC 5.9 Th/cmm (4.8-10.8) 03/06/19 06:10 RBC 3.88 Mil/cmm (3.80-5.10) 03/06/19 06:10 Hgb 12.5 gm/dL (12-16) 03/06/19 06:10 Hct 37.2 % (41.0-60) L 03/06/19 06:10 MCV 95.7 fl (81-100) 03/06/19 06:10 MCH 32.1 pg (27.0-31.0) H 03/06/19 06:10 MCHC Differential 33.5 pg (28.0-36.0) 03/06/19 06:10 RDW 13.1 % (11.5-20.0) 03/06/19 06:10 Plt Count 266 Th/cmm (150-400) 03/06/19 06:10 MPV 7.5 fl 03/06/19 06:10 Neutrophils % 72.3 % (40.0-80.0) 03/06/19 06:10 Lymphocytes % 16.1 % (20.0-50.0) L 03/06/19 06:10 Monocytes % 8.6 % (2.0-10.0) 03/06/19 06:10 Eosinophils % 2.4 % (0.0-5.0) 03/06/19 06:10 Basophils % 0.6 % (0.0-2.0) 03/06/19 06:10 PT 11.6 SECONDS (9.5-11.5) H 02/15/19 23:40 INR 1.13 (0.5-1.4) 02/15/19 23:40 PTT (Actin FS) 44.0 SECONDS (26.0-38.0) H 02/15/19 23:40 Sodium 143 mEq/L (136-145) 03/06/19 06:10 Potassium 3.5 mEq/L (3.5-5.1) 03/06/19 06:10 Chloride 103 mEq/L (98-107) 03/06/19 06:10 Carbon Dioxide 31.4 mEq/L (21.0-31.0) H 03/06/19 06:10 Anion Gap 12.1 (7.0-16.0) 03/06/19 06:10 BUN 29 mg/dL (7-25) H 03/06/19 06:10 Creatinine 0.5 mg/dL (0.6-1.2) L 03/06/19 06:10 Est GFR ( Amer) > 60.0 ml/min (>90) 03/06/19 06:10 Est GFR (Non-Af Amer) > 60.0 ml/min 03/06/19 06:10 BUN/Creatinine Ratio 58.0 03/06/19 06:10 Glucose 101 mg/dL (70-105) 03/06/19 06:10 POC Glucose 105 MG/DL (70 - 105) 03/04/19 09:16 Whole Bld Lactic Acid 0.56 mmol/L (0.60-1.99) L 02/16/19 00:00 Calcium 9.6 mg/dL (8.6-10.3) 03/06/19 06:10 Total Bilirubin 0.5 mg/dL (0.3-1.0) 03/06/19 06:10 AST 28 U/L (13-39) 03/06/19 06:10 ALT 40 U/L (7-52) 03/06/19 06:10 Alkaline Phosphatase 110 U/L (34-104) H 03/06/19 06:10 Troponin I 0.01 ng/mL (0.01-0.05) 02/15/19 23:40 Total Protein 6.9 gm/dL (6.0-8.3) 03/06/19 06:10 Albumin 3.5 gm/dL (3.7-5.3) L 03/06/19 06:10 Globulin 3.4 gm/dL 03/06/19 06:10 Albumin/Globulin Ratio 1.0 (1.0-1.8) 03/06/19 06:10 TSH 4.06 uIU/ml (0.34-5.60) 02/15/19 23:40 Vancomycin Trough 17.7 ug/mL (5-10) H 03/02/19 10:00 Random Vancomycin 4.7 ug/mL (5.0-40.0) L 02/16/19 21:15 - Physical Exam Vitals and I&O: Vital Signs Temp 97.4 F 03/20/19 16:00 Pulse 60 03/20/19 16:36 Resp 18 03/20/19 16:00 BP 116/70 03/20/19 16:36 Pulse Ox 100 03/20/19 16:00 Intake & Output 03/19/19 03/20/19 03/20/19 18:59 06:59 18:59 Intake Total 974 1260 450 Output Total 1 Balance 973 1260 450 Weight (lbs) 94 lb 94 lb 94 lb Intake: Tube Feeding 474 810 450 Albumin 450 Other 500 Output: Stool 1 Other: # Voids 3 2 2 # Bowel Movements 1 1 Stool Characteristics Soft Soft Soft Brown Brown Brown Weight Source Bedscale Bedscale Bedscale Active Medications: Current Medications Acetaminophen (Tylenol) 650 mg GT Q6H PRN PRN Reason: mild pain Stop: 04/17/19 18:42 Last Admin: 03/03/19 21:19 Dose: 650 mg Al Hydrox/Mg Hydrox/Simethicone (Maalox) 30 ml GT Q6HR PRN PRN Reason: GI DISTRESS Stop: 04/17/19 18:42 Albuterol Sulfate (Albuterol 2.5mg/3ml Neb Ud) 2.5 mg HHN Q2HR PRN PRN Reason: Shortness of Breath Stop: 04/17/19 18:42 Albuterol Sulfate (Albuterol 2.5mg/3ml Neb Ud) 2.5 mg HHN [id number] [facility] Stop: 04/17/19 18:59 Last Admin: 03/20/19 14:00 Dose: 2.5 mg Ascorbic Acid (Vitamin C) 500 mg GT Q12HR MADHURI Stop: 04/17/19 20:59 Last Admin: 03/20/19 08:49 Dose: 500 mg Bisacodyl (Dulcolax 10 Mg Supp) 10 mg RC DAILY PRN PRN Reason: Constipation Stop: 04/17/19 20:14 Budesonide (Pulmicort) 0.5 mg HHN BIDRT [facility] Stop: 04/18/19 06:59 Last Admin: 03/20/19 07:03 Dose: 0.5 mg Carvedilol (Coreg) 6.25 mg GT Q12H MADHURI Stop: 04/17/19 21:59 Last Admin: 03/20/19 09:28 Dose: 6.25 mg [place] Oil/[place] Balsam/Trypsin (Venelex) 1 appl TP DAILY MADHURI Stop: 04/18/19 08:59 Last Admin: 03/20/19 08:50 Dose: 1 appl Docusate Sodium (Colace) 200 mg GT Q12H PRN PRN Reason: Constipation Stop: 04/17/19 20:14 Last Admin: 03/11/19 10:21 Dose: 200 mg Enalapril Maleate (Vasotec) 2.5 mg PO BID MADHURI Stop: 04/26/19 12:24 Last Admin: 03/20/19 16:36 Dose: 2.5 mg Glucagon (Glucagen) 1 mg IM PRN PRN PRN Reason: Blood Glucose less than 70 Stop: 04/17/19 20:14 Last Admin: 02/28/19 21:12 Dose: 1 mg Lactobacillus Rhamnosus (Culturelle 15b) 1 each GT DAILY MADHURI Stop: 04/18/19 08:59 Last Admin: 03/20/19 08:50 Dose: 1 each Lorazepam (Ativan) 0.5 mg PO Q4HR PRN; Protocol PRN Reason: Agitation Stop: 05/04/19 12:08 Last Admin: 03/20/19 06:29 Dose: 0.5 mg Magnesium Hydroxide (Milk Of Magnesia) 30 ml GT HS PRN PRN Reason: Constipation Stop: 04/17/19 18:42 Magnesium Oxide (Mag-Oxide) 400 mg GT BID MADHURI Stop: 04/18/19 08:59 Last Admin: 03/20/19 16:35 Dose: 400 mg Mirtazapine (Remeron) 7.5 mg PO HS MADHURI; Protocol Stop: 05/04/19 20:59 Last Admin: 03/19/19 21:02 Dose: 7.5 mg Ondansetron HCl (Zofran) 4 mg IV Q6H PRN PRN Reason: Nausea / Vomiting Stop: 04/28/19 06:20 Sodium Phosphate (Fleet Enema) 135 ml RC Q48HR PRN PRN Reason: Constipation Stop: 04/17/19 20:14 General: weak, demented HEENT: NC/AT, PERRLA Neck: Supple, No JVD Lungs: CTAB Cardiovascular: RRR, Normal S1 Abdomen: soft, non-tender Extremities: edema Neurological: no change, unable to follow command, other - Procedures Procedures: Procedures Procedure Code Date INSERTION OF FEEDING DEVICE INTO STOMACH, PERC APPROACH [id number] 01/02/19 INSERTION OF INFUSION DEVICE INTO R LOW ARM, PERC APPROACH [id number] 01/02/19 INTRODUCTION OF NUTRITIONAL INTO PERIPH VEIN, PERC APPROACH [id number] 01/02/19 RESPIRATORY VENTILATION, LESS THAN 24 CONSECUTIVE HOURS [id number] 04/07/18 Internal Medicine Assmt/Plan - Assessment Assessment: OSTEOMYELITIS OF LUMBAR SPINE MRSA SEPSIS DYSPHAGIA DEMENTIA MODERATE PROTEIN CALORIE MALNUTRITION COPD S/P DECCANULATION - Plan Plan: placement issues continue current plan of care Nutritional Asmnt/Malnutr-PDOC - Dietary Evaluation Malnutrition Findings (Please click <Entered> for more info): Nutritional Asmnt/Malnutrition Start: 02/17/19 17: 23 Text: Status: Complete Freq: Protocol: Document 02/17/19 17:23 LCHENG (Rec: 02/17/19 17:28 [email or web address] [email or web address]) Nutritional Asmnt/Malnutrition Patient General Information Nutritional Screening High Risk Consult Diagnosis osteomyelitis, central line placement Pertinent Medical Hx/Surgical Hx HTN, asthma/COPD, PUD/GERd, osteomylitis, anemia, PEG/ Gtube, schizophrenia, bipolar Subjective Information Consult received for ricky 12 and open wound. Pt seen resting in bed at time of visit. TF off at this time. Current Diet Order/ Nutrition Support Glucerna 1.2 at 60ml/hr x 20hr Pertinent Medications vit C, colace, heperin, humalog, culturelle, mag-oxide , vancomycin Pertinent Labs 02/17 K 3.4, Cr 0.5, glucose 94 Nutritional Hx/Data Height 5 ft 5 in Height (Calculated Centimeters) 165.1 Current Weight (lbs) 81 lb Weight (Calculated Kilograms) 36.7 Weight (Calculated Grams) 83316.0 [place] Body Weight 125 Body Mass Index (BMI) 13.4 Weight Status Underweight GI Symptoms GI Symptoms None Last BM none Difficult in: None Skin Integrity/Comment: left foot and bilat arms bruises pressure area Complex - Includes bone to sacrum, skin tear to right foot ricky 12 Estimated Nutritional Goals Calories/Kcals/Kg 25-30 Kcals Calculated 3980-8585 Protein g/k.2-1.4 Protein Calculated 68-80 Fluid: ml 1425-1710ml (1ml/kcal) Nutritional Problem 1. Problem Problem increased nutrition needs Etiology impaired skin integrity Signs/Symptoms: open wound to sacrum Intervention/Recommendation Comments 1. Continue with current TF regimen with Glucerna 1.2 at 60ml/hr x 20hr. It provides 1440kcal, 72g protein, 966ml free water, meeting 100% of nutritional needs. Add Sadi BID for wound healing. 2. Monitor TF rate, tolerance, wt, skin integrity and labs 3. F/U as high risk in 2-3 days Expected Outcomes/Goals Expected Outcomes/Goals 1. Pt to meet at least 90% of nutritional needs via nutrition support with tolerance 2. Wt stability, skin to remain intact, labs to approach WNL.
--- NOTE | 2019-03-21 04:52 | Progress Notes ---
DATE: 03/20/2019 SUBJECTIVE: Case was discussed with staff of the patient. ____. The patient is still sometimes needing restraints, but in general she is okay. She is sleeping better, eating better. She has a G-tube. She is basically nonverbal. She needs redirection. No side effects of the medications. No sedation, no nausea. The patient needs follow up with the psychiatrist upon discharge. Thank you very much for allowing me to participate in the care of this most interesting lady. JOB# [id number]
[2019-03-21] MEDS: Albuterol Nebulizer 2.5mg/3mL HHN SCH ×4 (07:25→19:04)
[2019-03-21] MEDS: Budesonide 0.5 Mg/2 mL Ud HHN SCH ×2 (07:25→19:04)
[2019-03-21] MEDS: Lactobacillus Rhamnosus GG 15 Billion CFU CAP.SPRINK GT SCH (09:14)
[2019-03-21] MEDS: Multivitamin w/ Minerals Tab GT SCH (09:14)
[2019-03-21] MEDS: Venelex 60gm Tube TP SCH (09:16)
--- NOTE | 2019-03-21 10:58 | Internal Medicine Prog Note ---
Internal Medicine Subjective - Subjective Service Date: 03/21/19 Patient seen and examined:: with staff Patient is:: awake, interactive, confused, other (resisting care.) Patient Complaints of:: other (Hx of copd.) Per staff patient has:: no adverse event, no episodes of fall, confused Internal Medicine Objective - Results Result Diagrams: 03/06/19 06:10 03/06/19 06:10 Recent Labs: Laboratory Last Values WBC 5.9 Th/cmm (4.8-10.8) 03/06/19 06:10 RBC 3.88 Mil/cmm (3.80-5.10) 03/06/19 06:10 Hgb 12.5 gm/dL (12-16) 03/06/19 06:10 Hct 37.2 % (41.0-60) L 03/06/19 06:10 MCV 95.7 fl (81-100) 03/06/19 06:10 MCH 32.1 pg (27.0-31.0) H 03/06/19 06:10 MCHC Differential 33.5 pg (28.0-36.0) 03/06/19 06:10 RDW 13.1 % (11.5-20.0) 03/06/19 06:10 Plt Count 266 Th/cmm (150-400) 03/06/19 06:10 MPV 7.5 fl 03/06/19 06:10 Neutrophils % 72.3 % (40.0-80.0) 03/06/19 06:10 Lymphocytes % 16.1 % (20.0-50.0) L 03/06/19 06:10 Monocytes % 8.6 % (2.0-10.0) 03/06/19 06:10 Eosinophils % 2.4 % (0.0-5.0) 03/06/19 06:10 Basophils % 0.6 % (0.0-2.0) 03/06/19 06:10 PT 11.6 SECONDS (9.5-11.5) H 02/15/19 23:40 INR 1.13 (0.5-1.4) 02/15/19 23:40 PTT (Actin FS) 44.0 SECONDS (26.0-38.0) H 02/15/19 23:40 Sodium 143 mEq/L (136-145) 03/06/19 06:10 Potassium 3.5 mEq/L (3.5-5.1) 03/06/19 06:10 Chloride 103 mEq/L (98-107) 03/06/19 06:10 Carbon Dioxide 31.4 mEq/L (21.0-31.0) H 03/06/19 06:10 Anion Gap 12.1 (7.0-16.0) 03/06/19 06:10 BUN 29 mg/dL (7-25) H 03/06/19 06:10 Creatinine 0.5 mg/dL (0.6-1.2) L 03/06/19 06:10 Est GFR ( Amer) > 60.0 ml/min (>90) 03/06/19 06:10 Est GFR (Non-Af Amer) > 60.0 ml/min 03/06/19 06:10 BUN/Creatinine Ratio 58.0 03/06/19 06:10 Glucose 101 mg/dL (70-105) 03/06/19 06:10 POC Glucose 105 MG/DL (70 - 105) 03/04/19 09:16 Whole Bld Lactic Acid 0.56 mmol/L (0.60-1.99) L 02/16/19 00:00 Calcium 9.6 mg/dL (8.6-10.3) 03/06/19 06:10 Total Bilirubin 0.5 mg/dL (0.3-1.0) 03/06/19 06:10 AST 28 U/L (13-39) 03/06/19 06:10 ALT 40 U/L (7-52) 03/06/19 06:10 Alkaline Phosphatase 110 U/L (34-104) H 03/06/19 06:10 Troponin I 0.01 ng/mL (0.01-0.05) 02/15/19 23:40 Total Protein 6.9 gm/dL (6.0-8.3) 03/06/19 06:10 Albumin 3.5 gm/dL (3.7-5.3) L 03/06/19 06:10 Globulin 3.4 gm/dL 03/06/19 06:10 Albumin/Globulin Ratio 1.0 (1.0-1.8) 03/06/19 06:10 TSH 4.06 uIU/ml (0.34-5.60) 02/15/19 23:40 Vancomycin Trough 17.7 ug/mL (5-10) H 03/02/19 10:00 Random Vancomycin 4.7 ug/mL (5.0-40.0) L 02/16/19 21:15 - Physical Exam Vitals and I&O: Vital Signs Temp 97.4 F 03/21/19 09:15 Pulse 80 03/21/19 09:15 Resp 19 03/21/19 09:15 BP 122/77 03/21/19 09:15 Pulse Ox 97 03/21/19 09:15 Intake & Output 03/20/19 03/21/19 03/21/19 18:59 06:59 18:59 Intake Total 450 1040 Balance 450 1040 Weight (lbs) 42.638 kg 42.638 kg Intake: Tube Feeding 450 540 Albumin 500 Other: # Voids 2 2 # Bowel Movements 1 Stool Characteristics Soft Soft Brown Brown Weight Source Bedscale Bedscale Active Medications: Current Medications Acetaminophen (Tylenol) 650 mg GT Q6H PRN PRN Reason: mild pain Stop: 04/17/19 18:42 Last Admin: 03/03/19 21:19 Dose: 650 mg Al Hydrox/Mg Hydrox/Simethicone (Maalox) 30 ml GT Q6HR PRN PRN Reason: GI DISTRESS Stop: 04/17/19 18:42 Albuterol Sulfate (Albuterol 2.5mg/3ml Neb Ud) 2.5 mg HHN Q2HR PRN PRN Reason: Shortness of Breath Stop: 04/17/19 18:42 Albuterol Sulfate (Albuterol 2.5mg/3ml Neb Ud) 2.5 mg HHN [id number] MADHURI Stop: 04/17/19 18:59 Last Admin: 03/21/19 07:25 Dose: 2.5 mg Ascorbic Acid (Vitamin C) 500 mg GT Q12HR MADHURI Stop: 04/17/19 20:59 Last Admin: 03/21/19 09:14 Dose: 500 mg Bisacodyl (Dulcolax 10 Mg Supp) 10 mg RC DAILY PRN PRN Reason: Constipation Stop: 04/17/19 20:14 Budesonide (Pulmicort) 0.5 mg HHN BIDRT MADHURI Stop: 04/18/19 06:59 Last Admin: 03/21/19 07:25 Dose: 0.5 mg Carvedilol (Coreg) 6.25 mg GT Q12H MADHURI Stop: 04/17/19 21:59 Last Admin: 03/21/19 09:13 Dose: 6.25 mg [place] Oil/[place] Balsam/Trypsin (Venelex) 1 appl TP DAILY MADHURI Stop: 04/18/19 08:59 Last Admin: 03/21/19 09:16 Dose: 1 appl Docusate Sodium (Colace) 200 mg GT Q12H PRN PRN Reason: Constipation Stop: 04/17/19 20:14 Last Admin: 03/11/19 10:21 Dose: 200 mg Enalapril Maleate (Vasotec) 2.5 mg PO BID [facility] Stop: 04/26/19 12:24 Last Admin: 03/21/19 09:14 Dose: 2.5 mg Glucagon (Glucagen) 1 mg IM PRN PRN PRN Reason: Blood Glucose less than 70 Stop: 04/17/19 20:14 Last Admin: 02/28/19 21:12 Dose: 1 mg Lactobacillus Rhamnosus (Culturelle 15b) 1 each GT DAILY MADHURI Stop: 04/18/19 08:59 Last Admin: 03/21/19 09:14 Dose: 1 each Lorazepam (Ativan) 0.5 mg PO Q4HR PRN; Protocol PRN Reason: Agitation Stop: 05/04/19 12:08 Last Admin: 03/20/19 06:29 Dose: 0.5 mg Magnesium Hydroxide (Milk Of Magnesia) 30 ml GT HS PRN PRN Reason: Constipation Stop: 04/17/19 18:42 Magnesium Oxide (Mag-Oxide) 400 mg GT BID MADHURI Stop: 04/18/19 08:59 Last Admin: 03/21/19 09:14 Dose: 400 mg Mirtazapine (Remeron) 7.5 mg PO HS MADHURI; Protocol Stop: 05/04/19 20:59 Last Admin: 03/20/19 21:11 Dose: 7.5 mg Ondansetron HCl (Zofran) 4 mg IV Q6H PRN PRN Reason: Nausea / Vomiting Stop: 04/28/19 06:20 Sodium Phosphate (Fleet Enema) 135 ml RC Q48HR PRN PRN Reason: Constipation Stop: 04/17/19 20:14 Physical Exam: 58 y/o female patient has some swelling of the left upper extremity, Dvt of upper extremity which patient is getting treatment for and has been improving. General: weak, demented HEENT: NC/AT, PERRLA Neck: Supple, No JVD Lungs: CTAB Cardiovascular: RRR, Normal S1 Abdomen: soft, non-tender Extremities: edema Neurological: no change, unable to follow command, other - Procedures Procedures: Procedures Procedure Code Date INSERTION OF FEEDING DEVICE INTO STOMACH, PERC APPROACH [id number] 01/02/19 INSERTION OF INFUSION DEVICE INTO R LOW ARM, PERC APPROACH [id number] 01/02/19 INTRODUCTION OF NUTRITIONAL INTO PERIPH VEIN, PERC APPROACH [id number] 01/02/19 RESPIRATORY VENTILATION, LESS THAN 24 CONSECUTIVE HOURS [id number] 04/07/18 Internal Medicine Assmt/Plan - Assessment Assessment: Edema of Left upper extremity Hypertension. MRSA sepsis, treated Diskitis. Osteomyelitis of lumbar spine Anemia. Protein Malnutrition. S/p Deccanulation. S/p Percutaneous Endoscopic gastrostomy. Less agitated Dementia Psychosis Chronic Copd Protein-calorie malnutrition Failure to thrive DVT of upper extremity - Plan Plan: Continuation of care Continue present meds as directed Monitor Pain Continue to follow up with Psych Monitor Vitals, Labs and Pain management Fall precaution Continue present care management Nutritional Asmnt/Malnutr-PDOC - Dietary Evaluation Malnutrition Findings (Please click <Entered> for more info): Nutritional Asmnt/Malnutrition Start: 02/17/19 17: 23 Text: Status: Complete Freq: Protocol: Document 02/17/19 17:23 LCHENG (Rec: 02/17/19 17:28 LCHENG [email or web address]) Nutritional Asmnt/Malnutrition Patient General Information Nutritional Screening High Risk Consult Diagnosis osteomyelitis, central line placement Pertinent Medical Hx/Surgical Hx HTN, asthma/COPD, PUD/GERd, osteomylitis, anemia, PEG/ Gtube, schizophrenia, bipolar Subjective Information Consult received for ricky 12 and open wound. Pt seen resting in bed at time of visit. TF off at this time. Current Diet Order/ Nutrition Support Glucerna 1.2 at 60ml/hr x 20hr Pertinent Medications vit C, colace, heperin, humalog, culturelle, mag-oxide , vancomycin Pertinent Labs 02/17 K 3.4, Cr 0.5, glucose 94 Nutritional Hx/Data Height 1.65 m Height (Calculated Centimeters) 165.1 Current Weight (lbs) 36.741 kg Weight (Calculated Kilograms) 36.7 Weight (Calculated Grams) 59669.0 [place] Body Weight 125 Body Mass Index (BMI) 13.4 Weight Status Underweight GI Symptoms GI Symptoms None Last BM none Difficult in: None Skin Integrity/Comment: left foot and bilat arms bruises pressure area Complex - Includes bone to sacrum, skin tear to right foot ricky 12 Estimated Nutritional Goals Calories/Kcals/Kg 25-30 Kcals Calculated 0660-9868 Protein g/k.2-1.4 Protein Calculated 68-80 Fluid: ml 1425-1710ml (1ml/kcal) Nutritional Problem 1. Problem Problem increased nutrition needs Etiology impaired skin integrity Signs/Symptoms: open wound to sacrum Intervention/Recommendation Comments 1. Continue with current TF regimen with Glucerna 1.2 at 60ml/hr x 20hr. It provides 1440kcal, 72g protein, 966ml free water, meeting 100% of nutritional needs. Add Sadi BID for wound healing. 2. Monitor TF rate, tolerance, wt, skin integrity and labs 3. F/U as high risk in 2-3 days Expected Outcomes/Goals Expected Outcomes/Goals 1. Pt to meet at least 90% of nutritional needs via nutrition support with tolerance 2. Wt stability, skin to remain intact, labs to approach WNL.
--- NOTE | 2019-03-21 14:34 | General Progress Note ---
Subjective - Review of Systems Service Date: 03/21/19 Subjective: Patient exam aimed discussed with the nurse chart reviewed patient's clinically unchanged Patient has swelling of the left upper extremity patient's IV site infiltrated in the same arm DVT Objective - Results Result Diagrams: 03/06/19 06:10 03/06/19 06:10 Recent Labs: Laboratory Last Values WBC 5.9 Th/cmm (4.8-10.8) 03/06/19 06:10 RBC 3.88 Mil/cmm (3.80-5.10) 03/06/19 06:10 Hgb 12.5 gm/dL (12-16) 03/06/19 06:10 Hct 37.2 % (41.0-60) L 03/06/19 06:10 MCV 95.7 fl (81-100) 03/06/19 06:10 MCH 32.1 pg (27.0-31.0) H 03/06/19 06:10 MCHC Differential 33.5 pg (28.0-36.0) 03/06/19 06:10 RDW 13.1 % (11.5-20.0) 03/06/19 06:10 Plt Count 266 Th/cmm (150-400) 03/06/19 06:10 MPV 7.5 fl 03/06/19 06:10 Neutrophils % 72.3 % (40.0-80.0) 03/06/19 06:10 Lymphocytes % 16.1 % (20.0-50.0) L 03/06/19 06:10 Monocytes % 8.6 % (2.0-10.0) 03/06/19 06:10 Eosinophils % 2.4 % (0.0-5.0) 03/06/19 06:10 Basophils % 0.6 % (0.0-2.0) 03/06/19 06:10 PT 11.6 SECONDS (9.5-11.5) H 02/15/19 23:40 INR 1.13 (0.5-1.4) 02/15/19 23:40 PTT (Actin FS) 44.0 SECONDS (26.0-38.0) H 02/15/19 23:40 Sodium 143 mEq/L (136-145) 03/06/19 06:10 Potassium 3.5 mEq/L (3.5-5.1) 03/06/19 06:10 Chloride 103 mEq/L (98-107) 03/06/19 06:10 Carbon Dioxide 31.4 mEq/L (21.0-31.0) H 03/06/19 06:10 Anion Gap 12.1 (7.0-16.0) 03/06/19 06:10 BUN 29 mg/dL (7-25) H 03/06/19 06:10 Creatinine 0.5 mg/dL (0.6-1.2) L 03/06/19 06:10 Est GFR ( Amer) > 60.0 ml/min (>90) 03/06/19 06:10 Est GFR (Non-Af Amer) > 60.0 ml/min 03/06/19 06:10 BUN/Creatinine Ratio 58.0 03/06/19 06:10 Glucose 101 mg/dL (70-105) 03/06/19 06:10 POC Glucose 96 MG/DL (70 - 105) 03/21/19 11:10 Whole Bld Lactic Acid 0.56 mmol/L (0.60-1.99) L 02/16/19 00:00 Calcium 9.6 mg/dL (8.6-10.3) 03/06/19 06:10 Total Bilirubin 0.5 mg/dL (0.3-1.0) 03/06/19 06:10 AST 28 U/L (13-39) 03/06/19 06:10 ALT 40 U/L (7-52) 03/06/19 06:10 Alkaline Phosphatase 110 U/L (34-104) H 03/06/19 06:10 Troponin I 0.01 ng/mL (0.01-0.05) 02/15/19 23:40 Total Protein 6.9 gm/dL (6.0-8.3) 03/06/19 06:10 Albumin 3.5 gm/dL (3.7-5.3) L 03/06/19 06:10 Globulin 3.4 gm/dL 03/06/19 06:10 Albumin/Globulin Ratio 1.0 (1.0-1.8) 03/06/19 06:10 TSH 4.06 uIU/ml (0.34-5.60) 02/15/19 23:40 Vancomycin Trough 17.7 ug/mL (5-10) H 03/02/19 10:00 Random Vancomycin 4.7 ug/mL (5.0-40.0) L 02/16/19 21:15 - Physical Exam Vitals and I&O: Vital Signs Temp 97.4 F 03/21/19 09:15 Pulse 80 03/21/19 09:15 Resp 19 03/21/19 09:15 BP 122/77 03/21/19 09:15 Pulse Ox 97 03/21/19 09:15 Intake & Output 03/20/19 03/21/19 03/21/19 18:59 06:59 18:59 Intake Total 450 1040 Balance 450 1040 Weight (lbs) 42.638 kg 42.638 kg Intake: Tube Feeding 450 540 Albumin 500 Other: # Voids 2 2 # Bowel Movements 1 Stool Characteristics Soft Soft Brown Brown Weight Source Bedscale Bedscale Active Medications: Current Medications Acetaminophen (Tylenol) 650 mg GT Q6H PRN PRN Reason: mild pain Stop: 04/17/19 18:42 Last Admin: 03/03/19 21:19 Dose: 650 mg Al Hydrox/Mg Hydrox/Simethicone (Maalox) 30 ml GT Q6HR PRN PRN Reason: GI DISTRESS Stop: 04/17/19 18:42 Albuterol Sulfate (Albuterol 2.5mg/3ml Neb Ud) 2.5 mg HHN Q2HR PRN PRN Reason: Shortness of Breath Stop: 04/17/19 18:42 Albuterol Sulfate (Albuterol 2.5mg/3ml Neb Ud) 2.5 mg HHN [id number] MADHURI Stop: 04/17/19 18:59 Last Admin: 03/21/19 11:24 Dose: 2.5 mg Ascorbic Acid (Vitamin C) 500 mg GT Q12HR MADHURI Stop: 04/17/19 20:59 Last Admin: 03/21/19 09:14 Dose: 500 mg Bisacodyl (Dulcolax 10 Mg Supp) 10 mg RC DAILY PRN PRN Reason: Constipation Stop: 04/17/19 20:14 Budesonide (Pulmicort) 0.5 mg HHN BIDRT MADHURI Stop: 04/18/19 06:59 Last Admin: 03/21/19 07:25 Dose: 0.5 mg Carvedilol (Coreg) 6.25 mg GT Q12H MADHURI Stop: 04/17/19 21:59 Last Admin: 03/21/19 09:13 Dose: 6.25 mg [place] Oil/[place] Balsam/Trypsin (Venelex) 1 appl TP DAILY MADHURI Stop: 04/18/19 08:59 Last Admin: 03/21/19 09:16 Dose: 1 appl Docusate Sodium (Colace) 200 mg GT Q12H PRN PRN Reason: Constipation Stop: 04/17/19 20:14 Last Admin: 03/11/19 10:21 Dose: 200 mg Enalapril Maleate (Vasotec) 2.5 mg PO BID MADHURI Stop: 04/26/19 12:24 Last Admin: 03/21/19 09:14 Dose: 2.5 mg Glucagon (Glucagen) 1 mg IM PRN PRN PRN Reason: Blood Glucose less than 70 Stop: 04/17/19 20:14 Last Admin: 02/28/19 21:12 Dose: 1 mg Lactobacillus Rhamnosus (Culturelle 15b) 1 each GT DAILY MADHURI Stop: 04/18/19 08:59 Last Admin: 03/21/19 09:14 Dose: 1 each Lorazepam (Ativan) 0.5 mg PO Q4HR PRN; Protocol PRN Reason: Agitation Stop: 05/04/19 12:08 Last Admin: 03/20/19 06:29 Dose: 0.5 mg Magnesium Hydroxide (Milk Of Magnesia) 30 ml GT HS PRN PRN Reason: Constipation Stop: 04/17/19 18:42 Magnesium Oxide (Mag-Oxide) 400 mg GT BID MADHURI Stop: 04/18/19 08:59 Last Admin: 03/21/19 09:14 Dose: 400 mg Mirtazapine (Remeron) 7.5 mg PO HS MADHURI; Protocol Stop: 05/04/19 20:59 Last Admin: 03/20/19 21:11 Dose: 7.5 mg Ondansetron HCl (Zofran) 4 mg IV Q6H PRN PRN Reason: Nausea / Vomiting Stop: 04/28/19 06:20 Sodium Phosphate (Fleet Enema) 135 ml RC Q48HR PRN PRN Reason: Constipation Stop: 04/17/19 20:14 General: No acute distress HEENT: Mucous membr. moist/pink Neck: Supple, JVD, +2 carotid pulse wo bruit (flat) Cardiovascular: Regular rate, Normal S1, Normal S2, Systolic murmurs Lungs: Clear to auscultation, Normal air movement Abdomen: Bowel sounds, Soft, Other (G-tube) - Procedures Procedures: Procedures Procedure Code Date INSERTION OF FEEDING DEVICE INTO STOMACH, PERC APPROACH [id number] 01/02/19 INSERTION OF INFUSION DEVICE INTO R LOW ARM, PERC APPROACH [id number] 01/02/19 INTRODUCTION OF NUTRITIONAL INTO PERIPH VEIN, PERC APPROACH [id number] 01/02/19 RESPIRATORY VENTILATION, LESS THAN 24 CONSECUTIVE HOURS [id number] 04/07/18 Assessment/Plan - Assessment Assessment: Uncontrolled hypertension MRSA sepsis Osteomyelitis of the lumbosacral spine Discitis lumbosacral spine Dementia Dysphagia with PEG placement Protein calorie malnutrition Psychosis COPD DVT upper extremity - Plan Plan: Continue antihypertensive treatment continue antibiotics Venous duplex study Discharge planning Nutritional Asmnt/Malnutr-PDOC - Dietary Evaluation Malnutrition Findings (Please click <Entered> for more info): Nutritional Asmnt/Malnutrition Start: 02/17/19 17: 23 Text: Status: Complete Freq: Protocol: Document 02/17/19 17:23 LCHENG (Rec: 02/17/19 17:28 [email or web address]) Nutritional Asmnt/Malnutrition Patient General Information Nutritional Screening High Risk Consult Diagnosis osteomyelitis, central line placement Pertinent Medical Hx/Surgical Hx HTN, asthma/COPD, PUD/GERd, osteomylitis, anemia, PEG/ Gtube, schizophrenia, bipolar Subjective Information Consult received for ricky 12 and open wound. Pt seen resting in bed at time of visit. TF off at this time. Current Diet Order/ Nutrition Support Glucerna 1.2 at 60ml/hr x 20hr Pertinent Medications vit C, colace, heperin, humalog, culturelle, mag-oxide , vancomycin Pertinent Labs 02/17 K 3.4, Cr 0.5, glucose 94 Nutritional Hx/Data Height 1.65 m Height (Calculated Centimeters) 165.1 Current Weight (lbs) 36.741 kg Weight (Calculated Kilograms) 36.7 Weight (Calculated Grams) 76994.0 [place] Body Weight 125 Body Mass Index (BMI) 13.4 Weight Status Underweight GI Symptoms GI Symptoms None Last BM none Difficult in: None Skin Integrity/Comment: left foot and bilat arms bruises pressure area Complex - Includes bone to sacrum, skin tear to right foot ricky 12 Estimated Nutritional Goals Calories/Kcals/Kg 25-30 Kcals Calculated 9138-9719 Protein g/k.2-1.4 Protein Calculated 68-80 Fluid: ml 1425-1710ml (1ml/kcal) Nutritional Problem 1. Problem Problem increased nutrition needs Etiology impaired skin integrity Signs/Symptoms: open wound to sacrum Intervention/Recommendation Comments 1. Continue with current TF regimen with Glucerna 1.2 at 60ml/hr x 20hr. It provides 1440kcal, 72g protein, 966ml free water, meeting 100% of nutritional needs. Add Sadi BID for wound healing. 2. Monitor TF rate, tolerance, wt, skin integrity and labs 3. F/U as high risk in 2-3 days Expected Outcomes/Goals Expected Outcomes/Goals 1. Pt to meet at least 90% of nutritional needs via nutrition support with tolerance 2. Wt stability, skin to remain intact, labs to approach WNL.
[2019-03-22] MEDS: Budesonide 0.5 Mg/2 mL Ud HHN SCH ×2 (07:10→18:26)
[2019-03-22] MEDS: Albuterol Nebulizer 2.5mg/3mL HHN SCH ×4 (07:10→18:26)
--- NOTE | 2019-03-22 08:39 | Progress Notes ---
DATE: 03/22/2019 DATE OF SERVICE: 03/22/2019 SUBJECTIVE: The patient was seen in her room. The patient is awake, poor historian due to medical condition, appears to be guarded with on and off agitation and anxiety that warrants soft wrist restraint. But at this point, the patient appears to be comfortable, in no acute distress. OBJECTIVE: VITAL SIGNS: Temperature 97.2, heart rate 77, blood pressure 148/60, respirations of 18, and 100% on room air. HEENT: Head is atraumatic and normocephalic. EYES: Bilateral conjunctivae are clear. Bilateral pupils are equally round and reactive. NECK: Supple. No JVD. CARDIOVASCULAR: S1 and S2, without murmur. PULMONARY: Clear to auscultation. GASTROINTESTINAL: Soft and nontender without guarding. Positive bowel sounds. Positive gastrostomy tube in place. MUSCULOSKELETAL: No clubbing. No cyanosis. Positive muscle weakness. ASSESSMENT: 1. Dementia. 2. Dysphagia. 3. Chronic obstructive pulmonary disease. 4. Hypertension. 5. Anxiety. PLAN: The patient is currently on discharge planning, still a placement issue. We will continue current treatment. We will continue to provide pulmonary support and put the patient on aspiration precaution. Treatment plans were discussed with the patient's nurse. Treatment plans were discussed with Dr. Kearns. JOB# [id number]
[2019-03-22] MEDS: Multivitamin w/ Minerals Tab GT SCH (08:56)
[2019-03-22] MEDS: Lactobacillus Rhamnosus GG 15 Billion CFU CAP.SPRINK GT SCH (08:56)
[2019-03-22] MEDS: Venelex 60gm Tube TP SCH (08:56)
--- NOTE | 2019-03-22 11:48 | Progress Notes ---
DATE: 03/21/2019 Case was discussed with staff of the patient and reviewed records. The patient continues to stay in bed. She does have episodes of agitation. They have mittens on her. She has a G-tube. She is sleeping better. Continues to be confused, but she is interactive, awake, unable to make safe plan for self-care, unpredictable, impulsive. The patient needs follow up with the psychiatrist upon discharge. Thank you very much for allowing me to participate in the care of this most interesting lady. [facility]# [id number]
--- NOTE | 2019-03-22 13:44 | General Progress Note ---
Subjective - Review of Systems Service Date: 03/22/19 Subjective: Patient exam aimed discussed with the nurse chart reviewed patient's clinically unchanged Patient has swelling of the left upper extremity patient's IV site infiltrated in the same arm DVT Objective - Results Result Diagrams: 03/06/19 06:10 03/06/19 06:10 Recent Labs: Laboratory Last Values WBC 5.9 Th/cmm (4.8-10.8) 03/06/19 06:10 RBC 3.88 Mil/cmm (3.80-5.10) 03/06/19 06:10 Hgb 12.5 gm/dL (12-16) 03/06/19 06:10 Hct 37.2 % (41.0-60) L 03/06/19 06:10 MCV 95.7 fl (81-100) 03/06/19 06:10 MCH 32.1 pg (27.0-31.0) H 03/06/19 06:10 MCHC Differential 33.5 pg (28.0-36.0) 03/06/19 06:10 RDW 13.1 % (11.5-20.0) 03/06/19 06:10 Plt Count 266 Th/cmm (150-400) 03/06/19 06:10 MPV 7.5 fl 03/06/19 06:10 Neutrophils % 72.3 % (40.0-80.0) 03/06/19 06:10 Lymphocytes % 16.1 % (20.0-50.0) L 03/06/19 06:10 Monocytes % 8.6 % (2.0-10.0) 03/06/19 06:10 Eosinophils % 2.4 % (0.0-5.0) 03/06/19 06:10 Basophils % 0.6 % (0.0-2.0) 03/06/19 06:10 PT 11.6 SECONDS (9.5-11.5) H 02/15/19 23:40 INR 1.13 (0.5-1.4) 02/15/19 23:40 PTT (Actin FS) 44.0 SECONDS (26.0-38.0) H 02/15/19 23:40 Sodium 143 mEq/L (136-145) 03/06/19 06:10 Potassium 3.5 mEq/L (3.5-5.1) 03/06/19 06:10 Chloride 103 mEq/L (98-107) 03/06/19 06:10 Carbon Dioxide 31.4 mEq/L (21.0-31.0) H 03/06/19 06:10 Anion Gap 12.1 (7.0-16.0) 03/06/19 06:10 BUN 29 mg/dL (7-25) H 03/06/19 06:10 Creatinine 0.5 mg/dL (0.6-1.2) L 03/06/19 06:10 Est GFR ( Amer) > 60.0 ml/min (>90) 03/06/19 06:10 Est GFR (Non-Af Amer) > 60.0 ml/min 03/06/19 06:10 BUN/Creatinine Ratio 58.0 03/06/19 06:10 Glucose 101 mg/dL (70-105) 03/06/19 06:10 POC Glucose 104 MG/DL (70 - 105) 03/21/19 23:16 Whole Bld Lactic Acid 0.56 mmol/L (0.60-1.99) L 02/16/19 00:00 Calcium 9.6 mg/dL (8.6-10.3) 03/06/19 06:10 Total Bilirubin 0.5 mg/dL (0.3-1.0) 03/06/19 06:10 AST 28 U/L (13-39) 03/06/19 06:10 ALT 40 U/L (7-52) 03/06/19 06:10 Alkaline Phosphatase 110 U/L (34-104) H 03/06/19 06:10 Troponin I 0.01 ng/mL (0.01-0.05) 02/15/19 23:40 Total Protein 6.9 gm/dL (6.0-8.3) 03/06/19 06:10 Albumin 3.5 gm/dL (3.7-5.3) L 03/06/19 06:10 Globulin 3.4 gm/dL 03/06/19 06:10 Albumin/Globulin Ratio 1.0 (1.0-1.8) 03/06/19 06:10 TSH 4.06 uIU/ml (0.34-5.60) 02/15/19 23:40 Vancomycin Trough 17.7 ug/mL (5-10) H 03/02/19 10:00 Random Vancomycin 4.7 ug/mL (5.0-40.0) L 02/16/19 21:15 - Physical Exam Vitals and I&O: Vital Signs Temp 97.9 F 03/22/19 12:00 Pulse 54 03/22/19 12:00 Resp 18 03/22/19 12:00 BP 148/89 03/22/19 12:00 Pulse Ox 98 03/22/19 11:24 Intake & Output 03/21/19 03/22/19 03/22/19 18:59 06:59 18:59 Intake Total 800 Output Total 2 Balance 800 -2 Weight (lbs) 44.452 kg 44.452 kg Intake: Tube Feeding 800 Output: Urine 2 Other: # Voids 5 # Bowel Movements 1 1 Stool Characteristics Soft Brown Weight Source Bedscale Bedscale Active Medications: Current Medications Acetaminophen (Tylenol) 650 mg GT Q6H PRN PRN Reason: mild pain Stop: 04/17/19 18:42 Last Admin: 03/03/19 21:19 Dose: 650 mg Al Hydrox/Mg Hydrox/Simethicone (Maalox) 30 ml GT Q6HR PRN PRN Reason: GI DISTRESS Stop: 04/17/19 18:42 Albuterol Sulfate (Albuterol 2.5mg/3ml Neb Ud) 2.5 mg HHN Q2HR PRN PRN Reason: Shortness of Breath Stop: 04/17/19 18:42 Albuterol Sulfate (Albuterol 2.5mg/3ml Neb Ud) 2.5 mg HHN [id number] MADHURI Stop: 04/17/19 18:59 Last Admin: 03/22/19 10:36 Dose: 2.5 mg Ascorbic Acid (Vitamin C) 500 mg GT Q12HR MADHURI Stop: 04/17/19 20:59 Last Admin: 03/22/19 08:57 Dose: 500 mg Bisacodyl (Dulcolax 10 Mg Supp) 10 mg RC DAILY PRN PRN Reason: Constipation Stop: 04/17/19 20:14 Budesonide (Pulmicort) 0.5 mg HHN BIDRT MADHURI Stop: 04/18/19 06:59 Last Admin: 03/22/19 07:10 Dose: 0.5 mg Carvedilol (Coreg) 6.25 mg GT Q12H MADHURI Stop: 04/17/19 21:59 Last Admin: 03/22/19 08:59 Dose: 6.25 mg [place] Oil/[place] Balsam/Trypsin (Venelex) 1 appl TP DAILY MADHURI Stop: 04/18/19 08:59 Last Admin: 03/22/19 08:56 Dose: 1 appl Docusate Sodium (Colace) 200 mg GT Q12H PRN PRN Reason: Constipation Stop: 04/17/19 20:14 Last Admin: 03/11/19 10:21 Dose: 200 mg Enalapril Maleate (Vasotec) 2.5 mg PO BID MADHURI Stop: 04/26/19 12:24 Last Admin: 03/22/19 08:57 Dose: 2.5 mg Glucagon (Glucagen) 1 mg IM PRN PRN PRN Reason: Blood Glucose less than 70 Stop: 04/17/19 20:14 Last Admin: 02/28/19 21:12 Dose: 1 mg Lactobacillus Rhamnosus (Culturelle 15b) 1 each GT DAILY MADHURI Stop: 04/18/19 08:59 Last Admin: 03/22/19 08:56 Dose: 1 each Lorazepam (Ativan) 0.5 mg PO Q4HR PRN; Protocol PRN Reason: Agitation Stop: 05/04/19 12:08 Last Admin: 03/21/19 21:11 Dose: 0.5 mg Magnesium Hydroxide (Milk Of Magnesia) 30 ml GT HS PRN PRN Reason: Constipation Stop: 04/17/19 18:42 Magnesium Oxide (Mag-Oxide) 400 mg GT BID MADHURI Stop: 04/18/19 08:59 Last Admin: 03/22/19 08:56 Dose: 400 mg Mirtazapine (Remeron) 7.5 mg PO HS MADHURI; Protocol Stop: 05/04/19 20:59 Last Admin: 03/21/19 21:11 Dose: 7.5 mg Ondansetron HCl (Zofran) 4 mg IV Q6H PRN PRN Reason: Nausea / Vomiting Stop: 04/28/19 06:20 Quetiapine Fumarate (Seroquel) 12.5 mg PO TID MADHURI; Protocol Stop: 05/21/19 08:59 Last Admin: 03/22/19 13:05 Dose: 12.5 mg Sodium Phosphate (Fleet Enema) 135 ml RC Q48HR PRN PRN Reason: Constipation Stop: 04/17/19 20:14 General: No acute distress HEENT: Mucous membr. moist/pink Neck: Supple, JVD, +2 carotid pulse wo bruit (flat) Cardiovascular: Regular rate, Normal S1, Normal S2, Systolic murmurs Lungs: Clear to auscultation, Normal air movement Abdomen: Bowel sounds, Soft, Other (G-tube) - Procedures Procedures: Procedures Procedure Code Date INSERTION OF FEEDING DEVICE INTO STOMACH, PERC APPROACH [id number] 01/02/19 INSERTION OF INFUSION DEVICE INTO R LOW ARM, PERC APPROACH [id number] 01/02/19 INTRODUCTION OF NUTRITIONAL INTO PERIPH VEIN, PERC APPROACH [id number] 01/02/19 RESPIRATORY VENTILATION, LESS THAN 24 CONSECUTIVE HOURS [id number] 04/07/18 Assessment/Plan - Assessment Assessment: Uncontrolled hypertension MRSA sepsis Osteomyelitis of the lumbosacral spine Discitis lumbosacral spine Dementia Dysphagia with PEG placement Protein calorie malnutrition Psychosis COPD DVT upper extremity - Plan Plan: Continue antihypertensive treatment continue antibiotics Venous duplex study Discharge planning Nutritional Asmnt/Malnutr-PDOC - Dietary Evaluation Malnutrition Findings (Please click <Entered> for more info): Nutritional Asmnt/Malnutrition Start: 02/17/19 17: 23 Text: Status: Complete Freq: Protocol: Document 02/17/19 17:23 LCHENG (Rec: 02/17/19 17:28 LCHENG [email or web address]) Nutritional Asmnt/Malnutrition Patient General Information Nutritional Screening High Risk Consult Diagnosis osteomyelitis, central line placement Pertinent Medical Hx/Surgical Hx HTN, asthma/COPD, PUD/GERd, osteomylitis, anemia, PEG/ Gtube, schizophrenia, bipolar Subjective Information Consult received for ricky 12 and open wound. Pt seen resting in bed at time of visit. TF off at this time. Current Diet Order/ Nutrition Support Glucerna 1.2 at 60ml/hr x 20hr Pertinent Medications vit C, colace, heperin, humalog, culturelle, mag-oxide , vancomycin Pertinent Labs 02/17 K 3.4, Cr 0.5, glucose 94 Nutritional Hx/Data Height 1.65 m Height (Calculated Centimeters) 165.1 Current Weight (lbs) 36.741 kg Weight (Calculated Kilograms) 36.7 Weight (Calculated Grams) 38548.0 [place] Body Weight 125 Body Mass Index (BMI) 13.4 Weight Status Underweight GI Symptoms GI Symptoms None Last BM none Difficult in: None Skin Integrity/Comment: left foot and bilat arms bruises pressure area Complex - Includes bone to sacrum, skin tear to right foot ricky 12 Estimated Nutritional Goals Calories/Kcals/Kg 25-30 Kcals Calculated 8521-0374 Protein g/k.2-1.4 Protein Calculated 68-80 Fluid: ml 1425-1710ml (1ml/kcal) Nutritional Problem 1. Problem Problem increased nutrition needs Etiology impaired skin integrity Signs/Symptoms: open wound to sacrum Intervention/Recommendation Comments 1. Continue with current TF regimen with Glucerna 1.2 at 60ml/hr x 20hr. It provides 1440kcal, 72g protein, 966ml free water, meeting 100% of nutritional needs. Add Sadi BID for wound healing. 2. Monitor TF rate, tolerance, wt, skin integrity and labs 3. F/U as high risk in 2-3 days Expected Outcomes/Goals Expected Outcomes/Goals 1. Pt to meet at least 90% of nutritional needs via nutrition support with tolerance 2. Wt stability, skin to remain intact, labs to approach WNL.
--- NOTE | 2019-03-22 20:14 | Progress Notes ---
DATE: 03/22/2019 DATE OF SERVICE: 03/22/2019 SUBJECTIVE: Chart was reviewed and the patient interviewed. Also discussed the patient's condition with the staff and reviewed records and labs. The patient is still agitated and is still in irritable mood. The patient is trying to pull G-tube. The patient is still in restraints because of her agitation and trying to get off the bed and trying to pull G-tube and she is still confused. The patient also has been restless and has difficulty following staff directions. Otherwise, the patient is compliant with taking her medications because it is given through a G-tube. ASSESSMENT: The patient is still agitated and in irritable mood. TREATMENT PLAN: We will increase Seroquel to 12.5 mg 3 times a day. Also, we will continue monitoring her behavior and adjusting psychotropic medications and follow up closely. JOB# [id number]
[2019-03-23] MEDS: Albuterol Nebulizer 2.5mg/3mL HHN SCH ×4 (07:09→18:50)
[2019-03-23] MEDS: Budesonide 0.5 Mg/2 mL Ud HHN SCH ×2 (07:22→18:50)
[2019-03-23] MEDS: Lactobacillus Rhamnosus GG 15 Billion CFU CAP.SPRINK GT SCH (09:24)
[2019-03-23] MEDS: Multivitamin w/ Minerals Tab GT SCH (09:24)
[2019-03-23] MEDS: Venelex 60gm Tube TP SCH (09:26)
--- NOTE | 2019-03-23 12:39 | General Progress Note ---
Subjective - Review of Systems Service Date: 03/23/19 Subjective: Patient exam aimed discussed with the nurse chart reviewed patient's clinically unchanged Patient has swelling of the left upper extremity patient's IV site infiltrated in the same arm DVT Objective - Results Result Diagrams: 03/06/19 06:10 03/06/19 06:10 Recent Labs: Laboratory Last Values WBC 5.9 Th/cmm (4.8-10.8) 03/06/19 06:10 RBC 3.88 Mil/cmm (3.80-5.10) 03/06/19 06:10 Hgb 12.5 gm/dL (12-16) 03/06/19 06:10 Hct 37.2 % (41.0-60) L 03/06/19 06:10 MCV 95.7 fl (81-100) 03/06/19 06:10 MCH 32.1 pg (27.0-31.0) H 03/06/19 06:10 MCHC Differential 33.5 pg (28.0-36.0) 03/06/19 06:10 RDW 13.1 % (11.5-20.0) 03/06/19 06:10 Plt Count 266 Th/cmm (150-400) 03/06/19 06:10 MPV 7.5 fl 03/06/19 06:10 Neutrophils % 72.3 % (40.0-80.0) 03/06/19 06:10 Lymphocytes % 16.1 % (20.0-50.0) L 03/06/19 06:10 Monocytes % 8.6 % (2.0-10.0) 03/06/19 06:10 Eosinophils % 2.4 % (0.0-5.0) 03/06/19 06:10 Basophils % 0.6 % (0.0-2.0) 03/06/19 06:10 PT 11.6 SECONDS (9.5-11.5) H 02/15/19 23:40 INR 1.13 (0.5-1.4) 02/15/19 23:40 PTT (Actin FS) 44.0 SECONDS (26.0-38.0) H 02/15/19 23:40 Sodium 143 mEq/L (136-145) 03/06/19 06:10 Potassium 3.5 mEq/L (3.5-5.1) 03/06/19 06:10 Chloride 103 mEq/L (98-107) 03/06/19 06:10 Carbon Dioxide 31.4 mEq/L (21.0-31.0) H 03/06/19 06:10 Anion Gap 12.1 (7.0-16.0) 03/06/19 06:10 BUN 29 mg/dL (7-25) H 03/06/19 06:10 Creatinine 0.5 mg/dL (0.6-1.2) L 03/06/19 06:10 Est GFR ( Amer) > 60.0 ml/min (>90) 03/06/19 06:10 Est GFR (Non-Af Amer) > 60.0 ml/min 03/06/19 06:10 BUN/Creatinine Ratio 58.0 03/06/19 06:10 Glucose 101 mg/dL (70-105) 03/06/19 06:10 POC Glucose 103 MG/DL (70 - 105) 03/23/19 09:20 Whole Bld Lactic Acid 0.56 mmol/L (0.60-1.99) L 02/16/19 00:00 Calcium 9.6 mg/dL (8.6-10.3) 03/06/19 06:10 Total Bilirubin 0.5 mg/dL (0.3-1.0) 03/06/19 06:10 AST 28 U/L (13-39) 03/06/19 06:10 ALT 40 U/L (7-52) 03/06/19 06:10 Alkaline Phosphatase 110 U/L (34-104) H 03/06/19 06:10 Troponin I 0.01 ng/mL (0.01-0.05) 02/15/19 23:40 Total Protein 6.9 gm/dL (6.0-8.3) 03/06/19 06:10 Albumin 3.5 gm/dL (3.7-5.3) L 03/06/19 06:10 Globulin 3.4 gm/dL 03/06/19 06:10 Albumin/Globulin Ratio 1.0 (1.0-1.8) 03/06/19 06:10 TSH 4.06 uIU/ml (0.34-5.60) 04/20/19 23:40 Vancomycin Trough 17.7 ug/mL (5-10) H 03/02/19 10:00 Random Vancomycin 4.7 ug/mL (5.0-40.0) L 02/16/19 21:15 - Physical Exam Vitals and I&O: Vital Signs Temp 97.6 F 03/23/19 12:00 Pulse 78 03/23/19 12:00 Resp 20 03/23/19 12:00 BP 124/87 03/23/19 12:00 Pulse Ox 100 03/23/19 11:35 Intake & Output 03/22/19 03/23/19 03/23/19 18:59 06:59 18:59 Intake Total 1000 500 Output Total 3 Balance 1000 497 Weight (lbs) 44.452 kg 44.452 kg Intake: Tube Feeding 1000 500 Output: Urine 3 Other: # Voids 2 2 # Bowel Movements 0 0 Stool Characteristics Soft Soft Soft Brown Brown Brown Weight Source Bedscale Bedscale Active Medications: Current Medications Acetaminophen (Tylenol) 650 mg GT Q6H PRN PRN Reason: mild pain Stop: 04/17/19 18:42 Last Admin: 03/03/19 21:19 Dose: 650 mg Al Hydrox/Mg Hydrox/Simethicone (Maalox) 30 ml GT Q6HR PRN PRN Reason: GI DISTRESS Stop: 04/17/19 18:42 Albuterol Sulfate (Albuterol 2.5mg/3ml Neb Ud) 2.5 mg HHN Q2HR PRN PRN Reason: Shortness of Breath Stop: 04/17/19 18:42 Albuterol Sulfate (Albuterol 2.5mg/3ml Neb Ud) 2.5 mg HHN [id number] [facility] Stop: 04/17/19 18:59 Last Admin: 03/23/19 10:13 Dose: 2.5 mg Ascorbic Acid (Vitamin C) 500 mg GT Q12HR MADHURI Stop: 04/17/19 20:59 Last Admin: 03/23/19 09:24 Dose: 500 mg Bisacodyl (Dulcolax 10 Mg Supp) 10 mg RC DAILY PRN PRN Reason: Constipation Stop: 04/17/19 20:14 Budesonide (Pulmicort) 0.5 mg HHN BIDRT [facility] Stop: 04/18/19 06:59 Last Admin: 03/23/19 07:22 Dose: 0.5 mg Carvedilol (Coreg) 6.25 mg GT Q12H MADHURI Stop: 04/17/19 21:59 Last Admin: 03/23/19 10:13 Dose: Not Given [place] Oil/[place] Balsam/Trypsin (Venelex) 1 appl TP DAILY MADHURI Stop: 04/18/19 08:59 Last Admin: 03/23/19 09:26 Dose: 1 appl Docusate Sodium (Colace) 200 mg GT Q12H PRN PRN Reason: Constipation Stop: 04/17/19 20:14 Last Admin: 03/11/19 10:21 Dose: 200 mg Enalapril Maleate (Vasotec) 2.5 mg PO BID MADHURI Stop: 04/26/19 12:24 Last Admin: 03/23/19 09:24 Dose: Not Given Glucagon (Glucagen) 1 mg IM PRN PRN PRN Reason: Blood Glucose less than 70 Stop: 04/17/19 20:14 Last Admin: 02/28/19 21:12 Dose: 1 mg Lactobacillus Rhamnosus (Culturelle 15b) 1 each GT DAILY MADHURI Stop: 04/18/19 08:59 Last Admin: 03/23/19 09:24 Dose: 1 each Lorazepam (Ativan) 0.5 mg PO Q4HR PRN; Protocol PRN Reason: Agitation Stop: 05/04/19 12:08 Last Admin: 03/23/19 09:37 Dose: 0.5 mg Magnesium Hydroxide (Milk Of Magnesia) 30 ml GT HS PRN PRN Reason: Constipation Stop: 04/17/19 18:42 Magnesium Oxide (Mag-Oxide) 400 mg GT BID MADHURI Stop: 04/18/19 08:59 Last Admin: 03/23/19 09:24 Dose: 400 mg Mirtazapine (Remeron) 15 mg PO HS MADHURI; Protocol Stop: 05/22/19 20:59 Ondansetron HCl (Zofran) 4 mg IV Q6H PRN PRN Reason: Nausea / Vomiting Stop: 04/28/19 06:20 Quetiapine Fumarate (Seroquel) 25 mg PO TID MADHURI; Protocol Stop: 05/22/19 08:59 Last Admin: 03/23/19 09:25 Dose: 25 mg Sodium Phosphate (Fleet Enema) 135 ml RC Q48HR PRN PRN Reason: Constipation Stop: 04/17/19 20:14 General: No acute distress HEENT: Mucous membr. moist/pink Neck: Supple, JVD, +2 carotid pulse wo bruit (flat) Cardiovascular: Regular rate, Normal S1, Normal S2, Systolic murmurs Lungs: Clear to auscultation, Normal air movement Abdomen: Bowel sounds, Soft, Other (G-tube) - Procedures Procedures: Procedures Procedure Code Date INSERTION OF FEEDING DEVICE INTO STOMACH, PERC APPROACH [id number] 01/02/19 INSERTION OF INFUSION DEVICE INTO R LOW ARM, PERC APPROACH [id number] 01/02/19 INTRODUCTION OF NUTRITIONAL INTO PERIPH VEIN, PERC APPROACH [id number] 01/02/19 RESPIRATORY VENTILATION, LESS THAN 24 CONSECUTIVE HOURS 3G0769H 04/07/18 Assessment/Plan - Assessment Assessment: Uncontrolled hypertension MRSA sepsis Osteomyelitis of the lumbosacral spine Discitis lumbosacral spine Dementia Dysphagia with PEG placement Protein calorie malnutrition Psychosis COPD DVT upper extremity - Plan Plan: Continue antihypertensive treatment continue antibiotics Venous duplex study Discharge planning Nutritional Asmnt/Malnutr-PDOC - Dietary Evaluation Malnutrition Findings (Please click <Entered> for more info): Nutritional Asmnt/Malnutrition Start: 02/17/19 17: 23 Text: Status: Complete Freq: Protocol: Document 02/17/19 17:23 LCHENG (Rec: 02/17/19 17:28 [email or web address] [email or web address]) Nutritional Asmnt/Malnutrition Patient General Information Nutritional Screening High Risk Consult Diagnosis osteomyelitis, central line placement Pertinent Medical Hx/Surgical Hx HTN, asthma/COPD, PUD/GERd, osteomylitis, anemia, PEG/ Gtube, schizophrenia, bipolar Subjective Information Consult received for ricky 12 and open wound. Pt seen resting in bed at time of visit. TF off at this time. Current Diet Order/ Nutrition Support Glucerna 1.2 at 60ml/hr x 20hr Pertinent Medications vit C, colace, heperin, humalog, culturelle, mag-oxide , vancomycin Pertinent Labs 02/17 K 3.4, Cr 0.5, glucose 94 Nutritional Hx/Data Height 1.65 m Height (Calculated Centimeters) 165.1 Current Weight (lbs) 36.741 kg Weight (Calculated Kilograms) 36.7 Weight (Calculated Grams) 31436.0 [place] Body Weight 125 Body Mass Index (BMI) 13.4 Weight Status Underweight GI Symptoms GI Symptoms None Last BM none Difficult in: None Skin Integrity/Comment: left foot and bilat arms bruises pressure area Complex - Includes bone to sacrum, skin tear to right foot ricky 12 Estimated Nutritional Goals Calories/Kcals/Kg 25-30 Kcals Calculated 7458-3992 Protein g/k.2-1.4 Protein Calculated 68-80 Fluid: ml 1425-1710ml (1ml/kcal) Nutritional Problem 1. Problem Problem increased nutrition needs Etiology impaired skin integrity Signs/Symptoms: open wound to sacrum Intervention/Recommendation Comments 1. Continue with current TF regimen with Glucerna 1.2 at 60ml/hr x 20hr. It provides 1440kcal, 72g protein, 966ml free water, meeting 100% of nutritional needs. Add Sadi BID for wound healing. 2. Monitor TF rate, tolerance, wt, skin integrity and labs 3. F/U as high risk in 2-3 days Expected Outcomes/Goals Expected Outcomes/Goals 1. Pt to meet at least 90% of nutritional needs via nutrition support with tolerance 2. Wt stability, skin to remain intact, labs to approach WNL.
--- NOTE | 2019-03-23 15:22 | Internal Medicine Prog Note ---
Internal Medicine Subjective - Subjective Patient seen and examined:: chart reviewed Patient is:: arousable, in bed, confused Patient Complaints of:: other (Hx of copd.) Per staff patient has:: no adverse event, no episodes of fall, confused Internal Medicine Objective - Results Result Diagrams: 03/06/19 06:10 03/06/19 06:10 Recent Labs: Laboratory Last Values WBC 5.9 Th/cmm (4.8-10.8) 03/06/19 06:10 RBC 3.88 Mil/cmm (3.80-5.10) 03/06/19 06:10 Hgb 12.5 gm/dL (12-16) 03/06/19 06:10 Hct 37.2 % (41.0-60) L 03/06/19 06:10 MCV 95.7 fl (81-100) 03/06/19 06:10 MCH 32.1 pg (27.0-31.0) H 03/06/19 06:10 MCHC Differential 33.5 pg (28.0-36.0) 03/06/19 06:10 RDW 13.1 % (11.5-20.0) 03/06/19 06:10 Plt Count 266 Th/cmm (150-400) 03/06/19 06:10 MPV 7.5 fl 03/06/19 06:10 Neutrophils % 72.3 % (40.0-80.0) 03/06/19 06:10 Lymphocytes % 16.1 % (20.0-50.0) L 03/06/19 06:10 Monocytes % 8.6 % (2.0-10.0) 03/06/19 06:10 Eosinophils % 2.4 % (0.0-5.0) 03/06/19 06:10 Basophils % 0.6 % (0.0-2.0) 03/06/19 06:10 PT 11.6 SECONDS (9.5-11.5) H 02/15/19 23:40 INR 1.13 (0.5-1.4) 02/15/19 23:40 PTT (Actin FS) 44.0 SECONDS (26.0-38.0) H 02/15/19 23:40 Sodium 143 mEq/L (136-145) 03/06/19 06:10 Potassium 3.5 mEq/L (3.5-5.1) 03/06/19 06:10 Chloride 103 mEq/L (98-107) 03/06/19 06:10 Carbon Dioxide 31.4 mEq/L (21.0-31.0) H 03/06/19 06:10 Anion Gap 12.1 (7.0-16.0) 03/06/19 06:10 BUN 29 mg/dL (7-25) H 03/06/19 06:10 Creatinine 0.5 mg/dL (0.6-1.2) L 03/06/19 06:10 Est GFR ( Amer) > 60.0 ml/min (>90) 03/06/19 06:10 Est GFR (Non-Af Amer) > 60.0 ml/min 03/06/19 06:10 BUN/Creatinine Ratio 58.0 03/06/19 06:10 Glucose 101 mg/dL (70-105) 03/06/19 06:10 POC Glucose 103 MG/DL (70 - 105) 03/23/19 09:20 Whole Bld Lactic Acid 0.56 mmol/L (0.60-1.99) L 02/16/19 00:00 Calcium 9.6 mg/dL (8.6-10.3) 03/06/19 06:10 Total Bilirubin 0.5 mg/dL (0.3-1.0) 03/06/19 06:10 AST 28 U/L (13-39) 03/06/19 06:10 ALT 40 U/L (7-52) 03/06/19 06:10 Alkaline Phosphatase 110 U/L (34-104) H 03/06/19 06:10 Troponin I 0.01 ng/mL (0.01-0.05) 02/15/19 23:40 Total Protein 6.9 gm/dL (6.0-8.3) 03/06/19 06:10 Albumin 3.5 gm/dL (3.7-5.3) L 03/06/19 06:10 Globulin 3.4 gm/dL 03/06/19 06:10 Albumin/Globulin Ratio 1.0 (1.0-1.8) 03/06/19 06:10 TSH 4.06 uIU/ml (0.34-5.60) 02/15/19 23:40 Vancomycin Trough 17.7 ug/mL (5-10) H 03/02/19 10:00 Random Vancomycin 4.7 ug/mL (5.0-40.0) L 02/16/19 21:15 - Physical Exam Vitals and I&O: Vital Signs Temp 97.6 F 03/23/19 14:00 Pulse 78 03/23/19 14:00 Resp 20 03/23/19 14:00 BP 124/71 03/23/19 14:00 Pulse Ox 100 03/23/19 11:35 Intake & Output 03/22/19 03/23/19 03/23/19 18:59 06:59 18:59 Intake Total 1000 500 Output Total 3 Balance 1000 497 Weight (lbs) 98 lb 98 lb Intake: Tube Feeding 1000 500 Output: Urine 3 Other: # Voids 2 2 # Bowel Movements 0 0 Stool Characteristics Soft Soft Soft Brown Brown Brown Weight Source Bedscale Bedscale Active Medications: Current Medications Acetaminophen (Tylenol) 650 mg GT Q6H PRN PRN Reason: mild pain Stop: 04/17/19 18:42 Last Admin: 03/03/19 21:19 Dose: 650 mg Al Hydrox/Mg Hydrox/Simethicone (Maalox) 30 ml GT Q6HR PRN PRN Reason: GI DISTRESS Stop: 04/17/19 18:42 Albuterol Sulfate (Albuterol 2.5mg/3ml Neb Ud) 2.5 mg HHN Q2HR PRN PRN Reason: Shortness of Breath Stop: 04/17/19 18:42 Albuterol Sulfate (Albuterol 2.5mg/3ml Neb Ud) 2.5 mg HHN [id number] [facility] Stop: 04/17/19 18:59 Last Admin: 03/23/19 10:13 Dose: 2.5 mg Ascorbic Acid (Vitamin C) 500 mg GT Q12HR MADHURI Stop: 04/17/19 20:59 Last Admin: 03/23/19 09:24 Dose: 500 mg Bisacodyl (Dulcolax 10 Mg Supp) 10 mg RC DAILY PRN PRN Reason: Constipation Stop: 04/17/19 20:14 Budesonide (Pulmicort) 0.5 mg HHN BIDRT [facility] Stop: 04/18/19 06:59 Last Admin: 03/23/19 07:22 Dose: 0.5 mg Carvedilol (Coreg) 6.25 mg GT Q12H MADHURI Stop: 04/17/19 21:59 Last Admin: 03/23/19 10:13 Dose: Not Given [place] Oil/[place] Balsam/Trypsin (Venelex) 1 appl TP DAILY MADHURI Stop: 04/18/19 08:59 Last Admin: 03/23/19 09:26 Dose: 1 appl Docusate Sodium (Colace) 200 mg GT Q12H PRN PRN Reason: Constipation Stop: 04/17/19 20:14 Last Admin: 03/11/19 10:21 Dose: 200 mg Enalapril Maleate (Vasotec) 2.5 mg PO BID [facility] Stop: 04/26/19 12:24 Last Admin: 03/23/19 09:24 Dose: Not Given Glucagon (Glucagen) 1 mg IM PRN PRN PRN Reason: Blood Glucose less than 70 Stop: 04/17/19 20:14 Last Admin: 02/28/19 21:12 Dose: 1 mg Lactobacillus Rhamnosus (Culturelle 15b) 1 each GT DAILY MADHURI Stop: 04/18/19 08:59 Last Admin: 03/23/19 09:24 Dose: 1 each Lorazepam (Ativan) 0.5 mg PO Q4HR PRN; Protocol PRN Reason: Agitation Stop: 05/04/19 12:08 Last Admin: 03/23/19 09:37 Dose: 0.5 mg Magnesium Hydroxide (Milk Of Magnesia) 30 ml GT HS PRN PRN Reason: Constipation Stop: 04/17/19 18:42 Magnesium Oxide (Mag-Oxide) 400 mg GT BID [facility] Stop: 04/18/19 08:59 Last Admin: 03/23/19 09:24 Dose: 400 mg Mirtazapine (Remeron) 15 mg PO HS MADHURI; Protocol Stop: 05/22/19 20:59 Ondansetron HCl (Zofran) 4 mg IV Q6H PRN PRN Reason: Nausea / Vomiting Stop: 04/28/19 06:20 Quetiapine Fumarate (Seroquel) 25 mg PO TID MADHURI; Protocol Stop: 05/22/19 08:59 Last Admin: 03/23/19 13:38 Dose: 25 mg Sodium Phosphate (Fleet Enema) 135 ml RC Q48HR PRN PRN Reason: Constipation Stop: 04/17/19 20:14 General: weak, demented HEENT: NC/AT, PERRLA Neck: Supple, No JVD Lungs: other (No acute respiratory distress. On RA) Cardiovascular: RRR Abdomen: soft, non-tender Extremities: edema Neurological: no change, unable to follow command, other - Procedures Procedures: Procedures Procedure Code Date INSERTION OF FEEDING DEVICE INTO STOMACH, PERC APPROACH [id number] 01/02/19 INSERTION OF INFUSION DEVICE INTO R LOW ARM, PERC APPROACH [id number] 01/02/19 INTRODUCTION OF NUTRITIONAL INTO PERIPH VEIN, PERC APPROACH [id number] 01/02/19 RESPIRATORY VENTILATION, LESS THAN 24 CONSECUTIVE HOURS [id number] 04/07/18 Internal Medicine Assmt/Plan - Assessment Assessment: #Dementia #Dysphagia #COPD #HTN #Anxiety - Plan Plan: Continue current treatment. Aspiration Precaustion. Dispo planning: pending placement Fall Precaution Risk. Treatment discussed with nurse. Plans discussed with Dr. Kearns. Nutritional Asmnt/Malnutr-PDOC - Dietary Evaluation Malnutrition Findings (Please click <Entered> for more info): Nutritional Asmnt/Malnutrition Start: 02/17/19 17: 23 Text: Status: Complete Freq: Protocol: Document 02/17/19 17:23 LCHENG (Rec: 02/17/19 17:28 LCHENG [email or web address]) Nutritional Asmnt/Malnutrition Patient General Information Nutritional Screening High Risk Consult Diagnosis osteomyelitis, central line placement Pertinent Medical Hx/Surgical Hx HTN, asthma/COPD, PUD/GERd, osteomylitis, anemia, PEG/ Gtube, schizophrenia, bipolar Subjective Information Consult received for ricky 12 and open wound. Pt seen resting in bed at time of visit. TF off at this time. Current Diet Order/ Nutrition Support Glucerna 1.2 at 60ml/hr x 20hr Pertinent Medications vit C, colace, heperin, humalog, culturelle, mag-oxide , vancomycin Pertinent Labs 02/17 K 3.4, Cr 0.5, glucose 94 Nutritional Hx/Data Height 5 ft 5 in Height (Calculated Centimeters) 165.1 Current Weight (lbs) 81 lb Weight (Calculated Kilograms) 36.7 Weight (Calculated Grams) 63191.0 [place] Body Weight 125 Body Mass Index (BMI) 13.4 Weight Status Underweight GI Symptoms GI Symptoms None Last BM none Difficult in: None Skin Integrity/Comment: left foot and bilat arms bruises pressure area Complex - Includes bone to sacrum, skin tear to right foot ricky 12 Estimated Nutritional Goals Calories/Kcals/Kg 25-30 Kcals Calculated 1424-7986 Protein g/k.2-1.4 Protein Calculated 68-80 Fluid: ml 1425-1710ml (1ml/kcal) Nutritional Problem 1. Problem Problem increased nutrition needs Etiology impaired skin integrity Signs/Symptoms: open wound to sacrum Intervention/Recommendation Comments 1. Continue with current TF regimen with Glucerna 1.2 at 60ml/hr x 20hr. It provides 1440kcal, 72g protein, 966ml free water, meeting 100% of nutritional needs. Add Sadi BID for wound healing. 2. Monitor TF rate, tolerance, wt, skin integrity and labs 3. F/U as high risk in 2-3 days Expected Outcomes/Goals Expected Outcomes/Goals 1. Pt to meet at least 90% of nutritional needs via nutrition support with tolerance 2. Wt stability, skin to remain intact, labs to approach WNL.
--- NOTE | 2019-03-23 20:17 | Progress Notes ---
DATE: 03/23/2019 SUBJECTIVE: Chart was reviewed and the patient interviewed. Also discussed the patient's condition with the staff and reviewed records and labs. The patient is still extremely agitated and still in angry and in irritable mood. The patient also still trying to pull a G-tube and is still resisting care and had episodes of yelling and screaming and trying to get out of restraints and to get off bed. She also is still anxious, nervous, and restless. Otherwise, the patient is compliant with taking her medications through the G-tube, but she is still unable to follow directions. ASSESSMENT: The patient is still agitated and in irritable mood and needs lots of redirections. TREATMENT PLAN: We will continue monitoring her behavior and her condition. Also, continue to work on her anger and her irritability. Also, continue adjusting psychotropic medications and will increase Seroquel to 25 mg 3 times a day and also will increase Remeron to 15 mg at bedtime and we will continue to follow up her behavior and her condition closely. JOB# [id number]
[2019-03-24] MEDS: Albuterol Nebulizer 2.5mg/3mL HHN SCH ×4 (07:05→18:44)
[2019-03-24] MEDS: Budesonide 0.5 Mg/2 mL Ud HHN SCH ×2 (07:12→18:45)
--- NOTE | 2019-03-24 08:46 | Internal Medicine Prog Note ---
Internal Medicine Subjective - Subjective Service Date: 03/24/19 Patient is:: awake, in bed, confused Patient Complaints of:: other (Hx of copd.) Per staff patient has:: no adverse event, no episodes of fall, confused Internal Medicine Objective - Results Result Diagrams: 03/06/19 06:10 03/06/19 06:10 Recent Labs: Laboratory Last Values WBC 5.9 Th/cmm (4.8-10.8) 03/06/19 06:10 RBC 3.88 Mil/cmm (3.80-5.10) 03/06/19 06:10 Hgb 12.5 gm/dL (12-16) 03/06/19 06:10 Hct 37.2 % (41.0-60) L 03/06/19 06:10 MCV 95.7 fl (81-100) 03/06/19 06:10 MCH 32.1 pg (27.0-31.0) H 03/06/19 06:10 MCHC Differential 33.5 pg (28.0-36.0) 03/06/19 06:10 RDW 13.1 % (11.5-20.0) 03/06/19 06:10 Plt Count 266 Th/cmm (150-400) 03/06/19 06:10 MPV 7.5 fl 03/06/19 06:10 Neutrophils % 72.3 % (40.0-80.0) 03/06/19 06:10 Lymphocytes % 16.1 % (20.0-50.0) L 03/06/19 06:10 Monocytes % 8.6 % (2.0-10.0) 03/06/19 06:10 Eosinophils % 2.4 % (0.0-5.0) 03/06/19 06:10 Basophils % 0.6 % (0.0-2.0) 03/06/19 06:10 PT 11.6 SECONDS (9.5-11.5) H 02/15/19 23:40 INR 1.13 (0.5-1.4) 02/15/19 23:40 PTT (Actin FS) 44.0 SECONDS (26.0-38.0) H 02/15/19 23:40 Sodium 143 mEq/L (136-145) 03/06/19 06:10 Potassium 3.5 mEq/L (3.5-5.1) 03/06/19 06:10 Chloride 103 mEq/L (98-107) 03/06/19 06:10 Carbon Dioxide 31.4 mEq/L (21.0-31.0) H 03/06/19 06:10 Anion Gap 12.1 (7.0-16.0) 03/06/19 06:10 BUN 29 mg/dL (7-25) H 03/06/19 06:10 Creatinine 0.5 mg/dL (0.6-1.2) L 03/06/19 06:10 Est GFR ( Amer) > 60.0 ml/min (>90) 03/06/19 06:10 Est GFR (Non-Af Amer) > 60.0 ml/min 03/06/19 06:10 BUN/Creatinine Ratio 58.0 03/06/19 06:10 Glucose 101 mg/dL (70-105) 03/06/19 06:10 POC Glucose 103 MG/DL (70 - 105) 03/23/19 09:20 Whole Bld Lactic Acid 0.56 mmol/L (0.60-1.99) L 02/16/19 00:00 Calcium 9.6 mg/dL (8.6-10.3) 03/06/19 06:10 Total Bilirubin 0.5 mg/dL (0.3-1.0) 03/06/19 06:10 AST 28 U/L (13-39) 03/06/19 06:10 ALT 40 U/L (7-52) 03/06/19 06:10 Alkaline Phosphatase 110 U/L (34-104) H 03/06/19 06:10 Troponin I 0.01 ng/mL (0.01-0.05) 02/15/19 23:40 Total Protein 6.9 gm/dL (6.0-8.3) 03/06/19 06:10 Albumin 3.5 gm/dL (3.7-5.3) L 03/06/19 06:10 Globulin 3.4 gm/dL 03/06/19 06:10 Albumin/Globulin Ratio 1.0 (1.0-1.8) 03/06/19 06:10 TSH 4.06 uIU/ml (0.34-5.60) 02/15/19 23:40 Vancomycin Trough 17.7 ug/mL (5-10) H 03/02/19 10:00 Random Vancomycin 4.7 ug/mL (5.0-40.0) L 02/16/19 21:15 - Physical Exam Vitals and I&O: Vital Signs Temp 98.0 F 03/24/19 08:00 Pulse 68 03/24/19 08:00 Resp 18 03/24/19 08:00 BP 83/44 03/24/19 08:00 Pulse Ox 98 03/24/19 08:00 Intake & Output 03/23/19 03/24/19 03/24/19 18:59 06:59 18:59 Intake Total 874 Balance 874 Weight (lbs) 44.452 kg Intake: Tube Feeding 474 Other 400 Other: # Voids 3 Stool Characteristics Soft Soft Brown Brown Weight Source Bedscale Active Medications: Current Medications Acetaminophen (Tylenol) 650 mg GT Q6H PRN PRN Reason: mild pain Stop: 04/17/19 18:42 Last Admin: 03/03/19 21:19 Dose: 650 mg Al Hydrox/Mg Hydrox/Simethicone (Maalox) 30 ml GT Q6HR PRN PRN Reason: GI DISTRESS Stop: 04/17/19 18:42 Albuterol Sulfate (Albuterol 2.5mg/3ml Neb Ud) 2.5 mg HHN Q2HR PRN PRN Reason: Shortness of Breath Stop: 04/17/19 18:42 Albuterol Sulfate (Albuterol 2.5mg/3ml Neb Ud) 2.5 mg HHN [id number] [facility] Stop: 04/17/19 18:59 Last Admin: 03/24/19 07:05 Dose: 2.5 mg Ascorbic Acid (Vitamin C) 500 mg GT Q12HR MADHURI Stop: 04/17/19 20:59 Last Admin: 03/23/19 20:37 Dose: 500 mg Bisacodyl (Dulcolax 10 Mg Supp) 10 mg RC DAILY PRN PRN Reason: Constipation Stop: 04/17/19 20:14 Budesonide (Pulmicort) 0.5 mg HHN BIDRT MADHURI Stop: 04/18/19 06:59 Last Admin: 03/24/19 07:12 Dose: 0.5 mg Carvedilol (Coreg) 6.25 mg GT Q12H MADHURI Stop: 04/17/19 21:59 Last Admin: 03/23/19 21:00 Dose: 6.25 mg [place] Oil/[place] Balsam/Trypsin (Venelex) 1 appl TP DAILY MADHURI Stop: 04/18/19 08:59 Last Admin: 03/23/19 09:26 Dose: 1 appl Docusate Sodium (Colace) 200 mg GT Q12H PRN PRN Reason: Constipation Stop: 04/17/19 20:14 Last Admin: 03/11/19 10:21 Dose: 200 mg Enalapril Maleate (Vasotec) 2.5 mg PO BID MADHURI Stop: 04/26/19 12:24 Last Admin: 03/23/19 18:02 Dose: 2.5 mg Glucagon (Glucagen) 1 mg IM PRN PRN PRN Reason: Blood Glucose less than 70 Stop: 04/17/19 20:14 Last Admin: 02/28/19 21:12 Dose: 1 mg Lactobacillus Rhamnosus (Culturelle 15b) 1 each GT DAILY MADHURI Stop: 04/18/19 08:59 Last Admin: 03/23/19 09:24 Dose: 1 each Lorazepam (Ativan) 0.5 mg PO Q4HR PRN; Protocol PRN Reason: Agitation Stop: 05/04/19 12:08 Last Admin: 03/23/19 09:37 Dose: 0.5 mg Magnesium Hydroxide (Milk Of Magnesia) 30 ml GT HS PRN PRN Reason: Constipation Stop: 04/17/19 18:42 Magnesium Oxide (Mag-Oxide) 400 mg GT BID MADHURI Stop: 04/18/19 08:59 Last Admin: 03/23/19 17:59 Dose: 400 mg Mirtazapine (Remeron) 15 mg PO HS MADHURI; Protocol Stop: 05/22/19 20:59 Last Admin: 03/23/19 20:37 Dose: 15 mg Ondansetron HCl (Zofran) 4 mg IV Q6H PRN PRN Reason: Nausea / Vomiting Stop: 04/28/19 06:20 Quetiapine Fumarate (Seroquel) 25 mg PO TID MADHURI; Protocol Stop: 05/22/19 08:59 Last Admin: 03/23/19 20:37 Dose: 25 mg Sodium Phosphate (Fleet Enema) 135 ml RC Q48HR PRN PRN Reason: Constipation Stop: 04/17/19 20:14 Physical Exam: 58 y/o female patient has mild edema of the left upper extremity, Dvt of upper extremity which patient is getting treatment for and has been improving. General: weak, demented HEENT: NC/AT, PERRLA Neck: Supple, No JVD Lungs: other (No acute respiratory distress. On RA) Cardiovascular: RRR Abdomen: soft, non-tender Extremities: edema Neurological: no change, unable to follow command, other - Procedures Procedures: Procedures Procedure Code Date INSERTION OF FEEDING DEVICE INTO STOMACH, PERC APPROACH [id number] 01/02/19 INSERTION OF INFUSION DEVICE INTO R LOW ARM, PERC APPROACH [id number] 01/02/19 INTRODUCTION OF NUTRITIONAL INTO PERIPH VEIN, PERC APPROACH [id number] 01/02/19 RESPIRATORY VENTILATION, LESS THAN 24 CONSECUTIVE HOURS [id number] 04/07/18 Internal Medicine Assmt/Plan - Assessment Assessment: G-tube status Edema of Left upper extremity Hypertension. MRSA sepsis, treated Diskitis. Osteomyelitis of lumbar spine Anemia. Protein Malnutrition. S/p Deccanulation. S/p Percutaneous Endoscopic gastrostomy. Less agitated Dementia Psychosis Chronic Copd Protein-calorie malnutrition Failure to thrive DVT of upper extremity - Plan Plan: Continuation of care Continue present meds as directed Monitor Pain Continue to follow up with Psych Monitor Vitals, Labs and Pain management Fall precaution Continue present care management Nutritional Asmnt/Malnutr-PDOC - Dietary Evaluation Malnutrition Findings (Please click <Entered> for more info): Nutritional Asmnt/Malnutrition Start: 02/17/19 17: 23 Text: Status: Complete Freq: Protocol: Document 02/17/19 17:23 LCHENG (Rec: 02/17/19 17:28 [email or web address] [email or web address]) Nutritional Asmnt/Malnutrition Patient General Information Nutritional Screening High Risk Consult Diagnosis osteomyelitis, central line placement Pertinent Medical Hx/Surgical Hx HTN, asthma/COPD, PUD/GERd, osteomylitis, anemia, PEG/ Gtube, schizophrenia, bipolar Subjective Information Consult received for ricky 12 and open wound. Pt seen resting in bed at time of visit. TF off at this time. Current Diet Order/ Nutrition Support Glucerna 1.2 at 60ml/hr x 20hr Pertinent Medications vit C, colace, heperin, humalog, culturelle, mag-oxide , vancomycin Pertinent Labs 02/17 K 3.4, Cr 0.5, glucose 94 Nutritional Hx/Data Height 1.65 m Height (Calculated Centimeters) 165.1 Current Weight (lbs) 36.741 kg Weight (Calculated Kilograms) 36.7 Weight (Calculated Grams) 03349.0 [place] Body Weight 125 Body Mass Index (BMI) 13.4 Weight Status Underweight GI Symptoms GI Symptoms None Last BM none Difficult in: None Skin Integrity/Comment: left foot and bilat arms bruises pressure area Complex - Includes bone to sacrum, skin tear to right foot ricky 12 Estimated Nutritional Goals Calories/Kcals/Kg 25-30 Kcals Calculated 9538-9688 Protein g/k.2-1.4 Protein Calculated 68-80 Fluid: ml 1425-1710ml (1ml/kcal) Nutritional Problem 1. Problem Problem increased nutrition needs Etiology impaired skin integrity Signs/Symptoms: open wound to sacrum Intervention/Recommendation Comments 1. Continue with current TF regimen with Glucerna 1.2 at 60ml/hr x 20hr. It provides 1440kcal, 72g protein, 966ml free water, meeting 100% of nutritional needs. Add Sadi BID for wound healing. 2. Monitor TF rate, tolerance, wt, skin integrity and labs 3. F/U as high risk in 2-3 days Expected Outcomes/Goals Expected Outcomes/Goals 1. Pt to meet at least 90% of nutritional needs via nutrition support with tolerance 2. Wt stability, skin to remain intact, labs to approach WNL.
[2019-03-24] MEDS: Lactobacillus Rhamnosus GG 15 Billion CFU CAP.SPRINK GT SCH (09:41)
[2019-03-24] MEDS: Multivitamin w/ Minerals Tab GT SCH (09:41)
[2019-03-24] MEDS: Venelex 60gm Tube TP SCH (09:42)
--- NOTE | 2019-03-24 16:03 | General Progress Note ---
Subjective - Review of Systems Service Date: 03/24/19 Subjective: Patient exam aimed discussed with the nurse chart reviewed patient's clinically unchanged Patient has swelling of the left upper extremity patient's IV site infiltrated in the same arm DVT Objective - Results Result Diagrams: 03/06/19 06:10 03/06/19 06:10 Recent Labs: Laboratory Last Values WBC 5.9 Th/cmm (4.8-10.8) 03/06/19 06:10 RBC 3.88 Mil/cmm (3.80-5.10) 03/06/19 06:10 Hgb 12.5 gm/dL (12-16) 03/06/19 06:10 Hct 37.2 % (41.0-60) L 03/06/19 06:10 MCV 95.7 fl (81-100) 03/06/19 06:10 MCH 32.1 pg (27.0-31.0) H 03/06/19 06:10 MCHC Differential 33.5 pg (28.0-36.0) 03/06/19 06:10 RDW 13.1 % (11.5-20.0) 03/06/19 06:10 Plt Count 266 Th/cmm (150-400) 03/06/19 06:10 MPV 7.5 fl 03/06/19 06:10 Neutrophils % 72.3 % (40.0-80.0) 03/06/19 06:10 Lymphocytes % 16.1 % (20.0-50.0) L 03/06/19 06:10 Monocytes % 8.6 % (2.0-10.0) 03/06/19 06:10 Eosinophils % 2.4 % (0.0-5.0) 03/06/19 06:10 Basophils % 0.6 % (0.0-2.0) 03/06/19 06:10 PT 11.6 SECONDS (9.5-11.5) H 02/15/19 23:40 INR 1.13 (0.5-1.4) 02/15/19 23:40 PTT (Actin FS) 44.0 SECONDS (26.0-38.0) H 02/15/19 23:40 Sodium 143 mEq/L (136-145) 03/06/19 06:10 Potassium 3.5 mEq/L (3.5-5.1) 03/06/19 06:10 Chloride 103 mEq/L (98-107) 03/06/19 06:10 Carbon Dioxide 31.4 mEq/L (21.0-31.0) H 03/06/19 06:10 Anion Gap 12.1 (7.0-16.0) 03/06/19 06:10 BUN 29 mg/dL (7-25) H 03/06/19 06:10 Creatinine 0.5 mg/dL (0.6-1.2) L 03/06/19 06:10 Est GFR ( Amer) > 60.0 ml/min (>90) 03/06/19 06:10 Est GFR (Non-Af Amer) > 60.0 ml/min 03/06/19 06:10 BUN/Creatinine Ratio 58.0 03/06/19 06:10 Glucose 101 mg/dL (70-105) 03/06/19 06:10 POC Glucose 103 MG/DL (70 - 105) 03/23/19 09:20 Whole Bld Lactic Acid 0.56 mmol/L (0.60-1.99) L 02/16/19 00:00 Calcium 9.6 mg/dL (8.6-10.3) 03/06/19 06:10 Total Bilirubin 0.5 mg/dL (0.3-1.0) 03/06/19 06:10 AST 28 U/L (13-39) 03/06/19 06:10 ALT 40 U/L (7-52) 03/06/19 06:10 Alkaline Phosphatase 110 U/L (34-104) H 03/06/19 06:10 Troponin I 0.01 ng/mL (0.01-0.05) 02/15/19 23:40 Total Protein 6.9 gm/dL (6.0-8.3) 03/06/19 06:10 Albumin 3.5 gm/dL (3.7-5.3) L 03/06/19 06:10 Globulin 3.4 gm/dL 03/06/19 06:10 Albumin/Globulin Ratio 1.0 (1.0-1.8) 03/06/19 06:10 TSH 4.06 uIU/ml (0.34-5.60) 02/15/19 23:40 Vancomycin Trough 17.7 ug/mL (5-10) H 03/02/19 10:00 Random Vancomycin 4.7 ug/mL (5.0-40.0) L 02/16/19 21:15 - Physical Exam Vitals and I&O: Vital Signs Temp 97.6 F 03/24/19 14:00 Pulse 71 03/24/19 14:00 Resp 20 03/24/19 14:00 BP 111/75 03/24/19 14:00 Pulse Ox 97 03/24/19 14:00 Intake & Output 03/23/19 03/24/19 03/24/19 18:59 06:59 18:59 Intake Total 874 Balance 874 Weight (lbs) 44.452 kg 44.452 kg Intake: Tube Feeding 474 Other 400 Other: # Voids 3 Stool Characteristics Soft Soft Soft Brown Brown Brown Weight Source Bedscale Bedscale Active Medications: Current Medications Acetaminophen (Tylenol) 650 mg GT Q6H PRN PRN Reason: mild pain Stop: 04/17/19 18:42 Last Admin: 03/03/19 21:19 Dose: 650 mg Al Hydrox/Mg Hydrox/Simethicone (Maalox) 30 ml GT Q6HR PRN PRN Reason: GI DISTRESS Stop: 04/17/19 18:42 Albuterol Sulfate (Albuterol 2.5mg/3ml Neb Ud) 2.5 mg HHN Q2HR PRN PRN Reason: Shortness of Breath Stop: 04/17/19 18:42 Albuterol Sulfate (Albuterol 2.5mg/3ml Neb Ud) 2.5 mg HHN [id number] MADHURI Stop: 04/17/19 18:59 Last Admin: 03/24/19 14:00 Dose: 2.5 mg Ascorbic Acid (Vitamin C) 500 mg GT Q12HR MADHURI Stop: 04/17/19 20:59 Last Admin: 03/24/19 09:41 Dose: 500 mg Bisacodyl (Dulcolax 10 Mg Supp) 10 mg RC DAILY PRN PRN Reason: Constipation Stop: 04/17/19 20:14 Budesonide (Pulmicort) 0.5 mg HHN BIDRT MADHURI Stop: 04/18/19 06:59 Last Admin: 03/24/19 07:12 Dose: 0.5 mg Carvedilol (Coreg) 6.25 mg GT Q12H MADHURI Stop: 04/17/19 21:59 Last Admin: 03/24/19 10:00 Dose: Not Given [place] Oil/[place] Balsam/Trypsin (Venelex) 1 appl TP DAILY MADHURI Stop: 04/18/19 08:59 Last Admin: 03/24/19 09:42 Dose: 1 appl Docusate Sodium (Colace) 200 mg GT Q12H PRN PRN Reason: Constipation Stop: 04/17/19 20:14 Last Admin: 03/11/19 10:21 Dose: 200 mg Enalapril Maleate (Vasotec) 2.5 mg PO BID MADHURI Stop: 04/26/19 12:24 Last Admin: 03/24/19 09:41 Dose: Not Given Glucagon (Glucagen) 1 mg IM PRN PRN PRN Reason: Blood Glucose less than 70 Stop: 04/17/19 20:14 Last Admin: 02/28/19 21:12 Dose: 1 mg Lactobacillus Rhamnosus (Culturelle 15b) 1 each GT DAILY MADHURI Stop: 04/18/19 08:59 Last Admin: 03/24/19 09:41 Dose: 1 each Lorazepam (Ativan) 0.5 mg PO Q4HR PRN; Protocol PRN Reason: Agitation Stop: 05/04/19 12:08 Last Admin: 03/23/19 09:37 Dose: 0.5 mg Magnesium Hydroxide (Milk Of Magnesia) 30 ml GT HS PRN PRN Reason: Constipation Stop: 04/17/19 18:42 Magnesium Oxide (Mag-Oxide) 400 mg GT BID MADHURI Stop: 04/18/19 08:59 Last Admin: 03/24/19 09:41 Dose: 400 mg Mirtazapine (Remeron) 15 mg PO HS MADHURI; Protocol Stop: 05/22/19 20:59 Last Admin: 03/23/19 20:37 Dose: 15 mg Ondansetron HCl (Zofran) 4 mg IV Q6H PRN PRN Reason: Nausea / Vomiting Stop: 04/28/19 06:20 Quetiapine Fumarate (Seroquel) 25 mg PO TID MADHURI; Protocol Stop: 05/22/19 08:59 Last Admin: 03/24/19 14:55 Dose: 25 mg Sodium Phosphate (Fleet Enema) 135 ml RC Q48HR PRN PRN Reason: Constipation Stop: 04/17/19 20:14 General: No acute distress HEENT: Mucous membr. moist/pink Neck: Supple, JVD, +2 carotid pulse wo bruit (flat) Cardiovascular: Regular rate, Normal S1, Normal S2, Systolic murmurs Lungs: Clear to auscultation, Normal air movement Abdomen: Bowel sounds, Soft, Other (G-tube) - Procedures Procedures: Procedures Procedure Code Date INSERTION OF FEEDING DEVICE INTO STOMACH, PERC APPROACH [id number] 01/02/19 INSERTION OF INFUSION DEVICE INTO R LOW ARM, PERC APPROACH [id number] 01/02/19 INTRODUCTION OF NUTRITIONAL INTO PERIPH VEIN, PERC APPROACH [id number] 01/02/19 RESPIRATORY VENTILATION, LESS THAN 24 CONSECUTIVE HOURS [id number] 04/07/18 Assessment/Plan - Assessment Assessment: Uncontrolled hypertension MRSA sepsis Osteomyelitis of the lumbosacral spine Discitis lumbosacral spine Dementia Dysphagia with PEG placement Protein calorie malnutrition Psychosis COPD DVT upper extremity - Plan Plan: Continue antihypertensive treatment continue antibiotics Venous duplex study Discharge planning Nutritional Asmnt/Malnutr-PDOC - Dietary Evaluation Malnutrition Findings (Please click <Entered> for more info): Nutritional Asmnt/Malnutrition Start: 02/17/19 17: 23 Text: Status: Complete Freq: Protocol: Document 02/17/19 17:23 LCHENG (Rec: 02/17/19 17:28 LCHENG [email or web address]) Nutritional Asmnt/Malnutrition Patient General Information Nutritional Screening High Risk Consult Diagnosis osteomyelitis, central line placement Pertinent Medical Hx/Surgical Hx HTN, asthma/COPD, PUD/GERd, osteomylitis, anemia, PEG/ Gtube, schizophrenia, bipolar Subjective Information Consult received for ricky 12 and open wound. Pt seen resting in bed at time of visit. TF off at this time. Current Diet Order/ Nutrition Support Glucerna 1.2 at 60ml/hr x 20hr Pertinent Medications vit C, colace, heperin, humalog, culturelle, mag-oxide , vancomycin Pertinent Labs 02/17 K 3.4, Cr 0.5, glucose 94 Nutritional Hx/Data Height 1.65 m Height (Calculated Centimeters) 165.1 Current Weight (lbs) 36.741 kg Weight (Calculated Kilograms) 36.7 Weight (Calculated Grams) 33758.0 [place] Body Weight 125 Body Mass Index (BMI) 13.4 Weight Status Underweight GI Symptoms GI Symptoms None Last BM none Difficult in: None Skin Integrity/Comment: left foot and bilat arms bruises pressure area Complex - Includes bone to sacrum, skin tear to right foot ricky 12 Estimated Nutritional Goals Calories/Kcals/Kg 25-30 Kcals Calculated 6912-4782 Protein g/k.2-1.4 Protein Calculated 68-80 Fluid: ml 1425-1710ml (1ml/kcal) Nutritional Problem 1. Problem Problem increased nutrition needs Etiology impaired skin integrity Signs/Symptoms: open wound to sacrum Intervention/Recommendation Comments 1. Continue with current TF regimen with Glucerna 1.2 at 60ml/hr x 20hr. It provides 1440kcal, 72g protein, 966ml free water, meeting 100% of nutritional needs. Add Sadi BID for wound healing. 2. Monitor TF rate, tolerance, wt, skin integrity and labs 3. F/U as high risk in 2-3 days Expected Outcomes/Goals Expected Outcomes/Goals 1. Pt to meet at least 90% of nutritional needs via nutrition support with tolerance 2. Wt stability, skin to remain intact, labs to approach WNL.
[2019-03-25] MEDS: Budesonide 0.5 Mg/2 mL Ud HHN SCH ×2 (06:45→19:03)
[2019-03-25] MEDS: Albuterol Nebulizer 2.5mg/3mL HHN SCH ×4 (07:05→19:03)
[2019-03-25] MEDS: Multivitamin w/ Minerals Tab GT SCH (08:34)
[2019-03-25] MEDS: Lactobacillus Rhamnosus GG 15 Billion CFU CAP.SPRINK GT SCH (08:34)
[2019-03-25] MEDS: Venelex 60gm Tube TP SCH (08:42)
--- NOTE | 2019-03-25 11:42 | General Progress Note ---
Subjective - Review of Systems Service Date: 03/25/19 Subjective: Patient exam aimed discussed with the nurse chart reviewed patient's clinically unchanged Patient has swelling of the left upper extremity patient's IV site infiltrated in the same arm DVT Objective - Results Result Diagrams: 03/06/19 06:10 03/06/19 06:10 Recent Labs: Laboratory Last Values WBC 5.9 Th/cmm (4.8-10.8) 03/06/19 06:10 RBC 3.88 Mil/cmm (3.80-5.10) 03/06/19 06:10 Hgb 12.5 gm/dL (12-16) 03/06/19 06:10 Hct 37.2 % (41.0-60) L 03/06/19 06:10 MCV 95.7 fl (81-100) 03/06/19 06:10 MCH 32.1 pg (27.0-31.0) H 03/06/19 06:10 MCHC Differential 33.5 pg (28.0-36.0) 03/06/19 06:10 RDW 13.1 % (11.5-20.0) 03/06/19 06:10 Plt Count 266 Th/cmm (150-400) 03/06/19 06:10 MPV 7.5 fl 03/06/19 06:10 Neutrophils % 72.3 % (40.0-80.0) 03/06/19 06:10 Lymphocytes % 16.1 % (20.0-50.0) L 03/06/19 06:10 Monocytes % 8.6 % (2.0-10.0) 03/06/19 06:10 Eosinophils % 2.4 % (0.0-5.0) 03/06/19 06:10 Basophils % 0.6 % (0.0-2.0) 03/06/19 06:10 PT 11.6 SECONDS (9.5-11.5) H 02/15/19 23:40 INR 1.13 (0.5-1.4) 02/15/19 23:40 PTT (Actin FS) 44.0 SECONDS (26.0-38.0) H 02/15/19 23:40 Sodium 143 mEq/L (136-145) 03/06/19 06:10 Potassium 3.5 mEq/L (3.5-5.1) 03/06/19 06:10 Chloride 103 mEq/L (98-107) 03/06/19 06:10 Carbon Dioxide 31.4 mEq/L (21.0-31.0) H 03/06/19 06:10 Anion Gap 12.1 (7.0-16.0) 03/06/19 06:10 BUN 29 mg/dL (7-25) H 03/06/19 06:10 Creatinine 0.5 mg/dL (0.6-1.2) L 03/06/19 06:10 Est GFR ( Amer) > 60.0 ml/min (>90) 03/06/19 06:10 Est GFR (Non-Af Amer) > 60.0 ml/min 03/06/19 06:10 BUN/Creatinine Ratio 58.0 03/06/19 06:10 Glucose 101 mg/dL (70-105) 03/06/19 06:10 POC Glucose 92 MG/DL (70 - 105) 03/25/19 06:40 Whole Bld Lactic Acid 0.56 mmol/L (0.60-1.99) L 02/16/19 00:00 Calcium 9.6 mg/dL (8.6-10.3) 03/06/19 06:10 Total Bilirubin 0.5 mg/dL (0.3-1.0) 03/06/19 06:10 AST 28 U/L (13-39) 03/06/19 06:10 ALT 40 U/L (7-52) 03/06/19 06:10 Alkaline Phosphatase 110 U/L (34-104) H 03/06/19 06:10 Troponin I 0.01 ng/mL (0.01-0.05) 02/15/19 23:40 Total Protein 6.9 gm/dL (6.0-8.3) 03/06/19 06:10 Albumin 3.5 gm/dL (3.7-5.3) L 03/06/19 06:10 Globulin 3.4 gm/dL 03/06/19 06:10 Albumin/Globulin Ratio 1.0 (1.0-1.8) 03/06/19 06:10 TSH 4.06 uIU/ml (0.34-5.60) 02/15/19 23:40 Vancomycin Trough 17.7 ug/mL (5-10) H 03/02/19 10:00 Random Vancomycin 4.7 ug/mL (5.0-40.0) L 02/16/19 21:15 - Physical Exam Vitals and I&O: Vital Signs Temp 98.2 F 03/25/19 08:00 Pulse 83 03/25/19 08:38 Resp 20 03/25/19 08:00 BP 114/78 03/25/19 08:38 Pulse Ox 97 03/25/19 07:46 Intake & Output 03/24/19 03/25/19 03/25/19 18:59 06:59 18:59 Intake Total 670 540 Balance 670 540 Weight (lbs) 44.452 kg 44.77 kg 44.77 kg Intake: Tube Feeding 470 290 Other 200 250 Other: # Voids 3 2 Stool Characteristics Soft Soft Soft Brown Brown Brown Weight Source Bedscale Bedscale Bedscale Active Medications: Current Medications Acetaminophen (Tylenol) 650 mg GT Q6H PRN PRN Reason: mild pain Stop: 04/17/19 18:42 Last Admin: 03/03/19 21:19 Dose: 650 mg Al Hydrox/Mg Hydrox/Simethicone (Maalox) 30 ml GT Q6HR PRN PRN Reason: GI DISTRESS Stop: 04/17/19 18:42 Albuterol Sulfate (Albuterol 2.5mg/3ml Neb Ud) 2.5 mg HHN Q2HR PRN PRN Reason: Shortness of Breath Stop: 04/17/19 18:42 Albuterol Sulfate (Albuterol 2.5mg/3ml Neb Ud) 2.5 mg HHN [id number] MADHURI Stop: 04/17/19 18:59 Last Admin: 03/24/19 18:44 Dose: 2.5 mg Ascorbic Acid (Vitamin C) 500 mg GT Q12HR MADHURI Stop: 04/17/19 20:59 Last Admin: 03/25/19 08:38 Dose: 500 mg Bisacodyl (Dulcolax 10 Mg Supp) 10 mg RC DAILY PRN PRN Reason: Constipation Stop: 04/17/19 20:14 Budesonide (Pulmicort) 0.5 mg HHN BIDRT MADHURI Stop: 04/18/19 06:59 Last Admin: 03/25/19 06:45 Dose: 0.5 mg Carvedilol (Coreg) 6.25 mg GT Q12H MADHURI Stop: 04/17/19 21:59 Last Admin: 03/24/19 21:51 Dose: Not Given [place] Oil/[place] Balsam/Trypsin (Venelex) 1 appl TP DAILY MADHURI Stop: 04/18/19 08:59 Last Admin: 03/25/19 08:42 Dose: 1 appl Docusate Sodium (Colace) 200 mg GT Q12H PRN PRN Reason: Constipation Stop: 04/17/19 20:14 Last Admin: 03/11/19 10:21 Dose: 200 mg Enalapril Maleate (Vasotec) 2.5 mg PO BID MADHURI Stop: 04/26/19 12:24 Last Admin: 03/25/19 08:38 Dose: Not Given Glucagon (Glucagen) 1 mg IM PRN PRN PRN Reason: Blood Glucose less than 70 Stop: 04/17/19 20:14 Last Admin: 02/28/19 21:12 Dose: 1 mg Lactobacillus Rhamnosus (Culturelle 15b) 1 each GT DAILY MADHURI Stop: 04/18/19 08:59 Last Admin: 03/25/19 08:34 Dose: 1 each Lorazepam (Ativan) 0.5 mg PO Q4HR PRN; Protocol PRN Reason: Agitation Stop: 05/04/19 12:08 Last Admin: 03/24/19 20:18 Dose: 0.5 mg Magnesium Hydroxide (Milk Of Magnesia) 30 ml GT HS PRN PRN Reason: Constipation Stop: 04/17/19 18:42 Magnesium Oxide (Mag-Oxide) 400 mg GT BID MADHURI Stop: 04/18/19 08:59 Last Admin: 03/25/19 08:38 Dose: 400 mg Mirtazapine (Remeron) 15 mg PO HS MADHURI; Protocol Stop: 05/22/19 20:59 Last Admin: 03/24/19 20:17 Dose: 15 mg Ondansetron HCl (Zofran) 4 mg IV Q6H PRN PRN Reason: Nausea / Vomiting Stop: 04/28/19 06:20 Quetiapine Fumarate (Seroquel) 25 mg PO TID MADHURI; Protocol Stop: 05/22/19 08:59 Last Admin: 03/25/19 08:38 Dose: 25 mg Sodium Phosphate (Fleet Enema) 135 ml RC Q48HR PRN PRN Reason: Constipation Stop: 04/17/19 20:14 General: No acute distress HEENT: Mucous membr. moist/pink Neck: Supple, JVD, +2 carotid pulse wo bruit (flat) Cardiovascular: Regular rate, Normal S1, Normal S2, Systolic murmurs Lungs: Clear to auscultation, Normal air movement Abdomen: Bowel sounds, Soft, Other (G-tube) - Procedures Procedures: Procedures Procedure Code Date INSERTION OF FEEDING DEVICE INTO STOMACH, PERC APPROACH [id number] 01/02/19 INSERTION OF INFUSION DEVICE INTO R LOW ARM, PERC APPROACH [id number] 01/02/19 INTRODUCTION OF NUTRITIONAL INTO PERIPH VEIN, PERC APPROACH [id number] 01/02/19 RESPIRATORY VENTILATION, LESS THAN 24 CONSECUTIVE HOURS [id number] 04/07/18 Assessment/Plan - Assessment Assessment: Uncontrolled hypertension MRSA sepsis Osteomyelitis of the lumbosacral spine Discitis lumbosacral spine Dementia Dysphagia with PEG placement Protein calorie malnutrition Psychosis COPD DVT upper extremity - Plan Plan: Continue antihypertensive treatment continue antibiotics Venous duplex study Discharge planning Nutritional Asmnt/Malnutr-PDOC - Dietary Evaluation Malnutrition Findings (Please click <Entered> for more info): Nutritional Asmnt/Malnutrition Start: 02/17/19 17: 23 Text: Status: Complete Freq: Protocol: Document 02/17/19 17:23 LCHENG (Rec: 02/17/19 17:28 [email or web address] [email or web address]) Nutritional Asmnt/Malnutrition Patient General Information Nutritional Screening High Risk Consult Diagnosis osteomyelitis, central line placement Pertinent Medical Hx/Surgical Hx HTN, asthma/COPD, PUD/GERd, osteomylitis, anemia, PEG/ Gtube, schizophrenia, bipolar Subjective Information Consult received for ricky 12 and open wound. Pt seen resting in bed at time of visit. TF off at this time. Current Diet Order/ Nutrition Support Glucerna 1.2 at 60ml/hr x 20hr Pertinent Medications vit C, colace, heperin, humalog, culturelle, mag-oxide , vancomycin Pertinent Labs 02/17 K 3.4, Cr 0.5, glucose 94 Nutritional Hx/Data Height 1.65 m Height (Calculated Centimeters) 165.1 Current Weight (lbs) 36.741 kg Weight (Calculated Kilograms) 36.7 Weight (Calculated Grams) 02586.0 [place] Body Weight 125 Body Mass Index (BMI) 13.4 Weight Status Underweight GI Symptoms GI Symptoms None Last BM none Difficult in: None Skin Integrity/Comment: left foot and bilat arms bruises pressure area Complex - Includes bone to sacrum, skin tear to right foot ricky Canela Estimated Nutritional Goals Calories/Kcals/Kg 25-30 Kcals Calculated 0517-7028 Protein g/k.2-1.4 Protein Calculated 68-80 Fluid: ml 1425-1710ml (1ml/kcal) Nutritional Problem 1. Problem Problem increased nutrition needs Etiology impaired skin integrity Signs/Symptoms: open wound to sacrum Intervention/Recommendation Comments 1. Continue with current TF regimen with Glucerna 1.2 at 60ml/hr x 20hr. It provides 1440kcal, 72g protein, 966ml free water, meeting 100% of nutritional needs. Add Sadi BID for wound healing. 2. Monitor TF rate, tolerance, wt, skin integrity and labs 3. F/U as high risk in 2-3 days Expected Outcomes/Goals Expected Outcomes/Goals 1. Pt to meet at least 90% of nutritional needs via nutrition support with tolerance 2. Wt stability, skin to remain intact, labs to approach WNL.
--- NOTE | 2019-03-25 19:25 | Internal Medicine Prog Note ---
Internal Medicine Subjective - Subjective Service Date: 03/25/19 Patient is:: awake, in bed, confused Patient Complaints of:: other (Hx of copd.) Per staff patient has:: no adverse event, no episodes of fall, confused Internal Medicine Objective - Results Result Diagrams: 03/06/19 06:10 03/06/19 06:10 Recent Labs: Laboratory Last Values WBC 5.9 Th/cmm (4.8-10.8) 03/06/19 06:10 RBC 3.88 Mil/cmm (3.80-5.10) 03/06/19 06:10 Hgb 12.5 gm/dL (12-16) 03/06/19 06:10 Hct 37.2 % (41.0-60) L 03/06/19 06:10 MCV 95.7 fl (81-100) 03/06/19 06:10 MCH 32.1 pg (27.0-31.0) H 03/06/19 06:10 MCHC Differential 33.5 pg (28.0-36.0) 03/06/19 06:10 RDW 13.1 % (11.5-20.0) 03/06/19 06:10 Plt Count 266 Th/cmm (150-400) 03/06/19 06:10 MPV 7.5 fl 03/06/19 06:10 Neutrophils % 72.3 % (40.0-80.0) 03/06/19 06:10 Lymphocytes % 16.1 % (20.0-50.0) L 03/06/19 06:10 Monocytes % 8.6 % (2.0-10.0) 03/06/19 06:10 Eosinophils % 2.4 % (0.0-5.0) 03/06/19 06:10 Basophils % 0.6 % (0.0-2.0) 03/06/19 06:10 PT 11.6 SECONDS (9.5-11.5) H 02/15/19 23:40 INR 1.13 (0.5-1.4) 02/15/19 23:40 PTT (Actin FS) 44.0 SECONDS (26.0-38.0) H 02/15/19 23:40 Sodium 143 mEq/L (136-145) 03/06/19 06:10 Potassium 3.5 mEq/L (3.5-5.1) 03/06/19 06:10 Chloride 103 mEq/L (98-107) 03/06/19 06:10 Carbon Dioxide 31.4 mEq/L (21.0-31.0) H 03/06/19 06:10 Anion Gap 12.1 (7.0-16.0) 03/06/19 06:10 BUN 29 mg/dL (7-25) H 03/06/19 06:10 Creatinine 0.5 mg/dL (0.6-1.2) L 03/06/19 06:10 Est GFR ( Amer) > 60.0 ml/min (>90) 03/06/19 06:10 Est GFR (Non-Af Amer) > 60.0 ml/min 03/06/19 06:10 BUN/Creatinine Ratio 58.0 03/06/19 06:10 Glucose 101 mg/dL (70-105) 03/06/19 06:10 POC Glucose 92 MG/DL (70 - 105) 03/25/19 06:40 Whole Bld Lactic Acid 0.56 mmol/L (0.60-1.99) L 02/16/19 00:00 Calcium 9.6 mg/dL (8.6-10.3) 03/06/19 06:10 Total Bilirubin 0.5 mg/dL (0.3-1.0) 03/06/19 06:10 AST 28 U/L (13-39) 03/06/19 06:10 ALT 40 U/L (7-52) 03/06/19 06:10 Alkaline Phosphatase 110 U/L (34-104) H 03/06/19 06:10 Troponin I 0.01 ng/mL (0.01-0.05) 02/15/19 23:40 Total Protein 6.9 gm/dL (6.0-8.3) 03/06/19 06:10 Albumin 3.5 gm/dL (3.7-5.3) L 03/06/19 06:10 Globulin 3.4 gm/dL 03/06/19 06:10 Albumin/Globulin Ratio 1.0 (1.0-1.8) 03/06/19 06:10 TSH 4.06 uIU/ml (0.34-5.60) 02/15/19 23:40 Vancomycin Trough 17.7 ug/mL (5-10) H 03/02/19 10:00 Random Vancomycin 4.7 ug/mL (5.0-40.0) L 02/16/19 21:15 - Physical Exam Vitals and I&O: Vital Signs Temp 74 F 03/25/19 16:37 Pulse 88 03/25/19 19:19 Resp 20 03/25/19 19:19 BP 110/80 03/25/19 17:13 Pulse Ox 98 03/25/19 19:19 Intake & Output 03/25/19 03/25/19 03/26/19 06:59 18:59 06:59 Intake Total 540 485 Balance 540 485 Weight (lbs) 98 lb 11.2 oz 98 lb 11.2 oz Intake: Tube Feeding 290 285 Other 250 200 Other: # Voids 2 3 # Bowel Movements 0 Stool Characteristics Soft Soft Brown Brown Weight Source Bedscale Bedscale Active Medications: Current Medications Acetaminophen (Tylenol) 650 mg GT Q6H PRN PRN Reason: mild pain Stop: 04/17/19 18:42 Last Admin: 03/03/19 21:19 Dose: 650 mg Al Hydrox/Mg Hydrox/Simethicone (Maalox) 30 ml GT Q6HR PRN PRN Reason: GI DISTRESS Stop: 04/17/19 18:42 Albuterol Sulfate (Albuterol 2.5mg/3ml Neb Ud) 2.5 mg HHN Q2HR PRN PRN Reason: Shortness of Breath Stop: 04/17/19 18:42 Albuterol Sulfate (Albuterol 2.5mg/3ml Neb Ud) 2.5 mg HHN [id number] [facility] Stop: 04/17/19 18:59 Last Admin: 03/25/19 19:03 Dose: 2.5 mg Ascorbic Acid (Vitamin C) 500 mg GT Q12HR MADHURI Stop: 04/17/19 20:59 Last Admin: 03/25/19 08:38 Dose: 500 mg Bisacodyl (Dulcolax 10 Mg Supp) 10 mg RC DAILY PRN PRN Reason: Constipation Stop: 04/17/19 20:14 Budesonide (Pulmicort) 0.5 mg HHN BIDRT [facility] Stop: 04/18/19 06:59 Last Admin: 03/25/19 19:03 Dose: 0.5 mg Carvedilol (Coreg) 6.25 mg GT Q12H MADHURI Stop: 04/17/19 21:59 Last Admin: 03/25/19 14:56 Dose: Not Given [place] Oil/[place] Balsam/Trypsin (Venelex) 1 appl TP DAILY MADHURI Stop: 04/18/19 08:59 Last Admin: 03/25/19 08:42 Dose: 1 appl Docusate Sodium (Colace) 200 mg GT Q12H PRN PRN Reason: Constipation Stop: 04/17/19 20:14 Last Admin: 03/11/19 10:21 Dose: 200 mg Enalapril Maleate (Vasotec) 2.5 mg PO BID MADHURI Stop: 04/26/19 12:24 Last Admin: 03/25/19 17:13 Dose: Not Given Glucagon (Glucagen) 1 mg IM PRN PRN PRN Reason: Blood Glucose less than 70 Stop: 04/17/19 20:14 Last Admin: 02/28/19 21:12 Dose: 1 mg Lactobacillus Rhamnosus (Culturelle 15b) 1 each GT DAILY MADHURI Stop: 04/18/19 08:59 Last Admin: 03/25/19 08:34 Dose: 1 each Lorazepam (Ativan) 0.5 mg PO Q4HR PRN; Protocol PRN Reason: Agitation Stop: 05/04/19 12:08 Last Admin: 03/24/19 20:18 Dose: 0.5 mg Magnesium Hydroxide (Milk Of Magnesia) 30 ml GT HS PRN PRN Reason: Constipation Stop: 04/17/19 18:42 Magnesium Oxide (Mag-Oxide) 400 mg GT BID MADHURI Stop: 04/18/19 08:59 Last Admin: 03/25/19 17:25 Dose: Not Given Mirtazapine (Remeron) 15 mg PO HS MADHURI; Protocol Stop: 05/22/19 20:59 Last Admin: 03/24/19 20:17 Dose: 15 mg Ondansetron HCl (Zofran) 4 mg IV Q6H PRN PRN Reason: Nausea / Vomiting Stop: 04/28/19 06:20 Quetiapine Fumarate (Seroquel) 25 mg PO TID MADHURI; Protocol Stop: 05/22/19 08:59 Last Admin: 03/25/19 15:03 Dose: 25 mg Sodium Phosphate (Fleet Enema) 135 ml RC Q48HR PRN PRN Reason: Constipation Stop: 04/17/19 20:14 General: weak, demented HEENT: NC/AT, PERRLA Neck: Supple, No JVD Lungs: other (No acute respiratory distress. On RA) Cardiovascular: RRR Abdomen: soft, non-tender Extremities: edema Neurological: no change, unable to follow command, other - Procedures Procedures: Procedures Procedure Code Date INSERTION OF FEEDING DEVICE INTO STOMACH, PERC APPROACH [id number] 01/02/19 INSERTION OF INFUSION DEVICE INTO R LOW ARM, PERC APPROACH [id number] 01/02/19 INTRODUCTION OF NUTRITIONAL INTO PERIPH VEIN, PERC APPROACH [id number] 01/02/19 RESPIRATORY VENTILATION, LESS THAN 24 CONSECUTIVE HOURS [id number] 04/07/18 Internal Medicine Assmt/Plan - Assessment Assessment: OSTEOMYELITIS OF LUMBAR SPINE MRSA SEPSIS DYSPHAGIA DEMENTIA MODERATE PROTEIN CALORIE MALNUTRITION COPD S/P DECCANULATION - Plan Plan: placement issues continue current plan of care Nutritional Asmnt/Malnutr-PDOC - Dietary Evaluation Malnutrition Findings (Please click <Entered> for more info): Nutritional Asmnt/Malnutrition Start: 02/17/19 17: 23 Text: Status: Complete Freq: Protocol: Document 02/17/19 17:23 LCHENG (Rec: 02/17/19 17:28 LCHENG [email or web address]) Nutritional Asmnt/Malnutrition Patient General Information Nutritional Screening High Risk Consult Diagnosis osteomyelitis, central line placement Pertinent Medical Hx/Surgical Hx HTN, asthma/COPD, PUD/GERd, osteomylitis, anemia, PEG/ Gtube, schizophrenia, bipolar Subjective Information Consult received for ricky 12 and open wound. Pt seen resting in bed at time of visit. TF off at this time. Current Diet Order/ Nutrition Support Glucerna 1.2 at 60ml/hr x 20hr Pertinent Medications vit C, colace, heperin, humalog, culturelle, mag-oxide , vancomycin Pertinent Labs 02/17 K 3.4, Cr 0.5, glucose 94 Nutritional Hx/Data Height 5 ft 5 in Height (Calculated Centimeters) 165.1 Current Weight (lbs) 81 lb Weight (Calculated Kilograms) 36.7 Weight (Calculated Grams) 21516.0 [place] Body Weight 125 Body Mass Index (BMI) 13.4 Weight Status Underweight GI Symptoms GI Symptoms None Last BM none Difficult in: None Skin Integrity/Comment: left foot and bilat arms bruises pressure area Complex - Includes bone to sacrum, skin tear to right foot ricky 12 Estimated Nutritional Goals Calories/Kcals/Kg 25-30 Kcals Calculated 9231-5139 Protein g/k.2-1.4 Protein Calculated 68-80 Fluid: ml 1425-1710ml (1ml/kcal) Nutritional Problem 1. Problem Problem increased nutrition needs Etiology impaired skin integrity Signs/Symptoms: open wound to sacrum Intervention/Recommendation Comments 1. Continue with current TF regimen with Glucerna 1.2 at 60ml/hr x 20hr. It provides 1440kcal, 72g protein, 966ml free water, meeting 100% of nutritional needs. Add Sadi BID for wound healing. 2. Monitor TF rate, tolerance, wt, skin integrity and labs 3. F/U as high risk in 2-3 days Expected Outcomes/Goals Expected Outcomes/Goals 1. Pt to meet at least 90% of nutritional needs via nutrition support with tolerance 2. Wt stability, skin to remain intact, labs to approach WNL.
--- NOTE | 2019-03-26 01:48 | Progress Notes ---
DATE: 03/25/2019 FOLLOWUP PROGRESS NOTE Case was discussed with staff of the patient, reviewed records. The patient continues to be unpredictable, impulsive, needing redirection. She continues to have poor insight. She is trying to pull her tubes again, though she had a good week last week according to the staff. She is compliant with the medication, no side effects, no sedation, no nausea. We will continue to work with the patient in group therapy, milieu therapy and adjust the medication as needed. JOB# [id number]
[2019-03-26] MEDS: Budesonide 0.5 Mg/2 mL Ud HHN SCH ×2 (07:01→19:19)
[2019-03-26] MEDS: Albuterol Nebulizer 2.5mg/3mL HHN SCH ×4 (07:02→19:19)
[2019-03-26 07:05] LABS: % BASOPHILS 0.8 % (0.0-2.0); % EOSINOPHILS 2.5 % (0.0-5.0); % LYMPHOCYTES 15.7 % (20.0-50.0); % MONOCYTES 6.3 % (2.0-10.0); % NEUTROPHILS 74.7 % (40.0-80.0); EOSINOPHILE ABSOLUTE 0.1 Th/cmm (0.1-0.4); HEMATOCRIT 38.3 % (41.0-60); HEMOGLOBIN 13.1 gm/dL (12-16); LYMPHOCYTE ABSOLUTE 0.9 Th/cmm (1.5-3.0); MEAN CELL VOLUME 94.3 fl (81-100); MEAN CORPUSCULAR HEMOGLOBIN 32.3 pg (27.0-31.0); MEAN CORPUSCULAR HGB CONC 34.3 pg (28.0-36.0); MONOCYTE ABSOLUTE 0.4 Th/cmm (0.3-1.0); NEUTROPHILE ABSOLUTE 4.2 Th/cmm (1.8-8.0); PLATELET COUNT 205 Th/cmm (150-400); RED BLOOD COUNT 4.06 Mil/cmm (3.80-5.10); RED CELL DISTRIBUTION WIDTH 12.1 % (11.5-20.0); WHITE BLOOD COUNT 5.6 Th/cmm (4.8-10.8)
[2019-03-26 07:21] LABS: INR 1.09 (0.5-1.4); PROTHROMBIN TIME (TEST) 11.3 SECONDS (9.5-11.5)
[2019-03-26 07:23] LABS: ANION GAP 11.4 (7.0-16.0); BUN - UREA NITROGEN 21 mg/dL (7-25); CALCIUM SERUM 9.8 mg/dL (8.6-10.3); CARBON DIOXIDE 29.1 mEq/L (21.0-31.0); CHLORIDE 102 mEq/L (98-107); CREATININE - SERUM 0.6 mg/dL (0.6-1.2); GFR AFRICAN-AMERICAN > 60.0 ml/min (>90); GFR NON AFRICAN-AMERICAN > 60.0 ml/min; GLUCOSE 85 mg/dL (70-105); POTASSIUM SERUM 3.5 mEq/L (3.5-5.1); SODIUM SERUM 139 mEq/L (136-145)
[2019-03-26] MEDS: Multivitamin w/ Minerals Tab GT SCH (08:41)
[2019-03-26] MEDS: Lactobacillus Rhamnosus GG 15 Billion CFU CAP.SPRINK GT SCH (08:41)
[2019-03-26] MEDS: Venelex 60gm Tube TP SCH (08:42)
--- NOTE | 2019-03-26 12:55 | Internal Medicine Prog Note ---
Internal Medicine Subjective - Subjective Service Date: 03/26/19 Patient seen and examined:: with staff Patient is:: awake, in bed, talking, confused Patient Complaints of:: other (Hx of copd.) Per staff patient has:: no adverse event, no episodes of fall, confused Internal Medicine Objective - Results Result Diagrams: 03/26/19 07:00 03/26/19 07:00 Recent Labs: Laboratory Last Values WBC 5.6 Th/cmm (4.8-10.8) 03/26/19 07:00 RBC 4.06 Mil/cmm (3.80-5.10) 03/26/19 07:00 Hgb 13.1 gm/dL (12-16) 03/26/19 07:00 Hct 38.3 % (41.0-60) L 03/26/19 07:00 MCV 94.3 fl (81-100) 03/26/19 07:00 MCH 32.3 pg (27.0-31.0) H 03/26/19 07:00 MCHC Differential 34.3 pg (28.0-36.0) 03/26/19 07:00 RDW 12.1 % (11.5-20.0) 03/26/19 07:00 Plt Count 205 Th/cmm (150-400) 03/26/19 07:00 MPV 8.0 fl 03/26/19 07:00 Neutrophils % 74.7 % (40.0-80.0) 03/26/19 07:00 Lymphocytes % 15.7 % (20.0-50.0) L 03/26/19 07:00 Monocytes % 6.3 % (2.0-10.0) 03/26/19 07:00 Eosinophils % 2.5 % (0.0-5.0) 03/26/19 07:00 Basophils % 0.8 % (0.0-2.0) 03/26/19 07:00 PT 11.3 SECONDS (9.5-11.5) 03/26/19 07:00 INR 1.09 (0.5-1.4) 03/26/19 07:00 PTT (Actin FS) 44.0 SECONDS (26.0-38.0) H 02/15/19 23:40 Sodium 139 mEq/L (136-145) 03/26/19 07:00 Potassium 3.5 mEq/L (3.5-5.1) 03/26/19 07:00 Chloride 102 mEq/L (98-107) 03/26/19 07:00 Carbon Dioxide 29.1 mEq/L (21.0-31.0) 03/26/19 07:00 Anion Gap 11.4 (7.0-16.0) 03/26/19 07:00 BUN 21 mg/dL (7-25) 03/26/19 07:00 Creatinine 0.6 mg/dL (0.6-1.2) 03/26/19 07:00 Est GFR ( Amer) > 60.0 ml/min (>90) 03/26/19 07:00 Est GFR (Non-Af Amer) > 60.0 ml/min 03/26/19 07:00 BUN/Creatinine Ratio 35.0 03/26/19 07:00 Glucose 85 mg/dL (70-105) 03/26/19 07:00 POC Glucose 92 MG/DL (70 - 105) 03/25/19 06:40 Whole Bld Lactic Acid 0.56 mmol/L (0.60-1.99) L 02/16/19 00:00 Calcium 9.8 mg/dL (8.6-10.3) 03/26/19 07:00 Total Bilirubin 0.5 mg/dL (0.3-1.0) 03/06/19 06:10 AST 28 U/L (13-39) 03/06/19 06:10 ALT 40 U/L (7-52) 03/06/19 06:10 Alkaline Phosphatase 110 U/L (34-104) H 03/06/19 06:10 Troponin I 0.01 ng/mL (0.01-0.05) 02/15/19 23:40 Total Protein 6.9 gm/dL (6.0-8.3) 03/06/19 06:10 Albumin 3.5 gm/dL (3.7-5.3) L 03/06/19 06:10 Globulin 3.4 gm/dL 03/06/19 06:10 Albumin/Globulin Ratio 1.0 (1.0-1.8) 03/06/19 06:10 TSH 4.06 uIU/ml (0.34-5.60) 02/15/19 23:40 Vancomycin Trough 17.7 ug/mL (5-10) H 03/02/19 10:00 Random Vancomycin 4.7 ug/mL (5.0-40.0) L 02/16/19 21:15 - Physical Exam Vitals and I&O: Vital Signs Temp 96.3 F 03/26/19 12:00 Pulse 65 03/26/19 12:00 Resp 18 03/26/19 12:00 BP 141/79 03/26/19 12:00 Pulse Ox 100 03/26/19 12:00 Intake & Output 03/25/19 03/26/19 03/26/19 18:59 06:59 18:59 Intake Total 485 774 Balance 485 774 Weight (lbs) 44.77 kg 44.792 kg Intake: Tube Feeding 285 774 Other 200 Other: # Voids 3 1 # Bowel Movements 0 1 Stool Characteristics Soft Soft Soft Brown Brown Brown Weight Source Bedscale Bedscale Active Medications: Current Medications Acetaminophen (Tylenol) 650 mg GT Q6H PRN PRN Reason: mild pain Stop: 04/17/19 18:42 Last Admin: 03/03/19 21:19 Dose: 650 mg Al Hydrox/Mg Hydrox/Simethicone (Maalox) 30 ml GT Q6HR PRN PRN Reason: GI DISTRESS Stop: 04/17/19 18:42 Albuterol Sulfate (Albuterol 2.5mg/3ml Neb Ud) 2.5 mg HHN Q2HR PRN PRN Reason: Shortness of Breath Stop: 04/17/19 18:42 Albuterol Sulfate (Albuterol 2.5mg/3ml Neb Ud) 2.5 mg HHN [id number] [facility] Stop: 04/17/19 18:59 Last Admin: 03/26/19 11:07 Dose: 2.5 mg Ascorbic Acid (Vitamin C) 500 mg GT Q12HR [facility] Stop: 04/17/19 20:59 Last Admin: 03/26/19 08:41 Dose: 500 mg Bisacodyl (Dulcolax 10 Mg Supp) 10 mg RC DAILY PRN PRN Reason: Constipation Stop: 04/17/19 20:14 Budesonide (Pulmicort) 0.5 mg HHN BIDRT [facility] Stop: 04/18/19 06:59 Last Admin: 03/26/19 07:01 Dose: 0.5 mg Carvedilol (Coreg) 6.25 mg GT Q12H [facility] Stop: 04/17/19 21:59 Last Admin: 03/26/19 09:44 Dose: 6.25 mg [place] Oil/[place]raqi Balsam/Trypsin (Venelex) 1 appl TP DAILY [facility] Stop: 04/18/19 08:59 Last Admin: 03/26/19 08:42 Dose: 1 appl Docusate Sodium (Colace) 200 mg GT Q12H PRN PRN Reason: Constipation Stop: 04/17/19 20:14 Last Admin: 03/11/19 10:21 Dose: 200 mg Enalapril Maleate (Vasotec) 2.5 mg PO BID [facility] Stop: 04/26/19 12:24 Last Admin: 03/26/19 08:41 Dose: 2.5 mg Glucagon (Glucagen) 1 mg IM PRN PRN PRN Reason: Blood Glucose less than 70 Stop: 04/17/19 20:14 Last Admin: 02/28/19 21:12 Dose: 1 mg Lactobacillus Rhamnosus (Culturelle 15b) 1 each GT DAILY [facility] Stop: 04/18/19 08:59 Last Admin: 03/26/19 08:41 Dose: 1 each Lorazepam (Ativan) 0.5 mg PO Q4HR PRN; Protocol PRN Reason: Agitation Stop: 05/04/19 12:08 Last Admin: 03/26/19 10:43 Dose: 0.5 mg Magnesium Hydroxide (Milk Of Magnesia) 30 ml GT HS PRN PRN Reason: Constipation Stop: 04/17/19 18:42 Magnesium Oxide (Mag-Oxide) 400 mg GT BID [facility] Stop: 04/18/19 08:59 Last Admin: 03/26/19 08:41 Dose: 400 mg Mirtazapine (Remeron) 15 mg PO HS [facility]; Protocol Stop: 05/22/19 20:59 Last Admin: 03/25/19 20:57 Dose: 15 mg Ondansetron HCl (Zofran) 4 mg IV Q6H PRN PRN Reason: Nausea / Vomiting Stop: 04/28/19 06:20 Quetiapine Fumarate (Seroquel) 25 mg PO TID [facility]; Protocol Stop: 05/22/19 08:59 Last Admin: 03/26/19 08:41 Dose: 25 mg Sodium Phosphate (Fleet Enema) 135 ml RC Q48HR PRN PRN Reason: Constipation Stop: 04/17/19 20:14 Physical Exam: 58 y/o female patient has mild edema of the left upper extremity, Dvt of upper extremity which patient is getting treatment for and has been improving. General: weak, demented HEENT: NC/AT, PERRLA Neck: Supple, No JVD Lungs: other (No acute respiratory distress. On RA) Cardiovascular: RRR Abdomen: soft, non-tender Extremities: edema Neurological: no change, unable to follow command, other - Procedures Procedures: Procedures Procedure Code Date INSERTION OF FEEDING DEVICE INTO STOMACH, PERC APPROACH [id number] 01/02/19 INSERTION OF INFUSION DEVICE INTO R LOW ARM, PERC APPROACH [id number] 01/02/19 INTRODUCTION OF NUTRITIONAL INTO PERIPH VEIN, PERC APPROACH [id number] 01/02/19 RESPIRATORY VENTILATION, LESS THAN 24 CONSECUTIVE HOURS [id number] 04/07/18 Internal Medicine Assmt/Plan - Assessment Assessment: G-tube status Edema of Left upper extremity Hypertension. MRSA sepsis, treated Diskitis. Osteomyelitis of lumbar spine Anemia. Protein Malnutrition. S/p Deccanulation. S/p Percutaneous Endoscopic gastrostomy. Less agitated Dementia Psychosis Chronic Copd Protein-calorie malnutrition Failure to thrive DVT of upper extremity - Plan Plan: Continuation of care Continue present meds as directed Monitor Pain Continue to follow up with Psych Monitor Vitals, Labs and Pain management Fall precaution Continue present care management Nutritional Asmnt/Malnutr-PDOC - Dietary Evaluation Malnutrition Findings (Please click <Entered> for more info): Nutritional Asmnt/Malnutrition Start: 02/17/19 17: 23 Text: Status: Complete Freq: Protocol: Document 02/17/19 17:23 LCHENG (Rec: 02/17/19 17:28 [email or web address] [email or web address]) Nutritional Asmnt/Malnutrition Patient General Information Nutritional Screening High Risk Consult Diagnosis osteomyelitis, central line placement Pertinent Medical Hx/Surgical Hx HTN, asthma/COPD, PUD/GERd, osteomylitis, anemia, PEG/ Gtube, schizophrenia, bipolar Subjective Information Consult received for ricky 12 and open wound. Pt seen resting in bed at time of visit. TF off at this time. Current Diet Order/ Nutrition Support Glucerna 1.2 at 60ml/hr x 20hr Pertinent Medications vit C, colace, heperin, humalog, culturelle, mag-oxide , vancomycin Pertinent Labs 02/17 K 3.4, Cr 0.5, glucose 94 Nutritional Hx/Data Height 1.65 m Height (Calculated Centimeters) 165.1 Current Weight (lbs) 36.741 kg Weight (Calculated Kilograms) 36.7 Weight (Calculated Grams) 62071.0 [place] Body Weight 125 Body Mass Index (BMI) 13.4 Weight Status Underweight GI Symptoms GI Symptoms None Last BM none Difficult in: None Skin Integrity/Comment: left foot and bilat arms bruises pressure area Complex - Includes bone to sacrum, skin tear to right foot ricky 12 Estimated Nutritional Goals Calories/Kcals/Kg 25-30 Kcals Calculated 4638-2517 Protein g/k.2-1.4 Protein Calculated 68-80 Fluid: ml 1425-1710ml (1ml/kcal) Nutritional Problem 1. Problem Problem increased nutrition needs Etiology impaired skin integrity Signs/Symptoms: open wound to sacrum Intervention/Recommendation Comments 1. Continue with current TF regimen with Glucerna 1.2 at 60ml/hr x 20hr. It provides 1440kcal, 72g protein, 966ml free water, meeting 100% of nutritional needs. Add Sadi BID for wound healing. 2. Monitor TF rate, tolerance, wt, skin integrity and labs 3. F/U as high risk in 2-3 days Expected Outcomes/Goals Expected Outcomes/Goals 1. Pt to meet at least 90% of nutritional needs via nutrition support with tolerance 2. Wt stability, skin to remain intact, labs to approach WNL.
--- NOTE | 2019-03-26 14:38 | General Progress Note ---
Subjective - Review of Systems Service Date: 03/26/19 Subjective: Patient exam aimed discussed with the nurse chart reviewed patient's clinically unchanged Patient has swelling of the left upper extremity patient's IV site infiltrated in the same arm DVT Objective - Results Result Diagrams: 03/26/19 07:00 03/26/19 07:00 Recent Labs: Laboratory Last Values WBC 5.6 Th/cmm (4.8-10.8) 03/26/19 07:00 RBC 4.06 Mil/cmm (3.80-5.10) 03/26/19 07:00 Hgb 13.1 gm/dL (12-16) 03/26/19 07:00 Hct 38.3 % (41.0-60) L 03/26/19 07:00 MCV 94.3 fl (81-100) 03/26/19 07:00 MCH 32.3 pg (27.0-31.0) H 03/26/19 07:00 MCHC Differential 34.3 pg (28.0-36.0) 03/26/19 07:00 RDW 12.1 % (11.5-20.0) 03/26/19 07:00 Plt Count 205 Th/cmm (150-400) 03/26/19 07:00 MPV 8.0 fl 03/26/19 07:00 Neutrophils % 74.7 % (40.0-80.0) 03/26/19 07:00 Lymphocytes % 15.7 % (20.0-50.0) L 03/26/19 07:00 Monocytes % 6.3 % (2.0-10.0) 03/26/19 07:00 Eosinophils % 2.5 % (0.0-5.0) 03/26/19 07:00 Basophils % 0.8 % (0.0-2.0) 03/26/19 07:00 PT 11.3 SECONDS (9.5-11.5) 03/26/19 07:00 INR 1.09 (0.5-1.4) 03/26/19 07:00 PTT (Actin FS) 44.0 SECONDS (26.0-38.0) H 02/15/19 23:40 Sodium 139 mEq/L (136-145) 03/26/19 07:00 Potassium 3.5 mEq/L (3.5-5.1) 03/26/19 07:00 Chloride 102 mEq/L (98-107) 03/26/19 07:00 Carbon Dioxide 29.1 mEq/L (21.0-31.0) 03/26/19 07:00 Anion Gap 11.4 (7.0-16.0) 03/26/19 07:00 BUN 21 mg/dL (7-25) 03/26/19 07:00 Creatinine 0.6 mg/dL (0.6-1.2) 03/26/19 07:00 Est GFR ( Amer) > 60.0 ml/min (>90) 03/26/19 07:00 Est GFR (Non-Af Amer) > 60.0 ml/min 03/26/19 07:00 BUN/Creatinine Ratio 35.0 03/26/19 07:00 Glucose 85 mg/dL (70-105) 03/26/19 07:00 POC Glucose 92 MG/DL (70 - 105) 03/25/19 06:40 Whole Bld Lactic Acid 0.56 mmol/L (0.60-1.99) L 02/16/19 00:00 Calcium 9.8 mg/dL (8.6-10.3) 03/26/19 07:00 Total Bilirubin 0.5 mg/dL (0.3-1.0) 03/06/19 06:10 AST 28 U/L (13-39) 03/06/19 06:10 ALT 40 U/L (7-52) 03/06/19 06:10 Alkaline Phosphatase 110 U/L (34-104) H 03/06/19 06:10 Troponin I 0.01 ng/mL (0.01-0.05) 02/15/19 23:40 Total Protein 6.9 gm/dL (6.0-8.3) 03/06/19 06:10 Albumin 3.5 gm/dL (3.7-5.3) L 03/06/19 06:10 Globulin 3.4 gm/dL 03/06/19 06:10 Albumin/Globulin Ratio 1.0 (1.0-1.8) 03/06/19 06:10 TSH 4.06 uIU/ml (0.34-5.60) 02/15/19 23:40 Vancomycin Trough 17.7 ug/mL (5-10) H 03/02/19 10:00 Random Vancomycin 4.7 ug/mL (5.0-40.0) L 02/16/19 21:15 - Physical Exam Vitals and I&O: Vital Signs Temp 96.3 F 03/26/19 12:00 Pulse 85 03/26/19 14:17 Resp 20 03/26/19 14:17 BP 141/79 03/26/19 12:00 Pulse Ox 99 03/26/19 14:17 Intake & Output 03/25/19 03/26/19 03/26/19 18:59 06:59 18:59 Intake Total 485 774 Balance 485 774 Weight (lbs) 44.77 kg 44.792 kg Intake: Tube Feeding 285 774 Other 200 Other: # Voids 3 1 # Bowel Movements 0 1 Stool Characteristics Soft Soft Soft Brown Brown Brown Weight Source Bedscale Bedscale Active Medications: Current Medications Acetaminophen (Tylenol) 650 mg GT Q6H PRN PRN Reason: mild pain Stop: 04/17/19 18:42 Last Admin: 03/03/19 21:19 Dose: 650 mg Al Hydrox/Mg Hydrox/Simethicone (Maalox) 30 ml GT Q6HR PRN PRN Reason: GI DISTRESS Stop: 04/17/19 18:42 Albuterol Sulfate (Albuterol 2.5mg/3ml Neb Ud) 2.5 mg HHN Q2HR PRN PRN Reason: Shortness of Breath Stop: 04/17/19 18:42 Albuterol Sulfate (Albuterol 2.5mg/3ml Neb Ud) 2.5 mg HHN [id number] [facility] Stop: 04/17/19 18:59 Last Admin: 03/26/19 14:17 Dose: 2.5 mg Ascorbic Acid (Vitamin C) 500 mg GT Q12HR [facility] Stop: 04/17/19 20:59 Last Admin: 03/26/19 08:41 Dose: 500 mg Bisacodyl (Dulcolax 10 Mg Supp) 10 mg RC DAILY PRN PRN Reason: Constipation Stop: 04/17/19 20:14 Budesonide (Pulmicort) 0.5 mg HHN BIDRT [facility] Stop: 04/18/19 06:59 Last Admin: 03/26/19 07:01 Dose: 0.5 mg Carvedilol (Coreg) 6.25 mg GT Q12H [facility] Stop: 04/17/19 21:59 Last Admin: 03/26/19 09:44 Dose: 6.25 mg [place] Oil/[place]ian Balsam/Trypsin (Venelex) 1 appl TP DAILY [facility] Stop: 04/18/19 08:59 Last Admin: 03/26/19 08:42 Dose: 1 appl Docusate Sodium (Colace) 200 mg GT Q12H PRN PRN Reason: Constipation Stop: 04/17/19 20:14 Last Admin: 03/11/19 10:21 Dose: 200 mg Enalapril Maleate (Vasotec) 2.5 mg PO BID [facility] Stop: 04/26/19 12:24 Last Admin: 03/26/19 08:41 Dose: 2.5 mg Glucagon (Glucagen) 1 mg IM PRN PRN PRN Reason: Blood Glucose less than 70 Stop: 04/17/19 20:14 Last Admin: 02/28/19 21:12 Dose: 1 mg Lactobacillus Rhamnosus (Culturelle 15b) 1 each GT DAILY [facility] Stop: 04/18/19 08:59 Last Admin: 03/26/19 08:41 Dose: 1 each Lorazepam (Ativan) 0.5 mg PO Q4HR PRN; Protocol PRN Reason: Agitation Stop: 05/04/19 12:08 Last Admin: 03/26/19 10:43 Dose: 0.5 mg Magnesium Hydroxide (Milk Of Magnesia) 30 ml GT HS PRN PRN Reason: Constipation Stop: 04/17/19 18:42 Magnesium Oxide (Mag-Oxide) 400 mg GT BID [facility] Stop: 04/18/19 08:59 Last Admin: 03/26/19 08:41 Dose: 400 mg Mirtazapine (Remeron) 15 mg PO HS [facility]; Protocol Stop: 05/22/19 20:59 Last Admin: 03/25/19 20:57 Dose: 15 mg Ondansetron HCl (Zofran) 4 mg IV Q6H PRN PRN Reason: Nausea / Vomiting Stop: 04/28/19 06:20 Quetiapine Fumarate (Seroquel) 25 mg PO TID [facility]; Protocol Stop: 05/22/19 08:59 Last Admin: 03/26/19 13:30 Dose: 25 mg Sodium Phosphate (Fleet Enema) 135 ml RC Q48HR PRN PRN Reason: Constipation Stop: 04/17/19 20:14 General: No acute distress HEENT: Mucous membr. moist/pink Neck: Supple, JVD, +2 carotid pulse wo bruit (flat) Cardiovascular: Regular rate, Normal S1, Normal S2, Systolic murmurs Lungs: Clear to auscultation, Normal air movement Abdomen: Bowel sounds, Soft, Other (G-tube) - Procedures Procedures: Procedures Procedure Code Date INSERTION OF FEEDING DEVICE INTO STOMACH, PERC APPROACH [id number] 01/02/19 INSERTION OF INFUSION DEVICE INTO R LOW ARM, PERC APPROACH [id number] 01/02/19 INTRODUCTION OF NUTRITIONAL INTO PERIPH VEIN, PERC APPROACH [id number] 01/02/19 RESPIRATORY VENTILATION, LESS THAN 24 CONSECUTIVE HOURS [id number] 04/07/18 Assessment/Plan - Assessment Assessment: Uncontrolled hypertension MRSA sepsis Osteomyelitis of the lumbosacral spine Discitis lumbosacral spine Dementia Dysphagia with PEG placement Protein calorie malnutrition Psychosis COPD DVT upper extremity - Plan Plan: Continue antihypertensive treatment continue antibiotics Venous duplex study Discharge planning Nutritional Asmnt/Malnutr-PDOC - Dietary Evaluation Malnutrition Findings (Please click <Entered> for more info): Nutritional Asmnt/Malnutrition Start: 02/17/19 17: 23 Text: Status: Complete Freq: Protocol: Document 02/17/19 17:23 LCHENG (Rec: 02/17/19 17:28 LCHENG [email or web address]) Nutritional Asmnt/Malnutrition Patient General Information Nutritional Screening High Risk Consult Diagnosis osteomyelitis, central line placement Pertinent Medical Hx/Surgical Hx HTN, asthma/COPD, PUD/GERd, osteomylitis, anemia, PEG/ Gtube, schizophrenia, bipolar Subjective Information Consult received for ricky 12 and open wound. Pt seen resting in bed at time of visit. TF off at this time. Current Diet Order/ Nutrition Support Glucerna 1.2 at 60ml/hr x 20hr Pertinent Medications vit C, colace, heperin, humalog, culturelle, mag-oxide , vancomycin Pertinent Labs 02/17 K 3.4, Cr 0.5, glucose 94 Nutritional Hx/Data Height 1.65 m Height (Calculated Centimeters) 165.1 Current Weight (lbs) 36.741 kg Weight (Calculated Kilograms) 36.7 Weight (Calculated Grams) 08014.0 [place] Body Weight 125 Body Mass Index (BMI) 13.4 Weight Status Underweight GI Symptoms GI Symptoms None Last BM none Difficult in: None Skin Integrity/Comment: left foot and bilat arms bruises pressure area Complex - Includes bone to sacrum, skin tear to right foot ricky [place]ela Estimated Nutritional Goals Calories/Kcals/Kg 25-30 Kcals Calculated 1295-0198 Protein g/k.2-1.4 Protein Calculated 68-80 Fluid: ml 1425-1710ml (1ml/kcal) Nutritional Problem 1. Problem Problem increased nutrition needs Etiology impaired skin integrity Signs/Symptoms: open wound to sacrum Intervention/Recommendation Comments 1. Continue with current TF regimen with Glucerna 1.2 at 60ml/hr x 20hr. It provides 1440kcal, 72g protein, 966ml free water, meeting 100% of nutritional needs. Add Sadi BID for wound healing. 2. Monitor TF rate, tolerance, wt, skin integrity and labs 3. F/U as high risk in 2-3 days Expected Outcomes/Goals Expected Outcomes/Goals 1. Pt to meet at least 90% of nutritional needs via nutrition support with tolerance 2. Wt stability, skin to remain intact, labs to approach WNL.
--- NOTE | 2019-03-27 00:20 | Progress Notes ---
DATE: 03/26/2019 Case was discussed with staff of the patient, reviewed records. The patient continues to be unpredictable and impulsive. She is staying in bed ____. She has a PEG tube or G-tube. She ____ pulling her tube. In general she is still in progress, no side effects of medication, no sedation or nausea. Thank you very much for allowing me to participate in the care of this most interesting lady. JOB# [id number]
[2019-03-27] MEDS: Budesonide 0.5 Mg/2 mL Ud HHN SCH ×2 (07:00→18:26)
[2019-03-27] MEDS: Albuterol Nebulizer 2.5mg/3mL HHN SCH ×4 (07:00→18:26)
[2019-03-27] MEDS: Multivitamin w/ Minerals Tab GT SCH (08:35)
[2019-03-27] MEDS: Lactobacillus Rhamnosus GG 15 Billion CFU CAP.SPRINK GT SCH (08:35)
[2019-03-27] MEDS: Venelex 60gm Tube TP SCH (08:36)
--- NOTE | 2019-03-27 12:07 | General Progress Note ---
Subjective - Review of Systems Service Date: 03/27/19 Subjective: Patient exam aimed discussed with the nurse chart reviewed patient's clinically unchanged Patient has swelling of the left upper extremity patient's IV site infiltrated in the same arm DVT Objective - Results Result Diagrams: 03/26/19 07:00 03/26/19 07:00 Recent Labs: Laboratory Last Values WBC 5.6 Th/cmm (4.8-10.8) 03/26/19 07:00 RBC 4.06 Mil/cmm (3.80-5.10) 03/26/19 07:00 Hgb 13.1 gm/dL (12-16) 03/26/19 07:00 Hct 38.3 % (41.0-60) L 03/26/19 07:00 MCV 94.3 fl (81-100) 03/26/19 07:00 MCH 32.3 pg (27.0-31.0) H 03/26/19 07:00 MCHC Differential 34.3 pg (28.0-36.0) 03/26/19 07:00 RDW 12.1 % (11.5-20.0) 03/26/19 07:00 Plt Count 205 Th/cmm (150-400) 03/26/19 07:00 MPV 8.0 fl 03/26/19 07:00 Neutrophils % 74.7 % (40.0-80.0) 03/26/19 07:00 Lymphocytes % 15.7 % (20.0-50.0) L 03/26/19 07:00 Monocytes % 6.3 % (2.0-10.0) 03/26/19 07:00 Eosinophils % 2.5 % (0.0-5.0) 03/26/19 07:00 Basophils % 0.8 % (0.0-2.0) 03/26/19 07:00 PT 11.3 SECONDS (9.5-11.5) 03/26/19 07:00 INR 1.09 (0.5-1.4) 03/26/19 07:00 PTT (Actin FS) 44.0 SECONDS (26.0-38.0) H 02/15/19 23:40 Sodium 139 mEq/L (136-145) 03/26/19 07:00 Potassium 3.5 mEq/L (3.5-5.1) 03/26/19 07:00 Chloride 102 mEq/L (98-107) 03/26/19 07:00 Carbon Dioxide 29.1 mEq/L (21.0-31.0) 03/26/19 07:00 Anion Gap 11.4 (7.0-16.0) 03/26/19 07:00 BUN 21 mg/dL (7-25) 03/26/19 07:00 Creatinine 0.6 mg/dL (0.6-1.2) 03/26/19 07:00 Est GFR ( Amer) > 60.0 ml/min (>90) 03/26/19 07:00 Est GFR (Non-Af Amer) > 60.0 ml/min 03/26/19 07:00 BUN/Creatinine Ratio 35.0 03/26/19 07:00 Glucose 85 mg/dL (70-105) 03/26/19 07:00 POC Glucose 92 MG/DL (70 - 105) 03/25/19 06:40 Whole Bld Lactic Acid 0.56 mmol/L (0.60-1.99) L 02/16/19 00:00 Calcium 9.8 mg/dL (8.6-10.3) 03/26/19 07:00 Total Bilirubin 0.5 mg/dL (0.3-1.0) 03/06/19 06:10 AST 28 U/L (13-39) 03/06/19 06:10 ALT 40 U/L (7-52) 03/06/19 06:10 Alkaline Phosphatase 110 U/L (34-104) H 03/06/19 06:10 Troponin I 0.01 ng/mL (0.01-0.05) 02/15/19 23:40 Total Protein 6.9 gm/dL (6.0-8.3) 03/06/19 06:10 Albumin 3.5 gm/dL (3.7-5.3) L 03/06/19 06:10 Globulin 3.4 gm/dL 03/06/19 06:10 Albumin/Globulin Ratio 1.0 (1.0-1.8) 03/06/19 06:10 TSH 4.06 uIU/ml (0.34-5.60) 02/15/19 23:40 Vancomycin Trough 17.7 ug/mL (5-10) H 03/02/19 10:00 Random Vancomycin 4.7 ug/mL (5.0-40.0) L 02/16/19 21:15 - Physical Exam Vitals and I&O: Vital Signs Temp 97 F 03/27/19 11:22 Pulse 64 03/27/19 11:22 Resp 20 03/27/19 11:22 BP 112/77 03/27/19 11:22 Pulse Ox 95 03/27/19 11:22 Intake & Output 03/26/19 03/27/19 03/27/19 18:59 06:59 18:59 Intake Total 1100 Balance 1100 Weight (lbs) 44.792 kg 44.792 kg Intake: Tube Feeding 800 Other 300 Other: # Voids 2 2 # Bowel Movements 0 Stool Characteristics Soft Soft Soft Brown Brown Brown Weight Source Bedscale Bedscale Active Medications: Current Medications Acetaminophen (Tylenol) 650 mg GT Q6H PRN PRN Reason: mild pain Stop: 04/17/19 18:42 Last Admin: 03/03/19 21:19 Dose: 650 mg Al Hydrox/Mg Hydrox/Simethicone (Maalox) 30 ml GT Q6HR PRN PRN Reason: GI DISTRESS Stop: 04/17/19 18:42 Albuterol Sulfate (Albuterol 2.5mg/3ml Neb Ud) 2.5 mg HHN Q2HR PRN PRN Reason: Shortness of Breath Stop: 04/17/19 18:42 Albuterol Sulfate (Albuterol 2.5mg/3ml Neb Ud) 2.5 mg HHN [id number] MADHURI Stop: 04/17/19 18:59 Last Admin: 03/27/19 11:06 Dose: 2.5 mg Ascorbic Acid (Vitamin C) 500 mg GT Q12HR MADHURI Stop: 04/17/19 20:59 Last Admin: 03/27/19 08:35 Dose: 500 mg Bisacodyl (Dulcolax 10 Mg Supp) 10 mg RC DAILY PRN PRN Reason: Constipation Stop: 04/17/19 20:14 Budesonide (Pulmicort) 0.5 mg HHN BIDRT MADHURI Stop: 04/18/19 06:59 Last Admin: 03/27/19 07:00 Dose: 0.5 mg Carvedilol (Coreg) 6.25 mg GT Q12H MADHURI Stop: 04/17/19 21:59 Last Admin: 03/27/19 09:00 Dose: 6.25 mg [place] Oil/[place] Balsam/Trypsin (Venelex) 1 appl TP DAILY MADUHRI Stop: 04/18/19 08:59 Last Admin: 03/27/19 08:36 Dose: 1 appl Docusate Sodium (Colace) 200 mg GT Q12H PRN PRN Reason: Constipation Stop: 04/17/19 20:14 Last Admin: 03/11/19 10:21 Dose: 200 mg Enalapril Maleate (Vasotec) 2.5 mg PO BID MADHURI Stop: 04/26/19 12:24 Last Admin: 03/27/19 08:35 Dose: 2.5 mg Glucagon (Glucagen) 1 mg IM PRN PRN PRN Reason: Blood Glucose less than 70 Stop: 04/17/19 20:14 Last Admin: 02/28/19 21:12 Dose: 1 mg Lactobacillus Rhamnosus (Culturelle 15b) 1 each GT DAILY MDAHURI Stop: 04/18/19 08:59 Last Admin: 03/27/19 08:35 Dose: 1 each Lorazepam (Ativan) 0.5 mg PO Q4HR PRN; Protocol PRN Reason: Agitation Stop: 05/04/19 12:08 Last Admin: 03/27/19 08:36 Dose: 0.5 mg Magnesium Hydroxide (Milk Of Magnesia) 30 ml GT HS PRN PRN Reason: Constipation Stop: 04/17/19 18:42 Magnesium Oxide (Mag-Oxide) 400 mg GT BID MADHURI Stop: 04/18/19 08:59 Last Admin: 03/27/19 08:35 Dose: 400 mg Mirtazapine (Remeron) 15 mg PO HS MADHURI; Protocol Stop: 05/22/19 20:59 Last Admin: 03/26/19 20:17 Dose: 15 mg Ondansetron HCl (Zofran) 4 mg IV Q6H PRN PRN Reason: Nausea / Vomiting Stop: 04/28/19 06:20 Quetiapine Fumarate (Seroquel) 25 mg PO TID MADHURI; Protocol Stop: 05/22/19 08:59 Last Admin: 03/27/19 08:35 Dose: 25 mg Sodium Phosphate (Fleet Enema) 135 ml RC Q48HR PRN PRN Reason: Constipation Stop: 04/17/19 20:14 General: No acute distress HEENT: Mucous membr. moist/pink Neck: Supple, JVD, +2 carotid pulse wo bruit (flat) Cardiovascular: Regular rate, Normal S1, Normal S2, Systolic murmurs Lungs: Clear to auscultation, Normal air movement Abdomen: Bowel sounds, Soft, Other (G-tube) - Procedures Procedures: Procedures Procedure Code Date INSERTION OF FEEDING DEVICE INTO STOMACH, PERC APPROACH [id number] 01/02/19 INSERTION OF INFUSION DEVICE INTO R LOW ARM, PERC APPROACH [id number] 01/02/19 INTRODUCTION OF NUTRITIONAL INTO PERIPH VEIN, PERC APPROACH [id number] 01/02/19 RESPIRATORY VENTILATION, LESS THAN 24 CONSECUTIVE HOURS [id number] 04/07/18 Assessment/Plan - Assessment Assessment: Uncontrolled hypertension MRSA sepsis Osteomyelitis of the lumbosacral spine Discitis lumbosacral spine Dementia Dysphagia with PEG placement Protein calorie malnutrition Psychosis COPD DVT upper extremity - Plan Plan: Continue antihypertensive treatment continue antibiotics Venous duplex study Discharge planning Nutritional Asmnt/Malnutr-PDOC - Dietary Evaluation Malnutrition Findings (Please click <Entered> for more info): Nutritional Asmnt/Malnutrition Start: 02/17/19 17: 23 Text: Status: Complete Freq: Protocol: Document 02/17/19 17:23 LCHENG (Rec: 02/17/19 17:28 [email or web address]) Nutritional Asmnt/Malnutrition Patient General Information Nutritional Screening High Risk Consult Diagnosis osteomyelitis, central line placement Pertinent Medical Hx/Surgical Hx HTN, asthma/COPD, PUD/GERd, osteomylitis, anemia, PEG/ Gtube, schizophrenia, bipolar Subjective Information Consult received for ricky 12 and open wound. Pt seen resting in bed at time of visit. TF off at this time. Current Diet Order/ Nutrition Support Glucerna 1.2 at 60ml/hr x 20hr Pertinent Medications vit C, colace, heperin, humalog, culturelle, mag-oxide , vancomycin Pertinent Labs 02/17 K 3.4, Cr 0.5, glucose 94 Nutritional Hx/Data Height 1.65 m Height (Calculated Centimeters) 165.1 Current Weight (lbs) 36.741 kg Weight (Calculated Kilograms) 36.7 Weight (Calculated Grams) 45953.0 [place] Body Weight 125 Body Mass Index (BMI) 13.4 Weight Status Underweight GI Symptoms GI Symptoms None Last BM none Difficult in: None Skin Integrity/Comment: left foot and bilat arms bruises pressure area Complex - Includes bone to sacrum, skin tear to right foot ricky 12 Estimated Nutritional Goals Calories/Kcals/Kg 25-30 Kcals Calculated 2858-1284 Protein g/k.2-1.4 Protein Calculated 68-80 Fluid: ml 1425-1710ml (1ml/kcal) Nutritional Problem 1. Problem Problem increased nutrition needs Etiology impaired skin integrity Signs/Symptoms: open wound to sacrum Intervention/Recommendation Comments 1. Continue with current TF regimen with Glucerna 1.2 at 60ml/hr x 20hr. It provides 1440kcal, 72g protein, 966ml free water, meeting 100% of nutritional needs. Add Sadi BID for wound healing. 2. Monitor TF rate, tolerance, wt, skin integrity and labs 3. F/U as high risk in 2-3 days Expected Outcomes/Goals Expected Outcomes/Goals 1. Pt to meet at least 90% of nutritional needs via nutrition support with tolerance 2. Wt stability, skin to remain intact, labs to approach WNL.
--- NOTE | 2019-03-27 17:49 | Internal Medicine Prog Note ---
Internal Medicine Subjective - Subjective Service Date: 03/27/19 Patient is:: awake, in bed, talking, confused Patient Complaints of:: other (Hx of copd.) Per staff patient has:: no adverse event, no episodes of fall, confused Internal Medicine Objective - Results Result Diagrams: 03/26/19 07:00 03/26/19 07:00 Recent Labs: Laboratory Last Values WBC 5.6 Th/cmm (4.8-10.8) 03/26/19 07:00 RBC 4.06 Mil/cmm (3.80-5.10) 03/26/19 07:00 Hgb 13.1 gm/dL (12-16) 03/26/19 07:00 Hct 38.3 % (41.0-60) L 03/26/19 07:00 MCV 94.3 fl (81-100) 03/26/19 07:00 MCH 32.3 pg (27.0-31.0) H 03/26/19 07:00 MCHC Differential 34.3 pg (28.0-36.0) 03/26/19 07:00 RDW 12.1 % (11.5-20.0) 03/26/19 07:00 Plt Count 205 Th/cmm (150-400) 03/26/19 07:00 MPV 8.0 fl 03/26/19 07:00 Neutrophils % 74.7 % (40.0-80.0) 03/26/19 07:00 Lymphocytes % 15.7 % (20.0-50.0) L 03/26/19 07:00 Monocytes % 6.3 % (2.0-10.0) 03/26/19 07:00 Eosinophils % 2.5 % (0.0-5.0) 03/26/19 07:00 Basophils % 0.8 % (0.0-2.0) 03/26/19 07:00 PT 11.3 SECONDS (9.5-11.5) 03/26/19 07:00 INR 1.09 (0.5-1.4) 03/26/19 07:00 PTT (Actin FS) 44.0 SECONDS (26.0-38.0) H 02/15/19 23:40 Sodium 139 mEq/L (136-145) 03/26/19 07:00 Potassium 3.5 mEq/L (3.5-5.1) 03/26/19 07:00 Chloride 102 mEq/L (98-107) 03/26/19 07:00 Carbon Dioxide 29.1 mEq/L (21.0-31.0) 03/26/19 07:00 Anion Gap 11.4 (7.0-16.0) 03/26/19 07:00 BUN 21 mg/dL (7-25) 03/26/19 07:00 Creatinine 0.6 mg/dL (0.6-1.2) 03/26/19 07:00 Est GFR ( Amer) > 60.0 ml/min (>90) 03/26/19 07:00 Est GFR (Non-Af Amer) > 60.0 ml/min 03/26/19 07:00 BUN/Creatinine Ratio 35.0 03/26/19 07:00 Glucose 85 mg/dL (70-105) 03/26/19 07:00 POC Glucose 92 MG/DL (70 - 105) 03/25/19 06:40 Whole Bld Lactic Acid 0.56 mmol/L (0.60-1.99) L 02/16/19 00:00 Calcium 9.8 mg/dL (8.6-10.3) 03/26/19 07:00 Total Bilirubin 0.5 mg/dL (0.3-1.0) 03/06/19 06:10 AST 28 U/L (13-39) 03/06/19 06:10 ALT 40 U/L (7-52) 03/06/19 06:10 Alkaline Phosphatase 110 U/L (34-104) H 03/06/19 06:10 Troponin I 0.01 ng/mL (0.01-0.05) 02/15/19 23:40 Total Protein 6.9 gm/dL (6.0-8.3) 03/06/19 06:10 Albumin 3.5 gm/dL (3.7-5.3) L 03/06/19 06:10 Globulin 3.4 gm/dL 03/06/19 06:10 Albumin/Globulin Ratio 1.0 (1.0-1.8) 03/06/19 06:10 TSH 4.06 uIU/ml (0.34-5.60) 02/15/19 23:40 Vancomycin Trough 17.7 ug/mL (5-10) H 03/02/19 10:00 Random Vancomycin 4.7 ug/mL (5.0-40.0) L 02/16/19 21:15 - Physical Exam Vitals and I&O: Vital Signs Temp 97.3 F 03/27/19 15:23 Pulse 70 03/27/19 16:09 Resp 20 03/27/19 15:23 BP 126/79 03/27/19 16:09 Pulse Ox 100 03/27/19 15:23 Intake & Output 03/26/19 03/27/19 03/27/19 18:59 06:59 18:59 Intake Total 1100 Balance 1100 Weight (lbs) 98 lb 12 oz 98 lb 12 oz Intake: Tube Feeding 800 Other 300 Other: # Voids 2 2 # Bowel Movements 0 Stool Characteristics Soft Soft Soft Brown Brown Brown Weight Source Bedscale Bedscale Active Medications: Current Medications Acetaminophen (Tylenol) 650 mg GT Q6H PRN PRN Reason: mild pain Stop: 04/17/19 18:42 Last Admin: 03/03/19 21:19 Dose: 650 mg Al Hydrox/Mg Hydrox/Simethicone (Maalox) 30 ml GT Q6HR PRN PRN Reason: GI DISTRESS Stop: 04/17/19 18:42 Albuterol Sulfate (Albuterol 2.5mg/3ml Neb Ud) 2.5 mg HHN Q2HR PRN PRN Reason: Shortness of Breath Stop: 04/17/19 18:42 Albuterol Sulfate (Albuterol 2.5mg/3ml Neb Ud) 2.5 mg HHN [id number] MADHURI Stop: 04/17/19 18:59 Last Admin: 03/27/19 14:02 Dose: 2.5 mg Ascorbic Acid (Vitamin C) 500 mg GT Q12HR MADHURI Stop: 04/17/19 20:59 Last Admin: 03/27/19 08:35 Dose: 500 mg Bisacodyl (Dulcolax 10 Mg Supp) 10 mg RC DAILY PRN PRN Reason: Constipation Stop: 04/17/19 20:14 Budesonide (Pulmicort) 0.5 mg HHN BIDRT MADHURI Stop: 04/18/19 06:59 Last Admin: 03/27/19 07:00 Dose: 0.5 mg Carvedilol (Coreg) 6.25 mg GT Q12H MADHURI Stop: 04/17/19 21:59 Last Admin: 03/27/19 09:00 Dose: 6.25 mg [place] Oil/[place] Balsam/Trypsin (Venelex) 1 appl TP DAILY MADHURI Stop: 04/18/19 08:59 Last Admin: 03/27/19 08:36 Dose: 1 appl Docusate Sodium (Colace) 200 mg GT Q12H PRN PRN Reason: Constipation Stop: 04/17/19 20:14 Last Admin: 03/11/19 10:21 Dose: 200 mg Enalapril Maleate (Vasotec) 2.5 mg PO BID MADHURI Stop: 04/26/19 12:24 Last Admin: 03/27/19 16:09 Dose: 2.5 mg Glucagon (Glucagen) 1 mg IM PRN PRN PRN Reason: Blood Glucose less than 70 Stop: 04/17/19 20:14 Last Admin: 02/28/19 21:12 Dose: 1 mg Lactobacillus Rhamnosus (Culturelle 15b) 1 each GT DAILY MADHURI Stop: 04/18/19 08:59 Last Admin: 03/27/19 08:35 Dose: 1 each Lorazepam (Ativan) 0.5 mg PO Q4HR PRN; Protocol PRN Reason: Agitation Stop: 05/04/19 12:08 Last Admin: 03/27/19 08:36 Dose: 0.5 mg Magnesium Hydroxide (Milk Of Magnesia) 30 ml GT HS PRN PRN Reason: Constipation Stop: 04/17/19 18:42 Magnesium Oxide (Mag-Oxide) 400 mg GT BID MADHURI Stop: 04/18/19 08:59 Last Admin: 03/27/19 16:09 Dose: 400 mg Mirtazapine (Remeron) 15 mg PO HS MADHURI; Protocol Stop: 05/22/19 20:59 Last Admin: 03/26/19 20:17 Dose: 15 mg Ondansetron HCl (Zofran) 4 mg IV Q6H PRN PRN Reason: Nausea / Vomiting Stop: 04/28/19 06:20 Quetiapine Fumarate (Seroquel) 25 mg PO TID MADHURI; Protocol Stop: 05/22/19 08:59 Last Admin: 03/27/19 13:00 Dose: 25 mg Sodium Phosphate (Fleet Enema) 135 ml RC Q48HR PRN PRN Reason: Constipation Stop: 04/17/19 20:14 General: weak, demented HEENT: NC/AT, PERRLA Neck: Supple, No JVD Lungs: other (No acute respiratory distress. On RA) Cardiovascular: RRR Abdomen: soft, non-tender Extremities: edema Neurological: no change, unable to follow command, other - Procedures Procedures: Procedures Procedure Code Date INSERTION OF FEEDING DEVICE INTO STOMACH, PERC APPROACH [id number] 01/02/19 INSERTION OF INFUSION DEVICE INTO R LOW ARM, PERC APPROACH [id number] 01/02/19 INTRODUCTION OF NUTRITIONAL INTO PERIPH VEIN, PERC APPROACH [id number] 01/02/19 RESPIRATORY VENTILATION, LESS THAN 24 CONSECUTIVE HOURS [id number] 04/07/18 Internal Medicine Assmt/Plan - Assessment Assessment: OSTEOMYELITIS OF LUMBAR SPINE MRSA SEPSIS DYSPHAGIA DEMENTIA MODERATE PROTEIN CALORIE MALNUTRITION COPD S/P DECCANULATION - Plan Plan: placement issues continue current plan of care Nutritional Asmnt/Malnutr-PDOC - Dietary Evaluation Malnutrition Findings (Please click <Entered> for more info): Nutritional Asmnt/Malnutrition Start: 02/17/19 17: 23 Text: Status: Complete Freq: Protocol: Document 02/17/19 17:23 LCHENG (Rec: 02/17/19 17:28 [email or web address]) Nutritional Asmnt/Malnutrition Patient General Information Nutritional Screening High Risk Consult Diagnosis osteomyelitis, central line placement Pertinent Medical Hx/Surgical Hx HTN, asthma/COPD, PUD/GERd, osteomylitis, anemia, PEG/ Gtube, schizophrenia, bipolar Subjective Information Consult received for ricky 12 and open wound. Pt seen resting in bed at time of visit. TF off at this time. Current Diet Order/ Nutrition Support Glucerna 1.2 at 60ml/hr x 20hr Pertinent Medications vit C, colace, heperin, humalog, culturelle, mag-oxide , vancomycin Pertinent Labs 02/17 K 3.4, Cr 0.5, glucose 94 Nutritional Hx/Data Height 5 ft 5 in Height (Calculated Centimeters) 165.1 Current Weight (lbs) 81 lb Weight (Calculated Kilograms) 36.7 Weight (Calculated Grams) 88891.0 [place] Body Weight 125 Body Mass Index (BMI) 13.4 Weight Status Underweight GI Symptoms GI Symptoms None Last BM none Difficult in: None Skin Integrity/Comment: left foot and bilat arms bruises pressure area Complex - Includes bone to sacrum, skin tear to right foot ricky 12 Estimated Nutritional Goals Calories/Kcals/Kg 25-30 Kcals Calculated 0844-8248 Protein g/k.2-1.4 Protein Calculated 68-80 Fluid: ml 1425-1710ml (1ml/kcal) Nutritional Problem 1. Problem Problem increased nutrition needs Etiology impaired skin integrity Signs/Symptoms: open wound to sacrum Intervention/Recommendation Comments 1. Continue with current TF regimen with Glucerna 1.2 at 60ml/hr x 20hr. It provides 1440kcal, 72g protein, 966ml free water, meeting 100% of nutritional needs. Add Sadi BID for wound healing. 2. Monitor TF rate, tolerance, wt, skin integrity and labs 3. F/U as high risk in 2-3 days Expected Outcomes/Goals Expected Outcomes/Goals 1. Pt to meet at least 90% of nutritional needs via nutrition support with tolerance 2. Wt stability, skin to remain intact, labs to approach WNL.
--- NOTE | 2019-03-28 06:29 | Progress Notes ---
DATE: 03/27/2019 FOLLOWUP PROGRESS NOTE Case was discussed with staff of the patient, reviewed records. The patient continues to doing more or less the same, continues to be unpredictable and impulsive. She has mittens. She tends to pull her tubes and IV, she does not know any better; however, she is showing progress and it waxes and wanes, no side effects with the medication. Thank you very much for allowing me to participate in the care of this most interesting lady. The patient needs to follow up with her psychiatrist upon discharge. JOB# [id number]
[2019-03-28] MEDS: Albuterol Nebulizer 2.5mg/3mL HHN SCH ×3 (07:30→15:42)
[2019-03-28] MEDS: Budesonide 0.5 Mg/2 mL Ud HHN SCH (07:42)
[2019-03-28] MEDS: Multivitamin w/ Minerals Tab GT SCH (08:20)
[2019-03-28] MEDS: Lactobacillus Rhamnosus GG 15 Billion CFU CAP.SPRINK GT SCH (08:20)
[2019-03-28] MEDS: Venelex 60gm Tube TP SCH (08:21)
--- NOTE | 2019-03-28 11:18 | Internal Medicine Prog Note ---
Internal Medicine Subjective - Subjective Service Date: 03/28/19 Patient seen and examined:: with staff Patient is:: awake, in bed, talking, confused Patient Complaints of:: other (Hx of copd.) Per staff patient has:: no adverse event, no episodes of fall, confused Internal Medicine Objective - Results Result Diagrams: 03/26/19 07:00 03/26/19 07:00 Recent Labs: Laboratory Last Values WBC 5.6 Th/cmm (4.8-10.8) 03/26/19 07:00 RBC 4.06 Mil/cmm (3.80-5.10) 03/26/19 07:00 Hgb 13.1 gm/dL (12-16) 03/26/19 07:00 Hct 38.3 % (41.0-60) L 03/26/19 07:00 MCV 94.3 fl (81-100) 03/26/19 07:00 MCH 32.3 pg (27.0-31.0) H 03/26/19 07:00 MCHC Differential 34.3 pg (28.0-36.0) 03/26/19 07:00 RDW 12.1 % (11.5-20.0) 03/26/19 07:00 Plt Count 205 Th/cmm (150-400) 03/26/19 07:00 MPV 8.0 fl 03/26/19 07:00 Neutrophils % 74.7 % (40.0-80.0) 03/26/19 07:00 Lymphocytes % 15.7 % (20.0-50.0) L 03/26/19 07:00 Monocytes % 6.3 % (2.0-10.0) 03/26/19 07:00 Eosinophils % 2.5 % (0.0-5.0) 03/26/19 07:00 Basophils % 0.8 % (0.0-2.0) 03/26/19 07:00 PT 11.3 SECONDS (9.5-11.5) 03/26/19 07:00 INR 1.09 (0.5-1.4) 03/26/19 07:00 PTT (Actin FS) 44.0 SECONDS (26.0-38.0) H 02/15/19 23:40 Sodium 139 mEq/L (136-145) 03/26/19 07:00 Potassium 3.5 mEq/L (3.5-5.1) 03/26/19 07:00 Chloride 102 mEq/L (98-107) 03/26/19 07:00 Carbon Dioxide 29.1 mEq/L (21.0-31.0) 03/26/19 07:00 Anion Gap 11.4 (7.0-16.0) 03/26/19 07:00 BUN 21 mg/dL (7-25) 03/26/19 07:00 Creatinine 0.6 mg/dL (0.6-1.2) 03/26/19 07:00 Est GFR ( Amer) > 60.0 ml/min (>90) 03/26/19 07:00 Est GFR (Non-Af Amer) > 60.0 ml/min 03/26/19 07:00 BUN/Creatinine Ratio 35.0 03/26/19 07:00 Glucose 85 mg/dL (70-105) 03/26/19 07:00 POC Glucose 92 MG/DL (70 - 105) 03/25/19 06:40 Whole Bld Lactic Acid 0.56 mmol/L (0.60-1.99) L 02/16/19 00:00 Calcium 9.8 mg/dL (8.6-10.3) 03/26/19 07:00 Total Bilirubin 0.5 mg/dL (0.3-1.0) 03/06/19 06:10 AST 28 U/L (13-39) 03/06/19 06:10 ALT 40 U/L (7-52) 03/06/19 06:10 Alkaline Phosphatase 110 U/L (34-104) H 03/06/19 06:10 Troponin I 0.01 ng/mL (0.01-0.05) 02/15/19 23:40 Total Protein 6.9 gm/dL (6.0-8.3) 03/06/19 06:10 Albumin 3.5 gm/dL (3.7-5.3) L 03/06/19 06:10 Globulin 3.4 gm/dL 03/06/19 06:10 Albumin/Globulin Ratio 1.0 (1.0-1.8) 03/06/19 06:10 TSH 4.06 uIU/ml (0.34-5.60) 02/15/19 23:40 Vancomycin Trough 17.7 ug/mL (5-10) H 03/02/19 10:00 Random Vancomycin 4.7 ug/mL (5.0-40.0) L 02/16/19 21:15 - Physical Exam Vitals and I&O: Vital Signs Temp 97.4 F 03/28/19 08:00 Pulse 60 03/28/19 11:13 Resp 18 03/28/19 11:13 BP 113/75 03/28/19 08:00 Pulse Ox 98 03/28/19 11:13 Intake & Output 03/27/19 03/28/19 03/28/19 18:59 06:59 18:59 Intake Total 1250 Output Total 2 Balance 1250 -2 Weight (lbs) 44.792 kg 44.452 kg Intake: Tube Feeding 750 Other 500 Output: Urine 2 Other: # Voids 2 # Bowel Movements 0 0 Stool Characteristics Soft Soft Brown Brown Weight Source Bedscale Bedscale Active Medications: Current Medications Acetaminophen (Tylenol) 650 mg GT Q6H PRN PRN Reason: mild pain Stop: 04/17/19 18:42 Last Admin: 03/03/19 21:19 Dose: 650 mg Al Hydrox/Mg Hydrox/Simethicone (Maalox) 30 ml GT Q6HR PRN PRN Reason: GI DISTRESS Stop: 04/17/19 18:42 Albuterol Sulfate (Albuterol 2.5mg/3ml Neb Ud) 2.5 mg HHN Q2HR PRN PRN Reason: Shortness of Breath Stop: 04/17/19 18:42 Albuterol Sulfate (Albuterol 2.5mg/3ml Neb Ud) 2.5 mg HHN [id number] [facility] Stop: 04/17/19 18:59 Last Admin: 03/28/19 11:13 Dose: 2.5 mg Ascorbic Acid (Vitamin C) 500 mg GT Q12HR MADHURI Stop: 04/17/19 20:59 Last Admin: 03/28/19 08:20 Dose: 500 mg Bisacodyl (Dulcolax 10 Mg Supp) 10 mg RC DAILY PRN PRN Reason: Constipation Stop: 04/17/19 20:14 Budesonide (Pulmicort) 0.5 mg HHN BIDRT MADHURI Stop: 04/18/19 06:59 Last Admin: 03/28/19 07:42 Dose: 0.5 mg Carvedilol (Coreg) 6.25 mg GT Q12H MADHURI Stop: 04/17/19 21:59 Last Admin: 03/27/19 21:17 Dose: 6.25 mg [place] Oil/[place] Balsam/Trypsin (Venelex) 1 appl TP DAILY MADHURI Stop: 04/18/19 08:59 Last Admin: 03/28/19 08:21 Dose: 1 appl Docusate Sodium (Colace) 200 mg GT Q12H PRN PRN Reason: Constipation Stop: 04/17/19 20:14 Last Admin: 03/11/19 10:21 Dose: 200 mg Glucagon (Glucagen) 1 mg IM PRN PRN PRN Reason: Blood Glucose less than 70 Stop: 04/17/19 20:14 Last Admin: 02/28/19 21:12 Dose: 1 mg Lactobacillus Rhamnosus (Culturelle 15b) 1 each GT DAILY MADHURI Stop: 04/18/19 08:59 Last Admin: 03/28/19 08:20 Dose: 1 each Lorazepam (Ativan) 0.5 mg PO Q4HR PRN; Protocol PRN Reason: Agitation Stop: 05/04/19 12:08 Last Admin: 03/27/19 08:36 Dose: 0.5 mg Magnesium Hydroxide (Milk Of Magnesia) 30 ml GT HS PRN PRN Reason: Constipation Stop: 04/17/19 18:42 Magnesium Oxide (Mag-Oxide) 400 mg GT BID MADHURI Stop: 04/18/19 08:59 Last Admin: 03/28/19 08:20 Dose: 400 mg Mirtazapine (Remeron) 15 mg PO HS MADHURI; Protocol Stop: 05/22/19 20:59 Last Admin: 03/27/19 21:16 Dose: 15 mg Ondansetron HCl (Zofran) 4 mg IV Q6H PRN PRN Reason: Nausea / Vomiting Stop: 04/28/19 06:20 Quetiapine Fumarate (Seroquel) 25 mg PO TID MADHURI; Protocol Stop: 05/22/19 08:59 Last Admin: 03/28/19 08:20 Dose: 25 mg Sodium Phosphate (Fleet Enema) 135 ml RC Q48HR PRN PRN Reason: Constipation Stop: 04/17/19 20:14 Physical Exam: 58 y/o female patient is agitated and has mild edema of the left upper extremity , Dvt of upper extremity which patient is getting treatment for and has been improving. General: weak, demented HEENT: NC/AT, PERRLA Neck: Supple, No JVD Lungs: other (No acute respiratory distress. On RA) Cardiovascular: RRR Abdomen: soft, non-tender Extremities: edema Neurological: no change, unable to follow command, other - Procedures Procedures: Procedures Procedure Code Date INSERTION OF FEEDING DEVICE INTO STOMACH, PERC APPROACH [id number] 01/02/19 INSERTION OF INFUSION DEVICE INTO R LOW ARM, PERC APPROACH [id number] 01/02/19 INTRODUCTION OF NUTRITIONAL INTO PERIPH VEIN, PERC APPROACH [id number] 01/02/19 RESPIRATORY VENTILATION, LESS THAN 24 CONSECUTIVE HOURS [id number] 04/07/18 Internal Medicine Assmt/Plan - Assessment Assessment: G-tube status Edema of Left upper extremity Hypertension. MRSA sepsis, treated Diskitis. Osteomyelitis of lumbar spine Anemia. Protein Malnutrition. S/p Deccanulation. S/p Percutaneous Endoscopic gastrostomy. Less agitated Dementia Psychosis Chronic Copd Protein-calorie malnutrition Failure to thrive DVT of upper extremity - Plan Plan: Continuation of care Continue present meds as directed Monitor Pain Continue to follow up with Psych Monitor Vitals, Labs and Pain management Fall precaution Continue present care management Nutritional Asmnt/Malnutr-PDOC - Dietary Evaluation Malnutrition Findings (Please click <Entered> for more info): Nutritional Asmnt/Malnutrition Start: 02/17/19 17: 23 Text: Status: Complete Freq: Protocol: Document 02/17/19 17:23 LCHENG (Rec: 02/17/19 17:28 [email or web address] [email or web address]) Nutritional Asmnt/Malnutrition Patient General Information Nutritional Screening High Risk Consult Diagnosis osteomyelitis, central line placement Pertinent Medical Hx/Surgical Hx HTN, asthma/COPD, PUD/GERd, osteomylitis, anemia, PEG/ Gtube, schizophrenia, bipolar Subjective Information Consult received for ricky 12 and open wound. Pt seen resting in bed at time of visit. TF off at this time. Current Diet Order/ Nutrition Support Glucerna 1.2 at 60ml/hr x 20hr Pertinent Medications vit C, colace, heperin, humalog, culturelle, mag-oxide , vancomycin Pertinent Labs 02/17 K 3.4, Cr 0.5, glucose 94 Nutritional Hx/Data Height 1.65 m Height (Calculated Centimeters) 165.1 Current Weight (lbs) 36.741 kg Weight (Calculated Kilograms) 36.7 Weight (Calculated Grams) 89845.0 [place] Body Weight 125 Body Mass Index (BMI) 13.4 Weight Status Underweight GI Symptoms GI Symptoms None Last BM none Difficult in: None Skin Integrity/Comment: left foot and bilat arms bruises pressure area Complex - Includes bone to sacrum, skin tear to right foot ricky 12 Estimated Nutritional Goals Calories/Kcals/Kg 25-30 Kcals Calculated 5134-6349 Protein g/k.2-1.4 Protein Calculated 68-80 Fluid: ml 1425-1710ml (1ml/kcal) Nutritional Problem 1. Problem Problem increased nutrition needs Etiology impaired skin integrity Signs/Symptoms: open wound to sacrum Intervention/Recommendation Comments 1. Continue with current TF regimen with Glucerna 1.2 at 60ml/hr x 20hr. It provides 1440kcal, 72g protein, 966ml free water, meeting 100% of nutritional needs. Add Sadi BID for wound healing. 2. Monitor TF rate, tolerance, wt, skin integrity and labs 3. F/U as high risk in 2-3 days Expected Outcomes/Goals Expected Outcomes/Goals 1. Pt to meet at least 90% of nutritional needs via nutrition support with tolerance 2. Wt stability, skin to remain intact, labs to approach WNL.
--- NOTE | 2019-03-28 15:51 | General Progress Note ---
Subjective - Review of Systems Service Date: 03/28/19 Subjective: Patient exam aimed discussed with the nurse chart reviewed patient's clinically unchanged Patient has swelling of the left upper extremity patient's IV site infiltrated in the same arm DVT Objective - Results Result Diagrams: 03/26/19 07:00 03/26/19 07:00 Recent Labs: Laboratory Last Values WBC 5.6 Th/cmm (4.8-10.8) 03/26/19 07:00 RBC 4.06 Mil/cmm (3.80-5.10) 03/26/19 07:00 Hgb 13.1 gm/dL (12-16) 03/26/19 07:00 Hct 38.3 % (41.0-60) L 03/26/19 07:00 MCV 94.3 fl (81-100) 03/26/19 07:00 MCH 32.3 pg (27.0-31.0) H 03/26/19 07:00 MCHC Differential 34.3 pg (28.0-36.0) 03/26/19 07:00 RDW 12.1 % (11.5-20.0) 03/26/19 07:00 Plt Count 205 Th/cmm (150-400) 03/26/19 07:00 MPV 8.0 fl 03/26/19 07:00 Neutrophils % 74.7 % (40.0-80.0) 03/26/19 07:00 Lymphocytes % 15.7 % (20.0-50.0) L 03/26/19 07:00 Monocytes % 6.3 % (2.0-10.0) 03/26/19 07:00 Eosinophils % 2.5 % (0.0-5.0) 03/26/19 07:00 Basophils % 0.8 % (0.0-2.0) 03/26/19 07:00 PT 11.3 SECONDS (9.5-11.5) 03/26/19 07:00 INR 1.09 (0.5-1.4) 03/26/19 07:00 PTT (Actin FS) 44.0 SECONDS (26.0-38.0) H 02/15/19 23:40 Sodium 139 mEq/L (136-145) 03/26/19 07:00 Potassium 3.5 mEq/L (3.5-5.1) 03/26/19 07:00 Chloride 102 mEq/L (98-107) 03/26/19 07:00 Carbon Dioxide 29.1 mEq/L (21.0-31.0) 03/26/19 07:00 Anion Gap 11.4 (7.0-16.0) 03/26/19 07:00 BUN 21 mg/dL (7-25) 03/26/19 07:00 Creatinine 0.6 mg/dL (0.6-1.2) 03/26/19 07:00 Est GFR ( Amer) > 60.0 ml/min (>90) 03/26/19 07:00 Est GFR (Non-Af Amer) > 60.0 ml/min 03/26/19 07:00 BUN/Creatinine Ratio 35.0 03/26/19 07:00 Glucose 85 mg/dL (70-105) 03/26/19 07:00 POC Glucose 92 MG/DL (70 - 105) 03/25/19 06:40 Whole Bld Lactic Acid 0.56 mmol/L (0.60-1.99) L 02/16/19 00:00 Calcium 9.8 mg/dL (8.6-10.3) 03/26/19 07:00 Total Bilirubin 0.5 mg/dL (0.3-1.0) 03/06/19 06:10 AST 28 U/L (13-39) 03/06/19 06:10 ALT 40 U/L (7-52) 03/06/19 06:10 Alkaline Phosphatase 110 U/L (34-104) H 03/06/19 06:10 Troponin I 0.01 ng/mL (0.01-0.05) 02/15/19 23:40 Total Protein 6.9 gm/dL (6.0-8.3) 03/06/19 06:10 Albumin 3.5 gm/dL (3.7-5.3) L 03/06/19 06:10 Globulin 3.4 gm/dL 03/06/19 06:10 Albumin/Globulin Ratio 1.0 (1.0-1.8) 03/06/19 06:10 TSH 4.06 uIU/ml (0.34-5.60) 02/15/19 23:40 Vancomycin Trough 17.7 ug/mL (5-10) H 03/02/19 10:00 Random Vancomycin 4.7 ug/mL (5.0-40.0) L 02/16/19 21:15 - Physical Exam Vitals and I&O: Vital Signs Temp 97.6 F 03/28/19 11:48 Pulse 65 03/28/19 15:43 Resp 18 03/28/19 15:43 BP 96/59 03/28/19 11:48 Pulse Ox 98 03/28/19 15:43 Intake & Output 03/27/19 03/28/19 03/28/19 18:59 06:59 18:59 Intake Total 1250 Output Total 2 Balance 1250 -2 Weight (lbs) 44.792 kg 44.452 kg Intake: Tube Feeding 750 Other 500 Output: Urine 2 Other: # Voids 2 # Bowel Movements 0 0 Stool Characteristics Soft Soft Brown Brown Weight Source Bedscale Bedscale Active Medications: Current Medications Acetaminophen (Tylenol) 650 mg GT Q6H PRN PRN Reason: mild pain Stop: 04/17/19 18:42 Last Admin: 03/03/19 21:19 Dose: 650 mg Al Hydrox/Mg Hydrox/Simethicone (Maalox) 30 ml GT Q6HR PRN PRN Reason: GI DISTRESS Stop: 04/17/19 18:42 Albuterol Sulfate (Albuterol 2.5mg/3ml Neb Ud) 2.5 mg HHN Q2HR PRN PRN Reason: Shortness of Breath Stop: 04/17/19 18:42 Albuterol Sulfate (Albuterol 2.5mg/3ml Neb Ud) 2.5 mg HHN [id number] MADHURI Stop: 04/17/19 18:59 Last Admin: 03/28/19 15:42 Dose: 2.5 mg Ascorbic Acid (Vitamin C) 500 mg GT Q12HR MADHURI Stop: 04/17/19 20:59 Last Admin: 03/28/19 08:20 Dose: 500 mg Bisacodyl (Dulcolax 10 Mg Supp) 10 mg RC DAILY PRN PRN Reason: Constipation Stop: 04/17/19 20:14 Budesonide (Pulmicort) 0.5 mg HHN BIDRT MADHURI Stop: 04/18/19 06:59 Last Admin: 03/28/19 07:42 Dose: 0.5 mg Carvedilol (Coreg) 6.25 mg GT Q12H MADHURI Stop: 04/17/19 21:59 Last Admin: 03/27/19 21:17 Dose: 6.25 mg [place] Oil/[place] Balsam/Trypsin (Venelex) 1 appl TP DAILY MADHURI Stop: 04/18/19 08:59 Last Admin: 03/28/19 08:21 Dose: 1 appl Docusate Sodium (Colace) 200 mg GT Q12H PRN PRN Reason: Constipation Stop: 04/17/19 20:14 Last Admin: 03/11/19 10:21 Dose: 200 mg Glucagon (Glucagen) 1 mg IM PRN PRN PRN Reason: Blood Glucose less than 70 Stop: 04/17/19 20:14 Last Admin: 02/28/19 21:12 Dose: 1 mg Lactobacillus Rhamnosus (Culturelle 15b) 1 each GT DAILY MADHURI Stop: 04/18/19 08:59 Last Admin: 03/28/19 08:20 Dose: 1 each Lorazepam (Ativan) 0.5 mg PO Q4HR PRN; Protocol PRN Reason: Agitation Stop: 05/04/19 12:08 Last Admin: 03/27/19 08:36 Dose: 0.5 mg Magnesium Hydroxide (Milk Of Magnesia) 30 ml GT HS PRN PRN Reason: Constipation Stop: 04/17/19 18:42 Magnesium Oxide (Mag-Oxide) 400 mg GT BID MADHURI Stop: 04/18/19 08:59 Last Admin: 03/28/19 08:20 Dose: 400 mg Mirtazapine (Remeron) 15 mg PO HS MADHURI; Protocol Stop: 05/22/19 20:59 Last Admin: 03/27/19 21:16 Dose: 15 mg Ondansetron HCl (Zofran) 4 mg IV Q6H PRN PRN Reason: Nausea / Vomiting Stop: 04/28/19 06:20 Quetiapine Fumarate (Seroquel) 25 mg PO TID [facility]; Protocol Stop: 05/22/19 08:59 Last Admin: 03/28/19 15:14 Dose: 25 mg Sodium Phosphate (Fleet Enema) 135 ml RC Q48HR PRN PRN Reason: Constipation Stop: 04/17/19 20:14 General: No acute distress HEENT: Mucous membr. moist/pink Neck: Supple, JVD, +2 carotid pulse wo bruit (flat) Cardiovascular: Regular rate, Normal S1, Normal S2, Systolic murmurs Lungs: Clear to auscultation, Normal air movement Abdomen: Bowel sounds, Soft, Other (G-tube) - Procedures Procedures: Procedures Procedure Code Date INSERTION OF FEEDING DEVICE INTO STOMACH, PERC APPROACH [id number] 01/02/19 INSERTION OF INFUSION DEVICE INTO R LOW ARM, PERC APPROACH [id number] 01/02/19 INTRODUCTION OF NUTRITIONAL INTO PERIPH VEIN, PERC APPROACH [id number] 01/02/19 RESPIRATORY VENTILATION, LESS THAN 24 CONSECUTIVE HOURS [id number] 04/07/18 Assessment/Plan - Assessment Assessment: Uncontrolled hypertension MRSA sepsis Osteomyelitis of the lumbosacral spine Discitis lumbosacral spine Dementia Dysphagia with PEG placement Protein calorie malnutrition Psychosis COPD DVT upper extremity - Plan Plan: Continue antihypertensive treatment continue antibiotics Venous duplex study Discharge planning Nutritional Asmnt/Malnutr-PDOC - Dietary Evaluation Malnutrition Findings (Please click <Entered> for more info): Nutritional Asmnt/Malnutrition Start: 02/17/19 17: 23 Text: Status: Complete Freq: Protocol: Document 02/17/19 17:23 LCHENG (Rec: 02/17/19 17:28 LCHENG [email or web address]) Nutritional Asmnt/Malnutrition Patient General Information Nutritional Screening High Risk Consult Diagnosis osteomyelitis, central line placement Pertinent Medical Hx/Surgical Hx HTN, asthma/COPD, PUD/GERd, osteomylitis, anemia, PEG/ Gtube, schizophrenia, bipolar Subjective Information Consult received for ricky 12 and open wound. Pt seen resting in bed at time of visit. TF off at this time. Current Diet Order/ Nutrition Support Glucerna 1.2 at 60ml/hr x 20hr Pertinent Medications vit C, colace, heperin, humalog, culturelle, mag-oxide , vancomycin Pertinent Labs 02/17 K 3.4, Cr 0.5, glucose 94 Nutritional Hx/Data Height 1.65 m Height (Calculated Centimeters) 165.1 Current Weight (lbs) 36.741 kg Weight (Calculated Kilograms) 36.7 Weight (Calculated Grams) 85478.0 [place] Body Weight 125 Body Mass Index (BMI) 13.4 Weight Status Underweight GI Symptoms GI Symptoms None Last BM none Difficult in: None Skin Integrity/Comment: left foot and bilat arms bruises pressure area Complex - Includes bone to sacrum, skin tear to right foot ricky 12 Estimated Nutritional Goals Calories/Kcals/Kg 25-30 Kcals Calculated 7734-9405 Protein g/k.2-1.4 Protein Calculated 68-80 Fluid: ml 1425-1710ml (1ml/kcal) Nutritional Problem 1. Problem Problem increased nutrition needs Etiology impaired skin integrity Signs/Symptoms: open wound to sacrum Intervention/Recommendation Comments 1. Continue with current TF regimen with Glucerna 1.2 at 60ml/hr x 20hr. It provides 1440kcal, 72g protein, 966ml free water, meeting 100% of nutritional needs. Add Sadi BID for wound healing. 2. Monitor TF rate, tolerance, wt, skin integrity and labs 3. F/U as high risk in 2-3 days Expected Outcomes/Goals Expected Outcomes/Goals 1. Pt to meet at least 90% of nutritional needs via nutrition support with tolerance 2. Wt stability, skin to remain intact, labs to approach WNL.
--- NOTE | 2019-03-29 01:36 | Progress Notes ---
DATE: 03/28/2019 SUBJECTIVE: Case was discussed with staff of the patient, reviewed records. The patient continues to be confused, continues to be unable to make safe plan for self-care, continues to be unpredictable, impulsive, needing redirection. Continues to have poor insight in general. She has to be monitored all the time. She continues to have episodes of agitation, irritability. No side effects of the medication, no sedation or nausea. Thank you very much for allowing me to participate in the care of this most interesting lady. JOB# [id number]
== END 2019-03-28 16:41 | DRG 871 ==
LOC: ER 22:06 → TELE 02-16 02:45 → MSI 02-18 16:20
PROVIDERS: ADMIT Internal Medicine; ATTEND Internal Medicine
PROC: 05HY33Z Insertion of Infusion Device into Upper Vein, Percutaneous Approach (ICD-10-PCS; principal; 2019-02-16)
DX: A41.02 Sepsis due to Methicillin resistant Staphylococcus aureus (principal); E43 Unspecified severe protein-calorie malnutrition; R64 Cachexia; Z68.1 Body mass index [BMI] 19.9 or less, adult; M86.8X6 Other osteomyelitis, lower leg; M46.27 Osteomyelitis of vertebra, lumbosacral region; I82.622 Acute embolism and thrombosis of deep veins of left upper extremity; M46.47 Discitis, unspecified, lumbosacral region; D64.9 Anemia, unspecified; J44.9 Chronic obstructive pulmonary disease, unspecified; F03.90 Unspecified dementia, unspecified severity, without behavioral disturbance, psychotic disturbance, mood disturbance, and anxiety; R62.7 Adult failure to thrive; F29 Unspecified psychosis not due to a substance or known physiological condition; F41.9 Anxiety disorder, unspecified; R13.10 Dysphagia, unspecified; I10 Essential (primary) hypertension; Z93.1 Gastrostomy status; Z87.11 Personal history of peptic ulcer disease; Z85.21 Personal history of malignant neoplasm of larynx
CPT/HCPCS: 36415-UA; 80048-TC; 80053-TC; 80202-TC; 82947-TC; 82948-90; 83605; 84443-TC; 84484-TC; 85025-TC; 85610-TC; 85730-TC; 93970-TC-50; 94640; 94760; A4217; J0696; J1610; J1644; J2060; J2270; J3370; J7613; J7799; Z7610